=== PATIENT | female | born 1950 | race Caucasian/White ===

== ENCOUNTER 2016-08-23 09:01 | Emergency (ER) | payer OTHER ==
[~2016-08-23] VITALS: Ht 160 cm; Wt 60.0 kg
[2016-08-23 09:12] VITALS: Ht 160 cm; Wt 60.0 kg
[2016-08-23] MEDS ORDERED: ACETAMINOPHEN 325 MG TAB PO ONE (11:00)
--- NOTE | 2016-08-23 11:37 | RADRPT ---
PROCEDURE: XR Elbow. CLINICAL INDICATION: Pain TECHNIQUE: AP, lateral and oblique views of the right elbow performed. COMPARISON: None. FINDINGS: There is normal mineralization and alignment. No fracture or osseous lesion is identified. There are normal joints without evidence of arthritis or effusion. The soft tissues are unremarkable. IMPRESSION: Unremarkable examination. RPTAT: AA .Gertrude Martinez MD, Date Time Electronically viewed and signed by .Gertrude Martinez MD, MD on 08/23/2016 11:36 .Ludwig/
[2016-08-23] MEDS ORDERED: ACET325T33 PO (11:40)
--- NOTE | 2016-08-23 11:47 | ERD ---
ER Documentation Chief Complaint Date/Time DATE: 08/23/16 TIME: 11:44 Chief Complaint RIGHT ARM PAIN HPI Patient is a 65-year-old female who presents with pain at her right elbow that radiates to her right forearm that began yesterday. She denies any trauma but states the pain woke up after she slept on it. Pain is 8 out of 10 and worse with movement. She denies any numbness or tingling. She denies any chest pain or shortness of breath. She takes Tylenol at home which temporarily helps with the pain. Denies any fever, redness, or swelling ROS All systems reviewed and are negative except as per history of present illness. Medications Home Meds Active Scripts Acetaminophen* (Tylenol*) 325 Mg Tablet, 2 TAB PO Q6 Y for PAIN AND OR ELEVATED TEMP, #30 TAB Prov:JARAD RICARDO PA-C 08/23/16 Allergies Allergies: Coded Allergies: vancomycin (Unverified Allergy, Severe, TACHYCARDIA AND SWELLING, 04/14/16) hydrocodone (Verified Allergy, Intermediate, 04/14/16) NAUSEA tramadol (Verified Allergy, Intermediate, 04/14/16) NAUSEA codeine (Verified Allergy, Mild, DIAPHORESIS, 04/14/16) naproxen (Unverified Allergy, Unknown, REDNESS, DIAPHORESIS, 04/14/16) PMhx/Soc History of Surgery: No (hernia,utrine surgery) Anesthesia Reaction: No Hx 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 Disorder: No Hx Respiratory Disorders: No Hx Cardiac Disorders: No Hx Psychiatric Problems: No Hx Miscellaneous Medical Probl: No Hx Alcohol Use: No Hx Substance Use: No Hx Tobacco Use: No FmHx Family History: No diabetes Physical Exam Vitals Vital Signs Date Time Temp Pulse Resp B/P Pulse Ox O2 Delivery O2 Flow Rate FiO2 08/23/16 09:12 98.6 72 19 133/63 98 Physical Exam General: well developed, well nourished, alert, nontoxic, no distress Head: normocephalic, atraumatic Neck: Supple, nontender, no lymphadenopathy, no midline tenderness Respiratory: Clear to auscaultation bilaterally, speaks in full sentences, no use of accesory muscles or labored breathing, no rales, ronchi, or wheezing Cardiovascular: RRR, No murmurs Extremities: Right arm: Full range of motion in elbow, no bony abnormalities, sensation to light touch intact, no erythema tenderness or induration throughout right upper extremity. Able to make a fist, capillary refill less than 2 seconds, radial pulse 2+ Results 24 hrs Current Medications Medications (Trade) Dose Ordered Sig/Juana Route PRN Reason Start Time Stop Time Status Last Admin Dose Admin Acetaminophen (Tylenol Tab) 650 mg ONCE ONCE PO 08/23/16 11:00 08/23/16 11:02 DC 08/23/16 11:22 Procedures/MDM Patient presents with pain in her right upper extremity. Her examination has no concern for infectious etiology including cellulitis or deep space infection. Furthermore low suspicion for DVT. Patient's vital signs are all within normal limits that she is well-appearing in no distress. She was given Tylenol here in the emergency room and an x-ray was obtained of the elbow which was unremarkable. Patient was placed in a sling for comfort discharged with prescription for Tylenol and copy of radiology report so that she can follow up with her primary care doctor.Recommended this patient follow up with her primary care doctor within 48 hours or return to the emergency room for any worsening of symptoms. However this time I do believe there is suitable for outpatient management. I answered all their questions and they agreed with the plan and were discharged home. Departure Diagnosis: Primary Impression: Myalgia Condition: Stable Patient Instructions: Myalgias Additional Instructions: Call your primary care doctor TOMORROW for an appointment during the next 1-2 days.See the doctor sooner or return here if your condition worsens before your appointment time. JARAD RICARDO PA-C Aug 23, 2016 11:47
== END 2016-08-23 12:00 | disposition home or self-care (01) ==
LOC: FTE 09:01
DX: M79.1 Myalgia (principal)
CPT/HCPCS: 73080; Z7502; Z7610

== ENCOUNTER 2016-08-29 08:59 | Inpatient (IN) | payer OTHER ==
[2016-08-28 09:07] VITALS: BMI 18.3
[2016-08-29] VITALS (18 sets, daily range): BP systolic 100–128; BP diastolic 48–70; PULSE 56–80; RESP 17–26; Ht 160 cm; Wt 43.0 kg
[~2016-08-29] VITALS: Ht 160 cm; Wt 43.0 kg
[2016-08-29] MEDS: SOD CHLORIDE 0.9% 1,000 ML IV SCH ×2 (07:30→20:50)
[~2016-08-29 08:59] MED LIST: ACET325T33 PO; AMPICILLIN/SULB 3 GM/NS (PMX) 100 ML IVPB ONE; CEFAZOLIN 1 GM INJ ONE; GLYCOPYRROLATE 0.4 MG INJ ONE; LIDOCAINE 2% (SDV) 5 ML INJ ONE; NEOSTIGMINE 3 MG/3 ML SYRINGE ONE; PROPOFOL 200 MG INJ ONE; ROCURONIUM 50 MG INJ ONE; SUCCINYLCHOLINE CHLORIDE 100 MG/5 ML SYG IV ONE
--- NOTE | 2016-08-29 10:33 | RADRPT ---
PROCEDURE: XR Chest. CLINICAL INDICATION: Preoperative. TECHNIQUE: Single frontal view. COMPARISON: 07/11/2016. FINDINGS: The lungs are clear. The heart size is normal. There is no pleural effusion. There is no pneumothorax. IMPRESSION: 1. Normal chest radiograph. RPTAT: QQ .Logan Decker MD, MD Date Time Electronically viewed and signed by .Logan Decker MD, on 08/29/2016 10:33 .R/
[2016-08-29 10:59] LABS: BASOPHILS % 0.2 % (0.0-2.0); EOSINOPHILS # 0.1 10^3/ul (0.0-0.5); EOSINOPHILS % 1.3 % (0.0-7.0); HEMOGLOBIN 11.6 g/dl (12.0-16.0); LYMPHOCYTES # 0.9 10^3/ul (0.8-2.9); LYMPHOCYTES % 20.3 % (15.0-51.0); MEAN CORPUSCULAR HEMOGLOBIN 31.5 pg (29.0-33.0); MEAN CORPUSCULAR HGB CONC 34.1 g/dl (32.0-37.0); MEAN CORPUSCULAR VOLUME 92.4 fl (82.0-101.0); MEAN PLATELET VOLUME 6.3 fl (7.4-10.4); MONOCYTE # 0.4 10^3/ul (0.3-0.9); MONOCYTES % 8.3 % (0.0-11.0); NEUTROPHILS % 69.9 % (39.0-77.0); PLATELET COUNT 266 10^3/UL (140-440); RED BLOOD COUNT 3.68 10^6/ul (4.20-5.40); RED CELL DISTRIBUTION WIDTH 13.1 % (11.5-14.5); UNCORRECTED WBC 4.4 10^3/ul (4.8-10.8); WHITE BLOOD COUNT 4.4 10^3/ul (4.8-10.8)
[2016-08-29 11:01] LABS: INR 1.01; PROTIME 13.3 Sec (12.2-14.2)
[2016-08-29 11:02] LABS: PARTIAL THROMBOPLASTIN TIME 29.2 Sec (25.0-35.0)
[2016-08-29 11:04] LABS: CONDITION 1
[2016-08-29 11:05] LABS: POTASSIUM 4.2 mmol/L (3.5-5.1)
[2016-08-29 11:06] LABS: CALCIUM 9.7 mg/dl (8.4-10.2); CREATININE 0.56 mg/dl (0.44-1.00)
[2016-08-29] MEDS ORDERED: FENTAnyl 50 MCG/ML VIAL ONE (11:40)
[2016-08-29] MEDS ORDERED: DEXAMETHASONE 4 MG/ML 1 ML INJ ONE (12:08)
[2016-08-29] MEDS ORDERED: HYDROmorphONE (0.2 MG/ML) 10ML SYG IV PRN ×2 (13:00)
[2016-08-29] MEDS ORDERED: MEPERIDINE 25 MG INJ IV PRN (13:00)
[2016-08-29] MEDS ORDERED: DIPHENHYDRAMINE 50 MG INJ IV PRN (13:00)
[2016-08-29] MEDS ORDERED: FENTAnyl 50 MCG/ML VIAL IV PRN ×2 (13:00)
[2016-08-29] MEDS: HYDROmorphONE (0.2 MG/ML) 10ML SYG IV PRN ×3 (14:48→15:06)
--- NOTE | 2016-08-29 15:19 | OPR ---
DATE OF OPERATION: 08/29/2016 PREOPERATIVE DIAGNOSIS: Rectal cancer. POSTOPERATIVE DIAGNOSIS: Rectal cancer. OPERATION PERFORMED: Low anterior resection of rectal cancer. Rigid sigmoidoscopy. ANESTHESIA: General. ANESTHESIOLOGIST: Dr. Gomez SURGEON: Tyler Martin MD NURSES' AIDE: Osmani Ceballos MD INDICATIONS FOR PROCEDURE: The patient is a 65-year-old female who presented with rectal bleeding. Workup, including colonoscopy, revealed a large rectal cancer approximately 8 cm from the dentate l ine. The patient had previously undergone anal exam under anesthesia and was deemed not a candidate for transanal resection. She was then counseled as to need for low anterior resection. She consen eleni and was scheduled for surgery. DESCRIPTION OF PROCEDURE: The patient was brought to the operating theater and placed under general endotracheal tube anesthesia. She was then placed in the lithotomy position. The abdomen was prep ped and draped in the usual sterile fashion. A lower midline incision was made from a point approxi mately 2 cm above the umbilicus, around the umbilicus, down to the symphysis pubis. The subcutaneou s tissue was dissected with cautery down to the rectus sheath. The linea alba was incised and the a bdomen was entered without difficulty. The fascia was then opened throughout the length of the inci layla. The Bookwalter retractor was placed and excellent exposure was obtained. There were moderate adhesions of the redundant sigmoid colon into the pelvis related to a previous section that were meticulously taken down. The left white line of Toldt was then incised to facilitate mobilizat ion of the left colon. The left ureter was identified and kept out of harm's way. Dissection marisol nued down to the sacral promontory. The rectum was then mobilized by taking down the vascular stock s both medially and laterally on the rectum, primarily using the LigaSure device. Additional dissec tion took place posteriorly and anteriorly until the rectum was fully mobilized. The tumor could be easily palpated. A suitable point of transection was identified at the distal sigmoid colon. It was transected with a EMIGDIO stapler. Further mobilization of the rectum took place. The contour TA stap ler was then used to transect the rectum distally. The attending pathologist came into the room and took the specimen and that margins were grossly clear. Preparations for reanastomosis were ma de. The staple line on the sigmoid colon was transected. It was evaluated and found that it could not accommodate a #29 EEA. Therefore, a #25 EEA was placed in it, with a pursestring suture tied ar ound it. At this point Dr. Martin went down below and an anastomosis was created using the EEA devic e in the standard fashion. The pelvis was then filled with warm saline and rigid sigmoidoscopy took place. There was no evidence of leak with insufflation. The sigmoidoscope was removed. The final irrigation and inspection took place. There was no evidence of bleeding. The Bookwalter retractor was removed. Lap, sponge and instrument counts were correct. The abdomen was then closed with #1 looped PDS sutures in running fashion. The skin incision was reapproximated with skin betty. The patient tolerated the procedure well. Estimated blood loss was 200 mL. There were no complication s and the patient was transported in stable condition to the recovery room. Dictated By: TYLER HERNÁNDEZ/KT Conf#: [id number] DID#: [id number]
[2016-08-29] MEDS: D5W-0.45 NACL + KCL 20 MEQ 1,000 ML IV SCH ×2 (15:56→22:30)
[2016-08-29] MEDS ORDERED: morphine 1 MG/ML 30 ML (PCA) IV SCH (17:00)
[2016-08-29] MEDS ORDERED: NALOXONE (0.4 MG/ML) INJ IV PRN (17:00)
[2016-08-29] MEDS ORDERED: HYDROmorphONE 1 MG/ML SYG IV PRN (17:30)
[2016-08-29] MEDS: HYDROmorphONE 1 MG/ML SYG IV PRN (18:04)
--- NOTE | 2016-08-29 18:57 | HP ---
DATE OF ADMISSION: 08/29/2016 HISTORY OF PRESENT ILLNESS: The patient is a 65-year-old female well known to me from previous admi ssion. The patient has history of rectal cancer and was admitted initially back in July 2016 an d underwent excision of rectal mass. The patient was being seen by Dr. Martin as an outpatient and h as been admitted today after she underwent low anterior resection of rectal cancer. The patient did have significant postoperative pain and is being started on IV Dilaudid. The patient, according to the family, cannot tolerate morphine. The patient denies any chest pain and is breathing comfortab ly. No cough, no leg pain or leg edema. No report of any focal weakness. REVIEW OF SYSTEMS: The patient, other than postoperative pain, had a negative review of systems. PAST MEDICAL HISTORY: As stated above. PAST SURGICAL HISTORY: The patient is status post left inguinal hernia repair, status post cystecto my, status post colonoscopy done by Dr. Carlos, which was positive for rectal mass. FAMILY HISTORY: Noncontributory. SOCIAL HISTORY: The patient lives at home with the family. No smoking, no alcohol. ALLERGIES: 1. CODEINE. 2. HYDROCODONE. 3. NAPROXEN. 4. TRAMADOL. 5. VANCOMYCIN. PHYSICAL EXAMINATION: GENERAL: The patient is sleepy but easily arousable and follows simple commands. VITAL SIGNS: Temperature 97, pulse 61, respirations 19, blood pressure 108/56, O2 saturation 97% on room air. HEENT: Conjunctivae and lids are normal. Oropharynx clear. NECK: Supple. No mass, no thyromegaly. LUNGS: Clear to auscultation. CARDIOVASCULAR: S1, S2 normal. No murmur. ABDOMEN: Soft, nondistended. EXTREMITIES: No leg edema. NEUROLOGIC: The patient is lethargic but arousable, follows simple commands and moves all extremiti es. LABORATORY DATA: WBC 4.4, hemoglobin 11.6, platelet 266. Chemistries: Sodium 145, potassium 4.2, B UN 25, creatinine 0.5, glucose 68. IMPRESSION: Rectal cancer status post low anterior resection. PLAN: The patient admitted on medical floor. The patient will kept n.p.o. and will be given IV Tyl enol, IV fluid, and IV Dilaudid. The patient will have SCD for DVT prophylaxis. Further recommenda tion will depend on hospital course. Dictated By: DARREL STEIN/KT Conf#: [id number] DID#: [id number]
[2016-08-29] MEDS: ONDANSETRON 4 MG INJ IV PRN (20:05)
[2016-08-29] MEDS: ACETAMINOPHEN 1000MG/100ML IV 100 ML IVPB PRN (20:14)
[2016-08-30] VITALS: BP 104/57; PULSE 72; RESP 18
[2016-08-30] MEDS: D5W-0.45 NACL + KCL 20 MEQ 1,000 ML IV SCH ×3 (00:28→19:58)
[2016-08-30 05:32] VITALS: BP 100/54; PULSE 66; RESP 18
[2016-08-30] MEDS: ACETAMINOPHEN 1000MG/100ML IV 100 ML IVPB PRN ×2 (05:32→17:52)
[2016-08-30 07:23] VITALS: BP 106/53; RESP 18
[2016-08-30 09:53] LABS: BASOPHILS % 0.1 % (0.0-2.0); EOSINOPHILS % 0.1 % (0.0-7.0); HEMATOCRIT 26.5 % (37.0-47.0); HEMOGLOBIN 9.2 g/dl (12.0-16.0); LYMPHOCYTES # 1.5 10^3/ul (0.8-2.9); LYMPHOCYTES % 17.4 % (15.0-51.0); MEAN CORPUSCULAR HEMOGLOBIN 31.8 pg (29.0-33.0); MEAN CORPUSCULAR HGB CONC 34.8 g/dl (32.0-37.0); MEAN CORPUSCULAR VOLUME 91.3 fl (82.0-101.0); MEAN PLATELET VOLUME 6.4 fl (7.4-10.4); MONOCYTE # 1.1 10^3/ul (0.3-0.9); NEUTROPHILS % 69.4 % (39.0-77.0); PLATELET COUNT 270 10^3/UL (140-440); RED BLOOD COUNT 2.91 10^6/ul (4.20-5.40); RED CELL DISTRIBUTION WIDTH 13.4 % (11.5-14.5); UNCORRECTED WBC 8.7 10^3/ul (4.8-10.8); WHITE BLOOD COUNT 8.7 10^3/ul (4.8-10.8)
[2016-08-30 09:57] LABS: CONDITION 1
[2016-08-30 10:01] LABS: POTASSIUM 4.8 mmol/L (3.5-5.1)
[2016-08-30 10:03] LABS: CREATININE 0.58 mg/dl (0.44-1.00)
[2016-08-30 10:04] LABS: PHOSPHORUS 2.8 mg/dl (2.5-4.9)
[2016-08-30 10:05] LABS: CALCIUM 8.6 mg/dl (8.4-10.2); MAGNESIUM 1.8 mg/dl (1.7-2.5)
[2016-08-30] MEDS: HYDROmorphONE 1 MG/ML SYG IV PRN (10:31)
[2016-08-30] MEDS: ONDANSETRON 4 MG INJ IV PRN (14:22)
[2016-08-30 14:26] VITALS: BP 118/58; PULSE 65; RESP 18
--- NOTE | 2016-08-30 14:58 | PN ---
Date/Time of Note Date/Time of Note DATE: 08/30/16 TIME: 14:53 Assessment/Plan VTE Prophylaxis VTE Prophylaxis Intervention: SCD's Lines/Catheters IV Catheter Type (from Nrs): Peripheral IV Urinary Cath still in place: Yes Assessment/Plan Assessment/Plan 1.Rectal cancer 2. Rigid sigmoidoscopy. - per surgery - n.p.o. and will be given IV Tylenol, IV fluid, and IV Dilaudid 3. Low anterior resection of rectal cancer. SCD for DVT prophylaxis. Further recommendation will depend on hospital course.shar Dior Exam/Review of Systems Vital Signs Vitals Vital Signs Date Time Temp Pulse Resp B/P Pulse Ox O2 Delivery O2 Flow Rate FiO2 08/30/16 14:26 98.1 65 18 118/58 100 Nasal Cannula 2.0 Intake and Output 08/29/16 08/29/16 08/30/16 15:00 23:00 07:00 Intake Total 1400 ml 400 ml 1300 ml Output Total 310 ml 600 ml Balance 1090 ml 400 ml 700 ml Exam Constitutional: alert, well developed Psych: nl mood/affect Head: atraumatic Eyes: EOMI ENMT: nl external ears & nose Neck: non-tender Respiratory: diminished breath sounds Cardiovascular: nl pulses Gastrointestinal: non-tender, soft Musculoskeletal: nl extremities to inspection Extremities: normal pulses 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: 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, nl speech Skin: other Lymph: nontender Results Result Diagram: 08/30/1692708/30/16927 Results 24 hrs Laboratory Tests Test 08/30/16 09:28 Anion Gap 12 # Basophils # 0.0 Basophils % 0.1 Blood Morphology Comment Blood Urea Nitrogen 15 # Calcium Level 8.6 Carbon Dioxide Level 28 Chloride Level 105 Creatinine 0.58 Eosinophils # 0.0 Eosinophils % 0.1 Glucose Level 148 # Hematocrit 26.5 #L Hemoglobin 9.2 #L Lymphocytes # 1.5 Lymphocytes % 17.4 Magnesium Level 1.8 Mean Corpuscular Hemoglobin 31.8 Mean Corpuscular Hemoglobin Concent 34.8 Mean Corpuscular Volume 91.3 Mean Platelet Volume 6.4 L Monocytes # 1.1 H Monocytes % 13.0 H Neutrophils # 6.0 Neutrophils % 69.4 Nucleated Red Blood Cells # 0.0 Nucleated Red Blood Cells % 0.0 Phosphorus Level 2.8 Platelet Count 270 Potassium Level 4.8 Red Blood Count 2.91 #L Red Cell Distribution Width 13.4 Sodium Level 140 White Blood Count 8.7 # Medications Medications Current Medications Ondansetron HCl 4 mg 4 mg Q6H PRN IV NAUSEA AND/OR VOMITING Last administered on 08/30/16 14:22; Admin Dose 4 MG; Start 08/29/16 at 14:30 Potassium Chloride/Dextrose/ Sod Cl 1,000 ml @ 125 mls/hr Q8H IV Last administered on 08/30/16 10:33; Admin Dose 125 MLS/HR; Start 08/29/16 at 14:30 Acetaminophen (Ofirmev 1000mg/ 100ml Iv) 100 ml @ 400 mls/hr Q6H PRN IVPB PAIN Last administered on 08/30/16 05:32; Admin Dose 400 MLS/HR; Start at 14:30 Naloxone HCl (Narcan) 0.2 mg Q2M PRN IV DECREASED REPIRATORY RATE; Start at 17:00 Hydromorphone HCl (Dilaudid) 0.5 mg Q3H PRN IV PAIN LEVEL 1-5; Start 08/29/16 at 17:30 Hydromorphone HCl (Dilaudid) 1 mg Q3H PRN IV PAIN LEVEL 6-10 Last administered on 08/30/16 10:31; Admin Dose 1 MG; Start 08/29/16 at 17:30 MESHA VELASQUEZ Aug 30, 2016 14:58
[2016-08-30] MEDS ORDERED: PANTOPRAZOLE 40 MG INJ IV ONE (15:00)
[2016-08-30] MEDS ORDERED: FAMOTIDINE 20 MG INJ IV SCH (15:00)
[2016-08-30] MEDS: PANTOPRAZOLE 40 MG INJ IV SCH (16:07)
[2016-08-30 19:14] VITALS: BP 101/59; RESP 18
[2016-08-30 23:00] VITALS: BP 108/56; PULSE 70; RESP 18
[2016-08-31] MEDS: ACETAMINOPHEN 1000MG/100ML IV 100 ML IVPB PRN ×3 (02:42→16:07)
--- NOTE | 2016-08-31 04:58 | PN ---
DATE: 08/30/2016 SUBJECTIVE: The patient does not have any complaint. No vomiting. She has been out of bed in [facility]. OBJECTIVE: The patient is status post low anterior resection of the colon for the cancer. the astrid ent is alert and awake. VITAL SIGNS: Temperature is 98.1, heart rate 65, respiration 18, blood pressure 118/58, saturation 100% on 2 liters nasal cannula. ABDOMEN: Soft. GENITOURINARY: Khan catheter is in place. Urine output is adequate. EXTREMITIES: Sequential compression device over the legs. RESPIRATORY: The patient is using incentive spirometry. ABDOMEN: Soft. Bowel sounds are hypoactive. LABORATORY DATA: WBC is 8700, hemoglobin is 9.2, hematocrit is 26.5. Before the operation, it was 11.6 and 34. Chemistry: Potassium is 4. Otherwise, it is within normal limits. BUN is 15, creati nine 0.58. ASSESSMENT AND PLAN: Satisfactory postop day #1 for low anterior resection of cancer of colon statu s post laparotomy. PLAN: Continue current care. Dictated By: JOHN BURGOS MD PS/NTS Conf#: [id number] DID#: [id number]
[2016-08-31] MEDS: D5W-0.45 NACL + KCL 20 MEQ 1,000 ML IV SCH ×3 (05:13→20:00)
[2016-08-31 05:14] LABS: BASOPHILS % 0.3 % (0.0-2.0); EOSINOPHILS % 0.4 % (0.0-7.0); HEMATOCRIT 25.6 % (37.0-47.0); HEMOGLOBIN 8.9 g/dl (12.0-16.0); LYMPHOCYTES # 1.3 10^3/ul (0.8-2.9); LYMPHOCYTES % 17.5 % (15.0-51.0); MEAN CORPUSCULAR HEMOGLOBIN 31.9 pg (29.0-33.0); MEAN CORPUSCULAR HGB CONC 34.8 g/dl (32.0-37.0); MEAN CORPUSCULAR VOLUME 91.7 fl (82.0-101.0); MEAN PLATELET VOLUME 6.2 fl (7.4-10.4); MONOCYTE # 0.6 10^3/ul (0.3-0.9); MONOCYTES % 8.2 % (0.0-11.0); NEUTROPHIL # 5.3 10^3/ul (1.6-7.5); NEUTROPHILS % 73.6 % (39.0-77.0); PLATELET COUNT 248 10^3/UL (140-440); RED BLOOD COUNT 2.79 10^6/ul (4.20-5.40); RED CELL DISTRIBUTION WIDTH 13.9 % (11.5-14.5); UNCORRECTED WBC 7.2 10^3/ul (4.8-10.8); WHITE BLOOD COUNT 7.2 10^3/ul (4.8-10.8)
[2016-08-31] MEDS: PANTOPRAZOLE 40 MG INJ IV SCH (05:14)
[2016-08-31 05:18] LABS: POTASSIUM 4.1 mmol/L (3.5-5.1)
[2016-08-31 05:21] VITALS: BP 116/57; PULSE 72; RESP 16
[2016-08-31 05:21] LABS: CALCIUM 8.7 mg/dl (8.4-10.2); CREATININE 0.5 mg/dl (0.44-1.00)
[2016-08-31 05:50] LABS: CONDITION 1
[2016-08-31 07:29] VITALS: BP 127/65; RESP 18
[2016-08-31 10:35] LABS: POTASSIUM 3.9 mmol/L (3.5-5.1)
[2016-08-31 10:38] LABS: BASOPHILS % 0.3 % (0.0-2.0); CREATININE 0.51 mg/dl (0.44-1.00); EOSINOPHILS % 0.6 % (0.0-7.0); HEMATOCRIT 25.6 % (37.0-47.0); HEMOGLOBIN 8.8 g/dl (12.0-16.0); LYMPHOCYTES # 1.4 10^3/ul (0.8-2.9); MEAN CORPUSCULAR HEMOGLOBIN 31.6 pg (29.0-33.0); MEAN CORPUSCULAR HGB CONC 34.3 g/dl (32.0-37.0); MEAN PLATELET VOLUME 6.4 fl (7.4-10.4); MONOCYTE # 0.6 10^3/ul (0.3-0.9); MONOCYTES % 8.6 % (0.0-11.0); NEUTROPHIL # 5.2 10^3/ul (1.6-7.5); NEUTROPHILS % 71.5 % (39.0-77.0); PLATELET COUNT 243 10^3/UL (140-440); RED BLOOD COUNT 2.78 10^6/ul (4.20-5.40); RED CELL DISTRIBUTION WIDTH 13.2 % (11.5-14.5); UNCORRECTED WBC 7.3 10^3/ul (4.8-10.8); WHITE BLOOD COUNT 7.3 10^3/ul (4.8-10.8)
[2016-08-31 10:39] LABS: CALCIUM 8.6 mg/dl (8.4-10.2); MAGNESIUM 1.9 mg/dl (1.7-2.5); PHOSPHORUS 2.1 mg/dl (2.5-4.9)
[2016-08-31 10:40] LABS: CONDITION 1
--- NOTE | 2016-08-31 12:01 | PN ---
Date/Time of Note Date/Time of Note DATE: 08/31/16 TIME: 12:00 Assessment/Plan VTE Prophylaxis VTE Prophylaxis Intervention: SCD's Lines/Catheters IV Catheter Type (from Nrs): Peripheral IV Urinary Cath still in place: No Assessment/Plan Assessment/Plan 1.Rectal cancer 2. Rigid sigmoidoscopy. - per surgery - n.p.o. and will be given IV Tylenol, IV fluid, and IV Dilaudid 3. Low anterior resection of rectal cancer. SCD for DVT prophylaxis. Further recommendation will depend on hospital course.shar Dior Subjective 24 Hr Interval Summary Constitutional: improved Eyes: no complaints ENT: no complaints Respiratory: no complaints Cardiovascular: no complaints Gastrointestinal: no complaints Genitourinary: no complaints Musculoskeletal: no complaints Skin: no complaints Neurologic: no complaints Endocrine: no complaints Immunologic: no complaints Exam/Review of Systems Vital Signs Vitals Vital Signs Date Time Temp Pulse Resp B/P Pulse Ox O2 Delivery O2 Flow Rate FiO2 08/31/16 07:29 98.1 74 18 127/65 97 08/31/16 05:21 Room Air 08/30/16 14:26 2.0 Intake and Output 08/30/16 08/30/16 08/31/16 15:00 23:00 07:00 Intake Total 1600 ml 1100 ml Output Total 1900 ml 2200 ml Balance -300 ml -1100 ml Exam Constitutional: alert, well developed Psych: nl mood/affect Head: atraumatic Eyes: EOMI, PERRL, nl sclera ENMT: nl external ears & nose Respiratory: clear to auscultation Cardiovascular: nl pulses Gastrointestinal: non-tender, soft Musculoskeletal: nl extremities to inspection 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: 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, nl speech Skin: nl turgor Lymph: nontender Results Result Diagram: 08/31/16 1004 08/31/16 1004 Results 24 hrs Laboratory Tests Test 08/31/16 04:33 08/31/16 10:04 Anion Gap 10 10 Basophils # 0.0 0.0 Basophils % 0.3 0.3 Blood Morphology Comment Blood Urea Nitrogen 6 #L 5 L Calcium Level 8.7 8.6 Carbon Dioxide Level 30 31 Chloride Level 106 105 Creatinine 0.50 0.51 Eosinophils # 0.0 0.0 Eosinophils % 0.4 0.6 Glucose Level 122 133 Hematocrit 25.6 L 25.6 L Hemoglobin 8.9 L 8.8 L Lymphocytes # 1.3 1.4 Lymphocytes % 17.5 19.0 Mean Corpuscular Hemoglobin 31.9 31.6 Mean Corpuscular Hemoglobin Concent 34.8 34.3 Mean Corpuscular Volume 91.7 92.0 Mean Platelet Volume 6.2 L 6.4 L Monocytes # 0.6 0.6 Monocytes % 8.2 8.6 Neutrophils # 5.3 5.2 Neutrophils % 73.6 71.5 Nucleated Red Blood Cells # 0.0 0.0 Nucleated Red Blood Cells % 0.0 0.0 Platelet Count 248 243 Potassium Level 4.1 3.9 Red Blood Count 2.79 L 2.78 L Red Cell Distribution Width 13.9 13.2 Sodium Level 142 142 White Blood Count 7.2 7.3 Magnesium Level 1.9 Phosphorus Level 2.1 L Medications Medications Current Medications Ondansetron HCl 4 mg 4 mg Q6H PRN IV NAUSEA AND/OR VOMITING Last administered on 08/30/16 14:22; Admin Dose 4 MG; Start 08/29/16 at 14:30 Potassium Chloride/Dextrose/ Sod Cl 1,000 ml @ 125 mls/hr Q8H IV Last administered on 08/31/16 05:13; Admin Dose 125 MLS/HR; Start 08/29/16 at 14:30 Acetaminophen (Ofirmev 1000mg/ 100ml Iv) 100 ml @ 400 mls/hr Q6H PRN IVPB PAIN Last administered on 08/31/16 10:08; Admin Dose 400 MLS/HR; Start at 14:30 Naloxone HCl (Narcan) 0.2 mg Q2M PRN IV DECREASED REPIRATORY RATE; Start at 17:00 Hydromorphone HCl (Dilaudid) 0.5 mg Q3H PRN IV PAIN LEVEL 1-5; Start 08/29/16 at 17:30 Hydromorphone HCl (Dilaudid) 1 mg Q3H PRN IV PAIN LEVEL 6-10 Last administered on 08/30/16 10:31; Admin Dose 1 MG; Start 08/29/16 at 17:30 Pantoprazole (Protonix Iv) 40 mg DAILY@06 IV Last administered on 08/31/16 05: 14; Admin Dose 40 MG; Start 08/31/16 at 06:00 MESHA VELASQUEZ Aug 31, 2016 12:01
--- NOTE | 2016-08-31 14:02 | RADRPT ---
Vent Rate: 61 bpm RR Interval: 0 msec DC Interval: 174 msec QRS Duration: 86 msec QT Interval: 462 msec QTC Interval: 465 msec P-R-T Allison: 64 - 78 - 71 degrees Normal sinus rhythm Normal ECG Electronically Signed By: Lucas Ayala [id number]
--- NOTE | 2016-08-31 19:24 | PN ---
DATE: Postop day #2. SUBJECTIVE: No specific complaints. Negative bowel movement. Negative flatus. No nausea, no vomi ting. Has been out of bed, sitting in chair. OBJECTIVE VITAL SIGNS: 98.1, 74, 18, 127/65, 97% saturation at room air. WBC 7300, 71% segmented, hemoglobin is 8.8, hematocrit 25.6. Practically has been stable since oper ation. ABDOMEN: Soft. Dressing is intact. LOWER EXTREMITIES: No calf tenderness. No pitting edema. CHEST: Lungs are clear to auscultation. HEART: Regular rhythm. ASSESSMENT AND PLAN: Postop day #2 status post low anterior resection. The patient is stable. Fol ey catheter and sequential compression devices in place. When she becomes fully ambulated, we will discontinue the Khan. We will start diet when the patient starts passing gas. Dictated By: JOHN BURGOS MD PS/NTS Conf#: [id number] DID#: [id number]
[2016-08-31 19:30] VITALS: BP 122/59; RESP 18
[2016-09-01] MEDS: ACETAMINOPHEN 1000MG/100ML IV 100 ML IVPB PRN ×3 (02:51→18:20)
[2016-09-01 05:26] LABS: BASOPHILS % 0.4 % (0.0-2.0); CREATININE 0.45 mg/dl (0.44-1.00); EOSINOPHILS # 0.1 10^3/ul (0.0-0.5); EOSINOPHILS % 2.1 % (0.0-7.0); HEMATOCRIT 25.4 % (37.0-47.0); LYMPHOCYTES # 1.1 10^3/ul (0.8-2.9); LYMPHOCYTES % 17.5 % (15.0-51.0); MEAN CORPUSCULAR HEMOGLOBIN 32.2 pg (29.0-33.0); MEAN CORPUSCULAR HGB CONC 35.4 g/dl (32.0-37.0); MEAN PLATELET VOLUME 6.4 fl (7.4-10.4); MONOCYTE # 0.5 10^3/ul (0.3-0.9); MONOCYTES % 7.5 % (0.0-11.0); NEUTROPHIL # 4.6 10^3/ul (1.6-7.5); NEUTROPHILS % 72.5 % (39.0-77.0); PLATELET COUNT 256 10^3/UL (140-440); RED BLOOD COUNT 2.79 10^6/ul (4.20-5.40); RED CELL DISTRIBUTION WIDTH 13.6 % (11.5-14.5); UNCORRECTED WBC 6.4 10^3/ul (4.8-10.8); WHITE BLOOD COUNT 6.4 10^3/ul (4.8-10.8)
[2016-09-01 05:27] LABS: CALCIUM 8.9 mg/dl (8.4-10.2); PHOSPHORUS 2.6 mg/dl (2.5-4.9)
[2016-09-01] MEDS: PANTOPRAZOLE 40 MG INJ IV SCH (05:53)
[2016-09-01] MEDS: D5W-0.45 NACL + KCL 20 MEQ 1,000 ML IV SCH ×3 (05:53→20:08)
[2016-09-01 05:55] LABS: CONDITION 1
[2016-09-01 07:47] VITALS: BP 120/75; RESP 18
[2016-09-01 13:40] VITALS: BP 118/60; PULSE 68; RESP 16
--- NOTE | 2016-09-01 15:33 | PN ---
Date/Time of Note Date/Time of Note DATE: 09/01/16 TIME: 15:29 Assessment/Plan VTE Prophylaxis VTE Prophylaxis Intervention: SCD's Lines/Catheters IV C[facility] Type [facility]from [facility] Peripheral IV Urinary Cath still in place: No Assessment/Plan Chief Complaint/Hosp Course Assessment and plan Rectal cancer, status post low anterior resection. Advance diet per surgery. DC Khan catheter. Incentive spirometer every hour while patient is awake. IV fluids while patient is n.p.o. Sequential compression device for deep venous thrombosis prophylaxis. Protonix for peptic ulcer disease prophylaxis. Further recommendations based on clinical course. Plan of care discussed with Dr. Dior. Problems: Subjective 24 Hr Interval Summary Free Text/Dictation Patient is able to ambulate, pain is well controlled, bowel sounds are hypoactive, patient stated that she is hungry, negative flatus. Will DC Khan, monitor urine output. Exam/Review of Systems Vital Signs Vitals Vital Signs Date Time Temp Pulse Resp B/P Pulse Ox O2 Delivery O2 Flow Rate FiO2 09/01/16 13:40 98.0 68 16 118/60 97 Room Air 08/30/16 14:26 2.0 Intake and Output 08/31/16 08/31/16 09/01/16 15:00 23:00 07:00 Intake Total 1050 ml 100 ml 1600 ml Output Total 2140 ml Balance 1050 ml 100 ml -540 ml Exam Constitutional: alert, oriented Psych: no complaints Head: atraumatic, normocephalic Eyes: nl conjunctiva ENMT: nl external ears & nose Neck: non-tender, supple Respiratory: clear to auscultation, normal air movement Cardiovascular: nl pulses, regular rate and rhythm Gastrointestinal: other (Status post surgery), soft Musculoskeletal: nl extremities to inspection Extremities: normal pulses 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: LEARNING DEVELOPER II-XII intact Results Result Diagram: 09/01/1642409/01/16 042 Results 24 hrs Laboratory Tests Test 09/01/16 04:25 Anion Gap 11 Basophils # 0.0 Basophils % 0.4 Blood Morphology Comment Blood Urea Nitrogen 3 L Calcium Level 8.9 Carbon Dioxide Level 30 Chloride Level 106 Creatinine 0.45 Eosinophils # 0.1 Eosinophils % 2.1 Glucose Level 129 Hematocrit 25.4 L Hemoglobin 9.0 L Lymphocytes # 1.1 Lymphocytes % 17.5 Magnesium Level 2.0 Mean Corpuscular Hemoglobin 32.2 Mean Corpuscular Hemoglobin Concent 35.4 Mean Corpuscular Volume 91.0 Mean Platelet Volume 6.4 L Monocytes # 0.5 Monocytes % 7.5 Neutrophils # 4.6 Neutrophils % 72.5 Nucleated Red Blood Cells # 0.0 Nucleated Red Blood Cells % 0.0 Phosphorus Level 2.6 Platelet Count 256 Potassium Level 4.0 Red Blood Count 2.79 L Red Cell Distribution Width 13.6 Sodium Level 143 White Blood Count 6.4 Medications Medications Current Medications Ondansetron HCl 4 mg 4 mg Q6H PRN IV NAUSEA AND/OR VOMITING Last administered on 08/30/16 14:22; Admin Dose 4 MG; Start 08/29/16 at 14:30 Potassium Chloride/Dextrose/ Sod Cl 1,000 ml @ 125 mls/hr Q8H IV Last administered on 09/01/16 14:34; Admin Dose 125 MLS/HR; Start 08/29/16 at 14:30 Acetaminophen (Ofirmev 1000mg/ 100ml Iv) 100 ml @ 400 mls/hr Q6H PRN IVPB PAIN Last administered on 09/01/16 10:11; Admin Dose 400 MLS/HR; Start at 14:30 Naloxone HCl (Narcan) 0.2 mg Q2M PRN IV DECREASED REPIRATORY RATE; Start at 17:00 Hydromorphone HCl (Dilaudid) 0.5 mg Q3H PRN IV PAIN LEVEL 1-5; Start 08/29/16 at 17:30 Hydromorphone HCl (Dilaudid) 1 mg Q3H PRN IV PAIN LEVEL 6-10 Last administered on 08/30/16 10:31; Admin Dose 1 MG; Start 08/29/16 at 17:30 Pantoprazole (Protonix Iv) 40 mg DAILY@06 IV Last administered on 09/01/16 05: 53; Admin Dose 40 MG; Start 08/31/16 at 06:00 WINDY EMERY Sep 01, 2016 15:33
[2016-09-01 19:41] VITALS: BP 135/62; RESP 17
--- NOTE | 2016-09-01 21:37 | PN ---
DATE: 09/01/2016 SUBJECTIVE: Does not have any complaint. No nausea, no vomiting, no BM. Has not passed gas yet. Has been up and around a little bit. Used narcotics only once today for pain. OBJECTIVE: VITAL SIGNS: 98, 68, 16, 118/60, and 97% room air. ABDOMEN: Quite soft. LOWER EXTREMITIES: No pitting edema, no calf tenderness. LABORATORY DATA: WBC 6400, hemoglobin 9, hematocrit 25.4. BUN is 3, creatinine 0.45. ASSESSMENT: Postoperative day #3. The patient is very stable postoperatively, but fortunately has not passed any gas and no bowel movement yet. PLAN: Discontinue Khan catheter tomorrow morning. Hopefully, start her on clear liquids. Dictated By: JOHN BURGOS MD PS/NTS Conf#: [id number] DID#: [id number] CC: STAR CORTEZ MD;*EndCC*
[2016-09-02] MEDS: ACETAMINOPHEN 1000MG/100ML IV 100 ML IVPB PRN ×2 (04:39→11:49)
[2016-09-02] MEDS: PANTOPRAZOLE 40 MG INJ IV SCH (04:39)
[2016-09-02] MEDS: D5W-0.45 NACL + KCL 20 MEQ 1,000 ML IV SCH ×3 (04:40→22:07)
[2016-09-02 05:45] LABS: POTASSIUM 4.2 mmol/L (3.5-5.1)
[2016-09-02 05:47] LABS: CREATININE 0.42 mg/dl (0.44-1.00)
[2016-09-02 05:48] LABS: CALCIUM 8.8 mg/dl (8.4-10.2)
[2016-09-02 06:19] LABS: BASOPHILS % 0.5 % (0.0-2.0); EOSINOPHILS # 0.2 10^3/ul (0.0-0.5); EOSINOPHILS % 3.7 % (0.0-7.0); HEMATOCRIT 25.9 % (37.0-47.0); HEMOGLOBIN 8.9 g/dl (12.0-16.0); LYMPHOCYTES # 1.2 10^3/ul (0.8-2.9); LYMPHOCYTES % 21.8 % (15.0-51.0); MEAN CORPUSCULAR HEMOGLOBIN 32.3 pg (29.0-33.0); MEAN CORPUSCULAR HGB CONC 34.5 g/dl (32.0-37.0); MEAN CORPUSCULAR VOLUME 93.6 fl (82.0-101.0); MEAN PLATELET VOLUME 6.4 fl (7.4-10.4); MONOCYTE # 0.4 10^3/ul (0.3-0.9); MONOCYTES % 6.9 % (0.0-11.0); NEUTROPHIL # 3.7 10^3/ul (1.6-7.5); NEUTROPHILS % 67.1 % (39.0-77.0); PLATELET COUNT 276 10^3/UL (140-440); RED BLOOD COUNT 2.76 10^6/ul (4.20-5.40); RED CELL DISTRIBUTION WIDTH 13.2 % (11.5-14.5); UNCORRECTED WBC 5.5 10^3/ul (4.8-10.8); WHITE BLOOD COUNT 5.5 10^3/ul (4.8-10.8)
[2016-09-02 06:53] LABS: CONDITION 1
[2016-09-02 07:33] VITALS: BP 103/57; RESP 19
--- NOTE | 2016-09-02 17:27 | PN ---
Date/Time of Note Date/Time of Note DATE: 09/02/16 TIME: 17:26 Assessment/Plan VTE Prophylaxis VTE Prophylaxis Intervention: SCD's Lines/Catheters IV Catheter Type (from Nrs): Peripheral IV Urinary Cath still in place: Yes Reason Cath still needed: urinary retention Assessment/Plan Chief Complaint/Hosp Course Assessment and plan Rectal cancer, status post low anterior resection. Advance diet per surgery. Incentive spirometer every hour while patient is awake. IV fluids while patient is n.p.o. Sequential compression device for deep venous thrombosis prophylaxis. Protonix for peptic ulcer disease prophylaxis. Further recommendations based on clinical course. Plan of care discussed with Dr. Dior. Problems: Subjective 24 Hr Interval Summary Free Text/Dictation Patient is able to void with no problems, ambulates in the hallway, hypoactive bowel sounds, negative flatus. Exam/Review of Systems Vital Signs Vitals Vital Signs Date Time Temp Pulse Resp B/P Pulse Ox O2 Delivery O2 Flow Rate FiO2 09/02/16 07:33 97.8 78 19 103/57 97 09/01/16 13:40 Room Air 08/30/16 14:26 2.0 Intake and Output 09/01/16 09/01/16 09/02/16 15:00 23:00 07:00 Intake Total 100 ml 1300 ml 1600 ml Output Total 1800 ml 1600 ml Balance 100 ml -500 ml 0 ml Exam Constitutional: alert, oriented Psych: no complaints Head: atraumatic, normocephalic Eyes: nl conjunctiva ENMT: nl external ears & nose Neck: non-tender, supple Respiratory: clear to auscultation, normal air movement Cardiovascular: nl pulses, regular rate and rhythm Gastrointestinal: other (Status post surgery), soft Musculoskeletal: nl extremities to inspection Extremities: normal pulses 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 Results Result Diagram: 09/02/168 09/02/16427 Results 24 hrs Laboratory Tests Test 09/02/16 04:28 Anion Gap 13 Basophils # 0.0 Basophils % 0.5 Blood Morphology Comment Blood Urea Nitrogen 5 L Calcium Level 8.8 Carbon Dioxide Level 29 Chloride Level 104 Creatinine 0.42 L Eosinophils # 0.2 Eosinophils % 3.7 Glucose Level 131 Hematocrit 25.9 L Hemoglobin 8.9 L Lymphocytes # 1.2 Lymphocytes % 21.8 Mean Corpuscular Hemoglobin 32.3 Mean Corpuscular Hemoglobin Concent 34.5 Mean Corpuscular Volume 93.6 Mean Platelet Volume 6.4 L Monocytes # 0.4 Monocytes % 6.9 Neutrophils # 3.7 Neutrophils % 67.1 Nucleated Red Blood Cells # 0.0 Nucleated Red Blood Cells % 0.0 Platelet Count 276 Potassium Level 4.2 Red Blood Count 2.76 L Red Cell Distribution Width 13.2 Sodium Level 142 White Blood Count 5.5 Medications Medications Current Medications Ondansetron HCl 4 mg 4 mg Q6H PRN IV NAUSEA AND/OR VOMITING Last administered on 08/30/16 14:22; Admin Dose 4 MG; Start 08/29/16 at 14:30 Potassium Chloride/Dextrose/ Sod Cl 1,000 ml @ 125 mls/hr Q8H IV Last administered on 09/02/16 14:26; Admin Dose 125 MLS/HR; Start 08/29/16 at 14:30 Acetaminophen (Ofirmev 1000mg/ 100ml Iv) 100 ml @ 400 mls/hr Q6H PRN IVPB PAIN Last administered on 09/02/16 11:49; Admin Dose 400 MLS/HR; Start at 14:30 Naloxone HCl (Narcan) 0.2 mg Q2M PRN IV DECREASED REPIRATORY RATE; Start at 17:00 Hydromorphone HCl (Dilaudid) 0.5 mg Q3H PRN IV PAIN LEVEL 1-5; Start 08/29/16 at 17:30 Hydromorphone HCl (Dilaudid) 1 mg Q3H PRN IV PAIN LEVEL 6-10 Last administered on 08/30/16 10:31; Admin Dose 1 MG; Start 08/29/16 at 17:30 Pantoprazole (Protonix Iv) 40 mg DAILY@06 IV Last administered on 09/02/16 04: 39; Admin Dose 40 MG; Start 08/31/16 at 06:00 WINDY EMERY Sep 02, 2016 17:27
--- NOTE | 2016-09-02 18:23 | PN ---
DATE: 09/02/2016 SUBJECTIVE: No complaint. No bowel movements. No passing gas. No vomiting, no nausea. Has been walking around the floor per nurses. OBJECTIVE: VITAL SIGNS: 97.8, 78, 19, 103/57, 97% saturation. LABORATORY DATA: Today WBC 5500, hemoglobin 8.9, hematocrit 25.9. Chemistry: Potassium 4.2, BUN 5 , creatinine 0.42. ABDOMEN: Soft. Bowel sounds are hypoactive. GENITOURINARY: The Khan was removed today morning and patient has been urinating. EXTREMITIES: No calf tenderness. ASSESSMENT: Postoperative day #4. PLAN: The patient is stable. Awaiting passage of flatus or bowel movement to start patient on diet . Dictated By: JOHN BURGOS MD PS/NTS Conf#: [id number] DID#: [id number] CC: STAR CORTEZ MD;*EndCC*
[2016-09-02 20:04] VITALS: BP 121/60; RESP 16
[2016-09-03] MEDS: ACETAMINOPHEN 1000MG/100ML IV 100 ML IVPB PRN ×2 (01:52→13:43)
[2016-09-03] MEDS: PANTOPRAZOLE 40 MG INJ IV SCH (04:33)
[2016-09-03 07:51] VITALS: BP 109/64; RESP 19
[2016-09-03] MEDS: ONDANSETRON 4 MG INJ IV PRN ×2 (12:07→18:49)
[2016-09-03] MEDS: D5W-0.45 NACL + KCL 20 MEQ 1,000 ML IV SCH (12:11)
--- NOTE | 2016-09-03 13:18 | PN ---
Date/Time of Note Date/Time of Note DATE: 09/03/16 TIME: 13:17 Assessment/Plan VTE Prophylaxis VTE Prophylaxis Intervention: SCD's Lines/Catheters [facility]): Peripheral IV Urinary Cath still in place: No Assessment/Plan Chief Complaint/Hosp Course Assessment and plan Rectal cancer, status post low anterior resection. Advance diet per surgery. Incentive spirometer every hour while patient is awake. IV fluids while patient is n.p.o. Sequential compression device for deep venous thrombosis prophylaxis. Protonix for peptic ulcer disease prophylaxis. Further recommendations based on clinical course. Plan of care discussed with Dr. Dior. Problems: Subjective 24 Hr Interval Summary Free Text/Dictation Patient's complains of nausea, continues n.p.o., hypoactive bowel sounds, negative flatness. Patient able to ambulate in the hallway, voids, no fever. Exam/Review of Systems Vital Signs Vitals Vital Signs Date Time Temp Pulse Resp B/P Pulse Ox O2 Delivery O2 Flow Rate FiO2 09/03/16 07:51 97.0 81 19 109/64 98 09/01/16 13:40 Room Air 08/30/16 14:26 2.0 Intake and Output 09/02/16 09/02/16 09/03/16 15:00 23:00 07:00 Intake Total 1287.5 ml 312.5 ml 940 ml Balance 1287.5 ml 312.5 ml 940 ml Exam Constitutional: alert, oriented Psych: no complaints Head: atraumatic, normocephalic Eyes: nl conjunctiva ENMT: nl external ears & nose Neck: non-tender, supple Respiratory: clear to auscultation, normal air movement Cardiovascular: nl pulses, regular rate and rhythm Gastrointestinal: other (Status post surgery), soft Musculoskeletal: nl extremities to inspection Extremities: normal pulses 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 Results Result Diagram: 09/02/1642709/02/16427 Medications Medications Current Medications Ondansetron HCl 4 mg 4 mg Q6H PRN IV NAUSEA AND/OR VOMITING Last administered on 09/03/16 12:07; Admin Dose 4 MG; Start 08/29/16 at 14:30 Potassium Chloride/Dextrose/ Sod Cl 1,000 ml @ 70 mls/hr [id number] IV Last administered on 09/03/16 12:11; Admin Dose 70 MLS/HR; Start 08/29/16 at 14:30 Acetaminophen (Ofirmev 1000mg/ 100ml Iv) 100 ml @ 400 mls/hr Q6H PRN IVPB PAIN Last administered on 09/03/16 01:52; Admin Dose 400 MLS/HR; Start 08/29/16 at 14:30 Naloxone HCl (Narcan) 0.2 mg Q2M PRN IV DECREASED REPIRATORY RATE; Start at 17:00 Hydromorphone HCl (Dilaudid) 0.5 mg Q3H PRN IV PAIN LEVEL 1-5; Start 08/29/16 at 17:30 Hydromorphone HCl (Dilaudid) 1 mg Q3H PRN IV PAIN LEVEL 6-10 Last administered on 08/30/16 10:31; Admin Dose 1 MG; Start 08/29/16 at 17:30 Pantoprazole (Protonix Iv) 40 mg DAILY@06 IV Last administered on 09/03/16 04: 33; Admin Dose 40 MG; Start 08/31/16 at 06:00 WINDY EMERY Sep 03, 2016 13:18
--- NOTE | 2016-09-03 16:48 | PN ---
DATE: 09/02/2016 This is postoperative day #5. SUBJECTIVE: He has slight nausea, no vomiting, no BM, no flatus. Has been out of bed and walked around to some extent. She is urinating with no difficulty. Awake, alert, oriented, sitting in chair. OBJECTIVE: VITAL SIGNS: 97, 81, 19, 109/64, 98% saturation on room air. LABORATORIES: WBC 5500, hemoglobin is 8.9, hematocrit 25.9. CHEMISTRY: Potassium 4.2, BUN 5, creatinine 0.43. ABDOMEN: Soft. Bowel sounds are 2+/4. LEGS: No calf tenderness. ASSESSMENT AND PLAN: Postop day #5. 1. S/P resection of the colon cancer. 2. The patient has not moved her bowel or was not passing any gas so far; but so far is stable, so we are waiting for at least passing gas. Then, we can start patient on clear liquids and advance diet gradually. PLAN: Encourage incentive spirometry and encourage walking the floor as much as possible. Dictated By: JOHN BURGOS MD PS/KT Conf#: [id number] DID#: [id number] MTDD
[2016-09-03 19:42] VITALS: BP 131/61; RESP 20
[2016-09-03] MEDS: METOCLOPRAMIDE 10 MG INJ IV PRN (21:53)
[2016-09-03 23:46] VITALS: BP 137/67; RESP 19; RESP 73
[2016-09-04] MEDS: D5W-0.45 NACL + KCL 20 MEQ 1,000 ML IV SCH ×2 (04:11→17:41)
[2016-09-04] MEDS: PANTOPRAZOLE 40 MG INJ IV SCH (06:09)
[2016-09-04] MEDS: ACETAMINOPHEN 1000MG/100ML IV 100 ML IVPB PRN (09:01)
[2016-09-04 09:29] VITALS: BP 124/58; RESP 20
--- NOTE | 2016-09-04 11:27 | PN ---
Date/Time of Note Date/Time of Note DATE: 09/04/16 TIME: 11:25 Assessment/Plan VTE Prophylaxis VTE Prophylaxis Intervention: SCD's Lines/Catheters IV Catheter Type (from Nrs): Peripheral IV Urinary Cath still in place: No Assessment/Plan Assessment/Plan Rectal cancer, status post low anterior resection. Advance diet per surgery. Incentive spirometer every hour while patient is awake. IV fluids while patient is n.p.o. Sequential compression device for deep venous thrombosis prophylaxis. Protonix for peptic ulcer disease prophylaxis. Further recommendations based on clinical course. Plan of care discussed with Dr. Dior. Subjective 24 Hr Interval Summary Free Text/Dictation NAD, up in chair. Walking around nausea difficulty, bowel sounds hypoactive, remains nothing by mouth ice chips only, denies any complains at present. No new issues reported by staff Constitutional: improved, requiring IVF Eyes: no complaints ENT: no complaints Respiratory: no complaints Gastrointestinal: pain Genitourinary: no complaints Musculoskeletal: no complaints Skin: no complaints Neurologic: no complaints Endocrine: no complaints Lymphatic: no complaints Psychological: no complaints Immunologic: immunodeficiency Exam/Review of Systems Vital Signs Vitals Vital Signs Date Time Temp Pulse Resp B/P Pulse Ox O2 Delivery O2 Flow Rate FiO2 09/04/16 09:29 98.5 76 20 124/58 98 09/01/16 13:40 Room Air Intake and Output 09/03/16 09/03/16 09/04/16 15:00 23:00 07:00 Intake Total 100 ml 600 ml 570 ml Balance 100 ml 600 ml 570 ml Exam Constitutional: alert, oriented, well developed Psych: nl mood/affect Eyes: PERRL, nl sclera ENMT: nl external ears & nose Respiratory: clear to auscultation Cardiovascular: nl pulses Gastrointestinal: non-tender, soft Musculoskeletal: nl extremities to inspection Extremities: normal pulses 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: 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, nl speech Skin: other (Rectal cancer, status post low anterior resection. Dressing dry and intact.) Results Result Diagram: 09/02/1642709/02/16427 Medications Medications Current Medications Ondansetron HCl 4 mg 4 mg Q6H PRN IV NAUSEA AND/OR VOMITING Last administered on 09/03/16t 18:49; Admin Dose 4 MG; Start 08/29/16 at 14:30 Potassium Chloride/Dextrose/ Sod Cl 1,000 ml @ 70 mls/hr [id number] IV Last administered on 09/04/16 04:11; Admin Dose 70 MLS/HR; Start 08/29/16 at 14:30 Acetaminophen (Ofirmev 1000mg/ 100ml Iv) 100 ml @ 400 mls/hr Q6H PRN IVPB PAIN Last administered on 09/04/16 09:01; Admin Dose 400 MLS/HR; Start 08/29/16 at 14:30 Naloxone HCl (Narcan) 0.2 mg Q2M PRN IV DECREASED REPIRATORY RATE; Start at 17:00 Hydromorphone HCl (Dilaudid) 0.5 mg Q3H PRN IV PAIN LEVEL 1-5; Start 08/29/16 at 17:30 Hydromorphone HCl (Dilaudid) 1 mg Q3H PRN IV PAIN LEVEL 6-10 Last administered on 08/30/16 10:31; Admin Dose 1 MG; Start 08/29/16 at 17:30 Pantoprazole (Protonix Iv) 40 mg DAILY@06 IV Last administered on 09/04/16 06: 09; Admin Dose 40 MG; Start 08/31/16 at 06:00 Metoclopramide HCl (Reglan) 10 mg Q6H PRN IV nausea Last administered on 21:53; Admin Dose 10 MG; Start 09/03/16 at 22:00 MESHA VELASQUEZ Sep 04, 2016 11:27
[2016-09-04] MEDS: ONDANSETRON 4 MG INJ IV PRN (13:44)
--- NOTE | 2016-09-04 14:26 | PN ---
DATE: 09/04/2016 Postoperative day #6. SUBJECTIVE: Patient states that she has passed a lot of gas. No nausea, no vomiting, no fever, has been walking around. OBJECTIVE VITAL SIGNS: Stable 98.5, 76, 20, 124/68 and 98% on room air. ABDOMEN: Soft. LEGS: No calf tenderness. ASSESSMENT: Postop day #6, patient has started passing gas. PLAN: We will start patient on a clear liquid and advance to full liquid diet and will watch for 1 or 2 more days, and later on will advance to regular diet and patient probably is going to be ready to be discharged by the weekend hopefully. Dictated By: JOHN JUSTIN/KT Conf#: [id number] DID#: [id number]
[2016-09-04] MEDS: METOCLOPRAMIDE 10 MG INJ IV PRN (17:41)
[2016-09-04 21:09] VITALS: BP 102/50; RESP 20
[2016-09-05 05:10] LABS: BASOPHILS % 0.5 % (0.0-2.0); EOSINOPHILS # 0.2 10^3/ul (0.0-0.5); HEMATOCRIT 23.5 % (37.0-47.0); LYMPHOCYTES # 1.7 10^3/ul (0.8-2.9); LYMPHOCYTES % 28.1 % (15.0-51.0); MEAN CORPUSCULAR HEMOGLOBIN 31.9 pg (29.0-33.0); MEAN CORPUSCULAR VOLUME 93.8 fl (82.0-101.0); MEAN PLATELET VOLUME 5.8 fl (7.4-10.4); MONOCYTE # 0.6 10^3/ul (0.3-0.9); MONOCYTES % 10.2 % (0.0-11.0); NEUTROPHIL # 3.4 10^3/ul (1.6-7.5); NEUTROPHILS % 57.2 % (39.0-77.0); PLATELET COUNT 356 10^3/UL (140-440); RED BLOOD COUNT 2.51 10^6/ul (4.20-5.40); RED CELL DISTRIBUTION WIDTH 13.1 % (11.5-14.5)
[2016-09-05 05:15] LABS: CONDITION 1
[2016-09-05 05:31] LABS: POTASSIUM 4.5 mmol/L (3.5-5.1)
[2016-09-05 05:33] LABS: CREATININE 0.52 mg/dl (0.44-1.00)
[2016-09-05] MEDS: D5W-0.45 NACL + KCL 20 MEQ 1,000 ML IV SCH ×2 (05:34→11:39)
[2016-09-05] MEDS: PANTOPRAZOLE 40 MG INJ IV SCH (05:34)
[2016-09-05 07:00] VITALS: BP 114/58; RESP 20
--- NOTE | 2016-09-05 13:06 | PN ---
Date/Time of Note Date/Time of Note DATE: 09/05/16 TIME: 13:04 Assessment/Plan VTE Prophylaxis VTE Prophylaxis Intervention: SCD's Lines/Catheters [facility] Peripheral IV Urinary Cath still in place: No Assessment/Plan Chief Complaint/Hosp Course Assessment and plan Rectal cancer, status post low anterior resection. Advance diet per surgery. Incentive spirometer every hour while patient is awake. Patient tolerates clear liquid diet well. Stop IV fluids. Advance diet as patient tolerates. Patient's condition and plan of care discussed with Dr. Ceballos Sequential compression device for deep venous thrombosis prophylaxis. Protonix for peptic ulcer disease prophylaxis. Further recommendations based on clinical course. Plan of care discussed with Dr. Dior. Problems: Subjective 24 Hr Interval Summary Free Text/Dictation Patient tolerates clear liquid diet well, no bowel movement yet, patient denies nausea vomiting, pain is well controlled. Exam/Review of Systems Vital Signs Vitals Vital Signs Date Time Temp Pulse Resp B/P Pulse Ox O2 Delivery O2 Flow Rate FiO2 09/05/16 07:00 98.7 79 20 114/58 97 09/01/16 13:40 Room Air Intake and Output 09/04/16 09/04/16 09/05/16 15:00 23:00 07:00 Intake Total 100 ml 1750 ml 1440 ml Balance 100 ml 1750 ml 1440 ml Exam Constitutional: alert, oriented Psych: no complaints Head: atraumatic, normocephalic Eyes: nl conjunctiva ENMT: nl external ears & nose Neck: non-tender, supple Respiratory: clear to auscultation, normal air movement Cardiovascular: nl pulses, regular rate and rhythm Gastrointestinal: other (Status post surgery), soft Musculoskeletal: nl extremities to inspection Extremities: normal pulses 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 Results Result Diagram: 09/05/16 0446 09/05/16 0440 Results 24 hrs Laboratory Tests Test 09/05/16 04:40 09/05/16 04:46 Anion Gap 12 Blood Urea Nitrogen 7 Calcium Level 9.0 Carbon Dioxide Level 30 Chloride Level 104 Creatinine 0.52 Glucose Level 117 Potassium Level 4.5 Sodium Level 141 Basophils # 0.0 Basophils % 0.5 Blood Morphology Comment Eosinophils # 0.2 Eosinophils % 4.0 Hematocrit 23.5 L Hemoglobin 8.0 L Lymphocytes # 1.7 Lymphocytes % 28.1 Mean Corpuscular Hemoglobin 31.9 Mean Corpuscular Hemoglobin Concent 34.0 Mean Corpuscular Volume 93.8 Mean Platelet Volume 5.8 L Monocytes # 0.6 Monocytes % 10.2 Neutrophils # 3.4 Neutrophils % 57.2 Nucleated Red Blood Cells # 0.0 Nucleated Red Blood Cells % 0.0 Platelet Count 356 # Red Blood Count 2.51 L Red Cell Distribution Width 13.1 White Blood Count 6.0 Medications Medications Current Medications Ondansetron HCl 4 mg 4 mg Q6H PRN IV NAUSEA AND/OR VOMITING Last administered on 09/04/16 13:44; Admin Dose 4 MG; Start 08/29/16 at 14:30 Acetaminophen (Ofirmev 1000mg/ 100ml Iv) 100 ml @ 400 mls/hr Q6H PRN IVPB PAIN Last administered on 09/04/16 09:01; Admin Dose 400 MLS/HR; Start 08/29/16 at 14:30 Naloxone HCl (Narcan) 0.2 mg Q2M PRN IV DECREASED REPIRATORY RATE; Start at 17:00 Hydromorphone HCl (Dilaudid) 0.5 mg Q3H PRN IV PAIN LEVEL 1-5; Start 08/29/16 at 17:30 Hydromorphone HCl (Dilaudid) 1 mg Q3H PRN IV PAIN LEVEL 6-10 Last administered on 08/30/16 10:31; Admin Dose 1 MG; Start 08/29/16 at 17:30 Pantoprazole (Protonix Iv) 40 mg DAILY@06 IV Last administered on 09/05/16 05: 34; Admin Dose 40 MG; Start 08/31/16 at 06:00 Metoclopramide HCl (Reglan) 10 mg Q6H PRN IV nausea Last administered on 17:41; Admin Dose 10 MG; Start 09/03/16 at 22:00 WINDY EMERY Sep 05, 2016 13:06
--- NOTE | 2016-09-05 14:14 | PN ---
DATE: 09/05/2016 SUBJECTIVE: No complaints and is passing a lot of gas, no bowel movement, as tolerated full liquid diet. OBJECTIVE VITAL SIGNS: Temperature 98.7, pulse rate 79, respirations 20, blood pressure 114/58, saturating 97 % on room air. ABDOMEN: Soft. Bowel sounds present. LABORATORY DATA: WBC 6000, hemoglobin 8, hematocrit 23.5. There is no calf tenderness. ASSESSMENT: Stable postop day #7, tolerating full liquid diet. No bowel movement yet. PLAN: We will increase the diet to soft diet today. If the patient has bowel movement by tomorrow, she is going to be discharged tomorrow. Dictated By: JOHN JUSTIN/KT Conf#: [id number] DID#: [id number]
[2016-09-06] MEDS: PANTOPRAZOLE 40 MG INJ IV SCH (05:19)
[2016-09-06 05:36] LABS: BASOPHILS % 0.3 % (0.0-2.0); EOSINOPHILS % 3.9 % (0.0-7.0); HEMATOCRIT 22.6 % (37.0-47.0); HEMOGLOBIN 7.3 g/dl (12.0-16.0); LYMPHOCYTES % 25.2 % (15.0-51.0); MEAN CORPUSCULAR HEMOGLOBIN 30.7 pg (29.0-33.0); MEAN CORPUSCULAR HGB CONC 32.3 g/dl (32.0-37.0); MEAN PLATELET VOLUME 8.2 fl (7.4-10.4); MONOCYTES % 11.1 % (0.0-11.0); NEUTROPHILS % 59.2 % (39.0-77.0); PLATELET COUNT 359 10^3/UL (140-440); RED BLOOD COUNT 2.38 10^6/ul (4.20-5.40); WHITE BLOOD COUNT 5.8 10^3/ul (4.8-10.8)
[2016-09-06 05:37] LABS: EOSINOPHILS # 0.2 10^3/ul (0.0-0.5); LYMPHOCYTES # 1.5 10^3/ul (0.8-2.9); MONOCYTE # 0.7 10^3/ul (0.3-0.9); NEUTROPHIL # 3.4 10^3/ul (1.6-7.5)
[2016-09-06 05:46] LABS: POTASSIUM 3.7 mmol/L (3.5-5.1)
[2016-09-06 05:48] LABS: CREATININE 0.55 mg/dl (0.44-1.00)
[2016-09-06 05:49] LABS: CALCIUM 9.1 mg/dl (8.4-10.2)
[2016-09-06 08:25] VITALS: BP 103/56; RESP 18
--- NOTE | 2016-09-06 13:24 | PN ---
DATE: 09/06/2016 SUBJECTIVE: No complaint. No abdominal pain, has had a bowel movement, tolerating diet, has been w alking around. OBJECTIVE VITAL SIGNS: Stable as follows, 98.3, 77, 18, 103/56 and 98% saturation on room air. GENERAL: Abdomen is soft. Wound is clean. No calf tenderness. LABORATORY DATA: WBC 5800, hemoglobin is 7.3, hematocrit 22.6, which has decreased since operation about 2 numbers. Considering that we expect some oozing of blood in the area of the operation retro peritoneally, the patient needs to be started on iron tablets. ASSESSMENT: Patient is stable postop day #7. Has had bowel movements. Pathology report was noted. ABDOMEN: Soft. Wounds clean. Hemoglobin is low at 7.3. Dr. Dougherty, internal medicine is covering Dr. Dior has been called. He recommended 1 unit of bloo d transfusion. After blood transfusion, the patient is going to be discharged home today. I will g otoniel the patient ferrous sulfate 325 mg p.o., to take 1 b.i.d. FOLLOWUP: By Dr. Matrin in his office. Dictated By: JOHN BURGOS MD PS/NTS Conf#: [id number] DID#: [id number]
[2016-09-06] MEDS ORDERED: HYDR-906 PO (16:28)
--- NOTE | 2016-09-10 12:11 | DS ---
Date/Time of Note Date/Time of Note DATE: 09/10/16 TIME: 12:10 Discharge Summary Admission/Discharge Info Admit Date/Time Aug 29, 2016 at 08:59 Discharge Date/Time Sep 06, 2016 at 19:30 Final Diagnosis 1) rectal cancer Patient Condition: Fair Consults surgery Hospital Course Patient with rectal cancer, underwent anterior resection. Patient tolerated the procedure and after patient was felt to be stable per surgery, she was sent home. Assessment and plan Rectal cancer, status post low anterior resection. Advance diet per surgery. Incentive spirometer every hour while patient is awake. Patient tolerates clear liquid diet well. Stop IV fluids. Advance diet as patient tolerates. Patient's condition and plan of care discussed with Dr. Ceballos Sequential compression device for deep venous thrombosis prophylaxis. Protonix for peptic ulcer disease prophylaxis. Further recommendations based on clinical course. Plan of care discussed with Dr. Dior. Home Meds Active Scripts Acetaminophen* (Tylenol*) 325 Mg Tablet, 2 TAB PO Q6 Y for PAIN AND OR ELEVATED TEMP, #30 TAB Prov:JARAD RICARDO PA-C 08/23/16 Reported Medications Hydrocodone/Acetaminophen ([place] 5-325 Tablet) 1 Each Tablet, 1 EACH PO Q6 Y for PAIN, #30 TAB 09/06/16 PILAR FARMER Sep 10, 2016 12:11
== END 2016-09-06 19:30 | disposition home or self-care (01) | DRG 333 ==
LOC: REC 08:59 → EDSTATUS 09:30 → MS1 16:10
PROVIDERS: ADMIT Surgery Surgical Oncology; ATTEND Surgery Surgical Oncology
PROC: 0DJD8ZZ Inspection of Lower Intestinal Tract, Via Natural or Artificial Opening Endoscopic (ICD-10-PCS; 2016-08-29)
PROC: 30233N1 Transfusion of Nonautologous Red Blood Cells into Peripheral Vein, Percutaneous Approach (ICD-10-PCS; 2016-08-29)
PROC: 0DTP0ZZ Resection of Rectum, Open Approach (ICD-10-PCS; principal; 2016-08-29 11:30)
DX: C20 Malignant neoplasm of rectum (principal); R71.0 Precipitous drop in hematocrit; Z79.891 Long term (current) use of opiate analgesic; Z79.899 Other long term (current) drug therapy
CPT/HCPCS: 36430; 71010; 80048; 82962; 83735; 84100; 85025; 85610; 85730; 86850; 86900; 86901; 86920; 87086; 88307; 93005; C9113; J0131; J0295; J0330; J0690; J1100; J1170; J2405; J2710; J2765; J3010; J3480; J7030; P9016

== ENCOUNTER 2016-09-11 13:33 | Outpatient (CLI) | payer OTHER ==
[~2016-09-11] VITALS: Ht 160 cm; Wt 45.0 kg
[~2016-09-11 13:33] MED LIST changes: -AMPICILLIN/SULB 3 GM/NS (PMX) 100 ML IVPB ONE; -CEFAZOLIN 1 GM INJ ONE; -GLYCOPYRROLATE 0.4 MG INJ ONE; +HYDR-906 PO; -LIDOCAINE 2% (SDV) 5 ML INJ ONE; -NEOSTIGMINE 3 MG/3 ML SYRINGE ONE; -PROPOFOL 200 MG INJ ONE; -ROCURONIUM 50 MG INJ ONE; -SUCCINYLCHOLINE CHLORIDE 100 MG/5 ML SYG IV ONE
[2016-09-11 13:59] VITALS: BP 109/61; PULSE 78; RESP 16; Ht 160 cm; Wt 45.0 kg
--- NOTE | 2016-09-11 14:43 | PN ---
Date/Time of Note Date/Time of Note DATE: 09/11/16 TIME: 14:41 Outpatient Progress Note Chief Complaint Rectal mass//status post surgery HPI Rectal mass/patient has rectal cancer, patient was admitted to the hospital, patient had low anterior resection, no fever or chill, slight abdominal discomfort, no fever or chill, no hemoptysis, no constipation, no abdominal distention, patient has significant weight loss, still has poor appetite, Review of Systems Const: No Fever, no chills, no Wt. loss, no Fatigue, normal appetite, no diaphoresis. Eyes: No pain, no discharge, no redness, no visual change, no foreign body. ENT: No pain, no bleeding, no congestion, no sore throat, no dysphagia, no discharge or rhinitis. Lymph: No adenopathy, no tender nodes, no lymphedema. Resp: No SOB, no cough, no sputum, no wheezing, no chest pain. CV: No chest pain, no palpitaions, no PARDO, no PND, no edema. GI: Very poor appetite, mild to moderate pain, nausea with the pain medication, , no vomiting, no diarrhea, no blood, no constipation. : No frequency, no urgency, no dysuria, no hematuria, no flank pain, no discharge, no bleeding. Musc: No bone/joint pain, no back pain, no neck pain, no knee pain, no restricted ROM. Skin: No rash, no skin lesions, no erythema, no laceration, no bruising, no pruritus. Neuro: No POON, no dizziness, no syncope, no seizure, no focal-weakness. Endo: No polyuria, no polydypsia, no dry-skin, no temp-intolerance. Psych: No hallucinations, no depression, no anxiety, no suicidal ideation. Ext: No edema, no pain, no ulcer, no weakness. Physical Exam Vital Signs Date Time Temp Pulse Resp B/P Pulse Ox O2 Delivery O2 Flow Rate FiO2 09/11/16 13:59 98.8 78 16 109/61 99 Room Air General Appearance: A 65 year-old female who appears well-developed, well- nourished, in no acute distress. HEENT: Head normocephalic, atraumatic. Pupils equal, round, reactive to light and accommodate. Sclerae are no jaundice. Nasal turbinates pink without erythema or nasal discharge. Mucous membranes pink and moist without lesions. Oropharynx clear without any exudate or discharge. NECK: Supple. Trachea midline, No thyromegaly, No cervical lymphadenopathy, No mass, No carotid bruits, No JVD, Carotid pulses 2+ bilaterally. PULMONARY: Clear to auscultaion bilaterally, No retractions, Chest expansion symmetric bilaterally, no rales, no ronchi, no dulness on percussion. CARDIAC: Normal SI and S2, Regular rate and rythm, no murmur, gallop, or rub. GASTROINTESTINAL: Abdomen is soft, mild to moderate tenderness on pressure, status post surgery, surgical scar clean, no redness no bleeding or discharge,, Non Rigid, No distention, Positive bowel sounds x4 quadrants, Liver normal. SKIN: Warm, dry, no rash, no bruise, no echmosis. EXTREMITIES: Bilateral lower extremities normal, no edema, no phlabitus, pulse palpable, no contracture. MUSCULOSKELETAL: Spine Normal, Non-tender, Normal range of motion, No swelling, no deformity, no clubbing, or cyanosis, the patient has no edema to bilateral lower extremities, dorsalis pedis pulses palpable bilaterally. NEUROLOGIC: The patient is awake, alert, oriented, responding to yes/no questions appropriately, moving all extremities, cranial nerve intact, normal strenght, normal power, normal coordination, normal gait. Allergies Coded Allergies: vancomycin (Verified Allergy, Severe, TACHYCARDIA AND SWELLING, 08/29/16) hydrocodone (Verified Allergy, Intermediate, 08/29/16) NAUSEA tramadol (Verified Allergy, Intermediate, 08/29/16) NAUSEA codeine (Verified Allergy, Mild, DIAPHORESIS, 08/29/16) naproxen (Verified Allergy, Unknown, REDNESS, DIAPHORESIS, 08/29/16) PMH Rectal cancer/status post low anterior resection/status post left inguinal hernia/status post cholecystectomy/colonoscopy Social Hx No smoking or drinking, Family Hx Noncontributory Assessment/Plan Impression Rectal cancer/status post low anterior resection/status post cholecystectomy/ status post left inguinal hernia repair Plan Patient still has abdominal discomfort, patient only taking Tylenol, no constipation, Patient advise to follow with the primary care and surgeon, CBC CMP, Patient given option of different pain medication, Medications Home Meds Active Scripts Acetaminophen* (Tylenol*) 325 Mg Tablet, 2 TAB PO Q6 Y for PAIN AND OR ELEVATED TEMP, #30 TAB Prov:JARAD RICARDO PA-C 08/23/16 Reported Medications Hydrocodone/Acetaminophen ([place] 5-325 Tablet) 1 Each Tablet, 1 EACH PO Q6 Y for PAIN, #30 TAB 09/06/16 DOUGIE GARZA MD Sep 11, 2016 14:43
== END 2016-09-11 16:46 | disposition home or self-care (01) ==
LOC: DCC 13:33
PROVIDERS: ATTEND Internal Medicine
DX: C64.9 Malignant neoplasm of unspecified kidney, except renal pelvis (principal); Z98.890 Other specified postprocedural states; Z90.49 Acquired absence of other specified parts of digestive tract
CPT/HCPCS: G0463

== ENCOUNTER 2016-09-16 14:32 | Emergency (ER) | payer OTHER ==
[~2016-09-16] VITALS: Ht 152.4 cm; Wt 44.0 kg
[2016-09-16 15:26] VITALS: Ht 152.4 cm; Wt 44.0 kg
[2016-09-16] MEDS ORDERED: SODIUM CHLORIDE 0.9% 1L BAG IV* STA (20:12)
[2016-09-16] MEDS ORDERED: HYDROmorphONE 1 MG/ML SYG IV STA (20:22)
[2016-09-16] MEDS ORDERED: SOD CHLORIDE 0.9% 1,000 ML IV STA (20:22)
[2016-09-16] MEDS ORDERED: ONDANSETRON 4 MG INJ IV STA (20:22)
[2016-09-16] MEDS ORDERED: MUPIROCIN 2% 22 GM OINT TOP ONE (20:30)
[2016-09-16] MEDS ORDERED: IBUPROFEN 600 MG TAB PO ONE (20:30)
[2016-09-16] MEDS ORDERED: CEFTRIAXONE 1 GM/50 ML (PMX) 50 ML IVPB ONE (20:30)
[2016-09-16 20:44] LABS: BASOPHILS % 0.6 % (0.0-2.0); EOSINOPHILS # 0.2 10^3/ul (0.0-0.5); EOSINOPHILS % 4.1 % (0.0-7.0); HEMATOCRIT 32.3 % (37.0-47.0); HEMOGLOBIN 10.8 g/dl (12.0-16.0); LYMPHOCYTES # 1.6 10^3/ul (0.8-2.9); LYMPHOCYTES % 27.2 % (15.0-51.0); MEAN CORPUSCULAR HGB CONC 33.5 g/dl (32.0-37.0); MEAN CORPUSCULAR VOLUME 92.6 fl (82.0-101.0); MEAN PLATELET VOLUME 5.7 fl (7.4-10.4); MONOCYTE # 0.6 10^3/ul (0.3-0.9); MONOCYTES % 10.3 % (0.0-11.0); NEUTROPHIL # 3.4 10^3/ul (1.6-7.5); NEUTROPHILS % 57.8 % (39.0-77.0); PLATELET COUNT 468 10^3/UL (140-440); RED BLOOD COUNT 3.49 10^6/ul (4.20-5.40); RED CELL DISTRIBUTION WIDTH 14.7 % (11.5-14.5); UNCORRECTED WBC 5.8 10^3/ul (4.8-10.8); WHITE BLOOD COUNT 5.8 10^3/ul (4.8-10.8)
[2016-09-16 20:46] LABS: CONDITION 1; LH ANALYZER COMMENTS 1
[2016-09-16 20:53] LABS: ADD UMIC YES; URINE BILIRUBIN (Dip) NEGATIVE (NEGATIVE); URINE BLOOD (Dip) 2+ (NEGATIVE); URINE COLOR LT. YELLOW (YELLOW); URINE GLUCOSE (Dip) NEGATIVE (NEGATIVE); URINE KETONES (Dip) NEGATIVE (NEGATIVE); URINE LEUKOCYTE ESTERASE (Dip) NEGATIVE (NEGATIVE); URINE NITRITE (Dip) NEGATIVE (NEGATIVE); URINE TOTAL PROTEIN (Dip) NEGATIVE (NEGATIVE); URINE UROBILINOGEN (Dip) 0.2 E.U./dL (0.1-1.0)
[2016-09-16 20:54] LABS: INR 1.04; PROTIME 13.6 Sec (12.2-14.2); PT RATIO 1.1
[2016-09-16 20:56] LABS: ALBUMIN 3.9 g/dl (3.3-4.9)
[2016-09-16 20:57] LABS: POTASSIUM 3.9 mmol/L (3.5-5.1)
[2016-09-16 20:59] LABS: ALBUMIN/GLOBULIN RATIO 1.14; BILIRUBIN,INDIRECT 0.4 mg/dl (0-1.1); BILIRUBIN,TOTAL 0.4 mg/dl (0.2-1.3); CREATININE 0.48 mg/dl (0.44-1.00); TOTAL PROTEIN 7.3 g/dl (6.1-8.1)
[2016-09-16 21:00] LABS: CALCIUM 9.9 mg/dl (8.4-10.2)
[2016-09-16 21:05] LABS: SQUAMOUS EPITHELIAL CELL,UR FEW
[2016-09-16] MEDS ORDERED: FER325 PO (21:16)
[2016-09-16] MEDS ORDERED: DOCU-144 PO (22:08)
[2016-09-16] MEDS ORDERED: OXYC-279 PO (22:08)
--- NOTE | 2016-09-16 22:22 | ERD ---
ER Documentation Chief Complaint Date/Time DATE: 09/16/16 TIME: 22:17 Chief Complaint AP FOLLOWING SX 08/29/16, INCISION REDNESS & PAINFUL HPI This is a 65-year-old woman complaining of lower abdominal pain status post surgical resection of rectal adenocarcinoma about 2 weeks ago. She states she has been using [place] although less than prescribed because she does not like how it makes her feel and does not really control the pain. She denies dysuria , no fevers or chills, no chest pain or shortness of breath, no rectal discharge , no melena, no blood per rectum. ROS All systems reviewed and are negative except as per history of present illness. Medications Home Meds Active Scripts Oxycodone HCl/Acetaminophen (Percocet 5-325 mg Tablet) 1 Each Tablet, 1 EACH PO TID for PAIN LEVEL 6-10, #15 TAB Prov:SANDRA GOODWIN MD 09/16/16 Docusate Sodium* (Colace*) 100 Mg Capsule, 100 MG PO DAILY, #30 CAP Prov:SANDRA GOODWIN MD 09/16/16 Reported Medications Ferrous Sulfate* (Ferrous Sulfate*) 325 Mg Tabec, 325 MG PO BID, TAB 09/16/16 Hydrocodone/Acetaminophen ([place] 5-325 Tablet) 1 Each Tablet, 1 EACH PO Q6 Y for PAIN, #30 TAB 09/06/16 Discontinued Scripts Acetaminophen* (Tylenol*) 325 Mg Tablet, 2 TAB PO Q6 Y for PAIN AND OR ELEVATED TEMP, #30 TAB Prov:JARAD RICARDO PA-C 08/23/16 Allergies Allergies: Coded Allergies: vancomycin (Verified Allergy, Severe, TACHYCARDIA AND SWELLING, 09/16/16) hydrocodone (Verified Allergy, Intermediate, 09/16/16) NAUSEA tramadol (Verified Allergy, Intermediate, 09/16/16) NAUSEA codeine (Verified Allergy, Mild, DIAPHORESIS, 09/16/16) naproxen (Verified Allergy, Unknown, REDNESS, DIAPHORESIS, 08/29/16) PMhx/Soc Recent surgical resection of rectal adenocarcinoma, diabetes mellitus, anemia, hypertension Medical and Surgical Hx: pt denies Medical Hx History of Surgery: Yes (TABHSO, RECTAL BX, LEFT INGUINAL HERNIA) Anesthesia Reaction: No Hx 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 Disorder: No Hx Respiratory Disorders: No Hx Cardiac Disorders: No Hx Psychiatric Problems: No Hx Miscellaneous Medical Probl: No Hx Alcohol Use: No Hx Substance Use: No Hx Tobacco Use: No Smoking Status: Never smoker FmHx Family History: No diabetes Physical Exam Vitals Vital Signs Date Time Temp Pulse Resp B/P Pulse Ox O2 Delivery O2 Flow Rate FiO2 09/16/16 23:25 98.2 74 20 132/78 100 Room Air 09/16/16 20:30 98.2 75 20 136/85 100 Room Air 09/16/16 15:26 97.9 78 20 142/61 97 Physical Exam GENERAL: Well-developed, well-nourished, well-hydrated, in no apparent distress , looks nontoxic in appearance, afebrile HEENT: Moist mucous membranes, pink conjunctiva, no cervical spine tenderness or step-off deformities, no goiter, no jaundice or icterus, extraocular movements intact without pain. No submandibular induration, and no pharyngeal erythema NEURO: Alert and oriented 3, cranial nerves II through XII intact bilaterally, pupils equal round reactive to light, no focal deficits or facial asymmetry, sensation intact distally Strength 5/5 in upper and lower extremities bilaterally CARDIAC: Regular rate and rhythm, no murmurs rubs or gallops LUNGS: Clear bilaterally no wheezing crackles or stridor ABDOMEN: There is a well-healing surgical midline abdominal incision which appears well approximated with mild superficial skin erythema, although no skin induration noted, no wound dehiscence or purulent discharge noted. Bowel sounds are normoactive, though there is no abdominal tenderness, rigidity, or guarding SKIN: Warm and dry to touch, positive mid abdominal surgical incision with mild superficial skin erythema without induration or discharge, skin is without ulcers EXTREMITIES: No clubbing cyanosis or edema, calves are bilaterally symmetrical, no Homans sign, no popliteal cord sign. Distal pulses equal and bilateral PSYCH: Normal affect without agitation or irritability Result Diagram: 09/16/16202009/16/162020 Results 24 hrs Laboratory Tests Test 09/16/16 20:21 09/16/16 20:45 Alanine Aminotransferase (ALT/SGPT) 19IU/L Albumin 3.9g/dl Albumin/Globulin Ratio 1.14 Alkaline Phosphatase 75IU/L Anion Gap 16 Aspartate Amino Transf (AST/SGOT) 20IU/L Basophils # 0.010^3/ul Basophils % 0.6% Blood Morphology Comment Blood Urea Nitrogen 22mg/dl Calcium Level 9.9mg/dl Carbon Dioxide Level 29mmol/L Chloride Level 102mmol/L Creatinine 0.48mg/dl Direct Bilirubin 0.00mg/dl Eosinophils # 0.210^3/ul Eosinophils % 4.1% Globulin 3.40g/dl Glucose Level 104mg/dl Hematocrit 32.3% Hemoglobin 10.8g/dl INR International Normalized Ratio 1.04 Indirect Bilirubin 0.4mg/dl Lipase 420U/L Lymphocytes # 1.610^3/ul Lymphocytes % 27.2% Mean Corpuscular Hemoglobin 31.0pg Mean Corpuscular Hemoglobin Concent 33.5g/dl Mean Corpuscular Volume 92.6fl Mean Platelet Volume 5.7fl Monocytes # 0.610^3/ul Monocytes % 10.3% Neutrophils # 3.410^3/ul Neutrophils % 57.8% Nucleated Red Blood Cells # 0.010^3/ul Nucleated Red Blood Cells % 0.0/100WBC Platelet Count 49740^3/UL Potassium Level 3.9mmol/L Prothrombin Time 13.6Sec Prothrombin Time Ratio 1.1 Red Blood Count 3.4910^6/ul Red Cell Distribution Width 14.7% Sodium Level 143mmol/L Total Bilirubin 0.4mg/dl Total Protein 7.3g/dl White Blood Count 5.810^3/ul Urine Bilirubin NEGATIVE Urine Clarity CLEAR Urine Color LT. YELLOW Urine Glucose NEGATIVE% Urine Hemoglobin 2+ Urine Ketones NEGATIVE Urine Leukocyte Esterase NEGATIVE Urine Microscopic RBC 2-5/HPF Urine Microscopic WBC 0-2/HPF Urine Nitrite NEGATIVE Urine Specific [place] <=1.005 Urine Squamous Epithelial Cells FEW Urine Total Protein NEGATIVE Urine Urobilinogen 0.2 E.U./dL Urine pH 6.0 Current Medications Medications (Trade) Dose Ordered Sig/Juana Route PRN Reason Start Time Stop Time Status Last Admin Dose Admin Sodium Chloride 2000 ml 2,000 ml BOLUS OVER 2 HOURS STAT IV* 09/16/16 20:12 09/16/16 20:21 DC Ceftriaxone Sodium (Rocephin) 50 ml @ 100 mls/hr ONCE ONCE IVPB 09/16/16 20:30 09/16/16 20:30 DC Ibuprofen 600 mg 600 mg ONCE ONCE PO 09/16/16 20:30 09/16/16 20:30 DC Sodium Chloride (NS) 1,000 ml @ 1,000 mls/hr Q1H STAT IV 09/16/16 20:22 09/16/16 21:21 DC 09/16/16 20:35 Hydromorphone HCl (Dilaudid) 0.5 mg ONCE STAT IV 09/16/16 20:22 09/16/16 20:24 DC 09/16/16 20:36 Ondansetron HCl (Zofran Inj) 4 mg ONCE STAT IV 09/16/16 20:22 09/16/16 20:24 DC 09/16/16 20:36 Mupirocin (Bactroban) 1 applic ONCE ONCE TOP 09/16/16 20:30 09/16/16 20:31 DC 09/16/16 21:07 Procedures/MDM IV line was established patient was placed on diagnostic cardiac sonographer rhythm strip revealed a sinus rhythm at about 70 bpm with upright P and T waves. Patient was afebrile. I administered 1 L normal saline intravenously, hydromorphone 0.5 mg IV, and Zofran 4 mg IV with good response. Patient's pain completely resolved. I also administered mupirocin 2% antibiotic ointment over the abdominal incision. Patient was given the tube of mupirocin and instructed on how to use it 2-3 times per day for the next 2 weeks. CBC was unremarkable, electrolytes revealed dehydration, liver function tests are normal. Urine analysis was negative for infection. CT scan of the abdomen and pelvis was performed, given the patient's symptoms. Post ventral abdominal and pelvic surgery with expected postoperative infiltration changes were noted but no abnormal fluid collection or hernia was seen. Please refer to radiologist dictation for full report. Differential diagnoses considered, included but not limited to acute coronary syndrome, pulmonary embolism, aortic dissection, abdominal aortic aneurysm, sepsis, stroke, meningitis, encephalitis, pneumonia, appendicitis, cholecystitis , bowel obstruction, pyelonephritis, nephrolithiasis, cystitis, as well as metabolic, hematologic, and electrolyte abnormalities. As well as abscess, cellulitis, fractures, and dislocations. Patient feels much better at this time, and vital signs are normal, symptoms have improved. I did give strict instructions to return to the ED if symptoms continue or worsen, patient will otherwise follow-up with primary care physician. Patient understood instructions and agreed to plan. Departure Diagnosis: Primary Impression: Post-op pain Additional Impression: Dehydration Condition: Good Patient Instructions: Post Op Wound Check, Infection, Post Op Wound Check, Pain SANDRA GOODWIN MD Sep 16, 2016 22:22
--- NOTE | 2016-09-16 22:56 | RADRPT ---
PROCEDURE: CT Abdomen and Pelvis without contrast. CLINICAL INDICATION: Pain. Status post surgery for rectal carcinoma.. TECHNIQUE: CT scan of the abdomen and pelvis was performed on a multidetector slice CT scanner. N o intravenous contrast material was utilized. Sagittal and coronal reformatted images were obtained from the axial source images. Images were reviewed on a high-resolution PACS workstation. Exam CTDl vol = 7.6 mGy and DLP = 314 Gy-cm. One of the following 3 dose reduction techniques were used: Auto mated exposure control; adjustment of the mA and/or kV according to patient size; or use of iterativ e reconstruction technique. COMPARISON: None. FINDINGS: There is a midline ventral abdominal and pelvic incision scar. There is mild subcutaneous infiltrat ion or scarring along the length of the scar without a focal collection. There is a probable perium bilical suture in the subcutaneous fat. There is no hernia. Sigmoid colon and anastomotic sutures are present. There is no proximal obstruction. There is no associated free gas or abnormal fluid c ollection to suggest an anastomotic leak or rupture. There is moderate stool throughout the colon. There is scattered colonic diverticuli without focal changes to suggest acute diverticulitis. The a ppendix is not identified. The liver is overall normal in size. No intrahepatic lesions are identified. The gallbladder is no rmal in appearance. There is no definite biliary ductal dilation. Pancreas is normal in appearance. Spleen is unremarkable.. There are no adrenal masses. The aorta is normal caliber. There is 10 mm probable cyst mid pole right kidney. Kidneys are otherwise normal in appearance with out hydronephrosis, mass or calculus. Ureters are of normal caliber. Urinary bladder is unremarkab le. The bones are unremarkable. Limited evaluation lung bases . Minimal basilar atelectasis. IMPRESSION: 1. Duct post ventral abdominal and pelvic surgery with expected postoperative infiltration or scarr ing along the incision defect in the abdominal wall. No abnormal collection or hernia. 2. Sigmoid colon mass amount sutures. No evidence for anastomotic leak or associated obstruction. 3. Moderate stool throughout the colon. No definite obstruction or ileus. 4. Scattered colonic diverticuli without evidence for diverticulitis. 5.. Right renal cyst. No obstructive uropathy. RPTAT: [facility]VK .Sebastián Wiley MD, MD Date Time Electronically viewed and signed by .Sebastián Wiley MD, MD on 09/16/2016 22:56 .K/
[2016-09-16 23:25] VITALS: BP 132/78; PULSE 74; RESP 20; TEMP 98.2
== END 2016-09-16 23:31 | disposition home or self-care (01) ==
LOC: E/R 14:32
DX: R10.30 Lower abdominal pain, unspecified (principal); G89.18 Other acute postprocedural pain; E86.0 Dehydration; E11.9 Type 2 diabetes mellitus without complications; I10 Essential (primary) hypertension; Z85.048 Personal history of other malignant neoplasm of rectum, rectosigmoid junction, and anus
CPT/HCPCS: 36415; 74176; 80053; 81001; 83690; 85025; 85610; 96374; 96375; J1170; J2405; J7030; Z7502; Z7610; 81003

== ENCOUNTER 2016-09-18 18:54 | Emergency (ER) | payer OTHER ==
[~2016-09-18] VITALS: Ht 152.4 cm; Wt 45.0 kg
[~2016-09-18 18:54] MED LIST changes: -ACET325T33 PO; +DOCU-144 PO; +FER325 PO; +OXYC-279 PO
[2016-09-18 19:20] VITALS: Ht 152.4 cm; Wt 45.0 kg
[2016-09-18] MEDS ORDERED: PIPER-TAZO 3.375 GM IV (PMX) 100 ML IVPB STA (21:25)
[2016-09-18] MEDS ORDERED: IOHEXOL 300MG/ML 150 ML BTL ONE (21:33)
[2016-09-18] MEDS ORDERED: SOD CHLORIDE 0.9% 100 ML ONE (21:33)
[2016-09-18 22:14] LABS: POTASSIUM 3.7 mmol/L (3.5-5.1)
[2016-09-18 22:16] LABS: ALBUMIN/GLOBULIN RATIO 1.25; BILIRUBIN,INDIRECT 0.4 mg/dl (0-1.1); BILIRUBIN,TOTAL 0.4 mg/dl (0.2-1.3); CREATININE 0.49 mg/dl (0.44-1.00); TOTAL PROTEIN 7.2 g/dl (6.1-8.1)
[2016-09-18 22:17] LABS: BASOPHILS % 0.5 % (0.0-2.0); CALCIUM 9.7 mg/dl (8.4-10.2); EOSINOPHILS # 0.2 10^3/ul (0.0-0.5); EOSINOPHILS % 3.1 % (0.0-7.0); HEMATOCRIT 30.2 % (37.0-47.0); HEMOGLOBIN 10.2 g/dl (12.0-16.0); LYMPHOCYTES # 1.4 10^3/ul (0.8-2.9); LYMPHOCYTES % 26.5 % (15.0-51.0); MEAN CORPUSCULAR HGB CONC 33.7 g/dl (32.0-37.0); MEAN PLATELET VOLUME 6.3 fl (7.4-10.4); MONOCYTE # 0.4 10^3/ul (0.3-0.9); MONOCYTES % 8.4 % (0.0-11.0); NEUTROPHIL # 3.2 10^3/ul (1.6-7.5); NEUTROPHILS % 61.5 % (39.0-77.0); PLATELET COUNT 415 10^3/UL (140-440); RED BLOOD COUNT 3.29 10^6/ul (4.20-5.40); RED CELL DISTRIBUTION WIDTH 14.5 % (11.5-14.5); UNCORRECTED WBC 5.1 10^3/ul (4.8-10.8); WHITE BLOOD COUNT 5.1 10^3/ul (4.8-10.8)
[2016-09-18 22:31] LABS: ADD UMIC YES; URINE BILIRUBIN (Dip) NEGATIVE (NEGATIVE); URINE BLOOD (Dip) 2+ (NEGATIVE); URINE COLOR LT. YELLOW (YELLOW); URINE GLUCOSE (Dip) NEGATIVE (NEGATIVE); URINE KETONES (Dip) NEGATIVE (NEGATIVE); URINE LEUKOCYTE ESTERASE (Dip) NEGATIVE (NEGATIVE); URINE NITRITE (Dip) NEGATIVE (NEGATIVE); URINE TOTAL PROTEIN (Dip) NEGATIVE (NEGATIVE); URINE UROBILINOGEN (Dip) 0.2 E.U./dL (0.1-1.0)
--- NOTE | 2016-09-18 22:32 | RADRPT ---
PROCEDURE: CT of the abdomen and pelvis CLINICAL INDICATION: Abdominal pain TECHNIQUE: The study was performed utilizing a GE [employer] 64-slice multidetector CT scanner. Dir ect spiral axial sections were obtained through the abdomen and pelvis with intravenous contrast. Af ter administration of if cc of Omnipaque-300, postcontrast images were obtained. Coronal and sagitt al reformatted images were performed. The CTDI vol is 7.25 mGy and the DLP is 318.85 mGy-cm. The im ages were reviewed on a PACS workstation. COMPARISON: No prior studies are available for comparison. FINDINGS: CT abdomen: Mild bibasilar atelectasis versus scarring is once again seen. The remaining lung base s are clear. The heart is not enlarged. No pleural or pericardial effusion is seen. The liver is normal in size and contour. No focal liver lesions or intrahepatic biliary dilatation is seen. The gallbladder is normal. No common bile duct dilatation is seen. The spleen, pancreas, a nd adrenal glands are unremarkable in appearance. The kidneys are normal in size and contour enhance normally. No evidence of hydronephrosis or nephrolithiasis is seen. Simple small bilateral renal c ysts are seen. The stomach is unremarkable. Large bowel is stool-filled. Sigmoid diverticulosis is once again see n without evidence of diverticulitis. Anastomoses sutures are seen in the sigmoid colon once again. Increased soft tissue density in the presacral space is seen adjacent to the sigmoid colon. A sma ll collection of fluid near the anastomosis sutures are seen measuring 2.3 x 1.8 cm in size and is m ore conspicuous on the current examination. The small and remainder of the large bowel are otherwis e unremarkable in course and caliber. No inflammatory changes in the periappendiceal region is seen . No enlarged lymph nodes or fluid collections are seen. The aorta is normal in caliber. Postoperati ve changes of the anterior abdominal wall are again noted. CT pelvis: No pelvic mass, or adenopathy is seen. There is no free fluid. The urinary bladder is normal. The uterus is again noted to be absent. No osseous lesions are seen. Degenerative spondylosi s of the lumbar spine is seen. A probable hemangioma at L1 is once again seen measuring approximate 1.4 cm in size. IMPRESSION: 1. Anastomosis sutures in the sigmoid colon with increased presacral soft tissue density which may be postsurgical in nature again seen. In addition, small collection of fluid is seen at the site of the anastomosis sutures. Continue follow up until resolution is suggested. 2. Stool filled large bowel with sigmoid diverticulosis without evidence of diverticulitis again se en. 3. Postoperative changes in the anterior abdominal wall again seen. RPTAT: HPNM Physician Oliver Date Time Electronically viewed and signed by Boogie Renteria Physician on 09/18/2016 22:32 /
[2016-09-18 22:33] LABS: CONDITION 1; LH ANALYZER COMMENTS 1
[2016-09-18 23:38] LABS: SQUAMOUS EPITHELIAL CELL,UR RARE
[2016-09-18] MEDS ORDERED: CEPH-443 PO (23:43)
[2016-09-18] MEDS ORDERED: BACTDS PO (23:43)
--- NOTE | 2016-09-18 23:46 | ERD ---
ER Documentation Chief Complaint Date/Time DATE: 09/18/16 TIME: 23:43 Chief Complaint Abscess on the incision started today HPI This is a 65-year-old female who recently had a colon mass resected and is here for redness around her incision. The patient was seen here 2 days ago and had a CAT scan of the abdomen that did not show any intra-abdominal pathology or abscess. Patient states that the past 2 days there is been a gradual worsening of erythema around certain parts of her wound with some pus discharge. She has no pain or fever. No vomiting diarrhea no back pain dysuria blood in her stool either. ROS All systems reviewed and are negative except as per history of present illness. Medications Home Meds Active Scripts Sulfamethoxazole-Trimethoprim* (Bactrim* DS) 800-160 Mg Tab, 1 TAB PO BID for 10 Days, TAB Prov:TIA RHOADES DO 09/18/16 Cephalexin* (Keflex*) 500 Mg Capsule, 500 MG PO QID for 10 Days, CAP Prov:TIA RHOADES DO 09/18/16 Oxycodone HCl/Acetaminophen (Percocet 5-325 mg Tablet) 1 Each Tablet, 1 EACH PO TID for PAIN LEVEL 6-10, #15 TAB Prov:SANDRA GOODWIN MD 09/16/16 Docusate Sodium* (Colace*) 100 Mg Capsule, 100 MG PO DAILY, #30 CAP Prov:SANDRA GOODWIN MD 09/16/16 Reported Medications Ferrous Sulfate* (Ferrous Sulfate*) 325 Mg Tabec, 325 MG PO BID, TAB 09/16/16 Hydrocodone/Acetaminophen ([place] 5-325 Tablet) 1 Each Tablet, 1 EACH PO Q6 Y for PAIN, #30 TAB 09/06/16 Discontinued Scripts Acetaminophen* (Tylenol*) 325 Mg Tablet, 2 TAB PO Q6 Y for PAIN AND OR ELEVATED TEMP, #30 TAB Prov:JARAD RICARDO PA-C 08/23/16 Allergies Allergies: Coded Allergies: vancomycin (Verified Allergy, Severe, TACHYCARDIA AND SWELLING, 09/18/16) hydrocodone (Verified Allergy, Intermediate, 09/18/16) NAUSEA tramadol (Verified Allergy, Intermediate, 09/18/16) NAUSEA codeine (Verified Allergy, Mild, DIAPHORESIS, 09/18/16) naproxen (Verified Allergy, Unknown, REDNESS, DIAPHORESIS, 08/29/16) PMhx/Soc History of Surgery: Yes (abd surgery colon mass ) Anesthesia Reaction: No Hx 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 Disorder: No Hx Respiratory Disorders: No Hx Cardiac Disorders: No Hx Psychiatric Problems: No Hx Miscellaneous Medical Probl: Yes (pre-dm) Hx Alcohol Use: No Hx Substance Use: No Hx Tobacco Use: No Smoking Status: Never smoker FmHx Family History: No coronary disease Physical Exam Vitals Vital Signs Date Time Temp Pulse Resp B/P Pulse Ox O2 Delivery O2 Flow Rate FiO2 09/18/16 23:01 98.9 67 18 121/60 100 Room Air 09/18/16 19:20 99.3 84 18 121/72 99 Physical Exam Const: Well-developed, well-nourished Head: Atraumatic, normocephalic Eyes: Normal Conjunctiva, PERRLA, EOMI, normal sclera, no nystagmus ENT: Normal External Ears, Nose and Mouth, moist mucus membranes. Neck: Full range of motion. No meningismus, no lymphadenopathy. Resp: Clear to auscultation bilaterally, no wheezing, rhonchi, rales Cardio: Regular rate and rhythm, no murmurs, S1 S2 present Abd: Soft, non tender x 4, non distended. Normal bowel sounds, no guarding or rebound, no pulsitile abdominal masses or bruits Skin: No petechiae or rashes, no ecchymosis , no maculopapular rash, wound is clean dry and intact no separation/dehiscence. There is some erythema around the middle portion of the wound with a very small area of induration the size of a nickel but there is no pus discharge when pushed on. Back: No midline or flank tenderness Ext: No cyanosis, or edema, FROM x 4, normal inspection, neurovascularly intact x 4 Neur: Awake and alert, STR 5/5 x 4, sensation intact x 4, no focal findings, cerebellum intact Psych: Normal Mood and Affect Result Diagram: 09/18/16213509/18/162135 Results 24 hrs Laboratory Tests Test 09/18/16 21:36 Alanine Aminotransferase (ALT/SGPT) 19IU/L Albumin 4.0g/dl Albumin/Globulin Ratio 1.25 Alkaline Phosphatase 71IU/L Anion Gap 16 Aspartate Amino Transf (AST/SGOT) 21IU/L Basophils # 0.010^3/ul Basophils % 0.5% Blood Morphology Comment Blood Urea Nitrogen 16mg/dl Calcium Level 9.7mg/dl Carbon Dioxide Level 30mmol/L Chloride Level 102mmol/L Creatinine 0.49mg/dl Direct Bilirubin 0.00mg/dl Eosinophils # 0.210^3/ul Eosinophils % 3.1% Globulin 3.20g/dl Glucose Level 109mg/dl Hematocrit 30.2% Hemoglobin 10.2g/dl Indirect Bilirubin 0.4mg/dl Lymphocytes # 1.410^3/ul Lymphocytes % 26.5% Mean Corpuscular Hemoglobin 31.0pg Mean Corpuscular Hemoglobin Concent 33.7g/dl Mean Corpuscular Volume 92.0fl Mean Platelet Volume 6.3fl Monocytes # 0.410^3/ul Monocytes % 8.4% Neutrophils # 3.210^3/ul Neutrophils % 61.5% Nucleated Red Blood Cells # 0.010^3/ul Nucleated Red Blood Cells % 0.0/100WBC Platelet Count 04654^3/UL Potassium Level 3.7mmol/L Red Blood Count 3.2910^6/ul Red Cell Distribution Width 14.5% Sodium Level 144mmol/L Total Bilirubin 0.4mg/dl Total Protein 7.2g/dl Urine Bilirubin NEGATIVE Urine Clarity CLEAR Urine Color LT. YELLOW Urine Glucose NEGATIVE% Urine Hemoglobin 2+ Urine Ketones NEGATIVE Urine Leukocyte Esterase NEGATIVE Urine Microscopic RBC 5-10/HPF Urine Microscopic WBC NONE SEEN/HPF Urine Nitrite NEGATIVE Urine Specific [place] 1.015 Urine Squamous Epithelial Cells RARE Urine Total Protein NEGATIVE Urine Urobilinogen 0.2 E.U./dL Urine pH 6.0 White Blood Count 5.110^3/ul Current Medications Medications (Trade) Dose Ordered Sig/Ju[place] Route PRN Reason Start Time Stop Time Status Last Admin Dose Admin Piperacillin Sod/ Tazobactam Sod (Zosyn 3.375gm/ 100 ml (Pmx)) 100 ml @ 200 mls/hr ONCE STAT IVPB 09/18/16 21:25 09/18/16 21:54 DC 09/18/16 21:48 IV Flush 10 ml 10 ml STK-MED ONCE .ROUTE 09/18/16 21:33 09/18/16 21:34 DC 09/18/16 22:17 Sodium Chloride (NS) 100 ml @ ud STK-MED ONCE .ROUTE 09/18/16 21:33 09/18/16 21:34 DC 09/18/16 22:17 Iohexol (Omnipaque 300mg/ ml) 150 ml STK-MED ONCE .ROUTE 09/18/16 21:33 09/18/16 21:34 DC 09/18/16 22:17 Procedures/MDM PROCEDURE: CT of the abdomen and pelvis CLINICAL INDICATION: Abdominal pain TECHNIQUE: The study was performed utilizing a GE [employer] 64-slice multidetector CT scanner. Direct spiral axial sections were obtained through the abdomen and pelvis with intravenous contrast. After administration of if cc of Omnipaque-300, postcontrast images were obtained. Coronal and sagittal reformatted images were performed. The CTDI vol is 7.25 mGy and the DLP is 318.85 mGy-cm. The images were reviewed on a PACS workstation. COMPARISON: No prior studies are available for comparison. FINDINGS: CT abdomen: Mild bibasilar atelectasis versus scarring is once again seen. The remaining lung bases are clear. The heart is not enlarged. No pleural or pericardial effusion is seen. The liver is normal in size and contour. No focal liver lesions or intrahepatic biliary dilatation is seen. The gallbladder is normal. No common bile duct dilatation is seen. The spleen, pancreas, and adrenal glands are unremarkable in appearance. The kidneys are normal in size and contour enhance normally. No evidence of hydronephrosis or nephrolithiasis is seen. Simple small bilateral renal cysts are seen. The stomach is unremarkable. Large bowel is stool-filled. Sigmoid diverticulosis is once again seen without evidence of diverticulitis. Anastomoses sutures are seen in the sigmoid colon once again. Increased soft tissue density in the presacral space is seen adjacent to the sigmoid colon. A small collection of fluid near the anastomosis sutures are seen measuring 2.3 x 1.8 cm in size and is more conspicuous on the current examination. The small and remainder of the large bowel are otherwise unremarkable in course and caliber. No inflammatory changes in the periappendiceal region is seen. No enlarged lymph nodes or fluid collections are seen. The aorta is normal in caliber. Postoperative changes of the anterior abdominal wall are again noted. CT pelvis: No pelvic mass, or adenopathy is seen. There is no free fluid. The urinary bladder is normal. The uterus is again noted to be absent. No osseous lesions are seen. Degenerative spondylosis of the lumbar spine is seen. A probable hemangioma at L1 is once again seen measuring approximate 1.4 cm in size. IMPRESSION: 1. Anastomosis sutures in the sigmoid colon with increased presacral soft tissue density which may be postsurgical in nature again seen. In addition, small collection of fluid is seen at the site of the anastomosis sutures. Continue follow up until resolution is suggested. 2. Stool filled large bowel with sigmoid diverticulosis without evidence of diverticulitis again seen. 3. Postoperative changes in the anterior abdominal wall again seen. RPTAT: HPNM Physician Oliver Date Time Electronically viewed and signed by Boogie Renteria Physician on 09/18/2016 22 :32 / CC: TIA RHOADES DO Patient received IV antibiotics. There is no evidence of any abscess under the skin in the abdominal wall. Told the patient to apply warm compresses several times a day we will discharge home with Keflex and Bactrim. Told the patient to monitor herself if she gets any worse the next 24 hours to return for reevaluation Departure Diagnosis: Primary Impression: Cellulitis, abdominal wall Condition: Stable Patient Instructions: Cellulitis TIA RHOADES DO Sep 18, 2016 23:46
[2016-09-19 00:13] VITALS: BP 120/62; PULSE 65; RESP 18; TEMP 98.1
== END 2016-09-19 00:14 | disposition home or self-care (01) ==
LOC: FTE 18:54 → E/R 09-19 00:14
DX: L03.311 Cellulitis of abdominal wall (principal); T81.4XXA Infection following a procedure, initial encounter; Y82.8 Other medical devices associated with adverse incidents
CPT/HCPCS: 36415; 74177; 80053; 81001; 85025; 96374; J2543; Q9967; Z7502; Z7610; 81003

== ENCOUNTER 2016-09-25 11:55 | Outpatient (CLI) | payer OTHER ==
[~2016-09-25] VITALS: Ht 152.4 cm; Wt 44.5 kg
[~2016-09-25 11:55] MED LIST changes: +BACTDS PO; +CEPH-443 PO
[2016-09-25 12:02] VITALS: BP 120/58; PULSE 68; RESP 16; Ht 152.4 cm; Wt 44.5 kg
--- NOTE | 2016-09-25 12:29 | PN ---
Date/Time of Note Date/Time of Note DATE: 09/25/16 TIME: 12:19 Outpatient Progress Note Chief Complaint Rectal cancer/that is post surgery HPI Rectal cancer/patient has rectal cancer, patient had the surgery, no nausea vomiting, no fever or chill, abdominal pain, no fevers chill, appetite normal, Status post surgery/patient has a surgery recently, no fever or chill, betty out, minimal redness, patient on antibiotic, Review of Systems Const: No Fever, no chills, no Wt. loss, no Fatigue, normal appetite, no diaphoresis. Eyes: No pain, no discharge, no redness, no visual change, no foreign body. ENT: No pain, no bleeding, no congestion, no sore throat, no dysphagia, no discharge or rhinitis. Lymph: No adenopathy, no tender nodes, no lymphedema. Resp: No SOB, no cough, no sputum, no wheezing, no chest pain. CV: No chest pain, no palpitaions, no PARDO, no PND, no edema. GI: Normal appetite, minimal abdominal pain, minimal redness operative site, betty out and no flank pain, no discharge, no bleeding. Musc: No bone/joint pain, no back pain, no neck pain, no knee pain, no restricted ROM. Skin: No rash, no skin lesions, no erythema, no laceration, no bruising, no pruritus. Neuro: No POON, no dizziness, no syncope, no seizure, no focal-weakness. Endo: No polyuria, no polydypsia, no dry-skin, no temp-intolerance. Psych: No hallucinations, no depression, no anxiety, no suicidal ideation. Ext: No edema, no pain, no ulcer, no weakness. Physical Exam Vital Signs Date Time Temp Pulse Resp B/P Pulse Ox O2 Delivery O2 Flow Rate FiO2 09/25/16 12:02 97.5 68 16 120/58 99 Room Air General Appearance: A 65 year-old female] who appears well-developed, well- nourished, in no acute distress. HEENT: Head normocephalic, atraumatic. Pupils equal, round, reactive to light and accommodate. Sclerae are no jaundice. Nasal turbinates pink without erythema or nasal discharge. Mucous membranes pink and moist without lesions. Oropharynx clear without any exudate or discharge. NECK: Supple. Trachea midline, No thyromegaly, No cervical lymphadenopathy, No mass, No carotid bruits, No JVD, Carotid pulses 2+ bilaterally. PULMONARY: Clear to auscultaion bilaterally, No retractions, Chest expansion symmetric bilaterally, no rales, no ronchi, no dulness on percussion. CARDIAC: Normal SI and S2, Regular rate and rythm, no murmur, gallop, or rub. GASTROINTESTINAL: Abdomen is soft, non-tender, patient is minimal redness at OpSite, betty removed, Non Rigid, No distention, Positive bowel sounds x4 quadrants, Liver normal. SKIN: Warm, dry, no rash, no bruise, no echmosis minimal redness at OpSite, EXTREMITIES: Bilateral lower extremities normal, no edema, no phlabitus, pulse palpable, no contracture. MUSCULOSKELETAL: Spine Normal, Non-tender, Normal range of motion, No swelling, no deformity, no clubbing, or cyanosis, the patient has no edema to bilateral lower extremities, dorsalis pedis pulses palpable bilaterally. NEUROLOGIC: The patient is awake, alert, oriented, responding to yes/no questions appropriately, moving all extremities, cranial nerve intact, normal strenght, normal power, normal coordination, normal gait. Allergies Coded Allergies: vancomycin (Verified Allergy, Severe, TACHYCARDIA AND SWELLING, 09/18/16) hydrocodone (Verified Allergy, Intermediate, 09/18/16) NAUSEA tramadol (Verified Allergy, Intermediate, 09/18/16) NAUSEA codeine (Verified Allergy, Mild, DIAPHORESIS, 09/18/16) naproxen (Verified Allergy, Unknown, REDNESS, DIAPHORESIS, 08/29/16) PMH No change Social Hx No change Family Hx No change Assessment/Plan Impression Rectal cancer/status post rectal surgery Plan Patient doing very well, patient has minimal redness at OpSite, patient on Keflex and Bactrim, patient still has a few tablets left, one looks okay, Patient encouraged to follow with the primary care physician, CBC CMP noted, looks great, anemia, no abnormal liver function tests or kidney functions, no anemia, discussed with the patient, patient encouraged to follow with the present care physician and Further follow-up for oncologist, per primary physician Medications Home Meds Active Scripts Oxycodone HCl/Acetaminophen (Percocet 5-325 mg Tablet) 1 Each Tablet, 1 EACH PO TID for PAIN LEVEL 6-10, #15 TAB Prov:SANDRA GOODWIN MD 09/16/16 Docusate Sodium* (Colace*) 100 Mg Capsule, 100 MG PO DAILY, #30 CAP Prov:SANDRA GOODWIN MD 09/16/16 Reported Medications Ferrous Sulfate* (Ferrous Sulfate*) 325 Mg Tabec, 325 MG PO BID, TAB 09/16/16 Discontinued Reported Medications Hydrocodone/Acetaminophen ([place] 5-325 Tablet) 1 Each Tablet, 1 EACH PO Q6 Y for PAIN, #30 TAB 09/06/16 Discontinued Scripts Sulfamethoxazole-Trimethoprim* (Bactrim* DS) 800-160 Mg Tab, 1 TAB PO BID for 10 Days, TAB Prov:TIA RHOADES DO 09/18/16 Cephalexin* (Keflex*) 500 Mg Capsule, 500 MG PO QID for 10 Days, CAP Prov:LEANA MARIAOSRICOSTMEGANS AHarshil DO 09/18/16 DOUGIE GARZA MD Sep 25, 2016 12:29
== END 2016-09-25 16:54 | disposition home or self-care (01) ==
LOC: DCC 11:55
PROVIDERS: ATTEND Internal Medicine
DX: C20 Malignant neoplasm of rectum (principal); Z79.2 Long term (current) use of antibiotics; Z98.890 Other specified postprocedural states
CPT/HCPCS: G0463

== ENCOUNTER 2016-12-28 06:42 | Emergency (ER) | payer OTHER ==
[~2016-12-28] VITALS: Ht 154.9 cm; Wt 56.0 kg
[~2016-12-28 06:42] MED LIST changes: -BACTDS PO; -CEPH-443 PO; -HYDR-906 PO
[2016-12-28 06:44] VITALS: Ht 154.9 cm; Wt 56.0 kg
--- NOTE | 2016-12-28 07:39 | ERD ---
ER Documentation Chief Complaint Date/Time DATE: 12/28/16 TIME: 07:28 Chief Complaint pt bib self with c/o right arm pain starting last night, unk cause HPI 66-year-old female presented emergency department for right elbow pain that started 2 days ago. Patient stated that this started while he was opening the refrigerator, tripped, fell, landed on her right elbow. Denies headache, head injury, loss of consciousness, dizziness, dizziness prior to fall, blurry vision, changes in vision, photophobia, facial pain, ear pain, throat pain, difficulty swallowing, neck pain, shoulder pain, chest pain, cough , hemoptysis, abdominal pain, back pain, loss of appetite, nausea, vomiting, hematochezia, diarrhea, constipation, urinary symptoms, , the possibility of being , bladder and bowel incontinences, numbness or tingling sensation, difficulty walking, recent travel, recent exposure to illness, recent antibiotic use in the last 3 months, fever, chills. Allergy: Reviewed. PMH: Prediabetes. Family medical history: Denies. Medications: Denies taking any prescription medication. Surgery: Denies. Primary Social History: Not working at this time. Right-handed. Denies smoking, use of alcohol, use of illegal drugs. ROS All systems reviewed and are negative except as per history of present illness. Medications Home Meds Active Scripts Oxycodone HCl/Acetaminophen (Percocet 5-325 mg Tablet) 1 Each Tablet, 1 EACH PO TID for PAIN LEVEL 6-10, #15 TAB Prov:SANDRA GOODWIN MD 09/16/16 Docusate Sodium* (Colace*) 100 Mg Capsule, 100 MG PO DAILY, #30 CAP Prov:SANDRA GOODWIN MD 09/16/16 Reported Medications Ferrous Sulfate* (Ferrous Sulfate*) 325 Mg Tabec, 325 MG PO BID, TAB 09/16/16 Allergies Allergies: Coded Allergies: vancomycin (Verified Allergy, Severe, TACHYCARDIA AND SWELLING, 09/18/16) hydrocodone (Verified Allergy, Intermediate, 09/18/16) NAUSEA tramadol (Verified Allergy, Intermediate, 09/18/16) NAUSEA codeine (Verified Allergy, Mild, DIAPHORESIS, 09/18/16) naproxen (Verified Allergy, Unknown, REDNESS, DIAPHORESIS, 08/29/16) PMhx/Soc History of Surgery: Yes (abd surgery colon mass ) Anesthesia Reaction: No Hx 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 Disorder: No Hx Respiratory Disorders: No Hx Cardiac Disorders: No Hx Psychiatric Problems: No Hx Miscellaneous Medical Probl: Yes (pre-dm) Hx Alcohol Use: No Hx Substance Use: No Hx Tobacco Use: No Physical Exam Vitals Vital Signs Date Time Temp Pulse Resp B/P Pulse Ox O2 Delivery O2 Flow Rate FiO2 12/28/16 06:44 97.3 71 16 136/63 100 Physical Exam CONSTITUTIONAL: Well-appearing; well-nourished; in no apparent distress. HEAD: Normocephalic; atraumatic. EYES: Conjunctiva clear, sclera non-icteric, EOM intact. PERRL Ears: Hearing intact. EACs clear, TMs non-bulging, non-inflamed, translucent & mobile, ossicles normal appearance, No obstructions, no erythema, no discharges Nose: No obstructions. No polyps. No external lesions. Mucosa non-inflamed. No external lesions, septum and turbinates normal. No rhinorrhea. No discharges. Frontal sinus is non-tender to palpation. Maxillary sinus is non-tender to palpation. MOUTH: Moist mucous membranes, no lesion, no obstructions, no vesicles, no thrush, patent airway Throat: Uvula in midline. Right tonsil is +1 with no erythema, no exudate. Left tonsil is +1 with no erythema, no exudate. Tolerating secretions well. Good gag reflex. Patent airway. Neck: Supple, without lesions, bruits, or adenopathy. No mass. Thyroid non- enlarged and non-tender to palpation. CHEST: Symmetrical chest. Respirations even and not labored. No retractions noted. CARDIOVASCULAR: Normal S1, S2. RRR. No murmurs, gallops. RESPIRATORY: Normal chest excursion with respiration; breath sounds clear and equal bilaterally; no wheezes, rhonchi, or rales. Breathing even and unlabored. Speaking in clear, full, and complete sentences w/ ease. ABDOMEN: Normal bowel sounds normal. Soft, round, non-distended, non-guarding, no tenderness, no rebound, no organomegaly, no masses, no pulsating abdominal mass. No hernia. No peritoneal signs. : No CVA tenderness. BACK: Symmetrical shoulder. Spine is midline without deformity, tenderness. No evidence of trauma or deformity. PELVIS: Stable pelvis. No evidence of trauma or deformity. MUSCULOSKELETAL: Normal gait and station. No misalignment, asymmetry, crepitation, defects, tenderness, masses, effusions, decreased range of motion, instability, atrophy or abnormal strength or tone in the head, neck, spine, ribs , pelvis or extremities except right elbow has limited range of motion with tenderness to palpation but has no obvious deformity/swelling/discoloration. Right wrist/hand/shoulder is unremarkable. Left upper extremities unremarkable. No calf tenderness. NEUROVASCULAR: Distal pulses are present. Pedal pulse are present, equal, and normal. Capillary refills are < 2 seconds. NEUROLOGIC: Alert and oriented x4. Speaks full and clear sentences. Cranial Nerves II-XII normal. Sensation to pain, touch, and proprioception normal. Grossly unremarkable. No neurologic deficits. Romberg test is negative. PSYCHOLOGICAL: The patients mood and manner are appropriate. No hallucinations , delusions. Not SI. Not HI. Has the capacity to decide for self SKIN: Normal for age and ethnicity; warm; dry; good turgor; no apparent lesions or exudates. No rashes, hives, discoloration. Intact. Procedures/MDM Examination: Please see physical examination. Disease process, medical treatment was explained to the patient and family member. They verbalized understanding and agreed with the diagnostic tests, medical treatment, and follow-up care. Radiology: X-ray of the right elbow. Impression: No radiographic evidence of acute osseous abnormality or joint effusion. Focal soft tissue swelling dorsally over the proximal ulna and large degenerative sublime tubercle osteophyte. Treatment: Right arm sling. No neurovascular deficits prior to and after the application of arm sling. Re-evaluation: Denies headache, dizziness, blurry vision, neck pain, shoulder pain, chest pain, back pain, abdominal pain, nausea. No episode of emesis in the emergency department. There is no right upper/right lower/epigastric/left upper/left lower abdominal tenderness on light and deep palpation. No peritoneal signs. No CVA tenderness. No neurovascular deficits. Consultation: None. Differential diagnosis: Fracture versus dislocation versus contusion versus sprain Medical decision makin-year-old female presented emergency department for right elbow pain that started 2 days ago. Patient stated that this started while he was opening the refrigerator, tripped, fell, landed on her right elbow. Patient's complaint, patient history about her complaint, my physical findings, diagnostic test results, my reevaluation are consistent with my final diagnosis of right elbow pain. Medications prescribed are the following: None. Instructed on RICE. Patient and family member are made aware of the side effects and adverse reactions of the medications prescribed. Instructed on when to seek emergent and medical attention in case allergic/anaphylactic reactions or severe side effects and or adverse reactions to medications. Patient and family member verbalized understanding. Patient instructed Instructed to follow-up with his PCP in 24-48 hours. PCP to refer patient to orthopedic doctor in the next days end of weeks. Instructed to Call 911 for chest pain, shortness of breath. Advised to come back here in ED as soon as possible for severity of symptoms which includes but not limited to: any new symptoms; shortness of breath/difficulty of breathing; cardiovascular changes; severe gastrointestinal symptoms; signs and symptoms of bleeding and or infection; signs of compartment syndrome/neurovascular changes; neurological changes/deficits. Patient and family member verbalized understanding. Upon discharge, patient is alert and oriented x 4, speaks full and clear sentences, denies pain, has no neurological deficits, has no neurovascular deficits, difficulty of breathing. Breathing even and unlabored. Lung sounds are clear to auscultation. Not in distress. Appears comfortable. Ambulatory with steady gait. Appears satisfied with care provided here in ED. Departure Diagnosis: Primary Impression: Right elbow pain Additional Impression: Contusion Condition: Stable Additional Instructions: Patient instructed Instructed to follow-up with his PCP in 24-48 hours. PCP to refer patient to orthopedic doctor in the next days end of weeks. Instructed to Call 911 for chest pain, shortness of breath. Advised to come back here in ED as soon as possible for severity of symptoms which includes but not limited to: any new symptoms; shortness of breath/difficulty of breathing; cardiovascular changes; severe gastrointestinal symptoms; signs and symptoms of bleeding and or infection; signs of compartment syndrome/neurovascular changes; neurological changes/deficits. Patient and family member verbalized understanding. MICHAEL CRABTREE December 28, 2016 07:39
--- NOTE | 2016-12-28 08:19 | RADRPT ---
PROCEDURE: XR Elbow. CLINICAL INDICATION: Right elbow pain TECHNIQUE: AP, lateral and oblique views of the right elbow performed. COMPARISON: None. FINDINGS: There is soft tissue swelling dorsally over the proximal ulna. There is no acute fracture. A large sublime tubercle osteophyte is noted. There is no joint effusion. Alignment is normal. IMPRESSION: 1. No radiographic evidence of acute osseous abnormality or joint effusion. 2. Focal soft tissue swelling dorsally over the proximal ulna and large degenerative sublime tubercl e osteophyte. RPTAT: UU .Ayush Eid MD, MD Date Time Electronically viewed and signed by .Ayush Eid MD, on 12/28/2016 08:19 .Ruel/
== END 2016-12-28 09:01 | disposition home or self-care (01) ==
LOC: FTE 06:42
DX: S50.01XA Contusion of right elbow, initial encounter (principal); W01.0XXA Fall on same level from slipping, tripping and stumbling without subsequent striking against object, initial encounter; Y92.9 Unspecified place or not applicable
CPT/HCPCS: 73080; Z7502

== ENCOUNTER 2017-04-13 13:46 | Inpatient (IN) | payer MEDICARE, OTHER ==
[~2017-04-13] VITALS: Ht 160 cm; Wt 48.0 kg
[2017-04-13 04:00] VITALS: BP 119/64; RESP 17
[2017-04-13 15:38] LABS: URINE BLOOD (Dip) POC 2+ (NEGATIVE)
[2017-04-13 15:50] LABS: HEMATOCRIT 23.9 % (37.0-47.0); HEMOGLOBIN 8.3 g/dl (12.0-16.0); MEAN CORPUSCULAR HEMOGLOBIN 31.6 pg (29.0-33.0); MEAN CORPUSCULAR HGB CONC 34.7 g/dl (32.0-37.0); MEAN CORPUSCULAR VOLUME 90.9 fl (82.0-101.0); MEAN PLATELET VOLUME 8.6 fl (7.4-10.4); PLATELET COUNT 364 10^3/UL (140-415); RED BLOOD COUNT 2.63 10^6/ul (4.20-5.40); RED CELL DISTRIBUTION WIDTH 13.8 % (11.5-14.5)
--- NOTE | 2017-04-13 15:51 | RADRPT ---
PROCEDURE: XR Chest. CLINICAL INDICATION: Chest pain TECHNIQUE: Single portable view of the chest was obtained COMPARISON: 08/29/2016 FINDINGS: The heart and mediastinum are within normal limits. There are mild bibasilar atelectatic changes. The lungs are otherwise clear. There is no pleural effusion or pneumothorax. RPTAT: AA IMPRESSION: Mild linear bibasilar atelectatic changes. .Cali Rosario MD, MD Date Time Electronically viewed and signed by .Cali Rosario MD, MD on 04/13/2017 15:51 .S/
[2017-04-13 15:58] LABS: POSITIVE DIFF @See below
[2017-04-13] MEDS ORDERED: SOD CHLORIDE 0.9% IV ONE (16:00)
[2017-04-13] MEDS ORDERED: AZEL137S9 NASAL (16:08)
[2017-04-13] MEDS ORDERED: IPRA15SP NS (16:09)
[2017-04-13 16:23] LABS: ADD UMIC YES; UR ASCORBIC ACID NEGATIVE (NEGATIVE); UR BILIRUBIN (Dip) NEGATIVE (NEGATIVE); UR BLOOD (Dip) 2+ mg/dL (NEGATIVE); UR CLARITY CLEAR (CLEAR); UR COLOR YELLOW (YELLOW); UR GLUCOSE (Dip) NEGATIVE (NEGATIVE); UR KETONES (Dip) TRACE mg/dL (NEGATIVE); UR LEUKOCYTE ESTERASE (Dip) NEGATIVE Leu/ul (NEGATIVE); UR NITRITE (Dip) NEGATIVE (NEGATIVE); UR RBC 1 /HPF (0-5); UR SPECIFIC GRAVITY (Dip) 1.006 (1.003-1.030); UR TOTAL PROTEIN (Dip) NEGATIVE (NEGATIVE); UR UROBILINOGEN (Dip) NEGATIVE (NEGATIVE)
[2017-04-13 16:41] LABS: LYMPHOCYTES # 1.8 10^3/ul (0.8-2.9); MONOCYTE # 1.1 10^3/ul (0.3-0.9); MONOCYTES % (M) 7 % (0-11)
[2017-04-13 17:17] LABS: INR 2.73; PT RATIO 2.3
[2017-04-13 17:20] LABS: ALBUMIN 2.7 g/dl (3.3-4.9); ALBUMIN/GLOBULIN RATIO 0.79; BILIRUBIN,INDIRECT 0.5 mg/dl (0-1.1); BILIRUBIN,TOTAL 0.5 mg/dl (0.2-1.3); CALCIUM 8.4 mg/dl (8.4-10.2); CREATININE 0.74 mg/dl (0.44-1.00); POTASSIUM 4.2 mmol/L (3.5-5.1); TOTAL PROTEIN 6.1 g/dl (6.1-8.1)
[2017-04-13] MEDS ORDERED: PIPER-TAZO 3.375 GM IV (PMX) 100 ML IVPB ONE ×2 (17:30→20:30)
[2017-04-13] MEDS ORDERED: SOD CHLORIDE 0.9% 100 ML ONE (17:46)
[2017-04-13] MEDS ORDERED: IOHEXOL 300MG/ML 150 ML BTL ONE (17:46)
[2017-04-13 18:02] LABS: D-DIMER 5062.43 ng/ml (<460); PROTIME 29.3 Sec (12.2-14.2)
[2017-04-13 18:04] LABS: PARTIAL THROMBOPLASTIN TIME > 180.0 Sec (25.0-35.0)
--- NOTE | 2017-04-13 18:31 | RADRPT ---
PROCEDURE: CT chest, abdomen, and pelvis with contrast. CLINICAL INDICATION: Dyspnea. Chest pain. History of rectal cancer status post resection. Leukocyto sis and abdominal pain. TECHNIQUE: CT scan of the chest, abdomen, and pelvis was performed after the uneventful intravenous administration of 100 cc of Omnipaque-300. Coronal and sagittal reformatted images were obtained fr om the axial source images. Images were reviewed on a high-resolution PACS workstation. The total ex am CTDI equals 7.54 mGy and the total exam DLP equals 46.62 mGy-cm. One or more of the following dose reduction techniques were used: - Automated exposure control. - Adjustment of the mA and/or kV according to patient size. - Use of iterative reconstruction technique. COMPARISON: Chest x-ray dated 04/13/[address] of the abdomen and pelvis dated 09/18/2016. FINDINGS: Lungs, pleura, airways, and thoracic inlet: There is minor consolidation associated with cylindrica l bronchiectasis in the lingula. There is subsegmental atelectasis versus scarring in the lateral ba fco left lower lobe, right middle lobe, and right lower lobe. There is no focal consolidation, effus ion, or pneumothorax. There is a 3 mm nodule at the right lung apex and a 3 mm pleural-based nodule in the lateral basal right lower lobe. The tracheobronchial tree is patent and normal in course and caliber. Cardiovascular system, mediastinum, and chest lymphatics: The heart is normal in size without peric ardial thickening or effusion. The aorta is nonaneurysmal. There is right hilar adenopathy with a do minant node measuring 12 mm in short axis. There is no axillary or mediastinal adenopathy. Hepatobiliary system and spleen: There is a multiloculated, rim enhancing collection spanning the a nterior right and medial left hepatic lobes measuring 12.4 x 9.2 cm in axial dimension and 11.1 cm i n craniocaudal dimension, consistent with hepatic abscess. There is scattered hypo and hyperenhancem ent surrounding the abscess at the periphery of the liver, likely perfusion on nature. There is no i ntra or extrahepatic biliary ductal dilatation. The gallbladder is unremarkable. The spleen is unrem arkable. The pancreas is unremarkable. Adrenal glands and genitourinary system: The adrenal glands are unremarkable. There is an indetermi simona 1.5 cm hypodense lesion at the midportion of the right kidney, unchanged in size and appearance . There is no hydronephrosis. The urinary bladder is distended. The uterus is surgically absent. Th ere are no adnexal masses. Gastrointestinal system: There is postoperative change with a suture line in the rectosigmoid junct ion with significant decrease in size of a small collection in the presacral region, suggestive of a resolving seroma or other postoperative change. There is no abnormal soft tissue thickening within this region. There is sigmoid diverticulosis without evidence of diverticulitis. There is no bowel w all thickening or evidence of obstruction. The appendix is in the right lower quadrant and is unrema rkable. Peritoneum and abdominopelvic lymphatics: There is no free intraperitoneal air or free fluid. There is no mesenteric or retroperitoneal adenopathy. Musculoskeletal system and soft tissues: A probable hemangioma in the L1 vertebral body is unchange d in appearance. No concerning osseous lesion is identified. There is mild to moderate multilevel de generative spondylosis. There is linear infiltration of the ventral abdominal subcutaneous fat, cons istent with a prior incisional line. IMPRESSION: 1. Multiloculated, rim enhancing collection spanning the anterior right medial left hepatic lobes m easuring 12.4 x 9.2 x 11.1 cm, highly suggestive of abscess given the patient's clinical data. 2. Minor consolidation with associated cylindrical bronchiectasis in the lingula, likely the sequel a of chronic infection. 3. Nonspecific nodules in the right lung measuring up to 3 mm in diameter. Attention on follow-up i s recommended. 4. Nonspecific right hilar adenopathy. Attention on follow-up is recommended. 5. Indeterminate 1.5 cm hypodense lesion at the midportion of the right kidney, unchanged in size a nd appearance when compared the prior exam from 09/18/2016. Attention on follow-up is recommended. 6. Postoperative change at the rectosigmoid junction with resolution of a small presacral collectio n, suggestive of a resolving seroma or other postoperative collection. No findings to suggest residu al or recurrent disease at the operative site. 7. Similar appearance of a probably benign hemangioma of the L1 vertebral body. These findings discussed with Dr. Nicholas in the ED at 1816 hours on 04/13/2017. RPTAT: HLBP .Jc Del Castillo MD, MD Date Time Electronically viewed and signed by .Jc Del Castillo MD, MD on 04/13/2017 18:31 .P/
--- NOTE | 2017-04-13 18:36 | RADRPT ---
PROCEDURE: CT chest, abdomen, and pelvis with contrast. CLINICAL INDICATION: Dyspnea. Chest pain. History of rectal cancer status post resection. Leukocytos is and abdominal pain. TECHNIQUE: CT scan of the chest, abdomen, and pelvis was performed after the uneventful intravenous administration of 100 cc of Omnipaque-300. Coronal and sagittal reformatted images were obtained fro m the axial source images. Images were reviewed on a high-resolution PACS workstation. The total exa m CTDI equals 7.54 mGy and the total exam DLP equals 46.62 mGy-cm. One or more of the following dose reduction techniques were used: - Automated exposure control. - Adjustment of the mA and/or kV according to patient size. - Use of iterative reconstruction technique. COMPARISON: Chest x-ray dated 04/13/[address] of the abdomen and pelvis dated 09/18/2016. FINDINGS: Lungs, pleura, airways, and thoracic inlet: There is minor consolidation associated with cylindrical bronchiectasis in the lingula. There is subsegmental atelectasis versus scarring in the lateral bas al left lower lobe, right middle lobe, and right lower lobe. There is no focal consolidation, effusi on, or pneumothorax. There is a 3 mm nodule at the right lung apex and a 3 mm pleural-based nodule i n the lateral basal right lower lobe. The tracheobronchial tree is patent and normal in course and c aliber. Cardiovascular system, mediastinum, and chest lymphatics: The heart is normal in size without perica rdial thickening or effusion. The aorta is nonaneurysmal. There is right hilar adenopathy with a dom inant node measuring 12 mm in short axis. There is no axillary or mediastinal adenopathy. Hepatobiliary system and spleen: There is a multiloculated, rim enhancing collection spanning the an terior right and medial left hepatic lobes measuring 12.4 x 9.2 cm in axial dimension and 11.1 cm in craniocaudal dimension, consistent with hepatic abscess. There is scattered hypo and hyperenhanceme nt surrounding the abscess at the periphery of the liver, likely perfusion on nature. There is no in tra or extrahepatic biliary ductal dilatation. The gallbladder is unremarkable. The spleen is unrema rkable. The pancreas is unremarkable. Adrenal glands and genitourinary system: The adrenal glands are unremarkable. There is an indetermin ate 1.5 cm hypodense lesion at the midportion of the right kidney, unchanged in size and appearance. There is no hydronephrosis. The urinary bladder is distended. The uterus is surgically absent. Ther e are no adnexal masses. Gastrointestinal system: There is postoperative change with a suture line in the rectosigmoid juncti on with significant decrease in size of a small collection in the presacral region, suggestive of a resolving seroma or other postoperative change. There is no abnormal soft tissue thickening within t his region. There is sigmoid diverticulosis without evidence of diverticulitis. There is no bowel wa ll thickening or evidence of obstruction. The appendix is in the right lower quadrant and is unremar kable. Peritoneum and abdominopelvic lymphatics: There is no free intraperitoneal air or free fluid. There is no mesenteric or retroperitoneal adenopathy. Musculoskeletal system and soft tissues: A probable hemangioma in the L1 vertebral body is unchanged in appearance. No concerning osseous lesion is identified. There is mild to moderate multilevel deg enerative spondylosis. There is linear infiltration of the ventral abdominal subcutaneous fat, consi stent with a prior incisional line. IMPRESSION: 1. Multiloculated, rim enhancing collection spanning the anterior right medial left hepatic lobes me asuring 12.4 x 9.2 x 11.1 cm, highly suggestive of abscess given the patient's clinical data. 2. Minor consolidation with associated cylindrical bronchiectasis in the lingula, likely the sequela of chronic infection. 3. Nonspecific nodules in the right lung measuring up to 3 mm in diameter. Attention on follow-up is recommended. 4. Nonspecific right hilar adenopathy. Attention on follow-up is recommended. 5. Indeterminate 1.5 cm hypodense lesion at the midportion of the right kidney, unchanged in size an d appearance when compared the prior exam from 09/18/2016. Attention on follow-up is recommended. 6. Postoperative change at the rectosigmoid junction with resolution of a small presacral collection , suggestive of a resolving seroma or other postoperative collection. No findings to suggest residua l or recurrent disease at the operative site. 7. Similar appearance of a probably benign hemangioma of the L1 vertebral body. These findings discussed with Dr. Nicholas in the ED at 1816 hours on 04/13/2017. RPTAT: HLBP .Jc Del Castillo MD, MD Date Time Electronically viewed and signed by .Jc Del Castillo MD, MD on 04/13/2017 18:36 .P/
[2017-04-13 19:14] LABS: INR 1.45; PT RATIO 1.4
[2017-04-13 19:15] LABS: PARTIAL THROMBOPLASTIN TIME 29.3 Sec (25.0-35.0)
[2017-04-13 19:50] LABS: PROTIME 17.7 Sec (12.2-14.2)
[2017-04-13 20:19] VITALS: TEMP 98
--- NOTE | 2017-04-13 20:33 | ERA ---
ER Documentation Chief Complaint Date/Time DATE: 04/13/17 Chief Complaint CHEST PAIN X3 DAYS HPI The patient is a 66-year-old female, presenting with intermittent sternal chest pain for 3 days, associated with dyspnea and diarrhea. She denies fever, chills , neck pain, chest pain with exertion or vomiting or diaphoresis. He denied dysuria. She does not smoke nor drink Past medical history: History of rectal carcinoma, status post resection ROS All systems reviewed and are negative except as per history of present illness. Medications Home Meds Reported Medications Ipratropium [place] (Ipratropium [place]) 15 Ml Richey, 15 ML NS BID, SPRAY 04/13/17 Azelastine Hcl* (Azelastine Hcl*) 137 Mcg/0.137 Ml Richey.pump, 1 SPRAY NASAL BID , #1 EA TO EACH NOSTRIL 04/13/17 Discontinued Reported Medications Ferrous Sulfate* (Ferrous Sulfate*) 325 Mg Tabec, 325 MG PO BID, TAB 09/16/16 Discontinued Scripts Oxycodone HCl/Acetaminophen (Percocet 5-325 mg Tablet) 1 Each Tablet, 1 EACH PO TID for PAIN LEVEL 6-10, #15 TAB Prov:SANDRA GOODWIN MD 09/16/16 Docusate Sodium* (Colace*) 100 Mg Capsule, 100 MG PO DAILY, #30 CAP Prov:SANDRA GOODWIN MD 09/16/16 Allergies Allergies: Coded Allergies: vancomycin (Verified Allergy, Severe, TACHYCARDIA AND SWELLING, 04/13/17) hydrocodone (Verified Allergy, Intermediate, 04/13/17) NAUSEA tramadol (Verified Allergy, Intermediate, 04/13/17) NAUSEA codeine (Verified Allergy, Mild, DIAPHORESIS, 04/13/17) naproxen (Verified Allergy, Unknown, REDNESS, DIAPHORESIS, 04/13/17) PMhx/Soc History of Surgery: Yes (abd surgery colon mass ) Anesthesia Reaction: No Hx 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 Disorder: No Hx Respiratory Disorders: No Hx Cardiac Disorders: No Hx Psychiatric Problems: No Hx Miscellaneous Medical Probl: Yes (pre-dm) Hx Alcohol Use: No Hx Substance Use: No Hx Tobacco Use: No Smoking Status: Never smoker Physical Exam Vitals Vital Signs Date Time Temp Pulse Resp B/P Pulse Ox O2 Delivery O2 Flow Rate FiO2 04/13/17 20:19 98.0 119 20 122/99 100 Room Air 04/13/17 19:06 99 22 100/58 100 Room Air 04/13/17 15:53 97.7 78 23 89/60 100 Room Air 04/13/17 15:34 Nasal Cannula 04/13/17 14:09 96.0 82 18 86/54 97 Physical Exam Const: No acute distress. Head: Atraumatic. Eyes: Normal Conjunctiva. ENT: Normal External Ears, Nose and Mouth. Neck: Full range of motion. No meningismus. Resp: Clear to auscultation bilaterally. Cardio: Regular rate and rhythm. Abd: Soft, non distended, normal bowel sounds,Vague and diffuse abdominal discomfort, no rigidity, rebound, CVA tenderness Skin: No petechiae or rashes. Back: No midline or flank tenderness. Ext: No cyanosis, or edema. Neur: Awake and alert. No focal deficit Psych: Normal Mood and Affect. Result Diagram: 04/13/17 1530 04/13/17 1600 Results 24 hrs Laboratory Tests Test 04/13/17 15:30 04/13/17 15:40 04/13/17 15:45 04/13/17 16:00 White Blood Count 16.010^3/ul Red Blood Count 2.6310^6/ul Hemoglobin 8.3g/dl Hematocrit 23.9% Mean Corpuscular Volume 90.9fl Mean Corpuscular Hemoglobin 31.6pg Mean Corpuscular Hemoglobin Concent 34.7g/dl Red Cell Distribution Width 13.8% Platelet Count 70672^3/UL Mean Platelet Volume 8.6fl Neutrophils % % Segmented Neutrophils % (Manual) 67% Band Neutrophils % (Manual) 15% Lymphocytes % % Lymphocytes % (Manual) 11% Monocytes % % Monocytes % (Manual) 7% Eosinophils % % Basophils % % Nucleated Red Blood Cells % 0.0/100WBC Neutrophils # (Manual) 11.110^3/ul Band Neutrophils # 2.410^3/ul Absolute Lymphocytes (Manual) 1.710^3/ul Lymphocytes # 1.810^3/ul Monocytes # 1.110^3/ul Absolute Monocytes (Manual) 1.110^3/ul Eosinophils # 10^3/ul Basophils # 10^3/ul Nucleated Red Blood Cells # 10^3/ul Urine Color YELLOW Urine Clarity CLEAR Urine pH 5.0 Urine Specific [place] 1.006 Urine Ketones TRACEmg/dL Urine Nitrite NEGATIVEmg/dL Urine Bilirubin NEGATIVEmg/dL Urine Urobilinogen NEGATIVEmg/dL Urine Leukocyte Esterase NEGATIVELeu/ul Urine Microscopic RBC 1/HPF Urine Microscopic WBC 1/HPF Urine Hemoglobin 2+mg/dL Urine Glucose NEGATIVEmg/dL Urine Total Protein NEGATIVEmg/dl Troponin I < 0.012ng/ml Erythrocyte Sedimentation Rate 95mm/Hr Lactic Acid Level 1.2mmol/L Bedside Urine pH (LAB) 5.5 Bedside Urine Protein (LAB) Trace Bedside Urine Glucose (UA) Negative Bedside Urine Ketones (LAB) Trace Bedside Urine Blood 2+ Bedside Urine Nitrite (LAB) Negative Bedside Urine Leukocyte Esterase (L Negative Prothrombin Time 29.3Sec Prothrombin Time Ratio 2.3 INR International Normalized Ratio 2.73 Activated Partial Thromboplast Time > 180.0Sec D-Dimer 5062.43ng/ml D-Dimer Comment Sodium Level 129mmol/L Potassium Level 4.2mmol/L Chloride Level 99mmol/L Carbon Dioxide Level 23mmol/L Anion Gap 11 Blood Urea Nitrogen 22mg/dl Creatinine 0.74mg/dl Glucose Level 124mg/dl Calcium Level 8.4mg/dl Total Bilirubin 0.5mg/dl Direct Bilirubin 0.00mg/dl Indirect Bilirubin 0.5mg/dl Aspartate Amino Transf (AST/SGOT) 116IU/L Alanine Aminotransferase (ALT/SGPT) 91IU/L Alkaline Phosphatase 259IU/L Total Protein 6.1g/dl Albumin 2.7g/dl Globulin 3.40g/dl Albumin/Globulin Ratio 0.79 Lipase 295U/L Test 04/13/17 18:45 Prothrombin Time 17.7Sec Prothrombin Time Ratio 1.4 INR International Normalized Ratio 1.45 Activated Partial Thromboplast Time 29.3Sec Lactic Acid Level 1.4mmol/L Current Medications Medications (Trade) Dose Ordered Sig/Juana Route PRN Reason Start Time Stop Time Status Last Admin Dose Admin Sodium Chloride 1,450 ml @ 1,450 mls/hr BOLUS X1 ONCE IV 04/13/17 16:00 04/13/17 16:59 DC 04/13/17 15:57 Piperacillin Sod/ Tazobactam Sod (Zosyn 3.375gm/ 100 ml (Pmx)) 100 ml @ 200 mls/hr ONCE ONCE IVPB 04/13/17 17:30 04/13/17 17:59 DC 04/13/17 17:36 IV Flush 10 ml 10 ml STK-MED ONCE .ROUTE 04/13/17 17:46 04/13/17 17:47 DC 04/13/17 18:03 Sodium Chloride (NS) 100 ml @ ud STK-MED ONCE .ROUTE 04/13/17 17:46 04/13/17 17:47 DC 04/13/17 18:03 Iohexol 150 ml 150 ml STK-MED ONCE .ROUTE 04/13/17 17:46 04/13/17 17:47 DC 04/13/17 18:03 Piperacillin Sod/ Tazobactam Sod 100 ml @ 200 mls/hr ONCE ONCE IVPB 04/13/17 20:30 04/13/17 20:30 DC Piperacillin Sod/ Tazobactam Sod (Zosyn 3.375gm/ 100 ml (Pmx)) 100 ml @ 200 mls/hr Q8 IVPB 04/13/17 20:30 UNV Procedures/[place] [address] Radiology Main Line: [phone] DIAGNOSTIC IMAGING REPORT Patient: AYANA ORTEGA : 1950 Age: 66 Sex: F MR #: [id number] DOS: 04/13/17 1525 Ordering MD: TAMEKA JACOBSEN MD Location: E/R Room/Bed: PROCEDURE: XR Chest. CLINICAL INDICATION: Chest pain TECHNIQUE: Single portable view of the chest was obtained COMPARISON: 08/29/2016 FINDINGS: The heart and mediastinum are within normal limits. There are mild bibasilar atelectatic changes. The lungs are otherwise clear. There is no pleural effusion or pneumothorax. RPTAT: AA IMPRESSION: Mild linear bibasilar atelectatic changes. .Cali Rosario MD, Date Time Electronically viewed and signed by .Cali Rosario MD, on 04/13/2017 15: 51 .S/ CC: TAMEKA JACOBSEN MD [place] [address] Radiology Main Line: [phone] DIAGNOSTIC IMAGING REPORT Patient: AYANA ORTEGA : 1950 Age: 66 Sex: F MR #: [id number] DOS: 04/13/17 1707 Ordering MD: TAMEKA JACOBSEN MD Location: E/R Room/Bed: PROCEDURE: CT chest, abdomen, and pelvis with contrast. CLINICAL INDICATION: Dyspnea. Chest pain. History of rectal cancer status post resection. Leukocytosis and abdominal pain. TECHNIQUE: CT scan of the chest, abdomen, and pelvis was performed after the uneventful intravenous administration of 100 cc of Omnipaque-300. Coronal and sagittal reformatted images were obtained from the axial source images. Images were reviewed on a high-resolution PACS workstation. The total exam CTDI equals 7.54 mGy and the total exam DLP equals 46.62 mGy-cm. One or more of the following dose reduction techniques were used: - Automated exposure control. - Adjustment of the mA and/or kV according to patient size. - Use of iterative reconstruction technique. COMPARISON: Chest x-ray dated 04/13/[address] of the abdomen and pelvis dated 09/18/2016. FINDINGS: Lungs, pleura, airways, and thoracic inlet: There is minor consolidation associated with cylindrical bronchiectasis in the lingula. There is subsegmental atelectasis versus scarring in the lateral basal left lower lobe, right middle lobe, and right lower lobe. There is no focal consolidation, effusion, or pneumothorax. There is a 3 mm nodule at the right lung apex and a 3 mm pleural-based nodule in the lateral basal right lower lobe. The tracheobronchial tree is patent and normal in course and caliber. Cardiovascular system, mediastinum, and chest lymphatics: The heart is normal in size without pericardial thickening or effusion. The aorta is nonaneurysmal. There is right hilar adenopathy with a dominant node measuring 12 mm in short axis. There is no axillary or mediastinal adenopathy. Hepatobiliary system and spleen: There is a multiloculated, rim enhancing collection spanning the anterior right and medial left hepatic lobes measuring 12.4 x 9.2 cm in axial dimension and 11.1 cm in craniocaudal dimension, consistent with hepatic abscess. There is scattered hypo and hyperenhancement surrounding the abscess at the periphery of the liver, likely perfusion on nature. There is no intra or extrahepatic biliary ductal dilatation. The gallbladder is unremarkable. The spleen is unremarkable. The pancreas is unremarkable. Adrenal glands and genitourinary system: The adrenal glands are unremarkable. There is an indeterminate 1.5 cm hypodense lesion at the midportion of the right kidney, unchanged in size and appearance. There is no hydronephrosis. The urinary bladder is distended. The uterus is surgically absent. There are no adnexal masses. Gastrointestinal system: There is postoperative change with a suture line in the rectosigmoid junction with significant decrease in size of a small collection in the presacral region, suggestive of a resolving seroma or other postoperative change. There is no abnormal soft tissue thickening within this region. There is sigmoid diverticulosis without evidence of diverticulitis. There is no bowel wall thickening or evidence of obstruction. The appendix is in the right lower quadrant and is unremarkable. Peritoneum and abdominopelvic lymphatics: There is no free intraperitoneal air or free fluid. There is no mesenteric or retroperitoneal adenopathy. Musculoskeletal system and soft tissues: A probable hemangioma in the L1 vertebral body is unchanged in appearance. No concerning osseous lesion is identified. There is mild to moderate multilevel degenerative spondylosis. There is linear infiltration of the ventral abdominal subcutaneous fat, consistent with a prior incisional line. IMPRESSION: 1. Multiloculated, rim enhancing collection spanning the anterior right medial left hepatic lobes measuring 12.4 x 9.2 x 11.1 cm, highly suggestive of abscess given the patient's clinical data. 2. Minor consolidation with associated cylindrical bronchiectasis in the lingula , likely the sequela of chronic infection. 3. Nonspecific nodules in the right lung measuring up to 3 mm in diameter. Attention on follow-up is recommended. 4. Nonspecific right hilar adenopathy. Attention on follow-up is recommended. 5. Indeterminate 1.5 cm hypodense lesion at the midportion of the right kidney, unchanged in size and appearance when compared the prior exam from 09/18/2016. Attention on follow-up is recommended. 6. Postoperative change at the rectosigmoid junction with resolution of a small presacral collection, suggestive of a resolving seroma or other postoperative collection. No findings to suggest residual or recurrent disease at the operative site. 7. Similar appearance of a probably benign hemangioma of the L1 vertebral body. These findings discussed with Dr. Jacobsen in the ED at 1816 hours on 04/13/2017. RPTAT: HLBP .Jc Del Castillo MD, MD Date Time Electronically viewed and signed by .Jc Del Castillo MD, MD on 04/13/2017 18:36 .P/ CC: TAMEKA JACOBSEN MD [place] [address] Radiology Main Line: [phone] DIAGNOSTIC IMAGING REPORT Patient: AYANA ORTEGA : 1950 Age: 66 Sex: F MR #: [id number] DOS: 04/13/17 1707 Ordering MD: TAMEKA JACOBSEN MD Location: E/R Room/Bed: PROCEDURE: CT chest, abdomen, and pelvis with contrast. CLINICAL INDICATION: Dyspnea. Chest pain. History of rectal cancer status post resection. Leukocytosis and abdominal pain. TECHNIQUE: CT scan of the chest, abdomen, and pelvis was performed after the uneventful intravenous administration of 100 cc of Omnipaque-300. Coronal and sagittal reformatted images were obtained from the axial source images. Images were reviewed on a high-resolution PACS workstation. The total exam CTDI equals 7.54 mGy and the total exam DLP equals 46.62 mGy-cm. One or more of the following dose reduction techniques were used: - Automated exposure control. - Adjustment of the mA and/or kV according to patient size. - Use of iterative reconstruction technique. COMPARISON: Chest x-ray dated 04/13/[address] of the abdomen and pelvis dated 09/18/2016. FINDINGS: Lungs, pleura, airways, and thoracic inlet: There is minor consolidation associated with cylindrical bronchiectasis in the lingula. There is subsegmental atelectasis versus scarring in the lateral basal left lower lobe, right middle lobe, and right lower lobe. There is no focal consolidation, effusion, or pneumothorax. There is a 3 mm nodule at the right lung apex and a 3 mm pleural-based nodule in the lateral basal right lower lobe. The tracheobronchial tree is patent and normal in course and caliber. Cardiovascular system, mediastinum, and chest lymphatics: The heart is normal in size without pericardial thickening or effusion. The aorta is nonaneurysmal. There is right hilar adenopathy with a dominant node measuring 12 mm in short axis. There is no axillary or mediastinal adenopathy. Hepatobiliary system and spleen: There is a multiloculated, rim enhancing collection spanning the anterior right and medial left hepatic lobes measuring 12.4 x 9.2 cm in axial dimension and 11.1 cm in craniocaudal dimension, consistent with hepatic abscess. There is scattered hypo and hyperenhancement surrounding the abscess at the periphery of the liver, likely perfusion on nature. There is no intra or extrahepatic biliary ductal dilatation. The gallbladder is unremarkable. The spleen is unremarkable. The pancreas is unremarkable. Adrenal glands and genitourinary system: The adrenal glands are unremarkable. There is an indeterminate 1.5 cm hypodense lesion at the midportion of the right kidney, unchanged in size and appearance. There is no hydronephrosis. The urinary bladder is distended. The uterus is surgically absent. There are no adnexal masses. Gastrointestinal system: There is postoperative change with a suture line in the rectosigmoid junction with significant decrease in size of a small collection in the presacral region, suggestive of a resolving seroma or other postoperative change. There is no abnormal soft tissue thickening within this region. There is sigmoid diverticulosis without evidence of diverticulitis. There is no bowel wall thickening or evidence of obstruction. The appendix is in the right lower quadrant and is unremarkable. Peritoneum and abdominopelvic lymphatics: There is no free intraperitoneal air or free fluid. There is no mesenteric or retroperitoneal adenopathy. Musculoskeletal system and soft tissues: A probable hemangioma in the L1 vertebral body is unchanged in appearance. No concerning osseous lesion is identified. There is mild to moderate multilevel degenerative spondylosis. There is linear infiltration of the ventral abdominal subcutaneous fat, consistent with a prior incisional line. IMPRESSION: 1. Multiloculated, rim enhancing collection spanning the anterior right medial left hepatic lobes measuring 12.4 x 9.2 x 11.1 cm, highly suggestive of abscess given the patient's clinical data. 2. Minor consolidation with associated cylindrical bronchiectasis in the lingula, likely the sequela of chronic infection. 3. Nonspecific nodules in the right lung measuring up to 3 mm in diameter. Attention on follow-up is recommended. 4. Nonspecific right hilar adenopathy. Attention on follow-up is recommended. 5. Indeterminate 1.5 cm hypodense lesion at the midportion of the right kidney , unchanged in size and appearance when compared the prior exam from 2016. Attention on follow-up is recommended. 6. Postoperative change at the rectosigmoid junction with resolution of a small presacral collection, suggestive of a resolving seroma or other postoperative collection. No findings to suggest residual or recurrent disease at the operative site. 7. Similar appearance of a probably benign hemangioma of the L1 vertebral body. These findings discussed with Dr. Jacobsen in the ED at 1816 hours on 04/13/2017. RPTAT: HLBP .Jc Del Castillo MD, MD Date Time Electronically viewed and signed by .Jc Del Castillo MD, on 04/13/2017 18:31 .P/ CC: TAMEKA JACOBSEN MD EKG: Read by emergency physician Rate/Rhythm: Normal Sinus Rhythm 82 beats/min QRS, ST, T-waves: No ST elevation, no T inversion Impression: Abnormal EKG MEDICAL MAKING DECISION: The patient is a 66-year-old female, presenting with acute liver abscess, questionable pericarditis on EKG, acute coagulopathy, acute abnormal LFT. She was treated with Zosyn IV, normal saline 30 mL/kg IV with good response. The differential diagnoses considered include but are not limited to cholelithiasis, cholecystitis, cystitis, pancreatitis, hepatitis, gastritis, peptic ulcer disease, gastric ulcer, appendicitis, diverticulitis, cholangitis, choledocholithiasis, partial small bowel obstruction. Consultation: I discussed the patient with her general surgeon Dr. Martin at 6: 45 PM, who asked me to speak to his associate Dr. Ceballos whom I spoke with at 7: 10 PM; they were made aware of the lab, the treatment, the patient condition. He asked me to admit the patient under Dr. Dior, whom I spoke to her at 7 PM , he was made aware of the lab, the treatment, the present condition Critical Care: Time: 35 minutes excluding all billable procedures. Treatments/Evaluations: Close monitoring and treatment of unstable vital signs, cardiorespiratory, and neurologic status, while maintaining tight balance of fluid, respiratory, and cardiac interventions. Departure Diagnosis: Primary Impression: Liver abscess Additional Impressions: Coagulopathy Anemia Abnormal LFTs Condition: Stable Comments I discussed the findings with the patient. I discussed the patient with her physician Dr. Dior who was made aware of the lab, the treatment, the patient condition. The patient is admitted to telemetry at 7 PM TAMEKA JACOBSEN MD Apr 13, 2017 20:33
[2017-04-13 20:39] VITALS: PULSE 13; PULSE 130
[2017-04-13] MEDS ORDERED: ACETAMINOPHEN 500 MG TAB PO STA (20:54)
[2017-04-13] MEDS ORDERED: PANTOPRAZOLE 40 MG INJ IV ONE (21:00)
[2017-04-13] MEDS ORDERED: DEXTROSE 50% 50 ML SYRINGE IV PRN ×2 (21:30)
[2017-04-13] MEDS ORDERED: GLUCOSE GEL 15 GRAM TUBE BUCCAL PRN (21:30)
[2017-04-13] MEDS ORDERED: GLUCOSE GEL 15 GRAM TUBE PO PRN ×2 (21:30)
[2017-04-13] MEDS ORDERED: GLUCAGON 1 MG INJ IM PRN (21:30)
--- NOTE | 2017-04-13 21:43 | HP ---
Date/Time of Note Date/Time of Note DATE: 04/13/17 TIME: 21:05 Assessment/Plan VTE Prophylaxis VTE Prophylaxis Intervention: SCD's Lines/Catheters IV Catheter Type (from Nrsg): Saline Lock Assessment/Plan Assessment/Plan - Chest pain-none at present - admit to Tele - Cardiology consult- Dr Hendrickson notified - Sepsis - ID consult- Dr Diana notified - On Zosyn, Zyvox - Hepatic abscess-12.4 x 9.2 x 11.1 cm,per CT - GI consult- Dr English notified - Surgery consult-notified by Dr Rene - Transaminitis - NPO, IVF - per GI -Coagulopathy- Monitor labs -Anemia- monitor CBC am - Hyponatremia Na 129 - Nephro consult- Dr Ruel Espino notified - IVF- NS at 60 cc/hr - Pre DM - Glycemic control - Dietary consult - Cachexia - Dietary consult - Hx Rectal cancer status post low anterior resection. PLAN: - IVF SCD for DVT prophylaxis. Further recommendation will depend on hospital course. Dw Dr Dior HPI/ROS Admit Date/Time Admit Date/Time Hx of Present Illness The patient is a 65-year-old female well known to me from previous admission has history of rectal cancer, sp excision of rectal mass in 2016, low anterior resection of rectal cancer. The patient is admitted with c/o chest pain- none at present. The patient denies any chest pain and is breathing comfortably. No cough, no leg pain or leg edema. No report of any focal weakness. Family at bed side- all Qs ANSWERED. REVIEW OF SYSTEMS: The patient, other than postoperative pain, had a negative review of systems. ALLERGIES: 1. CODEINE. 2. HYDROCODONE. 3. NAPROXEN. 4. TRAMADOL. 5. VANCOMYCIN. ROS Constitutional: febrile Respiratory: no complaints Cardiovascular: no complaints Gastrointestinal: pain Genitourinary: no complaints Musculoskeletal: no complaints Skin: no complaints Neurologic: no complaints PMH/Family/Social Past Medical History History of Surgery: Yes (abd surgery colon mass ) Anesthesia Reaction: No Hx 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 Disorder: No Hx Respiratory Disorders: No Hx Cardiac Disorders: No Hx Psychiatric Problems: No Hx Miscellaneous Medical Probl: Yes (pre-dm) Hx Alcohol Use: No Hx Substance Use: No Hx Tobacco Use: No Smoking Status: Never smoker PAST MEDICAL HISTORY: rectal cancer PAST SURGICAL HISTORY: left inguinal hernia repair, status post cystectomy, status post colonoscopy done by Dr. Carlos, which was positive for rectal mass. FAMILY HISTORY: Noncontributory. SOCIAL HISTORY: The patient lives at home with the family. No smoking, no alcohol. Social History Alcohol Use: none Smoking Status: Never smoker Drug Use: none Exam/Review of Systems Vital Signs Vitals Vital Signs Date Time Temp Pulse Resp B/P Pulse Ox O2 Delivery O2 Flow Rate FiO2 04/13/17 20:19 98.0 119 20 122/99 100 Room Air Exam Constitutional: alert, frail, oriented Respiratory: diminished breath sounds, normal air movement Cardiovascular: nl pulses, regular rate and rhythm (ST ) Gastrointestinal: soft, tender Musculoskeletal: nl extremities to inspection 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: 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, nl speech Labs Result Diagram: 04/13/17 1530 04/13/17 1600 Medications Medications Current Medications Piperacillin Sod/ Tazobactam Sod 100 ml @ 200 mls/hr Q8 IVPB ; Start 04/13/17 at 23:30 Linezolid 300 ml @ 300 mls/hr Q12 IVPB ; Start 04/13/17 at 21:00 Sodium Chloride (NS) 1,000 ml @ 60 mls/hr [id number] IV ; Start 04/13/17 at 21:00 Pantoprazole (Protonix Iv) 40 mg ONCE ONCE IV ; Start 04/13/17 at 21:00; Stop 04/13/17 at 21:01 Pantoprazole (Protonix Iv) 40 mg 06 IV ; Start 04/14/17 at 06:00 Procedures Procedures PROCEDURE: XR Chest. CLINICAL INDICATION: Chest pain TECHNIQUE: Single portable view of the chest was obtained COMPARISON: 08/29/2016 FINDINGS: The heart and mediastinum are within normal limits. There are mild bibasilar atelectatic changes. The lungs are otherwise clear. There is no pleural effusion or pneumothorax. IMPRESSION: Mild linear bibasilar atelectatic changes. PROCEDURE: CT chest, abdomen, and pelvis with contrast. CLINICAL INDICATION: Dyspnea. Chest pain. History of rectal cancer status post resection. Leukocytosis and abdominal pain. COMPARISON: Chest x-ray dated 04/13/[address] of the abdomen and pelvis dated 09/18/2016. IMPRESSION: 1. Multiloculated, rim enhancing collection spanning the anterior right medial left hepatic lobes measuring 12.4 x 9.2 x 11.1 cm, highly suggestive of abscess given the patient's clinical data. 2. Minor consolidation with associated cylindrical bronchiectasis in the lingula , likely the sequela of chronic infection. 3. Nonspecific nodules in the right lung measuring up to 3 mm in diameter. Attention on follow-up is recommended. 4. Nonspecific right hilar adenopathy. Attention on follow-up is recommended. 5. Indeterminate 1.5 cm hypodense lesion at the midportion of the right kidney, unchanged in size and appearance when compared the prior exam from 09/18/2016. Attention on follow-up is recommended. 6. Postoperative change at the rectosigmoid junction with resolution of a small presacral collection, suggestive of a resolving seroma or other postoperative collection. No findings to suggest residual or recurrent disease at the operative site. 7. Similar appearance of a probably benign hemangioma of the L1 vertebral body. PROCEDURE: CT chest, abdomen, and pelvis with contrast. CLINICAL INDICATION: Dyspnea. Chest pain. History of rectal cancer status post resection. Leukocytosis and abdominal pain. COMPARISON: Chest x-ray dated 04/13/[address] of the abdomen and pelvis dated 09/18/2016. FINDINGS: Lungs, pleura, airways, and thoracic inlet: There is minor consolidation associated with cylindrical bronchiectasis in the lingula. There is subsegmental atelectasis versus scarring in the lateral basal left lower lobe, right middle lobe, and right lower lobe. There is no focal consolidation, effusion, or pneumothorax. There is a 3 mm nodule at the right lung apex and a 3 mm pleural-based nodule in the lateral basal right lower lobe. The tracheobronchial tree is patent and normal in course and caliber. IMPRESSION: 1. Multiloculated, rim enhancing collection spanning the anterior right medial left hepatic lobes measuring 12.4 x 9.2 x 11.1 cm, highly suggestive of abscess given the patient's clinical data. 2. Minor consolidation with associated cylindrical bronchiectasis in the lingula, likely the sequela of chronic infection. 3. Nonspecific nodules in the right lung measuring up to 3 mm in diameter. Attention on follow-up is recommended. 4. Nonspecific right hilar adenopathy. Attention on follow-up is recommended. 5. Indeterminate 1.5 cm hypodense lesion at the midportion of the right kidney , unchanged in size and appearance when compared the prior exam from 2016. Attention on follow-up is recommended. 6. Postoperative change at the rectosigmoid junction with resolution of a small presacral collection, suggestive of a resolving seroma or other postoperative collection. No findings to suggest residual or recurrent disease at the operative site. 7. Similar appearance of a probably benign hemangioma of the L1 vertebral body. MESHA VELASQUEZ Apr 13, 2017 21:23
[2017-04-13 21:52] VITALS: BP 116/63; RESP 18
[2017-04-13] MEDS ORDERED: HYDROmorphONE 1 MG/ML SYG IV PRN (22:00)
[2017-04-13] MEDS: SOD CHLORIDE 0.9% 1,000 ML IV SCH (22:24)
[2017-04-13] MEDS: ACETAMINOPHEN 650 MG SUPP PR PRN (22:31)
[2017-04-13 22:35] LABS: CHOL/HDL RATIO 5.5 RATIO; CREATINE KINASE 41 IU/L (23-200)
[2017-04-13] MEDS: LINEZOLID 600 MG/D5W (PMX) 300 ML IVPB SCH (22:45)
[2017-04-13 22:47] LABS: CK-MB 1.18 ng/ml (0.0-2.4); TROPONIN-I < 0.012 ng/ml (0.00-0.12)
[2017-04-13 22:52] VITALS: Ht 160 cm; Wt 48.0 kg
--- NOTE | 2017-04-13 23:58 | CONS ---
Date/Time of Note Date/Time of Note DATE: 04/13/17 TIME: 23:58 Assessment/Plan Assessment/Plan Additional Assessment/Plan 1. Acute hyponatremia 2/2 Hypovolemic hyponatremia 2. sepsis due to liver abscess 3. Hepatic abscess oN CT scan 4. Acute transaminitis 5. h/o Colon CA s/p previous Surgery Plan : continue current IV abx and IVF Expecting Na to improve with IVF hydration monitor electrolytes and renal function watch for metabolic acidosis since pt has been getting iV zyvox will follow up Consultation Date/Type/Reason Admit Date/Time 04/13/2017 Date of Consultation: Apr 13, 2017 Type of Consultation: NEPHROLOGY Reason for Consultation Hyponatremia Referring Provider: DARREL BURT MD Hx of Present Illness 65-year-old female well known to me from previous admission has history of rectal cancer, sp excision of rectal mass in 2016, low anterior resection of rectal cancer. The patient is admitted with c/o chest pain- none at present. The patient denies any chest pain and is breathing comfortably. No cough, no leg pain or leg edema. No report of any focal weaknes. pt is noted to have hyponatremia, and renal has been consulted for it Respiratory: no complaints Cardiovascular: no complaints Gastrointestinal: pain Genitourinary: no complaints Musculoskeletal: no complaints Skin: no complaints Neurologic: no complaints Past Medical History Medical History: other (Colon cancer) Past Surgical History Past Surgical Hx: other (s/p surgery for colon CA ) Family History Significant Family History: no pertinent family hx Social History Alcohol Use: none Smoking Status: Never smoker Drug Use: none Exam/Review of Systems Vital Signs Vitals Vital Signs Date Time Temp Pulse Resp B/P Pulse Ox O2 Delivery O2 Flow Rate FiO2 04/13/17 21:52 100.1 123 18 116/63 98 04/13/17 20:19 Room Air Exam Constitutional: alert, frail, oriented Respiratory: diminished breath sounds, normal air movement Cardiovascular: nl pulses, regular rate and rhythm (ST ) Gastrointestinal: soft, tender Musculoskeletal: nl extremities to inspection 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: 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, nl speech Results Result Diagram: 04/13/17 1530 04/13/17 1600 Results 24 hrs Laboratory Tests Test 04/13/17 15:30 04/13/17 15:40 04/13/17 15:45 04/13/17 16:00 White Blood Count 16.0 #H Red Blood Count 2.63 #L Hemoglobin 8.3 L Hematocrit 23.9 #L Mean Corpuscular Volume 90.9 Mean Corpuscular Hemoglobin 31.6 Mean Corpuscular Hemoglobin Concent 34.7 Red Cell Distribution Width 13.8 Platelet Count 364 Mean Platelet Volume 8.6 # Neutrophils % Segmented Neutrophils % (Manual) 67 Band Neutrophils % (Manual) 15 H Lymphocytes % Lymphocytes % (Manual) 11 L Monocytes % Monocytes % (Manual) 7 Eosinophils % Basophils % Nucleated Red Blood Cells % 0.0 Neutrophils # (Manual) 11.1 H Band Neutrophils # 2.4 H Absolute Lymphocytes (Manual) 1.7 Lymphocytes # 1.8 Monocytes # 1.1 H Absolute Monocytes (Manual) 1.1 H Eosinophils # Basophils # Nucleated Red Blood Cells # Urine Color YELLOW Urine Clarity CLEAR Urine pH 5.0 Urine Specific [place] 1.006 Urine Ketones TRACE A Urine Nitrite NEGATIVE Urine Bilirubin NEGATIVE Urine Urobilinogen NEGATIVE Urine Leukocyte Esterase NEGATIVE Urine Microscopic RBC 1 Urine Microscopic WBC 1 Urine Hemoglobin 2+ H Urine Glucose NEGATIVE Urine Total Protein NEGATIVE Troponin I < 0.012 Erythrocyte Sedimentation Rate 95 H Lactic Acid Level 1.2 Bedside Urine pH (LAB) 5.5 Bedside Urine Protein (LAB) Trace H Bedside Urine Glucose (UA) Negative Bedside Urine Ketones (LAB) Trace H Bedside Urine Blood 2+ H Bedside Urine Nitrite (LAB) Negative Bedside Urine Leukocyte Esterase (L Negative Prothrombin Time 29.3 #H Prothrombin Time Ratio 2.3 INR International Normalized Ratio 2.73 Activated Partial Thromboplast Time > 180.0 *H D-Dimer 5062.43 H D-Dimer Comment Sodium Level 129 L Potassium Level 4.2 Chloride Level 99 Carbon Dioxide Level 23 Anion Gap 11 Blood Urea Nitrogen 22 H Creatinine 0.74 Glucose Level 124 Calcium Level 8.4 Total Bilirubin 0.5 Direct Bilirubin 0.00 Indirect Bilirubin 0.5 Aspartate Amino Transf (AST/SGOT) 116 H Alanine Aminotransferase (ALT/SGPT) 91 H Alkaline Phosphatase 259 H Total Protein 6.1 Albumin 2.7 L Globulin 3.40 H Albumin/Globulin Ratio 0.79 Lipase 295 Test 04/13/17 18:45 04/13/17 22:02 Prothrombin Time 17.7 #H Prothrombin Time Ratio 1.4 INR International Normalized Ratio 1.45 Activated Partial Thromboplast Time 29.3 Lactic Acid Level 1.4 1.6 Creatine Kinase 41 Creatine Kinase Index 2.9 Creatinine Kinase MB (Mass) 1.18 Troponin I < 0.012 Triglycerides Level 74 Cholesterol Level 77 L LDL Cholesterol, Calculated 48 HDL Cholesterol 14 L Cholesterol/HDL Ratio 5.5 Medications Medications Current Medications Piperacillin Sod/ Tazobactam Sod 100 ml @ 200 mls/hr Q8 IVPB ; Start 04/13/17 at 23:30 Linezolid 300 ml @ 300 mls/hr Q12 IVPB Last administered on 04/13/17 22:45; Admin Dose 300 MLS/HR; Start 04/13/17 at 21:00 Sodium Chloride (NS) 1,000 ml @ 60 mls/hr [id number] IV Last administered on 04/13 22:24; Admin Dose 60 MLS/HR; Start 04/13/17 at 21:00 Pantoprazole (Protonix Iv) 40 mg 06 IV ; Start 04/14/17 at 06:00 Diagnostic Test (Pha) (Accu-Chek) 1 ea 02 XX ; Start 04/14/17 at 02:00 Insulin Aspart (Novolog Insulin Pen) NOVOLOG *MILD* ALGORI... Q4 SC ; Start 07/19 at 01:00 Miscellaneous Information 1 ea NOTE XX ; Start 04/13/17 at 21:30 Glucose (Glutose) 15 gm Q15M PRN PO DECREASED GLUCOSE; Start 04/13/17 at 21:30 Glucose (Glutose) 22.5 gm Q15M PRN PO DECREASED GLUCOSE; Start 04/13/17 at 21: 30 Dextrose (D50w Syringe) 25 ml Q15M PRN IV DECREASED GLUCOSE; Start 04/13/17 at 21:30 Dextrose (D50w Syringe) 50 ml Q15M PRN IV DECREASED GLUCOSE; Start 04/13/17 at 21:30 Glucagon (Glucagen) 1 mg Q15M PRN IM DECREASED GLUCOSE; Start 04/13/17 at 21:30 Glucose (Glutose) 15 gm Q15M PRN BUCCAL DECREASED GLUCOSE; Start 04/13/17 at 21 :30 Ondansetron HCl (Zofran Inj) 4 mg Q6 PRN IV NAUSEA AND/OR VOMITING; Start 04/13 at 21:30 Hydromorphone HCl (Dilaudid) 0.5 mg Q3 PRN IV PAIN LEVEL 7-10; Start 04/13/17 at 22:00 Acetaminophen (Tylenol Supp) 650 mg Q4H PRN [place] PAIN OR TEMP ABOVE 38C Last administered on 04/13/17t 22:31; Admin Dose 650 MG; Start 04/13/17 at 22:00 NGOC GARZA MD Apr 13, 2017 23:58
[2017-04-14] VITALS (39 sets, daily range): BP systolic 71–119; BP diastolic 39–64; PULSE 69–99; RESP 14–29
[2017-04-14] MEDS: PIPER-TAZO 3.375 GM IV (PMX) 100 ML IVPB SCH ×4 (00:03→23:19)
[2017-04-14] MEDS: INSULIN ASPART [NOVOLOG] 3 ML PEN SC SCH ×6 (00:36→22:38)
[2017-04-14] MEDS: ACCU-CHEK XX SCH (02:00)
[2017-04-14] MEDS ORDERED: PANTOPRAZOLE 40 MG INJ IV SCH (06:00)
[2017-04-14 07:41] LABS: HEMATOCRIT 22.8 % (37.0-47.0); HEMOGLOBIN 7.8 g/dl (12.0-16.0); MEAN CORPUSCULAR HEMOGLOBIN 31.7 pg (29.0-33.0); MEAN CORPUSCULAR HGB CONC 34.2 g/dl (32.0-37.0); MEAN CORPUSCULAR VOLUME 92.7 fl (82.0-101.0); MEAN PLATELET VOLUME 10.4 fl (7.4-10.4); PLATELET COUNT 256 10^3/UL (140-415); RED BLOOD COUNT 2.46 10^6/ul (4.20-5.40); RED CELL DISTRIBUTION WIDTH 14.2 % (11.5-14.5); WHITE BLOOD COUNT 16.2 10^3/ul (4.8-10.8)
[2017-04-14 07:43] LABS: POSITIVE DIFF @See below
[2017-04-14 08:03] LABS: INR 1.5; PROTIME 18.2 Sec (12.2-14.2); PT RATIO 1.4
[2017-04-14 08:04] LABS: PARTIAL THROMBOPLASTIN TIME 30.6 Sec (25.0-35.0)
[2017-04-14 08:12] LABS: CREATINE KINASE 54 IU/L (23-200)
[2017-04-14 08:22] LABS: ALBUMIN 2.1 g/dl (3.3-4.9); ALBUMIN/GLOBULIN RATIO 0.75; BILIRUBIN,INDIRECT 0.5 mg/dl (0-1.1); BILIRUBIN,TOTAL 0.5 mg/dl (0.2-1.3); CALCIUM 7.9 mg/dl (8.4-10.2); CREATININE 0.55 mg/dl (0.44-1.00); POTASSIUM 4.6 mmol/L (3.5-5.1); TOTAL PROTEIN 4.9 g/dl (6.1-8.1)
[2017-04-14 08:24] LABS: TROPONIN-I < 0.012 ng/ml (0.00-0.12)
--- NOTE | 2017-04-14 08:43 | PN ---
Date/Time of Note Date/Time of Note DATE: 04/14/17 TIME: 08:38 Assessment/Plan VTE Prophylaxis VTE Prophylaxis Intervention: SCD's Lines/Catheters IV Catheter Type (from Nrs): Saline Lock Urinary Cath still in place: No Assessment/Plan Assessment/Plan - Hypotension - NS 500CC X1 Bolus , cont to monitor - Anemia - transfuse 1 UNIT PRBC today - monitor CBC am - Chest pain-none at present - admit to Tele - Cardiology consult- Dr Hendrickson notified - Sepsis - ID consult- Dr Diana notified - On Zosyn, Zyvox - Hepatic abscess-12.4 x 9.2 x 11.1 cm,per CT - GI consult- Dr English notified - Surgery consult-notified by Dr Rene - Transaminitis - NPO, IVF - per GI -Coagulopathy- Monitor labs - Hyponatremia Na 129 - Nephro consult- Dr Ruel Espino notified - IVF- NS at 60 cc/hr - Pre DM - Glycemic control - Dietary consult - Cachexia - Dietary consult - Hx Rectal cancer status post low anterior resection. PLAN: - IVF SCD for DVT prophylaxis. Total critical care time spent- 30 mins Further recommendation will depend on hospital course. Catrachito Dior Subjective 24 Hr Interval Summary Free Text/Dictation catrachito Ayala- transferred to ICU Constitutional: requiring IVF Cardiovascular: no complaints Gastrointestinal: pain Genitourinary: no complaints Musculoskeletal: no complaints Exam/Review of Systems Vital Signs Vitals Vital Signs Date Time Temp Pulse Resp B/P Pulse Ox O2 Delivery O2 Flow Rate FiO2 04/14/17 08:24 97.9 73 18 72/39 99 04/13/17 20:19 Room Air Intake and Output 04/13/17 04/13/17 04/14/17 15:00 23:00 07:00 Intake Total 860 ml Balance 860 ml Exam Constitutional: alert Respiratory: diminished breath sounds Cardiovascular: nl pulses, regular rate and rhythm Gastrointestinal: soft, tender Musculoskeletal: nl extremities to inspection Extremities: normal pulses 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: other (follows simple commands) Results Result Diagram: 04/14/17 0645 04/14/17 0645 Results 24 hrs Laboratory Tests Test 04/13/17 15:30 04/13/17 15:40 04/13/17 15:45 04/13/17 16:00 White Blood Count 16.0 #H Red Blood Count 2.63 #L Hemoglobin 8.3 L Hematocrit 23.9 #L Mean Corpuscular Volume 90.9 Mean Corpuscular Hemoglobin 31.6 Mean Corpuscular Hemoglobin Concent 34.7 Red Cell Distribution Width 13.8 Platelet Count 364 Mean Platelet Volume 8.6 # Neutrophils % Segmented Neutrophils % (Manual) 67 Band Neutrophils % (Manual) 15 H Lymphocytes % Lymphocytes % (Manual) 11 L Monocytes % Monocytes % (Manual) 7 Eosinophils % Basophils % Nucleated Red Blood Cells % 0.0 Neutrophils # (Manual) 11.1 H Band Neutrophils # 2.4 H Absolute Lymphocytes (Manual) 1.7 Lymphocytes # 1.8 Monocytes # 1.1 H Absolute Monocytes (Manual) 1.1 H Eosinophils # Basophils # Nucleated Red Blood Cells # Urine Color YELLOW Urine Clarity CLEAR Urine pH 5.0 Urine Specific [place] 1.006 Urine Ketones TRACE A Urine Nitrite NEGATIVE Urine Bilirubin NEGATIVE Urine Urobilinogen NEGATIVE Urine Leukocyte Esterase NEGATIVE Urine Microscopic RBC 1 Urine Microscopic WBC 1 Urine Hemoglobin 2+ H Urine Glucose NEGATIVE Urine Total Protein NEGATIVE Troponin I < 0.012 Erythrocyte Sedimentation Rate 95 H Lactic Acid Level 1.2 Bedside Urine pH (LAB) 5.5 Bedside Urine Protein (LAB) Trace H Bedside Urine Glucose (UA) Negative Bedside Urine Ketones (LAB) Trace H Bedside Urine Blood 2+ H Bedside Urine Nitrite (LAB) Negative Bedside Urine Leukocyte Esterase (L Negative Prothrombin Time 29.3 #H Prothrombin Time Ratio 2.3 INR International Normalized Ratio 2.73 Activated Partial Thromboplast Time > 180.0 *H D-Dimer 5062.43 H D-Dimer Comment Sodium Level 129 L Potassium Level 4.2 Chloride Level 99 Carbon Dioxide Level 23 Anion Gap 11 Blood Urea Nitrogen 22 H Creatinine 0.74 Glucose Level 124 Calcium Level 8.4 Total Bilirubin 0.5 Direct Bilirubin 0.00 Indirect Bilirubin 0.5 Aspartate Amino Transf (AST/SGOT) 116 H Alanine Aminotransferase (ALT/SGPT) 91 H Alkaline Phosphatase 259 H Total Protein 6.1 Albumin 2.7 L Globulin 3.40 H Albumin/Globulin Ratio 0.79 Lipase 295 Test 04/13/17 18:45 04/13/17 22:02 04/14/17 00:34 04/14/17 05:23 Prothrombin Time 17.7 #H Prothrombin Time Ratio 1.4 INR International Normalized Ratio 1.45 Activated Partial Thromboplast Time 29.3 Lactic Acid Level 1.4 1.6 Creatine Kinase 41 Creatine Kinase Index 2.9 Creatinine Kinase MB (Mass) 1.18 Troponin I < 0.012 Triglycerides Level 74 Cholesterol Level 77 L LDL Cholesterol, Calculated 48 HDL Cholesterol 14 L Cholesterol/HDL Ratio 5.5 Bedside Glucose 216 104 Test 04/14/17 06:45 04/14/17 08:16 White Blood Count 16.2 H Red Blood Count 2.46 L Hemoglobin 7.8 L Hematocrit 22.8 L Mean Corpuscular Volume 92.7 Mean Corpuscular Hemoglobin 31.7 Mean Corpuscular Hemoglobin Concent 34.2 Red Cell Distribution Width 14.2 Platelet Count 256 # Mean Platelet Volume 10.4 # Neutrophils % Lymphocytes % Monocytes % Eosinophils % Basophils % Nucleated Red Blood Cells % 0.0 Neutrophils # (Manual) 14.3 H Lymphocytes # Monocytes # Eosinophils # Basophils # Nucleated Red Blood Cells # Prothrombin Time 18.2 H Prothrombin Time Ratio 1.4 INR International Normalized Ratio 1.50 Activated Partial Thromboplast Time 30.6 Sodium Level 135 Potassium Level 4.6 Chloride Level 104 Carbon Dioxide Level 24 Anion Gap 12 Blood Urea Nitrogen 14 Creatinine 0.55 Glucose Level 121 Calcium Level 7.9 L Total Bilirubin 0.5 Direct Bilirubin 0.00 Indirect Bilirubin 0.5 Aspartate Amino Transf (AST/SGOT) 98 H Alanine Aminotransferase (ALT/SGPT) 98 H Alkaline Phosphatase 216 H Creatine Kinase 54 Creatine Kinase Index 1.5 Creatinine Kinase MB (Mass) 0.80 Troponin I < 0.012 Total Protein 4.9 #L Albumin 2.1 L Globulin 2.80 Albumin/Globulin Ratio 0.75 Bedside Glucose 120 Medications Medications Current Medications Piperacillin Sod/ Tazobactam Sod 100 ml @ 200 mls/hr Q8 IVPB Last administered on 04/14/17 05:25; Admin Dose 200 MLS/HR; Start 04/13/17 at 23:30 Linezolid 300 ml @ 300 mls/hr Q12 IVPB Last administered on 04/13/17 22:45; Admin Dose 300 MLS/HR; Start 04/13/17 at 21:00 Sodium Chloride (NS) 1,000 ml @ 60 mls/hr [id number] IV Last administered on 04/13 22:24; Admin Dose 60 MLS/HR; Start 04/13/17 at 21:00 Pantoprazole (Protonix Iv) 40 mg 06 IV Last administered on 04/14/17 05:15; Admin Dose 40 MG; Start 04/14/17 at 06:00 Diagnostic Test (Pha) (Accu-Chek) 1 ea 02 XX ; Start 04/14/17 at 02:00 Insulin Aspart (Novolog Insulin Pen) NOVOLOG *MILD* ALGORI... Q4 SC Last administered on 04/14/17 00:36; Admin Dose 2 UNIT; Start 04/14/17 at 01:00 Miscellaneous Information 1 ea NOTE XX ; Start 04/13/17 at 21:30 Glucose (Glutose) 15 gm Q15M PRN PO DECREASED GLUCOSE; Start 04/13/17 at 21:30 Glucose (Glutose) 22.5 gm Q15M PRN PO DECREASED GLUCOSE; Start 04/13/17 at 21: 30 Dextrose (D50w Syringe) 25 ml Q15M PRN IV DECREASED GLUCOSE; Start 04/13/17 at 21:30 Dextrose (D50w Syringe) 50 ml Q15M PRN IV DECREASED GLUCOSE; Start 04/13/17 at 21:30 Glucagon (Glucagen) 1 mg Q15M PRN IM DECREASED GLUCOSE; Start 04/13/17 at 21:30 Glucose (Glutose) 15 gm Q15M PRN BUCCAL DECREASED GLUCOSE; Start 04/13/17 at 21 :30 Ondansetron HCl (Zofran Inj) 4 mg Q6 PRN IV NAUSEA AND/OR VOMITING; Start 04/13 at 21:30 Hydromorphone HCl (Dilaudid) 0.5 mg Q3 PRN IV PAIN LEVEL 7-10; Start 04/13/17 at 22:00 Acetaminophen 650 mg 650 mg Q4H PRN [place] PAIN OR TEMP ABOVE 38C Last administered on 04/13/17 22:31; Admin Dose 650 MG; Start 04/13/17 at 22:00 Sodium Chloride (NS) 500 ml @ 500 mls/hr Q1H ONCE IV ; Start 04/14/17 at 09:00 ; Stop 04/14/17 at 09:59; Status MESHA DUKES Apr 14, 2017 08:43
--- NOTE | 2017-04-14 08:55 | CONS ---
Date/Time of Note Date/Time of Note DATE: 04/14/17 TIME: 08:54 Assessment/Plan Assessment/Plan Chief Complaint/Hosp Course 65-year-old female well known to me from previous admission has history of rectal cancer, sp excision of rectal mass in 2016, low anterior resection of rectal cancer. The patient is admitted with c/o chest pain- none at present. The patient denies any chest pain and is breathing comfortably. No cough, no leg pain or leg edema. No report of any focal weaknes. pt is noted to have hyponatremia, and renal has been consulted for it Problems: Additional Assessment/Plan 1. Acute hyponatremia 2/2 Hypovolemic hyponatremia 2. sepsis due to liver abscess 3. Hepatic abscess oN CT scan 4. Acute transaminitis 5. h/o Colon CA s/p previous Surgery Plan : continue current IV abx and IVF, Na improving, conitnue current IVF awaiting GI evaluation monitor electrolytes and renal function watch for metabolic acidosis since pt has been getting iV zyvox will follow up Consultation Date/Type/Reason Admit Date/Time Apr 13, 2017 at 19:51 Initial Consult Date 04/13/17 Type of Consultation: NEPHROLOGY Referring Provider: DARREL BURT MD 24 HR Interval Summary Free Text/Dictation Na improving, WBC normal, afebrile, awaiting GI evaluation Exam/Review of Systems Vital Signs Vitals Vital Signs Date Time Temp Pulse Resp B/P Pulse Ox O2 Delivery O2 Flow Rate FiO2 04/14/17 08:24 97.9 73 18 72/39 99 04/13/17 20:19 Room Air Intake and Output 04/13/17 04/13/17 04/14/17 15:00 23:00 07:00 Intake Total 860 ml Balance 860 ml Exam Constitutional: alert Psych: no complaints Head: normocephalic Eyes: nl conjunctiva ENMT: nl external ears & nose Neck: non-tender, supple Respiratory: clear to auscultation, normal air movement Cardiovascular: nl pulses, regular rate and rhythm Gastrointestinal: non-tender, soft Extremities: normal pulses 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: MESH CUTTER II-XII intact, 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, nl speech, nl strength Results Result Diagram: 04/14/17 0645 04/14/17 0645 Results 24 hrs Laboratory Tests Test 04/13/17 15:30 04/13/17 15:40 04/13/17 15:45 04/13/17 16:00 White Blood Count 16.0 #H Red Blood Count 2.63 #L Hemoglobin 8.3 L Hematocrit 23.9 #L Mean Corpuscular Volume 90.9 Mean Corpuscular Hemoglobin 31.6 Mean Corpuscular Hemoglobin Concent 34.7 Red Cell Distribution Width 13.8 Platelet Count 364 Mean Platelet Volume 8.6 # Neutrophils % Segmented Neutrophils % (Manual) 67 Band Neutrophils % (Manual) 15 H Lymphocytes % Lymphocytes % (Manual) 11 L Monocytes % Monocytes % (Manual) 7 Eosinophils % Basophils % Nucleated Red Blood Cells % 0.0 Neutrophils # (Manual) 11.1 H Band Neutrophils # 2.4 H Absolute Lymphocytes (Manual) 1.7 Lymphocytes # 1.8 Monocytes # 1.1 H Absolute Monocytes (Manual) 1.1 H Eosinophils # Basophils # Nucleated Red Blood Cells # Urine Color YELLOW Urine Clarity CLEAR Urine pH 5.0 Urine Specific [place] 1.006 Urine Ketones TRACE A Urine Nitrite NEGATIVE Urine Bilirubin NEGATIVE Urine Urobilinogen NEGATIVE Urine Leukocyte Esterase NEGATIVE Urine Microscopic RBC 1 Urine Microscopic WBC 1 Urine Hemoglobin 2+ H Urine Glucose NEGATIVE Urine Total Protein NEGATIVE Troponin I < 0.012 Erythrocyte Sedimentation Rate 95 H Lactic Acid Level 1.2 Bedside Urine pH (LAB) 5.5 Bedside Urine Protein (LAB) Trace H Bedside Urine Glucose (UA) Negative Bedside Urine Ketones (LAB) Trace H Bedside Urine Blood 2+ H Bedside Urine Nitrite (LAB) Negative Bedside Urine Leukocyte Esterase (L Negative Prothrombin Time 29.3 #H Prothrombin Time Ratio 2.3 INR International Normalized Ratio 2.73 Activated Partial Thromboplast Time > 180.0 *H D-Dimer 5062.43 H D-Dimer Comment Sodium Level 129 L Potassium Level 4.2 Chloride Level 99 Carbon Dioxide Level 23 Anion Gap 11 Blood Urea Nitrogen 22 H Creatinine 0.74 Glucose Level 124 Calcium Level 8.4 Total Bilirubin 0.5 Direct Bilirubin 0.00 Indirect Bilirubin 0.5 Aspartate Amino Transf (AST/SGOT) 116 H Alanine Aminotransferase (ALT/SGPT) 91 H Alkaline Phosphatase 259 H Total Protein 6.1 Albumin 2.7 L Globulin 3.40 H Albumin/Globulin Ratio 0.79 Lipase 295 Test 04/13/17 18:45 04/13/17 22:02 04/14/17 00:34 04/14/17 05:23 Prothrombin Time 17.7 #H Prothrombin Time Ratio 1.4 INR International Normalized Ratio 1.45 Activated Partial Thromboplast Time 29.3 Lactic Acid Level 1.4 1.6 Creatine Kinase 41 Creatine Kinase Index 2.9 Creatinine Kinase MB (Mass) 1.18 Troponin I < 0.012 Triglycerides Level 74 Cholesterol Level 77 L LDL Cholesterol, Calculated 48 HDL Cholesterol 14 L Cholesterol/HDL Ratio 5.5 Bedside Glucose 216 104 Test 04/14/17 06:45 04/14/17 08:16 White Blood Count 16.2 H Red Blood Count 2.46 L Hemoglobin 7.8 L Hematocrit 22.8 L Mean Corpuscular Volume 92.7 Mean Corpuscular Hemoglobin 31.7 Mean Corpuscular Hemoglobin Concent 34.2 Red Cell Distribution Width 14.2 Platelet Count 256 # Mean Platelet Volume 10.4 # Neutrophils % Lymphocytes % Monocytes % Eosinophils % Basophils % Nucleated Red Blood Cells % 0.0 Neutrophils # (Manual) 14.3 H Lymphocytes # Monocytes # Eosinophils # Basophils # Nucleated Red Blood Cells # Prothrombin Time 18.2 H Prothrombin Time Ratio 1.4 INR International Normalized Ratio 1.50 Activated Partial Thromboplast Time 30.6 Sodium Level 135 Potassium Level 4.6 Chloride Level 104 Carbon Dioxide Level 24 Anion Gap 12 Blood Urea Nitrogen 14 Creatinine 0.55 Glucose Level 121 Calcium Level 7.9 L Total Bilirubin 0.5 Direct Bilirubin 0.00 Indirect Bilirubin 0.5 Aspartate Amino Transf (AST/SGOT) 98 H Alanine Aminotransferase (ALT/SGPT) 98 H Alkaline Phosphatase 216 H Creatine Kinase 54 Creatine Kinase Index 1.5 Creatinine Kinase MB (Mass) 0.80 Troponin I < 0.012 Total Protein 4.9 #L Albumin 2.1 L Globulin 2.80 Albumin/Globulin Ratio 0.75 Bedside Glucose 120 Medications Medications Current Medications Piperacillin Sod/ Tazobactam Sod 100 ml @ 200 mls/hr Q8 IVPB Last administered on 04/14/17 05:25; Admin Dose 200 MLS/HR; Start 04/13/17 at 23:30 Linezolid 300 ml @ 300 mls/hr Q12 IVPB Last administered on 04/13/17 22:45; Admin Dose 300 MLS/HR; Start 04/13/17 at 21:00 Sodium Chloride (NS) 1,000 ml @ 60 mls/hr [id number] IV Last administered on 04/13 22:24; Admin Dose 60 MLS/HR; Start 04/13/17 at 21:00 Pantoprazole (Protonix Iv) 40 mg 06 IV Last administered on 04/14/17 05:15; Admin Dose 40 MG; Start 04/14/17 at 06:00 Diagnostic Test (Pha) (Accu-Chek) 1 ea 02 XX ; Start 04/14/17 at 02:00 Insulin Aspart (Novolog Insulin Pen) NOVOLOG *MILD* ALGORI... Q4 SC Last administered on 04/14/17 00:36; Admin Dose 2 UNIT; Start 04/14/17 at 01:00 Miscellaneous Information 1 ea NOTE XX ; Start 04/13/17 at 21:30 Glucose (Glutose) 15 gm Q15M PRN PO DECREASED GLUCOSE; Start 04/13/17 at 21:30 Glucose (Glutose) 22.5 gm Q15M PRN PO DECREASED GLUCOSE; Start 04/13/17 at 21: 30 Dextrose (D50w Syringe) 25 ml Q15M PRN IV DECREASED GLUCOSE; Start 04/13/17 at 21:30 Dextrose (D50w Syringe) 50 ml Q15M PRN IV DECREASED GLUCOSE; Start 04/13/17 at 21:30 Glucagon (Glucagen) 1 mg Q15M PRN IM DECREASED GLUCOSE; Start 04/13/17 at 21:30 Glucose (Glutose) 15 gm Q15M PRN BUCCAL DECREASED GLUCOSE; Start 04/13/17 at 21 :30 Ondansetron HCl (Zofran Inj) 4 mg Q6 PRN IV NAUSEA AND/OR VOMITING; Start 04/13 at 21:30 Hydromorphone HCl (Dilaudid) 0.5 mg Q3 PRN IV PAIN LEVEL 7-10; Start 04/13/17 at 22:00 Acetaminophen 650 mg 650 mg Q4H PRN [place] PAIN OR TEMP ABOVE 38C Last administered on 04/13/17 22:31; Admin Dose 650 MG; Start 04/13/17 at 22:00 Sodium Chloride (NS) 500 ml @ 500 mls/hr Q1H ONCE IV Last administered on 04/14 08:42; Admin Dose 500 MLS/HR; Start 04/14/17 at 09:00; Stop 04/14/17 at 09 :59 NGOC GARZA MD Apr 14, 2017 08:55
[2017-04-14] MEDS ORDERED: SOD CHLORIDE 0.9% 500 ML IV ONE (09:00)
[2017-04-14 09:10] LABS: ANISOCYTOSIS 2+ (0-0); BURR CELLS 2+ (0-0); HYPOCHROMASIA 1+ (0-0); MONOCYTES % (M) 3 % (0-11); PLATELET ESTIMATE NORMAL; POIKILOCYTOSIS 3+ (0-0)
--- NOTE | 2017-04-14 09:22 | CONS ---
Date/Time of Note Date/Time of Note DATE: 04/14/17 TIME: 09:20 Consultation Date/Type/Reason Admit Date/Time Apr 13, 2017 at 19:51 Initial Consult Date 04/13/17 Type of Consultation: NEPHROLOGY Referring Provider: DARREL BURT MD 24 HR Interval Summary Free Text/Dictation 66 yo with colon/rectal CA - abnormal ECG with inf/high lat st-t changes and now low BP - will advise ICU transfer, blood tx, stat troponin - not a candidate for anti-coagulation ow with anemia/low BP - full note dictated # [id number] Exam/Review of Systems Vital Signs Vitals Vital Signs Date Time Temp Pulse Resp B/P Pulse Ox O2 Delivery O2 Flow Rate FiO2 04/14/17 08:54 71 04/14/17 08:24 97.9 18 72/39 99 04/13/17 20:19 Room Air Intake and Output 04/13/17 04/13/17 04/14/17 15:00 23:00 07:00 Intake Total 860 ml Balance 860 ml Results Result Diagram: 04/14/17 0645 04/14/17 0645 Results 24 hrs Laboratory Tests Test 04/13/17 15:30 04/13/17 15:40 04/13/17 15:45 04/13/17 16:00 White Blood Count 16.0 #H Red Blood Count 2.63 #L Hemoglobin 8.3 L Hematocrit 23.9 #L Mean Corpuscular Volume 90.9 Mean Corpuscular Hemoglobin 31.6 Mean Corpuscular Hemoglobin Concent 34.7 Red Cell Distribution Width 13.8 Platelet Count 364 Mean Platelet Volume 8.6 # Neutrophils % Segmented Neutrophils % (Manual) 67 Band Neutrophils % (Manual) 15 H Lymphocytes % Lymphocytes % (Manual) 11 L Monocytes % Monocytes % (Manual) 7 Eosinophils % Basophils % Nucleated Red Blood Cells % 0.0 Neutrophils # (Manual) 11.1 H Band Neutrophils # 2.4 H Absolute Lymphocytes (Manual) 1.7 Lymphocytes # 1.8 Monocytes # 1.1 H Absolute Monocytes (Manual) 1.1 H Eosinophils # Basophils # Nucleated Red Blood Cells # Urine Color YELLOW Urine Clarity CLEAR Urine pH 5.0 Urine Specific [place] 1.006 Urine Ketones TRACE A Urine Nitrite NEGATIVE Urine Bilirubin NEGATIVE Urine Urobilinogen NEGATIVE Urine Leukocyte Esterase NEGATIVE Urine Microscopic RBC 1 Urine Microscopic WBC 1 Urine Hemoglobin 2+ H Urine Glucose NEGATIVE Urine Total Protein NEGATIVE Troponin I < 0.012 Erythrocyte Sedimentation Rate 95 H Lactic Acid Level 1.2 Bedside Urine pH (LAB) 5.5 Bedside Urine Protein (LAB) Trace H Bedside Urine Glucose (UA) Negative Bedside Urine Ketones (LAB) Trace H Bedside Urine Blood 2+ H Bedside Urine Nitrite (LAB) Negative Bedside Urine Leukocyte Esterase (L Negative Prothrombin Time 29.3 #H Prothrombin Time Ratio 2.3 INR International Normalized Ratio 2.73 Activated Partial Thromboplast Time > 180.0 *H D-Dimer 5062.43 H D-Dimer Comment Sodium Level 129 L Potassium Level 4.2 Chloride Level 99 Carbon Dioxide Level 23 Anion Gap 11 Blood Urea Nitrogen 22 H Creatinine 0.74 Glucose Level 124 Calcium Level 8.4 Total Bilirubin 0.5 Direct Bilirubin 0.00 Indirect Bilirubin 0.5 Aspartate Amino Transf (AST/SGOT) 116 H Alanine Aminotransferase (ALT/SGPT) 91 H Alkaline Phosphatase 259 H Total Protein 6.1 Albumin 2.7 L Globulin 3.40 H Albumin/Globulin Ratio 0.79 Lipase 295 Test 04/13/17 18:45 04/13/17 22:02 04/14/17 00:34 04/14/17 05:23 Prothrombin Time 17.7 #H Prothrombin Time Ratio 1.4 INR International Normalized Ratio 1.45 Activated Partial Thromboplast Time 29.3 Lactic Acid Level 1.4 1.6 Creatine Kinase 41 Creatine Kinase Index 2.9 Creatinine Kinase MB (Mass) 1.18 Troponin I < 0.012 Triglycerides Level 74 Cholesterol Level 77 L LDL Cholesterol, Calculated 48 HDL Cholesterol 14 L Cholesterol/HDL Ratio 5.5 Bedside Glucose 216 104 Test 04/14/17 06:45 04/14/17 08:16 White Blood Count 16.2 H Red Blood Count 2.46 L Hemoglobin 7.8 L Hematocrit 22.8 L Mean Corpuscular Volume 92.7 Mean Corpuscular Hemoglobin 31.7 Mean Corpuscular Hemoglobin Concent 34.2 Red Cell Distribution Width 14.2 Platelet Count 256 # Mean Platelet Volume 10.4 # Neutrophils % Segmented Neutrophils % (Manual) 61 Band Neutrophils % (Manual) 32 H Lymphocytes % Lymphocytes % (Manual) 4 L Monocytes % Monocytes % (Manual) 3 Eosinophils % Basophils % Nucleated Red Blood Cells % 0.0 Neutrophils # (Manual) 10.7 H Band Neutrophils # 5.1 H Absolute Lymphocytes (Manual) 0.6 L Lymphocytes # Monocytes # Absolute Monocytes (Manual) 0.4 Eosinophils # Basophils # Nucleated Red Blood Cells # Platelet Estimate NORMAL Hypochromasia 1+ Poikilocytosis 3+ Anisocytosis 2+ Macrocytosis 2+ Prothrombin Time 18.2 H Prothrombin Time Ratio 1.4 INR International Normalized Ratio 1.50 Activated Partial Thromboplast Time 30.6 Sodium Level 135 Potassium Level 4.6 Chloride Level 104 Carbon Dioxide Level 24 Anion Gap 12 Blood Urea Nitrogen 14 Creatinine 0.55 Glucose Level 121 Calcium Level 7.9 L Total Bilirubin 0.5 Direct Bilirubin 0.00 Indirect Bilirubin 0.5 Aspartate Amino Transf (AST/SGOT) 98 H Alanine Aminotransferase (ALT/SGPT) 98 H Alkaline Phosphatase 216 H Creatine Kinase 54 Creatine Kinase Index 1.5 Creatinine Kinase MB (Mass) 0.80 Troponin I < 0.012 Total Protein 4.9 #L Albumin 2.1 L Globulin 2.80 Albumin/Globulin Ratio 0.75 Bedside Glucose 120 Medications Medications Current Medications Piperacillin Sod/ Tazobactam Sod 100 ml @ 200 mls/hr Q8 IVPB Last administered on 04/14/17 05:25; Admin Dose 200 MLS/HR; Start 04/13/17 at 23:30 Linezolid 300 ml @ 300 mls/hr Q12 IVPB Last administered on 04/13/17 22:45; Admin Dose 300 MLS/HR; Start 04/13/17 at 21:00 Sodium Chloride (NS) 1,000 ml @ 60 mls/hr [id number] IV Last administered on 04/13 22:24; Admin Dose 60 MLS/HR; Start 04/13/17 at 21:00 Pantoprazole (Protonix Iv) 40 mg 06 IV Last administered on 04/14/17 05:15; Admin Dose 40 MG; Start 04/14/17 at 06:00 Diagnostic Test (Pha) (Accu-Chek) 1 ea 02 XX ; Start 04/14/17 at 02:00 Insulin Aspart (Novolog Insulin Pen) NOVOLOG *MILD* ALGORI... Q4 SC Last administered on 04/14/17 00:36; Admin Dose 2 UNIT; Start 04/14/17 at 01:00 Miscellaneous Information 1 ea NOTE XX ; Start 04/13/17 at 21:30 Glucose (Glutose) 15 gm Q15M PRN PO DECREASED GLUCOSE; Start 04/13/17 at 21:30 Glucose (Glutose) 22.5 gm Q15M PRN PO DECREASED GLUCOSE; Start 04/13/17 at 21: 30 Dextrose (D50w Syringe) 25 ml Q15M PRN IV DECREASED GLUCOSE; Start 04/13/17 at 21:30 Dextrose (D50w Syringe) 50 ml Q15M PRN IV DECREASED GLUCOSE; Start 04/13/17 at 21:30 Glucagon (Glucagen) 1 mg Q15M PRN IM DECREASED GLUCOSE; Start 04/13/17 at 21:30 Glucose (Glutose) 15 gm Q15M PRN BUCCAL DECREASED GLUCOSE; Start 04/13/17 at 21 :30 Ondansetron HCl (Zofran Inj) 4 mg Q6 PRN IV NAUSEA AND/OR VOMITING; Start 04/13 at 21:30 Hydromorphone HCl (Dilaudid) 0.5 mg Q3 PRN IV PAIN LEVEL 7-10; Start 04/13/17 at 22:00 Acetaminophen 650 mg 650 mg Q4H PRN [place] PAIN OR TEMP ABOVE 38C Last administered on 04/13/17 22:31; Admin Dose 650 MG; Start 04/13/17 at 22:00 Sodium Chloride (NS) 500 ml @ 500 mls/hr Q1H ONCE IV Last administered on 04/14 08:42; Admin Dose 500 MLS/HR; Start 04/14/17 at 09:00; Stop 04/14/17 at 09 :59 JAIME BULLARD MD Apr 14, 2017 09:22
--- NOTE | 2017-04-14 09:56 | RADRPT ---
Echocardiogram Report Patient Name: AYANA ORTEGA Gender: Female Date: 1950 Study Date: 14-Apr-2017 Actuarial Director: Charles Oliva [facility] Location: [id number] Ref. Physician: MESHA VELASQUEZ Quality: Adequate Procedures: Transthoracic echocardiogram with complete 2D, M-Mode, and doppler examination. Indications: Chest Pain. 2D/M Mode Doppler Measurement Value Normal Ranges Measurement Value Normal Ranges LVIDd 2D 3.7 3.5 - 5.6 cm AV Peak Tanner 1.1 m/sec LVIDs 2D 2.8 2.1 - 4.1 cm AV Peak PG 5.0 mmHg FS 2D 24.6 % LVOT Peak Tanner 1.0 m/sec LVPWd 2D 1.1 0.6 - 1.1 cm LVOT Peak PG 4.0 mmHg IVSd 2D 1.1 0.6 - 1.1 cm MV A Peak Tanner 0.6 m/sec IVS/LVPW 2D 1.0 MV Decel Time 299 msec AoR Diam 2D 3.1 2.0 - 3.7 cm TR Peak Tanner 2.3 m/sec LA/Ao 2D 1 0 - 1 TR Peak PG 21.0 mmHg EDV 2D 52.3 cm3 RVSP 24.0 mmHg ESV 2D 22.4 cm3 LA Dimen 2D 2.7 2.3 - 4.0 cm Findings Left Ventricle: Normal left ventricular systolic function. Normal left ventricular cavity size. Mild concentric left ventricular hypertrophy. Ejection fraction is visually estimated at 65 %. Tissue Doppler/Mitral Doppler indices are consistent with impaired relaxation (Stage I diastolic dysfunction). Right Ventricle: Normal right ventricular size. Normal right ventricular systolic function. Left Atrium: The left atrium is normal in size. Right Atrium: The right atrium is normal in size. Mitral Valve: Mitral valve leaflets appear mildly thickened. Mild mitral annular calcification. Trace mitral regurgitation. Aortic Valve: Normal appearance of the aortic valve. No significant aortic stenosis or insufficiency. Tricuspid Valve: Normal appearance of the tricuspid valve. Estimated peak PA systolic pressure 24 mmHg. There is trace tricuspid regurgitation. Pulmonic Valve: Normal pulmonic valve appearance. Pericardium: Trivial pericardial effusion. Aorta: Normal aortic root. IVC: Normal size and normal respiratory collapse consistent with normal right atrial pressure. Conclusions 1.Normal left ventricular systolic function. Normal left ventricular cavity size. Mild concentric left ventricular hypertrophy. Ejection fraction is visually estimated at 65 %. Tissue Doppler/Mitral Doppler indices are consistent with impaired relaxation (Stage I diastolic dysfunction). 2.Mitral valve leaflets appear mildly thickened. Mild mitral annular calcification. Trace mitral regurgitation. 3.Normal appearance of the tricuspid valve. Estimated peak PA systolic pressure 24 mmHg. There is trace tricuspid regurgitation. 4.Normal appearance of the aortic valve. No significant aortic stenosis or insufficiency. Electronically Signed By: Lucas Ayala 14-Apr-2017 09:55:59 -0700 Patient Name: AYANA ORTEGA Study Date: 14-Apr-[id number]
[2017-04-14] MEDS: LINEZOLID 600 MG/D5W (PMX) 300 ML IVPB SCH ×2 (10:25→22:09)
[2017-04-14] MEDS ORDERED: PHYTONADIONE 10 MG in DEXTROSE 5% 50 ML IVPB ONE (11:30)
--- NOTE | 2017-04-14 11:31 | CONS ---
DATE OF ADMISSION: 04/13/2017 DATE OF CONSULTATION: 04/14/2017 REFERRING PHYSICIAN: Dr. Dior. REASON FOR CONSULTATION: History of hypotension, abnormal EKG. HISTORY OF PRESENT ILLNESS: The patient is here for evaluation of hypotension. She has a history of rectal cancer and possible colon cancer with anterior resection of her rectal cancer. The patient comes in with hypotension. I have been asked to see patient in consultation. I reviewed her EKG carefully. It shows a very unusual EKG pattern. The patient's EKG interpretation has diffuse ST-T wave elevations, although upon closure examination most of it appears to be in anterior leads, as well as lateral leads. This would be a pattern possibly consistent with ischemia. However, patient does not elicit any chest pain at this particular point and her first set of troponins is negative. I followed up with an echo check and the preliminary interpretation of the echo, which shows preserved ejection fraction, no precordial effusion. According to the patient is hypotensive, but not tachycardic, which she does not appear to be in tamponade. For now, we will continue to treat the patient expectantly. She is going to have serial boluses of normal saline fluid. I will recommend for patient to be transferred to intensive care unit for further monitoring because of multiple comorbidities and hypotension. SOCIAL HISTORY: Patient does not smoke, does not drink, does not use drugs. FAMILY HISTORY: Negative for sudden cardiac or premature coronary artery disease. PAST MEDICAL HISTORY: Hypertension, history of cirrhosis of unknown etiology, history of colon cancer, history of rectal cancer with prior resection, diabetes. ALLERGIES: PATIENT IS ALLERGIC TO: CODEINE. HYDROCODONE. NAPROSYN. TRAMADOL. VANCOMYCIN. REVIEW OF SYSTEMS: CONSTITUTIONAL: No fevers, no chills. Hypotension and dizziness. HEENT: . CARDIOVASCULAR: No chest pain reported. RESPIRATORY: Normal. GASTROINTESTINAL: Nausea. Evidence of bowel distension. GENITOURINARY: No dysuria, hematuria. NEUROLOGIC: No focal neurologic deficits. HEMATOLOGIC: History of anemia and significant liver abnormalities on laboratory data. PHYSICAL EXAMINATION: VITAL SIGNS: Temperature is 97.9, pulse 71, blood pressure is 72/39. GENERAL: She is a thin woman, in no acute distress. Alert and oriented x3. and dizzy. HEENT: Head is normocephalic, atraumatic. Sclerae anicteric. NECK: Supple. JVD 6-7 cm is noted. No lymphadenopathy or thyromegaly. CARDIAC: Regular. Soft diastolic murmur. . PMI is . ABDOMEN: Distended. Bowel sounds are present. There is no hepatosplenomegaly. GENITOURINARY: Intact. EXTREMITIES: Show no cyanosis, clubbing or edema. LABORATORY: PTT was 18.2, INR was 2.73 on presentation. Her white blood cells 16.2, hemoglobin is 7.8, platelets 256. Sodium 135, potassium 4.6, BUN 14, creatinine is 0.5. Her troponin is negative at 0.012. AST is 98, ALT is 98 and alk phos is 216. IMPRESSION: 1. Hypotension. The patient is hypotensive now in the setting of abnormal electrocardiogram. I will transfer the patient to intensive care unit and we will check another set of troponins in the setting of hypotension with low hemoglobin. I will recommend for patient to have a blood transfusion and we will transfuse 1 unit now. 2. Abnormal electrocardiogram. Patient has abnormal electrocardiogram showing diffuse ST-T changes with mostly in the anterior leads, as well as her lateral leads. We will check another set of troponins. Patient is not a candidate for anticoagulation at the moment because of anemia and abnormal liver function tests. She cannot tolerate any beta paul at the moment either because of the low blood pressure. 3. Colon and rectal cancer. We will defer to primary team evaluation and management. 4. Prior history of abdominal distension, gastrointestinal bleed. We will defer to primary team. I would to thank, Dr. Dior, for referring this patient for my evaluation. Dictated By: Lucas Ayala MD /rachel/talat /Document#: [id number]
--- NOTE | 2017-04-14 12:19 | CONS ---
DATE OF ADMISSION: 04/13/2017 DATE OF CONSULTATION: 04/14/2017 TYPE OF CONSULTATION: Surgical. Actually, consultation was requested originally for Dr. Martin and I am covering Dr. Martin. I see the patient for consultation. REASON FOR CONSULTATION: Evaluation of the patient for liver abscesses. HISTORY OF PRESENT ILLNESS AND CHIEF COMPLAINT: This is a 66- year-old female, who apparently presented to the emergency room last night because of aggravating and increasing fatigue, chills, fever, weakness and pain upon deep respiration in the chest area anteriorly. Actually, I got the history from patient's daughter, whom the patient is living with. She said that about as of 2 weeks ago, she felt the onset of shaking chills and gradually started to be weak and appetite was decreased and whenever she was taking deep breaths, she was feeling anterior chest pain. So, gradually she became very weak and continued to have shaking chills and sweating. So they were worried and brought her to the emergency room last night. In the emergency room, the patient was evaluated by Dr. Nicholas. Vital signs in the emergency room were as follows: Temperature 97.7, heart rate 78, respiration 23, blood pressure 89/68, saturation 100 percent on room air. Labs revealed that WBC was 16,000 with 67 percent neutrophils, 15 percent bands, hemoglobin 8.3, hematocrit 23.9. Chemistry revealed sodium was 129, BUN 22, creatinine 0.74. Bilirubin 0.5 total, AST 116 high, ALT 91 high and alkaline phosphatase 259 high, total protein 6.1, albumin 2.7 low. Chest x-ray was taken, it is reported in the computer. They obtained a CT scan of the abdomen and pelvis, which revealed the followin. Multiloculated rim-enhancing collection spanning the anterior right medial left hepatic lobe measuring 12.4 x 9.2 x 11.1 cm, highly suggestive of sepsis given the patient's clinical data. 2. Minor consolidation with associated cylindrical bronchiectasis in the lingula, likely the sequela of chronic infection. 3. Nonspecific nodules in the right lung measuring up to 3 mm in diameter. Attention on followup is recommended. 4. Nonspecific right hilar adenopathy. 5. Intermediate 1.5 cm hypodense lesion at the midportion of the right kidney unchanged in size and appearance when compared with the prior exam from 09/18/2016. Attention on followup is recommended. 6. Postoperative changes at the rectosigmoid junction. There is resolution of a small 3 sacral collection suggestive of a resolving seroma or other postoperative collection. No findings to suggest residual or recurrent disease at this operative site. Similar appearance of a probably benign hemangioma of the L1 vertebral body. So considering the above lab results and radiology with the initial impression of liver abscess, patient was admitted and started on antibiotics Zosyn and IV started. After receiving 1 L or so of normal saline. The patient's blood pressure is slightly increased, so the patient was admitted to telemetry. PAST MEDICAL HISTORY: History of probably allergy rhinitis. No history of smoking. 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 Postop, patient did tolerate well and has been followed by Dr. Martin in his office. ALLERGIES: PATIENT IS ALLERGIC TO: VANCOMYCIN. HYDROCODONE. TRAMADOL. CODEINE. NAPROXEN. PHYSICAL EXAMINATION: GENERAL APPEARANCE: Patient today was seen and examined in the ICU. The information was given by the patient and patient's daughter, whom she lives with and speaks [place]. As was mentioned, the daughter states that since 2 weeks ago patient had started not feeling good and having chest pain on deep breathing associated with chills and some fevers and decreased appetite and weakness. VITAL SIGNS: Today in the ICU, the patient's temperature is 98.9. Heart rate is 84, respiration is 18, blood pressure is 101/56, saturation 99 percent room air. HEAD AND NECK: Within normal limits. Poor dental hygiene. CHEST: Symmetrical expansion. No hemithorax. LUNGS: Clear. Possibly decreased breathing sound in the bases. ABDOMEN: Not distended. Bowel sounds present. Abdomen is soft. No guarding. No tenderness. EXTREMITIES: No pitting edema. LABORATORY: Mentioned. Chest x-ray, and the imaging system was mentioned. 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 1. Evaluation reveals leukocytosis. 2. Anemia. Actually, today this morning, the hemoglobin is 7.8, hematocrit 22.8. 3. Very large loculated what appears to be liver abscess. PLAN: The patient has been started on antibiotic, which is going to be handled by Infectious Disease accordingly. Blood cultures and other cultures have been sent through the emergency room, but no result is not available yet. The patient is going to get 2 units of FFP because the coagulation factors are not normal. The PT is 18 and INR is 1.5 cm. The patient is going to have percutaneous drainage of liver abscess, already I have talked to Dr. Decker in the radiology department. So we are going to give vitamin K and FFP and also she is going to get some blood transfusion, and antibiotics as mentioned. Conservative management for other symptoms, like decreased blood pressure, she is going to get more fluid. I will continue to follow the patient along with other colleagues. Dictated By: Osmani Ceballos MD /rachel/talat /Document#: [id number] SANJAY
[2017-04-14] MEDS: SOD CHLORIDE 0.9% 1,000 ML IV SCH (13:40)
--- NOTE | 2017-04-14 17:00 | CONS ---
Date/Time of Note Date/Time of Note DATE: 04/14/17 TIME: 16:59 Assessment/Plan Assessment/Plan Chief Complaint/Hosp Course asked to consult. full note to follow. Problems: Consultation Date/Type/Reason Admit Date/Time Apr 13, 2017 at 19:51 Initial Consult Date 04/13/17 Type of Consultation: ID Referring Provider: DARREL BURT MD Exam/Review of Systems Vital Signs Vitals Vital Signs Date Time Temp Pulse Resp B/P Pulse Ox O2 Delivery O2 Flow Rate FiO2 04/14/17 16:00 87 04/14/17 15:30 23 105/60 98 Nasal Cannula 2.0 04/14/17 12:00 97.8 Intake and Output 04/13/17 04/13/17 04/14/17 15:00 23:00 07:00 Intake Total 860 ml Balance 860 ml Results Result Diagram: 04/14/17 0645 04/14/17 0645 Results 24 hrs Laboratory Tests Test 04/13/17 18:45 04/13/17 22:02 04/14/17 00:34 04/14/17 05:23 Prothrombin Time 17.7 #H Prothrombin Time Ratio 1.4 INR International Normalized Ratio 1.45 Activated Partial Thromboplast Time 29.3 Lactic Acid Level 1.4 1.6 Creatine Kinase 41 Creatine Kinase Index 2.9 Creatinine Kinase MB (Mass) 1.18 Troponin I < 0.012 Triglycerides Level 74 Cholesterol Level 77 L LDL Cholesterol, Calculated 48 HDL Cholesterol 14 L Cholesterol/HDL Ratio 5.5 Bedside Glucose 216 104 Test 04/14/17 06:45 04/14/17 08:16 04/14/17 09:29 04/14/17 12:59 White Blood Count 16.2 H Red Blood Count 2.46 L Hemoglobin 7.8 L Hematocrit 22.8 L Mean Corpuscular Volume 92.7 Mean Corpuscular Hemoglobin 31.7 Mean Corpuscular Hemoglobin Concent 34.2 Red Cell Distribution Width 14.2 Platelet Count 256 # Mean Platelet Volume 10.4 # Neutrophils % Segmented Neutrophils % (Manual) 61 Band Neutrophils % (Manual) 32 H Lymphocytes % Lymphocytes % (Manual) 4 L Monocytes % Monocytes % (Manual) 3 Eosinophils % Basophils % Nucleated Red Blood Cells % 0.0 Neutrophils # (Manual) 10.7 H Band Neutrophils # 5.1 H Absolute Lymphocytes (Manual) 0.6 L Lymphocytes # Monocytes # Absolute Monocytes (Manual) 0.4 Eosinophils # Basophils # Nucleated Red Blood Cells # Platelet Estimate NORMAL Hypochromasia 1+ Poikilocytosis 3+ Anisocytosis 2+ Macrocytosis 2+ Prothrombin Time 18.2 H Prothrombin Time Ratio 1.4 INR International Normalized Ratio 1.50 Activated Partial Thromboplast Time 30.6 Sodium Level 135 Potassium Level 4.6 Chloride Level 104 Carbon Dioxide Level 24 Anion Gap 12 Blood Urea Nitrogen 14 Creatinine 0.55 Glucose Level 121 Calcium Level 7.9 L Total Bilirubin 0.5 Direct Bilirubin 0.00 Indirect Bilirubin 0.5 Aspartate Amino Transf (AST/SGOT) 98 H Alanine Aminotransferase (ALT/SGPT) 98 H Alkaline Phosphatase 216 H Creatine Kinase 54 Creatine Kinase Index 1.5 Creatinine Kinase MB (Mass) 0.80 Troponin I < 0.012 < 0.012 Total Protein 4.9 #L Albumin 2.1 L Globulin 2.80 Albumin/Globulin Ratio 0.75 Bedside Glucose 120 169 Test 04/14/17 14:16 04/14/17 16:00 Bedside Glucose 153 Activated Partial Thromboplast Time 29.1 Medications Medications Current Medications Piperacillin Sod/ Tazobactam Sod 100 ml @ 200 mls/hr Q8 IVPB Last administered on 04/14/17 14:21; Admin Dose 200 MLS/HR; Start 04/13/17 at 23:30 Linezolid 300 ml @ 300 mls/hr Q12 IVPB Last administered on 04/14/17 10:25; Admin Dose 300 MLS/HR; Start 04/13/17 at 21:00 Sodium Chloride (NS) 1,000 ml @ 60 mls/hr [id number] IV Last administered on 04/13 22:24; Admin Dose 60 MLS/HR; Start 04/13/17 at 21:00 Diagnostic Test (Pha) (Accu-Chek) 1 ea 02 XX ; Start 04/14/17 at 02:00 Insulin Aspart (Novolog Insulin Pen) NOVOLOG *MILD* ALGORI... Q4 SC Last administered on 04/14/17 14:19; Admin Dose 1 UNIT; Start 04/14/17 at 01:00 Miscellaneous Information 1 ea NOTE XX ; Start 04/13/17 at 21:30 Glucose (Glutose) 15 gm Q15M PRN PO DECREASED GLUCOSE; Start 04/13/17 at 21:30 Glucose (Glutose) 22.5 gm Q15M PRN PO DECREASED GLUCOSE; Start 04/13/17 at 21: 30 Dextrose (D50w Syringe) 25 ml Q15M PRN IV DECREASED GLUCOSE; Start 04/13/17 at 21:30 Dextrose (D50w Syringe) 50 ml Q15M PRN IV DECREASED GLUCOSE; Start 04/13/17 at 21:30 Glucagon (Glucagen) 1 mg Q15M PRN IM DECREASED GLUCOSE; Start 04/13/17 at 21:30 Glucose (Glutose) 15 gm Q15M PRN BUCCAL DECREASED GLUCOSE; Start 04/13/17 at 21 :30 Ondansetron HCl (Zofran Inj) 4 mg Q6 PRN IV NAUSEA AND/OR VOMITING; Start 04/13 at 21:30 Hydromorphone HCl (Dilaudid) 0.5 mg Q3 PRN IV PAIN LEVEL 7-10; Start 04/13/17 at 22:00 Acetaminophen (Tylenol Supp) 650 mg Q4H PRN [place] PAIN OR TEMP ABOVE 38C Last administered on 04/13/17t 22:31; Admin Dose 650 MG; Start 04/13/17 at 22:00 Famotidine (Pepcid Iv) 20 mg BID IV ; Start 04/15/17 at 09:00 CHIOMA ROGERS MD Apr 14, 2017 17:00
[2017-04-14 17:48] LABS: BASOPHILS % 0.3 % (0.0-2.0); HEMATOCRIT 25.8 % (37.0-47.0); LYMPHOCYTES # 0.9 10^3/ul (0.8-2.9); MEAN CORPUSCULAR HEMOGLOBIN 31.3 pg (29.0-33.0); MEAN CORPUSCULAR HGB CONC 34.9 g/dl (32.0-37.0); MEAN CORPUSCULAR VOLUME 89.6 fl (82.0-101.0); MEAN PLATELET VOLUME 8.3 fl (7.4-10.4); MONOCYTES % 6.3 % (0.0-11.0); NEUTROPHILS % 86.1 % (39.0-77.0); PLATELET COUNT 324 10^3/UL (140-415); RED BLOOD COUNT 2.88 10^6/ul (4.20-5.40); RED CELL DISTRIBUTION WIDTH 14.3 % (11.5-14.5); WHITE BLOOD COUNT 15.6 10^3/ul (4.8-10.8)
[2017-04-14 18:06] LABS: CALCIUM 8.2 mg/dl (8.4-10.2); CREATININE 0.58 mg/dl (0.44-1.00); POTASSIUM 3.5 mmol/L (3.5-5.1)
[2017-04-15] VITALS (44 sets, daily range): BP systolic 73–165; BP diastolic 33–121; PULSE 67–141; RESP 10–33
[2017-04-15] MEDS: INSULIN ASPART [NOVOLOG] 3 ML PEN SC SCH ×6 (01:00→20:55)
[2017-04-15] MEDS: ACETAMINOPHEN 650 MG SUPP PR PRN (01:39)
[2017-04-15] MEDS: ACCU-CHEK XX SCH (02:00)
[2017-04-15] MEDS: PIPER-TAZO 3.375 GM IV (PMX) 100 ML IVPB SCH ×3 (05:36→20:52)
[2017-04-15 05:53] LABS: BASOPHILS % 0.1 % (0.0-2.0); HEMATOCRIT 23.4 % (37.0-47.0); LYMPHOCYTES # 0.7 10^3/ul (0.8-2.9); LYMPHOCYTES % 4.6 % (15.0-51.0); MEAN CORPUSCULAR HEMOGLOBIN 30.7 pg (29.0-33.0); MEAN CORPUSCULAR HGB CONC 34.2 g/dl (32.0-37.0); MEAN CORPUSCULAR VOLUME 89.7 fl (82.0-101.0); MEAN PLATELET VOLUME 8.6 fl (7.4-10.4); MONOCYTE # 1.2 10^3/ul (0.3-0.9); MONOCYTES % 7.4 % (0.0-11.0); NEUTROPHILS % 86.5 % (39.0-77.0); PLATELET COUNT 287 10^3/UL (140-415); RED BLOOD COUNT 2.61 10^6/ul (4.20-5.40); RED CELL DISTRIBUTION WIDTH 14.7 % (11.5-14.5); WHITE BLOOD COUNT 15.6 10^3/ul (4.8-10.8)
[2017-04-15 05:55] LABS: POSITIVE DIFF @See below
[2017-04-15 06:30] LABS: CALCIUM 7.4 mg/dl (8.4-10.2); CREATININE 0.66 mg/dl (0.44-1.00); POTASSIUM 3.2 mmol/L (3.5-5.1)
[2017-04-15] MEDS: SOD CHLORIDE 0.9% 1,000 ML IV SCH (07:30)
[2017-04-15] MEDS ORDERED: POTASSIUM CHLORIDE (SR) 20 MEQ TAB PO STA (08:10)
[2017-04-15] MEDS ORDERED: POTASSIUM CHLORIDE 250 ML IVPB ONE ×2 (08:30→09:00)
[2017-04-15] MEDS: FAMOTIDINE 20 MG INJ IV SCH ×2 (09:02→20:51)
[2017-04-15] MEDS: LINEZOLID 600 MG/D5W (PMX) 300 ML IVPB SCH ×2 (09:02→20:52)
--- NOTE | 2017-04-15 11:24 | PN ---
Date/Time of Note Date/Time of Note DATE: 04/15/17 TIME: 11:16 Assessment/Plan VTE Prophylaxis VTE Prophylaxis Intervention: SCD's Lines/Catheters IV Catheter Type (from Nrs): Peripheral IV Urinary Cath still in place: No Subjective 24 Hr Interval Summary Free Text/Dictation DATE OF ADMISSION: 04/13/2017 DATE OF ENCOUNTER: 04/14/2017 REFERRING PHYSICIAN: Dr. Dior. REASON FOR CONSULTATION: History of hypotension, abnormal EKG. HISTORY OF PRESENT ILLNESS: The patient presented to the ER 2 days ago for evaluation of hypotension. She has a history of colon and rectal cancer s/p anterior resection. Dr Ayala reviewed her EKG which showed diffuse upsloping ST segment pattern in all leads (non ischemic pattern). The patient did not complain of pain whatsoever. She complains of pervasive weakness. All 3 sets of troponin were negative. The echocardiogram shows preserved ejection fraction and no precordial effusion. Patient was borderline hypotensive without tachycardia. There was no evidence of cardiac tamponade. She was treated with serial fluid boluses of normal saline. For precaution, she was admitted to the intensive care unit for further monitoring SOCIAL HISTORY (habits): Patient does not smoke, does not drink, does not use drugs. FAMILY HISTORY: Negative for sudden cardiac or premature coronary artery disease. PAST MEDICAL HISTORY: Hypertension, history of cirrhosis of liver, unknown etiology, history of colon cancer, history of rectal cancer with prior resection, diabetes. ALLERGIES: PATIENT IS ALLERGIC TO: CODEINE. HYDROCODONE. NAPROSYN. TRAMADOL. VANCOMYCIN. (specifics not entered) REVIEW OF SYSTEMS: CONSTITUTIONAL: WEAKNESS, FATIGUE, No fevers, no chills. Hypotension and dizziness. HEENT: no complaints. CARDIOVASCULAR: No chest pain, no shortness of breath reported. RESPIRATORY: Normal. GASTROINTESTINAL: Nausea and evidence of bowel distension. GENITOURINARY: No dysuria, hematuria. NEUROLOGIC: No focal neurologic deficits. HEMATOLOGIC: History of anemia and significant liver abnormalities by laboratory data. PHYSICAL EXAMINATION: VITAL SIGNS: Temperature is 98.7, pulse 97 BPM, regular, BP 90/60 mmHg. SaO2 sat 98% on 2 L/min. per NC. GENERAL: She is a thin woman, in no acute distress. She is alert and oriented x3. HEENT: Head is normocephalic, atraumatic. Sclerae anicteric. NECK: Supple. JVD 6-7 cm is noted. No lymphadenopathy or thyromegaly. CARDIAC: Regular. PMI is normal. Regular rate and rhythm. Soft diastolic murmur. ABDOMEN: Distended. Bowel sounds are present. There is no hepatosplenomegaly. GENITOURINARY: Intact. EXTREMITIES: Show no cyanosis, clubbing or edema. LABORATORY: PTT was 18.2, INR was 2.73 on presentation. Her white blood cells 16.2, hemoglobin is 7.8, platelets 256. Sodium 135, potassium 4.6, BUN 14, creatinine is 0.5. Her troponin is negative at 0.012. AST is 98, ALT is 98 and alk phos is 216. IMPRESSION: 1. Hypotension. The patient is hypotensive now in the setting of abnormal electrocardiogram but no myocardial ischemia. 2. Anemia. Patient was treated with ? units of PRBC blood transfusion and FSP. 3. Abnormal electrocardiogram is likely irrelevant to the patient's diagnosis , treatment and prognosis. Patient is not a candidate for anticoagulation at the moment because of anemia and abnormal liver function tests. She cannot tolerate any beta paul at the moment either because of the low blood pressure (nor does she need it). 4. Colon and rectal cancer. We will defer to primary team evaluation and management. 5. Prior history of abdominal distension, cancer and gastrointestinal bleed. We will defer to primary team. BARBARA ROMERO MD Exam/Review of Systems Vital Signs Vitals Vital Signs Date Time Temp Pulse Resp B/P Pulse Ox O2 Delivery O2 Flow Rate FiO2 04/15/17 08:00 71 04/15/17 07:00 17 86/53 98 04/15/17 06:30 98.7 Nasal Cannula 2.0 Intake and Output 04/14/17 04/14/17 04/15/17 15:00 23:00 07:00 Intake Total 690 ml 930 ml 480 ml Output Total 580 ml 650 ml 200 ml Balance 110 ml 280 ml 280 ml Results Result Diagram: 04/15/17 0504 04/15/17 0504 Results 24 hrs Laboratory Tests Test 04/14/17 12:59 04/14/17 14:16 04/14/17 16:00 04/14/17 17:00 Bedside Glucose 169 153 Activated Partial Thromboplast Time 29.1 HIV (1&2) Antibody NEGATIVE Test 04/14/17 17:40 04/14/17 17:46 04/14/17 22:31 04/15/17 01:47 White Blood Count 15.6 H Red Blood Count 2.88 L Hemoglobin 9.0 L Hematocrit 25.8 L Mean Corpuscular Volume 89.6 Mean Corpuscular Hemoglobin 31.3 Mean Corpuscular Hemoglobin Concent 34.9 Red Cell Distribution Width 14.3 Platelet Count 324 # Mean Platelet Volume 8.3 # Neutrophils % 86.1 H Lymphocytes % 6.0 L Monocytes % 6.3 Eosinophils % 0.0 Basophils % 0.3 Nucleated Red Blood Cells % 0.0 Neutrophils # (Manual) 13.4 H Lymphocytes # 0.9 Monocytes # 1.0 H Eosinophils # 0.0 Basophils # 0.0 Nucleated Red Blood Cells # 0.0 Sodium Level 134 L Potassium Level 3.5 Chloride Level 102 Carbon Dioxide Level 26 Anion Gap 10 Blood Urea Nitrogen 12 Creatinine 0.58 Glucose Level 138 Calcium Level 8.2 L Bedside Glucose 140 150 131 Test 04/15/17 05:03 04/15/17 05:04 04/15/17 05:30 04/15/17 09:41 Bedside Glucose 132 124 White Blood Count 15.6 H Red Blood Count 2.61 L Hemoglobin 8.0 L Hematocrit 23.4 L Mean Corpuscular Volume 89.7 Mean Corpuscular Hemoglobin 30.7 Mean Corpuscular Hemoglobin Concent 34.2 Red Cell Distribution Width 14.7 H Platelet Count 287 Mean Platelet Volume 8.6 Neutrophils % 86.5 H Lymphocytes % 4.6 L Monocytes % 7.4 Eosinophils % 0.0 Basophils % 0.1 Nucleated Red Blood Cells % 0.0 Neutrophils # (Manual) 13.5 H Lymphocytes # 0.7 L Monocytes # 1.2 H Eosinophils # 0.0 Basophils # 0.0 Nucleated Red Blood Cells # 0.0 Activated Partial Thromboplast Time 31.3 Sodium Level 136 Potassium Level 3.2 L Chloride Level 108 Carbon Dioxide Level 24 Anion Gap 7 L Blood Urea Nitrogen 13 Creatinine 0.66 Glucose Level 119 Calcium Level 7.4 L Lab Scanned Report BLOOD TRANSFUSION Medications Medications Current Medications Piperacillin Sod/ Tazobactam Sod 100 ml @ 200 mls/hr Q8 IVPB Last administered on 04/15/17t 05:36; Admin Dose 200 MLS/HR; Start 04/13/17 at 23:30 Linezolid 300 ml @ 300 mls/hr Q12 IVPB Last administered on 04/15/17 09:02; Admin Dose 300 MLS/HR; Start 04/13/17 at 21:00 Sodium Chloride (NS) 1,000 ml @ 60 mls/hr [id number] IV Last administered on 04/13 22:24; Admin Dose 60 MLS/HR; Start 04/13/17 at 21:00 Diagnostic Test (Pha) (Accu-Chek) 1 ea 02 XX Last administered on 04/15/17 02: 00; Admin Dose 1 EA; Start 04/14/17 at 02:00 Insulin Aspart (Novolog Insulin Pen) NOVOLOG *MILD* ALGORI... Q4 SC Last administered on 04/14/17 22:38; Admin Dose 1 UNIT; Start 04/14/17 at 01:00 Miscellaneous Information 1 ea NOTE XX ; Start 04/13/17 at 21:30 Glucose (Glutose) 15 gm Q15M PRN PO DECREASED GLUCOSE; Start 04/13/17 at 21:30 Glucose (Glutose) 22.5 gm Q15M PRN PO DECREASED GLUCOSE; Start 04/13/17 at 21: 30 Dextrose (D50w Syringe) 25 ml Q15M PRN IV DECREASED GLUCOSE; Start 04/13/17 at 21:30 Dextrose (D50w Syringe) 50 ml Q15M PRN IV DECREASED GLUCOSE; Start 04/13/17 at 21:30 Glucagon (Glucagen) 1 mg Q15M PRN IM DECREASED GLUCOSE; Start 04/13/17 at 21:30 Glucose (Glutose) 15 gm Q15M PRN BUCCAL DECREASED GLUCOSE; Start 04/13/17 at 21 :30 Ondansetron HCl (Zofran Inj) 4 mg Q6 PRN IV NAUSEA AND/OR VOMITING; Start 04/13 at 21:30 Hydromorphone HCl (Dilaudid) 0.5 mg Q3 PRN IV PAIN LEVEL 7-10; Start 04/13/17 at 22:00 Acetaminophen (Tylenol Supp) 650 mg Q4H PRN [place] PAIN OR TEMP ABOVE 38C Last administered on 04/15/17 01:39; Admin Dose 650 MG; Start 04/13/17 at 22:00 Famotidine 20 mg 20 mg BID IV Last administered on 04/15/17 09:02; Admin Dose 20 MG; Start 04/15/17 at 09:00 Potassium Chloride (KCl 40 MEQ/250 ML NS) 250 ml @ 62.5 mls/hr ONCE ONCE IVPB Last administered on 04/15/17 09:48; Admin Dose 62.5 MLS/HR; Start 04/15/17 at 08:30; Stop 04/15/17 at 12:29 BARBARA ROMERO MD Apr 15, 2017 11:24 BARBARA ROMERO MD Apr 15, 2017 11:24 BARBARA ROMERO MD Apr 15, 2017 11:24
[2017-04-15] MEDS ORDERED: FENTAnyl 50 MCG/ML VIAL ONE ×3 (12:40→14:00)
[2017-04-15] MEDS ORDERED: PROPOFOL 0 ML ONE (12:41)
[2017-04-15] MEDS ORDERED: PHENYLephrine (100 MCG/ML) 5ML SYG ONE (12:41)
[2017-04-15] MEDS ORDERED: LIDOCAINE 1% (MDV) 20 ML INJ ONE (13:02)
--- NOTE | 2017-04-15 13:51 | CONS ---
Date/Time of Note Date/Time of Note DATE: 04/15/17 TIME: 13:46 Assessment/Plan Assessment/Plan Chief Complaint/Hosp Course IMP: 1.Hypotension-borderline not requiring pressors 2.abnl ecg-with ST elevations antertior-negative trop x 3/NL EF by echo. NO CP 3.Liver abscess 4.H/O lung ca s/p resection with lung nodules by CT? 5.Lung nodules Recc: -Tele -serial ecg's -Continue abx's -F/U cx data -For abscess drain today -send additional troponin Problems: Consultation Date/Type/Reason Admit Date/Time Apr 13, 2017 at 19:51 Initial Consult Date 04/13/17 Type of Consultation: cardiology Reason for Consultation hypotension Referring Provider: DARREL BURT MD Exam/Review of Systems Vital Signs Vitals Vital Signs Date Time Temp Pulse Resp B/P Pulse Ox O2 Delivery O2 Flow Rate FiO2 04/15/17 12:00 97.8 84 19 105/63 94 Room Air 04/15/17 06:30 2.0 Intake and Output 04/14/17 04/14/17 04/15/17 15:00 23:00 07:00 Intake Total 690 ml 930 ml 480 ml Output Total 580 ml 650 ml 200 ml Balance 110 ml 280 ml 280 ml Exam Review of Systems: CONSTITUTIONAL: No fevers, chills. PULMONARY: No sob CARDIOVASCULAR: No chest pain/palpitations GASTROINTESTINAL: No nausea/vomiting. GENITOURINARY: No hematuria/dysuria. MUSCULOSKELETAL: No myagias/arthalgias. PSYCHIATRIC: The patient denies depression. NEUROLOGIC: lethargic Constitutional: alert Psych: no complaints Head: normocephalic ENMT: mucosa pink and moist Neck: supple Respiratory: diminished breath sounds (at bases/B) Cardiovascular: regular rate and rhythm Gastrointestinal: non-tender, soft Musculoskeletal: muscle tone (normal) Extremities: other (No focal deficits) 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: other (No focal deficits) Results Result Diagram: 04/15/17 0504 04/15/17 0504 Results 24 hrs Laboratory Tests Test 04/14/17 14:16 04/14/17 16:00 04/14/17 17:00 04/14/17 17:40 Bedside Glucose 153 Activated Partial Thromboplast Time 29.1 HIV (1&2) Antibody NEGATIVE White Blood Count 15.6 H Red Blood Count 2.88 L Hemoglobin 9.0 L Hematocrit 25.8 L Mean Corpuscular Volume 89.6 Mean Corpuscular Hemoglobin 31.3 Mean Corpuscular Hemoglobin Concent 34.9 Red Cell Distribution Width 14.3 Platelet Count 324 # Mean Platelet Volume 8.3 # Neutrophils % 86.1 H Lymphocytes % 6.0 L Monocytes % 6.3 Eosinophils % 0.0 Basophils % 0.3 Nucleated Red Blood Cells % 0.0 Neutrophils # (Manual) 13.4 H Lymphocytes # 0.9 Monocytes # 1.0 H Eosinophils # 0.0 Basophils # 0.0 Nucleated Red Blood Cells # 0.0 Sodium Level 134 L Potassium Level 3.5 Chloride Level 102 Carbon Dioxide Level 26 Anion Gap 10 Blood Urea Nitrogen 12 Creatinine 0.58 Glucose Level 138 Calcium Level 8.2 L Test 04/14/17 17:46 04/14/17 22:31 04/15/17 01:47 04/15/17 05:03 Bedside Glucose 140 150 131 132 Test 04/15/17 05:04 04/15/17 05:30 04/15/17 09:41 White Blood Count 15.6 H Red Blood Count 2.61 L Hemoglobin 8.0 L Hematocrit 23.4 L Mean Corpuscular Volume 89.7 Mean Corpuscular Hemoglobin 30.7 Mean Corpuscular Hemoglobin Concent 34.2 Red Cell Distribution Width 14.7 H Platelet Count 287 Mean Platelet Volume 8.6 Neutrophils % 86.5 H Lymphocytes % 4.6 L Monocytes % 7.4 Eosinophils % 0.0 Basophils % 0.1 Nucleated Red Blood Cells % 0.0 Neutrophils # (Manual) 13.5 H Lymphocytes # 0.7 L Monocytes # 1.2 H Eosinophils # 0.0 Basophils # 0.0 Nucleated Red Blood Cells # 0.0 Activated Partial Thromboplast Time 31.3 Sodium Level 136 Potassium Level 3.2 L Chloride Level 108 Carbon Dioxide Level 24 Anion Gap 7 L Blood Urea Nitrogen 13 Creatinine 0.66 Glucose Level 119 Calcium Level 7.4 L Lab Scanned Report BLOOD TRANSFUSION Bedside Glucose 124 Medications Medications Current Medications Piperacillin Sod/ Tazobactam Sod 100 ml @ 200 mls/hr Q8 IVPB Last administered on 04/15/17t 05:36; Admin Dose 200 MLS/HR; Start 04/13/17 at 23:30 Linezolid 300 ml @ 300 mls/hr Q12 IVPB Last administered on 04/15/17 09:02; Admin Dose 300 MLS/HR; Start 04/13/17 at 21:00 Sodium Chloride (NS) 1,000 ml @ 60 mls/hr [id number] IV Last administered on 04/13 22:24; Admin Dose 60 MLS/HR; Start 04/13/17 at 21:00 Diagnostic Test (Pha) (Accu-Chek) 1 ea 02 XX Last administered on 04/15/17 02: 00; Admin Dose 1 EA; Start 04/14/17 at 02:00 Insulin Aspart (Novolog Insulin Pen) NOVOLOG *MILD* ALGORI... Q4 SC Last administered on 04/14/17 22:38; Admin Dose 1 UNIT; Start 04/14/17 at 01:00 Miscellaneous Information 1 ea NOTE XX ; Start 04/13/17 at 21:30 Glucose (Glutose) 15 gm Q15M PRN PO DECREASED GLUCOSE; Start 04/13/17 at 21:30 Glucose (Glutose) 22.5 gm Q15M PRN PO DECREASED GLUCOSE; Start 04/13/17 at 21: 30 Dextrose (D50w Syringe) 25 ml Q15M PRN IV DECREASED GLUCOSE; Start 04/13/17 at 21:30 Dextrose (D50w Syringe) 50 ml Q15M PRN IV DECREASED GLUCOSE; Start 04/13/17 at 21:30 Glucagon (Glucagen) 1 mg Q15M PRN IM DECREASED GLUCOSE; Start 04/13/17 at 21:30 Glucose (Glutose) 15 gm Q15M PRN BUCCAL DECREASED GLUCOSE; Start 04/13/17 at 21 :30 Ondansetron HCl (Zofran Inj) 4 mg Q6 PRN IV NAUSEA AND/OR VOMITING; Start 04/13 at 21:30 Hydromorphone HCl (Dilaudid) 0.5 mg Q3 PRN IV PAIN LEVEL 7-10; Start 04/13/17 at 22:00 Acetaminophen (Tylenol Supp) 650 mg Q4H PRN [place] PAIN OR TEMP ABOVE 38C Last administered on 04/15/17 01:39; Admin Dose 650 MG; Start 04/13/17 at 22:00 Famotidine (Pepcid Iv) 20 mg BID IV Last administered on 04/15/17t 09:02; Admin Dose 20 MG; Start 04/15/17 at 09:00 LILIANA BARKSDALE Apr 15, 2017 13:51
--- NOTE | 2017-04-15 14:06 | RADRPT ---
PROCEDURE: CT guided liver abscess drainage. CLINICAL INDICATION: Liver abscess. TECHNIQUE: Informed consent was obtained. The procedure, risks, benefits, complications and alternatives were explained to the patient or the patient's family. Risks including bleeding and infection were explai alan. The patient or the patient's family understood and was willing to proceed. A procedural pause was performed. The patient's name, date of , and procedure to be performed were verified. One or more of the following dose reduction techniques were used: Automated exposure control, adjustmen t of the mA and/or kV according to patient size, use of iterative reconstruction technique. Using local anesthetic, sterile technique and CT guidance, a 19-gauge Yueh needle was advanced into the fluid collection in the liver. CT scan was performed confirming position. Purulent fluid was a lso aspirated confirming position. The needle from the Yueh catheter was removed, leaving the Yueh catheter in place within the fluid collection. A 0.035-inch Amplatz guidewire was advanced through the Yueh catheter into the fluid collection. The Yueh catheter was removed. The tract was dilated to 8-St Helenian. An 8.5 [place] Helenian multipurpose drainage catheter was advanced over the guidewire into the fluid collection. The guidewire was removed. Additional scanning was performed confirming position . The catheter was then sutured to the patient's skin with 2-0 silk. Approximately 412 ml of purul ent fluid was aspirated. The catheter was connected to a drainage bag. A dressing was applied. The patient tolerated procedure well. COMPARISON: None. FINDINGS: Final images demonstrate the drainage catheter in satisfactory position within the liver abscess. IMPRESSION: 1. Successful CT guided liver abscess drainage. RPTAT: QQ .Logan Decker MD, Date Time Electronically viewed and signed by .Logan Decker MD, MD on 04/15/2017 14:06 .R/
[2017-04-15] MEDS ORDERED: FENTAnyl 50 MCG/ML VIAL IV PRN ×3 (14:30)
--- NOTE | 2017-04-15 15:57 | CONS ---
Date/Time of Note Date/Time of Note DATE: 04/15/17 TIME: 15:54 Assessment/Plan Assessment/Plan Chief Complaint/Hosp Course 1. Severe Sepsis 2/2 to Liver abscess 2. Hx of rectal ca 3. multiple chronic medical problems R: cont. abx f/u cxs hiv / mrsa screen addl. testing based on results of above. Problems: Consultation Date/Type/Reason Admit Date/Time Apr 13, 2017 at 19:51 Date of Consultation: Apr 15, 2017 Hx of Present Illness Mrs. Lim is a 66 yo female with pmh of rectal ca, now admitted with fever, fatigue, malaise and ruq fluid collection. She underwent CT guided drainage. She is currently on broad spectrum abx. Cxs have been collected and are pending. patient unable to provide at this time Constitutional: requiring IVF Respiratory: no complaints Cardiovascular: no complaints Gastrointestinal: pain Genitourinary: no complaints Musculoskeletal: no complaints Skin: no complaints Neurologic: no complaints Psychological: no complaints Past Medical History Medical History: other (Colon cancer) Past Surgical History Past Surgical Hx: other (s/p surgery for colon CA ) Social History Alcohol Use: none Smoking Status: Never smoker Drug Use: none Exam/Review of Systems Vital Signs Vitals Vital Signs Date Time Temp Pulse Resp B/P Pulse Ox O2 Delivery O2 Flow Rate FiO2 04/15/17 15:00 92 21 97/58 95 Room Air 04/15/17 14:00 3.0 04/15/17 12:00 97.8 Intake and Output 04/14/17 04/14/17 04/15/17 15:00 23:00 07:00 Intake Total 690 ml 930 ml 480 ml Output Total 580 ml 650 ml 200 ml Balance 110 ml 280 ml 280 ml Exam Constitutional: alert, oriented Psych: confusion Head: atraumatic, normocephalic Eyes: EOMI, PERRL, nl conjunctiva, nl lids, nl sclera Respiratory: clear to auscultation, normal air movement Cardiovascular: nl pulses, regular rate and rhythm Gastrointestinal: nl liver, spleen, non-tender, soft Results Result Diagram: 04/15/17 0504 04/15/17 0504 Results 24 hrs Laboratory Tests Test 04/14/17 16:00 04/14/17 17:00 04/14/17 17:40 04/14/17 17:46 Activated Partial Thromboplast Time 29.1 HIV (1&2) Antibody NEGATIVE White Blood Count 15.6 H Red Blood Count 2.88 L Hemoglobin 9.0 L Hematocrit 25.8 L Mean Corpuscular Volume 89.6 Mean Corpuscular Hemoglobin 31.3 Mean Corpuscular Hemoglobin Concent 34.9 Red Cell Distribution Width 14.3 Platelet Count 324 # Mean Platelet Volume 8.3 # Neutrophils % 86.1 H Lymphocytes % 6.0 L Monocytes % 6.3 Eosinophils % 0.0 Basophils % 0.3 Nucleated Red Blood Cells % 0.0 Neutrophils # (Manual) 13.4 H Lymphocytes # 0.9 Monocytes # 1.0 H Eosinophils # 0.0 Basophils # 0.0 Nucleated Red Blood Cells # 0.0 Sodium Level 134 L Potassium Level 3.5 Chloride Level 102 Carbon Dioxide Level 26 Anion Gap 10 Blood Urea Nitrogen 12 Creatinine 0.58 Glucose Level 138 Calcium Level 8.2 L Bedside Glucose 140 Test 04/14/17 22:31 04/15/17 01:47 04/15/17 05:03 04/15/17 05:04 Bedside Glucose 150 131 132 White Blood Count 15.6 H Red Blood Count 2.61 L Hemoglobin 8.0 L Hematocrit 23.4 L Mean Corpuscular Volume 89.7 Mean Corpuscular Hemoglobin 30.7 Mean Corpuscular Hemoglobin Concent 34.2 Red Cell Distribution Width 14.7 H Platelet Count 287 Mean Platelet Volume 8.6 Neutrophils % 86.5 H Lymphocytes % 4.6 L Monocytes % 7.4 Eosinophils % 0.0 Basophils % 0.1 Nucleated Red Blood Cells % 0.0 Neutrophils # (Manual) 13.5 H Lymphocytes # 0.7 L Monocytes # 1.2 H Eosinophils # 0.0 Basophils # 0.0 Nucleated Red Blood Cells # 0.0 Activated Partial Thromboplast Time 31.3 Sodium Level 136 Potassium Level 3.2 L Chloride Level 108 Carbon Dioxide Level 24 Anion Gap 7 L Blood Urea Nitrogen 13 Creatinine 0.66 Glucose Level 119 Calcium Level 7.4 L Test 04/15/17 05:30 04/15/17 09:41 04/15/17 14:48 Lab Scanned Report BLOOD TRANSFUSION Bedside Glucose 124 122 Medications Medications Current Medications Piperacillin Sod/ Tazobactam Sod 100 ml @ 200 mls/hr Q8 IVPB Last administered on 04/15/17t 15:10; Admin Dose 200 MLS/HR; Start 04/13/17 at 23:30 Linezolid 300 ml @ 300 mls/hr Q12 IVPB Last administered on 04/15/17 09:02; Admin Dose 300 MLS/HR; Start 04/13/17 at 21:00 Sodium Chloride (NS) 1,000 ml @ 60 mls/hr [id number] IV Last administered on 04/13 22:24; Admin Dose 60 MLS/HR; Start 04/13/17 at 21:00 Diagnostic Test (Pha) (Accu-Chek) 1 ea 02 XX Last administered on 04/15/17 02: 00; Admin Dose 1 EA; Start 04/14/17 at 02:00 Insulin Aspart (Novolog Insulin Pen) NOVOLOG *MILD* ALGORI... Q4 SC Last administered on 04/14/17 22:38; Admin Dose 1 UNIT; Start 04/14/17 at 01:00 Miscellaneous Information 1 ea NOTE XX ; Start 04/13/17 at 21:30 Glucose (Glutose) 15 gm Q15M PRN PO DECREASED GLUCOSE; Start 04/13/17 at 21:30 Glucose (Glutose) 22.5 gm Q15M PRN PO DECREASED GLUCOSE; Start 04/13/17 at 21: 30 Dextrose (D50w Syringe) 25 ml Q15M PRN IV DECREASED GLUCOSE; Start 04/13/17 at 21:30 Dextrose (D50w Syringe) 50 ml Q15M PRN IV DECREASED GLUCOSE; Start 04/13/17 at 21:30 Glucagon (Glucagen) 1 mg Q15M PRN IM DECREASED GLUCOSE; Start 04/13/17 at 21:30 Glucose (Glutose) 15 gm Q15M PRN BUCCAL DECREASED GLUCOSE; Start 04/13/17 at 21 :30 Ondansetron HCl (Zofran Inj) 4 mg Q6 PRN IV NAUSEA AND/OR VOMITING; Start 04/13 at 21:30 Hydromorphone HCl (Dilaudid) 0.5 mg Q3 PRN IV PAIN LEVEL 7-10 Last administered on 04/15/17 14:57; Admin Dose 0.5 MG; Start 04/13/17 at 22:00 Acetaminophen (Tylenol Supp) 650 mg Q4H PRN [place] PAIN OR TEMP ABOVE 38C Last administered on 04/15/17 01:39; Admin Dose 650 MG; Start 04/13/17 at 22:00 Famotidine (Pepcid Iv) 20 mg BID IV Last administered on 04/15/17 09:02; Admin Dose 20 MG; Start 04/15/17 at 09:00 CHIOMA ROGERS MD Apr 15, 2017 15:57
[2017-04-15] MEDS ORDERED: GUAIFENESIN/DM 5ML CUP PO PRN (16:30)
[2017-04-15 18:32] LABS: ABNORMAL IP MESSAGE 1; HEMATOCRIT 37.3 % (37.0-47.0); HEMOGLOBIN 12.7 g/dl (12.0-16.0); MEAN CORPUSCULAR HEMOGLOBIN 30.8 pg (29.0-33.0); MEAN CORPUSCULAR VOLUME 90.3 fl (82.0-101.0); MEAN PLATELET VOLUME 9.1 fl (7.4-10.4); PLATELET COUNT 290 10^3/UL (140-415); RED BLOOD COUNT 4.13 10^6/ul (4.20-5.40); RED CELL DISTRIBUTION WIDTH 15.2 % (11.5-14.5); WHITE BLOOD COUNT 5.1 10^3/ul (4.8-10.8)
--- NOTE | 2017-04-15 18:34 | CONS ---
Date/Time of Note Date/Time of Note DATE: 04/15/17 TIME: 18:32 Assessment/Plan Assessment/Plan Chief Complaint/Hosp Course 65-year-old female well known to me from previous admission has history of rectal cancer, sp excision of rectal mass in 2016, low anterior resection of rectal cancer. The patient is admitted with c/o chest pain- none at present. The patient denies any chest pain and is breathing comfortably. No cough, no leg pain or leg edema. No report of any focal weaknes. pt is noted to have hyponatremia, and renal has been consulted for it Problems: Additional Assessment/Plan 1. Acute hyponatremia 2/2 Hypovolemic hyponatremia 2. sepsis due to liver abscess 3. Hepatic abscess oN CT scan 4. Acute transaminitis 5. h/o Colon CA s/p previous Surgery 6. Hypokalemia Plan : K replacement, continue IVF NS at 60 cc/hr monitor electrolytes and renal function watch for metabolic acidosis since pt has been getting iV zyvox will follow up Consultation Date/Type/Reason Admit Date/Time Apr 13, 2017 at 19:51 Initial Consult Date 04/13/17 Type of Consultation: NEPHROLOGY Referring Provider: DARREL BURT MD 24 HR Interval Summary Free Text/Dictation K low, no acute events Exam/Review of Systems Vital Signs Vitals Vital Signs Date Time Temp Pulse Resp B/P Pulse Ox O2 Delivery O2 Flow Rate FiO2 04/15/17 16:00 96 04/15/17 16:00 23 134/81 95 Room Air 04/15/17 14:00 3.0 04/15/17 12:00 97.8 Intake and Output 04/14/17 04/14/17 04/15/17 15:00 23:00 07:00 Intake Total 690 ml 930 ml 480 ml Output Total 580 ml 650 ml 200 ml Balance 110 ml 280 ml 280 ml Exam Constitutional: alert Psych: no complaints Head: normocephalic Eyes: nl conjunctiva ENMT: nl external ears & nose Neck: non-tender, supple Respiratory: clear to auscultation, normal air movement Cardiovascular: nl pulses, regular rate and rhythm Gastrointestinal: non-tender, soft Extremities: normal pulses 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: 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 II-XII intact, 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, nl speech, nl strength Results Result Diagram: 04/15/17 0504 04/15/17 0504 Results 24 hrs Laboratory Tests Test 04/14/17 22:31 04/15/17 01:47 04/15/17 05:03 04/15/17 05:04 Bedside Glucose 150 131 132 White Blood Count 15.6 H Red Blood Count 2.61 L Hemoglobin 8.0 L Hematocrit 23.4 L Mean Corpuscular Volume 89.7 Mean Corpuscular Hemoglobin 30.7 Mean Corpuscular Hemoglobin Concent 34.2 Red Cell Distribution Width 14.7 H Platelet Count 287 Mean Platelet Volume 8.6 Neutrophils % 86.5 H Lymphocytes % 4.6 L Monocytes % 7.4 Eosinophils % 0.0 Basophils % 0.1 Nucleated Red Blood Cells % 0.0 Neutrophils # (Manual) 13.5 H Lymphocytes # 0.7 L Monocytes # 1.2 H Eosinophils # 0.0 Basophils # 0.0 Nucleated Red Blood Cells # 0.0 Activated Partial Thromboplast Time 31.3 Sodium Level 136 Potassium Level 3.2 L Chloride Level 108 Carbon Dioxide Level 24 Anion Gap 7 L Blood Urea Nitrogen 13 Creatinine 0.66 Glucose Level 119 Calcium Level 7.4 L Test 04/15/17 05:30 04/15/17 08:08 04/15/17 09:41 04/15/17 14:48 Lab Scanned Report BLOOD TRANSFUSION HIV (1&2) Antibody NEGATIVE Bedside Glucose 124 122 Test 04/15/17 18:00 04/15/17 18:01 White Blood Count Pending Red Blood Count Pending Hemoglobin Pending Hematocrit Pending Mean Corpuscular Volume Pending Mean Corpuscular Hemoglobin Pending Mean Corpuscular Hemoglobin Concent Pending Red Cell Distribution Width Pending Platelet Count Pending Mean Platelet Volume Pending Bedside Glucose 113 Medications Medications Current Medications Piperacillin Sod/ Tazobactam Sod 100 ml @ 200 mls/hr Q8 IVPB Last administered on 04/15/17 15:10; Admin Dose 200 MLS/HR; Start 04/13/17 at 23:30 Linezolid 300 ml @ 300 mls/hr Q12 IVPB Last administered on 04/15/17 09:02; Admin Dose 300 MLS/HR; Start 04/13/17 at 21:00 Sodium Chloride (NS) 1,000 ml @ 60 mls/hr [id number] IV Last administered on 9/11 /17at 22:24; Admin Dose 60 MLS/HR; Start 04/13/17 at 21:00 Diagnostic Test (Pha) (Accu-Chek) 1 ea 02 XX Last administered on 04/15/17 02: 00; Admin Dose 1 EA; Start 04/14/17 at 02:00 Insulin Aspart (Novolog Insulin Pen) NOVOLOG *MILD* ALGORI... Q4 SC Last administered on 04/14/17 22:38; Admin Dose 1 UNIT; Start 04/14/17 at 01:00 Miscellaneous Information 1 ea NOTE XX ; Start 04/13/17 at 21:30 Glucose (Glutose) 15 gm Q15M PRN PO DECREASED GLUCOSE; Start 04/13/17 at 21:30 Glucose (Glutose) 22.5 gm Q15M PRN PO DECREASED GLUCOSE; Start 04/13/17 at 21: 30 Dextrose (D50w Syringe) 25 ml Q15M PRN IV DECREASED GLUCOSE; Start 04/13/17 at 21:30 Dextrose (D50w Syringe) 50 ml Q15M PRN IV DECREASED GLUCOSE; Start 04/13/17 at 21:30 Glucagon (Glucagen) 1 mg Q15M PRN IM DECREASED GLUCOSE; Start 04/13/17 at 21:30 Glucose (Glutose) 15 gm Q15M PRN BUCCAL DECREASED GLUCOSE; Start 04/13/17 at 21 :30 Ondansetron HCl (Zofran Inj) 4 mg Q6 PRN IV NAUSEA AND/OR VOMITING; Start 04/13 at 21:30 Hydromorphone HCl (Dilaudid) 0.5 mg Q3 PRN IV PAIN LEVEL 7-10 Last administered on 04/15/17 14:57; Admin Dose 0.5 MG; Start 04/13/17 at 22:00 Acetaminophen (Tylenol Supp) 650 mg Q4H PRN [place] PAIN OR TEMP ABOVE 38C Last administered on 04/15/17 01:39; Admin Dose 650 MG; Start 04/13/17 at 22:00 Famotidine (Pepcid Iv) 20 mg BID IV Last administered on 04/15/17 09:02; Admin Dose 20 MG; Start 04/15/17 at 09:00 Guaifenesin/ Dextromethorphan (Robitussin Dm Liquid Cup) 5 ml Q4H PRN PO COUGH ; Start 04/15/17 at 16:30 NGOC GARZA MD Apr 15, 2017 18:34
[2017-04-15 18:38] LABS: POSITIVE DIFF @See below
[2017-04-15 19:03] LABS: CREATININE 0.47 mg/dl (0.44-1.00); POTASSIUM 4.4 mmol/L (3.5-5.1)
--- NOTE | 2017-04-15 22:03 | PN ---
DATE: 04/15/2017 SUBJECTIVE DATA: She is slightly better. No specific complaint. Mild pain. Is today status post percutaneous drainage of the liver abscess, CT scan-guided, which was done a few hours ago and apparently they drained 412 cc of purulent material. OBJECTIVE DATA: GENERAL: Patient is awake, alert, oriented x3. VITAL SIGNS: Temperature 97.8, heart rate 84-82, regular, respirations 21-19, blood pressure 97/58 and also 105/63, saturation 95 percent on room air. ABDOMEN: Soft. There is a suprapubic ventral incisional hernia. The pigtail drain and the drainage bag apparatus is in place and is not leaking, is working and since coming from the radiology department, this has drained 200 cc of fluid, which is brownish liquid, turbid in appearance. Urine output is adequate. LABORATORY AND DIAGNOSTIC DATA: WBC 15,600 with 86 percent segmented, no bands today. Hemoglobin 8, hematocrit 23.4. Chemistry: BUN/creatinine normal. Sodium 136, potassium 3.2. Calcium 7.4. ASSESSMENT AND PLAN: A 66-year-old female presented with signs and symptoms of infection in the body, and they found that there was a huge liver abscess, possibly multiloculated, requested for percutaneous drainage of the liver abscess, which was done today by Dr. Decker. According to Dr. Decker's notes, 412 cc of purulent material was drained, which hopefully they have sent for culture and other tests. Patient is back in ICU, and the pigtail drain and accordion bag is functioning properly. Patient does not appear septic, except that the leukocyte count still is up at 15,000. Patient is hungry, and we are going to start patient on full liquid diet. Dictated By: Osmani Ceballos MD /rachel/skyler /Document#: [id number]
[2017-04-16] VITALS (24 sets, daily range): BP systolic 82–119; BP diastolic 47–75; PULSE 84–101; RESP 12–36
[2017-04-16] MEDS: ACCU-CHEK XX SCH (03:00)
[2017-04-16] MEDS: INSULIN ASPART [NOVOLOG] 3 ML PEN SC SCH ×2 (03:24→06:21)
[2017-04-16] MEDS: PIPER-TAZO 3.375 GM IV (PMX) 100 ML IVPB SCH ×3 (05:18→21:44)
[2017-04-16 05:21] LABS: ABNORMAL IP MESSAGE 1; BASOPHILS % 0.3 % (0.0-2.0); HEMATOCRIT 30.7 % (37.0-47.0); HEMOGLOBIN 10.2 g/dl (12.0-16.0); LYMPHOCYTES # 0.8 10^3/ul (0.8-2.9); LYMPHOCYTES % 8.4 % (15.0-51.0); MEAN CORPUSCULAR HEMOGLOBIN 29.4 pg (29.0-33.0); MEAN CORPUSCULAR HGB CONC 33.2 g/dl (32.0-37.0); MEAN CORPUSCULAR VOLUME 88.5 fl (82.0-101.0); MEAN PLATELET VOLUME 8.3 fl (7.4-10.4); MONOCYTE # 0.4 10^3/ul (0.3-0.9); MONOCYTES % 3.9 % (0.0-11.0); NEUTROPHIL # 7.7 10^3/ul (1.6-7.5); NEUTROPHILS % 86.6 % (39.0-77.0); PLATELET COUNT 223 10^3/UL (140-415); RED BLOOD COUNT 3.47 10^6/ul (4.20-5.40); RED CELL DISTRIBUTION WIDTH 14.4 % (11.5-14.5); WHITE BLOOD COUNT 8.9 10^3/ul (4.8-10.8)
[2017-04-16 05:42] LABS: POSITIVE DIFF @See below
[2017-04-16] MEDS ORDERED: INSULIN ASPART [NOVOLOG] 3 ML PEN SC SCH (07:21)
[2017-04-16] MEDS: Insulin NOVOLOG SS MILD Algorithm (SS with meals and bedtime) SC SCH ×4 (07:35→21:00)
[2017-04-16] MEDS: LINEZOLID 600 MG/D5W (PMX) 300 ML IVPB SCH ×2 (08:51→21:44)
[2017-04-16] MEDS: FAMOTIDINE 20 MG INJ IV SCH (08:51)
[2017-04-16] MEDS: SOD CHLORIDE 0.9% 1,000 ML IV SCH (08:51)
--- NOTE | 2017-04-16 11:07 | CONS ---
Date/Time of Note Date/Time of Note DATE: 04/16/17 TIME: 10:48 Assessment/Plan Assessment/Plan Chief Complaint/Hosp Course - Severe sepsis 2/2 to liver abscess - improving - Liver abscess s/p CT guided drainage 04/15/2017 - Hypotension - improved with IVF - Normocytic anemia requiring blood transfusion - Coagulopathy - improved - Transaminitis - slowly improving - Hyponatremia on admission - resolved - CoNS in urine culture with trivial pyuria, likely contaminant; pt asymptomatic - Hx of rectal CA s/p Low anterior resection 08/29/2016 Recommendations: - continue linezolid and pip/tazo (04/13/2017-); will adjust antibiotics based on wound culture results - pending: CT guided drainage C&S Management d/w patient, RN Hoda, and Dr. Diana Critical care time spent: 35 min Problems: Consultation Date/Type/Reason Admit Date/Time Apr 13, 2017 at 19:51 Initial Consult Date 04/15/17 Type of Consultation: Infectious Disease Referring Provider: DARREL BURT MD 24 HR Interval Summary Free Text/Dictation No acute events overnight, BP low at times but pt is asymptomatic and on IVF; consumed >50% of Full liquid diet per d/w nursing staff. Pt c/o severe R sided abdominal pain with movement or deep inspiration, otherwise pain is tolerable. Denies CP, SOB, n/v/d, dysuria. Exam/Review of Systems Vital Signs Vitals Vital Signs Date Time Temp Pulse Resp B/P Pulse Ox O2 Delivery O2 Flow Rate FiO2 04/16/17 08:00 84 04/16/17 06:00 24 83/50 94 04/16/17 04:00 98.4 04/15/17 20:07 Nasal Cannula 3.0 Intake and Output 04/15/17 04/15/17 04/16/17 15:00 23:00 07:00 Intake Total 725.0 ml 742.5 ml 1620 ml Output Total 590 ml 685 ml 215 ml Balance 135.0 ml 57.5 ml 1405 ml Exam Constitutional: alert, oriented, other (thin), well developed Psych: nl mood/affect Head: atraumatic, normocephalic Eyes: nl conjunctiva, nl lids ENMT: mucosa pink and moist, nl lips & teeth Neck: supple Respiratory: clear to auscultation, normal air movement Cardiovascular: nl pulses, regular rate and rhythm Gastrointestinal: bowel sounds, other (External drainage catheter connected to accordian bag with light brownish output), soft, surgical scars (low ML scar well healed), tender (mild TTP to LLQ and near R external drainage catheter inerstion site) Genitourinary - Female: other (Khan catheter present) Musculoskeletal: nl extremities to inspection Extremities: normal pulses 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: 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, nl speech ([place] speaking) Skin: nl turgor, No rash or lesions Results Result Diagram: 04/16/17 0454 04/15/17 1800 Results 24 hrs Laboratory Tests Test 04/15/17 14:48 04/15/17 18:00 04/15/17 18:01 04/15/17 20:45 Bedside Glucose 122 113 176 White Blood Count 5.1 # Red Blood Count 4.13 #L Hemoglobin 12.7 # Hematocrit 37.3 # Mean Corpuscular Volume 90.3 Mean Corpuscular Hemoglobin 30.8 Mean Corpuscular Hemoglobin Concent 34.0 Red Cell Distribution Width 15.2 H Platelet Count 290 Mean Platelet Volume 9.1 Neutrophils % Eosinophils % Nucleated Red Blood Cells % 0.0 Neutrophils # Eosinophils # Sodium Level 137 Potassium Level 4.4 Chloride Level 110 Carbon Dioxide Level 20 L Anion Gap 11 Blood Urea Nitrogen 13 Creatinine 0.47 Glucose Level 130 Calcium Level 8.0 L Test 04/16/17 03:07 04/16/17 04:54 04/16/17 05:24 04/16/17 05:25 Bedside Glucose 161 157 White Blood Count 8.9 # Red Blood Count 3.47 L Hemoglobin 10.2 L Hematocrit 30.7 L Mean Corpuscular Volume 88.5 Mean Corpuscular Hemoglobin 29.4 Mean Corpuscular Hemoglobin Concent 33.2 Red Cell Distribution Width 14.4 Platelet Count 223 # Mean Platelet Volume 8.3 Neutrophils % 86.6 H Lymphocytes % 8.4 L Monocytes % 3.9 Eosinophils % 0.0 Basophils % 0.3 Nucleated Red Blood Cells % 0.0 Neutrophils # 7.7 H Lymphocytes # 0.8 Monocytes # 0.4 Eosinophils # 0.0 Basophils # 0.0 Nucleated Red Blood Cells # 0.0 Troponin I < 0.012 Lab Scanned Report BLOOD TRANSFUSION Test 04/16/17 08:19 Bedside Glucose 116 Medications Medications Current Medications Piperacillin Sod/ Tazobactam Sod 100 ml @ 200 mls/hr Q8 IVPB Last administered on 04/16/17 05:18; Admin Dose 200 MLS/HR; Start 04/13/17 at 23:30 Linezolid 300 ml @ 300 mls/hr Q12 IVPB Last administered on 04/16/17 08:51; Admin Dose 300 MLS/HR; Start 04/13/17 at 21:00 Sodium Chloride (NS) 1,000 ml @ 60 mls/hr [id number] IV Last administered on 04/16 08:51; Admin Dose 60 MLS/HR; Start 04/13/17 at 21:00 Diagnostic Test (Pha) (Accu-Chek) 1 ea 02 XX Last administered on 04/15/17 02: 00; Admin Dose 1 EA; Start 04/14/17 at 02:00 Miscellaneous Information 1 ea NOTE XX ; Start 04/13/17 at 21:30 Glucose (Glutose) 15 gm Q15M PRN PO DECREASED GLUCOSE; Start 04/13/17 at 21:30 Glucose (Glutose) 22.5 gm Q15M PRN PO DECREASED GLUCOSE; Start 04/13/17 at 21: 30 Dextrose (D50w Syringe) 25 ml Q15M PRN IV DECREASED GLUCOSE; Start 04/13/17 at 21:30 Dextrose (D50w Syringe) 50 ml Q15M PRN IV DECREASED GLUCOSE; Start 04/13/17 at 21:30 Glucagon (Glucagen) 1 mg Q15M PRN IM DECREASED GLUCOSE; Start 04/13/17 at 21:30 Glucose (Glutose) 15 gm Q15M PRN BUCCAL DECREASED GLUCOSE; Start 04/13/17 at 21 :30 Ondansetron HCl (Zofran Inj) 4 mg Q6 PRN IV NAUSEA AND/OR VOMITING; Start 04/13 at 21:30 Hydromorphone HCl (Dilaudid) 0.5 mg Q3 PRN IV PAIN LEVEL 7-10 Last administered on 04/15/17 14:57; Admin Dose 0.5 MG; Start 04/13/17 at 22:00 Acetaminophen (Tylenol Supp) 650 mg Q4H PRN [place] PAIN OR TEMP ABOVE 38C Last administered on 04/15/17 01:39; Admin Dose 650 MG; Start 04/13/17 at 22:00 Famotidine (Pepcid Iv) 20 mg BID IV Last administered on 04/16/17 08:51; Admin Dose 20 MG; Start 04/15/17 at 09:00 Guaifenesin/ Dextromethorphan (Robitussin Dm Liquid Cup) 5 ml Q4H PRN PO COUGH ; Start 04/15/17 at 16:30 HOWARD THOMAS NP Apr 16, 2017 11:00
--- NOTE | 2017-04-16 11:13 | PN ---
Date/Time of Note Date/Time of Note DATE: 04/16/17 TIME: 11:11 Assessment/Plan Lines/Catheters IV Catheter Type (from Nrs): Saline Lock Urinary Cath still in place: No Assessment/Plan Assessment/Plan - Hepatic abscess-12.4 x 9.2 x 11.1 cm,per CT. SP drainage of Abcess- 04/14. Surgical drain noted. - GI consult- Dr English - per Surgery consult - Hypotension- improved - icu monitoring - cont to monitor - Anemia - sp 1 UNIT PRBC - monitor CBC am - Chest pain-none at present - Cardiology consult- Dr Hendrickson - Sepsis - ID consult- Dr Diana - On Zosyn, Zyvox - Hepatic abscess-12.4 x 9.2 x 11.1 cm,per CT - GI consult- Dr English notified - Surgery consult-notified by Dr Rene - Transaminitis - NPO, IVF - per GI -Coagulopathy- Monitor labs - Hyponatremia Na 129 - Nephro consult- Dr Ruel Espino notified - IVF- NS at 60 cc/hr - Pre DM - Glycemic control - Dietary consult - Cachexia - Dietary consult - Hx Rectal cancer status post low anterior resection. PLAN: - IVF SCD for DVT prophylaxis. Total critical care time spent- 30 mins Further recommendation will depend on hospital course. Dw Dr Dior Subjective 24 Hr Interval Summary Free Text/Dictation Late Entry- Constitutional: improved, requiring IVF, requiring O2 Respiratory: no complaints Gastrointestinal: pain Genitourinary: no complaints Musculoskeletal: no complaints Exam/Review of Systems Vital Signs Vitals Vital Signs Date Time Temp Pulse Resp B/P Pulse Ox O2 Delivery O2 Flow Rate FiO2 04/16/17 08:00 84 04/16/17 06:00 24 83/50 94 04/16/17 04:00 98.4 04/15/17 20:07 Nasal Cannula 3.0 Intake and Output 04/15/17 04/15/17 04/16/17 15:00 23:00 07:00 Intake Total 725.0 ml 742.5 ml 1620 ml Output Total 590 ml 685 ml 215 ml Balance 135.0 ml 57.5 ml 1405 ml Exam Constitutional: alert, oriented Respiratory: clear to auscultation, diminished breath sounds Cardiovascular: nl pulses, regular rate and rhythm Gastrointestinal: other, soft Musculoskeletal: nl extremities to inspection Extremities: normal pulses 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: 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, nl speech Results Result Diagram: 04/16/17 0454 04/15/17 1800 Results 24 hrs Laboratory Tests Test 04/15/17 14:48 04/15/17 18:00 04/15/17 18:01 04/15/17 20:45 Bedside Glucose 122 113 176 White Blood Count 5.1 # Red Blood Count 4.13 #L Hemoglobin 12.7 # Hematocrit 37.3 # Mean Corpuscular Volume 90.3 Mean Corpuscular Hemoglobin 30.8 Mean Corpuscular Hemoglobin Concent 34.0 Red Cell Distribution Width 15.2 H Platelet Count 290 Mean Platelet Volume 9.1 Neutrophils % Eosinophils % Nucleated Red Blood Cells % 0.0 Neutrophils # Eosinophils # Sodium Level 137 Potassium Level 4.4 Chloride Level 110 Carbon Dioxide Level 20 L Anion Gap 11 Blood Urea Nitrogen 13 Creatinine 0.47 Glucose Level 130 Calcium Level 8.0 L Test 04/16/17 03:07 04/16/17 04:54 04/16/17 05:24 04/16/17 05:25 Bedside Glucose 161 157 White Blood Count 8.9 # Red Blood Count 3.47 L Hemoglobin 10.2 L Hematocrit 30.7 L Mean Corpuscular Volume 88.5 Mean Corpuscular Hemoglobin 29.4 Mean Corpuscular Hemoglobin Concent 33.2 Red Cell Distribution Width 14.4 Platelet Count 223 # Mean Platelet Volume 8.3 Neutrophils % 86.6 H Lymphocytes % 8.4 L Monocytes % 3.9 Eosinophils % 0.0 Basophils % 0.3 Nucleated Red Blood Cells % 0.0 Neutrophils # 7.7 H Lymphocytes # 0.8 Monocytes # 0.4 Eosinophils # 0.0 Basophils # 0.0 Nucleated Red Blood Cells # 0.0 Troponin I < 0.012 Lab Scanned Report BLOOD TRANSFUSION Test 04/16/17 08:19 Bedside Glucose 116 Medications Medications Current Medications Piperacillin Sod/ Tazobactam Sod 100 ml @ 200 mls/hr Q8 IVPB Last administered on 04/16/17 05:18; Admin Dose 200 MLS/HR; Start 04/13/17 at 23:30 Linezolid 300 ml @ 300 mls/hr Q12 IVPB Last administered on 04/16/17 08:51; Admin Dose 300 MLS/HR; Start 04/13/17 at 21:00 Sodium Chloride (NS) 1,000 ml @ 60 mls/hr [id number] IV Last administered on 04/16 08:51; Admin Dose 60 MLS/HR; Start 04/13/17 at 21:00 Diagnostic Test (Pha) (Accu-Chek) 1 ea 02 XX Last administered on 04/15/17 02: 00; Admin Dose 1 EA; Start 04/14/17 at 02:00 Miscellaneous Information 1 ea NOTE XX ; Start 04/13/17 at 21:30 Glucose (Glutose) 15 gm Q15M PRN PO DECREASED GLUCOSE; Start 04/13/17 at 21:30 Glucose (Glutose) 22.5 gm Q15M PRN PO DECREASED GLUCOSE; Start 04/13/17 at 21: 30 Dextrose (D50w Syringe) 25 ml Q15M PRN IV DECREASED GLUCOSE; Start 04/13/17 at 21:30 Dextrose (D50w Syringe) 50 ml Q15M PRN IV DECREASED GLUCOSE; Start 04/13/17 at 21:30 Glucagon (Glucagen) 1 mg Q15M PRN IM DECREASED GLUCOSE; Start 04/13/17 at 21:30 Glucose (Glutose) 15 gm Q15M PRN BUCCAL DECREASED GLUCOSE; Start 04/13/17 at 21 :30 Ondansetron HCl (Zofran Inj) 4 mg Q6 PRN IV NAUSEA AND/OR VOMITING; Start 04/13 at 21:30 Hydromorphone HCl (Dilaudid) 0.5 mg Q3 PRN IV PAIN LEVEL 7-10 Last administered on 04/15/17 14:57; Admin Dose 0.5 MG; Start 04/13/17 at 22:00 Acetaminophen (Tylenol Supp) 650 mg Q4H PRN [place] PAIN OR TEMP ABOVE 38C Last administered on 04/15/17 01:39; Admin Dose 650 MG; Start 04/13/17 at 22:00 Famotidine (Pepcid Iv) 20 mg BID IV Last administered on 04/16/17 08:51; Admin Dose 20 MG; Start 04/15/17 at 09:00 Guaifenesin/ Dextromethorphan (Robitussin Dm Liquid Cup) 5 ml Q4H PRN PO COUGH ; Start 04/15/17 at 16:30 MESHA VELASQUEZ Apr 16, 2017 11:13
--- NOTE | 2017-04-16 11:14 | RADRPT ---
Vent Rate: 92 bpm RR Interval: 0 msec MN Interval: 164 msec QRS Duration: 82 msec QT Interval: 364 msec QTC Interval: 450 msec P-R-T Sibley: 46 - 58 - 49 degrees Normal sinus rhythm Normal ECG Electronically Signed By: Don Sharma [id number]
--- NOTE | 2017-04-16 11:15 | PN ---
Date/Time of Note Date/Time of Note DATE: 04/16/17 TIME: 11:13 Assessment/Plan Lines/Catheters IV Catheter Type (from Nrs): Saline Lock Urinary Cath still in place: No Assessment/Plan Assessment/Plan - - Hepatic abscess-12.4 x 9.2 x 11.1 cm,per CT. SP drainage of Abcess- 04/14. Surgical drain noted. - GI consult- Dr English - per Surgery consult -- Hypotension - NS 500CC X1 Bolus , cont to monitor - Anemia - sp 1 UNIT PRBC - monitor CBC am - Chest pain-none at present - admit to Tele - Cardiology consult- Dr Hendrickson notified - Sepsis - ID consult- Dr Diana notified - On Zosyn, Zyvox - Transaminitis - NPO, IVF - per GI -Coagulopathy- Monitor labs - Hyponatremia Na 129 - Nephro consult- Dr Ruel Espino notified - IVF- NS at 60 cc/hr - Pre DM - Glycemic control - Dietary consult - Cachexia - Dietary consult - Hx Rectal cancer status post low anterior resection. PLAN: - IVF SCD for DVT prophylaxis. Total critical care time spent- 30 mins Further recommendation will depend on hospital course. Catrachito Dior Subjective 24 Hr Interval Summary Constitutional: improved, requiring IVF Respiratory: cough, no complaints Gastrointestinal: pain Genitourinary: no complaints Musculoskeletal: no complaints Exam/Review of Systems Vital Signs Vitals Vital Signs Date Time Temp Pulse Resp B/P Pulse Ox O2 Delivery O2 Flow Rate FiO2 04/16/17 08:00 84 04/16/17 06:00 24 83/50 94 04/16/17 04:00 98.4 04/15/17 20:07 Nasal Cannula 3.0 Intake and Output 04/15/17 04/15/17 04/16/17 15:00 23:00 07:00 Intake Total 725.0 ml 742.5 ml 1620 ml Output Total 590 ml 685 ml 215 ml Balance 135.0 ml 57.5 ml 1405 ml Exam Constitutional: alert, oriented Respiratory: clear to auscultation, normal air movement Cardiovascular: nl pulses, regular rate and rhythm Gastrointestinal: soft Musculoskeletal: nl extremities to inspection Extremities: normal pulses 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: 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, nl speech Results Result Diagram: 04/16/17 0454 04/15/17 1800 Results 24 hrs Laboratory Tests Test 04/15/17 14:48 04/15/17 18:00 04/15/17 18:01 04/15/17 20:45 Bedside Glucose 122 113 176 White Blood Count 5.1 # Red Blood Count 4.13 #L Hemoglobin 12.7 # Hematocrit 37.3 # Mean Corpuscular Volume 90.3 Mean Corpuscular Hemoglobin 30.8 Mean Corpuscular Hemoglobin Concent 34.0 Red Cell Distribution Width 15.2 H Platelet Count 290 Mean Platelet Volume 9.1 Neutrophils % Eosinophils % Nucleated Red Blood Cells % 0.0 Neutrophils # Eosinophils # Sodium Level 137 Potassium Level 4.4 Chloride Level 110 Carbon Dioxide Level 20 L Anion Gap 11 Blood Urea Nitrogen 13 Creatinine 0.47 Glucose Level 130 Calcium Level 8.0 L Test 04/16/17 03:07 04/16/17 04:54 04/16/17 05:24 04/16/17 05:25 Bedside Glucose 161 157 White Blood Count 8.9 # Red Blood Count 3.47 L Hemoglobin 10.2 L Hematocrit 30.7 L Mean Corpuscular Volume 88.5 Mean Corpuscular Hemoglobin 29.4 Mean Corpuscular Hemoglobin Concent 33.2 Red Cell Distribution Width 14.4 Platelet Count 223 # Mean Platelet Volume 8.3 Neutrophils % 86.6 H Lymphocytes % 8.4 L Monocytes % 3.9 Eosinophils % 0.0 Basophils % 0.3 Nucleated Red Blood Cells % 0.0 Neutrophils # 7.7 H Lymphocytes # 0.8 Monocytes # 0.4 Eosinophils # 0.0 Basophils # 0.0 Nucleated Red Blood Cells # 0.0 Troponin I < 0.012 Lab Scanned Report BLOOD TRANSFUSION Test 04/16/17 08:19 Bedside Glucose 116 Medications Medications Current Medications Piperacillin Sod/ Tazobactam Sod 100 ml @ 200 mls/hr Q8 IVPB Last administered on 04/16/17 05:18; Admin Dose 200 MLS/HR; Start 04/13/17 at 23:30 Linezolid 300 ml @ 300 mls/hr Q12 IVPB Last administered on 04/16/17 08:51; Admin Dose 300 MLS/HR; Start 04/13/17 at 21:00 Sodium Chloride (NS) 1,000 ml @ 60 mls/hr [id number] IV Last administered on 04/16 08:51; Admin Dose 60 MLS/HR; Start 04/13/17 at 21:00 Diagnostic Test (Pha) (Accu-Chek) 1 ea 02 XX Last administered on 04/15/17 02: 00; Admin Dose 1 EA; Start 04/14/17 at 02:00 Miscellaneous Information 1 ea NOTE XX ; Start 04/13/17 at 21:30 Glucose (Glutose) 15 gm Q15M PRN PO DECREASED GLUCOSE; Start 04/13/17 at 21:30 Glucose (Glutose) 22.5 gm Q15M PRN PO DECREASED GLUCOSE; Start 04/13/17 at 21: 30 Dextrose (D50w Syringe) 25 ml Q15M PRN IV DECREASED GLUCOSE; Start 04/13/17 at 21:30 Dextrose (D50w Syringe) 50 ml Q15M PRN IV DECREASED GLUCOSE; Start 04/13/17 at 21:30 Glucagon (Glucagen) 1 mg Q15M PRN IM DECREASED GLUCOSE; Start 04/13/17 at 21:30 Glucose (Glutose) 15 gm Q15M PRN BUCCAL DECREASED GLUCOSE; Start 04/13/17 at 21 :30 Ondansetron HCl (Zofran Inj) 4 mg Q6 PRN IV NAUSEA AND/OR VOMITING; Start 04/13 at 21:30 Hydromorphone HCl (Dilaudid) 0.5 mg Q3 PRN IV PAIN LEVEL 7-10 Last administered on 04/15/17 14:57; Admin Dose 0.5 MG; Start 04/13/17 at 22:00 Acetaminophen (Tylenol Supp) 650 mg Q4H PRN [place] PAIN OR TEMP ABOVE 38C Last administered on 04/15/17 01:39; Admin Dose 650 MG; Start 04/13/17 at 22:00 Famotidine (Pepcid Iv) 20 mg BID IV Last administered on 04/16/17 08:51; Admin Dose 20 MG; Start 04/15/17 at 09:00 Guaifenesin/ Dextromethorphan (Robitussin Dm Liquid Cup) 5 ml Q4H PRN PO COUGH ; Start 04/15/17 at 16:30 MESHA VELASQUEZ Apr 16, 2017 11:15
--- NOTE | 2017-04-16 12:30 | PN ---
Date/Time of Note Date/Time of Note DATE: 04/16/17 TIME: 12:20 Assessment/Plan VTE Prophylaxis VTE Prophylaxis Intervention: SCD's Lines/Catheters [facility] Saline Lock Urinary Cath still in place: Yes Reason Cath still needed: other (indicate) (Monitoring urine output because of sepsis and low blood pressure.) Assessment/Plan Assessment/Plan 66 years old female admitted because of the liver abscess percutaneous drainage of liver abscess was done yesterday through the radiology department. All cultures so far is negative. Patient on IV fluid and antibiotics is fully alert awake and oriented. Continue antibiotics per recommendation of infectious disease. Awaiting the results of the blood culture and aspiration culture from the abscess cavity. Blood pressure on low side but usually below 100 but perfusion is adequate. From surgical point of view patient can be transferred out of ICU. We will follow the patient daily, will repeat the CT scan of the abdomen to evaluate if the Abscess Cavity Is Completely Empty or Not. Subjective 24 Hr Interval Summary Free Text/Dictation No new complaint. No new events overnight. She on no vomiting, no bowel movement today but passing gas. Cutaneous drainage of the liver abscess was done yesterday. Exam/Review of Systems Vital Signs Vitals Vital Signs Date Time Temp Pulse Resp B/P Pulse Ox O2 Delivery O2 Flow Rate FiO2 04/16/17 11:00 88 22 97/57 95 Nasal Cannula 4.0 04/16/17 08:00 98.0 Intake and Output 04/15/17 04/15/17 04/16/17 15:00 23:00 07:00 Intake Total 725.0 ml 742.5 ml 1620 ml Output Total 590 ml 685 ml 215 ml Balance 135.0 ml 57.5 ml 1405 ml Exam Postop day #1 percutaneous drainage of liver abscess. Vital signs stable. Temperature 98. Heart rate 88. Respiration 22. Blood pressure 97/57. Saturation 95% on 4 L of nasal cannula. wbc dropped to 8900 with 86% segmented no bands. Hemoglobin 10.2 hematocrit 30.7. Drainage from pigtail drain through the accardion bag 300 cc past 24 hours. Since 7 AM to now which is 12:00 and 5 hours is 150 cc of drainage which is light brownish in color. All cultures so far is negative. Patient on Zosyn and linezolid antibiotics Abdomen is soft. Khan catheter in place for monitoring urine output. Results Result Diagram: 04/16/17 0454 04/15/17 1800 Results 24 hrs Laboratory Tests Test 04/15/17 14:48 04/15/17 18:00 04/15/17 18:01 04/15/17 20:45 Bedside Glucose 122 113 176 White Blood Count 5.1 # Red Blood Count 4.13 #L Hemoglobin 12.7 # Hematocrit 37.3 # Mean Corpuscular Volume 90.3 Mean Corpuscular Hemoglobin 30.8 Mean Corpuscular Hemoglobin Concent 34.0 Red Cell Distribution Width 15.2 H Platelet Count 290 Mean Platelet Volume 9.1 Neutrophils % Eosinophils % Nucleated Red Blood Cells % 0.0 Neutrophils # Eosinophils # Sodium Level 137 Potassium Level 4.4 Chloride Level 110 Carbon Dioxide Level 20 L Anion Gap 11 Blood Urea Nitrogen 13 Creatinine 0.47 Glucose Level 130 Calcium Level 8.0 L Test 04/16/17 03:07 04/16/17 04:54 04/16/17 05:24 04/16/17 05:25 Bedside Glucose 161 157 White Blood Count 8.9 # Red Blood Count 3.47 L Hemoglobin 10.2 L Hematocrit 30.7 L Mean Corpuscular Volume 88.5 Mean Corpuscular Hemoglobin 29.4 Mean Corpuscular Hemoglobin Concent 33.2 Red Cell Distribution Width 14.4 Platelet Count 223 # Mean Platelet Volume 8.3 Neutrophils % 86.6 H Lymphocytes % 8.4 L Monocytes % 3.9 Eosinophils % 0.0 Basophils % 0.3 Nucleated Red Blood Cells % 0.0 Neutrophils # 7.7 H Lymphocytes # 0.8 Monocytes # 0.4 Eosinophils # 0.0 Basophils # 0.0 Nucleated Red Blood Cells # 0.0 Troponin I < 0.012 Lab Scanned Report BLOOD TRANSFUSION Test 04/16/17 08:19 04/16/17 11:52 Bedside Glucose 116 164 Medications Medications Current Medications Piperacillin Sod/ Tazobactam Sod 100 ml @ 200 mls/hr Q8 IVPB Last administered on 04/16/17 05:18; Admin Dose 200 MLS/HR; Start 04/13/17 at 23:30 Linezolid 300 ml @ 300 mls/hr Q12 IVPB Last administered on 04/16/17 08:51; Admin Dose 300 MLS/HR; Start 04/13/17 at 21:00 Sodium Chloride (NS) 1,000 ml @ 60 mls/hr [id number] IV Last administered on 04/16 08:51; Admin Dose 60 MLS/HR; Start 04/13/17 at 21:00 Diagnostic Test (Pha) (Accu-Chek) 1 ea 02 XX Last administered on 04/15/17 02: 00; Admin Dose 1 EA; Start 04/14/17 at 02:00 Miscellaneous Information 1 ea NOTE XX ; Start 04/13/17 at 21:30 Glucose (Glutose) 15 gm Q15M PRN PO DECREASED GLUCOSE; Start 04/13/17 at 21:30 Glucose (Glutose) 22.5 gm Q15M PRN PO DECREASED GLUCOSE; Start 04/13/17 at 21: 30 Dextrose (D50w Syringe) 25 ml Q15M PRN IV DECREASED GLUCOSE; Start 04/13/17 at 21:30 Dextrose (D50w Syringe) 50 ml Q15M PRN IV DECREASED GLUCOSE; Start 04/13/17 at 21:30 Glucagon (Glucagen) 1 mg Q15M PRN IM DECREASED GLUCOSE; Start 04/13/17 at 21:30 Glucose (Glutose) 15 gm Q15M PRN BUCCAL DECREASED GLUCOSE; Start 04/13/17 at 21 :30 Ondansetron HCl (Zofran Inj) 4 mg Q6 PRN IV NAUSEA AND/OR VOMITING; Start 04/13 at 21:30 Hydromorphone HCl (Dilaudid) 0.5 mg Q3 PRN IV PAIN LEVEL 7-10 Last administered on 04/15/17 14:57; Admin Dose 0.5 MG; Start 04/13/17 at 22:00 Acetaminophen (Tylenol Supp) 650 mg Q4H PRN [place] PAIN OR TEMP ABOVE 38C Last administered on 04/15/17 01:39; Admin Dose 650 MG; Start 04/13/17 at 22:00 Famotidine (Pepcid Iv) 20 mg BID IV Last administered on 04/16/17 08:51; Admin Dose 20 MG; Start 04/15/17 at 09:00 Guaifenesin/ Dextromethorphan (Robitussin Dm Liquid Cup) 5 ml Q4H PRN PO COUGH ; Start 04/15/17 at 16:30 JOHN BURGOS MD Apr 16, 2017 12:30
[2017-04-16 12:46] LABS: ALBUMIN 2.1 g/dl (3.3-4.9); ALBUMIN/GLOBULIN RATIO 0.72; BILIRUBIN,DIRECT 0.6 mg/dl (0.00-0.20); BILIRUBIN,INDIRECT 0.9 mg/dl (0-1.1); BILIRUBIN,TOTAL 1.5 mg/dl (0.2-1.3); CREATININE 0.42 mg/dl (0.44-1.00); POTASSIUM 4.1 mmol/L (3.5-5.1)
--- NOTE | 2017-04-16 16:29 | CONS ---
Date/Time of Note Date/Time of Note DATE: 04/16/17 TIME: 16:26 Assessment/Plan Assessment/Plan Chief Complaint/Hosp Course 65-year-old female well known to me from previous admission has history of rectal cancer, sp excision of rectal mass in 2016, low anterior resection of rectal cancer. The patient is admitted with c/o chest pain- none at present. The patient denies any chest pain and is breathing comfortably. No cough, no leg pain or leg edema. No report of any focal weaknes. pt is noted to have hyponatremia, and renal has been consulted for it Problems: Additional Assessment/Plan 1. Acute hyponatremia 2/2 Hypovolemic hyponatremia 2. sepsis due to liver abscess 3. Hepatic abscess oN CT scan 4. Acute transaminitis 5. h/o Colon CA s/p previous Surgery 6. Hypokalemia Plan : K replacement, D/c IV fluids, Continue IV abx zosyn and Linezolid monitor electrolytes and renal function watch for metabolic acidosis since pt has been getting iV zyvox will follow up Consultation Date/Type/Reason Admit Date/Time Apr 13, 2017 at 19:51 Initial Consult Date 04/13/17 Type of Consultation: NEPHROLOGY Referring Provider: DARREL BURT MD Exam/Review of Systems Vital Signs Vitals Vital Signs Date Time Temp Pulse Resp B/P Pulse Ox O2 Delivery O2 Flow Rate FiO2 04/16/17 15:00 94 34 101/60 92 Nasal Cannula 4.0 04/16/17 12:00 98.1 Intake and Output 04/15/17 04/15/17 04/16/17 15:00 23:00 07:00 Intake Total 725.0 ml 742.5 ml 1680 ml Output Total 590 ml 685 ml 255 ml Balance 135.0 ml 57.5 ml 1425 ml Exam Constitutional: alert Psych: no complaints Head: normocephalic Eyes: nl conjunctiva ENMT: nl external ears & nose Neck: non-tender, supple Respiratory: clear to auscultation, normal air movement Cardiovascular: nl pulses, regular rate and rhythm Gastrointestinal: non-tender, soft Extremities: normal pulses 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: PROP SAWYER II-XII intact, 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, nl speech, nl strength Results Result Diagram: 04/16/17 5274 04/16/17 1215 Results 24 hrs Laboratory Tests Test 04/15/17 18:00 04/15/17 18:01 04/15/17 20:45 04/16/17 03:07 White Blood Count 5.1 # Red Blood Count 4.13 #L Hemoglobin 12.7 # Hematocrit 37.3 # Mean Corpuscular Volume 90.3 Mean Corpuscular Hemoglobin 30.8 Mean Corpuscular Hemoglobin Concent 34.0 Red Cell Distribution Width 15.2 H Platelet Count 290 Mean Platelet Volume 9.1 Neutrophils % Eosinophils % Nucleated Red Blood Cells % 0.0 Neutrophils # Eosinophils # Sodium Level 137 Potassium Level 4.4 Chloride Level 110 Carbon Dioxide Level 20 L Anion Gap 11 Blood Urea Nitrogen 13 Creatinine 0.47 Glucose Level 130 Calcium Level 8.0 L Bedside Glucose 113 176 161 Test 04/16/17 04:54 04/16/17 05:24 04/16/17 05:25 04/16/17 08:19 White Blood Count 8.9 # Red Blood Count 3.47 L Hemoglobin 10.2 L Hematocrit 30.7 L Mean Corpuscular Volume 88.5 Mean Corpuscular Hemoglobin 29.4 Mean Corpuscular Hemoglobin Concent 33.2 Red Cell Distribution Width 14.4 Platelet Count 223 # Mean Platelet Volume 8.3 Neutrophils % 86.6 H Lymphocytes % 8.4 L Monocytes % 3.9 Eosinophils % 0.0 Basophils % 0.3 Nucleated Red Blood Cells % 0.0 Neutrophils # 7.7 H Lymphocytes # 0.8 Monocytes # 0.4 Eosinophils # 0.0 Basophils # 0.0 Nucleated Red Blood Cells # 0.0 Troponin I < 0.012 Bedside Glucose 157 116 Lab Scanned Report BLOOD TRANSFUSION Test 04/16/17 11:52 04/16/17 12:15 Bedside Glucose 164 Sodium Level 132 L Potassium Level 4.1 Chloride Level 106 Carbon Dioxide Level 22 Anion Gap 8 Blood Urea Nitrogen 12 Creatinine 0.42 L Glucose Level 168 Calcium Level 8.0 L Total Bilirubin 1.5 H Direct Bilirubin 0.60 H Indirect Bilirubin 0.9 Aspartate Amino Transf (AST/SGOT) 43 Alanine Aminotransferase (ALT/SGPT) 87 H Alkaline Phosphatase 119 Total Protein 5.0 L Albumin 2.1 L Globulin 2.90 Albumin/Globulin Ratio 0.72 Medications Medications Current Medications Piperacillin Sod/ Tazobactam Sod 100 ml @ 200 mls/hr Q8 IVPB Last administered on 04/16/17t 13:39; Admin Dose 200 MLS/HR; Start 04/13/17 at 23:30 Linezolid 300 ml @ 300 mls/hr Q12 IVPB Last administered on 04/16/17 08:51; Admin Dose 300 MLS/HR; Start 04/13/17 at 21:00 Sodium Chloride (NS) 1,000 ml @ 60 mls/hr [id number] IV Last administered on 04/16 08:51; Admin Dose 60 MLS/HR; Start 04/13/17 at 21:00 Diagnostic Test (Pha) (Accu-Chek) 1 ea 02 XX Last administered on 04/15/17 02: 00; Admin Dose 1 EA; Start 04/14/17 at 02:00 Miscellaneous Information 1 ea NOTE XX ; Start 04/13/17 at 21:30 Glucose (Glutose) 15 gm Q15M PRN PO DECREASED GLUCOSE; Start 04/13/17 at 21:30 Glucose (Glutose) 22.5 gm Q15M PRN PO DECREASED GLUCOSE; Start 04/13/17 at 21: 30 Dextrose (D50w Syringe) 25 ml Q15M PRN IV DECREASED GLUCOSE; Start 04/13/17 at 21:30 Dextrose (D50w Syringe) 50 ml Q15M PRN IV DECREASED GLUCOSE; Start 04/13/17 at 21:30 Glucagon (Glucagen) 1 mg Q15M PRN IM DECREASED GLUCOSE; Start 04/13/17 at 21:30 Glucose (Glutose) 15 gm Q15M PRN BUCCAL DECREASED GLUCOSE; Start 04/13/17 at 21 :30 Ondansetron HCl (Zofran Inj) 4 mg Q6 PRN IV NAUSEA AND/OR VOMITING; Start 04/13 at 21:30 Hydromorphone HCl (Dilaudid) 0.5 mg Q3 PRN IV PAIN LEVEL 7-10 Last administered on 04/15/17 14:57; Admin Dose 0.5 MG; Start 04/13/17 at 22:00 Acetaminophen (Tylenol Supp) 650 mg Q4H PRN [place] PAIN OR TEMP ABOVE 38C Last administered on 04/15/17 01:39; Admin Dose 650 MG; Start 04/13/17 at 22:00 Guaifenesin/ Dextromethorphan (Robitussin Dm Liquid Cup) 5 ml Q4H PRN PO COUGH ; Start 04/15/17 at 16:30 Pantoprazole (Protonix Tab) 40 mg DAILY@06 PO ; Start 04/17/17 at 06:00 NGOC GARZA MD Apr 16, 2017 16:29
--- NOTE | 2017-04-16 18:49 | CONS ---
Date/Time of Note Date/Time of Note DATE: 04/16/17 TIME: 18:46 Assessment/Plan Assessment/Plan Chief Complaint/Hosp Course IMP: 1.Hypotension-borderline not requiring pressors 2.abnl ecg-with ST elevations antertior-negative trop x 3/NL EF by echo. NO CP 3.Liver abscess s/p CT guided drainage 4.H/O lung ca s/p resection with lung nodules by CT? 5.Lung nodules Recc: -Tele -serial ecg's -Continue abx's -F/U cx data -For abscess drain today -Follow BP closely Problems: Consultation Date/Type/Reason Admit Date/Time Apr 13, 2017 at 19:51 Initial Consult Date 04/13/17 Type of Consultation: cardiology Reason for Consultation Chest pain Referring Provider: DARREL BURT MD Exam/Review of Systems Vital Signs Vitals Vital Signs Date Time Temp Pulse Resp B/P Pulse Ox O2 Delivery O2 Flow Rate FiO2 04/16/17 18:34 93 8.0 04/16/17 16:00 94 04/16/17 16:00 98.6 33 103/58 Nasal Cannula Intake and Output 04/15/17 04/15/17 04/16/17 15:00 23:00 07:00 Intake Total 725.0 ml 742.5 ml 1680 ml Output Total 590 ml 685 ml 255 ml Balance 135.0 ml 57.5 ml 1425 ml Exam Review of Systems: CONSTITUTIONAL: No fevers, chills. PULMONARY: No sob CARDIOVASCULAR: No chest pain/palpitations GASTROINTESTINAL: No nausea/vomiting. GENITOURINARY: No hematuria/dysuria. MUSCULOSKELETAL: No myagias/arthalgias. PSYCHIATRIC: The patient denies depression. NEUROLOGIC: No weakness Constitutional: alert Psych: no complaints Head: normocephalic Neck: jvd (8 cm water), supple Respiratory: diminished breath sounds (at bases/B) Cardiovascular: regular rate and rhythm Gastrointestinal: soft, surgical scars (well healed midline) Musculoskeletal: muscle tone (normal) Extremities: edema (none) 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: other (NO focal deficits) Results Result Diagram: 04/16/17 0454 04/16/17 1215 Results 24 hrs Laboratory Tests Test 04/15/17 20:45 04/16/17 03:07 04/16/17 04:54 04/16/17 05:24 Bedside Glucose 176 161 157 White Blood Count 8.9 # Red Blood Count 3.47 L Hemoglobin 10.2 L Hematocrit 30.7 L Mean Corpuscular Volume 88.5 Mean Corpuscular Hemoglobin 29.4 Mean Corpuscular Hemoglobin Concent 33.2 Red Cell Distribution Width 14.4 Platelet Count 223 # Mean Platelet Volume 8.3 Neutrophils % 86.6 H Lymphocytes % 8.4 L Monocytes % 3.9 Eosinophils % 0.0 Basophils % 0.3 Nucleated Red Blood Cells % 0.0 Neutrophils # 7.7 H Lymphocytes # 0.8 Monocytes # 0.4 Eosinophils # 0.0 Basophils # 0.0 Nucleated Red Blood Cells # 0.0 Troponin I < 0.012 Test 04/16/17 05:25 04/16/17 08:19 04/16/17 11:52 04/16/17 12:15 Lab Scanned Report BLOOD TRANSFUSION Bedside Glucose 116 164 Sodium Level 132 L Potassium Level 4.1 Chloride Level 106 Carbon Dioxide Level 22 Anion Gap 8 Blood Urea Nitrogen 12 Creatinine 0.42 L Glucose Level 168 Calcium Level 8.0 L Total Bilirubin 1.5 H Direct Bilirubin 0.60 H Indirect Bilirubin 0.9 Aspartate Amino Transf (AST/SGOT) 43 Alanine Aminotransferase (ALT/SGPT) 87 H Alkaline Phosphatase 119 Total Protein 5.0 L Albumin 2.1 L Globulin 2.90 Albumin/Globulin Ratio 0.72 Test 04/16/17 17:12 Bedside Glucose 131 Medications Medications Current Medications Piperacillin Sod/ Tazobactam Sod 100 ml @ 200 mls/hr Q8 IVPB Last administered on 04/16/17 13:39; Admin Dose 200 MLS/HR; Start 04/13/17 at 23:30 Linezolid (Zyvox 600mg/D5W (Pmx)) 300 ml @ 300 mls/hr Q12 IVPB Last administered on 04/16/17 08:51; Admin Dose 300 MLS/HR; Start 04/13/17 at 21:00 Diagnostic Test (Pha) (Accu-Chek) 1 ea 02 XX Last administered on 04/15/17 02: 00; Admin Dose 1 EA; Start 04/14/17 at 02:00 Miscellaneous Information 1 ea NOTE XX ; Start 04/13/17 at 21:30 Glucose (Glutose) 15 gm Q15M PRN PO DECREASED GLUCOSE; Start 04/13/17 at 21:30 Glucose (Glutose) 22.5 gm Q15M PRN PO DECREASED GLUCOSE; Start 04/13/17 at 21: 30 Dextrose (D50w Syringe) 25 ml Q15M PRN IV DECREASED GLUCOSE; Start 04/13/17 at 21:30 Dextrose (D50w Syringe) 50 ml Q15M PRN IV DECREASED GLUCOSE; Start 04/13/17 at 21:30 Glucagon (Glucagen) 1 mg Q15M PRN IM DECREASED GLUCOSE; Start 04/13/17 at 21:30 Glucose (Glutose) 15 gm Q15M PRN BUCCAL DECREASED GLUCOSE; Start 04/13/17 at 21 :30 Ondansetron HCl (Zofran Inj) 4 mg Q6 PRN IV NAUSEA AND/OR VOMITING; Start 04/13 at 21:30 Hydromorphone HCl (Dilaudid) 0.5 mg Q3 PRN IV PAIN LEVEL 7-10 Last administered on 04/15/17 14:57; Admin Dose 0.5 MG; Start 04/13/17 at 22:00 Acetaminophen (Tylenol Supp) 650 mg Q4H PRN MT PAIN OR TEMP ABOVE 38C Last administered on 04/15/17 01:39; Admin Dose 650 MG; Start 04/13/17 at 22:00 Guaifenesin/ Dextromethorphan (Robitussin Dm Liquid Cup) 5 ml Q4H PRN PO COUGH ; Start 04/15/17 at 16:30 Pantoprazole (Protonix Tab) 40 mg DAILY@06 PO ; Start 04/17/17 at 06:00 LILIANA BARKSDALE Apr 16, 2017 18:49
[2017-04-17] VITALS (37 sets, daily range): BP systolic 99–127; BP diastolic 57–77; PULSE 90–109; RESP 16–38
[2017-04-17] MEDS: ACCU-CHEK XX SCH ×2 (02:00→22:21)
[2017-04-17] MEDS ORDERED: morphine 2 MG INJ IV PRN (03:00)
[2017-04-17] MEDS: PIPER-TAZO 3.375 GM IV (PMX) 100 ML IVPB SCH ×3 (06:30→21:39)
[2017-04-17] MEDS: PANTOPRAZOLE (EC) 40 MG TAB PO SCH (06:30)
[2017-04-17 06:49] LABS: BASOPHILS % 0.2 % (0.0-2.0); EOSINOPHILS % 0.1 % (0.0-7.0); HEMATOCRIT 30.6 % (37.0-47.0); HEMOGLOBIN 10.7 g/dl (12.0-16.0); LYMPHOCYTES # 0.9 10^3/ul (0.8-2.9); LYMPHOCYTES % 6.1 % (15.0-51.0); MEAN CORPUSCULAR VOLUME 88.7 fl (82.0-101.0); MEAN PLATELET VOLUME 8.7 fl (7.4-10.4); MONOCYTE # 0.4 10^3/ul (0.3-0.9); NEUTROPHIL # 13.2 10^3/ul (1.6-7.5); PLATELET COUNT 162 10^3/UL (140-415); RED BLOOD COUNT 3.45 10^6/ul (4.20-5.40); RED CELL DISTRIBUTION WIDTH 14.7 % (11.5-14.5); WHITE BLOOD COUNT 14.8 10^3/ul (4.8-10.8)
[2017-04-17 06:59] LABS: POSITIVE DIFF @See below
[2017-04-17] MEDS: Insulin NOVOLOG SS MILD Algorithm (SS with meals and bedtime) SC SCH ×4 (07:05→21:00)
[2017-04-17 07:17] LABS: ALBUMIN 2.2 g/dl (3.3-4.9); ALBUMIN/GLOBULIN RATIO 0.7; BILIRUBIN,INDIRECT 0.9 mg/dl (0-1.1); BILIRUBIN,TOTAL 0.9 mg/dl (0.2-1.3); CALCIUM 8.5 mg/dl (8.4-10.2); CREATININE 0.58 mg/dl (0.44-1.00); POTASSIUM 4.4 mmol/L (3.5-5.1); TOTAL PROTEIN 5.3 g/dl (6.1-8.1)
[2017-04-17] MEDS: LINEZOLID 600 MG/D5W (PMX) 300 ML IVPB SCH ×2 (09:32→21:39)
[2017-04-17] MEDS ORDERED: MAGNESIUM HYDROXIDE 30ML CUP PO PRN (11:30)
[2017-04-17] MEDS ORDERED: MAGNESIUM HYDROXIDE 30ML CUP PO ONE (11:30)
--- NOTE | 2017-04-17 11:54 | RADRPT ---
PROCEDURE: Chest xray. CLINICAL INDICATION: Hypoxia TECHNIQUE: A portable semi-erect AP view of the chest was obtained. COMPARISON: 04/13/2017. FINDINGS: The cardiomediastinal silhouette is within normal limits. There has been interval development of rosa ateral pleural effusions and bilateral lower lung zone airspace disease, right greater than left. No pneumothorax is identified. A right upper quadrant drain is noted. IMPRESSION: Interval development of bilateral pleural effusions and bilateral lower lung zone airspace disease, right greater than left. Right upper quadrant drain. RPTAT:PP .Jennifer Renteria MD, MD Date Time Electronically viewed and signed by .Jennifer Renteria MD, MD on 04/17/2017 11:53 .K/
--- NOTE | 2017-04-17 12:51 | PN ---
DATE: 04/17/2017 SUBJECTIVE DATA: The patient is in ICU. No complaints. No nausea, no vomiting. No bowel movement. Passing gases. No fever. apparently, the patient started to desaturate, they had to give nasal cannula oxygen. Now patient is on nasal cannula oxygen 4 L/minute. OBJECTIVE: GENERAL: Alert, awake, and oriented x3. VITAL SIGNS: Temperature 98.5, heart rate ranges in the 90s, respiratory rate 24, blood pressure 104/62. Saturation 95 percent on 4 liters. LABS: WBC today has increased to 14,800, with 89 percent segmented's. Hemoglobin 10.7, hematocrit 30.6. CHEMISTRY: Sodium 131, potassium normal 4.4. BUN and creatinine normal. Liver function and liver enzymes revealed T 79 is still up a little bit. AST normal at 39, Alk phos 137. Total protein 5.3, albumin 2.2. The preliminary report and a Gram stain of the culture from the abscess cavity has grown gram-positive rods raised, gram-negative rods raised. No growth after 1 day. ASSESSMENT: Plan this is a 66-year-old female who presented to the Emergency room with history of weakness and fever and was evaluated and was found to have leukocytosis. A CT scan of the abdomen showed a lobulated large liver abscess on the 04/15/2017. Percutaneous drainage of liver abscess was performed in the Radiology Department. Apparently, this was sent for culture and others. As mentioned above, the culture so far is negative. Gram-stain has revealed scant gram-positive rods and gram-negative rods. Patient's leukocyte count dropped low yesterday but today has risen up to 14,800 with shift to the left. The patient is doing fine. The urine output is good. No bowel movement in the past 2 days, but passing gas. On regular diet. The pigtail drainage in the last 24 h of 190 mL. Today so far is about 40 mL. The color is serous, not purulent grossly, it is not brownish. PLAN: Considering that in a good percentage of the liver abscesses the origin is said to be from biliary tree, I am going to order an MRCP for this patient to evaluate the biliary tree. . Dictated By: Osmani Ceballos MD /rachel/audelia /Document#: [id number] MTDD
--- NOTE | 2017-04-17 13:10 | CONS ---
Date/Time of Note Date/Time of Note DATE: 04/17/17 TIME: 13:09 Assessment/Plan Assessment/Plan Additional Assessment/Plan 1.Hypotension-borderline not requiring pressors- BETTER BP now 2.abnl ecg-with ST elevations antertior-negative trop x 3/NL EF by echo. NO CP - con't to optimize Rx now. 3.Liver abscess s/p CT guided drainage - better overall, on therapy with anti- Bx now. 4.H/O lung ca s/p resection with lung nodules by CT - pulmonary team follows 5.Lung nodules Consultation Date/Type/Reason Admit Date/Time Apr 13, 2017 at 19:51 Initial Consult Date 04/13/17 Type of Consultation: cardiology Referring Provider: DARREL BURT MD 24 HR Interval Summary Free Text/Dictation NO acute events - Pt doing better overall - in good fluid status now. ROS: No fever, no chills, no nausea, no vomiting, no diarrhea/constipation No recent weight changes No chest pain, no PND, no orthopnea No dizziness, blurred vision No thirst, no heat or cold intolerance Exam/Review of Systems Vital Signs Vitals Vital Signs Date Time Temp Pulse Resp B/P Pulse Ox O2 Delivery O2 Flow Rate FiO2 04/17/17 10:15 92 27 96 04/17/17 10:00 104/62 04/17/17 10:00 Nasal Cannula 4.0 04/17/17 08:00 98.5 Intake and Output 04/16/17 04/16/17 04/17/17 15:00 23:00 07:00 Intake Total 1330 ml 860 ml 500 ml Output Total 255 ml 740 ml 650 ml Balance 1075 ml 120 ml -150 ml Exam General: WN/WD/NAD, AOx 3 HEENT: Unicetric/atraumatic/EOMI (follow commands) NECK: JVD elevated, no thyromegaly Lymph: no lymphadenopathy HEART: regular with no S3, II/ systolic murmur at apex LUNGS: Coarse sounds ABD: soft, NT, ND, +BS : Intact Neuro: non focal SKIN: chronic changes EXT: trace edema Results Result Diagram: 04/17/17 0525 04/17/17 0525 Results 24 hrs Laboratory Tests Test 04/16/17 17:12 04/16/17 21:15 04/17/17 05:25 04/17/17 08:07 Bedside Glucose 131 143 120 White Blood Count 14.8 #H Red Blood Count 3.45 L Hemoglobin 10.7 L Hematocrit 30.6 L Mean Corpuscular Volume 88.7 Mean Corpuscular Hemoglobin 31.0 Mean Corpuscular Hemoglobin Concent 35.0 Red Cell Distribution Width 14.7 H Platelet Count 162 # Mean Platelet Volume 8.7 Neutrophils % 89.0 H Lymphocytes % 6.1 L Monocytes % 3.0 Eosinophils % 0.1 Basophils % 0.2 Nucleated Red Blood Cells % 0.0 Neutrophils # 13.2 H Lymphocytes # 0.9 Monocytes # 0.4 Eosinophils # 0.0 Basophils # 0.0 Nucleated Red Blood Cells # 0.0 Sodium Level 131 L Potassium Level 4.4 Chloride Level 101 Carbon Dioxide Level 24 Anion Gap 10 Blood Urea Nitrogen 8 Creatinine 0.58 Glucose Level 121 # Calcium Level 8.5 Total Bilirubin 0.9 Direct Bilirubin 0.00 # Indirect Bilirubin 0.9 Aspartate Amino Transf (AST/SGOT) 39 Alanine Aminotransferase (ALT/SGPT) 79 H Alkaline Phosphatase 137 H Total Protein 5.3 L Albumin 2.2 L Globulin 3.10 Albumin/Globulin Ratio 0.70 Test 04/17/17 11:30 Bedside Glucose 168 Medications Medications Current Medications Piperacillin Sod/ Tazobactam Sod 100 ml @ 200 mls/hr Q8 IVPB Last administered on 04/17/17 06:30; Admin Dose 200 MLS/HR; Start 04/13/17 at 23:30 Linezolid (Zyvox 600mg/D5W (Pmx)) 300 ml @ 300 mls/hr Q12 IVPB Last administered on 04/17/17 09:32; Admin Dose 300 MLS/HR; Start 04/13/17 at 21:00 Diagnostic Test (Pha) (Accu-Chek) 1 ea 02 XX Last administered on 04/15/17 02: 00; Admin Dose 1 EA; Start 04/14/17 at 02:00 Miscellaneous Information 1 ea NOTE XX ; Start 04/13/17 at 21:30 Glucose (Glutose) 15 gm Q15M PRN PO DECREASED GLUCOSE; Start 04/13/17 at 21:30 Glucose (Glutose) 22.5 gm Q15M PRN PO DECREASED GLUCOSE; Start 04/13/17 at 21: 30 Dextrose (D50w Syringe) 25 ml Q15M PRN IV DECREASED GLUCOSE; Start 04/13/17 at 21:30 Dextrose (D50w Syringe) 50 ml Q15M PRN IV DECREASED GLUCOSE; Start 04/13/17 at 21:30 Glucagon (Glucagen) 1 mg Q15M PRN IM DECREASED GLUCOSE; Start 04/13/17 at 21:30 Glucose (Glutose) 15 gm Q15M PRN BUCCAL DECREASED GLUCOSE; Start 04/13/17 at 21 :30 Ondansetron HCl (Zofran Inj) 4 mg Q6 PRN IV NAUSEA AND/OR VOMITING; Start 04/13 at 21:30 Guaifenesin/ Dextromethorphan (Robitussin Dm Liquid Cup) 5 ml Q4H PRN PO COUGH ; Start 04/15/17 at 16:30 Pantoprazole (Protonix Tab) 40 mg DAILY@06 PO Last administered on 04/17/17t 06 :30; Admin Dose 40 MG; Start 04/17/17 at 06:00 Acetaminophen (Tylenol Tab) 500 mg Q6H PRN PO PAIN AND OR ELEVATED TEMP; Start 04/17/17 at 03:00 Magnesium Hydroxide (Milk Of Mag) 30 ml DAILY PRN PO CONSTIPATION; Start at 11:30 JAIME BULLARD MD Apr 17, 2017 13:10
--- NOTE | 2017-04-17 15:31 | CONS ---
Date/Time of Note Date/Time of Note DATE: 04/17/17 TIME: 15:28 Assessment/Plan Assessment/Plan Chief Complaint/Hosp Course Problems: Additional Assessment/Plan 1. Acute hyponatremia 2/2 Hypovolemic hyponatremia 2. sepsis due to liver abscess 3. Hepatic abscess oN CT scan s/p CT guided drainage on 04/15/17 4. Acute transaminitis 5. h/o Colon CA s/p previous Surgery 6. Hypokalemia Plan : K replacement, Continue IV abx zosyn and Linezolid, Na 131 today monitor electrolytes and renal function watch for metabolic acidosis since pt has been getting iV zyvox will follow up Consultation Date/Type/Reason Admit Date/Time Apr 13, 2017 at 19:51 Initial Consult Date 04/13/17 Type of Consultation: NEPHROLOGY Referring Provider: DARREL BURT MD 24 HR Interval Summary Free Text/Dictation , no acute events, Pt more stable ,IVF stopped yesterday Exam/Review of Systems Vital Signs Vitals Vital Signs Date Time Temp Pulse Resp B/P Pulse Ox O2 Delivery O2 Flow Rate FiO2 04/17/17 14:28 94 4.0 04/17/17 12:00 94 04/17/17 10:15 27 04/17/17 10:00 104/62 04/17/17 10:00 Nasal Cannula 04/17/17 08:00 98.5 Intake and Output 04/16/17 04/16/17 04/17/17 15:00 23:00 07:00 Intake Total 1330 ml 860 ml 500 ml Output Total 255 ml 740 ml 650 ml Balance 1075 ml 120 ml -150 ml Exam Constitutional: alert Respiratory: clear to auscultation, normal air movement Cardiovascular: nl pulses, regular rate and rhythm Gastrointestinal: non-tender, soft Extremities: normal pulses 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: AGER OPERATOR II-XII intact, 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, nl speech, nl strength Results Result Diagram: 04/17/17 0525 04/17/17 0525 Results 24 hrs Laboratory Tests Test 04/16/17 17:12 04/16/17 21:15 04/17/17 05:25 04/17/17 08:07 Bedside Glucose 131 143 120 White Blood Count 14.8 #H Red Blood Count 3.45 L Hemoglobin 10.7 L Hematocrit 30.6 L Mean Corpuscular Volume 88.7 Mean Corpuscular Hemoglobin 31.0 Mean Corpuscular Hemoglobin Concent 35.0 Red Cell Distribution Width 14.7 H Platelet Count 162 # Mean Platelet Volume 8.7 Neutrophils % 89.0 H Lymphocytes % 6.1 L Monocytes % 3.0 Eosinophils % 0.1 Basophils % 0.2 Nucleated Red Blood Cells % 0.0 Neutrophils # 13.2 H Lymphocytes # 0.9 Monocytes # 0.4 Eosinophils # 0.0 Basophils # 0.0 Nucleated Red Blood Cells # 0.0 Sodium Level 131 L Potassium Level 4.4 Chloride Level 101 Carbon Dioxide Level 24 Anion Gap 10 Blood Urea Nitrogen 8 Creatinine 0.58 Glucose Level 121 # Calcium Level 8.5 Total Bilirubin 0.9 Direct Bilirubin 0.00 # Indirect Bilirubin 0.9 Aspartate Amino Transf (AST/SGOT) 39 Alanine Aminotransferase (ALT/SGPT) 79 H Alkaline Phosphatase 137 H Total Protein 5.3 L Albumin 2.2 L Globulin 3.10 Albumin/Globulin Ratio 0.70 Test 04/17/17 11:30 Bedside Glucose 168 Medications Medications Current Medications Piperacillin Sod/ Tazobactam Sod 100 ml @ 200 mls/hr Q8 IVPB Last administered on 04/17/17 14:14; Admin Dose 200 MLS/HR; Start 04/13/17 at 23:30 Linezolid (Zyvox 600mg/D5W (Pmx)) 300 ml @ 300 mls/hr Q12 IVPB Last administered on 04/17/17 09:32; Admin Dose 300 MLS/HR; Start 04/13/17 at 21:00 Diagnostic Test (Pha) (Accu-Chek) 1 ea 02 XX Last administered on 04/15/17 02: 00; Admin Dose 1 EA; Start 04/14/17 at 02:00 Miscellaneous Information 1 ea NOTE XX ; Start 04/13/17 at 21:30 Glucose (Glutose) 15 gm Q15M PRN PO DECREASED GLUCOSE; Start 04/13/17 at 21:30 Glucose (Glutose) 22.5 gm Q15M PRN PO DECREASED GLUCOSE; Start 04/13/17 at 21: 30 Dextrose (D50w Syringe) 25 ml Q15M PRN IV DECREASED GLUCOSE; Start 04/13/17 at 21:30 Dextrose (D50w Syringe) 50 ml Q15M PRN IV DECREASED GLUCOSE; Start 04/13/17 at 21:30 Glucagon (Glucagen) 1 mg Q15M PRN IM DECREASED GLUCOSE; Start 04/13/17 at 21:30 Glucose (Glutose) 15 gm Q15M PRN BUCCAL DECREASED GLUCOSE; Start 04/13/17 at 21 :30 Ondansetron HCl (Zofran Inj) 4 mg Q6 PRN IV NAUSEA AND/OR VOMITING; Start 04/13 at 21:30 Guaifenesin/ Dextromethorphan (Robitussin Dm Liquid Cup) 5 ml Q4H PRN PO COUGH ; Start 04/15/17 at 16:30 Pantoprazole (Protonix Tab) 40 mg DAILY@06 PO Last administered on 04/17/17t 06 :30; Admin Dose 40 MG; Start 04/17/17 at 06:00 Acetaminophen (Tylenol Tab) 500 mg Q6H PRN PO PAIN AND OR ELEVATED TEMP; Start 04/17/17 at 03:00 Magnesium Hydroxide (Milk Of Mag) 30 ml DAILY PRN PO CONSTIPATION; Start at 11:30 NGOC GARZA MD Apr 17, 2017 15:30
--- NOTE | 2017-04-17 19:59 | PN ---
Date/Time of Note Date/Time of Note DATE: 04/17/17 TIME: 19:58 Assessment/Plan VTE Prophylaxis VTE Prophylaxis Intervention: other Lines/Catheters IV Catheter Type (from Nrs): Peripheral IV Urinary Cath still in place: Yes Reason Cath still needed: urinary retention Assessment/Plan Assessment/Plan - Hepatic abscess-12.4 x 9.2 x 11.1 cm,per CT. SP drainage of Abcess- 04/14. Surgical drain noted. - GI consult- Dr English - per Surgery consult -- Hypotension - NS 500CC X1 Bolus , cont to monitor - Anemia - sp 1 UNIT PRBC - monitor CBC am - Chest pain-none at present - admit to Tele - Cardiology consult- Dr Hendrickson notified - Sepsis - ID consult- Dr Diana notified - On Zosyn, Zyvox - Transaminitis - NPO, IVF - per GI -Coagulopathy- Monitor labs - Hyponatremia Na 129 - Nephro consult- Dr Ruel Espino notified - IVF- NS at 60 cc/hr - Pre DM - Glycemic control - Dietary consult - Cachexia - Dietary consult - Hx Rectal cancer status post low anterior resection. PLAN: - IVF SCD for DVT prophylaxis. Total critical care time spent- 30 mins Further recommendation will depend on hospital course. Catrachito Dior Subjective 24 Hr Interval Summary Constitutional: improved Cardiovascular: no complaints Gastrointestinal: pain Genitourinary: no complaints Musculoskeletal: no complaints Skin: no complaints Exam/Review of Systems Vital Signs Vitals Vital Signs Date Time Temp Pulse Resp B/P Pulse Ox O2 Delivery O2 Flow Rate FiO2 04/17/17 15:15 104 30 91 04/17/17 15:00 105/70 Nasal Cannula 4.0 04/17/17 12:15 98.4 Intake and Output 04/16/17 04/16/17 04/17/17 15:00 23:00 07:00 Intake Total 1330 ml 860 ml 500 ml Output Total 255 ml 740 ml 650 ml Balance 1075 ml 120 ml -150 ml Exam Constitutional: alert, oriented Respiratory: diminished breath sounds, normal air movement Cardiovascular: nl pulses, regular rate and rhythm Gastrointestinal: other, soft, tender Musculoskeletal: nl extremities to inspection Extremities: normal pulses 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: 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, nl speech Results Result Diagram: 04/17/17 0525 04/17/1725 Results 24 hrs Laboratory Tests Test 04/16/17 21:15 04/17/17 05:25 04/17/17 08:07 04/17/17 11:30 Bedside Glucose 143 120 168 White Blood Count 14.8 #H Red Blood Count 3.45 L Hemoglobin 10.7 L Hematocrit 30.6 L Mean Corpuscular Volume 88.7 Mean Corpuscular Hemoglobin 31.0 Mean Corpuscular Hemoglobin Concent 35.0 Red Cell Distribution Width 14.7 H Platelet Count 162 # Mean Platelet Volume 8.7 Neutrophils % 89.0 H Lymphocytes % 6.1 L Monocytes % 3.0 Eosinophils % 0.1 Basophils % 0.2 Nucleated Red Blood Cells % 0.0 Neutrophils # 13.2 H Lymphocytes # 0.9 Monocytes # 0.4 Eosinophils # 0.0 Basophils # 0.0 Nucleated Red Blood Cells # 0.0 Sodium Level 131 L Potassium Level 4.4 Chloride Level 101 Carbon Dioxide Level 24 Anion Gap 10 Blood Urea Nitrogen 8 Creatinine 0.58 Glucose Level 121 # Calcium Level 8.5 Total Bilirubin 0.9 Direct Bilirubin 0.00 # Indirect Bilirubin 0.9 Aspartate Amino Transf (AST/SGOT) 39 Alanine Aminotransferase (ALT/SGPT) 79 H Alkaline Phosphatase 137 H Total Protein 5.3 L Albumin 2.2 L Globulin 3.10 Albumin/Globulin Ratio 0.70 Test 04/17/17 17:42 Bedside Glucose 131 Medications Medications Current Medications Piperacillin Sod/ Tazobactam Sod 100 ml @ 200 mls/hr Q8 IVPB Last administered on 04/17/17 14:14; Admin Dose 200 MLS/HR; Start 04/13/17 at 23:30 Linezolid (Zyvox 600mg/D5W (Pmx)) 300 ml @ 300 mls/hr Q12 IVPB Last administered on 04/17/17 09:32; Admin Dose 300 MLS/HR; Start 04/13/17 at 21:00 Diagnostic Test (Pha) (Accu-Chek) 1 ea 02 XX Last administered on 04/15/17 02: 00; Admin Dose 1 EA; Start 04/14/17 at 02:00 Miscellaneous Information 1 ea NOTE XX ; Start 04/13/17 at 21:30 Glucose (Glutose) 15 gm Q15M PRN PO DECREASED GLUCOSE; Start 04/13/17 at 21:30 Glucose (Glutose) 22.5 gm Q15M PRN PO DECREASED GLUCOSE; Start 04/13/17 at 21: 30 Dextrose (D50w Syringe) 25 ml Q15M PRN IV DECREASED GLUCOSE; Start 04/13/17 at 21:30 Dextrose (D50w Syringe) 50 ml Q15M PRN IV DECREASED GLUCOSE; Start 04/13/17 at 21:30 Glucagon (Glucagen) 1 mg Q15M PRN IM DECREASED GLUCOSE; Start 04/13/17 at 21:30 Glucose (Glutose) 15 gm Q15M PRN BUCCAL DECREASED GLUCOSE; Start 04/13/17 at 21 :30 Ondansetron HCl (Zofran Inj) 4 mg Q6 PRN IV NAUSEA AND/OR VOMITING; Start 04/13 at 21:30 Guaifenesin/ Dextromethorphan (Robitussin Dm Liquid Cup) 5 ml Q4H PRN PO COUGH ; Start 04/15/17 at 16:30 Pantoprazole (Protonix Tab) 40 mg DAILY@06 PO Last administered on 04/17/17t 06 :30; Admin Dose 40 MG; Start 04/17/17 at 06:00 Acetaminophen (Tylenol Tab) 500 mg Q6H PRN PO PAIN AND OR ELEVATED TEMP; Start 04/17/17 at 03:00 Magnesium Hydroxide (Milk Of Mag) 30 ml DAILY PRN PO CONSTIPATION; Start at 11:30 MESHA VELASQUEZ Apr 17, 2017 19:59
--- NOTE | 2017-04-17 23:25 | RADRPT ---
PROCEDURE: MRI MRCP. CLINICAL INDICATION: Hepatic abscess. Questionable biliary abnormality. TECHNIQUE: MRCP was performed without contrast. 3-D/multiplanar reformations and coronal rotating M IP images of the biliary tree were performed by the technologist and at an independent workstation. Evaluation is partially limited due to motion artifact. COMPARISON: CT dated 04/13/[address] guided aspiration dated 04/15/2017. FINDINGS: There is no intra or extrahepatic biliary ductal dilatation or filling defect within the biliary tree. There is no pancreatic ductal dilatation or intraluminal filling defect. There is ga llbladder sludge and diffuse gallbladder wall thickening, which is nonspecific. A large, multiloculated abscess spanning the anterior and medial left hepatic lobes has decreased in size, previously measuring 12.4 x 9.2 cm and currently measuring 10.8 x 7.4 cm in axial dimension. There are new moderate right and small left effusions with associated bibasilar parenchymal disease. There is ascites within the visualized abdomen and there is anasarca. There are nonspecific distend ed small bowel loops in the left upper quadrant and left mid abdomen. IMPRESSION: 1. No biliary ductal dilatation or choledocholithiasis. 2. Gallbladder sludge with nonspecific gallbladder wall thickening. 3. Interval decrease in size of a multiloculated hepatic abscess, consistent with drainage. The gaby ge catheter is not clearly identified due to technique. 4. New moderate right and small left effusions and bibasilar parenchymal disease. 5. New ascites and anasarca. 6. Nonspecific dilated small bowel loops in the left upper quadrant and left mid abdomen. CT of the abdomen and pelvis can be performed for further evaluation as clinically warranted. RPTAT: HLBP .Jc Del Castillo MD, MD Date Time Electronically viewed and signed by .Jc Del Castillo MD, MD on 04/17/2017 23:24 .P/
[2017-04-18 02:25] VITALS: BP 105/59; RESP 18
[2017-04-18] MEDS: PANTOPRAZOLE (EC) 40 MG TAB PO SCH (05:00)
[2017-04-18] MEDS: PIPER-TAZO 3.375 GM IV (PMX) 100 ML IVPB SCH ×2 (05:00→13:32)
[2017-04-18 05:26] LABS: BASOPHILS % 0.1 % (0.0-2.0); EOSINOPHILS % 0.3 % (0.0-7.0); HEMOGLOBIN 10.3 g/dl (12.0-16.0); LYMPHOCYTES # 1.3 10^3/ul (0.8-2.9); MEAN CORPUSCULAR HEMOGLOBIN 30.9 pg (29.0-33.0); MEAN CORPUSCULAR HGB CONC 35.5 g/dl (32.0-37.0); MEAN CORPUSCULAR VOLUME 87.1 fl (82.0-101.0); MEAN PLATELET VOLUME 8.4 fl (7.4-10.4); MONOCYTE # 0.6 10^3/ul (0.3-0.9); MONOCYTES % 4.7 % (0.0-11.0); NEUTROPHIL # 9.6 10^3/ul (1.6-7.5); NEUTROPHILS % 82.6 % (39.0-77.0); PLATELET COUNT 102 10^3/UL (140-415); RED BLOOD COUNT 3.33 10^6/ul (4.20-5.40); RED CELL DISTRIBUTION WIDTH 14.2 % (11.5-14.5); WHITE BLOOD COUNT 11.6 10^3/ul (4.8-10.8)
[2017-04-18 05:33] LABS: POSITIVE DIFF @See below
[2017-04-18 06:03] LABS: CALCIUM 8.4 mg/dl (8.4-10.2); CREATININE 0.54 mg/dl (0.44-1.00); POTASSIUM 4.2 mmol/L (3.5-5.1)
[2017-04-18] MEDS: Insulin NOVOLOG SS MILD Algorithm (SS with meals and bedtime) SC SCH ×4 (07:30→20:20)
[2017-04-18 07:57] VITALS: BP 102/64; RESP 20
[2017-04-18] MEDS: LINEZOLID 600 MG/D5W (PMX) 300 ML IVPB SCH ×2 (08:20→20:20)
--- NOTE | 2017-04-18 11:03 | RADRPT ---
PROCEDURE: XR Chest. CLINICAL INDICATION: Shortness of breath TECHNIQUE: Single frontal chest x-ray. COMPARISON: 04/17/2017. FINDINGS: The cardiomediastinal silhouette is within normal limits. There are persistent snakk bilateral pleur al effusions and bilateral lower lung zone airspace disease, right greater than left. No pneumothora x is identified. A right upper quadrant drain is noted. IMPRESSION: 1. Persistent small bilateral pleural effusions and bilateral lower lung zone airspace disease, rig ht greater than left and minimally increased on the right. 2. Right upper quadrant drain. RPTAT: QQ .Nilo Palacios MD, MD Date Time Electronically viewed and signed by .Nilo Palacios MD, on 04/18/2017 11:02 .A/
--- NOTE | 2017-04-18 12:31 | CONS ---
Date/Time of Note Date/Time of Note DATE: 04/18/17 TIME: 11:53 Assessment/Plan Assessment/Plan Additional Assessment/Plan - Bilateral Pleural effusion- c/o SOB - pulmonary recommended- dw staff - Severe sepsis 2/2 to liver abscess - improving - Liver abscess s/p CT guided drainage 04/15/2017 - Hypotension - improved with IVF - Normocytic anemia requiring blood transfusion - Coagulopathy - improved - Transaminitis - slowly improving - Hyponatremia on admission - resolved - CoNS in urine culture with trivial pyuria, likely contaminant; pt asymptomatic - Hx of rectal CA s/p Low anterior resection 08/29/2016 Recommendations: - continue linezolid and pip/tazo (04/13/2017-); will adjust antibiotics based on wound culture results - pending: CT guided drainage C&S Management d/w patient, RN Isaura, and Dr. Diana Consultation Date/Type/Reason Admit Date/Time Apr 13, 2017 at 19:51 Initial Consult Date 04/15/17 Type of Consultation: INFECTIOUS DISEASE Referring Provider: DARREL BURT MD 24 HR Interval Summary Free Text/Dictation No acute events overnight, c/o shortness of breath on exertion- better now, lungs are clear to auscultate. on O2 2l VIA NC- tolerating well. BP low at times but pt is asymptomatic and on IVF; poor appetite. eating >50% of Full liquid diet per d/w nursing staff. Will ass dietary to follow. Denies CP, n/v/d , dysuria,Denies any pain at present. CXR showed Constitutional: requiring IVF, requiring O2 Exam/Review of Systems Vital Signs Vitals Vital Signs Date Time Temp Pulse Resp B/P Pulse Ox O2 Delivery O2 Flow Rate FiO2 04/18/17 08:00 Nasal Cannula 6.0 04/18/17 07:57 97.9 94 20 102/64 96 Intake and Output 04/17/17 04/17/17 04/18/17 15:00 23:00 07:00 Intake Total 540 ml 500 ml 500 ml Output Total 930 ml 720 ml 1000 ml Balance -390 ml -220 ml -500 ml Exam Constitutional: alert, frail, oriented Respiratory: diminished breath sounds Cardiovascular: nl pulses, regular rate and rhythm Gastrointestinal: other (right abdomen drain noted), soft, tender Musculoskeletal: nl extremities to inspection Extremities: normal pulses 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: 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, nl speech Results Result Diagram: 04/18/17 0420 04/18/17 0420 Results 24 hrs Laboratory Tests Test 04/17/17 17:42 04/17/17 21:38 04/18/17 04:20 04/18/17 08:17 Bedside Glucose 131 161 107 White Blood Count 11.6 #H Red Blood Count 3.33 L Hemoglobin 10.3 L Hematocrit 29.0 L Mean Corpuscular Volume 87.1 Mean Corpuscular Hemoglobin 30.9 Mean Corpuscular Hemoglobin Concent 35.5 Red Cell Distribution Width 14.2 Platelet Count 102 #L Mean Platelet Volume 8.4 Neutrophils % 82.6 H Lymphocytes % 11.0 L Monocytes % 4.7 Eosinophils % 0.3 Basophils % 0.1 Nucleated Red Blood Cells % 0.0 Neutrophils # 9.6 H Lymphocytes # 1.3 Monocytes # 0.6 Eosinophils # 0.0 Basophils # 0.0 Nucleated Red Blood Cells # 0.0 Sodium Level 131 L Potassium Level 4.2 Chloride Level 101 Carbon Dioxide Level 27 Anion Gap 7 L Blood Urea Nitrogen 7 Creatinine 0.54 Glucose Level 122 Calcium Level 8.4 Medications Medications Current Medications Piperacillin Sod/ Tazobactam Sod 100 ml @ 200 mls/hr Q8 IVPB Last administered on 04/18/17 05:00; Admin Dose 200 MLS/HR; Start 04/13/17 at 23:30 Linezolid (Zyvox 600mg/D5W (Pmx)) 300 ml @ 300 mls/hr Q12 IVPB Last administered on 04/18/17 08:20; Admin Dose 300 MLS/HR; Start 04/13/17 at 21:00 Diagnostic Test (Pha) (Accu-Chek) 1 ea 02 XX Last administered on 04/15/17 02: 00; Admin Dose 1 EA; Start 04/14/17 at 02:00 Miscellaneous Information 1 ea NOTE XX ; Start 04/13/17 at 21:30 Glucose (Glutose) 15 gm Q15M PRN PO DECREASED GLUCOSE; Start 04/13/17 at 21:30 Glucose (Glutose) 22.5 gm Q15M PRN PO DECREASED GLUCOSE; Start 04/13/17 at 21: 30 Dextrose (D50w Syringe) 25 ml Q15M PRN IV DECREASED GLUCOSE; Start 04/13/17 at 21:30 Dextrose (D50w Syringe) 50 ml Q15M PRN IV DECREASED GLUCOSE; Start 04/13/17 at 21:30 Glucagon (Glucagen) 1 mg Q15M PRN IM DECREASED GLUCOSE; Start 04/13/17 at 21:30 Glucose (Glutose) 15 gm Q15M PRN BUCCAL DECREASED GLUCOSE; Start 04/13/17 at 21 :30 Ondansetron HCl (Zofran Inj) 4 mg Q6 PRN IV NAUSEA AND/OR VOMITING; Start 04/13 at 21:30 Guaifenesin/ Dextromethorphan (Robitussin Dm Liquid Cup) 5 ml Q4H PRN PO COUGH ; Start 04/15/17 at 16:30 Pantoprazole (Protonix Tab) 40 mg DAILY@06 PO Last administered on 04/18/17t 05 :00; Admin Dose 40 MG; Start 04/17/17 at 06:00 Acetaminophen (Tylenol Tab) 500 mg Q6H PRN PO PAIN AND OR ELEVATED TEMP; Start 04/17/17 at 03:00 Magnesium Hydroxide (Milk Of Mag) 30 ml DAILY PRN PO CONSTIPATION; Start at 11:30 MESHA VELASQUEZ Apr 18, 2017 12:03
--- NOTE | 2017-04-18 13:02 | PN ---
Date/Time of Note Date/Time of Note DATE: 04/18/17 TIME: 13:02 Assessment/Plan VTE Prophylaxis VTE Prophylaxis Intervention: other Lines/Catheters IV Catheter Type (from Nrsg): Saline Lock Urinary Cath still in place: Yes Reason Cath still needed: skin wounds contaminated by urine Assessment/Plan Chief Complaint/Hosp Course - Hepatic abscess-12.4 x 9.2 x 11.1 cm,per CT. SP drainage of Abcess- 04/14. Surgical drain noted. - GI consult- Dr English - per Surgery consult -- Hypotension - NS 500CC X1 Bolus , cont to monitor - Anemia - sp 1 UNIT PRBC - monitor CBC am - Chest pain-none at present - admit to Tele - Cardiology consult- Dr Hendrickson notified - Sepsis - ID consult- Dr Diana notified - On Zosyn, Zyvox - Transaminitis - NPO, IVF - per GI -Coagulopathy- Monitor labs - Hyponatremia Na 129 - Nephro consult- Dr Ruel Espino notified - IVF- NS at 60 cc/hr - Pre DM - Glycemic control - Dietary consult - Cachexia - Dietary consult - Hx Rectal cancer status post low anterior resection. Problems: Subjective 24 Hr Interval Summary Free Text/Dictation Patient denies any pain Exam/Review of Systems Vital Signs Vitals Vital Signs Date Time Temp Pulse Resp B/P Pulse Ox O2 Delivery O2 Flow Rate FiO2 04/18/17 08:00 Nasal Cannula 6.0 04/18/17 07:57 97.9 94 20 102/64 96 Intake and Output 04/17/17 04/17/17 04/18/17 15:00 23:00 07:00 Intake Total 540 ml 500 ml 500 ml Output Total 930 ml 720 ml 1000 ml Balance -390 ml -220 ml -500 ml Exam Constitutional: well developed Head: atraumatic, normocephalic Neck: supple Respiratory: clear to auscultation Cardiovascular: regular rate and rhythm Gastrointestinal: non-tender, soft Extremities: normal pulses Results Result Diagram: 04/18/1741904/18/17 042 Results 24 hrs Laboratory Tests Test 04/17/17 17:42 04/17/17 21:38 04/18/17 04:20 04/18/17 08:17 Bedside Glucose 131 161 107 White Blood Count 11.6 #H Red Blood Count 3.33 L Hemoglobin 10.3 L Hematocrit 29.0 L Mean Corpuscular Volume 87.1 Mean Corpuscular Hemoglobin 30.9 Mean Corpuscular Hemoglobin Concent 35.5 Red Cell Distribution Width 14.2 Platelet Count 102 #L Mean Platelet Volume 8.4 Neutrophils % 82.6 H Lymphocytes % 11.0 L Monocytes % 4.7 Eosinophils % 0.3 Basophils % 0.1 Nucleated Red Blood Cells % 0.0 Neutrophils # 9.6 H Lymphocytes # 1.3 Monocytes # 0.6 Eosinophils # 0.0 Basophils # 0.0 Nucleated Red Blood Cells # 0.0 Sodium Level 131 L Potassium Level 4.2 Chloride Level 101 Carbon Dioxide Level 27 Anion Gap 7 L Blood Urea Nitrogen 7 Creatinine 0.54 Glucose Level 122 Calcium Level 8.4 Test 04/18/17 11:51 Bedside Glucose 139 Medications Medications Current Medications Piperacillin Sod/ Tazobactam Sod 100 ml @ 200 mls/hr Q8 IVPB Last administered on 04/18/17 05:00; Admin Dose 200 MLS/HR; Start 04/13/17 at 23:30 Linezolid (Zyvox 600mg/D5W (Pmx)) 300 ml @ 300 mls/hr Q12 IVPB Last administered on 04/18/17 08:20; Admin Dose 300 MLS/HR; Start 04/13/17 at 21:00 Diagnostic Test (Pha) (Accu-Chek) 1 ea 02 XX Last administered on 04/15/17 02: 00; Admin Dose 1 EA; Start 04/14/17 at 02:00 Miscellaneous Information 1 ea NOTE XX ; Start 04/13/17 at 21:30 Glucose (Glutose) 15 gm Q15M PRN PO DECREASED GLUCOSE; Start 04/13/17 at 21:30 Glucose (Glutose) 22.5 gm Q15M PRN PO DECREASED GLUCOSE; Start 04/13/17 at 21: 30 Dextrose (D50w Syringe) 25 ml Q15M PRN IV DECREASED GLUCOSE; Start 04/13/17 at 21:30 Dextrose (D50w Syringe) 50 ml Q15M PRN IV DECREASED GLUCOSE; Start 04/13/17 at 21:30 Glucagon (Glucagen) 1 mg Q15M PRN IM DECREASED GLUCOSE; Start 04/13/17 at 21:30 Glucose (Glutose) 15 gm Q15M PRN BUCCAL DECREASED GLUCOSE; Start 04/13/17 at 21 :30 Ondansetron HCl (Zofran Inj) 4 mg Q6 PRN IV NAUSEA AND/OR VOMITING; Start 04/13 at 21:30 Guaifenesin/ Dextromethorphan (Robitussin Dm Liquid Cup) 5 ml Q4H PRN PO COUGH ; Start 04/15/17 at 16:30 Pantoprazole (Protonix Tab) 40 mg DAILY@06 PO Last administered on 04/18/17t 05 :00; Admin Dose 40 MG; Start 04/17/17 at 06:00 Acetaminophen (Tylenol Tab) 500 mg Q6H PRN PO PAIN AND OR ELEVATED TEMP; Start 04/17/17 at 03:00 Magnesium Hydroxide (Milk Of Mag) 30 ml DAILY PRN PO CONSTIPATION; Start at 11:30 PILAR FARMER Apr 18, 2017 13:02
--- NOTE | 2017-04-18 13:05 | CONS ---
Date/Time of Note Date/Time of Note DATE: 04/17/17 TIME: 13:05 Assessment/Plan Assessment/Plan Chief Complaint/Hosp Course - Severe sepsis 2/2 to liver abscess - improving - Liver abscess s/p CT guided drainage 04/15/2017 - Hypotension - improved with IVF - Normocytic anemia requiring blood transfusion - Coagulopathy - improved - Transaminitis - slowly improving - Hyponatremia on admission - resolved - CoNS in urine culture with trivial pyuria, likely contaminant; pt asymptomatic - Hx of rectal CA s/p Low anterior resection 08/29/2016 Recommendations: - continue linezolid and pip/tazo (04/13/2017-); will adjust antibiotics based on wound culture results - pending: CT guided drainage C&S Problems: Consultation Date/Type/Reason Admit Date/Time Apr 13, 2017 at 19:51 Initial Consult Date 04/13/17 Type of Consultation: INFECTIOUS DISEASE Referring Provider: DARREL BURT MD Exam/Review of Systems Vital Signs Vitals Vital Signs Date Time Temp Pulse Resp B/P Pulse Ox O2 Delivery O2 Flow Rate FiO2 04/18/17 08:00 Nasal Cannula 6.0 04/18/17 07:57 97.9 94 20 102/64 96 Intake and Output 04/17/17 04/17/17 04/18/17 15:00 23:00 07:00 Intake Total 540 ml 500 ml 500 ml Output Total 930 ml 720 ml 1000 ml Balance -390 ml -220 ml -500 ml Results Result Diagram: 04/18/17 0420 04/18/17 0420 Results 24 hrs Laboratory Tests Test 04/17/17 17:42 04/17/17 21:38 04/18/17 04:20 04/18/17 08:17 Bedside Glucose 131 161 107 White Blood Count 11.6 #H Red Blood Count 3.33 L Hemoglobin 10.3 L Hematocrit 29.0 L Mean Corpuscular Volume 87.1 Mean Corpuscular Hemoglobin 30.9 Mean Corpuscular Hemoglobin Concent 35.5 Red Cell Distribution Width 14.2 Platelet Count 102 #L Mean Platelet Volume 8.4 Neutrophils % 82.6 H Lymphocytes % 11.0 L Monocytes % 4.7 Eosinophils % 0.3 Basophils % 0.1 Nucleated Red Blood Cells % 0.0 Neutrophils # 9.6 H Lymphocytes # 1.3 Monocytes # 0.6 Eosinophils # 0.0 Basophils # 0.0 Nucleated Red Blood Cells # 0.0 Sodium Level 131 L Potassium Level 4.2 Chloride Level 101 Carbon Dioxide Level 27 Anion Gap 7 L Blood Urea Nitrogen 7 Creatinine 0.54 Glucose Level 122 Calcium Level 8.4 Test 04/18/17 11:51 Bedside Glucose 139 Medications Medications Current Medications Piperacillin Sod/ Tazobactam Sod 100 ml @ 200 mls/hr Q8 IVPB Last administered on 04/18/17 05:00; Admin Dose 200 MLS/HR; Start 04/13/17 at 23:30 Linezolid (Zyvox 600mg/D5W (Pmx)) 300 ml @ 300 mls/hr Q12 IVPB Last administered on 04/18/17 08:20; Admin Dose 300 MLS/HR; Start 04/13/17 at 21:00 Diagnostic Test (Pha) (Accu-Chek) 1 ea 02 XX Last administered on 04/15/17 02: 00; Admin Dose 1 EA; Start 04/14/17 at 02:00 Miscellaneous Information 1 ea NOTE XX ; Start 04/13/17 at 21:30 Glucose (Glutose) 15 gm Q15M PRN PO DECREASED GLUCOSE; Start 04/13/17 at 21:30 Glucose (Glutose) 22.5 gm Q15M PRN PO DECREASED GLUCOSE; Start 04/13/17 at 21: 30 Dextrose (D50w Syringe) 25 ml Q15M PRN IV DECREASED GLUCOSE; Start 04/13/17 at 21:30 Dextrose (D50w Syringe) 50 ml Q15M PRN IV DECREASED GLUCOSE; Start 04/13/17 at 21:30 Glucagon (Glucagen) 1 mg Q15M PRN IM DECREASED GLUCOSE; Start 04/13/17 at 21:30 Glucose (Glutose) 15 gm Q15M PRN BUCCAL DECREASED GLUCOSE; Start 04/13/17 at 21 :30 Ondansetron HCl (Zofran Inj) 4 mg Q6 PRN IV NAUSEA AND/OR VOMITING; Start 04/13 at 21:30 Guaifenesin/ Dextromethorphan (Robitussin Dm Liquid Cup) 5 ml Q4H PRN PO COUGH ; Start 04/15/17 at 16:30 Pantoprazole (Protonix Tab) 40 mg DAILY@06 PO Last administered on 04/18/17 05 :00; Admin Dose 40 MG; Start 04/17/17 at 06:00 Acetaminophen (Tylenol Tab) 500 mg Q6H PRN PO PAIN AND OR ELEVATED TEMP; Start 04/17/17 at 03:00 Magnesium Hydroxide (Milk Of Mag) 30 ml DAILY PRN PO CONSTIPATION; Start at 11:30 CHIOMA ROGERS MD Apr 18, 2017 13:05
[2017-04-18 14:56] VITALS: BP 107/62; RESP 22
--- NOTE | 2017-04-18 15:11 | PN ---
Date/Time of Note Date/Time of Note DATE: 04/18/17 TIME: 14:58 Assessment/Plan VTE Prophylaxis VTE Prophylaxis Intervention: SCD's Lines/Catheters [facility] Saline Lock Urinary Cath still in place: No Assessment/Plan Assessment/Plan 66 years old female presented with weakness and abdominal pain and fever was found to have loculated liver abscess, percutaneous drainage of the liver abscess was performed in radiology department by Dr. Decker. Final culture grew,, gamma hemolytic Streptococcus. While in the hospital patient has developed bilateral pleural effusion more on the right side. Her total protein is 5.2 albumin 2.2., This is a new problem will be addressed by the primary care physician. We will DC the Khan catheter today. Continue antibiotic per infectious disease recommendation. Will get a CT scan of the abdomen with p.o. and IV contrast on Thursday to find out of status of the liver abscess drainage. Subjective 24 Hr Interval Summary Free Text/Dictation Complains of poor appetite. Mild pain in the left lower quadrant. States that if they make the head of the bed flat she is short of breath that she cannot breathe well, in the sitting position on the bed her breathing is okay. Has had a bowel movement today. Maximum temperature 99.1 today. Exam/Review of Systems Vital Signs Vitals Vital Signs Date Time Temp Pulse Resp B/P Pulse Ox O2 Delivery O2 Flow Rate FiO2 04/18/17 14:56 99.1 95 22 107/62 93 04/18/17 08:00 Nasal Cannula 6.0 Intake and Output 04/17/17 04/17/17 04/18/17 15:00 23:00 07:00 Intake Total 540 ml 500 ml 500 ml Output Total 930 ml 720 ml 1000 ml Balance -390 ml -220 ml -500 ml Exam Awake alert oriented 3 is not in acute distress. 81% segmented. Chest x-ray from morning shows fluid in the right pleural space and also left pleural space more on the right side. The MRCP did not show any pathology in the common bile duct or cystic duct but nonspecific thickening of the wall of the gallbladder and also some sludge in the gallbladder. Physical examination: Heart regular lungs decreased breathing sound bases. Abdomen soft mild tenderness left lower quadrant on deep pressure. Pigtail drain in the liver is draining yellowish fluid not serosanguineous, drain 190 cc past 24 hours. Results Result Diagram: 04/18/17 0420 04/18/17 0420 Results 24 hrs Laboratory Tests Test 04/17/17 17:42 04/17/17 21:38 04/18/17 04:20 04/18/17 08:17 Bedside Glucose 131 161 107 White Blood Count 11.6 #H Red Blood Count 3.33 L Hemoglobin 10.3 L Hematocrit 29.0 L Mean Corpuscular Volume 87.1 Mean Corpuscular Hemoglobin 30.9 Mean Corpuscular Hemoglobin Concent 35.5 Red Cell Distribution Width 14.2 Platelet Count 102 #L Mean Platelet Volume 8.4 Neutrophils % 82.6 H Lymphocytes % 11.0 L Monocytes % 4.7 Eosinophils % 0.3 Basophils % 0.1 Nucleated Red Blood Cells % 0.0 Neutrophils # 9.6 H Lymphocytes # 1.3 Monocytes # 0.6 Eosinophils # 0.0 Basophils # 0.0 Nucleated Red Blood Cells # 0.0 Sodium Level 131 L Potassium Level 4.2 Chloride Level 101 Carbon Dioxide Level 27 Anion Gap 7 L Blood Urea Nitrogen 7 Creatinine 0.54 Glucose Level 122 Calcium Level 8.4 Test 04/18/17 11:51 Bedside Glucose 139 Medications Medications Current Medications Piperacillin Sod/ Tazobactam Sod 100 ml @ 200 mls/hr Q8 IVPB Last administered on 04/18/17 13:32; Admin Dose 200 MLS/HR; Start 04/13/17 at 23:30 Linezolid (Zyvox 600mg/D5W (Pmx)) 300 ml @ 300 mls/hr Q12 IVPB Last administered on 04/18/17 08:20; Admin Dose 300 MLS/HR; Start 04/13/17 at 21:00 Diagnostic Test (Pha) (Accu-Chek) 1 ea 02 XX Last administered on 04/15/17 02: 00; Admin Dose 1 EA; Start 04/14/17 at 02:00 Miscellaneous Information 1 ea NOTE XX ; Start 04/13/17 at 21:30 Glucose (Glutose) 15 gm Q15M PRN PO DECREASED GLUCOSE; Start 04/13/17 at 21:30 Glucose (Glutose) 22.5 gm Q15M PRN PO DECREASED GLUCOSE; Start 04/13/17 at 21: 30 Dextrose (D50w Syringe) 25 ml Q15M PRN IV DECREASED GLUCOSE; Start 04/13/17 at 21:30 Dextrose (D50w Syringe) 50 ml Q15M PRN IV DECREASED GLUCOSE; Start 04/13/17 at 21:30 Glucagon (Glucagen) 1 mg Q15M PRN IM DECREASED GLUCOSE; Start 04/13/17 at 21:30 Glucose (Glutose) 15 gm Q15M PRN BUCCAL DECREASED GLUCOSE; Start 04/13/17 at 21 :30 Ondansetron HCl (Zofran Inj) 4 mg Q6 PRN IV NAUSEA AND/OR VOMITING; Start 04/13 at 21:30 Guaifenesin/ Dextromethorphan (Robitussin Dm Liquid Cup) 5 ml Q4H PRN PO COUGH ; Start 04/15/17 at 16:30 Pantoprazole (Protonix Tab) 40 mg DAILY@06 PO Last administered on 04/18/17t 05 :00; Admin Dose 40 MG; Start 04/17/17 at 06:00 Acetaminophen (Tylenol Tab) 500 mg Q6H PRN PO PAIN AND OR ELEVATED TEMP; Start 04/17/17 at 03:00 Magnesium Hydroxide (Milk Of Mag) 30 ml DAILY PRN PO CONSTIPATION; Start at 11:30 JOHN BURGOS MD Apr 18, 2017 15:10
--- NOTE | 2017-04-18 15:23 | CONS ---
Date/Time of Note Date/Time of Note DATE: 04/18/17 TIME: 15:22 Assessment/Plan Assessment/Plan Additional Assessment/Plan 1.Hypotension-borderline not requiring pressors- BETTER BP now - out of ICU,. BP maintained 2.abnl ecg-with ST elevations antertior-negative trop x 3/NL EF by echo. NO CP - con't to optimize Rx now. 3.Liver abscess s/p CT guided drainage - better overall, on therapy with anti- Bx now. DRAIN in place 4.H/O lung ca s/p resection with lung nodules by CT - pulmonary team follows 5.Lung nodules Consultation Date/Type/Reason Admit Date/Time Apr 13, 2017 at 19:51 Initial Consult Date 04/13/17 Type of Consultation: INFECTIOUS DISEASE Referring Provider: DARREL BURT MD 24 HR Interval Summary Free Text/Dictation NO acute events - BP stable - con't Liver Rx ROS: No fever, no chills, no nausea, no vomiting, no diarrhea/constipation No recent weight changes No chest pain, no PND, no orthopnea No dizziness, blurred vision No thirst, no heat or cold intolerance Exam/Review of Systems Vital Signs Vitals Vital Signs Date Time Temp Pulse Resp B/P Pulse Ox O2 Delivery O2 Flow Rate FiO2 04/18/17 14:56 99.1 95 22 107/62 93 04/18/17 08:00 Nasal Cannula 6.0 Intake and Output 04/17/17 04/17/17 04/18/17 15:00 23:00 07:00 Intake Total 540 ml 500 ml 500 ml Output Total 930 ml 720 ml 1000 ml Balance -390 ml -220 ml -500 ml Exam General: WN/WD/NAD, AOx 3 HEENT: Unicetric/atraumatic/EOMI (follow commands) NECK: JVD elevated, no thyromegaly Lymph: no lymphadenopathy HEART: regular with no S3, II/ systolic murmur at apex LUNGS: Coarse sounds ABD: soft, NT, ND, +BS : Intact Neuro: non focal SKIN: chronic changes EXT: trace edema Results Result Diagram: 04/18/17 0420 04/18/17 0420 Results 24 hrs Laboratory Tests Test 04/17/17 17:42 04/17/17 21:38 04/18/17 04:20 04/18/17 08:17 Bedside Glucose 131 161 107 White Blood Count 11.6 #H Red Blood Count 3.33 L Hemoglobin 10.3 L Hematocrit 29.0 L Mean Corpuscular Volume 87.1 Mean Corpuscular Hemoglobin 30.9 Mean Corpuscular Hemoglobin Concent 35.5 Red Cell Distribution Width 14.2 Platelet Count 102 #L Mean Platelet Volume 8.4 Neutrophils % 82.6 H Lymphocytes % 11.0 L Monocytes % 4.7 Eosinophils % 0.3 Basophils % 0.1 Nucleated Red Blood Cells % 0.0 Neutrophils # 9.6 H Lymphocytes # 1.3 Monocytes # 0.6 Eosinophils # 0.0 Basophils # 0.0 Nucleated Red Blood Cells # 0.0 Sodium Level 131 L Potassium Level 4.2 Chloride Level 101 Carbon Dioxide Level 27 Anion Gap 7 L Blood Urea Nitrogen 7 Creatinine 0.54 Glucose Level 122 Calcium Level 8.4 Test 04/18/17 11:51 Bedside Glucose 139 Medications Medications Current Medications Piperacillin Sod/ Tazobactam Sod 100 ml @ 200 mls/hr Q8 IVPB Last administered on 04/18/17 13:32; Admin Dose 200 MLS/HR; Start 04/13/17 at 23:30 Linezolid (Zyvox 600mg/D5W (Pmx)) 300 ml @ 300 mls/hr Q12 IVPB Last administered on 04/18/17 08:20; Admin Dose 300 MLS/HR; Start 04/13/17 at 21:00 Diagnostic Test (Pha) (Accu-Chek) 1 ea 02 XX Last administered on 04/15/17 02: 00; Admin Dose 1 EA; Start 04/14/17 at 02:00 Miscellaneous Information 1 ea NOTE XX ; Start 04/13/17 at 21:30 Glucose (Glutose) 15 gm Q15M PRN PO DECREASED GLUCOSE; Start 04/13/17 at 21:30 Glucose (Glutose) 22.5 gm Q15M PRN PO DECREASED GLUCOSE; Start 04/13/17 at 21: 30 Dextrose (D50w Syringe) 25 ml Q15M PRN IV DECREASED GLUCOSE; Start 04/13/17 at 21:30 Dextrose (D50w Syringe) 50 ml Q15M PRN IV DECREASED GLUCOSE; Start 04/13/17 at 21:30 Glucagon (Glucagen) 1 mg Q15M PRN IM DECREASED GLUCOSE; Start 04/13/17 at 21:30 Glucose (Glutose) 15 gm Q15M PRN BUCCAL DECREASED GLUCOSE; Start 04/13/17 at 21 :30 Ondansetron HCl (Zofran Inj) 4 mg Q6 PRN IV NAUSEA AND/OR VOMITING; Start 04/13 at 21:30 Guaifenesin/ Dextromethorphan (Robitussin Dm Liquid Cup) 5 ml Q4H PRN PO COUGH ; Start 04/15/17 at 16:30 Pantoprazole (Protonix Tab) 40 mg DAILY@06 PO Last administered on 04/18/17t 05 :00; Admin Dose 40 MG; Start 04/17/17 at 06:00 Acetaminophen (Tylenol Tab) 500 mg Q6H PRN PO PAIN AND OR ELEVATED TEMP; Start 04/17/17 at 03:00 Magnesium Hydroxide (Milk Of Mag) 30 ml DAILY PRN PO CONSTIPATION; Start at 11:30 JAIME BULLARD MD Apr 18, 2017 15:23
[2017-04-18] MEDS: AMPICILLIN/SULB 1.5GM/NS (PMX) 50 ML IVPB SCH ×2 (17:08→23:22)
--- NOTE | 2017-04-18 18:12 | CONS ---
Date/Time of Note Date/Time of Note DATE: 04/18/17 TIME: 18:09 Assessment/Plan Assessment/Plan Additional Assessment/Plan IMP: 1. Mild Hypoxemic Resp Insufficiency: likely due to increasing effusions due to volume/3rd spacing vs. sympathetic right effusion related to the liver abscesses RECS: 1. CT chest non contrast 2. Gentle diuresis 3. Strict I/Os'; daily weights Consultation Date/Type/Reason Admit Date/Time Apr 13, 2017 at 19:51 Type of Consultation: Pulm Hx of Present Illness 66-year-old female with a history of colon/rectal ca presenting with sepsis due to liver abscesses, whose course has been complicated by mild hypoxemic resp insufficiency with enlarging R.> L effusions. Constitutional: no complaints, requiring O2 Eyes: no complaints ENT: no complaints Respiratory: no complaints Cardiovascular: no complaints Gastrointestinal: pain Genitourinary: no complaints Musculoskeletal: no complaints Skin: no complaints Neurologic: no complaints Psychological: no complaints Past Medical History Medical History: no pertinent history, cancer, other (Colon cancer) Past Surgical History Past Surgical Hx: other (s/p surgery for colon CA ) Family History Significant Family History: no pertinent family hx Social History Alcohol Use: none Smoking Status: Never smoker Drug Use: none Exam/Review of Systems Vital Signs Vitals Vital Signs Date Time Temp Pulse Resp B/P Pulse Ox O2 Delivery O2 Flow Rate FiO2 04/18/17 14:56 99.1 95 22 107/62 93 04/18/17 08:00 Nasal Cannula 6.0 Intake and Output 04/17/17 04/17/17 04/18/17 15:00 23:00 07:00 Intake Total 540 ml 500 ml 500 ml Output Total 930 ml 720 ml 1000 ml Balance -390 ml -220 ml -500 ml Exam Constitutional: alert Psych: no complaints Eyes: EOMI, nl conjunctiva, nl sclera ENMT: mucosa pink and moist, nl external ears & nose Neck: non-tender, supple Respiratory: diminished breath sounds Cardiovascular: nl pulses, regular rate and rhythm Gastrointestinal: nl liver, spleen, soft Musculoskeletal: nl extremities to inspection, nl gait and stance Extremities: normal pulses Results Result Diagram: 04/18/170 04/18/17419 Results 24 hrs Laboratory Tests Test 04/17/17 21:38 04/18/17 04:20 04/18/17 08:17 04/18/17 11:51 Bedside Glucose 161 107 139 White Blood Count 11.6 #H Red Blood Count 3.33 L Hemoglobin 10.3 L Hematocrit 29.0 L Mean Corpuscular Volume 87.1 Mean Corpuscular Hemoglobin 30.9 Mean Corpuscular Hemoglobin Concent 35.5 Red Cell Distribution Width 14.2 Platelet Count 102 #L Mean Platelet Volume 8.4 Neutrophils % 82.6 H Lymphocytes % 11.0 L Monocytes % 4.7 Eosinophils % 0.3 Basophils % 0.1 Nucleated Red Blood Cells % 0.0 Neutrophils # 9.6 H Lymphocytes # 1.3 Monocytes # 0.6 Eosinophils # 0.0 Basophils # 0.0 Nucleated Red Blood Cells # 0.0 Sodium Level 131 L Potassium Level 4.2 Chloride Level 101 Carbon Dioxide Level 27 Anion Gap 7 L Blood Urea Nitrogen 7 Creatinine 0.54 Glucose Level 122 Calcium Level 8.4 Test 04/18/17 16:56 Bedside Glucose 116 Medications Medications Current Medications Linezolid (Zyvox 600mg/D5W (Pmx)) 300 ml @ 300 mls/hr Q12 IVPB Last administered on 04/18/17 08:20; Admin Dose 300 MLS/HR; Start 04/13/17 at 21:00 Diagnostic Test (Pha) (Accu-Chek) 1 ea 02 XX Last administered on 04/15/17 02: 00; Admin Dose 1 EA; Start 04/14/17 at 02:00 Miscellaneous Information 1 ea NOTE XX ; Start 04/13/17 at 21:30 Glucose (Glutose) 15 gm Q15M PRN PO DECREASED GLUCOSE; Start 04/13/17 at 21:30 Glucose (Glutose) 22.5 gm Q15M PRN PO DECREASED GLUCOSE; Start 04/13/17 at 21: 30 Dextrose (D50w Syringe) 25 ml Q15M PRN IV DECREASED GLUCOSE; Start 04/13/17 at 21:30 Dextrose (D50w Syringe) 50 ml Q15M PRN IV DECREASED GLUCOSE; Start 04/13/17 at 21:30 Glucagon (Glucagen) 1 mg Q15M PRN IM DECREASED GLUCOSE; Start 04/13/17 at 21:30 Glucose (Glutose) 15 gm Q15M PRN BUCCAL DECREASED GLUCOSE; Start 04/13/17 at 21 :30 Ondansetron HCl (Zofran Inj) 4 mg Q6 PRN IV NAUSEA AND/OR VOMITING; Start 04/13 at 21:30 Guaifenesin/ Dextromethorphan (Robitussin Dm Liquid Cup) 5 ml Q4H PRN PO COUGH ; Start 04/15/17 at 16:30 Pantoprazole (Protonix Tab) 40 mg DAILY@06 PO Last administered on 04/18/17 05 :00; Admin Dose 40 MG; Start 04/17/17 at 06:00 Acetaminophen (Tylenol Tab) 500 mg Q6H PRN PO PAIN AND OR ELEVATED TEMP; Start 04/17/17 at 03:00 Magnesium Hydroxide 30 ml 30 ml DAILY PRN PO CONSTIPATION; Start 04/17/17 at 11 :30 Ampicillin Sodium/ Sulbactam Sodium (Unasyn 1.5gm/NS (Pmx)) 50 ml @ 100 mls/hr Q6 IVPB Last administered on 04/18/17 17:08; Admin Dose 100 MLS/HR; Start at 18:00 LAUREN COELHO MD Apr 18, 2017 18:12
--- NOTE | 2017-04-18 18:29 | CONS ---
Date/Time of Note Date/Time of Note DATE: 04/18/17 TIME: 18:26 Assessment/Plan Assessment/Plan Chief Complaint/Hosp Course Problems: Additional Assessment/Plan 1. Acute hyponatremia 2/2 Hypovolemic hyponatremia 2. sepsis due to liver abscess 3. Hepatic abscess oN CT scan s/p CT guided drainage on 04/15/17 4. Acute transaminitis 5. h/o Colon CA s/p previous Surgery 6. Hypokalemia Plan : Wound cx grew hemolytic steptococci, Continue IV abx Unasyn and Linezolid, Na 131 today monitor electrolytes and renal function watch for metabolic acidosis since pt has been getting iV zyvox will follow up Consultation Date/Type/Reason Admit Date/Time Apr 13, 2017 at 19:51 Initial Consult Date 04/13/17 Type of Consultation: NEPHROLOGY Referring Provider: DARREL BURT MD 24 HR Interval Summary Free Text/Dictation Na 131, BP stable,a febrile Exam/Review of Systems Vital Signs Vitals Vital Signs Date Time Temp Pulse Resp B/P Pulse Ox O2 Delivery O2 Flow Rate FiO2 04/18/17 16:00 98.7 04/18/17 14:56 95 22 107/62 93 04/18/17 08:00 Nasal Cannula 6.0 Intake and Output 04/17/17 04/17/17 04/18/17 15:00 23:00 07:00 Intake Total 540 ml 500 ml 500 ml Output Total 930 ml 720 ml 1000 ml Balance -390 ml -220 ml -500 ml Exam Constitutional: alert weak, confused Respiratory: clear to auscultation, normal air movement Cardiovascular: nl pulses, regular rate and rhythm Gastrointestinal: non-tender, soft, + drain in place Extremities: normal pulses 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: 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-XII 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, 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, nl speech, nl strength Results Result Diagram: 04/18/1741904/18/17419 Results 24 hrs Laboratory Tests Test 04/17/17 21:38 04/18/17 04:20 04/18/17 08:17 04/18/17 11:51 Bedside Glucose 161 107 139 White Blood Count 11.6 #H Red Blood Count 3.33 L Hemoglobin 10.3 L Hematocrit 29.0 L Mean Corpuscular Volume 87.1 Mean Corpuscular Hemoglobin 30.9 Mean Corpuscular Hemoglobin Concent 35.5 Red Cell Distribution Width 14.2 Platelet Count 102 #L Mean Platelet Volume 8.4 Neutrophils % 82.6 H Lymphocytes % 11.0 L Monocytes % 4.7 Eosinophils % 0.3 Basophils % 0.1 Nucleated Red Blood Cells % 0.0 Neutrophils # 9.6 H Lymphocytes # 1.3 Monocytes # 0.6 Eosinophils # 0.0 Basophils # 0.0 Nucleated Red Blood Cells # 0.0 Sodium Level 131 L Potassium Level 4.2 Chloride Level 101 Carbon Dioxide Level 27 Anion Gap 7 L Blood Urea Nitrogen 7 Creatinine 0.54 Glucose Level 122 Calcium Level 8.4 Test 04/18/17 16:56 Bedside Glucose 116 Medications Medications Current Medications Linezolid (Zyvox 600mg/D5W (Pmx)) 300 ml @ 300 mls/hr Q12 IVPB Last administered on 04/18/17 08:20; Admin Dose 300 MLS/HR; Start 04/13/17 at 21:00 Diagnostic Test (Pha) (Accu-Chek) 1 ea 02 XX Last administered on 04/15/17 02: 00; Admin Dose 1 EA; Start 04/14/17 at 02:00 Miscellaneous Information 1 ea NOTE XX ; Start 04/13/17 at 21:30 Glucose (Glutose) 15 gm Q15M PRN PO DECREASED GLUCOSE; Start 04/13/17 at 21:30 Glucose (Glutose) 22.5 gm Q15M PRN PO DECREASED GLUCOSE; Start 04/13/17 at 21: 30 Dextrose (D50w Syringe) 25 ml Q15M PRN IV DECREASED GLUCOSE; Start 04/13/17 at 21:30 Dextrose (D50w Syringe) 50 ml Q15M PRN IV DECREASED GLUCOSE; Start 04/13/17 at 21:30 Glucagon (Glucagen) 1 mg Q15M PRN IM DECREASED GLUCOSE; Start 04/13/17 at 21:30 Glucose (Glutose) 15 gm Q15M PRN BUCCAL DECREASED GLUCOSE; Start 04/13/17 at 21 :30 Ondansetron HCl (Zofran Inj) 4 mg Q6 PRN IV NAUSEA AND/OR VOMITING; Start 04/13 at 21:30 Guaifenesin/ Dextromethorphan (Robitussin Dm Liquid Cup) 5 ml Q4H PRN PO COUGH ; Start 04/15/17 at 16:30 Pantoprazole (Protonix Tab) 40 mg DAILY@06 PO Last administered on 04/18/17 05 :00; Admin Dose 40 MG; Start 04/17/17 at 06:00 Acetaminophen (Tylenol Tab) 500 mg Q6H PRN PO PAIN AND OR ELEVATED TEMP; Start 04/17/17 at 03:00 Magnesium Hydroxide 30 ml 30 ml DAILY PRN PO CONSTIPATION; Start 04/17/17 at 11 :30 Ampicillin Sodium/ Sulbactam Sodium (Unasyn 1.5gm/NS (Pmx)) 50 ml @ 100 mls/hr Q6 IVPB Last administered on 04/18/17 17:08; Admin Dose 100 MLS/HR; Start at 18:00 Furosemide (Lasix) 20 mg DAILY@06 IV ; Start 04/18/17 at 18:30 NGOC GARZA MD Apr 18, 2017 18:29
[2017-04-18] MEDS: FUROSEMIDE 20 MG INJ IV SCH (18:55)
[2017-04-18 20:05] VITALS: BP 96/61; RESP 20
[2017-04-18 22:50] VITALS: BP 117/75; PULSE 90
[2017-04-18] MEDS: ACCU-CHEK XX SCH (23:21)
[2017-04-19 02:01] VITALS: BP 101/67; RESP 18
[2017-04-19] MEDS: PANTOPRAZOLE (EC) 40 MG TAB PO SCH (05:08)
[2017-04-19] MEDS: FUROSEMIDE 20 MG INJ IV SCH (05:08)
[2017-04-19] MEDS: AMPICILLIN/SULB 1.5GM/NS (PMX) 50 ML IVPB SCH ×3 (05:09→17:43)
[2017-04-19] MEDS: Insulin NOVOLOG SS MILD Algorithm (SS with meals and bedtime) SC SCH ×4 (07:30→20:25)
[2017-04-19 08:09] VITALS: BP 106/59; RESP 19
[2017-04-19] MEDS: LINEZOLID 600 MG/D5W (PMX) 300 ML IVPB SCH ×2 (09:22→20:25)
--- NOTE | 2017-04-19 10:43 | CONS ---
Date/Time of Note Date/Time of Note DATE: 04/19/17 TIME: 10:40 Assessment/Plan Assessment/Plan Additional Assessment/Plan - Bilateral Pleural effusion- c/o SOB - pulmonary recommended- dw staff - per pulmonary - Severe sepsis 2/2 to liver abscess - WBC trending down - Liver abscess s/p CT guided drainage 04/15/2017 - Hypotension - improved with IVF - Normocytic anemia requiring blood transfusion - Coagulopathy - improved - Transaminitis - slowly improving - Hyponatremia on admission - resolved - CoNS in urine culture with trivial pyuria, likely contaminant; pt asymptomatic - Hx of rectal CA s/p Low anterior resection 08/29/2016 Recommendations: - continue linezolid and pip/tazo (04/13/2017-); will adjust antibiotics based on wound culture results - pending: CT guided drainage C&S Management d/w patient, RN Isaura, and Dr. Diana Consultation Date/Type/Reason Admit Date/Time Apr 13, 2017 at 19:51 Initial Consult Date 04/15/17 Type of Consultation: NEPHROLOGY Referring Provider: DARREL BURT MD 24 HR Interval Summary Free Text/Dictation afebrile, shortness of breath on exertion- pulmonary follows, dw staff Constitutional: improved, requiring IVF, requiring O2 Exam/Review of Systems Vital Signs Vitals Vital Signs Date Time Temp Pulse Resp B/P Pulse Ox O2 Delivery O2 Flow Rate FiO2 04/19/17 08:09 97.6 87 19 106/59 96 04/19/17 04:40 5.0 04/18/17 22:30 Nasal Cannula Intake and Output 04/18/17 04/18/17 04/19/17 15:00 23:00 07:00 Intake Total 400 ml 970 ml 550 ml Output Total 1380 ml 2380 ml Balance 400 ml -410 ml -1830 ml Exam Constitutional: alert, frail, oriented Respiratory: diminished breath sounds Cardiovascular: nl pulses Gastrointestinal: soft, tender Musculoskeletal: nl extremities to inspection Extremities: normal pulses 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: 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 Results Result Diagram: 04/18/1741904/18/17419 Results 24 hrs Laboratory Tests Test 04/18/17 11:51 04/18/17 16:56 04/18/17 20:19 04/19/17 08:10 Bedside Glucose 139 116 123 119 Medications Medications Current Medications Linezolid (Zyvox 600mg/D5W (Pmx)) 300 ml @ 300 mls/hr Q12 IVPB Last administered on 04/19/17 09:22; Admin Dose 300 MLS/HR; Start 04/13/17 at 21:00 Diagnostic Test (Pha) (Accu-Chek) 1 ea 02 XX Last administered on 04/15/17 02: 00; Admin Dose 1 EA; Start 04/14/17 at 02:00 Miscellaneous Information 1 ea NOTE XX ; Start 04/13/17 at 21:30 Glucose (Glutose) 15 gm Q15M PRN PO DECREASED GLUCOSE; Start 04/13/17 at 21:30 Glucose (Glutose) 22.5 gm Q15M PRN PO DECREASED GLUCOSE; Start 04/13/17 at 21: 30 Dextrose (D50w Syringe) 25 ml Q15M PRN IV DECREASED GLUCOSE; Start 04/13/17 at 21:30 Dextrose (D50w Syringe) 50 ml Q15M PRN IV DECREASED GLUCOSE; Start 04/13/17 at 21:30 Glucagon (Glucagen) 1 mg Q15M PRN IM DECREASED GLUCOSE; Start 04/13/17 at 21:30 Glucose (Glutose) 15 gm Q15M PRN BUCCAL DECREASED GLUCOSE; Start 04/13/17 at 21 :30 Ondansetron HCl (Zofran Inj) 4 mg Q6 PRN IV NAUSEA AND/OR VOMITING; Start 04/13 at 21:30 Guaifenesin/ Dextromethorphan (Robitussin Dm Liquid Cup) 5 ml Q4H PRN PO COUGH Last administered on 04/19/17 05:09; Admin Dose 5 ML; Start 04/15/17 at 16:30 Pantoprazole (Protonix Tab) 40 mg DAILY@06 PO Last administered on 04/19/17 05 :08; Admin Dose 40 MG; Start 04/17/17 at 06:00 Acetaminophen (Tylenol Tab) 500 mg Q6H PRN PO PAIN AND OR ELEVATED TEMP; Start 04/17/17 at 03:00 Magnesium Hydroxide 30 ml 30 ml DAILY PRN PO CONSTIPATION; Start 04/17/17 at 11 :30 Ampicillin Sodium/ Sulbactam Sodium (Unasyn 1.5gm/NS (Pmx)) 50 ml @ 100 mls/hr Q6 IVPB Last administered on 04/19/17 05:09; Admin Dose 100 MLS/HR; Start at 18:00 Furosemide (Lasix) 20 mg DAILY@06 IV Last administered on 04/19/17 05:08; Admin Dose 20 MG; Start 04/18/17 at 18:30 MESHA VELASQUEZ Apr 19, 2017 10:43
--- NOTE | 2017-04-19 12:53 | CONS ---
Date/Time of Note Date/Time of Note DATE: 04/19/17 TIME: 12:51 Assessment/Plan Assessment/Plan Additional Assessment/Plan 1.Hypotension-borderline not requiring pressors- BETTER BP now - out of ICU,. BP maintained - BETTER now, con't med rx 2.abnl ecg-with ST elevations antertior-negative trop x 3/NL EF by echo. NO CP - con't to optimize Rx now. 3.Liver abscess s/p CT guided drainage - better overall, on therapy with anti- Bx now. DRAIN in place - still some discomfort noted 4.H/O lung ca s/p resection with lung nodules by CT - pulmonary team follows 5.Lung nodules - primary follows Consultation Date/Type/Reason Admit Date/Time Apr 13, 2017 at 19:51 Initial Consult Date 04/13/17 Type of Consultation: NEPHROLOGY Referring Provider: DARREL BURT MD 24 HR Interval Summary Free Text/Dictation NO acute events - pt better overall. ROS: No fever, no chills, no nausea, no vomiting, no diarrhea/constipation No recent weight changes No chest pain, no PND, no orthopnea No dizziness, blurred vision No thirst, no heat or cold intolerance Exam/Review of Systems Vital Signs Vitals Vital Signs Date Time Temp Pulse Resp B/P Pulse Ox O2 Delivery O2 Flow Rate FiO2 04/19/17 09:00 Nasal Cannula 6.0 04/19/17 08:09 97.6 87 19 106/59 96 Intake and Output 04/18/17 04/18/17 04/19/17 15:00 23:00 07:00 Intake Total 400 ml 970 ml 550 ml Output Total 1380 ml 2380 ml Balance 400 ml -410 ml -1830 ml Exam General: WN/WD/NAD, AOx 3 HEENT: Unicetric/atraumatic/EOMI (follow commands) NECK: JVD elevated, no thyromegaly Lymph: no lymphadenopathy HEART: regular with no S3, II/ systolic murmur at apex LUNGS: Coarse sounds ABD: soft, NT, ND, +BS : Intact Neuro: non focal SKIN: chronic changes EXT: trace edema Results Result Diagram: 04/18/1741904/18/17 042 Results 24 hrs Laboratory Tests Test 04/18/17 16:56 04/18/17 20:19 04/19/17 08:10 04/19/17 11:41 Bedside Glucose 116 123 119 149 Medications Medications Current Medications Linezolid (Zyvox 600mg/D5W (Pmx)) 300 ml @ 300 mls/hr Q12 IVPB Last administered on 04/19/17 09:22; Admin Dose 300 MLS/HR; Start 04/13/17 at 21:00 Diagnostic Test (Pha) (Accu-Chek) 1 ea 02 XX Last administered on 04/15/17 02: 00; Admin Dose 1 EA; Start 04/14/17 at 02:00 Miscellaneous Information 1 ea NOTE XX ; Start 04/13/17 at 21:30 Glucose (Glutose) 15 gm Q15M PRN PO DECREASED GLUCOSE; Start 04/13/17 at 21:30 Glucose (Glutose) 22.5 gm Q15M PRN PO DECREASED GLUCOSE; Start 04/13/17 at 21: 30 Dextrose (D50w Syringe) 25 ml Q15M PRN IV DECREASED GLUCOSE; Start 04/13/17 at 21:30 Dextrose (D50w Syringe) 50 ml Q15M PRN IV DECREASED GLUCOSE; Start 04/13/17 at 21:30 Glucagon (Glucagen) 1 mg Q15M PRN IM DECREASED GLUCOSE; Start 04/13/17 at 21:30 Glucose (Glutose) 15 gm Q15M PRN BUCCAL DECREASED GLUCOSE; Start 04/13/17 at 21 :30 Ondansetron HCl (Zofran Inj) 4 mg Q6 PRN IV NAUSEA AND/OR VOMITING; Start 04/13 at 21:30 Guaifenesin/ Dextromethorphan (Robitussin Dm Liquid Cup) 5 ml Q4H PRN PO COUGH Last administered on 04/19/17 05:09; Admin Dose 5 ML; Start 04/15/17 at 16:30 Pantoprazole (Protonix Tab) 40 mg DAILY@06 PO Last administered on 04/19/17 05 :08; Admin Dose 40 MG; Start 04/17/17 at 06:00 Acetaminophen (Tylenol Tab) 500 mg Q6H PRN PO PAIN AND OR ELEVATED TEMP; Start 04/17/17 at 03:00 Magnesium Hydroxide 30 ml 30 ml DAILY PRN PO CONSTIPATION; Start 04/17/17 at 11 :30 Ampicillin Sodium/ Sulbactam Sodium (Unasyn 1.5gm/NS (Pmx)) 50 ml @ 100 mls/hr Q6 IVPB Last administered on 04/19/17 11:37; Admin Dose 100 MLS/HR; Start at 18:00 Furosemide (Lasix) 20 mg DAILY@06 IV Last administered on 04/19/17 05:08; Admin Dose 20 MG; Start 04/18/17 at 18:30 JAIME BULLARD MD Apr 19, 2017 12:53
[2017-04-19] MEDS ORDERED: IOHEXOL 14.3 MG(I)/ML (ADULT) BTL PO ONE (13:00)
[2017-04-19] MEDS ORDERED: BARIUM SULF 2% 450 ML BTL (BERRY SMOOTHIE) PO ONE (13:00)
--- NOTE | 2017-04-19 13:06 | PN ---
Date/Time of Note Date/Time of Note DATE: 04/19/17 TIME: 13:06 Assessment/Plan VTE Prophylaxis VTE Prophylaxis Intervention: other Lines/Catheters IV Catheter Type (from [facility]): Sal[facility] Lock Urinary Cath still in place: No Assessment/Plan Chief Complaint/Hosp Course - Hepatic abscess-12.4 x 9.2 x 11.1 cm,per CT. SP drainage of Abcess- 04/14. Surgical drain noted. - GI consult- Dr English - per Surgery consult -- Hypotension - NS 500CC X1 Bolus , cont to monitor - Anemia - sp 1 UNIT PRBC - monitor CBC am - Chest pain-none at present - admit to Tele - Cardiology consult- Dr Hendrickson notified - Sepsis - ID consult- Dr Diana notified - On Zosyn, Zyvox - Transaminitis - NPO, IVF - per GI -Coagulopathy- Monitor labs - Hyponatremia Na 129 - Nephro consult- Dr Ruel Espino notified - IVF- NS at 60 cc/hr - Pre DM - Glycemic control - Dietary consult - Cachexia - Dietary consult - Hx Rectal cancer status post low anterior resection. Problems: Subjective 24 Hr Interval Summary Free Text/Dictation Patient has no complaints Exam/Review of Systems Vital Signs Vitals Vital Signs Date Time Temp Pulse Resp B/P Pulse Ox O2 Delivery O2 Flow Rate FiO2 04/19/17 09:00 Nasal Cannula 6.0 04/19/17 08:09 97.6 87 19 106/59 96 Intake and Output 04/18/17 04/18/17 04/19/17 15:00 23:00 07:00 Intake Total 400 ml 970 ml 550 ml Output Total 1380 ml 2380 ml Balance 400 ml -410 ml -1830 ml Exam Constitutional: well developed Head: atraumatic, normocephalic Neck: supple Respiratory: clear to auscultation Cardiovascular: regular rate and rhythm Gastrointestinal: non-tender, soft Extremities: normal pulses Results Result Diagram: 04/18/1741904/18/17419 Results 24 hrs Laboratory Tests Test 04/18/17 16:56 04/18/17 20:19 04/19/17 08:10 04/19/17 11:41 Bedside Glucose 116 123 119 149 Medications Medications Current Medications Linezolid (Zyvox 600mg/D5W (Pmx)) 300 ml @ 300 mls/hr Q12 IVPB Last administered on 04/19/17 09:22; Admin Dose 300 MLS/HR; Start 04/13/17 at 21:00 Diagnostic Test (Pha) (Accu-Chek) 1 ea 02 XX Last administered on 04/15/17 02: 00; Admin Dose 1 EA; Start 04/14/17 at 02:00 Miscellaneous Information 1 ea NOTE XX ; Start 04/13/17 at 21:30 Glucose (Glutose) 15 gm Q15M PRN PO DECREASED GLUCOSE; Start 04/13/17 at 21:30 Glucose (Glutose) 22.5 gm Q15M PRN PO DECREASED GLUCOSE; Start 04/13/17 at 21: 30 Dextrose (D50w Syringe) 25 ml Q15M PRN IV DECREASED GLUCOSE; Start 04/13/17 at 21:30 Dextrose (D50w Syringe) 50 ml Q15M PRN IV DECREASED GLUCOSE; Start 04/13/17 at 21:30 Glucagon (Glucagen) 1 mg Q15M PRN IM DECREASED GLUCOSE; Start 04/13/17 at 21:30 Glucose (Glutose) 15 gm Q15M PRN BUCCAL DECREASED GLUCOSE; Start 04/13/17 at 21 :30 Ondansetron HCl (Zofran Inj) 4 mg Q6 PRN IV NAUSEA AND/OR VOMITING; Start 04/13 at 21:30 Guaifenesin/ Dextromethorphan (Robitussin Dm Liquid Cup) 5 ml Q4H PRN PO COUGH Last administered on 04/19/17 05:09; Admin Dose 5 ML; Start 04/15/17 at 16:30 Pantoprazole (Protonix Tab) 40 mg DAILY@06 PO Last administered on 04/19/17 05 :08; Admin Dose 40 MG; Start 04/17/17 at 06:00 Acetaminophen (Tylenol Tab) 500 mg Q6H PRN PO PAIN AND OR ELEVATED TEMP; Start 04/17/17 at 03:00 Magnesium Hydroxide 30 ml 30 ml DAILY PRN PO CONSTIPATION; Start 04/17/17 at 11 :30 Ampicillin Sodium/ Sulbactam Sodium (Unasyn 1.5gm/NS (Pmx)) 50 ml @ 100 mls/hr Q6 IVPB Last administered on 04/19/17 11:37; Admin Dose 100 MLS/HR; Start at 18:00 Furosemide (Lasix) 20 mg DAILY@06 IV Last administered on 04/19/17t 05:08; Admin Dose 20 MG; Start 04/18/17 at 18:30 PILAR FARMER Apr 19, 2017 13:06
[2017-04-19 14:57] VITALS: BP 113/61; RESP 20
--- NOTE | 2017-04-19 16:17 | RADRPT ---
PROCEDURE: CT Chest without contrast. CLINICAL INDICATION: Pleural effusions and consolidation, follow-up. TECHNIQUE: Multiple contiguous helical CT images of the chest were obtained without the administra tion of intravenous contrast. Coronal and sagittal reformatted images were obtained from the source images. CTDIvol (mGy): 10.10; Total Exam DLP (mGy-cm): 346.75. One or more of the following dose reduction techniques were utilized: - Automated exposure control. - Adjustment of the mA and/or kV according to patient size. - Use of iterative reconstruction technique. COMPARISON: Chest x-ray 04/18/2017. MRI abdomen 04/17/2017. CT drainage 04/15/2017. CT abdomen/pel vis 04/13/2017. FINDINGS: Limited imaging of the lower neck demonstrates heterogeneity of the thyroid gland. The heart is not enlarged. Trace pericardial fluid is observed. There is no mediastinal, hilar or axillary lymphadenopathy. The thoracic aorta is normal in caliber. The pulmonary arteries are not enlarged. There is a large layering right pleural effusion, which has increased. A small layering left pleural effusion has also increased. Consolidation is seen within the dependent portions of the bilateral l ower lobes. Subsegmental atelectasis is seen within the lingula. The tracheobronchial tree is normal in caliber. Limited imaging of the upper abdomen demonstrates a percutaneous drainage catheter within a large ab scess within the liver. Grossly the abscess has decreased in size status post drainage. Dominant loc ules of fluid persist. Degenerative changes of the thoracic spine are present. Chest wall soft tissues are unremarkable. IMPRESSION: Large right and small left layering pleural effusions, increased. Consolidation within the dependent portions of the bilateral lower lobes which may reflect a combina tion of atelectasis and airspace disease. Subsegmental atelectasis is seen within the lingula. Large hepatic abscess with percutaneous drainage catheter in place. RPTAT: HLST .Neha Smith MD, Date Time Electronically viewed and signed by .Neha Smith MD, MD on 04/19/2017 16:17 .T/
--- NOTE | 2017-04-19 17:34 | CONS ---
Date/Time of Note Date/Time of Note DATE: 04/19/17 TIME: 17:32 Consult Date/Type/Reason Admit Date/Time Apr 13, 2017 at 19:51 Initial Consult Date 04/15/17 Type of Consultation: Pulm Ordering Provider: DARREL BURT MD Subjective Increased O2 requirement noted. CT chest reviewed Objective Vital Signs Date Time Temp Pulse Resp B/P Pulse Ox O2 Delivery O2 Flow Rate FiO2 04/19/17 14:57 98.1 92 20 113/61 98 04/19/17 09:00 Nasal Cannula 6.0 Intake and Output 04/18/17 04/18/17 04/19/17 14:59 22:59 06:59 Intake Total 400 ml 970 ml 550 ml Output Total 1380 ml 2380 ml Balance 400 ml -410 ml -1830 ml Exam HEENT: Neck supple; no JVD; no LAD CVS: RRR, S1 and S2 CHEST: Decreased BS R > L base ABD: Soft, NT, + BS EXT: No c/c/e Results/Medications Result Diagram: 04/18/17 0420 04/18/17 0420 Results 24 hrs Laboratory Tests Test 04/18/17 20:19 04/19/17 08:10 04/19/17 11:41 04/19/17 16:55 Bedside Glucose 123 119 149 131 Medications Current Medications Linezolid (Zyvox 600mg/D5W (Pmx)) 300 ml @ 300 mls/hr Q12 IVPB Last administered on 04/19/17 09:22; Admin Dose 300 MLS/HR; Start 04/13/17 at 21:00 Diagnostic Test (Pha) (Accu-Chek) 1 ea 02 XX Last administered on 04/15/17 02: 00; Admin Dose 1 EA; Start 04/14/17 at 02:00 Miscellaneous Information 1 ea NOTE XX ; Start 04/13/17 at 21:30 Glucose (Glutose) 15 gm Q15M PRN PO DECREASED GLUCOSE; Start 04/13/17 at 21:30 Glucose (Glutose) 22.5 gm Q15M PRN PO DECREASED GLUCOSE; Start 04/13/17 at 21: 30 Dextrose (D50w Syringe) 25 ml Q15M PRN IV DECREASED GLUCOSE; Start 04/13/17 at 21:30 Dextrose (D50w Syringe) 50 ml Q15M PRN IV DECREASED GLUCOSE; Start 04/13/17 at 21:30 Glucagon (Glucagen) 1 mg Q15M PRN IM DECREASED GLUCOSE; Start 04/13/17 at 21:30 Glucose (Glutose) 15 gm Q15M PRN BUCCAL DECREASED GLUCOSE; Start 04/13/17 at 21 :30 Ondansetron HCl (Zofran Inj) 4 mg Q6 PRN IV NAUSEA AND/OR VOMITING; Start 04/13 at 21:30 Guaifenesin/ Dextromethorphan (Robitussin Dm Liquid Cup) 5 ml Q4H PRN PO COUGH Last administered on 04/19/17 05:09; Admin Dose 5 ML; Start 04/15/17 at 16:30 Pantoprazole (Protonix Tab) 40 mg DAILY@06 PO Last administered on 04/19/17 05 :08; Admin Dose 40 MG; Start 04/17/17 at 06:00 Acetaminophen (Tylenol Tab) 500 mg Q6H PRN PO PAIN AND OR ELEVATED TEMP; Start 04/17/17 at 03:00 Magnesium Hydroxide 30 ml 30 ml DAILY PRN PO CONSTIPATION; Start 04/17/17 at 11 :30 Ampicillin Sodium/ Sulbactam Sodium (Unasyn 1.5gm/NS (Pmx)) 50 ml @ 100 mls/hr Q6 IVPB Last administered on 04/19/17 11:37; Admin Dose 100 MLS/HR; Start at 18:00 Furosemide (Lasix) 20 mg DAILY@06 IV Last administered on 04/19/17 05:08; Admin Dose 20 MG; Start 04/18/17 at 18:30 Assessment/Plan Chief Complaint/Hosp Course 66-year-old female with a history of colon/rectal ca presenting with sepsis due to liver abscesses, whose course has been complicated by mild hypoxemic resp insufficiency with enlarging R.> L effusions. Problems: Additional Assessment/Plan IMP: 1. Mild Hypoxemic Resp Insufficiency: likely due to increasing effusions due to volume/3rd spacing vs. sympathetic right effusion related to the liver abscesses RECS: 1. U/S guided right thoracentesis 2. Gentle diuresis 3. Strict I/Os'; daily weights LAUREN COELHO MD Apr 19, 2017 17:34
[2017-04-19 20:20] VITALS: BP 102/61; RESP 18
[2017-04-19] MEDS: ACCU-CHEK XX SCH (20:26)
[2017-04-20] MEDS: AMPICILLIN/SULB 1.5GM/NS (PMX) 50 ML IVPB SCH ×4 (00:48→17:08)
[2017-04-20 02:45] VITALS: BP 98/59; RESP 18
--- NOTE | 2017-04-20 03:41 | PN ---
DATE: 04/19/2017 SUBJECTIVE DATA: No associated complaints. States that the sedation is just slightly better. Passing gas. No bowel movement. OBJECTIVE DATA: VITAL SIGNS: Temperature 97.6. Heart rate 87 and regular. Respirations 19. Blood pressure 106/59. Saturation 96% on 5 L of nasal cannula. GENERAL: Awake, alert, oriented x3, lying down in the bed in somewhat sitting position. RESPIRATORY: Decrease breathing sounds on bases, mainly on the right side. ABDOMEN: Soft. Bowel sounds present. No tenderness. LABORATORY AND DIAGNOSTIC DATA: WBC has decreased to 11,600 with 82% segmented. Hemoglobin 10.3, hematocrit 29. Platelet count has dropped to 102. Chemistry: Blood sugar 104.9. I and O: The accordion drain through PICC line which is in the osseous cavity in the past 24 hours has drained 200 mL. Since 7 a.m. until now at 12:00, there is almost 5 mL of drainage. It appears that the drainage is serous in color. Urine output is 3700 mL and this is due to the effect of the Lasix the patient received 20 mg Lasix yesterday morning and 20 mg today. This is per recommendation of mass spectrometry specialist to get rid of the pleural effusion. ASSESSMENT AND PLAN: Pt.with large liver abscess, percutaneous drainage performed a few days ago by Dr. Decker in radiology department. It was purulent. Today The drainage was serous in color. The drainage has decreased to 200 mL in the past 24 hours until 6 a.m. today and from 6 a.m. until 12 noon is almost 5 mL. For this reason, I am going to order a CT scan of the abdomen with IV contrast to evaluate the size of the cavity and the completeness of the drainage of the abscess cavity. In the case it is loculated,then take new measures to drain the rest of the loculation. The matter of pleural effusion was discussed with PCP, Dictated By: Osmani Ceballos MD /[email or web address]/[email or web address] /Document#: [id number] SANJAY
[2017-04-20] MEDS: PANTOPRAZOLE (EC) 40 MG TAB PO SCH (05:08)
[2017-04-20] MEDS: FUROSEMIDE 20 MG INJ IV SCH (05:08)
[2017-04-20 06:02] LABS: ABNORMAL IP MESSAGE 1; HEMATOCRIT 31.6 % (37.0-47.0); HEMOGLOBIN 10.7 g/dl (12.0-16.0); MEAN CORPUSCULAR HEMOGLOBIN 30.1 pg (29.0-33.0); MEAN CORPUSCULAR HGB CONC 33.9 g/dl (32.0-37.0); MEAN CORPUSCULAR VOLUME 88.8 fl (82.0-101.0); MEAN PLATELET VOLUME 9.8 fl (7.4-10.4); PLATELET COUNT 82 10^3/UL (140-415); RED BLOOD COUNT 3.56 10^6/ul (4.20-5.40); RED CELL DISTRIBUTION WIDTH 13.8 % (11.5-14.5); WHITE BLOOD COUNT 11.5 10^3/ul (4.8-10.8)
[2017-04-20 06:11] LABS: POSITIVE DIFF @See below
[2017-04-20] MEDS: Insulin NOVOLOG SS MILD Algorithm (SS with meals and bedtime) SC SCH ×4 (07:30→21:00)
[2017-04-20 08:00] VITALS: BP 108/65; RESP 24
[2017-04-20] MEDS: LINEZOLID 600 MG/D5W (PMX) 300 ML IVPB SCH ×2 (08:07→21:41)
[2017-04-20 08:27] LABS: ANISOCYTOSIS 1+ (0-0); BASOPHILS % (M) 2 % (0-2); EOSINOPHILS % (M) 1 % (0-7); MONOCYTES % (M) 5 % (0-11); PLATELET ESTIMATE DECREASED
--- NOTE | 2017-04-20 09:11 | CONS ---
Date/Time of Note Date/Time of Note DATE: 04/20/17 TIME: 09:10 Assessment/Plan Assessment/Plan Additional Assessment/Plan 1.Hypotension-borderline not requiring pressors- BETTER BP now - out of ICU,. BP maintained - BETTER now, con't med rx - BP stable overall. 2.Abnl ecg-with ST elevations antertior-negative trop x 3/NL EF by echo. NO CP - con't to optimize Rx now. OFF TELE now. 3.Liver abscess s/p CT guided drainage - better overall, on therapy with anti- Bx now. DRAIN in place - still some discomfort noted 4.H/O lung ca s/p resection with lung nodules by CT - pulmonary team follows 5.Lung nodules - primary follows, no SOB described. Consultation Date/Type/Reason Admit Date/Time Apr 13, 2017 at 19:51 Initial Consult Date 04/13/17 Type of Consultation: Pulm Referring Provider: DARREL BURT MD 24 HR Interval Summary Free Text/Dictation NO acute events - BP in good range - no CP now. ROS: No fever, no chills, no nausea, no vomiting, no diarrhea/constipation No recent weight changes No chest pain, no PND, no orthopnea No dizziness, blurred vision No thirst, no heat or cold intolerance Exam/Review of Systems Vital Signs Vitals Vital Signs Date Time Temp Pulse Resp B/P Pulse Ox O2 Delivery O2 Flow Rate FiO2 04/20/17 02:50 6.0 04/20/17 02:45 98.4 88 18 98/59 98 04/19/17 21:00 Nasal Cannula Intake and Output 04/19/17 04/19/17 04/20/17 15:00 23:00 07:00 Intake Total 350 ml 870 ml 330 ml Output Total 1255 ml Balance 350 ml -385 ml 330 ml Exam General: WN/WD/NAD, AOx 3 HEENT: Unicetric/atraumatic/EOMI (follows commands) NECK: JVD elevated, no thyromegaly Lymph: no lymphadenopathy HEART: regular with no S3, II/ systolic murmur at apex LUNGS: Coarse sounds ABD: soft, NT, ND, +BS : Intact Neuro: non focal SKIN: chronic changes EXT: trace edema Results Result Diagram: 04/20/17 0545 04/18/17 0420 Results 24 hrs Laboratory Tests Test 04/19/17 11:41 04/19/17 16:55 04/19/17 20:23 04/20/17 05:45 Bedside Glucose 149 131 142 White Blood Count 11.5 H Red Blood Count 3.56 L Hemoglobin 10.7 L Hematocrit 31.6 L Mean Corpuscular Volume 88.8 Mean Corpuscular Hemoglobin 30.1 Mean Corpuscular Hemoglobin Concent 33.9 Red Cell Distribution Width 13.8 Platelet Count 82 L Mean Platelet Volume 9.8 Neutrophils % Segmented Neutrophils % (Manual) 82 H Lymphocytes % Lymphocytes % (Manual) 10 L Monocytes % Monocytes % (Manual) 5 Eosinophils % Eosinophils % (Manual) 1 Basophils % Basophils % (Manual) 2 Nucleated Red Blood Cells % 0.0 Neutrophils # Absolute Lymphocytes (Manual) 1.1 Lymphocytes # Monocytes # Absolute Monocytes (Manual) 0.5 Eosinophils # Basophils # Basophils # (Manual) 0.2 H Nucleated Red Blood Cells # Platelet Estimate DECREASED Anisocytosis 1+ Macrocytosis 1+ Test 04/20/17 08:07 Bedside Glucose 116 Medications Medications Current Medications Linezolid (Zyvox 600mg/D5W (Pmx)) 300 ml @ 300 mls/hr Q12 IVPB Last administered on 04/20/17 08:07; Admin Dose 300 MLS/HR; Start 04/13/17 at 21:00 Diagnostic Test (Pha) (Accu-Chek) 1 ea 02 XX Last administered on 04/15/17 02: 00; Admin Dose 1 EA; Start 04/14/17 at 02:00 Miscellaneous Information 1 ea NOTE XX ; Start 04/13/17 at 21:30 Glucose (Glutose) 15 gm Q15M PRN PO DECREASED GLUCOSE; Start 04/13/17 at 21:30 Glucose (Glutose) 22.5 gm Q15M PRN PO DECREASED GLUCOSE; Start 04/13/17 at 21: 30 Dextrose (D50w Syringe) 25 ml Q15M PRN IV DECREASED GLUCOSE; Start 04/13/17 at 21:30 Dextrose (D50w Syringe) 50 ml Q15M PRN IV DECREASED GLUCOSE; Start 04/13/17 at 21:30 Glucagon (Glucagen) 1 mg Q15M PRN IM DECREASED GLUCOSE; Start 04/13/17 at 21:30 Glucose (Glutose) 15 gm Q15M PRN BUCCAL DECREASED GLUCOSE; Start 04/13/17 at 21 :30 Ondansetron HCl (Zofran Inj) 4 mg Q6 PRN IV NAUSEA AND/OR VOMITING; Start 04/13 at 21:30 Guaifenesin/ Dextromethorphan (Robitussin Dm Liquid Cup) 5 ml Q4H PRN PO COUGH Last administered on 04/19/17 05:09; Admin Dose 5 ML; Start 04/15/17 at 16:30 Pantoprazole (Protonix Tab) 40 mg DAILY@06 PO Last administered on 04/20/17 05 :08; Admin Dose 40 MG; Start 04/17/17 at 06:00 Acetaminophen (Tylenol Tab) 500 mg Q6H PRN PO PAIN AND OR ELEVATED TEMP; Start 04/17/17 at 03:00 Magnesium Hydroxide 30 ml 30 ml DAILY PRN PO CONSTIPATION; Start 04/17/17 at 11 :30 Ampicillin Sodium/ Sulbactam Sodium (Unasyn 1.5gm/NS (Pmx)) 50 ml @ 100 mls/hr Q6 IVPB Last administered on 04/20/17 05:06; Admin Dose 100 MLS/HR; Start at 18:00 Furosemide (Lasix) 20 mg DAILY@06 IV Last administered on 04/20/17 05:08; Admin Dose 20 MG; Start 04/18/17 at 18:30 JAIME BULLARD MD Apr 20, 2017 09:11
[2017-04-20] MEDS ORDERED: LIDOCAINE 1% (MPF) 5 ML VIAL ONE (10:11)
--- NOTE | 2017-04-20 10:17 | RADRPT ---
PROCEDURE: US guided right thoracentesis. CLINICAL INDICATION: Shortness of breath. Right pleural effusion. TECHNIQUE: Prior to the procedure, informed consent was obtained. The risks, benefits, and alternatives were e xplained to the patient or the patient's family, including but not limited to bleeding, infection, p ain, visceral or vascular damage, shock, pneumothorax, chest tube placement, air embolism, and . The patient or the patient's family understood the risks and the alternatives and wished to proce ed with the study. Informed written consent was obtained. A procedural pause was performed. The patient's name, date of , and procedure to be performed were verified. Ultrasound of the right hemithorax was performed in the axial and sagittal planes. A right pleural e ffusion is noted. Utilizing ultrasound guidance, optimal location for entry to the pleural cavity wa s ascertained. The overlying skin was prepped and draped in the usual sterile fashion. Approximate ly 10 ml of 1% Xylocaine was injected locally for pain control. Using ultrasound guidance, a 5-Fren Yueh catheter was introduced into the right pleural space without difficulty. Fluid was aspirated . COMPARISON: CT scan of the chest dated 04/18/2017. FINDINGS: Initial ultrasound demonstrates fluid in the right pleural space. Approximately 0.210 liters of ser ous fluid was aspirated and sent to the laboratory. IMPRESSION: 1. Satisfactory ultrasound-guided right thoracentesis. RPTAT: QQ .Logan Decker MD, Date Time Electronically viewed and signed by .Logan Decker MD, on 04/20/2017 10:16 .R/
--- NOTE | 2017-04-20 10:32 | RADRPT ---
PROCEDURE: XR Chest. CLINICAL INDICATION: Status post thoracentesis TECHNIQUE: Single frontal view of the chest was obtained COMPARISON: 04/18/2017 FINDINGS: See impression. IMPRESSION: Interval increase in size of the bilateral pleural effusions, larger on the right and small to moder ate on the left. No definite pneumothorax status post thoracentesis. Otherwise, no convincing interv al change compared to chest radiograph from 2 days prior. RPTAT: EE Physician Tanner Date Time Electronically viewed and signed by Physician Tanner on 04/20/2017 10:31 /
[2017-04-20] MEDS ORDERED: IOHEXOL 300MG/ML 150 ML BTL ONE (10:40)
[2017-04-20] MEDS ORDERED: SOD CHLORIDE 0.9% 100 ML ONE (10:40)
--- NOTE | 2017-04-20 10:43 | CONS ---
Date/Time of Note Date/Time of Note DATE: 04/20/17 TIME: 10:42 Assessment/Plan Assessment/Plan Additional Assessment/Plan Chest x-ray was reviewed from today which is showing right lower lobe infiltrative changes. Assessment and recommendations; 1. Patient admitted with liver abscess and now developing right lower lobe pneumonia. 2. Status post right thoracentesis today. 3. Mild hypoxemia due to pneumonia. Continue current treatment. Obtain follow-up chest x-ray in 48 hours. Consultation Date/Type/Reason Admit Date/Time Apr 13, 2017 at 19:51 Initial Consult Date 04/15/17 Type of Consultation: Pulm Referring Provider: DARREL BURT MD 24 HR Interval Summary Free Text/Dictation Patient condition is stable. Remains awake alert. Complains of mild shortness of breath. General exam; elderly woman, awake and alert. Currently in no distress. Exam/Review of Systems Vital Signs Vitals Vital Signs Date Time Temp Pulse Resp B/P Pulse Ox O2 Delivery O2 Flow Rate FiO2 04/20/17 08:00 98.9 88 24 108/65 96 04/20/17 02:50 6.0 04/19/17 21:00 Nasal Cannula Intake and Output 04/19/17 04/19/17 04/20/17 15:00 23:00 07:00 Intake Total 350 ml 870 ml 330 ml Output Total 1255 ml Balance 350 ml -385 ml 330 ml Exam HEENT exam; supple neck, no JVD. No lymphadenopathy. Midline trachea. No thyromegaly. Chest exam; diminished breath sounds right lung. Left lung is clear. S1-S2 audible, no murmurs. Regular rhythm. Abdomen exam; soft, mild right upper quadrant tenderness is present. Bowel sounds audible. No organomegaly. Extremity exam; no peripheral edema. DRAPERY INSTALLER exam; no focal deficit. Results Result Diagram: 04/20/17 0545 04/18/17 0420 Results 24 hrs Laboratory Tests Test 04/19/17 11:41 04/19/17 16:55 04/19/17 20:23 04/20/17 05:45 Bedside Glucose 149 131 142 White Blood Count 11.5 H Red Blood Count 3.56 L Hemoglobin 10.7 L Hematocrit 31.6 L Mean Corpuscular Volume 88.8 Mean Corpuscular Hemoglobin 30.1 Mean Corpuscular Hemoglobin Concent 33.9 Red Cell Distribution Width 13.8 Platelet Count 82 L Mean Platelet Volume 9.8 Neutrophils % Segmented Neutrophils % (Manual) 82 H Lymphocytes % Lymphocytes % (Manual) 10 L Monocytes % Monocytes % (Manual) 5 Eosinophils % Eosinophils % (Manual) 1 Basophils % Basophils % (Manual) 2 Nucleated Red Blood Cells % 0.0 Neutrophils # Absolute Lymphocytes (Manual) 1.1 Lymphocytes # Monocytes # Absolute Monocytes (Manual) 0.5 Eosinophils # Basophils # Basophils # (Manual) 0.2 H Nucleated Red Blood Cells # Platelet Estimate DECREASED Anisocytosis 1+ Macrocytosis 1+ Test 04/20/17 08:07 Bedside Glucose 116 Medications Medications Current Medications Linezolid (Zyvox 600mg/D5W (Pmx)) 300 ml @ 300 mls/hr Q12 IVPB Last administered on 04/20/17 08:07; Admin Dose 300 MLS/HR; Start 04/13/17 at 21:00 Diagnostic Test (Pha) (Accu-Chek) 1 ea 02 XX Last administered on 04/15/17 02: 00; Admin Dose 1 EA; Start 04/14/17 at 02:00 Miscellaneous Information 1 ea NOTE XX ; Start 04/13/17 at 21:30 Glucose (Glutose) 15 gm Q15M PRN PO DECREASED GLUCOSE; Start 04/13/17 at 21:30 Glucose (Glutose) 22.5 gm Q15M PRN PO DECREASED GLUCOSE; Start 04/13/17 at 21: 30 Dextrose (D50w Syringe) 25 ml Q15M PRN IV DECREASED GLUCOSE; Start 04/13/17 at 21:30 Dextrose (D50w Syringe) 50 ml Q15M PRN IV DECREASED GLUCOSE; Start 04/13/17 at 21:30 Glucagon (Glucagen) 1 mg Q15M PRN IM DECREASED GLUCOSE; Start 04/13/17 at 21:30 Glucose (Glutose) 15 gm Q15M PRN BUCCAL DECREASED GLUCOSE; Start 04/13/17 at 21 :30 Ondansetron HCl (Zofran Inj) 4 mg Q6 PRN IV NAUSEA AND/OR VOMITING; Start 04/13 at 21:30 Guaifenesin/ Dextromethorphan (Robitussin Dm Liquid Cup) 5 ml Q4H PRN PO COUGH Last administered on 04/19/17 05:09; Admin Dose 5 ML; Start 04/15/17 at 16:30 Pantoprazole (Protonix Tab) 40 mg DAILY@06 PO Last administered on 04/20/17 05 :08; Admin Dose 40 MG; Start 04/17/17 at 06:00 Acetaminophen (Tylenol Tab) 500 mg Q6H PRN PO PAIN AND OR ELEVATED TEMP; Start 04/17/17 at 03:00 Magnesium Hydroxide 30 ml 30 ml DAILY PRN PO CONSTIPATION; Start 04/17/17 at 11 :30 Ampicillin Sodium/ Sulbactam Sodium (Unasyn 1.5gm/NS (Pmx)) 50 ml @ 100 mls/hr Q6 IVPB Last administered on 04/20/17 05:06; Admin Dose 100 MLS/HR; Start at 18:00 Furosemide (Lasix) 20 mg DAILY@06 IV Last administered on 04/20/17 05:08; Admin Dose 20 MG; Start 04/18/17 at 18:30 LINDA GARCIA Apr 20, 2017 10:43
--- NOTE | 2017-04-20 11:42 | CONS ---
Date/Time of Note Date/Time of Note DATE: 04/20/17 TIME: 11:41 Assessment/Plan Assessment/Plan Chief Complaint/Hosp Course - Severe sepsis 2/2 to liver abscess - improving - Liver abscess s/p CT guided drainage 04/15/2017 - Hypotension - improved with IVF - Normocytic anemia requiring blood transfusion - Coagulopathy - improved - Transaminitis - slowly improving - Hyponatremia on admission - resolved - CoNS in urine culture with trivial pyuria, likely contaminant; pt asymptomatic - Hx of rectal CA s/p Low anterior resection 08/29/2016 Recommendations: -Unasyn x 10 days - repeat imaging prior to abx cessation to ensure resolution - monitor output - probiotics Problems: Consultation Date/Type/Reason Admit Date/Time Apr 13, 2017 at 19:51 Initial Consult Date 04/13/17 Type of Consultation: id Referring Provider: DARREL BURT MD Exam/Review of Systems Vital Signs Vitals Vital Signs Date Time Temp Pulse Resp B/P Pulse Ox O2 Delivery O2 Flow Rate FiO2 04/20/17 09:00 Nasal Cannula 6.0 04/20/17 08:00 98.9 88 24 108/65 96 Intake and Output 04/19/17 04/19/17 04/20/17 15:00 23:00 07:00 Intake Total 350 ml 870 ml 330 ml Output Total 1255 ml Balance 350 ml -385 ml 330 ml Results Result Diagram: 04/20/17 0545 04/18/17 0420 Results 24 hrs Laboratory Tests Test 04/19/17 16:55 04/19/17 20:23 04/20/17 05:45 04/20/17 08:07 Bedside Glucose 131 142 116 White Blood Count 11.5 H Red Blood Count 3.56 L Hemoglobin 10.7 L Hematocrit 31.6 L Mean Corpuscular Volume 88.8 Mean Corpuscular Hemoglobin 30.1 Mean Corpuscular Hemoglobin Concent 33.9 Red Cell Distribution Width 13.8 Platelet Count 82 L Mean Platelet Volume 9.8 Neutrophils % Segmented Neutrophils % (Manual) 82 H Lymphocytes % Lymphocytes % (Manual) 10 L Monocytes % Monocytes % (Manual) 5 Eosinophils % Eosinophils % (Manual) 1 Basophils % Basophils % (Manual) 2 Nucleated Red Blood Cells % 0.0 Neutrophils # Absolute Lymphocytes (Manual) 1.1 Lymphocytes # Monocytes # Absolute Monocytes (Manual) 0.5 Eosinophils # Basophils # Basophils # (Manual) 0.2 H Nucleated Red Blood Cells # Platelet Estimate DECREASED Anisocytosis 1+ Macrocytosis 1+ Test 04/20/17 11:06 Bedside Glucose 112 Medications Medications Current Medications Linezolid (Zyvox 600mg/D5W (Pmx)) 300 ml @ 300 mls/hr Q12 IVPB Last administered on 04/20/17 08:07; Admin Dose 300 MLS/HR; Start 04/13/17 at 21:00 Diagnostic Test (Pha) (Accu-Chek) 1 ea 02 XX Last administered on 04/15/17 02: 00; Admin Dose 1 EA; Start 04/14/17 at 02:00 Miscellaneous Information 1 ea NOTE XX ; Start 04/13/17 at 21:30 Glucose (Glutose) 15 gm Q15M PRN PO DECREASED GLUCOSE; Start 04/13/17 at 21:30 Glucose (Glutose) 22.5 gm Q15M PRN PO DECREASED GLUCOSE; Start 04/13/17 at 21: 30 Dextrose (D50w Syringe) 25 ml Q15M PRN IV DECREASED GLUCOSE; Start 04/13/17 at 21:30 Dextrose (D50w Syringe) 50 ml Q15M PRN IV DECREASED GLUCOSE; Start 04/13/17 at 21:30 Glucagon (Glucagen) 1 mg Q15M PRN IM DECREASED GLUCOSE; Start 04/13/17 at 21:30 Glucose (Glutose) 15 gm Q15M PRN BUCCAL DECREASED GLUCOSE; Start 04/13/17 at 21 :30 Ondansetron HCl (Zofran Inj) 4 mg Q6 PRN IV NAUSEA AND/OR VOMITING; Start 04/13 at 21:30 Guaifenesin/ Dextromethorphan (Robitussin Dm Liquid Cup) 5 ml Q4H PRN PO COUGH Last administered on 04/19/17 05:09; Admin Dose 5 ML; Start 04/15/17 at 16:30 Pantoprazole (Protonix Tab) 40 mg DAILY@06 PO Last administered on 04/20/17 05 :08; Admin Dose 40 MG; Start 04/17/17 at 06:00 Acetaminophen (Tylenol Tab) 500 mg Q6H PRN PO PAIN AND OR ELEVATED TEMP; Start 04/17/17 at 03:00 Magnesium Hydroxide 30 ml 30 ml DAILY PRN PO CONSTIPATION; Start 04/17/17 at 11 :30 Ampicillin Sodium/ Sulbactam Sodium (Unasyn 1.5gm/NS (Pmx)) 50 ml @ 100 mls/hr Q6 IVPB Last administered on 04/20/17 05:06; Admin Dose 100 MLS/HR; Start at 18:00 Furosemide (Lasix) 20 mg DAILY@06 IV Last administered on 04/20/17 05:08; Admin Dose 20 MG; Start 04/18/17 at 18:30 CHIOMA ROGERS MD Apr 20, 2017 11:42
[2017-04-20 12:53] LABS: FLUID GLUCOSE 66 mg/dl; FLUID TYPE THORACENTESIS FLUID
[2017-04-20 12:54] LABS: FLUID TOTAL PROTEIN 3.2 g/dl
--- NOTE | 2017-04-20 13:46 | PN ---
Date/Time of Note Date/Time of Note DATE: 04/20/17 TIME: 13:32 Assessment/Plan VTE Prophylaxis VTE Prophylaxis Intervention: ambulation, SCD's Lines/Catheters IV [facility]ter Type (from [facility]): Saline Lock Urinary Cath still in place: No Assessment/Plan Assessment/Plan 66-year-old female presented with abdominal pain and fever and leukocytosis and pain and was found to have a liver abscess aspirated under CT guidance culture grew hemolyticus streptococcus. While in the hospital patient gradually got shortness of breath and developed some hypoxemic problem which responded to nasal oxygen cannula. Plant Protection Officer yesterday ordered thoracentesis which was done today. But only [address] scan of abdomen reveals that some of the abscess has been drained but there are many loculation left. Abdomen is soft. Dr. Clinton was informed of the condition of the patient. Subjective 24 Hr Interval Summary Free Text/Dictation States that she is feeling better and her breathing is better less shortness of breasts following the thoracentesis today morning. No fever no nausea no vomiting Exam/Review of Systems Vital Signs Vitals Vital Signs Date Time Temp Pulse Resp B/P Pulse Ox O2 Delivery O2 Flow Rate FiO2 04/20/17 09:00 Nasal Cannula 6.0 04/20/17 08:00 98.9 88 24 108/65 96 Intake and Output 04/19/17 04/19/17 04/20/17 15:00 23:00 07:00 Intake Total 350 ml 870 ml 330 ml Output Total 1255 ml Balance 350 ml -385 ml 330 ml Exam Alert awake oriented 3. States that her breathing is better following thoracentesis. Vital signs stable temperature maximum 98.9 today. wbc 11,500 with 82% segmented Thoracocentesis on the right side is done today morning ultrasound-guided 210 cc of fluid which appears serous was drained. The specimen was sent for pathology evaluation has revealed presence of protein 3.2 g/dL and sugar 66 therefore on the basis of protein this is an exudate. Chest x-ray and CT scan of the abdomen was reviewed with Dr. Decker. Still there is a lot of fluid in the right pleural space. Also the liver abscess has been drained to some extent but appears that there is many loculations. Pigtail has drained 60 cc past 24 hour status in color. I discussed the finding with Dr. Clinton and he is aware of the pathology in the liver and the right pleural space. Results Result Diagram: 04/20/17 0545 04/18/17 0420 Results 24 hrs Laboratory Tests Test 04/19/17 16:55 04/19/17 20:23 04/20/17 05:45 04/20/17 08:07 Bedside Glucose 131 142 116 White Blood Count 11.5 H Red Blood Count 3.56 L Hemoglobin 10.7 L Hematocrit 31.6 L Mean Corpuscular Volume 88.8 Mean Corpuscular Hemoglobin 30.1 Mean Corpuscular Hemoglobin Concent 33.9 Red Cell Distribution Width 13.8 Platelet Count 82 L Mean Platelet Volume 9.8 Neutrophils % Segmented Neutrophils % (Manual) 82 H Lymphocytes % Lymphocytes % (Manual) 10 L Monocytes % Monocytes % (Manual) 5 Eosinophils % Eosinophils % (Manual) 1 Basophils % Basophils % (Manual) 2 Nucleated Red Blood Cells % 0.0 Neutrophils # Absolute Lymphocytes (Manual) 1.1 Lymphocytes # Monocytes # Absolute Monocytes (Manual) 0.5 Eosinophils # Basophils # Basophils # (Manual) 0.2 H Nucleated Red Blood Cells # Platelet Estimate DECREASED Anisocytosis 1+ Macrocytosis 1+ Test 04/20/17 09:45 04/20/17 11:06 04/20/17 12:07 Body Fluid Type THORACENTESIS FLUID Body Fluid Glucose 66 Body Fluid Total Protein 3.2 Bedside Glucose 112 167 Medications Medications Current Medications Linezolid (Zyvox 600mg/D5W (Pmx)) 300 ml @ 300 mls/hr Q12 IVPB Last administered on 04/20/17 08:07; Admin Dose 300 MLS/HR; Start 04/13/17 at 21:00 Diagnostic Test (Pha) (Accu-Chek) 1 ea 02 XX Last administered on 04/15/17 02: 00; Admin Dose 1 EA; Start 04/14/17 at 02:00 Miscellaneous Information 1 ea NOTE XX ; Start 04/13/17 at 21:30 Glucose (Glutose) 15 gm Q15M PRN PO DECREASED GLUCOSE; Start 04/13/17 at 21:30 Glucose (Glutose) 22.5 gm Q15M PRN PO DECREASED GLUCOSE; Start 04/13/17 at 21: 30 Dextrose (D50w Syringe) 25 ml Q15M PRN IV DECREASED GLUCOSE; Start 04/13/17 at 21:30 Dextrose (D50w Syringe) 50 ml Q15M PRN IV DECREASED GLUCOSE; Start 04/13/17 at 21:30 Glucagon (Glucagen) 1 mg Q15M PRN IM DECREASED GLUCOSE; Start 04/13/17 at 21:30 Glucose (Glutose) 15 gm Q15M PRN BUCCAL DECREASED GLUCOSE; Start 04/13/17 at 21 :30 Ondansetron HCl (Zofran Inj) 4 mg Q6 PRN IV NAUSEA AND/OR VOMITING; Start 04/13 at 21:30 Guaifenesin/ Dextromethorphan (Robitussin Dm Liquid Cup) 5 ml Q4H PRN PO COUGH Last administered on 04/19/17 05:09; Admin Dose 5 ML; Start 04/15/17 at 16:30 Pantoprazole (Protonix Tab) 40 mg DAILY@06 PO Last administered on 04/20/17 05 :08; Admin Dose 40 MG; Start 04/17/17 at 06:00 Acetaminophen (Tylenol Tab) 500 mg Q6H PRN PO PAIN AND OR ELEVATED TEMP; Start 04/17/17 at 03:00 Magnesium Hydroxide 30 ml 30 ml DAILY PRN PO CONSTIPATION; Start 04/17/17 at 11 :30 Ampicillin Sodium/ Sulbactam Sodium (Unasyn 1.5gm/NS (Pmx)) 50 ml @ 100 mls/hr Q6 IVPB Last administered on 04/20/17 12:48; Admin Dose 100 MLS/HR; Start at 18:00 Furosemide (Lasix) 20 mg DAILY@06 IV Last administered on 04/20/17 05:08; Admin Dose 20 MG; Start 04/18/17 at 18:30 JOHN BURGOS MD Apr 20, 2017 13:45
[2017-04-20 14:15] VITALS: BP 98/57; RESP 22
--- NOTE | 2017-04-20 17:13 | RADRPT ---
PROCEDURE: CT ABDOMEN AND PELVIS WITH CONTRAST: CLINICAL INDICATION: 66-year of age, female, follow-up liver abscess. COMPARISON: CT chest April 18, 2017 and MRI abdomen April 17, [address] guided procedure April 15, [address] of April 13, 2017 TECHNIQUE: CT of the abdomen and pelvis was performed following administration of 90 mL IV Omnipaqu e-300. Oral contrast was not administered prior to the examination. Coronal and sagittal reformatted images were obtained from the axial source images. Images were revi ewed on a high-resolution PACS workstation. Dose information: Based on a 32 cm phantom, the estimated radiation dose (CTDIvol mGy for each serie s in this exam is 5.7. The estimated cumulative dose (DLP mGy-cm) is 327. One or more of the following dose reduction techniques were used: - Automated exposure control. - Adjustment of the mA and/or kV according to patient size. - Use of iterative reconstruction technique. FINDINGS: LUNG BASES: There is a moderate loculated right pleural effusion with thin enhancement of the pleura l lining that is similar size to chest CT performed April 18, 2017 but is new since April. Right pleural effusion contains bubbles of gas that are new from April 18, 2017. Small l ayering left pleural effusion is new from April 13 and unchanged from April 18 without enhan cement of the pleural lining. There is bilateral dependent lung consolidation in keeping with atelec tasis. Calcified granuloma right lower lobe. Enlarged main pulmonary artery measuring 3.2 cm is new from prior exam in keeping with pulmonary art alyson hypertension. Negative for pericardial effusion. ABDOMEN/PELVIS: Liver: There is a percutaneous pigtail catheter that has been inserted into the multiloculated rim e nhancing abscess in the superior right and left lobes of the liver. Catheter is in unchanged positio n since the CT procedure performed April 15, 2017. Multiloculated liver abscess has decreased in size. However, large abscess cavities remain. Dominant abscesses near the catheter have decreased i n size. Abscess cavity in the segment 8 is unchanged. Sample collections are as follows: Segment 8 (10/29): 3.5 x 4.2 cm (previous 3.4 x 4.2 cm) Segment 4A (): 4.3 x 5.4 cm (previous 6.4 x 8.7 cm) Segment 4 and 8 (): 5.9 x 8.8 cm (previous 7.5 x 9.9 cm) Segment 5/4B (): 1.6 x 3.5 cm (previous 3.1 x 4.4 cm) There is hypodensity in the liver surrounding the abscesses representing edema. No new hepatic colle ctions are identified. There is a 0.5 x 6.4 cm subcapsular fluid collection overlying the anterior l iver at the entry site of the catheter representing a small subcapsular abscess that is new from demetrice or exam () Right and left hepatic veins are patent. Middle hepatic vein is not well visualized due to the multi ple liver abscesses and may be occluded Gallbladder: Normal. Bile ducts: No intrahepatic or extrahepatic biliary duct dilatation. Spleen: Normal. Pancreas: Normal. Adrenal glands: Normal. Kidneys and ureters: Right greater than left bilateral renal parenchymal hypodensities are unchanged and likely represent cysts. Negative for urinary calculi or hydronephrosis. Aorta and IVC: Aorta and iliac vessels are tortuous without aneurysm. Suprarenal IVC is patent. Infr arenal IVC and iliac veins are incompletely evaluated due to the phase of contrast injection. 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 Bilateral gonadal veins are distended and occ luded with thrombus extending to the junction with the IVC and left renal vein. Lymph nodes: Calcified mesenteric lymph nodes in the right lower quadrant are likely from old healed granulomatous infection. Gastrointestinal tract: Status post distal sigmoid resection with reanastomosis. Mild sigmoid colon diverticulosis without diverticulitis. Bowel loops are decompressed. Appendix: Normal Bladder: Normal. Pelvic Organs: Not visualized. Peritoneal cavity: Trace free intraperitoneal fluid. Negative for free intraperitoneal air. Abdominal wall: There is a small left femoral hernia containing a fluid. Hernia sac measures 4 cm. T here is a abdominal wall hernia in the suprapubic midline that contains peritoneal fluid and a knuck le of small bowel that has increased in size since prior exam. Bowel within the hernia is new ( ). Defect in the fascia measures 1.9 cm. There is diffuse body wall edema. BONES: Musculoskeletal: Benign hemangioma of T12 vertebra is unchanged. Multilevel degenerative changes in spine and pelvis. No suspicious bone lesions. IMPRESSION: Status post placement of a percutaneous pigtail catheter in a multiloculated abscess in the right an d left lobes of the liver. Abscess cavities around the catheter are decreased in size. However, larg e collections remain. A 4.2 cm abscess in segment 8 is unchanged in size and is remote from the drai nage catheter. Small subcapsular abscess overlying the anterior liver at the entry site of the drainage catheter is new from prior exam. No other new collections are identified. Moderate loculated right pleural effusion with enhancement of the pleural lining and a small amount of pleural air is concerning for a right empyema. Small left pleural effusion and bilateral dependent atelectasis. Bilateral gonadal vein thrombus appears acute. Left femoral hernia containing peritoneal fluid and fat. Small abdominal wall hernia in the suprapubic midline contains small bowel and intraperitoneal flui d without evidence of obstruction or strangulation. Hernia has increased in size since prior exam. Findings were discussed with Nguyen Steele RN by Dr. Marta Duran on April 20, 2017 at 5:10 PM. She will contact the patient's provider. RPTAT: HCTS Physician Martin Date Time Electronically viewed and signed by Physician Martin on 04/20/2017 17:13 LUIS/
--- NOTE | 2017-04-20 17:24 | CONS ---
Date/Time of Note Date/Time of Note DATE: 04/20/17 TIME: 17:23 Assessment/Plan Assessment/Plan Chief Complaint/Hosp Course Problems: Additional Assessment/Plan 1. Acute hyponatremia 2/2 Hypovolemic hyponatremia 2. sepsis due to liver abscess 3. Hepatic abscess oN CT scan s/p CT guided drainage on 04/15/17 4. Acute transaminitis 5. h/o Colon CA s/p previous Surgery 6. Hypokalemia Plan : Wound cx grew hemolytic steptococci, Continue IV abx Unasyn and Linezolid, no cheimistry today to review monitor electrolytes and renal function watch for metabolic acidosis since pt has been getting iV zyvox AM labs including CBC< BMP has been ordered will follow up Consultation Date/Type/Reason Admit Date/Time Apr 13, 2017 at 19:51 Initial Consult Date 04/13/17 Type of Consultation: NEPHROLOGY Referring Provider: DARREL BURT MD 24 HR Interval Summary Free Text/Dictation no acute events, no chemistry today to review Exam/Review of Systems Vital Signs Vitals Vital Signs Date Time Temp Pulse Resp B/P Pulse Ox O2 Delivery O2 Flow Rate FiO2 04/20/17 14:15 98.1 98 22 98/57 98 04/20/17 09:00 Nasal Cannula 6.0 Intake and Output 04/19/17 04/19/17 04/20/17 15:00 23:00 07:00 Intake Total 350 ml 870 ml 330 ml Output Total 1255 ml Balance 350 ml -385 ml 330 ml Exam Constitutional: alert Psych: no complaints Head: normocephalic ENMT: nl external ears & nose Neck: non-tender, supple Respiratory: clear to auscultation, diminished breath sounds, normal air movement Cardiovascular: nl pulses, regular rate and rhythm Gastrointestinal: non-tender, soft Musculoskeletal: nl extremities to inspection 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: HEL[employer] DESK ASSOCIATE II-XII intact, 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, nl speech, nl strength Results Result Diagram: 04/20/17 0545 04/18/17 0420 Results 24 hrs Laboratory Tests Test 04/19/17 20:23 04/20/17 05:45 04/20/17 08:07 04/20/17 09:45 Bedside Glucose 142 116 White Blood Count 11.5 H Red Blood Count 3.56 L Hemoglobin 10.7 L Hematocrit 31.6 L Mean Corpuscular Volume 88.8 Mean Corpuscular Hemoglobin 30.1 Mean Corpuscular Hemoglobin Concent 33.9 Red Cell Distribution Width 13.8 Platelet Count 82 L Mean Platelet Volume 9.8 Neutrophils % Segmented Neutrophils % (Manual) 82 H Lymphocytes % Lymphocytes % (Manual) 10 L Monocytes % Monocytes % (Manual) 5 Eosinophils % Eosinophils % (Manual) 1 Basophils % Basophils % (Manual) 2 Nucleated Red Blood Cells % 0.0 Neutrophils # Absolute Lymphocytes (Manual) 1.1 Lymphocytes # Monocytes # Absolute Monocytes (Manual) 0.5 Eosinophils # Basophils # Basophils # (Manual) 0.2 H Nucleated Red Blood Cells # Platelet Estimate DECREASED Anisocytosis 1+ Macrocytosis 1+ Body Fluid Type THORACENTESIS FLUID Body Fluid Glucose 66 Body Fluid Total Protein 3.2 Test 04/20/17 11:06 04/20/17 12:07 04/20/17 17:07 Bedside Glucose 112 167 155 Medications Medications Current Medications Linezolid (Zyvox 600mg/D5W (Pmx)) 300 ml @ 300 mls/hr Q12 IVPB Last administered on 04/20/17 08:07; Admin Dose 300 MLS/HR; Start 04/13/17 at 21:00 Diagnostic Test (Pha) (Accu-Chek) 1 ea 02 XX Last administered on 04/15/17 02: 00; Admin Dose 1 EA; Start 04/14/17 at 02:00 Miscellaneous Information 1 ea NOTE XX ; Start 04/13/17 at 21:30 Glucose (Glutose) 15 gm Q15M PRN PO DECREASED GLUCOSE; Start 04/13/17 at 21:30 Glucose (Glutose) 22.5 gm Q15M PRN PO DECREASED GLUCOSE; Start 04/13/17 at 21: 30 Dextrose (D50w Syringe) 25 ml Q15M PRN IV DECREASED GLUCOSE; Start 04/13/17 at 21:30 Dextrose (D50w Syringe) 50 ml Q15M PRN IV DECREASED GLUCOSE; Start 04/13/17 at 21:30 Glucagon (Glucagen) 1 mg Q15M PRN IM DECREASED GLUCOSE; Start 04/13/17 at 21:30 Glucose (Glutose) 15 gm Q15M PRN BUCCAL DECREASED GLUCOSE; Start 04/13/17 at 21 :30 Ondansetron HCl (Zofran Inj) 4 mg Q6 PRN IV NAUSEA AND/OR VOMITING; Start 04/13 at 21:30 Guaifenesin/ Dextromethorphan (Robitussin Dm Liquid Cup) 5 ml Q4H PRN PO COUGH Last administered on 04/19/17 05:09; Admin Dose 5 ML; Start 04/15/17 at 16:30 Pantoprazole (Protonix Tab) 40 mg DAILY@06 PO Last administered on 04/20/17 05 :08; Admin Dose 40 MG; Start 04/17/17 at 06:00 Acetaminophen (Tylenol Tab) 500 mg Q6H PRN PO PAIN AND OR ELEVATED TEMP; Start 04/17/17 at 03:00 Magnesium Hydroxide 30 ml 30 ml DAILY PRN PO CONSTIPATION; Start 04/17/17 at 11 :30 Ampicillin Sodium/ Sulbactam Sodium (Unasyn 1.5gm/NS (Pmx)) 50 ml @ 100 mls/hr Q6 IVPB Last administered on 04/20/17 17:08; Admin Dose 100 MLS/HR; Start at 18:00 Furosemide (Lasix) 20 mg DAILY@06 IV Last administered on 04/20/17 05:08; Admin Dose 20 MG; Start 04/18/17 at 18:30 NGOC GARZA MD Apr 20, 2017 17:24
[2017-04-20] MEDS: MINERAL OIL 30ML CUP PO SCH ×2 (18:30→21:41)
--- NOTE | 2017-04-20 18:43 | PN ---
Date/Time of Note Date/Time of Note DATE: 04/20/17 TIME: 18:32 Assessment/Plan VTE Prophylaxis VTE Prophylaxis Intervention: SCD's Lines/Catheters IV [facility]from [facility] Saline Lock Urinary Cath still in place: No Assessment/Plan Chief Complaint/Hosp Course Patient status post thoracentesis today, occasional shortness of breath, is on 5 L oxygen via nasal cannula with humidifier. Problems: Assessment/Plan -Bilateral pleural effusions right more than left, status post right thoracentesis today. -Acute respiratory failure secondary to #1, Dr. Damico is following in pulmonology consultation continue oxygen oxygen supplementation - Severe sepsis 2/2 to liver abscess. Continue antibiotics per ID. Dr. Diana is following infection disease consultation - Liver abscess unchanged per recent CT, s/p CT guided drainage 04/15/2017 - Normocytic anemia requiring blood transfusion - Hx of rectal CA s/p Low anterior resection 08/29/2016 Further recommendations based on clinical course. Plan of care discussed with Dr. Dior Exam/Review of Systems Vital Signs Vitals Vital Signs Date Time Temp Pulse Resp B/P Pulse Ox O2 Delivery O2 Flow Rate FiO2 04/20/17 17:54 6.0 04/20/17 14:15 98.1 98 22 98/57 98 04/20/17 09:00 Nasal Cannula Intake and Output 04/19/17 04/19/17 04/20/17 14:59 22:59 06:59 Intake Total 350 ml 870 ml 330 ml Output Total 1255 ml Balance 350 ml -385 ml 330 ml Exam Constitutional: alert Neck: supple Respiratory: diminished breath sounds Cardiovascular: nl pulses Gastrointestinal: other (Hepatic drain), soft Extremities: normal pulses Results Result Diagram: 04/20/17 0545 04/18/17 0420 Results 24 hrs Laboratory Tests Test 04/19/17 20:23 04/20/17 05:45 04/20/17 08:07 04/20/17 09:45 Bedside Glucose 142 116 White Blood Count 11.5 H Red Blood Count 3.56 L Hemoglobin 10.7 L Hematocrit 31.6 L Mean Corpuscular Volume 88.8 Mean Corpuscular Hemoglobin 30.1 Mean Corpuscular Hemoglobin Concent 33.9 Red Cell Distribution Width 13.8 Platelet Count 82 L Mean Platelet Volume 9.8 Neutrophils % Segmented Neutrophils % (Manual) 82 H Lymphocytes % Lymphocytes % (Manual) 10 L Monocytes % Monocytes % (Manual) 5 Eosinophils % Eosinophils % (Manual) 1 Basophils % Basophils % (Manual) 2 Nucleated Red Blood Cells % 0.0 Neutrophils # Absolute Lymphocytes (Manual) 1.1 Lymphocytes # Monocytes # Absolute Monocytes (Manual) 0.5 Eosinophils # Basophils # Basophils # (Manual) 0.2 H Nucleated Red Blood Cells # Platelet Estimate DECREASED Anisocytosis 1+ Macrocytosis 1+ Body Fluid Type THORACENTESIS FLUID Body Fluid Glucose 66 Body Fluid Total Protein 3.2 Test 04/20/17 11:06 04/20/17 12:07 04/20/17 17:07 Bedside Glucose 112 167 155 Medications Medications Current Medications Linezolid (Zyvox 600mg/D5W (Pmx)) 300 ml @ 300 mls/hr Q12 IVPB Last administered on 04/20/17 08:07; Admin Dose 300 MLS/HR; Start 04/13/17 at 21:00 Diagnostic Test (Pha) (Accu-Chek) 1 ea 02 XX Last administered on 04/15/17 02: 00; Admin Dose 1 EA; Start 04/14/17 at 02:00 Miscellaneous Information 1 ea NOTE XX ; Start 04/13/17 at 21:30 Glucose (Glutose) 15 gm Q15M PRN PO DECREASED GLUCOSE; Start 04/13/17 at 21:30 Glucose (Glutose) 22.5 gm Q15M PRN PO DECREASED GLUCOSE; Start 04/13/17 at 21: 30 Dextrose (D50w Syringe) 25 ml Q15M PRN IV DECREASED GLUCOSE; Start 04/13/17 at 21:30 Dextrose (D50w Syringe) 50 ml Q15M PRN IV DECREASED GLUCOSE; Start 04/13/17 at 21:30 Glucagon (Glucagen) 1 mg Q15M PRN IM DECREASED GLUCOSE; Start 04/13/17 at 21:30 Glucose (Glutose) 15 gm Q15M PRN BUCCAL DECREASED GLUCOSE; Start 04/13/17 at 21 :30 Ondansetron HCl (Zofran Inj) 4 mg Q6 PRN IV NAUSEA AND/OR VOMITING; Start 04/13 at 21:30 Guaifenesin/ Dextromethorphan (Robitussin Dm Liquid Cup) 5 ml Q4H PRN PO COUGH Last administered on 04/19/17 05:09; Admin Dose 5 ML; Start 04/15/17 at 16:30 Pantoprazole (Protonix Tab) 40 mg DAILY@06 PO Last administered on 04/20/17 05 :08; Admin Dose 40 MG; Start 04/17/17 at 06:00 Acetaminophen (Tylenol Tab) 500 mg Q6H PRN PO PAIN AND OR ELEVATED TEMP; Start 04/17/17 at 03:00 Magnesium Hydroxide 30 ml 30 ml DAILY PRN PO CONSTIPATION; Start 04/17/17 at 11 :30 Ampicillin Sodium/ Sulbactam Sodium (Unasyn 1.5gm/NS (Pmx)) 50 ml @ 100 mls/hr Q6 IVPB Last administered on 04/20/17 17:08; Admin Dose 100 MLS/HR; Start at 18:00 Furosemide (Lasix) 20 mg DAILY@06 IV Last administered on 04/20/17 05:08; Admin Dose 20 MG; Start 04/18/17 at 18:30 Mineral Oil (Mineral Oil) 30 ml TID PO ; Start 04/20/17 at 18:30 WINDY EMERY Apr 20, 2017 18:43
[2017-04-20 20:46] VITALS: BP 113/60; RESP 16
[2017-04-21] MEDS: ACCU-CHEK XX SCH (00:55)
[2017-04-21] MEDS: AMPICILLIN/SULB 1.5GM/NS (PMX) 50 ML IVPB SCH ×4 (00:55→18:00)
[2017-04-21] MEDS: ACETAMINOPHEN 500 MG TAB PO PRN ×3 (01:54→21:50)
[2017-04-21] MEDS ORDERED: HYDROCODONE/APAP (5/325) TAB PO PRN (02:00)
[2017-04-21] MEDS ORDERED: morphine 2 MG INJ IV PRN (02:00)
[2017-04-21 02:47] VITALS: BP 177/65; RESP 18
[2017-04-21] MEDS: PANTOPRAZOLE (EC) 40 MG TAB PO SCH (05:23)
[2017-04-21] MEDS: FUROSEMIDE 20 MG INJ IV SCH (05:23)
[2017-04-21 05:54] LABS: ABNORMAL IP MESSAGE 1; BASOPHILS % 0.2 % (0.0-2.0); EOSINOPHILS % 0.4 % (0.0-7.0); HEMATOCRIT 28.6 % (37.0-47.0); HEMOGLOBIN 9.4 g/dl (12.0-16.0); LYMPHOCYTES # 1.1 10^3/ul (0.8-2.9); LYMPHOCYTES % 10.2 % (15.0-51.0); MEAN CORPUSCULAR HEMOGLOBIN 29.8 pg (29.0-33.0); MEAN CORPUSCULAR HGB CONC 32.9 g/dl (32.0-37.0); MEAN CORPUSCULAR VOLUME 90.8 fl (82.0-101.0); MEAN PLATELET VOLUME 9.8 fl (7.4-10.4); MONOCYTE # 0.8 10^3/ul (0.3-0.9); MONOCYTES % 7.1 % (0.0-11.0); NEUTROPHILS % 81.1 % (39.0-77.0); PLATELET COUNT 77 10^3/UL (140-415); RED BLOOD COUNT 3.15 10^6/ul (4.20-5.40); RED CELL DISTRIBUTION WIDTH 13.7 % (11.5-14.5); WHITE BLOOD COUNT 11.1 10^3/ul (4.8-10.8)
[2017-04-21 06:27] LABS: POSITIVE DIFF @See below
[2017-04-21 06:59] LABS: CALCIUM 8.2 mg/dl (8.4-10.2); CREATININE 0.45 mg/dl (0.44-1.00); POTASSIUM 3.9 mmol/L (3.5-5.1)
[2017-04-21] MEDS: Insulin NOVOLOG SS MILD Algorithm (SS with meals and bedtime) SC SCH ×4 (07:30→21:00)
[2017-04-21 08:00] VITALS: BP 93/55; RESP 21
[2017-04-21] MEDS: LINEZOLID 600 MG/D5W (PMX) 300 ML IVPB SCH (08:32)
[2017-04-21] MEDS: MINERAL OIL 30ML CUP PO SCH ×3 (08:35→21:50)
--- NOTE | 2017-04-21 09:08 | CONS ---
Date/Time of Note Date/Time of Note DATE: 04/21/17 TIME: 09:06 Assessment/Plan Assessment/Plan Additional Assessment/Plan 1.Hypotension-borderline not requiring pressors- BETTER BP now - out of ICU,. BP maintained - BETTER now, con't med rx - BP stable overall. NO new events - OFF Tele now. 2.Abnl ecg-with ST elevations antertior-negative trop x 3/NL EF by echo. NO CP - con't to optimize Rx now. OFF TELE now. 3.Liver abscess s/p CT guided drainage - better overall, on therapy with anti- Bx now. DRAIN in place - still some discomfort noted - SURGICAL TEAM FOLLOWS. 4.H/O lung ca s/p resection with lung nodules by CT - pulmonary team follows 5.Lung nodules - primary follows, no SOB described. - PULMONARY FOLLOWS. Consultation Date/Type/Reason Admit Date/Time Apr 13, 2017 at 19:51 Initial Consult Date 04/13/17 Type of Consultation: NEPHROLOGY Referring Provider: DARREL BURT MD 24 HR Interval Summary Free Text/Dictation NO acute events - con't anti-Bx. ROS: No fever, no chills, no nausea, no vomiting, no diarrhea/constipation No recent weight changes No chest pain, no PND, no orthopnea No dizziness, blurred vision No thirst, no heat or cold intolerance Exam/Review of Systems Vital Signs Vitals Vital Signs Date Time Temp Pulse Resp B/P Pulse Ox O2 Delivery O2 Flow Rate FiO2 04/21/17 08:00 98.5 87 21 93/55 96 04/21/17 06:26 6.0 04/20/17 20:00 Nasal Cannula Intake and Output 04/20/17 04/20/17 04/21/17 15:00 23:00 07:00 Intake Total 300 ml 1620 ml 540 ml Output Total 1900 ml Balance 300 ml -280 ml 540 ml Exam General: WN/WD/NAD, AOx 3 HEENT: Unicetric/atraumatic/EOMI (follows commands) NECK: JVD elevated, no thyromegaly Lymph: no lymphadenopathy HEART: regular with no S3, II/ systolic murmur at apex LUNGS: Coarse sounds ABD: soft, NT, ND, +BS : Intact Neuro: non focal SKIN: chronic changes EXT: trace edema Results Result Diagram: 04/21/17 0430 04/21/17 0440 Results 24 hrs Laboratory Tests Test 04/20/17 09:45 04/20/17 11:06 04/20/17 12:07 04/20/17 17:07 Body Fluid Type THORACENTESIS FLUID Body Fluid Glucose 66 Body Fluid Total Protein 3.2 Bedside Glucose 112 167 155 Test 04/20/17 21:43 04/21/17 04:30 04/21/17 04:40 Bedside Glucose 126 White Blood Count 11.1 H Red Blood Count 3.15 L Hemoglobin 9.4 L Hematocrit 28.6 L Mean Corpuscular Volume 90.8 Mean Corpuscular Hemoglobin 29.8 Mean Corpuscular Hemoglobin Concent 32.9 Red Cell Distribution Width 13.7 Platelet Count 77 L Mean Platelet Volume 9.8 Neutrophils % 81.1 H Lymphocytes % 10.2 L Monocytes % 7.1 Eosinophils % 0.4 Basophils % 0.2 Nucleated Red Blood Cells % 0.0 Neutrophils # 9.0 H Lymphocytes # 1.1 Monocytes # 0.8 Eosinophils # 0.0 Basophils # 0.0 Nucleated Red Blood Cells # 0.0 Sodium Level 133 L Potassium Level 3.9 Chloride Level 97 Carbon Dioxide Level 32 H Anion Gap 8 Blood Urea Nitrogen 6 L Creatinine 0.45 Glucose Level 118 Calcium Level 8.2 L Medications Medications Current Medications Linezolid (Zyvox 600mg/D5W (Pmx)) 300 ml @ 300 mls/hr Q12 IVPB Last administered on 04/21/17 08:32; Admin Dose 300 MLS/HR; Start 04/13/17 at 21:00 Diagnostic Test (Pha) (Accu-Chek) 1 ea 02 XX Last administered on 04/15/17 02: 00; Admin Dose 1 EA; Start 04/14/17 at 02:00 Miscellaneous Information 1 ea NOTE XX ; Start 04/13/17 at 21:30 Glucose (Glutose) 15 gm Q15M PRN PO DECREASED GLUCOSE; Start 04/13/17 at 21:30 Glucose (Glutose) 22.5 gm Q15M PRN PO DECREASED GLUCOSE; Start 04/13/17 at 21: 30 Dextrose (D50w Syringe) 25 ml Q15M PRN IV DECREASED GLUCOSE; Start 04/13/17 at 21:30 Dextrose (D50w Syringe) 50 ml Q15M PRN IV DECREASED GLUCOSE; Start 04/13/17 at 21:30 Glucagon (Glucagen) 1 mg Q15M PRN IM DECREASED GLUCOSE; Start 04/13/17 at 21:30 Glucose (Glutose) 15 gm Q15M PRN BUCCAL DECREASED GLUCOSE; Start 04/13/17 at 21 :30 Ondansetron HCl (Zofran Inj) 4 mg Q6 PRN IV NAUSEA AND/OR VOMITING; Start 04/13 at 21:30 Guaifenesin/ Dextromethorphan (Robitussin Dm Liquid Cup) 5 ml Q4H PRN PO COUGH Last administered on 04/19/17 05:09; Admin Dose 5 ML; Start 04/15/17 at 16:30 Pantoprazole (Protonix Tab) 40 mg DAILY@06 PO Last administered on 04/21/17 05 :23; Admin Dose 40 MG; Start 04/17/17 at 06:00 Acetaminophen (Tylenol Tab) 500 mg Q6H PRN PO PAIN AND OR ELEVATED TEMP Last administered on 04/21/17 01:54; Admin Dose 500 MG; Start 04/17/17 at 03:00 Magnesium Hydroxide 30 ml 30 ml DAILY PRN PO CONSTIPATION; Start 04/17/17 at 11 :30 Ampicillin Sodium/ Sulbactam Sodium (Unasyn 1.5gm/NS (Pmx)) 50 ml @ 100 mls/hr Q6 IVPB Last administered on 04/21/17 05:23; Admin Dose 100 MLS/HR; Start at 18:00 Furosemide (Lasix) 20 mg DAILY@06 IV Last administered on 04/21/17 05:23; Admin Dose 20 MG; Start 04/18/17 at 18:30 Mineral Oil (Mineral Oil) 30 ml TID PO Last administered on 04/21/17 08:35; Admin Dose 30 ML; Start 04/20/17 at 18:30 JAIME BULLARD MD Apr 21, 2017 09:08
[2017-04-21 09:24] VITALS: BP 107/59; PULSE 95
--- NOTE | 2017-04-21 12:02 | CONS ---
Date/Time of Note Date/Time of Note DATE: 04/21/17 TIME: 12:00 Consult Date/Type/Reason Admit Date/Time Apr 13, 2017 at 19:51 Initial Consult Date 04/15/17 Type of Consultation: Pulmonary Ordering Provider: DARREL BURT MD Subjective Patient still complaining of shortness of breath. Chest x-ray postthoracentesis shows loculated pleural effusion. Objective Vital Signs Date Time Temp Pulse Resp B/P Pulse Ox O2 Delivery O2 Flow Rate FiO2 04/21/17 09:24 95 107/59 04/21/17 08:20 Nasal Cannula 5.0 04/21/17 08:00 98.5 21 96 Intake and Output 04/20/17 04/20/17 04/21/17 15:00 23:00 07:00 Intake Total 300 ml 1620 ml 540 ml Output Total 1900 ml Balance 300 ml -280 ml 540 ml Exam GENERAL: Elderly lady comfortable at rest VITAL SIGNS: per chart NECK: Supple. No JVD or lymphadenopathy. CARDIAC EXAM: S1, S2. No added sounds or murmurs. CHEST: Diminished air entry at right lung base. ABDOMEN: Soft, nontender. No guarding or rebound. EXTREMITIES: No cyanosis, clubbing or edema. NEUROLOGIC: Generalized weakness. No focal deficits. Results/Medications Result Diagram: 04/21/17 0430 04/21/17 0440 Results 24 hrs Laboratory Tests Test 04/20/17 12:07 04/20/17 17:07 04/20/17 21:43 04/21/17 04:30 Bedside Glucose 167 155 126 White Blood Count 11.1 H Red Blood Count 3.15 L Hemoglobin 9.4 L Hematocrit 28.6 L Mean Corpuscular Volume 90.8 Mean Corpuscular Hemoglobin 29.8 Mean Corpuscular Hemoglobin Concent 32.9 Red Cell Distribution Width 13.7 Platelet Count 77 L Mean Platelet Volume 9.8 Neutrophils % 81.1 H Lymphocytes % 10.2 L Monocytes % 7.1 Eosinophils % 0.4 Basophils % 0.2 Nucleated Red Blood Cells % 0.0 Neutrophils # 9.0 H Lymphocytes # 1.1 Monocytes # 0.8 Eosinophils # 0.0 Basophils # 0.0 Nucleated Red Blood Cells # 0.0 Test 04/21/17 04:40 04/21/17 07:50 Sodium Level 133 L Potassium Level 3.9 Chloride Level 97 Carbon Dioxide Level 32 H Anion Gap 8 Blood Urea Nitrogen 6 L Creatinine 0.45 Glucose Level 118 Calcium Level 8.2 L Bedside Glucose 119 Medications Current Medications Linezolid (Zyvox 600mg/D5W (Pmx)) 300 ml @ 300 mls/hr Q12 IVPB Last administered on 04/21/17 08:32; Admin Dose 300 MLS/HR; Start 04/13/17 at 21:00 Diagnostic Test (Pha) (Accu-Chek) 1 ea 02 XX Last administered on 04/15/17 02: 00; Admin Dose 1 EA; Start 04/14/17 at 02:00 Miscellaneous Information 1 ea NOTE XX ; Start 04/13/17 at 21:30 Glucose (Glutose) 15 gm Q15M PRN PO DECREASED GLUCOSE; Start 04/13/17 at 21:30 Glucose (Glutose) 22.5 gm Q15M PRN PO DECREASED GLUCOSE; Start 04/13/17 at 21: 30 Dextrose (D50w Syringe) 25 ml Q15M PRN IV DECREASED GLUCOSE; Start 04/13/17 at 21:30 Dextrose (D50w Syringe) 50 ml Q15M PRN IV DECREASED GLUCOSE; Start 04/13/17 at 21:30 Glucagon (Glucagen) 1 mg Q15M PRN IM DECREASED GLUCOSE; Start 04/13/17 at 21:30 Glucose (Glutose) 15 gm Q15M PRN BUCCAL DECREASED GLUCOSE; Start 04/13/17 at 21 :30 Ondansetron HCl (Zofran Inj) 4 mg Q6 PRN IV NAUSEA AND/OR VOMITING; Start 04/13 at 21:30 Guaifenesin/ Dextromethorphan (Robitussin Dm Liquid Cup) 5 ml Q4H PRN PO COUGH Last administered on 04/19/17 05:09; Admin Dose 5 ML; Start 04/15/17 at 16:30 Pantoprazole (Protonix Tab) 40 mg DAILY@06 PO Last administered on 04/21/17 05 :23; Admin Dose 40 MG; Start 04/17/17 at 06:00 Acetaminophen (Tylenol Tab) 500 mg Q6H PRN PO PAIN AND OR ELEVATED TEMP Last administered on 04/21/17 01:54; Admin Dose 500 MG; Start 04/17/17 at 03:00 Magnesium Hydroxide 30 ml 30 ml DAILY PRN PO CONSTIPATION; Start 04/17/17 at 11 :30 Ampicillin Sodium/ Sulbactam Sodium (Unasyn 1.5gm/NS (Pmx)) 50 ml @ 100 mls/hr Q6 IVPB Last administered on 04/21/17 05:23; Admin Dose 100 MLS/HR; Start at 18:00 Furosemide (Lasix) 20 mg DAILY@06 IV Last administered on 04/21/17 05:23; Admin Dose 20 MG; Start 04/18/17 at 18:30 Mineral Oil (Mineral Oil) 30 ml TID PO Last administered on 04/21/17 08:35; Admin Dose 30 ML; Start 04/20/17 at 18:30 Assessment/Plan Chief Complaint/Hosp Course Assessment 1. Loculated pleural effusion likely secondary to hepatic process 2. Hepatic hydrothorax 3. Liver abscesses with gamma hemolytic strep Plan 1. Continue antibiotics per ID 2. Chest tube placement for pleural effusion 3. Encourage out of bed as tolerated discussed with patient via security chief museum. Problems: DENISE BRAVO MD, [facility] Apr 21, 2017 12:02
[2017-04-21 14:00] VITALS: BP 114/64; RESP 18
--- NOTE | 2017-04-21 14:15 | CONS ---
Date/Time of Note Date/Time of Note DATE: 04/21/17 TIME: 14:12 Assessment/Plan Assessment/Plan Chief Complaint/Hosp Course Problems: Additional Assessment/Plan 1. Acute hyponatremia 2/2 Hypovolemic hyponatremia 2. sepsis due to liver abscess 3. Hepatic abscess oN CT scan s/p CT guided drainage on 04/15/17 4. Acute transaminitis 5. h/o Colon CA s/p previous Surgery 6. Hypokalemia Plan : Wound cx grew hemolytic steptococci, Continue IV abx Unasyn and Linezolid, monitor electrolytes and renal function watch for metabolic acidosis since pt has been getting iV zyvox Cr stable, will follow up Consultation Date/Type/Reason Admit Date/Time Apr 13, 2017 at 19:51 Initial Consult Date 04/13/17 Type of Consultation: NEPHROLOGY Referring Provider: DARREL BURT MD 24 HR Interval Summary Free Text/Dictation pt stable,a febrile, BP stable WBC 11.1, Na 131 Exam/Review of Systems Vital Signs Vitals Vital Signs Date Time Temp Pulse Resp B/P Pulse Ox O2 Delivery O2 Flow Rate FiO2 04/21/17 13:28 5.0 04/21/17 09:24 95 107/59 04/21/17 08:20 Nasal Cannula 04/21/17 08:00 98.5 21 96 Intake and Output 04/20/17 04/20/17 04/21/17 15:00 23:00 07:00 Intake Total 300 ml 1620 ml 540 ml Output Total 1900 ml Balance 300 ml -280 ml 540 ml Exam Constitutional: alert Psych: no complaints Head: normocephalic ENMT: nl external ears & nose Neck: non-tender, supple Respiratory: clear to auscultation, diminished breath sounds, normal air movement Cardiovascular: nl pulses, regular rate and rhythm Gastrointestinal: non-tender, soft Musculoskeletal: nl extremities to inspection 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: PERFORMANCE ARCHITECT II-XII intact, 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, nl speech, nl strength Results Result Diagram: 04/21/17 0430 04/21/17 0440 Results 24 hrs Laboratory Tests Test 04/20/17 17:07 04/20/17 21:43 04/21/17 04:30 04/21/17 04:40 Bedside Glucose 155 126 White Blood Count 11.1 H Red Blood Count 3.15 L Hemoglobin 9.4 L Hematocrit 28.6 L Mean Corpuscular Volume 90.8 Mean Corpuscular Hemoglobin 29.8 Mean Corpuscular Hemoglobin Concent 32.9 Red Cell Distribution Width 13.7 Platelet Count 77 L Mean Platelet Volume 9.8 Neutrophils % 81.1 H Lymphocytes % 10.2 L Monocytes % 7.1 Eosinophils % 0.4 Basophils % 0.2 Nucleated Red Blood Cells % 0.0 Neutrophils # 9.0 H Lymphocytes # 1.1 Monocytes # 0.8 Eosinophils # 0.0 Basophils # 0.0 Nucleated Red Blood Cells # 0.0 Sodium Level 133 L Potassium Level 3.9 Chloride Level 97 Carbon Dioxide Level 32 H Anion Gap 8 Blood Urea Nitrogen 6 L Creatinine 0.45 Glucose Level 118 Calcium Level 8.2 L Test 04/21/17 07:50 04/21/17 12:02 Bedside Glucose 119 132 Medications Medications Current Medications Linezolid (Zyvox 600mg/D5W (Pmx)) 300 ml @ 300 mls/hr Q12 IVPB Last administered on 04/21/17 08:32; Admin Dose 300 MLS/HR; Start 04/13/17 at 21:00 Diagnostic Test (Pha) (Accu-Chek) 1 ea 02 XX Last administered on 04/15/17 02: 00; Admin Dose 1 EA; Start 04/14/17 at 02:00 Miscellaneous Information 1 ea NOTE XX ; Start 04/13/17 at 21:30 Glucose (Glutose) 15 gm Q15M PRN PO DECREASED GLUCOSE; Start 04/13/17 at 21:30 Glucose (Glutose) 22.5 gm Q15M PRN PO DECREASED GLUCOSE; Start 04/13/17 at 21: 30 Dextrose (D50w Syringe) 25 ml Q15M PRN IV DECREASED GLUCOSE; Start 04/13/17 at 21:30 Dextrose (D50w Syringe) 50 ml Q15M PRN IV DECREASED GLUCOSE; Start 04/13/17 at 21:30 Glucagon (Glucagen) 1 mg Q15M PRN IM DECREASED GLUCOSE; Start 04/13/17 at 21:30 Glucose (Glutose) 15 gm Q15M PRN BUCCAL DECREASED GLUCOSE; Start 04/13/17 at 21 :30 Ondansetron HCl (Zofran Inj) 4 mg Q6 PRN IV NAUSEA AND/OR VOMITING; Start 04/13 at 21:30 Guaifenesin/ Dextromethorphan (Robitussin Dm Liquid Cup) 5 ml Q4H PRN PO COUGH Last administered on 04/19/17 05:09; Admin Dose 5 ML; Start 04/15/17 at 16:30 Pantoprazole (Protonix Tab) 40 mg DAILY@06 PO Last administered on 04/21/17 05 :23; Admin Dose 40 MG; Start 04/17/17 at 06:00 Acetaminophen (Tylenol Tab) 500 mg Q6H PRN PO PAIN AND OR ELEVATED TEMP Last administered on 04/21/17 14:04; Admin Dose 500 MG; Start 04/17/17 at 03:00 Magnesium Hydroxide 30 ml 30 ml DAILY PRN PO CONSTIPATION; Start 04/17/17 at 11 :30 Ampicillin Sodium/ Sulbactam Sodium (Unasyn 1.5gm/NS (Pmx)) 50 ml @ 100 mls/hr Q6 IVPB Last administered on 04/21/17 12:18; Admin Dose 100 MLS/HR; Start at 18:00 Furosemide (Lasix) 20 mg DAILY@06 IV Last administered on 04/21/17 05:23; Admin Dose 20 MG; Start 04/18/17 at 18:30 Mineral Oil (Mineral Oil) 30 ml TID PO Last administered on 04/21/17 12:22; Admin Dose 30 ML; Start 04/20/17 at 18:30 NGOC GARZA MD Apr 21, 2017 14:15
--- NOTE | 2017-04-21 14:22 | PN ---
Date/Time of Note Date/Time of Note DATE: 04/21/17 TIME: 14:13 Assessment/Plan VTE Prophylaxis VTE Prophylaxis Intervention: ambulation, SCD's Lines/Catheters IV [facility] Urinary Cath still in place: No Assessment/Plan Assessment/Plan 66 years old with liver abscess loculated. Status post percutaneous drainage of part of the liver abscess. Culture grew joe hemolytic Streptococcus. Dr. dorantes, skein winding operator has requested percutaneous placement of chest tube for loculated pleural effusion on the right side. We evaluated the CT scan along with Dr. Clinton ,he is going to talk with Dr. Decker to evaluate the possibility of placement of other percutaneous drainage tubes into the liver abscesses. Subjective 24 Hr Interval Summary Free Text/Dictation Still complaining of shortness of breath. No abdominal pain. No nausea no vomiting. Yesterday had some thoracentesis on the right side in radiology 210 cc was aspirated patient states that it helped her breathing a little bit but not a lot. Exam/Review of Systems Vital Signs Vitals Vital Signs Date Time Temp Pulse Resp B/P Pulse Ox O2 Delivery O2 Flow Rate FiO2 04/21/17 13:28 5.0 04/21/17 09:24 95 107/59 04/21/17 08:20 Nasal Cannula 04/21/17 08:00 98.5 21 96 Intake and Output 04/20/17 04/20/17 04/21/17 15:00 23:00 07:00 Intake Total 300 ml 1620 ml 540 ml Output Total 1900 ml Balance 300 ml -280 ml 540 ml Exam Alert awake oriented 3. Vital signs stable. Impression 98.5. CBC 11,100 with 81% neutrophils. Lungs decreased breathing sound on the right side. Abdomen is soft no masses no tenderness. Legs no calf tenderness. Results Result Diagram: 04/21/17 0430 04/21/17 0440 Results 24 hrs Laboratory Tests Test 04/20/17 17:07 04/20/17 21:43 04/21/17 04:30 04/21/17 04:40 Bedside Glucose 155 126 White Blood Count 11.1 H Red Blood Count 3.15 L Hemoglobin 9.4 L Hematocrit 28.6 L Mean Corpuscular Volume 90.8 Mean Corpuscular Hemoglobin 29.8 Mean Corpuscular Hemoglobin Concent 32.9 Red Cell Distribution Width 13.7 Platelet Count 77 L Mean Platelet Volume 9.8 Neutrophils % 81.1 H Lymphocytes % 10.2 L Monocytes % 7.1 Eosinophils % 0.4 Basophils % 0.2 Nucleated Red Blood Cells % 0.0 Neutrophils # 9.0 H Lymphocytes # 1.1 Monocytes # 0.8 Eosinophils # 0.0 Basophils # 0.0 Nucleated Red Blood Cells # 0.0 Sodium Level 133 L Potassium Level 3.9 Chloride Level 97 Carbon Dioxide Level 32 H Anion Gap 8 Blood Urea Nitrogen 6 L Creatinine 0.45 Glucose Level 118 Calcium Level 8.2 L Test 04/21/17 07:50 04/21/17 12:02 Bedside Glucose 119 132 Medications Medications Current Medications Linezolid (Zyvox 600mg/D5W (Pmx)) 300 ml @ 300 mls/hr Q12 IVPB Last administered on 04/21/17 08:32; Admin Dose 300 MLS/HR; Start 04/13/17 at 21:00 Diagnostic Test (Pha) (Accu-Chek) 1 ea 02 XX Last administered on 04/15/17 02: 00; Admin Dose 1 EA; Start 04/14/17 at 02:00 Miscellaneous Information 1 ea NOTE XX ; Start 04/13/17 at 21:30 Glucose (Glutose) 15 gm Q15M PRN PO DECREASED GLUCOSE; Start 04/13/17 at 21:30 Glucose (Glutose) 22.5 gm Q15M PRN PO DECREASED GLUCOSE; Start 04/13/17 at 21: 30 Dextrose (D50w Syringe) 25 ml Q15M PRN IV DECREASED GLUCOSE; Start 04/13/17 at 21:30 Dextrose (D50w Syringe) 50 ml Q15M PRN IV DECREASED GLUCOSE; Start 04/13/17 at 21:30 Glucagon (Glucagen) 1 mg Q15M PRN IM DECREASED GLUCOSE; Start 04/13/17 at 21:30 Glucose (Glutose) 15 gm Q15M PRN BUCCAL DECREASED GLUCOSE; Start 04/13/17 at 21 :30 Ondansetron HCl (Zofran Inj) 4 mg Q6 PRN IV NAUSEA AND/OR VOMITING; Start 04/13 at 21:30 Guaifenesin/ Dextromethorphan (Robitussin Dm Liquid Cup) 5 ml Q4H PRN PO COUGH Last administered on 04/19/17 05:09; Admin Dose 5 ML; Start 04/15/17 at 16:30 Pantoprazole (Protonix Tab) 40 mg DAILY@06 PO Last administered on 04/21/17 05 :23; Admin Dose 40 MG; Start 04/17/17 at 06:00 Acetaminophen (Tylenol Tab) 500 mg Q6H PRN PO PAIN AND OR ELEVATED TEMP Last administered on 04/21/17 14:04; Admin Dose 500 MG; Start 04/17/17 at 03:00 Magnesium Hydroxide 30 ml 30 ml DAILY PRN PO CONSTIPATION; Start 04/17/17 at 11 :30 Ampicillin Sodium/ Sulbactam Sodium (Unasyn 1.5gm/NS (Pmx)) 50 ml @ 100 mls/hr Q6 IVPB Last administered on 04/21/17 12:18; Admin Dose 100 MLS/HR; Start at 18:00 Furosemide (Lasix) 20 mg DAILY@06 IV Last administered on 04/21/17 05:23; Admin Dose 20 MG; Start 04/18/17 at 18:30 Mineral Oil (Mineral Oil) 30 ml TID PO Last administered on 04/21/17 12:22; Admin Dose 30 ML; Start 04/20/17 at 18:30 JOHN BURGOS MD Apr 21, 2017 14:22
[2017-04-21 15:35] LABS: INR 1.1; PROTIME 14.2 Sec (12.2-14.2); PT RATIO 1.1
[2017-04-21 15:36] LABS: PARTIAL THROMBOPLASTIN TIME 29.7 Sec (25.0-35.0)
--- NOTE | 2017-04-21 16:19 | CONS ---
Date/Time of Note Date/Time of Note DATE: 04/21/17 TIME: 16:13 Assessment/Plan Assessment/Plan Chief Complaint/Hosp Course - Severe sepsis 2/2 to liver abscess - improving - Liver abscess s/p CT guided drainage catheter placement 04/15/2017; cx +gamma hemolytic strep - Bilateral pleural effusions, R>L, s/p R thoracentesis with ~ 0.21 L of serous fluid aspirated on 04/20/2017 - Hepatic hydrothorax per Pulmonary - Hypotension - resolved with IVF - Normocytic anemia requiring blood transfusion - Coagulopathy - improved - Transaminitis - slowly improving - Hyponatremia on admission - improved - CoNS in urine culture with trivial pyuria, likely contaminant; pt asymptomatic - Hx of rectal CA s/p Low anterior resection 08/29/2016 Recommendations: - Pt awaiting chest tube placement - pending: pleural fluid culture (NTD( - continue Unasyn (04/18/2017-) x 10 days; s/p linezolid and pip/tazo - repeat imaging prior to antibiotic cessation to ensure resolution - monitor output - probiotics Management d/w patient, [place], and Dr. Diana Problems: Consultation Date/Type/Reason Admit Date/Time Apr 13, 2017 at 19:51 Initial Consult Date 04/15/17 Type of Consultation: Infectious Disease Referring Provider: DARREL BURT MD 24 HR Interval Summary Free Text/Dictation S/p R thoracentesis yesterday and pt still SOB and requiring O2 at 5L via NC. Post-thoracentesis CXR shows loculated pleural effusion and plan is for chest tube placement per d/w nursing staff. SOB unchanged. Denies pain, n/v. Exam/Review of Systems Vital Signs Vitals Vital Signs Date Time Temp Pulse Resp B/P Pulse Ox O2 Delivery O2 Flow Rate FiO2 04/21/17 14:00 98.9 99 18 114/64 97 04/21/17 13:28 5.0 04/21/17 08:20 Nasal Cannula Intake and Output 04/20/17 04/20/17 04/21/17 15:00 23:00 07:00 Intake Total 300 ml 1620 ml 540 ml Output Total 1900 ml Balance 300 ml -280 ml 540 ml Exam Constitutional: alert, oriented, other (thin), well developed Psych: nl mood/affect Head: atraumatic, normocephalic Eyes: nl conjunctiva, nl lids ENMT: mucosa pink and moist, nl lips & teeth Neck: supple Respiratory: diminished breath sounds (R>L), normal air movement Cardiovascular: nl pulses, regular rate and rhythm Gastrointestinal: bowel sounds, other (External drainage catheter connected to accordian bag), soft, surgical scars (low ML scar well healed) Musculoskeletal: nl extremities to inspection Extremities: normal pulses 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: 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, nl speech (Sinhala speaking) Skin: nl turgor, No rash or lesions Results Result Diagram: 04/21/17 0430 04/21/17 0440 Results 24 hrs Laboratory Tests Test 04/20/17 17:07 04/20/17 21:43 04/21/17 04:30 04/21/17 04:40 Bedside Glucose 155 126 White Blood Count 11.1 H Red Blood Count 3.15 L Hemoglobin 9.4 L Hematocrit 28.6 L Mean Corpuscular Volume 90.8 Mean Corpuscular Hemoglobin 29.8 Mean Corpuscular Hemoglobin Concent 32.9 Red Cell Distribution Width 13.7 Platelet Count 77 L Mean Platelet Volume 9.8 Neutrophils % 81.1 H Lymphocytes % 10.2 L Monocytes % 7.1 Eosinophils % 0.4 Basophils % 0.2 Nucleated Red Blood Cells % 0.0 Neutrophils # 9.0 H Lymphocytes # 1.1 Monocytes # 0.8 Eosinophils # 0.0 Basophils # 0.0 Nucleated Red Blood Cells # 0.0 Sodium Level 133 L Potassium Level 3.9 Chloride Level 97 Carbon Dioxide Level 32 H Anion Gap 8 Blood Urea Nitrogen 6 L Creatinine 0.45 Glucose Level 118 Calcium Level 8.2 L Test 04/21/17 07:50 04/21/17 12:02 04/21/17 14:53 Bedside Glucose 119 132 Prothrombin Time 14.2 # Prothrombin Time Ratio 1.1 INR International Normalized Ratio 1.10 Activated Partial Thromboplast Time 29.7 Medications Medications Current Medications Linezolid (Zyvox 600mg/D5W (Pmx)) 300 ml @ 300 mls/hr Q12 IVPB Last administered on 04/21/17 08:32; Admin Dose 300 MLS/HR; Start 04/13/17 at 21:00 Diagnostic Test (Pha) (Accu-Chek) 1 XX Last administered on 04/15/17 02: 00; Admin Dose 1 EA; Start 04/14/17 at 02:00 Miscellaneous Information 1 ea NOTE XX ; Start 04/13/17 at 21:30 Glucose (Glutose) 15 gm Q15M PRN PO DECREASED GLUCOSE; Start 04/13/17 at 21:30 Glucose (Glutose) 22.5 gm Q15M PRN PO DECREASED GLUCOSE; Start 04/13/17 at 21: 30 Dextrose (D50w Syringe) 25 ml Q15M PRN IV DECREASED GLUCOSE; Start 04/13/17 at 21:30 Dextrose (D50w Syringe) 50 ml Q15M PRN IV DECREASED GLUCOSE; Start 04/13/17 at 21:30 Glucagon (Glucagen) 1 mg Q15M PRN IM DECREASED GLUCOSE; Start 04/13/17 at 21:30 Glucose (Glutose) 15 gm Q15M PRN BUCCAL DECREASED GLUCOSE; Start 04/13/17 at 21 :30 Ondansetron HCl (Zofran Inj) 4 mg Q6 PRN IV NAUSEA AND/OR VOMITING; Start 04/13 at 21:30 Guaifenesin/ Dextromethorphan (Robitussin Dm Liquid Cup) 5 ml Q4H PRN PO COUGH Last administered on 04/19/17 05:09; Admin Dose 5 ML; Start 04/15/17 at 16:30 Pantoprazole (Protonix Tab) 40 mg DAILY@06 PO Last administered on 04/21/17 05 :23; Admin Dose 40 MG; Start 04/17/17 at 06:00 Acetaminophen (Tylenol Tab) 500 mg Q6H PRN PO PAIN AND OR ELEVATED TEMP Last administered on 04/21/17 14:04; Admin Dose 500 MG; Start 04/17/17 at 03:00 Magnesium Hydroxide 30 ml 30 ml DAILY PRN PO CONSTIPATION; Start 04/17/17 at 11 :30 Ampicillin Sodium/ Sulbactam Sodium (Unasyn 1.5gm/NS (Pmx)) 50 ml @ 100 mls/hr Q6 IVPB Last administered on 04/21/17 12:18; Admin Dose 100 MLS/HR; Start at 18:00 Furosemide (Lasix) 20 mg DAILY@06 IV Last administered on 04/21/17 05:23; Admin Dose 20 MG; Start 04/18/17 at 18:30 Mineral Oil (Mineral Oil) 30 ml TID PO Last administered on 04/21/17t 12:22; Admin Dose 30 ML; Start 04/20/17 at 18:30 Procedures Procedures CXR 04/20/2017: Interval increase in size of the bilateral pleural effusions, larger on the right and small to moderate on the left. No definite pneumothorax status post thoracentesis. Otherwise, no convincing interval change compared to chest radiograph from 2 days prior. HOWARD THOMAS STONE CHIMNEY MASON Apr 21, 2017 16:19
--- NOTE | 2017-04-21 17:55 | CONS ---
Date/Time of Note Date/Time of Note DATE: 04/21/17 TIME: 17:53 Assessment/Plan Assessment/Plan Additional Assessment/Plan 66-year-old female with a history of colon/rectal ca presenting with sepsis due to liver abscesses, whose course has been complicated by mild hypoxemic resp insufficiency with enlarging R.> L effusions. Plan for right chest tube placement after consent is obtained Consultation Date/Type/Reason Admit Date/Time Apr 13, 2017 at 19:51 Date of Consultation: Apr 21, 2017 Reason for Consultation Bilateral pleural effusions Hx of Present Illness 66-year-old female with a history of colon/rectal ca presenting with sepsis due to liver abscesses, whose course has been complicated by mild hypoxemic resp insufficiency with enlarging R.> L effusions. Constitutional: improved, requiring IVF, requiring O2 Eyes: no complaints ENT: no complaints, No bleeding, No congestion, No discharge, No dysphagia, No other, No pain, No sore throat Respiratory: no complaints, No cough, No other, No pain, No pleuritic pain, No shortness of breath, No sputum, No wheezing Cardiovascular: no complaints, No chest pain, No edema, No lightheadedness, No orthopenea, No other, No palpitations, No paroxysmal nocturnal dyspnea Gastrointestinal: pain, No blood, No constipation, No decreased appetite, No diarrhea, No flatus, No nausea, No no complaints, No other, No passing stool, No vomiting Genitourinary: no complaints, No bleeding, No discharge, No dysuria, No flank pain, No hematuria, No other Musculoskeletal: no complaints, No back pain, No bone/joint pain, No neck pain, No other, No restricted range of motion, No swelling Skin: no complaints, No bruising, No erythema, No laceration, No other, No pruritis, No rash, No skin lesions Neurologic: no complaints Psychological: no complaints Past Medical History Medical History: no pertinent history, cancer, other (Colon cancer) Past Surgical History Past Surgical Hx: other (s/p surgery for colon CA ) Social History Alcohol Use: none Smoking Status: Never smoker Drug Use: none Exam/Review of Systems Vital Signs Vitals Vital Signs Date Time Temp Pulse Resp B/P Pulse Ox O2 Delivery O2 Flow Rate FiO2 04/21/17 14:00 98.9 99 18 114/64 97 04/21/17 13:28 5.0 04/21/17 08:20 Nasal Cannula Intake and Output 04/20/17 04/20/17 04/21/17 15:00 23:00 07:00 Intake Total 300 ml 1620 ml 540 ml Output Total 1900 ml Balance 300 ml -280 ml 540 ml Exam ENMT: nl external ears & nose, nl lips & teeth, nl nasal mucosa & septum Neck: non-tender, supple Respiratory: clear to auscultation, normal air movement Cardiovascular: nl pulses, regular rate and rhythm Results Result Diagram: 04/21/17 0430 04/21/17 0440 Results 24 hrs Laboratory Tests Test 04/20/17 21:43 04/21/17 04:30 04/21/17 04:40 04/21/17 07:50 Bedside Glucose 126 119 White Blood Count 11.1 H Red Blood Count 3.15 L Hemoglobin 9.4 L Hematocrit 28.6 L Mean Corpuscular Volume 90.8 Mean Corpuscular Hemoglobin 29.8 Mean Corpuscular Hemoglobin Concent 32.9 Red Cell Distribution Width 13.7 Platelet Count 77 L Mean Platelet Volume 9.8 Neutrophils % 81.1 H Lymphocytes % 10.2 L Monocytes % 7.1 Eosinophils % 0.4 Basophils % 0.2 Nucleated Red Blood Cells % 0.0 Neutrophils # 9.0 H Lymphocytes # 1.1 Monocytes # 0.8 Eosinophils # 0.0 Basophils # 0.0 Nucleated Red Blood Cells # 0.0 Sodium Level 133 L Potassium Level 3.9 Chloride Level 97 Carbon Dioxide Level 32 H Anion Gap 8 Blood Urea Nitrogen 6 L Creatinine 0.45 Glucose Level 118 Calcium Level 8.2 L Test 04/21/17 12:02 04/21/17 14:53 04/21/17 17:18 Bedside Glucose 132 143 Prothrombin Time 14.2 # Prothrombin Time Ratio 1.1 INR International Normalized Ratio 1.10 Activated Partial Thromboplast Time 29.7 Medications Medications Current Medications Diagnostic Test (Pha) (Accu-Chek) 1 ea XX Last administered on 04/15/17t 02: 00; Admin Dose 1 EA; Start 04/14/17 at 02:00 Miscellaneous Information 1 ea NOTE XX ; Start 04/13/17 at 21:30 Glucose (Glutose) 15 gm Q15M PRN PO DECREASED GLUCOSE; Start 04/13/17 at 21:30 Glucose (Glutose) 22.5 gm Q15M PRN PO DECREASED GLUCOSE; Start 04/13/17 at 21: 30 Dextrose (D50w Syringe) 25 ml Q15M PRN IV DECREASED GLUCOSE; Start 04/13/17 at 21:30 Dextrose (D50w Syringe) 50 ml Q15M PRN IV DECREASED GLUCOSE; Start 04/13/17 at 21:30 Glucagon (Glucagen) 1 mg Q15M PRN IM DECREASED GLUCOSE; Start 04/13/17 at 21:30 Glucose (Glutose) 15 gm Q15M PRN BUCCAL DECREASED GLUCOSE; Start 04/13/17 at 21 :30 Ondansetron HCl (Zofran Inj) 4 mg Q6 PRN IV NAUSEA AND/OR VOMITING; Start 04/13 at 21:30 Guaifenesin/ Dextromethorphan (Robitussin Dm Liquid Cup) 5 ml Q4H PRN PO COUGH Last administered on 04/19/17 05:09; Admin Dose 5 ML; Start 04/15/17 at 16:30 Pantoprazole (Protonix Tab) 40 mg DAILY@06 PO Last administered on 04/21/17 05 :23; Admin Dose 40 MG; Start 04/17/17 at 06:00 Acetaminophen (Tylenol Tab) 500 mg Q6H PRN PO PAIN AND OR ELEVATED TEMP Last administered on 04/21/17 14:04; Admin Dose 500 MG; Start 04/17/17 at 03:00 Magnesium Hydroxide 30 ml 30 ml DAILY PRN PO CONSTIPATION; Start 04/17/17 at 11 :30 Ampicillin Sodium/ Sulbactam Sodium (Unasyn 1.5gm/NS (Pmx)) 50 ml @ 100 mls/hr Q6 IVPB Last administered on 04/21/17 12:18; Admin Dose 100 MLS/HR; Start at 18:00 Furosemide (Lasix) 20 mg DAILY@06 IV Last administered on 04/21/17 05:23; Admin Dose 20 MG; Start 04/18/17 at 18:30 Mineral Oil (Mineral Oil) 30 ml TID PO Last administered on 04/21/17 12:22; Admin Dose 30 ML; Start 04/20/17 at 18:30 ADRIAN NO MD Apr 21, 2017 17:55
[2017-04-21 19:19] LABS: ABNORMAL IP MESSAGE 1; BASOPHILS % 0.2 % (0.0-2.0); EOSINOPHILS % 0.2 % (0.0-7.0); HEMATOCRIT 30.6 % (37.0-47.0); HEMOGLOBIN 10.2 g/dl (12.0-16.0); LYMPHOCYTES # 1.3 10^3/ul (0.8-2.9); LYMPHOCYTES % 9.9 % (15.0-51.0); MEAN CORPUSCULAR HEMOGLOBIN 30.9 pg (29.0-33.0); MEAN CORPUSCULAR HGB CONC 33.3 g/dl (32.0-37.0); MEAN CORPUSCULAR VOLUME 92.7 fl (82.0-101.0); MEAN PLATELET VOLUME 9.3 fl (7.4-10.4); MONOCYTE # 0.9 10^3/ul (0.3-0.9); MONOCYTES % 7.1 % (0.0-11.0); NEUTROPHIL # 10.3 10^3/ul (1.6-7.5); NEUTROPHILS % 81.6 % (39.0-77.0); PLATELET COUNT 83 10^3/UL (140-415); RED CELL DISTRIBUTION WIDTH 13.4 % (11.5-14.5); WHITE BLOOD COUNT 12.6 10^3/ul (4.8-10.8)
[2017-04-21 19:24] LABS: POSITIVE DIFF @See below
--- NOTE | 2017-04-21 19:33 | PN ---
Date/Time of Note Date/Time of Note DATE: 04/21/17 TIME: 19:30 Assessment/Plan VTE Prophylaxis VTE Prophylaxis Intervention: SCD's Lines/Catheters [facility] Urinary Cath still in place: No Assessment/Plan Chief Complaint/Hosp Course Assessment/Plan -Bilateral pleural effusions right more than left, status post right thoracentesis 04/20. Plan for right chest tube insertion by vascular surgery Dr. Jackson -Acute respiratory failure secondary to #1, Dr. Damico is following in pulmonology consultation continue oxygen oxygen supplementation - Severe sepsis 2/2 to liver abscess. Continue antibiotics per ID. Dr. Diana is following infection disease consultation - Liver abscess unchanged per recent CT, s/p CT guided drainage 04/15/2017 - Normocytic anemia requiring blood transfusion - Hx of rectal CA s/p Low anterior resection 08/29/2016 Further recommendations based on clinical course. Plan of care discussed with Dr. Dior Problems: Exam/Review of Systems Vital Signs Vitals Vital Signs Date Time Temp Pulse Resp B/P Pulse Ox O2 Delivery O2 Flow Rate FiO2 04/21/17 14:00 98.9 99 18 114/64 97 04/21/17 13:28 5.0 04/21/17 08:20 Nasal Cannula Intake and Output 04/20/17 04/20/17 04/21/17 15:00 23:00 07:00 Intake Total 300 ml 1620 ml 540 ml Output Total 1900 ml Balance 300 ml -280 ml 540 ml Exam Constitutional: alert Neck: supple Respiratory: diminished breath sounds Cardiovascular: nl pulses Gastrointestinal: other (Hepatic drain), soft Extremities: normal pulses Constitutional: alert, oriented, well developed Results Result Diagram: 04/21/17 1854 04/21/17 0440 Results 24 hrs Laboratory Tests Test 04/20/17 21:43 04/21/17 04:30 04/21/17 04:40 04/21/17 07:50 Bedside Glucose 126 119 White Blood Count 11.1 H Red Blood Count 3.15 L Hemoglobin 9.4 L Hematocrit 28.6 L Mean Corpuscular Volume 90.8 Mean Corpuscular Hemoglobin 29.8 Mean Corpuscular Hemoglobin Concent 32.9 Red Cell Distribution Width 13.7 Platelet Count 77 L Mean Platelet Volume 9.8 Neutrophils % 81.1 H Lymphocytes % 10.2 L Monocytes % 7.1 Eosinophils % 0.4 Basophils % 0.2 Nucleated Red Blood Cells % 0.0 Neutrophils # 9.0 H Lymphocytes # 1.1 Monocytes # 0.8 Eosinophils # 0.0 Basophils # 0.0 Nucleated Red Blood Cells # 0.0 Sodium Level 133 L Potassium Level 3.9 Chloride Level 97 Carbon Dioxide Level 32 H Anion Gap 8 Blood Urea Nitrogen 6 L Creatinine 0.45 Glucose Level 118 Calcium Level 8.2 L Test 04/21/17 12:02 04/21/17 14:53 04/21/17 17:18 04/21/17 18:54 Bedside Glucose 132 143 Prothrombin Time 14.2 # Prothrombin Time Ratio 1.1 INR International Normalized Ratio 1.10 Activated Partial Thromboplast Time 29.7 White Blood Count 12.6 H Red Blood Count 3.30 L Hemoglobin 10.2 L Hematocrit 30.6 L Mean Corpuscular Volume 92.7 Mean Corpuscular Hemoglobin 30.9 Mean Corpuscular Hemoglobin Concent 33.3 Red Cell Distribution Width 13.4 Platelet Count 83 L Mean Platelet Volume 9.3 Neutrophils % 81.6 H Lymphocytes % 9.9 L Monocytes % 7.1 Eosinophils % 0.2 Basophils % 0.2 Nucleated Red Blood Cells % 0.0 Neutrophils # 10.3 H Lymphocytes # 1.3 Monocytes # 0.9 Eosinophils # 0.0 Basophils # 0.0 Nucleated Red Blood Cells # 0.0 Medications Medications Current Medications Diagnostic Test (Pha) (Accu-Chek) 1 ea 02 XX Last administered on 04/15/17t 02: 00; Admin Dose 1 EA; Start 04/14/17 at 02:00 Miscellaneous Information 1 ea NOTE XX ; Start 04/13/17 at 21:30 Glucose (Glutose) 15 gm Q15M PRN PO DECREASED GLUCOSE; Start 04/13/17 at 21:30 Glucose (Glutose) 22.5 gm Q15M PRN PO DECREASED GLUCOSE; Start 04/13/17 at 21: 30 Dextrose (D50w Syringe) 25 ml Q15M PRN IV DECREASED GLUCOSE; Start 04/13/17 at 21:30 Dextrose (D50w Syringe) 50 ml Q15M PRN IV DECREASED GLUCOSE; Start 04/13/17 at 21:30 Glucagon (Glucagen) 1 mg Q15M PRN IM DECREASED GLUCOSE; Start 04/13/17 at 21:30 Glucose (Glutose) 15 gm Q15M PRN BUCCAL DECREASED GLUCOSE; Start 04/13/17 at 21 :30 Ondansetron HCl (Zofran Inj) 4 mg Q6 PRN IV NAUSEA AND/OR VOMITING; Start 04/13 at 21:30 Guaifenesin/ Dextromethorphan (Robitussin Dm Liquid Cup) 5 ml Q4H PRN PO COUGH Last administered on 04/19/17 05:09; Admin Dose 5 ML; Start 04/15/17 at 16:30 Pantoprazole (Protonix Tab) 40 mg DAILY@06 PO Last administered on 04/21/17 05 :23; Admin Dose 40 MG; Start 04/17/17 at 06:00 Acetaminophen (Tylenol Tab) 500 mg Q6H PRN PO PAIN AND OR ELEVATED TEMP Last administered on 04/21/17 14:04; Admin Dose 500 MG; Start 04/17/17 at 03:00 Magnesium Hydroxide 30 ml 30 ml DAILY PRN PO CONSTIPATION; Start 04/17/17 at 11 :30 Ampicillin Sodium/ Sulbactam Sodium (Unasyn 1.5gm/NS (Pmx)) 50 ml @ 100 mls/hr Q6 IVPB Last administered on 04/21/17 18:00; Admin Dose 100 MLS/HR; Start at 18:00 Furosemide (Lasix) 20 mg DAILY@06 IV Last administered on 04/21/17 05:23; Admin Dose 20 MG; Start 04/18/17 at 18:30 Mineral Oil (Mineral Oil) 30 ml TID PO Last administered on 04/21/17 12:22; Admin Dose 30 ML; Start 04/20/17 at 18:30 WINDY EMERY Apr 21, 2017 19:33
[2017-04-21 21:37] VITALS: BP 102/59; RESP 16
[2017-04-22] MEDS: AMPICILLIN/SULB 1.5GM/NS (PMX) 50 ML IVPB SCH ×5 (00:02→23:47)
[2017-04-22] MEDS: ACCU-CHEK XX SCH (02:00)
[2017-04-22 02:52] VITALS: BP 116/61; RESP 16
[2017-04-22] MEDS: ACETAMINOPHEN 500 MG TAB PO PRN ×2 (04:12→17:10)
[2017-04-22] MEDS ORDERED: FENTAnyl 50 MCG/ML VIAL IV PRN (05:00)
[2017-04-22 05:40] VITALS: BP 120/70; PULSE 95
[2017-04-22] MEDS: FENTAnyl PATCH 12 MCG/HR TRANSDERM SCH (05:43)
[2017-04-22] MEDS: PANTOPRAZOLE (EC) 40 MG TAB PO SCH (05:47)
[2017-04-22] MEDS: FUROSEMIDE 20 MG INJ IV SCH (05:47)
[2017-04-22 06:50] LABS: ABNORMAL IP MESSAGE 1; BASOPHILS % 0.3 % (0.0-2.0); EOSINOPHILS % 0.2 % (0.0-7.0); HEMATOCRIT 30.7 % (37.0-47.0); HEMOGLOBIN 10.5 g/dl (12.0-16.0); LYMPHOCYTES # 0.9 10^3/ul (0.8-2.9); LYMPHOCYTES % 6.7 % (15.0-51.0); MEAN CORPUSCULAR HEMOGLOBIN 31.2 pg (29.0-33.0); MEAN CORPUSCULAR HGB CONC 34.2 g/dl (32.0-37.0); MEAN CORPUSCULAR VOLUME 91.1 fl (82.0-101.0); MONOCYTE # 0.9 10^3/ul (0.3-0.9); MONOCYTES % 6.7 % (0.0-11.0); NEUTROPHIL # 11.1 10^3/ul (1.6-7.5); NEUTROPHILS % 85.2 % (39.0-77.0); RED BLOOD COUNT 3.37 10^6/ul (4.20-5.40); RED CELL DISTRIBUTION WIDTH 13.4 % (11.5-14.5)
[2017-04-22 06:58] LABS: PLATELET COUNT 92 10^3/UL (140-415); POSITIVE DIFF @See below
[2017-04-22 07:24] LABS: CALCIUM 8.6 mg/dl (8.4-10.2); CREATININE 0.38 mg/dl (0.44-1.00); PHOSPHORUS 3.7 mg/dl (2.5-4.9); POTASSIUM 3.6 mmol/L (3.5-5.1)
[2017-04-22] MEDS: Insulin NOVOLOG SS MILD Algorithm (SS with meals and bedtime) SC SCH ×4 (07:30→21:00)
[2017-04-22 08:00] VITALS: BP 95/56; RESP 22
--- NOTE | 2017-04-22 09:04 | RADRPT ---
PROCEDURE: XR Chest 1 View. CLINICAL INDICATION: Shortness of breath. TECHNIQUE: AP view of the chest was obtained. COMPARISON: DR CORTES 04/20/2017 FINDINGS: Borders are obscured by the opacities. Calcified atherosclerosis is noted in the aorta. Near comple te opacification of the right hemithorax is unchanged. Mild aeration of the right upper lobe remains . Retrocardiac opacity is stable. The osseous structures are osteopenic, but appear grossly intact. Multipurpose drain in the upper abdomen is stable. IMPRESSION: Calcified atherosclerosis in the aorta. Stable near complete opacification of the right hemithorax, likely corresponding to atelectasis/cons olidation of the right lung, combined with pleural effusion. Stable retrocardiac opacity that may reflect left lower lobe atelectasis or infiltrate combined with small pleural effusion. RPTAT: AA .Blayne Jamil MD, Date Time Electronically viewed and signed by .Blayne Jamil MD, on 04/22/2017 09:04 .P/
[2017-04-22] MEDS: MINERAL OIL 30ML CUP PO SCH ×3 (09:23→21:00)
--- NOTE | 2017-04-22 11:14 | CONS ---
Date/Time of Note Date/Time of Note DATE: 04/22/17 TIME: 11:08 Assessment/Plan Assessment/Plan Additional Assessment/Plan - Severe sepsis 2/2 to liver abscess - improving - Liver abscess s/p CT guided drainage catheter placement 04/15/2017; cx +gamma hemolytic strep - Bilateral pleural effusions, R>L, - s/p R thoracentesis with ~ 0.21 L of serous fluid aspirated on 04/20/2017 - 04/22 - Thoracentesis cancelled by dr Decker as not enough fluid , recommended chest tube placement. Scheduled today for Chest Tube placement by Dr Jackson - Hepatic hydrothorax per Pulmonary - Hypotension - resolved with IVF - Normocytic anemia requiring blood transfusion - Coagulopathy - improved - Transaminitis - slowly improving - Hyponatremia on admission - improved - CoNS in urine culture with trivial pyuria, likely contaminant; pt asymptomatic - Hx of rectal CA s/p Low anterior resection 08/29/2016 Recommendations: - Pt awaiting chest tube placement- scheduled today - 04/22/2017 - pending: pleural fluid culture (NTD) - continue Unasyn (04/18/2017-) x 10 days; s/p linezolid and pip/tazo - repeat imaging prior to antibiotic cessation to ensure resolution - monitor output- 1900ml /24 hrs - probiotics Management d/w patient, HA[place] Pena, and Dr. Diana Consultation Date/Type/Reason Admit Date/Time Apr 13, 2017 at 19:51 Initial Consult Date 04/15/17 Type of Consultation: Infectious Disease Referring Provider: DARREL BURT MD 24 HR Interval Summary Constitutional: requiring O2 Exam/Review of Systems Vital Signs Vitals Vital Signs Date Time Temp Pulse Resp B/P Pulse Ox O2 Delivery O2 Flow Rate FiO2 04/22/17 08:00 98.1 84 22 95/56 94 04/22/17 08:00 Nasal Cannula 5.0 Intake and Output 04/21/17 04/21/17 04/22/17 15:00 23:00 07:00 Intake Total 350 ml 1170 ml 580 ml Output Total 380 ml Balance 350 ml 1170 ml 200 ml Exam Constitutional: alert, frail, oriented Respiratory: diminished breath sounds Cardiovascular: nl pulses, regular rate and rhythm Gastrointestinal: other (SP Liver abcess drainage with -RUQ accordian in place. drained 15 cc), soft Musculoskeletal: nl extremities to inspection Extremities: normal pulses 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: 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, nl speech Results Result Diagram: 04/22/17 0624 04/22/17 0624 Results 24 hrs Laboratory Tests Test 04/21/17 12:02 04/21/17 14:53 04/21/17 17:18 04/21/17 18:54 Bedside Glucose 132 143 Prothrombin Time 14.2 # Prothrombin Time Ratio 1.1 INR International Normalized Ratio 1.10 Activated Partial Thromboplast Time 29.7 White Blood Count 12.6 H Red Blood Count 3.30 L Hemoglobin 10.2 L Hematocrit 30.6 L Mean Corpuscular Volume 92.7 Mean Corpuscular Hemoglobin 30.9 Mean Corpuscular Hemoglobin Concent 33.3 Red Cell Distribution Width 13.4 Platelet Count 83 L Mean Platelet Volume 9.3 Neutrophils % 81.6 H Lymphocytes % 9.9 L Monocytes % 7.1 Eosinophils % 0.2 Basophils % 0.2 Nucleated Red Blood Cells % 0.0 Neutrophils # 10.3 H Lymphocytes # 1.3 Monocytes # 0.9 Eosinophils # 0.0 Basophils # 0.0 Nucleated Red Blood Cells # 0.0 Test 04/21/17 21:49 04/22/17 06:24 04/22/17 07:51 Bedside Glucose 143 106 White Blood Count 13.0 H Red Blood Count 3.37 L Hemoglobin 10.5 L Hematocrit 30.7 L Mean Corpuscular Volume 91.1 Mean Corpuscular Hemoglobin 31.2 Mean Corpuscular Hemoglobin Concent 34.2 Red Cell Distribution Width 13.4 Platelet Count 92 L Mean Platelet Volume 9.0 Neutrophils % 85.2 H Lymphocytes % 6.7 L Monocytes % 6.7 Eosinophils % 0.2 Basophils % 0.3 Nucleated Red Blood Cells % 0.0 Neutrophils # 11.1 H Lymphocytes # 0.9 Monocytes # 0.9 Eosinophils # 0.0 Basophils # 0.0 Nucleated Red Blood Cells # 0.0 Sodium Level 132 L Potassium Level 3.6 Chloride Level 96 L Carbon Dioxide Level 31 Anion Gap 9 Blood Urea Nitrogen 9 Creatinine 0.38 L Glucose Level 124 Calcium Level 8.6 Phosphorus Level 3.7 Magnesium Level 2.0 Medications Medications Current Medications Diagnostic Test (Pha) (Accu-Chek) 1 ea 02 XX Last administered on 04/15/17t 02: 00; Admin Dose 1 EA; Start 04/14/17 at 02:00 Miscellaneous Information 1 ea NOTE XX ; Start 04/13/17 at 21:30 Glucose (Glutose) 15 gm Q15M PRN PO DECREASED GLUCOSE; Start 04/13/17 at 21:30 Glucose (Glutose) 22.5 gm Q15M PRN PO DECREASED GLUCOSE; Start 04/13/17 at 21: 30 Dextrose (D50w Syringe) 25 ml Q15M PRN IV DECREASED GLUCOSE; Start 04/13/17 at 21:30 Dextrose (D50w Syringe) 50 ml Q15M PRN IV DECREASED GLUCOSE; Start 04/13/17 at 21:30 Glucagon (Glucagen) 1 mg Q15M PRN IM DECREASED GLUCOSE; Start 04/13/17 at 21:30 Glucose (Glutose) 15 gm Q15M PRN BUCCAL DECREASED GLUCOSE; Start 04/13/17 at 21 :30 Ondansetron HCl (Zofran Inj) 4 mg Q6 PRN IV NAUSEA AND/OR VOMITING; Start 04/13 at 21:30 Guaifenesin/ Dextromethorphan (Robitussin Dm Liquid Cup) 5 ml Q4H PRN PO COUGH Last administered on 04/19/17 05:09; Admin Dose 5 ML; Start 04/15/17 at 16:30 Pantoprazole (Protonix Tab) 40 mg DAILY@06 PO Last administered on 04/21/17 05 :23; Admin Dose 40 MG; Start 04/17/17 at 06:00 Acetaminophen (Tylenol Tab) 500 mg Q6H PRN PO PAIN AND OR ELEVATED TEMP Last administered on 04/22/17 04:12; Admin Dose 500 MG; Start 04/17/17 at 03:00 Magnesium Hydroxide 30 ml 30 ml DAILY PRN PO CONSTIPATION; Start 04/17/17 at 11 :30 Ampicillin Sodium/ Sulbactam Sodium (Unasyn 1.5gm/NS (Pmx)) 50 ml @ 100 mls/hr Q6 IVPB Last administered on 04/22/17 05:42; Admin Dose 100 MLS/HR; Start at 18:00 Furosemide (Lasix) 20 mg DAILY@06 IV Last administered on 04/22/17 05:47; Admin Dose 20 MG; Start 04/18/17 at 18:30 Mineral Oil (Mineral Oil) 30 ml TID PO Last administered on 04/22/17 09:23; Admin Dose 30 ML; Start 04/20/17 at 18:30 Fentanyl (Duragesic 12 Mcg/Hr Patch) 1 patch Q72H TRANSDERM Last administered on 04/22/17 05:43; Admin Dose 1 PATCH; Start 04/22/17 at 05:30 MESHA VELASQUEZ Apr 22, 2017 11:14
--- NOTE | 2017-04-22 13:22 | PN ---
Date/Time of Note Date/Time of Note DATE: 04/22/17 TIME: 13:13 Assessment/Plan VTE Prophylaxis VTE Prophylaxis Intervention: ambulation, SCD's Lines/Catheters IV C[facility]ter Type (from [facility] Sal[facility] Urinary Cath still in place: No Assessment/Plan Assessment/Plan 66-year-old female presented to emergency room with abdominal pain fever leukocytosis CT scan revealed presence of a large liver abscess loculated. Invasive radiology placed a pigtail in the abscess cavity it drained but follow- up CT scan revealed that several loculation still is present. While in the hospital patient has developed a large right pleural effusion. Thoracentesis was not adequate to drain the whole fluid. So Dr. Jackson cardiothoracic surgeon is planning to put chest tube. Per discussion between Dr. Clinton and Dr. Decker, apparently Dr. Bro has agreed to place another percutaneous drainage for the remaining of the liver abscesses. Surgery request for drainage placement was placed as an order. Subjective 24 Hr Interval Summary Free Text/Dictation Slightly short of breath. No fever no nausea no vomiting. Dr. Delfino Vigil the cardiothoracic surgeon is planning to put the chest tube for drainage of the right pleural effusion. Exam/Review of Systems Vital Signs Vitals Vital Signs Date Time Temp Pulse Resp B/P Pulse Ox O2 Delivery O2 Flow Rate FiO2 04/22/17 08:00 98.1 84 22 95/56 94 04/22/17 08:00 Nasal Cannula 5.0 Intake and Output 04/21/17 04/21/17 04/22/17 15:00 23:00 07:00 Intake Total 350 ml 1170 ml 580 ml Output Total 380 ml Balance 350 ml 1170 ml 200 ml Exam Awake alert oriented 3. Vital sign temperature 98 and 1 heart rate 84. Respiration 22. Blood pressure 95/56. Saturation 94% with 5 L of oxygen via nasal cannula. WBC 13,000 with 85% neutrophils. Platelet 92 Decreased. Heart regular lungs decreased breathing sound on the right side. Abdomen is soft. The drainage from previously placed pigtail catheter in the liver abscesses is serous in color. Results Result Diagram: 04/22/17 0624 04/22/17 0624 Results 24 hrs Laboratory Tests Test 04/21/17 14:53 04/21/17 17:18 04/21/17 18:54 04/21/17 21:49 Prothrombin Time 14.2 # Prothrombin Time Ratio 1.1 INR International Normalized Ratio 1.10 Activated Partial Thromboplast Time 29.7 Bedside Glucose 143 143 White Blood Count 12.6 H Red Blood Count 3.30 L Hemoglobin 10.2 L Hematocrit 30.6 L Mean Corpuscular Volume 92.7 Mean Corpuscular Hemoglobin 30.9 Mean Corpuscular Hemoglobin Concent 33.3 Red Cell Distribution Width 13.4 Platelet Count 83 L Mean Platelet Volume 9.3 Neutrophils % 81.6 H Lymphocytes % 9.9 L Monocytes % 7.1 Eosinophils % 0.2 Basophils % 0.2 Nucleated Red Blood Cells % 0.0 Neutrophils # 10.3 H Lymphocytes # 1.3 Monocytes # 0.9 Eosinophils # 0.0 Basophils # 0.0 Nucleated Red Blood Cells # 0.0 Test 04/22/17 06:24 04/22/17 07:51 04/22/17 11:49 White Blood Count 13.0 H Red Blood Count 3.37 L Hemoglobin 10.5 L Hematocrit 30.7 L Mean Corpuscular Volume 91.1 Mean Corpuscular Hemoglobin 31.2 Mean Corpuscular Hemoglobin Concent 34.2 Red Cell Distribution Width 13.4 Platelet Count 92 L Mean Platelet Volume 9.0 Neutrophils % 85.2 H Lymphocytes % 6.7 L Monocytes % 6.7 Eosinophils % 0.2 Basophils % 0.3 Nucleated Red Blood Cells % 0.0 Neutrophils # 11.1 H Lymphocytes # 0.9 Monocytes # 0.9 Eosinophils # 0.0 Basophils # 0.0 Nucleated Red Blood Cells # 0.0 Sodium Level 132 L Potassium Level 3.6 Chloride Level 96 L Carbon Dioxide Level 31 Anion Gap 9 Blood Urea Nitrogen 9 Creatinine 0.38 L Glucose Level 124 Calcium Level 8.6 Phosphorus Level 3.7 Magnesium Level 2.0 Bedside Glucose 106 162 Medications Medications Current Medications Diagnostic Test (Pha) (Accu-Chek) 1 ea XX Last administered on 04/15/17t 02: 00; Admin Dose 1 EA; Start 04/14/17 at 02:00 Miscellaneous Information 1 ea NOTE XX ; Start 04/13/17 at 21:30 Glucose (Glutose) 15 gm Q15M PRN PO DECREASED GLUCOSE; Start 04/13/17 at 21:30 Glucose (Glutose) 22.5 gm Q15M PRN PO DECREASED GLUCOSE; Start 04/13/17 at 21: 30 Dextrose (D50w Syringe) 25 ml Q15M PRN IV DECREASED GLUCOSE; Start 04/13/17 at 21:30 Dextrose (D50w Syringe) 50 ml Q15M PRN IV DECREASED GLUCOSE; Start 04/13/17 at 21:30 Glucagon (Glucagen) 1 mg Q15M PRN IM DECREASED GLUCOSE; Start 04/13/17 at 21:30 Glucose (Glutose) 15 gm Q15M PRN BUCCAL DECREASED GLUCOSE; Start 04/13/17 at 21 :30 Ondansetron HCl (Zofran Inj) 4 mg Q6 PRN IV NAUSEA AND/OR VOMITING; Start 04/13 at 21:30 Guaifenesin/ Dextromethorphan (Robitussin Dm Liquid Cup) 5 ml Q4H PRN PO COUGH Last administered on 04/19/17 05:09; Admin Dose 5 ML; Start 04/15/17 at 16:30 Pantoprazole (Protonix Tab) 40 mg DAILY@06 PO Last administered on 04/21/17 05 :23; Admin Dose 40 MG; Start 04/17/17 at 06:00 Acetaminophen (Tylenol Tab) 500 mg Q6H PRN PO PAIN AND OR ELEVATED TEMP Last administered on 04/22/17 04:12; Admin Dose 500 MG; Start 04/17/17 at 03:00 Magnesium Hydroxide 30 ml 30 ml DAILY PRN PO CONSTIPATION; Start 04/17/17 at 11 :30 Ampicillin Sodium/ Sulbactam Sodium (Unasyn 1.5gm/NS (Pmx)) 50 ml @ 100 mls/hr Q6 IVPB Last administered on 04/22/17 12:48; Admin Dose 100 MLS/HR; Start at 18:00 Furosemide (Lasix) 20 mg DAILY@06 IV Last administered on 04/22/17 05:47; Admin Dose 20 MG; Start 04/18/17 at 18:30 Mineral Oil (Mineral Oil) 30 ml TID PO Last administered on 04/22/17 12:48; Admin Dose 30 ML; Start 04/20/17 at 18:30 Fentanyl (Duragesic 12 Mcg/Hr Patch) 1 patch Q72H TRANSDERM Last administered on 04/22/17 05:43; Admin Dose 1 PATCH; Start 9/20/17 at 05:30 JOHN BURGOS MD Apr 22, 2017 13:22
--- NOTE | 2017-04-22 13:43 | PN ---
Date/Time of Note Date/Time of Note DATE: 04/22/17 TIME: 13:39 Assessment/Plan VTE Prophylaxis VTE Prophylaxis Intervention: SCD's Lines/Catheters IV [facility]ter Type [facility]from [facility] [place] [employer] line still needed: Yes Urinary Cath still in place: No Assessment/Plan Chief Complaint/Hosp Course Patient continues on supplemental oxygen, remains afebrile and hemodynamically stable, tolerates diet well. Assessment/Plan -Bilateral pleural effusions right more than left, status post right thoracentesis 04/20. Plan for right chest tube insertion by vascular surgery, Dr. Jackson -Acute respiratory failure secondary to #1, Dr. Damico is following in pulmonology consultation continue oxygen oxygen supplementation - Severe sepsis 2/2 to liver abscess. Continue antibiotics per ID. Dr. Diana is following infection disease consultation - Liver abscess unchanged per recent CT, s/p CT guided drainage 04/15/2017, pending percutaneous drainage insertion for remaining of the liver abscess. - Normocytic anemia requiring blood transfusion - Hx of rectal CA s/p Low anterior resection 08/29/2016 Further recommendations based on clinical course. Plan of care discussed with Dr. Dior Problems: Exam/Review of Systems Vital Signs Vitals Vital Signs Date Time Temp Pulse Resp B/P Pulse Ox O2 Delivery O2 Flow Rate FiO2 04/22/17 08:00 98.1 84 22 95/56 94 04/22/17 08:00 Nasal Cannula 5.0 Intake and Output 04/21/17 04/21/17 04/22/17 15:00 23:00 07:00 Intake Total 350 ml 1170 ml 580 ml Output Total 380 ml Balance 350 ml 1170 ml 200 ml Exam Constitutional: alert Neck: supple Respiratory: diminished breath sounds Cardiovascular: nl pulses Gastrointestinal: other (Hepatic drain), soft Extremities: normal pulses Constitutional: alert, oriented, well developed Results Result Diagram: 04/22/17 0624 04/22/17 0624 Results 24 hrs Laboratory Tests Test 04/21/17 14:53 04/21/17 17:18 04/21/17 18:54 04/21/17 21:49 Prothrombin Time 14.2 # Prothrombin Time Ratio 1.1 INR International Normalized Ratio 1.10 Activated Partial Thromboplast Time 29.7 Bedside Glucose 143 143 White Blood Count 12.6 H Red Blood Count 3.30 L Hemoglobin 10.2 L Hematocrit 30.6 L Mean Corpuscular Volume 92.7 Mean Corpuscular Hemoglobin 30.9 Mean Corpuscular Hemoglobin Concent 33.3 Red Cell Distribution Width 13.4 Platelet Count 83 L Mean Platelet Volume 9.3 Neutrophils % 81.6 H Lymphocytes % 9.9 L Monocytes % 7.1 Eosinophils % 0.2 Basophils % 0.2 Nucleated Red Blood Cells % 0.0 Neutrophils # 10.3 H Lymphocytes # 1.3 Monocytes # 0.9 Eosinophils # 0.0 Basophils # 0.0 Nucleated Red Blood Cells # 0.0 Test 04/22/17 06:24 04/22/17 07:51 04/22/17 11:49 White Blood Count 13.0 H Red Blood Count 3.37 L Hemoglobin 10.5 L Hematocrit 30.7 L Mean Corpuscular Volume 91.1 Mean Corpuscular Hemoglobin 31.2 Mean Corpuscular Hemoglobin Concent 34.2 Red Cell Distribution Width 13.4 Platelet Count 92 L Mean Platelet Volume 9.0 Neutrophils % 85.2 H Lymphocytes % 6.7 L Monocytes % 6.7 Eosinophils % 0.2 Basophils % 0.3 Nucleated Red Blood Cells % 0.0 Neutrophils # 11.1 H Lymphocytes # 0.9 Monocytes # 0.9 Eosinophils # 0.0 Basophils # 0.0 Nucleated Red Blood Cells # 0.0 Sodium Level 132 L Potassium Level 3.6 Chloride Level 96 L Carbon Dioxide Level 31 Anion Gap 9 Blood Urea Nitrogen 9 Creatinine 0.38 L Glucose Level 124 Calcium Level 8.6 Phosphorus Level 3.7 Magnesium Level 2.0 Bedside Glucose 106 162 Medications Medications Current Medications Diagnostic Test (Pha) (Accu-Chek) 1 ea 02 XX Last administered on 04/15/17t 02: 00; Admin Dose 1 EA; Start 04/14/17 at 02:00 Miscellaneous Information 1 ea NOTE XX ; Start 04/13/17 at 21:30 Glucose (Glutose) 15 gm Q15M PRN PO DECREASED GLUCOSE; Start 04/13/17 at 21:30 Glucose (Glutose) 22.5 gm Q15M PRN PO DECREASED GLUCOSE; Start 04/13/17 at 21: 30 Dextrose (D50w Syringe) 25 ml Q15M PRN IV DECREASED GLUCOSE; Start 04/13/17 at 21:30 Dextrose (D50w Syringe) 50 ml Q15M PRN IV DECREASED GLUCOSE; Start 04/13/17 at 21:30 Glucagon (Glucagen) 1 mg Q15M PRN IM DECREASED GLUCOSE; Start 04/13/17 at 21:30 Glucose (Glutose) 15 gm Q15M PRN BUCCAL DECREASED GLUCOSE; Start 04/13/17 at 21 :30 Ondansetron HCl (Zofran Inj) 4 mg Q6 PRN IV NAUSEA AND/OR VOMITING; Start 04/13 at 21:30 Guaifenesin/ Dextromethorphan (Robitussin Dm Liquid Cup) 5 ml Q4H PRN PO COUGH Last administered on 04/19/17 05:09; Admin Dose 5 ML; Start 04/15/17 at 16:30 Pantoprazole (Protonix Tab) 40 mg DAILY@06 PO Last administered on 04/21/17 05 :23; Admin Dose 40 MG; Start 04/17/17 at 06:00 Acetaminophen (Tylenol Tab) 500 mg Q6H PRN PO PAIN AND OR ELEVATED TEMP Last administered on 04/22/17 04:12; Admin Dose 500 MG; Start 04/17/17 at 03:00 Magnesium Hydroxide 30 ml 30 ml DAILY PRN PO CONSTIPATION; Start 04/17/17 at 11 :30 Ampicillin Sodium/ Sulbactam Sodium (Unasyn 1.5gm/NS (Pmx)) 50 ml @ 100 mls/hr Q6 IVPB Last administered on 04/22/17 12:48; Admin Dose 100 MLS/HR; Start at 18:00 Furosemide (Lasix) 20 mg DAILY@06 IV Last administered on 04/22/17 05:47; Admin Dose 20 MG; Start 04/18/17 at 18:30 Mineral Oil (Mineral Oil) 30 ml TID PO Last administered on 04/22/17 12:48; Admin Dose 30 ML; Start 04/20/17 at 18:30 Fentanyl (Duragesic 12 Mcg/Hr Patch) 1 patch Q72H TRANSDERM Last administered on 04/22/17 05:43; Admin Dose 1 PATCH; Start 04/22/17 at 05:30 WINDY EMERY Apr 22, 2017 13:43
[2017-04-22 14:00] VITALS: BP 101/51; RESP 20
--- NOTE | 2017-04-22 14:42 | CONS ---
Date/Time of Note Date/Time of Note DATE: 04/22/17 TIME: 14:41 Consult Date/Type/Reason Admit Date/Time Apr 13, 2017 at 19:51 Initial Consult Date 04/15/17 Type of Consultation: Pulmonary Ordering Provider: DARREL BURT MD Subjective Patient comfortable this morning. No new events Objective Vital Signs Date Time Temp Pulse Resp B/P Pulse Ox O2 Delivery O2 Flow Rate FiO2 04/22/17 08:00 98.1 84 22 95/56 94 04/22/17 08:00 Nasal Cannula 5.0 Intake and Output 04/21/17 04/21/17 04/22/17 15:00 23:00 07:00 Intake Total 350 ml 1170 ml 580 ml Output Total 380 ml Balance 350 ml 1170 ml 200 ml Exam Exam PHYSICAL EXAMINATION GENERAL: Elderly appearing lady VITAL SIGNS: see below. HEENT: Pupils equal, round, and reactive to light. CARDIAC: S1, S2, 1/6 systolic ejection murmur CHEST: Diminished air entry bilaterally. ABDOMEN: Mildly distended. Bowel sounds present no guarding or rebound EXTREMITIES: No cyanosis, clubbing edema +1 NEUROLOGIC: Generalized weakness Results/Medications Result Diagram: 04/22/17 0624 04/22/17 0624 Results 24 hrs Laboratory Tests Test 04/21/17 14:53 04/21/17 17:18 04/21/17 18:54 04/21/17 21:49 Prothrombin Time 14.2 # Prothrombin Time Ratio 1.1 INR International Normalized Ratio 1.10 Activated Partial Thromboplast Time 29.7 Bedside Glucose 143 143 White Blood Count 12.6 H Red Blood Count 3.30 L Hemoglobin 10.2 L Hematocrit 30.6 L Mean Corpuscular Volume 92.7 Mean Corpuscular Hemoglobin 30.9 Mean Corpuscular Hemoglobin Concent 33.3 Red Cell Distribution Width 13.4 Platelet Count 83 L Mean Platelet Volume 9.3 Neutrophils % 81.6 H Lymphocytes % 9.9 L Monocytes % 7.1 Eosinophils % 0.2 Basophils % 0.2 Nucleated Red Blood Cells % 0.0 Neutrophils # 10.3 H Lymphocytes # 1.3 Monocytes # 0.9 Eosinophils # 0.0 Basophils # 0.0 Nucleated Red Blood Cells # 0.0 Test 04/22/17 06:24 04/22/17 07:51 04/22/17 11:49 White Blood Count 13.0 H Red Blood Count 3.37 L Hemoglobin 10.5 L Hematocrit 30.7 L Mean Corpuscular Volume 91.1 Mean Corpuscular Hemoglobin 31.2 Mean Corpuscular Hemoglobin Concent 34.2 Red Cell Distribution Width 13.4 Platelet Count 92 L Mean Platelet Volume 9.0 Neutrophils % 85.2 H Lymphocytes % 6.7 L Monocytes % 6.7 Eosinophils % 0.2 Basophils % 0.3 Nucleated Red Blood Cells % 0.0 Neutrophils # 11.1 H Lymphocytes # 0.9 Monocytes # 0.9 Eosinophils # 0.0 Basophils # 0.0 Nucleated Red Blood Cells # 0.0 Sodium Level 132 L Potassium Level 3.6 Chloride Level 96 L Carbon Dioxide Level 31 Anion Gap 9 Blood Urea Nitrogen 9 Creatinine 0.38 L Glucose Level 124 Calcium Level 8.6 Phosphorus Level 3.7 Magnesium Level 2.0 Bedside Glucose 106 162 Medications Current Medications Diagnostic Test (Pha) (Accu-Chek) 1 ea 02 XX Last administered on 04/15/17 02: 00; Admin Dose 1 EA; Start 04/14/17 at 02:00 Miscellaneous Information 1 ea NOTE XX ; Start 04/13/17 at 21:30 Glucose (Glutose) 15 gm Q15M PRN PO DECREASED GLUCOSE; Start 04/13/17 at 21:30 Glucose (Glutose) 22.5 gm Q15M PRN PO DECREASED GLUCOSE; Start 04/13/17 at 21: 30 Dextrose (D50w Syringe) 25 ml Q15M PRN IV DECREASED GLUCOSE; Start 04/13/17 at 21:30 Dextrose (D50w Syringe) 50 ml Q15M PRN IV DECREASED GLUCOSE; Start 04/13/17 at 21:30 Glucagon (Glucagen) 1 mg Q15M PRN IM DECREASED GLUCOSE; Start 04/13/17 at 21:30 Glucose (Glutose) 15 gm Q15M PRN BUCCAL DECREASED GLUCOSE; Start 04/13/17 at 21 :30 Ondansetron HCl (Zofran Inj) 4 mg Q6 PRN IV NAUSEA AND/OR VOMITING; Start 04/13 at 21:30 Guaifenesin/ Dextromethorphan (Robitussin Dm Liquid Cup) 5 ml Q4H PRN PO COUGH Last administered on 04/19/17 05:09; Admin Dose 5 ML; Start 04/15/17 at 16:30 Pantoprazole (Protonix Tab) 40 mg DAILY@06 PO Last administered on 04/21/17 05 :23; Admin Dose 40 MG; Start 04/17/17 at 06:00 Acetaminophen (Tylenol Tab) 500 mg Q6H PRN PO PAIN AND OR ELEVATED TEMP Last administered on 04/22/17 04:12; Admin Dose 500 MG; Start 04/17/17 at 03:00 Magnesium Hydroxide 30 ml 30 ml DAILY PRN PO CONSTIPATION; Start 04/17/17 at 11 :30 Ampicillin Sodium/ Sulbactam Sodium (Unasyn 1.5gm/NS (Pmx)) 50 ml @ 100 mls/hr Q6 IVPB Last administered on 04/22/17 12:48; Admin Dose 100 MLS/HR; Start at 18:00 Furosemide (Lasix) 20 mg DAILY@06 IV Last administered on 04/22/17 05:47; Admin Dose 20 MG; Start 04/18/17 at 18:30 Mineral Oil (Mineral Oil) 30 ml TID PO Last administered on 04/22/17 12:48; Admin Dose 30 ML; Start 04/20/17 at 18:30 Fentanyl 1 patch 1 patch Q72H TRANSDERM Last administered on 04/22/17 05:43; Admin Dose 1 PATCH; Start 04/22/17 at 05:30 Dextrose/Sodium Chloride (D5-1/2ns) 1,000 ml @ 20 mls/hr Q24H IV ; Start at 00:00 Assessment/Plan Chief Complaint/Hosp Course Assessment 1. Loculated pleural effusion likely secondary to hepatic process 2. Hepatic hydrothorax 3. Liver abscesses with gamma hemolytic strep Plan 1. Continue antibiotics per ID 2. Chest tube placement for pleural effusion 3. Encourage out of bed as tolerated Problems: DENISE BRAVO MD, [facility] Apr 22, 2017 14:42
--- NOTE | 2017-04-22 15:38 | CONS ---
Date/Time of Note Date/Time of Note DATE: 04/22/17 TIME: 15:36 Assessment/Plan Assessment/Plan Chief Complaint/Hosp Course Problems: Additional Assessment/Plan 1. Acute hyponatremia 2/2 Hypovolemic hyponatremia 2. sepsis due to liver abscess 3. Hepatic abscess oN CT scan s/p CT guided drainage on 04/15/17 4. Acute transaminitis 5. h/o Colon CA s/p previous Surgery 6. Hypokalemia Plan : Wound cx grew hemolytic steptococci, Continue IV abx Unasyn and Linezolid, monitor electrolytes and renal function - Na 132, will d/c IVF for now , continue diet, when pt will be NPO we will consider starting IVF NS Cr stable, will follow up Consultation Date/Type/Reason Admit Date/Time Apr 13, 2017 at 19:51 Initial Consult Date 04/13/17 Type of Consultation: Pulmonary Referring Provider: DARREL BURT MD Exam/Review of Systems Vital Signs Vitals Vital Signs Date Time Temp Pulse Resp B/P Pulse Ox O2 Delivery O2 Flow Rate FiO2 04/22/17 08:00 98.1 84 22 95/56 94 04/22/17 08:00 Nasal Cannula 5.0 Intake and Output 04/21/17 04/21/17 04/22/17 15:00 23:00 07:00 Intake Total 350 ml 1170 ml 580 ml Output Total 380 ml Balance 350 ml 1170 ml 200 ml Exam Constitutional: alert Respiratory: clear to auscultation, diminished breath sounds, normal air movement Cardiovascular: nl pulses, regular rate and rhythm Gastrointestinal: non-tender, soft Musculoskeletal: nl extremities to inspection 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: ELECTRICIAN RADIO II-XII intact, 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, nl speech, nl strength Results Result Diagram: 04/22/1762304/22/17 0624 Results 24 hrs Laboratory Tests Test 04/21/17 17:18 04/21/17 18:54 04/21/17 21:49 04/22/17 06:24 Bedside Glucose 143 143 White Blood Count 12.6 H 13.0 H Red Blood Count 3.30 L 3.37 L Hemoglobin 10.2 L 10.5 L Hematocrit 30.6 L 30.7 L Mean Corpuscular Volume 92.7 91.1 Mean Corpuscular Hemoglobin 30.9 31.2 Mean Corpuscular Hemoglobin Concent 33.3 34.2 Red Cell Distribution Width 13.4 13.4 Platelet Count 83 L 92 L Mean Platelet Volume 9.3 9.0 Neutrophils % 81.6 H 85.2 H Lymphocytes % 9.9 L 6.7 L Monocytes % 7.1 6.7 Eosinophils % 0.2 0.2 Basophils % 0.2 0.3 Nucleated Red Blood Cells % 0.0 0.0 Neutrophils # 10.3 H 11.1 H Lymphocytes # 1.3 0.9 Monocytes # 0.9 0.9 Eosinophils # 0.0 0.0 Basophils # 0.0 0.0 Nucleated Red Blood Cells # 0.0 0.0 Sodium Level 132 L Potassium Level 3.6 Chloride Level 96 L Carbon Dioxide Level 31 Anion Gap 9 Blood Urea Nitrogen 9 Creatinine 0.38 L Glucose Level 124 Calcium Level 8.6 Phosphorus Level 3.7 Magnesium Level 2.0 Test 04/22/17 07:51 04/22/17 11:49 Bedside Glucose 106 162 Medications Medications Current Medications Diagnostic Test (Pha) (Accu-Chek) 1 ea 02 XX Last administered on 04/15/17t 02: 00; Admin Dose 1 EA; Start 04/14/17 at 02:00 Miscellaneous Information 1 ea NOTE XX ; Start 04/13/17 at 21:30 Glucose (Glutose) 15 gm Q15M PRN PO DECREASED GLUCOSE; Start 04/13/17 at 21:30 Glucose (Glutose) 22.5 gm Q15M PRN PO DECREASED GLUCOSE; Start 04/13/17 at 21: 30 Dextrose (D50w Syringe) 25 ml Q15M PRN IV DECREASED GLUCOSE; Start 04/13/17 at 21:30 Dextrose (D50w Syringe) 50 ml Q15M PRN IV DECREASED GLUCOSE; Start 04/13/17 at 21:30 Glucagon (Glucagen) 1 mg Q15M PRN IM DECREASED GLUCOSE; Start 04/13/17 at 21:30 Glucose (Glutose) 15 gm Q15M PRN BUCCAL DECREASED GLUCOSE; Start 04/13/17 at 21 :30 Ondansetron HCl (Zofran Inj) 4 mg Q6 PRN IV NAUSEA AND/OR VOMITING; Start 04/13 at 21:30 Guaifenesin/ Dextromethorphan (Robitussin Dm Liquid Cup) 5 ml Q4H PRN PO COUGH Last administered on 04/19/17 05:09; Admin Dose 5 ML; Start 04/15/17 at 16:30 Pantoprazole (Protonix Tab) 40 mg DAILY@06 PO Last administered on 04/21/17 05 :23; Admin Dose 40 MG; Start 04/17/17 at 06:00 Acetaminophen (Tylenol Tab) 500 mg Q6H PRN PO PAIN AND OR ELEVATED TEMP Last administered on 04/22/17 04:12; Admin Dose 500 MG; Start 04/17/17 at 03:00 Magnesium Hydroxide 30 ml 30 ml DAILY PRN PO CONSTIPATION; Start 04/17/17 at 11 :30 Ampicillin Sodium/ Sulbactam Sodium (Unasyn 1.5gm/NS (Pmx)) 50 ml @ 100 mls/hr Q6 IVPB Last administered on 04/22/17 12:48; Admin Dose 100 MLS/HR; Start at 18:00 Furosemide (Lasix) 20 mg DAILY@06 IV Last administered on 04/22/17 05:47; Admin Dose 20 MG; Start 04/18/17 at 18:30 Mineral Oil (Mineral Oil) 30 ml TID PO Last administered on 04/22/17 12:48; Admin Dose 30 ML; Start 04/20/17 at 18:30 Fentanyl 1 patch 1 patch Q72H TRANSDERM Last administered on 04/22/17 05:43; Admin Dose 1 PATCH; Start 04/22/17 at 05:30 Dextrose/Sodium Chloride (D5-1/2ns) 1,000 ml @ 20 mls/hr Q24H IV ; Start at 00:00 NGOC GARZA MD Apr 22, 2017 15:38
--- NOTE | 2017-04-22 16:09 | CONS ---
Date/Time of Note Date/Time of Note DATE: 04/22/17 TIME: 16:06 Assessment/Plan Assessment/Plan Chief Complaint/Hosp Course IMP: 1.Hypotension-reamains borderline/stable 2.abnl ecg-with ST elevations anterior-negative trop x 3/NL EF by echo. NO CP 3.Liver abscess s/p CT guided drainage 4.H/O lung ca s/p resection with lung nodules by CT? 5.Lung nodules Recc: -Now on med-surg -Continue abx's -F/U cx data -Follow BP closely -pain control Problems: Consultation Date/Type/Reason Admit Date/Time Apr 13, 2017 at 19:51 Initial Consult Date 04/13/17 Type of Consultation: cardiology Reason for Consultation chest pain Referring Provider: DARREL BURT MD Exam/Review of Systems Vital Signs Vitals Vital Signs Date Time Temp Pulse Resp B/P Pulse Ox O2 Delivery O2 Flow Rate FiO2 04/22/17 08:00 98.1 84 22 95/56 94 04/22/17 08:00 Nasal Cannula 5.0 Intake and Output 04/21/17 04/21/17 04/22/17 15:00 23:00 07:00 Intake Total 350 ml 1170 ml 580 ml Output Total 380 ml Balance 350 ml 1170 ml 200 ml Exam Review of Systems: CONSTITUTIONAL: No fevers, chills. PULMONARY: No sob CARDIOVASCULAR: No chest pain/palpitations GASTROINTESTINAL: No nausea/vomiting. GENITOURINARY: No hematuria/dysuria. MUSCULOSKELETAL: No myagias/arthalgias. PSYCHIATRIC: The patient denies depression. NEUROLOGIC: somewhat lethargic Constitutional: alert Psych: no complaints ENMT: mucosa pink and moist Neck: jvd (9 cm water), supple Respiratory: diminished breath sounds (at bases/B) Cardiovascular: regular rate and rhythm Gastrointestinal: non-tender, soft Musculoskeletal: muscle weakness (mild generalized) Extremities: edema (none) Results Result Diagram: 04/22/17 0624 04/22/17 0624 Results 24 hrs Laboratory Tests Test 04/21/17 17:18 04/21/17 18:54 04/21/17 21:49 04/22/17 06:24 Bedside Glucose 143 143 White Blood Count 12.6 H 13.0 H Red Blood Count 3.30 L 3.37 L Hemoglobin 10.2 L 10.5 L Hematocrit 30.6 L 30.7 L Mean Corpuscular Volume 92.7 91.1 Mean Corpuscular Hemoglobin 30.9 31.2 Mean Corpuscular Hemoglobin Concent 33.3 34.2 Red Cell Distribution Width 13.4 13.4 Platelet Count 83 L 92 L Mean Platelet Volume 9.3 9.0 Neutrophils % 81.6 H 85.2 H Lymphocytes % 9.9 L 6.7 L Monocytes % 7.1 6.7 Eosinophils % 0.2 0.2 Basophils % 0.2 0.3 Nucleated Red Blood Cells % 0.0 0.0 Neutrophils # 10.3 H 11.1 H Lymphocytes # 1.3 0.9 Monocytes # 0.9 0.9 Eosinophils # 0.0 0.0 Basophils # 0.0 0.0 Nucleated Red Blood Cells # 0.0 0.0 Sodium Level 132 L Potassium Level 3.6 Chloride Level 96 L Carbon Dioxide Level 31 Anion Gap 9 Blood Urea Nitrogen 9 Creatinine 0.38 L Glucose Level 124 Calcium Level 8.6 Phosphorus Level 3.7 Magnesium Level 2.0 Test 04/22/17 07:51 04/22/17 11:49 Bedside Glucose 106 162 Medications Medications Current Medications Diagnostic Test (Pha) (Accu-Chek) 1 ea 02 XX Last administered on 04/15/17t 02: 00; Admin Dose 1 EA; Start 04/14/17 at 02:00 Miscellaneous Information 1 ea NOTE XX ; Start 04/13/17 at 21:30 Glucose (Glutose) 15 gm Q15M PRN PO DECREASED GLUCOSE; Start 04/13/17 at 21:30 Glucose (Glutose) 22.5 gm Q15M PRN PO DECREASED GLUCOSE; Start 04/13/17 at 21: 30 Dextrose (D50w Syringe) 25 ml Q15M PRN IV DECREASED GLUCOSE; Start 04/13/17 at 21:30 Dextrose (D50w Syringe) 50 ml Q15M PRN IV DECREASED GLUCOSE; Start 04/13/17 at 21:30 Glucagon (Glucagen) 1 mg Q15M PRN IM DECREASED GLUCOSE; Start 04/13/17 at 21:30 Glucose (Glutose) 15 gm Q15M PRN BUCCAL DECREASED GLUCOSE; Start 04/13/17 at 21 :30 Ondansetron HCl (Zofran Inj) 4 mg Q6 PRN IV NAUSEA AND/OR VOMITING; Start 04/13 at 21:30 Guaifenesin/ Dextromethorphan (Robitussin Dm Liquid Cup) 5 ml Q4H PRN PO COUGH Last administered on 04/19/17 05:09; Admin Dose 5 ML; Start 04/15/17 at 16:30 Pantoprazole (Protonix Tab) 40 mg DAILY@06 PO Last administered on 04/21/17 05 :23; Admin Dose 40 MG; Start 04/17/17 at 06:00 Acetaminophen (Tylenol Tab) 500 mg Q6H PRN PO PAIN AND OR ELEVATED TEMP Last administered on 04/22/17 04:12; Admin Dose 500 MG; Start 04/17/17 at 03:00 Magnesium Hydroxide 30 ml 30 ml DAILY PRN PO CONSTIPATION; Start 04/17/17 at 11 :30 Ampicillin Sodium/ Sulbactam Sodium (Unasyn 1.5gm/NS (Pmx)) 50 ml @ 100 mls/hr Q6 IVPB Last administered on 04/22/17 12:48; Admin Dose 100 MLS/HR; Start at 18:00 Furosemide (Lasix) 20 mg DAILY@06 IV Last administered on 04/22/17 05:47; Admin Dose 20 MG; Start 04/18/17 at 18:30 Mineral Oil (Mineral Oil) 30 ml TID PO Last administered on 04/22/17 12:48; Admin Dose 30 ML; Start 04/20/17 at 18:30 Fentanyl (Duragesic 12 Mcg/Hr Patch) 1 patch Q72H TRANSDERM Last administered on 04/22/17 05:43; Admin Dose 1 PATCH; Start 04/22/17 at 05:30 LILIANA BARKSDALE Apr 22, 2017 16:08
[2017-04-22] MEDS ORDERED: LIDOCAINE 1% (MDV) 20 ML INJ ONE (18:25)
[2017-04-22] MEDS ORDERED: LIDOCAINE 1% (MDV) 20 ML INJ SC SCH (18:30)
[2017-04-22] MEDS ORDERED: morphine 4 MG/ML VIAL IV STA (18:39)
[2017-04-22] MEDS: ONDANSETRON 4 MG INJ IV PRN (18:43)
--- NOTE | 2017-04-22 19:37 | OPR ---
DATE OF OPERATION: 04/22/2017 SURGEON: Vamshi Jackson MD PREOPERATIVE DIAGNOSIS: Right pleural effusion. POSTOPERATIVE DIAGNOSIS: Right pleural effusion. OPERATION PERFORMED: Right 32-Vietnamese chest tube placement. ANESTHESIA: Local. OPERATIVE PROCEDURE: Discussed the complications, alternatives, therapies and high risk nature of the operation was explained to the patient, and consent obtained. The patient was placed supine position, prepped and draped in usual sterile fashion. Lidocaine 1 percent was discharged during the operation for local anesthesia. A time-out was called and I started. I made a 2 cm incision right 5th intercostal space, mid axillary line. Incision was taken down to subcutaneous tissue, which was opened using Metzenbaum scissors. Access was gained into the right pleural cavity. A 32-Vietnamese chest tube was advanced to 12 cm, secured to skin using silk sutures. Appropriate dressings were applied. Patient tolerated procedure well. Will repeat chest x- to evaluate the location of the chest tube. Dictated By: Vamshi Jackson MD /rachel/audelia /Document#: [id number]
[2017-04-22 20:33] VITALS: BP 113/61; RESP 18
[2017-04-22] MEDS: METOCLOPRAMIDE 10 MG INJ IV PRN (21:09)
--- NOTE | 2017-04-22 23:45 | RADRPT ---
PROCEDURE: XR Chest. CLINICAL INDICATION: Right chest tube placement. TECHNIQUE: Single frontal view of the chest. COMPARISON: Chest dated 04/13/2017 per FINDINGS: Near-complete opacification right hemithorax with new right lung base chest tube in place. Chest tub e tip and side port project over the expected location of the right lower thorax pleural space. Atel ectasis versus airspace disease at the right lung base. No signs of pleural fluid or pneumothorax ar e seen. The osseous structures and soft tissues are unremarkable. IMPRESSION: New right chest tube in place with near complete opacification of the right lung. RPTAT: [facility] Physician Manpreet Date Time Electronically viewed and signed by Physician Manpreet on 04/22/2017 23:45 RS/
[2017-04-22] MEDS: DEXTROSE 5%-0.45% NACL 1,000 ML IV SCH (23:47)
[2017-04-23] VITALS (14 sets, daily range): BP systolic 93–128; BP diastolic 57–71; PULSE 90–96; RESP 15–26
[2017-04-23] MEDS ORDERED: DEXTROSE 5%-0.45% NACL 1,000 ML IV SCH
[2017-04-23] MEDS: ACCU-CHEK XX SCH (02:00)
[2017-04-23] MEDS: ONDANSETRON 4 MG INJ IV PRN (04:05)
[2017-04-23] MEDS: morphine 2 MG INJ IV PRN (04:06)
[2017-04-23] MEDS: FUROSEMIDE 20 MG INJ IV SCH (05:44)
[2017-04-23] MEDS: AMPICILLIN/SULB 1.5GM/NS (PMX) 50 ML IVPB SCH ×3 (05:44→18:44)
[2017-04-23] MEDS: PANTOPRAZOLE (EC) 40 MG TAB PO SCH (05:48)
[2017-04-23] MEDS ORDERED: PROPOFOL 200 MG INJ ONE (07:00)
[2017-04-23 07:14] LABS: BASOPHILS % 0.2 % (0.0-2.0); EOSINOPHILS % 0.1 % (0.0-7.0); HEMATOCRIT 29.9 % (37.0-47.0); HEMOGLOBIN 9.9 g/dl (12.0-16.0); LYMPHOCYTES # 0.9 10^3/ul (0.8-2.9); LYMPHOCYTES % 5.1 % (15.0-51.0); MEAN CORPUSCULAR HGB CONC 33.1 g/dl (32.0-37.0); MEAN CORPUSCULAR VOLUME 90.6 fl (82.0-101.0); MEAN PLATELET VOLUME 9.4 fl (7.4-10.4); MONOCYTE # 1.3 10^3/ul (0.3-0.9); MONOCYTES % 7.2 % (0.0-11.0); NEUTROPHIL # 15.2 10^3/ul (1.6-7.5); NEUTROPHILS % 86.4 % (39.0-77.0); PLATELET COUNT 126 10^3/UL (140-415); RED CELL DISTRIBUTION WIDTH 13.5 % (11.5-14.5); WHITE BLOOD COUNT 17.6 10^3/ul (4.8-10.8)
[2017-04-23] MEDS: Insulin NOVOLOG SS MILD Algorithm (SS with meals and bedtime) SC SCH ×4 (07:30→21:00)
[2017-04-23 07:33] LABS: CALCIUM 8.5 mg/dl (8.4-10.2); CREATININE 0.37 mg/dl (0.44-1.00)
[2017-04-23] MEDS: MINERAL OIL 30ML CUP PO SCH ×2 (09:00→13:00)
--- NOTE | 2017-04-23 12:36 | CONS ---
Date/Time of Note Date/Time of Note DATE: 04/23/17 TIME: 12:35 Consult Date/Type/Reason Admit Date/Time Apr 13, 2017 at 19:51 Initial Consult Date 04/15/17 Type of Consultation: Pulm Ordering Provider: DARREL BURT MD Subjective Status post chest tube placement minimal drainage. Objective Vital Signs Date Time Temp Pulse Resp B/P Pulse Ox O2 Delivery O2 Flow Rate FiO2 04/23/17 08:24 98.5 95 17 110/57 94 04/23/17 08:00 Nasal Cannula 5.0 Intake and Output 04/22/17 04/22/17 04/23/17 15:00 23:00 07:00 Intake Total 50 ml 1010 ml 350 ml Output Total 45 ml 32 ml Balance 50 ml 965 ml 318 ml Exam PHYSICAL EXAMINATION GENERAL: Elderly appearing lady VITAL SIGNS: see below. HEENT: Pupils equal, round, and reactive to light. CARDIAC: S1, S2, 1/6 systolic ejection murmur CHEST: Diminished air entry bilaterally. Chest tube in place. ABDOMEN: Mildly distended. Bowel sounds present no guarding or rebound EXTREMITIES: No cyanosis, clubbing edema +1 NEUROLOGIC: Generalized weakness Results/Medications Result Diagram: 04/23/17 0556 04/23/17 0556 Results 24 hrs Laboratory Tests Test 04/22/17 17:15 04/22/17 21:13 04/23/17 05:56 04/23/17 08:10 Bedside Glucose 128 161 135 White Blood Count 17.6 #H Red Blood Count 3.30 L Hemoglobin 9.9 L Hematocrit 29.9 L Mean Corpuscular Volume 90.6 Mean Corpuscular Hemoglobin 30.0 Mean Corpuscular Hemoglobin Concent 33.1 Red Cell Distribution Width 13.5 Platelet Count 126 #L Mean Platelet Volume 9.4 Neutrophils % 86.4 H Lymphocytes % 5.1 L Monocytes % 7.2 Eosinophils % 0.1 Basophils % 0.2 Nucleated Red Blood Cells % 0.0 Neutrophils # 15.2 H Lymphocytes # 0.9 Monocytes # 1.3 H Eosinophils # 0.0 Basophils # 0.0 Nucleated Red Blood Cells # 0.0 Sodium Level 128 L Potassium Level 4.0 Chloride Level 93 L Carbon Dioxide Level 32 H Anion Gap 7 L Blood Urea Nitrogen 9 Creatinine 0.37 L Glucose Level 139 Calcium Level 8.5 Test 04/23/17 11:45 Bedside Glucose 124 Medications Current Medications Diagnostic Test (Pha) (Accu-Chek) 1 ea 02 XX Last administered on 04/15/17 02: 00; Admin Dose 1 EA; Start 04/14/17 at 02:00 Miscellaneous Information 1 ea NOTE XX ; Start 04/13/17 at 21:30 Glucose (Glutose) 15 gm Q15M PRN PO DECREASED GLUCOSE; Start 04/13/17 at 21:30 Glucose (Glutose) 22.5 gm Q15M PRN PO DECREASED GLUCOSE; Start 04/13/17 at 21: 30 Dextrose (D50w Syringe) 25 ml Q15M PRN IV DECREASED GLUCOSE; Start 04/13/17 at 21:30 Dextrose (D50w Syringe) 50 ml Q15M PRN IV DECREASED GLUCOSE; Start 04/13/17 at 21:30 Glucagon (Glucagen) 1 mg Q15M PRN IM DECREASED GLUCOSE; Start 04/13/17 at 21:30 Glucose (Glutose) 15 gm Q15M PRN BUCCAL DECREASED GLUCOSE; Start 04/13/17 at 21 :30 Ondansetron HCl (Zofran Inj) 4 mg Q6 PRN IV NAUSEA AND/OR VOMITING Last administered on 04/23/17 04:05; Admin Dose 4 MG; Start 04/13/17 at 21:30 Guaifenesin/ Dextromethorphan (Robitussin Dm Liquid Cup) 5 ml Q4H PRN PO COUGH Last administered on 04/19/17 05:09; Admin Dose 5 ML; Start 04/15/17 at 16:30 Pantoprazole (Protonix Tab) 40 mg DAILY@06 PO Last administered on 04/21/17 05 :23; Admin Dose 40 MG; Start 04/17/17 at 06:00 Acetaminophen (Tylenol Tab) 500 mg Q6H PRN PO PAIN AND OR ELEVATED TEMP Last administered on 04/22/17 17:10; Admin Dose 500 MG; Start 04/17/17 at 03:00 Magnesium Hydroxide 30 ml 30 ml DAILY PRN PO CONSTIPATION; Start 04/17/17 at 11 :30 Ampicillin Sodium/ Sulbactam Sodium (Unasyn 1.5gm/NS (Pmx)) 50 ml @ 100 mls/hr Q6 IVPB Last administered on 04/23/17 11:47; Admin Dose 100 MLS/HR; Start at 18:00 Furosemide (Lasix) 20 mg DAILY@06 IV Last administered on 04/23/17 05:44; Admin Dose 20 MG; Start 04/18/17 at 18:30 Mineral Oil (Mineral Oil) 30 ml TID PO Last administered on 04/22/17 12:48; Admin Dose 30 ML; Start 04/20/17 at 18:30 Fentanyl (Duragesic 12 Mcg/Hr Patch) 1 patch Q72H TRANSDERM Last administered on 04/22/17 05:43; Admin Dose 1 PATCH; Start 04/22/17 at 05:30 Morphine Sulfate (morphine) 1 mg Q4H PRN IV SEVERE PAIN LEVEL 7-10 Last administered on 04/23/17 04:06; Admin Dose 1 MG; Start 04/22/17 at 17:30 Metoclopramide HCl 10 mg 10 mg Q6H PRN IV NAUSEA Last administered on 21:09; Admin Dose 10 MG; Start 04/22/17 at 21:00 Dextrose/Sodium Chloride (D5-1/2ns) 1,000 ml @ 20 mls/hr Q24H IV Last administered on 04/22/17 23:47; Admin Dose 20 MLS/HR; Start 04/23/17 at 00:00 Assessment/Plan Chief Complaint/Hosp Course Assessment 1. Loculated pleural effusion likely secondary to hepatic process 2. Hepatic hydrothorax status post chest tube however loculated pleural effusion will likely require decortication. 3. Liver abscesses with gamma hemolytic strep Plan 1. Continue antibiotics per ID 2. Thoracic surgery tentatively scheduled for next week. 3. A percutaneous drainage of abdominal abscess today. Problems: DENISE BRAVO MD, [facility] Apr 23, 2017 12:36
--- NOTE | 2017-04-23 13:39 | CONS ---
Date/Time of Note Date/Time of Note DATE: 04/23/17 TIME: 13:36 Assessment/Plan Assessment/Plan Chief Complaint/Hosp Course IMP: 1.Hypotension-now improved 2.abnl ecg-with ST elevations anterior-negative trop x 3/NL EF by echo. NO CP 3.Liver abscess s/p CT guided drainage 4.H/O lung ca s/p resection with lung nodules by CT? 5.Lung nodules 6. Hyponatremia Recc: -Now on med-surg -Continue abx's -F/U cx data -Follow BP closely -pain control -Hold lasix and follow volume status/NA closely Problems: Consultation Date/Type/Reason Admit Date/Time Apr 13, 2017 at 19:51 Initial Consult Date 04/13/17 Type of Consultation: cardiology Reason for Consultation chest pain Referring Provider: DARREL BURT MD Exam/Review of Systems Vital Signs Vitals Vital Signs Date Time Temp Pulse Resp B/P Pulse Ox O2 Delivery O2 Flow Rate FiO2 04/23/17 08:24 98.5 95 17 110/57 94 04/23/17 08:00 Nasal Cannula 5.0 Intake and Output 04/22/17 04/22/17 04/23/17 15:00 23:00 07:00 Intake Total 50 ml 1010 ml 350 ml Output Total 45 ml 32 ml Balance 50 ml 965 ml 318 ml Exam Review of Systems: CONSTITUTIONAL: No fevers, chills. PULMONARY: No sob CARDIOVASCULAR: No chest pain/palpitations GASTROINTESTINAL: No nausea/vomiting. GENITOURINARY: No hematuria/dysuria. MUSCULOSKELETAL: No myagias/arthalgias. PSYCHIATRIC: The patient denies depression. NEUROLOGIC: lethargic/generalized weakness Constitutional: other (sleeping) Psych: no complaints Head: normocephalic ENMT: mucosa pink and moist Neck: jvd (8 cm water), supple Respiratory: diminished breath sounds (at bases/B) Gastrointestinal: soft, tender (mild to palpation) Musculoskeletal: muscle weakness (generalized) Extremities: edema (none) 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: lethargic Results Result Diagram: 04/23/17 0556 04/23/17 0556 Results 24 hrs Laboratory Tests Test 04/22/17 17:15 04/22/17 21:13 04/23/17 05:56 04/23/17 08:10 Bedside Glucose 128 161 135 White Blood Count 17.6 #H Red Blood Count 3.30 L Hemoglobin 9.9 L Hematocrit 29.9 L Mean Corpuscular Volume 90.6 Mean Corpuscular Hemoglobin 30.0 Mean Corpuscular Hemoglobin Concent 33.1 Red Cell Distribution Width 13.5 Platelet Count 126 #L Mean Platelet Volume 9.4 Neutrophils % 86.4 H Lymphocytes % 5.1 L Monocytes % 7.2 Eosinophils % 0.1 Basophils % 0.2 Nucleated Red Blood Cells % 0.0 Neutrophils # 15.2 H Lymphocytes # 0.9 Monocytes # 1.3 H Eosinophils # 0.0 Basophils # 0.0 Nucleated Red Blood Cells # 0.0 Sodium Level 128 L Potassium Level 4.0 Chloride Level 93 L Carbon Dioxide Level 32 H Anion Gap 7 L Blood Urea Nitrogen 9 Creatinine 0.37 L Glucose Level 139 Calcium Level 8.5 Test 04/23/17 11:45 Bedside Glucose 124 Medications Medications Current Medications Diagnostic Test (Pha) (Accu-Chek) 1 ea 02 XX Last administered on 04/15/17 02: 00; Admin Dose 1 EA; Start 04/14/17 at 02:00 Miscellaneous Information 1 ea NOTE XX ; Start 04/13/17 at 21:30 Glucose (Glutose) 15 gm Q15M PRN PO DECREASED GLUCOSE; Start 04/13/17 at 21:30 Glucose (Glutose) 22.5 gm Q15M PRN PO DECREASED GLUCOSE; Start 04/13/17 at 21: 30 Dextrose (D50w Syringe) 25 ml Q15M PRN IV DECREASED GLUCOSE; Start 04/13/17 at 21:30 Dextrose (D50w Syringe) 50 ml Q15M PRN IV DECREASED GLUCOSE; Start 04/13/17 at 21:30 Glucagon (Glucagen) 1 mg Q15M PRN IM DECREASED GLUCOSE; Start 04/13/17 at 21:30 Glucose (Glutose) 15 gm Q15M PRN BUCCAL DECREASED GLUCOSE; Start 04/13/17 at 21 :30 Ondansetron HCl (Zofran Inj) 4 mg Q6 PRN IV NAUSEA AND/OR VOMITING Last administered on 04/23/17 04:05; Admin Dose 4 MG; Start 04/13/17 at 21:30 Guaifenesin/ Dextromethorphan (Robitussin Dm Liquid Cup) 5 ml Q4H PRN PO COUGH Last administered on 04/19/17 05:09; Admin Dose 5 ML; Start 04/15/17 at 16:30 Pantoprazole (Protonix Tab) 40 mg DAILY@06 PO Last administered on 04/21/17 05 :23; Admin Dose 40 MG; Start 04/17/17 at 06:00 Acetaminophen (Tylenol Tab) 500 mg Q6H PRN PO PAIN AND OR ELEVATED TEMP Last administered on 04/22/17 17:10; Admin Dose 500 MG; Start 04/17/17 at 03:00 Magnesium Hydroxide 30 ml 30 ml DAILY PRN PO CONSTIPATION; Start 04/17/17 at 11 :30 Ampicillin Sodium/ Sulbactam Sodium (Unasyn 1.5gm/NS (Pmx)) 50 ml @ 100 mls/hr Q6 IVPB Last administered on 04/23/17 11:47; Admin Dose 100 MLS/HR; Start at 18:00 Furosemide (Lasix) 20 mg DAILY@06 IV Last administered on 04/23/17 05:44; Admin Dose 20 MG; Start 04/18/17 at 18:30 Mineral Oil (Mineral Oil) 30 ml TID PO Last administered on 04/22/17 12:48; Admin Dose 30 ML; Start 04/20/17 at 18:30 Fentanyl (Duragesic 12 Mcg/Hr Patch) 1 patch Q72H TRANSDERM Last administered on 04/22/17 05:43; Admin Dose 1 PATCH; Start 04/22/17 at 05:30 Morphine Sulfate (morphine) 1 mg Q4H PRN IV SEVERE PAIN LEVEL 7-10 Last administered on 04/23/17 04:06; Admin Dose 1 MG; Start 04/22/17 at 17:30 Metoclopramide HCl 10 mg 10 mg Q6H PRN IV NAUSEA Last administered on 21:09; Admin Dose 10 MG; Start 04/22/17 at 21:00 Dextrose/Sodium Chloride (D5-1/2ns) 1,000 ml @ 20 mls/hr Q24H IV Last administered on 04/22/17 23:47; Admin Dose 20 MLS/HR; Start 04/23/17 at 00:00 LILIANA BARKSDALE Apr 23, 2017 13:39
[2017-04-23] MEDS ORDERED: LIDOCAINE 1% (MDV) 20 ML INJ ONE (14:33)
--- NOTE | 2017-04-23 15:47 | RADRPT ---
PROCEDURE: 1. Limited abdominal CT. 2. CT-guided drainage of liver abscess CLINICAL INDICATION: Liver abscess TECHNIQUE: Operative note: After informed written consent, the patient was placed supine on the CT scanner. Li mited CT was obtained of the upper abdomen using 5 mm axial images. The mid abdominal wall was prep ped and draped in standard sterile fashion. 1% lidocaine was used for local anesthesia. Under CT g uidance, an 18-gauge trocar needle was advanced into the collection. Through this, a 035 J-wire was advanced. Repeat limited CT was performed to confirm a positioning. Serial tract dilatation was p erformed using 7 and 9 Polish dilators. Subsequently , a 10 Polish multipurpose drain was advanced over the J-wire into the cavity. Repeat CT was performed to confirm positioning of the catheter. C atheter was secured to the skin with a 2-0 silk suture. The catheter was attached to a aspiration b ag. The patient of the procedure well. There were no complications. The calculated dose length product (DLP) = is not available mGy-cm. Exam CTDlvol = none available mGy. One or more of the following dose reduction techniques were used: Automated exposure control, adjustment of the mA and or KV according to patient size, or use of iterative reconstruction techniq ue. COMPARISON: None FINDINGS: 1. Initial limited CT demonstrates a 8 x 87 cm multilobulated abscess extending into the dome. Inci dental note is made of moderate size right pleural effusion. A right anterior chest tube is in place . 2. Successful CT guided placement of 10-Polish drainage catheter into liver abscess cavity. A tota l of 15 cc of brown pus was aspirated. 3. CT post aspiration demonstrates the drain to be well seated within the inferior portion of the a bscess cavity. IMPRESSION: Successful CT guided drainage of liver abscess as described. RPTAT: HH .Duran Dawn MD, Date Time Electronically viewed and signed by .Duran Dawn MD, MD on 04/23/2017 15:47 .W/
--- NOTE | 2017-04-23 16:27 | CONS ---
Date/Time of Note Date/Time of Note DATE: 04/23/17 TIME: 16:26 Assessment/Plan Assessment/Plan Chief Complaint/Hosp Course Problems: Additional Assessment/Plan 1. Acute hyponatremia 2/2 Hypovolemic hyponatremia 2. sepsis due to liver abscess 3. Hepatic abscess oN CT scan s/p CT guided drainage on 04/15/17 4. Acute transaminitis 5. h/o Colon CA s/p previous Surgery 6. Hypokalemia Plan : Wound cx grew hemolytic steptococci, Continue IV abx Unasyn and Linezolid, monitor electrolytes and renal function -Na dropped to 128- on D51/2NS at 20cc/ hr Cr stable, will follow up Consultation Date/Type/Reason Admit Date/Time Apr 13, 2017 at 19:51 Initial Consult Date 04/13/17 Type of Consultation: NEPHROLOGY Referring Provider: DARREL BURT MD Exam/Review of Systems Vital Signs Vitals Vital Signs Date Time Temp Pulse Resp B/P Pulse Ox O2 Delivery O2 Flow Rate FiO2 04/23/17 15:50 98.0 95 16 110/68 96 Nasal Cannula 3.0 Intake and Output 04/22/17 04/22/17 04/23/17 15:00 23:00 07:00 Intake Total 50 ml 1010 ml 350 ml Output Total 45 ml 32 ml Balance 50 ml 965 ml 318 ml Results Result Diagram: 04/23/17 0556 04/23/17 0556 Results 24 hrs Laboratory Tests Test 04/22/17 17:15 04/22/17 21:13 04/23/17 05:56 04/23/17 08:10 Bedside Glucose 128 161 135 White Blood Count 17.6 #H Red Blood Count 3.30 L Hemoglobin 9.9 L Hematocrit 29.9 L Mean Corpuscular Volume 90.6 Mean Corpuscular Hemoglobin 30.0 Mean Corpuscular Hemoglobin Concent 33.1 Red Cell Distribution Width 13.5 Platelet Count 126 #L Mean Platelet Volume 9.4 Neutrophils % 86.4 H Lymphocytes % 5.1 L Monocytes % 7.2 Eosinophils % 0.1 Basophils % 0.2 Nucleated Red Blood Cells % 0.0 Neutrophils # 15.2 H Lymphocytes # 0.9 Monocytes # 1.3 H Eosinophils # 0.0 Basophils # 0.0 Nucleated Red Blood Cells # 0.0 Sodium Level 128 L Potassium Level 4.0 Chloride Level 93 L Carbon Dioxide Level 32 H Anion Gap 7 L Blood Urea Nitrogen 9 Creatinine 0.37 L Glucose Level 139 Calcium Level 8.5 Test 04/23/17 11:45 Bedside Glucose 124 Medications Medications Current Medications Diagnostic Test (Pha) (Accu-Chek) 1 ea 02 XX Last administered on 04/15/17 02: 00; Admin Dose 1 EA; Start 04/14/17 at 02:00 Miscellaneous Information 1 ea NOTE XX ; Start 04/13/17 at 21:30 Glucose (Glutose) 15 gm Q15M PRN PO DECREASED GLUCOSE; Start 04/13/17 at 21:30 Glucose (Glutose) 22.5 gm Q15M PRN PO DECREASED GLUCOSE; Start 04/13/17 at 21: 30 Dextrose (D50w Syringe) 25 ml Q15M PRN IV DECREASED GLUCOSE; Start 04/13/17 at 21:30 Dextrose (D50w Syringe) 50 ml Q15M PRN IV DECREASED GLUCOSE; Start 04/13/17 at 21:30 Glucagon (Glucagen) 1 mg Q15M PRN IM DECREASED GLUCOSE; Start 04/13/17 at 21:30 Glucose (Glutose) 15 gm Q15M PRN BUCCAL DECREASED GLUCOSE; Start 04/13/17 at 21 :30 Ondansetron HCl (Zofran Inj) 4 mg Q6 PRN IV NAUSEA AND/OR VOMITING Last administered on 04/23/17 04:05; Admin Dose 4 MG; Start 04/13/17 at 21:30 Guaifenesin/ Dextromethorphan (Robitussin Dm Liquid Cup) 5 ml Q4H PRN PO COUGH Last administered on 04/19/17 05:09; Admin Dose 5 ML; Start 04/15/17 at 16:30 Pantoprazole (Protonix Tab) 40 mg DAILY@06 PO Last administered on 04/21/17 05 :23; Admin Dose 40 MG; Start 04/17/17 at 06:00 Acetaminophen (Tylenol Tab) 500 mg Q6H PRN PO PAIN AND OR ELEVATED TEMP Last administered on 04/22/17 17:10; Admin Dose 500 MG; Start 04/17/17 at 03:00 Magnesium Hydroxide 30 ml 30 ml DAILY PRN PO CONSTIPATION; Start 04/17/17 at 11 :30 Ampicillin Sodium/ Sulbactam Sodium (Unasyn 1.5gm/NS (Pmx)) 50 ml @ 100 mls/hr Q6 IVPB Last administered on 04/23/17 11:47; Admin Dose 100 MLS/HR; Start at 18:00 Furosemide (Lasix) 20 mg DAILY@06 IV Last administered on 04/23/17 05:44; Admin Dose 20 MG; Start 04/18/17 at 18:30; Status Future Hold Mineral Oil (Mineral Oil) 30 ml TID PO Last administered on 04/22/17 12:48; Admin Dose 30 ML; Start 04/20/17 at 18:30 Fentanyl (Duragesic 12 Mcg/Hr Patch) 1 patch Q72H TRANSDERM Last administered on 04/22/17 05:43; Admin Dose 1 PATCH; Start 04/22/17 at 05:30 Morphine Sulfate (morphine) 1 mg Q4H PRN IV SEVERE PAIN LEVEL 7-10 Last administered on 04/23/17 04:06; Admin Dose 1 MG; Start 04/22/17 at 17:30 Metoclopramide HCl 10 mg 10 mg Q6H PRN IV NAUSEA Last administered on 21:09; Admin Dose 10 MG; Start 04/22/17 at 21:00 Dextrose/Sodium Chloride (D5-1/2ns) 1,000 ml @ 20 mls/hr Q24H IV Last administered on 04/22/17 23:47; Admin Dose 20 MLS/HR; Start 04/23/17 at 00:00 NGOC GARZA MD Apr 23, 2017 16:27
--- NOTE | 2017-04-23 17:00 | PN ---
DATE: 04/23/2017 SUBJECTIVE DATA: Does not have any specific complaint. Apparently last night cardiothoracic surgeon, Dr. Jules placed a chest tube on the right side to drain the pleural effusion. Also, apparently the previous pigtail in the liver abscess cavity has been removed, but it is not clear when, what time, and who has removed that. Apparently it was not functioning anymore. OBJECTIVE DATA: I saw the patient on the floor. She was awake, alert, oriented x3. I am dictating this post insertion of new pigtail in the liver abscess by Dr. Velasco. Today vital signs, temperature 98.5, 95 heart rate, respirations 17, blood pressure 110/57, saturation 94 percent on 5 liters nasal cannula. LABORATORY AND DIAGNOSTIC DATA: WBC today has increased to 17,600 with 86 percent segmented. Hemoglobin 9.9, hematocrit 29.9. Platelet is 126. Sodium is 128 today, which is low, potassium 4, BUN 9, creatinine 0.37. The chest tube has drained since the insertion last night until now, which is around noon, about 45 mL. Appears to be serosanguineous fluid. Also, I saw the patient in the radiology department at 3:[address] Scott had inserted a pigtail tube in the remaining of the liver abscesses and he aspirated purulent material which the nurse is sending for culture and sensitivity. It was connected to a Accardion drain. The patient went to recovery room from there. ASSESSMENT: A 66-year-old patient who presented to the emergency room because of 2 weeks of weakness and occasional fever and abdominal pain, on CT scan was found to have multiloculated liver abscess. CT-guided drainage was placed by Dr. Decker on 04/17 and it drained and after a few days the drainage became serous in appearance, was not purulent anymore, but more loculation was obvious on the repeat CT scan. So he requested from radiology to kindly insert whatever is needed catheters to drain the multiloculated abscesses. Meanwhile, the patient had developed right-sided pleural effusion which was opacifying the chest almost completely. Once the radiology did aspiration and drained 210 mL on which the protein was 3.2, which by criteria is exudate. Then, Dr. Jules inserted chest tube last night which is not draining so far that much. Today, Dr. Velasco placed another pigtail in the liver abscess cavities. PLAN: Continue giving antibiotic. Observe the patient. Follow up of chest tube and pigtail drain. She may require more pigtails, even in the chest in future if the chest tube is not draining. I will follow along with other colleagues. Dictated By: Osmani Ceballos MD /rachel/lisa /Document#: [id number] MTDD
--- NOTE | 2017-04-23 18:05 | CONS ---
Date/Time of Note Date/Time of Note DATE: 04/23/17 TIME: 18:04 Assessment/Plan Assessment/Plan Chief Complaint/Hosp Course - Severe sepsis 2/2 to liver abscess - improving - Liver abscess s/p CT guided drainage catheter placement 04/15/2017; cx +gamma hemolytic strep - Bilateral pleural effusions, R>L, - s/p R thoracentesis with ~ 0.21 L of serous fluid aspirated on 04/20/2017 - 04/22 - Thoracentesis cancelled by dr Decker as not enough fluid , recommended chest tube placement. Scheduled today for Chest Tube placement by Dr Jackosn - Hepatic hydrothorax per Pulmonary - Hypotension - resolved with IVF - Normocytic anemia requiring blood transfusion - Coagulopathy - improved - Transaminitis - slowly improving - Hyponatremia on admission - improved - CoNS in urine culture with trivial pyuria, likely contaminant; pt asymptomatic - Hx of rectal CA s/p Low anterior resection 08/29/2016 Recommendations: - f/u repeat cxs - continue Unasyn (04/18/2017-) - repeat imaging prior to antibiotic cessation to ensure resolution - probiotics Problems: Consultation Date/Type/Reason Admit Date/Time Apr 13, 2017 at 19:51 Initial Consult Date 04/13/17 Type of Consultation: id Referring Provider: DARREL BURT MD Exam/Review of Systems Vital Signs Vitals Vital Signs Date Time Temp Pulse Resp B/P Pulse Ox O2 Delivery O2 Flow Rate FiO2 04/23/17 16:45 18 108/63 95 Nasal Cannula 3.0 04/23/17 16:17 92 04/23/17 15:50 98.0 Intake and Output 04/22/17 04/22/17 04/23/17 15:00 23:00 07:00 Intake Total 50 ml 1010 ml 350 ml Output Total 45 ml 32 ml Balance 50 ml 965 ml 318 ml Exam s/p CT guided aspiration Constitutional: alert, oriented, well developed Psych: nl mood/affect, no complaints Head: atraumatic, normocephalic Eyes: EOMI, PERRL, nl conjunctiva, nl lids, nl sclera Respiratory: clear to auscultation, normal air movement Cardiovascular: nl pulses, regular rate and rhythm Gastrointestinal: soft Results Result Diagram: 04/23/17 0556 04/23/17 0556 Results 24 hrs Laboratory Tests Test 04/22/17 21:13 04/23/17 05:56 04/23/17 08:10 04/23/17 11:45 Bedside Glucose 161 135 124 White Blood Count 17.6 #H Red Blood Count 3.30 L Hemoglobin 9.9 L Hematocrit 29.9 L Mean Corpuscular Volume 90.6 Mean Corpuscular Hemoglobin 30.0 Mean Corpuscular Hemoglobin Concent 33.1 Red Cell Distribution Width 13.5 Platelet Count 126 #L Mean Platelet Volume 9.4 Neutrophils % 86.4 H Lymphocytes % 5.1 L Monocytes % 7.2 Eosinophils % 0.1 Basophils % 0.2 Nucleated Red Blood Cells % 0.0 Neutrophils # 15.2 H Lymphocytes # 0.9 Monocytes # 1.3 H Eosinophils # 0.0 Basophils # 0.0 Nucleated Red Blood Cells # 0.0 Sodium Level 128 L Potassium Level 4.0 Chloride Level 93 L Carbon Dioxide Level 32 H Anion Gap 7 L Blood Urea Nitrogen 9 Creatinine 0.37 L Glucose Level 139 Calcium Level 8.5 Test 04/23/17 17:08 Bedside Glucose 114 Medications Medications Current Medications Diagnostic Test (Pha) (Accu-Chek) 1 ea 02 XX Last administered on 04/15/17 02: 00; Admin Dose 1 EA; Start 04/14/17 at 02:00 Miscellaneous Information 1 ea NOTE XX ; Start 04/13/17 at 21:30 Glucose (Glutose) 15 gm Q15M PRN PO DECREASED GLUCOSE; Start 04/13/17 at 21:30 Glucose (Glutose) 22.5 gm Q15M PRN PO DECREASED GLUCOSE; Start 04/13/17 at 21: 30 Dextrose (D50w Syringe) 25 ml Q15M PRN IV DECREASED GLUCOSE; Start 04/13/17 at 21:30 Dextrose (D50w Syringe) 50 ml Q15M PRN IV DECREASED GLUCOSE; Start 04/13/17 at 21:30 Glucagon (Glucagen) 1 mg Q15M PRN IM DECREASED GLUCOSE; Start 04/13/17 at 21:30 Glucose (Glutose) 15 gm Q15M PRN BUCCAL DECREASED GLUCOSE; Start 04/13/17 at 21 :30 Ondansetron HCl (Zofran Inj) 4 mg Q6 PRN IV NAUSEA AND/OR VOMITING Last administered on 04/23/17 04:05; Admin Dose 4 MG; Start 04/13/17 at 21:30 Guaifenesin/ Dextromethorphan (Robitussin Dm Liquid Cup) 5 ml Q4H PRN PO COUGH Last administered on 04/19/17 05:09; Admin Dose 5 ML; Start 04/15/17 at 16:30 Pantoprazole (Protonix Tab) 40 mg DAILY@06 PO Last administered on 04/21/17 05 :23; Admin Dose 40 MG; Start 04/17/17 at 06:00 Acetaminophen (Tylenol Tab) 500 mg Q6H PRN PO PAIN AND OR ELEVATED TEMP Last administered on 04/22/17 17:10; Admin Dose 500 MG; Start 04/17/17 at 03:00 Magnesium Hydroxide 30 ml 30 ml DAILY PRN PO CONSTIPATION; Start 04/17/17 at 11 :30 Ampicillin Sodium/ Sulbactam Sodium (Unasyn 1.5gm/NS (Pmx)) 50 ml @ 100 mls/hr Q6 IVPB Last administered on 04/23/17 11:47; Admin Dose 100 MLS/HR; Start at 18:00 Furosemide (Lasix) 20 mg DAILY@06 IV Last administered on 04/23/17 05:44; Admin Dose 20 MG; Start 04/18/17 at 18:30; Status Future Hold Mineral Oil (Mineral Oil) 30 ml TID PO Last administered on 04/22/17 12:48; Admin Dose 30 ML; Start 04/20/17 at 18:30 Fentanyl (Duragesic 12 Mcg/Hr Patch) 1 patch Q72H TRANSDERM Last administered on 04/22/17 05:43; Admin Dose 1 PATCH; Start 04/22/17 at 05:30 Morphine Sulfate (morphine) 1 mg Q4H PRN IV SEVERE PAIN LEVEL 7-10 Last administered on 04/23/17 04:06; Admin Dose 1 MG; Start 04/22/17 at 17:30 Metoclopramide HCl 10 mg 10 mg Q6H PRN IV NAUSEA Last administered on 21:09; Admin Dose 10 MG; Start 04/22/17 at 21:00 Dextrose/Sodium Chloride (D5-1/2ns) 1,000 ml @ 20 mls/hr Q24H IV Last administered on 04/22/17 23:47; Admin Dose 20 MLS/HR; Start 04/23/17 at 00:00 CHIOMA ROGERS MD Apr 23, 2017 18:05
--- NOTE | 2017-04-23 19:31 | PN ---
Date/Time of Note Date/Time of Note DATE: 04/23/17 TIME: 19:30 Assessment/Plan Lines/Catheters IV Catheter Type (from Nrsg): Peripheral IV Khan in Place (from Nrsg): No Assessment/Plan Chief Complaint/Hosp Course 66-year-old female with a history of colon/rectal ca presenting with sepsis due to liver abscesses, whose course has been complicated by mild hypoxemic resp insufficiency with enlarging R.> L effusions. SP CT placement will need VATS decortication if she does not respond to CT Sxn Problems: Subjective 24 Hr Interval Summary Constitutional: improved Pain Control: mild Exam/Review of Systems Vital Signs Vitals Vital Signs Date Time Temp Pulse Resp B/P Pulse Ox O2 Delivery O2 Flow Rate FiO2 04/23/17 16:45 18 108/63 95 Nasal Cannula 3.0 04/23/17 16:17 92 04/23/17 15:50 98.0 Intake and Output 04/22/17 04/22/17 04/23/17 15:00 23:00 07:00 Intake Total 50 ml 1010 ml 350 ml Output Total 45 ml 32 ml Balance 50 ml 965 ml 318 ml Exam ENMT: mucosa pink and moist, nl external ears & nose, nl lips & teeth, nl nasal mucosa & septum Neck: non-tender, supple Respiratory: clear to auscultation, normal air movement Gastrointestinal: nl liver, spleen, non-tender, soft Results Result Diagram: 04/23/17 0556 04/23/17 0556 ADRIAN NO MD Apr 23, 2017 19:31
[2017-04-23] MEDS ORDERED: ACETAMINOPHEN 650 MG SUPP PR PRN (20:30)
--- NOTE | 2017-04-23 20:42 | PN ---
Date/Time of Note Date/Time of Note DATE: 04/23/17 TIME: 20:25 Assessment/Plan VTE Prophylaxis VTE Prophylaxis Intervention: other Lines/Catheters IV Catheter Type (from Nrs): Peripheral IV Urinary Cath still in place: No Assessment/Plan Assessment/Plan - Acute respiratory distress- o2 sat 88% on 5L nc - transfer to ICU - stst ABGs on 5L - STAT Cxr - sputum c/s - Tylenol - Zofran - Tachycardia - per Dr Hendrickson - -Bilateral pleural effusions right more than left, status post right thoracentesis 04/20. - SP right chest tube insertion by vascular surgery, Dr. Jackson -Acute respiratory failure secondary to #1, Dr. Damico is following in pulmonology consultation continue oxygen oxygen supplementation - Severe sepsis / to liver abscess. Continue antibiotics per ID. Dr. Diana is following infection disease consultation - Liver abscess unchanged per recent CT, s/p CT guided drainage 04/15/2017, pending percutaneous drainage insertion for remaining of the liver abscess. - Normocytic anemia requiring blood transfusion - Hx of rectal CA s/p Low anterior resection 08/29/2016 Further recommendations based on clinical course. Plan of care discussed with Dr. Dior Subjective 24 Hr Interval Summary Free Text/Dictation Acute respiratory distress- o2 sat 88% on 5L nc- willl transfer to ICU, stat ABGs on 5L, STAT Cxr, sputum c/s, Tylenol, Zofran - dw staff Respiratory: shortness of breath Cardiovascular: no complaints Gastrointestinal: no complaints Genitourinary: no complaints Musculoskeletal: no complaints Skin: no complaints Exam/Review of Systems Vital Signs Vitals Vital Signs Date Time Temp Pulse Resp B/P Pulse Ox O2 Delivery O2 Flow Rate FiO2 04/23/17 20:14 100.9 115 20 128/71 91 04/23/17 19:41 5.0 04/23/17 16:45 Nasal Cannula Intake and Output 04/22/17 04/22/17 04/23/17 14:59 22:59 06:59 Intake Total 50 ml 1010 ml 350 ml Output Total 45 ml 32 ml Balance 50 ml 965 ml 318 ml Exam Constitutional: alert, frail, other (follows simple commands) Respiratory: diminished breath sounds, other (right chest tube noted) Cardiovascular: nl pulses Gastrointestinal: other (rt heaptic drain noted) Musculoskeletal: nl extremities to inspection Extremities: normal pulses 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: 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, nl speech Results Result Diagram: 04/23/17 0556 04/23/17 0556 Results 24 hrs Laboratory Tests Test 04/22/17 21:13 04/23/17 05:56 04/23/17 08:10 04/23/17 11:45 Bedside Glucose 161 135 124 White Blood Count 17.6 #H Red Blood Count 3.30 L Hemoglobin 9.9 L Hematocrit 29.9 L Mean Corpuscular Volume 90.6 Mean Corpuscular Hemoglobin 30.0 Mean Corpuscular Hemoglobin Concent 33.1 Red Cell Distribution Width 13.5 Platelet Count 126 #L Mean Platelet Volume 9.4 Neutrophils % 86.4 H Lymphocytes % 5.1 L Monocytes % 7.2 Eosinophils % 0.1 Basophils % 0.2 Nucleated Red Blood Cells % 0.0 Neutrophils # 15.2 H Lymphocytes # 0.9 Monocytes # 1.3 H Eosinophils # 0.0 Basophils # 0.0 Nucleated Red Blood Cells # 0.0 Sodium Level 128 L Potassium Level 4.0 Chloride Level 93 L Carbon Dioxide Level 32 H Anion Gap 7 L Blood Urea Nitrogen 9 Creatinine 0.37 L Glucose Level 139 Calcium Level 8.5 Test 04/23/17 17:08 Bedside Glucose 114 Medications Medications Current Medications Diagnostic Test (Pha) (Accu-Chek) 1 ea 02 XX Last administered on 04/15/17t 02: 00; Admin Dose 1 EA; Start 04/14/17 at 02:00 Miscellaneous Information 1 ea NOTE XX ; Start 04/13/17 at 21:30 Glucose (Glutose) 15 gm Q15M PRN PO DECREASED GLUCOSE; Start 04/13/17 at 21:30 Glucose (Glutose) 22.5 gm Q15M PRN PO DECREASED GLUCOSE; Start 04/13/17 at 21: 30 Dextrose (D50w Syringe) 25 ml Q15M PRN IV DECREASED GLUCOSE; Start 04/13/17 at 21:30 Dextrose (D50w Syringe) 50 ml Q15M PRN IV DECREASED GLUCOSE; Start 04/13/17 at 21:30 Glucagon (Glucagen) 1 mg Q15M PRN IM DECREASED GLUCOSE; Start 04/13/17 at 21:30 Glucose (Glutose) 15 gm Q15M PRN BUCCAL DECREASED GLUCOSE; Start 04/13/17 at 21 :30 Ondansetron HCl (Zofran Inj) 4 mg Q6 PRN IV NAUSEA AND/OR VOMITING Last administered on 04/23/17 04:05; Admin Dose 4 MG; Start 04/13/17 at 21:30 Guaifenesin/ Dextromethorphan (Robitussin Dm Liquid Cup) 5 ml Q4H PRN PO COUGH Last administered on 04/19/17 05:09; Admin Dose 5 ML; Start 04/15/17 at 16:30 Pantoprazole (Protonix Tab) 40 mg DAILY@06 PO Last administered on 04/21/17 05 :23; Admin Dose 40 MG; Start 04/17/17 at 06:00 Acetaminophen (Tylenol Tab) 500 mg Q6H PRN PO PAIN AND OR ELEVATED TEMP Last administered on 04/22/17 17:10; Admin Dose 500 MG; Start 04/17/17 at 03:00 Magnesium Hydroxide 30 ml 30 ml DAILY PRN PO CONSTIPATION; Start 04/17/17 at 11 :30 Ampicillin Sodium/ Sulbactam Sodium (Unasyn 1.5gm/NS (Pmx)) 50 ml @ 100 mls/hr Q6 IVPB Last administered on 04/23/17 18:44; Admin Dose 100 MLS/HR; Start at 18:00 Furosemide (Lasix) 20 mg DAILY@06 IV Last administered on 04/23/17 05:44; Admin Dose 20 MG; Start 04/18/17 at 18:30; Status Future Hold Mineral Oil (Mineral Oil) 30 ml TID PO Last administered on 04/22/17 12:48; Admin Dose 30 ML; Start 04/20/17 at 18:30 Fentanyl (Duragesic 12 Mcg/Hr Patch) 1 patch Q72H TRANSDERM Last administered on 04/22/17 05:43; Admin Dose 1 PATCH; Start 04/22/17 at 05:30 Morphine Sulfate (morphine) 1 mg Q4H PRN IV SEVERE PAIN LEVEL 7-10 Last administered on 04/23/17 04:06; Admin Dose 1 MG; Start 04/22/17 at 17:30 Metoclopramide HCl 10 mg 10 mg Q6H PRN IV NAUSEA Last administered on 21:09; Admin Dose 10 MG; Start 04/22/17 at 21:00 Dextrose/Sodium Chloride (D5-1/2ns) 1,000 ml @ 20 mls/hr Q24H IV Last administered on 04/22/17t 23:47; Admin Dose 20 MLS/HR; Start 04/23/17 at 00:00 MESHA VELASQUEZ Apr 23, 2017 20:36
[2017-04-23] MEDS: ACETAMINOPHEN 500 MG TAB PO PRN (20:59)
[2017-04-23 21:42] LABS: AADO2 Arterial 235.9 mmHg (7.0-24.0); Arterial Base Excess 5.6 mmol/L (-3.0-3); Arterial COHb 0.3 % (0.0-3.0); Arterial Fraction of Oxyhgb 93.9 % (93.0-99.0); Arterial HCO3 29.8 mmol/L (22.0-26.0); Arterial MetHb 0.4 % (0.0-1.5); Arterial Total Hemglobin 11.3 g/dl (12.0-18.0); MODE MASK - SIMPLE
--- NOTE | 2017-04-23 22:46 | RADRPT ---
PROCEDURE: XR Chest. CLINICAL INDICATION: Shortness of breath. Respiratory distress.. TECHNIQUE: Single frontal chest x-ray. COMPARISON: 04/22/2017 FINDINGS: There is redemonstrated left basilar chest tube. A right upper quadrant percutaneous abscess traced tube is now present. There is a redemonstrated large right pleural effusion with diffuse atelectasis versus infiltrates and a small amount of aerated lung at the right lung apex, not significantly dashawn nged. Heart is enlarged. There is mild left basilar atelectasis versus infiltrate, unchanged. Pulmon jean-pierre vessels are top normal in caliber. There is no pneumothorax. Bones are unchanged. There is gas eous distension of the stomach or bowel in the left upper quadrant appear. IMPRESSION: 1. No significant interval change appearance of the chest including large right pleural effusion an d diffuse atelectasis/infiltrate with minimal aerated lung at the apex. 2. Unchanged left basilar atelectasis versus infiltrate. 3. Unchanged right basilar chest tube. 4. Interval placement of a right upper quadrant percutaneous drain. 5. Gaseous distension of bowel or stomach in the left upper quadrant. RPTAT: [facility]VK .Sebastián Wiley MD, MD Date Time Electronically viewed and signed by .Sebastián Wiley MD, on 04/23/2017 22:46 .K/
[2017-04-23] MEDS: ENOXAPARIN 30 MG/0.3 ML SYG SC SCH (23:05)
[2017-04-23 23:23] LABS: CALCIUM 8.5 mg/dl (8.4-10.2); CREATININE 0.4 mg/dl (0.44-1.00); POTASSIUM 3.9 mmol/L (3.5-5.1)
[2017-04-24] VITALS (26 sets, daily range): BP systolic 95–145; BP diastolic 51–93; PULSE 70–104; RESP 11–39
[2017-04-24] MEDS: DEXTROSE 5%-0.45% NACL 1,000 ML IV SCH
[2017-04-24] MEDS: MINERAL OIL 30ML CUP PO SCH ×2 (00:29→08:26)
[2017-04-24] MEDS: AMPICILLIN/SULB 1.5GM/NS (PMX) 50 ML IVPB SCH ×4 (00:30→17:32)
[2017-04-24] MEDS: ACCU-CHEK XX SCH (02:00)
[2017-04-24] MEDS: morphine 2 MG INJ IV PRN (04:14)
[2017-04-24] MEDS: ONDANSETRON 4 MG INJ IV PRN (04:19)
[2017-04-24] MEDS: PANTOPRAZOLE (EC) 40 MG TAB PO SCH (05:42)
[2017-04-24 06:37] LABS: ABNORMAL IP MESSAGE 1; BASOPHILS % 0.2 % (0.0-2.0); EOSINOPHILS # 0.1 10^3/ul (0.0-0.5); EOSINOPHILS % 0.3 % (0.0-7.0); HEMATOCRIT 28.8 % (37.0-47.0); HEMOGLOBIN 9.3 g/dl (12.0-16.0); LYMPHOCYTES # 1.1 10^3/ul (0.8-2.9); LYMPHOCYTES % 6.2 % (15.0-51.0); MEAN CORPUSCULAR HGB CONC 32.3 g/dl (32.0-37.0); MEAN CORPUSCULAR VOLUME 92.9 fl (82.0-101.0); MEAN PLATELET VOLUME 9.3 fl (7.4-10.4); MONOCYTE # 1.5 10^3/ul (0.3-0.9); MONOCYTES % 8.7 % (0.0-11.0); NEUTROPHIL # 14.5 10^3/ul (1.6-7.5); NEUTROPHILS % 83.8 % (39.0-77.0); PLATELET COUNT 152 10^3/UL (140-415); RED CELL DISTRIBUTION WIDTH 13.6 % (11.5-14.5); WHITE BLOOD COUNT 17.3 10^3/ul (4.8-10.8)
[2017-04-24 06:43] LABS: POSITIVE DIFF @See below
[2017-04-24] MEDS: Insulin NOVOLOG SS MILD Algorithm (SS with meals and bedtime) SC SCH ×4 (07:05→20:39)
[2017-04-24 07:11] LABS: ALBUMIN 2.4 g/dl (3.3-4.9); ALBUMIN/GLOBULIN RATIO 0.75; CALCIUM 8.4 mg/dl (8.4-10.2); CREATININE 0.44 mg/dl (0.44-1.00); POTASSIUM 4.3 mmol/L (3.5-5.1); TOTAL PROTEIN 5.6 g/dl (6.1-8.1)
[2017-04-24 08:25] LABS: BILIRUBIN,INDIRECT 0.3 mg/dl (0-1.1); BILIRUBIN,TOTAL 0.3 mg/dl (0.2-1.3)
[2017-04-24] MEDS: ENOXAPARIN 30 MG/0.3 ML SYG SC SCH (08:25)
--- NOTE | 2017-04-24 11:29 | CONS ---
Date/Time of Note Date/Time of Note DATE: 04/24/17 TIME: 10:33 Assessment/Plan Assessment/Plan Chief Complaint/Hosp Course - Severe sepsis 2/2 to liver abscess - Multiloculated liver abscess s/p CT guided drainage catheter placement 2016 and s/p removal ?date; cx +gamma hemolytic strep - S/p CT guided placement of 10-Russian drainage catheter into liver abscess cavity on 04/23/2017 - Bilateral pleural effusions, R>L, s/p R thoracentesis with ~ 0.21 L of serous fluid aspirated on 04/20/2017; cx NTD - Loculated pleural effusion likely secondary to hepatic process/Hepatic hydrothorax - S/p Right 32-Russian chest tube placement on 04/22/2017 - Hypotension - resolved with IVF - Normocytic anemia requiring blood transfusion - Coagulopathy - improved - Transaminitis - slowly improving - Hyponatremia on admission - CoNS in urine culture with trivial pyuria, likely contaminant; pt asymptomatic - Hx of rectal CA s/p Low anterior resection 08/29/2016 - Severe protein calorie malnutrition Recommendations: - continue Unasyn (04/18/2017-); s/p linezolid and pip/tazo - pending: wound cx from 04/23, repeat blood and urine cx from 04/23 - repeat imaging prior to antibiotic cessation to ensure resolution - probiotics (ordered) - ordered procalcitonin (lactic acid was WNL) Management d/w patient, HAWA Romero, and Dr. Diana Critical care time spent: 60 min Problems: Consultation Date/Type/Reason Admit Date/Time Apr 13, 2017 at 19:51 Initial Consult Date 04/15/17 Type of Consultation: Infectious Disease Referring Provider: DARREL BURT MD 24 HR Interval Summary Free Text/Dictation Transferred to ICU last night due to desaturation and placed on simple face mask at 6L. Tmax 100.9 F and pancultures sent. Pt states SOB has slightly improved. C/o moderate to severe R sided chest tube site pain. No n/v/d, dysuria. Exam/Review of Systems Vital Signs Vitals Vital Signs Date Time Temp Pulse Resp B/P Pulse Ox O2 Delivery O2 Flow Rate FiO2 04/24/17 09:00 100 39 114/71 95 04/24/17 08:00 98.3 04/24/17 07:00 Mask 6.0 Intake and Output 04/23/17 04/23/17 04/24/17 14:59 22:59 06:59 Intake Total 50 ml 280 ml 340 ml Output Total 25 ml Balance 50 ml 255 ml 340 ml Exam Constitutional: alert, frail, oriented, other (Thin), well developed Head: atraumatic, normocephalic Eyes: nl sclera ENMT: other (On face mask) Neck: supple Respiratory: diminished breath sounds, other (R chest tube with leakage) Cardiovascular: nl pulses, regular rate and rhythm Gastrointestinal: bowel sounds, non-tender, other (RUQ external drainage catheter with serosangiunous output), soft Genitourinary - Female: other (Bladder flat; uses bed pain) Musculoskeletal: nl extremities to inspection Extremities: normal pulses, No edema 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: 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, nl speech Skin: nl turgor, No rash or lesions Results Result Diagram: 04/24/17 0610 04/24/17 0610 Results 24 hrs Laboratory Tests Test 04/23/17 11:45 04/23/17 17:08 04/23/17 20:22 04/23/17 21:10 Bedside Glucose 124 114 Blood Gas Specimen Source Blood arterial Arterial Blood Date Drawn 04/23/2017 9:30:25 PM Arterial Blood pH (Temp corrected) 7.471 H Arterial Blood pCO2 (Temp correct) 41.8 Arterial Blood pO2 (Temp corrected) 73.6 L Arterial Blood HCO3 29.8 H Arterial Blood Base Excess 5.6 H Arterial Blood Oxygen Saturation 94.6 L Ruben Test N/A Arterial Blood Gas Puncture Site LB Arterial Blood Carboxyhemoglobin 0.3 Arterial Blood Methemoglobin 0.4 Blood Gas A-a O2 Differential 235.9 H Oxyhemoglobin Percent 93.9 Total Hemoglobin 11.3 L Blood Gas Temperature 37.0 Blood Gas Modality MASK - SIMPLE FiO2 50.0 Blood Gas Notified Whom MA Blood Gas Notified Time 04/23/2017 9:42:38 PM Sodium Level 128 L Potassium Level 3.9 Chloride Level 94 L Carbon Dioxide Level 32 H Anion Gap 6 L Blood Urea Nitrogen 12 Creatinine 0.40 L Glucose Level 148 Lactic Acid Level 1.5 Calcium Level 8.5 Test 04/23/17 22:10 04/24/17 06:10 04/24/17 08:16 Bedside Glucose 150 104 White Blood Count 17.3 H Red Blood Count 3.10 L Hemoglobin 9.3 L Hematocrit 28.8 L Mean Corpuscular Volume 92.9 Mean Corpuscular Hemoglobin 30.0 Mean Corpuscular Hemoglobin Concent 32.3 Red Cell Distribution Width 13.6 Platelet Count 152 # Mean Platelet Volume 9.3 Neutrophils % 83.8 H Lymphocytes % 6.2 L Monocytes % 8.7 Eosinophils % 0.3 Basophils % 0.2 Nucleated Red Blood Cells % 0.0 Neutrophils # 14.5 H Lymphocytes # 1.1 Monocytes # 1.5 H Eosinophils # 0.1 Basophils # 0.0 Nucleated Red Blood Cells # 0.0 Sodium Level 131 L Potassium Level 4.3 Chloride Level 95 L Carbon Dioxide Level 35 H Anion Gap 5 L Blood Urea Nitrogen 9 Creatinine 0.44 Glucose Level 116 Calcium Level 8.4 Total Bilirubin 0.3 Direct Bilirubin 0.00 Indirect Bilirubin 0.3 Aspartate Amino Transf (AST/SGOT) 56 H Alanine Aminotransferase (ALT/SGPT) 48 Alkaline Phosphatase 184 H Total Protein 5.6 L Albumin 2.4 L Globulin 3.20 Albumin/Globulin Ratio 0.75 Medications Medications Current Medications Diagnostic Test (Pha) (Accu-Chek) 1 ea 02 XX Last administered on 04/15/17 02: 00; Admin Dose 1 EA; Start 04/14/17 at 02:00 Miscellaneous Information 1 ea NOTE XX ; Start 04/13/17 at 21:30 Glucose (Glutose) 15 gm Q15M PRN PO DECREASED GLUCOSE; Start 04/13/17 at 21:30 Glucose (Glutose) 22.5 gm Q15M PRN PO DECREASED GLUCOSE; Start 04/13/17 at 21: 30 Dextrose (D50w Syringe) 25 ml Q15M PRN IV DECREASED GLUCOSE; Start 04/13/17 at 21:30 Dextrose (D50w Syringe) 50 ml Q15M PRN IV DECREASED GLUCOSE; Start 04/13/17 at 21:30 Glucagon (Glucagen) 1 mg Q15M PRN IM DECREASED GLUCOSE; Start 04/13/17 at 21:30 Glucose (Glutose) 15 gm Q15M PRN BUCCAL DECREASED GLUCOSE; Start 04/13/17 at 21 :30 Ondansetron HCl (Zofran Inj) 4 mg Q6 PRN IV NAUSEA AND/OR VOMITING Last administered on 04/24/17 04:19; Admin Dose 4 MG; Start 04/13/17 at 21:30 Guaifenesin/ Dextromethorphan (Robitussin Dm Liquid Cup) 5 ml Q4H PRN PO COUGH Last administered on 04/19/17 05:09; Admin Dose 5 ML; Start 04/15/17 at 16:30 Pantoprazole (Protonix Tab) 40 mg DAILY@06 PO Last administered on 04/24/17 05 :42; Admin Dose 40 MG; Start 04/17/17 at 06:00 Acetaminophen (Tylenol Tab) 500 mg Q6H PRN PO PAIN AND OR ELEVATED TEMP Last administered on 04/23/17 20:59; Admin Dose 500 MG; Start 04/17/17 at 03:00 Magnesium Hydroxide 30 ml 30 ml DAILY PRN PO CONSTIPATION; Start 04/17/17 at 11 :30 Ampicillin Sodium/ Sulbactam Sodium (Unasyn 1.5gm/NS (Pmx)) 50 ml @ 100 mls/hr Q6 IVPB Last administered on 04/24/17 05:42; Admin Dose 100 MLS/HR; Start at 18:00 Furosemide (Lasix) 20 mg DAILY@06 IV Last administered on 04/23/17 05:44; Admin Dose 20 MG; Start 04/18/17 at 18:30; Status Future Hold Mineral Oil (Mineral Oil) 30 ml TID PO Last administered on 04/24/17 00:29; Admin Dose 30 ML; Start 04/20/17 at 18:30 Fentanyl (Duragesic 12 Mcg/Hr Patch) 1 patch Q72H TRANSDERM Last administered on 04/22/17 05:43; Admin Dose 1 PATCH; Start 04/22/17 at 05:30 Morphine Sulfate (morphine) 1 mg Q4H PRN IV SEVERE PAIN LEVEL 7-10 Last administered on 04/24/17 04:14; Admin Dose 1 MG; Start 04/22/17 at 17:30 Metoclopramide HCl (Reglan) 10 mg Q6H PRN IV NAUSEA Last administered on 21:09; Admin Dose 10 MG; Start 04/22/17 at 21:00 Enoxaparin Sodium (Lovenox) 30 mg DAILY SC Last administered on 04/24/17 08:25 ; Admin Dose 30 MG; Start 04/23/17 at 20:30 Acetaminophen (Tylenol Supp) 650 mg Q6H PRN AL FEVER GREATER THAN 100.6; Start 04/23/17 at 20:30 Acetaminophen (Tylenol Tab) 650 mg Q6H PRN PO PAIN AND OR ELEVATED TEMP; Start 04/23/17 at 20:30 Procedures Procedures CXR 04/23/2017: 1. No significant interval change appearance of the chest including large right pleural effusion and diffuse atelectasis/infiltrate with minimal aerated lung at the apex. 2. Unchanged left basilar atelectasis versus infiltrate. 3. Unchanged right basilar chest tube. 4. Interval placement of a right upper quadrant percutaneous drain. 5. Gaseous distension of bowel or stomach in the left upper quadrant. CT guided liver abscess drainage 04/23/2017: FINDINGS: 1. Initial limited CT demonstrates a 8 x 87 cm multilobulated abscess extending into the dome. Incidental note is made of moderate size right pleural effusion. A right anterior chest tube is in place. 2. Successful CT guided placement of 10-Russian drainage catheter into liver abscess cavity. A total of 15 cc of brown pus was aspirated. 3. CT post aspiration demonstrates the drain to be well seated within the inferior portion of the abscess cavity. IMPRESSION: Successful CT guided drainage of liver abscess as described. HOWARD THOMAS NP Apr 24, 2017 10:44
[2017-04-24] MEDS: LACTOBACILLUS RHAMNOSUS CAP PO SCH ×2 (12:22→20:38)
--- NOTE | 2017-04-24 14:00 | PN ---
Date/Time of Note Date/Time of Note DATE: 04/24/17 TIME: 13:42 Assessment/Plan VTE Prophylaxis VTE Prophylaxis Intervention: SCD's Lines/Catheters IV [facility]ter [facility]from [facility]): [facility] Urinary Cath still in place: No Assessment/Plan Chief Complaint/Hosp Course Patient patient noted to have increased in respiratory distress with oxygen desaturation yesterday transferred to intensive care unit, currently on supplemental oxygen via face mask, tachypneic. Pain is well controlled. Assessment/Plan - Bilateral pleural effusions right more than left, status post right thoracentesis 04/20. S/p right chest tube insertion on 04/[address] Jackson, vascular surgery. - Acute respiratory failure secondary to #1, Dr. Damico is following in pulmonology consultation continue oxygen oxygen supplementation - Severe sepsis / to liver abscess. Continue antibiotics per ID. Dr. Diana is following infection disease consultation - Liver abscess unchanged per recent CT, s/p CT guided drainage 04/15/2017, s/p CT guided percutaneous drainage of liver abscess 04/23. - Normocytic anemia requiring blood transfusion - Hx of rectal CA s/p Low anterior resection 08/29/2016 Further recommendations based on clinical course. Plan of care discussed with Dr. Dior Problems: Exam/Review of Systems Vital Signs Vitals Vital Signs Date Time Temp Pulse Resp B/P Pulse Ox O2 Delivery O2 Flow Rate FiO2 04/24/17 13:27 6.0 04/24/17 13:00 89 28 104/63 97 04/24/17 12:00 98.5 04/24/17 08:00 Simple Mask Intake and Output 04/23/17 04/23/17 04/24/17 15:00 23:00 07:00 Intake Total 50 ml 280 ml 340 ml Output Total 25 ml Balance 50 ml 255 ml 340 ml Exam Constitutional: alert Neck: supple Respiratory: diminished breath sounds Cardiovascular: nl pulses Gastrointestinal: other (Hepatic drain), soft Extremities: normal pulses Constitutional: alert, oriented, well developed Results Result Diagram: 04/24/17 0610 04/24/17 0610 Results 24 hrs Laboratory Tests Test 04/23/17 17:08 04/23/17 20:22 04/23/17 21:10 04/23/17 22:10 Bedside Glucose 114 150 Blood Gas Specimen Source Blood arterial Arterial Blood Date Drawn 04/23/2017 9:30:25 PM Arterial Blood pH (Temp corrected) 7.471 H Arterial Blood pCO2 (Temp correct) 41.8 Arterial Blood pO2 (Temp corrected) 73.6 L Arterial Blood HCO3 29.8 H Arterial Blood Base Excess 5.6 H Arterial Blood Oxygen Saturation 94.6 L Ruben Test N/A Arterial Blood Gas Puncture Site LB Arterial Blood Carboxyhemoglobin 0.3 Arterial Blood Methemoglobin 0.4 Blood Gas A-a O2 Differential 235.9 H Oxyhemoglobin Percent 93.9 Total Hemoglobin 11.3 L Blood Gas Temperature 37.0 Blood Gas Modality MASK - SIMPLE FiO2 50.0 Blood Gas Notified Whom MA Blood Gas Notified Time 04/23/2017 9:42:38 PM Sodium Level 128 L Potassium Level 3.9 Chloride Level 94 L Carbon Dioxide Level 32 H Anion Gap 6 L Blood Urea Nitrogen 12 Creatinine 0.40 L Glucose Level 148 Lactic Acid Level 1.5 Calcium Level 8.5 Test 04/24/17 06:10 04/24/17 08:16 04/24/17 11:12 White Blood Count 17.3 H Red Blood Count 3.10 L Hemoglobin 9.3 L Hematocrit 28.8 L Mean Corpuscular Volume 92.9 Mean Corpuscular Hemoglobin 30.0 Mean Corpuscular Hemoglobin Concent 32.3 Red Cell Distribution Width 13.6 Platelet Count 152 # Mean Platelet Volume 9.3 Neutrophils % 83.8 H Lymphocytes % 6.2 L Monocytes % 8.7 Eosinophils % 0.3 Basophils % 0.2 Nucleated Red Blood Cells % 0.0 Neutrophils # 14.5 H Lymphocytes # 1.1 Monocytes # 1.5 H Eosinophils # 0.1 Basophils # 0.0 Nucleated Red Blood Cells # 0.0 Sodium Level 131 L Potassium Level 4.3 Chloride Level 95 L Carbon Dioxide Level 35 H Anion Gap 5 L Blood Urea Nitrogen 9 Creatinine 0.44 Glucose Level 116 Calcium Level 8.4 Total Bilirubin 0.3 Direct Bilirubin 0.00 Indirect Bilirubin 0.3 Aspartate Amino Transf (AST/SGOT) 56 H Alanine Aminotransferase (ALT/SGPT) 48 Alkaline Phosphatase 184 H Total Protein 5.6 L Albumin 2.4 L Globulin 3.20 Albumin/Globulin Ratio 0.75 Bedside Glucose 104 190 Medications Medications Current Medications Diagnostic Test (Pha) (Accu-Chek) 1 ea 02 XX Last administered on 04/15/17t 02: 00; Admin Dose 1 EA; Start 04/14/17 at 02:00 Miscellaneous Information 1 ea NOTE XX ; Start 04/13/17 at 21:30 Glucose (Glutose) 15 gm Q15M PRN PO DECREASED GLUCOSE; Start 04/13/17 at 21:30 Glucose (Glutose) 22.5 gm Q15M PRN PO DECREASED GLUCOSE; Start 04/13/17 at 21: 30 Dextrose (D50w Syringe) 25 ml Q15M PRN IV DECREASED GLUCOSE; Start 04/13/17 at 21:30 Dextrose (D50w Syringe) 50 ml Q15M PRN IV DECREASED GLUCOSE; Start 04/13/17 at 21:30 Glucagon (Glucagen) 1 mg Q15M PRN IM DECREASED GLUCOSE; Start 04/13/17 at 21:30 Glucose (Glutose) 15 gm Q15M PRN BUCCAL DECREASED GLUCOSE; Start 04/13/17 at 21 :30 Ondansetron HCl (Zofran Inj) 4 mg Q6 PRN IV NAUSEA AND/OR VOMITING Last administered on 04/24/17 04:19; Admin Dose 4 MG; Start 04/13/17 at 21:30 Guaifenesin/ Dextromethorphan (Robitussin Dm Liquid Cup) 5 ml Q4H PRN PO COUGH Last administered on 04/19/17 05:09; Admin Dose 5 ML; Start 04/15/17 at 16:30 Pantoprazole (Protonix Tab) 40 mg DAILY@06 PO Last administered on 04/24/17 05 :42; Admin Dose 40 MG; Start 04/17/17 at 06:00 Acetaminophen (Tylenol Tab) 500 mg Q6H PRN PO PAIN AND OR ELEVATED TEMP Last administered on 04/23/17 20:59; Admin Dose 500 MG; Start 04/17/17 at 03:00 Magnesium Hydroxide 30 ml 30 ml DAILY PRN PO CONSTIPATION; Start 04/17/17 at 11 :30 Ampicillin Sodium/ Sulbactam Sodium (Unasyn 1.5gm/NS (Pmx)) 50 ml @ 100 mls/hr Q6 IVPB Last administered on 04/24/17 12:18; Admin Dose 100 MLS/HR; Start at 18:00 Furosemide (Lasix) 20 mg DAILY@06 IV Last administered on 04/23/17 05:44; Admin Dose 20 MG; Start 04/18/17 at 18:30; Status Future Hold Fentanyl (Duragesic 12 Mcg/Hr Patch) 1 patch Q72H TRANSDERM Last administered on 04/22/17 05:43; Admin Dose 1 PATCH; Start 04/22/17 at 05:30 Morphine Sulfate (morphine) 1 mg Q4H PRN IV SEVERE PAIN LEVEL 7-10 Last administered on 04/24/17 04:14; Admin Dose 1 MG; Start 04/22/17 at 17:30 Metoclopramide HCl (Reglan) 10 mg Q6H PRN IV NAUSEA Last administered on 21:09; Admin Dose 10 MG; Start 04/22/17 at 21:00 Enoxaparin Sodium (Lovenox) 30 mg DAILY SC Last administered on 04/24/17 08:25 ; Admin Dose 30 MG; Start 04/23/17 at 20:30 Acetaminophen (Tylenol Supp) 650 mg Q6H PRN [place] FEVER GREATER THAN 100.6; Start 04/23/17 at 20:30 Acetaminophen (Tylenol Tab) 650 mg Q6H PRN PO PAIN AND OR ELEVATED TEMP; Start 04/23/17 at 20:30 Lactobacillus Acidophilus/ Rhamnosus (Culturelle) 1 cap BID PO Last administered on 04/24/17 12:22; Admin Dose 1 CAP; Start 04/24/17 at 11:30 WINDY EMERY Apr 24, 2017 13:52
--- NOTE | 2017-04-24 14:21 | CONS ---
Date/Time of Note Date/Time of Note DATE: 04/24/17 TIME: 14:15 Assessment/Plan Assessment/Plan Chief Complaint/Hosp Course Problems: Additional Assessment/Plan 1. Acute hyponatremia 2/2 Hypovolemic hyponatremia 2. sepsis due to liver abscess 3. Hepatic abscess oN CT scan s/p CT guided drainage on 04/15/17 and 04/23/17 4. Acute transaminitis 5. h/o Colon CA s/p previous Surgery 6. Hypokalemia Plan : pt transferred to ICU, BP stable, IV abx as per iD. Cr normal, Na 131- will give NS 1 liter IV x1 then stop Cr stable, will follow up Consultation Date/Type/Reason Admit Date/Time Apr 13, 2017 at 19:51 Initial Consult Date 04/13/17 Type of Consultation: NEPHROLOGY Referring Provider: DARREL BURT MD 24 HR Interval Summary Free Text/Dictation pt underwent another CT guided drainage, Na dropped Exam/Review of Systems Vital Signs Vitals Vital Signs Date Time Temp Pulse Resp B/P Pulse Ox O2 Delivery O2 Flow Rate FiO2 04/24/17 13:27 6.0 04/24/17 13:00 89 28 104/63 97 04/24/17 12:00 98.5 04/24/17 08:00 Simple Mask Intake and Output 04/23/17 04/23/17 04/24/17 15:00 23:00 07:00 Intake Total 50 ml 280 ml 340 ml Output Total 25 ml Balance 50 ml 255 ml 340 ml Exam Constitutional: alert Psych: no complaints Head: normocephalic Neck: non-tender, supple Respiratory: clear to auscultation, normal air movement Cardiovascular: other, regular rate and rhythm Gastrointestinal: soft Musculoskeletal: nl extremities to inspection Results Result Diagram: 04/24/17 0610 04/24/17 0610 Results 24 hrs Laboratory Tests Test 04/23/17 17:08 04/23/17 20:22 04/23/17 21:10 04/23/17 22:10 Bedside Glucose 114 150 Blood Gas Specimen Source Blood arterial Arterial Blood Date Drawn 04/23/2017 9:30:25 PM Arterial Blood pH (Temp corrected) 7.471 H Arterial Blood pCO2 (Temp correct) 41.8 Arterial Blood pO2 (Temp corrected) 73.6 L Arterial Blood HCO3 29.8 H Arterial Blood Base Excess 5.6 H Arterial Blood Oxygen Saturation 94.6 L Ruben Test N/A Arterial Blood Gas Puncture Site LB Arterial Blood Carboxyhemoglobin 0.3 Arterial Blood Methemoglobin 0.4 Blood Gas A-a O2 Differential 235.9 H Oxyhemoglobin Percent 93.9 Total Hemoglobin 11.3 L Blood Gas Temperature 37.0 Blood Gas Modality MASK - SIMPLE FiO2 50.0 Blood Gas Notified Whom MA Blood Gas Notified Time 04/23/2017 9:42:38 PM Sodium Level 128 L Potassium Level 3.9 Chloride Level 94 L Carbon Dioxide Level 32 H Anion Gap 6 L Blood Urea Nitrogen 12 Creatinine 0.40 L Glucose Level 148 Lactic Acid Level 1.5 Calcium Level 8.5 Test 04/24/17 06:10 04/24/17 08:16 04/24/17 11:12 White Blood Count 17.3 H Red Blood Count 3.10 L Hemoglobin 9.3 L Hematocrit 28.8 L Mean Corpuscular Volume 92.9 Mean Corpuscular Hemoglobin 30.0 Mean Corpuscular Hemoglobin Concent 32.3 Red Cell Distribution Width 13.6 Platelet Count 152 # Mean Platelet Volume 9.3 Neutrophils % 83.8 H Lymphocytes % 6.2 L Monocytes % 8.7 Eosinophils % 0.3 Basophils % 0.2 Nucleated Red Blood Cells % 0.0 Neutrophils # 14.5 H Lymphocytes # 1.1 Monocytes # 1.5 H Eosinophils # 0.1 Basophils # 0.0 Nucleated Red Blood Cells # 0.0 Sodium Level 131 L Potassium Level 4.3 Chloride Level 95 L Carbon Dioxide Level 35 H Anion Gap 5 L Blood Urea Nitrogen 9 Creatinine 0.44 Glucose Level 116 Calcium Level 8.4 Total Bilirubin 0.3 Direct Bilirubin 0.00 Indirect Bilirubin 0.3 Aspartate Amino Transf (AST/SGOT) 56 H Alanine Aminotransferase (ALT/SGPT) 48 Alkaline Phosphatase 184 H Total Protein 5.6 L Albumin 2.4 L Globulin 3.20 Albumin/Globulin Ratio 0.75 Bedside Glucose 104 190 Medications Medications Current Medications Diagnostic Test (Pha) (Accu-Chek) 1 ea XX Last administered on 04/15/17t 02: 00; Admin Dose 1 EA; Start 04/14/17 at 02:00 Miscellaneous Information 1 ea NOTE XX ; Start 04/13/17 at 21:30 Glucose (Glutose) 15 gm Q15M PRN PO DECREASED GLUCOSE; Start 04/13/17 at 21:30 Glucose (Glutose) 22.5 gm Q15M PRN PO DECREASED GLUCOSE; Start 04/13/17 at 21: 30 Dextrose (D50w Syringe) 25 ml Q15M PRN IV DECREASED GLUCOSE; Start 04/13/17 at 21:30 Dextrose (D50w Syringe) 50 ml Q15M PRN IV DECREASED GLUCOSE; Start 04/13/17 at 21:30 Glucagon (Glucagen) 1 mg Q15M PRN IM DECREASED GLUCOSE; Start 04/13/17 at 21:30 Glucose (Glutose) 15 gm Q15M PRN BUCCAL DECREASED GLUCOSE; Start 04/13/17 at 21 :30 Ondansetron HCl (Zofran Inj) 4 mg Q6 PRN IV NAUSEA AND/OR VOMITING Last administered on 04/24/17 04:19; Admin Dose 4 MG; Start 04/13/17 at 21:30 Guaifenesin/ Dextromethorphan (Robitussin Dm Liquid Cup) 5 ml Q4H PRN PO COUGH Last administered on 04/19/17 05:09; Admin Dose 5 ML; Start 04/15/17 at 16:30 Pantoprazole (Protonix Tab) 40 mg DAILY@06 PO Last administered on 04/24/17 05 :42; Admin Dose 40 MG; Start 04/17/17 at 06:00 Acetaminophen (Tylenol Tab) 500 mg Q6H PRN PO PAIN AND OR ELEVATED TEMP Last administered on 04/23/17 20:59; Admin Dose 500 MG; Start 04/17/17 at 03:00 Magnesium Hydroxide 30 ml 30 ml DAILY PRN PO CONSTIPATION; Start 04/17/17 at 11 :30 Ampicillin Sodium/ Sulbactam Sodium (Unasyn 1.5gm/NS (Pmx)) 50 ml @ 100 mls/hr Q6 IVPB Last administered on 04/24/17 12:18; Admin Dose 100 MLS/HR; Start at 18:00 Furosemide (Lasix) 20 mg DAILY@06 IV Last administered on 04/23/17 05:44; Admin Dose 20 MG; Start 04/18/17 at 18:30; Status Future Hold Fentanyl (Duragesic 12 Mcg/Hr Patch) 1 patch Q72H TRANSDERM Last administered on 04/22/17 05:43; Admin Dose 1 PATCH; Start 04/22/17 at 05:30 Morphine Sulfate (morphine) 1 mg Q4H PRN IV SEVERE PAIN LEVEL 7-10 Last administered on 04/24/17 04:14; Admin Dose 1 MG; Start 04/22/17 at 17:30 Metoclopramide HCl (Reglan) 10 mg Q6H PRN IV NAUSEA Last administered on 21:09; Admin Dose 10 MG; Start 04/22/17 at 21:00 Enoxaparin Sodium (Lovenox) 30 mg DAILY SC Last administered on 04/24/17 08:25 ; Admin Dose 30 MG; Start 04/23/17 at 20:30 Acetaminophen (Tylenol Supp) 650 mg Q6H PRN [place] FEVER GREATER THAN 100.6; Start 04/23/17 at 20:30 Acetaminophen (Tylenol Tab) 650 mg Q6H PRN PO PAIN AND OR ELEVATED TEMP; Start 04/23/17 at 20:30 Lactobacillus Acidophilus/ Rhamnosus (Culturelle) 1 cap BID PO Last administered on 04/24/17 12:22; Admin Dose 1 CAP; Start 04/24/17 at 11:30 NGOC GARZA MD Apr 24, 2017 14:21
--- NOTE | 2017-04-24 15:25 | CONS ---
Date/Time of Note Date/Time of Note DATE: 04/24/17 TIME: 15:22 Consult Date/Type/Reason Admit Date/Time Apr 13, 2017 at 19:51 Initial Consult Date 04/15/17 Type of Consultation: Pulm Ordering Provider: DARREL BURT MD Subjective Transferred to ICU for low BP. s/p CT guided drainage of liver abscess. Still complaining of shortness of breath. Minimal drainage from chest tube. Objective Vital Signs Date Time Temp Pulse Resp B/P Pulse Ox O2 Delivery O2 Flow Rate FiO2 04/24/17 13:27 6.0 04/24/17 13:00 89 28 104/63 97 04/24/17 12:00 98.5 04/24/17 08:00 Simple Mask Intake and Output 04/23/17 04/23/17 04/24/17 15:00 23:00 07:00 Intake Total 50 ml 280 ml 340 ml Output Total 25 ml Balance 50 ml 255 ml 340 ml Exam PHYSICAL EXAMINATION GENERAL: Elderly appearing lady VITAL SIGNS: see below. HEENT: Pupils equal, round, and reactive to light. CARDIAC: S1, S2, 1/6 systolic ejection murmur CHEST: Diminished air entry bilaterally. Chest tube in place. ABDOMEN: Mildly distended. Bowel sounds present no guarding or rebound EXTREMITIES: No cyanosis, clubbing edema +1 NEUROLOGIC: Generalized weakness Results/Medications Result Diagram: 04/24/17 0610 04/24/17 0610 Results 24 hrs Laboratory Tests Test 04/23/17 17:08 04/23/17 20:22 04/23/17 21:10 04/23/17 22:10 Bedside Glucose 114 150 Blood Gas Specimen Source Blood arterial Arterial Blood Date Drawn 04/23/2017 9:30:25 PM Arterial Blood pH (Temp corrected) 7.471 H Arterial Blood pCO2 (Temp correct) 41.8 Arterial Blood pO2 (Temp corrected) 73.6 L Arterial Blood HCO3 29.8 H Arterial Blood Base Excess 5.6 H Arterial Blood Oxygen Saturation 94.6 L Ruben Test N/A Arterial Blood Gas Puncture Site LB Arterial Blood Carboxyhemoglobin 0.3 Arterial Blood Methemoglobin 0.4 Blood Gas A-a O2 Differential 235.9 H Oxyhemoglobin Percent 93.9 Total Hemoglobin 11.3 L Blood Gas Temperature 37.0 Blood Gas Modality MASK - SIMPLE FiO2 50.0 Blood Gas Notified Whom PRIYANK Blood Gas Notified Time 04/23/2017 9:42:38 PM Sodium Level 128 L Potassium Level 3.9 Chloride Level 94 L Carbon Dioxide Level 32 H Anion Gap 6 L Blood Urea Nitrogen 12 Creatinine 0.40 L Glucose Level 148 Lactic Acid Level 1.5 Calcium Level 8.5 Test 04/24/17 06:10 04/24/17 08:16 04/24/17 11:12 White Blood Count 17.3 H Red Blood Count 3.10 L Hemoglobin 9.3 L Hematocrit 28.8 L Mean Corpuscular Volume 92.9 Mean Corpuscular Hemoglobin 30.0 Mean Corpuscular Hemoglobin Concent 32.3 Red Cell Distribution Width 13.6 Platelet Count 152 # Mean Platelet Volume 9.3 Neutrophils % 83.8 H Lymphocytes % 6.2 L Monocytes % 8.7 Eosinophils % 0.3 Basophils % 0.2 Nucleated Red Blood Cells % 0.0 Neutrophils # 14.5 H Lymphocytes # 1.1 Monocytes # 1.5 H Eosinophils # 0.1 Basophils # 0.0 Nucleated Red Blood Cells # 0.0 Sodium Level 131 L Potassium Level 4.3 Chloride Level 95 L Carbon Dioxide Level 35 H Anion Gap 5 L Blood Urea Nitrogen 9 Creatinine 0.44 Glucose Level 116 Calcium Level 8.4 Total Bilirubin 0.3 Direct Bilirubin 0.00 Indirect Bilirubin 0.3 Aspartate Amino Transf (AST/SGOT) 56 H Alanine Aminotransferase (ALT/SGPT) 48 Alkaline Phosphatase 184 H Total Protein 5.6 L Albumin 2.4 L Globulin 3.20 Albumin/Globulin Ratio 0.75 Bedside Glucose 104 190 Medications Current Medications Diagnostic Test (Pha) (Accu-Chek) 1 ea 02 XX Last administered on 04/15/17t 02: 00; Admin Dose 1 EA; Start 04/14/17 at 02:00 Miscellaneous Information 1 ea NOTE XX ; Start 04/13/17 at 21:30 Glucose (Glutose) 15 gm Q15M PRN PO DECREASED GLUCOSE; Start 04/13/17 at 21:30 Glucose (Glutose) 22.5 gm Q15M PRN PO DECREASED GLUCOSE; Start 04/13/17 at 21: 30 Dextrose (D50w Syringe) 25 ml Q15M PRN IV DECREASED GLUCOSE; Start 04/13/17 at 21:30 Dextrose (D50w Syringe) 50 ml Q15M PRN IV DECREASED GLUCOSE; Start 04/13/17 at 21:30 Glucagon (Glucagen) 1 mg Q15M PRN IM DECREASED GLUCOSE; Start 04/13/17 at 21:30 Glucose (Glutose) 15 gm Q15M PRN BUCCAL DECREASED GLUCOSE; Start 04/13/17 at 21 :30 Ondansetron HCl (Zofran Inj) 4 mg Q6 PRN IV NAUSEA AND/OR VOMITING Last administered on 04/24/17 04:19; Admin Dose 4 MG; Start 04/13/17 at 21:30 Guaifenesin/ Dextromethorphan (Robitussin Dm Liquid Cup) 5 ml Q4H PRN PO COUGH Last administered on 04/19/17 05:09; Admin Dose 5 ML; Start 04/15/17 at 16:30 Pantoprazole (Protonix Tab) 40 mg DAILY@06 PO Last administered on 04/24/17 05 :42; Admin Dose 40 MG; Start 04/17/17 at 06:00 Acetaminophen (Tylenol Tab) 500 mg Q6H PRN PO PAIN AND OR ELEVATED TEMP Last administered on 04/23/17 20:59; Admin Dose 500 MG; Start 04/17/17 at 03:00 Magnesium Hydroxide 30 ml 30 ml DAILY PRN PO CONSTIPATION; Start 04/17/17 at 11 :30 Ampicillin Sodium/ Sulbactam Sodium (Unasyn 1.5gm/NS (Pmx)) 50 ml @ 100 mls/hr Q6 IVPB Last administered on 04/24/17 12:18; Admin Dose 100 MLS/HR; Start at 18:00 Furosemide (Lasix) 20 mg DAILY@06 IV Last administered on 04/23/17 05:44; Admin Dose 20 MG; Start 04/18/17 at 18:30; Status Future Hold Fentanyl (Duragesic 12 Mcg/Hr Patch) 1 patch Q72H TRANSDERM Last administered on 04/22/17 05:43; Admin Dose 1 PATCH; Start 04/22/17 at 05:30 Morphine Sulfate (morphine) 1 mg Q4H PRN IV SEVERE PAIN LEVEL 7-10 Last administered on 04/24/17 04:14; Admin Dose 1 MG; Start 04/22/17 at 17:30 Metoclopramide HCl (Reglan) 10 mg Q6H PRN IV NAUSEA Last administered on 21:09; Admin Dose 10 MG; Start 04/22/17 at 21:00 Enoxaparin Sodium (Lovenox) 30 mg DAILY SC Last administered on 04/24/17 08:25 ; Admin Dose 30 MG; Start 04/23/17 at 20:30 Acetaminophen (Tylenol Supp) 650 mg Q6H PRN [place] FEVER GREATER THAN 100.6; Start 04/23/17 at 20:30 Acetaminophen (Tylenol Tab) 650 mg Q6H PRN PO PAIN AND OR ELEVATED TEMP; Start 04/23/17 at 20:30 Lactobacillus Acidophilus/ Rhamnosus (Culturelle) 1 cap BID PO Last administered on 04/24/17 12:22; Admin Dose 1 CAP; Start 04/24/17 at 11:30 Assessment/Plan Chief Complaint/Hosp Course Assessment 1. Loculated pleural effusion likely secondary to hepatic process 2. Hepatic hydrothorax status post chest tube however loculated pleural effusion will likely require decortication. 3. Liver abscesses with gamma hemolytic strep, s/p CT guided drainage x 2 Plan 1. Continue antibiotics per ID 2. Chest tube readjustment vs VATS early next week. Discussed with Dr Martin, may need to defer thoracic surgery until liver abscess resolved. 3. Continue percutaneous drainage of abdominal abscess Continue icu care. Problems: DEN[facility] BRAVO MD, [facility] Apr 24, 2017 15:25
[2017-04-24 15:32] LABS: ABNORMAL IP MESSAGE 1; BASOPHILS % 0.2 % (0.0-2.0); EOSINOPHILS # 0.1 10^3/ul (0.0-0.5); EOSINOPHILS % 0.3 % (0.0-7.0); HEMATOCRIT 28.3 % (37.0-47.0); HEMOGLOBIN 9.5 g/dl (12.0-16.0); LYMPHOCYTES # 1.3 10^3/ul (0.8-2.9); LYMPHOCYTES % 6.6 % (15.0-51.0); MEAN CORPUSCULAR HEMOGLOBIN 31.3 pg (29.0-33.0); MEAN CORPUSCULAR HGB CONC 33.6 g/dl (32.0-37.0); MEAN CORPUSCULAR VOLUME 93.1 fl (82.0-101.0); MEAN PLATELET VOLUME 9.1 fl (7.4-10.4); MONOCYTE # 1.6 10^3/ul (0.3-0.9); MONOCYTES % 8.2 % (0.0-11.0); NEUTROPHIL # 16.6 10^3/ul (1.6-7.5); NEUTROPHILS % 83.7 % (39.0-77.0); PLATELET COUNT 176 10^3/UL (140-415); RED BLOOD COUNT 3.04 10^6/ul (4.20-5.40); RED CELL DISTRIBUTION WIDTH 13.5 % (11.5-14.5); WHITE BLOOD COUNT 19.8 10^3/ul (4.8-10.8)
[2017-04-24 15:37] LABS: POSITIVE DIFF @See below
--- NOTE | 2017-04-24 17:59 | CONS ---
Date/Time of Note Date/Time of Note DATE: 04/24/17 TIME: 17:55 Assessment/Plan Assessment/Plan Chief Complaint/Hosp Course IMP: 1.Hypotension-now improved 2.abnl ecg-with ST elevations anterior-negative trop x 3/NL EF by echo. NO CP 3.Liver abscess s/p CT guided drainage 4.H/O lung ca s/p resection with lung nodules by CT? 5.Lung nodules 6. Hyponatremia 7. s/p R sided CT Recc: -Now transferred to ICU -Continue abx's -F/U cx data -Follow BP closely -pain control -Hold lasix and follow volume status/NA closely Problems: Consultation Date/Type/Reason Admit Date/Time Apr 13, 2017 at 19:51 Initial Consult Date 04/13/17 Type of Consultation: cardiology Reason for Consultation chest pain Referring Provider: DARREL BURT MD Exam/Review of Systems Vital Signs Vitals Vital Signs Date Time Temp Pulse Resp B/P Pulse Ox O2 Delivery O2 Flow Rate FiO2 04/24/17 17:00 97 33 121/74 96 04/24/17 16:00 98.6 04/24/17 13:27 6.0 04/24/17 08:00 Simple Mask Intake and Output 04/23/17 04/23/17 04/24/17 15:00 23:00 07:00 Intake Total 50 ml 280 ml 340 ml Output Total 25 ml Balance 50 ml 255 ml 340 ml Exam Review of Systems: CONSTITUTIONAL: No fevers, chills. PULMONARY: mod sob CARDIOVASCULAR: No chest pain/palpitations GASTROINTESTINAL: abd pain GENITOURINARY: No hematuria/dysuria. MUSCULOSKELETAL: No myagias/arthalgias. PSYCHIATRIC: The patient denies depression. NEUROLOGIC: No weakness Constitutional: alert Psych: no complaints Head: normocephalic ENMT: mucosa pink and moist, other (face mask in place) Respiratory: other (upper airway rhocherous sounds) Cardiovascular: other (R sided CT), regular rate and rhythm Gastrointestinal: non-tender, soft Musculoskeletal: muscle tone (normal) Extremities: edema (none) 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: other (No focal deficits) Results Result Diagram: 04/24/17 1510 04/24/17 0610 Results 24 hrs Laboratory Tests Test 04/23/17 20:22 9/21/17 21:10 04/23/17 22:10 04/24/17 06:10 Blood Gas Specimen Source Blood arterial Arterial Blood Date Drawn 04/23/2017 9:30:25 PM Arterial Blood pH (Temp corrected) 7.471 H Arterial Blood pCO2 (Temp correct) 41.8 Arterial Blood pO2 (Temp corrected) 73.6 L Arterial Blood HCO3 29.8 H Arterial Blood Base Excess 5.6 H Arterial Blood Oxygen Saturation 94.6 L Ruben Test N/A Arterial Blood Gas Puncture Site LB Arterial Blood Carboxyhemoglobin 0.3 Arterial Blood Methemoglobin 0.4 Blood Gas A-a O2 Differential 235.9 H Oxyhemoglobin Percent 93.9 Total Hemoglobin 11.3 L Blood Gas Temperature 37.0 Blood Gas Modality MASK - SIMPLE FiO2 50.0 Blood Gas Notified Whom [place] Blood Gas Notified Time 04/23/2017 9:42:38 PM Sodium Level 128 L 131 L Potassium Level 3.9 4.3 Chloride Level 94 L 95 L Carbon Dioxide Level 32 H 35 H Anion Gap 6 L 5 L Blood Urea Nitrogen 12 9 Creatinine 0.40 L 0.44 Glucose Level 148 116 Lactic Acid Level 1.5 Calcium Level 8.5 8.4 Bedside Glucose 150 White Blood Count 17.3 H Red Blood Count 3.10 L Hemoglobin 9.3 L Hematocrit 28.8 L Mean Corpuscular Volume 92.9 Mean Corpuscular Hemoglobin 30.0 Mean Corpuscular Hemoglobin Concent 32.3 Red Cell Distribution Width 13.6 Platelet Count 152 # Mean Platelet Volume 9.3 Neutrophils % 83.8 H Lymphocytes % 6.2 L Monocytes % 8.7 Eosinophils % 0.3 Basophils % 0.2 Nucleated Red Blood Cells % 0.0 Neutrophils # 14.5 H Lymphocytes # 1.1 Monocytes # 1.5 H Eosinophils # 0.1 Basophils # 0.0 Nucleated Red Blood Cells # 0.0 Total Bilirubin 0.3 Direct Bilirubin 0.00 Indirect Bilirubin 0.3 Aspartate Amino Transf (AST/SGOT) 56 H Alanine Aminotransferase (ALT/SGPT) 48 Alkaline Phosphatase 184 H Total Protein 5.6 L Albumin 2.4 L Globulin 3.20 Albumin/Globulin Ratio 0.75 Test 04/24/17 08:16 04/24/17 11:12 04/24/17 15:10 04/24/17 16:37 Bedside Glucose 104 190 118 White Blood Count 19.8 H Red Blood Count 3.04 L Hemoglobin 9.5 L Hematocrit 28.3 L Mean Corpuscular Volume 93.1 Mean Corpuscular Hemoglobin 31.3 Mean Corpuscular Hemoglobin Concent 33.6 Red Cell Distribution Width 13.5 Platelet Count 176 Mean Platelet Volume 9.1 Neutrophils % 83.7 H Lymphocytes % 6.6 L Monocytes % 8.2 Eosinophils % 0.3 Basophils % 0.2 Nucleated Red Blood Cells % 0.0 Neutrophils # 16.6 H Lymphocytes # 1.3 Monocytes # 1.6 H Eosinophils # 0.1 Basophils # 0.0 Nucleated Red Blood Cells # 0.0 Medications Medications Current Medications Diagnostic Test (Pha) (Accu-Chek) 1 ea 02 XX Last administered on 04/15/17 02: 00; Admin Dose 1 EA; Start 04/14/17 at 02:00 Miscellaneous Information 1 ea NOTE XX ; Start 04/13/17 at 21:30 Glucose (Glutose) 15 gm Q15M PRN PO DECREASED GLUCOSE; Start 04/13/17 at 21:30 Glucose (Glutose) 22.5 gm Q15M PRN PO DECREASED GLUCOSE; Start 04/13/17 at 21: 30 Dextrose (D50w Syringe) 25 ml Q15M PRN IV DECREASED GLUCOSE; Start 04/13/17 at 21:30 Dextrose (D50w Syringe) 50 ml Q15M PRN IV DECREASED GLUCOSE; Start 04/13/17 at 21:30 Glucagon (Glucagen) 1 mg Q15M PRN IM DECREASED GLUCOSE; Start 04/13/17 at 21:30 Glucose (Glutose) 15 gm Q15M PRN BUCCAL DECREASED GLUCOSE; Start 04/13/17 at 21 :30 Ondansetron HCl (Zofran Inj) 4 mg Q6 PRN IV NAUSEA AND/OR VOMITING Last administered on 04/24/17 04:19; Admin Dose 4 MG; Start 04/13/17 at 21:30 Guaifenesin/ Dextromethorphan (Robitussin Dm Liquid Cup) 5 ml Q4H PRN PO COUGH Last administered on 04/19/17 05:09; Admin Dose 5 ML; Start 04/15/17 at 16:30 Pantoprazole (Protonix Tab) 40 mg DAILY@06 PO Last administered on 04/24/17 05 :42; Admin Dose 40 MG; Start 04/17/17 at 06:00 Acetaminophen (Tylenol Tab) 500 mg Q6H PRN PO PAIN AND OR ELEVATED TEMP Last administered on 04/23/17 20:59; Admin Dose 500 MG; Start 04/17/17 at 03:00 Magnesium Hydroxide 30 ml 30 ml DAILY PRN PO CONSTIPATION; Start 04/17/17 at 11 :30 Ampicillin Sodium/ Sulbactam Sodium (Unasyn 1.5gm/NS (Pmx)) 50 ml @ 100 mls/hr Q6 IVPB Last administered on 04/24/17 17:32; Admin Dose 100 MLS/HR; Start at 18:00 Furosemide (Lasix) 20 mg DAILY@06 IV Last administered on 04/23/17 05:44; Admin Dose 20 MG; Start 04/18/17 at 18:30; Status Future Hold Fentanyl (Duragesic 12 Mcg/Hr Patch) 1 patch Q72H TRANSDERM Last administered on 04/22/17 05:43; Admin Dose 1 PATCH; Start 04/22/17 at 05:30 Morphine Sulfate (morphine) 1 mg Q4H PRN IV SEVERE PAIN LEVEL 7-10 Last administered on 04/24/17 04:14; Admin Dose 1 MG; Start 04/22/17 at 17:30 Metoclopramide HCl (Reglan) 10 mg Q6H PRN IV NAUSEA Last administered on 21:09; Admin Dose 10 MG; Start 04/22/17 at 21:00 Enoxaparin Sodium (Lovenox) 30 mg DAILY SC Last administered on 04/24/17 08:25 ; Admin Dose 30 MG; Start 04/23/17 at 20:30 Acetaminophen (Tylenol Supp) 650 mg Q6H PRN [place] FEVER GREATER THAN 100.6; Start 04/23/17 at 20:30 Acetaminophen (Tylenol Tab) 650 mg Q6H PRN PO PAIN AND OR ELEVATED TEMP; Start 04/23/17 at 20:30 Lactobacillus Acidophilus/ Rhamnosus (Culturelle) 1 cap BID PO Last administered on 04/24/17 12:22; Admin Dose 1 CAP; Start 04/24/17 at 11:30 LILIANA BARKSDALE Apr 24, 2017 17:59
--- NOTE | 2017-04-24 19:26 | PN ---
Date/Time of Note Date/Time of Note DATE: 04/24/17 TIME: 19:24 Assessment/Plan Lines/Catheters IV Catheter Type (from Nrsg): Saline Lock Khan in Place (from Nrsg): No Assessment/Plan Chief Complaint/Hosp Course 66-year-old female with a history of colon/rectal ca presenting with sepsis due to liver abscesses, whose course has been complicated by mild hypoxemic resp insufficiency with enlarging R.> L effusions. SP CT placement will need VATS decortication if she does not respond to CT Sxn Continue antibiotics per ID VATS early next week. may need to defer thoracic surgery until liver abscess resolved. Continue percutaneous drainage of abdominal abscess Problems: Subjective 24 Hr Interval Summary Constitutional: improved Pain Control: mild Exam/Review of Systems Vital Signs Vitals Vital Signs Date Time Temp Pulse Resp B/P Pulse Ox O2 Delivery O2 Flow Rate FiO2 04/24/17 17:00 97 33 121/74 96 04/24/17 16:00 98.6 04/24/17 13:27 6.0 04/24/17 08:00 Simple Mask Intake and Output 04/23/17 04/23/17 04/24/17 15:00 23:00 07:00 Intake Total 50 ml 280 ml 340 ml Output Total 25 ml Balance 50 ml 255 ml 340 ml Exam Eyes: EOMI, nl conjunctiva, nl lids, nl sclera ENMT: mucosa pink and moist, nl external ears & nose, nl lips & teeth, nl nasal mucosa & septum Neck: non-tender, supple Respiratory: clear to auscultation, normal air movement Cardiovascular: nl pulses, regular rate and rhythm Results Result Diagram: 04/24/17 1510 04/24/17 0610 ADRIAN NO MD Apr 24, 2017 19:26
[2017-04-24] MEDS: ACETAMINOPHEN 500 MG TAB PO PRN (19:35)
[2017-04-25] VITALS (21 sets, daily range): BP systolic 94–150; BP diastolic 58–81; PULSE 89–128; RESP 9–46
[2017-04-25] MEDS: AMPICILLIN/SULB 1.5GM/NS (PMX) 50 ML IVPB SCH ×4 (00:02→17:29)
[2017-04-25] MEDS: ACCU-CHEK XX SCH (02:00)
[2017-04-25] MEDS ORDERED: ACCU-CHEK XX SCH ×2 (05:00)
[2017-04-25] MEDS: FENTAnyl PATCH 12 MCG/HR TRANSDERM SCH (05:45)
[2017-04-25] MEDS: PANTOPRAZOLE (EC) 40 MG TAB PO SCH (05:46)
[2017-04-25 06:30] LABS: CALCIUM 8.3 mg/dl (8.4-10.2); CREATININE 0.35 mg/dl (0.44-1.00); POTASSIUM 4.2 mmol/L (3.5-5.1)
--- NOTE | 2017-04-25 07:27 | RADRPT ---
PROCEDURE: XR Chest. CLINICAL INDICATION: Shortness of breath. TECHNIQUE: Single frontal view. COMPARISON: 04/24/2017. FINDINGS: The right chest tube remains in position. There is diffuse opacification of the right lung due to la rge effusion with adjacent atelectasis, unchanged. There is left basilar atelectasis and a small lef t pleural effusion. The heart size is normal. There is no pleural effusion. There is no pneumothorax. IMPRESSION: 1. No change from 04/24/2017. RPTAT: QQ .Logan Decker MD, MD Date Time Electronically viewed and signed by .Logan Decker MD, MD on 04/25/2017 07:26 .R/
[2017-04-25] MEDS: MINERAL OIL 30ML CUP PO SCH (07:53)
[2017-04-25] MEDS: Insulin NOVOLOG SS MILD Algorithm (SS with meals and bedtime) SC SCH ×4 (08:28→20:49)
[2017-04-25 08:56] LABS: AADO2 Arterial 179.6 mmHg (7.0-24.0); Allen Test ACCEPTAB; Arterial Base Excess 7.7 mmol/L (-3.0-3); Arterial COHb 0.3 % (0.0-3.0); Arterial Fraction of Oxyhgb 96.4 % (93.0-99.0); Arterial HCO3 32.3 mmol/L (22.0-26.0); Arterial MetHb 0.3 % (0.0-1.5); Arterial Total Hemglobin 8.7 g/dl (12.0-18.0); MODE MASK - SIMPLE
[2017-04-25] MEDS: LACTOBACILLUS RHAMNOSUS CAP PO SCH ×2 (08:58→22:05)
[2017-04-25] MEDS: ENOXAPARIN 30 MG/0.3 ML SYG SC SCH (09:09)
--- NOTE | 2017-04-25 09:22 | PN ---
DATE: 04/24/2017 SUBJECTIVE: Apparently the patient was transferred to ICU last night because of desaturation and also low blood pressure. Was placed on simple face mask at 6 L/minute and also temperature max at that time was 100.9. Stallings cultures have been sent. Now today, patient states that shortness of breath has slightly improved. Also complains of some pain and right-sided chest tube at the site of the placement. No nausea, no vomiting. OBJECTIVE: The patient is in ICU. VITAL SIGNS: Temperature at 8:00 a.m. 98.3, heart rate 89, respiration 19 on 6 L simple mask. Blood pressure 111/67. Saturation pulse oximetry 98 percent. LABORATORY DATA: From 6:00 a.m. today, WBC 17,300, with 83.8 percent segmented. Hemoglobin 9.3, hematocrit 28.8. Chemistry, sodium 131, which is normal. Potassium 4.3. BUN 9, creatinine 0.44. Calcium 8.4. Bilirubin 0.3. AST 56, slightly elevated. AST 48, normal. Alk phos 184. Total protein 5.6, albumin 2.4. PHYSICAL EXAMINATION: GENERAL: This patient is alert, awake, oriented x3. HEART: Regular rate, rhythm. LUNGS: Decreased breathing sound on the right side. There is a chest tube on the right side into the pleural space, it has not drained that much, maybe since yesterday in 24 hours about 10 mL has drained serosanguineous fluid. ABDOMEN: There is a pigtail drain entering the peritoneal cavity and liver abscess cavity at the level of the epigastric area and it is draining serosanguineous fluid. Apparently when we 1st put it yesterday, the aspiration was purulent, this was sent for culture and gram stain, but now it is not purulent and it appears serosanguineous in nature. This has drained 30 mL in past 24 hours. Abdomen is soft. Evidence of incisional hernia. LOWER EXTREMITY: No pitting edema. ASSESSMENT AND PLAN: This is a 66-year-old female, who presented to the emergency room with weakness and fever for 2 weeks, was found to have multiloculated liver abscess. On the 15 of April, CT-guided drainage catheter was placed and some purulent fluid was aspirated and drained and gradually changed into serous color. Apparently yesterday or the day before yesterday, this tube has been removed. Then yesterday again, CT-guided aspiration of abscess cavity was done by [facility], the 1st aspirate was purulent, but now today it is serosanguineous. The patient has bilateral pleural effusion the Right side was aspirated on 04/20/[address] Decker and 210 mL was aspiration, but completely was not drained. Later on, on the a chest tube was placed by thoracic surgeon. t. The patient is on regular diet. Last night, her blood pressure dropped and also desaturation occurred, so patient was transferred to ICU. Was on simple mask at 6 L, which is responding very well. The patient is feeling better with the IV infusion. The blood pressure has raised up, today is doing better. Also, lactic acid was in the normal range. WBC has remained high since the past 3 days, it is 17,300, with shift to the left. PLAN: The patient is getting Unasyn for the liver abscess and per Dr. Jackson, the patient needs decortication for drainage of the fluid from the right pleural space if the chest tube is not working. I reviewed all the x-rays and all the data with Dr. Martin and he he does not think that surgical open approach for drainage of the abscess is feasible , because the multiloculated Abscesses are located in central part of Liver and is very dangerous performing surgical drainage. So, we prefer that if even several aspirations is needed or several catheters are needed to be done under CT guidance. We have again discussed with Dr. Decker today. Dictated By: Osmani Ceballos MD /rachel/edd /Document#: [id number] SANJAY
[2017-04-25] MEDS: morphine 2 MG INJ IV PRN ×2 (10:19→19:38)
--- NOTE | 2017-04-25 10:33 | CONS ---
Date/Time of Note Date/Time of Note DATE: 04/25/17 TIME: 10:31 Assessment/Plan Assessment/Plan Additional Assessment/Plan Plan and recommendations; 1. Patient admitted with hepatic abscess status post drainage. 2. 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 Status post chest tube placement. However chest x-ray from today showing complete whiteout of the right lung. Continue current treatment. Will obtain another CT of the chest without contrast. Patient may need decortication. Consultation Date/Type/Reason Admit Date/Time Apr 13, 2017 at 19:51 Initial Consult Date 04/15/17 Type of Consultation: Pulmonary/critical care Referring Provider: DARREL BURT MD 24 HR Interval Summary Free Text/Dictation Patient's condition is stable. Remains awake alert. Denies any shortness of breath, chest pain, abdominal pain, nausea or vomiting. General exam; elderly woman, awake alert, currently in no distress. Exam/Review of Systems Vital Signs Vitals Vital Signs Date Time Temp Pulse Resp B/P Pulse Ox O2 Delivery O2 Flow Rate FiO2 04/25/17 10:00 97 31 99/63 97 Mask 6.0 04/25/17 08:00 98.8 Intake and Output 04/24/17 04/24/17 04/25/17 15:00 23:00 07:00 Intake Total 480 ml 440 ml 0 ml Output Total 260 ml 540 ml 500 ml Balance 220 ml -100 ml -500 ml Exam HEENT exam; supple neck, no JVD. No lymphadenopathy. Midline trachea. No thyromegaly. Patient has fair dentition. Pupils are midsize and reactive to light. Chest exam; diminished breath sounds right lung. Right side chest tube in place. Left lung is clear to auscultation. S1-S2 audible, no murmurs. Regular rhythm. Abdomen exam; soft, nontender. No organomegaly. Bowel sounds audible. Extremity exam; no peripheral edema. 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 Results Result Diagram: 04/24/17 1510 04/25/17 0520 Results 24 hrs Laboratory Tests Test 04/24/17 11:12 04/24/17 15:10 04/24/17 16:37 04/24/17 20:37 Bedside Glucose 190 118 147 White Blood Count 19.8 H Red Blood Count 3.04 L Hemoglobin 9.5 L Hematocrit 28.3 L Mean Corpuscular Volume 93.1 Mean Corpuscular Hemoglobin 31.3 Mean Corpuscular Hemoglobin Concent 33.6 Red Cell Distribution Width 13.5 Platelet Count 176 Mean Platelet Volume 9.1 Neutrophils % 83.7 H Lymphocytes % 6.6 L Monocytes % 8.2 Eosinophils % 0.3 Basophils % 0.2 Nucleated Red Blood Cells % 0.0 Neutrophils # 16.6 H Lymphocytes # 1.3 Monocytes # 1.6 H Eosinophils # 0.1 Basophils # 0.0 Nucleated Red Blood Cells # 0.0 Test 04/25/17 05:20 04/25/17 05:21 04/25/17 07:00 04/25/17 08:18 Sodium Level 132 L Potassium Level 4.2 Chloride Level 97 Carbon Dioxide Level 32 H Anion Gap 7 L Blood Urea Nitrogen 7 Creatinine 0.35 L Glucose Level 117 Calcium Level 8.3 L Bedside Glucose 109 161 Blood Gas Specimen Source Blood arterial Arterial Blood Date Drawn 04/25/2017 8:30:33 AM Arterial Blood pH (Temp corrected) 7.463 H Arterial Blood pCO2 (Temp correct) 46.1 H Arterial Blood pO2 (Temp corrected) 88.8 Arterial Blood HCO3 32.3 H Arterial Blood Base Excess 7.7 H Arterial Blood Oxygen Saturation 97.0 Ruben Test ACCEPTAB Arterial Blood Gas Puncture Site Right Radial Arterial Blood Carboxyhemoglobin 0.3 Arterial Blood Methemoglobin 0.3 Blood Gas A-a O2 Differential 179.6 H Oxyhemoglobin Percent 96.4 Total Hemoglobin 8.7 L Blood Gas Temperature 37.0 Blood Gas Modality MASK - SIMPLE FiO2 45.0 Blood Gas Notified Whom DT Blood Gas Notified Time 04/25/2017 8:55:54 AM Medications Medications Current Medications Miscellaneous Information 1 ea NOTE XX ; Start 04/13/17 at 21:30 Glucose (Glutose) 15 gm Q15M PRN PO DECREASED GLUCOSE; Start 04/13/17 at 21:30 Glucose (Glutose) 22.5 gm Q15M PRN PO DECREASED GLUCOSE; Start 04/13/17 at 21: 30 Dextrose (D50w Syringe) 25 ml Q15M PRN IV DECREASED GLUCOSE; Start 04/13/17 at 21:30 Dextrose (D50w Syringe) 50 ml Q15M PRN IV DECREASED GLUCOSE; Start 04/13/17 at 21:30 Glucagon (Glucagen) 1 mg Q15M PRN IM DECREASED GLUCOSE; Start 04/13/17 at 21:30 Glucose (Glutose) 15 gm Q15M PRN BUCCAL DECREASED GLUCOSE; Start 04/13/17 at 21 :30 Ondansetron HCl (Zofran Inj) 4 mg Q6 PRN IV NAUSEA AND/OR VOMITING Last administered on 04/24/17 04:19; Admin Dose 4 MG; Start 04/13/17 at 21:30 Guaifenesin/ Dextromethorphan (Robitussin Dm Liquid Cup) 5 ml Q4H PRN PO COUGH Last administered on 04/19/17 05:09; Admin Dose 5 ML; Start 04/15/17 at 16:30 Pantoprazole (Protonix Tab) 40 mg DAILY@06 PO Last administered on 04/25/17 05 :46; Admin Dose 40 MG; Start 04/17/17 at 06:00 Acetaminophen (Tylenol Tab) 500 mg Q6H PRN PO PAIN AND OR ELEVATED TEMP Last administered on 04/24/17 19:35; Admin Dose 500 MG; Start 04/17/17 at 03:00 Magnesium Hydroxide 30 ml 30 ml DAILY PRN PO CONSTIPATION; Start 04/17/17 at 11 :30 Ampicillin Sodium/ Sulbactam Sodium (Unasyn 1.5gm/NS (Pmx)) 50 ml @ 100 mls/hr Q6 IVPB Last administered on 04/25/17 05:46; Admin Dose 100 MLS/HR; Start at 18:00 Furosemide (Lasix) 20 mg DAILY@06 IV Last administered on 04/23/17 05:44; Admin Dose 20 MG; Start 04/18/17 at 18:30; Status Future Hold Fentanyl (Duragesic 12 Mcg/Hr Patch) 1 patch Q72H TRANSDERM Last administered on 04/25/17 05:45; Admin Dose 1 PATCH; Start 04/22/17 at 05:30 Morphine Sulfate (morphine) 1 mg Q4H PRN IV SEVERE PAIN LEVEL 7-10 Last administered on 04/25/17 10:19; Admin Dose 1 MG; Start 04/22/17 at 17:30 Metoclopramide HCl (Reglan) 10 mg Q6H PRN IV NAUSEA Last administered on 21:09; Admin Dose 10 MG; Start 04/22/17 at 21:00 Enoxaparin Sodium (Lovenox) 30 mg DAILY SC Last administered on 04/25/17 09:09 ; Admin Dose 30 MG; Start 04/23/17 at 20:30 Acetaminophen (Tylenol Supp) 650 mg Q6H PRN [place] FEVER GREATER THAN 100.6; Start 04/23/17 at 20:30 Acetaminophen (Tylenol Tab) 650 mg Q6H PRN PO PAIN AND OR ELEVATED TEMP; Start 04/23/17 at 20:30 Lactobacillus Acidophilus/ Rhamnosus (Culturelle) 1 cap BID PO Last administered on 04/25/17 08:58; Admin Dose 1 CAP; Start 04/24/17 at 11:30 Diagnostic Test (Pha) (Accu-Chek) 1 ea 02 XX ; Start 04/26/17 at 02:00 LINDA GARCIA Apr 25, 2017 10:33
[2017-04-25] MEDS: SOD CHLORIDE 0.9% 1,000 ML IV SCH (13:41)
--- NOTE | 2017-04-25 13:57 | CONS ---
Date/Time of Note Date/Time of Note DATE: 04/25/17 TIME: 13:53 Assessment/Plan Assessment/Plan Additional Assessment/Plan 1.Hypotension-now improved 2.abnl ecg-with ST elevations anterior-negative trop x 3/NL EF by echo. NO CP 3.Liver abscess s/p CT guided drainage 4.H/O lung ca s/p resection with lung nodules by CT? 5.Lung nodules Recc: OK to tele Consultation Date/Type/Reason Admit Date/Time Apr 13, 2017 at 19:51 Initial Consult Date 04/21/17 Type of Consultation: Pulmonary/critical care Referring Provider: DARREL BURT MD 24 HR Interval Summary Free Text/Dictation No complains Exam/Review of Systems Vital Signs Vitals Vital Signs Date Time Temp Pulse Resp B/P Pulse Ox O2 Delivery O2 Flow Rate FiO2 04/25/17 12:00 98.4 105 46 104/60 96 Mask 6.0 Intake and Output 04/24/17 04/24/17 04/25/17 15:00 23:00 07:00 Intake Total 480 ml 440 ml 100 ml Output Total 260 ml 540 ml 500 ml Balance 220 ml -100 ml -400 ml Exam No JVD Heart : RSR Lumgs: Clear Abd: B9 Ext: No edema Results Result Diagram: 04/24/17 1510 04/25/17 0520 Results 24 hrs Laboratory Tests Test 04/24/17 15:10 04/24/17 16:37 04/24/17 20:37 04/25/17 05:20 White Blood Count 19.8 H Red Blood Count 3.04 L Hemoglobin 9.5 L Hematocrit 28.3 L Mean Corpuscular Volume 93.1 Mean Corpuscular Hemoglobin 31.3 Mean Corpuscular Hemoglobin Concent 33.6 Red Cell Distribution Width 13.5 Platelet Count 176 Mean Platelet Volume 9.1 Neutrophils % 83.7 H Lymphocytes % 6.6 L Monocytes % 8.2 Eosinophils % 0.3 Basophils % 0.2 Nucleated Red Blood Cells % 0.0 Neutrophils # 16.6 H Lymphocytes # 1.3 Monocytes # 1.6 H Eosinophils # 0.1 Basophils # 0.0 Nucleated Red Blood Cells # 0.0 Bedside Glucose 118 147 Sodium Level 132 L Potassium Level 4.2 Chloride Level 97 Carbon Dioxide Level 32 H Anion Gap 7 L Blood Urea Nitrogen 7 Creatinine 0.35 L Glucose Level 117 Calcium Level 8.3 L Test 04/25/17 05:21 04/25/17 07:00 04/25/17 08:18 04/25/17 11:50 Bedside Glucose 109 161 152 Blood Gas Specimen Source Blood arterial Arterial Blood Date Drawn 04/25/2017 8:30:33 AM Arterial Blood pH (Temp corrected) 7.463 H Arterial Blood pCO2 (Temp correct) 46.1 H Arterial Blood pO2 (Temp corrected) 88.8 Arterial Blood HCO3 32.3 H Arterial Blood Base Excess 7.7 H Arterial Blood Oxygen Saturation 97.0 Ruben Test ACCEPTAB Arterial Blood Gas Puncture Site Right Radial Arterial Blood Carboxyhemoglobin 0.3 Arterial Blood Methemoglobin 0.3 Blood Gas A-a O2 Differential 179.6 H Oxyhemoglobin Percent 96.4 Total Hemoglobin 8.7 L Blood Gas Temperature 37.0 Blood Gas Modality MASK - SIMPLE FiO2 45.0 Blood Gas Notified Whom DT Blood Gas Notified Time 04/25/2017 8:55:54 AM Medications Medications Current Medications Miscellaneous Information 1 ea NOTE XX ; Start 04/13/17 at 21:30 Glucose (Glutose) 15 gm Q15M PRN PO DECREASED GLUCOSE; Start 04/13/17 at 21:30 Glucose (Glutose) 22.5 gm Q15M PRN PO DECREASED GLUCOSE; Start 04/13/17 at 21: 30 Dextrose (D50w Syringe) 25 ml Q15M PRN IV DECREASED GLUCOSE; Start 04/13/17 at 21:30 Dextrose (D50w Syringe) 50 ml Q15M PRN IV DECREASED GLUCOSE; Start 04/13/17 at 21:30 Glucagon (Glucagen) 1 mg Q15M PRN IM DECREASED GLUCOSE; Start 04/13/17 at 21:30 Glucose (Glutose) 15 gm Q15M PRN BUCCAL DECREASED GLUCOSE; Start 04/13/17 at 21 :30 Ondansetron HCl (Zofran Inj) 4 mg Q6 PRN IV NAUSEA AND/OR VOMITING Last administered on 04/24/17 04:19; Admin Dose 4 MG; Start 04/13/17 at 21:30 Guaifenesin/ Dextromethorphan (Robitussin Dm Liquid Cup) 5 ml Q4H PRN PO COUGH Last administered on 04/19/17 05:09; Admin Dose 5 ML; Start 04/15/17 at 16:30 Pantoprazole (Protonix Tab) 40 mg DAILY@06 PO Last administered on 04/25/17 05 :46; Admin Dose 40 MG; Start 04/17/17 at 06:00 Acetaminophen (Tylenol Tab) 500 mg Q6H PRN PO PAIN AND OR ELEVATED TEMP Last administered on 04/24/17 19:35; Admin Dose 500 MG; Start 04/17/17 at 03:00 Magnesium Hydroxide 30 ml 30 ml DAILY PRN PO CONSTIPATION; Start 04/17/17 at 11 :30 Ampicillin Sodium/ Sulbactam Sodium (Unasyn 1.5gm/NS (Pmx)) 50 ml @ 100 mls/hr Q6 IVPB Last administered on 04/25/17 13:41; Admin Dose 100 MLS/HR; Start at 18:00 Furosemide (Lasix) 20 mg DAILY@06 IV Last administered on 04/23/17 05:44; Admin Dose 20 MG; Start 04/18/17 at 18:30; Status Future Hold Fentanyl (Duragesic 12 Mcg/Hr Patch) 1 patch Q72H TRANSDERM Last administered on 04/25/17 05:45; Admin Dose 1 PATCH; Start 04/22/17 at 05:30 Morphine Sulfate (morphine) 1 mg Q4H PRN IV SEVERE PAIN LEVEL 7-10 Last administered on 04/25/17 10:19; Admin Dose 1 MG; Start 04/22/17 at 17:30 Metoclopramide HCl (Reglan) 10 mg Q6H PRN IV NAUSEA Last administered on 21:09; Admin Dose 10 MG; Start 04/22/17 at 21:00 Enoxaparin Sodium (Lovenox) 30 mg DAILY SC Last administered on 04/25/17 09:09 ; Admin Dose 30 MG; Start 04/23/17 at 20:30 Acetaminophen (Tylenol Supp) 650 mg Q6H PRN [place] FEVER GREATER THAN 100.6; Start 04/23/17 at 20:30 Acetaminophen (Tylenol Tab) 650 mg Q6H PRN PO PAIN AND OR ELEVATED TEMP; Start 04/23/17 at 20:30 Lactobacillus Acidophilus/ Rhamnosus (Culturelle) 1 cap BID PO Last administered on 9/23/17at 08:58; Admin Dose 1 CAP; Start 04/24/17 at 11:30 Diagnostic Test (Pha) 1 ea 1 ea 02 XX ; Start 04/26/17 at 02:00 Sodium Chloride (NS) 1,000 ml @ 70 mls/hr [id number] IV Last administered on 04/25t 13:41; Admin Dose 70 MLS/HR; Start 04/25/17 at 13:30; Stop 04/26/17 at 18: 04 CARMITA FUNES MD Apr 25, 2017 13:57
--- NOTE | 2017-04-25 14:05 | PN ---
Date/Time of Note Date/Time of Note DATE: 04/25/17 TIME: 14:00 Assessment/Plan VTE Prophylaxis VTE Prophylaxis Intervention: SCD's Lines/Catheters IV [facility]ter [facility] (from [facility]): Peripheral IV Urinary Cath still in place: No Assessment/Plan Assessment/Plan - Bilateral pleural effusions right more than left, status post right thoracentesis 04/20. S/p right chest tube insertion on 04/[address] Jackson, vascular surgery. - Acute respiratory failure secondary to #1, Dr. Damico is following in pulmonology consultation continue oxygen oxygen supplementation - patient feels better - Severe sepsis 2/2 to liver abscess. Continue antibiotics per ID. Dr. Diana is following infection disease consultation - Liver abscess unchanged per recent CT, s/p CT guided drainage 04/15/2017, s/p CT guided percutaneous drainage of liver abscess 04/23. - per sx - plan for pig tail place placement on Thursday per surgery - Normocytic anemia requiring blood transfusion - Hx of rectal CA s/p Low anterior resection 08/29/2016 - Mild Hyponatremia- nephrology follows Further recommendations based on clinical course. Total critical care time spent 30 mins. Plan of care discussed with Dr. Dior Subjective 24 Hr Interval Summary Free Text/Dictation remains on supplement oxygen, feels better,- plan for pig tail place placement on Thursday per surgery dw staff ENT: no complaints Respiratory: no complaints Cardiovascular: no complaints Gastrointestinal: no complaints Genitourinary: no complaints Musculoskeletal: no complaints Exam/Review of Systems Vital Signs Vitals Vital Signs Date Time Temp Pulse Resp B/P Pulse Ox O2 Delivery O2 Flow Rate FiO2 04/25/17 12:00 98.4 105 46 104/60 96 Mask 6.0 Intake and Output 04/24/17 04/24/17 04/25/17 14:59 22:59 06:59 Intake Total 480 ml 440 ml 50 ml Output Total 260 ml 540 ml 500 ml Balance 220 ml -100 ml -450 ml Exam Constitutional: alert, oriented Respiratory: diminished breath sounds Cardiovascular: nl pulses, regular rate and rhythm Gastrointestinal: other (pain -ruq, sp surgery), soft Musculoskeletal: nl extremities to inspection Extremities: normal pulses 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: 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, nl speech Results Result Diagram: 04/24/17 1510 04/25/17 0520 Results 24 hrs Laboratory Tests Test 04/24/17 15:10 9/22/17 16:37 04/24/17 20:37 04/25/17 05:20 White Blood Count 19.8 H Red Blood Count 3.04 L Hemoglobin 9.5 L Hematocrit 28.3 L Mean Corpuscular Volume 93.1 Mean Corpuscular Hemoglobin 31.3 Mean Corpuscular Hemoglobin Concent 33.6 Red Cell Distribution Width 13.5 Platelet Count 176 Mean Platelet Volume 9.1 Neutrophils % 83.7 H Lymphocytes % 6.6 L Monocytes % 8.2 Eosinophils % 0.3 Basophils % 0.2 Nucleated Red Blood Cells % 0.0 Neutrophils # 16.6 H Lymphocytes # 1.3 Monocytes # 1.6 H Eosinophils # 0.1 Basophils # 0.0 Nucleated Red Blood Cells # 0.0 Bedside Glucose 118 147 Sodium Level 132 L Potassium Level 4.2 Chloride Level 97 Carbon Dioxide Level 32 H Anion Gap 7 L Blood Urea Nitrogen 7 Creatinine 0.35 L Glucose Level 117 Calcium Level 8.3 L Test 04/25/17 05:21 04/25/17 07:00 04/25/17 08:18 04/25/17 11:50 Bedside Glucose 109 161 152 Blood Gas Specimen Source Blood arterial Arterial Blood Date Drawn 04/25/2017 8:30:33 AM Arterial Blood pH (Temp corrected) 7.463 H Arterial Blood pCO2 (Temp correct) 46.1 H Arterial Blood pO2 (Temp corrected) 88.8 Arterial Blood HCO3 32.3 H Arterial Blood Base Excess 7.7 H Arterial Blood Oxygen Saturation 97.0 Ruben Test ACCEPTAB Arterial Blood Gas Puncture Site Right Radial Arterial Blood Carboxyhemoglobin 0.3 Arterial Blood Methemoglobin 0.3 Blood Gas A-a O2 Differential 179.6 H Oxyhemoglobin Percent 96.4 Total Hemoglobin 8.7 L Blood Gas Temperature 37.0 Blood Gas Modality MASK - SIMPLE FiO2 45.0 Blood Gas Notified Whom DT Blood Gas Notified Time 04/25/2017 8:55:54 AM Medications Medications Current Medications Miscellaneous Information 1 ea NOTE XX ; Start 04/13/17 at 21:30 Glucose (Glutose) 15 gm Q15M PRN PO DECREASED GLUCOSE; Start 04/13/17 at 21:30 Glucose (Glutose) 22.5 gm Q15M PRN PO DECREASED GLUCOSE; Start 04/13/17 at 21: 30 Dextrose (D50w Syringe) 25 ml Q15M PRN IV DECREASED GLUCOSE; Start 04/13/17 at 21:30 Dextrose (D50w Syringe) 50 ml Q15M PRN IV DECREASED GLUCOSE; Start 04/13/17 at 21:30 Glucagon (Glucagen) 1 mg Q15M PRN IM DECREASED GLUCOSE; Start 04/13/17 at 21:30 Glucose (Glutose) 15 gm Q15M PRN BUCCAL DECREASED GLUCOSE; Start 04/13/17 at 21 :30 Ondansetron HCl (Zofran Inj) 4 mg Q6 PRN IV NAUSEA AND/OR VOMITING Last administered on 04/24/17 04:19; Admin Dose 4 MG; Start 04/13/17 at 21:30 Guaifenesin/ Dextromethorphan (Robitussin Dm Liquid Cup) 5 ml Q4H PRN PO COUGH Last administered on 04/19/17 05:09; Admin Dose 5 ML; Start 04/15/17 at 16:30 Pantoprazole (Protonix Tab) 40 mg DAILY@06 PO Last administered on 04/25/17 05 :46; Admin Dose 40 MG; Start 04/17/17 at 06:00 Acetaminophen (Tylenol Tab) 500 mg Q6H PRN PO PAIN AND OR ELEVATED TEMP Last administered on 04/24/17 19:35; Admin Dose 500 MG; Start 04/17/17 at 03:00 Magnesium Hydroxide 30 ml 30 ml DAILY PRN PO CONSTIPATION; Start 04/17/17 at 11 :30 Ampicillin Sodium/ Sulbactam Sodium (Unasyn 1.5gm/NS (Pmx)) 50 ml @ 100 mls/hr Q6 IVPB Last administered on 04/25/17 13:41; Admin Dose 100 MLS/HR; Start at 18:00 Furosemide (Lasix) 20 mg DAILY@06 IV Last administered on 04/23/17 05:44; Admin Dose 20 MG; Start 04/18/17 at 18:30; Status Future Hold Fentanyl (Duragesic 12 Mcg/Hr Patch) 1 patch Q72H TRANSDERM Last administered on 04/25/17 05:45; Admin Dose 1 PATCH; Start 04/22/17 at 05:30 Morphine Sulfate (morphine) 1 mg Q4H PRN IV SEVERE PAIN LEVEL 7-10 Last administered on 04/25/17 10:19; Admin Dose 1 MG; Start 04/22/17 at 17:30 Metoclopramide HCl (Reglan) 10 mg Q6H PRN IV NAUSEA Last administered on 21:09; Admin Dose 10 MG; Start 04/22/17 at 21:00 Enoxaparin Sodium (Lovenox) 30 mg DAILY SC Last administered on 04/25/17 09:09 ; Admin Dose 30 MG; Start 04/23/17 at 20:30 Acetaminophen (Tylenol Supp) 650 mg Q6H PRN [place] FEVER GREATER THAN 100.6; Start 04/23/17 at 20:30 Acetaminophen (Tylenol Tab) 650 mg Q6H PRN PO PAIN AND OR ELEVATED TEMP; Start 04/23/17 at 20:30 Lactobacillus Acidophilus/ Rhamnosus (Culturelle) 1 cap BID PO Last administered on 04/25/17 08:58; Admin Dose 1 CAP; Start 04/24/17 at 11:30 Diagnostic Test (Pha) 1 ea 1 ea 02 XX ; Start 04/26/17 at 02:00 Sodium Chloride (NS) 1,000 ml @ 70 mls/hr [id number] IV Last administered on 04/25 13:41; Admin Dose 70 MLS/HR; Start 04/25/17 at 13:30; Stop 04/26/17 at 18: 04 MESHA VELASQUEZ Apr 25, 2017 14:05
--- NOTE | 2017-04-25 18:06 | CONS ---
Date/Time of Note Date/Time of Note DATE: 04/25/17 TIME: 18:05 Assessment/Plan Assessment/Plan Chief Complaint/Hosp Course Problems: Additional Assessment/Plan 1. Acute hyponatremia 2/2 Hypovolemic hyponatremia 2. sepsis due to liver abscess 3. Hepatic abscess oN CT scan s/p CT guided drainage on 04/15/17 and 04/23/17 4. Acute transaminitis 5. h/o Colon CA s/p previous Surgery 6. Hypokalemia Plan : pt transferred to ICU, BP stable, IV abx as per iD. Cr normal, Na 132- will give NS 1 liter IV x1 then stop Cr stable, will follow up Consultation Date/Type/Reason Admit Date/Time Apr 13, 2017 at 19:51 Initial Consult Date 04/13/17 Type of Consultation: NEPHROLOGY Referring Provider: DARREL BURT MD 24 HR Interval Summary Free Text/Dictation Na impoved but still low, BP stable,afebrile Exam/Review of Systems Vital Signs Vitals Vital Signs Date Time Temp Pulse Resp B/P Pulse Ox O2 Delivery O2 Flow Rate FiO2 04/25/17 18:00 128 28 150/81 92 Mask 6.0 04/25/17 16:00 98.5 Intake and Output 04/24/17 04/24/17 04/25/17 15:00 23:00 07:00 Intake Total 480 ml 440 ml 100 ml Output Total 260 ml 540 ml 500 ml Balance 220 ml -100 ml -400 ml Results Result Diagram: 04/24/17 1510 04/25/17 0520 Results 24 hrs Laboratory Tests Test 04/24/17 20:37 04/25/17 05:20 04/25/17 05:21 04/25/17 07:00 Bedside Glucose 147 109 Sodium Level 132 L Potassium Level 4.2 Chloride Level 97 Carbon Dioxide Level 32 H Anion Gap 7 L Blood Urea Nitrogen 7 Creatinine 0.35 L Glucose Level 117 Calcium Level 8.3 L Blood Gas Specimen Source Blood arterial Arterial Blood Date Drawn 04/25/2017 8:30:33 AM Arterial Blood pH (Temp corrected) 7.463 H Arterial Blood pCO2 (Temp correct) 46.1 H Arterial Blood pO2 (Temp corrected) 88.8 Arterial Blood HCO3 32.3 H Arterial Blood Base Excess 7.7 H Arterial Blood Oxygen Saturation 97.0 Ruben Test ACCEPTAB Arterial Blood Gas Puncture Site Right Radial Arterial Blood Carboxyhemoglobin 0.3 Arterial Blood Methemoglobin 0.3 Blood Gas A-a O2 Differential 179.6 H Oxyhemoglobin Percent 96.4 Total Hemoglobin 8.7 L Blood Gas Temperature 37.0 Blood Gas Modality MASK - SIMPLE FiO2 45.0 Blood Gas Notified Whom DT Blood Gas Notified Time 04/25/2017 8:55:54 AM Test 04/25/17 08:18 04/25/17 11:50 04/25/17 17:27 Bedside Glucose 161 152 106 Medications Medications Current Medications Miscellaneous Information 1 ea NOTE XX ; Start 04/13/17 at 21:30 Glucose (Glutose) 15 gm Q15M PRN PO DECREASED GLUCOSE; Start 04/13/17 at 21:30 Glucose (Glutose) 22.5 gm Q15M PRN PO DECREASED GLUCOSE; Start 04/13/17 at 21: 30 Dextrose (D50w Syringe) 25 ml Q15M PRN IV DECREASED GLUCOSE; Start 04/13/17 at 21:30 Dextrose (D50w Syringe) 50 ml Q15M PRN IV DECREASED GLUCOSE; Start 04/13/17 at 21:30 Glucagon (Glucagen) 1 mg Q15M PRN IM DECREASED GLUCOSE; Start 04/13/17 at 21:30 Glucose (Glutose) 15 gm Q15M PRN BUCCAL DECREASED GLUCOSE; Start 04/13/17 at 21 :30 Ondansetron HCl (Zofran Inj) 4 mg Q6 PRN IV NAUSEA AND/OR VOMITING Last administered on 04/24/17 04:19; Admin Dose 4 MG; Start 04/13/17 at 21:30 Guaifenesin/ Dextromethorphan (Robitussin Dm Liquid Cup) 5 ml Q4H PRN PO COUGH Last administered on 04/19/17 05:09; Admin Dose 5 ML; Start 04/15/17 at 16:30 Pantoprazole (Protonix Tab) 40 mg DAILY@06 PO Last administered on 04/25/17 05 :46; Admin Dose 40 MG; Start 04/17/17 at 06:00 Acetaminophen (Tylenol Tab) 500 mg Q6H PRN PO PAIN AND OR ELEVATED TEMP Last administered on 04/24/17 19:35; Admin Dose 500 MG; Start 04/17/17 at 03:00 Magnesium Hydroxide 30 ml 30 ml DAILY PRN PO CONSTIPATION; Start 04/17/17 at 11 :30 Ampicillin Sodium/ Sulbactam Sodium (Unasyn 1.5gm/NS (Pmx)) 50 ml @ 100 mls/hr Q6 IVPB Last administered on 04/25/17 17:29; Admin Dose 100 MLS/HR; Start at 18:00 Furosemide (Lasix) 20 mg DAILY@06 IV Last administered on 04/23/17 05:44; Admin Dose 20 MG; Start 04/18/17 at 18:30; Status Future Hold Fentanyl (Duragesic 12 Mcg/Hr Patch) 1 patch Q72H TRANSDERM Last administered on 04/25/17 05:45; Admin Dose 1 PATCH; Start 04/22/17 at 05:30 Morphine Sulfate (morphine) 1 mg Q4H PRN IV SEVERE PAIN LEVEL 7-10 Last administered on 04/25/17 10:19; Admin Dose 1 MG; Start 04/22/17 at 17:30 Metoclopramide HCl (Reglan) 10 mg Q6H PRN IV NAUSEA Last administered on 21:09; Admin Dose 10 MG; Start 04/22/17 at 21:00 Enoxaparin Sodium (Lovenox) 30 mg DAILY SC Last administered on 04/25/17 09:09 ; Admin Dose 30 MG; Start 04/23/17 at 20:30 Acetaminophen (Tylenol Supp) 650 mg Q6H PRN [place] FEVER GREATER THAN 100.6; Start 04/23/17 at 20:30 Acetaminophen (Tylenol Tab) 650 mg Q6H PRN PO PAIN AND OR ELEVATED TEMP; Start 04/23/17 at 20:30 Lactobacillus Acidophilus/ Rhamnosus (Culturelle) 1 cap BID PO Last administered on 04/25/17 08:58; Admin Dose 1 CAP; Start 04/24/17 at 11:30 Diagnostic Test (Pha) 1 ea 1 ea 02 XX ; Start 04/26/17 at 02:00 Sodium Chloride (NS) 1,000 ml @ 70 mls/hr [id number] IV Last administered on 04/25 13:41; Admin Dose 70 MLS/HR; Start 04/25/17 at 13:30; Stop 04/26/17 at 18: 04 NGOC GARZA MD Apr 25, 2017 18:06
--- NOTE | 2017-04-25 18:19 | CONS ---
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 - S/p Right 32-[place] chest tube placement on 04/22/2017 - Hypotension - resolved with IVF - Normocytic anemia requiring blood transfusion - Coagulopathy - improved - Transaminitis - slowly improving - Hyponatremia on admission - CoNS in urine culture with trivial pyuria, likely contaminant; pt asymptomatic - Hx of rectal CA s/p Low anterior resection 08/29/2016 - Severe protein calorie malnutrition Recommendations: - lactic acid and procalcitonin now - continue Unasyn (04/18/2017-); s/p linezolid and pip/tazo - monitor closely - low threshold to broaden abx; Linezolid/caspo/micafungin - pending: wound cx from 04/23, repeat blood and urine cx from 04/23 - repeat imaging prior to antibiotic cessation to ensure resolution Problems: Consultation Date/Type/Reason Admit Date/Time Apr 13, 2017 at 19:51 Initial Consult Date 04/13/17 Type of Consultation: id Referring Provider: DARREL BURT MD Exam/Review of Systems Vital Signs Vitals Vital Signs Date Time Temp Pulse Resp B/P Pulse Ox O2 Delivery O2 Flow Rate FiO2 04/25/17 18:00 128 28 150/81 92 Mask 6.0 04/25/17 16:00 98.5 Intake and Output 04/24/17 04/24/17 04/25/17 15:00 23:00 07:00 Intake Total 480 ml 440 ml 100 ml Output Total 260 ml 540 ml 500 ml Balance 220 ml -100 ml -400 ml Results Result Diagram: 04/24/17 1510 04/25/17 0520 Results 24 hrs Laboratory Tests Test 04/24/17 20:37 04/25/17 05:20 04/25/17 05:21 04/25/17 07:00 Bedside Glucose 147 109 Sodium Level 132 L Potassium Level 4.2 Chloride Level 97 Carbon Dioxide Level 32 H Anion Gap 7 L Blood Urea Nitrogen 7 Creatinine 0.35 L Glucose Level 117 Calcium Level 8.3 L Blood Gas Specimen Source Blood arterial Arterial Blood Date Drawn 04/25/2017 8:30:33 AM Arterial Blood pH (Temp corrected) 7.463 H Arterial Blood pCO2 (Temp correct) 46.1 H Arterial Blood pO2 (Temp corrected) 88.8 Arterial Blood HCO3 32.3 H Arterial Blood Base Excess 7.7 H Arterial Blood Oxygen Saturation 97.0 Ruben Test ACCEPTAB Arterial Blood Gas Puncture Site Right Radial Arterial Blood Carboxyhemoglobin 0.3 Arterial Blood Methemoglobin 0.3 Blood Gas A-a O2 Differential 179.6 H Oxyhemoglobin Percent 96.4 Total Hemoglobin 8.7 L Blood Gas Temperature 37.0 Blood Gas Modality MASK - SIMPLE FiO2 45.0 Blood Gas Notified Whom DT Blood Gas Notified Time 04/25/2017 8:55:54 AM Test 04/25/17 08:18 04/25/17 11:50 04/25/17 17:27 Bedside Glucose 161 152 106 Medications Medications Current Medications Miscellaneous Information 1 ea NOTE XX ; Start 04/13/17 at 21:30 Glucose (Glutose) 15 gm Q15M PRN PO DECREASED GLUCOSE; Start 04/13/17 at 21:30 Glucose (Glutose) 22.5 gm Q15M PRN PO DECREASED GLUCOSE; Start 04/13/17 at 21: 30 Dextrose (D50w Syringe) 25 ml Q15M PRN IV DECREASED GLUCOSE; Start 04/13/17 at 21:30 Dextrose (D50w Syringe) 50 ml Q15M PRN IV DECREASED GLUCOSE; Start 04/13/17 at 21:30 Glucagon (Glucagen) 1 mg Q15M PRN IM DECREASED GLUCOSE; Start 04/13/17 at 21:30 Glucose (Glutose) 15 gm Q15M PRN BUCCAL DECREASED GLUCOSE; Start 04/13/17 at 21 :30 Ondansetron HCl (Zofran Inj) 4 mg Q6 PRN IV NAUSEA AND/OR VOMITING Last administered on 04/24/17t 04:19; Admin Dose 4 MG; Start 04/13/17 at 21:30 Guaifenesin/ Dextromethorphan (Robitussin Dm Liquid Cup) 5 ml Q4H PRN PO COUGH Last administered on 04/19/17 05:09; Admin Dose 5 ML; Start 04/15/17 at 16:30 Pantoprazole (Protonix Tab) 40 mg DAILY@06 PO Last administered on 04/25/17 05 :46; Admin Dose 40 MG; Start 04/17/17 at 06:00 Acetaminophen (Tylenol Tab) 500 mg Q6H PRN PO PAIN AND OR ELEVATED TEMP Last administered on 04/24/17 19:35; Admin Dose 500 MG; Start 04/17/17 at 03:00 Magnesium Hydroxide 30 ml 30 ml DAILY PRN PO CONSTIPATION; Start 04/17/17 at 11 :30 Ampicillin Sodium/ Sulbactam Sodium (Unasyn 1.5gm/NS (Pmx)) 50 ml @ 100 mls/hr Q6 IVPB Last administered on 04/25/17 17:29; Admin Dose 100 MLS/HR; Start at 18:00 Furosemide (Lasix) 20 mg DAILY@06 IV Last administered on 04/23/17 05:44; Admin Dose 20 MG; Start 04/18/17 at 18:30; Status Future Hold Fentanyl (Duragesic 12 Mcg/Hr Patch) 1 patch Q72H TRANSDERM Last administered on 04/25/17 05:45; Admin Dose 1 PATCH; Start 04/22/17 at 05:30 Morphine Sulfate (morphine) 1 mg Q4H PRN IV SEVERE PAIN LEVEL 7-10 Last administered on 04/25/17 10:19; Admin Dose 1 MG; Start 04/22/17 at 17:30 Metoclopramide HCl (Reglan) 10 mg Q6H PRN IV NAUSEA Last administered on 21:09; Admin Dose 10 MG; Start 04/22/17 at 21:00 Enoxaparin Sodium (Lovenox) 30 mg DAILY SC Last administered on 04/25/17 09:09 ; Admin Dose 30 MG; Start 04/23/17 at 20:30 Acetaminophen (Tylenol Supp) 650 mg Q6H PRN [place] FEVER GREATER THAN 100.6; Start 04/23/17 at 20:30 Acetaminophen (Tylenol Tab) 650 mg Q6H PRN PO PAIN AND OR ELEVATED TEMP; Start 04/23/17 at 20:30 Lactobacillus Acidophilus/ Rhamnosus (Culturelle) 1 cap BID PO Last administered on 04/25/17 08:58; Admin Dose 1 CAP; Start 04/24/17 at 11:30 Diagnostic Test (Pha) 1 ea 1 ea 02 XX ; Start 04/26/17 at 02:00 Sodium Chloride (NS) 1,000 ml @ 70 mls/hr [id number] IV Last administered on 04/25 13:41; Admin Dose 70 MLS/HR; Start 04/25/17 at 13:30; Stop 04/26/17 at 18: 04 CHIOMA ROGERS MD Apr 25, 2017 18:19
--- NOTE | 2017-04-25 18:33 | RADRPT ---
PROCEDURE: CT Chest without contrast. CLINICAL INDICATION: Right-sided pneumonia. Right pleural effusion. TECHNIQUE: Helical axial sections were obtained through the chest without intravenous contrast enh ancement. Coronal and sagittal reformatted images were obtained from the axial source images. Total exam DLP is 230.00 mGy-cm. CTDIvol is 6.81 mGy. One or more of the following dose reduction tech niques were used: Automated exposure control, adjustment of the mA and/or kV according to patient si ze, use of iterative reconstruction technique. COMPARISON: Chest radiograph dated earlier the same day. FINDINGS: There is a right chest tube noted with the the tip in the mid chest. A large right pleural effusion is noted posteriorly and posterior to the chest tube. There is air space disease throughout the righ t lower lobe and left lower lobe consistent with atelectasis or pneumonia with right worse than left . There is a small left pleural effusion. There is no pericardial effusion. The heart size is normal . There is no pulmonary nodule or mass lesion. There is no mediastinal or hilar lymphadenopathy or mass. There is no axillary, supraclavicular, or internal mammary lymphadenopathy. The thoracic aorta is not dilated. Images through the upper abdomen once again demonstrate the drainage catheter in the multiloculated liver abscess. There is no fracture or lytic lesion. There are mild degenerative changes of the spine. IMPRESSION: 1. Right chest tube which is not in the region of the large right pleural effusion. 2. Bilateral lower lobe atelectasis or pneumonia with right worse than left. 3. Small left pleural effusion. 4. Drainage catheter in the multiloculated liver abscess. 5. Degenerative changes of the spine. RPTAT: QQ .Logan Decker MD, MD Date Time Electronically viewed and signed by .Logan Decker MD, on 04/25/2017 18:32 .R/
[2017-04-25] MEDS: ONDANSETRON 4 MG INJ IV PRN (19:41)
[2017-04-26] VITALS (12 sets, daily range): BP systolic 100–122; BP diastolic 57–65; PULSE 95–103; RESP 15–18
[2017-04-26] MEDS: AMPICILLIN/SULB 1.5GM/NS (PMX) 50 ML IVPB SCH ×4 (00:32→17:20)
[2017-04-26] MEDS: ACCU-CHEK XX SCH (02:00)
[2017-04-26] MEDS: PANTOPRAZOLE (EC) 40 MG TAB PO SCH (05:39)
[2017-04-26] MEDS: SOD CHLORIDE 0.9% 1,000 ML IV SCH (05:39)
[2017-04-26] MEDS: Insulin NOVOLOG SS MILD Algorithm (SS with meals and bedtime) SC SCH ×4 (07:30→20:54)
[2017-04-26] MEDS: LACTOBACILLUS RHAMNOSUS CAP PO SCH (08:12)
[2017-04-26] MEDS: ENOXAPARIN 30 MG/0.3 ML SYG SC SCH (08:15)
[2017-04-26 09:57] LABS: BASOPHILS % 0.1 % (0.0-2.0); EOSINOPHILS # 0.1 10^3/ul (0.0-0.5); EOSINOPHILS % 0.3 % (0.0-7.0); HEMATOCRIT 24.6 % (37.0-47.0); HEMOGLOBIN 8.3 g/dl (12.0-16.0); LYMPHOCYTES # 1.1 10^3/ul (0.8-2.9); LYMPHOCYTES % 7.3 % (15.0-51.0); MEAN CORPUSCULAR HEMOGLOBIN 31.2 pg (29.0-33.0); MEAN CORPUSCULAR HGB CONC 33.7 g/dl (32.0-37.0); MEAN CORPUSCULAR VOLUME 92.5 fl (82.0-101.0); MEAN PLATELET VOLUME 8.9 fl (7.4-10.4); MONOCYTE # 1.2 10^3/ul (0.3-0.9); MONOCYTES % 7.6 % (0.0-11.0); NEUTROPHIL # 12.7 10^3/ul (1.6-7.5); NEUTROPHILS % 83.9 % (39.0-77.0); PLATELET COUNT 230 10^3/UL (140-415); RED BLOOD COUNT 2.66 10^6/ul (4.20-5.40); RED CELL DISTRIBUTION WIDTH 13.7 % (11.5-14.5); WHITE BLOOD COUNT 15.1 10^3/ul (4.8-10.8)
[2017-04-26 10:16] LABS: CALCIUM 8.3 mg/dl (8.4-10.2); CREATININE 0.38 mg/dl (0.44-1.00); POTASSIUM 4.1 mmol/L (3.5-5.1)
--- NOTE | 2017-04-26 12:01 | CONS ---
Date/Time of Note Date/Time of Note DATE: 04/26/17 TIME: 11:59 Assessment/Plan Assessment/Plan Additional Assessment/Plan CT chest was reviewed from yesterday which is showing large bilateral pleural effusions, more pronounced in the right lung. Chest tube is not in the appropriate position to drain right pleural effusion. Assessment and recommendations; 1. Patient admitted with liver abscess, status post drainage procedure. 2. Bilateral pleural effusions, more pronounced in right lung. Status post right-sided chest tube placement which is not appropriately placed therefore not able to drain pleural fluid. 3. 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 Obtain ultrasound-guided right thoracentesis. Consultation Date/Type/Reason Admit Date/Time Apr 13, 2017 at 19:51 Initial Consult Date 04/15/17 Type of Consultation: Pulmonary Referring Provider: DRAREL BURT MD 24 HR Interval Summary Free Text/Dictation Patient's condition stable. Remains awake and alert. Denies any shortness of breath, chest pain, nausea or vomiting. General exam; elderly woman, awake and alert. Currently in no distress. Exam/Review of Systems Vital Signs Vitals Vital Signs Date Time Temp Pulse Resp B/P Pulse Ox O2 Delivery O2 Flow Rate FiO2 04/26/17 11:38 98.2 100 16 118/60 96 04/26/17 08:00 Simple Mask 6.0 Intake and Output 04/25/17 04/25/17 04/26/17 15:00 23:00 07:00 Intake Total 597 ml 225 ml 200 ml Output Total 800 ml 300 ml 870 ml Balance -203 ml -75 ml -670 ml Exam HEENT exam; supple neck, no JVD. No lymphadenopathy. Midline trachea. No thyromegaly. Neck Chest exam; diminished breath sounds right lung. Right-sided chest tube in place. Left lung is clear to auscultation. In the upper lobes with diminished breath sounds in left lower lobe area. S1-S2 audible, no murmurs. Regular rhythm. Abdomen exam; soft, mild right upper quadrant tenderness is present. Right upper quadrant drain in place. Bowel sounds audible. Extremity exam; no edema. FA[employer] exam; no focal deficit. Results Result Diagram: 04/26/17 0940 04/26/17 0940 Results 24 hrs Laboratory Tests Test 04/25/17 17:27 04/25/17 19:55 04/25/17 20:48 04/26/17 08:11 Bedside Glucose 106 154 105 Lactic Acid Level 0.7 Test 04/26/17 09:40 White Blood Count 15.1 #H Red Blood Count 2.66 L Hemoglobin 8.3 L Hematocrit 24.6 L Mean Corpuscular Volume 92.5 Mean Corpuscular Hemoglobin 31.2 Mean Corpuscular Hemoglobin Concent 33.7 Red Cell Distribution Width 13.7 Platelet Count 230 # Mean Platelet Volume 8.9 Neutrophils % 83.9 H Lymphocytes % 7.3 L Monocytes % 7.6 Eosinophils % 0.3 Basophils % 0.1 Nucleated Red Blood Cells % 0.0 Neutrophils # 12.7 H Lymphocytes # 1.1 Monocytes # 1.2 H Eosinophils # 0.1 Basophils # 0.0 Nucleated Red Blood Cells # 0.0 Sodium Level 129 L Potassium Level 4.1 Chloride Level 96 L Carbon Dioxide Level 32 H Anion Gap 5 L Blood Urea Nitrogen 6 L Creatinine 0.38 L Glucose Level 147 Calcium Level 8.3 L Medications Medications Current Medications Miscellaneous Information 1 ea NOTE XX ; Start 04/13/17 at 21:30 Glucose (Glutose) 15 gm Q15M PRN PO DECREASED GLUCOSE; Start 04/13/17 at 21:30 Glucose (Glutose) 22.5 gm Q15M PRN PO DECREASED GLUCOSE; Start 04/13/17 at 21: 30 Dextrose (D50w Syringe) 25 ml Q15M PRN IV DECREASED GLUCOSE; Start 04/13/17 at 21:30 Dextrose (D50w Syringe) 50 ml Q15M PRN IV DECREASED GLUCOSE; Start 04/13/17 at 21:30 Glucagon (Glucagen) 1 mg Q15M PRN IM DECREASED GLUCOSE; Start 04/13/17 at 21:30 Glucose (Glutose) 15 gm Q15M PRN BUCCAL DECREASED GLUCOSE; Start 04/13/17 at 21 :30 Ondansetron HCl (Zofran Inj) 4 mg Q6 PRN IV NAUSEA AND/OR VOMITING Last administered on 04/25/17 19:41; Admin Dose 4 MG; Start 04/13/17 at 21:30 Guaifenesin/ Dextromethorphan (Robitussin Dm Liquid Cup) 5 ml Q4H PRN PO COUGH Last administered on 04/19/17 05:09; Admin Dose 5 ML; Start 04/15/17 at 16:30 Pantoprazole (Protonix Tab) 40 mg DAILY@06 PO Last administered on 04/26/17 05 :39; Admin Dose 40 MG; Start 04/17/17 at 06:00 Acetaminophen (Tylenol Tab) 500 mg Q6H PRN PO PAIN AND OR ELEVATED TEMP Last administered on 04/24/17 19:35; Admin Dose 500 MG; Start 04/17/17 at 03:00 Magnesium Hydroxide 30 ml 30 ml DAILY PRN PO CONSTIPATION; Start 04/17/17 at 11 :30 Ampicillin Sodium/ Sulbactam Sodium (Unasyn 1.5gm/NS (Pmx)) 50 ml @ 100 mls/hr Q6 IVPB Last administered on 04/26/17 05:40; Admin Dose 100 MLS/HR; Start at 18:00 Furosemide (Lasix) 20 mg DAILY@06 IV Last administered on 04/23/17 05:44; Admin Dose 20 MG; Start 04/18/17 at 18:30; Status Future Hold Fentanyl (Duragesic 12 Mcg/Hr Patch) 1 patch Q72H TRANSDERM Last administered on 04/25/17 05:45; Admin Dose 1 PATCH; Start 04/22/17 at 05:30 Morphine Sulfate (morphine) 1 mg Q4H PRN IV SEVERE PAIN LEVEL 7-10 Last administered on 04/25/17 19:38; Admin Dose 1 MG; Start 04/22/17 at 17:30 Metoclopramide HCl (Reglan) 10 mg Q6H PRN IV NAUSEA Last administered on 21:09; Admin Dose 10 MG; Start 04/22/17 at 21:00 Enoxaparin Sodium (Lovenox) 30 mg DAILY SC Last administered on 04/26/17 08:15 ; Admin Dose 30 MG; Start 04/23/17 at 20:30 Acetaminophen (Tylenol Supp) 650 mg Q6H PRN [place] FEVER GREATER THAN 100.6; Start 04/23/17 at 20:30 Acetaminophen (Tylenol Tab) 650 mg Q6H PRN PO PAIN AND OR ELEVATED TEMP; Start 04/23/17 at 20:30 Lactobacillus Acidophilus/ Rhamnosus (Culturelle) 1 cap BID PO Last administered on 04/26/17 08:12; Admin Dose 1 CAP; Start 04/24/17 at 11:30 Diagnostic Test (Pha) 1 ea 1 ea 02 XX ; Start 04/26/17 at 02:00 Sodium Chloride (NS) 1,000 ml @ 70 mls/hr [id number] IV Last administered on 04/26 05:39; Admin Dose 70 MLS/HR; Start 04/25/17 at 13:30; Stop 04/26/17 at 18: 04 LINDA GARCIA Apr 26, 2017 12:01
--- NOTE | 2017-04-26 13:47 | CONS ---
Date/Time of Note Date/Time of Note DATE: 04/26/17 TIME: 13:45 Assessment/Plan Assessment/Plan Chief Complaint/Hosp Course Problems: Additional Assessment/Plan 1. Acute hyponatremia 2/2 Hypovolemic hyponatremia 2. sepsis due to liver abscess 3. Hepatic abscess oN CT scan s/p CT guided drainage on 04/15/17 and 04/23/17 4. Acute transaminitis 5. h/o Colon CA s/p previous Surgery 6. Hypokalemia 7. Hyponatremia Plan : pt transferred to Telemetry, toleratign po diet, Na 129,s/p 1liter NS- no more iVF today, will follow up on Na level in AM labs Cr stable will follow up Consultation Date/Type/Reason Admit Date/Time Apr 13, 2017 at 19:51 Initial Consult Date 04/13/17 Type of Consultation: NEPHROLOGY Referring Provider: DARREL BURT MD 24 HR Interval Summary Free Text/Dictation Na 129, s/p 1 liter of IVF , tolerating po diet Exam/Review of Systems Vital Signs Vitals Vital Signs Date Time Temp Pulse Resp B/P Pulse Ox O2 Delivery O2 Flow Rate FiO2 04/26/17 12:00 98 04/26/17 11:38 98.2 16 118/60 96 04/26/17 08:00 Simple Mask 6.0 Intake and Output 04/25/17 04/25/17 04/26/17 15:00 23:00 07:00 Intake Total 597 ml 225 ml 200 ml Output Total 800 ml 300 ml 870 ml Balance -203 ml -75 ml -670 ml Results Result Diagram: 04/26/17 0940 04/26/17 0940 Results 24 hrs Laboratory Tests Test 04/25/17 17:27 04/25/17 19:55 04/25/17 20:48 04/26/17 08:11 Bedside Glucose 106 154 105 Lactic Acid Level 0.7 Test 04/26/17 09:40 04/26/17 12:12 White Blood Count 15.1 #H Red Blood Count 2.66 L Hemoglobin 8.3 L Hematocrit 24.6 L Mean Corpuscular Volume 92.5 Mean Corpuscular Hemoglobin 31.2 Mean Corpuscular Hemoglobin Concent 33.7 Red Cell Distribution Width 13.7 Platelet Count 230 # Mean Platelet Volume 8.9 Neutrophils % 83.9 H Lymphocytes % 7.3 L Monocytes % 7.6 Eosinophils % 0.3 Basophils % 0.1 Nucleated Red Blood Cells % 0.0 Neutrophils # 12.7 H Lymphocytes # 1.1 Monocytes # 1.2 H Eosinophils # 0.1 Basophils # 0.0 Nucleated Red Blood Cells # 0.0 Sodium Level 129 L Potassium Level 4.1 Chloride Level 96 L Carbon Dioxide Level 32 H Anion Gap 5 L Blood Urea Nitrogen 6 L Creatinine 0.38 L Glucose Level 147 Calcium Level 8.3 L Bedside Glucose 144 Medications Medications Current Medications Miscellaneous Information 1 ea NOTE XX ; Start 04/13/17 at 21:30 Glucose (Glutose) 15 gm Q15M PRN PO DECREASED GLUCOSE; Start 04/13/17 at 21:30 Glucose (Glutose) 22.5 gm Q15M PRN PO DECREASED GLUCOSE; Start 04/13/17 at 21: 30 Dextrose (D50w Syringe) 25 ml Q15M PRN IV DECREASED GLUCOSE; Start 04/13/17 at 21:30 Dextrose (D50w Syringe) 50 ml Q15M PRN IV DECREASED GLUCOSE; Start 04/13/17 at 21:30 Glucagon (Glucagen) 1 mg Q15M PRN IM DECREASED GLUCOSE; Start 04/13/17 at 21:30 Glucose (Glutose) 15 gm Q15M PRN BUCCAL DECREASED GLUCOSE; Start 04/13/17 at 21 :30 Ondansetron HCl (Zofran Inj) 4 mg Q6 PRN IV NAUSEA AND/OR VOMITING Last administered on 04/25/17 19:41; Admin Dose 4 MG; Start 04/13/17 at 21:30 Guaifenesin/ Dextromethorphan (Robitussin Dm Liquid Cup) 5 ml Q4H PRN PO COUGH Last administered on 04/19/17 05:09; Admin Dose 5 ML; Start 04/15/17 at 16:30 Pantoprazole (Protonix Tab) 40 mg DAILY@06 PO Last administered on 04/26/17 05 :39; Admin Dose 40 MG; Start 04/17/17 at 06:00 Acetaminophen (Tylenol Tab) 500 mg Q6H PRN PO PAIN AND OR ELEVATED TEMP Last administered on 04/24/17 19:35; Admin Dose 500 MG; Start 04/17/17 at 03:00 Magnesium Hydroxide 30 ml 30 ml DAILY PRN PO CONSTIPATION; Start 04/17/17 at 11 :30 Ampicillin Sodium/ Sulbactam Sodium (Unasyn 1.5gm/NS (Pmx)) 50 ml @ 100 mls/hr Q6 IVPB Last administered on 04/26/17 12:13; Admin Dose 100 MLS/HR; Start at 18:00 Furosemide (Lasix) 20 mg DAILY@06 IV Last administered on 04/23/17 05:44; Admin Dose 20 MG; Start 04/18/17 at 18:30; Status Future Hold Fentanyl (Duragesic 12 Mcg/Hr Patch) 1 patch Q72H TRANSDERM Last administered on 04/25/17 05:45; Admin Dose 1 PATCH; Start 04/22/17 at 05:30 Morphine Sulfate (morphine) 1 mg Q4H PRN IV SEVERE PAIN LEVEL 7-10 Last administered on 04/25/17 19:38; Admin Dose 1 MG; Start 04/22/17 at 17:30 Metoclopramide HCl (Reglan) 10 mg Q6H PRN IV NAUSEA Last administered on 21:09; Admin Dose 10 MG; Start 04/22/17 at 21:00 Enoxaparin Sodium (Lovenox) 30 mg DAILY SC Last administered on 04/26/17 08:15 ; Admin Dose 30 MG; Start 04/23/17 at 20:30 Acetaminophen (Tylenol Supp) 650 mg Q6H PRN [place] FEVER GREATER THAN 100.6; Start 04/23/17 at 20:30 Acetaminophen (Tylenol Tab) 650 mg Q6H PRN PO PAIN AND OR ELEVATED TEMP; Start 04/23/17 at 20:30 Lactobacillus Acidophilus/ Rhamnosus (Culturelle) 1 cap BID PO Last administered on 04/26/17 08:12; Admin Dose 1 CAP; Start 04/24/17 at 11:30 Diagnostic Test (Pha) 1 ea 1 ea 02 XX ; Start 04/26/17 at 02:00 Sodium Chloride (NS) 1,000 ml @ 70 mls/hr [id number] IV Last administered on 04/26 05:39; Admin Dose 70 MLS/HR; Start 04/25/17 at 13:30; Stop 04/26/17 at 18: 04 NGOC GARZA MD Apr 26, 2017 13:46
--- NOTE | 2017-04-26 14:00 | PN ---
DATE: 04/26/2017 SUBJECTIVE DATA: The patient was transferred from ICU to telemetry on the 5th floor last night. Now patient is in room 5559. Does not complain of any pain. States that when she is trying to talk she gets a little bit short of breath. OBJECTIVE: GENERAL: Awake, alert, oriented times 3. VITAL SIGNS: Temperature 98.2, heart rate 95, respirations 16, blood pressure 118/60, saturation 96 percent on 6 L of simple nasal mask. LABORATORY DATA: WBC slightly better 15,100 today with 83.9 percent segmented, hemoglobin 8.3, hematocrit 24.6. Chemistry, sodium 129, potassium 4.1, BUN 6, creatinine 0.38, calcium is 8.3. IMAGING: Chest CT was done last night and the report is as follows: 1. Right chest tube, which is not in the region of the large right pleural effusion. 2. Bilateral lower lobe atelectasis or pneumonia with right worse than left. 3. Small left pleural effusion. 4. Drainage catheter in the multiloculated liver abscess. Degenerative changes of the spine. DRAINS: 1. I and Os the chest tube in past 24 hours has drained 0 cc drainage. 2. The pigtail drain in the abscess cavity has drained 30 cc in past 24 hours, it is serosanguineous. IMPRESSION: 1. A 66-year-old female with multiloculated and lobulated central liver abscess. 2. Right extensive pleural effusion with chest tube in place. Apparently according to the last night the chest CT scan of the chest, the chest tube is not in the proper position at this time. The pigtail drain which was placed 2 days ago in the abscess cavity is not draining any more pus and drainage serosanguineous fluid. We have discussed with me and Dr. Martin with Dr. Decker previously appears that every few days this pigtail drain either should be manipulated and change the position of the tip in another loculation or new pigtail tube should be placed to drain the abscesses in the liver. Therefore, I am going to request so that the change of the position of the pigtail by Interventional Radiology tomorrow. 3. In the ER today pleural effusion. Apparently, the nurse practitioner, today as ordered thoracentesis via ultrasound- guided by the radiologist. Hopefully that the radiologist can drain maximum amount of pleural effusion so that the patient's shortness of the breath can get better. Meanwhile, per nurse, the thoracic surgeon, has been notified about the position of the chest tube. Dictated By: Osmani Ceballos MD /rachel/glendy /Document#: [id number]
--- NOTE | 2017-04-26 14:32 | PN ---
Date/Time of Note Date/Time of Note DATE: 04/26/17 TIME: 14:31 Assessment/Plan Lines/Catheters IV Catheter Type (from Nrs): Peripheral IV Khan in Place (from Nrs): No Assessment/Plan Chief Complaint/Hosp Course 66-year-old female with a history of colon/rectal ca presenting with sepsis due to liver abscesses, whose course has been complicated by mild hypoxemic resp insufficiency with enlarging R.> L effusions. SP CT placement still with large effusion will need VATS decortication if she does not respond to CT Sxn Continue antibiotics per ID VATS early next week. may need to defer thoracic surgery until liver abscess resolved. Continue percutaneous drainage of abdominal abscess Problems: Subjective 24 Hr Interval Summary Constitutional: improved Pain Control: mild Exam/Review of Systems Vital Signs Vitals Vital Signs Date Time Temp Pulse Resp B/P Pulse Ox O2 Delivery O2 Flow Rate FiO2 04/26/17 12:00 98 04/26/17 11:38 98.2 16 118/60 96 04/26/17 08:00 Simple Mask 6.0 Intake and Output 04/25/17 04/25/17 04/26/17 14:59 22:59 06:59 Intake Total 600 ml 272 ml 200 ml Output Total 600 ml 500 ml 870 ml Balance 0 ml -228 ml -670 ml Exam ENMT: mucosa pink and moist, nl external ears & nose, nl lips & teeth, nl nasal mucosa & septum Neck: non-tender, supple Respiratory: clear to auscultation, normal air movement Cardiovascular: nl pulses, regular rate and rhythm Gastrointestinal: nl liver, spleen, non-tender, soft Results Result Diagram: 04/26/17 0940 04/26/17 0940 ADRIAN NO MD Apr 26, 2017 14:32
--- NOTE | 2017-04-26 14:57 | RADRPT ---
PROCEDURE: US guided right thoracentesis. CLINICAL INDICATION: Shortness of breath. Right pleural effusion. TECHNIQUE: Prior to the procedure, informed consent was obtained. The risks, benefits, and alternatives were e xplained to the patient or the patient's family, including but not limited to bleeding, infection, p ain, visceral or vascular damage, shock, pneumothorax, chest tube placement, air embolism, and . The patient or the patient's family understood the risks and the alternatives and wished to proce ed with the study. Informed written consent was obtained. A procedural pause was performed. The patient's name, date of , and procedure to be performed were verified. Ultrasound of the right hemithorax was performed in the axial and sagittal planes. A right pleural e ffusion is noted. Utilizing ultrasound guidance, optimal location for entry to the pleural cavity wa s ascertained. The overlying skin was prepped and draped in the usual sterile fashion. Approximate ly 10 ml of 1% Xylocaine was injected locally for pain control. Using ultrasound guidance, a 5-Fren Yueh catheter was introduced into the right pleural space without difficulty. Fluid was aspirated . COMPARISON: CT scan of the chest dated 04/25/2017. FINDINGS: Initial ultrasound demonstrates fluid in the right pleural space. Approximately 0.250 liters of ser osanguineous fluid was aspirated and discarded. Following thoracentesis, there is still a moderate a mount of fluid in the right pleural space which appears multiloculated. IMPRESSION: 1. Multiloculated right pleural effusion which was partially drained. RPTAT: QQ .Logan Decker MD, MD Date Time Electronically viewed and signed by .Logan Decker MD, on 04/26/2017 14:57 .R/
[2017-04-26] MEDS ORDERED: LIDOCAINE 1% (MPF) 5 ML VIAL ONE (15:03)
--- NOTE | 2017-04-26 15:09 | RADRPT ---
PROCEDURE: XR Chest. CLINICAL INDICATION: Shortness of breath. Post right thoracentesis. TECHNIQUE: Single frontal view. COMPARISON: 04/25/2017. FINDINGS: There is improved aeration of the right lung and the right pleural effusion is now smaller than seen previously. A right chest tube is noted inferiorly in the right hemithorax as seen previously. Ther e is mild left basilar atelectasis, improved. A pigtail drainage catheter is present overlying the l iver. The heart size is normal. There is no left pleural effusion. There is no pneumothorax. IMPRESSION: 1. Smaller right pleural effusion. 2. Improved aeration of the right lung. 3. Improved appearance of the left lung base. 4. No other change from 04/25/2017. RPTAT: QQ .Logan Decker MD, MD Date Time Electronically viewed and signed by .Logan Decker MD, MD on 04/26/2017 15:08 .R/
--- NOTE | 2017-04-26 17:45 | CONS ---
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 - S/p Right 32-Syrian chest tube placement on 04/22/2017 - Hypotension - resolved with IVF - Normocytic anemia requiring blood transfusion - Coagulopathy - improved - Transaminitis - slowly improving - Hyponatremia on admission - CoNS in urine culture with trivial pyuria, likely contaminant; pt asymptomatic - Hx of rectal CA s/p Low anterior resection 08/29/2016 - Severe protein calorie malnutrition Recommendations: - lactic acid and procalcitonin now - continue Unasyn (04/18/2017-); s/p linezolid and pip/tazo - monitor closely - low threshold to broaden abx; Linezolid/caspo/micafungin - pending: wound cx from 04/23, repeat blood and urine cx from 04/23 - repeat imaging prior to antibiotic cessation to ensure resolution Problems: Consultation Date/Type/Reason Admit Date/Time Apr 13, 2017 at 19:51 Initial Consult Date 04/13/17 Type of Consultation: id Referring Provider: DARREL BURT MD Exam/Review of Systems Vital Signs Vitals Vital Signs Date Time Temp Pulse Resp B/P Pulse Ox O2 Delivery O2 Flow Rate FiO2 04/26/17 16:00 103 04/26/17 15:53 98.2 16 109/65 95 04/26/17 08:00 Simple Mask 6.0 Intake and Output 04/25/17 04/25/17 04/26/17 15:00 23:00 07:00 Intake Total 597 ml 225 ml 200 ml Output Total 800 ml 300 ml 870 ml Balance -203 ml -75 ml -670 ml Exam went for thoracentesis Results Result Diagram: 04/26/17 0940 04/26/17 0940 Results 24 hrs Laboratory Tests Test 04/25/17 19:55 04/25/17 20:48 04/26/17 08:11 04/26/17 09:40 Lactic Acid Level 0.7 Bedside Glucose 154 105 White Blood Count 15.1 #H Red Blood Count 2.66 L Hemoglobin 8.3 L Hematocrit 24.6 L Mean Corpuscular Volume 92.5 Mean Corpuscular Hemoglobin 31.2 Mean Corpuscular Hemoglobin Concent 33.7 Red Cell Distribution Width 13.7 Platelet Count 230 # Mean Platelet Volume 8.9 Neutrophils % 83.9 H Lymphocytes % 7.3 L Monocytes % 7.6 Eosinophils % 0.3 Basophils % 0.1 Nucleated Red Blood Cells % 0.0 Neutrophils # 12.7 H Lymphocytes # 1.1 Monocytes # 1.2 H Eosinophils # 0.1 Basophils # 0.0 Nucleated Red Blood Cells # 0.0 Sodium Level 129 L Potassium Level 4.1 Chloride Level 96 L Carbon Dioxide Level 32 H Anion Gap 5 L Blood Urea Nitrogen 6 L Creatinine 0.38 L Glucose Level 147 Calcium Level 8.3 L Test 04/26/17 12:12 04/26/17 17:10 Bedside Glucose 144 121 Medications Medications Current Medications Miscellaneous Information 1 ea NOTE XX ; Start 04/13/17 at 21:30 Glucose (Glutose) 15 gm Q15M PRN PO DECREASED GLUCOSE; Start 04/13/17 at 21:30 Glucose (Glutose) 22.5 gm Q15M PRN PO DECREASED GLUCOSE; Start 04/13/17 at 21: 30 Dextrose (D50w Syringe) 25 ml Q15M PRN IV DECREASED GLUCOSE; Start 04/13/17 at 21:30 Dextrose (D50w Syringe) 50 ml Q15M PRN IV DECREASED GLUCOSE; Start 04/13/17 at 21:30 Glucagon (Glucagen) 1 mg Q15M PRN IM DECREASED GLUCOSE; Start 04/13/17 at 21:30 Glucose (Glutose) 15 gm Q15M PRN BUCCAL DECREASED GLUCOSE; Start 04/13/17 at 21 :30 Ondansetron HCl (Zofran Inj) 4 mg Q6 PRN IV NAUSEA AND/OR VOMITING Last administered on 04/25/17t 19:41; Admin Dose 4 MG; Start 04/13/17 at 21:30 Guaifenesin/ Dextromethorphan (Robitussin Dm Liquid Cup) 5 ml Q4H PRN PO COUGH Last administered on 04/19/17 05:09; Admin Dose 5 ML; Start 04/15/17 at 16:30 Pantoprazole (Protonix Tab) 40 mg DAILY@06 PO Last administered on 04/26/17 05 :39; Admin Dose 40 MG; Start 04/17/17 at 06:00 Acetaminophen (Tylenol Tab) 500 mg Q6H PRN PO PAIN AND OR ELEVATED TEMP Last administered on 04/24/17 19:35; Admin Dose 500 MG; Start 04/17/17 at 03:00 Magnesium Hydroxide 30 ml 30 ml DAILY PRN PO CONSTIPATION; Start 04/17/17 at 11 :30 Ampicillin Sodium/ Sulbactam Sodium (Unasyn 1.5gm/NS (Pmx)) 50 ml @ 100 mls/hr Q6 IVPB Last administered on 04/26/17 17:20; Admin Dose 100 MLS/HR; Start at 18:00 Furosemide (Lasix) 20 mg DAILY@06 IV Last administered on 04/23/17 05:44; Admin Dose 20 MG; Start 04/18/17 at 18:30; Status Future Hold Fentanyl (Duragesic 12 Mcg/Hr Patch) 1 patch Q72H TRANSDERM Last administered on 04/25/17 05:45; Admin Dose 1 PATCH; Start 04/22/17 at 05:30 Morphine Sulfate (morphine) 1 mg Q4H PRN IV SEVERE PAIN LEVEL 7-10 Last administered on 04/25/17 19:38; Admin Dose 1 MG; Start 04/22/17 at 17:30 Metoclopramide HCl (Reglan) 10 mg Q6H PRN IV NAUSEA Last administered on 21:09; Admin Dose 10 MG; Start 04/22/17 at 21:00 Enoxaparin Sodium (Lovenox) 30 mg DAILY SC Last administered on 04/26/17 08:15 ; Admin Dose 30 MG; Start 04/23/17 at 20:30 Acetaminophen (Tylenol Supp) 650 mg Q6H PRN IN FEVER GREATER THAN 100.6; Start 04/23/17 at 20:30 Acetaminophen (Tylenol Tab) 650 mg Q6H PRN PO PAIN AND OR ELEVATED TEMP; Start 04/23/17 at 20:30 Lactobacillus Acidophilus/ Rhamnosus (Culturelle) 1 cap BID PO Last administered on 04/26/17 08:12; Admin Dose 1 CAP; Start 04/24/17 at 11:30 Diagnostic Test (Pha) 1 ea 1 ea 02 XX ; Start 04/26/17 at 02:00 Sodium Chloride (NS) 1,000 ml @ 70 mls/hr [id number] IV Last administered on 04/26 05:39; Admin Dose 70 MLS/HR; Start 04/25/17 at 13:30; Stop 04/26/17 at 18: 04 CHIOMA ROGERS MD Apr 26, 2017 17:45
--- NOTE | 2017-04-26 19:06 | PN ---
Date/Time of Note Date/Time of Note DATE: 04/26/17 TIME: 18:47 Assessment/Plan VTE Prophylaxis VTE Prophylaxis Intervention: LMWH (lovenox) Lines/Catheters IV Catheter Type (from Nrsg): Peripheral IV Urinary Cath still in place: No Subjective 24 Hr Interval Summary Free Text/Dictation Date/Time of Note Date/Time of Note DATE: 04/26/17 TIME: 18: Assessment/Plan Assessment/Plan Additional Assessment/Plan 1.Hypotension-now improved 2.abnl ecg-with ST elevations anterior-negative trop x 3/NL EF by echo. NO CP 3.Liver abscess s/p CT guided drainage 4.H/O lung ca s/p resection with lung nodules by CT? 5.Lung nodules Recc: OK to tele Consultation Date/Type/Reason Admit Date/Time Apr 13, 2017 at 19:51 Initial Consult Date 04/21/17 Type of Consultation: Pulmonary/critical care Referring Provider: DARREL BURT MD 24 HR Interval Summary Free Text/Dictation No complains Exam/Review of Systems Vital Signs Vitals Patient is weak; she has pain only when she is turned from side to side. Patient breathes with O2 mask; no dyspnea. Has hot flushes. Vital Signs Date Time Temp Pulse Resp B/P Pulse Ox O2 Delivery O2 Flow Rate FiO2 04/26/17 16:00 98.4 84 46 109/65 96 Mask 6.0 Intake and Output 04/24/17 04/24/17 04/25/17 15:00 23:00 07:00 Intake Total 480 ml 440 ml 100 ml Output Total 260 ml 540 ml 500 ml Balance 220 ml -100 ml -400 ml Exam No JVD Heart : RSR Lumgs: Clear Abd: B9 Ext: No edema Results Result Diagram: 04/24/17 1510 04/25/17 0520 Results 24 hrs Laboratory Tests Test 04/24/17 15:10 04/24/17 16:37 04/24/17 20:37 04/25/17 05:20 White Blood Count 19.8 H Red Blood Count 3.04 L Hemoglobin 9.5 L Hematocrit 28.3 L Mean Corpuscular Volume 93.1 Mean Corpuscular Hemoglobin 31.3 Mean Corpuscular Hemoglobin Concent 33.6 Red Cell Distribution Width 13.5 Platelet Count 176 Mean Platelet Volume 9.1 Neutrophils % 83.7 H Lymphocytes % 6.6 L Monocytes % 8.2 Eosinophils % 0.3 Basophils % 0.2 Nucleated Red Blood Cells % 0.0 Neutrophils # 16.6 H Lymphocytes # 1.3 Monocytes # 1.6 H Eosinophils # 0.1 Basophils # 0.0 Nucleated Red Blood Cells # 0.0 Bedside Glucose 118 147 Sodium Level 132 L Potassium Level 4.2 Chloride Level 97 Carbon Dioxide Level 32 H Anion Gap 7 L Blood Urea Nitrogen 7 Creatinine 0.35 L Glucose Level 117 Calcium Level 8.3 L Test 04/25/17 05:21 04/25/17 07:00 04/25/17 08:18 04/25/17 11:50 Bedside Glucose 109 161 152 Blood Gas Specimen Source Blood arterial Arterial Blood Date Drawn 04/25/2017 8:30:33 AM Arterial Blood pH (Temp corrected) 7.463 H Arterial Blood pCO2 (Temp correct) 46.1 H Arterial Blood pO2 (Temp corrected) 88.8 Arterial Blood HCO3 32.3 H Arterial Blood Base Excess 7.7 H Arterial Blood Oxygen Saturation 97.0 Ruben Test ACCEPTAB Arterial Blood Gas Puncture Site Right Radial Arterial Blood Carboxyhemoglobin 0.3 Arterial Blood Methemoglobin 0.3 Blood Gas A-a O2 Differential 179.6 H Oxyhemoglobin Percent 96.4 Total Hemoglobin 8.7 L Blood Gas Temperature 37.0 Blood Gas Modality MASK - SIMPLE FiO2 45.0 Blood Gas Notified Whom DT Blood Gas Notified Time 04/25/2017 8:55:54 AM Medications Medications Current Medications Miscellaneous Information 1 ea NOTE XX ; Start 04/13/17 at 21:30 Glucose (Glutose) 15 gm Q15M PRN PO DECREASED GLUCOSE; Start 04/13/17 at 21:30 Glucose (Glutose) 22.5 gm Q15M PRN PO DECREASED GLUCOSE; Start 04/13/17 at 21: 30 Dextrose (D50w Syringe) 25 ml Q15M PRN IV DECREASED GLUCOSE; Start 04/13/17 at 21:30 Dextrose (D50w Syringe) 50 ml Q15M PRN IV DECREASED GLUCOSE; Start 04/13/17 at 21:30 Glucagon (Glucagen) 1 mg Q15M PRN IM DECREASED GLUCOSE; Start 04/13/17 at 21:30 Glucose (Glutose) 15 gm Q15M PRN BUCCAL DECREASED GLUCOSE; Start 04/13/17 at 21 :30 Ondansetron HCl (Zofran Inj) 4 mg Q6 PRN IV NAUSEA AND/OR VOMITING Last administered on 04/24/17 04:19; Admin Dose 4 MG; Start 04/13/17 at 21:30 Guaifenesin/ Dextromethorphan (Robitussin Dm Liquid Cup) 5 ml Q4H PRN PO COUGH Last administered on 04/19/17 05:09; Admin Dose 5 ML; Start 04/15/17 at 16:30 Pantoprazole (Protonix Tab) 40 mg DAILY@06 PO Last administered on 04/25/17 05 :46; Admin Dose 40 MG; Start 04/17/17 at 06:00 Acetaminophen (Tylenol Tab) 500 mg Q6H PRN PO PAIN AND OR ELEVATED TEMP Last administered on 04/24/17 19:35; Admin Dose 500 MG; Start 04/17/17 at 03:00 Magnesium Hydroxide 30 ml 30 ml DAILY PRN PO CONSTIPATION; Start 04/17/17 at 11 :30 Ampicillin Sodium/ Sulbactam Sodium (Unasyn 1.5gm/NS (Pmx)) 50 ml @ 100 mls/hr Q6 IVPB Last administered on 04/25/17 13:41; Admin Dose 100 MLS/HR; Start at 18:00 Furosemide (Lasix) 20 mg DAILY@06 IV Last administered on 04/23/17 05:44; Admin Dose 20 MG; Start 04/18/17 at 18:30; Status Future Hold Fentanyl (Duragesic 12 Mcg/Hr Patch) 1 patch Q72H TRANSDERM Last administered on 04/25/17 05:45; Admin Dose 1 PATCH; Start 04/22/17 at 05:30 Morphine Sulfate (morphine) 1 mg Q4H PRN IV SEVERE PAIN LEVEL 7-10 Last administered on 04/25/17 10:19; Admin Dose 1 MG; Start 04/22/17 at 17:30 Metoclopramide HCl (Reglan) 10 mg Q6H PRN IV NAUSEA Last administered on 21:09; Admin Dose 10 MG; Start 04/22/17 at 21:00 Enoxaparin Sodium (Lovenox) 30 mg DAILY SC Last administered on 04/25/17 09:09 ; Admin Dose 30 MG; Start 04/23/17 at 20:30 Acetaminophen (Tylenol Supp) 650 mg Q6H PRN [place] FEVER GREATER THAN 100.6; Start 04/23/17 at 20:30 Acetaminophen (Tylenol Tab) 650 mg Q6H PRN PO PAIN AND OR ELEVATED TEMP; Start 04/23/17 at 20:30 Lactobacillus Acidophilus/ Rhamnosus (Culturelle) 1 cap BID PO Last administered on 04/25/17 08:58; Admin Dose 1 CAP; Start 04/24/17 at 11:30 Diagnostic Test (Pha) 1 ea 1 ea 02 XX ; Start 04/26/17 at 02:00 Sodium Chloride (NS) 1,000 ml @ 70 mls/hr [id number] IV Last administered on 04/25 13:41; Admin Dose 70 MLS/HR; Start 04/25/17 at 13:30; Stop 04/26/17 at 18: 04 Will follow BARBARA ROMERO MD Apr 25, 2017 13:57 04/25/17 1357 Exam/Review of Systems Vital Signs Vitals Vital Signs Date Time Temp Pulse Resp B/P Pulse Ox O2 Delivery O2 Flow Rate FiO2 04/26/17 18:13 95 6.0 04/26/17 16:00 103 04/26/17 15:53 98.2 16 109/65 04/26/17 08:00 Simple Mask Intake and Output 04/25/17 04/25/17 04/26/17 15:00 23:00 07:00 Intake Total 597 ml 225 ml 200 ml Output Total 800 ml 300 ml 870 ml Balance -203 ml -75 ml -670 ml Results Result Diagram: 04/26/17 0940 04/26/17 0940 Results 24 hrs Laboratory Tests Test 04/25/17 19:55 04/25/17 20:48 04/26/17 08:11 04/26/17 09:40 Lactic Acid Level 0.7 Bedside Glucose 154 105 White Blood Count 15.1 #H Red Blood Count 2.66 L Hemoglobin 8.3 L Hematocrit 24.6 L Mean Corpuscular Volume 92.5 Mean Corpuscular Hemoglobin 31.2 Mean Corpuscular Hemoglobin Concent 33.7 Red Cell Distribution Width 13.7 Platelet Count 230 # Mean Platelet Volume 8.9 Neutrophils % 83.9 H Lymphocytes % 7.3 L Monocytes % 7.6 Eosinophils % 0.3 Basophils % 0.1 Nucleated Red Blood Cells % 0.0 Neutrophils # 12.7 H Lymphocytes # 1.1 Monocytes # 1.2 H Eosinophils # 0.1 Basophils # 0.0 Nucleated Red Blood Cells # 0.0 Sodium Level 129 L Potassium Level 4.1 Chloride Level 96 L Carbon Dioxide Level 32 H Anion Gap 5 L Blood Urea Nitrogen 6 L Creatinine 0.38 L Glucose Level 147 Calcium Level 8.3 L Test 04/26/17 12:12 04/26/17 17:10 Bedside Glucose 144 121 Medications Medications Current Medications Miscellaneous Information 1 ea NOTE XX ; Start 04/13/17 at 21:30 Glucose (Glutose) 15 gm Q15M PRN PO DECREASED GLUCOSE; Start 04/13/17 at 21:30 Glucose (Glutose) 22.5 gm Q15M PRN PO DECREASED GLUCOSE; Start 04/13/17 at 21: 30 Dextrose (D50w Syringe) 25 ml Q15M PRN IV DECREASED GLUCOSE; Start 04/13/17 at 21:30 Dextrose (D50w Syringe) 50 ml Q15M PRN IV DECREASED GLUCOSE; Start 04/13/17 at 21:30 Glucagon (Glucagen) 1 mg Q15M PRN IM DECREASED GLUCOSE; Start 04/13/17 at 21:30 Glucose (Glutose) 15 gm Q15M PRN BUCCAL DECREASED GLUCOSE; Start 04/13/17 at 21 :30 Ondansetron HCl (Zofran Inj) 4 mg Q6 PRN IV NAUSEA AND/OR VOMITING Last administered on 04/25/17 19:41; Admin Dose 4 MG; Start 04/13/17 at 21:30 Guaifenesin/ Dextromethorphan (Robitussin Dm Liquid Cup) 5 ml Q4H PRN PO COUGH Last administered on 04/19/17 05:09; Admin Dose 5 ML; Start 04/15/17 at 16:30 Pantoprazole (Protonix Tab) 40 mg DAILY@06 PO Last administered on 04/26/17 05 :39; Admin Dose 40 MG; Start 04/17/17 at 06:00 Acetaminophen (Tylenol Tab) 500 mg Q6H PRN PO PAIN AND OR ELEVATED TEMP Last administered on 04/24/17 19:35; Admin Dose 500 MG; Start 04/17/17 at 03:00 Magnesium Hydroxide 30 ml 30 ml DAILY PRN PO CONSTIPATION; Start 04/17/17 at 11 :30 Ampicillin Sodium/ Sulbactam Sodium (Unasyn 1.5gm/NS (Pmx)) 50 ml @ 100 mls/hr Q6 IVPB Last administered on 04/26/17 17:20; Admin Dose 100 MLS/HR; Start at 18:00 Furosemide (Lasix) 20 mg DAILY@06 IV Last administered on 04/23/17 05:44; Admin Dose 20 MG; Start 04/18/17 at 18:30; Status Future Hold Fentanyl (Duragesic 12 Mcg/Hr Patch) 1 patch Q72H TRANSDERM Last administered on 04/25/17 05:45; Admin Dose 1 PATCH; Start 04/22/17 at 05:30 Morphine Sulfate (morphine) 1 mg Q4H PRN IV SEVERE PAIN LEVEL 7-10 Last administered on 04/25/17 19:38; Admin Dose 1 MG; Start 04/22/17 at 17:30 Metoclopramide HCl (Reglan) 10 mg Q6H PRN IV NAUSEA Last administered on 21:09; Admin Dose 10 MG; Start 04/22/17 at 21:00 Enoxaparin Sodium (Lovenox) 30 mg DAILY SC Last administered on 04/26/17 08:15 ; Admin Dose 30 MG; Start 04/23/17 at 20:30 Acetaminophen (Tylenol Supp) 650 mg Q6H PRN [place] FEVER GREATER THAN 100.6; Start 04/23/17 at 20:30 Acetaminophen (Tylenol Tab) 650 mg Q6H PRN PO PAIN AND OR ELEVATED TEMP; Start 04/23/17 at 20:30 Lactobacillus Acidophilus/ Rhamnosus (Culturelle) 1 cap BID PO Last administered on 04/26/17 08:12; Admin Dose 1 CAP; Start 04/24/17 at 11:30 Diagnostic Test (Pha) (Accu-Chek) 1 ea 02 XX ; Start 04/26/17 at 02:00 BARBARA ROMERO MD Apr 26, 2017 19:04
[2017-04-26] MEDS: ONDANSETRON 4 MG INJ IV PRN (20:25)
[2017-04-26] MEDS: morphine 2 MG INJ IV PRN (20:25)
[2017-04-27] VITALS (14 sets, daily range): BP systolic 104–137; BP diastolic 61–78; PULSE 74–95; RESP 16–21
[2017-04-27] MEDS: AMPICILLIN/SULB 1.5GM/NS (PMX) 50 ML IVPB SCH ×4 (00:36→17:51)
[2017-04-27] MEDS: LACTOBACILLUS RHAMNOSUS CAP PO SCH ×3 (00:36→20:39)
[2017-04-27] MEDS: ACCU-CHEK XX SCH (02:00)
[2017-04-27] MEDS: PANTOPRAZOLE (EC) 40 MG TAB PO SCH (05:31)
[2017-04-27] MEDS: ACETAMINOPHEN 325 MG TAB PO PRN ×2 (05:32→13:40)
[2017-04-27] MEDS ORDERED: PROPOFOL 200 MG INJ ONE (07:00)
--- NOTE | 2017-04-27 07:20 | PN ---
DATE: 04/25/2017 SUBJECTIVE: Does not have any constitutional complaints. Some chest pain at the site of the chest tube. No abdominal pain. No chills. No fever. Has tolerated diet. OBJECTIVE: Awake, alert, oriented x3. Vital signs: Temperature maximum 98.1, heart rate between 94-105, respirations 20, pulse oximetry 96 percent saturation with 6 liters of simple face mask oxygen. Heart is regular. Lungs: Decreased breathing sound on the right side. Abdomen: Quite soft. Bowel sounds normal. The pigtail drain has drained 30 mL in past 24 hours. The drainage color is serosanguineous. Does not look purulent. Chest tube is in place, drainage 14 mL in 24 hours. It appears serosanguineous. Lower extremity: No pitting edema. No calf tenderness. LABORATORY AND DIAGNOSTIC DATA: WBC has increased. Yesterday it was 19,800. . Hemoglobin 9.5, hematocrit 38.3. Chemistry shows sodium 132, low, potassium 4.2, BUN 7, creatinine 0.35. Calcium 8.3 Microbiology: Urine culture which was drawn yesterday so far is negative. Blood culture is negative. The culture from liver aspirate was done on 04/23/2017 so far culture is negative. Gram stain shows 4+ leukocytes, but no bacteria were seen. ASSESSMENT AND PLAN: This is a 66-year-old female, who was admitted because of two weeks of abdominal pain, nausea and chills and some fever, was found to be multiloculated liver abscess. On the 04/25/2017, percutaneous drainage was achieved and the culture grew hemolytic streptococcus, but after few days, the drainage catheter cleared to serous fluid and somehow a few days ago, the drain either fell off or was removed by some medical personnel. Again, another drain was inserted two days ago by the radiologist under direct CT guidance, and at that time, the drainage appeared to be purulent and was sent for culture. So far, cultures negative and was sent for Gram stain, and the Gram stain did not reveal any bacteria. Right now, the drainage from this pigtail also is serosanguineous. Yesterday, myself, Dr. Martin and Dr. Decker reviewed the x-rays and the decision was made that every two to three days, request Radiology under CT guidance to manipulate the pigtail tip so that from one loculation it goes to another loculation. Hopefully, they can drain all the loculations. On the other hand, the patient has developed pleural effusion, which once that was aspirated by Dr. Decker and drained 210 cc fluid. Culture was negative and appeared to be serosanguineous. Later on, cardiothoracic surgeon, placed a chest tube and this 3 drained about 70 cc, but it has slowed down. Had minimal drainage in past 24 hours, maybe 14 cc. It appears to be serosanguineous. Dr. Jackson, thoracic cardiac surgeon believes that this is loculated pleural effusion and he is planning to proceed with decortication and drainage. In conclusion, the patient is not a good case for open drainage of the liver abscess because it is located in the central part of the liver. It may be fairly better to be drained percutaneously under CT guidance, and Dr. Decker is going to help in this matter. Dictated By: Osmani Ceballos MD /rachel/kayode /Document#: [id number] [email or web address]
--- NOTE | 2017-04-27 07:50 | RADRPT ---
PROCEDURE: Chest Radiograph. CLINICAL INDICATION: Chest pain TECHNIQUE: Single frontal chest radiograph. COMPARISON: Chest radiograph 02/20/2017 FINDINGS: The cardiomediastinal silhouette is within normal limits. A right chest tube remains in place. Ther e is diffuse ground-glass opacification of the right lung likely representing large pleural effusion with adjacent atelectasis. Diffuse infiltrates could also have this appearance . There is a small l eft pleural effusion with adjacent atelectasis. A liver drainage catheter is noted. The bones are intact. IMPRESSION: 1. Stable radiographic appearance of chest compared to 04/23/2017 allowing for differences in techn ique. RPTAT: KK .Wilmer Qureshi MD, MD Date Time Electronically viewed and signed by .Wilmer Qureshi MD, on 04/24/2017 15:13 .B/
[2017-04-27 07:54] LABS: BASOPHILS % 0.4 % (0.0-2.0); EOSINOPHILS # 0.1 10^3/ul (0.0-0.5); EOSINOPHILS % 0.6 % (0.0-7.0); HEMATOCRIT 25.3 % (37.0-47.0); HEMOGLOBIN 8.1 g/dl (12.0-16.0); LYMPHOCYTES # 1.1 10^3/ul (0.8-2.9); LYMPHOCYTES % 10.4 % (15.0-51.0); MEAN CORPUSCULAR HEMOGLOBIN 29.7 pg (29.0-33.0); MEAN CORPUSCULAR VOLUME 92.7 fl (82.0-101.0); MEAN PLATELET VOLUME 8.9 fl (7.4-10.4); MONOCYTE # 1.2 10^3/ul (0.3-0.9); MONOCYTES % 11.5 % (0.0-11.0); NEUTROPHIL # 8.1 10^3/ul (1.6-7.5); NEUTROPHILS % 76.5 % (39.0-77.0); PLATELET COUNT 264 10^3/UL (140-415); RED BLOOD COUNT 2.73 10^6/ul (4.20-5.40); RED CELL DISTRIBUTION WIDTH 13.8 % (11.5-14.5); WHITE BLOOD COUNT 10.6 10^3/ul (4.8-10.8)
[2017-04-27 08:18] LABS: CALCIUM 8.7 mg/dl (8.4-10.2); CREATININE 0.37 mg/dl (0.44-1.00); POTASSIUM 4.1 mmol/L (3.5-5.1)
[2017-04-27] MEDS: ENOXAPARIN 30 MG/0.3 ML SYG SC SCH (08:37)
[2017-04-27] MEDS: Insulin NOVOLOG SS MILD Algorithm (SS with meals and bedtime) SC SCH ×4 (08:41→23:03)
--- NOTE | 2017-04-27 10:42 | CONS ---
Date/Time of Note Date/Time of Note DATE: 04/27/17 TIME: 10:39 Assessment/Plan Assessment/Plan Chief Complaint/Hosp Course - Severe sepsis due to liver abscess, loculated pleural effusion - multiloculated liver abscess s/p CT guided drainage catheter placement 2016, 04/23/2017; 04/15/2017 gamma hemolytic strep, 04/23/2017 alpha hemolytic strep - Loculated pleural effusion likely secondary to hepatic process/Hepatic hydrothorax, R>L, s/p R thoracentesis on 04/20/2017, s/p chest tube placement on 04/22/2017 - Hypotension - resolved with IVF - Normocytic anemia requiring blood transfusion - Coagulopathy - improved - Transaminitis - slowly improving - Hyponatremia on admission - CoNS in urine culture with trivial pyuria, likely contaminant; pt asymptomatic - Hx of rectal CA s/p Low anterior resection 08/29/2016 - Severe protein calorie malnutrition - allergy to vancomycin recommendations: - lactic acid and procalcitonin now - continue amp/sulbactam (04/18/2017-); s/p linezolid and pip/tazo. low threshold to broaden abx; Linezolid/caspo/micafungin - Pt requires a long-term antibiotic administration;we recommend repeat imaging prior to antibiotic cessation to ensure resolution - check weekly CBC and BMP while Pt's on long-term antibiotic management d/w Pt Problems: Consultation Date/Type/Reason Admit Date/Time Apr 13, 2017 at 19:51 Initial Consult Date 04/21/17 Type of Consultation: ID Referring Provider: DARREL BURT MD 24 HR Interval Summary Constitutional: no complaints Detailed Summary Eyes: no complaints ENT: no complaints Respiratory: pleuritic pain (R side) Cardiovascular: no complaints Gastrointestinal: pain (RUQ) Genitourinary: other (Pt did not answer) Musculoskeletal: other (Pt did not answer) Skin: No rash Exam/Review of Systems Vital Signs Vitals Vital Signs Date Time Temp Pulse Resp B/P Pulse Ox O2 Delivery O2 Flow Rate FiO2 04/27/17 08:05 Simple Mask 6.0 04/27/17 08:04 97.8 77 18 104/61 96 Intake and Output 04/26/17 04/26/17 04/27/17 15:00 23:00 07:00 Intake Total 450 ml 250 ml Output Total 140 ml 0 ml 30 ml Balance -140 ml 450 ml 220 ml Exam Constitutional: frail Psych: no complaints Head: atraumatic, normocephalic Eyes: nl conjunctiva, nl lids ENMT: nl external ears & nose, nl nasal mucosa & septum Neck: supple Respiratory: diminished breath sounds, other (R sided CT in place) Gastrointestinal: other (+drainge catheter in RUQ), soft, tender (RUQ), No distended Extremities: normal pulses 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: 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 COLORER II-XII 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, 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 Skin: nl turgor, No rash or lesions Results Result Diagram: 04/27/17 0700 04/27/17 0700 Results 24 hrs Laboratory Tests Test 04/26/17 12:12 04/26/17 17:10 04/26/17 20:50 04/27/17 07:00 Bedside Glucose 144 121 133 White Blood Count 10.6 # Red Blood Count 2.73 L Hemoglobin 8.1 L Hematocrit 25.3 L Mean Corpuscular Volume 92.7 Mean Corpuscular Hemoglobin 29.7 Mean Corpuscular Hemoglobin Concent 32.0 Red Cell Distribution Width 13.8 Platelet Count 264 Mean Platelet Volume 8.9 Neutrophils % 76.5 Lymphocytes % 10.4 L Monocytes % 11.5 H Eosinophils % 0.6 Basophils % 0.4 Nucleated Red Blood Cells % 0.0 Neutrophils # 8.1 H Lymphocytes # 1.1 Monocytes # 1.2 H Eosinophils # 0.1 Basophils # 0.0 Nucleated Red Blood Cells # 0.0 Sodium Level 132 L Potassium Level 4.1 Chloride Level 97 Carbon Dioxide Level 34 H Anion Gap 5 L Blood Urea Nitrogen 8 Creatinine 0.37 L Glucose Level 109 Calcium Level 8.7 Test 04/27/17 08:41 Bedside Glucose 106 Medications Medications Current Medications Miscellaneous Information 1 ea NOTE XX ; Start 04/13/17 at 21:30 Glucose (Glutose) 15 gm Q15M PRN PO DECREASED GLUCOSE; Start 04/13/17 at 21:30 Glucose (Glutose) 22.5 gm Q15M PRN PO DECREASED GLUCOSE; Start 04/13/17 at 21: 30 Dextrose (D50w Syringe) 25 ml Q15M PRN IV DECREASED GLUCOSE; Start 04/13/17 at 21:30 Dextrose (D50w Syringe) 50 ml Q15M PRN IV DECREASED GLUCOSE; Start 04/13/17 at 21:30 Glucagon (Glucagen) 1 mg Q15M PRN IM DECREASED GLUCOSE; Start 04/13/17 at 21:30 Glucose (Glutose) 15 gm Q15M PRN BUCCAL DECREASED GLUCOSE; Start 04/13/17 at 21 :30 Ondansetron HCl (Zofran Inj) 4 mg Q6 PRN IV NAUSEA AND/OR VOMITING Last administered on 04/26/17 20:25; Admin Dose 4 MG; Start 04/13/17 at 21:30 Guaifenesin/ Dextromethorphan (Robitussin Dm Liquid Cup) 5 ml Q4H PRN PO COUGH Last administered on 04/19/17 05:09; Admin Dose 5 ML; Start 04/15/17 at 16:30 Pantoprazole (Protonix Tab) 40 mg DAILY@06 PO Last administered on 04/27/17 05 :31; Admin Dose 40 MG; Start 04/17/17 at 06:00 Acetaminophen (Tylenol Tab) 500 mg Q6H PRN PO PAIN AND OR ELEVATED TEMP Last administered on 04/24/17 19:35; Admin Dose 500 MG; Start 04/17/17 at 03:00 Magnesium Hydroxide 30 ml 30 ml DAILY PRN PO CONSTIPATION; Start 04/17/17 at 11 :30 Ampicillin Sodium/ Sulbactam Sodium (Unasyn 1.5gm/NS (Pmx)) 50 ml @ 100 mls/hr Q6 IVPB Last administered on 04/27/17 05:32; Admin Dose 100 MLS/HR; Start at 18:00 Furosemide (Lasix) 20 mg DAILY@06 IV Last administered on 04/23/17 05:44; Admin Dose 20 MG; Start 04/18/17 at 18:30; Status Future Hold Fentanyl (Duragesic 12 Mcg/Hr Patch) 1 patch Q72H TRANSDERM Last administered on 04/25/17 05:45; Admin Dose 1 PATCH; Start 04/22/17 at 05:30 Morphine Sulfate (morphine) 1 mg Q4H PRN IV SEVERE PAIN LEVEL 7-10 Last administered on 04/26/17 20:25; Admin Dose 1 MG; Start 04/22/17 at 17:30 Metoclopramide HCl (Reglan) 10 mg Q6H PRN IV NAUSEA Last administered on 21:09; Admin Dose 10 MG; Start 04/22/17 at 21:00 Enoxaparin Sodium (Lovenox) 30 mg DAILY SC Last administered on 04/26/17 08:15 ; Admin Dose 30 MG; Start 04/23/17 at 20:30 Acetaminophen (Tylenol Supp) 650 mg Q6H PRN [place] FEVER GREATER THAN 100.6; Start 04/23/17 at 20:30 Acetaminophen (Tylenol Tab) 650 mg Q6H PRN PO PAIN AND OR ELEVATED TEMP Last administered on 04/27/17 05:32; Admin Dose 650 MG; Start 04/23/17 at 20:30 Lactobacillus Acidophilus/ Rhamnosus (Culturelle) 1 cap BID PO Last administered on 04/27/17 00:36; Admin Dose 1 CAP; Start 04/24/17 at 11:30 Diagnostic Test (Pha) (Accu-Chek) 1 ea 02 XX ; Start 04/26/17 at 02:00 AARON ANSARI M.D. Apr 27, 2017 10:42
--- NOTE | 2017-04-27 11:04 | CONS ---
Date/Time of Note Date/Time of Note DATE: 04/27/17 TIME: 11:02 Assessment/Plan Assessment/Plan Additional Assessment/Plan Recommendations; 1. Patient admitted with liver abscess status post H&H catheter placement. 2. Interval development of right-sided pneumonia with loculated right pleural effusion status post chest tube placement without any drainage with significant residual pleural effusion due to multiple loculations. Status post right thoracentesis again yesterday however only 200 mL of fluid could be obtained. Next Continue current treatment. Patient will need to have a VATS procedure performed. I am going to have the cardiothoracic surgeon evaluate the patient. Continue current antibiotics and other supportive measures. Consultation Date/Type/Reason Admit Date/Time Apr 13, 2017 at 19:51 Initial Consult Date 04/15/17 Type of Consultation: Pulmonary Referring Provider: DARREL BURT MD 24 HR Interval Summary Free Text/Dictation Patient's condition stable. Denies any shortness of breath or chest pain. Denies any abdominal pain nausea vomiting. General exam; elderly woman, awake and alert currently in no distress. Exam/Review of Systems Vital Signs Vitals Vital Signs Date Time Temp Pulse Resp B/P Pulse Ox O2 Delivery O2 Flow Rate FiO2 04/27/17 08:05 Simple Mask 6.0 04/27/17 08:04 97.8 77 18 104/61 96 Intake and Output 04/26/17 04/26/17 04/27/17 15:00 23:00 07:00 Intake Total 450 ml 250 ml Output Total 140 ml 0 ml 30 ml Balance -140 ml 450 ml 220 ml Exam HEENT exam; supple neck, no JVD. No lymphadenopathy. Midline trachea. No thyromegaly. Pharynx is clear. Patient does have multiple carious teeth. Chest exam; diminished breath sounds in lower lobes bilaterally. Right-sided chest tube in place. S1-S2 audible, no murmurs. Regular rhythm. Abdomen exam; soft, right upper quadrant drain in place. Nontender. Bowel sounds audible. Extremity exam; no edema. 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 Results Result Diagram: 04/27/17 0700 04/27/17 0700 Results 24 hrs Laboratory Tests Test 04/26/17 12:12 04/26/17 17:10 04/26/17 20:50 04/27/17 07:00 Bedside Glucose 144 121 133 White Blood Count 10.6 # Red Blood Count 2.73 L Hemoglobin 8.1 L Hematocrit 25.3 L Mean Corpuscular Volume 92.7 Mean Corpuscular Hemoglobin 29.7 Mean Corpuscular Hemoglobin Concent 32.0 Red Cell Distribution Width 13.8 Platelet Count 264 Mean Platelet Volume 8.9 Neutrophils % 76.5 Lymphocytes % 10.4 L Monocytes % 11.5 H Eosinophils % 0.6 Basophils % 0.4 Nucleated Red Blood Cells % 0.0 Neutrophils # 8.1 H Lymphocytes # 1.1 Monocytes # 1.2 H Eosinophils # 0.1 Basophils # 0.0 Nucleated Red Blood Cells # 0.0 Sodium Level 132 L Potassium Level 4.1 Chloride Level 97 Carbon Dioxide Level 34 H Anion Gap 5 L Blood Urea Nitrogen 8 Creatinine 0.37 L Glucose Level 109 Calcium Level 8.7 Test 04/27/17 08:41 Bedside Glucose 106 Medications Medications Current Medications Miscellaneous Information 1 ea NOTE XX ; Start 04/13/17 at 21:30 Glucose (Glutose) 15 gm Q15M PRN PO DECREASED GLUCOSE; Start 04/13/17 at 21:30 Glucose (Glutose) 22.5 gm Q15M PRN PO DECREASED GLUCOSE; Start 04/13/17 at 21: 30 Dextrose (D50w Syringe) 25 ml Q15M PRN IV DECREASED GLUCOSE; Start 04/13/17 at 21:30 Dextrose (D50w Syringe) 50 ml Q15M PRN IV DECREASED GLUCOSE; Start 04/13/17 at 21:30 Glucagon (Glucagen) 1 mg Q15M PRN IM DECREASED GLUCOSE; Start 04/13/17 at 21:30 Glucose (Glutose) 15 gm Q15M PRN BUCCAL DECREASED GLUCOSE; Start 04/13/17 at 21 :30 Ondansetron HCl (Zofran Inj) 4 mg Q6 PRN IV NAUSEA AND/OR VOMITING Last administered on 04/26/17 20:25; Admin Dose 4 MG; Start 04/13/17 at 21:30 Guaifenesin/ Dextromethorphan (Robitussin Dm Liquid Cup) 5 ml Q4H PRN PO COUGH Last administered on 04/19/17 05:09; Admin Dose 5 ML; Start 04/15/17 at 16:30 Pantoprazole (Protonix Tab) 40 mg DAILY@06 PO Last administered on 04/27/17 05 :31; Admin Dose 40 MG; Start 04/17/17 at 06:00 Acetaminophen (Tylenol Tab) 500 mg Q6H PRN PO PAIN AND OR ELEVATED TEMP Last administered on 04/24/17 19:35; Admin Dose 500 MG; Start 04/17/17 at 03:00 Magnesium Hydroxide 30 ml 30 ml DAILY PRN PO CONSTIPATION; Start 04/17/17 at 11 :30 Ampicillin Sodium/ Sulbactam Sodium (Unasyn 1.5gm/NS (Pmx)) 50 ml @ 100 mls/hr Q6 IVPB Last administered on 04/27/17 05:32; Admin Dose 100 MLS/HR; Start at 18:00 Furosemide (Lasix) 20 mg DAILY@06 IV Last administered on 04/23/17 05:44; Admin Dose 20 MG; Start 04/18/17 at 18:30; Status Future Hold Fentanyl (Duragesic 12 Mcg/Hr Patch) 1 patch Q72H TRANSDERM Last administered on 04/25/17 05:45; Admin Dose 1 PATCH; Start 04/22/17 at 05:30 Morphine Sulfate (morphine) 1 mg Q4H PRN IV SEVERE PAIN LEVEL 7-10 Last administered on 04/26/17 20:25; Admin Dose 1 MG; Start 04/22/17 at 17:30 Metoclopramide HCl (Reglan) 10 mg Q6H PRN IV NAUSEA Last administered on 21:09; Admin Dose 10 MG; Start 04/22/17 at 21:00 Enoxaparin Sodium (Lovenox) 30 mg DAILY SC Last administered on 04/26/17 08:15 ; Admin Dose 30 MG; Start 04/23/17 at 20:30 Acetaminophen (Tylenol Supp) [address] FEVER GREATER THAN 100.6; Start 04/23/17 at 20:30 Acetaminophen (Tylenol Tab) 650 mg Q6H PRN PO PAIN AND OR ELEVATED TEMP Last administered on 04/27/17 05:32; Admin Dose 650 MG; Start 04/23/17 at 20:30 Lactobacillus Acidophilus/ Rhamnosus (Culturelle) 1 cap BID PO Last administered on 04/27/17 00:36; Admin Dose 1 CAP; Start 04/24/17 at 11:30 Diagnostic Test (Pha) (Accu-Chek) 1 ea 02 XX ; Start 04/26/17 at 02:00 LINDA GARCIA Apr 27, 2017 11:04
[2017-04-27] MEDS ORDERED: LIDOCAINE 1% (MDV) 20 ML INJ ONE (15:15)
[2017-04-27] MEDS ORDERED: EPHEDrine SULFATE 50 MG/5 ML SYG IV PRN (16:00)
[2017-04-27] MEDS ORDERED: hydrALAzine 20 MG INJ IV PRN (16:00)
[2017-04-27] MEDS ORDERED: ONDANSETRON 4 MG INJ IV PRN (16:00)
[2017-04-27] MEDS ORDERED: INSULIN ASPART [NOVOLOG] 3 ML PEN SC ONE (16:00)
[2017-04-27] MEDS ORDERED: FENTAnyl 50 MCG/ML VIAL IV PRN ×3 (16:00)
--- NOTE | 2017-04-27 16:24 | PN ---
Date/Time of Note Date/Time of Note DATE: 04/27/17 TIME: 16:23 Assessment/Plan Lines/Catheters IV Catheter Type (from Nrsg): Saline Lock Khan in Place (from Nrsg): No Assessment/Plan Chief Complaint/Hosp Course 66-year-old female with a history of colon/rectal ca presenting with sepsis due to liver abscesses, whose course has been complicated by mild hypoxemic resp insufficiency with enlarging R.> L effusions. SP CT placement still with large effusion will need VATS decortication if she does not respond to CT Sxn Continue antibiotics per ID may need to defer thoracic surgery until liver abscess resolved. Continue percutaneous drainage of abdominal abscess Problems: Subjective 24 Hr Interval Summary Constitutional: improved Pain Control: mild Exam/Review of Systems Vital Signs Vitals Vital Signs Date Time Temp Pulse Resp B/P Pulse Ox O2 Delivery O2 Flow Rate FiO2 04/27/17 15:54 6.0 04/27/17 12:00 74 04/27/17 11:50 98.0 19 114/64 97 04/27/17 08:05 Simple Mask Intake and Output 04/26/17 04/26/17 04/27/17 15:00 23:00 07:00 Intake Total 450 ml 250 ml Output Total 140 ml 0 ml 30 ml Balance -140 ml 450 ml 220 ml Exam ENMT: mucosa pink and moist, nl external ears & nose, nl lips & teeth, nl nasal mucosa & septum Neck: non-tender, supple Respiratory: clear to auscultation, normal air movement Cardiovascular: nl pulses, regular rate and rhythm Gastrointestinal: nl liver, spleen, non-tender, soft Results Result Diagram: 04/27/17 0700 04/27/17 0700 MALEADRIAN KEN MD Apr 27, 2017 16:24
--- NOTE | 2017-04-27 16:36 | RADRPT ---
PROCEDURE: CT guided liver abscess drainage. CLINICAL INDICATION: Multiloculated liver abscess. TECHNIQUE: Informed consent was obtained. The procedure, risks, benefits, complications and alternatives were explained to the patient or the patient's family. Risks including bleeding and infection were explai alan. The patient or the patient's family understood and was willing to proceed. A procedural pause was performed. The patient's name, date of , and procedure to be performed were verified. One or more of the following dose reduction techniques were used: Automated exposure control, adjustmen t of the mA and/or kV according to patient size, use of iterative reconstruction technique. Using local anesthetic, sterile technique and CT guidance, a 19-gauge Yueh needle was advanced into the fluid collection in the left hepatic lobe superiorly. CT scan was performed confirming position . Purulent fluid was also aspirated confirming position. The needle from the Yueh catheter was rem randy, leaving the Yueh catheter in place within the fluid collection. A 0.035-inch Amplatz guidewir e was advanced through the Yueh catheter into the fluid collection. The Yueh catheter was removed. The tract was dilated to 8-Gambian. An 8.5 Gambian multipurpose drainage catheter was advanced over the guidewire into the fluid collection. The guidewire was removed. Additional scanning was perfor med confirming position. The catheter was then sutured to the patient's skin with 2-0 silk. Approx imately 40 ml of purulent fluid was aspirated. The catheter was connected to a drainage bag. A cortney ssing was applied. The patient tolerated procedure well. COMPARISON: None. FINDINGS: Final images demonstrate the drainage catheter in satisfactory position within the liver abscess. IMPRESSION: 1. Successful CT guided abdominal fluid collection drainage. RPTAT: QQ .Logan Decker MD, MD Date Time Electronically viewed and signed by .Logan Decker MD, MD on 04/27/2017 16:36 .R/
--- NOTE | 2017-04-27 18:35 | CONS ---
Date/Time of Note Date/Time of Note DATE: 04/27/17 TIME: 18:35 Assessment/Plan Assessment/Plan Chief Complaint/Hosp Course Problems: Additional Assessment/Plan 1. Acute hyponatremia 2/2 Hypovolemic hyponatremia 2. sepsis due to liver abscess 3. Hepatic abscess oN CT scan s/p CT guided drainage on 04/15/17 and 04/23/17 4. Acute transaminitis 5. h/o Colon CA s/p previous Surgery 6. Hypokalemia 7. Hyponatremia Plan : toleratign po diet, Na 132 Cr normal, good adequate urine output Cr stable will follow up Consultation Date/Type/Reason Admit Date/Time Apr 13, 2017 at 19:51 Initial Consult Date 04/13/17 Type of Consultation: NEPHROLOGY Referring Provider: DARREL BURT MD Exam/Review of Systems Vital Signs Vitals Vital Signs Date Time Temp Pulse Resp B/P Pulse Ox O2 Delivery O2 Flow Rate FiO2 04/27/17 17:44 93 04/27/17 16:46 21 104/66 96 Nasal Cannula 2.0 04/27/17 16:36 97.7 Intake and Output 04/26/17 04/26/17 04/27/17 15:00 23:00 07:00 Intake Total 450 ml 250 ml Output Total 140 ml 0 ml 30 ml Balance -140 ml 450 ml 220 ml Results Result Diagram: 04/27/17 0700 04/27/17 0700 Results 24 hrs Laboratory Tests Test 04/26/17 20:50 04/27/17 07:00 04/27/17 08:41 04/27/17 11:57 Bedside Glucose 133 106 83 White Blood Count 10.6 # Red Blood Count 2.73 L Hemoglobin 8.1 L Hematocrit 25.3 L Mean Corpuscular Volume 92.7 Mean Corpuscular Hemoglobin 29.7 Mean Corpuscular Hemoglobin Concent 32.0 Red Cell Distribution Width 13.8 Platelet Count 264 Mean Platelet Volume 8.9 Neutrophils % 76.5 Lymphocytes % 10.4 L Monocytes % 11.5 H Eosinophils % 0.6 Basophils % 0.4 Nucleated Red Blood Cells % 0.0 Neutrophils # 8.1 H Lymphocytes # 1.1 Monocytes # 1.2 H Eosinophils # 0.1 Basophils # 0.0 Nucleated Red Blood Cells # 0.0 Sodium Level 132 L Potassium Level 4.1 Chloride Level 97 Carbon Dioxide Level 34 H Anion Gap 5 L Blood Urea Nitrogen 8 Creatinine 0.37 L Glucose Level 109 Calcium Level 8.7 Test 04/27/17 14:18 04/27/17 17:08 Bedside Glucose 87 80 Medications Medications Current Medications Miscellaneous Information 1 ea NOTE XX ; Start 04/13/17 at 21:30 Glucose (Glutose) 15 gm Q15M PRN PO DECREASED GLUCOSE; Start 04/13/17 at 21:30 Glucose (Glutose) 22.5 gm Q15M PRN PO DECREASED GLUCOSE; Start 04/13/17 at 21: 30 Dextrose (D50w Syringe) 25 ml Q15M PRN IV DECREASED GLUCOSE; Start 04/13/17 at 21:30 Dextrose (D50w Syringe) 50 ml Q15M PRN IV DECREASED GLUCOSE; Start 04/13/17 at 21:30 Glucagon (Glucagen) 1 mg Q15M PRN IM DECREASED GLUCOSE; Start 04/13/17 at 21:30 Glucose (Glutose) 15 gm Q15M PRN BUCCAL DECREASED GLUCOSE; Start 04/13/17 at 21 :30 Ondansetron HCl (Zofran Inj) 4 mg Q6 PRN IV NAUSEA AND/OR VOMITING Last administered on 04/26/17 20:25; Admin Dose 4 MG; Start 04/13/17 at 21:30 Guaifenesin/ Dextromethorphan (Robitussin Dm Liquid Cup) 5 ml Q4H PRN PO COUGH Last administered on 04/19/17 05:09; Admin Dose 5 ML; Start 04/15/17 at 16:30 Pantoprazole (Protonix Tab) 40 mg DAILY@06 PO Last administered on 04/27/17 05 :31; Admin Dose 40 MG; Start 04/17/17 at 06:00 Acetaminophen (Tylenol Tab) 500 mg Q6H PRN PO PAIN AND OR ELEVATED TEMP Last administered on 04/24/17 19:35; Admin Dose 500 MG; Start 04/17/17 at 03:00 Magnesium Hydroxide 30 ml 30 ml DAILY PRN PO CONSTIPATION; Start 04/17/17 at 11 :30 Ampicillin Sodium/ Sulbactam Sodium (Unasyn 1.5gm/NS (Pmx)) 50 ml @ 100 mls/hr Q6 IVPB Last administered on 04/27/17 17:51; Admin Dose 100 MLS/HR; Start at 18:00 Furosemide (Lasix) 20 mg DAILY@06 IV Last administered on 04/23/17 05:44; Admin Dose 20 MG; Start 04/18/17 at 18:30; Status Future Hold Fentanyl (Duragesic 12 Mcg/Hr Patch) 1 patch Q72H TRANSDERM Last administered on 04/25/17 05:45; Admin Dose 1 PATCH; Start 04/22/17 at 05:30 Morphine Sulfate (morphine) 1 mg Q4H PRN IV SEVERE PAIN LEVEL 7-10 Last administered on 04/26/17 20:25; Admin Dose 1 MG; Start 04/22/17 at 17:30 Metoclopramide HCl (Reglan) 10 mg Q6H PRN IV NAUSEA Last administered on 21:09; Admin Dose 10 MG; Start 04/22/17 at 21:00 Enoxaparin Sodium (Lovenox) 30 mg DAILY SC Last administered on 04/26/17 08:15 ; Admin Dose 30 MG; Start 04/23/17 at 20:30 Acetaminophen (Tylenol Supp) 650 mg Q6H PRN [place] FEVER GREATER THAN 100.6; Start 04/23/17 at 20:30 Acetaminophen (Tylenol Tab) 650 mg Q6H PRN PO PAIN AND OR ELEVATED TEMP Last administered on 04/27/17 13:40; Admin Dose 650 MG; Start 04/23/17 at 20:30 Lactobacillus Acidophilus/ Rhamnosus (Culturelle) 1 cap BID PO Last administered on 04/27/17 00:36; Admin Dose 1 CAP; Start 04/24/17 at 11:30 Diagnostic Test (Pha) (Accu-Chek) 1 ea 02 XX ; Start 04/26/17 at 02:00 NGOC GARZA MD Apr 27, 2017 18:35
--- NOTE | 2017-04-27 18:50 | PN ---
Date/Time of Note Date/Time of Note DATE: 04/27/17 TIME: 18:44 Assessment/Plan VTE Prophylaxis VTE Prophylaxis Intervention: SCD's Lines/Catheters [facility] Urinary Cath still in place: No Assessment/Plan Chief Complaint/Hosp Course Patient status status post CT-guided liver abscess drainage today, patient is comfortable on supplemental oxygen via nasal cannula, tolerates diet well without nausea. Assessment/Plan - Bilateral pleural effusions right more than left, status post right thoracentesis 04/20. S/p right chest tube insertion on 04/[address] Jackson, vascular surgery. S/p right thoracentesis 04/26. - Acute respiratory failure secondary to #1, Dr. Damico is following in pulmonology consultation continue oxygen oxygen supplementation - Severe sepsis 2/2 to liver abscess. Continue antibiotics per ID. Dr. Diana is following infection disease consultation - Liver abscess unchanged per recent CT, s/p CT guided drainage 04/15/2017, s/p CT guided percutaneous drainage of liver abscess 04/23, status post CT-guided liver abscess drainage 04/27 - Normocytic anemia requiring blood transfusion - Hx of rectal CA s/p Low anterior resection 08/29/2016 Further recommendations based on clinical course. Plan of care discussed with Dr. Dior Problems: Exam/Review of Systems Vital Signs Vitals Vital Signs Date Time Temp Pulse Resp B/P Pulse Ox O2 Delivery O2 Flow Rate FiO2 04/27/17 17:44 93 04/27/17 16:46 21 104/66 96 Nasal Cannula 2.0 04/27/17 16:36 97.7 Intake and Output 04/26/17 04/26/17 04/27/17 15:00 23:00 07:00 Intake Total 450 ml 250 ml Output Total 140 ml 0 ml 30 ml Balance -140 ml 450 ml 220 ml Exam Constitutional: alert Neck: supple Respiratory: diminished breath sounds Cardiovascular: nl pulses Gastrointestinal: other (Hepatic drain), soft Extremities: normal pulses Constitutional: alert, oriented, well developed Results Result Diagram: 04/27/17 0700 04/27/17 0700 Results 24 hrs Laboratory Tests Test 04/26/17 20:50 04/27/17 07:00 04/27/17 08:41 04/27/17 11:57 Bedside Glucose 133 106 83 White Blood Count 10.6 # Red Blood Count 2.73 L Hemoglobin 8.1 L Hematocrit 25.3 L Mean Corpuscular Volume 92.7 Mean Corpuscular Hemoglobin 29.7 Mean Corpuscular Hemoglobin Concent 32.0 Red Cell Distribution Width 13.8 Platelet Count 264 Mean Platelet Volume 8.9 Neutrophils % 76.5 Lymphocytes % 10.4 L Monocytes % 11.5 H Eosinophils % 0.6 Basophils % 0.4 Nucleated Red Blood Cells % 0.0 Neutrophils # 8.1 H Lymphocytes # 1.1 Monocytes # 1.2 H Eosinophils # 0.1 Basophils # 0.0 Nucleated Red Blood Cells # 0.0 Sodium Level 132 L Potassium Level 4.1 Chloride Level 97 Carbon Dioxide Level 34 H Anion Gap 5 L Blood Urea Nitrogen 8 Creatinine 0.37 L Glucose Level 109 Calcium Level 8.7 Test 04/27/17 14:18 04/27/17 17:08 Bedside Glucose 87 80 Medications Medications Current Medications Miscellaneous Information 1 ea NOTE XX ; Start 04/13/17 at 21:30 Glucose (Glutose) 15 gm Q15M PRN PO DECREASED GLUCOSE; Start 04/13/17 at 21:30 Glucose (Glutose) 22.5 gm Q15M PRN PO DECREASED GLUCOSE; Start 04/13/17 at 21: 30 Dextrose (D50w Syringe) 25 ml Q15M PRN IV DECREASED GLUCOSE; Start 04/13/17 at 21:30 Dextrose (D50w Syringe) 50 ml Q15M PRN IV DECREASED GLUCOSE; Start 04/13/17 at 21:30 Glucagon (Glucagen) 1 mg Q15M PRN IM DECREASED GLUCOSE; Start 04/13/17 at 21:30 Glucose (Glutose) 15 gm Q15M PRN BUCCAL DECREASED GLUCOSE; Start 04/13/17 at 21 :30 Ondansetron HCl (Zofran Inj) 4 mg Q6 PRN IV NAUSEA AND/OR VOMITING Last administered on 04/26/17 20:25; Admin Dose 4 MG; Start 04/13/17 at 21:30 Guaifenesin/ Dextromethorphan (Robitussin Dm Liquid Cup) 5 ml Q4H PRN PO COUGH Last administered on 04/19/17 05:09; Admin Dose 5 ML; Start 04/15/17 at 16:30 Pantoprazole (Protonix Tab) 40 mg DAILY@06 PO Last administered on 04/27/17 05 :31; Admin Dose 40 MG; Start 04/17/17 at 06:00 Acetaminophen (Tylenol Tab) 500 mg Q6H PRN PO PAIN AND OR ELEVATED TEMP Last administered on 04/24/17 19:35; Admin Dose 500 MG; Start 04/17/17 at 03:00 Magnesium Hydroxide 30 ml 30 ml DAILY PRN PO CONSTIPATION; Start 04/17/17 at 11 :30 Ampicillin Sodium/ Sulbactam Sodium (Unasyn 1.5gm/NS (Pmx)) 50 ml @ 100 mls/hr Q6 IVPB Last administered on 04/27/17 17:51; Admin Dose 100 MLS/HR; Start at 18:00 Furosemide (Lasix) 20 mg DAILY@06 IV Last administered on 04/23/17 05:44; Admin Dose 20 MG; Start 04/18/17 at 18:30; Status Future Hold Fentanyl (Duragesic 12 Mcg/Hr Patch) 1 patch Q72H TRANSDERM Last administered on 04/25/17 05:45; Admin Dose 1 PATCH; Start 04/22/17 at 05:30 Morphine Sulfate (morphine) 1 mg Q4H PRN IV SEVERE PAIN LEVEL 7-10 Last administered on 04/26/17 20:25; Admin Dose 1 MG; Start 04/22/17 at 17:30 Metoclopramide HCl (Reglan) 10 mg Q6H PRN IV NAUSEA Last administered on 21:09; Admin Dose 10 MG; Start 04/22/17 at 21:00 Enoxaparin Sodium (Lovenox) 30 mg DAILY SC Last administered on 04/26/17 08:15 ; Admin Dose 30 MG; Start 04/23/17 at 20:30 Acetaminophen (Tylenol Supp) 650 mg Q6H PRN [place] FEVER GREATER THAN 100.6; Start 04/23/17 at 20:30 Acetaminophen (Tylenol Tab) 650 mg Q6H PRN PO PAIN AND OR ELEVATED TEMP Last administered on 04/27/17 13:40; Admin Dose 650 MG; Start 04/23/17 at 20:30 Lactobacillus Acidophilus/ Rhamnosus (Culturelle) 1 cap BID PO Last administered on 04/27/17 00:36; Admin Dose 1 CAP; Start 04/24/17 at 11:30 Diagnostic Test (Pha) (Accu-Chek) 1 XX ; Start 04/26/17 at 02:00 WINDY EMERY Apr 27, 2017 18:50
--- NOTE | 2017-04-27 19:46 | CONS ---
Date/Time of Note Date/Time of Note DATE: 04/27/17 TIME: 19:44 Assessment/Plan Assessment/Plan Chief Complaint/Hosp Course IMP: 1.Hypotension-now improved/stable 2.abnl ecg-with ST elevations anterior-negative trop x 3/NL EF by echo. NO CP 3.Liver abscess s/p CT guided drainage 4.H/O lung ca s/p resection with lung nodules by CT? 5.Lung nodules 6. Hyponatremia 7. Effusion s/p CT with ongoing effusion Recc: -Now back ontele -Continue abx's -F/U cx data -Follow BP closely -pain control -Hold lasix and follow volume status/NA closely -Follow CT output with possible need for vats/decortication Problems: Consultation Date/Type/Reason Admit Date/Time Apr 13, 2017 at 19:51 Initial Consult Date 04/13/17 Type of Consultation: cardiology Reason for Consultation chest pain Referring Provider: DARREL BURT MD Exam/Review of Systems Vital Signs Vitals Vital Signs Date Time Temp Pulse Resp B/P Pulse Ox O2 Delivery O2 Flow Rate FiO2 04/27/17 19:42 98.8 95 18 128/68 96 04/27/17 16:46 Nasal Cannula 2.0 Intake and Output 04/26/17 04/26/17 04/27/17 15:00 23:00 07:00 Intake Total 450 ml 250 ml Output Total 140 ml 0 ml 30 ml Balance -140 ml 450 ml 220 ml Exam Review of Systems: CONSTITUTIONAL: No fevers, chills. PULMONARY: No sob CARDIOVASCULAR: No chest pain/palpitations GASTROINTESTINAL: No nausea/vomiting. GENITOURINARY: No hematuria/dysuria. MUSCULOSKELETAL: No myagias/arthalgias. PSYCHIATRIC: The patient denies depression. NEUROLOGIC: No weakness Constitutional: alert Psych: no complaints Head: normocephalic ENMT: mucosa pink and moist Neck: supple Respiratory: other (CT in place) Cardiovascular: regular rate and rhythm Gastrointestinal: non-tender, soft Musculoskeletal: muscle weakness (generalized) Extremities: edema (nonr) 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: lethargic Results Result Diagram: 04/27/17 0700 04/27/17 0700 Results 24 hrs Laboratory Tests Test 04/26/17 20:50 04/27/17 07:00 04/27/17 08:41 04/27/17 11:57 Bedside Glucose 133 106 83 White Blood Count 10.6 # Red Blood Count 2.73 L Hemoglobin 8.1 L Hematocrit 25.3 L Mean Corpuscular Volume 92.7 Mean Corpuscular Hemoglobin 29.7 Mean Corpuscular Hemoglobin Concent 32.0 Red Cell Distribution Width 13.8 Platelet Count 264 Mean Platelet Volume 8.9 Neutrophils % 76.5 Lymphocytes % 10.4 L Monocytes % 11.5 H Eosinophils % 0.6 Basophils % 0.4 Nucleated Red Blood Cells % 0.0 Neutrophils # 8.1 H Lymphocytes # 1.1 Monocytes # 1.2 H Eosinophils # 0.1 Basophils # 0.0 Nucleated Red Blood Cells # 0.0 Sodium Level 132 L Potassium Level 4.1 Chloride Level 97 Carbon Dioxide Level 34 H Anion Gap 5 L Blood Urea Nitrogen 8 Creatinine 0.37 L Glucose Level 109 Calcium Level 8.7 Test 04/27/17 14:18 04/27/17 17:08 Bedside Glucose 87 80 Medications Medications Current Medications Miscellaneous Information 1 ea NOTE XX ; Start 04/13/17 at 21:30 Glucose (Glutose) 15 gm Q15M PRN PO DECREASED GLUCOSE; Start 04/13/17 at 21:30 Glucose (Glutose) 22.5 gm Q15M PRN PO DECREASED GLUCOSE; Start 04/13/17 at 21: 30 Dextrose (D50w Syringe) 25 ml Q15M PRN IV DECREASED GLUCOSE; Start 04/13/17 at 21:30 Dextrose (D50w Syringe) 50 ml Q15M PRN IV DECREASED GLUCOSE; Start 04/13/17 at 21:30 Glucagon (Glucagen) 1 mg Q15M PRN IM DECREASED GLUCOSE; Start 04/13/17 at 21:30 Glucose (Glutose) 15 gm Q15M PRN BUCCAL DECREASED GLUCOSE; Start 04/13/17 at 21 :30 Ondansetron HCl (Zofran Inj) 4 mg Q6 PRN IV NAUSEA AND/OR VOMITING Last administered on 04/26/17 20:25; Admin Dose 4 MG; Start 04/13/17 at 21:30 Guaifenesin/ Dextromethorphan (Robitussin Dm Liquid Cup) 5 ml Q4H PRN PO COUGH Last administered on 04/19/17 05:09; Admin Dose 5 ML; Start 04/15/17 at 16:30 Pantoprazole (Protonix Tab) 40 mg DAILY@06 PO Last administered on 04/27/17 05 :31; Admin Dose 40 MG; Start 04/17/17 at 06:00 Acetaminophen (Tylenol Tab) 500 mg Q6H PRN PO PAIN AND OR ELEVATED TEMP Last administered on 04/24/17 19:35; Admin Dose 500 MG; Start 04/17/17 at 03:00 Magnesium Hydroxide 30 ml 30 ml DAILY PRN PO CONSTIPATION; Start 04/17/17 at 11 :30 Ampicillin Sodium/ Sulbactam Sodium (Unasyn 1.5gm/NS (Pmx)) 50 ml @ 100 mls/hr Q6 IVPB Last administered on 04/27/17 17:51; Admin Dose 100 MLS/HR; Start at 18:00 Furosemide (Lasix) 20 mg DAILY@06 IV Last administered on 04/23/17 05:44; Admin Dose 20 MG; Start 04/18/17 at 18:30; Status Future Hold Fentanyl (Duragesic 12 Mcg/Hr Patch) 1 patch Q72H TRANSDERM Last administered on 04/25/17 05:45; Admin Dose 1 PATCH; Start 04/22/17 at 05:30 Morphine Sulfate (morphine) 1 mg Q4H PRN IV SEVERE PAIN LEVEL 7-10 Last administered on 04/26/17 20:25; Admin Dose 1 MG; Start 04/22/17 at 17:30 Metoclopramide HCl (Reglan) 10 mg Q6H PRN IV NAUSEA Last administered on 21:09; Admin Dose 10 MG; Start 04/22/17 at 21:00 Enoxaparin Sodium (Lovenox) 30 mg DAILY SC Last administered on 04/26/17 08:15 ; Admin Dose 30 MG; Start 04/23/17 at 20:30 Acetaminophen (Tylenol Supp) 650 mg Q6H PRN [place] FEVER GREATER THAN 100.6; Start 04/23/17 at 20:30 Acetaminophen (Tylenol Tab) 650 mg Q6H PRN PO PAIN AND OR ELEVATED TEMP Last administered on 04/27/17 13:40; Admin Dose 650 MG; Start 04/23/17 at 20:30 Lactobacillus Acidophilus/ Rhamnosus (Culturelle) 1 cap BID PO Last administered on 04/27/17 00:36; Admin Dose 1 CAP; Start 04/24/17 at 11:30 Diagnostic Test (Pha) (Accu-Chek) 1 ea 02 XX ; Start 04/26/17 at 02:00 LILIANA BARKSDALE Apr 27, 2017 19:46
[2017-04-28] VITALS (11 sets, daily range): BP systolic 105–130; BP diastolic 58–79; PULSE 89–99; RESP 17–18
[2017-04-28] MEDS: AMPICILLIN/SULB 1.5GM/NS (PMX) 50 ML IVPB SCH ×4 (00:07→17:29)
--- NOTE | 2017-04-28 01:06 | PN ---
DATE: 04/27/2017 SUBJECTIVE: She feels better. She states that her respiration is much better after yesterday removing some fluid from her lungs. No nausea. No vomiting. She has tolerated diet. She has had bowel movements. Minimal abdominal pain. OBJECTIVE: GENERAL: Alert, awake, and oriented x3. VITAL SIGNS: Temperature 98.8, heart rate 95, respiration 18, blood pressure 128/68, saturation 96 percent room air. LABS: Today WBC dropped to 10,600. Neutrophils 76 percent, which is normal range, hemoglobin 8.9, hematocrit 25.3. Chemistry; sodium, potassium, BUN, and creatinine are within normal limits. There are 2 pigtail drains going through the anterior abdominal wall into the liver abscess cavities, but they are not draining that much. The drainage is serosanguineous at this time. There is a chest tube also on the right side of the pleural space, is not draining that much. ASSESSMENT AND PLAN: This is a 66-year-old female, who is admitted with liver abscess, which was loculated multiloculated and lobulated and after a few days, she also developed a right pleural effusion, so much that it does cause some respiratory hypoxemia for the patient. Twice it has been aspirated around 210 mL, and a second time, which was last Thursday, which was 2 days ago, yesterday 250 mL was aspirated, and the patient feels much better after that. There was a lot of fluid in the right pleural space. The liver abscesses 3 times have been drained with a pigtail, and it appears that every time they have to proceed with draining [address] Martin has ruled out the possibility of open drainage of the liver abscess in this patient. Therefore, we are trying to achieve complete drainage with multiple aspiration by IR every few days. Dictated By: Osmani Ceballos MD /rachel/jarek /Document#: [id number]
[2017-04-28] MEDS: ACCU-CHEK XX SCH (02:00)
[2017-04-28] MEDS: ACETAMINOPHEN 325 MG TAB PO PRN (02:36)
[2017-04-28] MEDS: PANTOPRAZOLE (EC) 40 MG TAB PO SCH (05:12)
[2017-04-28] MEDS: FENTAnyl PATCH 12 MCG/HR TRANSDERM SCH (07:12)
[2017-04-28] MEDS: Insulin NOVOLOG SS MILD Algorithm (SS with meals and bedtime) SC SCH ×4 (07:30→20:32)
[2017-04-28] MEDS: LACTOBACILLUS RHAMNOSUS CAP PO SCH ×2 (08:24→20:33)
[2017-04-28] MEDS: ENOXAPARIN 30 MG/0.3 ML SYG SC SCH (08:31)
[2017-04-28 08:39] LABS: BASOPHILS % 0.4 % (0.0-2.0); EOSINOPHILS # 0.1 10^3/ul (0.0-0.5); EOSINOPHILS % 0.5 % (0.0-7.0); HEMOGLOBIN 8.8 g/dl (12.0-16.0); LYMPHOCYTES # 1.4 10^3/ul (0.8-2.9); LYMPHOCYTES % 13.3 % (15.0-51.0); MEAN CORPUSCULAR HEMOGLOBIN 30.7 pg (29.0-33.0); MEAN CORPUSCULAR HGB CONC 32.6 g/dl (32.0-37.0); MEAN CORPUSCULAR VOLUME 94.1 fl (82.0-101.0); MEAN PLATELET VOLUME 8.7 fl (7.4-10.4); MONOCYTE # 1.5 10^3/ul (0.3-0.9); MONOCYTES % 13.6 % (0.0-11.0); NEUTROPHIL # 7.6 10^3/ul (1.6-7.5); NEUTROPHILS % 71.5 % (39.0-77.0); PLATELET COUNT 359 10^3/UL (140-415); RED BLOOD COUNT 2.87 10^6/ul (4.20-5.40); RED CELL DISTRIBUTION WIDTH 13.7 % (11.5-14.5); WHITE BLOOD COUNT 10.7 10^3/ul (4.8-10.8)
[2017-04-28 09:13] LABS: ALBUMIN 2.5 g/dl (3.3-4.9); ALBUMIN/GLOBULIN RATIO 0.64; BILIRUBIN,INDIRECT 0.3 mg/dl (0-1.1); BILIRUBIN,TOTAL 0.3 mg/dl (0.2-1.3); CREATININE 0.49 mg/dl (0.44-1.00); POTASSIUM 4.4 mmol/L (3.5-5.1); TOTAL PROTEIN 6.4 g/dl (6.1-8.1)
--- NOTE | 2017-04-28 10:08 | CONS ---
Date/Time of Note Date/Time of Note DATE: 04/28/17 TIME: 10:07 Assessment/Plan Assessment/Plan Chief Complaint/Hosp Course - Severe sepsis due to liver abscess, loculated pleural effusion - multiloculated liver abscess s/p CT guided drainage catheter placement 2016, 04/23/2017; 04/15/2017 gamma hemolytic strep, 04/23/2017 alpha hemolytic strep - Loculated pleural effusion likely secondary to hepatic process/Hepatic hydrothorax, R>L, s/p R thoracentesis on 04/20/2017, s/p chest tube placement on 04/22/2017 - Hypotension - resolved with IVF - Normocytic anemia requiring blood transfusion - Coagulopathy - improved - Transaminitis - slowly improving - Hyponatremia on admission - CoNS in urine culture with trivial pyuria, likely contaminant; pt asymptomatic - Hx of rectal CA s/p Low anterior resection 08/29/2016 - Severe protein calorie malnutrition - allergy to vancomycin recommendations: - lactic acid and procalcitonin now - continue amp/sulbactam (04/18/2017-); s/p linezolid and pip/tazo (04/13-2016). low threshold to broaden abx; Linezolid/caspo/micafungin - Pt requires a long-term antibiotic administration;we recommend repeat imaging prior to antibiotic cessation to ensure resolution - check weekly CBC and BMP while Pt's on long-term antibiotic management d/w Pt Problems: Consultation Date/Type/Reason Admit Date/Time Apr 13, 2017 at 19:51 Initial Consult Date 04/21/17 Type of Consultation: ID Referring Provider: DARREL BURT MD 24 HR Interval Summary Constitutional: no complaints, other (lethargic and limited) Detailed Summary Respiratory: no complaints, No cough, No pain Cardiovascular: no complaints Gastrointestinal: no complaints Genitourinary: no complaints Musculoskeletal: no complaints Skin: no complaints Exam/Review of Systems Vital Signs Vitals Vital Signs Date Time Temp Pulse Resp B/P Pulse Ox O2 Delivery O2 Flow Rate FiO2 04/28/17 08:35 93 04/28/17 08:06 98.3 17 105/58 97 04/27/17 20:35 2.0 04/27/17 16:46 Nasal Cannula Intake and Output 04/27/17 04/27/17 04/28/17 15:00 23:00 07:00 Intake Total 50 ml 220 ml 350 ml Output Total 5 ml 10 ml 0 ml Balance 45 ml 210 ml 350 ml Exam Constitutional: frail, other (lethargic) Psych: other (flat affect) Head: atraumatic, normocephalic Eyes: nl conjunctiva, nl lids ENMT: nl external ears & nose, nl nasal mucosa & septum Neck: supple Respiratory: diminished breath sounds, other (chest tube) Cardiovascular: nl pulses, regular rate and rhythm Gastrointestinal: non-tender, other (two external drainage catheters-bag in place), soft Musculoskeletal: nl extremities to inspection Extremities: No edema 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: lethargic Skin: nl turgor Results Result Diagram: 04/28/1771804/28/17718 Results 24 hrs Laboratory Tests Test 04/27/17 11:57 04/27/17 14:18 04/27/17 17:08 04/27/17 20:29 Bedside Glucose 83 87 80 117 Test 04/28/17 07:19 04/28/17 08:19 White Blood Count 10.7 Red Blood Count 2.87 L Hemoglobin 8.8 L Hematocrit 27.0 L Mean Corpuscular Volume 94.1 Mean Corpuscular Hemoglobin 30.7 Mean Corpuscular Hemoglobin Concent 32.6 Red Cell Distribution Width 13.7 Platelet Count 359 # Mean Platelet Volume 8.7 Neutrophils % 71.5 Lymphocytes % 13.3 L Monocytes % 13.6 H Eosinophils % 0.5 Basophils % 0.4 Nucleated Red Blood Cells % 0.0 Neutrophils # 7.6 H Lymphocytes # 1.4 Monocytes # 1.5 H Eosinophils # 0.1 Basophils # 0.0 Nucleated Red Blood Cells # 0.0 Sodium Level 133 L Potassium Level 4.4 Chloride Level 95 L Carbon Dioxide Level 31 Anion Gap 11 Blood Urea Nitrogen 11 Creatinine 0.49 Glucose Level 85 Calcium Level 9.0 Total Bilirubin 0.3 Direct Bilirubin 0.00 Indirect Bilirubin 0.3 Aspartate Amino Transf (AST/SGOT) 31 Alanine Aminotransferase (ALT/SGPT) 43 Alkaline Phosphatase 193 H Total Protein 6.4 Albumin 2.5 L Globulin 3.90 H Albumin/Globulin Ratio 0.64 Bedside Glucose 86 Medications Medications Current Medications Miscellaneous Information 1 ea NOTE XX ; Start 04/13/17 at 21:30 Glucose (Glutose) 15 gm Q15M PRN PO DECREASED GLUCOSE; Start 04/13/17 at 21:30 Glucose (Glutose) 22.5 gm Q15M PRN PO DECREASED GLUCOSE; Start 04/13/17 at 21: 30 Dextrose (D50w Syringe) 25 ml Q15M PRN IV DECREASED GLUCOSE; Start 04/13/17 at 21:30 Dextrose (D50w Syringe) 50 ml Q15M PRN IV DECREASED GLUCOSE; Start 04/13/17 at 21:30 Glucagon (Glucagen) 1 mg Q15M PRN IM DECREASED GLUCOSE; Start 04/13/17 at 21:30 Glucose (Glutose) 15 gm Q15M PRN BUCCAL DECREASED GLUCOSE; Start 04/13/17 at 21 :30 Ondansetron HCl (Zofran Inj) 4 mg Q6 PRN IV NAUSEA AND/OR VOMITING Last administered on 04/26/17 20:25; Admin Dose 4 MG; Start 04/13/17 at 21:30 Guaifenesin/ Dextromethorphan (Robitussin Dm Liquid Cup) 5 ml Q4H PRN PO COUGH Last administered on 04/19/17 05:09; Admin Dose 5 ML; Start 04/15/17 at 16:30 Pantoprazole (Protonix Tab) 40 mg DAILY@06 PO Last administered on 04/28/17 05 :12; Admin Dose 40 MG; Start 04/17/17 at 06:00 Acetaminophen (Tylenol Tab) 500 mg Q6H PRN PO PAIN AND OR ELEVATED TEMP Last administered on 04/24/17 19:35; Admin Dose 500 MG; Start 04/17/17 at 03:00 Magnesium Hydroxide 30 ml 30 ml DAILY PRN PO CONSTIPATION; Start 04/17/17 at 11 :30 Ampicillin Sodium/ Sulbactam Sodium (Unasyn 1.5gm/NS (Pmx)) 50 ml @ 100 mls/hr Q6 IVPB Last administered on 04/28/17 05:10; Admin Dose 100 MLS/HR; Start at 18:00 Furosemide (Lasix) 20 mg DAILY@06 IV Last administered on 04/23/17 05:44; Admin Dose 20 MG; Start 04/18/17 at 18:30; Status Future Hold Fentanyl (Duragesic 12 Mcg/Hr Patch) 1 patch Q72H TRANSDERM Last administered on 04/28/17 07:12; Admin Dose 1 PATCH; Start 04/22/17 at 05:30 Morphine Sulfate (morphine) 1 mg Q4H PRN IV SEVERE PAIN LEVEL 7-10 Last administered on 04/26/17 20:25; Admin Dose 1 MG; Start 04/22/17 at 17:30 Metoclopramide HCl (Reglan) 10 mg Q6H PRN IV NAUSEA Last administered on 21:09; Admin Dose 10 MG; Start 04/22/17 at 21:00 Enoxaparin Sodium (Lovenox) 30 mg DAILY SC Last administered on 04/28/17 08:31 ; Admin Dose 30 MG; Start 04/23/17 at 20:30 Acetaminophen (Tylenol Supp) 650 mg Q6H PRN [place] FEVER GREATER THAN 100.6; Start 04/23/17 at 20:30 Acetaminophen (Tylenol Tab) 650 mg Q6H PRN PO PAIN AND OR ELEVATED TEMP Last administered on 04/28/17 02:36; Admin Dose 650 MG; Start 04/23/17 at 20:30 Lactobacillus Acidophilus/ Rhamnosus (Culturelle) 1 cap BID PO Last administered on 04/28/17 08:24; Admin Dose 1 CAP; Start 04/24/17 at 11:30 Diagnostic Test (Pha) (Accu-Chek) 1 ea 02 XX ; Start 04/26/17 at 02:00 AARON ANSARI M.D. Apr 28, 2017 10:08
--- NOTE | 2017-04-28 10:09 | CONS ---
Date/Time of Note Date/Time of Note DATE: 04/28/17 TIME: 10:08 Assessment/Plan Assessment/Plan Additional Assessment/Plan 1.Hypotension-now improved/stable - better overall 2.abnl ecg-with ST elevations anterior-negative trop x 3/NL EF by echo. NO CP - NO CP now, no intervention planned 3.Liver abscess s/p CT guided drainage - con't to improve gradually 4.H/O lung ca s/p resection with lung nodules by CT? 5.Lung nodules - pulmonary follows 6. Hyponatremia 7. Effusion s/p CT with ongoing effusion Consultation Date/Type/Reason Admit Date/Time Apr 13, 2017 at 19:51 Initial Consult Date 04/13/17 Type of Consultation: cardiology Referring Provider: DARREL BURT MD 24 HR Interval Summary Free Text/Dictation NO acute events - malaise - no significant ectopy on tele now ROS: No fever, no chills, no nausea, no vomiting, no diarrhea/constipation No recent weight changes No chest pain, no PND, no orthopnea No dizziness, blurred vision No thirst, no heat or cold intolerance Exam/Review of Systems Vital Signs Vitals Vital Signs Date Time Temp Pulse Resp B/P Pulse Ox O2 Delivery O2 Flow Rate FiO2 04/28/17 08:35 93 04/28/17 08:06 98.3 17 105/58 97 04/27/17 20:35 2.0 04/27/17 16:46 Nasal Cannula Intake and Output 04/27/17 04/27/17 04/28/17 15:00 23:00 07:00 Intake Total 50 ml 220 ml 350 ml Output Total 5 ml 10 ml 0 ml Balance 45 ml 210 ml 350 ml Exam General: WN/WD/NAD, AOx 2-3 - depressed HEENT: Unicetric/atraumatic/EOMI ( follows commands) NECK: JVD elevated, no thyromegaly Lymph: no lymphadenopathy HEART: regular with no S3, II/ systolic murmur at apex LUNGS: Coarse sounds ABD: soft, NT, ND, +BS : Intact Neuro: non focal SKIN: chronic changes EXT: trace edema Results Result Diagram: 04/28/17 0719 04/28/17 0719 Results 24 hrs Laboratory Tests Test 04/27/17 11:57 04/27/17 14:18 04/27/17 17:08 04/27/17 20:29 Bedside Glucose 83 87 80 117 Test 04/28/17 07:19 04/28/17 08:19 White Blood Count 10.7 Red Blood Count 2.87 L Hemoglobin 8.8 L Hematocrit 27.0 L Mean Corpuscular Volume 94.1 Mean Corpuscular Hemoglobin 30.7 Mean Corpuscular Hemoglobin Concent 32.6 Red Cell Distribution Width 13.7 Platelet Count 359 # Mean Platelet Volume 8.7 Neutrophils % 71.5 Lymphocytes % 13.3 L Monocytes % 13.6 H Eosinophils % 0.5 Basophils % 0.4 Nucleated Red Blood Cells % 0.0 Neutrophils # 7.6 H Lymphocytes # 1.4 Monocytes # 1.5 H Eosinophils # 0.1 Basophils # 0.0 Nucleated Red Blood Cells # 0.0 Sodium Level 133 L Potassium Level 4.4 Chloride Level 95 L Carbon Dioxide Level 31 Anion Gap 11 Blood Urea Nitrogen 11 Creatinine 0.49 Glucose Level 85 Calcium Level 9.0 Total Bilirubin 0.3 Direct Bilirubin 0.00 Indirect Bilirubin 0.3 Aspartate Amino Transf (AST/SGOT) 31 Alanine Aminotransferase (ALT/SGPT) 43 Alkaline Phosphatase 193 H Total Protein 6.4 Albumin 2.5 L Globulin 3.90 H Albumin/Globulin Ratio 0.64 Bedside Glucose 86 Medications Medications Current Medications Miscellaneous Information 1 ea NOTE XX ; Start 04/13/17 at 21:30 Glucose (Glutose) 15 gm Q15M PRN PO DECREASED GLUCOSE; Start 04/13/17 at 21:30 Glucose (Glutose) 22.5 gm Q15M PRN PO DECREASED GLUCOSE; Start 04/13/17 at 21: 30 Dextrose (D50w Syringe) 25 ml Q15M PRN IV DECREASED GLUCOSE; Start 04/13/17 at 21:30 Dextrose (D50w Syringe) 50 ml Q15M PRN IV DECREASED GLUCOSE; Start 04/13/17 at 21:30 Glucagon (Glucagen) 1 mg Q15M PRN IM DECREASED GLUCOSE; Start 04/13/17 at 21:30 Glucose (Glutose) 15 gm Q15M PRN BUCCAL DECREASED GLUCOSE; Start 04/13/17 at 21 :30 Ondansetron HCl (Zofran Inj) 4 mg Q6 PRN IV NAUSEA AND/OR VOMITING Last administered on 04/26/17t 20:25; Admin Dose 4 MG; Start 04/13/17 at 21:30 Guaifenesin/ Dextromethorphan (Robitussin Dm Liquid Cup) 5 ml Q4H PRN PO COUGH Last administered on 04/19/17 05:09; Admin Dose 5 ML; Start 04/15/17 at 16:30 Pantoprazole (Protonix Tab) 40 mg DAILY@06 PO Last administered on 04/28/17 05 :12; Admin Dose 40 MG; Start 04/17/17 at 06:00 Acetaminophen (Tylenol Tab) 500 mg Q6H PRN PO PAIN AND OR ELEVATED TEMP Last administered on 04/24/17 19:35; Admin Dose 500 MG; Start 04/17/17 at 03:00 Magnesium Hydroxide 30 ml 30 ml DAILY PRN PO CONSTIPATION; Start 04/17/17 at 11 :30 Ampicillin Sodium/ Sulbactam Sodium (Unasyn 1.5gm/NS (Pmx)) 50 ml @ 100 mls/hr Q6 IVPB Last administered on 04/28/17 05:10; Admin Dose 100 MLS/HR; Start at 18:00 Furosemide (Lasix) 20 mg DAILY@06 IV Last administered on 04/23/17 05:44; Admin Dose 20 MG; Start 04/18/17 at 18:30; Status Future Hold Fentanyl (Duragesic 12 Mcg/Hr Patch) 1 patch Q72H TRANSDERM Last administered on 04/28/17 07:12; Admin Dose 1 PATCH; Start 04/22/17 at 05:30 Morphine Sulfate (morphine) 1 mg Q4H PRN IV SEVERE PAIN LEVEL 7-10 Last administered on 04/26/17 20:25; Admin Dose 1 MG; Start 04/22/17 at 17:30 Metoclopramide HCl (Reglan) 10 mg Q6H PRN IV NAUSEA Last administered on 21:09; Admin Dose 10 MG; Start 04/22/17 at 21:00 Enoxaparin Sodium (Lovenox) 30 mg DAILY SC Last administered on 04/28/17 08:31 ; Admin Dose 30 MG; Start 04/23/17 at 20:30 Acetaminophen (Tylenol Supp) 650 mg Q6H PRN SC FEVER GREATER THAN 100.6; Start 04/23/17 at 20:30 Acetaminophen (Tylenol Tab) 650 mg Q6H PRN PO PAIN AND OR ELEVATED TEMP Last administered on 04/28/17 02:36; Admin Dose 650 MG; Start 04/23/17 at 20:30 Lactobacillus Acidophilus/ Rhamnosus (Culturelle) 1 cap BID PO Last administered on 04/28/17 08:24; Admin Dose 1 CAP; Start 04/24/17 at 11:30 Diagnostic Test (Pha) (Accu-Chek) 1 ea 02 XX ; Start 04/26/17 at 02:00 JAIME BULLARD MD Apr 28, 2017 10:09
--- NOTE | 2017-04-28 10:39 | CONS ---
Date/Time of Note Date/Time of Note DATE: 04/28/17 TIME: 10:36 Assessment/Plan Assessment/Plan Additional Assessment/Plan Assessment recommendations; 1. Patient admitted with hepatic abscess then developed significant bilateral pleural effusions with multiple loculations involving the right lung, status post chest tube placement without any further drainage due to multiple loculations. There is post 2 thoracentesis. Continue current treatment. Patient scheduled for VATS procedure. Consultation Date/Type/Reason Admit Date/Time Apr 13, 2017 at 19:51 Initial Consult Date 04/15/17 Type of Consultation: Pulmonary Referring Provider: DARREL BURT MD 24 HR Interval Summary Free Text/Dictation Patient's condition remains stable. Remains awake and alert. Denies any chest pain, shortness of breath, abdominal pain, nausea or vomiting. General exam; elderly woman, awake and alert. Currently in no distress. Exam/Review of Systems Vital Signs Vitals Vital Signs Date Time Temp Pulse Resp B/P Pulse Ox O2 Delivery O2 Flow Rate FiO2 04/28/17 08:35 93 04/28/17 08:06 98.3 17 105/58 97 04/27/17 20:35 2.0 04/27/17 16:46 Nasal Cannula Intake and Output 04/27/17 04/27/17 04/28/17 15:00 23:00 07:00 Intake Total 50 ml 220 ml 350 ml Output Total 5 ml 10 ml 0 ml Balance 45 ml 210 ml 350 ml Exam HEENT exam; supple neck, no JVD. No lymphadenopathy. Midline trachea. No thyromegaly. Pharynx is clear. Pupils are small bilaterally. Patient has a multiple carious teeth. Chest exam; diminished breath sounds right lung. Right-sided chest tube in place. Left lung is clear to auscultation. S1-S2 audible, no murmurs. Regular rhythm. Abdomen exam; soft, nondistended. No organomegaly. Right upper quadrant drain in place. Bowel sounds audible. Extremity exam; no peripheral edema. [employer] exam; no focal deficit. Results Result Diagram: 04/28/17 0719 04/28/17 07 Results 24 hrs Laboratory Tests Test 04/27/17 11:57 04/27/17 14:18 04/27/17 17:08 04/27/17 20:29 Bedside Glucose 83 87 80 117 Test 04/28/17 07:19 04/28/17 08:19 White Blood Count 10.7 Red Blood Count 2.87 L Hemoglobin 8.8 L Hematocrit 27.0 L Mean Corpuscular Volume 94.1 Mean Corpuscular Hemoglobin 30.7 Mean Corpuscular Hemoglobin Concent 32.6 Red Cell Distribution Width 13.7 Platelet Count 359 # Mean Platelet Volume 8.7 Neutrophils % 71.5 Lymphocytes % 13.3 L Monocytes % 13.6 H Eosinophils % 0.5 Basophils % 0.4 Nucleated Red Blood Cells % 0.0 Neutrophils # 7.6 H Lymphocytes # 1.4 Monocytes # 1.5 H Eosinophils # 0.1 Basophils # 0.0 Nucleated Red Blood Cells # 0.0 Sodium Level 133 L Potassium Level 4.4 Chloride Level 95 L Carbon Dioxide Level 31 Anion Gap 11 Blood Urea Nitrogen 11 Creatinine 0.49 Glucose Level 85 Calcium Level 9.0 Total Bilirubin 0.3 Direct Bilirubin 0.00 Indirect Bilirubin 0.3 Aspartate Amino Transf (AST/SGOT) 31 Alanine Aminotransferase (ALT/SGPT) 43 Alkaline Phosphatase 193 H Total Protein 6.4 Albumin 2.5 L Globulin 3.90 H Albumin/Globulin Ratio 0.64 Bedside Glucose 86 Medications Medications Current Medications Miscellaneous Information 1 ea NOTE XX ; Start 04/13/17 at 21:30 Glucose (Glutose) 15 gm Q15M PRN PO DECREASED GLUCOSE; Start 04/13/17 at 21:30 Glucose (Glutose) 22.5 gm Q15M PRN PO DECREASED GLUCOSE; Start 04/13/17 at 21: 30 Dextrose (D50w Syringe) 25 ml Q15M PRN IV DECREASED GLUCOSE; Start 04/13/17 at 21:30 Dextrose (D50w Syringe) 50 ml Q15M PRN IV DECREASED GLUCOSE; Start 04/13/17 at 21:30 Glucagon (Glucagen) 1 mg Q15M PRN IM DECREASED GLUCOSE; Start 04/13/17 at 21:30 Glucose (Glutose) 15 gm Q15M PRN BUCCAL DECREASED GLUCOSE; Start 04/13/17 at 21 :30 Ondansetron HCl (Zofran Inj) 4 mg Q6 PRN IV NAUSEA AND/OR VOMITING Last administered on 04/26/17t 20:25; Admin Dose 4 MG; Start 04/13/17 at 21:30 Guaifenesin/ Dextromethorphan (Robitussin Dm Liquid Cup) 5 ml Q4H PRN PO COUGH Last administered on 04/19/17 05:09; Admin Dose 5 ML; Start 04/15/17 at 16:30 Pantoprazole (Protonix Tab) 40 mg DAILY@06 PO Last administered on 04/28/17 05 :12; Admin Dose 40 MG; Start 04/17/17 at 06:00 Acetaminophen (Tylenol Tab) 500 mg Q6H PRN PO PAIN AND OR ELEVATED TEMP Last administered on 04/24/17 19:35; Admin Dose 500 MG; Start 04/17/17 at 03:00 Magnesium Hydroxide 30 ml 30 ml DAILY PRN PO CONSTIPATION; Start 04/17/17 at 11 :30 Ampicillin Sodium/ Sulbactam Sodium (Unasyn 1.5gm/NS (Pmx)) 50 ml @ 100 mls/hr Q6 IVPB Last administered on 04/28/17 05:10; Admin Dose 100 MLS/HR; Start at 18:00 Furosemide (Lasix) 20 mg DAILY@06 IV Last administered on 04/23/17 05:44; Admin Dose 20 MG; Start 04/18/17 at 18:30; Status Future Hold Fentanyl (Duragesic 12 Mcg/Hr Patch) 1 patch Q72H TRANSDERM Last administered on 04/28/17 07:12; Admin Dose 1 PATCH; Start 04/22/17 at 05:30 Morphine Sulfate (morphine) 1 mg Q4H PRN IV SEVERE PAIN LEVEL 7-10 Last administered on 04/26/17 20:25; Admin Dose 1 MG; Start 04/22/17 at 17:30 Metoclopramide HCl (Reglan) 10 mg Q6H PRN IV NAUSEA Last administered on 21:09; Admin Dose 10 MG; Start 04/22/17 at 21:00 Enoxaparin Sodium (Lovenox) 30 mg DAILY SC Last administered on 04/28/17 08:31 ; Admin Dose 30 MG; Start 04/23/17 at 20:30 Acetaminophen (Tylenol Supp) 650 mg Q6H PRN ID FEVER GREATER THAN 100.6; Start 04/23/17 at 20:30 Acetaminophen (Tylenol Tab) 650 mg Q6H PRN PO PAIN AND OR ELEVATED TEMP Last administered on 04/28/17 02:36; Admin Dose 650 MG; Start 04/23/17 at 20:30 Lactobacillus Acidophilus/ Rhamnosus (Culturelle) 1 cap BID PO Last administered on 04/28/17 08:24; Admin Dose 1 CAP; Start 04/24/17 at 11:30 Diagnostic Test (Pha) (Accu-Chek) 1 ea 02 XX ; Start 04/26/17 at 02:00 LINDA GARCIA Apr 28, 2017 10:39
[2017-04-28] MEDS: ACETAMINOPHEN 500 MG TAB PO PRN ×2 (12:29→18:33)
--- NOTE | 2017-04-28 17:02 | PN ---
Date/Time of Note Date/Time of Note DATE: 04/28/17 TIME: 17:00 Assessment/Plan VTE Prophylaxis VTE Prophylaxis Intervention: SCD's Lines/Catheters IV [facility]ter Type (from [email or web address] Saline Lock Urinary Cath still in place: No Assessment/Plan Chief Complaint/Hosp Course Patient continues on supplemental oxygen, comfortable at rest, complains of shortness of breath when talking or eating, denies abdominal pain, tolerates diet well. Assessment/Plan - Bilateral pleural effusions right more than left, status post right thoracentesis 04/20. S/p right chest tube insertion on 04/[address] Jackson, vascular surgery. S/p right thoracentesis 04/26. - Acute respiratory failure secondary to #1, Dr. Damico is following in pulmonology consultation continue oxygen oxygen supplementation - Severe sepsis 09/04 to liver abscess, resolving. Continue antibiotics per ID. Dr. Diana is following infection disease consultation - Liver abscess unchanged per recent CT, s/p CT guided drainage 04/15/2017, s/p CT guided percutaneous drainage of liver abscess 04/23, status post CT-guided liver abscess drainage 04/27 - Normocytic anemia requiring blood transfusion - Hx of rectal CA s/p Low anterior resection 08/29/2016 Further recommendations based on clinical course. Plan of care discussed with Dr. Dior Problems: Exam/Review of Systems Vital Signs Vitals Vital Signs Date Time Temp Pulse Resp B/P Pulse Ox O2 Delivery O2 Flow Rate FiO2 04/28/17 16:29 95 04/28/17 16:16 97.5 18 130/79 96 04/28/17 08:15 Simple Mask 6.0 Intake and Output 04/27/17 04/27/17 04/28/17 15:00 23:00 07:00 Intake Total 50 ml 220 ml 350 ml Output Total 5 ml 10 ml 0 ml Balance 45 ml 210 ml 350 ml Exam Constitutional: alert Neck: supple Respiratory: diminished breath sounds Cardiovascular: nl pulses Gastrointestinal: other (Hepatic drain), soft Extremities: normal pulses Constitutional: alert, oriented, well developed Results Result Diagram: 04/28/17 0719 04/28/17 0719 Results 24 hrs Laboratory Tests Test 04/27/17 17:08 04/27/17 20:29 04/28/17 07:19 04/28/17 08:19 Bedside Glucose 80 117 86 White Blood Count 10.7 Red Blood Count 2.87 L Hemoglobin 8.8 L Hematocrit 27.0 L Mean Corpuscular Volume 94.1 Mean Corpuscular Hemoglobin 30.7 Mean Corpuscular Hemoglobin Concent 32.6 Red Cell Distribution Width 13.7 Platelet Count 359 # Mean Platelet Volume 8.7 Neutrophils % 71.5 Lymphocytes % 13.3 L Monocytes % 13.6 H Eosinophils % 0.5 Basophils % 0.4 Nucleated Red Blood Cells % 0.0 Neutrophils # 7.6 H Lymphocytes # 1.4 Monocytes # 1.5 H Eosinophils # 0.1 Basophils # 0.0 Nucleated Red Blood Cells # 0.0 Sodium Level 133 L Potassium Level 4.4 Chloride Level 95 L Carbon Dioxide Level 31 Anion Gap 11 Blood Urea Nitrogen 11 Creatinine 0.49 Glucose Level 85 Calcium Level 9.0 Total Bilirubin 0.3 Direct Bilirubin 0.00 Indirect Bilirubin 0.3 Aspartate Amino Transf (AST/SGOT) 31 Alanine Aminotransferase (ALT/SGPT) 43 Alkaline Phosphatase 193 H Total Protein 6.4 Albumin 2.5 L Globulin 3.90 H Albumin/Globulin Ratio 0.64 Test 04/28/17 12:27 Bedside Glucose 129 Medications Medications Current Medications Miscellaneous Information 1 ea NOTE XX ; Start 04/13/17 at 21:30 Glucose (Glutose) 15 gm Q15M PRN PO DECREASED GLUCOSE; Start 04/13/17 at 21:30 Glucose (Glutose) 22.5 gm Q15M PRN PO DECREASED GLUCOSE; Start 04/13/17 at 21: 30 Dextrose (D50w Syringe) 25 ml Q15M PRN IV DECREASED GLUCOSE; Start 04/13/17 at 21:30 Dextrose (D50w Syringe) 50 ml Q15M PRN IV DECREASED GLUCOSE; Start 04/13/17 at 21:30 Glucagon (Glucagen) 1 mg Q15M PRN IM DECREASED GLUCOSE; Start 04/13/17 at 21:30 Glucose (Glutose) 15 gm Q15M PRN BUCCAL DECREASED GLUCOSE; Start 04/13/17 at 21 :30 Ondansetron HCl (Zofran Inj) 4 mg Q6 PRN IV NAUSEA AND/OR VOMITING Last administered on 04/26/17t 20:25; Admin Dose 4 MG; Start 04/13/17 at 21:30 Guaifenesin/ Dextromethorphan (Robitussin Dm Liquid Cup) 5 ml Q4H PRN PO COUGH Last administered on 04/19/17 05:09; Admin Dose 5 ML; Start 04/15/17 at 16:30 Pantoprazole (Protonix Tab) 40 mg DAILY@06 PO Last administered on 04/28/17 05 :12; Admin Dose 40 MG; Start 04/17/17 at 06:00 Acetaminophen (Tylenol Tab) 500 mg Q6H PRN PO PAIN AND OR ELEVATED TEMP Last administered on 04/28/17 12:29; Admin Dose 500 MG; Start 04/17/17 at 03:00 Magnesium Hydroxide 30 ml 30 ml DAILY PRN PO CONSTIPATION; Start 04/17/17 at 11 :30 Ampicillin Sodium/ Sulbactam Sodium (Unasyn 1.5gm/NS (Pmx)) 50 ml @ 100 mls/hr Q6 IVPB Last administered on 04/28/17 05:10; Admin Dose 100 MLS/HR; Start at 18:00 Furosemide (Lasix) 20 mg DAILY@06 IV Last administered on 04/23/17 05:44; Admin Dose 20 MG; Start 04/18/17 at 18:30; Status Future Hold Fentanyl (Duragesic 12 Mcg/Hr Patch) 1 patch Q72H TRANSDERM Last administered on 04/28/17 07:12; Admin Dose 1 PATCH; Start 04/22/17 at 05:30 Morphine Sulfate (morphine) 1 mg Q4H PRN IV SEVERE PAIN LEVEL 7-10 Last administered on 04/26/17 20:25; Admin Dose 1 MG; Start 04/22/17 at 17:30 Metoclopramide HCl (Reglan) 10 mg Q6H PRN IV NAUSEA Last administered on 21:09; Admin Dose 10 MG; Start 04/22/17 at 21:00 Enoxaparin Sodium (Lovenox) 30 mg DAILY SC Last administered on 04/28/17 08:31 ; Admin Dose 30 MG; Start 04/23/17 at 20:30 Acetaminophen (Tylenol Supp) 650 mg Q6H PRN OR FEVER GREATER THAN 100.6; Start 04/23/17 at 20:30 Acetaminophen (Tylenol Tab) 650 mg Q6H PRN PO PAIN AND OR ELEVATED TEMP Last administered on 04/28/17 02:36; Admin Dose 650 MG; Start 04/23/17 at 20:30 Lactobacillus Acidophilus/ Rhamnosus (Culturelle) 1 cap BID PO Last administered on 04/28/17 08:24; Admin Dose 1 CAP; Start 04/24/17 at 11:30 Diagnostic Test (Pha) (Accu-Chek) 1 ea 02 XX ; Start 04/26/17 at 02:00 WINDY EMERY Apr 28, 2017 17:02
--- NOTE | 2017-04-28 17:23 | CONS ---
Date/Time of Note Date/Time of Note DATE: 04/28/17 TIME: 17:22 Assessment/Plan Assessment/Plan Chief Complaint/Hosp Course Problems: Additional Assessment/Plan 1. Acute hyponatremia 2/2 Hypovolemic hyponatremia 2. sepsis due to liver abscess 3. Hepatic abscess oN CT scan s/p CT guided drainage on 04/15/17 and 04/23/17 4. Acute transaminitis 5. h/o Colon CA s/p previous Surgery 6. Hypokalemia 7. Hyponatremia Plan : toleratign po diet, Na 133 Cr normal, good adequate urine output Cr stable will follow up Consultation Date/Type/Reason Admit Date/Time Apr 13, 2017 at 19:51 Initial Consult Date 04/13/17 Type of Consultation: Nephrology Referring Provider: DARREL BURT MD 24 HR Interval Summary Free Text/Dictation Na 133, Cr stable, no complaints Exam/Review of Systems Vital Signs Vitals Vital Signs Date Time Temp Pulse Resp B/P Pulse Ox O2 Delivery O2 Flow Rate FiO2 04/28/17 16:29 95 04/28/17 16:16 97.5 18 130/79 96 04/28/17 16:00 Simple Mask 6.0 Intake and Output 04/27/17 04/27/17 04/28/17 15:00 23:00 07:00 Intake Total 50 ml 220 ml 350 ml Output Total 5 ml 10 ml 0 ml Balance 45 ml 210 ml 350 ml Exam Constitutional: alert Psych: no complaints Head: normocephalic Neck: non-tender, supple Respiratory: clear to auscultation, normal air movement Cardiovascular: other, regular rate and rhythm Gastrointestinal: soft Musculoskeletal: nl extremities to inspection Results Result Diagram: 04/28/17 0719 04/28/17 0719 Results 24 hrs Laboratory Tests Test 04/27/17 20:29 04/28/17 07:19 04/28/17 08:19 04/28/17 12:27 Bedside Glucose 117 86 129 White Blood Count 10.7 Red Blood Count 2.87 L Hemoglobin 8.8 L Hematocrit 27.0 L Mean Corpuscular Volume 94.1 Mean Corpuscular Hemoglobin 30.7 Mean Corpuscular Hemoglobin Concent 32.6 Red Cell Distribution Width 13.7 Platelet Count 359 # Mean Platelet Volume 8.7 Neutrophils % 71.5 Lymphocytes % 13.3 L Monocytes % 13.6 H Eosinophils % 0.5 Basophils % 0.4 Nucleated Red Blood Cells % 0.0 Neutrophils # 7.6 H Lymphocytes # 1.4 Monocytes # 1.5 H Eosinophils # 0.1 Basophils # 0.0 Nucleated Red Blood Cells # 0.0 Sodium Level 133 L Potassium Level 4.4 Chloride Level 95 L Carbon Dioxide Level 31 Anion Gap 11 Blood Urea Nitrogen 11 Creatinine 0.49 Glucose Level 85 Calcium Level 9.0 Total Bilirubin 0.3 Direct Bilirubin 0.00 Indirect Bilirubin 0.3 Aspartate Amino Transf (AST/SGOT) 31 Alanine Aminotransferase (ALT/SGPT) 43 Alkaline Phosphatase 193 H Total Protein 6.4 Albumin 2.5 L Globulin 3.90 H Albumin/Globulin Ratio 0.64 Medications Medications Current Medications Miscellaneous Information 1 ea NOTE XX ; Start 04/13/17 at 21:30 Glucose (Glutose) 15 gm Q15M PRN PO DECREASED GLUCOSE; Start 04/13/17 at 21:30 Glucose (Glutose) 22.5 gm Q15M PRN PO DECREASED GLUCOSE; Start 04/13/17 at 21: 30 Dextrose (D50w Syringe) 25 ml Q15M PRN IV DECREASED GLUCOSE; Start 04/13/17 at 21:30 Dextrose (D50w Syringe) 50 ml Q15M PRN IV DECREASED GLUCOSE; Start 04/13/17 at 21:30 Glucagon (Glucagen) 1 mg Q15M PRN IM DECREASED GLUCOSE; Start 04/13/17 at 21:30 Glucose (Glutose) 15 gm Q15M PRN BUCCAL DECREASED GLUCOSE; Start 04/13/17 at 21 :30 Ondansetron HCl (Zofran Inj) 4 mg Q6 PRN IV NAUSEA AND/OR VOMITING Last administered on 04/26/17 20:25; Admin Dose 4 MG; Start 04/13/17 at 21:30 Guaifenesin/ Dextromethorphan (Robitussin Dm Liquid Cup) 5 ml Q4H PRN PO COUGH Last administered on 04/19/17 05:09; Admin Dose 5 ML; Start 04/15/17 at 16:30 Pantoprazole (Protonix Tab) 40 mg DAILY@06 PO Last administered on 04/28/17 05 :12; Admin Dose 40 MG; Start 04/17/17 at 06:00 Acetaminophen (Tylenol Tab) 500 mg Q6H PRN PO PAIN AND OR ELEVATED TEMP Last administered on 04/28/17 12:29; Admin Dose 500 MG; Start 04/17/17 at 03:00 Magnesium Hydroxide 30 ml 30 ml DAILY PRN PO CONSTIPATION; Start 04/17/17 at 11 :30 Ampicillin Sodium/ Sulbactam Sodium (Unasyn 1.5gm/NS (Pmx)) 50 ml @ 100 mls/hr Q6 IVPB Last administered on 04/28/17 05:10; Admin Dose 100 MLS/HR; Start at 18:00 Furosemide (Lasix) 20 mg DAILY@06 IV Last administered on 04/23/17 05:44; Admin Dose 20 MG; Start 04/18/17 at 18:30; Status Future Hold Fentanyl (Duragesic 12 Mcg/Hr Patch) 1 patch Q72H TRANSDERM Last administered on 04/28/17 07:12; Admin Dose 1 PATCH; Start 04/22/17 at 05:30 Morphine Sulfate (morphine) 1 mg Q4H PRN IV SEVERE PAIN LEVEL 7-10 Last administered on 04/26/17 20:25; Admin Dose 1 MG; Start 04/22/17 at 17:30 Metoclopramide HCl (Reglan) 10 mg Q6H PRN IV NAUSEA Last administered on 21:09; Admin Dose 10 MG; Start 04/22/17 at 21:00 Enoxaparin Sodium (Lovenox) 30 mg DAILY SC Last administered on 04/28/17 08:31 ; Admin Dose 30 MG; Start 04/23/17 at 20:30 Acetaminophen (Tylenol Supp) 650 mg Q6H PRN CO FEVER GREATER THAN 100.6; Start 04/23/17 at 20:30 Acetaminophen (Tylenol Tab) 650 mg Q6H PRN PO PAIN AND OR ELEVATED TEMP Last administered on 04/28/17 02:36; Admin Dose 650 MG; Start 04/23/17 at 20:30 Lactobacillus Acidophilus/ Rhamnosus (Culturelle) 1 cap BID PO Last administered on 04/28/17 08:24; Admin Dose 1 CAP; Start 04/24/17 at 11:30 Diagnostic Test (Pha) (Accu-Chek) 1 ea 02 XX ; Start 04/26/17 at 02:00 NGOC GARZA MD Apr 28, 2017 17:23
[2017-04-28] MEDS: METOCLOPRAMIDE 10 MG INJ IV PRN (20:51)
--- NOTE | 2017-04-28 22:28 | PN ---
Date/Time of Note Date/Time of Note DATE: 04/28/17 TIME: 22:28 Assessment/Plan Lines/Catheters IV Catheter Type (from Nrsg): Saline Lock Khan in Place (from Nrsg): No Assessment/Plan Chief Complaint/Hosp Course 66-year-old female with a history of colon/rectal ca presenting with sepsis due to liver abscesses, whose course has been complicated by mild hypoxemic resp insufficiency with enlarging R.> L effusions. SP CT placement still with large effusion will need VATS decortication if she does not respond to CT Sxn Continue antibiotics per ID may need to defer thoracic surgery until liver abscess resolved. Continue percutaneous drainage of abdominal abscess Problems: Subjective 24 Hr Interval Summary Constitutional: improved Pain Control: mild Exam/Review of Systems Vital Signs Vitals Vital Signs Date Time Temp Pulse Resp B/P Pulse Ox O2 Delivery O2 Flow Rate FiO2 04/28/17 20:02 98.2 98 18 125/72 98 04/28/17 18:21 2.0 04/28/17 16:00 Simple Mask Intake and Output 04/27/17 04/27/17 04/28/17 15:00 23:00 07:00 Intake Total 50 ml 220 ml 350 ml Output Total 5 ml 10 ml 0 ml Balance 45 ml 210 ml 350 ml Exam Neck: non-tender, supple Respiratory: clear to auscultation, normal air movement Cardiovascular: nl pulses, regular rate and rhythm Gastrointestinal: nl liver, spleen, non-tender, soft Results Result Diagram: 04/28/17 0719 04/28/17 0719 ADRIAN NO MD Apr 28, 2017 22:28
[2017-04-29] VITALS (11 sets, daily range): BP systolic 124–140; BP diastolic 66–84; PULSE 76–97; RESP 18–20
[2017-04-29] MEDS: AMPICILLIN/SULB 1.5GM/NS (PMX) 50 ML IVPB SCH ×5 (00:26→23:38)
[2017-04-29] MEDS: ACCU-CHEK XX SCH ×2 (00:29→23:38)
[2017-04-29] MEDS: PANTOPRAZOLE (EC) 40 MG TAB PO SCH (05:05)
[2017-04-29] MEDS: ACETAMINOPHEN 325 MG TAB PO PRN ×4 (05:25→23:38)
[2017-04-29] MEDS: Insulin NOVOLOG SS MILD Algorithm (SS with meals and bedtime) SC SCH ×4 (07:30→20:18)
[2017-04-29 08:16] LABS: BASOPHILS % 0.4 % (0.0-2.0); EOSINOPHILS % 0.3 % (0.0-7.0); HEMATOCRIT 27.4 % (37.0-47.0); HEMOGLOBIN 8.9 g/dl (12.0-16.0); LYMPHOCYTES # 1.4 10^3/ul (0.8-2.9); LYMPHOCYTES % 13.6 % (15.0-51.0); MEAN CORPUSCULAR HEMOGLOBIN 29.8 pg (29.0-33.0); MEAN CORPUSCULAR HGB CONC 32.5 g/dl (32.0-37.0); MEAN CORPUSCULAR VOLUME 91.6 fl (82.0-101.0); MEAN PLATELET VOLUME 8.6 fl (7.4-10.4); MONOCYTE # 1.3 10^3/ul (0.3-0.9); MONOCYTES % 12.2 % (0.0-11.0); NEUTROPHIL # 7.6 10^3/ul (1.6-7.5); NEUTROPHILS % 72.9 % (39.0-77.0); PLATELET COUNT 395 10^3/UL (140-415); RED BLOOD COUNT 2.99 10^6/ul (4.20-5.40); RED CELL DISTRIBUTION WIDTH 13.7 % (11.5-14.5); WHITE BLOOD COUNT 10.4 10^3/ul (4.8-10.8)
[2017-04-29 08:53] LABS: CALCIUM 8.8 mg/dl (8.4-10.2); CREATININE 0.41 mg/dl (0.44-1.00)
[2017-04-29] MEDS: LACTOBACILLUS RHAMNOSUS CAP PO SCH ×2 (09:16→20:18)
[2017-04-29] MEDS: ENOXAPARIN 30 MG/0.3 ML SYG SC SCH (09:17)
--- NOTE | 2017-04-29 09:55 | CONS ---
Date/Time of Note Date/Time of Note DATE: 04/29/17 TIME: 09:54 Assessment/Plan Assessment/Plan Additional Assessment/Plan Assessment and recommendations; 1. Patient admitted with hepatic abscess status post percutaneous drain placement. 2. Interval development of significant bilateral loculated pleural effusions more pronounced in right lung. Status post thoracentesis as well as chest tube placement without any interval improvement. Continue current treatment. Patient is scheduled for a VATS procedure. Consultation Date/Type/Reason Admit Date/Time Apr 13, 2017 at 19:51 Initial Consult Date 04/15/17 Type of Consultation: Pulmonary Referring Provider: DARREL BURT MD 24 HR Interval Summary Free Text/Dictation Patient's condition is stable. Remains awake alert. Denies any shortness of breath. Chest pain. General exam; elderly woman, awake and alert. Currently in no distress. Exam/Review of Systems Vital Signs Vitals Vital Signs Date Time Temp Pulse Resp B/P Pulse Ox O2 Delivery O2 Flow Rate FiO2 04/29/17 08:08 97 04/29/17 08:05 98.3 18 132/84 98 04/29/17 07:17 2.0 04/28/17 20:00 Nasal Cannula Intake and Output 04/28/17 04/28/17 04/29/17 15:00 23:00 07:00 Intake Total 750 ml 300 ml Output Total 5 ml Balance 750 ml 295 ml Exam HEENT exam; supple neck, no JVD. No lymphadenopathy. Midline trachea. No thyromegaly. Patient has a multiple carious teeth. Chest exam; diminished breath sounds right lung. Left lung is clear to auscultation. S1-S2 audible, no murmurs. Regular rhythm. Abdomen exam; soft, no organomegaly. Bowel sounds audible. Right upper quadrant drain in place. Extremity exam; no peripheral edema. THERAPIST PHYS exam; no focal deficit. Results Result Diagram: 04/29/17 0702 04/29/17 0702 Results 24 hrs Laboratory Tests Test 04/28/17 12:27 04/28/17 17:26 04/28/17 20:14 04/29/17 07:02 Bedside Glucose 129 134 124 White Blood Count 10.4 Red Blood Count 2.99 L Hemoglobin 8.9 L Hematocrit 27.4 L Mean Corpuscular Volume 91.6 Mean Corpuscular Hemoglobin 29.8 Mean Corpuscular Hemoglobin Concent 32.5 Red Cell Distribution Width 13.7 Platelet Count 395 Mean Platelet Volume 8.6 Neutrophils % 72.9 Lymphocytes % 13.6 L Monocytes % 12.2 H Eosinophils % 0.3 Basophils % 0.4 Nucleated Red Blood Cells % 0.0 Neutrophils # 7.6 H Lymphocytes # 1.4 Monocytes # 1.3 H Eosinophils # 0.0 Basophils # 0.0 Nucleated Red Blood Cells # 0.0 Sodium Level 133 L Potassium Level 4.0 Chloride Level 96 L Carbon Dioxide Level 33 H Anion Gap 8 Blood Urea Nitrogen 11 Creatinine 0.41 L Glucose Level 124 Calcium Level 8.8 Test 04/29/17 08:14 Bedside Glucose 120 Medications Medications Current Medications Miscellaneous Information 1 ea NOTE XX ; Start 04/13/17 at 21:30 Glucose (Glutose) 15 gm Q15M PRN PO DECREASED GLUCOSE; Start 04/13/17 at 21:30 Glucose (Glutose) 22.5 gm Q15M PRN PO DECREASED GLUCOSE; Start 04/13/17 at 21: 30 Dextrose (D50w Syringe) 25 ml Q15M PRN IV DECREASED GLUCOSE; Start 04/13/17 at 21:30 Dextrose (D50w Syringe) 50 ml Q15M PRN IV DECREASED GLUCOSE; Start 04/13/17 at 21:30 Glucagon (Glucagen) 1 mg Q15M PRN IM DECREASED GLUCOSE; Start 04/13/17 at 21:30 Glucose (Glutose) 15 gm Q15M PRN BUCCAL DECREASED GLUCOSE; Start 04/13/17 at 21 :30 Ondansetron HCl (Zofran Inj) 4 mg Q6 PRN IV NAUSEA AND/OR VOMITING Last administered on 04/26/17 20:25; Admin Dose 4 MG; Start 04/13/17 at 21:30 Guaifenesin/ Dextromethorphan (Robitussin Dm Liquid Cup) 5 ml Q4H PRN PO COUGH Last administered on 04/19/17 05:09; Admin Dose 5 ML; Start 04/15/17 at 16:30 Pantoprazole (Protonix Tab) 40 mg DAILY@06 PO Last administered on 04/29/17 05 :05; Admin Dose 40 MG; Start 04/17/17 at 06:00 Acetaminophen (Tylenol Tab) 500 mg Q6H PRN PO PAIN AND OR ELEVATED TEMP Last administered on 04/28/17 18:33; Admin Dose 500 MG; Start 04/17/17 at 03:00 Magnesium Hydroxide 30 ml 30 ml DAILY PRN PO CONSTIPATION Last administered on 04/28/17 18:33; Admin Dose 30 ML; Start 04/17/17 at 11:30 Ampicillin Sodium/ Sulbactam Sodium (Unasyn 1.5gm/NS (Pmx)) 50 ml @ 100 mls/hr Q6 IVPB Last administered on 04/29/17 05:05; Admin Dose 100 MLS/HR; Start at 18:00 Furosemide (Lasix) 20 mg DAILY@06 IV Last administered on 04/23/17 05:44; Admin Dose 20 MG; Start 04/18/17 at 18:30; Status Future Hold Fentanyl (Duragesic 12 Mcg/Hr Patch) 1 patch Q72H TRANSDERM Last administered on 04/28/17 07:12; Admin Dose 1 PATCH; Start 04/22/17 at 05:30 Morphine Sulfate (morphine) 1 mg Q4H PRN IV SEVERE PAIN LEVEL 7-10 Last administered on 04/26/17 20:25; Admin Dose 1 MG; Start 04/22/17 at 17:30 Metoclopramide HCl (Reglan) 10 mg Q6H PRN IV NAUSEA Last administered on 20:51; Admin Dose 10 MG; Start 04/22/17 at 21:00 Enoxaparin Sodium (Lovenox) 30 mg DAILY SC Last administered on 04/29/17 09:17 ; Admin Dose 30 MG; Start 04/23/17 at 20:30 Acetaminophen (Tylenol Supp) 650 mg Q6H PRN [place] FEVER GREATER THAN 100.6; Start 04/23/17 at 20:30 Acetaminophen (Tylenol Tab) 650 mg Q6H PRN PO PAIN AND OR ELEVATED TEMP Last administered on 04/29/17 05:25; Admin Dose 650 MG; Start 04/23/17 at 20:30 Lactobacillus Acidophilus/ Rhamnosus (Culturelle) 1 cap BID PO Last administered on 04/29/17 09:16; Admin Dose 1 CAP; Start 04/24/17 at 11:30 Diagnostic Test (Pha) (Accu-Chek) 1 ea 02 XX ; Start 04/26/17 at 02:00 LINDA GARCIA Apr 29, 2017 09:55
--- NOTE | 2017-04-29 09:59 | CONS ---
Date/Time of Note Date/Time of Note DATE: 04/29/17 TIME: 09:58 Assessment/Plan Assessment/Plan Additional Assessment/Plan 1.Hypotension-now improved/stable - better overall - stable now 2.abnl ecg-with ST elevations anterior-negative trop x 3/NL EF by echo. NO CP - NO CP now, no intervention planned 3.Liver abscess s/p CT guided drainage - con't to improve gradually 4.H/O lung ca s/p resection with lung nodules by CT? 5.Lung nodules - pulmonary follows 6. Hyponatremia 7. Effusion s/p CT with ongoing effusion - seen CT surgery not - VATS likely, OK to proceed from cardiac standpoint Consultation Date/Type/Reason Admit Date/Time Apr 13, 2017 at 19:51 Initial Consult Date 04/13/17 Type of Consultation: Pulmonary Referring Provider: DARREL BURT MD 24 HR Interval Summary Free Text/Dictation NO acute events - awaiting VATS ROS: No fever, no chills, no nausea, no vomiting, no diarrhea/constipation No recent weight changes No chest pain, no PND, no orthopnea + SOB No dizziness, blurred vision No thirst, no heat or cold intolerance + fatigue Exam/Review of Systems Vital Signs Vitals Vital Signs Date Time Temp Pulse Resp B/P Pulse Ox O2 Delivery O2 Flow Rate FiO2 04/29/17 08:08 97 04/29/17 08:05 98.3 18 132/84 98 04/29/17 07:17 2.0 04/28/17 20:00 Nasal Cannula Intake and Output 04/28/17 04/28/17 04/29/17 15:00 23:00 07:00 Intake Total 750 ml 300 ml Output Total 5 ml Balance 750 ml 295 ml Exam General: WN/WD/NAD, AOx 2-3 HEENT: Unicetric/atraumatic/EOMI (follow commands) NECK: JVD elevated, no thyromegaly Lymph: no lymphadenopathy HEART: regular with no S3, II/ systolic murmur at apex LUNGS: Coarse sounds, drains ABD: soft, NT, ND, +BS : Intact Neuro: non focal SKIN: chronic changes EXT: trace edema Results Result Diagram: 04/29/17 0702 04/29/17 0702 Results 24 hrs Laboratory Tests Test 04/28/17 12:27 04/28/17 17:26 04/28/17 20:14 04/29/17 07:02 Bedside Glucose 129 134 124 White Blood Count 10.4 Red Blood Count 2.99 L Hemoglobin 8.9 L Hematocrit 27.4 L Mean Corpuscular Volume 91.6 Mean Corpuscular Hemoglobin 29.8 Mean Corpuscular Hemoglobin Concent 32.5 Red Cell Distribution Width 13.7 Platelet Count 395 Mean Platelet Volume 8.6 Neutrophils % 72.9 Lymphocytes % 13.6 L Monocytes % 12.2 H Eosinophils % 0.3 Basophils % 0.4 Nucleated Red Blood Cells % 0.0 Neutrophils # 7.6 H Lymphocytes # 1.4 Monocytes # 1.3 H Eosinophils # 0.0 Basophils # 0.0 Nucleated Red Blood Cells # 0.0 Sodium Level 133 L Potassium Level 4.0 Chloride Level 96 L Carbon Dioxide Level 33 H Anion Gap 8 Blood Urea Nitrogen 11 Creatinine 0.41 L Glucose Level 124 Calcium Level 8.8 Test 04/29/17 08:14 Bedside Glucose 120 Medications Medications Current Medications Miscellaneous Information 1 ea NOTE XX ; Start 04/13/17 at 21:30 Glucose (Glutose) 15 gm Q15M PRN PO DECREASED GLUCOSE; Start 04/13/17 at 21:30 Glucose (Glutose) 22.5 gm Q15M PRN PO DECREASED GLUCOSE; Start 04/13/17 at 21: 30 Dextrose (D50w Syringe) 25 ml Q15M PRN IV DECREASED GLUCOSE; Start 04/13/17 at 21:30 Dextrose (D50w Syringe) 50 ml Q15M PRN IV DECREASED GLUCOSE; Start 04/13/17 at 21:30 Glucagon (Glucagen) 1 mg Q15M PRN IM DECREASED GLUCOSE; Start 04/13/17 at 21:30 Glucose (Glutose) 15 gm Q15M PRN BUCCAL DECREASED GLUCOSE; Start 04/13/17 at 21 :30 Ondansetron HCl (Zofran Inj) 4 mg Q6 PRN IV NAUSEA AND/OR VOMITING Last administered on 04/26/17 20:25; Admin Dose 4 MG; Start 04/13/17 at 21:30 Guaifenesin/ Dextromethorphan (Robitussin Dm Liquid Cup) 5 ml Q4H PRN PO COUGH Last administered on 04/19/17 05:09; Admin Dose 5 ML; Start 04/15/17 at 16:30 Pantoprazole (Protonix Tab) 40 mg DAILY@06 PO Last administered on 04/29/17 05 :05; Admin Dose 40 MG; Start 04/17/17 at 06:00 Acetaminophen (Tylenol Tab) 500 mg Q6H PRN PO PAIN AND OR ELEVATED TEMP Last administered on 04/28/17 18:33; Admin Dose 500 MG; Start 04/17/17 at 03:00 Magnesium Hydroxide 30 ml 30 ml DAILY PRN PO CONSTIPATION Last administered on 04/28/17 18:33; Admin Dose 30 ML; Start 04/17/17 at 11:30 Ampicillin Sodium/ Sulbactam Sodium (Unasyn 1.5gm/NS (Pmx)) 50 ml @ 100 mls/hr Q6 IVPB Last administered on 04/29/17 05:05; Admin Dose 100 MLS/HR; Start at 18:00 Furosemide (Lasix) 20 mg DAILY@06 IV Last administered on 04/23/17 05:44; Admin Dose 20 MG; Start 04/18/17 at 18:30; Status Future Hold Fentanyl (Duragesic 12 Mcg/Hr Patch) 1 patch Q72H TRANSDERM Last administered on 04/28/17 07:12; Admin Dose 1 PATCH; Start 04/22/17 at 05:30 Morphine Sulfate (morphine) 1 mg Q4H PRN IV SEVERE PAIN LEVEL 7-10 Last administered on 04/26/17 20:25; Admin Dose 1 MG; Start 04/22/17 at 17:30 Metoclopramide HCl (Reglan) 10 mg Q6H PRN IV NAUSEA Last administered on 20:51; Admin Dose 10 MG; Start 04/22/17 at 21:00 Enoxaparin Sodium (Lovenox) 30 mg DAILY SC Last administered on 04/29/17 09:17 ; Admin Dose 30 MG; Start 04/23/17 at 20:30 Acetaminophen (Tylenol Supp) 650 mg Q6H PRN [place] FEVER GREATER THAN 100.6; Start 04/23/17 at 20:30 Acetaminophen (Tylenol Tab) 650 mg Q6H PRN PO PAIN AND OR ELEVATED TEMP Last administered on 04/29/17 05:25; Admin Dose 650 MG; Start 04/23/17 at 20:30 Lactobacillus Acidophilus/ Rhamnosus (Culturelle) 1 cap BID PO Last administered on 04/29/17t 09:16; Admin Dose 1 CAP; Start 04/24/17 at 11:30 Diagnostic Test (Pha) (Accu-Chek) 1 ea 02 XX ; Start 04/26/17 at 02:00 JAIME BULLARD MD Apr 29, 2017 09:59
--- NOTE | 2017-04-29 10:25 | CONS ---
Date/Time of Note Date/Time of Note DATE: 04/29/17 TIME: 10:22 Assessment/Plan Assessment/Plan Chief Complaint/Hosp Course - Severe sepsis due to pyogenic liver abscess, loculated pleural effusion - multiloculated pyogenic liver abscess s/p CT guided drainage catheter placement 04/15/2017, 04/23/2017, s/p repeat drainage 04/27/2017; cultures from gamma hemolytic strep, cultures from 04/23/2017 alpha hemolytic strep - Loculated pleural effusion likely secondary to hepatic process/Hepatic hydrothorax, R>L, s/p R thoracentesis on 04/20/2017, s/p chest tube placement on 04/22/2017 - nausea - Normocytic anemia requiring blood transfusion - Coagulopathy - improved - Transaminitis - slowly improving - Hyponatremia on admission - CoNS in urine culture with trivial pyuria, likely contaminant; pt asymptomatic - Hx of rectal CA s/p Low anterior resection 08/29/2016 - Severe protein calorie malnutrition - allergy to vancomycin recommendations: - ordered: abdominal XR to r/o SBO - will review the result of cultures from CT guided drainage of abdominal fluid from 04/27/2017 - continue amp/sulbactam (04/18/2017-); s/p linezolid and pip/tazo (04/13-2016). we recommend total 6 weeks - Pt requires a long-term antibiotic administration;we recommend repeat imaging prior to antibiotic cessation to ensure resolution - check weekly CBC and BMP while Pt's on long-term antibiotic management d/w Pt Problems: Consultation Date/Type/Reason Admit Date/Time Apr 13, 2017 at 19:51 Initial Consult Date 04/21/17 Type of Consultation: ID Referring Provider: DARREL BURT MD 24 HR Interval Summary Constitutional: no complaints Detailed Summary Eyes: no complaints ENT: no complaints Respiratory: pain (R sided), pleuritic pain, No cough, No shortness of breath, No sputum Cardiovascular: no complaints Gastrointestinal: nausea, pain (at external drainage catheter site), vomiting, No diarrhea Genitourinary: no complaints Musculoskeletal: no complaints Skin: no complaints Neurologic: no complaints Exam/Review of Systems Vital Signs Vitals Vital Signs Date Time Temp Pulse Resp B/P Pulse Ox O2 Delivery O2 Flow Rate FiO2 9/27/17 08:08 97 04/29/17 08:05 98.3 18 132/84 98 04/29/17 07:17 2.0 04/28/17 20:00 Nasal Cannula Intake and Output 04/28/17 04/28/17 04/29/17 15:00 23:00 07:00 Intake Total 750 ml 300 ml Output Total 5 ml Balance 750 ml 295 ml Exam Constitutional: frail Psych: nl mood/affect, no complaints Head: atraumatic, normocephalic Eyes: nl conjunctiva ENMT: nl external ears & nose, nl nasal mucosa & septum Respiratory: diminished breath sounds, other (chest tube on R side) Cardiovascular: nl pulses, regular rate and rhythm Gastrointestinal: non-tender, other (two external dainage catheter), soft, No distended Musculoskeletal: nl extremities to inspection Extremities: No edema 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: FOOD MANAGEMENT AIDE II-XII intact, 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, nl speech Skin: nl turgor Results Result Diagram: 04/29/17 0702 04/29/17 0702 Results 24 hrs Laboratory Tests Test 04/28/17 12:27 04/28/17 17:26 04/28/17 20:14 04/29/17 07:02 Bedside Glucose 129 134 124 White Blood Count 10.4 Red Blood Count 2.99 L Hemoglobin 8.9 L Hematocrit 27.4 L Mean Corpuscular Volume 91.6 Mean Corpuscular Hemoglobin 29.8 Mean Corpuscular Hemoglobin Concent 32.5 Red Cell Distribution Width 13.7 Platelet Count 395 Mean Platelet Volume 8.6 Neutrophils % 72.9 Lymphocytes % 13.6 L Monocytes % 12.2 H Eosinophils % 0.3 Basophils % 0.4 Nucleated Red Blood Cells % 0.0 Neutrophils # 7.6 H Lymphocytes # 1.4 Monocytes # 1.3 H Eosinophils # 0.0 Basophils # 0.0 Nucleated Red Blood Cells # 0.0 Sodium Level 133 L Potassium Level 4.0 Chloride Level 96 L Carbon Dioxide Level 33 H Anion Gap 8 Blood Urea Nitrogen 11 Creatinine 0.41 L Glucose Level 124 Calcium Level 8.8 Test 04/29/17 08:14 Bedside Glucose 120 Medications Medications Current Medications Miscellaneous Information 1 ea NOTE XX ; Start 04/13/17 at 21:30 Glucose (Glutose) 15 gm Q15M PRN PO DECREASED GLUCOSE; Start 04/13/17 at 21:30 Glucose (Glutose) 22.5 gm Q15M PRN PO DECREASED GLUCOSE; Start 04/13/17 at 21: 30 Dextrose (D50w Syringe) 25 ml Q15M PRN IV DECREASED GLUCOSE; Start 04/13/17 at 21:30 Dextrose (D50w Syringe) 50 ml Q15M PRN IV DECREASED GLUCOSE; Start 04/13/17 at 21:30 Glucagon (Glucagen) 1 mg Q15M PRN IM DECREASED GLUCOSE; Start 04/13/17 at 21:30 Glucose (Glutose) 15 gm Q15M PRN BUCCAL DECREASED GLUCOSE; Start 04/13/17 at 21 :30 Ondansetron HCl (Zofran Inj) 4 mg Q6 PRN IV NAUSEA AND/OR VOMITING Last administered on 04/26/17 20:25; Admin Dose 4 MG; Start 04/13/17 at 21:30 Guaifenesin/ Dextromethorphan (Robitussin Dm Liquid Cup) 5 ml Q4H PRN PO COUGH Last administered on 04/19/17 05:09; Admin Dose 5 ML; Start 04/15/17 at 16:30 Pantoprazole (Protonix Tab) 40 mg DAILY@06 PO Last administered on 04/29/17 05 :05; Admin Dose 40 MG; Start 04/17/17 at 06:00 Acetaminophen (Tylenol Tab) 500 mg Q6H PRN PO PAIN AND OR ELEVATED TEMP Last administered on 04/28/17 18:33; Admin Dose 500 MG; Start 04/17/17 at 03:00 Magnesium Hydroxide 30 ml 30 ml DAILY PRN PO CONSTIPATION Last administered on 04/28/17 18:33; Admin Dose 30 ML; Start 04/17/17 at 11:30 Ampicillin Sodium/ Sulbactam Sodium (Unasyn 1.5gm/NS (Pmx)) 50 ml @ 100 mls/hr Q6 IVPB Last administered on 04/29/17 05:05; Admin Dose 100 MLS/HR; Start at 18:00 Furosemide (Lasix) 20 mg DAILY@06 IV Last administered on 04/23/17 05:44; Admin Dose 20 MG; Start 04/18/17 at 18:30; Status Future Hold Fentanyl (Duragesic 12 Mcg/Hr Patch) 1 patch Q72H TRANSDERM Last administered on 04/28/17 07:12; Admin Dose 1 PATCH; Start 04/22/17 at 05:30 Morphine Sulfate (morphine) 1 mg Q4H PRN IV SEVERE PAIN LEVEL 7-10 Last administered on 04/26/17 20:25; Admin Dose 1 MG; Start 04/22/17 at 17:30 Metoclopramide HCl (Reglan) 10 mg Q6H PRN IV NAUSEA Last administered on 20:51; Admin Dose 10 MG; Start 04/22/17 at 21:00 Enoxaparin Sodium (Lovenox) 30 mg DAILY SC Last administered on 04/29/17 09:17 ; Admin Dose 30 MG; Start 04/23/17 at 20:30 Acetaminophen (Tylenol Supp) 650 mg Q6H PRN [place] FEVER GREATER THAN 100.6; Start 04/23/17 at 20:30 Acetaminophen (Tylenol Tab) 650 mg Q6H PRN PO PAIN AND OR ELEVATED TEMP Last administered on 04/29/17 05:25; Admin Dose 650 MG; Start 04/23/17 at 20:30 Lactobacillus Acidophilus/ Rhamnosus (Culturelle) 1 cap BID PO Last administered on 04/29/17 09:16; Admin Dose 1 CAP; Start 04/24/17 at 11:30 Diagnostic Test (Pha) (Accu-Chek) 1 ea 02 XX ; Start 04/26/17 at 02:00 AARON ANSARI M.D. Apr 29, 2017 10:25
--- NOTE | 2017-04-29 11:36 | RADRPT ---
PROCEDURE: XR Abdomen. CLINICAL INDICATION: Abdomen pain. TECHNIQUE: AP supine abdomen x-ray. COMPARISON: Images from CT guided liver abscess drainage catheter placement on 04/27/2017. FINDINGS: There are 2 drainage catheter is in the liver as seen on the prior studies. The stomach is mildly di stended. There is a single dilated loop of small bowel in the lower abdomen/pelvis measuring 4.3 cm. Gas is present in the small bowel and colon. There is no evidence of obstruction. There are no abnormal calcifications overlying the urinary tracts. There are degenerative changes of the spine. IMPRESSION: 1. Drainage catheters seen in the liver as seen on prior studies. 2. Mildly distended stomach. 3. Possible ileus with single dilated loop of small bowel in the lower abdomen/pelvis. 4. No evidence of obstruction. 5. Degenerative changes of the spine. RPTAT: QQ .Logan Decker MD, Date Time Electronically viewed and signed by .Logan Decker MD, on 04/29/2017 11:35 .R/
--- NOTE | 2017-04-29 17:17 | PN ---
Date/Time of Note Date/Time of Note DATE: 04/29/17 TIME: 17:17 Assessment/Plan Lines/Catheters IV Catheter Type (from Nrsg): Saline Lock Khan in Place (from Nrsg): No Assessment/Plan Chief Complaint/Hosp Course 66-year-old female with a history of colon/rectal ca presenting with sepsis due to liver abscesses, whose course has been complicated by mild hypoxemic resp insufficiency with enlarging R.> L effusions. SP CT placement still with large effusion will need VATS decortication if she does not respond to CT Sxn Continue antibiotics per ID may need to defer thoracic surgery until liver abscess resolved. Continue percutaneous drainage of abdominal abscess Problems: Subjective 24 Hr Interval Summary Constitutional: improved Pain Control: mild Exam/Review of Systems Vital Signs Vitals Vital Signs Date Time Temp Pulse Resp B/P Pulse Ox O2 Delivery O2 Flow Rate FiO2 04/29/17 16:24 82 04/29/17 15:45 98.1 18 140/80 97 04/29/17 08:15 Nasal Cannula 2.0 Intake and Output 04/28/17 04/28/17 04/29/17 15:00 23:00 07:00 Intake Total 750 ml 300 ml Output Total 5 ml Balance 750 ml 295 ml Exam Eyes: EOMI, nl conjunctiva, nl lids, nl sclera ENMT: mucosa pink and moist, nl external ears & nose, nl lips & teeth, nl nasal mucosa & septum Neck: non-tender, supple Respiratory: clear to auscultation, normal air movement Cardiovascular: nl pulses, regular rate and rhythm Results Result Diagram: 04/29/17 0702 04/29/17 0702 ADRIAN NO MD Apr 29, 2017 17:17
--- NOTE | 2017-04-29 18:16 | PN ---
Date/Time of Note Date/Time of Note DATE: 04/29/17 TIME: 18:14 Assessment/Plan VTE Prophylaxis VTE Prophylaxis Intervention: SCD's Lines/Catheters IV C[facility]ter Type (from [facility]): Saline Lock Urinary Cath still in place: No Assessment/Plan Chief Complaint/Hosp Course Patient complains of abdominal tenderness however able to tolerate diet well, denies any nausea vomiting, BM today. Assessment/Plan - Bilateral pleural effusions right more than left, status post right thoracentesis 04/20. S/p right chest tube insertion on 04/[address] Jackson, vascular surgery. S/p right thoracentesis 04/26. - Acute respiratory failure secondary to #1, Dr. Damico is following in pulmonology consultation continue oxygen oxygen supplementation - Severe sepsis 2/2 to liver abscess, resolving. Continue antibiotics per ID. Dr. Diana is following infection disease consultation - Liver abscess unchanged per recent CT, s/p CT guided drainage 04/15/2017, s/p CT guided percutaneous drainage of liver abscess 04/23, status post CT-guided liver abscess drainage 04/27 - Normocytic anemia requiring blood transfusion - Hx of rectal CA s/p Low anterior resection 08/29/2016 Further recommendations based on clinical course. Plan of care discussed with Dr. Dior Problems: Exam/Review of Systems Vital Signs Vitals Vital Signs Date Time Temp Pulse Resp B/P Pulse Ox O2 Delivery O2 Flow Rate FiO2 04/29/17 16:24 82 04/29/17 15:45 98.1 18 140/80 97 04/29/17 08:15 Nasal Cannula 2.0 Intake and Output 04/28/17 04/28/17 04/29/17 15:00 23:00 07:00 Intake Total 750 ml 300 ml Output Total 5 ml Balance 750 ml 295 ml Exam Constitutional: alert Neck: supple Respiratory: diminished breath sounds Cardiovascular: nl pulses Gastrointestinal: other (Hepatic drain), soft Extremities: normal pulses Constitutional: alert, oriented, well developed Results Result Diagram: 04/29/17 0702 04/29/17 0702 Results 24 hrs Laboratory Tests Test 04/28/17 20:14 04/29/17 07:02 04/29/17 08:14 04/29/17 11:59 Bedside Glucose 124 120 111 White Blood Count 10.4 Red Blood Count 2.99 L Hemoglobin 8.9 L Hematocrit 27.4 L Mean Corpuscular Volume 91.6 Mean Corpuscular Hemoglobin 29.8 Mean Corpuscular Hemoglobin Concent 32.5 Red Cell Distribution Width 13.7 Platelet Count 395 Mean Platelet Volume 8.6 Neutrophils % 72.9 Lymphocytes % 13.6 L Monocytes % 12.2 H Eosinophils % 0.3 Basophils % 0.4 Nucleated Red Blood Cells % 0.0 Neutrophils # 7.6 H Lymphocytes # 1.4 Monocytes # 1.3 H Eosinophils # 0.0 Basophils # 0.0 Nucleated Red Blood Cells # 0.0 Sodium Level 133 L Potassium Level 4.0 Chloride Level 96 L Carbon Dioxide Level 33 H Anion Gap 8 Blood Urea Nitrogen 11 Creatinine 0.41 L Glucose Level 124 Calcium Level 8.8 Test 04/29/17 17:16 Bedside Glucose 105 Medications Medications Current Medications Miscellaneous Information 1 ea NOTE XX ; Start 04/13/17 at 21:30 Glucose (Glutose) 15 gm Q15M PRN PO DECREASED GLUCOSE; Start 04/13/17 at 21:30 Glucose (Glutose) 22.5 gm Q15M PRN PO DECREASED GLUCOSE; Start 04/13/17 at 21: 30 Dextrose (D50w Syringe) 25 ml Q15M PRN IV DECREASED GLUCOSE; Start 04/13/17 at 21:30 Dextrose (D50w Syringe) 50 ml Q15M PRN IV DECREASED GLUCOSE; Start 04/13/17 at 21:30 Glucagon (Glucagen) 1 mg Q15M PRN IM DECREASED GLUCOSE; Start 04/13/17 at 21:30 Glucose (Glutose) 15 gm Q15M PRN BUCCAL DECREASED GLUCOSE; Start 04/13/17 at 21 :30 Ondansetron HCl (Zofran Inj) 4 mg Q6 PRN IV NAUSEA AND/OR VOMITING Last administered on 04/26/17 20:25; Admin Dose 4 MG; Start 04/13/17 at 21:30 Guaifenesin/ Dextromethorphan (Robitussin Dm Liquid Cup) 5 ml Q4H PRN PO COUGH Last administered on 04/19/17 05:09; Admin Dose 5 ML; Start 04/15/17 at 16:30 Pantoprazole (Protonix Tab) 40 mg DAILY@06 PO Last administered on 04/29/17 05 :05; Admin Dose 40 MG; Start 04/17/17 at 06:00 Acetaminophen (Tylenol Tab) 500 mg Q6H PRN PO PAIN AND OR ELEVATED TEMP Last administered on 04/28/17 18:33; Admin Dose 500 MG; Start 04/17/17 at 03:00 Magnesium Hydroxide 30 ml 30 ml DAILY PRN PO CONSTIPATION Last administered on 04/28/17 18:33; Admin Dose 30 ML; Start 04/17/17 at 11:30 Ampicillin Sodium/ Sulbactam Sodium (Unasyn 1.5gm/NS (Pmx)) 50 ml @ 100 mls/hr Q6 IVPB Last administered on 04/29/17 17:21; Admin Dose 100 MLS/HR; Start at 18:00 Furosemide (Lasix) 20 mg DAILY@06 IV Last administered on 04/23/17 05:44; Admin Dose 20 MG; Start 04/18/17 at 18:30; Status Future Hold Fentanyl (Duragesic 12 Mcg/Hr Patch) 1 patch Q72H TRANSDERM Last administered on 04/28/17 07:12; Admin Dose 1 PATCH; Start 04/22/17 at 05:30 Morphine Sulfate (morphine) 1 mg Q4H PRN IV SEVERE PAIN LEVEL 7-10 Last administered on 04/26/17 20:25; Admin Dose 1 MG; Start 04/22/17 at 17:30 Metoclopramide HCl (Reglan) 10 mg Q6H PRN IV NAUSEA Last administered on 20:51; Admin Dose 10 MG; Start 04/22/17 at 21:00 Enoxaparin Sodium (Lovenox) 30 mg DAILY SC Last administered on 04/29/17 09:17 ; Admin Dose 30 MG; Start 04/23/17 at 20:30 Acetaminophen (Tylenol Supp) 650 mg Q6H PRN [place] FEVER GREATER THAN 100.6; Start 04/23/17 at 20:30 Acetaminophen (Tylenol Tab) 650 mg Q6H PRN PO PAIN AND OR ELEVATED TEMP Last administered on 04/29/17 17:21; Admin Dose 650 MG; Start 04/23/17 at 20:30 Lactobacillus Acidophilus/ Rhamnosus (Culturelle) 1 cap BID PO Last administered on 04/29/17 09:16; Admin Dose 1 CAP; Start 04/24/17 at 11:30 Diagnostic Test (Pha) (Accu-Chek) 1 ea 02 XX ; Start 04/26/17 at 02:00 WINDY EMERY Apr 29, 2017 18:16
--- NOTE | 2017-04-29 19:26 | CONS ---
Date/Time of Note Date/Time of Note DATE: 04/29/17 TIME: 19:24 Assessment/Plan Assessment/Plan Chief Complaint/Hosp Course Problems: Additional Assessment/Plan 1. Acute hyponatremia 2/2 Hypovolemic hyponatremia 2. sepsis due to liver abscess 3. Hepatic abscess oN CT scan s/p CT guided drainage on 04/15/17 and 04/23/17 4. Acute transaminitis 5. h/o Colon CA s/p previous Surgery 6. Hypokalemia 7. Hyponatremia Plan : pt went into ileus, stomach distended on KUB Na 133 Cr normal, will continue lasix 20mg IV daily since she can not take PO lasix Monitor electroltytes and replace as needed. Cr stable will follow up Consultation Date/Type/Reason Admit Date/Time Apr 13, 2017 at 19:51 Initial Consult Date 04/13/17 Type of Consultation: NEPHROLOGY Referring Provider: DARREL BURT MD Exam/Review of Systems Vital Signs Vitals Vital Signs Date Time Temp Pulse Resp B/P Pulse Ox O2 Delivery O2 Flow Rate FiO2 04/29/17 16:24 82 04/29/17 15:45 98.1 18 140/80 97 04/29/17 08:15 Nasal Cannula 2.0 Intake and Output 04/28/17 04/28/17 04/29/17 15:00 23:00 07:00 Intake Total 750 ml 300 ml Output Total 5 ml Balance 750 ml 295 ml Exam Constitutional: frail, other (lethargic) Respiratory: diminished breath sounds, other (chest tube) Cardiovascular: nl pulses, regular rate and rhythm Gastrointestinal: non-tender, other (two external drainage catheters-bag in place), soft Musculoskeletal: nl extremities to inspection Extremities: No edema 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: lethargic Results Result Diagram: 04/29/17 0702 04/29/17 0702 Results 24 hrs Laboratory Tests Test 04/28/17 20:14 04/29/17 07:02 04/29/17 08:14 04/29/17 11:59 Bedside Glucose 124 120 111 White Blood Count 10.4 Red Blood Count 2.99 L Hemoglobin 8.9 L Hematocrit 27.4 L Mean Corpuscular Volume 91.6 Mean Corpuscular Hemoglobin 29.8 Mean Corpuscular Hemoglobin Concent 32.5 Red Cell Distribution Width 13.7 Platelet Count 395 Mean Platelet Volume 8.6 Neutrophils % 72.9 Lymphocytes % 13.6 L Monocytes % 12.2 H Eosinophils % 0.3 Basophils % 0.4 Nucleated Red Blood Cells % 0.0 Neutrophils # 7.6 H Lymphocytes # 1.4 Monocytes # 1.3 H Eosinophils # 0.0 Basophils # 0.0 Nucleated Red Blood Cells # 0.0 Sodium Level 133 L Potassium Level 4.0 Chloride Level 96 L Carbon Dioxide Level 33 H Anion Gap 8 Blood Urea Nitrogen 11 Creatinine 0.41 L Glucose Level 124 Calcium Level 8.8 Test 04/29/17 17:16 Bedside Glucose 105 Medications Medications Current Medications Miscellaneous Information 1 ea NOTE XX ; Start 04/13/17 at 21:30 Glucose (Glutose) 15 gm Q15M PRN PO DECREASED GLUCOSE; Start 04/13/17 at 21:30 Glucose (Glutose) 22.5 gm Q15M PRN PO DECREASED GLUCOSE; Start 04/13/17 at 21: 30 Dextrose (D50w Syringe) 25 ml Q15M PRN IV DECREASED GLUCOSE; Start 04/13/17 at 21:30 Dextrose (D50w Syringe) 50 ml Q15M PRN IV DECREASED GLUCOSE; Start 04/13/17 at 21:30 Glucagon (Glucagen) 1 mg Q15M PRN IM DECREASED GLUCOSE; Start 04/13/17 at 21:30 Glucose (Glutose) 15 gm Q15M PRN BUCCAL DECREASED GLUCOSE; Start 04/13/17 at 21 :30 Ondansetron HCl (Zofran Inj) 4 mg Q6 PRN IV NAUSEA AND/OR VOMITING Last administered on 04/26/17 20:25; Admin Dose 4 MG; Start 04/13/17 at 21:30 Guaifenesin/ Dextromethorphan (Robitussin Dm Liquid Cup) 5 ml Q4H PRN PO COUGH Last administered on 04/19/17 05:09; Admin Dose 5 ML; Start 04/15/17 at 16:30 Pantoprazole (Protonix Tab) 40 mg DAILY@06 PO Last administered on 04/29/17 05 :05; Admin Dose 40 MG; Start 04/17/17 at 06:00 Acetaminophen (Tylenol Tab) 500 mg Q6H PRN PO PAIN AND OR ELEVATED TEMP Last administered on 04/28/17 18:33; Admin Dose 500 MG; Start 04/17/17 at 03:00 Magnesium Hydroxide 30 ml 30 ml DAILY PRN PO CONSTIPATION Last administered on 04/28/17 18:33; Admin Dose 30 ML; Start 04/17/17 at 11:30 Ampicillin Sodium/ Sulbactam Sodium (Unasyn 1.5gm/NS (Pmx)) 50 ml @ 100 mls/hr Q6 IVPB Last administered on 04/29/17 17:21; Admin Dose 100 MLS/HR; Start at 18:00 Furosemide (Lasix) 20 mg DAILY@06 IV Last administered on 04/23/17 05:44; Admin Dose 20 MG; Start 04/18/17 at 18:30; Status Future Hold Fentanyl (Duragesic 12 Mcg/Hr Patch) 1 patch Q72H TRANSDERM Last administered on 04/28/17 07:12; Admin Dose 1 PATCH; Start 04/22/17 at 05:30 Morphine Sulfate (morphine) 1 mg Q4H PRN IV SEVERE PAIN LEVEL 7-10 Last administered on 04/26/17 20:25; Admin Dose 1 MG; Start 04/22/17 at 17:30 Metoclopramide HCl (Reglan) 10 mg Q6H PRN IV NAUSEA Last administered on 20:51; Admin Dose 10 MG; Start 04/22/17 at 21:00 Enoxaparin Sodium (Lovenox) 30 mg DAILY SC Last administered on 04/29/17 09:17 ; Admin Dose 30 MG; Start 04/23/17 at 20:30 Acetaminophen (Tylenol Supp) 650 mg Q6H PRN [place] FEVER GREATER THAN 100.6; Start 04/23/17 at 20:30 Acetaminophen (Tylenol Tab) 650 mg Q6H PRN PO PAIN AND OR ELEVATED TEMP Last administered on 04/29/17 17:21; Admin Dose 650 MG; Start 04/23/17 at 20:30 Lactobacillus Acidophilus/ Rhamnosus (Culturelle) 1 cap BID PO Last administered on 04/29/17 09:16; Admin Dose 1 CAP; Start 04/24/17 at 11:30 Diagnostic Test (Pha) (Accu-Chek) 1 ea 02 XX ; Start 04/26/17 at 02:00 NGOC GARZA MD Apr 29, 2017 19:26
[2017-04-29] MEDS: METOCLOPRAMIDE 10 MG INJ IV PRN (20:18)
[2017-04-30] VITALS (12 sets, daily range): BP systolic 107–139; BP diastolic 57–78; PULSE 69–92; RESP 18–20
[2017-04-30] MEDS: PANTOPRAZOLE (EC) 40 MG TAB PO SCH (05:17)
[2017-04-30] MEDS: AMPICILLIN/SULB 1.5GM/NS (PMX) 50 ML IVPB SCH ×4 (05:18→23:48)
[2017-04-30 07:20] LABS: BASOPHILS % 0.4 % (0.0-2.0); EOSINOPHILS # 0.1 10^3/ul (0.0-0.5); EOSINOPHILS % 0.7 % (0.0-7.0); HEMATOCRIT 27.4 % (37.0-47.0); HEMOGLOBIN 9.1 g/dl (12.0-16.0); LYMPHOCYTES # 1.5 10^3/ul (0.8-2.9); LYMPHOCYTES % 14.1 % (15.0-51.0); MEAN CORPUSCULAR HEMOGLOBIN 30.4 pg (29.0-33.0); MEAN CORPUSCULAR HGB CONC 33.2 g/dl (32.0-37.0); MEAN CORPUSCULAR VOLUME 91.6 fl (82.0-101.0); MEAN PLATELET VOLUME 8.5 fl (7.4-10.4); MONOCYTE # 1.2 10^3/ul (0.3-0.9); MONOCYTES % 11.4 % (0.0-11.0); NEUTROPHIL # 7.6 10^3/ul (1.6-7.5); NEUTROPHILS % 72.9 % (39.0-77.0); PLATELET COUNT 471 10^3/UL (140-415); RED BLOOD COUNT 2.99 10^6/ul (4.20-5.40); RED CELL DISTRIBUTION WIDTH 13.6 % (11.5-14.5); WHITE BLOOD COUNT 10.4 10^3/ul (4.8-10.8)
[2017-04-30 07:43] LABS: CALCIUM 8.6 mg/dl (8.4-10.2); CREATININE 0.37 mg/dl (0.44-1.00); POTASSIUM 4.1 mmol/L (3.5-5.1)
[2017-04-30] MEDS: Insulin NOVOLOG SS MILD Algorithm (SS with meals and bedtime) SC SCH ×4 (08:41→20:43)
[2017-04-30] MEDS: FUROSEMIDE 20 MG INJ IV SCH (09:46)
[2017-04-30] MEDS: LACTOBACILLUS RHAMNOSUS CAP PO SCH ×2 (09:46→20:39)
[2017-04-30] MEDS: ENOXAPARIN 30 MG/0.3 ML SYG SC SCH (09:47)
[2017-04-30] MEDS: ACETAMINOPHEN 325 MG TAB PO PRN ×2 (09:48→23:49)
--- NOTE | 2017-04-30 10:34 | CONS ---
Date/Time of Note Date/Time of Note DATE: 04/30/17 TIME: 10:32 Assessment/Plan Assessment/Plan Additional Assessment/Plan Recommendations; 1. Patient admitted with hepatic abscess status post percutaneous drain placement. 2. Development of bilateral loculated pleural effusion more pronounced in the right lung with pneumonia. Continue current treatment. Patient being followed by a thoracic surgery and a VATS procedure is planned once patient's hepatic abscess improves. Consultation Date/Type/Reason Admit Date/Time Apr 13, 2017 at 19:51 Initial Consult Date 04/15/17 Type of Consultation: Pulmonary Referring Provider: DARREL BURT MD 24 HR Interval Summary Free Text/Dictation Patient condition stable. Complains of very minimal shortness of breath. Denies any fever or chills. Denies any nausea vomiting. General exam; elderly woman, awake alert, currently in no distress. Exam/Review of Systems Vital Signs Vitals Vital Signs Date Time Temp Pulse Resp B/P Pulse Ox O2 Delivery O2 Flow Rate FiO2 04/30/17 08:10 80 04/30/17 08:00 Nasal Cannula 2.0 04/30/17 07:49 98.2 20 137/70 98 Intake and Output 04/29/17 04/29/17 04/30/17 15:00 23:00 07:00 Intake Total 50 ml 600 ml 290 ml Balance 50 ml 600 ml 290 ml Exam HEENT exam; supple neck, no JVD. No lymphadenopathy. Midline trachea. No thyromegaly. Pharynx is clear. Patient has few remaining teeth. Chest exam; right-sided chest tube in place. Decreased breath sounds right lung. Left lung is clear to auscultation. S1-S2 audible, no murmurs. Regular rhythm. Abdomen exam; soft, nontender. No organomegaly. Right upper quadrant drain in place. Next Extremity exam; no peripheral edema. [employer] exam; no focal motor deficit. Results Result Diagram: 04/30/17 0646 04/30/17 0646 Results 24 hrs Laboratory Tests Test 04/29/17 11:59 04/29/17 17:16 04/29/17 20:07 04/30/17 06:46 Bedside Glucose 111 105 118 White Blood Count 10.4 Red Blood Count 2.99 L Hemoglobin 9.1 L Hematocrit 27.4 L Mean Corpuscular Volume 91.6 Mean Corpuscular Hemoglobin 30.4 Mean Corpuscular Hemoglobin Concent 33.2 Red Cell Distribution Width 13.6 Platelet Count 471 H Mean Platelet Volume 8.5 Neutrophils % 72.9 Lymphocytes % 14.1 L Monocytes % 11.4 H Eosinophils % 0.7 Basophils % 0.4 Nucleated Red Blood Cells % 0.0 Neutrophils # 7.6 H Lymphocytes # 1.5 Monocytes # 1.2 H Eosinophils # 0.1 Basophils # 0.0 Nucleated Red Blood Cells # 0.0 Sodium Level 133 L Potassium Level 4.1 Chloride Level 96 L Carbon Dioxide Level 28 Anion Gap 13 Blood Urea Nitrogen 10 Creatinine 0.37 L Glucose Level 96 Calcium Level 8.6 Test 04/30/17 08:41 Bedside Glucose 116 Medications Medications Current Medications Miscellaneous Information 1 ea NOTE XX ; Start 04/13/17 at 21:30 Glucose (Glutose) 15 gm Q15M PRN PO DECREASED GLUCOSE; Start 04/13/17 at 21:30 Glucose (Glutose) 22.5 gm Q15M PRN PO DECREASED GLUCOSE; Start 04/13/17 at 21: 30 Dextrose (D50w Syringe) 25 ml Q15M PRN IV DECREASED GLUCOSE; Start 04/13/17 at 21:30 Dextrose (D50w Syringe) 50 ml Q15M PRN IV DECREASED GLUCOSE; Start 04/13/17 at 21:30 Glucagon (Glucagen) 1 mg Q15M PRN IM DECREASED GLUCOSE; Start 04/13/17 at 21:30 Glucose (Glutose) 15 gm Q15M PRN BUCCAL DECREASED GLUCOSE; Start 04/13/17 at 21 :30 Ondansetron HCl (Zofran Inj) 4 mg Q6 PRN IV NAUSEA AND/OR VOMITING Last administered on 04/26/17 20:25; Admin Dose 4 MG; Start 04/13/17 at 21:30 Guaifenesin/ Dextromethorphan (Robitussin Dm Liquid Cup) 5 ml Q4H PRN PO COUGH Last administered on 04/19/17 05:09; Admin Dose 5 ML; Start 04/15/17 at 16:30 Pantoprazole (Protonix Tab) 40 mg DAILY@06 PO Last administered on 04/30/17 05 :17; Admin Dose 40 MG; Start 04/17/17 at 06:00 Acetaminophen (Tylenol Tab) 500 mg Q6H PRN PO PAIN AND OR ELEVATED TEMP Last administered on 04/28/17 18:33; Admin Dose 500 MG; Start 04/17/17 at 03:00 Magnesium Hydroxide 30 ml 30 ml DAILY PRN PO CONSTIPATION Last administered on 04/28/17 18:33; Admin Dose 30 ML; Start 04/17/17 at 11:30 Ampicillin Sodium/ Sulbactam Sodium (Unasyn 1.5gm/NS (Pmx)) 50 ml @ 100 mls/hr Q6 IVPB Last administered on 04/30/17 05:18; Admin Dose 100 MLS/HR; Start at 18:00 Fentanyl (Duragesic 12 Mcg/Hr Patch) 1 patch Q72H TRANSDERM Last administered on 04/28/17 07:12; Admin Dose 1 PATCH; Start 04/22/17 at 05:30 Morphine Sulfate (morphine) 1 mg Q4H PRN IV SEVERE PAIN LEVEL 7-10 Last administered on 04/26/17 20:25; Admin Dose 1 MG; Start 04/22/17 at 17:30 Metoclopramide HCl (Reglan) 10 mg Q6H PRN IV NAUSEA Last administered on 20:18; Admin Dose 10 MG; Start 04/22/17 at 21:00 Enoxaparin Sodium (Lovenox) 30 mg DAILY SC Last administered on 04/30/17 09:47 ; Admin Dose 30 MG; Start 04/23/17 at 20:30 Acetaminophen (Tylenol Supp) 650 mg Q6H PRN [place] FEVER GREATER THAN 100.6; Start 04/23/17 at 20:30 Acetaminophen (Tylenol Tab) 650 mg Q6H PRN PO PAIN AND OR ELEVATED TEMP Last administered on 04/30/17 09:48; Admin Dose 650 MG; Start 04/23/17 at 20:30 Lactobacillus Acidophilus/ Rhamnosus (Culturelle) 1 cap BID PO Last administered on 04/30/17 09:46; Admin Dose 1 CAP; Start 04/24/17 at 11:30 Diagnostic Test (Pha) (Accu-Chek) 1 ea 02 XX ; Start 04/26/17 at 02:00 Furosemide (Lasix) 20 mg DAILY IV Last administered on 04/30/17 09:46; Admin Dose 20 MG; Start 04/30/17 at 09:00 LINDA GARCIA Apr 30, 2017 10:34
--- NOTE | 2017-04-30 12:29 | CONS ---
Date/Time of Note Date/Time of Note DATE: 04/30/17 TIME: 12:26 Assessment/Plan Assessment/Plan Additional Assessment/Plan 1.Hypotension-now improved/stable - better overall, will monitor closely 2.Abnl ecg-with ST elevations anterior-negative trop x 3/NL EF by echo. NO CP - NO CP now, no intervention planned 3.Liver abscess s/p CT guided drainage - con't to improve gradually - surgical treatment plan in place 4.H/O lung ca s/p resection with lung nodules by CT? 5.Lung nodules - pulmonary follows 6. Hyponatremia 7. Effusion s/p CT with ongoing effusion - seen CT surgery not - VATS likely, OK to proceed from cardiac standpoint - will follow now Consultation Date/Type/Reason Admit Date/Time Apr 13, 2017 at 19:51 Initial Consult Date 04/13/17 Type of Consultation: Pulmonary Referring Provider: DARREL BURT MD 24 HR Interval Summary Free Text/Dictation NO acute events - VATS and chest tube Rx per CT team ROS: No fever, no chills, no nausea, no vomiting, no diarrhea/constipation No recent weight changes No chest pain, no PND, no orthopnea -+ SOB No dizziness, blurred vision No thirst, no heat or cold intolerance Exam/Review of Systems Vital Signs Vitals Vital Signs Date Time Temp Pulse Resp B/P Pulse Ox O2 Delivery O2 Flow Rate FiO2 04/30/17 11:35 99.1 90 20 124/78 98 04/30/17 08:00 Nasal Cannula 2.0 Intake and Output 04/29/17 04/29/17 04/30/17 15:00 23:00 07:00 Intake Total 50 ml 600 ml 290 ml Balance 50 ml 600 ml 290 ml Exam General: WN/WD/NAD, AOx 3 HEENT: Unicetric/atraumatic/EOMI (follows commands) NECK: JVD elevated, no thyromegaly Lymph: no lymphadenopathy HEART: regular with no S3, II/ systolic murmur at apex LUNGS: Coarse sounds ABD: soft, NT, ND, +BS : Intact Neuro: non focal SKIN: chronic changes EXT: trace edema Results Result Diagram: 04/30/17 0646 04/30/17 0646 Results 24 hrs Laboratory Tests Test 04/29/17 17:16 04/29/17 20:07 04/30/17 06:46 04/30/17 08:41 Bedside Glucose 105 118 116 White Blood Count 10.4 Red Blood Count 2.99 L Hemoglobin 9.1 L Hematocrit 27.4 L Mean Corpuscular Volume 91.6 Mean Corpuscular Hemoglobin 30.4 Mean Corpuscular Hemoglobin Concent 33.2 Red Cell Distribution Width 13.6 Platelet Count 471 H Mean Platelet Volume 8.5 Neutrophils % 72.9 Lymphocytes % 14.1 L Monocytes % 11.4 H Eosinophils % 0.7 Basophils % 0.4 Nucleated Red Blood Cells % 0.0 Neutrophils # 7.6 H Lymphocytes # 1.5 Monocytes # 1.2 H Eosinophils # 0.1 Basophils # 0.0 Nucleated Red Blood Cells # 0.0 Sodium Level 133 L Potassium Level 4.1 Chloride Level 96 L Carbon Dioxide Level 28 Anion Gap 13 Blood Urea Nitrogen 10 Creatinine 0.37 L Glucose Level 96 Calcium Level 8.6 Medications Medications Current Medications Miscellaneous Information 1 ea NOTE XX ; Start 04/13/17 at 21:30 Glucose (Glutose) 15 gm Q15M PRN PO DECREASED GLUCOSE; Start 04/13/17 at 21:30 Glucose (Glutose) 22.5 gm Q15M PRN PO DECREASED GLUCOSE; Start 04/13/17 at 21: 30 Dextrose (D50w Syringe) 25 ml Q15M PRN IV DECREASED GLUCOSE; Start 04/13/17 at 21:30 Dextrose (D50w Syringe) 50 ml Q15M PRN IV DECREASED GLUCOSE; Start 04/13/17 at 21:30 Glucagon (Glucagen) 1 mg Q15M PRN IM DECREASED GLUCOSE; Start 04/13/17 at 21:30 Glucose (Glutose) 15 gm Q15M PRN BUCCAL DECREASED GLUCOSE; Start 04/13/17 at 21 :30 Ondansetron HCl (Zofran Inj) 4 mg Q6 PRN IV NAUSEA AND/OR VOMITING Last administered on 04/26/17 20:25; Admin Dose 4 MG; Start 04/13/17 at 21:30 Guaifenesin/ Dextromethorphan (Robitussin Dm Liquid Cup) 5 ml Q4H PRN PO COUGH Last administered on 04/19/17 05:09; Admin Dose 5 ML; Start 04/15/17 at 16:30 Pantoprazole (Protonix Tab) 40 mg DAILY@06 PO Last administered on 04/30/17 05 :17; Admin Dose 40 MG; Start 04/17/17 at 06:00 Acetaminophen (Tylenol Tab) 500 mg Q6H PRN PO PAIN AND OR ELEVATED TEMP Last administered on 04/28/17 18:33; Admin Dose 500 MG; Start 04/17/17 at 03:00 Magnesium Hydroxide 30 ml 30 ml DAILY PRN PO CONSTIPATION Last administered on 04/28/17 18:33; Admin Dose 30 ML; Start 04/17/17 at 11:30 Ampicillin Sodium/ Sulbactam Sodium (Unasyn 1.5gm/NS (Pmx)) 50 ml @ 100 mls/hr Q6 IVPB Last administered on 04/30/17 05:18; Admin Dose 100 MLS/HR; Start at 18:00 Fentanyl (Duragesic 12 Mcg/Hr Patch) 1 patch Q72H TRANSDERM Last administered on 04/28/17 07:12; Admin Dose 1 PATCH; Start 04/22/17 at 05:30 Morphine Sulfate (morphine) 1 mg Q4H PRN IV SEVERE PAIN LEVEL 7-10 Last administered on 04/26/17 20:25; Admin Dose 1 MG; Start 04/22/17 at 17:30 Metoclopramide HCl (Reglan) 10 mg Q6H PRN IV NAUSEA Last administered on 20:18; Admin Dose 10 MG; Start 04/22/17 at 21:00 Enoxaparin Sodium (Lovenox) 30 mg DAILY SC Last administered on 04/30/17 09:47 ; Admin Dose 30 MG; Start 04/23/17 at 20:30 Acetaminophen (Tylenol Supp) 650 mg Q6H PRN [place] FEVER GREATER THAN 100.6; Start 04/23/17 at 20:30 Acetaminophen (Tylenol Tab) 650 mg Q6H PRN PO PAIN AND OR ELEVATED TEMP Last administered on 04/30/17 09:48; Admin Dose 650 MG; Start 04/23/17 at 20:30 Lactobacillus Acidophilus/ Rhamnosus (Culturelle) 1 cap BID PO Last administered on 04/30/17 09:46; Admin Dose 1 CAP; Start 04/24/17 at 11:30 Diagnostic Test (Pha) (Accu-Chek) 1 ea 02 XX ; Start 04/26/17 at 02:00 Furosemide (Lasix) 20 mg DAILY IV Last administered on 04/30/17t 09:46; Admin Dose 20 MG; Start 04/30/17 at 09:00 JAIME BULLARD MD Apr 30, 2017 12:29
--- NOTE | 2017-04-30 15:00 | RADRPT ---
PROCEDURE: XR Abdomen CLINICAL INDICATION: Abdominal pain, constipation TECHNIQUE: An AP supine radiograph of the abdomen was submitted. COMPARISON: 04/29/2017 FINDINGS: To pigtail drainage catheters again project through the right upper quadrant of the abdomen. There is decrease stool within the colon and the bowel gas pattern is nonspecific without evidence o f bowel obstruction. The liver appears enlarged. No discrete mass is evident. Phleboliths are seen in the pelvis. The osseous elements appear unremarkable. IMPRESSION: 1. To pigtail drainage catheters again project in the right upper quadrant of the abdomen. 2. Nonspecific bowel gas pattern with less stool seen to the colon. 3. Hepatomegaly, unchanged. Physician Theresa Date Time Electronically viewed and signed by Physician Theresa on 04/30/2017 15:00 /
--- NOTE | 2017-04-30 18:35 | PN ---
DATE: 04/30/2017 SUBJECTIVE DATA: States that she feels better. States that she had several bowel movements today. Abdominal pain is much better. No vomiting. Minimal nausea. OBJECTIVE DATA: EXTREMITIES: Awake, alert, oriented. VITAL SIGNS: Temperature today 99.1, heart rate 88, respirations 20, blood pressure 124/78, saturation 98 percent, room air. LABORATORY AND DIAGNOSTIC DATA: WBC 10,400, with 72 percent neutrophils; this is normal. Hemoglobin 9.1, hematocrit 27.4. Chemistry: Sodium 133, a little bit low. Potassium normal. BUN/creatinine normal. Imaging: A KUB was done today, which was read as follows: 1. The pigtail drainage catheter is again projecting in the right upper quadrant of the abdomen. 2. Nonspecific bowel gas pattern, with less stool seen through the colon. 3. Hepatomegaly, unchanged. On the bedside, HEART: Regular. LUNGS: Left side is clear. Right side decreased breathing sound. ABDOMEN: Soft. The pigtail drains: One of them is draining serous fluid. The other one is serosanguineous. They do not look purulent, neither of them. ASSESSMENT AND PLAN: A 66-year-old female with multiloculated, multilobulated central liver abscess and later on, possible sympathetic right pleural effusion, which has had 2 times thoracenteses but still has effusion, and also several time through the abdominal approach, the liver abscess has been drained and probably still has more loculation that should be drained. We will request Radiology to evaluate, and if needed, put more pigtail drains. Dictated By: Osmani Ceballos MD /rachel/skyler /Document#: [id number]
--- NOTE | 2017-04-30 18:40 | CONS ---
Date/Time of Note Date/Time of Note DATE: 04/30/17 TIME: 18:39 Assessment/Plan Assessment/Plan Chief Complaint/Hosp Course - Severe sepsis due to pyogenic liver abscess, loculated pleural effusion - multiloculated pyogenic liver abscess s/p CT guided drainage catheter placement 04/15/2017, 04/23/2017, s/p repeat drainage 04/27/2017; cultures from gamma hemolytic strep, cultures from 04/23/2017 alpha hemolytic strep - Loculated pleural effusion likely secondary to hepatic process/Hepatic hydrothorax, R>L, s/p R thoracentesis on 04/20/2017, s/p chest tube placement on 04/22/2017 - diarrhea - Normocytic anemia requiring blood transfusion - Coagulopathy - improved - Transaminitis - slowly improving - Hyponatremia on admission - CoNS in urine culture with trivial pyuria, likely contaminant; pt asymptomatic - Hx of rectal CA s/p Low anterior resection 08/29/2016 - Severe protein calorie malnutrition - allergy to vancomycin recommendations: - ordered: C diff test - continue amp/sulbactam (04/18/2017-); s/p linezolid and pip/tazo (04/13-2016). we recommend total 6 weeks - Pt requires a long-term antibiotic administration;we recommend repeat imaging prior to antibiotic cessation to ensure resolution - check weekly CBC and BMP while Pt's on long-term antibiotic management d/w Pt, her family member and RN Problems: Consultation Date/Type/Reason Admit Date/Time Apr 13, 2017 at 19:51 Initial Consult Date 04/21/17 Type of Consultation: ID Referring Provider: DARREL BURT MD 24 HR Interval Summary Constitutional: improved Detailed Summary Eyes: no complaints ENT: no complaints Respiratory: pain (R chest), No cough, No shortness of breath Cardiovascular: no complaints Gastrointestinal: diarrhea, No pain Musculoskeletal: no complaints Skin: no complaints Exam/Review of Systems Vital Signs Vitals Vital Signs Date Time Temp Pulse Resp B/P Pulse Ox O2 Delivery O2 Flow Rate FiO2 04/30/17 16:12 86 04/30/17 15:40 99.2 20 112/63 99 04/30/17 08:00 Nasal Cannula 2.0 Intake and Output 04/29/17 04/29/17 04/30/17 14:59 22:59 06:59 Intake Total 50 ml 600 ml 290 ml Balance 50 ml 600 ml 290 ml Exam Constitutional: frail Psych: no complaints Head: atraumatic, normocephalic Eyes: nl conjunctiva, nl lids ENMT: nl external ears & nose, nl nasal mucosa & septum Neck: supple Respiratory: diminished breath sounds, other (Chest tube+) Cardiovascular: nl pulses, regular rate and rhythm Gastrointestinal: non-tender, other (external drainage catheter), soft Musculoskeletal: nl extremities to inspection Extremities: No edema Results Result Diagram: 04/30/17 0646 04/30/17 0646 Results 24 hrs Laboratory Tests Test 04/29/17 20:07 04/30/17 06:46 04/30/17 08:41 04/30/17 12:32 Bedside Glucose 118 116 114 White Blood Count 10.4 Red Blood Count 2.99 L Hemoglobin 9.1 L Hematocrit 27.4 L Mean Corpuscular Volume 91.6 Mean Corpuscular Hemoglobin 30.4 Mean Corpuscular Hemoglobin Concent 33.2 Red Cell Distribution Width 13.6 Platelet Count 471 H Mean Platelet Volume 8.5 Neutrophils % 72.9 Lymphocytes % 14.1 L Monocytes % 11.4 H Eosinophils % 0.7 Basophils % 0.4 Nucleated Red Blood Cells % 0.0 Neutrophils # 7.6 H Lymphocytes # 1.5 Monocytes # 1.2 H Eosinophils # 0.1 Basophils # 0.0 Nucleated Red Blood Cells # 0.0 Sodium Level 133 L Potassium Level 4.1 Chloride Level 96 L Carbon Dioxide Level 28 Anion Gap 13 Blood Urea Nitrogen 10 Creatinine 0.37 L Glucose Level 96 Calcium Level 8.6 Test 04/30/17 17:33 Bedside Glucose 108 Medications Medications Current Medications Miscellaneous Information 1 ea NOTE XX ; Start 04/13/17 at 21:30 Glucose (Glutose) 15 gm Q15M PRN PO DECREASED GLUCOSE; Start 04/13/17 at 21:30 Glucose (Glutose) 22.5 gm Q15M PRN PO DECREASED GLUCOSE; Start 04/13/17 at 21: 30 Dextrose (D50w Syringe) 25 ml Q15M PRN IV DECREASED GLUCOSE; Start 04/13/17 at 21:30 Dextrose (D50w Syringe) 50 ml Q15M PRN IV DECREASED GLUCOSE; Start 04/13/17 at 21:30 Glucagon (Glucagen) 1 mg Q15M PRN IM DECREASED GLUCOSE; Start 04/13/17 at 21:30 Glucose (Glutose) 15 gm Q15M PRN BUCCAL DECREASED GLUCOSE; Start 04/13/17 at 21 :30 Ondansetron HCl (Zofran Inj) 4 mg Q6 PRN IV NAUSEA AND/OR VOMITING Last administered on 04/26/17 20:25; Admin Dose 4 MG; Start 04/13/17 at 21:30 Guaifenesin/ Dextromethorphan (Robitussin Dm Liquid Cup) 5 ml Q4H PRN PO COUGH Last administered on 04/19/17 05:09; Admin Dose 5 ML; Start 04/15/17 at 16:30 Pantoprazole (Protonix Tab) 40 mg DAILY@06 PO Last administered on 04/30/17 05 :17; Admin Dose 40 MG; Start 04/17/17 at 06:00 Acetaminophen (Tylenol Tab) 500 mg Q6H PRN PO PAIN AND OR ELEVATED TEMP Last administered on 04/28/17 18:33; Admin Dose 500 MG; Start 04/17/17 at 03:00 Magnesium Hydroxide 30 ml 30 ml DAILY PRN PO CONSTIPATION Last administered on 04/28/17 18:33; Admin Dose 30 ML; Start 04/17/17 at 11:30 Ampicillin Sodium/ Sulbactam Sodium (Unasyn 1.5gm/NS (Pmx)) 50 ml @ 100 mls/hr Q6 IVPB Last administered on 04/30/17 17:31; Admin Dose 100 MLS/HR; Start at 18:00 Fentanyl (Duragesic 12 Mcg/Hr Patch) 1 patch Q72H TRANSDERM Last administered on 04/28/17 07:12; Admin Dose 1 PATCH; Start 04/22/17 at 05:30 Morphine Sulfate (morphine) 1 mg Q4H PRN IV SEVERE PAIN LEVEL 7-10 Last administered on 04/26/17 20:25; Admin Dose 1 MG; Start 04/22/17 at 17:30 Metoclopramide HCl (Reglan) 10 mg Q6H PRN IV NAUSEA Last administered on 20:18; Admin Dose 10 MG; Start 04/22/17 at 21:00 Enoxaparin Sodium (Lovenox) 30 mg DAILY SC Last administered on 04/30/17 09:47 ; Admin Dose 30 MG; Start 04/23/17 at 20:30 Acetaminophen (Tylenol Supp) 650 mg Q6H PRN [place] FEVER GREATER THAN 100.6; Start 04/23/17 at 20:30 Acetaminophen (Tylenol Tab) 650 mg Q6H PRN PO PAIN AND OR ELEVATED TEMP Last administered on 04/30/17 09:48; Admin Dose 650 MG; Start 04/23/17 at 20:30 Lactobacillus Acidophilus/ Rhamnosus (Culturelle) 1 cap BID PO Last administered on 04/30/17 09:46; Admin Dose 1 CAP; Start 04/24/17 at 11:30 Diagnostic Test (Pha) (Accu-Chek) 1 ea 02 XX ; Start 04/26/17 at 02:00 Furosemide (Lasix) 20 mg DAILY IV Last administered on 04/30/17 09:46; Admin Dose 20 MG; Start 04/30/17 at 09:00 Docusate Sodium (Colace) 100 mg BID PO ; Start 04/30/17 at 21:00 AARON ANSARI M.D. Apr 30, 2017 18:40
[2017-04-30 18:41] LABS: INR 1.08; PT RATIO 1.1
[2017-04-30 18:42] LABS: PARTIAL THROMBOPLASTIN TIME 34.9 Sec (25.0-35.0)
[2017-04-30] MEDS: DOCUSATE SODIUM 100 MG CAP PO SCH (20:39)
--- NOTE | 2017-04-30 21:13 | CONS ---
Date/Time of Note Date/Time of Note DATE: 04/30/17 TIME: 21:10 Assessment/Plan Assessment/Plan Chief Complaint/Hosp Course Problems: Additional Assessment/Plan 1. Acute hyponatremia 2/2 Hypovolemic hyponatremia 2. sepsis due to liver abscess 3. Hepatic abscess oN CT scan s/p CT guided drainage on 04/15/17 and 04/23/17 4. Acute transaminitis 5. h/o Colon CA s/p previous Surgery 6. Hypokalemia 7. Hyponatremia 8. Multiloculated right pleural effusion s/p Thoracentesis x 2, on IV lasix Plan : pt went into ileus, stomach distended on KUB Na 133 Cr normal, Continue lasix 20mg IV daily Monitor electroltytes and replace as needed. will talk pulmonary to see if pt needs pigtail catheter for right pleural effusion BP stable will follow up Consultation Date/Type/Reason Admit Date/Time Apr 13, 2017 at 19:51 Initial Consult Date 04/13/17 Type of Consultation: NEPHROLOGY Referring Provider: DARREL BURT MD Exam/Review of Systems Vital Signs Vitals Vital Signs Date Time Temp Pulse Resp B/P Pulse Ox O2 Delivery O2 Flow Rate FiO2 04/30/17 20:29 82 04/30/17 20:15 98.3 18 107/57 99 04/30/17 08:00 Nasal Cannula 2.0 Intake and Output 04/29/17 04/29/17 04/30/17 15:00 23:00 07:00 Intake Total 50 ml 600 ml 290 ml Balance 50 ml 600 ml 290 ml Results Result Diagram: 04/30/17 0646 04/30/17 0646 Results 24 hrs Laboratory Tests Test 04/30/17 06:46 04/30/17 08:41 04/30/17 12:32 04/30/17 17:33 White Blood Count 10.4 Red Blood Count 2.99 L Hemoglobin 9.1 L Hematocrit 27.4 L Mean Corpuscular Volume 91.6 Mean Corpuscular Hemoglobin 30.4 Mean Corpuscular Hemoglobin Concent 33.2 Red Cell Distribution Width 13.6 Platelet Count 471 H Mean Platelet Volume 8.5 Neutrophils % 72.9 Lymphocytes % 14.1 L Monocytes % 11.4 H Eosinophils % 0.7 Basophils % 0.4 Nucleated Red Blood Cells % 0.0 Neutrophils # 7.6 H Lymphocytes # 1.5 Monocytes # 1.2 H Eosinophils # 0.1 Basophils # 0.0 Nucleated Red Blood Cells # 0.0 Sodium Level 133 L Potassium Level 4.1 Chloride Level 96 L Carbon Dioxide Level 28 Anion Gap 13 Blood Urea Nitrogen 10 Creatinine 0.37 L Glucose Level 96 Calcium Level 8.6 Bedside Glucose 116 114 108 Test 04/30/17 17:56 04/30/17 20:10 Prothrombin Time 14.0 Prothrombin Time Ratio 1.1 INR International Normalized Ratio 1.08 Activated Partial Thromboplast Time 34.9 Bedside Glucose 210 Medications Medications Current Medications Miscellaneous Information 1 ea NOTE XX ; Start 04/13/17 at 21:30 Glucose (Glutose) 15 gm Q15M PRN PO DECREASED GLUCOSE; Start 04/13/17 at 21:30 Glucose (Glutose) 22.5 gm Q15M PRN PO DECREASED GLUCOSE; Start 04/13/17 at 21: 30 Dextrose (D50w Syringe) 25 ml Q15M PRN IV DECREASED GLUCOSE; Start 04/13/17 at 21:30 Dextrose (D50w Syringe) 50 ml Q15M PRN IV DECREASED GLUCOSE; Start 04/13/17 at 21:30 Glucagon (Glucagen) 1 mg Q15M PRN IM DECREASED GLUCOSE; Start 04/13/17 at 21:30 Glucose (Glutose) 15 gm Q15M PRN BUCCAL DECREASED GLUCOSE; Start 04/13/17 at 21 :30 Ondansetron HCl (Zofran Inj) 4 mg Q6 PRN IV NAUSEA AND/OR VOMITING Last administered on 04/26/17 20:25; Admin Dose 4 MG; Start 04/13/17 at 21:30 Guaifenesin/ Dextromethorphan (Robitussin Dm Liquid Cup) 5 ml Q4H PRN PO COUGH Last administered on 04/19/17 05:09; Admin Dose 5 ML; Start 04/15/17 at 16:30 Pantoprazole (Protonix Tab) 40 mg DAILY@06 PO Last administered on 04/30/17 05 :17; Admin Dose 40 MG; Start 04/17/17 at 06:00 Acetaminophen (Tylenol Tab) 500 mg Q6H PRN PO PAIN AND OR ELEVATED TEMP Last administered on 04/28/17 18:33; Admin Dose 500 MG; Start 04/17/17 at 03:00 Magnesium Hydroxide 30 ml 30 ml DAILY PRN PO CONSTIPATION Last administered on 04/28/17 18:33; Admin Dose 30 ML; Start 04/17/17 at 11:30 Ampicillin Sodium/ Sulbactam Sodium (Unasyn 1.5gm/NS (Pmx)) 50 ml @ 100 mls/hr Q6 IVPB Last administered on 04/30/17 17:31; Admin Dose 100 MLS/HR; Start at 18:00 Fentanyl (Duragesic 12 Mcg/Hr Patch) 1 patch Q72H TRANSDERM Last administered on 04/28/17 07:12; Admin Dose 1 PATCH; Start 04/22/17 at 05:30 Morphine Sulfate (morphine) 1 mg Q4H PRN IV SEVERE PAIN LEVEL 7-10 Last administered on 04/26/17 20:25; Admin Dose 1 MG; Start 04/22/17 at 17:30 Metoclopramide HCl (Reglan) 10 mg Q6H PRN IV NAUSEA Last administered on 20:18; Admin Dose 10 MG; Start 04/22/17 at 21:00 Enoxaparin Sodium (Lovenox) 30 mg DAILY SC Last administered on 04/30/17 09:47 ; Admin Dose 30 MG; Start 04/23/17 at 20:30 Acetaminophen (Tylenol Supp) 650 mg Q6H PRN [place] FEVER GREATER THAN 100.6; Start 04/23/17 at 20:30 Acetaminophen (Tylenol Tab) 650 mg Q6H PRN PO PAIN AND OR ELEVATED TEMP Last administered on 04/30/17 09:48; Admin Dose 650 MG; Start 04/23/17 at 20:30 Lactobacillus Acidophilus/ Rhamnosus (Culturelle) 1 cap BID PO Last administered on 04/30/17 20:39; Admin Dose 1 CAP; Start 04/24/17 at 11:30 Diagnostic Test (Pha) (Accu-Chek) 1 ea 02 XX ; Start 04/26/17 at 02:00 Furosemide (Lasix) 20 mg DAILY IV Last administered on 04/30/17 09:46; Admin Dose 20 MG; Start 04/30/17 at 09:00 Docusate Sodium (Colace) 100 mg BID PO Last administered on 04/30/17 20:39; Admin Dose 100 MG; Start 04/30/17 at 21:00 NGOC GARZA MD Apr 30, 2017 21:13
--- NOTE | 2017-04-30 21:49 | PN ---
Date/Time of Note Date/Time of Note DATE: 04/30/17 TIME: 21:48 Assessment/Plan Lines/Catheters IV C[facility]ter Type ([facility] Saline Lock Urinary Cath still in place: No Assessment/Plan Assessment/Plan - Bilateral pleural effusions right more than left, status post right thoracentesis 04/20. S/p right chest tube insertion on 04/[address] Jackson, vascular surgery. S/p right thoracentesis 04/26. - Acute respiratory failure secondary to #1, Dr. Damico is following in pulmonology consultation continue oxygen oxygen supplementation - Severe sepsis 2/2 to liver abscess, resolving. Continue antibiotics per ID. Dr. Diana is following infection disease consultation - Liver abscess unchanged per recent CT, s/p CT guided drainage 04/15/2017, s/p CT guided percutaneous drainage of liver abscess 04/23, status post CT-guided liver abscess drainage 04/27 - Normocytic anemia requiring blood transfusion - Hx of rectal CA s/p Low anterior resection 08/29/2016 Further recommendations based on clinical course. Plan of care discussed with Dr. Dior Subjective 24 Hr Interval Summary Free Text/Dictation [place] seen [id number] Exam/Review of Systems Vital Signs Vitals Vital Signs Date Time Temp Pulse Resp B/P Pulse Ox O2 Delivery O2 Flow Rate FiO2 04/30/17 20:29 82 04/30/17 20:15 98.3 18 107/57 99 04/30/17 08:00 Nasal Cannula 2.0 Intake and Output 04/29/17 04/29/17 04/30/17 15:00 23:00 07:00 Intake Total 50 ml 600 ml 290 ml Balance 50 ml 600 ml 290 ml Results Result Diagram: 04/30/17 0646 04/30/17 0646 Results 24 hrs Laboratory Tests Test 04/30/17 06:46 04/30/17 08:41 04/30/17 12:32 04/30/17 17:33 White Blood Count 10.4 Red Blood Count 2.99 L Hemoglobin 9.1 L Hematocrit 27.4 L Mean Corpuscular Volume 91.6 Mean Corpuscular Hemoglobin 30.4 Mean Corpuscular Hemoglobin Concent 33.2 Red Cell Distribution Width 13.6 Platelet Count 471 H Mean Platelet Volume 8.5 Neutrophils % 72.9 Lymphocytes % 14.1 L Monocytes % 11.4 H Eosinophils % 0.7 Basophils % 0.4 Nucleated Red Blood Cells % 0.0 Neutrophils # 7.6 H Lymphocytes # 1.5 Monocytes # 1.2 H Eosinophils # 0.1 Basophils # 0.0 Nucleated Red Blood Cells # 0.0 Sodium Level 133 L Potassium Level 4.1 Chloride Level 96 L Carbon Dioxide Level 28 Anion Gap 13 Blood Urea Nitrogen 10 Creatinine 0.37 L Glucose Level 96 Calcium Level 8.6 Bedside Glucose 116 114 108 Test 04/30/17 17:56 04/30/17 20:10 Prothrombin Time 14.0 Prothrombin Time Ratio 1.1 INR International Normalized Ratio 1.08 Activated Partial Thromboplast Time 34.9 Bedside Glucose 210 Medications Medications Current Medications Miscellaneous Information 1 ea NOTE XX ; Start 04/13/17 at 21:30 Glucose (Glutose) 15 gm Q15M PRN PO DECREASED GLUCOSE; Start 04/13/17 at 21:30 Glucose (Glutose) 22.5 gm Q15M PRN PO DECREASED GLUCOSE; Start 04/13/17 at 21: 30 Dextrose (D50w Syringe) 25 ml Q15M PRN IV DECREASED GLUCOSE; Start 04/13/17 at 21:30 Dextrose (D50w Syringe) 50 ml Q15M PRN IV DECREASED GLUCOSE; Start 04/13/17 at 21:30 Glucagon (Glucagen) 1 mg Q15M PRN IM DECREASED GLUCOSE; Start 04/13/17 at 21:30 Glucose (Glutose) 15 gm Q15M PRN BUCCAL DECREASED GLUCOSE; Start 04/13/17 at 21 :30 Ondansetron HCl (Zofran Inj) 4 mg Q6 PRN IV NAUSEA AND/OR VOMITING Last administered on 04/26/17 20:25; Admin Dose 4 MG; Start 04/13/17 at 21:30 Guaifenesin/ Dextromethorphan (Robitussin Dm Liquid Cup) 5 ml Q4H PRN PO COUGH Last administered on 04/19/17 05:09; Admin Dose 5 ML; Start 04/15/17 at 16:30 Pantoprazole (Protonix Tab) 40 mg DAILY@06 PO Last administered on 04/30/17 05 :17; Admin Dose 40 MG; Start 04/17/17 at 06:00 Acetaminophen (Tylenol Tab) 500 mg Q6H PRN PO PAIN AND OR ELEVATED TEMP Last administered on 04/28/17 18:33; Admin Dose 500 MG; Start 04/17/17 at 03:00 Magnesium Hydroxide 30 ml 30 ml DAILY PRN PO CONSTIPATION Last administered on 04/28/17 18:33; Admin Dose 30 ML; Start 04/17/17 at 11:30 Ampicillin Sodium/ Sulbactam Sodium (Unasyn 1.5gm/NS (Pmx)) 50 ml @ 100 mls/hr Q6 IVPB Last administered on 04/30/17 17:31; Admin Dose 100 MLS/HR; Start at 18:00 Fentanyl (Duragesic 12 Mcg/Hr Patch) 1 patch Q72H TRANSDERM Last administered on 04/28/17 07:12; Admin Dose 1 PATCH; Start 04/22/17 at 05:30 Morphine Sulfate (morphine) 1 mg Q4H PRN IV SEVERE PAIN LEVEL 7-10 Last administered on 04/26/17 20:25; Admin Dose 1 MG; Start 04/22/17 at 17:30 Metoclopramide HCl (Reglan) 10 mg Q6H PRN IV NAUSEA Last administered on 20:18; Admin Dose 10 MG; Start 04/22/17 at 21:00 Enoxaparin Sodium (Lovenox) 30 mg DAILY SC Last administered on 04/30/17 09:47 ; Admin Dose 30 MG; Start 04/23/17 at 20:30 Acetaminophen (Tylenol Supp) 650 mg Q6H PRN [place] FEVER GREATER THAN 100.6; Start 04/23/17 at 20:30 Acetaminophen (Tylenol Tab) 650 mg Q6H PRN PO PAIN AND OR ELEVATED TEMP Last administered on 04/30/17 09:48; Admin Dose 650 MG; Start 04/23/17 at 20:30 Lactobacillus Acidophilus/ Rhamnosus (Culturelle) 1 cap BID PO Last administered on 04/30/17 20:39; Admin Dose 1 CAP; Start 04/24/17 at 11:30 Diagnostic Test (Pha) (Accu-Chek) 1 ea 02 XX ; Start 04/26/17 at 02:00 Furosemide (Lasix) 20 mg DAILY IV Last administered on 04/30/17 09:46; Admin Dose 20 MG; Start 04/30/17 at 09:00 Docusate Sodium (Colace) 100 mg BID PO Last administered on 04/30/17t 20:39; Admin Dose 100 MG; Start 04/30/17 at 21:00 MESHA VELASQUEZ Apr 30, 2017 21:49
[2017-05-01] VITALS (12 sets, daily range): BP systolic 112–124; BP diastolic 63–74; PULSE 76–95; RESP 16–20
[2017-05-01] MEDS: ACCU-CHEK XX SCH (02:00)
[2017-05-01] MEDS: AMPICILLIN/SULB 1.5GM/NS (PMX) 50 ML IVPB SCH ×3 (06:06→17:26)
[2017-05-01] MEDS: PANTOPRAZOLE (EC) 40 MG TAB PO SCH (06:07)
[2017-05-01] MEDS: ACETAMINOPHEN 325 MG TAB PO PRN (06:44)
[2017-05-01] MEDS: Insulin NOVOLOG SS MILD Algorithm (SS with meals and bedtime) SC SCH ×4 (07:30→20:26)
[2017-05-01] MEDS: ENOXAPARIN 30 MG/0.3 ML SYG SC SCH (08:29)
[2017-05-01] MEDS: LACTOBACILLUS RHAMNOSUS CAP PO SCH ×2 (08:29→20:26)
[2017-05-01] MEDS: DOCUSATE SODIUM 100 MG CAP PO SCH ×2 (08:29→20:26)
[2017-05-01] MEDS: FUROSEMIDE 20 MG INJ IV SCH (08:57)
[2017-05-01] MEDS: FENTAnyl PATCH 12 MCG/HR TRANSDERM SCH (09:16)
--- NOTE | 2017-05-01 09:17 | CONS ---
Date/Time of Note Date/Time of Note DATE: 05/01/17 TIME: 09:15 Assessment/Plan Assessment/Plan Additional Assessment/Plan Assessment and recommendations; 1. Patient admitted with hepatic abscess currently on appropriate antibiotic regimen. Next 2. Interval development of bilateral lower lobe pneumonia with significant loculations on the right side, status post chest tube placement without any improvement. Continue current treatment. Patient awaiting VATS procedure once hepatic abscess improves. Consultation Date/Type/Reason Admit Date/Time Apr 13, 2017 at 19:51 Initial Consult Date 04/15/17 Type of Consultation: Pulmonary Referring Provider: DARREL BURT MD 24 HR Interval Summary Free Text/Dictation Patient's condition is stable. Denies any chest pain, abdominal pain, nausea vomiting. Any fever or chills. Any cough or sputum production. General exam; elderly woman, awake alert currently in no distress. Exam/Review of Systems Vital Signs Vitals Vital Signs Date Time Temp Pulse Resp B/P Pulse Ox O2 Delivery O2 Flow Rate FiO2 05/01/17 08:55 Nasal Cannula 2.0 05/01/17 08:15 76 05/01/17 07:47 98.1 17 112/63 100 Intake and Output 04/30/17 04/30/17 05/01/17 15:00 23:00 07:00 Intake Total 50 ml 1060 ml 450 ml Balance 50 ml 1060 ml 450 ml Exam HEENT exam; supple neck, no JVD. No lymphadenopathy. Midline trachea. No thyromegaly. Patient does have carious teeth. Pupils are midsize and reactive to light. Chest exam; diminished breath sounds lower lobes bilaterally. Upper lobes are clear to auscultation. S1-S2 audible, no murmurs. Regular rhythm. Right- sided chest tube in place. Abdomen exam; soft, nontender. No organomegaly. Bowel sounds audible. Right upper quadrant drain in place. Extremity exam; no edema. 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 Results Result Diagram: 04/30/17 0646 04/30/17 0646 Results 24 hrs Laboratory Tests Test 04/30/17 12:32 04/30/17 17:33 04/30/17 17:56 04/30/17 20:10 Bedside Glucose 114 108 210 Prothrombin Time 14.0 Prothrombin Time Ratio 1.1 INR International Normalized Ratio 1.08 Activated Partial Thromboplast Time 34.9 Medications Medications Current Medications Miscellaneous Information 1 ea NOTE XX ; Start 04/13/17 at 21:30 Glucose (Glutose) 15 gm Q15M PRN PO DECREASED GLUCOSE; Start 04/13/17 at 21:30 Glucose (Glutose) 22.5 gm Q15M PRN PO DECREASED GLUCOSE; Start 04/13/17 at 21: 30 Dextrose (D50w Syringe) 25 ml Q15M PRN IV DECREASED GLUCOSE; Start 04/13/17 at 21:30 Dextrose (D50w Syringe) 50 ml Q15M PRN IV DECREASED GLUCOSE; Start 04/13/17 at 21:30 Glucagon (Glucagen) 1 mg Q15M PRN IM DECREASED GLUCOSE; Start 04/13/17 at 21:30 Glucose (Glutose) 15 gm Q15M PRN BUCCAL DECREASED GLUCOSE; Start 04/13/17 at 21 :30 Ondansetron HCl (Zofran Inj) 4 mg Q6 PRN IV NAUSEA AND/OR VOMITING Last administered on 04/26/17 20:25; Admin Dose 4 MG; Start 04/13/17 at 21:30 Guaifenesin/ Dextromethorphan (Robitussin Dm Liquid Cup) 5 ml Q4H PRN PO COUGH Last administered on 04/19/17 05:09; Admin Dose 5 ML; Start 04/15/17 at 16:30 Pantoprazole (Protonix Tab) 40 mg DAILY@06 PO Last administered on 05/01/17 06 :07; Admin Dose 40 MG; Start 04/17/17 at 06:00 Acetaminophen (Tylenol Tab) 500 mg Q6H PRN PO PAIN AND OR ELEVATED TEMP Last administered on 04/28/17 18:33; Admin Dose 500 MG; Start 04/17/17 at 03:00 Magnesium Hydroxide 30 ml 30 ml DAILY PRN PO CONSTIPATION Last administered on 04/28/17 18:33; Admin Dose 30 ML; Start 04/17/17 at 11:30 Ampicillin Sodium/ Sulbactam Sodium (Unasyn 1.5gm/NS (Pmx)) 50 ml @ 100 mls/hr Q6 IVPB Last administered on 05/01/17 06:06; Admin Dose 100 MLS/HR; Start at 18:00 Fentanyl (Duragesic 12 Mcg/Hr Patch) 1 patch Q72H TRANSDERM Last administered on 04/28/17 07:12; Admin Dose 1 PATCH; Start 04/22/17 at 05:30 Morphine Sulfate (morphine) 1 mg Q4H PRN IV SEVERE PAIN LEVEL 7-10 Last administered on 04/26/17 20:25; Admin Dose 1 MG; Start 04/22/17 at 17:30 Metoclopramide HCl (Reglan) 10 mg Q6H PRN IV NAUSEA Last administered on 20:18; Admin Dose 10 MG; Start 04/22/17 at 21:00 Enoxaparin Sodium (Lovenox) 30 mg DAILY SC Last administered on 04/30/17 09:47 ; Admin Dose 30 MG; Start 04/23/17 at 20:30 Acetaminophen (Tylenol Supp) 650 mg Q6H PRN [place] FEVER GREATER THAN 100.6; Start 04/23/17 at 20:30 Acetaminophen (Tylenol Tab) 650 mg Q6H PRN PO PAIN AND OR ELEVATED TEMP Last administered on 05/01/17 06:44; Admin Dose 650 MG; Start 04/23/17 at 20:30 Lactobacillus Acidophilus/ Rhamnosus (Culturelle) 1 cap BID PO Last administered on 04/30/17 20:39; Admin Dose 1 CAP; Start 04/24/17 at 11:30 Diagnostic Test (Pha) (Accu-Chek) 1 ea 02 XX ; Start 04/26/17 at 02:00 Furosemide (Lasix) 20 mg DAILY IV Last administered on 05/01/17 08:57; Admin Dose 20 MG; Start 04/30/17 at 09:00 Docusate Sodium (Colace) 100 mg BID PO Last administered on 04/30/17 20:39; Admin Dose 100 MG; Start 04/30/17 at 21:00 LINDA GARCIA May 01, 2017 09:17
--- NOTE | 2017-05-01 10:40 | CONS ---
Date/Time of Note Date/Time of Note DATE: 05/01/17 TIME: 10:39 Assessment/Plan Assessment/Plan Chief Complaint/Hosp Course - severe sepsis due to pyogenic liver abscess, loculated pleural effusion - multiloculated pyogenic liver abscess s/p CT guided drainage catheter placement 04/15/2017, 04/23/2017, s/p repeat drainage 04/27/2017; cultures from gamma hemolytic strep, cultures from 04/23/2017 alpha hemolytic strep - Loculated pleural effusion likely secondary to hepatic process/Hepatic hydrothorax, R>L, s/p R thoracentesis on 04/20/2017, s/p chest tube placement on 04/22/2017 - diarrhea - Normocytic anemia requiring blood transfusion - Coagulopathy - improved - Transaminitis - slowly improving - Hyponatremia on admission - CoNS in urine culture with trivial pyuria, likely contaminant; pt asymptomatic - Hx of rectal CA s/p Low anterior resection 08/29/2016 - Severe protein calorie malnutrition - allergy to vancomycin recommendations: - Note: I ordered C diff test on 04/30/2017, Pt had BM but no specimen was collected. I re-ordered C diff test for today and confirmed with Pt's RN to collect the specimen - continue amp/sulbactam (04/18/2017-); s/p linezolid and pip/tazo (04/13-2016). we recommend long-term (6 weeks at least) antibiotic administration; we recommend repeat imaging prior to antibiotic cessation to ensure resolution - check weekly CBC and BMP while Pt's on long-term antibiotic management d/w Pt and her RN Problems: Consultation Date/Type/Reason Admit Date/Time Apr 13, 2017 at 19:51 Initial Consult Date 04/21/17 Type of Consultation: ID Referring Provider: DARREL BURT MD 24 HR Interval Summary Constitutional: no complaints Detailed Summary Eyes: no complaints ENT: no complaints Respiratory: no complaints Cardiovascular: no complaints Gastrointestinal: passing stool (loose once) Musculoskeletal: no complaints Skin: no complaints Exam/Review of Systems Vital Signs Vitals Vital Signs Date Time Temp Pulse Resp B/P Pulse Ox O2 Delivery O2 Flow Rate FiO2 05/01/17 08:55 Nasal Cannula 2.0 05/01/17 08:15 76 05/01/17 07:47 98.1 17 112/63 100 Intake and Output 04/30/17 04/30/17 05/01/17 14:59 22:59 06:59 Intake Total 50 ml 1060 ml 450 ml Balance 50 ml 1060 ml 450 ml Exam Constitutional: alert, frail Psych: no complaints Head: normocephalic Eyes: nl conjunctiva, nl sclera ENMT: nl external ears & nose Neck: supple Respiratory: diminished breath sounds, other (chest tube in place) Cardiovascular: nl pulses, regular rate and rhythm Gastrointestinal: non-tender, other (external drainage catheters), soft Musculoskeletal: nl extremities to inspection Extremities: edema 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: 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 Skin: nl turgor Results Result Diagram: 04/30/17 0646 04/30/17 0646 Results 24 hrs Laboratory Tests Test 04/30/17 12:32 04/30/17 17:33 04/30/17 17:56 04/30/17 20:10 Bedside Glucose 114 108 210 Prothrombin Time 14.0 Prothrombin Time Ratio 1.1 INR International Normalized Ratio 1.08 Activated Partial Thromboplast Time 34.9 Test 05/01/17 08:58 Bedside Glucose 97 Medications Medications Current Medications Miscellaneous Information 1 ea NOTE XX ; Start 04/13/17 at 21:30 Glucose (Glutose) 15 gm Q15M PRN PO DECREASED GLUCOSE; Start 04/13/17 at 21:30 Glucose (Glutose) 22.5 gm Q15M PRN PO DECREASED GLUCOSE; Start 04/13/17 at 21: 30 Dextrose (D50w Syringe) 25 ml Q15M PRN IV DECREASED GLUCOSE; Start 04/13/17 at 21:30 Dextrose (D50w Syringe) 50 ml Q15M PRN IV DECREASED GLUCOSE; Start 04/13/17 at 21:30 Glucagon (Glucagen) 1 mg Q15M PRN IM DECREASED GLUCOSE; Start 04/13/17 at 21:30 Glucose (Glutose) 15 gm Q15M PRN BUCCAL DECREASED GLUCOSE; Start 04/13/17 at 21 :30 Ondansetron HCl (Zofran Inj) 4 mg Q6 PRN IV NAUSEA AND/OR VOMITING Last administered on 04/26/17t 20:25; Admin Dose 4 MG; Start 04/13/17 at 21:30 Guaifenesin/ Dextromethorphan (Robitussin Dm Liquid Cup) 5 ml Q4H PRN PO COUGH Last administered on 04/19/17 05:09; Admin Dose 5 ML; Start 04/15/17 at 16:30 Pantoprazole (Protonix Tab) 40 mg DAILY@06 PO Last administered on 05/01/17 06 :07; Admin Dose 40 MG; Start 04/17/17 at 06:00 Acetaminophen (Tylenol Tab) 500 mg Q6H PRN PO PAIN AND OR ELEVATED TEMP Last administered on 04/28/17 18:33; Admin Dose 500 MG; Start 04/17/17 at 03:00 Magnesium Hydroxide 30 ml 30 ml DAILY PRN PO CONSTIPATION Last administered on 04/28/17 18:33; Admin Dose 30 ML; Start 04/17/17 at 11:30 Ampicillin Sodium/ Sulbactam Sodium (Unasyn 1.5gm/NS (Pmx)) 50 ml @ 100 mls/hr Q6 IVPB Last administered on 05/01/17 06:06; Admin Dose 100 MLS/HR; Start at 18:00 Fentanyl (Duragesic 12 Mcg/Hr Patch) 1 patch Q72H TRANSDERM Last administered on 05/01/17 09:16; Admin Dose 1 PATCH; Start 04/22/17 at 05:30 Morphine Sulfate (morphine) 1 mg Q4H PRN IV SEVERE PAIN LEVEL 7-10 Last administered on 04/26/17 20:25; Admin Dose 1 MG; Start 04/22/17 at 17:30 Metoclopramide HCl (Reglan) 10 mg Q6H PRN IV NAUSEA Last administered on 20:18; Admin Dose 10 MG; Start 04/22/17 at 21:00 Enoxaparin Sodium (Lovenox) 30 mg DAILY SC Last administered on 04/30/17 09:47 ; Admin Dose 30 MG; Start 04/23/17 at 20:30 Acetaminophen (Tylenol Supp) 650 mg Q6H PRN [place] FEVER GREATER THAN 100.6; Start 04/23/17 at 20:30 Acetaminophen (Tylenol Tab) 650 mg Q6H PRN PO PAIN AND OR ELEVATED TEMP Last administered on 05/01/17 06:44; Admin Dose 650 MG; Start 04/23/17 at 20:30 Lactobacillus Acidophilus/ Rhamnosus (Culturelle) 1 cap BID PO Last administered on 04/30/17 20:39; Admin Dose 1 CAP; Start 04/24/17 at 11:30 Diagnostic Test (Pha) (Accu-Chek) 1 ea 02 XX ; Start 04/26/17 at 02:00 Furosemide (Lasix) 20 mg DAILY IV Last administered on 05/01/17 08:57; Admin Dose 20 MG; Start 04/30/17 at 09:00 Docusate Sodium (Colace) 100 mg BID PO Last administered on 04/30/17 20:39; Admin Dose 100 MG; Start 04/30/17 at 21:00 AARON ANSARI M.D. May 01, 2017 10:40
--- NOTE | 2017-05-01 10:59 | CONS ---
Date/Time of Note Date/Time of Note DATE: 05/01/17 TIME: 10:56 Assessment/Plan Assessment/Plan Chief Complaint/Hosp Course - severe sepsis due to pyogenic liver abscess, loculated pleural effusion - multiloculated pyogenic liver abscess s/p CT guided drainage catheter placement 04/15/2017, 04/23/2017, s/p repeat drainage 04/27/2017; cultures from gamma hemolytic strep, cultures from 04/23/2017 alpha hemolytic strep - Loculated pleural effusion likely secondary to hepatic process/Hepatic hydrothorax, R>L, s/p R thoracentesis on 04/20/2017, s/p chest tube placement on 04/22/2017 - diarrhea - Normocytic anemia requiring blood transfusion - Coagulopathy - improved - Transaminitis - slowly improving - Hyponatremia on admission - CoNS in urine culture with trivial pyuria, likely contaminant; pt asymptomatic - Hx of rectal CA s/p Low anterior resection 08/29/2016 - Severe protein calorie malnutrition - allergy to vancomycin recommendations: - Note: I ordered C diff test on 04/30/2017, Pt had BM but no specimen was collected. I re-ordered C diff test for today and confirmed with Pt's RN to collect the specimen - continue amp/sulbactam (04/18/2017-); s/p linezolid and pip/tazo (04/13-2016). we recommend long-term (6 weeks at least) antibiotic administration; we recommend repeat imaging prior to antibiotic cessation to ensure resolution - check weekly CBC and BMP while Pt's on long-term antibiotic management d/w Pt and her RN Problems: Consultation Date/Type/Reason Admit Date/Time Apr 13, 2017 at 19:51 Initial Consult Date 04/21/17 Type of Consultation: ID Referring Provider: DARREL BURT MD 24 HR Interval Summary Constitutional: no complaints Detailed Summary Eyes: no complaints ENT: no complaints Respiratory: no complaints Cardiovascular: no complaints Gastrointestinal: diarrhea, passing stool, No nausea, No pain Musculoskeletal: no complaints Skin: no complaints Exam/Review of Systems Vital Signs Vitals Vital Signs Date Time Temp Pulse Resp B/P Pulse Ox O2 Delivery O2 Flow Rate FiO2 05/01/17 08:55 Nasal Cannula 2.0 05/01/17 08:15 76 05/01/17 07:47 98.1 17 112/63 100 Intake and Output 04/30/17 04/30/17 05/01/17 15:00 23:00 07:00 Intake Total 50 ml 1060 ml 450 ml Balance 50 ml 1060 ml 450 ml Exam Constitutional: alert, frail Psych: no complaints Head: atraumatic, normocephalic Eyes: nl conjunctiva, nl lids, nl sclera ENMT: nl external ears & nose Respiratory: diminished breath sounds, other (chest tube) Cardiovascular: nl pulses, regular rate and rhythm Gastrointestinal: non-tender, other (drainage catheters), soft Musculoskeletal: nl extremities to inspection Extremities: edema 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: CERTIFIED NURSING ATTENDANT II-XII intact Results Result Diagram: 04/30/17 0646 04/30/17 0646 Results 24 hrs Laboratory Tests Test 04/30/17 12:32 04/30/17 17:33 04/30/17 17:56 04/30/17 20:10 Bedside Glucose 114 108 210 Prothrombin Time 14.0 Prothrombin Time Ratio 1.1 INR International Normalized Ratio 1.08 Activated Partial Thromboplast Time 34.9 Test 05/01/17 08:58 Bedside Glucose 97 Medications Medications Current Medications Miscellaneous Information 1 ea NOTE XX ; Start 04/13/17 at 21:30 Glucose (Glutose) 15 gm Q15M PRN PO DECREASED GLUCOSE; Start 04/13/17 at 21:30 Glucose (Glutose) 22.5 gm Q15M PRN PO DECREASED GLUCOSE; Start 04/13/17 at 21: 30 Dextrose (D50w Syringe) 25 ml Q15M PRN IV DECREASED GLUCOSE; Start 04/13/17 at 21:30 Dextrose (D50w Syringe) 50 ml Q15M PRN IV DECREASED GLUCOSE; Start 04/13/17 at 21:30 Glucagon (Glucagen) 1 mg Q15M PRN IM DECREASED GLUCOSE; Start 04/13/17 at 21:30 Glucose (Glutose) 15 gm Q15M PRN BUCCAL DECREASED GLUCOSE; Start 04/13/17 at 21 :30 Ondansetron HCl (Zofran Inj) 4 mg Q6 PRN IV NAUSEA AND/OR VOMITING Last administered on 04/26/17t 20:25; Admin Dose 4 MG; Start 04/13/17 at 21:30 Guaifenesin/ Dextromethorphan (Robitussin Dm Liquid Cup) 5 ml Q4H PRN PO COUGH Last administered on 04/19/17 05:09; Admin Dose 5 ML; Start 04/15/17 at 16:30 Pantoprazole (Protonix Tab) 40 mg DAILY@06 PO Last administered on 05/01/17 06 :07; Admin Dose 40 MG; Start 04/17/17 at 06:00 Acetaminophen (Tylenol Tab) 500 mg Q6H PRN PO PAIN AND OR ELEVATED TEMP Last administered on 04/28/17 18:33; Admin Dose 500 MG; Start 04/17/17 at 03:00 Magnesium Hydroxide 30 ml 30 ml DAILY PRN PO CONSTIPATION Last administered on 04/28/17 18:33; Admin Dose 30 ML; Start 04/17/17 at 11:30 Ampicillin Sodium/ Sulbactam Sodium (Unasyn 1.5gm/NS (Pmx)) 50 ml @ 100 mls/hr Q6 IVPB Last administered on 05/01/17 06:06; Admin Dose 100 MLS/HR; Start at 18:00 Fentanyl (Duragesic 12 Mcg/Hr Patch) 1 patch Q72H TRANSDERM Last administered on 05/01/17 09:16; Admin Dose 1 PATCH; Start 04/22/17 at 05:30 Morphine Sulfate (morphine) 1 mg Q4H PRN IV SEVERE PAIN LEVEL 7-10 Last administered on 04/26/17 20:25; Admin Dose 1 MG; Start 04/22/17 at 17:30 Metoclopramide HCl (Reglan) 10 mg Q6H PRN IV NAUSEA Last administered on 20:18; Admin Dose 10 MG; Start 04/22/17 at 21:00 Enoxaparin Sodium (Lovenox) 30 mg DAILY SC Last administered on 04/30/17 09:47 ; Admin Dose 30 MG; Start 04/23/17 at 20:30 Acetaminophen (Tylenol Supp) 650 mg Q6H PRN [place] FEVER GREATER THAN 100.6; Start 04/23/17 at 20:30 Acetaminophen (Tylenol Tab) 650 mg Q6H PRN PO PAIN AND OR ELEVATED TEMP Last administered on 05/01/17 06:44; Admin Dose 650 MG; Start 04/23/17 at 20:30 Lactobacillus Acidophilus/ Rhamnosus (Culturelle) 1 cap BID PO Last administered on 04/30/17 20:39; Admin Dose 1 CAP; Start 04/24/17 at 11:30 Diagnostic Test (Pha) (Accu-Chek) 1 ea 02 XX ; Start 04/26/17 at 02:00 Furosemide (Lasix) 20 mg DAILY IV Last administered on 05/01/17 08:57; Admin Dose 20 MG; Start 04/30/17 at 09:00 Docusate Sodium (Colace) 100 mg BID PO Last administered on 04/30/17 20:39; Admin Dose 100 MG; Start 04/30/17 at 21:00 AARON ANSARI M.D. May 01, 2017 10:59
--- NOTE | 2017-05-01 12:29 | RADRPT ---
PROCEDURE: Chest radiograph CLINICAL INDICATION: Pneumonia. COMPARISON: Radiograph 04/13/2017. TECHNIQUE: Single frontal chest radiograph. FINDINGS: Right mid and lower lung opacity which may represent effusion, atelectasis, and/or pneumonia. Right chest tube terminates in the medial lung base. Linear opacity at the left lung base, indicating atelectasis. The cardiomediastinal silhouette is normal. No suspicious bone lesion. There are 2 drains in the right upper quadrant. IMPRESSION: 1. Right basilar opacity which may represent a combination of effusion, atelectasis, or pneumonia. 2. Interval placement of a chest tube at the right lung base as well as two right upper quadrant dr garrett. RPTAT: [facility] Physician Jennifer Date Time Electronically viewed and signed by Physician Jennifer on 05/01/2017 12:29 LG/
--- NOTE | 2017-05-01 17:52 | CONS ---
Date/Time of Note Date/Time of Note DATE: 05/01/17 TIME: 17:48 Assessment/Plan Assessment/Plan Chief Complaint/Hosp Course Problems: Additional Assessment/Plan 1. Acute hyponatremia 2/2 Hypovolemic hyponatremia 2. sepsis due to liver abscess 3. Hepatic abscess oN CT scan s/p CT guided drainage on 04/15/17 and 04/23/17 4. Acute transaminitis 5. h/o Colon CA s/p previous Surgery 6. Hypokalemia 7. Hyponatremia 8. Multiloculated right pleural effusion s/p Thoracentesis x 2, on IV lasix Plan : Na 133 Cr normal, Continue lasix 20mg IV daily Cl. difficle ID recommended 6 weeks of Abx Monitor electroltytes and replace as needed. Chest tube in place in RLL - will talk pulmonary to see if pt needs pigtail catheter for right pleural effusion BP stable will follow up Consultation Date/Type/Reason Admit Date/Time Apr 13, 2017 at 19:51 Initial Consult Date 04/13/17 Type of Consultation: NEPHROLOGY Referring Provider: DARREL BURT MD 24 HR Interval Summary Free Text/Dictation no acute events, Na 133, Cr stable, ID recommended 6 weeks of IV abx Exam/Review of Systems Vital Signs Vitals Vital Signs Date Time Temp Pulse Resp B/P Pulse Ox O2 Delivery O2 Flow Rate FiO2 05/01/17 16:12 95 05/01/17 15:27 98.1 18 124/68 96 05/01/17 08:55 Nasal Cannula 2.0 Intake and Output 04/30/17 04/30/17 05/01/17 15:00 23:00 07:00 Intake Total 50 ml 1060 ml 450 ml Balance 50 ml 1060 ml 450 ml Exam Constitutional: frail, other (lethargic) Respiratory: diminished breath sounds, other (chest tube) Cardiovascular: nl pulses, regular rate and rhythm Gastrointestinal: non-tender, other (two external drainage catheters-bag in place), soft Musculoskeletal: nl extremities to inspection Extremities: No edema 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: lethargic Results Result Diagram: 04/30/17 0646 04/30/17 0646 Results 24 hrs Laboratory Tests Test 04/30/17 17:56 04/30/17 20:10 05/01/17 08:58 05/01/17 13:04 Prothrombin Time 14.0 Prothrombin Time Ratio 1.1 INR International Normalized Ratio 1.08 Activated Partial Thromboplast Time 34.9 Bedside Glucose 210 97 86 Medications Medications Current Medications Miscellaneous Information 1 ea NOTE XX ; Start 04/13/17 at 21:30 Glucose (Glutose) 15 gm Q15M PRN PO DECREASED GLUCOSE; Start 04/13/17 at 21:30 Glucose (Glutose) 22.5 gm Q15M PRN PO DECREASED GLUCOSE; Start 04/13/17 at 21: 30 Dextrose (D50w Syringe) 25 ml Q15M PRN IV DECREASED GLUCOSE; Start 04/13/17 at 21:30 Dextrose (D50w Syringe) 50 ml Q15M PRN IV DECREASED GLUCOSE; Start 04/13/17 at 21:30 Glucagon (Glucagen) 1 mg Q15M PRN IM DECREASED GLUCOSE; Start 04/13/17 at 21:30 Glucose (Glutose) 15 gm Q15M PRN BUCCAL DECREASED GLUCOSE; Start 04/13/17 at 21 :30 Ondansetron HCl (Zofran Inj) 4 mg Q6 PRN IV NAUSEA AND/OR VOMITING Last administered on 04/26/17 20:25; Admin Dose 4 MG; Start 04/13/17 at 21:30 Guaifenesin/ Dextromethorphan (Robitussin Dm Liquid Cup) 5 ml Q4H PRN PO COUGH Last administered on 04/19/17 05:09; Admin Dose 5 ML; Start 04/15/17 at 16:30 Pantoprazole (Protonix Tab) 40 mg DAILY@06 PO Last administered on 05/01/17 06 :07; Admin Dose 40 MG; Start 04/17/17 at 06:00 Acetaminophen (Tylenol Tab) 500 mg Q6H PRN PO PAIN AND OR ELEVATED TEMP Last administered on 04/28/17 18:33; Admin Dose 500 MG; Start 04/17/17 at 03:00 Magnesium Hydroxide 30 ml 30 ml DAILY PRN PO CONSTIPATION Last administered on 04/28/17 18:33; Admin Dose 30 ML; Start 04/17/17 at 11:30 Ampicillin Sodium/ Sulbactam Sodium (Unasyn 1.5gm/NS (Pmx)) 50 ml @ 100 mls/hr Q6 IVPB Last administered on 05/01/17 17:26; Admin Dose 100 MLS/HR; Start at 18:00 Fentanyl (Duragesic 12 Mcg/Hr Patch) 1 patch Q72H TRANSDERM Last administered on 05/01/17 09:16; Admin Dose 1 PATCH; Start 04/22/17 at 05:30 Morphine Sulfate (morphine) 1 mg Q4H PRN IV SEVERE PAIN LEVEL 7-10 Last administered on 04/26/17 20:25; Admin Dose 1 MG; Start 04/22/17 at 17:30 Metoclopramide HCl (Reglan) 10 mg Q6H PRN IV NAUSEA Last administered on 20:18; Admin Dose 10 MG; Start 04/22/17 at 21:00 Enoxaparin Sodium (Lovenox) 30 mg DAILY SC Last administered on 04/30/17 09:47 ; Admin Dose 30 MG; Start 04/23/17 at 20:30 Acetaminophen (Tylenol Supp) 650 mg Q6H PRN [place] FEVER GREATER THAN 100.6; Start 04/23/17 at 20:30 Acetaminophen (Tylenol Tab) 650 mg Q6H PRN PO PAIN AND OR ELEVATED TEMP Last administered on 05/01/17 06:44; Admin Dose 650 MG; Start 04/23/17 at 20:30 Lactobacillus Acidophilus/ Rhamnosus (Culturelle) 1 cap BID PO Last administered on 04/30/17 20:39; Admin Dose 1 CAP; Start 04/24/17 at 11:30 Diagnostic Test (Pha) (Accu-Chek) 1 ea 02 XX ; Start 04/26/17 at 02:00 Furosemide (Lasix) 20 mg DAILY IV Last administered on 05/01/17 08:57; Admin Dose 20 MG; Start 04/30/17 at 09:00 Docusate Sodium (Colace) 100 mg BID PO Last administered on 04/30/17 20:39; Admin Dose 100 MG; Start 04/30/17 at 21:00 NGOC GARZA MD May 01, 2017 17:52
--- NOTE | 2017-05-01 18:49 | CONS ---
Date/Time of Note Date/Time of Note DATE: 05/01/17 TIME: 18:46 Assessment/Plan Assessment/Plan Chief Complaint/Hosp Course IMP: 1.Hypotension-now improved/stable 2.abnl ecg-negative trop x 3/NL EF by echo. NO CP 3.Liver abscess s/p CT guided drainage 4.H/O lung ca s/p resection with lung nodules by CT? 5.Lung nodules 6. Hyponatremia 7. Effusion s/p CT with ongoing effusion Recc: -Tele -Continue abx's -F/U cx data -Follow BP closely -pain control -Now resumed on lasix daily, follow volume status/NA closely -Follow CT output with possible need for vats/decortication Problems: Consultation Date/Type/Reason Admit Date/Time Apr 13, 2017 at 19:51 Initial Consult Date 04/13/17 Type of Consultation: cardiology Reason for Consultation chest pain Referring Provider: DARREL BURT MD Exam/Review of Systems Vital Signs Vitals Vital Signs Date Time Temp Pulse Resp B/P Pulse Ox O2 Delivery O2 Flow Rate FiO2 05/01/17 16:12 95 05/01/17 15:27 98.1 18 124/68 96 05/01/17 08:55 Nasal Cannula 2.0 Intake and Output 04/30/17 04/30/17 05/01/17 15:00 23:00 07:00 Intake Total 50 ml 1060 ml 450 ml Balance 50 ml 1060 ml 450 ml Exam Review of Systems: CONSTITUTIONAL: No fevers, chills. PULMONARY: No sob CARDIOVASCULAR: No chest pain/palpitations GASTROINTESTINAL: No nausea/vomiting. GENITOURINARY: No hematuria/dysuria. MUSCULOSKELETAL: No myagias/arthalgias. PSYCHIATRIC: The patient denies depression. NEUROLOGIC: No weakness Constitutional: alert Psych: no complaints Head: normocephalic ENMT: mucosa pink and moist Neck: jvd (9 cm water), supple Respiratory: diminished breath sounds (at bases/B), other (R sided chest tube) Cardiovascular: regular rate and rhythm Gastrointestinal: non-tender, soft Musculoskeletal: muscle weakness (mild generalized) Extremities: edema (none) 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: other (No focal deficits) Results Result Diagram: 04/30/17 0646 04/30/17 0646 Results 24 hrs Laboratory Tests Test 04/30/17 20:10 05/01/17 08:58 05/01/17 13:04 05/01/17 17:26 Bedside Glucose 210 97 86 96 Medications Medications Current Medications Miscellaneous Information 1 ea NOTE XX ; Start 04/13/17 at 21:30 Glucose (Glutose) 15 gm Q15M PRN PO DECREASED GLUCOSE; Start 04/13/17 at 21:30 Glucose (Glutose) 22.5 gm Q15M PRN PO DECREASED GLUCOSE; Start 04/13/17 at 21: 30 Dextrose (D50w Syringe) 25 ml Q15M PRN IV DECREASED GLUCOSE; Start 04/13/17 at 21:30 Dextrose (D50w Syringe) 50 ml Q15M PRN IV DECREASED GLUCOSE; Start 04/13/17 at 21:30 Glucagon (Glucagen) 1 mg Q15M PRN IM DECREASED GLUCOSE; Start 04/13/17 at 21:30 Glucose (Glutose) 15 gm Q15M PRN BUCCAL DECREASED GLUCOSE; Start 04/13/17 at 21 :30 Ondansetron HCl (Zofran Inj) 4 mg Q6 PRN IV NAUSEA AND/OR VOMITING Last administered on 04/26/17 20:25; Admin Dose 4 MG; Start 04/13/17 at 21:30 Guaifenesin/ Dextromethorphan (Robitussin Dm Liquid Cup) 5 ml Q4H PRN PO COUGH Last administered on 04/19/17 05:09; Admin Dose 5 ML; Start 04/15/17 at 16:30 Pantoprazole (Protonix Tab) 40 mg DAILY@06 PO Last administered on 05/01/17 06 :07; Admin Dose 40 MG; Start 04/17/17 at 06:00 Acetaminophen (Tylenol Tab) 500 mg Q6H PRN PO PAIN AND OR ELEVATED TEMP Last administered on 04/28/17 18:33; Admin Dose 500 MG; Start 04/17/17 at 03:00 Magnesium Hydroxide 30 ml 30 ml DAILY PRN PO CONSTIPATION Last administered on 04/28/17 18:33; Admin Dose 30 ML; Start 04/17/17 at 11:30 Ampicillin Sodium/ Sulbactam Sodium (Unasyn 1.5gm/NS (Pmx)) 50 ml @ 100 mls/hr Q6 IVPB Last administered on 05/01/17 17:26; Admin Dose 100 MLS/HR; Start at 18:00 Fentanyl (Duragesic 12 Mcg/Hr Patch) 1 patch Q72H TRANSDERM Last administered on 05/01/17 09:16; Admin Dose 1 PATCH; Start 04/22/17 at 05:30 Morphine Sulfate (morphine) 1 mg Q4H PRN IV SEVERE PAIN LEVEL 7-10 Last administered on 04/26/17 20:25; Admin Dose 1 MG; Start 04/22/17 at 17:30 Metoclopramide HCl (Reglan) 10 mg Q6H PRN IV NAUSEA Last administered on 20:18; Admin Dose 10 MG; Start 04/22/17 at 21:00 Enoxaparin Sodium (Lovenox) 30 mg DAILY SC Last administered on 04/30/17 09:47 ; Admin Dose 30 MG; Start 04/23/17 at 20:30 Acetaminophen (Tylenol Supp) 650 mg Q6H PRN [place] FEVER GREATER THAN 100.6; Start 04/23/17 at 20:30 Acetaminophen (Tylenol Tab) 650 mg Q6H PRN PO PAIN AND OR ELEVATED TEMP Last administered on 05/01/17 06:44; Admin Dose 650 MG; Start 04/23/17 at 20:30 Lactobacillus Acidophilus/ Rhamnosus (Culturelle) 1 cap BID PO Last administered on 04/30/17 20:39; Admin Dose 1 CAP; Start 04/24/17 at 11:30 Diagnostic Test (Pha) (Accu-Chek) 1 ea 02 XX ; Start 04/26/17 at 02:00 Furosemide (Lasix) 20 mg DAILY IV Last administered on 05/01/17 08:57; Admin Dose 20 MG; Start 04/30/17 at 09:00 Docusate Sodium (Colace) 100 mg BID PO Last administered on 04/30/17 20:39; Admin Dose 100 MG; Start 04/30/17 at 21:00 LILIANA BARKSDALE May 01, 2017 18:49
--- NOTE | 2017-05-01 19:46 | PN ---
Date/Time of Note Date/Time of Note DATE: 05/01/17 TIME: 19:44 Assessment/Plan VTE Prophylaxis VTE Prophylaxis Intervention: SCD's Lines/Catheters IV [facility] Saline Lock Urinary Cath still in place: No Assessment/Plan Chief Complaint/Hosp Course Patient remains hemodynamically stable, tolerating diet well, denies abdominal pain. Assessment/Plan - Bilateral pleural effusions right more than left, status post right thoracentesis 04/20. S/p right chest tube insertion on 04/[address] Jackson, vascular surgery. S/p right thoracentesis 04/26. - Acute respiratory failure secondary to #1, Dr. Damico is following in pulmonology consultation continue oxygen oxygen supplementation - Severe sepsis 2/2 to liver abscess, resolving. Continue antibiotics per ID. is following infection disease consultation - Liver abscess unchanged per recent CT, s/p CT guided drainage 04/15/2017, s/p CT guided percutaneous drainage of liver abscess 04/23, status post CT-guided liver abscess drainage 04/27 - Normocytic anemia requiring blood transfusion - Hx of rectal CA s/p Low anterior resection 08/29/2016 Further recommendations based on clinical course. Plan of care discussed with Dr. Dior Problems: Exam/Review of Systems Vital Signs Vitals Vital Signs Date Time Temp Pulse Resp B/P Pulse Ox O2 Delivery O2 Flow Rate FiO2 05/01/17 16:12 95 05/01/17 15:27 98.1 18 124/68 96 05/01/17 08:55 Nasal Cannula 2.0 Intake and Output 04/30/17 04/30/17 05/01/17 15:00 23:00 07:00 Intake Total 50 ml 1060 ml 450 ml Balance 50 ml 1060 ml 450 ml Exam Constitutional: alert Neck: supple Respiratory: diminished breath sounds, CT Cardiovascular: nl pulses Gastrointestinal: other (Hepatic drains *2), soft Extremities: normal pulses Constitutional: alert, oriented, well developed Results Result Diagram: 04/30/17 0646 04/30/17 0646 Results 24 hrs Laboratory Tests Test 04/30/17 20:10 05/01/17 08:58 05/01/17 13:04 05/01/17 17:26 Bedside Glucose 210 97 86 96 Medications Medications Current Medications Miscellaneous Information 1 ea NOTE XX ; Start 04/13/17 at 21:30 Glucose (Glutose) 15 gm Q15M PRN PO DECREASED GLUCOSE; Start 04/13/17 at 21:30 Glucose (Glutose) 22.5 gm Q15M PRN PO DECREASED GLUCOSE; Start 04/13/17 at 21: 30 Dextrose (D50w Syringe) 25 ml Q15M PRN IV DECREASED GLUCOSE; Start 04/13/17 at 21:30 Dextrose (D50w Syringe) 50 ml Q15M PRN IV DECREASED GLUCOSE; Start 04/13/17 at 21:30 Glucagon (Glucagen) 1 mg Q15M PRN IM DECREASED GLUCOSE; Start 04/13/17 at 21:30 Glucose (Glutose) 15 gm Q15M PRN BUCCAL DECREASED GLUCOSE; Start 04/13/17 at 21 :30 Ondansetron HCl (Zofran Inj) 4 mg Q6 PRN IV NAUSEA AND/OR VOMITING Last administered on 04/26/17 20:25; Admin Dose 4 MG; Start 04/13/17 at 21:30 Guaifenesin/ Dextromethorphan (Robitussin Dm Liquid Cup) 5 ml Q4H PRN PO COUGH Last administered on 04/19/17 05:09; Admin Dose 5 ML; Start 04/15/17 at 16:30 Pantoprazole (Protonix Tab) 40 mg DAILY@06 PO Last administered on 05/01/17 06 :07; Admin Dose 40 MG; Start 04/17/17 at 06:00 Acetaminophen (Tylenol Tab) 500 mg Q6H PRN PO PAIN AND OR ELEVATED TEMP Last administered on 04/28/17 18:33; Admin Dose 500 MG; Start 04/17/17 at 03:00 Magnesium Hydroxide 30 ml 30 ml DAILY PRN PO CONSTIPATION Last administered on 04/28/17 18:33; Admin Dose 30 ML; Start 04/17/17 at 11:30 Ampicillin Sodium/ Sulbactam Sodium (Unasyn 1.5gm/NS (Pmx)) 50 ml @ 100 mls/hr Q6 IVPB Last administered on 05/01/17 17:26; Admin Dose 100 MLS/HR; Start at 18:00 Fentanyl (Duragesic 12 Mcg/Hr Patch) 1 patch Q72H TRANSDERM Last administered on 05/01/17 09:16; Admin Dose 1 PATCH; Start 04/22/17 at 05:30 Morphine Sulfate (morphine) 1 mg Q4H PRN IV SEVERE PAIN LEVEL 7-10 Last administered on 04/26/17 20:25; Admin Dose 1 MG; Start 04/22/17 at 17:30 Metoclopramide HCl (Reglan) 10 mg Q6H PRN IV NAUSEA Last administered on 20:18; Admin Dose 10 MG; Start 04/22/17 at 21:00 Enoxaparin Sodium (Lovenox) 30 mg DAILY SC Last administered on 04/30/17 09:47 ; Admin Dose 30 MG; Start 04/23/17 at 20:30 Acetaminophen (Tylenol Supp) 650 mg Q6H PRN [place] FEVER GREATER THAN 100.6; Start 04/23/17 at 20:30 Acetaminophen (Tylenol Tab) 650 mg Q6H PRN PO PAIN AND OR ELEVATED TEMP Last administered on 05/01/17 06:44; Admin Dose 650 MG; Start 04/23/17 at 20:30 Lactobacillus Acidophilus/ Rhamnosus (Culturelle) 1 cap BID PO Last administered on 04/30/17 20:39; Admin Dose 1 CAP; Start 04/24/17 at 11:30 Diagnostic Test (Pha) (Accu-Chek) 1 ea 02 XX ; Start 04/26/17 at 02:00 Furosemide (Lasix) 20 mg DAILY IV Last administered on 05/01/17 08:57; Admin Dose 20 MG; Start 04/30/17 at 09:00 Docusate Sodium (Colace) 100 mg BID PO Last administered on 04/30/17 20:39; Admin Dose 100 MG; Start 04/30/17 at 21:00 WINDY EMERY May 01, 2017 19:46
[2017-05-02] VITALS (12 sets, daily range): BP systolic 110–118; BP diastolic 59–71; PULSE 82–100; RESP 16–18
[2017-05-02] MEDS: ACCU-CHEK XX SCH (02:00)
[2017-05-02] MEDS: PANTOPRAZOLE (EC) 40 MG TAB PO SCH (05:57)
[2017-05-02] MEDS: AMPICILLIN/SULB 1.5GM/NS (PMX) 50 ML IVPB SCH ×4 (05:57→17:26)
[2017-05-02] MEDS: ENOXAPARIN 30 MG/0.3 ML SYG SC SCH (08:30)
[2017-05-02] MEDS: LACTOBACILLUS RHAMNOSUS CAP PO SCH ×2 (08:30→20:24)
[2017-05-02] MEDS: DOCUSATE SODIUM 100 MG CAP PO SCH ×2 (08:30→20:24)
[2017-05-02] MEDS: FUROSEMIDE 20 MG INJ IV SCH (08:32)
[2017-05-02] MEDS: Insulin NOVOLOG SS MILD Algorithm (SS with meals and bedtime) SC SCH ×4 (08:40→20:23)
[2017-05-02 09:01] LABS: BASOPHILS % 0.3 % (0.0-2.0); EOSINOPHILS # 0.1 10^3/ul (0.0-0.5); EOSINOPHILS % 1.4 % (0.0-7.0); HEMATOCRIT 27.1 % (37.0-47.0); HEMOGLOBIN 8.8 g/dl (12.0-16.0); LYMPHOCYTES # 1.9 10^3/ul (0.8-2.9); LYMPHOCYTES % 21.2 % (15.0-51.0); MEAN CORPUSCULAR HEMOGLOBIN 30.4 pg (29.0-33.0); MEAN CORPUSCULAR HGB CONC 32.5 g/dl (32.0-37.0); MEAN CORPUSCULAR VOLUME 93.8 fl (82.0-101.0); MEAN PLATELET VOLUME 8.2 fl (7.4-10.4); MONOCYTE # 1.1 10^3/ul (0.3-0.9); NEUTROPHIL # 5.6 10^3/ul (1.6-7.5); NEUTROPHILS % 63.9 % (39.0-77.0); PLATELET COUNT 535 10^3/UL (140-415); RED BLOOD COUNT 2.89 10^6/ul (4.20-5.40); RED CELL DISTRIBUTION WIDTH 13.8 % (11.5-14.5); WHITE BLOOD COUNT 8.8 10^3/ul (4.8-10.8)
[2017-05-02 09:36] LABS: ALBUMIN 2.6 g/dl (3.3-4.9); ALBUMIN/GLOBULIN RATIO 0.65; BILIRUBIN,INDIRECT 0.1 mg/dl (0-1.1); BILIRUBIN,TOTAL 0.1 mg/dl (0.2-1.3); CALCIUM 8.8 mg/dl (8.4-10.2); CREATININE 0.39 mg/dl (0.44-1.00); POTASSIUM 3.5 mmol/L (3.5-5.1); TOTAL PROTEIN 6.6 g/dl (6.1-8.1)
--- NOTE | 2017-05-02 10:18 | CONS ---
Date/Time of Note Date/Time of Note DATE: 05/02/17 TIME: 10:17 Assessment/Plan Assessment/Plan Chief Complaint/Hosp Course - severe sepsis due to pyogenic liver abscess, loculated pleural effusion - multiloculated pyogenic liver abscess s/p CT guided drainage catheter placement 04/15/2017, 04/23/2017, s/p repeat drainage 04/27/2017; cultures from gamma hemolytic strep, cultures from 04/23/2017 alpha hemolytic strep - Loculated pleural effusion likely secondary to hepatic process/Hepatic hydrothorax, R>L, s/p R thoracentesis on 04/20/2017, s/p chest tube placement on 04/22/2017 - intermittent diarrhea - normocytic anemia requiring blood transfusion - coagulopathy, improved - Transaminitis, improved - Hyponatremia - CoNS in urine culture with trivial pyuria, likely contaminant - Hx of rectal CA s/p Low anterior resection 08/29/2016 - Severe protein calorie malnutrition - allergy to vancomycin recommendations: - will send C diff if diarrhea recurs - check weekly CBC and BMP while Pt's on long-term antibiotic - continue amp/sulbactam (04/18/2017-); s/p linezolid and pip/tazo (04/13-2016). we recommend long-term (6 weeks at least) antibiotic administration; we recommend repeat imaging prior to antibiotic cessation to ensure resolution management d/w Pt Problems: Consultation Date/Type/Reason Admit Date/Time Apr 13, 2017 at 19:51 Initial Consult Date 04/21/17 Type of Consultation: ID Referring Provider: DARREL BURT MD 24 HR Interval Summary Constitutional: no complaints Detailed Summary Eyes: no complaints ENT: no complaints Respiratory: no complaints Cardiovascular: no complaints Gastrointestinal: no complaints, passing stool (one BM, formed) Genitourinary: no complaints Musculoskeletal: no complaints Skin: no complaints Exam/Review of Systems Vital Signs Vitals Vital Signs Date Time Temp Pulse Resp B/P Pulse Ox O2 Delivery O2 Flow Rate FiO2 05/02/17 08:23 Nasal Cannula 2.0 05/02/17 08:21 84 05/02/17 07:44 98.1 18 116/60 100 Intake and Output 05/01/17 05/01/17 05/02/17 15:00 23:00 07:00 Intake Total 50 ml 600 ml 500 ml Output Total 0 ml 0 ml Balance 50 ml 600 ml 500 ml Exam Constitutional: alert, frail, oriented Psych: nl mood/affect, no complaints Head: atraumatic, normocephalic Eyes: nl conjunctiva, nl lids, nl sclera ENMT: nl external ears & nose, nl nasal mucosa & septum Neck: supple Respiratory: diminished breath sounds, other (chest tube) Cardiovascular: nl pulses, regular rate and rhythm Gastrointestinal: other (external draiange catheters) Musculoskeletal: nl extremities to inspection Extremities: No edema 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: BICYCLE FITTER II-XII intact, 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 Results Result Diagram: 05/02/17 0801 05/02/17 0801 Results 24 hrs Laboratory Tests Test 05/01/17 13:04 05/01/17 17:26 05/01/17 20:12 05/02/17 02:22 Bedside Glucose 86 96 144 91 Test 05/02/17 08:01 05/02/17 08:36 White Blood Count 8.8 Red Blood Count 2.89 L Hemoglobin 8.8 L Hematocrit 27.1 L Mean Corpuscular Volume 93.8 Mean Corpuscular Hemoglobin 30.4 Mean Corpuscular Hemoglobin Concent 32.5 Red Cell Distribution Width 13.8 Platelet Count 535 H Mean Platelet Volume 8.2 Neutrophils % 63.9 Lymphocytes % 21.2 Monocytes % 12.0 H Eosinophils % 1.4 Basophils % 0.3 Nucleated Red Blood Cells % 0.0 Neutrophils # 5.6 Lymphocytes # 1.9 Monocytes # 1.1 H Eosinophils # 0.1 Basophils # 0.0 Nucleated Red Blood Cells # 0.0 Sodium Level 133 L Potassium Level 3.5 Chloride Level 97 Carbon Dioxide Level 33 H Anion Gap 7 L Blood Urea Nitrogen 10 Creatinine 0.39 L Glucose Level 109 Calcium Level 8.8 Total Bilirubin 0.1 L Direct Bilirubin 0.00 Indirect Bilirubin 0.1 Aspartate Amino Transf (AST/SGOT) 31 Alanine Aminotransferase (ALT/SGPT) 32 Alkaline Phosphatase 149 H Total Protein 6.6 Albumin 2.6 L Globulin 4.00 H Albumin/Globulin Ratio 0.65 Bedside Glucose 104 Medications Medications Current Medications Miscellaneous Information 1 ea NOTE XX ; Start 04/13/17 at 21:30 Glucose (Glutose) 15 gm Q15M PRN PO DECREASED GLUCOSE; Start 04/13/17 at 21:30 Glucose (Glutose) 22.5 gm Q15M PRN PO DECREASED GLUCOSE; Start 04/13/17 at 21: 30 Dextrose (D50w Syringe) 25 ml Q15M PRN IV DECREASED GLUCOSE; Start 04/13/17 at 21:30 Dextrose (D50w Syringe) 50 ml Q15M PRN IV DECREASED GLUCOSE; Start 04/13/17 at 21:30 Glucagon (Glucagen) 1 mg Q15M PRN IM DECREASED GLUCOSE; Start 04/13/17 at 21:30 Glucose (Glutose) 15 gm Q15M PRN BUCCAL DECREASED GLUCOSE; Start 04/13/17 at 21 :30 Ondansetron HCl (Zofran Inj) 4 mg Q6 PRN IV NAUSEA AND/OR VOMITING Last administered on 04/26/17 20:25; Admin Dose 4 MG; Start 04/13/17 at 21:30 Guaifenesin/ Dextromethorphan (Robitussin Dm Liquid Cup) 5 ml Q4H PRN PO COUGH Last administered on 04/19/17 05:09; Admin Dose 5 ML; Start 04/15/17 at 16:30 Pantoprazole (Protonix Tab) 40 mg DAILY@06 PO Last administered on 05/02/17 05 :57; Admin Dose 40 MG; Start 04/17/17 at 06:00 Acetaminophen (Tylenol Tab) 500 mg Q6H PRN PO PAIN AND OR ELEVATED TEMP Last administered on 04/28/17 18:33; Admin Dose 500 MG; Start 04/17/17 at 03:00 Magnesium Hydroxide 30 ml 30 ml DAILY PRN PO CONSTIPATION Last administered on 04/28/17 18:33; Admin Dose 30 ML; Start 04/17/17 at 11:30 Ampicillin Sodium/ Sulbactam Sodium (Unasyn 1.5gm/NS (Pmx)) 50 ml @ 100 mls/hr Q6 IVPB Last administered on 05/02/17 05:57; Admin Dose 100 MLS/HR; Start at 18:00 Fentanyl (Duragesic 12 Mcg/Hr Patch) 1 patch Q72H TRANSDERM Last administered on 05/01/17 09:16; Admin Dose 1 PATCH; Start 04/22/17 at 05:30 Morphine Sulfate (morphine) 1 mg Q4H PRN IV SEVERE PAIN LEVEL 7-10 Last administered on 04/26/17 20:25; Admin Dose 1 MG; Start 04/22/17 at 17:30 Metoclopramide HCl (Reglan) 10 mg Q6H PRN IV NAUSEA Last administered on 20:18; Admin Dose 10 MG; Start 04/22/17 at 21:00 Enoxaparin Sodium (Lovenox) 30 mg DAILY SC Last administered on 05/02/17 08:30 ; Admin Dose 30 MG; Start 04/23/17 at 20:30 Acetaminophen (Tylenol Supp) 650 mg Q6H PRN [place] FEVER GREATER THAN 100.6; Start 04/23/17 at 20:30 Acetaminophen (Tylenol Tab) 650 mg Q6H PRN PO PAIN AND OR ELEVATED TEMP Last administered on 05/01/17 06:44; Admin Dose 650 MG; Start 04/23/17 at 20:30 Lactobacillus Acidophilus/ Rhamnosus (Culturelle) 1 cap BID PO Last administered on 05/02/17 08:30; Admin Dose 1 CAP; Start 04/24/17 at 11:30 Diagnostic Test (Pha) (Accu-Chek) 1 ea 02 XX ; Start 04/26/17 at 02:00 Furosemide (Lasix) 20 mg DAILY IV Last administered on 05/02/17 08:32; Admin Dose 20 MG; Start 04/30/17 at 09:00 Docusate Sodium (Colace) 100 mg BID PO Last administered on 05/02/17 08:30; Admin Dose 100 MG; Start 04/30/17 at 21:00 AARON ANSARI M.D. May 02, 2017 10:17
[2017-05-02] MEDS ORDERED: SOD CHLORIDE 0.9% 100 ML ONE (11:11)
[2017-05-02] MEDS ORDERED: IOHEXOL 300MG/ML 150 ML BTL ONE (11:11)
--- NOTE | 2017-05-02 12:42 | PN ---
Date/Time of Note Date/Time of Note DATE: 05/02/17 TIME: 12:41 Assessment/Plan VTE Prophylaxis VTE Prophylaxis Intervention: other Lines/Catheters IV [facility] Type (from [facility] Saline Lock Urinary Cath still in place: No Assessment/Plan Chief Complaint/Hosp Course - Bilateral pleural effusions right more than left, status post right thoracentesis 04/20. S/p right chest tube insertion on 04/[address] Jackson, vascular surgery. S/p right thoracentesis 04/26. - Acute respiratory failure secondary to #1, Dr. Damico is following in pulmonology consultation continue oxygen oxygen supplementation - Severe sepsis 2/2 to liver abscess, resolving. Continue antibiotics per ID. is following infection disease consultation - Liver abscess unchanged per recent CT, s/p CT guided drainage 04/15/2017, s/p CT guided percutaneous drainage of liver abscess 04/23, status post CT-guided liver abscess drainage 04/27 - Normocytic anemia requiring blood transfusion - Hx of rectal CA s/p Low anterior resection 08/29/2016 Problems: Subjective 24 Hr Interval Summary Free Text/Dictation Patient denies any complaints Exam/Review of Systems Vital Signs Vitals Vital Signs Date Time Temp Pulse Resp B/P Pulse Ox O2 Delivery O2 Flow Rate FiO2 05/02/17 11:51 98.1 89 18 111/59 98 05/02/17 08:23 Nasal Cannula 2.0 Intake and Output 05/01/17 05/01/17 05/02/17 15:00 23:00 07:00 Intake Total 50 ml 600 ml 500 ml Output Total 0 ml 0 ml Balance 50 ml 600 ml 500 ml Exam Constitutional: well developed Head: atraumatic, normocephalic Neck: supple Respiratory: diminished breath sounds Cardiovascular: regular rate and rhythm Gastrointestinal: non-tender, soft Extremities: normal pulses Results Result Diagram: 05/02/17 0801 05/02/17 0801 Results 24 hrs Laboratory Tests Test 05/01/17 13:04 05/01/17 17:26 05/01/17 20:12 05/02/17 02:22 Bedside Glucose 86 96 144 91 Test 05/02/17 08:01 05/02/17 08:36 White Blood Count 8.8 Red Blood Count 2.89 L Hemoglobin 8.8 L Hematocrit 27.1 L Mean Corpuscular Volume 93.8 Mean Corpuscular Hemoglobin 30.4 Mean Corpuscular Hemoglobin Concent 32.5 Red Cell Distribution Width 13.8 Platelet Count 535 H Mean Platelet Volume 8.2 Neutrophils % 63.9 Lymphocytes % 21.2 Monocytes % 12.0 H Eosinophils % 1.4 Basophils % 0.3 Nucleated Red Blood Cells % 0.0 Neutrophils # 5.6 Lymphocytes # 1.9 Monocytes # 1.1 H Eosinophils # 0.1 Basophils # 0.0 Nucleated Red Blood Cells # 0.0 Sodium Level 133 L Potassium Level 3.5 Chloride Level 97 Carbon Dioxide Level 33 H Anion Gap 7 L Blood Urea Nitrogen 10 Creatinine 0.39 L Glucose Level 109 Calcium Level 8.8 Total Bilirubin 0.1 L Direct Bilirubin 0.00 Indirect Bilirubin 0.1 Aspartate Amino Transf (AST/SGOT) 31 Alanine Aminotransferase (ALT/SGPT) 32 Alkaline Phosphatase 149 H Total Protein 6.6 Albumin 2.6 L Globulin 4.00 H Albumin/Globulin Ratio 0.65 Bedside Glucose 104 Medications Medications Current Medications Miscellaneous Information 1 ea NOTE XX ; Start 04/13/17 at 21:30 Glucose (Glutose) 15 gm Q15M PRN PO DECREASED GLUCOSE; Start 04/13/17 at 21:30 Glucose (Glutose) 22.5 gm Q15M PRN PO DECREASED GLUCOSE; Start 04/13/17 at 21: 30 Dextrose (D50w Syringe) 25 ml Q15M PRN IV DECREASED GLUCOSE; Start 04/13/17 at 21:30 Dextrose (D50w Syringe) 50 ml Q15M PRN IV DECREASED GLUCOSE; Start 04/13/17 at 21:30 Glucagon (Glucagen) 1 mg Q15M PRN IM DECREASED GLUCOSE; Start 04/13/17 at 21:30 Glucose (Glutose) 15 gm Q15M PRN BUCCAL DECREASED GLUCOSE; Start 04/13/17 at 21 :30 Ondansetron HCl (Zofran Inj) 4 mg Q6 PRN IV NAUSEA AND/OR VOMITING Last administered on 04/26/17 20:25; Admin Dose 4 MG; Start 04/13/17 at 21:30 Guaifenesin/ Dextromethorphan (Robitussin Dm Liquid Cup) 5 ml Q4H PRN PO COUGH Last administered on 04/19/17 05:09; Admin Dose 5 ML; Start 04/15/17 at 16:30 Pantoprazole (Protonix Tab) 40 mg DAILY@06 PO Last administered on 05/02/17 05 :57; Admin Dose 40 MG; Start 04/17/17 at 06:00 Acetaminophen (Tylenol Tab) 500 mg Q6H PRN PO PAIN AND OR ELEVATED TEMP Last administered on 04/28/17 18:33; Admin Dose 500 MG; Start 04/17/17 at 03:00 Magnesium Hydroxide 30 ml 30 ml DAILY PRN PO CONSTIPATION Last administered on 04/28/17 18:33; Admin Dose 30 ML; Start 04/17/17 at 11:30 Ampicillin Sodium/ Sulbactam Sodium (Unasyn 1.5gm/NS (Pmx)) 50 ml @ 100 mls/hr Q6 IVPB Last administered on 05/02/17 12:31; Admin Dose 100 MLS/HR; Start at 18:00 Fentanyl (Duragesic 12 Mcg/Hr Patch) 1 patch Q72H TRANSDERM Last administered on 05/01/17 09:16; Admin Dose 1 PATCH; Start 04/22/17 at 05:30 Morphine Sulfate (morphine) 1 mg Q4H PRN IV SEVERE PAIN LEVEL 7-10 Last administered on 04/26/17 20:25; Admin Dose 1 MG; Start 04/22/17 at 17:30 Metoclopramide HCl (Reglan) 10 mg Q6H PRN IV NAUSEA Last administered on 20:18; Admin Dose 10 MG; Start 04/22/17 at 21:00 Enoxaparin Sodium (Lovenox) 30 mg DAILY SC Last administered on 05/02/17 08:30 ; Admin Dose 30 MG; Start 04/23/17 at 20:30 Acetaminophen (Tylenol Supp) 650 mg Q6H PRN [place] FEVER GREATER THAN 100.6; Start 04/23/17 at 20:30 Acetaminophen (Tylenol Tab) 650 mg Q6H PRN PO PAIN AND OR ELEVATED TEMP Last administered on 05/01/17 06:44; Admin Dose 650 MG; Start 04/23/17 at 20:30 Lactobacillus Acidophilus/ Rhamnosus (Culturelle) 1 cap BID PO Last administered on 05/02/17 08:30; Admin Dose 1 CAP; Start 04/24/17 at 11:30 Diagnostic Test (Pha) (Accu-Chek) 1 ea 02 XX ; Start 04/26/17 at 02:00 Furosemide (Lasix) 20 mg DAILY IV Last administered on 05/02/17 08:32; Admin Dose 20 MG; Start 04/30/17 at 09:00 Docusate Sodium (Colace) 100 mg BID PO Last administered on 05/02/17 08:30; Admin Dose 100 MG; Start 04/30/17 at 21:00 [employer] May 02, 2017 12:42
--- NOTE | 2017-05-02 13:01 | PN ---
DATE: 05/01/2017 SUBJECTIVE: Patient feels good. No shortness of breath. No abdominal pain. Positive passing gas today, but no bowel movement today. Tolerating diet. OBJECTIVE: GENERAL: Awake, alert, oriented x3. Two pigtail drains coming out through the abdominal wall anteriorly and going to the liver abscess cavity. 1 chest tube is in the right side of the chest pleural space. VITAL SIGNS: Stable. Temperature 98.1, heart rate 87, respirations 18, blood pressure 124/68, saturation 96 percent room air. ABDOMEN: Soft. Still has drains 5 mL and 12 mL, respectively. CHEST: Chest tube drainage minimal. The patient is alert, awake, oriented x3, in no acute distress. HEART: Regular. LUNGS: Left clear. Right decreased breathing sound in the right base. Right chest tube in place. LABORATORY DATA: No BMP or CMP today. No hematology lab today. ASSESSMENT AND PLAN: I ordered repositioning of the pigtail drain in Radiology under CT guidance, and placement of a new one in the abscess cavity. If there is any more abscess or loculation left, Dr. Decker apparently has said that he wants to order a CT scan of the abdomen first to make sure that there is any more abscess left and then if there is any more pocket is going to do that. Therefore, we are waiting for the plan and decision which was made by Dr. Decker in Radiology Department. Dictated By: Osmani Ceballos MD /rachel/audelia /Document#: [id number]
--- NOTE | 2017-05-02 14:33 | CONS ---
Date/Time of Note Date/Time of Note DATE: 05/02/17 TIME: 14:28 Assessment/Plan Assessment/Plan Chief Complaint/Hosp Course IMP: 1.Hypotension-now improved/stable 2.abnl ecg-negative trop x 3/NL EF by echo. NO CP 3.Liver abscess s/p CT guided drainage 4.H/O lung ca s/p resection with lung nodules by CT? 5.Lung nodules 6. Hyponatremia 7. Effusion s/p CT with ongoing effusion Recc: -Tele -Continue abx's -F/U cx data -Follow BP closely -pain control -Continue lasix daily but will likely change to PO tomorrow, follow volume status/NA closely -Follow CT output with possible need for vats/decortication Problems: Consultation Date/Type/Reason Admit Date/Time Apr 13, 2017 at 19:51 Initial Consult Date 04/13/17 Type of Consultation: cardiology Reason for Consultation chest pain Referring Provider: DARREL BURT MD Exam/Review of Systems Vital Signs Vitals Vital Signs Date Time Temp Pulse Resp B/P Pulse Ox O2 Delivery O2 Flow Rate FiO2 05/02/17 13:13 85 05/02/17 11:51 98.1 18 111/59 98 05/02/17 08:23 Nasal Cannula 2.0 Intake and Output 05/01/17 05/01/17 05/02/17 15:00 23:00 07:00 Intake Total 50 ml 600 ml 500 ml Output Total 0 ml 0 ml Balance 50 ml 600 ml 500 ml Exam Review of Systems: CONSTITUTIONAL: No fevers, chills. PULMONARY: No sob CARDIOVASCULAR: No chest pain/palpitations GASTROINTESTINAL: mil abd discomfort GENITOURINARY: No hematuria/dysuria. MUSCULOSKELETAL: No myagias/arthalgias. PSYCHIATRIC: The patient denies depression. NEUROLOGIC: No weakness Constitutional: other (sleeping, easily arousable) Psych: no complaints Head: normocephalic ENMT: mucosa pink and moist Respiratory: diminished breath sounds Cardiovascular: regular rate and rhythm Gastrointestinal: non-tender, soft Musculoskeletal: muscle tone (normal) Extremities: edema (trace/B) 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: other (No focal deficits) Results Result Diagram: 05/02/17 0801 05/02/17 0801 Results 24 hrs Laboratory Tests Test 05/01/17 17:26 05/01/17 20:12 05/02/17 02:22 05/02/17 08:01 Bedside Glucose 96 144 91 White Blood Count 8.8 Red Blood Count 2.89 L Hemoglobin 8.8 L Hematocrit 27.1 L Mean Corpuscular Volume 93.8 Mean Corpuscular Hemoglobin 30.4 Mean Corpuscular Hemoglobin Concent 32.5 Red Cell Distribution Width 13.8 Platelet Count 535 H Mean Platelet Volume 8.2 Neutrophils % 63.9 Lymphocytes % 21.2 Monocytes % 12.0 H Eosinophils % 1.4 Basophils % 0.3 Nucleated Red Blood Cells % 0.0 Neutrophils # 5.6 Lymphocytes # 1.9 Monocytes # 1.1 H Eosinophils # 0.1 Basophils # 0.0 Nucleated Red Blood Cells # 0.0 Sodium Level 133 L Potassium Level 3.5 Chloride Level 97 Carbon Dioxide Level 33 H Anion Gap 7 L Blood Urea Nitrogen 10 Creatinine 0.39 L Glucose Level 109 Calcium Level 8.8 Total Bilirubin 0.1 L Direct Bilirubin 0.00 Indirect Bilirubin 0.1 Aspartate Amino Transf (AST/SGOT) 31 Alanine Aminotransferase (ALT/SGPT) 32 Alkaline Phosphatase 149 H Total Protein 6.6 Albumin 2.6 L Globulin 4.00 H Albumin/Globulin Ratio 0.65 Test 05/02/17 08:36 05/02/17 12:30 Bedside Glucose 104 109 Medications Medications Current Medications Miscellaneous Information 1 ea NOTE XX ; Start 04/13/17 at 21:30 Glucose (Glutose) 15 gm Q15M PRN PO DECREASED GLUCOSE; Start 04/13/17 at 21:30 Glucose (Glutose) 22.5 gm Q15M PRN PO DECREASED GLUCOSE; Start 04/13/17 at 21: 30 Dextrose (D50w Syringe) 25 ml Q15M PRN IV DECREASED GLUCOSE; Start 04/13/17 at 21:30 Dextrose (D50w Syringe) 50 ml Q15M PRN IV DECREASED GLUCOSE; Start 04/13/17 at 21:30 Glucagon (Glucagen) 1 mg Q15M PRN IM DECREASED GLUCOSE; Start 04/13/17 at 21:30 Glucose (Glutose) 15 gm Q15M PRN BUCCAL DECREASED GLUCOSE; Start 04/13/17 at 21 :30 Ondansetron HCl (Zofran Inj) 4 mg Q6 PRN IV NAUSEA AND/OR VOMITING Last administered on 04/26/17t 20:25; Admin Dose 4 MG; Start 04/13/17 at 21:30 Guaifenesin/ Dextromethorphan (Robitussin Dm Liquid Cup) 5 ml Q4H PRN PO COUGH Last administered on 04/19/17 05:09; Admin Dose 5 ML; Start 04/15/17 at 16:30 Pantoprazole (Protonix Tab) 40 mg DAILY@06 PO Last administered on 05/02/17 05 :57; Admin Dose 40 MG; Start 04/17/17 at 06:00 Acetaminophen (Tylenol Tab) 500 mg Q6H PRN PO PAIN AND OR ELEVATED TEMP Last administered on 04/28/17 18:33; Admin Dose 500 MG; Start 04/17/17 at 03:00 Magnesium Hydroxide 30 ml 30 ml DAILY PRN PO CONSTIPATION Last administered on 04/28/17 18:33; Admin Dose 30 ML; Start 04/17/17 at 11:30 Ampicillin Sodium/ Sulbactam Sodium (Unasyn 1.5gm/NS (Pmx)) 50 ml @ 100 mls/hr Q6 IVPB Last administered on 05/02/17 12:31; Admin Dose 100 MLS/HR; Start at 18:00 Fentanyl (Duragesic 12 Mcg/Hr Patch) 1 patch Q72H TRANSDERM Last administered on 05/01/17 09:16; Admin Dose 1 PATCH; Start 04/22/17 at 05:30 Morphine Sulfate (morphine) 1 mg Q4H PRN IV SEVERE PAIN LEVEL 7-10 Last administered on 04/26/17 20:25; Admin Dose 1 MG; Start 04/22/17 at 17:30 Metoclopramide HCl (Reglan) 10 mg Q6H PRN IV NAUSEA Last administered on 20:18; Admin Dose 10 MG; Start 04/22/17 at 21:00 Enoxaparin Sodium (Lovenox) 30 mg DAILY SC Last administered on 05/02/17 08:30 ; Admin Dose 30 MG; Start 04/23/17 at 20:30 Acetaminophen (Tylenol Supp) 650 mg Q6H PRN [place] FEVER GREATER THAN 100.6; Start 04/23/17 at 20:30 Acetaminophen (Tylenol Tab) 650 mg Q6H PRN PO PAIN AND OR ELEVATED TEMP Last administered on 05/01/17 06:44; Admin Dose 650 MG; Start 04/23/17 at 20:30 Lactobacillus Acidophilus/ Rhamnosus (Culturelle) 1 cap BID PO Last administered on 05/02/17 08:30; Admin Dose 1 CAP; Start 04/24/17 at 11:30 Diagnostic Test (Pha) (Accu-Chek) 1 ea 02 XX ; Start 04/26/17 at 02:00 Furosemide (Lasix) 20 mg DAILY IV Last administered on 05/02/17 08:32; Admin Dose 20 MG; Start 04/30/17 at 09:00 Docusate Sodium (Colace) 100 mg BID PO Last administered on 05/02/17 08:30; Admin Dose 100 MG; Start 04/30/17 at 21:00 LILIANA BARKSDALE May 02, 2017 14:33
--- NOTE | 2017-05-02 15:03 | CONS ---
Date/Time of Note Date/Time of Note DATE: 05/02/17 TIME: 14:59 Assessment/Plan Assessment/Plan Additional Assessment/Plan 1. Acute hyponatremia 2/2 Hypovolemic hyponatremia 2. sepsis due to liver abscess 3. Hepatic abscess on CT scan s/p CT guided drainage on 04/15/17 and 04/23/17. -Repeat CT abdomen - Interval development multiloculated abscess superior aspect of the anterior segment right lobe of liver. - Persistent bilateral pleural effusions 4. Acute transaminitis 5. h/o Colon CA s/p previous Surgery 6. Hypokalemia - resolved 7. Hyponatremia - 133 8. Multiloculated right pleural effusion s/p Thoracentesis x 2, on IV lasix . VATS pending Plan : Na 133 Cr normal, Continue lasix 20mg IV daily Cl. difficle ID recommended 6 weeks of Abx Monitor electroltytes and replace as needed. Chest tube in place in RLL - will talk pulmonary to see if pt needs pigtail catheter for right pleural effusion BP stable will follow up Plan of care shar Barroso 24 HR Interval Summary Free Text/Dictation no acute events, Na 133, Cr stable, ID recommended 6 weeks of IV abx Consultation Date/Type/Reason Admit Date/Time Apr 13, 2017 at 19:51 Initial Consult Date 04/15/17 Type of Consultation: cardiology Referring Provider: DARREL BURT MD 24 HR Interval Summary Free Text/Dictation Bck from CT abdomen, awaiting VATS, possible abscess drainage. dw staff Detailed Summary Respiratory: no complaints Cardiovascular: no complaints Gastrointestinal: pain Genitourinary: no complaints Musculoskeletal: no complaints Exam/Review of Systems Vital Signs Vitals Vital Signs Date Time Temp Pulse Resp B/P Pulse Ox O2 Delivery O2 Flow Rate FiO2 05/02/17 13:13 85 05/02/17 11:51 98.1 18 111/59 98 05/02/17 08:23 Nasal Cannula 2.0 Intake and Output 05/01/17 05/01/17 05/02/17 15:00 23:00 07:00 Intake Total 50 ml 600 ml 500 ml Output Total 0 ml 0 ml Balance 50 ml 600 ml 500 ml Exam Constitutional: alert Respiratory: diminished breath sounds Gastrointestinal: other, soft Musculoskeletal: nl extremities to inspection Extremities: normal pulses 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: 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, nl speech Results Result Diagram: 05/02/17 0801 05/02/17 0801 Results 24 hrs Laboratory Tests Test 05/01/17 17:26 05/01/17 20:12 05/02/17 02:22 05/02/17 08:01 Bedside Glucose 96 144 91 White Blood Count 8.8 Red Blood Count 2.89 L Hemoglobin 8.8 L Hematocrit 27.1 L Mean Corpuscular Volume 93.8 Mean Corpuscular Hemoglobin 30.4 Mean Corpuscular Hemoglobin Concent 32.5 Red Cell Distribution Width 13.8 Platelet Count 535 H Mean Platelet Volume 8.2 Neutrophils % 63.9 Lymphocytes % 21.2 Monocytes % 12.0 H Eosinophils % 1.4 Basophils % 0.3 Nucleated Red Blood Cells % 0.0 Neutrophils # 5.6 Lymphocytes # 1.9 Monocytes # 1.1 H Eosinophils # 0.1 Basophils # 0.0 Nucleated Red Blood Cells # 0.0 Sodium Level 133 L Potassium Level 3.5 Chloride Level 97 Carbon Dioxide Level 33 H Anion Gap 7 L Blood Urea Nitrogen 10 Creatinine 0.39 L Glucose Level 109 Calcium Level 8.8 Total Bilirubin 0.1 L Direct Bilirubin 0.00 Indirect Bilirubin 0.1 Aspartate Amino Transf (AST/SGOT) 31 Alanine Aminotransferase (ALT/SGPT) 32 Alkaline Phosphatase 149 H Total Protein 6.6 Albumin 2.6 L Globulin 4.00 H Albumin/Globulin Ratio 0.65 Test 05/02/17 08:36 05/02/17 12:30 Bedside Glucose 104 109 Medications Medications Current Medications Miscellaneous Information 1 ea NOTE XX ; Start 04/13/17 at 21:30 Glucose (Glutose) 15 gm Q15M PRN PO DECREASED GLUCOSE; Start 04/13/17 at 21:30 Glucose (Glutose) 22.5 gm Q15M PRN PO DECREASED GLUCOSE; Start 04/13/17 at 21: 30 Dextrose (D50w Syringe) 25 ml Q15M PRN IV DECREASED GLUCOSE; Start 04/13/17 at 21:30 Dextrose (D50w Syringe) 50 ml Q15M PRN IV DECREASED GLUCOSE; Start 04/13/17 at 21:30 Glucagon (Glucagen) 1 mg Q15M PRN IM DECREASED GLUCOSE; Start 04/13/17 at 21:30 Glucose (Glutose) 15 gm Q15M PRN BUCCAL DECREASED GLUCOSE; Start 04/13/17 at 21 :30 Ondansetron HCl (Zofran Inj) 4 mg Q6 PRN IV NAUSEA AND/OR VOMITING Last administered on 04/26/17 20:25; Admin Dose 4 MG; Start 04/13/17 at 21:30 Guaifenesin/ Dextromethorphan (Robitussin Dm Liquid Cup) 5 ml Q4H PRN PO COUGH Last administered on 04/19/17 05:09; Admin Dose 5 ML; Start 04/15/17 at 16:30 Pantoprazole (Protonix Tab) 40 mg DAILY@06 PO Last administered on 05/02/17 05 :57; Admin Dose 40 MG; Start 04/17/17 at 06:00 Acetaminophen (Tylenol Tab) 500 mg Q6H PRN PO PAIN AND OR ELEVATED TEMP Last administered on 04/28/17 18:33; Admin Dose 500 MG; Start 04/17/17 at 03:00 Magnesium Hydroxide 30 ml 30 ml DAILY PRN PO CONSTIPATION Last administered on 04/28/17 18:33; Admin Dose 30 ML; Start 04/17/17 at 11:30 Ampicillin Sodium/ Sulbactam Sodium (Unasyn 1.5gm/NS (Pmx)) 50 ml @ 100 mls/hr Q6 IVPB Last administered on 05/02/17 12:31; Admin Dose 100 MLS/HR; Start at 18:00 Fentanyl (Duragesic 12 Mcg/Hr Patch) 1 patch Q72H TRANSDERM Last administered on 05/01/17 09:16; Admin Dose 1 PATCH; Start 04/22/17 at 05:30 Morphine Sulfate (morphine) 1 mg Q4H PRN IV SEVERE PAIN LEVEL 7-10 Last administered on 04/26/17 20:25; Admin Dose 1 MG; Start 04/22/17 at 17:30 Metoclopramide HCl (Reglan) 10 mg Q6H PRN IV NAUSEA Last administered on 20:18; Admin Dose 10 MG; Start 04/22/17 at 21:00 Enoxaparin Sodium (Lovenox) 30 mg DAILY SC Last administered on 05/02/17 08:30 ; Admin Dose 30 MG; Start 04/23/17 at 20:30 Acetaminophen (Tylenol Supp) 650 mg Q6H PRN [place] FEVER GREATER THAN 100.6; Start 04/23/17 at 20:30 Acetaminophen (Tylenol Tab) 650 mg Q6H PRN PO PAIN AND OR ELEVATED TEMP Last administered on 05/01/17 06:44; Admin Dose 650 MG; Start 04/23/17 at 20:30 Lactobacillus Acidophilus/ Rhamnosus (Culturelle) 1 cap BID PO Last administered on 05/02/17 08:30; Admin Dose 1 CAP; Start 04/24/17 at 11:30 Diagnostic Test (Pha) (Accu-Chek) 1 ea 02 XX ; Start 04/26/17 at 02:00 Furosemide (Lasix) 20 mg DAILY IV Last administered on 05/02/17 08:32; Admin Dose 20 MG; Start 04/30/17 at 09:00 Docusate Sodium (Colace) 100 mg BID PO Last administered on 05/02/17 08:30; Admin Dose 100 MG; Start 04/30/17 at 21:00 MESHA VELASQUEZ May 02, 2017 15:03 MESHA VELASQUEZ May 02, 2017 15:03
--- NOTE | 2017-05-02 16:25 | RADRPT ---
PROCEDURE: CT abdomen with intravenous contrast. CLINICAL INDICATION: Liver abscess TECHNIQUE: Following intravenous injection with 100 cc of Omnipaque-300, spiral CT of the abdomen was performed and is reconstructed at 2.5 mm contiguous axial intervals from the dome of the diaphra gm to the iliac crest. Computer reformatted coronal and sagittal images are included. CT D I 5 millicurie Dose 187 millicurie per centimeter Individualized dose optimization technique was used for the performance of this exam. This included 1. Automated exposure control. 2. Adjustment of the mA and / or kV according to the patient's size. 3. Views of the iterative reconstruction technique. COMPARISON: CT images of the abdomen April 27 FINDINGS: Again noted are bilateral pleural effusions, right greater than left. There is right lower lobe maximino apse with atelectasis in the dependent portion of the left lower lobe. There is a right-sided surgic al chest tube with the tip in the fissure. The liver is of normal size and contour. Noted is a percutaneous drain coiled in the a slit-like col lection within the medial segment of the left lobe of the liver. This has diminished significantly i n volume when compared with the prior study. There is a second drain seen within a partially evacuat ed collection on the medial aspect of the right lobe of the liver measuring approximately 3 cm in ma ximum transverse diameter. There is a multiloculated abscess present extending from the diaphragmati c aspect of the anterior segment of the right lobe of the liver into the central portion of this lob e. These loculated collections do not seem to communicate with the other collections. No ductal dila tation is present. No gallstones are visualized. No splenic, adrenal or pancreatic abnormalities present. Kidneys enhance symmetrically. No hydronephrosis, calculus or solid mass is present. There is a 1 cm cortical cyst in the upper pole of the right kidney and a 1 cm parenchymal cyst in the mid to low er pole of the right kidney. Ureters are of normal course and caliber with no stone. No bowel mass or obstruction is seen. There is no phlegmon, ascites or pneumoperitoneum. No aneurysm is detected. There is no adenopathy. The osseous structures are intact. IMPRESSION: Near complete evacuation of previously noted abscess medial segment left lobe of the liver. Partially evacuated abscess anterior segment right lobe of the liver. Interval development multiloculated abscess superior aspect of the anterior segment right lobe of li miguel. Persistent bilateral pleural effusions, right greater than left with right lower lobe collapse and b ibasilar atelectasis. Right chest tube within the minor fissure. Multiple right renal cysts. .Roque Ballesteros MD, MD Date Time Electronically viewed and signed by .Roque Ballesteros MD, MD on 05/02/2017 16:25 .A/
[2017-05-03] VITALS (9 sets, daily range): BP systolic 107–131; BP diastolic 56–71; PULSE 85–99; RESP 18–20
[2017-05-03] MEDS: AMPICILLIN/SULB 1.5GM/NS (PMX) 50 ML IVPB SCH ×4 (00:39→17:51)
[2017-05-03] MEDS: ACCU-CHEK XX SCH (02:00)
[2017-05-03] MEDS: PANTOPRAZOLE (EC) 40 MG TAB PO SCH (05:57)
[2017-05-03] MEDS: Insulin NOVOLOG SS MILD Algorithm (SS with meals and bedtime) SC SCH ×4 (07:30→20:26)
[2017-05-03] MEDS: FUROSEMIDE 20 MG INJ IV SCH ×2 (08:26→20:27)
[2017-05-03] MEDS: DOCUSATE SODIUM 100 MG CAP PO SCH ×2 (08:28→20:26)
[2017-05-03] MEDS: ENOXAPARIN 30 MG/0.3 ML SYG SC SCH (08:28)
[2017-05-03] MEDS: LACTOBACILLUS RHAMNOSUS CAP PO SCH ×2 (08:28→20:26)
--- NOTE | 2017-05-03 11:18 | PN ---
Date/Time of Note Date/Time of Note DATE: 05/03/17 TIME: 11:18 Assessment/Plan VTE Prophylaxis VTE Prophylaxis Intervention: other Lines/Catheters IV [facility] Urinary Cath still in place: No Assessment/Plan Chief Complaint/Hosp Course - Bilateral pleural effusions right more than left, status post right thoracentesis 04/20. S/p right chest tube insertion on 04/[address] Jackson, vascular surgery. S/p right thoracentesis 04/26. - Acute respiratory failure secondary to #1, Dr. Damico is following in pulmonology consultation continue oxygen oxygen supplementation - Severe sepsis 2/2 to liver abscess, resolving. Continue antibiotics per ID. is following infection disease consultation - Liver abscess unchanged per recent CT, s/p CT guided drainage 04/15/2017, s/p CT guided percutaneous drainage of liver abscess 04/23, status post CT-guided liver abscess drainage 04/27 - Normocytic anemia requiring blood transfusion - Hx of rectal CA s/p Low anterior resection 08/29/2016 Problems: Subjective 24 Hr Interval Summary Free Text/Dictation Patient has no complaints Exam/Review of Systems Vital Signs Vitals Vital Signs Date Time Temp Pulse Resp B/P Pulse Ox O2 Delivery O2 Flow Rate FiO2 05/03/17 07:41 98.4 92 20 125/71 96 05/02/17 20:00 Nasal Cannula 2.0 Intake and Output 05/02/17 05/02/17 05/03/17 15:00 23:00 07:00 Intake Total 50 ml 800 ml 410 ml Output Total 30 ml 30 ml Balance 20 ml 770 ml 410 ml Exam Constitutional: well developed Head: atraumatic, normocephalic Neck: supple Respiratory: diminished breath sounds Cardiovascular: regular rate and rhythm Gastrointestinal: non-tender, soft Extremities: normal pulses Results Result Diagram: 05/02/17 0801 05/02/17 0801 Results 24 hrs Laboratory Tests Test 05/02/17 12:30 05/02/17 17:26 05/02/17 20:21 05/03/17 08:07 Bedside Glucose 109 97 100 112 Medications Medications Current Medications Miscellaneous Information 1 ea NOTE XX ; Start 04/13/17 at 21:30 Glucose (Glutose) 15 gm Q15M PRN PO DECREASED GLUCOSE; Start 04/13/17 at 21:30 Glucose (Glutose) 22.5 gm Q15M PRN PO DECREASED GLUCOSE; Start 04/13/17 at 21: 30 Dextrose (D50w Syringe) 25 ml Q15M PRN IV DECREASED GLUCOSE; Start 04/13/17 at 21:30 Dextrose (D50w Syringe) 50 ml Q15M PRN IV DECREASED GLUCOSE; Start 04/13/17 at 21:30 Glucagon (Glucagen) 1 mg Q15M PRN IM DECREASED GLUCOSE; Start 04/13/17 at 21:30 Glucose (Glutose) 15 gm Q15M PRN BUCCAL DECREASED GLUCOSE; Start 04/13/17 at 21 :30 Ondansetron HCl (Zofran Inj) 4 mg Q6 PRN IV NAUSEA AND/OR VOMITING Last administered on 04/26/17 20:25; Admin Dose 4 MG; Start 04/13/17 at 21:30 Guaifenesin/ Dextromethorphan (Robitussin Dm Liquid Cup) 5 ml Q4H PRN PO COUGH Last administered on 04/19/17 05:09; Admin Dose 5 ML; Start 04/15/17 at 16:30 Pantoprazole (Protonix Tab) 40 mg DAILY@06 PO Last administered on 05/03/17 05 :57; Admin Dose 40 MG; Start 04/17/17 at 06:00 Acetaminophen (Tylenol Tab) 500 mg Q6H PRN PO PAIN AND OR ELEVATED TEMP Last administered on 04/28/17 18:33; Admin Dose 500 MG; Start 04/17/17 at 03:00 Magnesium Hydroxide 30 ml 30 ml DAILY PRN PO CONSTIPATION Last administered on 04/28/17 18:33; Admin Dose 30 ML; Start 04/17/17 at 11:30 Ampicillin Sodium/ Sulbactam Sodium (Unasyn 1.5gm/NS (Pmx)) 50 ml @ 100 mls/hr Q6 IVPB Last administered on 05/03/17 05:57; Admin Dose 100 MLS/HR; Start at 18:00 Fentanyl (Duragesic 12 Mcg/Hr Patch) 1 patch Q72H TRANSDERM Last administered on 05/01/17 09:16; Admin Dose 1 PATCH; Start 04/22/17 at 05:30 Morphine Sulfate (morphine) 1 mg Q4H PRN IV SEVERE PAIN LEVEL 7-10 Last administered on 04/26/17 20:25; Admin Dose 1 MG; Start 04/22/17 at 17:30 Metoclopramide HCl (Reglan) 10 mg Q6H PRN IV NAUSEA Last administered on 20:18; Admin Dose 10 MG; Start 04/22/17 at 21:00 Enoxaparin Sodium (Lovenox) 30 mg DAILY SC Last administered on 05/03/17 08:28 ; Admin Dose 30 MG; Start 04/23/17 at 20:30 Acetaminophen (Tylenol Supp) 650 mg Q6H PRN [place] FEVER GREATER THAN 100.6; Start 04/23/17 at 20:30 Acetaminophen (Tylenol Tab) 650 mg Q6H PRN PO PAIN AND OR ELEVATED TEMP Last administered on 05/01/17 06:44; Admin Dose 650 MG; Start 04/23/17 at 20:30 Lactobacillus Acidophilus/ Rhamnosus (Culturelle) 1 cap BID PO Last administered on 05/03/17 08:28; Admin Dose 1 CAP; Start 04/24/17 at 11:30 Diagnostic Test (Pha) (Accu-Chek) 1 ea 02 XX ; Start 04/26/17 at 02:00 Furosemide (Lasix) 20 mg DAILY IV Last administered on 05/03/17 08:26; Admin Dose 20 MG; Start 04/30/17 at 09:00 Docusate Sodium (Colace) 100 mg BID PO Last administered on 05/03/17 08:28; Admin Dose 100 MG; Start 04/30/17 at 21:00 P[employer]AR F[employer]ER May 03, 2017 11:18
--- NOTE | 2017-05-03 11:55 | CONS ---
Date/Time of Note Date/Time of Note DATE: 05/03/17 TIME: 11:53 Assessment/Plan Assessment/Plan Chief Complaint/Hosp Course - severe sepsis due to pyogenic liver abscess, loculated pleural effusion - multiloculated pyogenic liver abscess s/p CT guided drainage catheter placement 04/15/2017, 04/23/2017, s/p repeat drainage 04/27/2017; cultures from gamma hemolytic strep, cultures from 04/23/2017 alpha hemolytic strep - Loculated pleural effusion likely secondary to hepatic process/Hepatic hydrothorax, R>L, s/p R thoracentesis on 04/20/2017, s/p chest tube placement on 04/22/2017 - intermittent diarrhea - normocytic anemia requiring blood transfusion - coagulopathy, improved - Transaminitis, improved - Hyponatremia - CoNS in urine culture with trivial pyuria, likely contaminant - Hx of rectal CA s/p Low anterior resection 08/29/2016 - Severe protein calorie malnutrition - allergy to vancomycin recommendations: - I recommend at least weekly CBC and BMP while Pt's on long-term antibiotic - continue amp/sulbactam (04/18/2017-); s/p linezolid and pip/tazo (04/13-2016). we recommend long-term (6 weeks at least) antibiotic administration; we recommend repeat imaging prior to antibiotic cessation to ensure resolution management d/w Pt Problems: Consultation Date/Type/Reason Admit Date/Time Apr 13, 2017 at 19:51 Initial Consult Date 04/21/17 Type of Consultation: ID Referring Provider: DARREL BURT MD 24 HR Interval Summary Constitutional: improved, no complaints Detailed Summary Eyes: no complaints ENT: no complaints Respiratory: pleuritic pain (only a tiny amount), No cough, No shortness of breath, No sputum Cardiovascular: no complaints Gastrointestinal: no complaints Genitourinary: no complaints Musculoskeletal: no complaints Skin: no complaints Neurologic: no complaints Exam/Review of Systems Vital Signs Vitals Vital Signs Date Time Temp Pulse Resp B/P Pulse Ox O2 Delivery O2 Flow Rate FiO2 05/03/17 07:41 98.4 92 20 125/71 96 05/02/17 20:00 Nasal Cannula 2.0 Intake and Output 05/02/17 05/02/17 05/03/17 15:00 23:00 07:00 Intake Total 50 ml 800 ml 410 ml Output Total 30 ml 30 ml Balance 20 ml 770 ml 410 ml Exam Constitutional: frail Psych: nl mood/affect, no complaints Head: atraumatic, normocephalic Eyes: nl conjunctiva, nl lids, nl sclera ENMT: nl external ears & nose Respiratory: diminished breath sounds, other (chest tube) Cardiovascular: nl pulses, regular rate and rhythm Gastrointestinal: non-tender, other (+external drainage catheters x2), soft Musculoskeletal: nl extremities to inspection Extremities: No edema 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: ORDNANCE KEEPER II-XII intact Skin: nl turgor Results Result Diagram: 05/02/17 0801 05/02/17 0801 Results 24 hrs Laboratory Tests Test 05/02/17 12:30 05/02/17 17:26 05/02/17 20:21 05/03/17 08:07 Bedside Glucose 109 97 100 112 Medications Medications Current Medications Miscellaneous Information 1 ea NOTE XX ; Start 04/13/17 at 21:30 Glucose (Glutose) 15 gm Q15M PRN PO DECREASED GLUCOSE; Start 04/13/17 at 21:30 Glucose (Glutose) 22.5 gm Q15M PRN PO DECREASED GLUCOSE; Start 04/13/17 at 21: 30 Dextrose (D50w Syringe) 25 ml Q15M PRN IV DECREASED GLUCOSE; Start 04/13/17 at 21:30 Dextrose (D50w Syringe) 50 ml Q15M PRN IV DECREASED GLUCOSE; Start 04/13/17 at 21:30 Glucagon (Glucagen) 1 mg Q15M PRN IM DECREASED GLUCOSE; Start 04/13/17 at 21:30 Glucose (Glutose) 15 gm Q15M PRN BUCCAL DECREASED GLUCOSE; Start 04/13/17 at 21 :30 Ondansetron HCl (Zofran Inj) 4 mg Q6 PRN IV NAUSEA AND/OR VOMITING Last administered on 04/26/17 20:25; Admin Dose 4 MG; Start 04/13/17 at 21:30 Guaifenesin/ Dextromethorphan (Robitussin Dm Liquid Cup) 5 ml Q4H PRN PO COUGH Last administered on 04/19/17 05:09; Admin Dose 5 ML; Start 04/15/17 at 16:30 Pantoprazole (Protonix Tab) 40 mg DAILY@06 PO Last administered on 05/03/17 05 :57; Admin Dose 40 MG; Start 04/17/17 at 06:00 Acetaminophen (Tylenol Tab) 500 mg Q6H PRN PO PAIN AND OR ELEVATED TEMP Last administered on 04/28/17 18:33; Admin Dose 500 MG; Start 04/17/17 at 03:00 Magnesium Hydroxide 30 ml 30 ml DAILY PRN PO CONSTIPATION Last administered on 04/28/17 18:33; Admin Dose 30 ML; Start 04/17/17 at 11:30 Ampicillin Sodium/ Sulbactam Sodium (Unasyn 1.5gm/NS (Pmx)) 50 ml @ 100 mls/hr Q6 IVPB Last administered on 05/03/17 05:57; Admin Dose 100 MLS/HR; Start at 18:00 Fentanyl (Duragesic 12 Mcg/Hr Patch) 1 patch Q72H TRANSDERM Last administered on 05/01/17 09:16; Admin Dose 1 PATCH; Start 04/22/17 at 05:30 Morphine Sulfate (morphine) 1 mg Q4H PRN IV SEVERE PAIN LEVEL 7-10 Last administered on 04/26/17 20:25; Admin Dose 1 MG; Start 04/22/17 at 17:30 Metoclopramide HCl (Reglan) 10 mg Q6H PRN IV NAUSEA Last administered on 20:18; Admin Dose 10 MG; Start 04/22/17 at 21:00 Enoxaparin Sodium (Lovenox) 30 mg DAILY SC Last administered on 05/03/17 08:28 ; Admin Dose 30 MG; Start 04/23/17 at 20:30 Acetaminophen (Tylenol Supp) 650 mg Q6H PRN [place] FEVER GREATER THAN 100.6; Start 04/23/17 at 20:30 Acetaminophen (Tylenol Tab) 650 mg Q6H PRN PO PAIN AND OR ELEVATED TEMP Last administered on 05/01/17 06:44; Admin Dose 650 MG; Start 04/23/17 at 20:30 Lactobacillus Acidophilus/ Rhamnosus (Culturelle) 1 cap BID PO Last administered on 05/03/17 08:28; Admin Dose 1 CAP; Start 04/24/17 at 11:30 Diagnostic Test (Pha) (Accu-Chek) 1 ea 02 XX ; Start 04/26/17 at 02:00 Furosemide (Lasix) 20 mg DAILY IV Last administered on 05/03/17 08:26; Admin Dose 20 MG; Start 04/30/17 at 09:00 Docusate Sodium (Colace) 100 mg BID PO Last administered on 05/03/17 08:28; Admin Dose 100 MG; Start 04/30/17 at 21:00 AARON ANSARI M.D. May 03, 2017 11:55
--- NOTE | 2017-05-03 13:09 | CONS ---
Date/Time of Note Date/Time of Note DATE: 05/03/17 TIME: 13:07 Assessment/Plan Assessment/Plan Additional Assessment/Plan 1. Acute hyponatremia 2/2 Hypovolemic hyponatremia 2. sepsis due to liver abscess 3. Hepatic abscess on CT scan s/p CT guided drainage on 04/15/17 and 04/23/17. -Repeat CT abdomen - Interval development multiloculated abscess superior aspect of the anterior segment right lobe of liver. - Persistent bilateral pleural effusions 4. Acute transaminitis 5. h/o Colon CA s/p previous Surgery 6. Hypokalemia - resolved 7. Hyponatremia - 133 8. Multiloculated right pleural effusion s/p Thoracentesis x 2, on IV lasix . VATS pending Plan : Na 133 Cr normal, Continue lasix 20mg IV daily Cl. difficle ID recommended 6 weeks of Abx Monitor electroltytes and replace as needed. Chest tube in place in RLL - will talk pulmonary to see if pt needs pigtail catheter for right pleural effusion BP stable will follow up Plan of care shar Barroso Consultation Date/Type/Reason Admit Date/Time Apr 13, 2017 at 19:51 Initial Consult Date 04/15/17 Type of Consultation: ID Referring Provider: DARREL BURT MD 24 HR Interval Summary Free Text/Dictation resting, feels little better today, voids ok, dw staff Constitutional: requiring IVF Detailed Summary Respiratory: shortness of breath Cardiovascular: no complaints Gastrointestinal: pain (pain at drain sites-) Genitourinary: no complaints Musculoskeletal: no complaints Exam/Review of Systems Vital Signs Vitals Vital Signs Date Time Temp Pulse Resp B/P Pulse Ox O2 Delivery O2 Flow Rate FiO2 05/03/17 12:02 98.3 90 20 121/69 98 05/02/17 20:00 Nasal Cannula 2.0 Intake and Output 05/02/17 05/02/17 05/03/17 15:00 23:00 07:00 Intake Total 50 ml 800 ml 410 ml Output Total 30 ml 30 ml Balance 20 ml 770 ml 410 ml Exam Constitutional: alert, frail, oriented Cardiovascular: nl pulses, regular rate and rhythm Gastrointestinal: other, soft Musculoskeletal: nl extremities to inspection Extremities: normal pulses 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: 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, nl speech Results Result Diagram: 05/02/17 0805/02/17 0801 Results 24 hrs Laboratory Tests Test 05/02/17 17:26 05/02/17 20:21 05/03/17 08:07 05/03/17 12:09 Bedside Glucose 97 100 112 103 Medications Medications Current Medications Miscellaneous Information 1 ea NOTE XX ; Start 04/13/17 at 21:30 Glucose (Glutose) 15 gm Q15M PRN PO DECREASED GLUCOSE; Start 04/13/17 at 21:30 Glucose (Glutose) 22.5 gm Q15M PRN PO DECREASED GLUCOSE; Start 04/13/17 at 21: 30 Dextrose (D50w Syringe) 25 ml Q15M PRN IV DECREASED GLUCOSE; Start 04/13/17 at 21:30 Dextrose (D50w Syringe) 50 ml Q15M PRN IV DECREASED GLUCOSE; Start 04/13/17 at 21:30 Glucagon (Glucagen) 1 mg Q15M PRN IM DECREASED GLUCOSE; Start 04/13/17 at 21:30 Glucose (Glutose) 15 gm Q15M PRN BUCCAL DECREASED GLUCOSE; Start 04/13/17 at 21 :30 Ondansetron HCl (Zofran Inj) 4 mg Q6 PRN IV NAUSEA AND/OR VOMITING Last administered on 04/26/17 20:25; Admin Dose 4 MG; Start 04/13/17 at 21:30 Guaifenesin/ Dextromethorphan (Robitussin Dm Liquid Cup) 5 ml Q4H PRN PO COUGH Last administered on 04/19/17 05:09; Admin Dose 5 ML; Start 04/15/17 at 16:30 Pantoprazole (Protonix Tab) 40 mg DAILY@06 PO Last administered on 05/03/17 05 :57; Admin Dose 40 MG; Start 04/17/17 at 06:00 Acetaminophen (Tylenol Tab) 500 mg Q6H PRN PO PAIN AND OR ELEVATED TEMP Last administered on 04/28/17 18:33; Admin Dose 500 MG; Start 04/17/17 at 03:00 Magnesium Hydroxide 30 ml 30 ml DAILY PRN PO CONSTIPATION Last administered on 04/28/17 18:33; Admin Dose 30 ML; Start 04/17/17 at 11:30 Ampicillin Sodium/ Sulbactam Sodium (Unasyn 1.5gm/NS (Pmx)) 50 ml @ 100 mls/hr Q6 IVPB Last administered on 05/03/17 05:57; Admin Dose 100 MLS/HR; Start at 18:00 Fentanyl (Duragesic 12 Mcg/Hr Patch) 1 patch Q72H TRANSDERM Last administered on 05/01/17 09:16; Admin Dose 1 PATCH; Start 04/22/17 at 05:30 Morphine Sulfate (morphine) 1 mg Q4H PRN IV SEVERE PAIN LEVEL 7-10 Last administered on 04/26/17 20:25; Admin Dose 1 MG; Start 04/22/17 at 17:30 Metoclopramide HCl (Reglan) 10 mg Q6H PRN IV NAUSEA Last administered on 20:18; Admin Dose 10 MG; Start 04/22/17 at 21:00 Enoxaparin Sodium (Lovenox) 30 mg DAILY SC Last administered on 05/03/17 08:28 ; Admin Dose 30 MG; Start 04/23/17 at 20:30 Acetaminophen (Tylenol Supp) 650 mg Q6H PRN [place] FEVER GREATER THAN 100.6; Start 04/23/17 at 20:30 Acetaminophen (Tylenol Tab) 650 mg Q6H PRN PO PAIN AND OR ELEVATED TEMP Last administered on 05/01/17 06:44; Admin Dose 650 MG; Start 04/23/17 at 20:30 Lactobacillus Acidophilus/ Rhamnosus (Culturelle) 1 cap BID PO Last administered on 05/03/17 08:28; Admin Dose 1 CAP; Start 04/24/17 at 11:30 Diagnostic Test (Pha) (Accu-Chek) 1 ea 02 XX ; Start 04/26/17 at 02:00 Furosemide (Lasix) 20 mg DAILY IV Last administered on 05/03/17 08:26; Admin Dose 20 MG; Start 04/30/17 at 09:00 Docusate Sodium (Colace) 100 mg BID PO Last administered on 05/03/17 08:28; Admin Dose 100 MG; Start 04/30/17 at 21:00 MESHA VELASQUEZ May 03, 2017 13:09
--- NOTE | 2017-05-03 14:02 | PN ---
DATE: 05/03/2017 SUBJECTIVE DATA: No complaint. Minimal shortness of breath. No abdominal pain. Is tolerating a regular diet. Has had a bowel movement yesterday. OBJECTIVE: GENERAL: Awake, alert, and oriented x3. VITAL SIGNS: Temperature 98.4, heart rate 92, respirations 20, blood pressure 125/71, saturation 96 percent room air. HEART: Regular. LUNGS: Decreased breathing sound on the right side and slightly on the left side. ABDOMEN: Soft, not distended. Bowel sounds normal. The pigtail drains are draining serosanguineous fluid. The chest tube is not draining anything. LABORATORY AND DIAGNOSTIC DATA: No labs done today. Yesterday, sodium, potassium, BUN, creatinine normal. Alk phos 149, slightly elevated. Albumin 2.6. Yesterday, CT scan of the abdomen with IV contrast was performed per_ radiologist to evaluate effectiveness of the pigtail device, report is as follows, impression: 1. Nearly complete evacuation of previously noted abscess in the medial segment of left lobe of the liver. 2. Partially evacuated abscess anterior segment right lower lobe of the liver. 3. Interval development of multiloculated abscess superior aspect of the anterior segment right lobe of the liver. 4. Persistent bilateral pleural effusions, right greater than left, with right lower lobe collapse and bibasilar atelectasis. Right chest tube within the minor fissure. 5. Multiple right renal cysts. ASSESSMENT AND PLAN: Patient with multiloculated liver abscesses presented with sepsis, percutaneous drainage of liver abscess was performed 3 times by placement of individual pigtail drains, the first one worked for 7-8 days, then was pulled out. The second one was placed about 2 weeks ago and has drained the abscess and has caused almost complete evacuation. The third one was placed 6 days ago, but no pus is draining through the tubes. By very recent chest CT scan which was done yesterday, appears that there is at least one multiloculated abscess superior aspect of the anterior segment of the right lobe of the liver and this one should be attempted to be drained percutaneously by pigtail drain so I am going to request it. Hopefully, Dr. Decker or anybody in radiology reviewing the procedure will do it on Thursday. Dictated By: Osmani Ceballos MD /rachel/lisa /Document#: [id number] MTDD
--- NOTE | 2017-05-03 14:35 | CONS ---
Date/Time of Note Date/Time of Note DATE: 05/03/17 TIME: 14:32 Assessment/Plan Assessment/Plan Chief Complaint/Hosp Course IMP: 1.Hypotension-now improved/stable 2.abnl ecg-negative trop x 3/NL EF by echo. NO CP 3.Liver abscess s/p CT guided drainage 4.H/O lung ca s/p resection with lung nodules by CT? 5.Lung nodules 6. Hyponatremia 7. Effusion s/p CT with ongoing effusion Recc: -Tele -Continue abx's -F/U cx data -Follow BP closely -pain control -Continue lasix daily but will likely change to PO tomorrow, follow volume status/NA closely -Follow CT output with possible need for vats/decortication Problems: Consultation Date/Type/Reason Admit Date/Time Apr 13, 2017 at 19:51 Initial Consult Date 04/13/17 Type of Consultation: cardiology Reason for Consultation CHF Referring Provider: DARREL BURT MD Exam/Review of Systems Vital Signs Vitals Vital Signs Date Time Temp Pulse Resp B/P Pulse Ox O2 Delivery O2 Flow Rate FiO2 05/03/17 12:02 98.3 90 20 121/69 98 05/02/17 20:00 Nasal Cannula 2.0 Intake and Output 05/02/17 05/02/17 05/03/17 15:00 23:00 07:00 Intake Total 50 ml 800 ml 410 ml Output Total 30 ml 30 ml Balance 20 ml 770 ml 410 ml Exam Review of Systems: CONSTITUTIONAL: No fevers, chills. PULMONARY: No sob CARDIOVASCULAR: No chest pain/palpitations GASTROINTESTINAL: No nausea/vomiting. GENITOURINARY: No hematuria/dysuria. MUSCULOSKELETAL: No myagias/arthalgias. PSYCHIATRIC: The patient denies depression. NEUROLOGIC: No weakness Constitutional: other (sleeping) Psych: no complaints Head: normocephalic ENMT: mucosa pink and moist Neck: jvd, supple Respiratory: diminished breath sounds Cardiovascular: other (R sided CT), regular rate and rhythm Gastrointestinal: non-tender, soft Musculoskeletal: muscle tone Extremities: edema (none) 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: other Results Result Diagram: 05/02/17 0801 05/02/17 0801 Results 24 hrs Laboratory Tests Test 05/02/17 17:26 05/02/17 20:21 05/03/17 08:07 05/03/17 12:09 Bedside Glucose 97 100 112 103 Medications Medications Current Medications Miscellaneous Information 1 ea NOTE XX ; Start 04/13/17 at 21:30 Glucose (Glutose) 15 gm Q15M PRN PO DECREASED GLUCOSE; Start 04/13/17 at 21:30 Glucose (Glutose) 22.5 gm Q15M PRN PO DECREASED GLUCOSE; Start 04/13/17 at 21: 30 Dextrose (D50w Syringe) 25 ml Q15M PRN IV DECREASED GLUCOSE; Start 04/13/17 at 21:30 Dextrose (D50w Syringe) 50 ml Q15M PRN IV DECREASED GLUCOSE; Start 04/13/17 at 21:30 Glucagon (Glucagen) 1 mg Q15M PRN IM DECREASED GLUCOSE; Start 04/13/17 at 21:30 Glucose (Glutose) 15 gm Q15M PRN BUCCAL DECREASED GLUCOSE; Start 04/13/17 at 21 :30 Ondansetron HCl (Zofran Inj) 4 mg Q6 PRN IV NAUSEA AND/OR VOMITING Last administered on 04/26/17 20:25; Admin Dose 4 MG; Start 04/13/17 at 21:30 Guaifenesin/ Dextromethorphan (Robitussin Dm Liquid Cup) 5 ml Q4H PRN PO COUGH Last administered on 04/19/17 05:09; Admin Dose 5 ML; Start 04/15/17 at 16:30 Pantoprazole (Protonix Tab) 40 mg DAILY@06 PO Last administered on 05/03/17 05 :57; Admin Dose 40 MG; Start 04/17/17 at 06:00 Acetaminophen (Tylenol Tab) 500 mg Q6H PRN PO PAIN AND OR ELEVATED TEMP Last administered on 04/28/17 18:33; Admin Dose 500 MG; Start 04/17/17 at 03:00 Magnesium Hydroxide 30 ml 30 ml DAILY PRN PO CONSTIPATION Last administered on 04/28/17 18:33; Admin Dose 30 ML; Start 04/17/17 at 11:30 Ampicillin Sodium/ Sulbactam Sodium (Unasyn 1.5gm/NS (Pmx)) 50 ml @ 100 mls/hr Q6 IVPB Last administered on 05/03/17 13:30; Admin Dose 100 MLS/HR; Start at 18:00 Fentanyl (Duragesic 12 Mcg/Hr Patch) 1 patch Q72H TRANSDERM Last administered on 05/01/17 09:16; Admin Dose 1 PATCH; Start 04/22/17 at 05:30 Morphine Sulfate (morphine) 1 mg Q4H PRN IV SEVERE PAIN LEVEL 7-10 Last administered on 04/26/17 20:25; Admin Dose 1 MG; Start 04/22/17 at 17:30 Metoclopramide HCl (Reglan) 10 mg Q6H PRN IV NAUSEA Last administered on 20:18; Admin Dose 10 MG; Start 04/22/17 at 21:00 Enoxaparin Sodium (Lovenox) 30 mg DAILY SC Last administered on 05/03/17 08:28 ; Admin Dose 30 MG; Start 04/23/17 at 20:30 Acetaminophen (Tylenol Supp) 650 mg Q6H PRN [place] FEVER GREATER THAN 100.6; Start 04/23/17 at 20:30 Acetaminophen (Tylenol Tab) 650 mg Q6H PRN PO PAIN AND OR ELEVATED TEMP Last administered on 05/01/17 06:44; Admin Dose 650 MG; Start 04/23/17 at 20:30 Lactobacillus Acidophilus/ Rhamnosus (Culturelle) 1 cap BID PO Last administered on 05/03/17 08:28; Admin Dose 1 CAP; Start 04/24/17 at 11:30 Diagnostic Test (Pha) (Accu-Chek) 1 ea 02 XX ; Start 04/26/17 at 02:00 Furosemide (Lasix) 20 mg DAILY IV Last administered on 05/03/17 08:26; Admin Dose 20 MG; Start 04/30/17 at 09:00 Docusate Sodium (Colace) 100 mg BID PO Last administered on 05/03/17 08:28; Admin Dose 100 MG; Start 04/30/17 at 21:00 LILIANA BARKSDALE May 03, 2017 14:35
[2017-05-04] VITALS (12 sets, daily range): BP systolic 104–120; BP diastolic 60–72; PULSE 79–100; RESP 18–20
[2017-05-04] MEDS: AMPICILLIN/SULB 1.5GM/NS (PMX) 50 ML IVPB SCH ×4 (00:21→17:38)
[2017-05-04] MEDS: ACCU-CHEK XX SCH (02:00)
[2017-05-04] MEDS: ACETAMINOPHEN 325 MG TAB PO PRN (03:22)
[2017-05-04] MEDS: PANTOPRAZOLE (EC) 40 MG TAB PO SCH (05:41)
[2017-05-04] MEDS: Insulin NOVOLOG SS MILD Algorithm (SS with meals and bedtime) SC SCH ×4 (07:30→20:26)
[2017-05-04 07:53] LABS: BASOPHILS % 0.5 % (0.0-2.0); EOSINOPHILS # 0.2 10^3/ul (0.0-0.5); EOSINOPHILS % 2.1 % (0.0-7.0); HEMATOCRIT 26.8 % (37.0-47.0); HEMOGLOBIN 8.7 g/dl (12.0-16.0); LYMPHOCYTES % 23.9 % (15.0-51.0); MEAN CORPUSCULAR HEMOGLOBIN 29.9 pg (29.0-33.0); MEAN CORPUSCULAR HGB CONC 32.5 g/dl (32.0-37.0); MEAN CORPUSCULAR VOLUME 92.1 fl (82.0-101.0); MEAN PLATELET VOLUME 8.2 fl (7.4-10.4); MONOCYTE # 1.1 10^3/ul (0.3-0.9); MONOCYTES % 13.4 % (0.0-11.0); PLATELET COUNT 542 10^3/UL (140-415); RED BLOOD COUNT 2.91 10^6/ul (4.20-5.40); RED CELL DISTRIBUTION WIDTH 13.9 % (11.5-14.5); WHITE BLOOD COUNT 8.5 10^3/ul (4.8-10.8)
[2017-05-04] MEDS: ENOXAPARIN 30 MG/0.3 ML SYG SC SCH (08:14)
[2017-05-04] MEDS: FENTAnyl PATCH 12 MCG/HR TRANSDERM SCH (08:14)
[2017-05-04] MEDS: DOCUSATE SODIUM 100 MG CAP PO SCH ×2 (08:15→20:16)
[2017-05-04] MEDS: LACTOBACILLUS RHAMNOSUS CAP PO SCH ×2 (08:15→20:16)
[2017-05-04 08:19] LABS: CREATININE 0.38 mg/dl (0.44-1.00)
[2017-05-04] MEDS: FUROSEMIDE 20 MG INJ IV SCH ×3 (08:25→20:17)
--- NOTE | 2017-05-04 10:00 | CONS ---
Date/Time of Note Date/Time of Note DATE: 05/04/17 TIME: 09:57 Assessment/Plan Assessment/Plan Chief Complaint/Hosp Course Problems: Additional Assessment/Plan 1. Acute hyponatremia 2/2 Hypovolemic hyponatremia 2. sepsis due to liver abscess 3. Hepatic abscess oN CT scan s/p CT guided drainage on 04/15/17 and 04/23/17 4. Acute transaminitis 5. h/o Colon CA s/p previous Surgery 6. Hypokalemia 7. Multiloculated right pleural effusion s/p Thoracentesis x 2, on IV lasix Plan : drainage outptut 60cc KCL 40mEQ IV x1 now then continue KCl 20mEQ PO BID, pt is on clear liquid diet tolerating so far pulmonary and G surgery has been following on patient. will follow up Consultation Date/Type/Reason Admit Date/Time Apr 13, 2017 at 19:51 Initial Consult Date 04/13/17 Type of Consultation: NEPHROLOGY Referring Provider: DARREL BURT MD 24 HR Interval Summary Free Text/Dictation K low, Cr normal, good urine output, pt alert, awake Exam/Review of Systems Vital Signs Vitals Vital Signs Date Time Temp Pulse Resp B/P Pulse Ox O2 Delivery O2 Flow Rate FiO2 05/04/17 08:30 79 05/04/17 07:52 98.2 20 104/60 95 05/04/17 07:39 2.0 05/03/17 20:30 Nasal Cannula Intake and Output 05/03/17 05/03/17 05/04/17 15:00 23:00 07:00 Intake Total 500 ml Balance 500 ml Exam Constitutional: alert, frail, oriented Respiratory: diminished breath sounds, other (chest tube) Cardiovascular: nl pulses, regular rate and rhythm Gastrointestinal: other (external draiange catheters) Musculoskeletal: nl extremities to inspection Extremities: No edema 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: PRIVACY SPECIALIST II-XII intact, 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 Results Result Diagram: 05/04/1771605/04/17716 Results 24 hrs Laboratory Tests Test 05/03/17 12:09 05/03/17 17:42 05/03/17 20:20 05/04/17 07:17 Bedside Glucose 103 144 98 White Blood Count 8.5 Red Blood Count 2.91 L Hemoglobin 8.7 L Hematocrit 26.8 L Mean Corpuscular Volume 92.1 Mean Corpuscular Hemoglobin 29.9 Mean Corpuscular Hemoglobin Concent 32.5 Red Cell Distribution Width 13.9 Platelet Count 542 H Mean Platelet Volume 8.2 Neutrophils % 59.0 Lymphocytes % 23.9 Monocytes % 13.4 H Eosinophils % 2.1 Basophils % 0.5 Nucleated Red Blood Cells % 0.0 Neutrophils # 5.0 Lymphocytes # 2.0 Monocytes # 1.1 H Eosinophils # 0.2 Basophils # 0.0 Nucleated Red Blood Cells # 0.0 Sodium Level 134 L Potassium Level 3.0 L Chloride Level 95 L Carbon Dioxide Level 34 H Anion Gap 8 Blood Urea Nitrogen 7 Creatinine 0.38 L Glucose Level 89 Calcium Level 9.0 Test 05/04/17 08:10 Bedside Glucose 80 Medications Medications Current Medications Miscellaneous Information 1 ea NOTE XX ; Start 04/13/17 at 21:30 Glucose (Glutose) 15 gm Q15M PRN PO DECREASED GLUCOSE; Start 04/13/17 at 21:30 Glucose (Glutose) 22.5 gm Q15M PRN PO DECREASED GLUCOSE; Start 04/13/17 at 21: 30 Dextrose (D50w Syringe) 25 ml Q15M PRN IV DECREASED GLUCOSE; Start 04/13/17 at 21:30 Dextrose (D50w Syringe) 50 ml Q15M PRN IV DECREASED GLUCOSE; Start 04/13/17 at 21:30 Glucagon (Glucagen) 1 mg Q15M PRN IM DECREASED GLUCOSE; Start 04/13/17 at 21:30 Glucose (Glutose) 15 gm Q15M PRN BUCCAL DECREASED GLUCOSE; Start 04/13/17 at 21 :30 Ondansetron HCl (Zofran Inj) 4 mg Q6 PRN IV NAUSEA AND/OR VOMITING Last administered on 04/26/17 20:25; Admin Dose 4 MG; Start 04/13/17 at 21:30 Guaifenesin/ Dextromethorphan (Robitussin Dm Liquid Cup) 5 ml Q4H PRN PO COUGH Last administered on 04/19/17 05:09; Admin Dose 5 ML; Start 04/15/17 at 16:30 Pantoprazole (Protonix Tab) 40 mg DAILY@06 PO Last administered on 05/04/17 05 :41; Admin Dose 40 MG; Start 04/17/17 at 06:00 Acetaminophen (Tylenol Tab) 500 mg Q6H PRN PO PAIN AND OR ELEVATED TEMP Last administered on 04/28/17 18:33; Admin Dose 500 MG; Start 04/17/17 at 03:00 Magnesium Hydroxide 30 ml 30 ml DAILY PRN PO CONSTIPATION Last administered on 04/28/17 18:33; Admin Dose 30 ML; Start 04/17/17 at 11:30 Ampicillin Sodium/ Sulbactam Sodium (Unasyn 1.5gm/NS (Pmx)) 50 ml @ 100 mls/hr Q6 IVPB Last administered on 05/04/17 05:41; Admin Dose 100 MLS/HR; Start at 18:00 Fentanyl (Duragesic 12 Mcg/Hr Patch) 1 patch Q72H TRANSDERM Last administered on 05/04/17 08:14; Admin Dose 1 PATCH; Start 04/22/17 at 05:30 Morphine Sulfate (morphine) 1 mg Q4H PRN IV SEVERE PAIN LEVEL 7-10 Last administered on 04/26/17 20:25; Admin Dose 1 MG; Start 04/22/17 at 17:30 Metoclopramide HCl (Reglan) 10 mg Q6H PRN IV NAUSEA Last administered on 20:18; Admin Dose 10 MG; Start 04/22/17 at 21:00 Enoxaparin Sodium (Lovenox) 30 mg DAILY SC Last administered on 05/04/17 08:14 ; Admin Dose 30 MG; Start 04/23/17 at 20:30 Acetaminophen (Tylenol Supp) 650 mg Q6H PRN [place] FEVER GREATER THAN 100.6; Start 04/23/17 at 20:30 Acetaminophen (Tylenol Tab) 650 mg Q6H PRN PO PAIN AND OR ELEVATED TEMP Last administered on 05/04/17 03:22; Admin Dose 650 MG; Start 04/23/17 at 20:30 Lactobacillus Acidophilus/ Rhamnosus (Culturelle) 1 cap BID PO Last administered on 05/04/17 08:15; Admin Dose 1 CAP; Start 04/24/17 at 11:30 Diagnostic Test (Pha) (Accu-Chek) 1 ea 02 XX ; Start 04/26/17 at 02:00 Docusate Sodium (Colace) 100 mg BID PO Last administered on 05/04/17 08:15; Admin Dose 100 MG; Start 04/30/17 at 21:00 Furosemide (Lasix) 20 mg BID IV Last administered on 05/04/17 08:42; Admin Dose 20 MG; Start 05/03/17 at 21:00 NGOC GARZA MD May 04, 2017 10:00
--- NOTE | 2017-05-04 11:24 | CONS ---
Date/Time of Note Date/Time of Note DATE: 05/04/17 TIME: 10:38 Assessment/Plan Assessment/Plan Chief Complaint/Hosp Course - severe sepsis due to pyogenic liver abscess, loculated pleural effusion - multiloculated pyogenic liver abscess s/p CT guided drainage catheter placement 04/15/2017, 04/23/2017, s/p repeat drainage 04/27/2017; cultures from gamma hemolytic strep, cultures from 04/23/2017 alpha hemolytic strep - loculated pleural effusion likely secondary to hepatic process/Hepatic hydrothorax, R>L, s/p R thoracentesis on 04/20/2017, s/p chest tube placement on 04/22/2017 - intermittent diarrhea - normocytic anemia requiring blood transfusion - coagulopathy, improved - Transaminitis, improved - Hyponatremia - CoNS in urine culture with trivial pyuria, likely contaminant - Hx of rectal CA s/p Low anterior resection 08/29/2016 - Severe protein calorie malnutrition - allergy to vancomycin recommendations: - I recommend at least weekly CBC and BMP while Pt's on long-term antibiotic - continue amp/sulbactam (04/18/2017-); s/p linezolid and pip/tazo (04/13-2016). we recommend long-term (6 weeks at least) antibiotic administration; we recommend repeat imaging prior to antibiotic cessation to ensure resolution management d/w Pt Problems: Consultation Date/Type/Reason Admit Date/Time Apr 13, 2017 at 19:51 Initial Consult Date 04/21/17 Type of Consultation: ID Referring Provider: DARREL BURT MD 24 HR Interval Summary Constitutional: no complaints Detailed Summary Eyes: no complaints ENT: no complaints Respiratory: no complaints, No pleuritic pain, No shortness of breath Cardiovascular: no complaints Gastrointestinal: no complaints Genitourinary: no complaints Musculoskeletal: no complaints Skin: no complaints Exam/Review of Systems Vital Signs Vitals Vital Signs Date Time Temp Pulse Resp B/P Pulse Ox O2 Delivery O2 Flow Rate FiO2 05/04/17 08:30 79 05/04/17 08:00 Nasal Cannula 05/04/17 07:52 98.2 20 104/60 95 05/04/17 07:39 2.0 Intake and Output 05/03/17 05/03/17 05/04/17 15:00 23:00 07:00 Intake Total 500 ml Balance 500 ml Exam Constitutional: frail Psych: nl mood/affect, no complaints Head: atraumatic, normocephalic Eyes: nl conjunctiva, nl lids ENMT: nl external ears & nose, nl nasal mucosa & septum Respiratory: diminished breath sounds, other (chest tube) Cardiovascular: nl pulses, regular rate and rhythm Gastrointestinal: non-tender, soft Musculoskeletal: nl extremities to inspection Extremities: No edema 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: [employer] HELPER II-XII intact, 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, nl speech Results Result Diagram: 05/04/1771605/04/17716 Results 24 hrs Laboratory Tests Test 05/03/17 12:09 05/03/17 17:42 05/03/17 20:20 05/04/17 07:17 Bedside Glucose 103 144 98 White Blood Count 8.5 Red Blood Count 2.91 L Hemoglobin 8.7 L Hematocrit 26.8 L Mean Corpuscular Volume 92.1 Mean Corpuscular Hemoglobin 29.9 Mean Corpuscular Hemoglobin Concent 32.5 Red Cell Distribution Width 13.9 Platelet Count 542 H Mean Platelet Volume 8.2 Neutrophils % 59.0 Lymphocytes % 23.9 Monocytes % 13.4 H Eosinophils % 2.1 Basophils % 0.5 Nucleated Red Blood Cells % 0.0 Neutrophils # 5.0 Lymphocytes # 2.0 Monocytes # 1.1 H Eosinophils # 0.2 Basophils # 0.0 Nucleated Red Blood Cells # 0.0 Sodium Level 134 L Potassium Level 3.0 L Chloride Level 95 L Carbon Dioxide Level 34 H Anion Gap 8 Blood Urea Nitrogen 7 Creatinine 0.38 L Glucose Level 89 Calcium Level 9.0 Test 05/04/17 08:10 Bedside Glucose 80 Medications Medications Current Medications Miscellaneous Information 1 ea NOTE XX ; Start 04/13/17 at 21:30 Glucose (Glutose) 15 gm Q15M PRN PO DECREASED GLUCOSE; Start 04/13/17 at 21:30 Glucose (Glutose) 22.5 gm Q15M PRN PO DECREASED GLUCOSE; Start 04/13/17 at 21: 30 Dextrose (D50w Syringe) 25 ml Q15M PRN IV DECREASED GLUCOSE; Start 04/13/17 at 21:30 Dextrose (D50w Syringe) 50 ml Q15M PRN IV DECREASED GLUCOSE; Start 04/13/17 at 21:30 Glucagon (Glucagen) 1 mg Q15M PRN IM DECREASED GLUCOSE; Start 04/13/17 at 21:30 Glucose (Glutose) 15 gm Q15M PRN BUCCAL DECREASED GLUCOSE; Start 04/13/17 at 21 :30 Ondansetron HCl (Zofran Inj) 4 mg Q6 PRN IV NAUSEA AND/OR VOMITING Last administered on 04/26/17 20:25; Admin Dose 4 MG; Start 04/13/17 at 21:30 Guaifenesin/ Dextromethorphan (Robitussin Dm Liquid Cup) 5 ml Q4H PRN PO COUGH Last administered on 04/19/17 05:09; Admin Dose 5 ML; Start 04/15/17 at 16:30 Pantoprazole (Protonix Tab) 40 mg DAILY@06 PO Last administered on 05/04/17 05 :41; Admin Dose 40 MG; Start 04/17/17 at 06:00 Acetaminophen (Tylenol Tab) 500 mg Q6H PRN PO PAIN AND OR ELEVATED TEMP Last administered on 04/28/17 18:33; Admin Dose 500 MG; Start 04/17/17 at 03:00 Magnesium Hydroxide 30 ml 30 ml DAILY PRN PO CONSTIPATION Last administered on 04/28/17 18:33; Admin Dose 30 ML; Start 04/17/17 at 11:30 Ampicillin Sodium/ Sulbactam Sodium (Unasyn 1.5gm/NS (Pmx)) 50 ml @ 100 mls/hr Q6 IVPB Last administered on 05/04/17 05:41; Admin Dose 100 MLS/HR; Start at 18:00 Fentanyl (Duragesic 12 Mcg/Hr Patch) 1 patch Q72H TRANSDERM Last administered on 05/04/17 08:14; Admin Dose 1 PATCH; Start 04/22/17 at 05:30 Morphine Sulfate (morphine) 1 mg Q4H PRN IV SEVERE PAIN LEVEL 7-10 Last administered on 04/26/17 20:25; Admin Dose 1 MG; Start 04/22/17 at 17:30 Metoclopramide HCl (Reglan) 10 mg Q6H PRN IV NAUSEA Last administered on 20:18; Admin Dose 10 MG; Start 04/22/17 at 21:00 Enoxaparin Sodium (Lovenox) 30 mg DAILY SC Last administered on 05/04/17 08:14 ; Admin Dose 30 MG; Start 04/23/17 at 20:30 Acetaminophen (Tylenol Supp) 650 mg Q6H PRN [place] FEVER GREATER THAN 100.6; Start 04/23/17 at 20:30 Acetaminophen (Tylenol Tab) 650 mg Q6H PRN PO PAIN AND OR ELEVATED TEMP Last administered on 05/04/17 03:22; Admin Dose 650 MG; Start 04/23/17 at 20:30 Lactobacillus Acidophilus/ Rhamnosus (Culturelle) 1 cap BID PO Last administered on 05/04/17 08:15; Admin Dose 1 CAP; Start 04/24/17 at 11:30 Diagnostic Test (Pha) (Accu-Chek) 1 ea 02 XX ; Start 04/26/17 at 02:00 Docusate Sodium (Colace) 100 mg BID PO Last administered on 05/04/17 08:15; Admin Dose 100 MG; Start 04/30/17 at 21:00 Furosemide 20 mg 20 mg BID IV Last administered on 05/04/17 08:42; Admin Dose 20 MG; Start 05/03/17 at 21:00 Potassium Chloride (KCl 40 MEQ/250 ML NS) 250 ml @ 62.5 mls/hr ONCE IVPB ; Start 05/04/17 at 11:30; Stop 05/04/17 at 15:29 Potassium Chloride (Klor-Con 20) 20 meq BID PO ; Start 05/04/17 at 21:00 AAORN ANSARI M.D. May 04, 2017 10:39
[2017-05-04] MEDS ORDERED: POTASSIUM CHLORIDE 250 ML IVPB SCH (11:30)
--- NOTE | 2017-05-04 11:41 | CONS ---
Date/Time of Note Date/Time of Note DATE: 05/04/17 TIME: 11:38 Assessment/Plan Assessment/Plan Additional Assessment/Plan Chest x-ray was reviewed from of last month which is showing marked improvement in right sided infiltrative changes. Assessment and recommendations; 1. Patient admitted with hepatic abscess then developed bilateral pneumonia with bilateral pleural effusions. However there has been significant radiological improvement now. 2. Status post right sided chest tube placement. Continue current treatment. Consider removing chest tube. Patient likely will not need to have a VATS procedure performed any longer. Consultation Date/Type/Reason Admit Date/Time Apr 13, 2017 at 19:51 Initial Consult Date 04/15/17 Type of Consultation: Pulmonary Referring Provider: DARREL BURT MD 24 HR Interval Summary Free Text/Dictation Patient condition is stable. Remains awake and alert. Denies any shortness of breath. Chest pain. Abdominal pain. Nausea or vomiting. General exam; elderly woman, awake and alert. Currently in no distress. Exam/Review of Systems Vital Signs Vitals Vital Signs Date Time Temp Pulse Resp B/P Pulse Ox O2 Delivery O2 Flow Rate FiO2 05/04/17 08:30 79 05/04/17 08:00 Nasal Cannula 05/04/17 07:52 98.2 20 104/60 95 05/04/17 07:39 2.0 Intake and Output 05/03/17 05/03/17 05/04/17 15:00 23:00 07:00 Intake Total 500 ml Balance 500 ml Exam HEENT exam; supple neck, no JVD. No lymphadenopathy. Midline trachea. No thyromegaly. Patient does have carious teeth. Chest exam; diminished but clear breath sounds. Right side chest tube in place. S1-S2 audible, no murmurs. Regular rhythm. Abdomen exam; soft, nontender. No organomegaly. Bowel sounds audible. Right upper quadrant drain in place. Extremity exam; no edema. [employer] CLERK exam; no focal deficit. Results Result Diagram: 05/04/1771605/04/17716 Results 24 hrs Laboratory Tests Test 05/03/17 12:09 05/03/17 17:42 05/03/17 20:20 05/04/17 07:17 Bedside Glucose 103 144 98 White Blood Count 8.5 Red Blood Count 2.91 L Hemoglobin 8.7 L Hematocrit 26.8 L Mean Corpuscular Volume 92.1 Mean Corpuscular Hemoglobin 29.9 Mean Corpuscular Hemoglobin Concent 32.5 Red Cell Distribution Width 13.9 Platelet Count 542 H Mean Platelet Volume 8.2 Neutrophils % 59.0 Lymphocytes % 23.9 Monocytes % 13.4 H Eosinophils % 2.1 Basophils % 0.5 Nucleated Red Blood Cells % 0.0 Neutrophils # 5.0 Lymphocytes # 2.0 Monocytes # 1.1 H Eosinophils # 0.2 Basophils # 0.0 Nucleated Red Blood Cells # 0.0 Sodium Level 134 L Potassium Level 3.0 L Chloride Level 95 L Carbon Dioxide Level 34 H Anion Gap 8 Blood Urea Nitrogen 7 Creatinine 0.38 L Glucose Level 89 Calcium Level 9.0 Test 05/04/17 08:10 Bedside Glucose 80 Medications Medications Current Medications Miscellaneous Information 1 ea NOTE XX ; Start 04/13/17 at 21:30 Glucose (Glutose) 15 gm Q15M PRN PO DECREASED GLUCOSE; Start 04/13/17 at 21:30 Glucose (Glutose) 22.5 gm Q15M PRN PO DECREASED GLUCOSE; Start 04/13/17 at 21: 30 Dextrose (D50w Syringe) 25 ml Q15M PRN IV DECREASED GLUCOSE; Start 04/13/17 at 21:30 Dextrose (D50w Syringe) 50 ml Q15M PRN IV DECREASED GLUCOSE; Start 04/13/17 at 21:30 Glucagon (Glucagen) 1 mg Q15M PRN IM DECREASED GLUCOSE; Start 04/13/17 at 21:30 Glucose (Glutose) 15 gm Q15M PRN BUCCAL DECREASED GLUCOSE; Start 04/13/17 at 21 :30 Ondansetron HCl (Zofran Inj) 4 mg Q6 PRN IV NAUSEA AND/OR VOMITING Last administered on 04/26/17 20:25; Admin Dose 4 MG; Start 04/13/17 at 21:30 Guaifenesin/ Dextromethorphan (Robitussin Dm Liquid Cup) 5 ml Q4H PRN PO COUGH Last administered on 04/19/17 05:09; Admin Dose 5 ML; Start 04/15/17 at 16:30 Pantoprazole (Protonix Tab) 40 mg DAILY@06 PO Last administered on 05/04/17 05 :41; Admin Dose 40 MG; Start 04/17/17 at 06:00 Acetaminophen (Tylenol Tab) 500 mg Q6H PRN PO PAIN AND OR ELEVATED TEMP Last administered on 04/28/17 18:33; Admin Dose 500 MG; Start 04/17/17 at 03:00 Magnesium Hydroxide 30 ml 30 ml DAILY PRN PO CONSTIPATION Last administered on 04/28/17 18:33; Admin Dose 30 ML; Start 04/17/17 at 11:30 Ampicillin Sodium/ Sulbactam Sodium (Unasyn 1.5gm/NS (Pmx)) 50 ml @ 100 mls/hr Q6 IVPB Last administered on 05/04/17 11:32; Admin Dose 100 MLS/HR; Start at 18:00 Fentanyl (Duragesic 12 Mcg/Hr Patch) 1 patch Q72H TRANSDERM Last administered on 05/04/17 08:14; Admin Dose 1 PATCH; Start 04/22/17 at 05:30 Morphine Sulfate (morphine) 1 mg Q4H PRN IV SEVERE PAIN LEVEL 7-10 Last administered on 04/26/17 20:25; Admin Dose 1 MG; Start 04/22/17 at 17:30 Metoclopramide HCl (Reglan) 10 mg Q6H PRN IV NAUSEA Last administered on 20:18; Admin Dose 10 MG; Start 04/22/17 at 21:00 Enoxaparin Sodium (Lovenox) 30 mg DAILY SC Last administered on 05/04/17 08:14 ; Admin Dose 30 MG; Start 04/23/17 at 20:30 Acetaminophen (Tylenol Supp) 650 mg Q6H PRN [place] FEVER GREATER THAN 100.6; Start 04/23/17 at 20:30 Acetaminophen (Tylenol Tab) 650 mg Q6H PRN PO PAIN AND OR ELEVATED TEMP Last administered on 05/04/17 03:22; Admin Dose 650 MG; Start 04/23/17 at 20:30 Lactobacillus Acidophilus/ Rhamnosus (Culturelle) 1 cap BID PO Last administered on 05/04/17 08:15; Admin Dose 1 CAP; Start 04/24/17 at 11:30 Diagnostic Test (Pha) (Accu-Chek) 1 ea 02 XX ; Start 04/26/17 at 02:00 Docusate Sodium (Colace) 100 mg BID PO Last administered on 05/04/17 08:15; Admin Dose 100 MG; Start 04/30/17 at 21:00 Furosemide 20 mg 20 mg BID IV Last administered on 05/04/17 08:42; Admin Dose 20 MG; Start 05/03/17 at 21:00 Potassium Chloride (KCl 40 MEQ/250 ML NS) 250 ml @ 62.5 mls/hr ONCE IVPB ; Start 05/04/17 at 11:30; Stop 05/04/17 at 15:29 Potassium Chloride (Klor-Con 20) 20 meq BID PO ; Start 05/04/17 at 21:00 LINDA GARCIA May 04, 2017 11:41
--- NOTE | 2017-05-04 12:31 | CONS ---
Date/Time of Note Date/Time of Note DATE: 05/04/17 TIME: 12:29 Assessment/Plan Assessment/Plan Chief Complaint/Hosp Course IMP: 1.Hypotension-now improved/stable 2.abnl ecg-negative trop x 3/NL EF by echo. NO CP 3.Liver abscess s/p CT guided drainage 4.H/O lung ca s/p resection with lung nodules by CT? 5.Lung nodules 6. Hyponatremia 7. Effusion s/p CT with ongoing effusion 8. HYpokalemia Recc: -Tele -Continue abx's -F/U cx data -Follow BP closely -pain control -Continue lasix daily IV and follow volume status/NA closely -Rplete KCL as you are doing -Follow CT output with possible need for vats/decortication Problems: Consultation Date/Type/Reason Admit Date/Time Apr 13, 2017 at 19:51 Initial Consult Date 04/13/17 Type of Consultation: cardiology Reason for Consultation Chest pain Referring Provider: DARREL BURT MD Exam/Review of Systems Vital Signs Vitals Vital Signs Date Time Temp Pulse Resp B/P Pulse Ox O2 Delivery O2 Flow Rate FiO2 05/04/17 12:10 80 05/04/17 11:55 98.3 19 111/65 100 05/04/17 08:00 Nasal Cannula 05/04/17 07:39 2.0 Intake and Output 05/03/17 05/03/17 05/04/17 15:00 23:00 07:00 Intake Total 500 ml Balance 500 ml Exam Review of Systems: CONSTITUTIONAL: No fevers, chills. PULMONARY: No sob CARDIOVASCULAR: No chest pain/palpitations GASTROINTESTINAL: No nausea/vomiting. GENITOURINARY: No hematuria/dysuria. MUSCULOSKELETAL: No myagias/arthalgias. PSYCHIATRIC: The patient denies depression. NEUROLOGIC: No weakness Constitutional: alert Psych: no complaints Head: normocephalic ENMT: mucosa pink and moist Neck: jvd (8 cm water), supple Respiratory: diminished breath sounds (at bases/B), other (R sidede CT) Cardiovascular: regular rate and rhythm Gastrointestinal: non-tender Musculoskeletal: muscle tone (normal) Extremities: edema (none) 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: other (No focal deficits) Results Result Diagram: 10/2/17 0717 10/2/17 0717 Results 24 hrs Laboratory Tests Test 05/03/17 17:42 05/03/17 20:20 05/04/17 07:17 05/04/17 08:10 Bedside Glucose 144 98 80 White Blood Count 8.5 Red Blood Count 2.91 L Hemoglobin 8.7 L Hematocrit 26.8 L Mean Corpuscular Volume 92.1 Mean Corpuscular Hemoglobin 29.9 Mean Corpuscular Hemoglobin Concent 32.5 Red Cell Distribution Width 13.9 Platelet Count 542 H Mean Platelet Volume 8.2 Neutrophils % 59.0 Lymphocytes % 23.9 Monocytes % 13.4 H Eosinophils % 2.1 Basophils % 0.5 Nucleated Red Blood Cells % 0.0 Neutrophils # 5.0 Lymphocytes # 2.0 Monocytes # 1.1 H Eosinophils # 0.2 Basophils # 0.0 Nucleated Red Blood Cells # 0.0 Sodium Level 134 L Potassium Level 3.0 L Chloride Level 95 L Carbon Dioxide Level 34 H Anion Gap 8 Blood Urea Nitrogen 7 Creatinine 0.38 L Glucose Level 89 Calcium Level 9.0 Test 05/04/17 12:24 Bedside Glucose 86 Medications Medications Current Medications Miscellaneous Information 1 ea NOTE XX ; Start 04/13/17 at 21:30 Glucose (Glutose) 15 gm Q15M PRN PO DECREASED GLUCOSE; Start 04/13/17 at 21:30 Glucose (Glutose) 22.5 gm Q15M PRN PO DECREASED GLUCOSE; Start 04/13/17 at 21: 30 Dextrose (D50w Syringe) 25 ml Q15M PRN IV DECREASED GLUCOSE; Start 04/13/17 at 21:30 Dextrose (D50w Syringe) 50 ml Q15M PRN IV DECREASED GLUCOSE; Start 04/13/17 at 21:30 Glucagon (Glucagen) 1 mg Q15M PRN IM DECREASED GLUCOSE; Start 04/13/17 at 21:30 Glucose (Glutose) 15 gm Q15M PRN BUCCAL DECREASED GLUCOSE; Start 04/13/17 at 21 :30 Ondansetron HCl (Zofran Inj) 4 mg Q6 PRN IV NAUSEA AND/OR VOMITING Last administered on 04/26/17 20:25; Admin Dose 4 MG; Start 04/13/17 at 21:30 Guaifenesin/ Dextromethorphan (Robitussin Dm Liquid Cup) 5 ml Q4H PRN PO COUGH Last administered on 04/19/17 05:09; Admin Dose 5 ML; Start 04/15/17 at 16:30 Pantoprazole (Protonix Tab) 40 mg DAILY@06 PO Last administered on 05/04/17 05 :41; Admin Dose 40 MG; Start 04/17/17 at 06:00 Acetaminophen (Tylenol Tab) 500 mg Q6H PRN PO PAIN AND OR ELEVATED TEMP Last administered on 04/28/17 18:33; Admin Dose 500 MG; Start 04/17/17 at 03:00 Magnesium Hydroxide 30 ml 30 ml DAILY PRN PO CONSTIPATION Last administered on 04/28/17 18:33; Admin Dose 30 ML; Start 04/17/17 at 11:30 Ampicillin Sodium/ Sulbactam Sodium (Unasyn 1.5gm/NS (Pmx)) 50 ml @ 100 mls/hr Q6 IVPB Last administered on 05/04/17 11:32; Admin Dose 100 MLS/HR; Start at 18:00 Fentanyl (Duragesic 12 Mcg/Hr Patch) 1 patch Q72H TRANSDERM Last administered on 05/04/17 08:14; Admin Dose 1 PATCH; Start 04/22/17 at 05:30 Morphine Sulfate (morphine) 1 mg Q4H PRN IV SEVERE PAIN LEVEL 7-10 Last administered on 04/26/17 20:25; Admin Dose 1 MG; Start 04/22/17 at 17:30 Metoclopramide HCl (Reglan) 10 mg Q6H PRN IV NAUSEA Last administered on 20:18; Admin Dose 10 MG; Start 04/22/17 at 21:00 Enoxaparin Sodium (Lovenox) 30 mg DAILY SC Last administered on 05/04/17 08:14 ; Admin Dose 30 MG; Start 04/23/17 at 20:30 Acetaminophen (Tylenol Supp) 650 mg Q6H PRN [place] FEVER GREATER THAN 100.6; Start 04/23/17 at 20:30 Acetaminophen (Tylenol Tab) 650 mg Q6H PRN PO PAIN AND OR ELEVATED TEMP Last administered on 05/04/17 03:22; Admin Dose 650 MG; Start 04/23/17 at 20:30 Lactobacillus Acidophilus/ Rhamnosus (Culturelle) 1 cap BID PO Last administered on 05/04/17 08:15; Admin Dose 1 CAP; Start 04/24/17 at 11:30 Diagnostic Test (Pha) (Accu-Chek) 1 ea 02 XX ; Start 04/26/17 at 02:00 Docusate Sodium (Colace) 100 mg BID PO Last administered on 05/04/17 08:15; Admin Dose 100 MG; Start 04/30/17 at 21:00 Furosemide 20 mg 20 mg BID IV Last administered on 05/04/17 08:42; Admin Dose 20 MG; Start 05/03/17 at 21:00 Potassium Chloride (KCl 40 MEQ/250 ML NS) 250 ml @ 62.5 mls/hr ONCE IVPB Last administered on 05/04/17 12:23; Admin Dose 62.5 MLS/HR; Start 05/04/17 at 11:30 ; Stop 05/04/17 at 15:29 Potassium Chloride (Klor-Con 20) 20 meq BID PO ; Start 05/04/17 at 21:00 LILIANA BARKSDALE May 04, 2017 12:31
--- NOTE | 2017-05-04 19:13 | PN ---
Date/Time of Note Date/Time of Note DATE: 05/04/17 TIME: 19:09 Assessment/Plan VTE Prophylaxis VTE Prophylaxis Intervention: SCD's Lines/Catheters IV [facility] [place] [facility] Urinary Cath still in place: No Assessment/Plan Chief Complaint/Hosp Course Patient remains hemodynamically stable, no acute events overnight, hypokalemia, status post replacement. Assessment/Plan - Bilateral pleural effusions right more than left, status post right thoracentesis 04/20. S/p right chest tube insertion on 04/[address] Jackson, vascular surgery. S/p right thoracentesis 04/26. - Acute respiratory failure secondary to #1, Dr. Damico is following in pulmonology consultation continue oxygen oxygen supplementation - Severe sepsis 09/04 to liver abscess, resolving. Continue antibiotics per ID. is following in infection disease consultation - Liver abscess unchanged per recent CT, s/p CT guided drainage 04/15/2017, s/p CT guided percutaneous drainage of liver abscess 04/23, status post CT-guided liver abscess drainage 04/27 - Normocytic anemia requiring blood transfusion - Hx of rectal CA s/p Low anterior resection 08/29/2016 Further recommendations based on clinical course. Plan of care discussed with Dr. Dior Problems: Exam/Review of Systems Vital Signs Vitals Vital Signs Date Time Temp Pulse Resp B/P Pulse Ox O2 Delivery O2 Flow Rate FiO2 05/04/17 16:24 95 05/04/17 15:51 98.5 20 110/72 99 05/04/17 08:00 Nasal Cannula 05/04/17 07:39 2.0 Intake and Output 05/03/17 05/03/17 05/04/17 15:00 23:00 07:00 Intake Total 500 ml Balance 500 ml Exam Constitutional: alert Neck: supple Respiratory: diminished breath sounds, CT Cardiovascular: nl pulses Gastrointestinal: other (Hepatic drains *2), soft Extremities: normal pulses Results Result Diagram: 05/04/1771605/04/17716 Results 24 hrs Laboratory Tests Test 05/03/17 20:20 05/04/17 07:17 05/04/17 08:10 05/04/17 12:24 Bedside Glucose 98 80 86 White Blood Count 8.5 Red Blood Count 2.91 L Hemoglobin 8.7 L Hematocrit 26.8 L Mean Corpuscular Volume 92.1 Mean Corpuscular Hemoglobin 29.9 Mean Corpuscular Hemoglobin Concent 32.5 Red Cell Distribution Width 13.9 Platelet Count 542 H Mean Platelet Volume 8.2 Neutrophils % 59.0 Lymphocytes % 23.9 Monocytes % 13.4 H Eosinophils % 2.1 Basophils % 0.5 Nucleated Red Blood Cells % 0.0 Neutrophils # 5.0 Lymphocytes # 2.0 Monocytes # 1.1 H Eosinophils # 0.2 Basophils # 0.0 Nucleated Red Blood Cells # 0.0 Sodium Level 134 L Potassium Level 3.0 L Chloride Level 95 L Carbon Dioxide Level 34 H Anion Gap 8 Blood Urea Nitrogen 7 Creatinine 0.38 L Glucose Level 89 Calcium Level 9.0 Test 05/04/17 17:36 Bedside Glucose 91 Medications Medications Current Medications Miscellaneous Information 1 ea NOTE XX ; Start 04/13/17 at 21:30 Glucose (Glutose) 15 gm Q15M PRN PO DECREASED GLUCOSE; Start 04/13/17 at 21:30 Glucose (Glutose) 22.5 gm Q15M PRN PO DECREASED GLUCOSE; Start 04/13/17 at 21: 30 Dextrose (D50w Syringe) 25 ml Q15M PRN IV DECREASED GLUCOSE; Start 04/13/17 at 21:30 Dextrose (D50w Syringe) 50 ml Q15M PRN IV DECREASED GLUCOSE; Start 04/13/17 at 21:30 Glucagon (Glucagen) 1 mg Q15M PRN IM DECREASED GLUCOSE; Start 04/13/17 at 21:30 Glucose (Glutose) 15 gm Q15M PRN BUCCAL DECREASED GLUCOSE; Start 04/13/17 at 21 :30 Ondansetron HCl (Zofran Inj) 4 mg Q6 PRN IV NAUSEA AND/OR VOMITING Last administered on 04/26/17 20:25; Admin Dose 4 MG; Start 04/13/17 at 21:30 Guaifenesin/ Dextromethorphan (Robitussin Dm Liquid Cup) 5 ml Q4H PRN PO COUGH Last administered on 04/19/17 05:09; Admin Dose 5 ML; Start 04/15/17 at 16:30 Pantoprazole (Protonix Tab) 40 mg DAILY@06 PO Last administered on 05/04/17 05 :41; Admin Dose 40 MG; Start 04/17/17 at 06:00 Acetaminophen (Tylenol Tab) 500 mg Q6H PRN PO PAIN AND OR ELEVATED TEMP Last administered on 04/28/17 18:33; Admin Dose 500 MG; Start 04/17/17 at 03:00 Magnesium Hydroxide 30 ml 30 ml DAILY PRN PO CONSTIPATION Last administered on 04/28/17 18:33; Admin Dose 30 ML; Start 04/17/17 at 11:30 Ampicillin Sodium/ Sulbactam Sodium (Unasyn 1.5gm/NS (Pmx)) 50 ml @ 100 mls/hr Q6 IVPB Last administered on 05/04/17 17:38; Admin Dose 100 MLS/HR; Start at 18:00 Fentanyl (Duragesic 12 Mcg/Hr Patch) 1 patch Q72H TRANSDERM Last administered on 05/04/17 08:14; Admin Dose 1 PATCH; Start 04/22/17 at 05:30 Morphine Sulfate (morphine) 1 mg Q4H PRN IV SEVERE PAIN LEVEL 7-10 Last administered on 04/26/17 20:25; Admin Dose 1 MG; Start 04/22/17 at 17:30 Metoclopramide HCl (Reglan) 10 mg Q6H PRN IV NAUSEA Last administered on 20:18; Admin Dose 10 MG; Start 04/22/17 at 21:00 Enoxaparin Sodium (Lovenox) 30 mg DAILY SC Last administered on 05/04/17 08:14 ; Admin Dose 30 MG; Start 04/23/17 at 20:30 Acetaminophen (Tylenol Supp) 650 mg Q6H PRN [place] FEVER GREATER THAN 100.6; Start 04/23/17 at 20:30 Acetaminophen (Tylenol Tab) 650 mg Q6H PRN PO PAIN AND OR ELEVATED TEMP Last administered on 05/04/17 03:22; Admin Dose 650 MG; Start 04/23/17 at 20:30 Lactobacillus Acidophilus/ Rhamnosus (Culturelle) 1 cap BID PO Last administered on 05/04/17 08:15; Admin Dose 1 CAP; Start 04/24/17 at 11:30 Diagnostic Test (Pha) (Accu-Chek) 1 ea 02 XX ; Start 04/26/17 at 02:00 Docusate Sodium (Colace) 100 mg BID PO Last administered on 05/04/17 08:15; Admin Dose 100 MG; Start 04/30/17 at 21:00 Furosemide (Lasix) 20 mg BID IV Last administered on 05/04/17 08:42; Admin Dose 20 MG; Start 05/03/17 at 21:00 Potassium Chloride (Klor-Con 20) 20 meq BID PO ; Start 05/04/17 at 21:00 WINDY EMERY May 04, 2017 19:13
[2017-05-04] MEDS: POTASSIUM CHLORIDE (SR) 20 MEQ TAB PO SCH (20:16)
[2017-05-04] MEDS: ACETAMINOPHEN 500 MG TAB PO PRN (20:21)
[2017-05-05] VITALS (14 sets, daily range): BP systolic 102–131; BP diastolic 59–76; PULSE 81–96; RESP 16–20
[2017-05-05] MEDS: AMPICILLIN/SULB 1.5GM/NS (PMX) 50 ML IVPB SCH ×4 (00:15→17:47)
[2017-05-05] MEDS: ACCU-CHEK XX SCH (02:00)
[2017-05-05] MEDS: PANTOPRAZOLE (EC) 40 MG TAB PO SCH (05:26)
--- NOTE | 2017-05-05 07:05 | PN ---
DATE: 05/04/2017 SUBJECTIVE DATA: No complaints. No nausea, no vomiting. Passing gas. No abdominal pain. OBJECTIVE DATA: GENERAL: Awake, alert, oriented. VITAL SIGNS: Temperature 98.3, heart rate 80, respiration 19, blood pressure 111/65. Saturation 100 percent room air. LABORATORY AND DIAGNOSTIC DATA: Today, WBC 8500, with 59 percent segmented, hemoglobin 8.7, hematocrit 26.8. BUN and creatinine, sodium, potassium normal. The pigtail drain has drained 30 mL each respectively serosanguineous. Chest tube drainage zero. ASSESSMENT AND PLAN: A 66-year-old female, who was admitted with liver abscesses, multilobulated and loculated abscess. The patient started on antibiotics and so far 3 times the liver abscess has been drained by different pigtails drainage and at this time there are 2 more left in the liver abscess area. The last CT scan revealed presence of 1 moves loculation and we tried to have the radiologist drain this one also percutaneously but Dr. Decker stated that this is too far too posterior and it is almost close to the diapheragm and it is very difficult to do that and it probably is not possible. But comparing yesterday's CT scan with admission CT scan reveals that the liver abscess has shrunken a lot and most of the loculation has been drained and even this loculation has shrunken to at least half its size of the admitting time. Therefore it appears that probably it is possible to take care of the abscess with antibiotic alone but it is going to take a long time. I discussed with Dr. Martin also the matter and see what his opinion on the infectious disease. Meanwhile, continue antibiotic care. Continue current care. Dictated By: Osmani Ceballos MD /rachel/haroon /Document#: [id number] SANJAY
[2017-05-05] MEDS: Insulin NOVOLOG SS MILD Algorithm (SS with meals and bedtime) SC SCH ×4 (07:30→20:33)
[2017-05-05 09:24] LABS: BASOPHILS % 0.4 % (0.0-2.0); EOSINOPHILS # 0.2 10^3/ul (0.0-0.5); EOSINOPHILS % 1.5 % (0.0-7.0); LYMPHOCYTES # 2.2 10^3/ul (0.8-2.9); LYMPHOCYTES % 21.4 % (15.0-51.0); MEAN CORPUSCULAR HEMOGLOBIN 28.9 pg (29.0-33.0); MEAN CORPUSCULAR VOLUME 93.2 fl (82.0-101.0); MEAN PLATELET VOLUME 8.3 fl (7.4-10.4); MONOCYTES % 9.2 % (0.0-11.0); NEUTROPHIL # 6.9 10^3/ul (1.6-7.5); NEUTROPHILS % 66.4 % (39.0-77.0); PLATELET COUNT 575 10^3/UL (140-415); RED BLOOD COUNT 3.11 10^6/ul (4.20-5.40); RED CELL DISTRIBUTION WIDTH 14.1 % (11.5-14.5); WHITE BLOOD COUNT 10.3 10^3/ul (4.8-10.8)
[2017-05-05 09:46] LABS: CALCIUM 9.1 mg/dl (8.4-10.2); CREATININE 0.37 mg/dl (0.44-1.00); POTASSIUM 4.2 mmol/L (3.5-5.1)
[2017-05-05] MEDS: LACTOBACILLUS RHAMNOSUS CAP PO SCH ×2 (10:16→20:29)
[2017-05-05] MEDS: FUROSEMIDE 20 MG INJ IV SCH ×2 (10:16→20:29)
[2017-05-05] MEDS: POTASSIUM CHLORIDE (SR) 20 MEQ TAB PO SCH ×2 (10:16→20:29)
[2017-05-05] MEDS: DOCUSATE SODIUM 100 MG CAP PO SCH ×2 (10:16→20:29)
--- NOTE | 2017-05-05 10:19 | CONS ---
Date/Time of Note Date/Time of Note DATE: 05/05/17 TIME: 10:18 Assessment/Plan Assessment/Plan Chief Complaint/Hosp Course - severe sepsis due to pyogenic liver abscess, loculated pleural effusion - multiloculated pyogenic liver abscess s/p CT guided drainage catheter placement 04/15/2017, 04/23/2017, s/p repeat drainage 04/27/2017; cultures from gamma hemolytic strep, cultures from 04/23/2017 alpha hemolytic strep - loculated pleural effusion likely secondary to hepatic process/Hepatic hydrothorax, R>L, s/p R thoracentesis on 04/20/2017, s/p chest tube placement on 04/22/2017 - intermittent diarrhea - normocytic anemia requiring blood transfusion - coagulopathy, improved - Transaminitis, improved - Hyponatremia - CoNS in urine culture with trivial pyuria, likely contaminant - Hx of rectal CA s/p Low anterior resection 08/29/2016 - Severe protein calorie malnutrition - allergy to vancomycin recommendations: - ordered CXR in light of worsening pleuritic chest pain - I recommend at least weekly CBC and BMP while Pt's on long-term antibiotic - continue amp/sulbactam (04/18/2017-); s/p linezolid and pip/tazo (04/13-2016). we recommend long-term (6 weeks at least) antibiotic administration; we recommend repeat imaging prior to antibiotic cessation to ensure resolution management d/w Pt Problems: Consultation Date/Type/Reason Admit Date/Time Apr 13, 2017 at 19:51 Initial Consult Date 04/21/17 Type of Consultation: ID Referring Provider: DARREL BURT MD 24 HR Interval Summary Constitutional: no complaints Detailed Summary Eyes: no complaints ENT: no complaints Respiratory: pleuritic pain, No cough, No shortness of breath, No sputum Cardiovascular: no complaints Gastrointestinal: no complaints Genitourinary: no complaints Musculoskeletal: no complaints Skin: no complaints Neurologic: no complaints Exam/Review of Systems Vital Signs Vitals Vital Signs Date Time Temp Pulse Resp B/P Pulse Ox O2 Delivery O2 Flow Rate FiO2 05/05/17 08:00 89 05/05/17 07:40 98.0 20 123/76 98 05/05/17 02:08 2.0 05/04/17 20:27 Nasal Cannula Intake and Output 05/04/17 05/04/17 05/05/17 15:00 23:00 07:00 Intake Total 550 ml 1050 ml 600 ml Balance 550 ml 1050 ml 600 ml Exam Constitutional: alert, frail, oriented Head: atraumatic, normocephalic Eyes: nl conjunctiva, nl lids, nl sclera ENMT: nl external ears & nose, nl nasal mucosa & septum Neck: supple Respiratory: diminished breath sounds, other (R CT) Cardiovascular: nl pulses, regular rate and rhythm Gastrointestinal: non-tender, other (drainage catheters x2), soft Musculoskeletal: nl extremities to inspection Extremities: No edema 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: MILK OF LIME SLAKER II-XII intact, 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, nl speech Skin: nl turgor Results Result Diagram: 05/05/17 0845 05/05/17 0845 Results 24 hrs Laboratory Tests Test 05/04/17 12:24 05/04/17 17:36 05/04/17 20:26 05/05/17 08:43 Bedside Glucose 86 91 103 84 Test 05/05/17 08:45 White Blood Count 10.3 # Red Blood Count 3.11 L Hemoglobin 9.0 L Hematocrit 29.0 L Mean Corpuscular Volume 93.2 Mean Corpuscular Hemoglobin 28.9 L Mean Corpuscular Hemoglobin Concent 31.0 L Red Cell Distribution Width 14.1 Platelet Count 575 H Mean Platelet Volume 8.3 Neutrophils % 66.4 Lymphocytes % 21.4 Monocytes % 9.2 Eosinophils % 1.5 Basophils % 0.4 Nucleated Red Blood Cells % 0.0 Neutrophils # 6.9 Lymphocytes # 2.2 Monocytes # 1.0 H Eosinophils # 0.2 Basophils # 0.0 Nucleated Red Blood Cells # 0.0 Sodium Level 133 L Potassium Level 4.2 Chloride Level 97 Carbon Dioxide Level 31 Anion Gap 9 Blood Urea Nitrogen 12 Creatinine 0.37 L Glucose Level 87 Calcium Level 9.1 Medications Medications Current Medications Miscellaneous Information 1 ea NOTE XX ; Start 04/13/17 at 21:30 Glucose (Glutose) 15 gm Q15M PRN PO DECREASED GLUCOSE; Start 04/13/17 at 21:30 Glucose (Glutose) 22.5 gm Q15M PRN PO DECREASED GLUCOSE; Start 04/13/17 at 21: 30 Dextrose (D50w Syringe) 25 ml Q15M PRN IV DECREASED GLUCOSE; Start 04/13/17 at 21:30 Dextrose (D50w Syringe) 50 ml Q15M PRN IV DECREASED GLUCOSE; Start 04/13/17 at 21:30 Glucagon (Glucagen) 1 mg Q15M PRN IM DECREASED GLUCOSE; Start 04/13/17 at 21:30 Glucose (Glutose) 15 gm Q15M PRN BUCCAL DECREASED GLUCOSE; Start 04/13/17 at 21 :30 Ondansetron HCl (Zofran Inj) 4 mg Q6 PRN IV NAUSEA AND/OR VOMITING Last administered on 04/26/17 20:25; Admin Dose 4 MG; Start 04/13/17 at 21:30 Guaifenesin/ Dextromethorphan (Robitussin Dm Liquid Cup) 5 ml Q4H PRN PO COUGH Last administered on 04/19/17 05:09; Admin Dose 5 ML; Start 04/15/17 at 16:30 Pantoprazole (Protonix Tab) 40 mg DAILY@06 PO Last administered on 05/05/17 05 :26; Admin Dose 40 MG; Start 04/17/17 at 06:00 Acetaminophen (Tylenol Tab) 500 mg Q6H PRN PO PAIN AND OR ELEVATED TEMP Last administered on 05/04/17 20:21; Admin Dose 500 MG; Start 04/17/17 at 03:00 Magnesium Hydroxide 30 ml 30 ml DAILY PRN PO CONSTIPATION Last administered on 04/28/17 18:33; Admin Dose 30 ML; Start 04/17/17 at 11:30 Ampicillin Sodium/ Sulbactam Sodium (Unasyn 1.5gm/NS (Pmx)) 50 ml @ 100 mls/hr Q6 IVPB Last administered on 05/05/17 05:27; Admin Dose 100 MLS/HR; Start at 18:00 Fentanyl (Duragesic 12 Mcg/Hr Patch) 1 patch Q72H TRANSDERM Last administered on 05/04/17 08:14; Admin Dose 1 PATCH; Start 04/22/17 at 05:30 Morphine Sulfate (morphine) 1 mg Q4H PRN IV SEVERE PAIN LEVEL 7-10 Last administered on 04/26/17 20:25; Admin Dose 1 MG; Start 04/22/17 at 17:30 Metoclopramide HCl (Reglan) 10 mg Q6H PRN IV NAUSEA Last administered on 20:18; Admin Dose 10 MG; Start 04/22/17 at 21:00 Enoxaparin Sodium (Lovenox) 30 mg DAILY SC Last administered on 05/04/17 08:14 ; Admin Dose 30 MG; Start 04/23/17 at 20:30 Acetaminophen (Tylenol Supp) 650 mg Q6H PRN [place] FEVER GREATER THAN 100.6; Start 04/23/17 at 20:30 Acetaminophen (Tylenol Tab) 650 mg Q6H PRN PO PAIN AND OR ELEVATED TEMP Last administered on 05/04/17 03:22; Admin Dose 650 MG; Start 04/23/17 at 20:30 Lactobacillus Acidophilus/ Rhamnosus (Culturelle) 1 cap BID PO Last administered on 05/05/17 10:16; Admin Dose 1 CAP; Start 04/24/17 at 11:30 Diagnostic Test (Pha) (Accu-Chek) 1 ea 02 XX ; Start 04/26/17 at 02:00 Docusate Sodium (Colace) 100 mg BID PO Last administered on 05/05/17 10:16; Admin Dose 100 MG; Start 04/30/17 at 21:00 Furosemide (Lasix) 20 mg BID IV Last administered on 05/05/17 10:16; Admin Dose 20 MG; Start 05/03/17 at 21:00 Potassium Chloride (Klor-Con 20) 20 meq BID PO Last administered on 05/05/17 10:16; Admin Dose 20 MEQ; Start 05/04/17 at 21:00 AARON ANSARI M.D. May 05, 2017 10:19
[2017-05-05] MEDS: ENOXAPARIN 30 MG/0.3 ML SYG SC SCH (10:24)
--- NOTE | 2017-05-05 12:05 | RADRPT ---
PROCEDURE: XR Chest. CLINICAL INDICATION: Shortness of breath. TECHNIQUE: Single frontal view. COMPARISON: 05/01/2017. FINDINGS: There is a right pleural effusion, larger than seen previously. The right chest tube is in position. There is hazy opacification of the right hemithorax consistent with pleural effusion. The left lung is clear and there is a small left pleural effusion. The heart size is normal. There is calcification in the aorta consistent with atherosclerosis. There is no pneumothorax. Drainage catheters are present in the liver. IMPRESSION: 1. Larger right pleural effusion and worse appearance of the right lung. 2. No other change from 05/01/2017. RPTAT: QQ .Logan Decker MD, MD Date Time Electronically viewed and signed by .Logan Decker MD, on 05/05/2017 12:04 .R/
--- NOTE | 2017-05-05 12:33 | CONS ---
Date/Time of Note Date/Time of Note DATE: 05/05/17 TIME: 12:31 Assessment/Plan Assessment/Plan Additional Assessment/Plan Chest x-ray was reviewed from today which is now showing significant right pleural effusion. Assessment and recommendations; 1. Patient admitted with hepatic abscess status post percutaneous drain placement. Lateral pneumonia with significant loculated right pleural effusion status post chest tube placement without any further drainage or radiological improvement. Continue current treatment. Patient will need to have a VATS procedure performed on the right side. Consultation Date/Type/Reason Admit Date/Time Apr 13, 2017 at 19:51 Initial Consult Date 04/15/17 Type of Consultation: Pulmonary Referring Provider: DARREL BURT MD 24 HR Interval Summary Free Text/Dictation Patient's condition remains stable. Denies any shortness of breath, fever, chest pain or abdominal pain. General exam; elderly woman, awake alert. Currently in no distress. Exam/Review of Systems Vital Signs Vitals Vital Signs Date Time Temp Pulse Resp B/P Pulse Ox O2 Delivery O2 Flow Rate FiO2 05/05/17 12:04 98.4 91 20 103/59 99 05/05/17 08:40 Nasal Cannula 2.0 Intake and Output 05/04/17 05/04/17 05/05/17 15:00 23:00 07:00 Intake Total 550 ml 1050 ml 600 ml Balance 550 ml 1050 ml 600 ml Exam HEENT exam; supple neck, no JVD. No lymphadenopathy. Midline trachea. No thyromegaly. Patient has a multiple carious teeth. Pupils are small bilaterally. Chest exam; diminished breath sounds right lung. Right-sided chest tube in place. Left lung is clear to auscultation. S1-S2 audible, no murmurs. Regular rhythm. Abdomen exam; soft, no organomegaly. Nontender. Bowel sounds audible. Right upper quadrant drain in place. Extremity exam; no peripheral edema. No clubbing. HOSPICE MUSIC THERAPIST exam; no focal deficit. Results Result Diagram: 05/05/1745 05/05/1745 Results 24 hrs Laboratory Tests Test 05/04/17 17:36 05/04/17 20:26 05/05/17 08:43 05/05/17 08:45 Bedside Glucose 91 103 84 White Blood Count 10.3 # Red Blood Count 3.11 L Hemoglobin 9.0 L Hematocrit 29.0 L Mean Corpuscular Volume 93.2 Mean Corpuscular Hemoglobin 28.9 L Mean Corpuscular Hemoglobin Concent 31.0 L Red Cell Distribution Width 14.1 Platelet Count 575 H Mean Platelet Volume 8.3 Neutrophils % 66.4 Lymphocytes % 21.4 Monocytes % 9.2 Eosinophils % 1.5 Basophils % 0.4 Nucleated Red Blood Cells % 0.0 Neutrophils # 6.9 Lymphocytes # 2.2 Monocytes # 1.0 H Eosinophils # 0.2 Basophils # 0.0 Nucleated Red Blood Cells # 0.0 Sodium Level 133 L Potassium Level 4.2 Chloride Level 97 Carbon Dioxide Level 31 Anion Gap 9 Blood Urea Nitrogen 12 Creatinine 0.37 L Glucose Level 87 Calcium Level 9.1 Test 05/05/17 12:22 Bedside Glucose 99 Medications Medications Current Medications Miscellaneous Information 1 ea NOTE XX ; Start 04/13/17 at 21:30 Glucose (Glutose) 15 gm Q15M PRN PO DECREASED GLUCOSE; Start 04/13/17 at 21:30 Glucose (Glutose) 22.5 gm Q15M PRN PO DECREASED GLUCOSE; Start 04/13/17 at 21: 30 Dextrose (D50w Syringe) 25 ml Q15M PRN IV DECREASED GLUCOSE; Start 04/13/17 at 21:30 Dextrose (D50w Syringe) 50 ml Q15M PRN IV DECREASED GLUCOSE; Start 04/13/17 at 21:30 Glucagon (Glucagen) 1 mg Q15M PRN IM DECREASED GLUCOSE; Start 04/13/17 at 21:30 Glucose (Glutose) 15 gm Q15M PRN BUCCAL DECREASED GLUCOSE; Start 04/13/17 at 21 :30 Ondansetron HCl (Zofran Inj) 4 mg Q6 PRN IV NAUSEA AND/OR VOMITING Last administered on 04/26/17 20:25; Admin Dose 4 MG; Start 04/13/17 at 21:30 Guaifenesin/ Dextromethorphan (Robitussin Dm Liquid Cup) 5 ml Q4H PRN PO COUGH Last administered on 04/19/17 05:09; Admin Dose 5 ML; Start 04/15/17 at 16:30 Pantoprazole (Protonix Tab) 40 mg DAILY@06 PO Last administered on 05/05/17 05 :26; Admin Dose 40 MG; Start 04/17/17 at 06:00 Acetaminophen (Tylenol Tab) 500 mg Q6H PRN PO PAIN AND OR ELEVATED TEMP Last administered on 05/04/17 20:21; Admin Dose 500 MG; Start 04/17/17 at 03:00 Magnesium Hydroxide 30 ml 30 ml DAILY PRN PO CONSTIPATION Last administered on 04/28/17 18:33; Admin Dose 30 ML; Start 04/17/17 at 11:30 Ampicillin Sodium/ Sulbactam Sodium (Unasyn 1.5gm/NS (Pmx)) 50 ml @ 100 mls/hr Q6 IVPB Last administered on 05/05/17 12:29; Admin Dose 100 MLS/HR; Start at 18:00 Fentanyl (Duragesic 12 Mcg/Hr Patch) 1 patch Q72H TRANSDERM Last administered on 05/04/17 08:14; Admin Dose 1 PATCH; Start 04/22/17 at 05:30 Morphine Sulfate (morphine) 1 mg Q4H PRN IV SEVERE PAIN LEVEL 7-10 Last administered on 04/26/17 20:25; Admin Dose 1 MG; Start 04/22/17 at 17:30 Metoclopramide HCl (Reglan) 10 mg Q6H PRN IV NAUSEA Last administered on 20:18; Admin Dose 10 MG; Start 04/22/17 at 21:00 Enoxaparin Sodium (Lovenox) 30 mg DAILY SC Last administered on 05/05/17 10:24 ; Admin Dose 30 MG; Start 04/23/17 at 20:30 Acetaminophen (Tylenol Supp) 650 mg Q6H PRN [place] FEVER GREATER THAN 100.6; Start 04/23/17 at 20:30 Acetaminophen (Tylenol Tab) 650 mg Q6H PRN PO PAIN AND OR ELEVATED TEMP Last administered on 05/04/17 03:22; Admin Dose 650 MG; Start 04/23/17 at 20:30 Lactobacillus Acidophilus/ Rhamnosus (Culturelle) 1 cap BID PO Last administered on 05/05/17 10:16; Admin Dose 1 CAP; Start 04/24/17 at 11:30 Diagnostic Test (Pha) (Accu-Chek) 1 ea 02 XX ; Start 04/26/17 at 02:00 Docusate Sodium (Colace) 100 mg BID PO Last administered on 05/05/17 10:16; Admin Dose 100 MG; Start 04/30/17 at 21:00 Furosemide (Lasix) 20 mg BID IV Last administered on 05/05/17 10:16; Admin Dose 20 MG; Start 05/03/17 at 21:00 Potassium Chloride (Klor-Con 20) 20 meq BID PO Last administered on 05/05/17 10:16; Admin Dose 20 MEQ; Start 05/04/17 at 21:00 LINDA GARCIA May 05, 2017 12:33
--- NOTE | 2017-05-05 15:10 | CONS ---
Date/Time of Note Date/Time of Note DATE: 05/05/17 TIME: 15:07 Assessment/Plan Assessment/Plan Additional Assessment/Plan 1. Hypotension-now improved/stable - BP much better now, infection improved 2. Abnl ecg-negative trop x 3/NL EF by echo. NO CP - no intervention planned. 3.Liver abscess s/p CT guided drainage - much better overall. 4.H/O lung ca s/p resection with lung nodules by CT- pulnary team follows 5.Lung nodules 6. Hyponatremia 7. Effusion s/p CT with ongoing effusion 8. HYpokalemia Consultation Date/Type/Reason Admit Date/Time Apr 13, 2017 at 19:51 Initial Consult Date 04/13/17 Type of Consultation: Pulmonary Referring Provider: DARREL BURT MD 24 HR Interval Summary Free Text/Dictation NO acute events - BP in good range - pt much better overall ROS: No fever, no chills, no nausea, no vomiting, no diarrhea/constipation No recent weight changes No chest pain, no PND, no orthopnea No dizziness, blurred vision No thirst, no heat or cold intolerance Exam/Review of Systems Vital Signs Vitals Vital Signs Date Time Temp Pulse Resp B/P Pulse Ox O2 Delivery O2 Flow Rate FiO2 05/05/17 12:04 98.4 91 20 103/59 99 05/05/17 08:40 Nasal Cannula 2.0 Intake and Output 05/04/17 05/04/17 05/05/17 15:00 23:00 07:00 Intake Total 550 ml 1050 ml 600 ml Balance 550 ml 1050 ml 600 ml Exam General: WN/WD/NAD, AOx 3 HEENT: Unicetric/atraumatic/EOMI (follow commands) NECK: JVD elevated, no thyromegaly Lymph: no lymphadenopathy HEART: regular with no S3, II/ systolic murmur at apex LUNGS: Coarse sounds ABD: soft, NT, ND, +BS : Intact Neuro: non focal SKIN: chronic changes EXT: trace edema Results Result Diagram: 05/05/1745 05/05/1745 Results 24 hrs Laboratory Tests Test 05/04/17 17:36 05/04/17 20:26 05/05/17 08:43 05/05/17 08:45 Bedside Glucose 91 103 84 White Blood Count 10.3 # Red Blood Count 3.11 L Hemoglobin 9.0 L Hematocrit 29.0 L Mean Corpuscular Volume 93.2 Mean Corpuscular Hemoglobin 28.9 L Mean Corpuscular Hemoglobin Concent 31.0 L Red Cell Distribution Width 14.1 Platelet Count 575 H Mean Platelet Volume 8.3 Neutrophils % 66.4 Lymphocytes % 21.4 Monocytes % 9.2 Eosinophils % 1.5 Basophils % 0.4 Nucleated Red Blood Cells % 0.0 Neutrophils # 6.9 Lymphocytes # 2.2 Monocytes # 1.0 H Eosinophils # 0.2 Basophils # 0.0 Nucleated Red Blood Cells # 0.0 Sodium Level 133 L Potassium Level 4.2 Chloride Level 97 Carbon Dioxide Level 31 Anion Gap 9 Blood Urea Nitrogen 12 Creatinine 0.37 L Glucose Level 87 Calcium Level 9.1 Test 05/05/17 12:22 Bedside Glucose 99 Medications Medications Current Medications Miscellaneous Information 1 ea NOTE XX ; Start 04/13/17 at 21:30 Glucose (Glutose) 15 gm Q15M PRN PO DECREASED GLUCOSE; Start 04/13/17 at 21:30 Glucose (Glutose) 22.5 gm Q15M PRN PO DECREASED GLUCOSE; Start 04/13/17 at 21: 30 Dextrose (D50w Syringe) 25 ml Q15M PRN IV DECREASED GLUCOSE; Start 04/13/17 at 21:30 Dextrose (D50w Syringe) 50 ml Q15M PRN IV DECREASED GLUCOSE; Start 04/13/17 at 21:30 Glucagon (Glucagen) 1 mg Q15M PRN IM DECREASED GLUCOSE; Start 04/13/17 at 21:30 Glucose (Glutose) 15 gm Q15M PRN BUCCAL DECREASED GLUCOSE; Start 04/13/17 at 21 :30 Ondansetron HCl (Zofran Inj) 4 mg Q6 PRN IV NAUSEA AND/OR VOMITING Last administered on 04/26/17 20:25; Admin Dose 4 MG; Start 04/13/17 at 21:30 Guaifenesin/ Dextromethorphan (Robitussin Dm Liquid Cup) 5 ml Q4H PRN PO COUGH Last administered on 04/19/17 05:09; Admin Dose 5 ML; Start 04/15/17 at 16:30 Pantoprazole (Protonix Tab) 40 mg DAILY@06 PO Last administered on 05/05/17 05 :26; Admin Dose 40 MG; Start 04/17/17 at 06:00 Acetaminophen (Tylenol Tab) 500 mg Q6H PRN PO PAIN AND OR ELEVATED TEMP Last administered on 05/04/17 20:21; Admin Dose 500 MG; Start 04/17/17 at 03:00 Magnesium Hydroxide 30 ml 30 ml DAILY PRN PO CONSTIPATION Last administered on 04/28/17 18:33; Admin Dose 30 ML; Start 04/17/17 at 11:30 Ampicillin Sodium/ Sulbactam Sodium (Unasyn 1.5gm/NS (Pmx)) 50 ml @ 100 mls/hr Q6 IVPB Last administered on 05/05/17 12:29; Admin Dose 100 MLS/HR; Start at 18:00 Fentanyl (Duragesic 12 Mcg/Hr Patch) 1 patch Q72H TRANSDERM Last administered on 05/04/17 08:14; Admin Dose 1 PATCH; Start 04/22/17 at 05:30 Morphine Sulfate (morphine) 1 mg Q4H PRN IV SEVERE PAIN LEVEL 7-10 Last administered on 04/26/17 20:25; Admin Dose 1 MG; Start 04/22/17 at 17:30 Metoclopramide HCl (Reglan) 10 mg Q6H PRN IV NAUSEA Last administered on 20:18; Admin Dose 10 MG; Start 04/22/17 at 21:00 Enoxaparin Sodium (Lovenox) 30 mg DAILY SC Last administered on 05/05/17 10:24 ; Admin Dose 30 MG; Start 04/23/17 at 20:30 Acetaminophen (Tylenol Supp) 650 mg Q6H PRN [place] FEVER GREATER THAN 100.6; Start 04/23/17 at 20:30 Acetaminophen (Tylenol Tab) 650 mg Q6H PRN PO PAIN AND OR ELEVATED TEMP Last administered on 05/04/17 03:22; Admin Dose 650 MG; Start 04/23/17 at 20:30 Lactobacillus Acidophilus/ Rhamnosus (Culturelle) 1 cap BID PO Last administered on 05/05/17 10:16; Admin Dose 1 CAP; Start 04/24/17 at 11:30 Diagnostic Test (Pha) (Accu-Chek) 1 ea 02 XX ; Start 04/26/17 at 02:00 Docusate Sodium (Colace) 100 mg BID PO Last administered on 05/05/17 10:16; Admin Dose 100 MG; Start 04/30/17 at 21:00 Furosemide (Lasix) 20 mg BID IV Last administered on 05/05/17 10:16; Admin Dose 20 MG; Start 05/03/17 at 21:00 Potassium Chloride (Klor-Con 20) 20 meq BID PO Last administered on 05/05/17 10:16; Admin Dose 20 MEQ; Start 05/04/17 at 21:00 JAIME BULLARD MD May 05, 2017 15:10
--- NOTE | 2017-05-05 15:19 | CONS ---
Date/Time of Note Date/Time of Note DATE: 05/05/17 TIME: 15:17 Assessment/Plan Assessment/Plan Chief Complaint/Hosp Course Problems: Additional Assessment/Plan 1. Acute hyponatremia 2/2 Hypovolemic hyponatremia 2. sepsis due to liver abscess 3. Hepatic abscess oN CT scan s/p CT guided drainage on 04/15/17 and 04/23/17 4. Acute transaminitis 5. h/o Colon CA s/p previous Surgery 6. Hypokalemia 7. Multiloculated right pleural effusion s/p Thoracentesis x 2, on IV lasix Plan : drainage outptut stable,Na 133, cr normal continue KCl 20mEQ PO BID, pt is on lasix 20mg IV BID, IV abx as per ID, will make sure it is renally dosed pulmonary ID and G surgery has been following on patient. will follow up Consultation Date/Type/Reason Admit Date/Time Apr 13, 2017 at 19:51 Initial Consult Date 04/13/17 Type of Consultation: NEPHROLOGY Referring Provider: DARREL BURT MD 24 HR Interval Summary Free Text/Dictation Na 133, Cr 0.37, afebrile, no acute events Exam/Review of Systems Vital Signs Vitals Vital Signs Date Time Temp Pulse Resp B/P Pulse Ox O2 Delivery O2 Flow Rate FiO2 05/05/17 12:04 98.4 91 20 103/59 99 05/05/17 08:40 Nasal Cannula 2.0 Intake and Output 05/04/17 05/04/17 05/05/17 15:00 23:00 07:00 Intake Total 550 ml 1050 ml 600 ml Balance 550 ml 1050 ml 600 ml Exam Constitutional: alert, frail, oriented Respiratory: diminished breath sounds, other (chest tube) Cardiovascular: nl pulses, regular rate and rhythm Gastrointestinal: other (external draiange catheters) Musculoskeletal: nl extremities to inspection Extremities: No edema 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: JACK OF ALL [employer]ADES II-XII intact, 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 Results Result Diagram: 05/05/17 0845 05/05/17 0845 Results 24 hrs Laboratory Tests Test 05/04/17 17:36 05/04/17 20:26 05/05/17 08:43 05/05/17 08:45 Bedside Glucose 91 103 84 White Blood Count 10.3 # Red Blood Count 3.11 L Hemoglobin 9.0 L Hematocrit 29.0 L Mean Corpuscular Volume 93.2 Mean Corpuscular Hemoglobin 28.9 L Mean Corpuscular Hemoglobin Concent 31.0 L Red Cell Distribution Width 14.1 Platelet Count 575 H Mean Platelet Volume 8.3 Neutrophils % 66.4 Lymphocytes % 21.4 Monocytes % 9.2 Eosinophils % 1.5 Basophils % 0.4 Nucleated Red Blood Cells % 0.0 Neutrophils # 6.9 Lymphocytes # 2.2 Monocytes # 1.0 H Eosinophils # 0.2 Basophils # 0.0 Nucleated Red Blood Cells # 0.0 Sodium Level 133 L Potassium Level 4.2 Chloride Level 97 Carbon Dioxide Level 31 Anion Gap 9 Blood Urea Nitrogen 12 Creatinine 0.37 L Glucose Level 87 Calcium Level 9.1 Test 05/05/17 12:22 Bedside Glucose 99 Medications Medications Current Medications Miscellaneous Information 1 ea NOTE XX ; Start 04/13/17 at 21:30 Glucose (Glutose) 15 gm Q15M PRN PO DECREASED GLUCOSE; Start 04/13/17 at 21:30 Glucose (Glutose) 22.5 gm Q15M PRN PO DECREASED GLUCOSE; Start 04/13/17 at 21: 30 Dextrose (D50w Syringe) 25 ml Q15M PRN IV DECREASED GLUCOSE; Start 04/13/17 at 21:30 Dextrose (D50w Syringe) 50 ml Q15M PRN IV DECREASED GLUCOSE; Start 04/13/17 at 21:30 Glucagon (Glucagen) 1 mg Q15M PRN IM DECREASED GLUCOSE; Start 04/13/17 at 21:30 Glucose (Glutose) 15 gm Q15M PRN BUCCAL DECREASED GLUCOSE; Start 04/13/17 at 21 :30 Ondansetron HCl (Zofran Inj) 4 mg Q6 PRN IV NAUSEA AND/OR VOMITING Last administered on 04/26/17 20:25; Admin Dose 4 MG; Start 04/13/17 at 21:30 Guaifenesin/ Dextromethorphan (Robitussin Dm Liquid Cup) 5 ml Q4H PRN PO COUGH Last administered on 04/19/17 05:09; Admin Dose 5 ML; Start 04/15/17 at 16:30 Pantoprazole (Protonix Tab) 40 mg DAILY@06 PO Last administered on 05/05/17 05 :26; Admin Dose 40 MG; Start 04/17/17 at 06:00 Acetaminophen (Tylenol Tab) 500 mg Q6H PRN PO PAIN AND OR ELEVATED TEMP Last administered on 05/04/17 20:21; Admin Dose 500 MG; Start 04/17/17 at 03:00 Magnesium Hydroxide 30 ml 30 ml DAILY PRN PO CONSTIPATION Last administered on 04/28/17 18:33; Admin Dose 30 ML; Start 04/17/17 at 11:30 Ampicillin Sodium/ Sulbactam Sodium (Unasyn 1.5gm/NS (Pmx)) 50 ml @ 100 mls/hr Q6 IVPB Last administered on 05/05/17 12:29; Admin Dose 100 MLS/HR; Start at 18:00 Fentanyl (Duragesic 12 Mcg/Hr Patch) 1 patch Q72H TRANSDERM Last administered on 05/04/17 08:14; Admin Dose 1 PATCH; Start 04/22/17 at 05:30 Morphine Sulfate (morphine) 1 mg Q4H PRN IV SEVERE PAIN LEVEL 7-10 Last administered on 04/26/17 20:25; Admin Dose 1 MG; Start 04/22/17 at 17:30 Metoclopramide HCl (Reglan) 10 mg Q6H PRN IV NAUSEA Last administered on 20:18; Admin Dose 10 MG; Start 04/22/17 at 21:00 Enoxaparin Sodium (Lovenox) 30 mg DAILY SC Last administered on 05/05/17 10:24 ; Admin Dose 30 MG; Start 04/23/17 at 20:30 Acetaminophen (Tylenol Supp) 650 mg Q6H PRN [place] FEVER GREATER THAN 100.6; Start 04/23/17 at 20:30 Acetaminophen (Tylenol Tab) 650 mg Q6H PRN PO PAIN AND OR ELEVATED TEMP Last administered on 05/04/17 03:22; Admin Dose 650 MG; Start 04/23/17 at 20:30 Lactobacillus Acidophilus/ Rhamnosus (Culturelle) 1 cap BID PO Last administered on 05/05/17 10:16; Admin Dose 1 CAP; Start 04/24/17 at 11:30 Diagnostic Test (Pha) (Accu-Chek) 1 ea 02 XX ; Start 04/26/17 at 02:00 Docusate Sodium (Colace) 100 mg BID PO Last administered on 05/05/17 10:16; Admin Dose 100 MG; Start 04/30/17 at 21:00 Furosemide (Lasix) 20 mg BID IV Last administered on 05/05/17 10:16; Admin Dose 20 MG; Start 05/03/17 at 21:00 Potassium Chloride (Klor-Con 20) 20 meq BID PO Last administered on 05/05/17 10:16; Admin Dose 20 MEQ; Start 05/04/17 at 21:00 NGOC GARZA MD May 05, 2017 15:19
--- NOTE | 2017-05-05 17:45 | PN ---
Date/Time of Note Date/Time of Note DATE: 05/05/17 TIME: 17:44 Assessment/Plan VTE Prophylaxis VTE Prophylaxis Intervention: SCD's Lines/Catheters IV Catheter Type (from [facility]): [place] [facility] Urinary Cath still in place: No Assessment/Plan Chief Complaint/Hosp Course Patient remains hemodynamically stable, afebrile, PT evaluation and treatment Assessment/Plan - Bilateral pleural effusions right more than left, status post right thoracentesis 04/20. S/p right chest tube insertion on 04/[address] Jackson, vascular surgery. S/p right thoracentesis 04/26. - Acute respiratory failure secondary to #1, Dr. Damico is following in pulmonology consultation continue oxygen oxygen supplementation - Severe sepsis 2/2 to liver abscess, resolving. Continue antibiotics per ID. is following in infection disease consultation - Liver abscess unchanged per recent CT, s/p CT guided drainage 04/15/2017, s/p CT guided percutaneous drainage of liver abscess 04/23, status post CT-guided liver abscess drainage 04/27 - Normocytic anemia requiring blood transfusion - Hx of rectal CA s/p Low anterior resection 08/29/2016 Further recommendations based on clinical course. Plan of care discussed with Dr. Dior Problems: Exam/Review of Systems Vital Signs Vitals Vital Signs Date Time Temp Pulse Resp B/P Pulse Ox O2 Delivery O2 Flow Rate FiO2 05/05/17 16:54 2.0 05/05/17 16:00 87 05/05/17 15:55 98.7 20 131/76 90 05/05/17 08:40 Nasal Cannula Intake and Output 05/04/17 05/04/17 05/05/17 15:00 23:00 07:00 Intake Total 550 ml 1050 ml 600 ml Balance 550 ml 1050 ml 600 ml Exam Constitutional: alert Neck: supple Respiratory: diminished breath sounds, CT Cardiovascular: nl pulses Gastrointestinal: other (Hepatic drains *2), soft Extremities: normal pulses Results Result Diagram: 05/05/17 0845 05/05/17 0845 Results 24 hrs Laboratory Tests Test 05/04/17 20:26 05/05/17 08:43 05/05/17 08:45 05/05/17 12:22 Bedside Glucose 103 84 99 White Blood Count 10.3 # Red Blood Count 3.11 L Hemoglobin 9.0 L Hematocrit 29.0 L Mean Corpuscular Volume 93.2 Mean Corpuscular Hemoglobin 28.9 L Mean Corpuscular Hemoglobin Concent 31.0 L Red Cell Distribution Width 14.1 Platelet Count 575 H Mean Platelet Volume 8.3 Neutrophils % 66.4 Lymphocytes % 21.4 Monocytes % 9.2 Eosinophils % 1.5 Basophils % 0.4 Nucleated Red Blood Cells % 0.0 Neutrophils # 6.9 Lymphocytes # 2.2 Monocytes # 1.0 H Eosinophils # 0.2 Basophils # 0.0 Nucleated Red Blood Cells # 0.0 Sodium Level 133 L Potassium Level 4.2 Chloride Level 97 Carbon Dioxide Level 31 Anion Gap 9 Blood Urea Nitrogen 12 Creatinine 0.37 L Glucose Level 87 Calcium Level 9.1 Test 05/05/17 17:16 Bedside Glucose 83 Medications Medications Current Medications Miscellaneous Information 1 ea NOTE XX ; Start 04/13/17 at 21:30 Glucose (Glutose) 15 gm Q15M PRN PO DECREASED GLUCOSE; Start 04/13/17 at 21:30 Glucose (Glutose) 22.5 gm Q15M PRN PO DECREASED GLUCOSE; Start 04/13/17 at 21: 30 Dextrose (D50w Syringe) 25 ml Q15M PRN IV DECREASED GLUCOSE; Start 04/13/17 at 21:30 Dextrose (D50w Syringe) 50 ml Q15M PRN IV DECREASED GLUCOSE; Start 04/13/17 at 21:30 Glucagon (Glucagen) 1 mg Q15M PRN IM DECREASED GLUCOSE; Start 04/13/17 at 21:30 Glucose (Glutose) 15 gm Q15M PRN BUCCAL DECREASED GLUCOSE; Start 04/13/17 at 21 :30 Ondansetron HCl (Zofran Inj) 4 mg Q6 PRN IV NAUSEA AND/OR VOMITING Last administered on 04/26/17 20:25; Admin Dose 4 MG; Start 04/13/17 at 21:30 Guaifenesin/ Dextromethorphan (Robitussin Dm Liquid Cup) 5 ml Q4H PRN PO COUGH Last administered on 04/19/17 05:09; Admin Dose 5 ML; Start 04/15/17 at 16:30 Pantoprazole (Protonix Tab) 40 mg DAILY@06 PO Last administered on 05/05/17 05 :26; Admin Dose 40 MG; Start 04/17/17 at 06:00 Acetaminophen (Tylenol Tab) 500 mg Q6H PRN PO PAIN AND OR ELEVATED TEMP Last administered on 05/04/17 20:21; Admin Dose 500 MG; Start 04/17/17 at 03:00 Magnesium Hydroxide 30 ml 30 ml DAILY PRN PO CONSTIPATION Last administered on 04/28/17 18:33; Admin Dose 30 ML; Start 04/17/17 at 11:30 Ampicillin Sodium/ Sulbactam Sodium (Unasyn 1.5gm/NS (Pmx)) 50 ml @ 100 mls/hr Q6 IVPB Last administered on 05/05/17 12:29; Admin Dose 100 MLS/HR; Start at 18:00 Fentanyl (Duragesic 12 Mcg/Hr Patch) 1 patch Q72H TRANSDERM Last administered on 05/04/17 08:14; Admin Dose 1 PATCH; Start 04/22/17 at 05:30 Morphine Sulfate (morphine) 1 mg Q4H PRN IV SEVERE PAIN LEVEL 7-10 Last administered on 04/26/17 20:25; Admin Dose 1 MG; Start 04/22/17 at 17:30 Metoclopramide HCl (Reglan) 10 mg Q6H PRN IV NAUSEA Last administered on 20:18; Admin Dose 10 MG; Start 04/22/17 at 21:00 Enoxaparin Sodium (Lovenox) 30 mg DAILY SC Last administered on 05/05/17 10:24 ; Admin Dose 30 MG; Start 04/23/17 at 20:30 Acetaminophen (Tylenol Supp) 650 mg Q6H PRN [place] FEVER GREATER THAN 100.6; Start 04/23/17 at 20:30 Acetaminophen (Tylenol Tab) 650 mg Q6H PRN PO PAIN AND OR ELEVATED TEMP Last administered on 05/04/17 03:22; Admin Dose 650 MG; Start 04/23/17 at 20:30 Lactobacillus Acidophilus/ Rhamnosus (Culturelle) 1 cap BID PO Last administered on 05/05/17 10:16; Admin Dose 1 CAP; Start 04/24/17 at 11:30 Diagnostic Test (Pha) (Accu-Chek) 1 ea 02 XX ; Start 04/26/17 at 02:00 Docusate Sodium (Colace) 100 mg BID PO Last administered on 05/05/17 10:16; Admin Dose 100 MG; Start 04/30/17 at 21:00 Furosemide (Lasix) 20 mg BID IV Last administered on 05/05/17 10:16; Admin Dose 20 MG; Start 05/03/17 at 21:00 Potassium Chloride (Klor-Con 20) 20 meq BID PO Last administered on 05/05/17 10:16; Admin Dose 20 MEQ; Start 05/04/17 at 21:00 WINDY EMERY May 05, 2017 17:45
--- NOTE | 2017-05-05 17:48 | PN ---
DATE: 05/05/2017 SUBJECTIVE DATA: No complaints. Has had a bowel movement. No nausea, no vomiting. No abdominal pain. No shortness of breath. OBJECTIVE: GENERAL: Awake, alert, and oriented. VITAL SIGNS: Temperature 99, heart rate 88, respiration 20, blood pressure 102/61. Saturation 98 percent room air. LABORATORY DATA: WBC slightly increased to 10,300. Neutrophils 66 percent, hemoglobin 9, hematocrit 29, and platelet has increased gradually to 575,000. Chemistry: Sodium 133, potassium 4.2, BUN, creatinine normal. Calcium 9.1. IMAGING: No new x-ray no new procedures. Pigtail drains have drained 30 mL serosanguineous fluid. Chest tube has had no drainage. ASSESSMENT AND PLAN: The patient is a 66-year-old female, who was admitted with liver abscess and sepsis, and has had drainage of the liver abscess which was multi-loculated with multiple pigtail drains. The last CT scan which was done on 05/02/2017 years showed much improvement the pictures and shrinkage of the abscess cavities. There is one anterior segment of the right lobe which persists when seen, according to the radiologist, the size is increased to about 50 percent. We requested percutaneous drainage of this one but the radiologist stated that it is not possible technically to do that because of the location of that, so hopefully by continuation of antibiotic IV this abscess will disappear. Therefore the plan is to continue antibiotic as per recommendation of Infectious Disease, maybe for 6 weeks. We will repeat CT scan in about a week to see the extent of shrinkage of the abscess cavities. Meanwhile, the pleural effusion is being managed by the cardiothoracic surgeon and possibly he is going to do labs on this patient. Dictated By: Osmani Ceballos MD /rachel/audelia /Document#: [id number] SANJAY
--- NOTE | 2017-05-05 20:20 | EN ---
Date/Time of Note Date/Time of Note DATE: 05/05/17 TIME: 20:20 Event Note Surgery Surgery Event Note Plan for VATS or Thursday ADRIAN NO MD May 05, 2017 20:20
[2017-05-05] MEDS: ACETAMINOPHEN 500 MG TAB PO PRN (20:29)
[2017-05-06] VITALS (12 sets, daily range): BP systolic 103–136; BP diastolic 60–68; PULSE 79–103; RESP 16–20
[2017-05-06] MEDS: AMPICILLIN/SULB 1.5GM/NS (PMX) 50 ML IVPB SCH ×5 (00:25→23:59)
[2017-05-06] MEDS: ACCU-CHEK XX SCH (02:00)
[2017-05-06] MEDS: ACETAMINOPHEN 500 MG TAB PO PRN (03:25)
[2017-05-06] MEDS: PANTOPRAZOLE (EC) 40 MG TAB PO SCH (05:50)
[2017-05-06] MEDS: Insulin NOVOLOG SS MILD Algorithm (SS with meals and bedtime) SC SCH ×4 (07:30→21:00)
[2017-05-06 08:25] LABS: CALCIUM 9.1 mg/dl (8.4-10.2); CREATININE 0.43 mg/dl (0.44-1.00); POTASSIUM 4.3 mmol/L (3.5-5.1)
[2017-05-06] MEDS: POTASSIUM CHLORIDE (SR) 20 MEQ TAB PO SCH ×2 (09:11→21:30)
[2017-05-06] MEDS: ACETAMINOPHEN 325 MG TAB PO PRN (09:12)
[2017-05-06] MEDS: FUROSEMIDE 20 MG INJ IV SCH ×2 (09:12→21:32)
[2017-05-06] MEDS: DOCUSATE SODIUM 100 MG CAP PO SCH ×2 (09:12→21:30)
[2017-05-06] MEDS: LACTOBACILLUS RHAMNOSUS CAP PO SCH ×2 (09:12→21:30)
[2017-05-06] MEDS: ENOXAPARIN 30 MG/0.3 ML SYG SC SCH (09:18)
--- NOTE | 2017-05-06 09:24 | CONS ---
Date/Time of Note Date/Time of Note DATE: 05/06/17 TIME: 09:15 Assessment/Plan Assessment/Plan Chief Complaint/Hosp Course Problems: Additional Assessment/Plan 1. Acute hyponatremia 2/2 Hypovolemic hyponatremia - Resolved 2. sepsis due to liver abscess 3. Hepatic abscess oN CT scan s/p CT guided drainage on 04/15/17 and 04/23/17 4. Acute transaminitis 5. h/o Colon CA s/p previous Surgery 6. Hypokalemia 7. Multiloculated right pleural effusion s/p Thoracentesis x 2, on IV lasix Plan : drainage outptut stable,Na 137, cr normal continue KCl 20mEQ PO BID, pt is on lasix 20mg IV BID, - very limited ability to diurese pt for her right pleural effusion -previously she had a bumped Cr with IV lasix agressive diuresis with Lasix- we will discuss with Pulmoary to see if we can do something else for right pleural effusion.- pt will need some other sugical/pulmonary intervention. IV abx as per ID, will make sure it is renally dosed pulmonary ID and G surgery has been following on patient. will follow up Consultation Date/Type/Reason Admit Date/Time Apr 13, 2017 at 19:51 Initial Consult Date 04/13/17 Type of Consultation: NEPHROLOGY Referring Provider: DARREL BURT MD 24 HR Interval Summary Free Text/Dictation pt has right chest tube in place, CXR showed worsening Right pleural effusion Exam/Review of Systems Vital Signs Vitals Vital Signs Date Time Temp Pulse Resp B/P Pulse Ox O2 Delivery O2 Flow Rate FiO2 05/06/17 07:54 98.0 82 18 119/68 100 05/06/17 07:49 2.0 05/05/17 20:29 Nasal Cannula Intake and Output 05/05/17 05/05/17 05/06/17 15:00 23:00 07:00 Intake Total 50 ml 850 ml 500 ml Balance 50 ml 850 ml 500 ml Exam Constitutional: alert, frail, oriented Respiratory: diminished breath sounds, other (chest tube) Cardiovascular: nl pulses, regular rate and rhythm Gastrointestinal: other (external draiange catheters) Musculoskeletal: nl extremities to inspection Extremities: No edema 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: [employer] CONSULTANT II-XII intact, 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 Results Result Diagram: 05/05/17 0845 05/06/17 0723 Results 24 hrs Laboratory Tests Test 05/05/17 12:22 05/05/17 17:16 05/05/17 20:33 05/06/17 07:23 Bedside Glucose 99 83 126 Sodium Level 137 Potassium Level 4.3 Chloride Level 100 Carbon Dioxide Level 31 Anion Gap 10 Blood Urea Nitrogen 7 Creatinine 0.43 L Glucose Level 101 Calcium Level 9.1 Test 05/06/17 07:55 Bedside Glucose 94 Medications Medications Current Medications Miscellaneous Information 1 ea NOTE XX ; Start 04/13/17 at 21:30 Glucose (Glutose) 15 gm Q15M PRN PO DECREASED GLUCOSE; Start 04/13/17 at 21:30 Glucose (Glutose) 22.5 gm Q15M PRN PO DECREASED GLUCOSE; Start 04/13/17 at 21: 30 Dextrose (D50w Syringe) 25 ml Q15M PRN IV DECREASED GLUCOSE; Start 04/13/17 at 21:30 Dextrose (D50w Syringe) 50 ml Q15M PRN IV DECREASED GLUCOSE; Start 04/13/17 at 21:30 Glucagon (Glucagen) 1 mg Q15M PRN IM DECREASED GLUCOSE; Start 04/13/17 at 21:30 Glucose (Glutose) 15 gm Q15M PRN BUCCAL DECREASED GLUCOSE; Start 04/13/17 at 21 :30 Ondansetron HCl (Zofran Inj) 4 mg Q6 PRN IV NAUSEA AND/OR VOMITING Last administered on 04/26/17 20:25; Admin Dose 4 MG; Start 04/13/17 at 21:30 Guaifenesin/ Dextromethorphan (Robitussin Dm Liquid Cup) 5 ml Q4H PRN PO COUGH Last administered on 04/19/17 05:09; Admin Dose 5 ML; Start 04/15/17 at 16:30 Pantoprazole (Protonix Tab) 40 mg DAILY@06 PO Last administered on 05/06/17 05 :50; Admin Dose 40 MG; Start 04/17/17 at 06:00 Acetaminophen (Tylenol Tab) 500 mg Q6H PRN PO PAIN AND OR ELEVATED TEMP Last administered on 05/06/17 03:25; Admin Dose 500 MG; Start 04/17/17 at 03:00 Magnesium Hydroxide 30 ml 30 ml DAILY PRN PO CONSTIPATION Last administered on 04/28/17 18:33; Admin Dose 30 ML; Start 04/17/17 at 11:30 Ampicillin Sodium/ Sulbactam Sodium (Unasyn 1.5gm/NS (Pmx)) 50 ml @ 100 mls/hr Q6 IVPB Last administered on 05/06/17 05:50; Admin Dose 100 MLS/HR; Start at 18:00 Fentanyl (Duragesic 12 Mcg/Hr Patch) 1 patch Q72H TRANSDERM Last administered on 05/04/17 08:14; Admin Dose 1 PATCH; Start 04/22/17 at 05:30 Morphine Sulfate (morphine) 1 mg Q4H PRN IV SEVERE PAIN LEVEL 7-10 Last administered on 04/26/17 20:25; Admin Dose 1 MG; Start 04/22/17 at 17:30 Metoclopramide HCl (Reglan) 10 mg Q6H PRN IV NAUSEA Last administered on 20:18; Admin Dose 10 MG; Start 04/22/17 at 21:00 Enoxaparin Sodium (Lovenox) 30 mg DAILY SC Last administered on 05/05/17 10:24 ; Admin Dose 30 MG; Start 04/23/17 at 20:30 Acetaminophen (Tylenol Supp) 650 mg Q6H PRN [place] FEVER GREATER THAN 100.6; Start 04/23/17 at 20:30 Acetaminophen (Tylenol Tab) 650 mg Q6H PRN PO PAIN AND OR ELEVATED TEMP Last administered on 05/04/17 03:22; Admin Dose 650 MG; Start 04/23/17 at 20:30 Lactobacillus Acidophilus/ Rhamnosus (Culturelle) 1 cap BID PO Last administered on 05/05/17 20:29; Admin Dose 1 CAP; Start 04/24/17 at 11:30 Diagnostic Test (Pha) (Accu-Chek) 1 ea 02 XX ; Start 04/26/17 at 02:00 Docusate Sodium (Colace) 100 mg BID PO Last administered on 05/05/17 20:29; Admin Dose 100 MG; Start 04/30/17 at 21:00 Furosemide (Lasix) 20 mg BID IV Last administered on 05/05/17 20:29; Admin Dose 20 MG; Start 05/03/17 at 21:00 Potassium Chloride (Klor-Con 20) 20 meq BID PO Last administered on 05/05/17t 20:29; Admin Dose 20 MEQ; Start 05/04/17 at 21:00 NGOC GARZA MD May 06, 2017 09:24
--- NOTE | 2017-05-06 11:03 | CONS ---
Date/Time of Note Date/Time of Note DATE: 05/06/17 TIME: 10:58 Assessment/Plan Assessment/Plan Chief Complaint/Hosp Course - severe sepsis due to pyogenic liver abscess, loculated pleural effusion--> CXR on 05/05/2017 showed re-cumulation of the fluid - multiloculated pyogenic liver abscess s/p CT guided drainage catheter placement 04/15/2017, 04/23/2017, s/p repeat drainage 04/27/2017; cultures from gamma hemolytic strep, cultures from 04/23/2017 alpha hemolytic strep - loculated pleural effusion likely secondary to hepatic process/Hepatic hydrothorax, R>L, s/p R thoracentesis on 04/20/2017, s/p chest tube placement on 04/22/2017 - intermittent diarrhea - normocytic anemia requiring blood transfusion - coagulopathy, improved - Transaminitis, improved - Hyponatremia - CoNS in urine culture with trivial pyuria, likely contaminant - Hx of rectal CA s/p Low anterior resection 08/29/2016 - Severe protein calorie malnutrition - allergy to vancomycin recommendations: - when Pt undergoes VATS on 05/07 or 05/08, will request fluid and cytology. I asked Pt's RN to keep endorsing the next shift until the procedure is held - I recommend at least weekly CBC and BMP while Pt's on long-term antibiotic - continue amp/sulbactam (04/18/2017-); s/p linezolid and pip/tazo (04/13-2016). we recommend long-term (6 weeks at least) antibiotic administration; we recommend repeat imaging prior to antibiotic cessation to ensure resolution management d/w Pt and her RN Problems: Consultation Date/Type/Reason Admit Date/Time Apr 13, 2017 at 19:51 Initial Consult Date 04/21/17 Type of Consultation: ID Referring Provider: DARREL BURT MD 24 HR Interval Summary Constitutional: no complaints Detailed Summary Eyes: no complaints ENT: no complaints Respiratory: pleuritic pain (less pain of the chest), No cough, No shortness of breath Cardiovascular: no complaints Gastrointestinal: no complaints, No diarrhea Musculoskeletal: no complaints Skin: no complaints Neurologic: no complaints, other (abulted today) Exam/Review of Systems Vital Signs Vitals Vital Signs Date Time Temp Pulse Resp B/P Pulse Ox O2 Delivery O2 Flow Rate FiO2 05/06/17 08:30 79 05/06/17 07:54 98.0 18 119/68 100 05/06/17 07:49 2.0 05/05/17 20:29 Nasal Cannula Intake and Output 05/05/17 05/05/17 05/06/17 15:00 23:00 07:00 Intake Total 50 ml 850 ml 500 ml Balance 50 ml 850 ml 500 ml Exam Constitutional: alert, frail, oriented Psych: nl mood/affect, no complaints Head: atraumatic, normocephalic Eyes: nl conjunctiva, nl lids ENMT: mucosa pink and moist, nl external ears & nose, nl nasal mucosa & septum Neck: supple Respiratory: diminished breath sounds, other (R chest tube) Cardiovascular: nl pulses, regular rate and rhythm Gastrointestinal: non-tender, other (external drainage cath x2), soft Musculoskeletal: nl extremities to inspection Extremities: No edema 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: 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 WINDING 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 II-XII 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, 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, nl speech Skin: nl turgor Results Result Diagram: 05/05/17 0845 05/06/17 0723 Results 24 hrs Laboratory Tests Test 05/05/17 12:22 05/05/17 17:16 05/05/17 20:33 05/06/17 07:23 Bedside Glucose 99 83 126 Sodium Level 137 Potassium Level 4.3 Chloride Level 100 Carbon Dioxide Level 31 Anion Gap 10 Blood Urea Nitrogen 7 Creatinine 0.43 L Glucose Level 101 Calcium Level 9.1 Test 05/06/17 07:55 Bedside Glucose 94 Medications Medications Current Medications Miscellaneous Information 1 ea NOTE XX ; Start 04/13/17 at 21:30 Glucose (Glutose) 15 gm Q15M PRN PO DECREASED GLUCOSE; Start 04/13/17 at 21:30 Glucose (Glutose) 22.5 gm Q15M PRN PO DECREASED GLUCOSE; Start 04/13/17 at 21: 30 Dextrose (D50w Syringe) 25 ml Q15M PRN IV DECREASED GLUCOSE; Start 04/13/17 at 21:30 Dextrose (D50w Syringe) 50 ml Q15M PRN IV DECREASED GLUCOSE; Start 04/13/17 at 21:30 Glucagon (Glucagen) 1 mg Q15M PRN IM DECREASED GLUCOSE; Start 04/13/17 at 21:30 Glucose (Glutose) 15 gm Q15M PRN BUCCAL DECREASED GLUCOSE; Start 04/13/17 at 21 :30 Ondansetron HCl (Zofran Inj) 4 mg Q6 PRN IV NAUSEA AND/OR VOMITING Last administered on 04/26/17 20:25; Admin Dose 4 MG; Start 04/13/17 at 21:30 Guaifenesin/ Dextromethorphan (Robitussin Dm Liquid Cup) 5 ml Q4H PRN PO COUGH Last administered on 04/19/17 05:09; Admin Dose 5 ML; Start 04/15/17 at 16:30 Pantoprazole (Protonix Tab) 40 mg DAILY@06 PO Last administered on 05/06/17 05 :50; Admin Dose 40 MG; Start 04/17/17 at 06:00 Acetaminophen (Tylenol Tab) 500 mg Q6H PRN PO PAIN AND OR ELEVATED TEMP Last administered on 05/06/17 03:25; Admin Dose 500 MG; Start 04/17/17 at 03:00 Magnesium Hydroxide 30 ml 30 ml DAILY PRN PO CONSTIPATION Last administered on 04/28/17 18:33; Admin Dose 30 ML; Start 04/17/17 at 11:30 Ampicillin Sodium/ Sulbactam Sodium (Unasyn 1.5gm/NS (Pmx)) 50 ml @ 100 mls/hr Q6 IVPB Last administered on 05/06/17 05:50; Admin Dose 100 MLS/HR; Start at 18:00 Fentanyl (Duragesic 12 Mcg/Hr Patch) 1 patch Q72H TRANSDERM Last administered on 05/04/17 08:14; Admin Dose 1 PATCH; Start 04/22/17 at 05:30 Morphine Sulfate (morphine) 1 mg Q4H PRN IV SEVERE PAIN LEVEL 7-10 Last administered on 04/26/17 20:25; Admin Dose 1 MG; Start 04/22/17 at 17:30 Metoclopramide HCl (Reglan) 10 mg Q6H PRN IV NAUSEA Last administered on 20:18; Admin Dose 10 MG; Start 04/22/17 at 21:00 Enoxaparin Sodium (Lovenox) 30 mg DAILY SC Last administered on 05/06/17 09:18 ; Admin Dose 30 MG; Start 04/23/17 at 20:30 Acetaminophen (Tylenol Supp) 650 mg Q6H PRN [place] FEVER GREATER THAN 100.6; Start 04/23/17 at 20:30 Acetaminophen (Tylenol Tab) 650 mg Q6H PRN PO PAIN AND OR ELEVATED TEMP Last administered on 05/06/17 09:12; Admin Dose 650 MG; Start 04/23/17 at 20:30 Lactobacillus Acidophilus/ Rhamnosus (Culturelle) 1 cap BID PO Last administered on 05/06/17 09:12; Admin Dose 1 CAP; Start 04/24/17 at 11:30 Diagnostic Test (Pha) (Accu-Chek) 1 ea 02 XX ; Start 04/26/17 at 02:00 Docusate Sodium (Colace) 100 mg BID PO Last administered on 05/06/17 09:12; Admin Dose 100 MG; Start 04/30/17 at 21:00 Furosemide (Lasix) 20 mg BID IV Last administered on 05/06/17 09:12; Admin Dose 20 MG; Start 05/03/17 at 21:00 Potassium Chloride (Klor-Con 20) 20 meq BID PO Last administered on 05/06/17 09:11; Admin Dose 20 MEQ; Start 05/04/17 at 21:00 AARON ANSARI M.D. May 06, 2017 11:03
--- NOTE | 2017-05-06 11:05 | CONS ---
Date/Time of Note Date/Time of Note DATE: 05/06/17 TIME: 11:03 Assessment/Plan Assessment/Plan Additional Assessment/Plan Assessment and recommendations; 1. Patient admitted with hepatic abscess status post percutaneous drain placement. Currently on appropriate antibiotic regimen. 2. Bilateral lower lobe pneumonia with what appears to be a loculated right pleural effusion which has been refractory to ultrasound-guided thoracentesis as well as placement of chest tube. However her clinical examination is significantly improved. Obtain repeat CT chest without contrast. Once a CT imaging is done I will review it and make further recommendations. If the findings are not changed from prior examination then patient will need to have a VATS procedure performed. Consultation Date/Type/Reason Admit Date/Time Apr 13, 2017 at 19:51 Initial Consult Date 04/15/17 Type of Consultation: Pulmonary Referring Provider: DARREL BURT MD 24 HR Interval Summary Free Text/Dictation Patient condition is stable. Currently sitting on the edge of the bed. Getting physical therapy. Denies any shortness of breath, cough, wheezing or sputum production. Also denies any abdominal pain. General exam; elderly woman, awake and alert. Currently in no distress. Exam/Review of Systems Vital Signs Vitals Vital Signs Date Time Temp Pulse Resp B/P Pulse Ox O2 Delivery O2 Flow Rate FiO2 05/06/17 08:30 79 05/06/17 07:54 98.0 18 119/68 100 05/06/17 07:49 2.0 05/05/17 20:29 Nasal Cannula Intake and Output 05/05/17 05/05/17 05/06/17 15:00 23:00 07:00 Intake Total 50 ml 850 ml 500 ml Balance 50 ml 850 ml 500 ml Exam HEENT exam; supple neck, no JVD. No lymphadenopathy. Midline trachea. No thyromegaly. Patient does have multiple carious teeth. Pupils are midsize and reactive to light. Chest exam; improved breath sounds in lung bases bilaterally. Upper lobes are clear to auscultation. S1-S2 audible, no murmurs. Regular rhythm. Right- sided chest tube in place. Abdomen exam; soft, nontender. No organomegaly. Bowel sounds audible. Right upper quadrant drain in place. Extremity exam; no edema. SKATE SHOP ATTENDANT exam; no focal deficit. Results Result Diagram: 05/05/17 0845 05/06/17 0723 Results 24 hrs Laboratory Tests Test 05/05/17 12:22 05/05/17 17:16 05/05/17 20:33 05/06/17 07:23 Bedside Glucose 99 83 126 Sodium Level 137 Potassium Level 4.3 Chloride Level 100 Carbon Dioxide Level 31 Anion Gap 10 Blood Urea Nitrogen 7 Creatinine 0.43 L Glucose Level 101 Calcium Level 9.1 Test 05/06/17 07:55 Bedside Glucose 94 Medications Medications Current Medications Miscellaneous Information 1 ea NOTE XX ; Start 04/13/17 at 21:30 Glucose (Glutose) 15 gm Q15M PRN PO DECREASED GLUCOSE; Start 04/13/17 at 21:30 Glucose (Glutose) 22.5 gm Q15M PRN PO DECREASED GLUCOSE; Start 04/13/17 at 21: 30 Dextrose (D50w Syringe) 25 ml Q15M PRN IV DECREASED GLUCOSE; Start 04/13/17 at 21:30 Dextrose (D50w Syringe) 50 ml Q15M PRN IV DECREASED GLUCOSE; Start 04/13/17 at 21:30 Glucagon (Glucagen) 1 mg Q15M PRN IM DECREASED GLUCOSE; Start 04/13/17 at 21:30 Glucose (Glutose) 15 gm Q15M PRN BUCCAL DECREASED GLUCOSE; Start 04/13/17 at 21 :30 Ondansetron HCl (Zofran Inj) 4 mg Q6 PRN IV NAUSEA AND/OR VOMITING Last administered on 04/26/17 20:25; Admin Dose 4 MG; Start 04/13/17 at 21:30 Guaifenesin/ Dextromethorphan (Robitussin Dm Liquid Cup) 5 ml Q4H PRN PO COUGH Last administered on 04/19/17 05:09; Admin Dose 5 ML; Start 04/15/17 at 16:30 Pantoprazole (Protonix Tab) 40 mg DAILY@06 PO Last administered on 05/06/17 05 :50; Admin Dose 40 MG; Start 04/17/17 at 06:00 Acetaminophen (Tylenol Tab) 500 mg Q6H PRN PO PAIN AND OR ELEVATED TEMP Last administered on 05/06/17 03:25; Admin Dose 500 MG; Start 04/17/17 at 03:00 Magnesium Hydroxide 30 ml 30 ml DAILY PRN PO CONSTIPATION Last administered on 04/28/17 18:33; Admin Dose 30 ML; Start 04/17/17 at 11:30 Ampicillin Sodium/ Sulbactam Sodium (Unasyn 1.5gm/NS (Pmx)) 50 ml @ 100 mls/hr Q6 IVPB Last administered on 05/06/17 05:50; Admin Dose 100 MLS/HR; Start at 18:00 Fentanyl (Duragesic 12 Mcg/Hr Patch) 1 patch Q72H TRANSDERM Last administered on 05/04/17 08:14; Admin Dose 1 PATCH; Start 04/22/17 at 05:30 Morphine Sulfate (morphine) 1 mg Q4H PRN IV SEVERE PAIN LEVEL 7-10 Last administered on 04/26/17 20:25; Admin Dose 1 MG; Start 04/22/17 at 17:30 Metoclopramide HCl (Reglan) 10 mg Q6H PRN IV NAUSEA Last administered on 20:18; Admin Dose 10 MG; Start 04/22/17 at 21:00 Enoxaparin Sodium (Lovenox) 30 mg DAILY SC Last administered on 05/06/17 09:18 ; Admin Dose 30 MG; Start 04/23/17 at 20:30 Acetaminophen (Tylenol Supp) 650 mg Q6H PRN [place] FEVER GREATER THAN 100.6; Start 04/23/17 at 20:30 Acetaminophen (Tylenol Tab) 650 mg Q6H PRN PO PAIN AND OR ELEVATED TEMP Last administered on 05/06/17 09:12; Admin Dose 650 MG; Start 04/23/17 at 20:30 Lactobacillus Acidophilus/ Rhamnosus (Culturelle) 1 cap BID PO Last administered on 05/06/17 09:12; Admin Dose 1 CAP; Start 04/24/17 at 11:30 Diagnostic Test (Pha) (Accu-Chek) 1 ea 02 XX ; Start 04/26/17 at 02:00 Docusate Sodium (Colace) 100 mg BID PO Last administered on 05/06/17 09:12; Admin Dose 100 MG; Start 04/30/17 at 21:00 Furosemide (Lasix) 20 mg BID IV Last administered on 05/06/17 09:12; Admin Dose 20 MG; Start 05/03/17 at 21:00 Potassium Chloride (Klor-Con 20) 20 meq BID PO Last administered on 05/06/17 09:11; Admin Dose 20 MEQ; Start 05/04/17 at 21:00 LINDA GARCIA May 06, 2017 11:05
--- NOTE | 2017-05-06 15:07 | CONS ---
Date/Time of Note Date/Time of Note DATE: 05/06/17 TIME: 15:04 Assessment/Plan Assessment/Plan Chief Complaint/Hosp Course IMP: 1.Hypotension-now improved/stable 2.abnl ecg-negative trop x 3/NL EF by echo. NO CP 3.Liver abscess s/p CT guided drainage 4.H/O lung ca s/p resection with lung nodules by CT? 5.Lung nodules 6. Hyponatremia 7. Effusion s/p CT with ongoing effusion 8. HYpokalemia Recc: -Tele -Continue abx's -F/U cx data -Follow BP closely -pain control -Continue lasix now BID and follow volume status/NA closely -Follow CT output with possible need for vats/decortication Problems: Consultation Date/Type/Reason Admit Date/Time Apr 13, 2017 at 19:51 Initial Consult Date 04/13/17 Type of Consultation: cardiology Reason for Consultation Chest pain Referring Provider: DARREL BURT MD Exam/Review of Systems Vital Signs Vitals Vital Signs Date Time Temp Pulse Resp B/P Pulse Ox O2 Delivery O2 Flow Rate FiO2 05/06/17 14:01 91 05/06/17 11:46 98.2 18 104/63 97 05/06/17 07:49 2.0 05/05/17 20:29 Nasal Cannula Intake and Output 05/05/17 05/05/17 05/06/17 15:00 23:00 07:00 Intake Total 50 ml 850 ml 500 ml Balance 50 ml 850 ml 500 ml Exam Review of Systems: CONSTITUTIONAL: No fevers, chills. PULMONARY: No sob CARDIOVASCULAR: No chest pain/palpitations GASTROINTESTINAL: mild abd pain GENITOURINARY: No hematuria/dysuria. MUSCULOSKELETAL: No myagias/arthalgias. PSYCHIATRIC: The patient denies depression. NEUROLOGIC: No weakness Constitutional: alert, oriented Psych: no complaints Head: normocephalic ENMT: mucosa pink and moist Neck: jvd (9 cm water), supple Respiratory: diminished breath sounds (at baes/B), other (CT r sided) Cardiovascular: regular rate and rhythm Gastrointestinal: non-tender, soft Musculoskeletal: muscle weakness (weakness) Extremities: other (No focal deficits) Results Result Diagram: 05/05/17 0845 05/06/17 0723 Results 24 hrs Laboratory Tests Test 05/05/17 17:16 05/05/17 20:33 05/06/17 07:23 05/06/17 07:55 Bedside Glucose 83 126 94 Sodium Level 137 Potassium Level 4.3 Chloride Level 100 Carbon Dioxide Level 31 Anion Gap 10 Blood Urea Nitrogen 7 Creatinine 0.43 L Glucose Level 101 Calcium Level 9.1 Test 05/06/17 12:01 Bedside Glucose 126 Medications Medications Current Medications Miscellaneous Information 1 ea NOTE XX ; Start 04/13/17 at 21:30 Glucose (Glutose) 15 gm Q15M PRN PO DECREASED GLUCOSE; Start 04/13/17 at 21:30 Glucose (Glutose) 22.5 gm Q15M PRN PO DECREASED GLUCOSE; Start 04/13/17 at 21: 30 Dextrose (D50w Syringe) 25 ml Q15M PRN IV DECREASED GLUCOSE; Start 04/13/17 at 21:30 Dextrose (D50w Syringe) 50 ml Q15M PRN IV DECREASED GLUCOSE; Start 04/13/17 at 21:30 Glucagon (Glucagen) 1 mg Q15M PRN IM DECREASED GLUCOSE; Start 04/13/17 at 21:30 Glucose (Glutose) 15 gm Q15M PRN BUCCAL DECREASED GLUCOSE; Start 04/13/17 at 21 :30 Ondansetron HCl (Zofran Inj) 4 mg Q6 PRN IV NAUSEA AND/OR VOMITING Last administered on 04/26/17 20:25; Admin Dose 4 MG; Start 04/13/17 at 21:30 Guaifenesin/ Dextromethorphan (Robitussin Dm Liquid Cup) 5 ml Q4H PRN PO COUGH Last administered on 04/19/17 05:09; Admin Dose 5 ML; Start 04/15/17 at 16:30 Pantoprazole (Protonix Tab) 40 mg DAILY@06 PO Last administered on 05/06/17 05 :50; Admin Dose 40 MG; Start 04/17/17 at 06:00 Acetaminophen (Tylenol Tab) 500 mg Q6H PRN PO PAIN AND OR ELEVATED TEMP Last administered on 05/06/17 03:25; Admin Dose 500 MG; Start 04/17/17 at 03:00 Magnesium Hydroxide 30 ml 30 ml DAILY PRN PO CONSTIPATION Last administered on 04/28/17 18:33; Admin Dose 30 ML; Start 04/17/17 at 11:30 Ampicillin Sodium/ Sulbactam Sodium (Unasyn 1.5gm/NS (Pmx)) 50 ml @ 100 mls/hr Q6 IVPB Last administered on 05/06/17 12:43; Admin Dose 100 MLS/HR; Start at 18:00 Fentanyl (Duragesic 12 Mcg/Hr Patch) 1 patch Q72H TRANSDERM Last administered on 05/04/17 08:14; Admin Dose 1 PATCH; Start 04/22/17 at 05:30 Morphine Sulfate (morphine) 1 mg Q4H PRN IV SEVERE PAIN LEVEL 7-10 Last administered on 04/26/17 20:25; Admin Dose 1 MG; Start 04/22/17 at 17:30 Metoclopramide HCl (Reglan) 10 mg Q6H PRN IV NAUSEA Last administered on 20:18; Admin Dose 10 MG; Start 04/22/17 at 21:00 Enoxaparin Sodium (Lovenox) 30 mg DAILY SC Last administered on 05/06/17 09:18 ; Admin Dose 30 MG; Start 04/23/17 at 20:30 Acetaminophen (Tylenol Supp) 650 mg Q6H PRN [place] FEVER GREATER THAN 100.6; Start 04/23/17 at 20:30 Acetaminophen (Tylenol Tab) 650 mg Q6H PRN PO PAIN AND OR ELEVATED TEMP Last administered on 05/06/17 09:12; Admin Dose 650 MG; Start 04/23/17 at 20:30 Lactobacillus Acidophilus/ Rhamnosus (Culturelle) 1 cap BID PO Last administered on 05/06/17 09:12; Admin Dose 1 CAP; Start 04/24/17 at 11:30 Diagnostic Test (Pha) (Accu-Chek) 1 ea 02 XX ; Start 04/26/17 at 02:00 Docusate Sodium (Colace) 100 mg BID PO Last administered on 05/06/17 09:12; Admin Dose 100 MG; Start 04/30/17 at 21:00 Furosemide (Lasix) 20 mg BID IV Last administered on 05/06/17 09:12; Admin Dose 20 MG; Start 05/03/17 at 21:00 Potassium Chloride (Klor-Con 20) 20 meq BID PO Last administered on 05/06/17 09:11; Admin Dose 20 MEQ; Start 05/04/17 at 21:00 LILIANA BARKSDALE May 06, 2017 15:07
--- NOTE | 2017-05-06 15:48 | PN ---
Date/Time of Note Date/Time of Note DATE: 05/06/17 TIME: 15:47 Assessment/Plan VTE Prophylaxis VTE Prophylaxis Intervention: SCD's Lines/Catheters IV [facility]from [facility] Saline Lock Urinary Cath still in place: No Assessment/Plan Chief Complaint/Hosp Course Patient was able to ambulate with physical therapy, pending CT of the abdomen, remains hemodynamically stable. Assessment/Plan - Bilateral pleural effusions right more than left, status post right thoracentesis 04/20. S/p right chest tube insertion on 04/[address] Jackson, vascular surgery. S/p right thoracentesis 04/26. - Acute respiratory failure secondary to #1, Dr. Damico is following in pulmonology consultation continue oxygen oxygen supplementation - Severe sepsis 2/2 to liver abscess, resolving. Continue antibiotics per ID. is following in infection disease consultation - Liver abscess unchanged per recent CT, s/p CT guided drainage 04/15/2017, s/p CT guided percutaneous drainage of liver abscess 04/23, status post CT-guided liver abscess drainage 04/27 - Normocytic anemia requiring blood transfusion - Hx of rectal CA s/p Low anterior resection 08/29/2016 Further recommendations based on clinical course. Plan of care discussed with Dr. Dior Problems: Exam/Review of Systems Vital Signs Vitals Vital Signs Date Time Temp Pulse Resp B/P Pulse Ox O2 Delivery O2 Flow Rate FiO2 05/06/17 15:39 98.9 87 16 103/60 94 05/06/17 07:49 2.0 05/05/17 20:29 Nasal Cannula Intake and Output 05/05/17 05/05/17 05/06/17 15:00 23:00 07:00 Intake Total 50 ml 850 ml 500 ml Balance 50 ml 850 ml 500 ml Exam Constitutional: alert Neck: supple Respiratory: diminished breath sounds, CT Cardiovascular: nl pulses Gastrointestinal: other (Hepatic drains *2), soft Extremities: normal pulses Results Result Diagram: 05/05/17 0845 05/06/17 0723 Results 24 hrs Laboratory Tests Test 05/05/17 17:16 05/05/17 20:33 05/06/17 07:23 05/06/17 07:55 Bedside Glucose 83 126 94 Sodium Level 137 Potassium Level 4.3 Chloride Level 100 Carbon Dioxide Level 31 Anion Gap 10 Blood Urea Nitrogen 7 Creatinine 0.43 L Glucose Level 101 Calcium Level 9.1 Test 05/06/17 12:01 Bedside Glucose 126 Medications Medications Current Medications Miscellaneous Information 1 ea NOTE XX ; Start 04/13/17 at 21:30 Glucose (Glutose) 15 gm Q15M PRN PO DECREASED GLUCOSE; Start 04/13/17 at 21:30 Glucose (Glutose) 22.5 gm Q15M PRN PO DECREASED GLUCOSE; Start 04/13/17 at 21: 30 Dextrose (D50w Syringe) 25 ml Q15M PRN IV DECREASED GLUCOSE; Start 04/13/17 at 21:30 Dextrose (D50w Syringe) 50 ml Q15M PRN IV DECREASED GLUCOSE; Start 04/13/17 at 21:30 Glucagon (Glucagen) 1 mg Q15M PRN IM DECREASED GLUCOSE; Start 04/13/17 at 21:30 Glucose (Glutose) 15 gm Q15M PRN BUCCAL DECREASED GLUCOSE; Start 04/13/17 at 21 :30 Ondansetron HCl (Zofran Inj) 4 mg Q6 PRN IV NAUSEA AND/OR VOMITING Last administered on 04/26/17 20:25; Admin Dose 4 MG; Start 04/13/17 at 21:30 Guaifenesin/ Dextromethorphan (Robitussin Dm Liquid Cup) 5 ml Q4H PRN PO COUGH Last administered on 04/19/17 05:09; Admin Dose 5 ML; Start 04/15/17 at 16:30 Pantoprazole (Protonix Tab) 40 mg DAILY@06 PO Last administered on 05/06/17 05 :50; Admin Dose 40 MG; Start 04/17/17 at 06:00 Acetaminophen (Tylenol Tab) 500 mg Q6H PRN PO PAIN AND OR ELEVATED TEMP Last administered on 05/06/17 03:25; Admin Dose 500 MG; Start 04/17/17 at 03:00 Magnesium Hydroxide 30 ml 30 ml DAILY PRN PO CONSTIPATION Last administered on 04/28/17 18:33; Admin Dose 30 ML; Start 04/17/17 at 11:30 Ampicillin Sodium/ Sulbactam Sodium (Unasyn 1.5gm/NS (Pmx)) 50 ml @ 100 mls/hr Q6 IVPB Last administered on 05/06/17 12:43; Admin Dose 100 MLS/HR; Start at 18:00 Fentanyl (Duragesic 12 Mcg/Hr Patch) 1 patch Q72H TRANSDERM Last administered on 05/04/17 08:14; Admin Dose 1 PATCH; Start 04/22/17 at 05:30 Morphine Sulfate (morphine) 1 mg Q4H PRN IV SEVERE PAIN LEVEL 7-10 Last administered on 04/26/17 20:25; Admin Dose 1 MG; Start 04/22/17 at 17:30 Metoclopramide HCl (Reglan) 10 mg Q6H PRN IV NAUSEA Last administered on 20:18; Admin Dose 10 MG; Start 04/22/17 at 21:00 Enoxaparin Sodium (Lovenox) 30 mg DAILY SC Last administered on 05/06/17 09:18 ; Admin Dose 30 MG; Start 04/23/17 at 20:30 Acetaminophen (Tylenol Supp) 650 mg Q6H PRN [place] FEVER GREATER THAN 100.6; Start 04/23/17 at 20:30 Acetaminophen (Tylenol Tab) 650 mg Q6H PRN PO PAIN AND OR ELEVATED TEMP Last administered on 05/06/17 09:12; Admin Dose 650 MG; Start 04/23/17 at 20:30 Lactobacillus Acidophilus/ Rhamnosus (Culturelle) 1 cap BID PO Last administered on 05/06/17 09:12; Admin Dose 1 CAP; Start 04/24/17 at 11:30 Diagnostic Test (Pha) (Accu-Chek) 1 ea 02 XX ; Start 04/26/17 at 02:00 Docusate Sodium (Colace) 100 mg BID PO Last administered on 05/06/17 09:12; Admin Dose 100 MG; Start 04/30/17 at 21:00 Furosemide (Lasix) 20 mg BID IV Last administered on 05/06/17 09:12; Admin Dose 20 MG; Start 05/03/17 at 21:00 Potassium Chloride (Klor-Con 20) 20 meq BID PO Last administered on 05/06/17 09:11; Admin Dose 20 MEQ; Start 05/04/17 at 21:00 WINDY EMERY May 06, 2017 15:48
--- NOTE | 2017-05-06 18:15 | PN ---
Date/Time of Note Date/Time of Note DATE: 05/06/17 TIME: 18:14 Assessment/Plan Lines/Catheters IV Catheter Type (from Nrsg): Saline Lock Khan in Place (from Nrsg): No Assessment/Plan Chief Complaint/Hosp Course 66-year-old female with a history of colon/rectal ca presenting with sepsis due to liver abscesses, whose course has been complicated by mild hypoxemic resp insufficiency with enlarging R.> L effusions. SP CT placement still with large effusion Plan for VATS decortication Continue antibiotics per ID Problems: Subjective 24 Hr Interval Summary Constitutional: improved Pain Control: mild Exam/Review of Systems Vital Signs Vitals Vital Signs Date Time Temp Pulse Resp B/P Pulse Ox O2 Delivery O2 Flow Rate FiO2 05/06/17 16:56 91 05/06/17 15:39 98.9 16 103/60 94 05/06/17 07:49 2.0 05/06/17 07:45 Nasal Cannula Intake and Output 05/05/17 05/05/17 05/06/17 15:00 23:00 07:00 Intake Total 50 ml 850 ml 500 ml Balance 50 ml 850 ml 500 ml Exam Neck: non-tender, supple Respiratory: clear to auscultation, normal air movement Cardiovascular: nl pulses, regular rate and rhythm Gastrointestinal: nl liver, spleen, non-tender, soft Results Result Diagram: 05/05/17 0845 05/06/17 0723 ADRIAN NO MD May 06, 2017 18:15
--- NOTE | 2017-05-06 20:50 | RADRPT ---
PROCEDURE: CT Chest without contrast. CLINICAL INDICATION: Loculated pleural effusions. TECHNIQUE: Multiple contiguous helical CT images of the chest were obtained without the administra tion of intravenous contrast. Coronal and sagittal reformatted images were obtained from the source images. CTDIvol (mGy): 3.70; Total Exam DLP (mGy-cm): 115.63. One or more of the following dose reduction techniques were utilized: - Automated exposure control. - Adjustment of the mA and/or kV according to patient size. - Use of iterative reconstruction technique. COMPARISON: Chest x-ray 05/05/2017. FINDINGS: Limited imaging of the lower neck demonstrates heterogeneity of the thyroid gland. The heart is not enlarged. There is no pericardial effusion. There is no mediastinal, hilar or axi llary lymphadenopathy. The thoracic aorta is normal in caliber. The pulmonary arteries are not enl arged. There is a moderate right pleural effusion with mild concentric pleural thickening, which is grossly unchanged from 05/02/2017. A right chest tube is in place and terminates within the lower aspect of the right major fissure. A trace left pleural effusion is present. Scattered subsegmental atelectas is is seen throughout the lung bases. The tracheobronchial tree is normal in caliber. There is no pn eumothorax. Limited imaging of the upper abdomen demonstrates 2 percutaneous drainage catheters within the liver . Mild heterogeneity of the immediate surrounding hepatic parenchyma is observed. Degenerative changes of the thoracic spine are present. Chest wall soft tissues are unremarkable. IMPRESSION: Moderate right pleural effusion with concentric pleural thickening, grossly unchanged from 7. A right chest tube is in placed and terminates within the inferior aspect of the right major fiss ure, not centered within the pleural effusion. There is no pneumothorax. Bibasilar subsegmental atelectasis. RPTAT: HLST .Neha Smith MD, MD Date Time Electronically viewed and signed by .Neha Smith MD, on 05/06/2017 20:50 .T/
[2017-05-06 22:08] LABS: BASOPHILS % 0.4 % (0.0-2.0); EOSINOPHILS # 0.2 10^3/ul (0.0-0.5); EOSINOPHILS % 1.9 % (0.0-7.0); HEMATOCRIT 28.4 % (37.0-47.0); HEMOGLOBIN 9.1 g/dl (12.0-16.0); LYMPHOCYTES # 2.6 10^3/ul (0.8-2.9); LYMPHOCYTES % 22.8 % (15.0-51.0); MEAN CORPUSCULAR HEMOGLOBIN 29.3 pg (29.0-33.0); MEAN CORPUSCULAR VOLUME 91.3 fl (82.0-101.0); MEAN PLATELET VOLUME 7.9 fl (7.4-10.4); MONOCYTE # 1.2 10^3/ul (0.3-0.9); MONOCYTES % 10.7 % (0.0-11.0); NEUTROPHIL # 7.2 10^3/ul (1.6-7.5); NEUTROPHILS % 63.4 % (39.0-77.0); PLATELET COUNT 538 10^3/UL (140-415); RED BLOOD COUNT 3.11 10^6/ul (4.20-5.40); RED CELL DISTRIBUTION WIDTH 14.1 % (11.5-14.5); WHITE BLOOD COUNT 11.3 10^3/ul (4.8-10.8)
[2017-05-06 22:19] LABS: INR 1.13; PARTIAL THROMBOPLASTIN TIME 35.2 Sec (25.0-35.0); PROTIME 14.5 Sec (12.2-14.2); PT RATIO 1.1
[2017-05-07] VITALS (39 sets, daily range): BP systolic 70–130; BP diastolic 43–90; PULSE 86–110; RESP 11–36
[2017-05-07] MEDS: ACCU-CHEK XX SCH (02:00)
[2017-05-07] MEDS: PANTOPRAZOLE (EC) 40 MG TAB PO SCH (06:00)
[2017-05-07] MEDS: AMPICILLIN/SULB 1.5GM/NS (PMX) 50 ML IVPB SCH ×4 (06:13→23:51)
[2017-05-07] MEDS: FENTAnyl PATCH 12 MCG/HR TRANSDERM SCH (06:13)
[2017-05-07] MEDS: Insulin NOVOLOG SS MILD Algorithm (SS with meals and bedtime) SC SCH ×4 (07:30→17:37)
[2017-05-07] MEDS: FUROSEMIDE 20 MG INJ IV SCH (08:14)
[2017-05-07] MEDS: POTASSIUM CHLORIDE (SR) 20 MEQ TAB PO SCH ×2 (08:14→21:47)
[2017-05-07 08:45] LABS: BASOPHILS % 0.4 % (0.0-2.0); EOSINOPHILS # 0.2 10^3/ul (0.0-0.5); EOSINOPHILS % 1.5 % (0.0-7.0); HEMATOCRIT 27.9 % (37.0-47.0); LYMPHOCYTES # 2.7 10^3/ul (0.8-2.9); LYMPHOCYTES % 26.3 % (15.0-51.0); MEAN CORPUSCULAR HEMOGLOBIN 29.8 pg (29.0-33.0); MEAN CORPUSCULAR HGB CONC 32.3 g/dl (32.0-37.0); MEAN CORPUSCULAR VOLUME 92.4 fl (82.0-101.0); MONOCYTE # 1.3 10^3/ul (0.3-0.9); MONOCYTES % 12.1 % (0.0-11.0); NEUTROPHIL # 6.1 10^3/ul (1.6-7.5); NEUTROPHILS % 58.7 % (39.0-77.0); PLATELET COUNT 578 10^3/UL (140-415); RED BLOOD COUNT 3.02 10^6/ul (4.20-5.40); WHITE BLOOD COUNT 10.4 10^3/ul (4.8-10.8)
[2017-05-07] MEDS: LACTOBACILLUS RHAMNOSUS CAP PO SCH ×2 (09:00→21:46)
[2017-05-07] MEDS: DOCUSATE SODIUM 100 MG CAP PO SCH ×2 (09:00→21:47)
[2017-05-07 09:08] LABS: CALCIUM 9.8 mg/dl (8.4-10.2); CREATININE 0.45 mg/dl (0.44-1.00); POTASSIUM 4.4 mmol/L (3.5-5.1)
--- NOTE | 2017-05-07 10:19 | PN ---
Date/Time of Note Date/Time of Note DATE: 05/07/17 TIME: 10:13 Assessment/Plan VTE Prophylaxis VTE Prophylaxis Intervention: other Lines/Catheters IV Catheter Type (from [facility]): Saline Lock Urinary Cath still in place: No Assessment/Plan Assessment/Plan - Bilateral pleural effusions right more than left, status post right thoracentesis 04/20. S/p right chest tube insertion on 04/[address] Jackson, vascular surgery. S/p right thoracentesis 04/26. - going for VATS today - Acute respiratory failure secondary to #1, Dr. Damico is following in pulmonology consultation continue oxygen oxygen supplementation - Severe sepsis 2/2 to liver abscess, resolving. Continue antibiotics per ID. is following in infection disease consultation - Liver abscess unchanged per recent CT, s/p CT guided drainage 04/15/2017, s/p CT guided percutaneous drainage of liver abscess 04/23, status post CT-guided liver abscess drainage 04/27 - Normocytic anemia requiring blood transfusion - Hx of rectal CA s/p Low anterior resection 08/29/2016 Further recommendations based on clinical course. Plan of care discussed with Dr. Dior Subjective 24 Hr Interval Summary Free Text/Dictation alert, awake, VSS, going for VATS today, c/o shortness of breath , dw staff Constitutional: requiring O2 Respiratory: shortness of breath Cardiovascular: no complaints Gastrointestinal: pain (at drain site ) Musculoskeletal: no complaints Neurologic: no complaints Exam/Review of Systems Vital Signs Vitals Vital Signs Date Time Temp Pulse Resp B/P Pulse Ox O2 Delivery O2 Flow Rate FiO2 05/07/17 08:00 91 05/07/17 08:00 Nasal Cannula 2.0 05/07/17 07:32 97.7 18 110/66 94 Intake and Output 05/06/17 05/06/17 05/07/17 15:00 23:00 07:00 Intake Total 50 ml 850 ml 340 ml Balance 50 ml 850 ml 340 ml Exam Constitutional: alert, oriented Psych: nl mood/affect Respiratory: diminished breath sounds Cardiovascular: nl pulses, other (SR HR 97) Musculoskeletal: nl extremities to inspection Results Result Diagram: 05/07/17 0801 05/07/17 0801 Results 24 hrs Laboratory Tests Test 05/06/17 12:01 05/06/17 17:18 05/06/17 21:29 05/06/17 21:48 Bedside Glucose 126 112 117 White Blood Count 11.3 H Red Blood Count 3.11 L Hemoglobin 9.1 L Hematocrit 28.4 L Mean Corpuscular Volume 91.3 Mean Corpuscular Hemoglobin 29.3 Mean Corpuscular Hemoglobin Concent 32.0 Red Cell Distribution Width 14.1 Platelet Count 538 H Mean Platelet Volume 7.9 Neutrophils % 63.4 Lymphocytes % 22.8 Monocytes % 10.7 Eosinophils % 1.9 Basophils % 0.4 Nucleated Red Blood Cells % 0.0 Neutrophils # 7.2 Lymphocytes # 2.6 Monocytes # 1.2 H Eosinophils # 0.2 Basophils # 0.0 Nucleated Red Blood Cells # 0.0 Prothrombin Time 14.5 H Prothrombin Time Ratio 1.1 INR International Normalized Ratio 1.13 Activated Partial Thromboplast Time 35.2 H Test 05/07/17 08:01 05/07/17 08:08 White Blood Count 10.4 Red Blood Count 3.02 L Hemoglobin 9.0 L Hematocrit 27.9 L Mean Corpuscular Volume 92.4 Mean Corpuscular Hemoglobin 29.8 Mean Corpuscular Hemoglobin Concent 32.3 Red Cell Distribution Width 14.0 Platelet Count 578 H Mean Platelet Volume 8.0 Neutrophils % 58.7 Lymphocytes % 26.3 Monocytes % 12.1 H Eosinophils % 1.5 Basophils % 0.4 Nucleated Red Blood Cells % 0.0 Neutrophils # 6.1 Lymphocytes # 2.7 Monocytes # 1.3 H Eosinophils # 0.2 Basophils # 0.0 Nucleated Red Blood Cells # 0.0 Sodium Level 133 L Potassium Level 4.4 Chloride Level 96 L Carbon Dioxide Level 33 H Anion Gap 8 Blood Urea Nitrogen 13 Creatinine 0.45 Glucose Level 104 Calcium Level 9.8 Bedside Glucose 102 Medications Medications Current Medications Miscellaneous Information 1 ea NOTE XX ; Start 04/13/17 at 21:30 Glucose (Glutose) 15 gm Q15M PRN PO DECREASED GLUCOSE; Start 04/13/17 at 21:30 Glucose (Glutose) 22.5 gm Q15M PRN PO DECREASED GLUCOSE; Start 04/13/17 at 21: 30 Dextrose (D50w Syringe) 25 ml Q15M PRN IV DECREASED GLUCOSE; Start 04/13/17 at 21:30 Dextrose (D50w Syringe) 50 ml Q15M PRN IV DECREASED GLUCOSE; Start 04/13/17 at 21:30 Glucagon (Glucagen) 1 mg Q15M PRN IM DECREASED GLUCOSE; Start 04/13/17 at 21:30 Glucose (Glutose) 15 gm Q15M PRN BUCCAL DECREASED GLUCOSE; Start 04/13/17 at 21 :30 Ondansetron HCl (Zofran Inj) 4 mg Q6 PRN IV NAUSEA AND/OR VOMITING Last administered on 04/26/17 20:25; Admin Dose 4 MG; Start 04/13/17 at 21:30 Guaifenesin/ Dextromethorphan (Robitussin Dm Liquid Cup) 5 ml Q4H PRN PO COUGH Last administered on 04/19/17 05:09; Admin Dose 5 ML; Start 04/15/17 at 16:30 Pantoprazole (Protonix Tab) 40 mg DAILY@06 PO Last administered on 05/06/17 05 :50; Admin Dose 40 MG; Start 04/17/17 at 06:00 Acetaminophen (Tylenol Tab) 500 mg Q6H PRN PO PAIN AND OR ELEVATED TEMP Last administered on 05/06/17 03:25; Admin Dose 500 MG; Start 04/17/17 at 03:00 Magnesium Hydroxide 30 ml 30 ml DAILY PRN PO CONSTIPATION Last administered on 04/28/17 18:33; Admin Dose 30 ML; Start 04/17/17 at 11:30 Ampicillin Sodium/ Sulbactam Sodium (Unasyn 1.5gm/NS (Pmx)) 50 ml @ 100 mls/hr Q6 IVPB Last administered on 05/07/17 06:13; Admin Dose 100 MLS/HR; Start at 18:00 Fentanyl (Duragesic 12 Mcg/Hr Patch) 1 patch Q72H TRANSDERM Last administered on 05/07/17 06:13; Admin Dose 1 PATCH; Start 04/22/17 at 05:30 Morphine Sulfate (morphine) 1 mg Q4H PRN IV SEVERE PAIN LEVEL 7-10 Last administered on 04/26/17 20:25; Admin Dose 1 MG; Start 04/22/17 at 17:30 Metoclopramide HCl (Reglan) 10 mg Q6H PRN IV NAUSEA Last administered on 20:18; Admin Dose 10 MG; Start 04/22/17 at 21:00 Enoxaparin Sodium (Lovenox) 30 mg DAILY SC Last administered on 05/06/17 09:18 ; Admin Dose 30 MG; Start 04/23/17 at 20:30 Acetaminophen (Tylenol Supp) 650 mg Q6H PRN [place] FEVER GREATER THAN 100.6; Start 04/23/17 at 20:30 Acetaminophen (Tylenol Tab) 650 mg Q6H PRN PO PAIN AND OR ELEVATED TEMP Last administered on 05/06/17 09:12; Admin Dose 650 MG; Start 04/23/17 at 20:30 Lactobacillus Acidophilus/ Rhamnosus (Culturelle) 1 cap BID PO Last administered on 05/06/17 21:30; Admin Dose 1 CAP; Start 04/24/17 at 11:30 Diagnostic Test (Pha) (Accu-Chek) 1 ea 02 XX ; Start 04/26/17 at 02:00 Docusate Sodium (Colace) 100 mg BID PO Last administered on 05/06/17 21:30; Admin Dose 100 MG; Start 04/30/17 at 21:00 Furosemide (Lasix) 20 mg BID IV Last administered on 05/07/17 08:14; Admin Dose 20 MG; Start 05/03/17 at 21:00 Potassium Chloride (Klor-Con 20) 20 meq BID PO Last administered on 05/07/17 08:14; Admin Dose 20 MEQ; Start 05/04/17 at 21:00 MESHA VELASQUEZ May 07, 2017 10:19
[2017-05-07] MEDS ORDERED: BUPIVACAINE 0.5%/EPI (SDV) 30 ML INJ ONE (10:43)
[2017-05-07] MEDS ORDERED: BUPIVACAINE 0.5% (SDV) 30 ML INJ ONE (10:43)
[2017-05-07] MEDS ORDERED: MINERAL OIL LIGHT 10 ML VIAL ONE (10:52)
[2017-05-07] MEDS ORDERED: GLYCOPYRROLATE 0.4 MG INJ ONE (10:56)
[2017-05-07] MEDS ORDERED: CEFAZOLIN 1 GM INJ ONE (10:56)
[2017-05-07] MEDS ORDERED: PROPOFOL 20 ML ONE (10:56)
[2017-05-07] MEDS ORDERED: NEOSTIGMINE 3 MG/3 ML SYRINGE ONE (10:56)
[2017-05-07] MEDS ORDERED: ROCURONIUM 50 MG INJ ONE (10:56)
[2017-05-07] MEDS ORDERED: MIDAZOLAM 1 MG/ML 2 ML INJ ONE (10:57)
[2017-05-07] MEDS ORDERED: ONDANSETRON 4 MG INJ ONE (10:57)
[2017-05-07] MEDS ORDERED: DEXAMETHASONE 4 MG/ML 1 ML INJ ONE (10:57)
[2017-05-07] MEDS ORDERED: FENTAnyl 50 MCG/ML VIAL ONE (10:57)
--- NOTE | 2017-05-07 11:04 | CONS ---
Date/Time of Note Date/Time of Note DATE: 05/07/17 TIME: 11:02 Assessment/Plan Assessment/Plan Additional Assessment/Plan CT chest was reviewed from yesterday which is showing bilateral pleural effusions more pronounced in the right lung with partial loculation. Assessment and recommendations; 1. Patient with a history of colon cancer admitted for hepatic abscess status post percutaneous drain placement. 2. Development of bilateral loculated pleural effusions more pronounced on the right lung. Status post chest tube placement without any further drainage through the chest tube with CT imaging of the chest from yesterday showing significant residual pleural effusion which is partly loculated. Continue current treatment. Patient scheduled for VATS procedure on the right side. Consultation Date/Type/Reason Admit Date/Time Apr 13, 2017 at 19:51 Initial Consult Date 04/15/17 Type of Consultation: Pulmonary Referring Provider: DARREL BURT MD 24 HR Interval Summary Free Text/Dictation Patient's condition is stable. Denies any fever, chest pain, shortness of breath or abdominal pain. General exam; elderly woman, awake and alert. Currently in no distress. Exam/Review of Systems Vital Signs Vitals Vital Signs Date Time Temp Pulse Resp B/P Pulse Ox O2 Delivery O2 Flow Rate FiO2 05/07/17 08:00 91 05/07/17 08:00 Nasal Cannula 2.0 05/07/17 07:32 97.7 18 110/66 94 Intake and Output 05/06/17 05/06/17 05/07/17 15:00 23:00 07:00 Intake Total 50 ml 850 ml 340 ml Balance 50 ml 850 ml 340 ml Exam HEENT exam; supple neck, no JVD. No lymphadenopathy. Midline trachea. No thyromegaly. Patient has a multiple carious teeth. Pupils are small bilaterally. Chest exam; diminished breath sounds right lower lobe. Right-sided chest tube in place. Left lung is clear to auscultation. S1-S2 audible, no murmurs. Regular rhythm. Abdomen exam; soft, right upper quadrant drain in place. Bowel sounds audible. Abdomen is nontender. No organomegaly. Extremity exam; no peripheral edema. 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 Results Result Diagram: 05/07/17 0801 05/07/17 0801 Results 24 hrs Laboratory Tests Test 05/06/17 12:01 05/06/17 17:18 05/06/17 21:29 05/06/17 21:48 Bedside Glucose 126 112 117 White Blood Count 11.3 H Red Blood Count 3.11 L Hemoglobin 9.1 L Hematocrit 28.4 L Mean Corpuscular Volume 91.3 Mean Corpuscular Hemoglobin 29.3 Mean Corpuscular Hemoglobin Concent 32.0 Red Cell Distribution Width 14.1 Platelet Count 538 H Mean Platelet Volume 7.9 Neutrophils % 63.4 Lymphocytes % 22.8 Monocytes % 10.7 Eosinophils % 1.9 Basophils % 0.4 Nucleated Red Blood Cells % 0.0 Neutrophils # 7.2 Lymphocytes # 2.6 Monocytes # 1.2 H Eosinophils # 0.2 Basophils # 0.0 Nucleated Red Blood Cells # 0.0 Prothrombin Time 14.5 H Prothrombin Time Ratio 1.1 INR International Normalized Ratio 1.13 Activated Partial Thromboplast Time 35.2 H Test 05/07/17 08:01 05/07/17 08:08 White Blood Count 10.4 Red Blood Count 3.02 L Hemoglobin 9.0 L Hematocrit 27.9 L Mean Corpuscular Volume 92.4 Mean Corpuscular Hemoglobin 29.8 Mean Corpuscular Hemoglobin Concent 32.3 Red Cell Distribution Width 14.0 Platelet Count 578 H Mean Platelet Volume 8.0 Neutrophils % 58.7 Lymphocytes % 26.3 Monocytes % 12.1 H Eosinophils % 1.5 Basophils % 0.4 Nucleated Red Blood Cells % 0.0 Neutrophils # 6.1 Lymphocytes # 2.7 Monocytes # 1.3 H Eosinophils # 0.2 Basophils # 0.0 Nucleated Red Blood Cells # 0.0 Sodium Level 133 L Potassium Level 4.4 Chloride Level 96 L Carbon Dioxide Level 33 H Anion Gap 8 Blood Urea Nitrogen 13 Creatinine 0.45 Glucose Level 104 Calcium Level 9.8 Bedside Glucose 102 Medications Medications Current Medications Miscellaneous Information 1 ea NOTE XX ; Start 04/13/17 at 21:30 Glucose (Glutose) 15 gm Q15M PRN PO DECREASED GLUCOSE; Start 04/13/17 at 21:30 Glucose (Glutose) 22.5 gm Q15M PRN PO DECREASED GLUCOSE; Start 04/13/17 at 21: 30 Dextrose (D50w Syringe) 25 ml Q15M PRN IV DECREASED GLUCOSE; Start 04/13/17 at 21:30 Dextrose (D50w Syringe) 50 ml Q15M PRN IV DECREASED GLUCOSE; Start 04/13/17 at 21:30 Glucagon (Glucagen) 1 mg Q15M PRN IM DECREASED GLUCOSE; Start 04/13/17 at 21:30 Glucose (Glutose) 15 gm Q15M PRN BUCCAL DECREASED GLUCOSE; Start 04/13/17 at 21 :30 Ondansetron HCl (Zofran Inj) 4 mg Q6 PRN IV NAUSEA AND/OR VOMITING Last administered on 04/26/17 20:25; Admin Dose 4 MG; Start 04/13/17 at 21:30 Guaifenesin/ Dextromethorphan (Robitussin Dm Liquid Cup) 5 ml Q4H PRN PO COUGH Last administered on 04/19/17 05:09; Admin Dose 5 ML; Start 04/15/17 at 16:30 Pantoprazole (Protonix Tab) 40 mg DAILY@06 PO Last administered on 05/06/17 05 :50; Admin Dose 40 MG; Start 04/17/17 at 06:00 Acetaminophen (Tylenol Tab) 500 mg Q6H PRN PO PAIN AND OR ELEVATED TEMP Last administered on 05/06/17 03:25; Admin Dose 500 MG; Start 04/17/17 at 03:00 Magnesium Hydroxide 30 ml 30 ml DAILY PRN PO CONSTIPATION Last administered on 04/28/17 18:33; Admin Dose 30 ML; Start 04/17/17 at 11:30 Ampicillin Sodium/ Sulbactam Sodium (Unasyn 1.5gm/NS (Pmx)) 50 ml @ 100 mls/hr Q6 IVPB Last administered on 05/07/17 06:13; Admin Dose 100 MLS/HR; Start at 18:00 Fentanyl (Duragesic 12 Mcg/Hr Patch) 1 patch Q72H TRANSDERM Last administered on 05/07/17 06:13; Admin Dose 1 PATCH; Start 04/22/17 at 05:30 Morphine Sulfate (morphine) 1 mg Q4H PRN IV SEVERE PAIN LEVEL 7-10 Last administered on 04/26/17 20:25; Admin Dose 1 MG; Start 04/22/17 at 17:30 Metoclopramide HCl (Reglan) 10 mg Q6H PRN IV NAUSEA Last administered on 20:18; Admin Dose 10 MG; Start 04/22/17 at 21:00 Enoxaparin Sodium (Lovenox) 30 mg DAILY SC Last administered on 05/06/17 09:18 ; Admin Dose 30 MG; Start 04/23/17 at 20:30 Acetaminophen (Tylenol Supp) 650 mg Q6H PRN [place] FEVER GREATER THAN 100.6; Start 04/23/17 at 20:30 Acetaminophen (Tylenol Tab) 650 mg Q6H PRN PO PAIN AND OR ELEVATED TEMP Last administered on 05/06/17 09:12; Admin Dose 650 MG; Start 04/23/17 at 20:30 Lactobacillus Acidophilus/ Rhamnosus (Culturelle) 1 cap BID PO Last administered on 05/06/17 21:30; Admin Dose 1 CAP; Start 04/24/17 at 11:30 Diagnostic Test (Pha) (Accu-Chek) 1 ea 02 XX ; Start 04/26/17 at 02:00 Docusate Sodium (Colace) 100 mg BID PO Last administered on 05/06/17 21:30; Admin Dose 100 MG; Start 04/30/17 at 21:00 Furosemide (Lasix) 20 mg BID IV Last administered on 05/07/17 08:14; Admin Dose 20 MG; Start 05/03/17 at 21:00 Potassium Chloride (Klor-Con 20) 20 meq BID PO Last administered on 05/07/17 08:14; Admin Dose 20 MEQ; Start 05/04/17 at 21:00 LINDA GARCIA May 07, 2017 11:04
--- NOTE | 2017-05-07 11:21 | CONS ---
Date/Time of Note Date/Time of Note DATE: 05/07/17 TIME: 11:21 Assessment/Plan Assessment/Plan Chief Complaint/Hosp Course Problems: Additional Assessment/Plan 1. Bilateral pleural effusions right more than left, status post right thoracentesis 04/20. S/p right chest tube insertion on 04/[address] Jackson, vascular surgery. S/p right thoracentesis 04/26. - going for VATS today 2. Acute hyponatremia 2/2 Hypovolemic hyponatremia - Resolved 2. sepsis due to liver abscess 3. Hepatic abscess oN CT scan s/p CT guided drainage on 04/15/17 and 04/23/17 4. Acute transaminitis 5. h/o Colon CA s/p previous Surgery 6. Hypokalemia 7. acute resp failiue due to # 1 Plan : Na 133, cr normal, pt is on IV lasix for CHF and pulmonary congestion. IV abx as per ID, will make sure it is renally dosed plna for VATS Decortication today pulmonary ID and G surgery has been following on patient. will follow up Consultation Date/Type/Reason Admit Date/Time Apr 13, 2017 at 19:51 Initial Consult Date 04/13/17 Type of Consultation: NEPHROLOGY Referring Provider: DARREL BURT MD 24 HR Interval Summary Free Text/Dictation plan for VATS Decortication , admitted to ICU Exam/Review of Systems Vital Signs Vitals Vital Signs Date Time Temp Pulse Resp B/P Pulse Ox O2 Delivery O2 Flow Rate FiO2 05/07/17 08:00 91 05/07/17 08:00 Nasal Cannula 2.0 05/07/17 07:32 97.7 18 110/66 94 Intake and Output 05/06/17 05/06/17 05/07/17 15:00 23:00 07:00 Intake Total 50 ml 850 ml 340 ml Balance 50 ml 850 ml 340 ml Exam Constitutional: alert, frail, oriented Respiratory: diminished breath sounds, other (chest tube) Cardiovascular: nl pulses, regular rate and rhythm Gastrointestinal: other (external draiange catheters) Musculoskeletal: nl extremities to inspection Extremities: No edema 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, 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 Results Result Diagram: 05/07/17 0801 05/07/17 0801 Results 24 hrs Laboratory Tests Test 05/06/17 12:01 05/06/17 17:18 05/06/17 21:29 05/06/17 21:48 Bedside Glucose 126 112 117 White Blood Count 11.3 H Red Blood Count 3.11 L Hemoglobin 9.1 L Hematocrit 28.4 L Mean Corpuscular Volume 91.3 Mean Corpuscular Hemoglobin 29.3 Mean Corpuscular Hemoglobin Concent 32.0 Red Cell Distribution Width 14.1 Platelet Count 538 H Mean Platelet Volume 7.9 Neutrophils % 63.4 Lymphocytes % 22.8 Monocytes % 10.7 Eosinophils % 1.9 Basophils % 0.4 Nucleated Red Blood Cells % 0.0 Neutrophils # 7.2 Lymphocytes # 2.6 Monocytes # 1.2 H Eosinophils # 0.2 Basophils # 0.0 Nucleated Red Blood Cells # 0.0 Prothrombin Time 14.5 H Prothrombin Time Ratio 1.1 INR International Normalized Ratio 1.13 Activated Partial Thromboplast Time 35.2 H Test 05/07/17 08:01 05/07/17 08:08 White Blood Count 10.4 Red Blood Count 3.02 L Hemoglobin 9.0 L Hematocrit 27.9 L Mean Corpuscular Volume 92.4 Mean Corpuscular Hemoglobin 29.8 Mean Corpuscular Hemoglobin Concent 32.3 Red Cell Distribution Width 14.0 Platelet Count 578 H Mean Platelet Volume 8.0 Neutrophils % 58.7 Lymphocytes % 26.3 Monocytes % 12.1 H Eosinophils % 1.5 Basophils % 0.4 Nucleated Red Blood Cells % 0.0 Neutrophils # 6.1 Lymphocytes # 2.7 Monocytes # 1.3 H Eosinophils # 0.2 Basophils # 0.0 Nucleated Red Blood Cells # 0.0 Sodium Level 133 L Potassium Level 4.4 Chloride Level 96 L Carbon Dioxide Level 33 H Anion Gap 8 Blood Urea Nitrogen 13 Creatinine 0.45 Glucose Level 104 Calcium Level 9.8 Bedside Glucose 102 Medications Medications Current Medications Miscellaneous Information 1 ea NOTE XX ; Start 04/13/17 at 21:30 Glucose (Glutose) 15 gm Q15M PRN PO DECREASED GLUCOSE; Start 04/13/17 at 21:30 Glucose (Glutose) 22.5 gm Q15M PRN PO DECREASED GLUCOSE; Start 04/13/17 at 21: 30 Dextrose (D50w Syringe) 25 ml Q15M PRN IV DECREASED GLUCOSE; Start 04/13/17 at 21:30 Dextrose (D50w Syringe) 50 ml Q15M PRN IV DECREASED GLUCOSE; Start 04/13/17 at 21:30 Glucagon (Glucagen) 1 mg Q15M PRN IM DECREASED GLUCOSE; Start 04/13/17 at 21:30 Glucose (Glutose) 15 gm Q15M PRN BUCCAL DECREASED GLUCOSE; Start 04/13/17 at 21 :30 Ondansetron HCl (Zofran Inj) 4 mg Q6 PRN IV NAUSEA AND/OR VOMITING Last administered on 04/26/17 20:25; Admin Dose 4 MG; Start 04/13/17 at 21:30 Guaifenesin/ Dextromethorphan (Robitussin Dm Liquid Cup) 5 ml Q4H PRN PO COUGH Last administered on 04/19/17 05:09; Admin Dose 5 ML; Start 04/15/17 at 16:30 Pantoprazole (Protonix Tab) 40 mg DAILY@06 PO Last administered on 05/06/17 05 :50; Admin Dose 40 MG; Start 04/17/17 at 06:00 Acetaminophen (Tylenol Tab) 500 mg Q6H PRN PO PAIN AND OR ELEVATED TEMP Last administered on 05/06/17 03:25; Admin Dose 500 MG; Start 04/17/17 at 03:00 Magnesium Hydroxide 30 ml 30 ml DAILY PRN PO CONSTIPATION Last administered on 04/28/17 18:33; Admin Dose 30 ML; Start 04/17/17 at 11:30 Ampicillin Sodium/ Sulbactam Sodium (Unasyn 1.5gm/NS (Pmx)) 50 ml @ 100 mls/hr Q6 IVPB Last administered on 05/07/17 06:13; Admin Dose 100 MLS/HR; Start at 18:00 Fentanyl (Duragesic 12 Mcg/Hr Patch) 1 patch Q72H TRANSDERM Last administered on 05/07/17 06:13; Admin Dose 1 PATCH; Start 04/22/17 at 05:30 Morphine Sulfate (morphine) 1 mg Q4H PRN IV SEVERE PAIN LEVEL 7-10 Last administered on 04/26/17 20:25; Admin Dose 1 MG; Start 04/22/17 at 17:30 Metoclopramide HCl (Reglan) 10 mg Q6H PRN IV NAUSEA Last administered on 20:18; Admin Dose 10 MG; Start 04/22/17 at 21:00 Enoxaparin Sodium (Lovenox) 30 mg DAILY SC Last administered on 05/06/17 09:18 ; Admin Dose 30 MG; Start 04/23/17 at 20:30 Acetaminophen (Tylenol Supp) 650 mg Q6H PRN [place] FEVER GREATER THAN 100.6; Start 04/23/17 at 20:30 Acetaminophen (Tylenol Tab) 650 mg Q6H PRN PO PAIN AND OR ELEVATED TEMP Last administered on 05/06/17 09:12; Admin Dose 650 MG; Start 04/23/17 at 20:30 Lactobacillus Acidophilus/ Rhamnosus (Culturelle) 1 cap BID PO Last administered on 05/06/17 21:30; Admin Dose 1 CAP; Start 04/24/17 at 11:30 Diagnostic Test (Pha) (Accu-Chek) 1 ea 02 XX ; Start 04/26/17 at 02:00 Docusate Sodium (Colace) 100 mg BID PO Last administered on 05/06/17 21:30; Admin Dose 100 MG; Start 04/30/17 at 21:00 Furosemide (Lasix) 20 mg BID IV Last administered on 05/07/17 08:14; Admin Dose 20 MG; Start 05/03/17 at 21:00 Potassium Chloride (Klor-Con 20) 20 meq BID PO Last administered on 05/07/17 08:14; Admin Dose 20 MEQ; Start 05/04/17 at 21:00 NGOC GARZA MD May 07, 2017 11:21
--- NOTE | 2017-05-07 11:29 | CONS ---
Date/Time of Note Date/Time of Note DATE: 05/07/17 TIME: : Assessment/Plan Assessment/Plan Chief Complaint/Hosp Course - severe sepsis due to pyogenic liver abscess, loculated pleural effusion--> CXR on 05/05/2017 showed re-cumulation of the fluid - multiloculated pyogenic liver abscess s/p CT guided drainage catheter placement 04/15/2017, 04/23/2017, s/p repeat drainage 04/27/2017; cultures from gamma hemolytic strep, cultures from 04/23/2017 alpha hemolytic strep - loculated pleural effusion likely secondary to hepatic process/Hepatic hydrothorax, R>L, s/p R thoracentesis on 04/20/2017, s/p chest tube placement on 04/22/2017 - intermittent diarrhea - normocytic anemia requiring blood transfusion - coagulopathy, improved - Transaminitis, improved - Hyponatremia - CoNS in urine culture with trivial pyuria, likely contaminant - Hx of rectal CA s/p Low anterior resection 08/29/2016 - Severe protein calorie malnutrition - allergy to vancomycin recommendations: - I called OR charge nurses personally and requested that my orders of cultures and cytology be sent from VATS today - continue amp/sulbactam (04/18/2017-); s/p linezolid and pip/tazo (04/13-2016). - I will adjust her antibiotic if needed based on the new cultures from VATS today - we recommend long-term (6 weeks at least) antibiotic administration; we recommend repeat imaging prior to antibiotic cessation to ensure resolution management d/w OR nurses Problems: Consultation Date/Type/Reason Admit Date/Time Apr 13, 2017 at 19:51 Initial Consult Date 04/21/17 Type of Consultation: ID Referring Provider: DARREL BURT MD 24 HR Interval Summary Free Text/Dictation Pt was taken to OR for VATS Exam/Review of Systems Vital Signs Vitals Vital Signs Date Time Temp Pulse Resp B/P Pulse Ox O2 Delivery O2 Flow Rate FiO2 05/07/17 08:00 91 05/07/17 08:00 Nasal Cannula 2.0 05/07/17 07:32 97.7 18 110/66 94 Intake and Output 05/06/17 05/06/17 05/07/17 15:00 23:00 07:00 Intake Total 50 ml 850 ml 340 ml Balance 50 ml 850 ml 340 ml Exam Pt was taken to OR for VATS Results Result Diagram: 05/07/17 0801 05/07/17 0801 Results 24 hrs Laboratory Tests Test 05/06/17 12:01 05/06/17 17:18 05/06/17 21:29 05/06/17 21:48 Bedside Glucose 126 112 117 White Blood Count 11.3 H Red Blood Count 3.11 L Hemoglobin 9.1 L Hematocrit 28.4 L Mean Corpuscular Volume 91.3 Mean Corpuscular Hemoglobin 29.3 Mean Corpuscular Hemoglobin Concent 32.0 Red Cell Distribution Width 14.1 Platelet Count 538 H Mean Platelet Volume 7.9 Neutrophils % 63.4 Lymphocytes % 22.8 Monocytes % 10.7 Eosinophils % 1.9 Basophils % 0.4 Nucleated Red Blood Cells % 0.0 Neutrophils # 7.2 Lymphocytes # 2.6 Monocytes # 1.2 H Eosinophils # 0.2 Basophils # 0.0 Nucleated Red Blood Cells # 0.0 Prothrombin Time 14.5 H Prothrombin Time Ratio 1.1 INR International Normalized Ratio 1.13 Activated Partial Thromboplast Time 35.2 H Test 05/07/17 08:01 05/07/17 08:08 White Blood Count 10.4 Red Blood Count 3.02 L Hemoglobin 9.0 L Hematocrit 27.9 L Mean Corpuscular Volume 92.4 Mean Corpuscular Hemoglobin 29.8 Mean Corpuscular Hemoglobin Concent 32.3 Red Cell Distribution Width 14.0 Platelet Count 578 H Mean Platelet Volume 8.0 Neutrophils % 58.7 Lymphocytes % 26.3 Monocytes % 12.1 H Eosinophils % 1.5 Basophils % 0.4 Nucleated Red Blood Cells % 0.0 Neutrophils # 6.1 Lymphocytes # 2.7 Monocytes # 1.3 H Eosinophils # 0.2 Basophils # 0.0 Nucleated Red Blood Cells # 0.0 Sodium Level 133 L Potassium Level 4.4 Chloride Level 96 L Carbon Dioxide Level 33 H Anion Gap 8 Blood Urea Nitrogen 13 Creatinine 0.45 Glucose Level 104 Calcium Level 9.8 Bedside Glucose 102 Medications Medications Current Medications Miscellaneous Information 1 ea NOTE XX ; Start 04/13/17 at 21:30 Glucose (Glutose) 15 gm Q15M PRN PO DECREASED GLUCOSE; Start 04/13/17 at 21:30 Glucose (Glutose) 22.5 gm Q15M PRN PO DECREASED GLUCOSE; Start 04/13/17 at 21: 30 Dextrose (D50w Syringe) 25 ml Q15M PRN IV DECREASED GLUCOSE; Start 04/13/17 at 21:30 Dextrose (D50w Syringe) 50 ml Q15M PRN IV DECREASED GLUCOSE; Start 04/13/17 at 21:30 Glucagon (Glucagen) 1 mg Q15M PRN IM DECREASED GLUCOSE; Start 04/13/17 at 21:30 Glucose (Glutose) 15 gm Q15M PRN BUCCAL DECREASED GLUCOSE; Start 04/13/17 at 21 :30 Ondansetron HCl (Zofran Inj) 4 mg Q6 PRN IV NAUSEA AND/OR VOMITING Last administered on 04/26/17 20:25; Admin Dose 4 MG; Start 04/13/17 at 21:30 Guaifenesin/ Dextromethorphan (Robitussin Dm Liquid Cup) 5 ml Q4H PRN PO COUGH Last administered on 04/19/17 05:09; Admin Dose 5 ML; Start 04/15/17 at 16:30 Pantoprazole (Protonix Tab) 40 mg DAILY@06 PO Last administered on 05/06/17 05 :50; Admin Dose 40 MG; Start 04/17/17 at 06:00 Acetaminophen (Tylenol Tab) 500 mg Q6H PRN PO PAIN AND OR ELEVATED TEMP Last administered on 05/06/17 03:25; Admin Dose 500 MG; Start 04/17/17 at 03:00 Magnesium Hydroxide 30 ml 30 ml DAILY PRN PO CONSTIPATION Last administered on 04/28/17 18:33; Admin Dose 30 ML; Start 04/17/17 at 11:30 Ampicillin Sodium/ Sulbactam Sodium (Unasyn 1.5gm/NS (Pmx)) 50 ml @ 100 mls/hr Q6 IVPB Last administered on 05/07/17 06:13; Admin Dose 100 MLS/HR; Start at 18:00 Fentanyl (Duragesic 12 Mcg/Hr Patch) 1 patch Q72H TRANSDERM Last administered on 05/07/17 06:13; Admin Dose 1 PATCH; Start 04/22/17 at 05:30 Morphine Sulfate (morphine) 1 mg Q4H PRN IV SEVERE PAIN LEVEL 7-10 Last administered on 04/26/17 20:25; Admin Dose 1 MG; Start 04/22/17 at 17:30 Metoclopramide HCl (Reglan) 10 mg Q6H PRN IV NAUSEA Last administered on 20:18; Admin Dose 10 MG; Start 04/22/17 at 21:00 Enoxaparin Sodium (Lovenox) 30 mg DAILY SC Last administered on 05/06/17 09:18 ; Admin Dose 30 MG; Start 04/23/17 at 20:30 Acetaminophen (Tylenol Supp) 650 mg Q6H PRN [place] FEVER GREATER THAN 100.6; Start 04/23/17 at 20:30 Acetaminophen (Tylenol Tab) 650 mg Q6H PRN PO PAIN AND OR ELEVATED TEMP Last administered on 05/06/17 09:12; Admin Dose 650 MG; Start 04/23/17 at 20:30 Lactobacillus Acidophilus/ Rhamnosus (Culturelle) 1 cap BID PO Last administered on 05/06/17 21:30; Admin Dose 1 CAP; Start 04/24/17 at 11:30 Diagnostic Test (Pha) (Accu-Chek) 1 ea 02 XX ; Start 04/26/17 at 02:00 Docusate Sodium (Colace) 100 mg BID PO Last administered on 05/06/17 21:30; Admin Dose 100 MG; Start 04/30/17 at 21:00 Furosemide (Lasix) 20 mg BID IV Last administered on 05/07/17 08:14; Admin Dose 20 MG; Start 05/03/17 at 21:00 Potassium Chloride (Klor-Con 20) 20 meq BID PO Last administered on 05/07/17 08:14; Admin Dose 20 MEQ; Start 05/04/17 at 21:00 AARON ANSARI M.D. May 07, 2017 11:29
[2017-05-07] MEDS ORDERED: ROPIVACAINE 0.2% 20 ML VIAL ONE (12:01)
[2017-05-07] MEDS ORDERED: PHENYLephrine (100 MCG/ML) 5ML SYG ONE (12:55)
[2017-05-07] MEDS ORDERED: DIPHENHYDRAMINE 50 MG INJ IV PRN ×2 (13:30)
[2017-05-07] MEDS ORDERED: LABETALOL HCL 20MG INJ IV PRN (13:30)
[2017-05-07] MEDS ORDERED: ALBUTEROL 0.083% (NEB) 2.5 MG/3 ML AMP HHN PRN (13:30)
[2017-05-07] MEDS ORDERED: NALOXONE (0.4 MG/ML) INJ IV PRN (13:30)
[2017-05-07] MEDS ORDERED: NALBUPHINE HCL (10 MG/1 ML) INJ IV PRN (13:30)
[2017-05-07] MEDS ORDERED: MEPERIDINE 25 MG INJ IV PRN (13:30)
[2017-05-07] MEDS ORDERED: ONDANSETRON 4 MG INJ IV PRN ×2 (13:30)
[2017-05-07] MEDS ORDERED: FENTAnyl 50 MCG/ML VIAL IV PRN ×3 (13:30)
[2017-05-07] MEDS ORDERED: HYDROmorphONE (0.2 MG/ML) 10ML SYG IV PRN ×3 (13:30)
[2017-05-07] MEDS ORDERED: EPHEDrine SULFATE 50 MG/5 ML SYG IV PRN (13:30)
[2017-05-07] MEDS ORDERED: HYDROmorphONE 1 MG/ML SYG IV PRN (13:30)
[2017-05-07] MEDS ORDERED: hydrALAzine 20 MG INJ IV PRN (13:30)
[2017-05-07] MEDS ORDERED: SUGAMMADEX SODIUM 200 MG/2 ML VIAL IV ONE (13:30)
[2017-05-07] MEDS ORDERED: IPRATROPIUM (NEB) 0.5 MG/2.5 ML AMP HHN PRN (13:30)
[2017-05-07] MEDS ORDERED: MIDAZOLAM 1 MG/ML 2 ML INJ IV PRN (13:30)
[2017-05-07] MEDS ORDERED: TRIMETHOBENZAMIDE 100 MG/ML VIAL IM PRN ×2 (13:30)
[2017-05-07] MEDS ORDERED: FENTAnyl 2MCG/ML-ROPIV 0.2% 100 ML ONE (13:32)
--- NOTE | 2017-05-07 13:40 | OPR ---
Date/Time of Note Date/Time of Note DATE: 05/07/17 TIME: 13:35 Operative Report Procedure Date: May 07, 2017 Preoperative Diagnosis Right pleural effusion Postoperative Diagnosis same Operation/Procedure Performed R VATS Decortication Surgeon see signature line [employer] Manager none Anesthesia Type: general Estimated Blood Loss: 100 - 150 ml's Transfusion none Specimen Peel Grafts/Implants none Tubes/Drains CT Complications none Pt Condition Post Procedure: critical Indications Right pleural effusion Procedure Description Dictated ADRIAN NO MD May 07, 2017 13:40
--- NOTE | 2017-05-07 14:21 | CONS ---
Date/Time of Note Date/Time of Note DATE: 05/07/17 TIME: 14:19 Assessment/Plan Assessment/Plan Chief Complaint/Hosp Course IMP: 1.Hypotension-borderline/stable 2.abnl ecg-negative trop x 3/NL EF by echo. NO CP 3.Liver abscess s/p CT guided drainage 4.H/O lung ca s/p resection with lung nodules by CT? 5.Lung nodules 6. Hyponatremia 7. Effusion s/p VATS/decortication 8. HYpokalemia Recc: -Now trasnferred to ICU s/p VATS/decortication -Continue abx's -F/U cx data -Follow BP closely -pain control -Continue lasix which I will decrease to daily and follow volume status/NA closely Problems: Consultation Date/Type/Reason Admit Date/Time Apr 13, 2017 at 19:51 Initial Consult Date 04/13/17 Type of Consultation: cardiology Reason for Consultation hypotension Referring Provider: DARREL BURT MD Exam/Review of Systems Vital Signs Vitals Vital Signs Date Time Temp Pulse Resp B/P Pulse Ox O2 Delivery O2 Flow Rate FiO2 05/07/17 08:00 91 05/07/17 08:00 Nasal Cannula 2.0 05/07/17 07:32 97.7 18 110/66 94 Intake and Output 05/06/17 05/06/17 05/07/17 15:00 23:00 07:00 Intake Total 50 ml 850 ml 340 ml Balance 50 ml 850 ml 340 ml Exam Review of Systems: CONSTITUTIONAL: No fevers, chills. PULMONARY: s/p decortication/VATS CARDIOVASCULAR: No chest pain/palpitations GASTROINTESTINAL: No nausea/vomiting. GENITOURINARY: No hematuria/dysuria. MUSCULOSKELETAL: No myagias/arthalgias. PSYCHIATRIC: The patient denies depression. NEUROLOGIC: No weakness Constitutional: alert Psych: no complaints Head: normocephalic ENMT: mucosa pink and moist Neck: jvd (9 cm water), supple Respiratory: diminished breath sounds (at bases/B) Cardiovascular: regular rate and rhythm Gastrointestinal: non-tender, soft Musculoskeletal: muscle weakness (mild generalized) Extremities: edema (none) Results Result Diagram: 05/07/17 0801 05/07/17 0801 Results 24 hrs Laboratory Tests Test 05/06/17 17:18 05/06/17 21:29 05/06/17 21:48 05/07/17 08:01 Bedside Glucose 112 117 White Blood Count 11.3 H 10.4 Red Blood Count 3.11 L 3.02 L Hemoglobin 9.1 L 9.0 L Hematocrit 28.4 L 27.9 L Mean Corpuscular Volume 91.3 92.4 Mean Corpuscular Hemoglobin 29.3 29.8 Mean Corpuscular Hemoglobin Concent 32.0 32.3 Red Cell Distribution Width 14.1 14.0 Platelet Count 538 H 578 H Mean Platelet Volume 7.9 8.0 Neutrophils % 63.4 58.7 Lymphocytes % 22.8 26.3 Monocytes % 10.7 12.1 H Eosinophils % 1.9 1.5 Basophils % 0.4 0.4 Nucleated Red Blood Cells % 0.0 0.0 Neutrophils # 7.2 6.1 Lymphocytes # 2.6 2.7 Monocytes # 1.2 H 1.3 H Eosinophils # 0.2 0.2 Basophils # 0.0 0.0 Nucleated Red Blood Cells # 0.0 0.0 Prothrombin Time 14.5 H Prothrombin Time Ratio 1.1 INR International Normalized Ratio 1.13 Activated Partial Thromboplast Time 35.2 H Sodium Level 133 L Potassium Level 4.4 Chloride Level 96 L Carbon Dioxide Level 33 H Anion Gap 8 Blood Urea Nitrogen 13 Creatinine 0.45 Glucose Level 104 Calcium Level 9.8 Test 05/07/17 08:08 Bedside Glucose 102 Medications Medications Current Medications Miscellaneous Information 1 ea NOTE XX ; Start 04/13/17 at 21:30 Glucose (Glutose) 15 gm Q15M PRN PO DECREASED GLUCOSE; Start 04/13/17 at 21:30 Glucose (Glutose) 22.5 gm Q15M PRN PO DECREASED GLUCOSE; Start 04/13/17 at 21: 30 Dextrose (D50w Syringe) 25 ml Q15M PRN IV DECREASED GLUCOSE; Start 04/13/17 at 21:30 Dextrose (D50w Syringe) 50 ml Q15M PRN IV DECREASED GLUCOSE; Start 04/13/17 at 21:30 Glucagon (Glucagen) 1 mg Q15M PRN IM DECREASED GLUCOSE; Start 04/13/17 at 21:30 Glucose (Glutose) 15 gm Q15M PRN BUCCAL DECREASED GLUCOSE; Start 04/13/17 at 21 :30 Ondansetron HCl (Zofran Inj) 4 mg Q6 PRN IV NAUSEA AND/OR VOMITING Last administered on 04/26/17 20:25; Admin Dose 4 MG; Start 04/13/17 at 21:30 Guaifenesin/ Dextromethorphan (Robitussin Dm Liquid Cup) 5 ml Q4H PRN PO COUGH Last administered on 04/19/17 05:09; Admin Dose 5 ML; Start 04/15/17 at 16:30 Pantoprazole (Protonix Tab) 40 mg DAILY@06 PO Last administered on 05/06/17 05 :50; Admin Dose 40 MG; Start 04/17/17 at 06:00 Acetaminophen (Tylenol Tab) 500 mg Q6H PRN PO PAIN AND OR ELEVATED TEMP Last administered on 05/06/17 03:25; Admin Dose 500 MG; Start 04/17/17 at 03:00 Magnesium Hydroxide 30 ml 30 ml DAILY PRN PO CONSTIPATION Last administered on 04/28/17 18:33; Admin Dose 30 ML; Start 04/17/17 at 11:30 Ampicillin Sodium/ Sulbactam Sodium (Unasyn 1.5gm/NS (Pmx)) 50 ml @ 100 mls/hr Q6 IVPB Last administered on 05/07/17 06:13; Admin Dose 100 MLS/HR; Start at 18:00 Fentanyl (Duragesic 12 Mcg/Hr Patch) 1 patch Q72H TRANSDERM Last administered on 05/07/17 06:13; Admin Dose 1 PATCH; Start 04/22/17 at 05:30 Morphine Sulfate (morphine) 1 mg Q4H PRN IV SEVERE PAIN LEVEL 7-10 Last administered on 04/26/17 20:25; Admin Dose 1 MG; Start 04/22/17 at 17:30 Metoclopramide HCl (Reglan) 10 mg Q6H PRN IV NAUSEA Last administered on 20:18; Admin Dose 10 MG; Start 04/22/17 at 21:00 Enoxaparin Sodium (Lovenox) 30 mg DAILY SC Last administered on 05/06/17 09:18 ; Admin Dose 30 MG; Start 04/23/17 at 20:30 Acetaminophen (Tylenol Supp) 650 mg Q6H PRN [place] FEVER GREATER THAN 100.6; Start 04/23/17 at 20:30 Acetaminophen (Tylenol Tab) 650 mg Q6H PRN PO PAIN AND OR ELEVATED TEMP Last administered on 05/06/17 09:12; Admin Dose 650 MG; Start 04/23/17 at 20:30 Lactobacillus Acidophilus/ Rhamnosus (Culturelle) 1 cap BID PO Last administered on 05/06/17 21:30; Admin Dose 1 CAP; Start 04/24/17 at 11:30 Diagnostic Test (Pha) (Accu-Chek) 1 ea 02 XX ; Start 04/26/17 at 02:00 Docusate Sodium (Colace) 100 mg BID PO Last administered on 05/06/17 21:30; Admin Dose 100 MG; Start 04/30/17 at 21:00 Furosemide (Lasix) 20 mg BID IV Last administered on 05/07/17 08:14; Admin Dose 20 MG; Start 05/03/17 at 21:00 Potassium Chloride (Klor-Con 20) 20 meq BID PO Last administered on 05/07/17 08:14; Admin Dose 20 MEQ; Start 05/04/17 at 21:00 Hydromorphone HCl (Dilaudid) 0.2 mg Q2H PRN IV PAIN LEVEL 1-5; Start 05/07/17 at 13:30; Status UNV Hydromorphone HCl (Dilaudid) 0.4 mg Q2H PRN IV PAIN LEVEL 6-10; Start 05/07/17 at 13:30; Stop 05/07/17 at 18:00 Diphenhydramine HCl (Benadryl) 25 mg Q4H PRN IV PRURITUS; Start 05/07/17 at 13: 30; Stop 05/07/17 at 18:00 Nalbuphine HCl (Nubain) 10 mg Q4H PRN IV PRURITUS; Start 05/07/17 at 13:30 Ondansetron HCl (Zofran Inj) 4 mg Q6H PRN IV NAUSEA AND/OR VOMITING; Start 05/07/17 at 13:30 Trimethobenzamide HCl (Tigan) 200 mg Q6H PRN IM NAUSEA AND/OR VOMITING; Start 05/07/17 at 13:30; Status UNV Naloxone HCl (Narcan) 0.2 mg Q2M PRN IV FOR RESP RATE 8 OR LESS; Start at 13:30; Status UNV LILIANA BARKSDAEL May 07, 2017 14:21
[2017-05-07] MEDS ORDERED: SOD CHLORIDE 0.9% 1,000 ML IV ONE (15:00)
[2017-05-07] MEDS ORDERED: PHENYLephrine 20MG IN 250 ML 250 ML ONE (15:05)
[2017-05-07 15:16] LABS: HEMATOCRIT 27.9 % (37.0-47.0); HEMOGLOBIN 9.5 g/dl (12.0-16.0)
[2017-05-07] MEDS ORDERED: PHENYLephrine 40 MG in DEXTROSE 5% 496 ML IV SCH (15:30)
[2017-05-07] MEDS: ENOXAPARIN 30 MG/0.3 ML SYG SC SCH (15:45)
--- NOTE | 2017-05-07 18:14 | OPR ---
DATE OF OPERATION: 05/07/2017 PREOPERATIVE DIAGNOSIS: Right pleural effusion. POSTOPERATIVE DIAGNOSIS: Right pleural effusion. OPERATION PERFORMED: 1. Right thoracotomy, total pulmonary decortication. 2. Right diagnostic thoracoscopy. 3. Bronchoscopy. SURGEON: Adrian Jackson MD ANESTHESIA: General. CONSENT: Risks, benefits, complications, alternative therapies explained to the patient and the [facility] consent obtained. OPERATIVE TECHNIQUE: The patient was placed in supine position, prepped and draped in usual sterile fashion, 1% lidocaine was used throughout the operation for local anesthesia, bronchoscopy was done . No evidence of any endobronchial lesions was noted. Patient was placed in left lateral decubitus position. All pressure points were padded. Axillary roll was placed, prepped and draped in usual sterile fashion. Thoracoscopy was done using a 12 mm trocar into the right pleural cavity, which re vealed large amounts of very dense adhesions which were very tight and I decided to proceed with tho racotomy. A standard thoracotomy incision was made at the 8th intercostal space anterolateral. Inc ision was taken down to the subcutaneous tissue which was then opened using electrocautery. The reena st was entered. Large amounts of adhesions were noted. The lung appeared to be completely trapped with the posterolateral loculated cavity, which was then decorticated completely. No evidence of an y major bleeding was noted. After adequate decortication was completed, 2 chest tubes were placed, 32 straight, 36 right angle and brought out through a lower stab wound, secured to skin using silk s utures. They were reapproximated using a #2 Vicryl suture in a [id number] fashion. The serrat us anterior muscle was reapproximated using a #1 Vicryl suture in running fashion. Subcutaneous tis sues were irrigated again and closed in 2 layers of 2-0 Vicryl suture for subcutaneous and Steri-Str ips for the skin. Patient tolerated procedure well. Dictated By: ADRIAN JOSEPH/KT Conf#: [id number] DID#: [id number]
[2017-05-07] MEDS: FENTAnyl 2MCG/ML-ROPIV 0.2% 100 ML BAG EPI SCH (22:14)
[2017-05-08] VITALS (71 sets, daily range): BP systolic 83–163; BP diastolic 45–85; PULSE 79–113; RESP 9–48
[2017-05-08] MEDS: ACCU-CHEK XX SCH (02:00)
[2017-05-08] MEDS: ACETAMINOPHEN 325 MG TAB PO PRN ×3 (02:14→23:41)
[2017-05-08] MEDS: morphine 2 MG INJ IV PRN (02:30)
[2017-05-08] MEDS: HYDROmorphONE 1 MG/ML SYG IV PRN ×2 (02:50→13:29)
[2017-05-08 05:15] LABS: ABNORMAL IP MESSAGE 1; BASOPHILS % 0.2 % (0.0-2.0); EOSINOPHILS % 0.1 % (0.0-7.0); HEMATOCRIT 29.9 % (37.0-47.0); HEMOGLOBIN 10.4 g/dl (12.0-16.0); LYMPHOCYTES # 1.7 10^3/ul (0.8-2.9); LYMPHOCYTES % 10.1 % (15.0-51.0); MEAN CORPUSCULAR HEMOGLOBIN 31.4 pg (29.0-33.0); MEAN CORPUSCULAR HGB CONC 34.8 g/dl (32.0-37.0); MEAN CORPUSCULAR VOLUME 90.3 fl (82.0-101.0); MEAN PLATELET VOLUME 8.2 fl (7.4-10.4); MONOCYTE # 1.6 10^3/ul (0.3-0.9); MONOCYTES % 9.4 % (0.0-11.0); NEUTROPHIL # 13.3 10^3/ul (1.6-7.5); NEUTROPHILS % 79.5 % (39.0-77.0); PLATELET COUNT 454 10^3/UL (140-415); RED BLOOD COUNT 3.31 10^6/ul (4.20-5.40); RED CELL DISTRIBUTION WIDTH 14.5 % (11.5-14.5); WHITE BLOOD COUNT 16.7 10^3/ul (4.8-10.8)
[2017-05-08 05:17] LABS: POSITIVE DIFF @See below
[2017-05-08] MEDS: AMPICILLIN/SULB 1.5GM/NS (PMX) 50 ML IVPB SCH ×3 (05:41→17:58)
[2017-05-08] MEDS: PANTOPRAZOLE (EC) 40 MG TAB PO SCH (05:41)
[2017-05-08 05:44] LABS: CALCIUM 8.7 mg/dl (8.4-10.2); CREATININE 0.37 mg/dl (0.44-1.00); POTASSIUM 4.4 mmol/L (3.5-5.1)
--- NOTE | 2017-05-08 06:48 | PN ---
DATE: 05/07/2017 SUBJECTIVE: The patient is in ICU post VATS. She is alert, awake, oriented, does not have any specific complaint. OBJECTIVE: VITAL SIGNS: Temperature 97.3, heart rate 86 regular, respirations 21, blood pressure 129/75, saturation 100% on 15 liters nonrebreather mask. LABORATORY DATA: Sodium, potassium normal, BUN and creatinine normal. Hematology today at 8:00 a.m. WBC 10,400 with 58% segments which is normal. Platelet count has increased to over 500 Hemoglobin and hematocrit stable As was mentioned, patient is in ICU status post VATS on the right side. Chest tube is connected to the under water seal. The patient is alert and awake, does not have any specific complaints. I also saw the patient in the morning before operation. She did not have any complaints of abdominal pain. She had a bowel movement last night. Abdomen soft. Two pigtail drains which is going into the abscess cavity in the liver, they are place draining minimal amount of serosanguineous fluid. ASSESSMENT: This is a 66-year-old female who presented with sepsis and was found to have multiloculated lobulated liver abscess. The liver abscess was taken care of by 3 time placement of the pigtail drains in different loculations and last CT scan which was done on 05/02 revealed that the _the abscess cavity has shrunken to large extent. There were 1 or 2 more pockets left that the radiologist could not proceed with placement of the pigtail drains anymore and decision was made by Dr. Martin and surgeons and other to continue antibiotics, hoping that this small loculation will eventually disappear. Meanwhile, the patient had developed a right pleural effusion and twice aspiration thoracentesis under ultrasound guidance was performed, but it could not drain it completely. The thoracic surgeons believe it was loculated and that needed to be done under the surgical approach so today VATS was performed and apparently successful drainage has been done. PLAN: Continue recommendation of the thoracic surgeon for the chest tube and post VATS and then the patient transferred to the floor. I will continue following the patient and will follow the liver abscess by taking another CT scan maybe a week from now to see the ultimate result of the drainage of the liver abscess and mass effect of antibiotics as per recommendation of Infectious disease. The patient should get at least 6 weeks of antibiotics for liver abscess. Dictated By: JOHN BURGOS MD PS/KT Conf#: [id number] DID#: [id number] SANJAY
[2017-05-08] MEDS: Insulin NOVOLOG SS MILD Algorithm (SS with meals and bedtime) SC SCH ×4 (07:05→21:00)
[2017-05-08] MEDS: FENTAnyl 2MCG/ML-ROPIV 0.2% 100 ML BAG EPI SCH (08:07)
--- NOTE | 2017-05-08 08:15 | CONS ---
Date/Time of Note Date/Time of Note DATE: 05/08/17 TIME: 08:12 Assessment/Plan Assessment/Plan Chief Complaint/Hosp Course - severe sepsis due to pyogenic liver abscess, loculated pleural effusion s/p R thoracotomy, thoracoscopy, total pulmonary decortication on 05/07/2017 - multiloculated pyogenic liver abscess s/p CT guided drainage catheter placement 04/15/2017, 04/23/2017, s/p repeat drainage 04/27/2017; cultures from gamma hemolytic strep, cultures from 04/23/2017 alpha hemolytic strep - loculated pleural effusion likely secondary to hepatic process/Hepatic hydrothorax, R>L, s/p R thoracentesis on 04/20/2017, s/p chest tube placement on 04/22/2017 - intermittent diarrhea - normocytic anemia requiring blood transfusion - coagulopathy, improved - Transaminitis, improved - Hyponatremia - CoNS in urine culture with trivial pyuria, likely contaminant - Hx of rectal CA s/p Low anterior resection 08/29/2016 - Severe protein calorie malnutrition - allergy to vancomycin recommendations: - pending results: bacterial, fungal and AFB cultures from VATS. I ordered cytology for VATS but no specimen has been collected. I asked Pt's RN to follow up on this - continue amp/sulbactam (04/18/2017-); s/p linezolid and pip/tazo (04/13-2016). - I will adjust her antibiotic if needed based on the new cultures from VATS - we recommend long-term (6 weeks at least) antibiotic administration; we recommend repeat imaging prior to antibiotic cessation to ensure resolution management d/w Pt and her RN the critical care time that I took to care for this Pt today was from 0810 to 0840 Problems: Consultation Date/Type/Reason Admit Date/Time Apr 13, 2017 at 19:51 Initial Consult Date 04/21/17 Type of Consultation: ID Referring Provider: DARREL BURT MD 24 HR Interval Summary Free Text/Dictation s/p VATS Constitutional: improved Detailed Summary Eyes: no complaints ENT: no complaints Respiratory: other (post-op pain), pleuritic pain Cardiovascular: no complaints Gastrointestinal: no complaints Genitourinary: other (FC) Musculoskeletal: no complaints Skin: no complaints Exam/Review of Systems Vital Signs Vitals Vital Signs Date Time Temp Pulse Resp B/P Pulse Ox O2 Delivery O2 Flow Rate FiO2 05/08/17 07:00 94 11 87/47 99 Nasal Cannula 3.0 05/08/17 04:21 27 05/08/17 04:00 98.4 Intake and Output 05/07/17 05/07/17 05/08/17 15:00 23:00 07:00 Intake Total 3275 ml 1451.0 ml 637 ml Output Total 1670 ml 505 ml 700 ml Balance 1605 ml 946.0 ml -63 ml Exam Constitutional: alert, frail Psych: nl mood/affect, no complaints Head: atraumatic, normocephalic Eyes: nl conjunctiva, nl lids, nl sclera ENMT: nl external ears & nose Neck: other (deferred) Respiratory: diminished breath sounds, other (chest tube) Cardiovascular: nl pulses, regular rate and rhythm Gastrointestinal: non-tender, other (external drainage catheter), soft Genitourinary - Female: other (FC) Musculoskeletal: nl extremities to inspection Extremities: No edema Results Result Diagram: 05/08/17 0435 05/08/17 0435 Results 24 hrs Laboratory Tests Test 05/07/17 15:10 05/07/17 16:52 05/07/17 21:45 05/08/17 04:35 Hemoglobin 9.5 L 10.4 L Hematocrit 27.9 L 29.9 L Bedside Glucose 163 135 White Blood Count 16.7 #H Red Blood Count 3.31 L Mean Corpuscular Volume 90.3 Mean Corpuscular Hemoglobin 31.4 Mean Corpuscular Hemoglobin Concent 34.8 Red Cell Distribution Width 14.5 Platelet Count 454 #H Mean Platelet Volume 8.2 Neutrophils % 79.5 H Lymphocytes % 10.1 L Monocytes % 9.4 Eosinophils % 0.1 Basophils % 0.2 Nucleated Red Blood Cells % 0.0 Neutrophils # 13.3 H Lymphocytes # 1.7 Monocytes # 1.6 H Eosinophils # 0.0 Basophils # 0.0 Nucleated Red Blood Cells # 0.0 Sodium Level 137 Potassium Level 4.4 Chloride Level 104 Carbon Dioxide Level 28 Anion Gap 9 Blood Urea Nitrogen 13 Creatinine 0.37 L Glucose Level 127 Calcium Level 8.7 Test 05/08/17 05:25 05/08/17 07:14 Lab Scanned Report BLOOD TRANSFUSION Bedside Glucose 111 Medications Medications Current Medications Miscellaneous Information 1 ea NOTE XX ; Start 04/13/17 at 21:30 Glucose (Glutose) 15 gm Q15M PRN PO DECREASED GLUCOSE; Start 04/13/17 at 21:30 Glucose (Glutose) 22.5 gm Q15M PRN PO DECREASED GLUCOSE; Start 04/13/17 at 21: 30 Dextrose (D50w Syringe) 25 ml Q15M PRN IV DECREASED GLUCOSE; Start 04/13/17 at 21:30 Dextrose (D50w Syringe) 50 ml Q15M PRN IV DECREASED GLUCOSE; Start 04/13/17 at 21:30 Glucagon (Glucagen) 1 mg Q15M PRN IM DECREASED GLUCOSE; Start 04/13/17 at 21:30 Glucose (Glutose) 15 gm Q15M PRN BUCCAL DECREASED GLUCOSE; Start 04/13/17 at 21 :30 Ondansetron HCl (Zofran Inj) 4 mg Q6 PRN IV NAUSEA AND/OR VOMITING Last administered on 04/26/17 20:25; Admin Dose 4 MG; Start 04/13/17 at 21:30 Guaifenesin/ Dextromethorphan (Robitussin Dm Liquid Cup) 5 ml Q4H PRN PO COUGH Last administered on 04/19/17 05:09; Admin Dose 5 ML; Start 04/15/17 at 16:30 Pantoprazole (Protonix Tab) 40 mg DAILY@06 PO Last administered on 05/08/17 05 :41; Admin Dose 40 MG; Start 04/17/17 at 06:00 Acetaminophen (Tylenol Tab) 500 mg Q6H PRN PO PAIN AND OR ELEVATED TEMP Last administered on 05/06/17 03:25; Admin Dose 500 MG; Start 04/17/17 at 03:00 Magnesium Hydroxide 30 ml 30 ml DAILY PRN PO CONSTIPATION Last administered on 04/28/17 18:33; Admin Dose 30 ML; Start 04/17/17 at 11:30 Ampicillin Sodium/ Sulbactam Sodium (Unasyn 1.5gm/NS (Pmx)) 50 ml @ 100 mls/hr Q6 IVPB Last administered on 05/08/17 05:41; Admin Dose 100 MLS/HR; Start at 18:00 Fentanyl (Duragesic 12 Mcg/Hr Patch) 1 patch Q72H TRANSDERM Last administered on 05/07/17 06:13; Admin Dose 1 PATCH; Start 04/22/17 at 05:30 Morphine Sulfate (morphine) 1 mg Q4H PRN IV SEVERE PAIN LEVEL 7-10 Last administered on 05/08/17 02:30; Admin Dose 1 MG; Start 04/22/17 at 17:30 Metoclopramide HCl (Reglan) 10 mg Q6H PRN IV NAUSEA Last administered on 20:18; Admin Dose 10 MG; Start 04/22/17 at 21:00 Enoxaparin Sodium (Lovenox) 30 mg DAILY SC Last administered on 05/06/17 09:18 ; Admin Dose 30 MG; Start 04/23/17 at 20:30 Acetaminophen (Tylenol Supp) 650 mg Q6H PRN [place] FEVER GREATER THAN 100.6; Start 04/23/17 at 20:30 Acetaminophen (Tylenol Tab) 650 mg Q6H PRN PO PAIN AND OR ELEVATED TEMP Last administered on 05/08/17 02:14; Admin Dose 650 MG; Start 04/23/17 at 20:30 Lactobacillus Acidophilus/ Rhamnosus (Culturelle) 1 cap BID PO Last administered on 05/07/17 21:46; Admin Dose 1 CAP; Start 04/24/17 at 11:30 Diagnostic Test (Pha) (Accu-Chek) 1 ea 02 XX ; Start 04/26/17 at 02:00 Docusate Sodium (Colace) 100 mg BID PO Last administered on 05/07/17 21:47; Admin Dose 100 MG; Start 04/30/17 at 21:00 Potassium Chloride (Klor-Con 20) 20 meq BID PO Last administered on 05/07/17 21:47; Admin Dose 20 MEQ; Start 05/04/17 at 21:00 Hydromorphone HCl (Dilaudid) 0.2 mg Q2H PRN IV PAIN LEVEL 1-5 Last administered on 05/08/17 02:50; Admin Dose 0.2 MG; Start 05/07/17 at 13:30; Stop 05/08/17 at 13:29 Nalbuphine HCl (Nubain) 10 mg Q4H PRN IV PRURITUS; Start 05/07/17 at 13:30 Ondansetron HCl (Zofran Inj) 4 mg Q6H PRN IV NAUSEA AND/OR VOMITING; Start 05/07/17 at 13:30 Trimethobenzamide HCl (Tigan) 200 mg Q6H PRN IM NAUSEA AND/OR VOMITING; Start 05/07/17 at 13:30; Stop 05/08/17 at 13:29 Naloxone HCl (Narcan) 0.2 mg Q2M PRN IV FOR RESP RATE 8 OR LESS; Start at 13:30; Stop 05/08/17 at 13:29 Furosemide 20 mg 20 mg DAILY IV ; Start 05/08/17 at 09:00 Phenylephrine HCl/ Dextrose (Ruben-Syneph/D5W) 500 ml @ 75 mls/hr TITRATE IV Last administered on 05/07/17t 17:16; Admin Dose 7.5 MLS/HR; Start 05/07/17 at 15:30 AARON ANSARI M.D. May 08, 2017 08:14
[2017-05-08] MEDS: ENOXAPARIN 30 MG/0.3 ML SYG SC SCH (09:00)
[2017-05-08] MEDS: POTASSIUM CHLORIDE (SR) 20 MEQ TAB PO SCH ×2 (09:50→21:52)
[2017-05-08] MEDS: LACTOBACILLUS RHAMNOSUS CAP PO SCH ×2 (09:50→21:52)
[2017-05-08] MEDS: DOCUSATE SODIUM 100 MG CAP PO SCH ×2 (09:51→21:52)
[2017-05-08] MEDS: FUROSEMIDE 20 MG INJ IV SCH (09:52)
--- NOTE | 2017-05-08 10:31 | CONS ---
Date/Time of Note Date/Time of Note DATE: 05/08/17 TIME: 10:28 Consult Date/Type/Reason Admit Date/Time Apr 13, 2017 at 19:51 Initial Consult Date 04/15/17 Type of Consultation: Pulmonary Ordering Provider: DARREL BURT MD Subjective Patient awake alert this morning comfortable at rest. Denies any respiratory distress. Continues Levophed. Continues epidural. She is status post right decortication. Objective Vital Signs Date Time Temp Pulse Resp B/P Pulse Ox O2 Delivery O2 Flow Rate FiO2 05/08/17 08:00 92 05/08/17 07:00 11 87/47 99 Nasal Cannula 3.0 05/08/17 04:21 27 05/08/17 04:00 98.4 Intake and Output 05/07/17 05/07/17 05/08/17 15:00 23:00 07:00 Intake Total 3275 ml 1451.0 ml 637 ml Output Total 1670 ml 505 ml 700 ml Balance 1605 ml 946.0 ml -63 ml Exam GENERAL: Well-nourished well-developed lady comfortable at rest no acute distress VITAL SIGNS: per chart NECK: Supple. No JVD or lymphadenopathy. CARDIAC EXAM: S1, S2. No added sounds or murmurs. CHEST: Diminished air entry bilaterally ABDOMEN: Soft, nontender. No guarding or rebound. EXTREMITIES: No cyanosis, clubbing or edema. NEUROLOGIC: Generalized weakness. No focal deficits. Results/Medications Result Diagram: 05/08/17 0435 05/08/17 0435 Results 24 hrs Laboratory Tests Test 05/07/17 15:10 05/07/17 16:52 05/07/17 21:45 05/08/17 04:35 Hemoglobin 9.5 L 10.4 L Hematocrit 27.9 L 29.9 L Bedside Glucose 163 135 White Blood Count 16.7 #H Red Blood Count 3.31 L Mean Corpuscular Volume 90.3 Mean Corpuscular Hemoglobin 31.4 Mean Corpuscular Hemoglobin Concent 34.8 Red Cell Distribution Width 14.5 Platelet Count 454 #H Mean Platelet Volume 8.2 Neutrophils % 79.5 H Lymphocytes % 10.1 L Monocytes % 9.4 Eosinophils % 0.1 Basophils % 0.2 Nucleated Red Blood Cells % 0.0 Neutrophils # 13.3 H Lymphocytes # 1.7 Monocytes # 1.6 H Eosinophils # 0.0 Basophils # 0.0 Nucleated Red Blood Cells # 0.0 Sodium Level 137 Potassium Level 4.4 Chloride Level 104 Carbon Dioxide Level 28 Anion Gap 9 Blood Urea Nitrogen 13 Creatinine 0.37 L Glucose Level 127 Calcium Level 8.7 Test 05/08/17 05:25 05/08/17 07:14 Lab Scanned Report BLOOD TRANSFUSION Bedside Glucose 111 Medications Current Medications Miscellaneous Information 1 ea NOTE XX ; Start 04/13/17 at 21:30 Glucose (Glutose) 15 gm Q15M PRN PO DECREASED GLUCOSE; Start 04/13/17 at 21:30 Glucose (Glutose) 22.5 gm Q15M PRN PO DECREASED GLUCOSE; Start 04/13/17 at 21: 30 Dextrose (D50w Syringe) 25 ml Q15M PRN IV DECREASED GLUCOSE; Start 04/13/17 at 21:30 Dextrose (D50w Syringe) 50 ml Q15M PRN IV DECREASED GLUCOSE; Start 04/13/17 at 21:30 Glucagon (Glucagen) 1 mg Q15M PRN IM DECREASED GLUCOSE; Start 04/13/17 at 21:30 Glucose (Glutose) 15 gm Q15M PRN BUCCAL DECREASED GLUCOSE; Start 04/13/17 at 21 :30 Ondansetron HCl (Zofran Inj) 4 mg Q6 PRN IV NAUSEA AND/OR VOMITING Last administered on 04/26/17 20:25; Admin Dose 4 MG; Start 04/13/17 at 21:30 Guaifenesin/ Dextromethorphan (Robitussin Dm Liquid Cup) 5 ml Q4H PRN PO COUGH Last administered on 04/19/17 05:09; Admin Dose 5 ML; Start 04/15/17 at 16:30 Pantoprazole (Protonix Tab) 40 mg DAILY@06 PO Last administered on 05/08/17 05 :41; Admin Dose 40 MG; Start 04/17/17 at 06:00 Acetaminophen (Tylenol Tab) 500 mg Q6H PRN PO PAIN AND OR ELEVATED TEMP Last administered on 05/06/17 03:25; Admin Dose 500 MG; Start 04/17/17 at 03:00 Magnesium Hydroxide 30 ml 30 ml DAILY PRN PO CONSTIPATION Last administered on 04/28/17 18:33; Admin Dose 30 ML; Start 04/17/17 at 11:30 Ampicillin Sodium/ Sulbactam Sodium (Unasyn 1.5gm/NS (Pmx)) 50 ml @ 100 mls/hr Q6 IVPB Last administered on 05/08/17 05:41; Admin Dose 100 MLS/HR; Start at 18:00 Fentanyl (Duragesic 12 Mcg/Hr Patch) 1 patch Q72H TRANSDERM Last administered on 05/07/17 06:13; Admin Dose 1 PATCH; Start 04/22/17 at 05:30 Morphine Sulfate (morphine) 1 mg Q4H PRN IV SEVERE PAIN LEVEL 7-10 Last administered on 05/08/17 02:30; Admin Dose 1 MG; Start 04/22/17 at 17:30 Metoclopramide HCl (Reglan) 10 mg Q6H PRN IV NAUSEA Last administered on 20:18; Admin Dose 10 MG; Start 04/22/17 at 21:00 Enoxaparin Sodium (Lovenox) 30 mg DAILY SC Last administered on 05/06/17 09:18 ; Admin Dose 30 MG; Start 04/23/17 at 20:30 Acetaminophen (Tylenol Supp) 650 mg Q6H PRN [place] FEVER GREATER THAN 100.6; Start 04/23/17 at 20:30 Acetaminophen (Tylenol Tab) 650 mg Q6H PRN PO PAIN AND OR ELEVATED TEMP Last administered on 05/08/17 10:10; Admin Dose 650 MG; Start 04/23/17 at 20:30 Lactobacillus Acidophilus/ Rhamnosus (Culturelle) 1 cap BID PO Last administered on 05/08/17 09:50; Admin Dose 1 CAP; Start 04/24/17 at 11:30 Diagnostic Test (Pha) (Accu-Chek) 1 ea 02 XX ; Start 04/26/17 at 02:00 Docusate Sodium (Colace) 100 mg BID PO Last administered on 05/08/17 09:51; Admin Dose 100 MG; Start 04/30/17 at 21:00 Potassium Chloride (Klor-Con 20) 20 meq BID PO Last administered on 05/08/17 09:50; Admin Dose 20 MEQ; Start 05/04/17 at 21:00 Hydromorphone HCl (Dilaudid) 0.2 mg Q2H PRN IV PAIN LEVEL 1-5 Last administered on 05/08/17 02:50; Admin Dose 0.2 MG; Start 05/07/17 at 13:30; Stop 05/08/17 at 13:29 Nalbuphine HCl (Nubain) 10 mg Q4H PRN IV PRURITUS; Start 05/07/17 at 13:30 Ondansetron HCl (Zofran Inj) 4 mg Q6H PRN IV NAUSEA AND/OR VOMITING; Start 05/07/17 at 13:30 Trimethobenzamide HCl (Tigan) 200 mg Q6H PRN IM NAUSEA AND/OR VOMITING; Start 05/07/17 at 13:30; Stop 05/08/17 at 13:29 Naloxone HCl (Narcan) 0.2 mg Q2M PRN IV FOR RESP RATE 8 OR LESS; Start at 13:30; Stop 05/08/17 at 13:29 Furosemide 20 mg 20 mg DAILY IV Last administered on 05/08/17 09:52; Admin Dose 20 MG; Start 05/08/17 at 09:00 Phenylephrine HCl/ Dextrose (Ruben-Syneph/D5W) 500 ml @ 75 mls/hr TITRATE IV Last administered on 05/07/17 17:16; Admin Dose 7.5 MLS/HR; Start 05/07/17 at 15:30 Assessment/Plan Chief Complaint/Hosp Course Assessment 1. Loculated pleural effusion likely secondary to hepatic abscesses. History of colon CA 2. Hepatic hydrothorax status post chest tube however loculated pleural effusion status post decortication postop day 1 3. Shock likely secondary in origin. Continues vasopressors Plan 1. Continue antibiotics per ID 2. Chest tube management per thoracic surgery 3. Continue percutaneous drainage of abdominal abscess 4. Continue vasopressors. If remains vasopressor dependent will check cortisol level for relative adrenal insufficiency. Continue icu care. Problems: DEN[facility] BRAVO MD, [facility] May 08, 2017 10:31
--- NOTE | 2017-05-08 11:27 | PN ---
Date/Time of Note Date/Time of Note DATE: 05/08/17 TIME: 11:26 Assessment/Plan Lines/Catheters IV Catheter Type (from Nrs): Saline Lock Khan in Place (from Nrs): Yes Assessment/Plan Chief Complaint/Hosp Course P Right VATS decortication Continue CT SXN Continue antibiotics per ID Problems: Subjective 24 Hr Interval Summary Constitutional: improved Pain Control: mild Exam/Review of Systems Vital Signs Vitals Vital Signs Date Time Temp Pulse Resp B/P Pulse Ox O2 Delivery O2 Flow Rate FiO2 05/08/17 10:15 91 28 162/82 97 Nasal Cannula 05/08/17 07:45 98.0 05/08/17 07:00 3.0 05/08/17 04:21 27 Intake and Output 05/07/17 05/07/17 05/08/17 15:00 23:00 07:00 Intake Total 3275 ml 1451.0 ml 637 ml Output Total 1670 ml 505 ml 700 ml Balance 1605 ml 946.0 ml -63 ml Exam Neck: non-tender, supple Respiratory: clear to auscultation, normal air movement Cardiovascular: nl pulses, regular rate and rhythm Gastrointestinal: nl liver, spleen, non-tender, soft Results Result Diagram: 05/08/17 0435 05/08/17 0435 ADRIAN NO MD May 08, 2017 11:27
--- NOTE | 2017-05-08 13:59 | CONS ---
Date/Time of Note Date/Time of Note DATE: 05/08/17 TIME: 13:50 Assessment/Plan Assessment/Plan Chief Complaint/Hosp Course IMP: 1.Hypotension-Now hypertensive 2.abnl ecg-negative trop x 3/NL EF by echo. NO CP 3.Liver abscess s/p CT guided drainage 4.H/O lung ca s/p resection with lung nodules by CT? 5.Lung nodules 6. Hyponatremia 7. Effusion s/p VATS/decortication Recc: -Now in ICU s/p VATS/decortication -Continue abx's -F/U cx data -Follow BP closely and will start low dose BB to improve HR control -pain control -Continue lasix which I will decrease to daily and follow volume status/NA closely Problems: Consultation Date/Type/Reason Admit Date/Time Apr 13, 2017 at 19:51 Initial Consult Date 04/13/17 Type of Consultation: CARDIOLOGY Reason for Consultation CHEST PAIN Referring Provider: DARREL BURT MD Exam/Review of Systems Vital Signs Vitals Vital Signs Date Time Temp Pulse Resp B/P Pulse Ox O2 Delivery O2 Flow Rate FiO2 05/08/17 12:00 83 05/08/17 11:45 98.0 24 154/76 96 Nasal Cannula 05/08/17 08:00 3.0 05/08/17 04:21 27 Intake and Output 05/07/17 05/07/17 05/08/17 15:00 23:00 07:00 Intake Total 3275 ml 1451.0 ml 637 ml Output Total 1670 ml 505 ml 700 ml Balance 1605 ml 946.0 ml -63 ml Exam Review of Systems: CONSTITUTIONAL: No fevers, chills. PULMONARY: No sob CARDIOVASCULAR: No chest pain/palpitations GASTROINTESTINAL: No nausea/vomiting. GENITOURINARY: No hematuria/dysuria. MUSCULOSKELETAL: No myagias/arthalgias. PSYCHIATRIC: The patient denies depression. NEUROLOGIC: No weakness Constitutional: alert Psych: no complaints Head: normocephalic ENMT: mucosa pink and moist Neck: jvd (9 cm water), supple Respiratory: diminished breath sounds (at bases/B) Gastrointestinal: non-tender, soft Musculoskeletal: muscle tone Extremities: edema (none) 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: other (No focal deficits) Results Result Diagram: 05/08/17 0435 05/08/17 0435 Results 24 hrs Laboratory Tests Test 05/07/17 15:10 05/07/17 16:52 05/07/17 21:45 05/08/17 04:35 Hemoglobin 9.5 L 10.4 L Hematocrit 27.9 L 29.9 L Bedside Glucose 163 135 White Blood Count 16.7 #H Red Blood Count 3.31 L Mean Corpuscular Volume 90.3 Mean Corpuscular Hemoglobin 31.4 Mean Corpuscular Hemoglobin Concent 34.8 Red Cell Distribution Width 14.5 Platelet Count 454 #H Mean Platelet Volume 8.2 Neutrophils % 79.5 H Lymphocytes % 10.1 L Monocytes % 9.4 Eosinophils % 0.1 Basophils % 0.2 Nucleated Red Blood Cells % 0.0 Neutrophils # 13.3 H Lymphocytes # 1.7 Monocytes # 1.6 H Eosinophils # 0.0 Basophils # 0.0 Nucleated Red Blood Cells # 0.0 Sodium Level 137 Potassium Level 4.4 Chloride Level 104 Carbon Dioxide Level 28 Anion Gap 9 Blood Urea Nitrogen 13 Creatinine 0.37 L Glucose Level 127 Calcium Level 8.7 Test 05/08/17 05:25 05/08/17 07:14 05/08/17 10:37 Lab Scanned Report BLOOD TRANSFUSION Bedside Glucose 111 98 Medications Medications Current Medications Miscellaneous Information 1 ea NOTE XX ; Start 04/13/17 at 21:30 Glucose (Glutose) 15 gm Q15M PRN PO DECREASED GLUCOSE; Start 04/13/17 at 21:30 Glucose (Glutose) 22.5 gm Q15M PRN PO DECREASED GLUCOSE; Start 04/13/17 at 21: 30 Dextrose (D50w Syringe) 25 ml Q15M PRN IV DECREASED GLUCOSE; Start 04/13/17 at 21:30 Dextrose (D50w Syringe) 50 ml Q15M PRN IV DECREASED GLUCOSE; Start 04/13/17 at 21:30 Glucagon (Glucagen) 1 mg Q15M PRN IM DECREASED GLUCOSE; Start 04/13/17 at 21:30 Glucose (Glutose) 15 gm Q15M PRN BUCCAL DECREASED GLUCOSE; Start 04/13/17 at 21 :30 Ondansetron HCl (Zofran Inj) 4 mg Q6 PRN IV NAUSEA AND/OR VOMITING Last administered on 04/26/17t 20:25; Admin Dose 4 MG; Start 04/13/17 at 21:30 Guaifenesin/ Dextromethorphan (Robitussin Dm Liquid Cup) 5 ml Q4H PRN PO COUGH Last administered on 04/19/17 05:09; Admin Dose 5 ML; Start 04/15/17 at 16:30 Pantoprazole (Protonix Tab) 40 mg DAILY@06 PO Last administered on 05/08/17 05 :41; Admin Dose 40 MG; Start 04/17/17 at 06:00 Acetaminophen (Tylenol Tab) 500 mg Q6H PRN PO PAIN AND OR ELEVATED TEMP Last administered on 05/06/17 03:25; Admin Dose 500 MG; Start 04/17/17 at 03:00 Magnesium Hydroxide 30 ml 30 ml DAILY PRN PO CONSTIPATION Last administered on 04/28/17 18:33; Admin Dose 30 ML; Start 04/17/17 at 11:30 Ampicillin Sodium/ Sulbactam Sodium (Unasyn 1.5gm/NS (Pmx)) 50 ml @ 100 mls/hr Q6 IVPB Last administered on 05/08/17 13:32; Admin Dose 100 MLS/HR; Start at 18:00 Fentanyl (Duragesic 12 Mcg/Hr Patch) 1 patch Q72H TRANSDERM Last administered on 05/07/17 06:13; Admin Dose 1 PATCH; Start 04/22/17 at 05:30 Morphine Sulfate (morphine) 1 mg Q4H PRN IV SEVERE PAIN LEVEL 7-10 Last administered on 05/08/17 02:30; Admin Dose 1 MG; Start 04/22/17 at 17:30 Metoclopramide HCl (Reglan) 10 mg Q6H PRN IV NAUSEA Last administered on 20:18; Admin Dose 10 MG; Start 04/22/17 at 21:00 Enoxaparin Sodium (Lovenox) 30 mg DAILY SC Last administered on 05/06/17 09:18 ; Admin Dose 30 MG; Start 04/23/17 at 20:30 Acetaminophen (Tylenol Supp) 650 mg Q6H PRN [place] FEVER GREATER THAN 100.6; Start 04/23/17 at 20:30 Acetaminophen (Tylenol Tab) 650 mg Q6H PRN PO PAIN AND OR ELEVATED TEMP Last administered on 05/08/17 10:10; Admin Dose 650 MG; Start 04/23/17 at 20:30 Lactobacillus Acidophilus/ Rhamnosus (Culturelle) 1 cap BID PO Last administered on 05/08/17 09:50; Admin Dose 1 CAP; Start 04/24/17 at 11:30 Diagnostic Test (Pha) (Accu-Chek) 1 ea 02 XX ; Start 04/26/17 at 02:00 Docusate Sodium (Colace) 100 mg BID PO Last administered on 05/08/17 09:51; Admin Dose 100 MG; Start 04/30/17 at 21:00 Potassium Chloride (Klor-Con 20) 20 meq BID PO Last administered on 05/08/17 09:50; Admin Dose 20 MEQ; Start 05/04/17 at 21:00 Nalbuphine HCl (Nubain) 10 mg Q4H PRN IV PRURITUS; Start 05/07/17 at 13:30 Ondansetron HCl (Zofran Inj) 4 mg Q6H PRN IV NAUSEA AND/OR VOMITING; Start 05/07/17 at 13:30 Furosemide 20 mg 20 mg DAILY IV Last administered on 05/08/17 09:52; Admin Dose 20 MG; Start 05/08/17 at 09:00 Phenylephrine HCl/ Dextrose (Ruben-Syneph/D5W) 500 ml @ 75 mls/hr TITRATE IV Last administered on 05/07/17 17:16; Admin Dose 7.5 MLS/HR; Start 05/07/17 at 15:30 LILIANA BARKSDALE May 08, 2017 13:59
[2017-05-08] MEDS: FENTAnyl PATCH 12 MCG/HR TRANSDERM SCH (14:36)
--- NOTE | 2017-05-08 15:17 | CONS ---
Date/Time of Note Date/Time of Note DATE: 05/08/17 TIME: 15:14 Assessment/Plan Assessment/Plan Chief Complaint/Hosp Course Problems: Additional Assessment/Plan 1. Bilateral pleural effusions right more than left, status post right thoracentesis 04/20. S/p right chest tube insertion on 04/[address] Jackson, vascular surgery. S/p right thoracentesis 04/26. - s/p Right VATS decortication 05/07/2017 2. Acute hyponatremia 2/2 Hypovolemic hyponatremia - Resolved 2. sepsis due to liver abscess 3. Hepatic abscess oN CT scan s/p CT guided drainage on 04/15/17 and 04/23/17 4. Acute transaminitis 5. h/o Colon CA s/p previous Surgery 6. Hypokalemia 7. acute resp failiue due to # 1 Plan : S/p Right VATS decortication, Stable, Cr and Electrolytes stable today, on IV lasix for CHF and pleural effusion IV abx as per ID, renally dose all abx pulmonary ID and G surgery has been following on patient. will follow up Consultation Date/Type/Reason Admit Date/Time Apr 13, 2017 at 19:51 Initial Consult Date 04/13/17 Type of Consultation: NEPHROLOGY Referring Provider: DARREL BURT MD 24 HR Interval Summary Free Text/Dictation s/p Right VATS decortication, BP stable, cr and electrolytes stable Exam/Review of Systems Vital Signs Vitals Vital Signs Date Time Temp Pulse Resp B/P Pulse Ox O2 Delivery O2 Flow Rate FiO2 05/08/17 12:00 83 05/08/17 11:45 98.0 24 154/76 96 Nasal Cannula 05/08/17 08:00 3.0 05/08/17 04:21 27 Intake and Output 05/07/17 05/07/17 05/08/17 15:00 23:00 07:00 Intake Total 3275 ml 1451.0 ml 637 ml Output Total 1670 ml 505 ml 700 ml Balance 1605 ml 946.0 ml -63 ml Exam Constitutional: alert, frail, oriented Respiratory: diminished breath sounds, other (right chest tube) Cardiovascular: nl pulses, regular rate and rhythm Gastrointestinal: other (external draiange catheters) Musculoskeletal: nl extremities to inspection Extremities: No edema 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: DIESEL ENGINE FITTER II-XII intact, 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 Results Result Diagram: 05/08/17 0435 05/08/17 0435 Results 24 hrs Laboratory Tests Test 05/07/17 16:52 05/07/17 21:45 05/08/17 04:35 05/08/17 05:25 Bedside Glucose 163 135 White Blood Count 16.7 #H Red Blood Count 3.31 L Hemoglobin 10.4 L Hematocrit 29.9 L Mean Corpuscular Volume 90.3 Mean Corpuscular Hemoglobin 31.4 Mean Corpuscular Hemoglobin Concent 34.8 Red Cell Distribution Width 14.5 Platelet Count 454 #H Mean Platelet Volume 8.2 Neutrophils % 79.5 H Lymphocytes % 10.1 L Monocytes % 9.4 Eosinophils % 0.1 Basophils % 0.2 Nucleated Red Blood Cells % 0.0 Neutrophils # 13.3 H Lymphocytes # 1.7 Monocytes # 1.6 H Eosinophils # 0.0 Basophils # 0.0 Nucleated Red Blood Cells # 0.0 Sodium Level 137 Potassium Level 4.4 Chloride Level 104 Carbon Dioxide Level 28 Anion Gap 9 Blood Urea Nitrogen 13 Creatinine 0.37 L Glucose Level 127 Calcium Level 8.7 Lab Scanned Report BLOOD TRANSFUSION Test 05/08/17 07:14 05/08/17 10:37 Bedside Glucose 111 98 Medications Medications Current Medications Miscellaneous Information 1 ea NOTE XX ; Start 04/13/17 at 21:30 Glucose (Glutose) 15 gm Q15M PRN PO DECREASED GLUCOSE; Start 04/13/17 at 21:30 Glucose (Glutose) 22.5 gm Q15M PRN PO DECREASED GLUCOSE; Start 04/13/17 at 21: 30 Dextrose (D50w Syringe) 25 ml Q15M PRN IV DECREASED GLUCOSE; Start 04/13/17 at 21:30 Dextrose (D50w Syringe) 50 ml Q15M PRN IV DECREASED GLUCOSE; Start 04/13/17 at 21:30 Glucagon (Glucagen) 1 mg Q15M PRN IM DECREASED GLUCOSE; Start 04/13/17 at 21:30 Glucose (Glutose) 15 gm Q15M PRN BUCCAL DECREASED GLUCOSE; Start 04/13/17 at 21 :30 Ondansetron HCl (Zofran Inj) 4 mg Q6 PRN IV NAUSEA AND/OR VOMITING Last administered on 04/26/17t 20:25; Admin Dose 4 MG; Start 04/13/17 at 21:30 Guaifenesin/ Dextromethorphan (Robitussin Dm Liquid Cup) 5 ml Q4H PRN PO COUGH Last administered on 04/19/17 05:09; Admin Dose 5 ML; Start 04/15/17 at 16:30 Pantoprazole (Protonix Tab) 40 mg DAILY@06 PO Last administered on 05/08/17 05 :41; Admin Dose 40 MG; Start 04/17/17 at 06:00 Acetaminophen (Tylenol Tab) 500 mg Q6H PRN PO PAIN AND OR ELEVATED TEMP Last administered on 05/06/17 03:25; Admin Dose 500 MG; Start 04/17/17 at 03:00 Magnesium Hydroxide 30 ml 30 ml DAILY PRN PO CONSTIPATION Last administered on 04/28/17 18:33; Admin Dose 30 ML; Start 04/17/17 at 11:30 Ampicillin Sodium/ Sulbactam Sodium (Unasyn 1.5gm/NS (Pmx)) 50 ml @ 100 mls/hr Q6 IVPB Last administered on 05/08/17 13:32; Admin Dose 100 MLS/HR; Start at 18:00 Fentanyl (Duragesic 12 Mcg/Hr Patch) 1 patch Q72H TRANSDERM Last administered on 05/08/17 14:36; Admin Dose 1 PATCH; Start 04/22/17 at 05:30 Morphine Sulfate (morphine) 1 mg Q4H PRN IV SEVERE PAIN LEVEL 7-10 Last administered on 05/08/17 02:30; Admin Dose 1 MG; Start 04/22/17 at 17:30 Metoclopramide HCl (Reglan) 10 mg Q6H PRN IV NAUSEA Last administered on 20:18; Admin Dose 10 MG; Start 04/22/17 at 21:00 Enoxaparin Sodium (Lovenox) 30 mg DAILY SC Last administered on 05/06/17 09:18 ; Admin Dose 30 MG; Start 04/23/17 at 20:30 Acetaminophen (Tylenol Supp) 650 mg Q6H PRN IN FEVER GREATER THAN 100.6; Start 04/23/17 at 20:30 Acetaminophen (Tylenol Tab) 650 mg Q6H PRN PO PAIN AND OR ELEVATED TEMP Last administered on 05/08/17 10:10; Admin Dose 650 MG; Start 04/23/17 at 20:30 Lactobacillus Acidophilus/ Rhamnosus (Culturelle) 1 cap BID PO Last administered on 05/08/17 09:50; Admin Dose 1 CAP; Start 04/24/17 at 11:30 Diagnostic Test (Pha) (Accu-Chek) 1 ea 02 XX ; Start 04/26/17 at 02:00 Docusate Sodium (Colace) 100 mg BID PO Last administered on 05/08/17 09:51; Admin Dose 100 MG; Start 04/30/17 at 21:00 Potassium Chloride (Klor-Con 20) 20 meq BID PO Last administered on 05/08/17 09:50; Admin Dose 20 MEQ; Start 05/04/17 at 21:00 Nalbuphine HCl (Nubain) 10 mg Q4H PRN IV PRURITUS; Start 05/07/17 at 13:30 Ondansetron HCl (Zofran Inj) 4 mg Q6H PRN IV NAUSEA AND/OR VOMITING; Start 05/07/17 at 13:30 Furosemide 20 mg 20 mg DAILY IV Last administered on 05/08/17 09:52; Admin Dose 20 MG; Start 05/08/17 at 09:00 Phenylephrine HCl/ Dextrose (Ruben-Syneph/D5W) 500 ml @ 75 mls/hr TITRATE IV Last administered on 05/07/17 17:16; Admin Dose 7.5 MLS/HR; Start 05/07/17 at 15:30 Metoprolol Tartrate (Lopressor) 25 mg BID PO ; Start 05/08/17 at 14:00 NGOC GARZA MD May 08, 2017 15:17
[2017-05-08] MEDS: METOPROLOL 25 MG TAB PO SCH ×2 (17:59→23:46)
--- NOTE | 2017-05-08 18:59 | PN ---
Date/Time of Note Date/Time of Note DATE: 05/08/17 TIME: 18:55 Assessment/Plan VTE Prophylaxis VTE Prophylaxis Intervention: SCD's Lines/Catheters IV [facility] Type [facility] Peripheral IV Central line still needed: Yes Urinary Cath still in place: Yes Reason Cath still needed: urinary retention Assessment/Plan Chief Complaint/Hosp Course Patient is s/p right VATS decortication yesterday, awake alert, pain is well controlled, continue monitor chest tube drainage,ICU Care Assessment/Plan - Bilateral pleural effusions right more than left, status post right thoracentesis 04/20. S/p right chest tube insertion on 04/[address] Jackson, vascular surgery. S/p right thoracentesis 04/26. S/P Right VATS decortication on 05/07. - Acute respiratory failure secondary to #1, Dr. Damico is following in pulmonology consultation continue oxygen oxygen supplementation - Severe sepsis 2/2 to liver abscess, resolving. Continue antibiotics per ID. is following in infection disease consultation - Liver abscess unchanged per recent CT, s/p CT guided drainage 04/15/2017, s/p CT guided percutaneous drainage of liver abscess 04/23, status post CT-guided liver abscess drainage 04/27 - Normocytic anemia requiring blood transfusion - Hx of rectal CA s/p Low anterior resection 08/29/2016 Further recommendations based on clinical course. Plan of care discussed with Dr. Dior Problems: Exam/Review of Systems Vital Signs Vitals Vital Signs Date Time Temp Pulse Resp B/P Pulse Ox O2 Delivery O2 Flow Rate FiO2 05/08/17 16:30 85 11 159/77 98 05/08/17 16:00 Nasal Cannula 2.0 05/08/17 16:00 98.1 05/08/17 04:21 27 Intake and Output 05/07/17 05/07/17 05/08/17 15:00 23:00 07:00 Intake Total 3275 ml 1451.0 ml 637 ml Output Total 1670 ml 505 ml 700 ml Balance 1605 ml 946.0 ml -63 ml Exam Constitutional: alert Neck: supple Respiratory: diminished breath sounds, R CT*2 Cardiovascular: nl pulses Gastrointestinal: other (Hepatic drain), soft Extremities: normal pulses Results Result Diagram: 05/08/1743405/08/17434 Results 24 hrs Laboratory Tests Test 05/07/17 21:45 05/08/17 04:35 05/08/17 05:25 05/08/17 07:14 Bedside Glucose 135 111 White Blood Count 16.7 #H Red Blood Count 3.31 L Hemoglobin 10.4 L Hematocrit 29.9 L Mean Corpuscular Volume 90.3 Mean Corpuscular Hemoglobin 31.4 Mean Corpuscular Hemoglobin Concent 34.8 Red Cell Distribution Width 14.5 Platelet Count 454 #H Mean Platelet Volume 8.2 Neutrophils % 79.5 H Lymphocytes % 10.1 L Monocytes % 9.4 Eosinophils % 0.1 Basophils % 0.2 Nucleated Red Blood Cells % 0.0 Neutrophils # 13.3 H Lymphocytes # 1.7 Monocytes # 1.6 H Eosinophils # 0.0 Basophils # 0.0 Nucleated Red Blood Cells # 0.0 Sodium Level 137 Potassium Level 4.4 Chloride Level 104 Carbon Dioxide Level 28 Anion Gap 9 Blood Urea Nitrogen 13 Creatinine 0.37 L Glucose Level 127 Calcium Level 8.7 Lab Scanned Report BLOOD TRANSFUSION Test 05/08/17 10:37 05/08/17 16:32 Bedside Glucose 98 112 Medications Medications Current Medications Miscellaneous Information 1 ea NOTE XX ; Start 04/13/17 at 21:30 Glucose (Glutose) 15 gm Q15M PRN PO DECREASED GLUCOSE; Start 04/13/17 at 21:30 Glucose (Glutose) 22.5 gm Q15M PRN PO DECREASED GLUCOSE; Start 04/13/17 at 21: 30 Dextrose (D50w Syringe) 25 ml Q15M PRN IV DECREASED GLUCOSE; Start 04/13/17 at 21:30 Dextrose (D50w Syringe) 50 ml Q15M PRN IV DECREASED GLUCOSE; Start 04/13/17 at 21:30 Glucagon (Glucagen) 1 mg Q15M PRN IM DECREASED GLUCOSE; Start 04/13/17 at 21:30 Glucose (Glutose) 15 gm Q15M PRN BUCCAL DECREASED GLUCOSE; Start 04/13/17 at 21 :30 Ondansetron HCl (Zofran Inj) 4 mg Q6 PRN IV NAUSEA AND/OR VOMITING Last administered on 04/26/17t 20:25; Admin Dose 4 MG; Start 04/13/17 at 21:30 Guaifenesin/ Dextromethorphan (Robitussin Dm Liquid Cup) 5 ml Q4H PRN PO COUGH Last administered on 04/19/17 05:09; Admin Dose 5 ML; Start 04/15/17 at 16:30 Pantoprazole (Protonix Tab) 40 mg DAILY@06 PO Last administered on 05/08/17 05 :41; Admin Dose 40 MG; Start 04/17/17 at 06:00 Acetaminophen (Tylenol Tab) 500 mg Q6H PRN PO PAIN AND OR ELEVATED TEMP Last administered on 05/06/17 03:25; Admin Dose 500 MG; Start 04/17/17 at 03:00 Magnesium Hydroxide 30 ml 30 ml DAILY PRN PO CONSTIPATION Last administered on 04/28/17 18:33; Admin Dose 30 ML; Start 04/17/17 at 11:30 Ampicillin Sodium/ Sulbactam Sodium (Unasyn 1.5gm/NS (Pmx)) 50 ml @ 100 mls/hr Q6 IVPB Last administered on 05/08/17 17:58; Admin Dose 100 MLS/HR; Start at 18:00 Fentanyl (Duragesic 12 Mcg/Hr Patch) 1 patch Q72H TRANSDERM Last administered on 05/08/17 14:36; Admin Dose 1 PATCH; Start 04/22/17 at 05:30 Morphine Sulfate (morphine) 1 mg Q4H PRN IV SEVERE PAIN LEVEL 7-10 Last administered on 05/08/17 02:30; Admin Dose 1 MG; Start 04/22/17 at 17:30 Metoclopramide HCl (Reglan) 10 mg Q6H PRN IV NAUSEA Last administered on 20:18; Admin Dose 10 MG; Start 04/22/17 at 21:00 Enoxaparin Sodium (Lovenox) 30 mg DAILY SC Last administered on 05/06/17 09:18 ; Admin Dose 30 MG; Start 04/23/17 at 20:30 Acetaminophen (Tylenol Supp) 650 mg Q6H PRN [place] FEVER GREATER THAN 100.6; Start 04/23/17 at 20:30 Acetaminophen (Tylenol Tab) 650 mg Q6H PRN PO PAIN AND OR ELEVATED TEMP Last administered on 05/08/17 10:10; Admin Dose 650 MG; Start 04/23/17 at 20:30 Lactobacillus Acidophilus/ Rhamnosus (Culturelle) 1 cap BID PO Last administered on 05/08/17 09:50; Admin Dose 1 CAP; Start 04/24/17 at 11:30 Diagnostic Test (Pha) (Accu-Chek) 1 ea 02 XX ; Start 04/26/17 at 02:00 Docusate Sodium (Colace) 100 mg BID PO Last administered on 05/08/17 09:51; Admin Dose 100 MG; Start 04/30/17 at 21:00 Potassium Chloride (Klor-Con 20) 20 meq BID PO Last administered on 05/08/17 09:50; Admin Dose 20 MEQ; Start 05/04/17 at 21:00 Nalbuphine HCl (Nubain) 10 mg Q4H PRN IV PRURITUS; Start 05/07/17 at 13:30 Ondansetron HCl (Zofran Inj) 4 mg Q6H PRN IV NAUSEA AND/OR VOMITING; Start 05/07/17 at 13:30 Furosemide 20 mg 20 mg DAILY IV Last administered on 05/08/17 09:52; Admin Dose 20 MG; Start 05/08/17 at 09:00 Phenylephrine HCl/ Dextrose (Ruben-Syneph/D5W) 500 ml @ 75 mls/hr TITRATE IV Last administered on 05/07/17 17:16; Admin Dose 7.5 MLS/HR; Start 05/07/17 at 15:30 Metoprolol Tartrate (Lopressor) 25 mg BID PO Last administered on 05/08/17 17: 59; Admin Dose 25 MG; Start 05/08/17 at 14:00 WINDY EMERY May 08, 2017 18:59
[2017-05-09] VITALS (12 sets, daily range): BP systolic 121–146; BP diastolic 63–83; PULSE 77–91; RESP 18–19
[2017-05-09] MEDS: AMPICILLIN/SULB 1.5GM/NS (PMX) 50 ML IVPB SCH ×4 (00:04→18:09)
[2017-05-09] MEDS: ACCU-CHEK XX SCH (02:00)
[2017-05-09] MEDS: PANTOPRAZOLE (EC) 40 MG TAB PO SCH (05:46)
[2017-05-09 06:12] LABS: BASOPHILS % 0.3 % (0.0-2.0); EOSINOPHILS # 0.1 10^3/ul (0.0-0.5); EOSINOPHILS % 1.1 % (0.0-7.0); HEMATOCRIT 30.9 % (37.0-47.0); HEMOGLOBIN 10.2 g/dl (12.0-16.0); LYMPHOCYTES # 2.3 10^3/ul (0.8-2.9); LYMPHOCYTES % 17.9 % (15.0-51.0); MEAN CORPUSCULAR HEMOGLOBIN 30.1 pg (29.0-33.0); MEAN CORPUSCULAR VOLUME 91.2 fl (82.0-101.0); MEAN PLATELET VOLUME 8.3 fl (7.4-10.4); MONOCYTE # 1.4 10^3/ul (0.3-0.9); MONOCYTES % 10.8 % (0.0-11.0); NEUTROPHIL # 8.9 10^3/ul (1.6-7.5); NEUTROPHILS % 69.2 % (39.0-77.0); PLATELET COUNT 432 10^3/UL (140-415); RED BLOOD COUNT 3.39 10^6/ul (4.20-5.40); RED CELL DISTRIBUTION WIDTH 14.2 % (11.5-14.5); WHITE BLOOD COUNT 12.9 10^3/ul (4.8-10.8)
[2017-05-09 06:40] LABS: CALCIUM 9.1 mg/dl (8.4-10.2); CREATININE 0.41 mg/dl (0.44-1.00); MAGNESIUM 1.6 mg/dl (1.7-2.5); POTASSIUM 4.2 mmol/L (3.5-5.1)
[2017-05-09] MEDS: POTASSIUM CHLORIDE (SR) 20 MEQ TAB PO SCH ×2 (08:37→20:53)
[2017-05-09] MEDS: LACTOBACILLUS RHAMNOSUS CAP PO SCH ×2 (08:37→20:47)
[2017-05-09] MEDS: ACETAMINOPHEN 325 MG TAB PO PRN ×3 (08:37→22:16)
[2017-05-09] MEDS: ENOXAPARIN 30 MG/0.3 ML SYG SC SCH (08:38)
[2017-05-09] MEDS: DOCUSATE SODIUM 100 MG CAP PO SCH ×2 (08:38→20:47)
[2017-05-09] MEDS: METOPROLOL 25 MG TAB PO SCH ×2 (08:39→20:47)
[2017-05-09] MEDS: FUROSEMIDE 20 MG INJ IV SCH (08:39)
[2017-05-09] MEDS: Insulin NOVOLOG SS MILD Algorithm (SS with meals and bedtime) SC SCH ×4 (08:54→20:48)
--- NOTE | 2017-05-09 12:17 | RADRPT ---
PROCEDURE: XR Chest. CLINICAL INDICATION: Shortness of breath. TECHNIQUE: Single frontal view. COMPARISON: 05/05/2017. FINDINGS: There is a new right chest tube in satisfactory position. A moderate right pleural effusion is small er than seen previously. There is improved aeration of the right lung. The left lung is clear and th ere is no left pleural effusion. The heart size is normal. There is no pneumothorax. IMPRESSION: 1. New right chest tube with improved aeration of the right lung and smaller right pleural effusion . RPTAT: QQ .Logan Decker MD, MD Date Time Electronically viewed and signed by .Logan Decker MD, on 05/09/2017 12:17 .R/
--- NOTE | 2017-05-09 13:04 | PN ---
Date/Time of Note Date/Time of Note DATE: 05/09/17 TIME: 13:03 Assessment/Plan Lines/Catheters IV Catheter Type (from Nrsg): Saline Lock Khan in Place (from Nrsg): Yes Assessment/Plan Chief Complaint/Hosp Course P Right VATS decortication CXR Much improved Continue CT SXN Continue antibiotics per ID Problems: Subjective 24 Hr Interval Summary Constitutional: improved Pain Control: mild Exam/Review of Systems Vital Signs Vitals Vital Signs Date Time Temp Pulse Resp B/P Pulse Ox O2 Delivery O2 Flow Rate FiO2 05/09/17 12:00 80 05/09/17 11:20 98.3 18 123/70 99 05/09/17 07:20 Nasal Cannula 3.0 05/08/17 04:21 27 Intake and Output 05/08/17 05/08/17 05/09/17 15:00 23:00 07:00 Intake Total 50 ml 450 ml 600 ml Output Total 1880 ml 750 ml Balance 50 ml -1430 ml -150 ml Exam ENMT: mucosa pink and moist, nl external ears & nose, nl lips & teeth, nl nasal mucosa & septum Neck: non-tender, supple Respiratory: clear to auscultation, normal air movement Results Result Diagram: 05/09/17 0517 05/09/17 0517 ADRIAN NO MD May 09, 2017 13:04
--- NOTE | 2017-05-09 14:21 | CONS ---
Date/Time of Note Date/Time of Note DATE: 05/09/17 TIME: 14:18 Assessment/Plan Assessment/Plan Chief Complaint/Hosp Course - severe sepsis due to pyogenic liver abscess, loculated pleural effusion s/p R thoracotomy, thoracoscopy, total pulmonary decortication on 05/07/2017. Path showed fibrin, necrotic tissue and abscess, no evidence of malignancy. - multiloculated pyogenic liver abscess s/p CT guided drainage catheter placement 04/15/2017, 04/23/2017, s/p repeat drainage 04/27/2017; cultures from gamma hemolytic strep, cultures from 04/23/2017 alpha hemolytic strep - loculated pleural effusion likely secondary to hepatic process/Hepatic hydrothorax, R>L, s/p R thoracentesis on 04/20/2017, s/p chest tube placement on 04/22/2017 - intermittent diarrhea - normocytic anemia requiring blood transfusion - coagulopathy, improved - Transaminitis, improved - Hyponatremia - CoNS in urine culture with trivial pyuria, likely contaminant - Hx of rectal CA s/p Low anterior resection 08/29/2016 - Severe protein calorie malnutrition - allergy to vancomycin recommendations: - pending results: bacterial, fungal and AFB cultures from VATS. - continue amp/sulbactam (04/18/2017-); s/p linezolid and pip/tazo (04/13-2016). - I will adjust her antibiotic if needed based on the new cultures from VATS - we recommend long-term (6 weeks at least) antibiotic administration; we recommend repeat imaging prior to antibiotic cessation to ensure resolution management d/w Pt. Discussed with Dr. Jackson yesterday Problems: Consultation Date/Type/Reason Admit Date/Time Apr 13, 2017 at 19:51 Initial Consult Date 04/21/17 Type of Consultation: ID Referring Provider: DARREL BURT MD 24 HR Interval Summary Constitutional: other ("pain") Detailed Summary Eyes: no complaints ENT: no complaints Respiratory: pleuritic pain (from VATS) Cardiovascular: no complaints Gastrointestinal: no complaints Genitourinary: other (FC) Musculoskeletal: no complaints Skin: no complaints Neurologic: no complaints Exam/Review of Systems Vital Signs Vitals Vital Signs Date Time Temp Pulse Resp B/P Pulse Ox O2 Delivery O2 Flow Rate FiO2 05/09/17 12:00 80 05/09/17 11:20 98.3 18 123/70 99 05/09/17 07:20 Nasal Cannula 3.0 05/08/17 04:21 27 Intake and Output 05/08/17 05/08/17 05/09/17 15:00 23:00 07:00 Intake Total 50 ml 450 ml 600 ml Output Total 1880 ml 750 ml Balance 50 ml -1430 ml -150 ml Exam Constitutional: frail Psych: nl mood/affect, no complaints Head: atraumatic, normocephalic Eyes: nl conjunctiva, nl lids, nl sclera ENMT: mucosa pink and moist, nl external ears & nose, nl nasal mucosa & septum Neck: supple Respiratory: diminished breath sounds, other (Y chest tube in R chest) Cardiovascular: nl pulses, regular rate and rhythm Gastrointestinal: non-tender, other (external drainage catheter with a bag), soft Extremities: No edema 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: 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 OPERATOR II-XII 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, 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, nl speech Results Result Diagram: 05/09/1751605/09/17516 Results 24 hrs Laboratory Tests Test 05/08/17 16:32 05/08/17 21:46 05/09/17 05:17 05/09/17 08:53 Bedside Glucose 112 92 79 White Blood Count 12.9 #H Red Blood Count 3.39 L Hemoglobin 10.2 L Hematocrit 30.9 L Mean Corpuscular Volume 91.2 Mean Corpuscular Hemoglobin 30.1 Mean Corpuscular Hemoglobin Concent 33.0 Red Cell Distribution Width 14.2 Platelet Count 432 H Mean Platelet Volume 8.3 Neutrophils % 69.2 Lymphocytes % 17.9 Monocytes % 10.8 Eosinophils % 1.1 Basophils % 0.3 Nucleated Red Blood Cells % 0.0 Neutrophils # 8.9 H Lymphocytes # 2.3 Monocytes # 1.4 H Eosinophils # 0.1 Basophils # 0.0 Nucleated Red Blood Cells # 0.0 Sodium Level 134 L Potassium Level 4.2 Chloride Level 96 L Carbon Dioxide Level 30 Anion Gap 12 Blood Urea Nitrogen 7 Creatinine 0.41 L Glucose Level 84 # Calcium Level 9.1 Phosphorus Level 3.0 Magnesium Level 1.6 L Random Cortisol 25.6 Test 05/09/17 12:49 Bedside Glucose 94 Medications Medications Current Medications Miscellaneous Information 1 ea NOTE XX ; Start 04/13/17 at 21:30 Glucose (Glutose) 15 gm Q15M PRN PO DECREASED GLUCOSE; Start 04/13/17 at 21:30 Glucose (Glutose) 22.5 gm Q15M PRN PO DECREASED GLUCOSE; Start 04/13/17 at 21: 30 Dextrose (D50w Syringe) 25 ml Q15M PRN IV DECREASED GLUCOSE; Start 04/13/17 at 21:30 Dextrose (D50w Syringe) 50 ml Q15M PRN IV DECREASED GLUCOSE; Start 04/13/17 at 21:30 Glucagon (Glucagen) 1 mg Q15M PRN IM DECREASED GLUCOSE; Start 04/13/17 at 21:30 Glucose (Glutose) 15 gm Q15M PRN BUCCAL DECREASED GLUCOSE; Start 04/13/17 at 21 :30 Ondansetron HCl (Zofran Inj) 4 mg Q6 PRN IV NAUSEA AND/OR VOMITING Last administered on 04/26/17 20:25; Admin Dose 4 MG; Start 04/13/17 at 21:30 Guaifenesin/ Dextromethorphan (Robitussin Dm Liquid Cup) 5 ml Q4H PRN PO COUGH Last administered on 04/19/17 05:09; Admin Dose 5 ML; Start 04/15/17 at 16:30 Pantoprazole (Protonix Tab) 40 mg DAILY@06 PO Last administered on 05/09/17 05 :46; Admin Dose 40 MG; Start 04/17/17 at 06:00 Acetaminophen (Tylenol Tab) 500 mg Q6H PRN PO PAIN AND OR ELEVATED TEMP Last administered on 05/06/17 03:25; Admin Dose 500 MG; Start 04/17/17 at 03:00 Magnesium Hydroxide 30 ml 30 ml DAILY PRN PO CONSTIPATION Last administered on 04/28/17 18:33; Admin Dose 30 ML; Start 04/17/17 at 11:30 Ampicillin Sodium/ Sulbactam Sodium (Unasyn 1.5gm/NS (Pmx)) 50 ml @ 100 mls/hr Q6 IVPB Last administered on 05/09/17 12:48; Admin Dose 100 MLS/HR; Start at 18:00 Fentanyl (Duragesic 12 Mcg/Hr Patch) 1 patch Q72H TRANSDERM Last administered on 05/08/17 14:36; Admin Dose 1 PATCH; Start 04/22/17 at 05:30 Morphine Sulfate (morphine) 1 mg Q4H PRN IV SEVERE PAIN LEVEL 7-10 Last administered on 05/08/17 02:30; Admin Dose 1 MG; Start 04/22/17 at 17:30 Metoclopramide HCl (Reglan) 10 mg Q6H PRN IV NAUSEA Last administered on 20:18; Admin Dose 10 MG; Start 04/22/17 at 21:00 Enoxaparin Sodium (Lovenox) 30 mg DAILY SC Last administered on 05/09/17 08:38 ; Admin Dose 30 MG; Start 04/23/17 at 20:30 Acetaminophen (Tylenol Supp) 650 mg Q6H PRN [place] FEVER GREATER THAN 100.6; Start 04/23/17 at 20:30 Acetaminophen (Tylenol Tab) 650 mg Q6H PRN PO PAIN AND OR ELEVATED TEMP Last administered on 05/09/17 08:37; Admin Dose 650 MG; Start 04/23/17 at 20:30 Lactobacillus Acidophilus/ Rhamnosus (Culturelle) 1 cap BID PO Last administered on 05/09/17 08:37; Admin Dose 1 CAP; Start 04/24/17 at 11:30 Diagnostic Test (Pha) (Accu-Chek) 1 ea 02 XX ; Start 04/26/17 at 02:00 Docusate Sodium (Colace) 100 mg BID PO Last administered on 05/09/17 08:38; Admin Dose 100 MG; Start 04/30/17 at 21:00 Potassium Chloride (Klor-Con 20) 20 meq BID PO Last administered on 05/09/17 08:37; Admin Dose 20 MEQ; Start 05/04/17 at 21:00 Nalbuphine HCl (Nubain) 10 mg Q4H PRN IV PRURITUS; Start 05/07/17 at 13:30 Ondansetron HCl (Zofran Inj) 4 mg Q6H PRN IV NAUSEA AND/OR VOMITING; Start 05/07/17 at 13:30 Furosemide (Lasix) 20 mg DAILY IV Last administered on 05/09/17 08:39; Admin Dose 20 MG; Start 05/08/17 at 09:00 Metoprolol Tartrate (Lopressor) 25 mg BID PO Last administered on 10/7/17at 08: 39; Admin Dose 25 MG; Start 05/08/17 at 14:00 AARON ANSARI M.D. May 09, 2017 14:21
--- NOTE | 2017-05-09 14:56 | CONS ---
Date/Time of Note Date/Time of Note DATE: 05/09/17 TIME: 14:53 Assessment/Plan Assessment/Plan Chief Complaint/Hosp Course Problems: Additional Assessment/Plan 1. Bilateral pleural effusions right more than left, status post right thoracentesis 04/20. S/p right chest tube insertion on 04/[address] Jackson, vascular surgery. S/p right thoracentesis 04/26. - s/p Right VATS decortication 05/07/2017 2. Acute hyponatremia 2/2 Hypovolemic hyponatremia - Resolved 2. sepsis due to liver abscess 3. Hepatic abscess oN CT scan s/p CT guided drainage on 04/15/17 and 04/23/17 4. Acute transaminitis 5. h/o Colon CA s/p previous Surgery 6. Hypokalemia 7. acute resp failiue due to # 1 8. hypomagnesemia Plan : S/p Right VATS decortication, Stable, Cr and Electrolytes stable today, on IV lasix for CHF and pleural effusion - transferred to telemetry floor CXR much improved after surgery, small pleural effusion , will consider changing her lasix to PO tomorrow magnesium sulfate 2 gram IV x 1 dose now IV abx as per ID, renally dose all abx pulmonary ID and G surgery has been following on patient. will follow up Consultation Date/Type/Reason Admit Date/Time Apr 13, 2017 at 19:51 Initial Consult Date 04/13/17 Type of Consultation: NEHPROLOGY Referring Provider: DARREL BURT MD 24 HR Interval Summary Free Text/Dictation pt transferred to telemetry ,right chest tube, mag low, Cr and K normal, good urine output Exam/Review of Systems Vital Signs Vitals Vital Signs Date Time Temp Pulse Resp B/P Pulse Ox O2 Delivery O2 Flow Rate FiO2 05/09/17 14:51 98.2 86 18 131/78 99 05/09/17 07:20 Nasal Cannula 3.0 05/08/17 04:21 27 Intake and Output 05/08/17 05/08/17 05/09/17 15:00 23:00 07:00 Intake Total 50 ml 450 ml 600 ml Output Total 1880 ml 750 ml Balance 50 ml -1430 ml -150 ml Exam Constitutional: alert, frail, oriented Respiratory: diminished breath sounds, other (right chest tube) Cardiovascular: nl pulses, regular rate and rhythm Gastrointestinal: other (external draiange catheters) Musculoskeletal: nl extremities to inspection Extremities: No edema 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: [employer] II-XII intact, 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 Results Result Diagram: 05/09/1751605/09/17516 Results 24 hrs Laboratory Tests Test 05/08/17 16:32 05/08/17 21:46 05/09/17 05:17 05/09/17 08:53 Bedside Glucose 112 92 79 White Blood Count 12.9 #H Red Blood Count 3.39 L Hemoglobin 10.2 L Hematocrit 30.9 L Mean Corpuscular Volume 91.2 Mean Corpuscular Hemoglobin 30.1 Mean Corpuscular Hemoglobin Concent 33.0 Red Cell Distribution Width 14.2 Platelet Count 432 H Mean Platelet Volume 8.3 Neutrophils % 69.2 Lymphocytes % 17.9 Monocytes % 10.8 Eosinophils % 1.1 Basophils % 0.3 Nucleated Red Blood Cells % 0.0 Neutrophils # 8.9 H Lymphocytes # 2.3 Monocytes # 1.4 H Eosinophils # 0.1 Basophils # 0.0 Nucleated Red Blood Cells # 0.0 Sodium Level 134 L Potassium Level 4.2 Chloride Level 96 L Carbon Dioxide Level 30 Anion Gap 12 Blood Urea Nitrogen 7 Creatinine 0.41 L Glucose Level 84 # Calcium Level 9.1 Phosphorus Level 3.0 Magnesium Level 1.6 L Random Cortisol 25.6 Test 05/09/17 12:49 Bedside Glucose 94 Medications Medications Current Medications Miscellaneous Information 1 ea NOTE XX ; Start 04/13/17 at 21:30 Glucose (Glutose) 15 gm Q15M PRN PO DECREASED GLUCOSE; Start 04/13/17 at 21:30 Glucose (Glutose) 22.5 gm Q15M PRN PO DECREASED GLUCOSE; Start 04/13/17 at 21: 30 Dextrose (D50w Syringe) 25 ml Q15M PRN IV DECREASED GLUCOSE; Start 04/13/17 at 21:30 Dextrose (D50w Syringe) 50 ml Q15M PRN IV DECREASED GLUCOSE; Start 04/13/17 at 21:30 Glucagon (Glucagen) 1 mg Q15M PRN IM DECREASED GLUCOSE; Start 04/13/17 at 21:30 Glucose (Glutose) 15 gm Q15M PRN BUCCAL DECREASED GLUCOSE; Start 04/13/17 at 21 :30 Ondansetron HCl (Zofran Inj) 4 mg Q6 PRN IV NAUSEA AND/OR VOMITING Last administered on 04/26/17 20:25; Admin Dose 4 MG; Start 04/13/17 at 21:30 Guaifenesin/ Dextromethorphan (Robitussin Dm Liquid Cup) 5 ml Q4H PRN PO COUGH Last administered on 04/19/17 05:09; Admin Dose 5 ML; Start 04/15/17 at 16:30 Pantoprazole (Protonix Tab) 40 mg DAILY@06 PO Last administered on 05/09/17 05 :46; Admin Dose 40 MG; Start 04/17/17 at 06:00 Acetaminophen (Tylenol Tab) 500 mg Q6H PRN PO PAIN AND OR ELEVATED TEMP Last administered on 05/06/17 03:25; Admin Dose 500 MG; Start 04/17/17 at 03:00 Magnesium Hydroxide 30 ml 30 ml DAILY PRN PO CONSTIPATION Last administered on 04/28/17 18:33; Admin Dose 30 ML; Start 04/17/17 at 11:30 Ampicillin Sodium/ Sulbactam Sodium (Unasyn 1.5gm/NS (Pmx)) 50 ml @ 100 mls/hr Q6 IVPB Last administered on 05/09/17 12:48; Admin Dose 100 MLS/HR; Start at 18:00 Fentanyl (Duragesic 12 Mcg/Hr Patch) 1 patch Q72H TRANSDERM Last administered on 05/08/17 14:36; Admin Dose 1 PATCH; Start 04/22/17 at 05:30 Morphine Sulfate (morphine) 1 mg Q4H PRN IV SEVERE PAIN LEVEL 7-10 Last administered on 05/08/17 02:30; Admin Dose 1 MG; Start 04/22/17 at 17:30 Metoclopramide HCl (Reglan) 10 mg Q6H PRN IV NAUSEA Last administered on 20:18; Admin Dose 10 MG; Start 04/22/17 at 21:00 Enoxaparin Sodium (Lovenox) 30 mg DAILY SC Last administered on 05/09/17 08:38 ; Admin Dose 30 MG; Start 04/23/17 at 20:30 Acetaminophen (Tylenol Supp) 650 mg Q6H PRN [place] FEVER GREATER THAN 100.6; Start 04/23/17 at 20:30 Acetaminophen (Tylenol Tab) 650 mg Q6H PRN PO PAIN AND OR ELEVATED TEMP Last administered on 05/09/17 08:37; Admin Dose 650 MG; Start 04/23/17 at 20:30 Lactobacillus Acidophilus/ Rhamnosus (Culturelle) 1 cap BID PO Last administered on 05/09/17 08:37; Admin Dose 1 CAP; Start 04/24/17 at 11:30 Diagnostic Test (Pha) (Accu-Chek) 1 ea 02 XX ; Start 04/26/17 at 02:00 Docusate Sodium (Colace) 100 mg BID PO Last administered on 05/09/17 08:38; Admin Dose 100 MG; Start 04/30/17 at 21:00 Potassium Chloride (Klor-Con 20) 20 meq BID PO Last administered on 05/09/17 08:37; Admin Dose 20 MEQ; Start 05/04/17 at 21:00 Nalbuphine HCl (Nubain) 10 mg Q4H PRN IV PRURITUS; Start 05/07/17 at 13:30 Ondansetron HCl (Zofran Inj) 4 mg Q6H PRN IV NAUSEA AND/OR VOMITING; Start 05/07/17 at 13:30 Furosemide (Lasix) 20 mg DAILY IV Last administered on 05/09/17 08:39; Admin Dose 20 MG; Start 05/08/17 at 09:00 Metoprolol Tartrate (Lopressor) 25 mg BID PO Last administered on 05/09/17 08: 39; Admin Dose 25 MG; Start 05/08/17 at 14:00 NGOC GARZA MD May 09, 2017 14:56
[2017-05-09] MEDS ORDERED: MAGNESIUM SULFATE 2 GM/50 ML 50 ML IVPB ONE (15:00)
--- NOTE | 2017-05-09 16:14 | PN ---
Date/Time of Note Date/Time of Note DATE: 05/09/17 TIME: 16:03 Assessment/Plan VTE Prophylaxis VTE Prophylaxis Intervention: SCD's Lines/Catheters IV [facility] Sal[facility] Lock Urinary Cath still in place: Yes Assessment/Plan Assessment/Plan -Hypomagnesium- replace, am Mag level - Bilateral pleural effusions right more than left, status post right thoracentesis 04/20. - S/p right chest tube insertion on 04/[address] Jackson, vascular surgery. - S/p right thoracentesis 04/26. - S/P Right VATS decortication on 05/07. - Acute respiratory failure secondary to #1, Dr. Damico is following in pulmonology consultation continue oxygen oxygen supplementation - Severe sepsis 2/2 to liver abscess, resolving. Continue antibiotics per ID. is following in infection disease consultation - Liver abscess unchanged per recent CT, s/p CT guided drainage 04/15/2017, s/p CT guided percutaneous drainage of liver abscess 04/23 - status post CT-guided liver abscess drainage 04/27 - Normocytic anemia requiring blood transfusion - Hx of rectal CA s/p Low anterior resection 08/29/2016 Further recommendations based on clinical course. Plan of care discussed with Dr. Dior Subjective 24 Hr Interval Summary Free Text/Dictation remains on supplement oxygen by [place]- c/o right chest tube insertion site pain, afebrile, DW STAFF Constitutional: requiring O2 Respiratory: shortness of breath Cardiovascular: no complaints Gastrointestinal: no complaints Genitourinary: no complaints Musculoskeletal: no complaints Exam/Review of Systems Vital Signs Vitals Vital Signs Date Time Temp Pulse Resp B/P Pulse Ox O2 Delivery O2 Flow Rate FiO2 05/09/17 14:51 98.2 86 18 131/78 99 05/09/17 07:20 Nasal Cannula 3.0 05/08/17 04:21 27 Intake and Output 05/08/17 05/08/17 05/09/17 15:00 23:00 07:00 Intake Total 50 ml 450 ml 600 ml Output Total 1880 ml 750 ml Balance 50 ml -1430 ml -150 ml Exam Constitutional: alert, oriented Psych: nl mood/affect Respiratory: diminished breath sounds Cardiovascular: nl pulses Musculoskeletal: nl extremities to inspection Extremities: normal pulses 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: 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, nl speech Results Result Diagram: 05/09/1751605/09/17516 Results 24 hrs Laboratory Tests Test 05/08/17 16:32 05/08/17 21:46 05/09/17 05:17 05/09/17 08:53 Bedside Glucose 112 92 79 White Blood Count 12.9 #H Red Blood Count 3.39 L Hemoglobin 10.2 L Hematocrit 30.9 L Mean Corpuscular Volume 91.2 Mean Corpuscular Hemoglobin 30.1 Mean Corpuscular Hemoglobin Concent 33.0 Red Cell Distribution Width 14.2 Platelet Count 432 H Mean Platelet Volume 8.3 Neutrophils % 69.2 Lymphocytes % 17.9 Monocytes % 10.8 Eosinophils % 1.1 Basophils % 0.3 Nucleated Red Blood Cells % 0.0 Neutrophils # 8.9 H Lymphocytes # 2.3 Monocytes # 1.4 H Eosinophils # 0.1 Basophils # 0.0 Nucleated Red Blood Cells # 0.0 Sodium Level 134 L Potassium Level 4.2 Chloride Level 96 L Carbon Dioxide Level 30 Anion Gap 12 Blood Urea Nitrogen 7 Creatinine 0.41 L Glucose Level 84 # Calcium Level 9.1 Phosphorus Level 3.0 Magnesium Level 1.6 L Random Cortisol 25.6 Test 05/09/17 12:49 Bedside Glucose 94 Medications Medications Current Medications Miscellaneous Information 1 ea NOTE XX ; Start 04/13/17 at 21:30 Glucose (Glutose) 15 gm Q15M PRN PO DECREASED GLUCOSE; Start 04/13/17 at 21:30 Glucose (Glutose) 22.5 gm Q15M PRN PO DECREASED GLUCOSE; Start 04/13/17 at 21: 30 Dextrose (D50w Syringe) 25 ml Q15M PRN IV DECREASED GLUCOSE; Start 04/13/17 at 21:30 Dextrose (D50w Syringe) 50 ml Q15M PRN IV DECREASED GLUCOSE; Start 04/13/17 at 21:30 Glucagon (Glucagen) 1 mg Q15M PRN IM DECREASED GLUCOSE; Start 04/13/17 at 21:30 Glucose (Glutose) 15 gm Q15M PRN BUCCAL DECREASED GLUCOSE; Start 04/13/17 at 21 :30 Ondansetron HCl (Zofran Inj) 4 mg Q6 PRN IV NAUSEA AND/OR VOMITING Last administered on 04/26/17t 20:25; Admin Dose 4 MG; Start 04/13/17 at 21:30 Guaifenesin/ Dextromethorphan (Robitussin Dm Liquid Cup) 5 ml Q4H PRN PO COUGH Last administered on 04/19/17 05:09; Admin Dose 5 ML; Start 04/15/17 at 16:30 Pantoprazole (Protonix Tab) 40 mg DAILY@06 PO Last administered on 05/09/17 05 :46; Admin Dose 40 MG; Start 04/17/17 at 06:00 Acetaminophen (Tylenol Tab) 500 mg Q6H PRN PO PAIN AND OR ELEVATED TEMP Last administered on 05/06/17 03:25; Admin Dose 500 MG; Start 04/17/17 at 03:00 Magnesium Hydroxide 30 ml 30 ml DAILY PRN PO CONSTIPATION Last administered on 04/28/17 18:33; Admin Dose 30 ML; Start 04/17/17 at 11:30 Ampicillin Sodium/ Sulbactam Sodium (Unasyn 1.5gm/NS (Pmx)) 50 ml @ 100 mls/hr Q6 IVPB Last administered on 05/09/17 12:48; Admin Dose 100 MLS/HR; Start at 18:00 Fentanyl (Duragesic 12 Mcg/Hr Patch) 1 patch Q72H TRANSDERM Last administered on 05/08/17 14:36; Admin Dose 1 PATCH; Start 04/22/17 at 05:30 Morphine Sulfate (morphine) 1 mg Q4H PRN IV SEVERE PAIN LEVEL 7-10 Last administered on 05/08/17 02:30; Admin Dose 1 MG; Start 04/22/17 at 17:30 Metoclopramide HCl (Reglan) 10 mg Q6H PRN IV NAUSEA Last administered on 20:18; Admin Dose 10 MG; Start 04/22/17 at 21:00 Enoxaparin Sodium (Lovenox) 30 mg DAILY SC Last administered on 05/09/17 08:38 ; Admin Dose 30 MG; Start 04/23/17 at 20:30 Acetaminophen (Tylenol Supp) 650 mg Q6H PRN [place] FEVER GREATER THAN 100.6; Start 04/23/17 at 20:30 Acetaminophen (Tylenol Tab) 650 mg Q6H PRN PO PAIN AND OR ELEVATED TEMP Last administered on 05/09/17 15:42; Admin Dose 650 MG; Start 04/23/17 at 20:30 Lactobacillus Acidophilus/ Rhamnosus (Culturelle) 1 cap BID PO Last administered on 05/09/17 08:37; Admin Dose 1 CAP; Start 04/24/17 at 11:30 Diagnostic Test (Pha) (Accu-Chek) 1 ea 02 XX ; Start 04/26/17 at 02:00 Docusate Sodium (Colace) 100 mg BID PO Last administered on 05/09/17 08:38; Admin Dose 100 MG; Start 04/30/17 at 21:00 Potassium Chloride (Klor-Con 20) 20 meq BID PO Last administered on 05/09/17 08:37; Admin Dose 20 MEQ; Start 05/04/17 at 21:00 Nalbuphine HCl (Nubain) 10 mg Q4H PRN IV PRURITUS; Start 05/07/17 at 13:30 Ondansetron HCl (Zofran Inj) 4 mg Q6H PRN IV NAUSEA AND/OR VOMITING; Start 05/07/17 at 13:30 Furosemide (Lasix) 20 mg DAILY IV Last administered on 05/09/17 08:39; Admin Dose 20 MG; Start 05/08/17 at 09:00 Metoprolol Tartrate 25 mg 25 mg BID PO Last administered on 05/09/17 08:39; Admin Dose 25 MG; Start 05/08/17 at 14:00 Magnesium Sulfate (Magnesium Sulfate 2 Gm/50 ml) 50 ml @ 25 mls/hr ONCE ONCE IVPB Last administered on 05/09/17 15:42; Admin Dose 25 MLS/HR; Start at 15:00; Stop 05/09/17 at 16:59 MESHA VELASQUEZ May 09, 2017 16:13
--- NOTE | 2017-05-09 17:23 | CONS ---
Date/Time of Note Date/Time of Note DATE: 05/09/17 TIME: 17:21 Consult Date/Type/Reason Admit Date/Time Apr 13, 2017 at 19:51 Initial Consult Date 04/15/17 Type of Consultation: Pulm Ordering Provider: DARREL BURT MD Subjective No events. Objective Vital Signs Date Time Temp Pulse Resp B/P Pulse Ox O2 Delivery O2 Flow Rate FiO2 05/09/17 16:56 2.0 05/09/17 16:00 79 05/09/17 14:51 98.2 18 131/78 99 05/09/17 07:20 Nasal Cannula 05/08/17 04:21 27 Intake and Output 05/08/17 05/08/17 05/09/17 15:00 23:00 07:00 Intake Total 50 ml 450 ml 600 ml Output Total 1880 ml 750 ml Balance 50 ml -1430 ml -150 ml Exam HEENT: Neck supple; no JVD; no LAD CVS: RRR, S1 and S2 CHEST: Decreased R BS ABD: Soft, NT, + BS EXT: No c/c/e Results/Medications Result Diagram: 05/09/1751605/09/17516 Results 24 hrs Laboratory Tests Test 05/08/17 21:46 05/09/17 05:17 05/09/17 08:53 05/09/17 12:49 Bedside Glucose 92 79 94 White Blood Count 12.9 #H Red Blood Count 3.39 L Hemoglobin 10.2 L Hematocrit 30.9 L Mean Corpuscular Volume 91.2 Mean Corpuscular Hemoglobin 30.1 Mean Corpuscular Hemoglobin Concent 33.0 Red Cell Distribution Width 14.2 Platelet Count 432 H Mean Platelet Volume 8.3 Neutrophils % 69.2 Lymphocytes % 17.9 Monocytes % 10.8 Eosinophils % 1.1 Basophils % 0.3 Nucleated Red Blood Cells % 0.0 Neutrophils # 8.9 H Lymphocytes # 2.3 Monocytes # 1.4 H Eosinophils # 0.1 Basophils # 0.0 Nucleated Red Blood Cells # 0.0 Sodium Level 134 L Potassium Level 4.2 Chloride Level 96 L Carbon Dioxide Level 30 Anion Gap 12 Blood Urea Nitrogen 7 Creatinine 0.41 L Glucose Level 84 # Calcium Level 9.1 Phosphorus Level 3.0 Magnesium Level 1.6 L Random Cortisol 25.6 Medications Current Medications Miscellaneous Information 1 ea NOTE XX ; Start 9/11/17 at 21:30 Glucose (Glutose) 15 gm Q15M PRN PO DECREASED GLUCOSE; Start 04/13/17 at 21:30 Glucose (Glutose) 22.5 gm Q15M PRN PO DECREASED GLUCOSE; Start 04/13/17 at 21: 30 Dextrose (D50w Syringe) 25 ml Q15M PRN IV DECREASED GLUCOSE; Start 04/13/17 at 21:30 Dextrose (D50w Syringe) 50 ml Q15M PRN IV DECREASED GLUCOSE; Start 04/13/17 at 21:30 Glucagon (Glucagen) 1 mg Q15M PRN IM DECREASED GLUCOSE; Start 04/13/17 at 21:30 Glucose (Glutose) 15 gm Q15M PRN BUCCAL DECREASED GLUCOSE; Start 04/13/17 at 21 :30 Ondansetron HCl (Zofran Inj) 4 mg Q6 PRN IV NAUSEA AND/OR VOMITING Last administered on 04/26/17 20:25; Admin Dose 4 MG; Start 04/13/17 at 21:30 Guaifenesin/ Dextromethorphan (Robitussin Dm Liquid Cup) 5 ml Q4H PRN PO COUGH Last administered on 04/19/17 05:09; Admin Dose 5 ML; Start 04/15/17 at 16:30 Pantoprazole (Protonix Tab) 40 mg DAILY@06 PO Last administered on 05/09/17 05 :46; Admin Dose 40 MG; Start 04/17/17 at 06:00 Acetaminophen (Tylenol Tab) 500 mg Q6H PRN PO PAIN AND OR ELEVATED TEMP Last administered on 05/06/17 03:25; Admin Dose 500 MG; Start 04/17/17 at 03:00 Magnesium Hydroxide 30 ml 30 ml DAILY PRN PO CONSTIPATION Last administered on 04/28/17 18:33; Admin Dose 30 ML; Start 04/17/17 at 11:30 Ampicillin Sodium/ Sulbactam Sodium (Unasyn 1.5gm/NS (Pmx)) 50 ml @ 100 mls/hr Q6 IVPB Last administered on 05/09/17 12:48; Admin Dose 100 MLS/HR; Start at 18:00 Fentanyl (Duragesic 12 Mcg/Hr Patch) 1 patch Q72H TRANSDERM Last administered on 05/08/17 14:36; Admin Dose 1 PATCH; Start 04/22/17 at 05:30 Morphine Sulfate (morphine) 1 mg Q4H PRN IV SEVERE PAIN LEVEL 7-10 Last administered on 05/08/17 02:30; Admin Dose 1 MG; Start 04/22/17 at 17:30 Metoclopramide HCl (Reglan) 10 mg Q6H PRN IV NAUSEA Last administered on 20:18; Admin Dose 10 MG; Start 04/22/17 at 21:00 Enoxaparin Sodium (Lovenox) 30 mg DAILY SC Last administered on 05/09/17 08:38 ; Admin Dose 30 MG; Start 04/23/17 at 20:30 Acetaminophen (Tylenol Supp) 650 mg Q6H PRN [place] FEVER GREATER THAN 100.6; Start 04/23/17 at 20:30 Acetaminophen (Tylenol Tab) 650 mg Q6H PRN PO PAIN AND OR ELEVATED TEMP Last administered on 05/09/17 15:42; Admin Dose 650 MG; Start 04/23/17 at 20:30 Lactobacillus Acidophilus/ Rhamnosus (Culturelle) 1 cap BID PO Last administered on 05/09/17 08:37; Admin Dose 1 CAP; Start 04/24/17 at 11:30 Diagnostic Test (Pha) (Accu-Chek) 1 ea 02 XX ; Start 04/26/17 at 02:00 Docusate Sodium (Colace) 100 mg BID PO Last administered on 05/09/17 08:38; Admin Dose 100 MG; Start 04/30/17 at 21:00 Potassium Chloride (Klor-Con 20) 20 meq BID PO Last administered on 05/09/17 08:37; Admin Dose 20 MEQ; Start 05/04/17 at 21:00 Nalbuphine HCl (Nubain) 10 mg Q4H PRN IV PRURITUS; Start 05/07/17 at 13:30 Ondansetron HCl (Zofran Inj) 4 mg Q6H PRN IV NAUSEA AND/OR VOMITING; Start 05/07/17 at 13:30 Furosemide (Lasix) 20 mg DAILY IV Last administered on 05/09/17 08:39; Admin Dose 20 MG; Start 05/08/17 at 09:00 Metoprolol Tartrate (Lopressor) 25 mg BID PO Last administered on 05/09/17t 08: 39; Admin Dose 25 MG; Start 05/08/17 at 14:00 Assessment/Plan Chief Complaint/Hosp Course 66-year-old female with a history of colon/rectal ca presenting with sepsis due to liver abscesses, whose course has been complicated by mild hypoxemic resp insufficiency with enlarging R.> L effusions. Problems: Additional Assessment/Plan IMP: 1. Loculated pleural effusion likely secondary to hepatic abscesses--s/p VATS decortication RECS: 1. CT management as per CT surg 2. ICS 3. OOB 4. Abx per ID LAUREN COELHO MD May 09, 2017 17:23
--- NOTE | 2017-05-09 18:57 | CONS ---
Date/Time of Note Date/Time of Note DATE: 05/09/17 TIME: 18:54 Assessment/Plan Assessment/Plan Additional Assessment/Plan Abnormal electrocardiogram Liver abscess s/p CT guided drainage Lung ca s/p resection Hyponatremia Pleural Effusion s/p VATS/decortication Continue antibiotics Continue Metoprolol Continue GI and DVT Prophylaxis Consultation Date/Type/Reason Admit Date/Time Apr 13, 2017 at 19:51 Constitutional: requiring O2 Eyes: no complaints ENT: no complaints Respiratory: shortness of breath Cardiovascular: no complaints Gastrointestinal: no complaints Genitourinary: no complaints Musculoskeletal: no complaints Skin: no complaints Neurologic: no complaints Psychological: nl mood/affect Past Medical History Medical History: no pertinent history, cancer, other (Colon cancer) Past Surgical History Past Surgical Hx: other (s/p surgery for colon CA ) Social History Alcohol Use: none Smoking Status: Never smoker Drug Use: none Exam/Review of Systems Vital Signs Vitals Vital Signs Date Time Temp Pulse Resp B/P Pulse Ox O2 Delivery O2 Flow Rate FiO2 05/09/17 16:56 2.0 05/09/17 16:00 79 05/09/17 14:51 98.2 18 131/78 99 05/09/17 07:20 Nasal Cannula 05/08/17 04:21 27 Intake and Output 05/08/17 05/08/17 05/09/17 15:00 23:00 07:00 Intake Total 50 ml 450 ml 600 ml Output Total 1880 ml 750 ml Balance 50 ml -1430 ml -150 ml Exam Constitutional: alert Head: atraumatic, normocephalic Neck: non-tender, supple Respiratory: clear to auscultation Cardiovascular: regular rate and rhythm Gastrointestinal: nl liver, spleen, non-tender, soft Extremities: normal pulses Results Result Diagram: 05/09/1751605/09/17516 Results 24 hrs Laboratory Tests Test 05/08/17 21:46 05/09/17 05:17 05/09/17 08:53 05/09/17 12:49 Bedside Glucose 92 79 94 White Blood Count 12.9 #H Red Blood Count 3.39 L Hemoglobin 10.2 L Hematocrit 30.9 L Mean Corpuscular Volume 91.2 Mean Corpuscular Hemoglobin 30.1 Mean Corpuscular Hemoglobin Concent 33.0 Red Cell Distribution Width 14.2 Platelet Count 432 H Mean Platelet Volume 8.3 Neutrophils % 69.2 Lymphocytes % 17.9 Monocytes % 10.8 Eosinophils % 1.1 Basophils % 0.3 Nucleated Red Blood Cells % 0.0 Neutrophils # 8.9 H Lymphocytes # 2.3 Monocytes # 1.4 H Eosinophils # 0.1 Basophils # 0.0 Nucleated Red Blood Cells # 0.0 Sodium Level 134 L Potassium Level 4.2 Chloride Level 96 L Carbon Dioxide Level 30 Anion Gap 12 Blood Urea Nitrogen 7 Creatinine 0.41 L Glucose Level 84 # Calcium Level 9.1 Phosphorus Level 3.0 Magnesium Level 1.6 L Random Cortisol 25.6 Test 05/09/17 17:33 Bedside Glucose 98 Medications Medications Current Medications Miscellaneous Information 1 ea NOTE XX ; Start 04/13/17 at 21:30 Glucose (Glutose) 15 gm Q15M PRN PO DECREASED GLUCOSE; Start 04/13/17 at 21:30 Glucose (Glutose) 22.5 gm Q15M PRN PO DECREASED GLUCOSE; Start 04/13/17 at 21: 30 Dextrose (D50w Syringe) 25 ml Q15M PRN IV DECREASED GLUCOSE; Start 04/13/17 at 21:30 Dextrose (D50w Syringe) 50 ml Q15M PRN IV DECREASED GLUCOSE; Start 04/13/17 at 21:30 Glucagon (Glucagen) 1 mg Q15M PRN IM DECREASED GLUCOSE; Start 04/13/17 at 21:30 Glucose (Glutose) 15 gm Q15M PRN BUCCAL DECREASED GLUCOSE; Start 04/13/17 at 21 :30 Ondansetron HCl (Zofran Inj) 4 mg Q6 PRN IV NAUSEA AND/OR VOMITING Last administered on 04/26/17 20:25; Admin Dose 4 MG; Start 04/13/17 at 21:30 Guaifenesin/ Dextromethorphan (Robitussin Dm Liquid Cup) 5 ml Q4H PRN PO COUGH Last administered on 04/19/17 05:09; Admin Dose 5 ML; Start 04/15/17 at 16:30 Pantoprazole (Protonix Tab) 40 mg DAILY@06 PO Last administered on 05/09/17 05 :46; Admin Dose 40 MG; Start 04/17/17 at 06:00 Acetaminophen (Tylenol Tab) 500 mg Q6H PRN PO PAIN AND OR ELEVATED TEMP Last administered on 05/06/17 03:25; Admin Dose 500 MG; Start 04/17/17 at 03:00 Magnesium Hydroxide 30 ml 30 ml DAILY PRN PO CONSTIPATION Last administered on 04/28/17 18:33; Admin Dose 30 ML; Start 04/17/17 at 11:30 Ampicillin Sodium/ Sulbactam Sodium (Unasyn 1.5gm/NS (Pmx)) 50 ml @ 100 mls/hr Q6 IVPB Last administered on 05/09/17 18:09; Admin Dose 100 MLS/HR; Start at 18:00 Fentanyl (Duragesic 12 Mcg/Hr Patch) 1 patch Q72H TRANSDERM Last administered on 05/08/17 14:36; Admin Dose 1 PATCH; Start 04/22/17 at 05:30 Morphine Sulfate (morphine) 1 mg Q4H PRN IV SEVERE PAIN LEVEL 7-10 Last administered on 05/08/17 02:30; Admin Dose 1 MG; Start 04/22/17 at 17:30 Metoclopramide HCl (Reglan) 10 mg Q6H PRN IV NAUSEA Last administered on 20:18; Admin Dose 10 MG; Start 04/22/17 at 21:00 Enoxaparin Sodium (Lovenox) 30 mg DAILY SC Last administered on 05/09/17 08:38 ; Admin Dose 30 MG; Start 04/23/17 at 20:30 Acetaminophen (Tylenol Supp) 650 mg Q6H PRN [place] FEVER GREATER THAN 100.6; Start 04/23/17 at 20:30 Acetaminophen (Tylenol Tab) 650 mg Q6H PRN PO PAIN AND OR ELEVATED TEMP Last administered on 05/09/17 15:42; Admin Dose 650 MG; Start 04/23/17 at 20:30 Lactobacillus Acidophilus/ Rhamnosus (Culturelle) 1 cap BID PO Last administered on 05/09/17 08:37; Admin Dose 1 CAP; Start 04/24/17 at 11:30 Diagnostic Test (Pha) (Accu-Chek) 1 ea 02 XX ; Start 04/26/17 at 02:00 Docusate Sodium (Colace) 100 mg BID PO Last administered on 05/09/17 08:38; Admin Dose 100 MG; Start 04/30/17 at 21:00 Potassium Chloride (Klor-Con 20) 20 meq BID PO Last administered on 05/09/17 08:37; Admin Dose 20 MEQ; Start 05/04/17 at 21:00 Nalbuphine HCl (Nubain) 10 mg Q4H PRN IV PRURITUS; Start 05/07/17 at 13:30 Ondansetron HCl (Zofran Inj) 4 mg Q6H PRN IV NAUSEA AND/OR VOMITING; Start 05/07/17 at 13:30 Furosemide (Lasix) 20 mg DAILY IV Last administered on 05/09/17 08:39; Admin Dose 20 MG; Start 05/08/17 at 09:00 Metoprolol Tartrate (Lopressor) 25 mg BID PO Last administered on 05/09/17 08: 39; Admin Dose 25 MG; Start 05/08/17 at 14:00 JOLYNN WASHINGTON M.D. May 09, 2017 18:57
[2017-05-10] VITALS (12 sets, daily range): BP systolic 117–129; BP diastolic 68–80; PULSE 79–95; RESP 18–19
[2017-05-10] MEDS: AMPICILLIN/SULB 1.5GM/NS (PMX) 50 ML IVPB SCH ×4 (00:28→17:23)
[2017-05-10] MEDS: ACCU-CHEK XX SCH (02:00)
[2017-05-10 05:24] LABS: BASOPHILS % 0.2 % (0.0-2.0); EOSINOPHILS # 0.2 10^3/ul (0.0-0.5); EOSINOPHILS % 1.7 % (0.0-7.0); HEMATOCRIT 31.8 % (37.0-47.0); HEMOGLOBIN 10.4 g/dl (12.0-16.0); LYMPHOCYTES # 2.2 10^3/ul (0.8-2.9); LYMPHOCYTES % 21.8 % (15.0-51.0); MEAN CORPUSCULAR HEMOGLOBIN 30.1 pg (29.0-33.0); MEAN CORPUSCULAR HGB CONC 32.7 g/dl (32.0-37.0); MEAN CORPUSCULAR VOLUME 92.2 fl (82.0-101.0); MEAN PLATELET VOLUME 8.3 fl (7.4-10.4); MONOCYTE # 1.2 10^3/ul (0.3-0.9); MONOCYTES % 11.3 % (0.0-11.0); NEUTROPHIL # 6.6 10^3/ul (1.6-7.5); NEUTROPHILS % 64.4 % (39.0-77.0); PLATELET COUNT 454 10^3/UL (140-415); RED BLOOD COUNT 3.45 10^6/ul (4.20-5.40); RED CELL DISTRIBUTION WIDTH 14.3 % (11.5-14.5); WHITE BLOOD COUNT 10.2 10^3/ul (4.8-10.8)
[2017-05-10 05:47] LABS: CALCIUM 8.6 mg/dl (8.4-10.2); CREATININE 0.43 mg/dl (0.44-1.00); POTASSIUM 4.4 mmol/L (3.5-5.1)
[2017-05-10] MEDS: PANTOPRAZOLE (EC) 40 MG TAB PO SCH (06:17)
[2017-05-10] MEDS: Insulin NOVOLOG SS MILD Algorithm (SS with meals and bedtime) SC SCH ×4 (07:25→21:00)
[2017-05-10] MEDS: FENTAnyl PATCH 12 MCG/HR TRANSDERM SCH (07:54)
[2017-05-10] MEDS: DOCUSATE SODIUM 100 MG CAP PO SCH ×2 (08:26→21:24)
[2017-05-10] MEDS: LACTOBACILLUS RHAMNOSUS CAP PO SCH ×2 (08:26→21:24)
[2017-05-10] MEDS: ACETAMINOPHEN 325 MG TAB PO PRN ×2 (08:26→13:05)
[2017-05-10] MEDS: POTASSIUM CHLORIDE (SR) 20 MEQ TAB PO SCH ×2 (08:26→21:24)
[2017-05-10] MEDS: FUROSEMIDE 20 MG INJ IV SCH (08:28)
[2017-05-10] MEDS: METOPROLOL 25 MG TAB PO SCH ×2 (08:29→21:24)
[2017-05-10] MEDS: ENOXAPARIN 30 MG/0.3 ML SYG SC SCH (08:34)
--- NOTE | 2017-05-10 11:52 | CONS ---
Date/Time of Note Date/Time of Note DATE: 05/10/17 TIME: 11:48 Assessment/Plan Assessment/Plan Chief Complaint/Hosp Course Problems: Additional Assessment/Plan 1. Bilateral pleural effusions right more than left, status post right thoracentesis 04/20. S/p right chest tube insertion on 04/[address] Jackson, vascular surgery. S/p right thoracentesis 04/26. - s/p Right VATS decortication 05/07/2017 2. Acute hyponatremia 2/2 Hypovolemic hyponatremia - Resolved 2. sepsis due to liver abscess 3. Hepatic abscess oN CT scan s/p CT guided drainage on 04/15/17 and 04/23/17 4. Acute transaminitis 5. h/o Colon CA s/p previous Surgery 6. Hypokalemia 7. acute resp failiue due to # 1 8. hypomagnesemia Plan : S/p Right VATS decortication, Stable, Cr and Electrolytes stable today, on IV lasix for CHF and pleural effusion - stable on tele floor CXR much improved after surgery, small pleural effusion , HCO3 34- d/c IV lasix , start lasix 20mg PO BID Electrlolytes stable today IV abx as per ID, renally dose all abx pulmonary ID and G surgery has been following on patient. will follow up Consultation Date/Type/Reason Admit Date/Time Apr 13, 2017 at 19:51 Initial Consult Date 04/13/17 Type of Consultation: NEPHROLOGY Referring Provider: DARREL BURT MD 24 HR Interval Summary Free Text/Dictation doing ok, stable on telemetry floor Exam/Review of Systems Vital Signs Vitals Vital Signs Date Time Temp Pulse Resp B/P Pulse Ox O2 Delivery O2 Flow Rate FiO2 05/10/17 11:26 97.8 80 18 117/68 100 05/10/17 06:05 2.0 05/10/17 00:00 Nasal Cannula 05/08/17 04:21 27 Intake and Output 05/09/17 05/09/17 05/10/17 15:00 23:00 07:00 Intake Total 50 ml 600 ml 870 ml Output Total 0 ml 1645 ml 1700 ml Balance 50 ml -1045 ml -830 ml Exam Constitutional: alert, frail, oriented Respiratory: diminished breath sounds, other (right chest tube) Cardiovascular: nl pulses, regular rate and rhythm Musculoskeletal: nl extremities to inspection Extremities: No edema 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: FIELD HANDYMAN II-XII intact, 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 Results Result Diagram: 05/10/17 0449 05/10/179 Results 24 hrs Laboratory Tests Test 05/09/17 12:49 05/09/17 17:33 05/09/17 20:46 05/10/17 04:49 Bedside Glucose 94 98 138 White Blood Count 10.2 # Red Blood Count 3.45 L Hemoglobin 10.4 L Hematocrit 31.8 L Mean Corpuscular Volume 92.2 Mean Corpuscular Hemoglobin 30.1 Mean Corpuscular Hemoglobin Concent 32.7 Red Cell Distribution Width 14.3 Platelet Count 454 H Mean Platelet Volume 8.3 Neutrophils % 64.4 Lymphocytes % 21.8 Monocytes % 11.3 H Eosinophils % 1.7 Basophils % 0.2 Nucleated Red Blood Cells % 0.0 Neutrophils # 6.6 Lymphocytes # 2.2 Monocytes # 1.2 H Eosinophils # 0.2 Basophils # 0.0 Nucleated Red Blood Cells # 0.0 Sodium Level 136 Potassium Level 4.4 Chloride Level 98 Carbon Dioxide Level 34 H Anion Gap 8 Blood Urea Nitrogen 10 Creatinine 0.43 L Glucose Level 116 Calcium Level 8.6 Magnesium Level 2.0 Carcinoembryonic Antigen 1.7 Test 05/10/17 07:49 05/10/17 11:43 Bedside Glucose 107 120 Medications Medications Current Medications Miscellaneous Information 1 ea NOTE XX ; Start 04/13/17 at 21:30 Glucose (Glutose) 15 gm Q15M PRN PO DECREASED GLUCOSE; Start 04/13/17 at 21:30 Glucose (Glutose) 22.5 gm Q15M PRN PO DECREASED GLUCOSE; Start 04/13/17 at 21: 30 Dextrose (D50w Syringe) 25 ml Q15M PRN IV DECREASED GLUCOSE; Start 04/13/17 at 21:30 Dextrose (D50w Syringe) 50 ml Q15M PRN IV DECREASED GLUCOSE; Start 04/13/17 at 21:30 Glucagon (Glucagen) 1 mg Q15M PRN IM DECREASED GLUCOSE; Start 04/13/17 at 21:30 Glucose (Glutose) 15 gm Q15M PRN BUCCAL DECREASED GLUCOSE; Start 04/13/17 at 21 :30 Ondansetron HCl (Zofran Inj) 4 mg Q6 PRN IV NAUSEA AND/OR VOMITING Last administered on 04/26/17 20:25; Admin Dose 4 MG; Start 04/13/17 at 21:30 Guaifenesin/ Dextromethorphan (Robitussin Dm Liquid Cup) 5 ml Q4H PRN PO COUGH Last administered on 04/19/17 05:09; Admin Dose 5 ML; Start 04/15/17 at 16:30 Pantoprazole (Protonix Tab) 40 mg DAILY@06 PO Last administered on 05/10/17 06 :17; Admin Dose 40 MG; Start 04/17/17 at 06:00 Acetaminophen (Tylenol Tab) 500 mg Q6H PRN PO PAIN AND OR ELEVATED TEMP Last administered on 05/06/17 03:25; Admin Dose 500 MG; Start 04/17/17 at 03:00 Magnesium Hydroxide 30 ml 30 ml DAILY PRN PO CONSTIPATION Last administered on 04/28/17 18:33; Admin Dose 30 ML; Start 04/17/17 at 11:30 Ampicillin Sodium/ Sulbactam Sodium (Unasyn 1.5gm/NS (Pmx)) 50 ml @ 100 mls/hr Q6 IVPB Last administered on 05/10/17 11:45; Admin Dose 100 MLS/HR; Start at 18:00 Fentanyl (Duragesic 12 Mcg/Hr Patch) 1 patch Q72H TRANSDERM Last administered on 05/10/17 07:54; Admin Dose 1 PATCH; Start 04/22/17 at 05:30 Morphine Sulfate (morphine) 1 mg Q4H PRN IV SEVERE PAIN LEVEL 7-10 Last administered on 05/08/17 02:30; Admin Dose 1 MG; Start 04/22/17 at 17:30 Metoclopramide HCl (Reglan) 10 mg Q6H PRN IV NAUSEA Last administered on 20:18; Admin Dose 10 MG; Start 04/22/17 at 21:00 Enoxaparin Sodium (Lovenox) 30 mg DAILY SC Last administered on 05/10/17 08:34 ; Admin Dose 30 MG; Start 04/23/17 at 20:30 Acetaminophen (Tylenol Supp) 650 mg Q6H PRN WI FEVER GREATER THAN 100.6; Start 9/21/17 at 20:30 Acetaminophen (Tylenol Tab) 650 mg Q6H PRN PO PAIN AND OR ELEVATED TEMP Last administered on 05/10/17 08:26; Admin Dose 650 MG; Start 04/23/17 at 20:30 Lactobacillus Acidophilus/ Rhamnosus (Culturelle) 1 cap BID PO Last administered on 05/10/17 08:26; Admin Dose 1 CAP; Start 04/24/17 at 11:30 Diagnostic Test (Pha) (Accu-Chek) 1 ea 02 XX ; Start 04/26/17 at 02:00 Docusate Sodium (Colace) 100 mg BID PO Last administered on 05/10/17 08:26; Admin Dose 100 MG; Start 04/30/17 at 21:00 Potassium Chloride (Klor-Con 20) 20 meq BID PO Last administered on 05/10/17 08:26; Admin Dose 20 MEQ; Start 05/04/17 at 21:00 Nalbuphine HCl (Nubain) 10 mg Q4H PRN IV PRURITUS; Start 05/07/17 at 13:30 Ondansetron HCl (Zofran Inj) 4 mg Q6H PRN IV NAUSEA AND/OR VOMITING; Start 05/07/17 at 13:30 Furosemide (Lasix) 20 mg DAILY IV Last administered on 05/10/17 08:28; Admin Dose 20 MG; Start 05/08/17 at 09:00 Metoprolol Tartrate (Lopressor) 25 mg BID PO Last administered on 05/10/17 08: 29; Admin Dose 25 MG; Start 05/08/17 at 14:00 NGOC GARZA MD May 10, 2017 11:52
--- NOTE | 2017-05-10 12:15 | CONS ---
Date/Time of Note Date/Time of Note DATE: 05/10/17 TIME: 12:14 Assessment/Plan Assessment/Plan Chief Complaint/Hosp Course - severe sepsis due to pyogenic liver abscess, loculated pleural effusion s/p R thoracotomy, thoracoscopy, total pulmonary decortication on 05/07/2017. Path showed fibrin, necrotic tissue and abscess, no evidence of malignancy. - multiloculated pyogenic liver abscess s/p CT guided drainage catheter placement 04/15/2017, 04/23/2017, s/p repeat drainage 04/27/2017; cultures from gamma hemolytic strep, cultures from 04/23/2017 alpha hemolytic strep - loculated pleural effusion likely secondary to hepatic process/Hepatic hydrothorax, R>L, s/p R thoracentesis on 04/20/2017, s/p chest tube placement on 04/22/2017 - intermittent diarrhea - normocytic anemia requiring blood transfusion - coagulopathy, improved - Transaminitis, improved - Hyponatremia - CoNS in urine culture with trivial pyuria, likely contaminant - Hx of rectal CA s/p Low anterior resection 08/29/2016 - Severe protein calorie malnutrition - allergy to vancomycin recommendations: - pending results: bacterial, fungal and AFB cultures from VATS - continue amp/sulbactam (04/18/2017-); s/p linezolid and pip/tazo (04/13-2016). - we recommend long-term (6 weeks at least) antibiotic administration; we recommend repeat imaging prior to antibiotic cessation to ensure resolution management d/w Pt Problems: Consultation Date/Type/Reason Admit Date/Time Apr 13, 2017 at 19:51 Initial Consult Date 04/21/17 Type of Consultation: ID Referring Provider: DARREL BURT MD 24 HR Interval Summary Constitutional: improved Detailed Summary Eyes: no complaints ENT: no complaints Respiratory: pain (mid-sternum, less than before), pleuritic pain, No cough, No shortness of breath, No sputum Cardiovascular: no complaints Gastrointestinal: no complaints Genitourinary: no complaints Musculoskeletal: no complaints Skin: no complaints Neurologic: no complaints Exam/Review of Systems Vital Signs Vitals Vital Signs Date Time Temp Pulse Resp B/P Pulse Ox O2 Delivery O2 Flow Rate FiO2 05/10/17 11:26 97.8 80 18 117/68 100 05/10/17 06:05 2.0 05/10/17 00:00 Nasal Cannula 05/08/17 04:21 27 Intake and Output 05/09/17 05/09/17 05/10/17 15:00 23:00 07:00 Intake Total 50 ml 600 ml 870 ml Output Total 0 ml 1645 ml 1700 ml Balance 50 ml -1045 ml -830 ml Exam Constitutional: alert, frail, oriented Psych: nl mood/affect, no complaints Head: atraumatic, normocephalic Eyes: nl conjunctiva, nl lids ENMT: nl external ears & nose, nl nasal mucosa & septum Neck: supple Respiratory: diminished breath sounds, other (Y chest tube on R chest) Cardiovascular: nl pulses, regular rate and rhythm Gastrointestinal: non-tender, other (+external drainage cath), soft Musculoskeletal: nl extremities to inspection Extremities: No edema 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: TIRE CLASSIFIER II-XII intact, 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, nl speech Skin: nl turgor Results Result Diagram: 05/10/17 0449 05/10/17448 Results 24 hrs Laboratory Tests Test 05/09/17 12:49 05/09/17 17:33 05/09/17 20:46 05/10/17 04:49 Bedside Glucose 94 98 138 White Blood Count 10.2 # Red Blood Count 3.45 L Hemoglobin 10.4 L Hematocrit 31.8 L Mean Corpuscular Volume 92.2 Mean Corpuscular Hemoglobin 30.1 Mean Corpuscular Hemoglobin Concent 32.7 Red Cell Distribution Width 14.3 Platelet Count 454 H Mean Platelet Volume 8.3 Neutrophils % 64.4 Lymphocytes % 21.8 Monocytes % 11.3 H Eosinophils % 1.7 Basophils % 0.2 Nucleated Red Blood Cells % 0.0 Neutrophils # 6.6 Lymphocytes # 2.2 Monocytes # 1.2 H Eosinophils # 0.2 Basophils # 0.0 Nucleated Red Blood Cells # 0.0 Sodium Level 136 Potassium Level 4.4 Chloride Level 98 Carbon Dioxide Level 34 H Anion Gap 8 Blood Urea Nitrogen 10 Creatinine 0.43 L Glucose Level 116 Calcium Level 8.6 Magnesium Level 2.0 Carcinoembryonic Antigen 1.7 Test 05/10/17 07:49 05/10/17 11:43 Bedside Glucose 107 120 Medications Medications Current Medications Miscellaneous Information 1 ea NOTE XX ; Start 04/13/17 at 21:30 Glucose (Glutose) 15 gm Q15M PRN PO DECREASED GLUCOSE; Start 04/13/17 at 21:30 Glucose (Glutose) 22.5 gm Q15M PRN PO DECREASED GLUCOSE; Start 04/13/17 at 21: 30 Dextrose (D50w Syringe) 25 ml Q15M PRN IV DECREASED GLUCOSE; Start 04/13/17 at 21:30 Dextrose (D50w Syringe) 50 ml Q15M PRN IV DECREASED GLUCOSE; Start 04/13/17 at 21:30 Glucagon (Glucagen) 1 mg Q15M PRN IM DECREASED GLUCOSE; Start 04/13/17 at 21:30 Glucose (Glutose) 15 gm Q15M PRN BUCCAL DECREASED GLUCOSE; Start 04/13/17 at 21 :30 Ondansetron HCl (Zofran Inj) 4 mg Q6 PRN IV NAUSEA AND/OR VOMITING Last administered on 04/26/17 20:25; Admin Dose 4 MG; Start 04/13/17 at 21:30 Guaifenesin/ Dextromethorphan (Robitussin Dm Liquid Cup) 5 ml Q4H PRN PO COUGH Last administered on 04/19/17 05:09; Admin Dose 5 ML; Start 04/15/17 at 16:30 Pantoprazole (Protonix Tab) 40 mg DAILY@06 PO Last administered on 05/10/17 06 :17; Admin Dose 40 MG; Start 04/17/17 at 06:00 Acetaminophen (Tylenol Tab) 500 mg Q6H PRN PO PAIN AND OR ELEVATED TEMP Last administered on 05/06/17 03:25; Admin Dose 500 MG; Start 04/17/17 at 03:00 Magnesium Hydroxide 30 ml 30 ml DAILY PRN PO CONSTIPATION Last administered on 04/28/17 18:33; Admin Dose 30 ML; Start 04/17/17 at 11:30 Ampicillin Sodium/ Sulbactam Sodium (Unasyn 1.5gm/NS (Pmx)) 50 ml @ 100 mls/hr Q6 IVPB Last administered on 05/10/17 11:45; Admin Dose 100 MLS/HR; Start at 18:00 Fentanyl (Duragesic 12 Mcg/Hr Patch) 1 patch Q72H TRANSDERM Last administered on 05/10/17 07:54; Admin Dose 1 PATCH; Start 04/22/17 at 05:30 Morphine Sulfate (morphine) 1 mg Q4H PRN IV SEVERE PAIN LEVEL 7-10 Last administered on 05/08/17 02:30; Admin Dose 1 MG; Start 04/22/17 at 17:30 Metoclopramide HCl (Reglan) 10 mg Q6H PRN IV NAUSEA Last administered on 20:18; Admin Dose 10 MG; Start 04/22/17 at 21:00 Enoxaparin Sodium (Lovenox) 30 mg DAILY SC Last administered on 05/10/17 08:34 ; Admin Dose 30 MG; Start 04/23/17 at 20:30 Acetaminophen (Tylenol Supp) 650 mg Q6H PRN [place] FEVER GREATER THAN 100.6; Start 04/23/17 at 20:30 Acetaminophen (Tylenol Tab) 650 mg Q6H PRN PO PAIN AND OR ELEVATED TEMP Last administered on 05/10/17 08:26; Admin Dose 650 MG; Start 04/23/17 at 20:30 Lactobacillus Acidophilus/ Rhamnosus (Culturelle) 1 cap BID PO Last administered on 05/10/17 08:26; Admin Dose 1 CAP; Start 04/24/17 at 11:30 Diagnostic Test (Pha) (Accu-Chek) 1 ea 02 XX ; Start 04/26/17 at 02:00 Docusate Sodium (Colace) 100 mg BID PO Last administered on 05/10/17 08:26; Admin Dose 100 MG; Start 04/30/17 at 21:00 Potassium Chloride (Klor-Con 20) 20 meq BID PO Last administered on 05/10/17 08:26; Admin Dose 20 MEQ; Start 05/04/17 at 21:00 Nalbuphine HCl (Nubain) 10 mg Q4H PRN IV PRURITUS; Start 05/07/17 at 13:30 Ondansetron HCl (Zofran Inj) 4 mg Q6H PRN IV NAUSEA AND/OR VOMITING; Start 05/07/17 at 13:30 Metoprolol Tartrate (Lopressor) 25 mg BID PO Last administered on 05/10/17 08: 29; Admin Dose 25 MG; Start 05/08/17 at 14:00 AARON ANSARI M.D. May 10, 2017 12:15
--- NOTE | 2017-05-10 15:48 | PN ---
Date/Time of Note Date/Time of Note DATE: 05/10/17 TIME: 15:45 Assessment/Plan Lines/Catheters IV Catheter Type (from Nrs): Saline Lock Urinary Cath still in place: Yes Subjective 24 Hr Interval Summary Respiratory: other (pain at right chest tube site) Cardiovascular: no complaints Gastrointestinal: no complaints Musculoskeletal: no complaints Exam/Review of Systems Vital Signs Vitals Vital Signs Date Time Temp Pulse Resp B/P Pulse Ox O2 Delivery O2 Flow Rate FiO2 05/10/17 15:22 97.9 86 18 121/75 98 05/10/17 06:05 2.0 05/10/17 00:00 Nasal Cannula 05/08/17 04:21 27 Intake and Output 05/09/17 05/09/17 05/10/17 15:00 23:00 07:00 Intake Total 50 ml 600 ml 870 ml Output Total 0 ml 1645 ml 1700 ml Balance 50 ml -1045 ml -830 ml Exam Constitutional: alert Psych: nl mood/affect Neck: supple Respiratory: clear to auscultation, normal air movement Cardiovascular: nl pulses, regular rate and rhythm Gastrointestinal: other (sp Liver abcsess drainage- 1 accordian noted), soft Results Result Diagram: 05/10/17 0449 05/10/17 0449 Results 24 hrs Laboratory Tests Test 05/09/17 17:33 05/09/17 20:46 05/10/17 04:49 05/10/17 07:49 Bedside Glucose 98 138 107 White Blood Count 10.2 # Red Blood Count 3.45 L Hemoglobin 10.4 L Hematocrit 31.8 L Mean Corpuscular Volume 92.2 Mean Corpuscular Hemoglobin 30.1 Mean Corpuscular Hemoglobin Concent 32.7 Red Cell Distribution Width 14.3 Platelet Count 454 H Mean Platelet Volume 8.3 Neutrophils % 64.4 Lymphocytes % 21.8 Monocytes % 11.3 H Eosinophils % 1.7 Basophils % 0.2 Nucleated Red Blood Cells % 0.0 Neutrophils # 6.6 Lymphocytes # 2.2 Monocytes # 1.2 H Eosinophils # 0.2 Basophils # 0.0 Nucleated Red Blood Cells # 0.0 Sodium Level 136 Potassium Level 4.4 Chloride Level 98 Carbon Dioxide Level 34 H Anion Gap 8 Blood Urea Nitrogen 10 Creatinine 0.43 L Glucose Level 116 Calcium Level 8.6 Magnesium Level 2.0 Carcinoembryonic Antigen 1.7 Test 10/8/17 11:43 Bedside Glucose 120 Medications Medications Current Medications Miscellaneous Information 1 ea NOTE XX ; Start 04/13/17 at 21:30 Glucose (Glutose) 15 gm Q15M PRN PO DECREASED GLUCOSE; Start 04/13/17 at 21:30 Glucose (Glutose) 22.5 gm Q15M PRN PO DECREASED GLUCOSE; Start 04/13/17 at 21: 30 Dextrose (D50w Syringe) 25 ml Q15M PRN IV DECREASED GLUCOSE; Start 04/13/17 at 21:30 Dextrose (D50w Syringe) 50 ml Q15M PRN IV DECREASED GLUCOSE; Start 04/13/17 at 21:30 Glucagon (Glucagen) 1 mg Q15M PRN IM DECREASED GLUCOSE; Start 04/13/17 at 21:30 Glucose (Glutose) 15 gm Q15M PRN BUCCAL DECREASED GLUCOSE; Start 04/13/17 at 21 :30 Ondansetron HCl (Zofran Inj) 4 mg Q6 PRN IV NAUSEA AND/OR VOMITING Last administered on 04/26/17 20:25; Admin Dose 4 MG; Start 04/13/17 at 21:30 Guaifenesin/ Dextromethorphan (Robitussin Dm Liquid Cup) 5 ml Q4H PRN PO COUGH Last administered on 04/19/17 05:09; Admin Dose 5 ML; Start 04/15/17 at 16:30 Pantoprazole (Protonix Tab) 40 mg DAILY@06 PO Last administered on 05/10/17 06 :17; Admin Dose 40 MG; Start 04/17/17 at 06:00 Acetaminophen (Tylenol Tab) 500 mg Q6H PRN PO PAIN AND OR ELEVATED TEMP Last administered on 05/06/17 03:25; Admin Dose 500 MG; Start 04/17/17 at 03:00 Magnesium Hydroxide 30 ml 30 ml DAILY PRN PO CONSTIPATION Last administered on 04/28/17 18:33; Admin Dose 30 ML; Start 04/17/17 at 11:30 Ampicillin Sodium/ Sulbactam Sodium (Unasyn 1.5gm/NS (Pmx)) 50 ml @ 100 mls/hr Q6 IVPB Last administered on 05/10/17 11:45; Admin Dose 100 MLS/HR; Start at 18:00 Fentanyl (Duragesic 12 Mcg/Hr Patch) 1 patch Q72H TRANSDERM Last administered on 05/10/17 07:54; Admin Dose 1 PATCH; Start 04/22/17 at 05:30 Morphine Sulfate (morphine) 1 mg Q4H PRN IV SEVERE PAIN LEVEL 7-10 Last administered on 05/08/17 02:30; Admin Dose 1 MG; Start 04/22/17 at 17:30 Metoclopramide HCl (Reglan) 10 mg Q6H PRN IV NAUSEA Last administered on 20:18; Admin Dose 10 MG; Start 04/22/17 at 21:00 Enoxaparin Sodium (Lovenox) 30 mg DAILY SC Last administered on 05/10/17 08:34 ; Admin Dose 30 MG; Start 04/23/17 at 20:30 Acetaminophen (Tylenol Supp) 650 mg Q6H PRN IN FEVER GREATER THAN 100.6; Start 04/23/17 at 20:30 Acetaminophen (Tylenol Tab) 650 mg Q6H PRN PO PAIN AND OR ELEVATED TEMP Last administered on 05/10/17 13:05; Admin Dose 650 MG; Start 04/23/17 at 20:30 Lactobacillus Acidophilus/ Rhamnosus (Culturelle) 1 cap BID PO Last administered on 05/10/17 08:26; Admin Dose 1 CAP; Start 04/24/17 at 11:30 Diagnostic Test (Pha) (Accu-Chek) 1 ea 02 XX ; Start 04/26/17 at 02:00 Docusate Sodium (Colace) 100 mg BID PO Last administered on 05/10/17 08:26; Admin Dose 100 MG; Start 04/30/17 at 21:00 Potassium Chloride (Klor-Con 20) 20 meq BID PO Last administered on 05/10/17 08:26; Admin Dose 20 MEQ; Start 05/04/17 at 21:00 Nalbuphine HCl (Nubain) 10 mg Q4H PRN IV PRURITUS; Start 05/07/17 at 13:30 Ondansetron HCl (Zofran Inj) 4 mg Q6H PRN IV NAUSEA AND/OR VOMITING; Start 05/07/17 at 13:30 Metoprolol Tartrate (Lopressor) 25 mg BID PO Last administered on 05/10/17 08: 29; Admin Dose 25 MG; Start 05/08/17 at 14:00 MESHA VELASQUEZ May 10, 2017 15:48
--- NOTE | 2017-05-10 15:49 | PN ---
Date/Time of Note Date/Time of Note DATE: 05/10/17 TIME: 15:48 Assessment/Plan Lines/Catheters IV Catheter Type (from Nrsg): Saline Lock Khan in Place (from Nrsg): Yes Assessment/Plan Chief Complaint/Hosp Course P Right VATS decortication CXR Much improved CT [address] SXN Continue antibiotics per ID Problems: Subjective 24 Hr Interval Summary Constitutional: improved Pain Control: mild Exam/Review of Systems Vital Signs Vitals Vital Signs Date Time Temp Pulse Resp B/P Pulse Ox O2 Delivery O2 Flow Rate FiO2 05/10/17 15:22 97.9 86 18 121/75 98 05/10/17 06:05 2.0 05/10/17 00:00 Nasal Cannula 05/08/17 04:21 27 Intake and Output 05/09/17 05/09/17 05/10/17 15:00 23:00 07:00 Intake Total 50 ml 600 ml 870 ml Output Total 0 ml 1645 ml 1700 ml Balance 50 ml -1045 ml -830 ml Exam ENMT: mucosa pink and moist, nl external ears & nose, nl lips & teeth, nl nasal mucosa & septum Neck: non-tender, supple Respiratory: clear to auscultation, normal air movement Cardiovascular: nl pulses, regular rate and rhythm Results Result Diagram: 05/10/179 05/10/17448 ADRIAN NO MD May 10, 2017 15:49
--- NOTE | 2017-05-10 16:43 | CONS ---
Date/Time of Note Date/Time of Note DATE: 05/10/17 TIME: 16:42 Assessment/Plan Assessment/Plan Additional Assessment/Plan Abnormal electrocardiogram Liver abscess s/p CT guided drainage Lung ca s/p resection Hyponatremia Pleural Effusion s/p VATS/decortication Continue antibiotics Continue Metoprolol Continue GI and DVT Prophylaxis Consultation Date/Type/Reason Admit Date/Time Apr 13, 2017 at 19:51 Initial Consult Date 04/21/17 Type of Consultation: ID Referring Provider: DARREL BURT MD Exam/Review of Systems Vital Signs Vitals Vital Signs Date Time Temp Pulse Resp B/P Pulse Ox O2 Delivery O2 Flow Rate FiO2 05/10/17 16:22 84 05/10/17 15:22 97.9 18 121/75 98 05/10/17 06:05 2.0 05/10/17 00:00 Nasal Cannula 05/08/17 04:21 27 Intake and Output 05/09/17 05/09/17 05/10/17 15:00 23:00 07:00 Intake Total 50 ml 600 ml 870 ml Output Total 0 ml 1645 ml 1700 ml Balance 50 ml -1045 ml -830 ml Exam Constitutional: alert, oriented Head: atraumatic, normocephalic Respiratory: diminished breath sounds, other (Right sided chest tube in place) Cardiovascular: regular rate and rhythm Gastrointestinal: nl liver, spleen, non-tender, soft Extremities: normal pulses Results Result Diagram: 05/10/17 0449 05/10/17 0449 Results 24 hrs Laboratory Tests Test 05/09/17 17:33 05/09/17 20:46 05/10/17 04:49 05/10/17 07:49 Bedside Glucose 98 138 107 White Blood Count 10.2 # Red Blood Count 3.45 L Hemoglobin 10.4 L Hematocrit 31.8 L Mean Corpuscular Volume 92.2 Mean Corpuscular Hemoglobin 30.1 Mean Corpuscular Hemoglobin Concent 32.7 Red Cell Distribution Width 14.3 Platelet Count 454 H Mean Platelet Volume 8.3 Neutrophils % 64.4 Lymphocytes % 21.8 Monocytes % 11.3 H Eosinophils % 1.7 Basophils % 0.2 Nucleated Red Blood Cells % 0.0 Neutrophils # 6.6 Lymphocytes # 2.2 Monocytes # 1.2 H Eosinophils # 0.2 Basophils # 0.0 Nucleated Red Blood Cells # 0.0 Sodium Level 136 Potassium Level 4.4 Chloride Level 98 Carbon Dioxide Level 34 H Anion Gap 8 Blood Urea Nitrogen 10 Creatinine 0.43 L Glucose Level 116 Calcium Level 8.6 Magnesium Level 2.0 Carcinoembryonic Antigen 1.7 Test 05/10/17 11:43 Bedside Glucose 120 Medications Medications Current Medications Miscellaneous Information 1 ea NOTE XX ; Start 04/13/17 at 21:30 Glucose (Glutose) 15 gm Q15M PRN PO DECREASED GLUCOSE; Start 04/13/17 at 21:30 Glucose (Glutose) 22.5 gm Q15M PRN PO DECREASED GLUCOSE; Start 04/13/17 at 21: 30 Dextrose (D50w Syringe) 25 ml Q15M PRN IV DECREASED GLUCOSE; Start 04/13/17 at 21:30 Dextrose (D50w Syringe) 50 ml Q15M PRN IV DECREASED GLUCOSE; Start 04/13/17 at 21:30 Glucagon (Glucagen) 1 mg Q15M PRN IM DECREASED GLUCOSE; Start 04/13/17 at 21:30 Glucose (Glutose) 15 gm Q15M PRN BUCCAL DECREASED GLUCOSE; Start 04/13/17 at 21 :30 Ondansetron HCl (Zofran Inj) 4 mg Q6 PRN IV NAUSEA AND/OR VOMITING Last administered on 04/26/17 20:25; Admin Dose 4 MG; Start 04/13/17 at 21:30 Guaifenesin/ Dextromethorphan (Robitussin Dm Liquid Cup) 5 ml Q4H PRN PO COUGH Last administered on 04/19/17 05:09; Admin Dose 5 ML; Start 04/15/17 at 16:30 Pantoprazole (Protonix Tab) 40 mg DAILY@06 PO Last administered on 05/10/17 06 :17; Admin Dose 40 MG; Start 04/17/17 at 06:00 Acetaminophen (Tylenol Tab) 500 mg Q6H PRN PO PAIN AND OR ELEVATED TEMP Last administered on 05/06/17 03:25; Admin Dose 500 MG; Start 04/17/17 at 03:00 Magnesium Hydroxide 30 ml 30 ml DAILY PRN PO CONSTIPATION Last administered on 04/28/17 18:33; Admin Dose 30 ML; Start 04/17/17 at 11:30 Ampicillin Sodium/ Sulbactam Sodium (Unasyn 1.5gm/NS (Pmx)) 50 ml @ 100 mls/hr Q6 IVPB Last administered on 05/10/17 11:45; Admin Dose 100 MLS/HR; Start at 18:00 Fentanyl (Duragesic 12 Mcg/Hr Patch) 1 patch Q72H TRANSDERM Last administered on 05/10/17 07:54; Admin Dose 1 PATCH; Start 04/22/17 at 05:30 Morphine Sulfate (morphine) 1 mg Q4H PRN IV SEVERE PAIN LEVEL 7-10 Last administered on 05/08/17 02:30; Admin Dose 1 MG; Start 04/22/17 at 17:30 Metoclopramide HCl (Reglan) 10 mg Q6H PRN IV NAUSEA Last administered on 20:18; Admin Dose 10 MG; Start 04/22/17 at 21:00 Enoxaparin Sodium (Lovenox) 30 mg DAILY SC Last administered on 05/10/17 08:34 ; Admin Dose 30 MG; Start 04/23/17 at 20:30 Acetaminophen (Tylenol Supp) 650 mg Q6H PRN AL FEVER GREATER THAN 100.6; Start 04/23/17 at 20:30 Acetaminophen (Tylenol Tab) 650 mg Q6H PRN PO PAIN AND OR ELEVATED TEMP Last administered on 05/10/17 13:05; Admin Dose 650 MG; Start 04/23/17 at 20:30 Lactobacillus Acidophilus/ Rhamnosus (Culturelle) 1 cap BID PO Last administered on 05/10/17 08:26; Admin Dose 1 CAP; Start 04/24/17 at 11:30 Diagnostic Test (Pha) (Accu-Chek) 1 ea 02 XX ; Start 04/26/17 at 02:00 Docusate Sodium (Colace) 100 mg BID PO Last administered on 05/10/17 08:26; Admin Dose 100 MG; Start 04/30/17 at 21:00 Potassium Chloride (Klor-Con 20) 20 meq BID PO Last administered on 05/10/17 08:26; Admin Dose 20 MEQ; Start 05/04/17 at 21:00 Nalbuphine HCl (Nubain) 10 mg Q4H PRN IV PRURITUS; Start 05/07/17 at 13:30 Ondansetron HCl (Zofran Inj) 4 mg Q6H PRN IV NAUSEA AND/OR VOMITING; Start 05/07/17 at 13:30 Metoprolol Tartrate (Lopressor) 25 mg BID PO Last administered on 05/10/17t 08: 29; Admin Dose 25 MG; Start 05/08/17 at 14:00 JOLYNN WASHINGTON M.D. May 10, 2017 16:43
--- NOTE | 2017-05-10 17:19 | CONS ---
Date/Time of Note Date/Time of Note DATE: 05/10/17 TIME: 17:18 Consult Date/Type/Reason Admit Date/Time Apr 13, 2017 at 19:51 Initial Consult Date 04/15/17 Type of Consultation: Pulm Ordering Provider: DARREL BURT MD Subjective no events overnight. Objective Vital Signs Date Time Temp Pulse Resp B/P Pulse Ox O2 Delivery O2 Flow Rate FiO2 05/10/17 16:22 84 05/10/17 15:22 97.9 18 121/75 98 05/10/17 06:05 2.0 05/10/17 00:00 Nasal Cannula 05/08/17 04:21 27 Intake and Output 05/09/17 05/09/17 05/10/17 15:00 23:00 07:00 Intake Total 50 ml 600 ml 870 ml Output Total 0 ml 1645 ml 1700 ml Balance 50 ml -1045 ml -830 ml Exam HEENT: Neck supple; no JVD; no LAD CVS: RRR, S1 and S2 CHEST: Decreased R BS ABD: Soft, NT, + BS EXT: No c/c/e Results/Medications Result Diagram: 05/10/179 05/10/17 0449 Results 24 hrs Laboratory Tests Test 05/09/17 17:33 05/09/17 20:46 05/10/17 04:49 05/10/17 07:49 Bedside Glucose 98 138 107 White Blood Count 10.2 # Red Blood Count 3.45 L Hemoglobin 10.4 L Hematocrit 31.8 L Mean Corpuscular Volume 92.2 Mean Corpuscular Hemoglobin 30.1 Mean Corpuscular Hemoglobin Concent 32.7 Red Cell Distribution Width 14.3 Platelet Count 454 H Mean Platelet Volume 8.3 Neutrophils % 64.4 Lymphocytes % 21.8 Monocytes % 11.3 H Eosinophils % 1.7 Basophils % 0.2 Nucleated Red Blood Cells % 0.0 Neutrophils # 6.6 Lymphocytes # 2.2 Monocytes # 1.2 H Eosinophils # 0.2 Basophils # 0.0 Nucleated Red Blood Cells # 0.0 Sodium Level 136 Potassium Level 4.4 Chloride Level 98 Carbon Dioxide Level 34 H Anion Gap 8 Blood Urea Nitrogen 10 Creatinine 0.43 L Glucose Level 116 Calcium Level 8.6 Magnesium Level 2.0 Carcinoembryonic Antigen 1.7 Test 05/10/17 11:43 Bedside Glucose 120 Medications Current Medications Miscellaneous Information 1 ea NOTE XX ; Start 04/13/17 at 21:30 Glucose (Glutose) 15 gm Q15M PRN PO DECREASED GLUCOSE; Start 04/13/17 at 21:30 Glucose (Glutose) 22.5 gm Q15M PRN PO DECREASED GLUCOSE; Start 04/13/17 at 21: 30 Dextrose (D50w Syringe) 25 ml Q15M PRN IV DECREASED GLUCOSE; Start 04/13/17 at 21:30 Dextrose (D50w Syringe) 50 ml Q15M PRN IV DECREASED GLUCOSE; Start 04/13/17 at 21:30 Glucagon (Glucagen) 1 mg Q15M PRN IM DECREASED GLUCOSE; Start 04/13/17 at 21:30 Glucose (Glutose) 15 gm Q15M PRN BUCCAL DECREASED GLUCOSE; Start 04/13/17 at 21 :30 Ondansetron HCl (Zofran Inj) 4 mg Q6 PRN IV NAUSEA AND/OR VOMITING Last administered on 04/26/17 20:25; Admin Dose 4 MG; Start 04/13/17 at 21:30 Guaifenesin/ Dextromethorphan (Robitussin Dm Liquid Cup) 5 ml Q4H PRN PO COUGH Last administered on 04/19/17 05:09; Admin Dose 5 ML; Start 04/15/17 at 16:30 Pantoprazole (Protonix Tab) 40 mg DAILY@06 PO Last administered on 05/10/17 06 :17; Admin Dose 40 MG; Start 04/17/17 at 06:00 Acetaminophen (Tylenol Tab) 500 mg Q6H PRN PO PAIN AND OR ELEVATED TEMP Last administered on 05/06/17 03:25; Admin Dose 500 MG; Start 04/17/17 at 03:00 Magnesium Hydroxide 30 ml 30 ml DAILY PRN PO CONSTIPATION Last administered on 04/28/17 18:33; Admin Dose 30 ML; Start 04/17/17 at 11:30 Ampicillin Sodium/ Sulbactam Sodium (Unasyn 1.5gm/NS (Pmx)) 50 ml @ 100 mls/hr Q6 IVPB Last administered on 05/10/17 11:45; Admin Dose 100 MLS/HR; Start at 18:00 Fentanyl (Duragesic 12 Mcg/Hr Patch) 1 patch Q72H TRANSDERM Last administered on 05/10/17 07:54; Admin Dose 1 PATCH; Start 04/22/17 at 05:30 Morphine Sulfate (morphine) 1 mg Q4H PRN IV SEVERE PAIN LEVEL 7-10 Last administered on 05/08/17 02:30; Admin Dose 1 MG; Start 04/22/17 at 17:30 Metoclopramide HCl (Reglan) 10 mg Q6H PRN IV NAUSEA Last administered on 20:18; Admin Dose 10 MG; Start 04/22/17 at 21:00 Enoxaparin Sodium (Lovenox) 30 mg DAILY SC Last administered on 05/10/17 08:34 ; Admin Dose 30 MG; Start 04/23/17 at 20:30 Acetaminophen (Tylenol Supp) 650 mg Q6H PRN OR FEVER GREATER THAN 100.6; Start 04/23/17 at 20:30 Acetaminophen (Tylenol Tab) 650 mg Q6H PRN PO PAIN AND OR ELEVATED TEMP Last administered on 05/10/17 13:05; Admin Dose 650 MG; Start 04/23/17 at 20:30 Lactobacillus Acidophilus/ Rhamnosus (Culturelle) 1 cap BID PO Last administered on 05/10/17 08:26; Admin Dose 1 CAP; Start 04/24/17 at 11:30 Diagnostic Test (Pha) (Accu-Chek) 1 ea 02 XX ; Start 04/26/17 at 02:00 Docusate Sodium (Colace) 100 mg BID PO Last administered on 05/10/17 08:26; Admin Dose 100 MG; Start 04/30/17 at 21:00 Potassium Chloride (Klor-Con 20) 20 meq BID PO Last administered on 05/10/17 08:26; Admin Dose 20 MEQ; Start 05/04/17 at 21:00 Nalbuphine HCl (Nubain) 10 mg Q4H PRN IV PRURITUS; Start 05/07/17 at 13:30 Ondansetron HCl (Zofran Inj) 4 mg Q6H PRN IV NAUSEA AND/OR VOMITING; Start 05/07/17 at 13:30 Metoprolol Tartrate (Lopressor) 25 mg BID PO Last administered on 05/10/17 08: 29; Admin Dose 25 MG; Start 05/08/17 at 14:00 Assessment/Plan Chief Complaint/Hosp Course 66-year-old female with a history of colon/rectal ca presenting with sepsis due to liver abscesses, whose course has been complicated by mild hypoxemic resp insufficiency with enlarging R.> L effusions. Problems: Additional Assessment/Plan IMP: 1. Loculated pleural effusion likely secondary to hepatic abscesses--s/p VATS decortication RECS: 1. CT management as per CT surg--> CT to 20 cm H20 suction 2. ICS 3. OOB 4. Abx per ID LARUEN COELHO MD May 10, 2017 17:19
[2017-05-10] MEDS: FUROSEMIDE 20 MG TAB PO SCH (17:23)
[2017-05-11] VITALS (12 sets, daily range): BP systolic 112–136; BP diastolic 59–77; PULSE 78–100; RESP 16–19
[2017-05-11] MEDS: AMPICILLIN/SULB 1.5GM/NS (PMX) 50 ML IVPB SCH ×4 (00:31→17:00)
[2017-05-11] MEDS: ACCU-CHEK XX SCH (02:00)
[2017-05-11] MEDS: ACETAMINOPHEN 325 MG TAB PO PRN (03:04)
[2017-05-11] MEDS: PANTOPRAZOLE (EC) 40 MG TAB PO SCH (05:35)
[2017-05-11] MEDS: FUROSEMIDE 20 MG TAB PO SCH ×2 (05:35→16:59)
[2017-05-11 05:53] LABS: BASOPHILS % 0.4 % (0.0-2.0); EOSINOPHILS # 0.2 10^3/ul (0.0-0.5); EOSINOPHILS % 1.7 % (0.0-7.0); HEMATOCRIT 30.6 % (37.0-47.0); HEMOGLOBIN 10.1 g/dl (12.0-16.0); LYMPHOCYTES # 2.3 10^3/ul (0.8-2.9); LYMPHOCYTES % 24.4 % (15.0-51.0); MEAN CORPUSCULAR HEMOGLOBIN 30.1 pg (29.0-33.0); MEAN CORPUSCULAR VOLUME 91.1 fl (82.0-101.0); MEAN PLATELET VOLUME 8.3 fl (7.4-10.4); MONOCYTES % 10.6 % (0.0-11.0); NEUTROPHIL # 5.7 10^3/ul (1.6-7.5); PLATELET COUNT 430 10^3/UL (140-415); RED BLOOD COUNT 3.36 10^6/ul (4.20-5.40); WHITE BLOOD COUNT 9.2 10^3/ul (4.8-10.8)
[2017-05-11 06:21] LABS: CALCIUM 8.8 mg/dl (8.4-10.2); CREATININE 0.32 mg/dl (0.44-1.00); POTASSIUM 4.2 mmol/L (3.5-5.1)
--- NOTE | 2017-05-11 06:41 | PN ---
DATE: 05/09/2017 post VATS #2. SUBJECTIVE: Just complains of chest wall pain. No nausea and no vomiting. OBJECTIVE GENERAL: Awake, alert, oriented x3. VITAL SIGNS: Temperature 98.2, heart rate 86 and regular, respirations 18, blood pressure 118/78, saturation 99% on 3 liters of nasal cannula. LABORATORY DATA: WBC 12,900, with 69% neutrophils, hemoglobin 10.2, hematocrit 30.9. Chemistry: The BUN and creatinine normal. Sodium and potassium normal. Magnesium low, 1.6. DIAGNOSTIC DATA: Chest x-ray today showed new right chest tube with improved aeration of the right lung and smaller right pleural effusion. Chest tube drainage in the past 24 hours was 410 mL. Pigtail drainage in the past 24 hours was 20 mL. PHYSICAL EXAMINATION HEART: Regular. ABDOMEN: Soft. EXTREMITIES: Legs with no calf tenderness. ASSESSMENT: A 66-year-old female who presented with liver abscess multiloculated, liver abscess taken care of by percutaneous drainage through pigtails catheters, she developed pleural effusion, which was tapped 2 times under ultrasound-guidance, but was not able to drain it completely. it was loculated, so eventually, 2 days ago, thoracic surgeon did decortication and placement of new chest tube by a video-assisted thoracic surgery (VATS) procedure. Right now, the patient is doing fine. The chest x-ray reveals expantion. the last CT scan on 05/02/2017 revealed that the liver abscess mostly has been drained and shrunken. PLAN 1. Continue current care. 2. Continue antibiotics per Infectious Disease recommendation for at least [address] scan next week to see status of the liver abscess. Dictated By: JOHN BURGOS MD PS/NTS Conf#: [id number] DID#: [id number] CC: DARREL BURT MD;*EndCC* MTDD
--- NOTE | 2017-05-11 07:05 | PN ---
DATE: 05/08/2017 Patient is in ICU after operation on her right thoracic cavity for drainage of the loculated pleural effusion. Operation was VATS. Patient had VATS yesterday , today is postop day #1. SUBJECTIVE: Apparently, per nurse Medhat, the patient has been complaining of too much pain, so much that ____ fentanyl patch for her and she is tolerating now since then. OBJECTIVE: GENERAL: oriented x3. VITAL SIGNS: Temperature is 98, pulse is 98, respirations 24, blood pressure 164/76, saturation 96% nasal cannula. LABORATORY DATA: Today, WBC 16,700 with 79.5% neutrophils. Hemoglobin 10.4, hematocrit 29.9. Platelet count 454. Chemistry: Sodium, potassium normal. BUN and creatinine normal. . Chest tube drainage from yesterday afternoon till morning 210 mL and today, 100 mL of serosanguineous fluid. Chest tube was under water sealed. From abdominal point of view, apparently one of the pigtail drains, which was in the liver abscess cavity has been removed. I am not sure who has removed it , but it is not there anymore and this one which is there, is draining a slight amount of serosanguineous fluid. ABDOMEN: Soft. EXTREMITIES: Legs, no calf tenderness. ASSESSMENT: A 66-year-old female who presented with sepsis due to liver abscess. This was lobulated. This was drained and the last CT scan showed the abscess __ of more loculations , we requested drainage percutaneously by radiologist, but they said technically it is not possible to do it, so the patient continued on antibiotics, hoping that by finishing the course of antibiotics, these loculated abscesses will disappear hopefully. On the other hand, while patient was in the hospital, developed right pleural effusion and the pleural effusion was drained by Thoracentesis ultrasound-guided 210 mL was aspirated, but cardiothoracic surgery placed a chest tube, but the chest tube did not drain the fluid, which was diagnosed as a loculated pleural effusion; therefore, VATS was performed. PLAN: Continue observation with antibiotics for at least 6 weeks since admission per infectious disease. Chest tube management per cardiothoracic surgeon. Dictated By: JOHN JUSTIN/KT Conf#: [id number] DID#: [id number] CC: DARREL BURT MD;*EndCC* MTDD
[2017-05-11] MEDS: Insulin NOVOLOG SS MILD Algorithm (SS with meals and bedtime) SC SCH ×4 (08:25→21:00)
[2017-05-11] MEDS: LACTOBACILLUS RHAMNOSUS CAP PO SCH ×2 (08:51→21:00)
[2017-05-11] MEDS: DOCUSATE SODIUM 100 MG CAP PO SCH ×2 (08:51→21:00)
[2017-05-11] MEDS: METOPROLOL 25 MG TAB PO SCH ×2 (08:51→21:00)
[2017-05-11] MEDS: POTASSIUM CHLORIDE (SR) 20 MEQ TAB PO SCH ×2 (08:51→21:01)
[2017-05-11] MEDS: ENOXAPARIN 30 MG/0.3 ML SYG SC SCH (09:48)
--- NOTE | 2017-05-11 10:18 | PN ---
DATE: 05/10/2017 SUBJECTIVE: Does not have any specific complaint, mild pain in the thoracic cavity at site of opera tion. No abdominal pain, has had a bowel movement, tolerating solid diet. OBJECTIVE: GENERAL: Awake, oriented x3. VITAL SIGNS: Temperature 97.8, heart rate 80 and regular, respirations 18, blood pressure 117/68, s aturation 100% on 2 liter nasal cannula. CARDIOVASCULAR: Regular. LUNGS: Decreased breathing sound on the right side. Chest tube in place and has drained almost ser ous fluid 210 mL in the past 24 hours. There is 1 pigtail left in the abscess cavity, which has francisco ined 0 in the past 24 hours. ABDOMEN: Soft. Bowel sounds normal. EXTREMITIES: Legs no calf tenderness. LABORATORY DATA: WBC dropped to 10,200 with 64% neutrophils, hemoglobin 10.4, hematocrit 31.8. Bernarda tegan: Sodium, potassium normal, BUN and creatinine normal. Carcinoembryonic antigen I ordered ye sterday is 1.7, which is normal range, considering the patient had cancer and rectosigmoid resection in 08/2016. ASSESSMENT: A 66-year-old female who presented with sepsis and was found to have a very large centr ally located multiloculated lobulated liver abscess. The liver abscess was drained percutaneously w ith pigtails x3. It gradually shrunk. Meanwhile, the patient developed right-sided pleural effusio n. Percutaneous ultrasound-guided drainage was done x2, but was not successful to drain all of it. Eventually needed decortication and VATS procedure which was done 3 days ago. Now, the patient has a chest tube and 1 pigtail drain. PLAN: Continue current care with antibiotics per ID recommendation. Next week we will proceed with another CT scan of the abdomen to evaluate the status of the liver abscess. Dictated By: JOHN JUSTIN/KT Conf#: [id number] DID#: [id number]
--- NOTE | 2017-05-11 11:56 | PN ---
DATE: 05/06/2017 SUBJECTIVE: No complaint. No nausea, no vomiting, no fever. OBJECTIVE: GENERAL: Awake, alert, oriented x3. VITAL SIGNS: Temperature 98.2, heart rate between 79 and 101, blood pressure 104/63, saturation 97% room air. HEART: Regular. LUNGS: Decreased breathing sounds rt.side ABDOMEN: Soft. Drainage from the pigtail drain in is serosanguineous, which appears to be left over from 2 days ago. EXTREMITIES: Lower extremity no edema. LABORATORY DATA: Sodium, potassium, BUN and creatinine is within normal limits. Chest tube drainage 0 in the past 24 hours,. ASSESSMENT: A 66-year-old female who presented to emergency room with sepsis and was found to have a very large multiloculated multilobular liver abscess Percutaneous drainage was done, The patient was started on antibiotics and also patient developed right pleural effusion. Chest tube was inserted. Follow up CT scan has revealed that the liver abscess has shrunk to a great extent but 2 more loculation present, which according to the radiologist they are not amenable to percutaneous drainage, but it appears that the size of them has decreased as well. The other one, the culture has grown joe-hemolytic streptococcus. The patient is on antibiotics per infectious disease recommendations. She is to get 6 weeks of antibiotics. Thoracic surgeon will proceed with VATS procedure for loculated pleural effusion on the right side tomorrow . For the liver abscess, will continue patient on antibiotic and keep the pigtail drain in place. Before removing them, another CT of the abdomen will be obtained, maybe a week to see the effect of antibiotic in eradicating the remaining abscesses. Dictated By: JOHN JUSTIN/KT Conf#: [id number] DID#: [id number] MTDD
--- NOTE | 2017-05-11 12:15 | PN ---
DATE: 04/28/2017 SUBJECTIVE DATA: No new complaints. One chest tube on the right side. No fever. No chills. No nausea. No vomiting. OBJECTIVE DATA: GENERAL: Awake, alert, oriented x3. VITAL SIGNS: Temperature 98.1, heart rate 86 blood pressure 110/69, saturation 94 percent on 6 liter n.c. LABORATORY AND DIAGNOSTIC DATA: WBC 10,700 Chemistry: wnl. Chest tube on the right side Gram stain on fluid from liver abscess showed polymorphonuclear lymphocytes,. ASSESSMENT AND PLAN: Patient is a 66-year-old female who was admitted because of abdominal pain and fever, was found to have multiloculated and lobulated liver abscess, mainly central to the left and right liver lobes, percutaneously placed pig tail has stopped draining . Meanwhile, patient developed right pleural effusion, thoracenthesis was done_ twice, first time drained 210 mL and second time drained 420 mL. Meanwhile, the chest tube which was placed was not draining that much. . Continue current care . Dictated By: Osmani Ceballos MD /rachel/skyler /Document#: [id number] SANJAY
--- NOTE | 2017-05-11 12:17 | CONS ---
Date/Time of Note Date/Time of Note DATE: 05/11/17 TIME: 12:14 Assessment/Plan Assessment/Plan Chief Complaint/Hosp Course - severe sepsis due to pyogenic liver abscess, loculated pleural effusion s/p R thoracotomy, thoracoscopy, total pulmonary decortication on 05/07/2017. Path showed fibrin, necrotic tissue and abscess, no evidence of malignancy. - multiloculated pyogenic liver abscess s/p CT guided drainage catheter placement 04/15/2017, 04/23/2017, s/p repeat drainage 04/27/2017; cultures from gamma hemolytic strep, cultures from 04/23/2017 alpha hemolytic strep - loculated pleural effusion likely secondary to hepatic process/Hepatic hydrothorax, R>L, s/p R thoracentesis on 04/20/2017, s/p chest tube placement on 04/22/2017 - intermittent diarrhea - normocytic anemia requiring blood transfusion - coagulopathy, improved - Transaminitis, improved - Hyponatremia - CoNS in urine culture with trivial pyuria, likely contaminant - Hx of rectal CA s/p Low anterior resection 08/29/2016 - Severe protein calorie malnutrition - allergy to vancomycin recommendations: - follow up CT to be arranged by Dr. Ceballos. will review the result - continue amp/sulbactam (04/18/2017-); s/p linezolid and pip/tazo (04/13-2016). - we recommend long-term (6 weeks at least) antibiotic administration - encouraged expectoration of sputum by using IS, deep respiration management d/w Pt Problems: Consultation Date/Type/Reason Admit Date/Time Apr 13, 2017 at 19:51 Initial Consult Date 04/21/17 Type of Consultation: ID Referring Provider: DARREL BURT MD 24 HR Interval Summary Constitutional: no complaints Detailed Summary Eyes: no complaints ENT: no complaints Respiratory: pleuritic pain, sputum (cannot expectoate because she is too weak to cough. Cannot cough forcefully due to post-op pain), No cough, No shortness of breath Cardiovascular: no complaints Gastrointestinal: no complaints Genitourinary: no complaints Musculoskeletal: no complaints Skin: no complaints Neurologic: no complaints Exam/Review of Systems Vital Signs Vitals Vital Signs Date Time Temp Pulse Resp B/P Pulse Ox O2 Delivery O2 Flow Rate FiO2 05/11/17 11:05 98.0 80 16 114/60 95 05/11/17 01:07 2.0 05/10/17 00:00 Nasal Cannula 05/08/17 04:21 27 Intake and Output 05/10/17 05/10/17 05/11/17 15:00 23:00 07:00 Intake Total 300 ml 380 ml Output Total 964 ml 1600 ml Balance -664 ml -1220 ml Exam Constitutional: alert, oriented, well developed Psych: nl mood/affect, no complaints Head: atraumatic, normocephalic Eyes: nl conjunctiva, nl lids ENMT: nl external ears & nose, nl nasal mucosa & septum Neck: supple Respiratory: diminished breath sounds, No crackles/rales, No wheezing Cardiovascular: nl pulses, other (Y chest tube), regular rate and rhythm Gastrointestinal: non-tender, other (external drainage catheter), soft Musculoskeletal: nl extremities to inspection Extremities: normal pulses 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: WINE BOTTLE INSPECTOR II-XII intact, 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, nl speech Skin: nl turgor Results Result Diagram: 05/11/17 0506 05/11/17 0506 Results 24 hrs Laboratory Tests Test 05/10/17 17:18 05/10/17 21:19 05/11/17 05:06 05/11/17 07:47 Bedside Glucose 100 130 114 White Blood Count 9.2 Red Blood Count 3.36 L Hemoglobin 10.1 L Hematocrit 30.6 L Mean Corpuscular Volume 91.1 Mean Corpuscular Hemoglobin 30.1 Mean Corpuscular Hemoglobin Concent 33.0 Red Cell Distribution Width 14.0 Platelet Count 430 H Mean Platelet Volume 8.3 Neutrophils % 62.0 Lymphocytes % 24.4 Monocytes % 10.6 Eosinophils % 1.7 Basophils % 0.4 Nucleated Red Blood Cells % 0.0 Neutrophils # 5.7 Lymphocytes # 2.3 Monocytes # 1.0 H Eosinophils # 0.2 Basophils # 0.0 Nucleated Red Blood Cells # 0.0 Sodium Level 134 L Potassium Level 4.2 Chloride Level 98 Carbon Dioxide Level 31 Anion Gap 9 Blood Urea Nitrogen 9 Creatinine 0.32 L Glucose Level 120 Calcium Level 8.8 Test 05/11/17 11:43 Bedside Glucose 210 Medications Medications Current Medications Miscellaneous Information 1 ea NOTE XX ; Start 04/13/17 at 21:30 Glucose (Glutose) 15 gm Q15M PRN PO DECREASED GLUCOSE; Start 04/13/17 at 21:30 Glucose (Glutose) 22.5 gm Q15M PRN PO DECREASED GLUCOSE; Start 04/13/17 at 21: 30 Dextrose (D50w Syringe) 25 ml Q15M PRN IV DECREASED GLUCOSE; Start 04/13/17 at 21:30 Dextrose (D50w Syringe) 50 ml Q15M PRN IV DECREASED GLUCOSE; Start 04/13/17 at 21:30 Glucagon (Glucagen) 1 mg Q15M PRN IM DECREASED GLUCOSE; Start 04/13/17 at 21:30 Glucose (Glutose) 15 gm Q15M PRN BUCCAL DECREASED GLUCOSE; Start 04/13/17 at 21 :30 Ondansetron HCl (Zofran Inj) 4 mg Q6 PRN IV NAUSEA AND/OR VOMITING Last administered on 04/26/17 20:25; Admin Dose 4 MG; Start 04/13/17 at 21:30 Guaifenesin/ Dextromethorphan (Robitussin Dm Liquid Cup) 5 ml Q4H PRN PO COUGH Last administered on 04/19/17 05:09; Admin Dose 5 ML; Start 04/15/17 at 16:30 Pantoprazole (Protonix Tab) 40 mg DAILY@06 PO Last administered on 05/11/17 05 :35; Admin Dose 40 MG; Start 04/17/17 at 06:00 Acetaminophen (Tylenol Tab) 500 mg Q6H PRN PO PAIN AND OR ELEVATED TEMP Last administered on 05/06/17 03:25; Admin Dose 500 MG; Start 04/17/17 at 03:00 Magnesium Hydroxide 30 ml 30 ml DAILY PRN PO CONSTIPATION Last administered on 04/28/17 18:33; Admin Dose 30 ML; Start 04/17/17 at 11:30 Ampicillin Sodium/ Sulbactam Sodium (Unasyn 1.5gm/NS (Pmx)) 50 ml @ 100 mls/hr Q6 IVPB Last administered on 05/11/17 11:25; Admin Dose 100 MLS/HR; Start at 18:00 Fentanyl (Duragesic 12 Mcg/Hr Patch) 1 patch Q72H TRANSDERM Last administered on 05/10/17 07:54; Admin Dose 1 PATCH; Start 04/22/17 at 05:30 Morphine Sulfate (morphine) 1 mg Q4H PRN IV SEVERE PAIN LEVEL 7-10 Last administered on 05/08/17 02:30; Admin Dose 1 MG; Start 04/22/17 at 17:30 Metoclopramide HCl (Reglan) 10 mg Q6H PRN IV NAUSEA Last administered on 20:18; Admin Dose 10 MG; Start 04/22/17 at 21:00 Enoxaparin Sodium (Lovenox) 30 mg DAILY SC Last administered on 05/11/17 09:48 ; Admin Dose 30 MG; Start 04/23/17 at 20:30 Acetaminophen (Tylenol Supp) 650 mg Q6H PRN [place] FEVER GREATER THAN 100.6; Start 04/23/17 at 20:30 Acetaminophen (Tylenol Tab) 650 mg Q6H PRN PO PAIN AND OR ELEVATED TEMP Last administered on 05/11/17 03:04; Admin Dose 650 MG; Start 04/23/17 at 20:30 Lactobacillus Acidophilus/ Rhamnosus (Culturelle) 1 cap BID PO Last administered on 05/11/17 08:51; Admin Dose 1 CAP; Start 04/24/17 at 11:30 Diagnostic Test (Pha) (Accu-Chek) 1 ea 02 XX ; Start 04/26/17 at 02:00 Docusate Sodium (Colace) 100 mg BID PO Last administered on 05/11/17 08:51; Admin Dose 100 MG; Start 04/30/17 at 21:00 Potassium Chloride (Klor-Con 20) 20 meq BID PO Last administered on 05/11/17 08:51; Admin Dose 20 MEQ; Start 05/04/17 at 21:00 Nalbuphine HCl (Nubain) 10 mg Q4H PRN IV PRURITUS; Start 05/07/17 at 13:30 Ondansetron HCl (Zofran Inj) 4 mg Q6H PRN IV NAUSEA AND/OR VOMITING; Start 05/07/17 at 13:30 Metoprolol Tartrate (Lopressor) 25 mg BID PO Last administered on 05/11/17 08: 51; Admin Dose 25 MG; Start 05/08/17 at 14:00 AARON ANSARI M.D. May 11, 2017 12:17
--- NOTE | 2017-05-11 14:04 | PN ---
Date/Time of Note Date/Time of Note DATE: 05/11/17 TIME: 14:02 Assessment/Plan VTE Prophylaxis VTE Prophylaxis Intervention: SCD's Lines/Catheters IV [facility]ter Type (from [email or web address] Peripheral IV Urinary Cath still in place: Yes Reason Cath still needed: urinary retention Assessment/Plan Chief Complaint/Hosp Course Patient was improvement in aeration of the right lung, remains hemodynamically stable, pain is well controlled. Plan for CT of the abdomen for evaluation of liver abscess this week. Assessment/Plan - Bilateral pleural effusions right more than left, status post right thoracentesis 04/20. S/p right chest tube insertion on 04/[address] Jackson, vascular surgery. S/p right thoracentesis 04/26. S/P Right VATS decortication on 05/07. - Acute respiratory failure secondary to #1, Dr. Damico is following in pulmonology consultation continue oxygen oxygen supplementation - Severe sepsis 2/2 to liver abscess, resolving. Continue antibiotics per ID. is following in infection disease consultation - Liver abscess unchanged per recent CT, s/p CT guided drainage 04/15/2017, s/p CT guided percutaneous drainage of liver abscess 04/23, status post CT-guided liver abscess drainage 04/27 - Normocytic anemia requiring blood transfusion - Hx of rectal CA s/p Low anterior resection 08/29/2016 Further recommendations based on clinical course. Plan of care discussed with Dr. Dior Problems: Exam/Review of Systems Vital Signs Vitals Vital Signs Date Time Temp Pulse Resp B/P Pulse Ox O2 Delivery O2 Flow Rate FiO2 05/11/17 12:23 81 05/11/17 11:05 98.0 16 114/60 95 05/11/17 01:07 2.0 05/10/17 00:00 Nasal Cannula 05/08/17 04:21 27 Intake and Output 05/10/17 05/10/17 05/11/17 15:00 23:00 07:00 Intake Total 300 ml 380 ml Output Total 964 ml 1600 ml Balance -664 ml -1220 ml Exam Constitutional: alert Neck: supple Respiratory: slightly diminished breath sounds, R CT*2 Cardiovascular: nl pulses Gastrointestinal: other (Hepatic drain), soft Extremities: normal pulses Results Result Diagram: 05/11/17 0506 05/11/17 0506 Results 24 hrs Laboratory Tests Test 05/10/17 17:18 05/10/17 21:19 05/11/17 05:06 05/11/17 07:47 Bedside Glucose 100 130 114 White Blood Count 9.2 Red Blood Count 3.36 L Hemoglobin 10.1 L Hematocrit 30.6 L Mean Corpuscular Volume 91.1 Mean Corpuscular Hemoglobin 30.1 Mean Corpuscular Hemoglobin Concent 33.0 Red Cell Distribution Width 14.0 Platelet Count 430 H Mean Platelet Volume 8.3 Neutrophils % 62.0 Lymphocytes % 24.4 Monocytes % 10.6 Eosinophils % 1.7 Basophils % 0.4 Nucleated Red Blood Cells % 0.0 Neutrophils # 5.7 Lymphocytes # 2.3 Monocytes # 1.0 H Eosinophils # 0.2 Basophils # 0.0 Nucleated Red Blood Cells # 0.0 Sodium Level 134 L Potassium Level 4.2 Chloride Level 98 Carbon Dioxide Level 31 Anion Gap 9 Blood Urea Nitrogen 9 Creatinine 0.32 L Glucose Level 120 Calcium Level 8.8 Test 05/11/17 11:43 Bedside Glucose 210 Medications Medications Current Medications Miscellaneous Information 1 ea NOTE XX ; Start 04/13/17 at 21:30 Glucose (Glutose) 15 gm Q15M PRN PO DECREASED GLUCOSE; Start 04/13/17 at 21:30 Glucose (Glutose) 22.5 gm Q15M PRN PO DECREASED GLUCOSE; Start 04/13/17 at 21: 30 Dextrose (D50w Syringe) 25 ml Q15M PRN IV DECREASED GLUCOSE; Start 04/13/17 at 21:30 Dextrose (D50w Syringe) 50 ml Q15M PRN IV DECREASED GLUCOSE; Start 04/13/17 at 21:30 Glucagon (Glucagen) 1 mg Q15M PRN IM DECREASED GLUCOSE; Start 04/13/17 at 21:30 Glucose (Glutose) 15 gm Q15M PRN BUCCAL DECREASED GLUCOSE; Start 04/13/17 at 21 :30 Ondansetron HCl (Zofran Inj) 4 mg Q6 PRN IV NAUSEA AND/OR VOMITING Last administered on 04/26/17 20:25; Admin Dose 4 MG; Start 04/13/17 at 21:30 Guaifenesin/ Dextromethorphan (Robitussin Dm Liquid Cup) 5 ml Q4H PRN PO COUGH Last administered on 04/19/17 05:09; Admin Dose 5 ML; Start 04/15/17 at 16:30 Pantoprazole (Protonix Tab) 40 mg DAILY@06 PO Last administered on 05/11/17 05 :35; Admin Dose 40 MG; Start 04/17/17 at 06:00 Acetaminophen (Tylenol Tab) 500 mg Q6H PRN PO PAIN AND OR ELEVATED TEMP Last administered on 05/06/17 03:25; Admin Dose 500 MG; Start 04/17/17 at 03:00 Magnesium Hydroxide 30 ml 30 ml DAILY PRN PO CONSTIPATION Last administered on 04/28/17 18:33; Admin Dose 30 ML; Start 04/17/17 at 11:30 Ampicillin Sodium/ Sulbactam Sodium (Unasyn 1.5gm/NS (Pmx)) 50 ml @ 100 mls/hr Q6 IVPB Last administered on 05/11/17 11:25; Admin Dose 100 MLS/HR; Start at 18:00 Fentanyl (Duragesic 12 Mcg/Hr Patch) 1 patch Q72H TRANSDERM Last administered on 05/10/17 07:54; Admin Dose 1 PATCH; Start 04/22/17 at 05:30 Morphine Sulfate (morphine) 1 mg Q4H PRN IV SEVERE PAIN LEVEL 7-10 Last administered on 05/08/17 02:30; Admin Dose 1 MG; Start 04/22/17 at 17:30 Metoclopramide HCl (Reglan) 10 mg Q6H PRN IV NAUSEA Last administered on 20:18; Admin Dose 10 MG; Start 04/22/17 at 21:00 Enoxaparin Sodium (Lovenox) 30 mg DAILY SC Last administered on 05/11/17 09:48 ; Admin Dose 30 MG; Start 04/23/17 at 20:30 Acetaminophen (Tylenol Supp) 650 mg Q6H PRN [place] FEVER GREATER THAN 100.6; Start 04/23/17 at 20:30 Acetaminophen (Tylenol Tab) 650 mg Q6H PRN PO PAIN AND OR ELEVATED TEMP Last administered on 05/11/17 03:04; Admin Dose 650 MG; Start 04/23/17 at 20:30 Lactobacillus Acidophilus/ Rhamnosus (Culturelle) 1 cap BID PO Last administered on 05/11/17 08:51; Admin Dose 1 CAP; Start 04/24/17 at 11:30 Diagnostic Test (Pha) (Accu-Chek) 1 ea 02 XX ; Start 04/26/17 at 02:00 Docusate Sodium (Colace) 100 mg BID PO Last administered on 05/11/17 08:51; Admin Dose 100 MG; Start 04/30/17 at 21:00 Potassium Chloride (Klor-Con 20) 20 meq BID PO Last administered on 05/11/17 08:51; Admin Dose 20 MEQ; Start 05/04/17 at 21:00 Nalbuphine HCl (Nubain) 10 mg Q4H PRN IV PRURITUS; Start 05/07/17 at 13:30 Ondansetron HCl (Zofran Inj) 4 mg Q6H PRN IV NAUSEA AND/OR VOMITING; Start 05/07/17 at 13:30 Metoprolol Tartrate (Lopressor) 25 mg BID PO Last administered on 05/11/17 08: 51; Admin Dose 25 MG; Start 05/08/17 at 14:00 WINDY EMERY May 11, 2017 14:04
--- NOTE | 2017-05-11 14:35 | CONS ---
Date/Time of Note Date/Time of Note DATE: 05/11/17 TIME: 14:33 Assessment/Plan Assessment/Plan Additional Assessment/Plan Assessment and recommendations; 1. Patient admitted for hepatic abscess then developed right lower lobe pneumonia complicated by empyema status post VATS decortication with marked clinical improvement. Continue current treatment. Obtain follow-up chest x-ray. Consultation Date/Type/Reason Admit Date/Time Apr 13, 2017 at 19:51 Initial Consult Date 04/15/17 Type of Consultation: Pulmonary Referring Provider: DARREL BURT MD 24 HR Interval Summary Free Text/Dictation Patient's condition is stable. Denies any shortness of breath, chest pain, abdominal pain, nausea vomiting. Any fever or chills. General exam; elderly woman, awake alert currently in no distress. Exam/Review of Systems Vital Signs Vitals Vital Signs Date Time Temp Pulse Resp B/P Pulse Ox O2 Delivery O2 Flow Rate FiO2 05/11/17 12:23 81 05/11/17 11:05 98.0 16 114/60 95 05/11/17 01:07 2.0 05/10/17 00:00 Nasal Cannula 05/08/17 04:21 27 Intake and Output 05/10/17 05/10/17 05/11/17 15:00 23:00 07:00 Intake Total 300 ml 380 ml Output Total 964 ml 1600 ml Balance -664 ml -1220 ml Exam HEENT exam; supple neck, no JVD. No lymphadenopathy. Midline trachea. No thyromegaly. Patient has carious teeth. Pupils are small bilaterally. Chest exam; improved breath sounds right lung. Right-sided chest tube in place. Left lung is clear to auscultation. S1-S2 audible, no murmurs. Regular rhythm. Abdomen exam; soft, no organomegaly. Nontender. Bowel sounds audible. Extremity exam; no edema. CAFETERIA CASHIER exam; no focal deficit. Results Result Diagram: 05/11/17 0506 05/11/17 0506 Results 24 hrs Laboratory Tests Test 05/10/17 17:18 05/10/17 21:19 05/11/17 05:06 05/11/17 07:47 Bedside Glucose 100 130 114 White Blood Count 9.2 Red Blood Count 3.36 L Hemoglobin 10.1 L Hematocrit 30.6 L Mean Corpuscular Volume 91.1 Mean Corpuscular Hemoglobin 30.1 Mean Corpuscular Hemoglobin Concent 33.0 Red Cell Distribution Width 14.0 Platelet Count 430 H Mean Platelet Volume 8.3 Neutrophils % 62.0 Lymphocytes % 24.4 Monocytes % 10.6 Eosinophils % 1.7 Basophils % 0.4 Nucleated Red Blood Cells % 0.0 Neutrophils # 5.7 Lymphocytes # 2.3 Monocytes # 1.0 H Eosinophils # 0.2 Basophils # 0.0 Nucleated Red Blood Cells # 0.0 Sodium Level 134 L Potassium Level 4.2 Chloride Level 98 Carbon Dioxide Level 31 Anion Gap 9 Blood Urea Nitrogen 9 Creatinine 0.32 L Glucose Level 120 Calcium Level 8.8 Test 05/11/17 11:43 Bedside Glucose 210 Medications Medications Current Medications Miscellaneous Information 1 ea NOTE XX ; Start 04/13/17 at 21:30 Glucose (Glutose) 15 gm Q15M PRN PO DECREASED GLUCOSE; Start 04/13/17 at 21:30 Glucose (Glutose) 22.5 gm Q15M PRN PO DECREASED GLUCOSE; Start 04/13/17 at 21: 30 Dextrose (D50w Syringe) 25 ml Q15M PRN IV DECREASED GLUCOSE; Start 04/13/17 at 21:30 Dextrose (D50w Syringe) 50 ml Q15M PRN IV DECREASED GLUCOSE; Start 04/13/17 at 21:30 Glucagon (Glucagen) 1 mg Q15M PRN IM DECREASED GLUCOSE; Start 04/13/17 at 21:30 Glucose (Glutose) 15 gm Q15M PRN BUCCAL DECREASED GLUCOSE; Start 04/13/17 at 21 :30 Ondansetron HCl (Zofran Inj) 4 mg Q6 PRN IV NAUSEA AND/OR VOMITING Last administered on 04/26/17 20:25; Admin Dose 4 MG; Start 04/13/17 at 21:30 Guaifenesin/ Dextromethorphan (Robitussin Dm Liquid Cup) 5 ml Q4H PRN PO COUGH Last administered on 04/19/17 05:09; Admin Dose 5 ML; Start 04/15/17 at 16:30 Pantoprazole (Protonix Tab) 40 mg DAILY@06 PO Last administered on 05/11/17 05 :35; Admin Dose 40 MG; Start 04/17/17 at 06:00 Acetaminophen (Tylenol Tab) 500 mg Q6H PRN PO PAIN AND OR ELEVATED TEMP Last administered on 05/06/17 03:25; Admin Dose 500 MG; Start 04/17/17 at 03:00 Magnesium Hydroxide 30 ml 30 ml DAILY PRN PO CONSTIPATION Last administered on 04/28/17 18:33; Admin Dose 30 ML; Start 04/17/17 at 11:30 Ampicillin Sodium/ Sulbactam Sodium (Unasyn 1.5gm/NS (Pmx)) 50 ml @ 100 mls/hr Q6 IVPB Last administered on 05/11/17 11:25; Admin Dose 100 MLS/HR; Start at 18:00 Fentanyl (Duragesic 12 Mcg/Hr Patch) 1 patch Q72H TRANSDERM Last administered on 05/10/17 07:54; Admin Dose 1 PATCH; Start 04/22/17 at 05:30 Morphine Sulfate (morphine) 1 mg Q4H PRN IV SEVERE PAIN LEVEL 7-10 Last administered on 05/08/17 02:30; Admin Dose 1 MG; Start 04/22/17 at 17:30 Metoclopramide HCl (Reglan) 10 mg Q6H PRN IV NAUSEA Last administered on 20:18; Admin Dose 10 MG; Start 04/22/17 at 21:00 Enoxaparin Sodium (Lovenox) 30 mg DAILY SC Last administered on 05/11/17 09:48 ; Admin Dose 30 MG; Start 04/23/17 at 20:30 Acetaminophen (Tylenol Supp) 650 mg Q6H PRN [place] FEVER GREATER THAN 100.6; Start 04/23/17 at 20:30 Acetaminophen (Tylenol Tab) 650 mg Q6H PRN PO PAIN AND OR ELEVATED TEMP Last administered on 05/11/17 03:04; Admin Dose 650 MG; Start 04/23/17 at 20:30 Lactobacillus Acidophilus/ Rhamnosus (Culturelle) 1 cap BID PO Last administered on 05/11/17 08:51; Admin Dose 1 CAP; Start 04/24/17 at 11:30 Diagnostic Test (Pha) (Accu-Chek) 1 ea 02 XX ; Start 04/26/17 at 02:00 Docusate Sodium (Colace) 100 mg BID PO Last administered on 05/11/17 08:51; Admin Dose 100 MG; Start 04/30/17 at 21:00 Potassium Chloride (Klor-Con 20) 20 meq BID PO Last administered on 05/11/17 08:51; Admin Dose 20 MEQ; Start 05/04/17 at 21:00 Nalbuphine HCl (Nubain) 10 mg Q4H PRN IV PRURITUS; Start 05/07/17 at 13:30 Ondansetron HCl (Zofran Inj) 4 mg Q6H PRN IV NAUSEA AND/OR VOMITING; Start 05/07/17 at 13:30 Metoprolol Tartrate (Lopressor) 25 mg BID PO Last administered on 05/11/17 08: 51; Admin Dose 25 MG; Start 05/08/17 at 14:00 LINDA GARCIA May 11, 2017 14:35
--- NOTE | 2017-05-11 14:40 | PN ---
Date/Time of Note Date/Time of Note DATE: 05/11/17 TIME: 14:39 Assessment/Plan Lines/Catheters IV Catheter Type (from Nrsg): Peripheral IV Khan in Place (from Nrsg): Yes Assessment/Plan Chief Complaint/Hosp Course P Right VATS decortication CXR Much improved CT65 cc will DC CT tomorrow Continue antibiotics per ID Problems: Subjective 24 Hr Interval Summary Constitutional: improved Pain Control: mild Exam/Review of Systems Vital Signs Vitals Vital Signs Date Time Temp Pulse Resp B/P Pulse Ox O2 Delivery O2 Flow Rate FiO2 05/11/17 12:23 81 05/11/17 11:05 98.0 16 114/60 95 05/11/17 01:07 2.0 05/10/17 00:00 Nasal Cannula 05/08/17 04:21 27 Intake and Output 05/10/17 05/10/17 05/11/17 14:59 22:59 06:59 Intake Total 300 ml 380 ml Output Total 964 ml 1600 ml Balance -664 ml -1220 ml Exam ENMT: mucosa pink and moist, nl external ears & nose, nl lips & teeth, nl nasal mucosa & septum Neck: non-tender, supple Respiratory: clear to auscultation, normal air movement Cardiovascular: nl pulses, regular rate and rhythm Gastrointestinal: nl liver, spleen, non-tender, soft Results Result Diagram: 05/11/17 0506 05/11/17 0506 ADRIAN NO MD May 11, 2017 14:40
--- NOTE | 2017-05-11 17:07 | CONS ---
Date/Time of Note Date/Time of Note DATE: 05/11/17 TIME: 17:05 Assessment/Plan Assessment/Plan Chief Complaint/Hosp Course Problems: Additional Assessment/Plan 1. Bilateral pleural effusions right more than left, status post right thoracentesis 04/20. S/p right chest tube insertion on 04/[address] Jackson, vascular surgery. S/p right thoracentesis 04/26. - s/p Right VATS decortication 05/07/2017 2. Acute hyponatremia 2/2 Hypovolemic hyponatremia - Resolved 2. sepsis due to liver abscess 3. Hepatic abscess oN CT scan s/p CT guided drainage on 04/15/17 and 04/23/17 4. Acute transaminitis 5. h/o Colon CA s/p previous Surgery 6. Hypokalemia 7. acute resp failiue due to # 1 8. hypomagnesemia Plan : S/p Right VATS decortication, CXR much improved after surgery, small pleural effusion , HCO3 34- changed from IV to PO lasix 20mg PO BID, AM CXR has been ordered to assess for pleural effusion< CHF IV abx as per ID, renally dose all abx pulmonary ID and G surgery has been following on patient. will follow up Consultation Date/Type/Reason Admit Date/Time Apr 13, 2017 at 19:51 Initial Consult Date 04/13/17 Type of Consultation: NEPHROLOG y Referring Provider: DARREL BURT MD 24 HR Interval Summary Free Text/Dictation no pain, less SOB, breathint improved Exam/Review of Systems Vital Signs Vitals Vital Signs Date Time Temp Pulse Resp B/P Pulse Ox O2 Delivery O2 Flow Rate FiO2 05/11/17 16:29 86 05/11/17 15:44 3.0 05/11/17 15:20 98.1 16 114/64 99 05/10/17 00:00 Nasal Cannula 05/08/17 04:21 27 Intake and Output 05/10/17 05/10/17 05/11/17 15:00 23:00 07:00 Intake Total 300 ml 380 ml Output Total 964 ml 1600 ml Balance -664 ml -1220 ml Exam Constitutional: alert, frail, oriented Respiratory: diminished breath sounds, other (right chest tube) Cardiovascular: nl pulses, regular rate and rhythm Musculoskeletal: nl extremities to inspection Extremities: No edema 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, 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 Results Result Diagram: 05/11/17 0506 05/11/17 0506 Results 24 hrs Laboratory Tests Test 05/10/17 17:18 05/10/17 21:19 05/11/17 05:06 05/11/17 07:47 Bedside Glucose 100 130 114 White Blood Count 9.2 Red Blood Count 3.36 L Hemoglobin 10.1 L Hematocrit 30.6 L Mean Corpuscular Volume 91.1 Mean Corpuscular Hemoglobin 30.1 Mean Corpuscular Hemoglobin Concent 33.0 Red Cell Distribution Width 14.0 Platelet Count 430 H Mean Platelet Volume 8.3 Neutrophils % 62.0 Lymphocytes % 24.4 Monocytes % 10.6 Eosinophils % 1.7 Basophils % 0.4 Nucleated Red Blood Cells % 0.0 Neutrophils # 5.7 Lymphocytes # 2.3 Monocytes # 1.0 H Eosinophils # 0.2 Basophils # 0.0 Nucleated Red Blood Cells # 0.0 Sodium Level 134 L Potassium Level 4.2 Chloride Level 98 Carbon Dioxide Level 31 Anion Gap 9 Blood Urea Nitrogen 9 Creatinine 0.32 L Glucose Level 120 Calcium Level 8.8 Test 05/11/17 11:43 05/11/17 16:56 Bedside Glucose 210 136 Medications Medications Current Medications Miscellaneous Information 1 ea NOTE XX ; Start 04/13/17 at 21:30 Glucose (Glutose) 15 gm Q15M PRN PO DECREASED GLUCOSE; Start 04/13/17 at 21:30 Glucose (Glutose) 22.5 gm Q15M PRN PO DECREASED GLUCOSE; Start 04/13/17 at 21: 30 Dextrose (D50w Syringe) 25 ml Q15M PRN IV DECREASED GLUCOSE; Start 04/13/17 at 21:30 Dextrose (D50w Syringe) 50 ml Q15M PRN IV DECREASED GLUCOSE; Start 04/13/17 at 21:30 Glucagon (Glucagen) 1 mg Q15M PRN IM DECREASED GLUCOSE; Start 04/13/17 at 21:30 Glucose (Glutose) 15 gm Q15M PRN BUCCAL DECREASED GLUCOSE; Start 04/13/17 at 21 :30 Ondansetron HCl (Zofran Inj) 4 mg Q6 PRN IV NAUSEA AND/OR VOMITING Last administered on 04/26/17t 20:25; Admin Dose 4 MG; Start 04/13/17 at 21:30 Guaifenesin/ Dextromethorphan (Robitussin Dm Liquid Cup) 5 ml Q4H PRN PO COUGH Last administered on 04/19/17 05:09; Admin Dose 5 ML; Start 04/15/17 at 16:30 Pantoprazole (Protonix Tab) 40 mg DAILY@06 PO Last administered on 05/11/17 05 :35; Admin Dose 40 MG; Start 04/17/17 at 06:00 Acetaminophen (Tylenol Tab) 500 mg Q6H PRN PO PAIN AND OR ELEVATED TEMP Last administered on 05/06/17 03:25; Admin Dose 500 MG; Start 04/17/17 at 03:00 Magnesium Hydroxide 30 ml 30 ml DAILY PRN PO CONSTIPATION Last administered on 04/28/17 18:33; Admin Dose 30 ML; Start 04/17/17 at 11:30 Ampicillin Sodium/ Sulbactam Sodium (Unasyn 1.5gm/NS (Pmx)) 50 ml @ 100 mls/hr Q6 IVPB Last administered on 05/11/17 17:00; Admin Dose 100 MLS/HR; Start at 18:00 Fentanyl (Duragesic 12 Mcg/Hr Patch) 1 patch Q72H TRANSDERM Last administered on 05/10/17 07:54; Admin Dose 1 PATCH; Start 04/22/17 at 05:30 Morphine Sulfate (morphine) 1 mg Q4H PRN IV SEVERE PAIN LEVEL 7-10 Last administered on 05/08/17 02:30; Admin Dose 1 MG; Start 04/22/17 at 17:30 Metoclopramide HCl (Reglan) 10 mg Q6H PRN IV NAUSEA Last administered on 20:18; Admin Dose 10 MG; Start 04/22/17 at 21:00 Enoxaparin Sodium (Lovenox) 30 mg DAILY SC Last administered on 05/11/17 09:48 ; Admin Dose 30 MG; Start 04/23/17 at 20:30 Acetaminophen (Tylenol Supp) 650 mg Q6H PRN CO FEVER GREATER THAN 100.6; Start 04/23/17 at 20:30 Acetaminophen (Tylenol Tab) 650 mg Q6H PRN PO PAIN AND OR ELEVATED TEMP Last administered on 05/11/17 03:04; Admin Dose 650 MG; Start 04/23/17 at 20:30 Lactobacillus Acidophilus/ Rhamnosus (Culturelle) 1 cap BID PO Last administered on 05/11/17 08:51; Admin Dose 1 CAP; Start 04/24/17 at 11:30 Diagnostic Test (Pha) (Accu-Chek) 1 ea 02 XX ; Start 04/26/17 at 02:00 Docusate Sodium (Colace) 100 mg BID PO Last administered on 05/11/17 08:51; Admin Dose 100 MG; Start 04/30/17 at 21:00 Potassium Chloride (Klor-Con 20) 20 meq BID PO Last administered on 05/11/17 08:51; Admin Dose 20 MEQ; Start 05/04/17 at 21:00 Nalbuphine HCl (Nubain) 10 mg Q4H PRN IV PRURITUS; Start 05/07/17 at 13:30 Ondansetron HCl (Zofran Inj) 4 mg Q6H PRN IV NAUSEA AND/OR VOMITING; Start 05/07/17 at 13:30 Metoprolol Tartrate (Lopressor) 25 mg BID PO Last administered on 05/11/17 08: 51; Admin Dose 25 MG; Start 05/08/17 at 14:00 NGOC GARZA MD May 11, 2017 17:07
--- NOTE | 2017-05-11 17:38 | PN ---
DATE: 05/11/2017 SUBJECTIVE: No complaint. No nausea, no vomiting, no abdominal pain, minimal chest pain, has been passing gas. Tolerating low calorie diet. No bowel movement today. OBJECTIVE GENERAL: Awake, alert, oriented x3. Today is postop day #4, operation VATS on the right side. VITAL SIGNS: Temperature 98.1, heart rate 86 regular, respirations 16, blood pressure 114/64, satur ation 99% on 2 liters nasal cannula. LABORATORY DATA: WBC 9200 with 62% segmented, hemoglobin 10.1, hematocrit 30.6. Chemistry: Sodium , potassium, BUN, creatinine within normal limits. Chest tube drainage 64 mL. Pigtail drainage 0. HEART: Regular. LUNGS: Clear. ABDOMEN: Soft. ASSESSMENT AND PLAN: A 66-year-old female who presented with abdominal pain, diagnosed with a liver abscess. Liver abscess was drained 3 times with 3 pigtails conservatively. Eventually, last CT sc an showed that it was much shrunken except that there were 2 new loculation present and they were no t amenable to drainage percutaneously, therefore we are hoping that they are going to resolve by con tinuous antibiotic treatment. Infectious disease has recommended 6 weeks of antibiotic treatment. Chest tube is draining 64 mL serosanguineous. This is after doing decortication on 05/07/2017. PLAN: Continue current care. Removal of the chest tube per Dr. Jackson. We will repeat CT scan of the abdomen this week to evaluate the status of the liver abscess. Dictated By: JOHN JUSTIN/KT Conf#: [id number] DID#: [id number]
--- NOTE | 2017-05-11 17:45 | CONS ---
Date/Time of Note Date/Time of Note DATE: 05/11/17 TIME: 17:40 Assessment/Plan Assessment/Plan Chief Complaint/Hosp Course IMP: 1.Hypotension-Now hypertensive 2.abnl ecg-negative trop x 3/NL EF by echo. NO CP 3.Liver abscess s/p CT guided drainage 4.H/O lung ca s/p resection with lung nodules by CT? 5.Lung nodules 6. Hyponatremia 7. Effusion s/p VATS/decortication Recc: -Now back on tele s/p VATS/decortication -Continue abx's -F/U cx data -Contineu BB -pain control -Continue lasix daily and follow volume status clsoely Problems: Consultation Date/Type/Reason Admit Date/Time Apr 13, 2017 at 19:51 Initial Consult Date 04/13/17 Type of Consultation: Cardiology Reason for Consultation chest pain Referring Provider: DARREL BURT MD Exam/Review of Systems Vital Signs Vitals Vital Signs Date Time Temp Pulse Resp B/P Pulse Ox O2 Delivery O2 Flow Rate FiO2 05/11/17 16:29 86 05/11/17 15:44 3.0 05/11/17 15:20 98.1 16 114/64 99 05/10/17 00:00 Nasal Cannula 05/08/17 04:21 27 Intake and Output 05/10/17 05/10/17 05/11/17 15:00 23:00 07:00 Intake Total 300 ml 380 ml Output Total 964 ml 1600 ml Balance -664 ml -1220 ml Exam Review of Systems: CONSTITUTIONAL: No fevers, chills. PULMONARY: No sob CARDIOVASCULAR: No chest pain/palpitations GASTROINTESTINAL: No nausea/vomiting. GENITOURINARY: No hematuria/dysuria. MUSCULOSKELETAL: No myagias/arthalgias. PSYCHIATRIC: The patient denies depression. NEUROLOGIC: No weakness Constitutional: alert Psych: no complaints Head: normocephalic ENMT: mucosa pink and moist Respiratory: diminished breath sounds (at bases/B) Cardiovascular: other (CT in place), regular rate and rhythm Gastrointestinal: non-tender, soft Musculoskeletal: muscle tone (normal) Extremities: edema (none) 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: other (No focal deficits) Results Result Diagram: 05/11/17 0506 05/11/17 0506 Results 24 hrs Laboratory Tests Test 05/10/17 21:19 05/11/17 05:06 05/11/17 07:47 05/11/17 11:43 Bedside Glucose 130 114 210 White Blood Count 9.2 Red Blood Count 3.36 L Hemoglobin 10.1 L Hematocrit 30.6 L Mean Corpuscular Volume 91.1 Mean Corpuscular Hemoglobin 30.1 Mean Corpuscular Hemoglobin Concent 33.0 Red Cell Distribution Width 14.0 Platelet Count 430 H Mean Platelet Volume 8.3 Neutrophils % 62.0 Lymphocytes % 24.4 Monocytes % 10.6 Eosinophils % 1.7 Basophils % 0.4 Nucleated Red Blood Cells % 0.0 Neutrophils # 5.7 Lymphocytes # 2.3 Monocytes # 1.0 H Eosinophils # 0.2 Basophils # 0.0 Nucleated Red Blood Cells # 0.0 Sodium Level 134 L Potassium Level 4.2 Chloride Level 98 Carbon Dioxide Level 31 Anion Gap 9 Blood Urea Nitrogen 9 Creatinine 0.32 L Glucose Level 120 Calcium Level 8.8 Test 05/11/17 16:56 Bedside Glucose 136 Medications Medications Current Medications Miscellaneous Information 1 ea NOTE XX ; Start 04/13/17 at 21:30 Glucose (Glutose) 15 gm Q15M PRN PO DECREASED GLUCOSE; Start 04/13/17 at 21:30 Glucose (Glutose) 22.5 gm Q15M PRN PO DECREASED GLUCOSE; Start 04/13/17 at 21: 30 Dextrose (D50w Syringe) 25 ml Q15M PRN IV DECREASED GLUCOSE; Start 04/13/17 at 21:30 Dextrose (D50w Syringe) 50 ml Q15M PRN IV DECREASED GLUCOSE; Start 04/13/17 at 21:30 Glucagon (Glucagen) 1 mg Q15M PRN IM DECREASED GLUCOSE; Start 04/13/17 at 21:30 Glucose (Glutose) 15 gm Q15M PRN BUCCAL DECREASED GLUCOSE; Start 04/13/17 at 21 :30 Ondansetron HCl (Zofran Inj) 4 mg Q6 PRN IV NAUSEA AND/OR VOMITING Last administered on 04/26/17 20:25; Admin Dose 4 MG; Start 04/13/17 at 21:30 Guaifenesin/ Dextromethorphan (Robitussin Dm Liquid Cup) 5 ml Q4H PRN PO COUGH Last administered on 04/19/17 05:09; Admin Dose 5 ML; Start 04/15/17 at 16:30 Pantoprazole (Protonix Tab) 40 mg DAILY@06 PO Last administered on 05/11/17 05 :35; Admin Dose 40 MG; Start 04/17/17 at 06:00 Acetaminophen (Tylenol Tab) 500 mg Q6H PRN PO PAIN AND OR ELEVATED TEMP Last administered on 05/06/17 03:25; Admin Dose 500 MG; Start 04/17/17 at 03:00 Magnesium Hydroxide 30 ml 30 ml DAILY PRN PO CONSTIPATION Last administered on 04/28/17 18:33; Admin Dose 30 ML; Start 04/17/17 at 11:30 Ampicillin Sodium/ Sulbactam Sodium (Unasyn 1.5gm/NS (Pmx)) 50 ml @ 100 mls/hr Q6 IVPB Last administered on 05/11/17 17:00; Admin Dose 100 MLS/HR; Start at 18:00 Fentanyl (Duragesic 12 Mcg/Hr Patch) 1 patch Q72H TRANSDERM Last administered on 05/10/17 07:54; Admin Dose 1 PATCH; Start 04/22/17 at 05:30 Morphine Sulfate (morphine) 1 mg Q4H PRN IV SEVERE PAIN LEVEL 7-10 Last administered on 05/08/17 02:30; Admin Dose 1 MG; Start 04/22/17 at 17:30 Metoclopramide HCl (Reglan) 10 mg Q6H PRN IV NAUSEA Last administered on 20:18; Admin Dose 10 MG; Start 04/22/17 at 21:00 Enoxaparin Sodium (Lovenox) 30 mg DAILY SC Last administered on 05/11/17 09:48 ; Admin Dose 30 MG; Start 04/23/17 at 20:30 Acetaminophen (Tylenol Supp) 650 mg Q6H PRN [place] FEVER GREATER THAN 100.6; Start 04/23/17 at 20:30 Acetaminophen (Tylenol Tab) 650 mg Q6H PRN PO PAIN AND OR ELEVATED TEMP Last administered on 05/11/17 03:04; Admin Dose 650 MG; Start 04/23/17 at 20:30 Lactobacillus Acidophilus/ Rhamnosus (Culturelle) 1 cap BID PO Last administered on 05/11/17 08:51; Admin Dose 1 CAP; Start 04/24/17 at 11:30 Diagnostic Test (Pha) (Accu-Chek) 1 ea 02 XX ; Start 04/26/17 at 02:00 Docusate Sodium (Colace) 100 mg BID PO Last administered on 05/11/17 08:51; Admin Dose 100 MG; Start 04/30/17 at 21:00 Potassium Chloride (Klor-Con 20) 20 meq BID PO Last administered on 05/11/17 08:51; Admin Dose 20 MEQ; Start 05/04/17 at 21:00 Nalbuphine HCl (Nubain) 10 mg Q4H PRN IV PRURITUS; Start 05/07/17 at 13:30 Ondansetron HCl (Zofran Inj) 4 mg Q6H PRN IV NAUSEA AND/OR VOMITING; Start 05/07/17 at 13:30 Metoprolol Tartrate (Lopressor) 25 mg BID PO Last administered on 05/11/17 08: 51; Admin Dose 25 MG; Start 05/08/17 at 14:00 LILIANA BARKSDALE May 11, 2017 17:45
[2017-05-12] VITALS (12 sets, daily range): BP systolic 109–135; BP diastolic 62–77; PULSE 80–92; RESP 17–19
[2017-05-12] MEDS: AMPICILLIN/SULB 1.5GM/NS (PMX) 50 ML IVPB SCH ×4 (00:32→17:02)
[2017-05-12] MEDS: ACCU-CHEK XX SCH (02:00)
[2017-05-12] MEDS: ACETAMINOPHEN 325 MG TAB PO PRN ×2 (04:49→15:00)
[2017-05-12] MEDS: PANTOPRAZOLE (EC) 40 MG TAB PO SCH (06:30)
[2017-05-12] MEDS: FUROSEMIDE 20 MG TAB PO SCH ×2 (06:35→17:04)
[2017-05-12 08:26] LABS: BASOPHIL # 0.1 10^3/ul (0.0-0.1); BASOPHILS % 0.5 % (0.0-2.0); EOSINOPHILS # 0.2 10^3/ul (0.0-0.5); EOSINOPHILS % 1.6 % (0.0-7.0); HEMATOCRIT 31.9 % (37.0-47.0); HEMOGLOBIN 10.1 g/dl (12.0-16.0); LYMPHOCYTES # 2.3 10^3/ul (0.8-2.9); MEAN CORPUSCULAR HEMOGLOBIN 29.5 pg (29.0-33.0); MEAN CORPUSCULAR HGB CONC 31.7 g/dl (32.0-37.0); MEAN CORPUSCULAR VOLUME 93.3 fl (82.0-101.0); MEAN PLATELET VOLUME 8.3 fl (7.4-10.4); MONOCYTES % 10.9 % (0.0-11.0); NEUTROPHIL # 5.6 10^3/ul (1.6-7.5); NEUTROPHILS % 61.3 % (39.0-77.0); PLATELET COUNT 447 10^3/UL (140-415); RED BLOOD COUNT 3.42 10^6/ul (4.20-5.40); RED CELL DISTRIBUTION WIDTH 14.1 % (11.5-14.5); WHITE BLOOD COUNT 9.2 10^3/ul (4.8-10.8)
[2017-05-12 08:54] LABS: CALCIUM 9.4 mg/dl (8.4-10.2); CREATININE 0.42 mg/dl (0.44-1.00); POTASSIUM 4.7 mmol/L (3.5-5.1)
--- NOTE | 2017-05-12 09:06 | CONS ---
Date/Time of Note Date/Time of Note DATE: 05/12/17 TIME: 09:04 Assessment/Plan Assessment/Plan Additional Assessment/Plan 1.Hypotension-Now hypertensive - better BP overall, will adjust rx as needed. 2.abnl ecg-negative trop x 3/NL EF by echo. NO CP - doubt ischemia. 3.Liver abscess s/p CT guided drainage - better now, Teated with anti-bx. 4.H/O lung ca s/p resection with lung nodules by CT - now with VTS. 5.Lung nodules 6. Hyponatremia 7. Effusion s/p VATS/decortication - tolerated procedure, con't tp recover slowly. Consultation Date/Type/Reason Admit Date/Time Apr 13, 2017 at 19:51 Initial Consult Date 04/13/17 Type of Consultation: Cardiology Referring Provider: DARREL BURT MD 24 HR Interval Summary Free Text/Dictation NO acute events - no focal ectopy on tele. ROS: No fever, no chills, no nausea, no vomiting, no diarrhea/constipation No recent weight changes No chest pain, no PND, no orthopnea No dizziness, blurred vision No thirst, no heat or cold intolerance Exam/Review of Systems Vital Signs Vitals Vital Signs Date Time Temp Pulse Resp B/P Pulse Ox O2 Delivery O2 Flow Rate FiO2 05/12/17 08:00 83 05/12/17 07:44 98.2 17 115/76 98 05/11/17 21:50 3.0 05/10/17 00:00 Nasal Cannula Intake and Output 05/11/17 05/11/17 05/12/17 14:59 22:59 06:59 Intake Total 580 ml 100 ml Output Total 1110 ml 55 ml Balance -530 ml 45 ml Exam General: WN/WD/NAD, AOx 3 HEENT: Unicetric/atraumatic/EOMI (follow commands) NECK: JVD elevated, no thyromegaly Lymph: no lymphadenopathy HEART: regular with no S3, II/ systolic murmur at apex LUNGS: Coarse sounds, VATS ABD: soft, NT, ND, +BS : Intact Neuro: non focal SKIN: chronic changes EXT: trace edema Results Result Diagram: 05/12/17 0738 05/12/17 0738 Results 24 hrs Laboratory Tests Test 05/11/17 11:43 05/11/17 16:56 10/9/17 21:11 05/12/17 07:38 Bedside Glucose 210 136 120 White Blood Count 9.2 Red Blood Count 3.42 L Hemoglobin 10.1 L Hematocrit 31.9 L Mean Corpuscular Volume 93.3 Mean Corpuscular Hemoglobin 29.5 Mean Corpuscular Hemoglobin Concent 31.7 L Red Cell Distribution Width 14.1 Platelet Count 447 H Mean Platelet Volume 8.3 Neutrophils % 61.3 Lymphocytes % 25.0 Monocytes % 10.9 Eosinophils % 1.6 Basophils % 0.5 Nucleated Red Blood Cells % 0.0 Neutrophils # 5.6 Lymphocytes # 2.3 Monocytes # 1.0 H Eosinophils # 0.2 Basophils # 0.1 Nucleated Red Blood Cells # 0.0 Sodium Level 136 Potassium Level 4.7 Chloride Level 97 Carbon Dioxide Level 34 H Anion Gap 10 Blood Urea Nitrogen 9 Creatinine 0.42 L Glucose Level 115 Calcium Level 9.4 Test 05/12/17 07:50 Bedside Glucose 130 Medications Medications Current Medications Miscellaneous Information 1 ea NOTE XX ; Start 04/13/17 at 21:30 Glucose (Glutose) 15 gm Q15M PRN PO DECREASED GLUCOSE; Start 04/13/17 at 21:30 Glucose (Glutose) 22.5 gm Q15M PRN PO DECREASED GLUCOSE; Start 04/13/17 at 21: 30 Dextrose (D50w Syringe) 25 ml Q15M PRN IV DECREASED GLUCOSE; Start 04/13/17 at 21:30 Dextrose (D50w Syringe) 50 ml Q15M PRN IV DECREASED GLUCOSE; Start 04/13/17 at 21:30 Glucagon (Glucagen) 1 mg Q15M PRN IM DECREASED GLUCOSE; Start 04/13/17 at 21:30 Glucose (Glutose) 15 gm Q15M PRN BUCCAL DECREASED GLUCOSE; Start 04/13/17 at 21 :30 Ondansetron HCl (Zofran Inj) 4 mg Q6 PRN IV NAUSEA AND/OR VOMITING Last administered on 04/26/17 20:25; Admin Dose 4 MG; Start 04/13/17 at 21:30 Guaifenesin/ Dextromethorphan (Robitussin Dm Liquid Cup) 5 ml Q4H PRN PO COUGH Last administered on 04/19/17 05:09; Admin Dose 5 ML; Start 04/15/17 at 16:30 Pantoprazole (Protonix Tab) 40 mg DAILY@06 PO Last administered on 05/12/17 06:30; Admin Dose 40 MG; Start 04/17/17 at 06:00 Acetaminophen (Tylenol Tab) 500 mg Q6H PRN PO PAIN AND OR ELEVATED TEMP Last administered on 05/06/17 03:25; Admin Dose 500 MG; Start 04/17/17 at 03:00 Magnesium Hydroxide 30 ml 30 ml DAILY PRN PO CONSTIPATION Last administered on 04/28/17 18:33; Admin Dose 30 ML; Start 04/17/17 at 11:30 Ampicillin Sodium/ Sulbactam Sodium (Unasyn 1.5gm/NS (Pmx)) 50 ml @ 100 mls/hr Q6 IVPB Last administered on 05/12/17 06:30; Admin Dose 100 MLS/HR; Start at 18:00 Fentanyl (Duragesic 12 Mcg/Hr Patch) 1 patch Q72H TRANSDERM Last administered on 05/10/17 07:54; Admin Dose 1 PATCH; Start 04/22/17 at 05:30 Morphine Sulfate (morphine) 1 mg Q4H PRN IV SEVERE PAIN LEVEL 7-10 Last administered on 05/08/17 02:30; Admin Dose 1 MG; Start 04/22/17 at 17:30 Metoclopramide HCl (Reglan) 10 mg Q6H PRN IV NAUSEA Last administered on 20:18; Admin Dose 10 MG; Start 04/22/17 at 21:00 Enoxaparin Sodium (Lovenox) 30 mg DAILY SC Last administered on 05/11/17 09:48 ; Admin Dose 30 MG; Start 04/23/17 at 20:30 Acetaminophen (Tylenol Supp) 650 mg Q6H PRN [place] FEVER GREATER THAN 100.6; Start 04/23/17 at 20:30 Acetaminophen (Tylenol Tab) 650 mg Q6H PRN PO PAIN AND OR ELEVATED TEMP Last administered on 05/12/17 04:49; Admin Dose 650 MG; Start 04/23/17 at 20:30 Lactobacillus Acidophilus/ Rhamnosus (Culturelle) 1 cap BID PO Last administered on 05/11/17 21:00; Admin Dose 1 CAP; Start 04/24/17 at 11:30 Diagnostic Test (Pha) (Accu-Chek) 1 ea 02 XX ; Start 04/26/17 at 02:00 Docusate Sodium (Colace) 100 mg BID PO Last administered on 05/11/17 21:00; Admin Dose 100 MG; Start 04/30/17 at 21:00 Potassium Chloride (Klor-Con 20) 20 meq BID PO Last administered on 05/11/17 21:01; Admin Dose 20 MEQ; Start 05/04/17 at 21:00 Nalbuphine HCl (Nubain) 10 mg Q4H PRN IV PRURITUS; Start 05/07/17 at 13:30 Ondansetron HCl (Zofran Inj) 4 mg Q6H PRN IV NAUSEA AND/OR VOMITING; Start 05/07/17 at 13:30 Metoprolol Tartrate (Lopressor) 25 mg BID PO Last administered on 05/11/17 21: 00; Admin Dose 25 MG; Start 05/08/17 at 14:00 JAIME BULLARD MD May 12, 2017 09:06
[2017-05-12] MEDS: Insulin NOVOLOG SS MILD Algorithm (SS with meals and bedtime) SC SCH ×4 (09:09→21:00)
[2017-05-12] MEDS: METOPROLOL 25 MG TAB PO SCH ×2 (09:10→22:01)
[2017-05-12] MEDS: LACTOBACILLUS RHAMNOSUS CAP PO SCH ×2 (09:11→22:05)
[2017-05-12] MEDS: DOCUSATE SODIUM 100 MG CAP PO SCH ×2 (09:11→22:00)
[2017-05-12] MEDS: POTASSIUM CHLORIDE (SR) 20 MEQ TAB PO SCH ×2 (09:11→22:01)
[2017-05-12] MEDS: ENOXAPARIN 30 MG/0.3 ML SYG SC SCH (09:15)
--- NOTE | 2017-05-12 09:52 | RADRPT ---
PROCEDURE: XR Chest. CLINICAL INDICATION: Shortness of breath TECHNIQUE: Single portable view of the chest was obtained COMPARISON: May 09, 2017 FINDINGS: The trachea is deviate towards the right. The cardiac silhouette and pulmonary vascularity are withi n normal limits. Right-sided volume loss and right-sided opacification of of the right-sided pleural effusion is noted. There is continued improved aeration of the right lung. An overlying right-sided chest tube is noted. Right chest wall surgical skin betty are noted. IMPRESSION: 1. Right-sided volume loss. There are unchanged 2 right-sided chest tubes. There is a right apical l ucency, new since prior exam dated May 05, 2017. There is also tracheal deviation for the right. Query if there is history of recent lobectomy, otherwise cannot exclude the possibility of pneumotho rax. Possible nonfunctioning chest tubes. Recommend follow-up CT scan of the chest if clinically ind icated. 2. There are unchanged 2 right-sided chest tubes. Improved aeration of the right lung is noted. Pers istent right-sided infiltrates and right-sided pleural effusion. 3. Right upper quadrant surgical skin betty and pigtail drainage catheter with overlying right upp er quadrant. RPTAT: AARR Physician Zafar Date Time Electronically viewed and signed by Physician Zafar on 05/12/2017 09:52 FLOR/
--- NOTE | 2017-05-12 14:40 | CONS ---
Date/Time of Note Date/Time of Note DATE: 05/12/17 TIME: 14:38 Assessment/Plan Assessment/Plan Additional Assessment/Plan Chest x-ray was reviewed which is showing improved aeration of the right lung. Assessment and recommendations; 1. Patient admitted with hepatic abscess then developed extensive right-sided pneumonia requiring a VATS procedure with significant clinical and radiological improvement. Continue current treatment. Chest tube to be removed shortly. Consultation Date/Type/Reason Admit Date/Time Apr 13, 2017 at 19:51 Initial Consult Date 04/15/17 Type of Consultation: Pulmonary Referring Provider: DARREL BURT MD 24 HR Interval Summary Free Text/Dictation Patient's condition is stable. Denies any shortness of breath, chest pain. General exam; elderly woman, awake alert currently in no distress. Exam/Review of Systems Vital Signs Vitals Vital Signs Date Time Temp Pulse Resp B/P Pulse Ox O2 Delivery O2 Flow Rate FiO2 05/12/17 12:00 85 05/12/17 11:35 97.9 17 109/62 98 05/11/17 21:50 3.0 05/10/17 00:00 Nasal Cannula Intake and Output 05/11/17 05/11/17 05/12/17 15:00 23:00 07:00 Intake Total 580 ml 100 ml Output Total 1110 ml 55 ml Balance -530 ml 45 ml Exam HEENT exam; supple neck, no JVD. No lymphadenopathy. Midline trachea. No thyromegaly. Pharynx is clear. Patient does have multiple carious teeth. Chest exam; diminished breath sounds right lung. Right-sided chest tube in place. Left lung is clear to auscultation. S1-S2 audible, no murmurs. Regular rhythm. Abdomen exam; soft, nontender. No organomegaly. Bowel sounds audible. Extremity exam; no peripheral edema. No clubbing. CENTER DIRECTOR exam; no focal deficit. Results Result Diagram: 05/12/17 0738 05/12/17 0738 Results 24 hrs Laboratory Tests Test 05/11/17 16:56 05/11/17 21:11 05/12/17 07:38 05/12/17 07:50 Bedside Glucose 136 120 130 White Blood Count 9.2 Red Blood Count 3.42 L Hemoglobin 10.1 L Hematocrit 31.9 L Mean Corpuscular Volume 93.3 Mean Corpuscular Hemoglobin 29.5 Mean Corpuscular Hemoglobin Concent 31.7 L Red Cell Distribution Width 14.1 Platelet Count 447 H Mean Platelet Volume 8.3 Neutrophils % 61.3 Lymphocytes % 25.0 Monocytes % 10.9 Eosinophils % 1.6 Basophils % 0.5 Nucleated Red Blood Cells % 0.0 Neutrophils # 5.6 Lymphocytes # 2.3 Monocytes # 1.0 H Eosinophils # 0.2 Basophils # 0.1 Nucleated Red Blood Cells # 0.0 Sodium Level 136 Potassium Level 4.7 Chloride Level 97 Carbon Dioxide Level 34 H Anion Gap 10 Blood Urea Nitrogen 9 Creatinine 0.42 L Glucose Level 115 Calcium Level 9.4 Test 05/12/17 11:51 Bedside Glucose 132 Medications Medications Current Medications Miscellaneous Information 1 ea NOTE XX ; Start 04/13/17 at 21:30 Glucose (Glutose) 15 gm Q15M PRN PO DECREASED GLUCOSE; Start 04/13/17 at 21:30 Glucose (Glutose) 22.5 gm Q15M PRN PO DECREASED GLUCOSE; Start 04/13/17 at 21: 30 Dextrose (D50w Syringe) 25 ml Q15M PRN IV DECREASED GLUCOSE; Start 04/13/17 at 21:30 Dextrose (D50w Syringe) 50 ml Q15M PRN IV DECREASED GLUCOSE; Start 04/13/17 at 21:30 Glucagon (Glucagen) 1 mg Q15M PRN IM DECREASED GLUCOSE; Start 04/13/17 at 21:30 Glucose (Glutose) 15 gm Q15M PRN BUCCAL DECREASED GLUCOSE; Start 04/13/17 at 21 :30 Ondansetron HCl (Zofran Inj) 4 mg Q6 PRN IV NAUSEA AND/OR VOMITING Last administered on 04/26/17 20:25; Admin Dose 4 MG; Start 04/13/17 at 21:30 Guaifenesin/ Dextromethorphan (Robitussin Dm Liquid Cup) 5 ml Q4H PRN PO COUGH Last administered on 04/19/17 05:09; Admin Dose 5 ML; Start 04/15/17 at 16:30 Pantoprazole (Protonix Tab) 40 mg DAILY@06 PO Last administered on 05/12/17 06:30; Admin Dose 40 MG; Start 04/17/17 at 06:00 Acetaminophen (Tylenol Tab) 500 mg Q6H PRN PO PAIN AND OR ELEVATED TEMP Last administered on 05/06/17 03:25; Admin Dose 500 MG; Start 04/17/17 at 03:00 Magnesium Hydroxide 30 ml 30 ml DAILY PRN PO CONSTIPATION Last administered on 04/28/17 18:33; Admin Dose 30 ML; Start 04/17/17 at 11:30 Ampicillin Sodium/ Sulbactam Sodium (Unasyn 1.5gm/NS (Pmx)) 50 ml @ 100 mls/hr Q6 IVPB Last administered on 05/12/17 13:03; Admin Dose 100 MLS/HR; Start at 18:00 Fentanyl (Duragesic 12 Mcg/Hr Patch) 1 patch Q72H TRANSDERM Last administered on 05/10/17 07:54; Admin Dose 1 PATCH; Start 04/22/17 at 05:30 Morphine Sulfate (morphine) 1 mg Q4H PRN IV SEVERE PAIN LEVEL 7-10 Last administered on 05/08/17 02:30; Admin Dose 1 MG; Start 04/22/17 at 17:30 Metoclopramide HCl (Reglan) 10 mg Q6H PRN IV NAUSEA Last administered on 20:18; Admin Dose 10 MG; Start 04/22/17 at 21:00 Enoxaparin Sodium (Lovenox) 30 mg DAILY SC Last administered on 05/12/17 09: 15; Admin Dose 30 MG; Start 04/23/17 at 20:30 Acetaminophen (Tylenol Supp) 650 mg Q6H PRN [place] FEVER GREATER THAN 100.6; Start 04/23/17 at 20:30 Acetaminophen (Tylenol Tab) 650 mg Q6H PRN PO PAIN AND OR ELEVATED TEMP Last administered on 05/12/17 04:49; Admin Dose 650 MG; Start 04/23/17 at 20:30 Lactobacillus Acidophilus/ Rhamnosus (Culturelle) 1 cap BID PO Last administered on 05/12/17 09:11; Admin Dose 1 CAP; Start 04/24/17 at 11:30 Diagnostic Test (Pha) (Accu-Chek) 1 ea 02 XX ; Start 04/26/17 at 02:00 Docusate Sodium (Colace) 100 mg BID PO Last administered on 05/12/17 09:11; Admin Dose 100 MG; Start 04/30/17 at 21:00 Potassium Chloride (Klor-Con 20) 20 meq BID PO Last administered on 05/12/17 09:11; Admin Dose 20 MEQ; Start 05/04/17 at 21:00 Nalbuphine HCl (Nubain) 10 mg Q4H PRN IV PRURITUS; Start 05/07/17 at 13:30 Ondansetron HCl (Zofran Inj) 4 mg Q6H PRN IV NAUSEA AND/OR VOMITING; Start 05/07/17 at 13:30 Metoprolol Tartrate (Lopressor) 25 mg BID PO Last administered on 05/12/17 09 :10; Admin Dose 25 MG; Start 05/08/17 at 14:00 LINDA GARCIA May 12, 2017 14:40
--- NOTE | 2017-05-12 17:03 | PN ---
Date/Time of Note Date/Time of Note DATE: 05/12/17 TIME: 17:01 Assessment/Plan VTE Prophylaxis VTE Prophylaxis Intervention: SCD's Lines/Catheters [facility] Peripheral IV Urinary Cath still in place: Yes Reason Cath still needed: urinary retention Assessment/Plan Chief Complaint/Hosp Course Patient is status post chest tube removal today, complains of mild incisional pain, able on supplemental oxygen. plan for CT of the abdomen for evaluation of liver abscess this week. Assessment/Plan - Bilateral pleural effusions right more than left, status post right thoracentesis 04/20. S/p right chest tube insertion on 04/[address] Jackson, vascular surgery. S/p right thoracentesis 04/26. S/P Right VATS decortication on 05/07. - Acute respiratory failure secondary to #1, Dr. Damico is following in pulmonology consultation continue oxygen oxygen supplementation - Severe sepsis 2/2 to liver abscess, resolving. Continue antibiotics per ID. is following in infection disease consultation - Liver abscess unchanged per recent CT, s/p CT guided drainage 04/15/2017, s/p CT guided percutaneous drainage of liver abscess 04/23, status post CT-guided liver abscess drainage 04/27 - Normocytic anemia requiring blood transfusion - Hx of rectal CA s/p Low anterior resection 08/29/2016 Further recommendations based on clinical course. Plan of care discussed with Dr. Dior Problems: Exam/Review of Systems Vital Signs Vitals Vital Signs Date Time Temp Pulse Resp B/P Pulse Ox O2 Delivery O2 Flow Rate FiO2 05/12/17 14:58 98.5 91 18 119/73 100 05/11/17 21:50 3.0 05/10/17 00:00 Nasal Cannula Intake and Output 05/11/17 05/11/17 05/12/17 15:00 23:00 07:00 Intake Total 580 ml 100 ml Output Total 1110 ml 55 ml Balance -530 ml 45 ml Exam Constitutional: alert, oriented Neck: supple Respiratory: normal air movement Cardiovascular: nl pulses Gastrointestinal: non-tender, other (Hepatic drain), soft Extremities: normal pulses Results Result Diagram: 05/12/17 0738 05/12/17 0738 Results 24 hrs Laboratory Tests Test 05/11/17 21:11 05/12/17 07:38 05/12/17 07:50 05/12/17 11:51 Bedside Glucose 120 130 132 White Blood Count 9.2 Red Blood Count 3.42 L Hemoglobin 10.1 L Hematocrit 31.9 L Mean Corpuscular Volume 93.3 Mean Corpuscular Hemoglobin 29.5 Mean Corpuscular Hemoglobin Concent 31.7 L Red Cell Distribution Width 14.1 Platelet Count 447 H Mean Platelet Volume 8.3 Neutrophils % 61.3 Lymphocytes % 25.0 Monocytes % 10.9 Eosinophils % 1.6 Basophils % 0.5 Nucleated Red Blood Cells % 0.0 Neutrophils # 5.6 Lymphocytes # 2.3 Monocytes # 1.0 H Eosinophils # 0.2 Basophils # 0.1 Nucleated Red Blood Cells # 0.0 Sodium Level 136 Potassium Level 4.7 Chloride Level 97 Carbon Dioxide Level 34 H Anion Gap 10 Blood Urea Nitrogen 9 Creatinine 0.42 L Glucose Level 115 Calcium Level 9.4 Medications Medications Current Medications Miscellaneous Information 1 ea NOTE XX ; Start 04/13/17 at 21:30 Glucose (Glutose) 15 gm Q15M PRN PO DECREASED GLUCOSE; Start 04/13/17 at 21:30 Glucose (Glutose) 22.5 gm Q15M PRN PO DECREASED GLUCOSE; Start 04/13/17 at 21: 30 Dextrose (D50w Syringe) 25 ml Q15M PRN IV DECREASED GLUCOSE; Start 04/13/17 at 21:30 Dextrose (D50w Syringe) 50 ml Q15M PRN IV DECREASED GLUCOSE; Start 04/13/17 at 21:30 Glucagon (Glucagen) 1 mg Q15M PRN IM DECREASED GLUCOSE; Start 04/13/17 at 21:30 Glucose (Glutose) 15 gm Q15M PRN BUCCAL DECREASED GLUCOSE; Start 04/13/17 at 21 :30 Ondansetron HCl (Zofran Inj) 4 mg Q6 PRN IV NAUSEA AND/OR VOMITING Last administered on 04/26/17 20:25; Admin Dose 4 MG; Start 04/13/17 at 21:30 Guaifenesin/ Dextromethorphan (Robitussin Dm Liquid Cup) 5 ml Q4H PRN PO COUGH Last administered on 04/19/17 05:09; Admin Dose 5 ML; Start 04/15/17 at 16:30 Pantoprazole (Protonix Tab) 40 mg DAILY@06 PO Last administered on 05/12/17 06:30; Admin Dose 40 MG; Start 04/17/17 at 06:00 Acetaminophen (Tylenol Tab) 500 mg Q6H PRN PO PAIN AND OR ELEVATED TEMP Last administered on 05/06/17 03:25; Admin Dose 500 MG; Start 04/17/17 at 03:00 Magnesium Hydroxide 30 ml 30 ml DAILY PRN PO CONSTIPATION Last administered on 04/28/17 18:33; Admin Dose 30 ML; Start 04/17/17 at 11:30 Ampicillin Sodium/ Sulbactam Sodium (Unasyn 1.5gm/NS (Pmx)) 50 ml @ 100 mls/hr Q6 IVPB Last administered on 05/12/17 13:03; Admin Dose 100 MLS/HR; Start at 18:00 Fentanyl (Duragesic 12 Mcg/Hr Patch) 1 patch Q72H TRANSDERM Last administered on 05/10/17 07:54; Admin Dose 1 PATCH; Start 04/22/17 at 05:30 Morphine Sulfate (morphine) 1 mg Q4H PRN IV SEVERE PAIN LEVEL 7-10 Last administered on 05/08/17 02:30; Admin Dose 1 MG; Start 04/22/17 at 17:30 Metoclopramide HCl (Reglan) 10 mg Q6H PRN IV NAUSEA Last administered on 20:18; Admin Dose 10 MG; Start 04/22/17 at 21:00 Enoxaparin Sodium (Lovenox) 30 mg DAILY SC Last administered on 05/12/17 09: 15; Admin Dose 30 MG; Start 04/23/17 at 20:30 Acetaminophen (Tylenol Supp) 650 mg Q6H PRN [place] FEVER GREATER THAN 100.6; Start 04/23/17 at 20:30 Acetaminophen (Tylenol Tab) 650 mg Q6H PRN PO PAIN AND OR ELEVATED TEMP Last administered on 05/12/17 15:00; Admin Dose 650 MG; Start 04/23/17 at 20:30 Lactobacillus Acidophilus/ Rhamnosus (Culturelle) 1 cap BID PO Last administered on 05/12/17 09:11; Admin Dose 1 CAP; Start 04/24/17 at 11:30 Diagnostic Test (Pha) (Accu-Chek) 1 ea 02 XX ; Start 04/26/17 at 02:00 Docusate Sodium (Colace) 100 mg BID PO Last administered on 05/12/17 09:11; Admin Dose 100 MG; Start 04/30/17 at 21:00 Potassium Chloride (Klor-Con 20) 20 meq BID PO Last administered on 05/12/17 09:11; Admin Dose 20 MEQ; Start 05/04/17 at 21:00 Nalbuphine HCl (Nubain) 10 mg Q4H PRN IV PRURITUS; Start 05/07/17 at 13:30 Ondansetron HCl (Zofran Inj) 4 mg Q6H PRN IV NAUSEA AND/OR VOMITING; Start 05/07/17 at 13:30 Metoprolol Tartrate (Lopressor) 25 mg BID PO Last administered on 05/12/17 09 :10; Admin Dose 25 MG; Start 05/08/17 at 14:00 WINDY EMERY May 12, 2017 17:03
--- NOTE | 2017-05-12 17:04 | PN ---
DATE: 05/12/2017 SUBJECTIVE: No complaint. No pain, no nausea, no vomiting. Khan has been removed and she has bee n urinating. Had a bowel movement yesterday. Tolerating diet. OBJECTIVE: GENERAL: Alert, awake, oriented x3. VITAL SIGNS: Temperature 97.9, heart rate 90, respirations 17, blood pressure 109/62, saturation 98 % on 2 liters nasal cannula. LABORATORY DATA: WBC 9200 with 61% segmented, hemoglobin 10, hematocrit 31.9. Sodium, potassium, B UN, creatinine within normal limits. Chest tube drainage in the past 24 hours 65 mL. Pigtail drain age in the past 24 hours, minimal, maybe 2 mL, serosanguineous. HEART: Regular. LUNGS: Decreased breathing sound on the right side. ABDOMEN: Soft. IMAGING: Chest x-ray was done today. The report is as follows: 1. Right-sided volume loss, there are unchanged. 2. Right-sided chest tubes. There is a right periapical lucency, newest since prior exam dated 10/2016. There is also tracheal deviation for the right. Query if there is history of recent lobec gonzález, otherwise cannot exclude the possibility of pneumothorax. Possible nonfunctioning just use. Recommend followup CT scan of the chest if clinically indicated. 3. There are unchanged 2 right-sided chest tubes, improved aeration of the right lung is noted. Pe rsistent right-sided infiltrates and right-sided pleural effusion. 4. Right upper quadrant surgical skin betty and PK drainage catheter with overlying right upper q uadrant. ASSESSMENT AND PLAN: A 66-year-old female who presented with sepsis and was found to have a liver a bscess. The liver abscess was drained 3 times, insertion of 3 drains. Most of the abscess has been cleared. Meanwhile, the patient developed pleural effusion which was drained 2 times, percutaneous drainage and thoracentesis but there was more loculation eventually. Decortication was done 4 days ago. Chest tube still is there. Pigtail has remained in the liver abscess cavity. There is nothi ng draining that much in the past several days. We are going to repeat CT scan tomorrow or on day to evaluate the condition of the liver abscess cavities. Dictated By: JOHN BURGOS MD PS/KT Conf#: [id number] [facility]#: [id number]
--- NOTE | 2017-05-12 17:34 | CONS ---
Date/Time of Note Date/Time of Note DATE: 05/12/17 TIME: 17:31 Assessment/Plan Assessment/Plan Chief Complaint/Hosp Course Problems: Additional Assessment/Plan 1. Bilateral pleural effusions right more than left, status post right thoracentesis 04/20. S/p right chest tube insertion on 04/[address] Jackson, vascular surgery. S/p right thoracentesis 04/26. - s/p Right VATS decortication 05/07/2017 2. Acute hyponatremia 2/2 Hypovolemic hyponatremia - Resolved 2. sepsis due to liver abscess 3. Hepatic abscess oN CT scan s/p CT guided drainage on 04/15/17 and 04/23/17 4. Acute transaminitis 5. h/o Colon CA s/p previous Surgery 6. Hypokalemia 7. acute resp failiue due to # 1 8. hypomagnesemia Plan : S/p Right VATS decortication, chest tube discontinued CXR much improved after surgery, small pleural effusion , HCO3 34- conitnue lasix 20mg pO BID IV abx as per ID, renally dose all abx pulmonary ID and G surgery has been following on patient. plan for CT abdomen tomorrow to better evaluate right liver drain will follow up Consultation Date/Type/Reason Admit Date/Time Apr 13, 2017 at 19:51 Initial Consult Date 04/13/17 Type of Consultation: NEPHROLOGY Referring Provider: DARREL BURT MD 24 HR Interval Summary Free Text/Dictation no drain outptu from liver drain, plan for CT tomorrow , chest tube discontinued Exam/Review of Systems Vital Signs Vitals Vital Signs Date Time Temp Pulse Resp B/P Pulse Ox O2 Delivery O2 Flow Rate FiO2 05/12/17 16:00 92 05/12/17 14:58 98.5 18 119/73 100 05/11/17 21:50 3.0 05/10/17 00:00 Nasal Cannula Intake and Output 05/11/17 05/11/17 05/12/17 15:00 23:00 07:00 Intake Total 580 ml 100 ml Output Total 1110 ml 55 ml Balance -530 ml 45 ml Exam Constitutional: alert, frail, oriented Respiratory: diminished breath sounds, other (right chest tube) Cardiovascular: nl pulses, regular rate and rhythm Musculoskeletal: nl extremities to inspection Extremities: No edema 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: BUSINESS ANALYTICS DIRECTOR II-XII intact, 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 + RUQ liver drain Results Result Diagram: 05/12/17 0738 05/12/17 0738 Results 24 hrs Laboratory Tests Test 05/11/17 21:11 05/12/17 07:38 05/12/17 07:50 05/12/17 11:51 Bedside Glucose 120 130 132 White Blood Count 9.2 Red Blood Count 3.42 L Hemoglobin 10.1 L Hematocrit 31.9 L Mean Corpuscular Volume 93.3 Mean Corpuscular Hemoglobin 29.5 Mean Corpuscular Hemoglobin Concent 31.7 L Red Cell Distribution Width 14.1 Platelet Count 447 H Mean Platelet Volume 8.3 Neutrophils % 61.3 Lymphocytes % 25.0 Monocytes % 10.9 Eosinophils % 1.6 Basophils % 0.5 Nucleated Red Blood Cells % 0.0 Neutrophils # 5.6 Lymphocytes # 2.3 Monocytes # 1.0 H Eosinophils # 0.2 Basophils # 0.1 Nucleated Red Blood Cells # 0.0 Sodium Level 136 Potassium Level 4.7 Chloride Level 97 Carbon Dioxide Level 34 H Anion Gap 10 Blood Urea Nitrogen 9 Creatinine 0.42 L Glucose Level 115 Calcium Level 9.4 Test 05/12/17 16:57 Bedside Glucose 140 Medications Medications Current Medications Miscellaneous Information 1 ea NOTE XX ; Start 04/13/17 at 21:30 Glucose (Glutose) 15 gm Q15M PRN PO DECREASED GLUCOSE; Start 04/13/17 at 21:30 Glucose (Glutose) 22.5 gm Q15M PRN PO DECREASED GLUCOSE; Start 04/13/17 at 21: 30 Dextrose (D50w Syringe) 25 ml Q15M PRN IV DECREASED GLUCOSE; Start 04/13/17 at 21:30 Dextrose (D50w Syringe) 50 ml Q15M PRN IV DECREASED GLUCOSE; Start 04/13/17 at 21:30 Glucagon (Glucagen) 1 mg Q15M PRN IM DECREASED GLUCOSE; Start 04/13/17 at 21:30 Glucose (Glutose) 15 gm Q15M PRN BUCCAL DECREASED GLUCOSE; Start 04/13/17 at 21 :30 Ondansetron HCl (Zofran Inj) 4 mg Q6 PRN IV NAUSEA AND/OR VOMITING Last administered on 04/26/17t 20:25; Admin Dose 4 MG; Start 04/13/17 at 21:30 Guaifenesin/ Dextromethorphan (Robitussin Dm Liquid Cup) 5 ml Q4H PRN PO COUGH Last administered on 04/19/17 05:09; Admin Dose 5 ML; Start 04/15/17 at 16:30 Pantoprazole (Protonix Tab) 40 mg DAILY@06 PO Last administered on 05/12/17 06:30; Admin Dose 40 MG; Start 04/17/17 at 06:00 Acetaminophen (Tylenol Tab) 500 mg Q6H PRN PO PAIN AND OR ELEVATED TEMP Last administered on 05/06/17 03:25; Admin Dose 500 MG; Start 04/17/17 at 03:00 Magnesium Hydroxide 30 ml 30 ml DAILY PRN PO CONSTIPATION Last administered on 04/28/17 18:33; Admin Dose 30 ML; Start 04/17/17 at 11:30 Ampicillin Sodium/ Sulbactam Sodium (Unasyn 1.5gm/NS (Pmx)) 50 ml @ 100 mls/hr Q6 IVPB Last administered on 05/12/17 17:02; Admin Dose 100 MLS/HR; Start at 18:00 Fentanyl (Duragesic 12 Mcg/Hr Patch) 1 patch Q72H TRANSDERM Last administered on 05/10/17 07:54; Admin Dose 1 PATCH; Start 04/22/17 at 05:30 Morphine Sulfate (morphine) 1 mg Q4H PRN IV SEVERE PAIN LEVEL 7-10 Last administered on 05/08/17 02:30; Admin Dose 1 MG; Start 04/22/17 at 17:30 Metoclopramide HCl (Reglan) 10 mg Q6H PRN IV NAUSEA Last administered on 20:18; Admin Dose 10 MG; Start 04/22/17 at 21:00 Enoxaparin Sodium (Lovenox) 30 mg DAILY SC Last administered on 05/12/17 09: 15; Admin Dose 30 MG; Start 04/23/17 at 20:30 Acetaminophen (Tylenol Supp) 650 mg Q6H PRN [place] FEVER GREATER THAN 100.6; Start 04/23/17 at 20:30 Acetaminophen (Tylenol Tab) 650 mg Q6H PRN PO PAIN AND OR ELEVATED TEMP Last administered on 05/12/17 15:00; Admin Dose 650 MG; Start 04/23/17 at 20:30 Lactobacillus Acidophilus/ Rhamnosus (Culturelle) 1 cap BID PO Last administered on 05/12/17 09:11; Admin Dose 1 CAP; Start 04/24/17 at 11:30 Diagnostic Test (Pha) (Accu-Chek) 1 ea 02 XX ; Start 04/26/17 at 02:00 Docusate Sodium (Colace) 100 mg BID PO Last administered on 05/12/17 09:11; Admin Dose 100 MG; Start 04/30/17 at 21:00 Potassium Chloride (Klor-Con 20) 20 meq BID PO Last administered on 05/12/17 09:11; Admin Dose 20 MEQ; Start 05/04/17 at 21:00 Nalbuphine HCl (Nubain) 10 mg Q4H PRN IV PRURITUS; Start 05/07/17 at 13:30 Ondansetron HCl (Zofran Inj) 4 mg Q6H PRN IV NAUSEA AND/OR VOMITING; Start 05/07/17 at 13:30 Metoprolol Tartrate (Lopressor) 25 mg BID PO Last administered on 05/12/17 09 :10; Admin Dose 25 MG; Start 05/08/17 at 14:00 NGOC GARZA MD May 12, 2017 17:34
--- NOTE | 2017-05-12 17:50 | CONS ---
Date/Time of Note Date/Time of Note DATE: 05/12/17 TIME: 17:49 Assessment/Plan Assessment/Plan Chief Complaint/Hosp Course - severe sepsis due to pyogenic liver abscess, loculated pleural effusion s/p R thoracotomy, thoracoscopy, total pulmonary decortication on 05/07/2017. Path showed fibrin, necrotic tissue and abscess, no evidence of malignancy. - multiloculated pyogenic liver abscess s/p CT guided drainage catheter placement 04/15/2017, 04/23/2017, s/p repeat drainage 04/27/2017; cultures from gamma hemolytic strep, cultures from 04/23/2017 alpha hemolytic strep - loculated pleural effusion likely secondary to hepatic process/Hepatic hydrothorax, R>L, s/p R thoracentesis on 04/20/2017, s/p chest tube placement on 04/22/2017 - intermittent diarrhea - normocytic anemia requiring blood transfusion - coagulopathy, improved - Transaminitis, improved - Hyponatremia - CoNS in urine culture with trivial pyuria, likely contaminant - Hx of rectal CA s/p Low anterior resection 08/29/2016 - Severe protein calorie malnutrition - allergy to vancomycin recommendations: - follow up CT to be arranged by Dr. Ceballos. will review the result - continue amp/sulbactam (04/18/2017-); s/p linezolid and pip/tazo (04/13-2016). - we recommend long-term (6 weeks at least) antibiotic administration management d/w Pt Problems: Consultation Date/Type/Reason Admit Date/Time Apr 13, 2017 at 19:51 Initial Consult Date 04/21/17 Type of Consultation: ID Referring Provider: DARREL BURT MD 24 HR Interval Summary Constitutional: no complaints Detailed Summary Eyes: no complaints ENT: no complaints Respiratory: other (painful when the chest tube was removed), No shortness of breath Cardiovascular: no complaints Gastrointestinal: no complaints Genitourinary: no complaints Musculoskeletal: no complaints Skin: no complaints Neurologic: no complaints Exam/Review of Systems Vital Signs Vitals Vital Signs Date Time Temp Pulse Resp B/P Pulse Ox O2 Delivery O2 Flow Rate FiO2 05/12/17 16:00 92 05/12/17 14:58 98.5 18 119/73 100 05/11/17 21:50 3.0 05/10/17 00:00 Nasal Cannula Intake and Output 05/11/17 05/11/17 05/12/17 15:00 23:00 07:00 Intake Total 580 ml 100 ml Output Total 1110 ml 55 ml Balance -530 ml 45 ml Exam Constitutional: alert, frail, oriented Psych: nl mood/affect, no complaints Head: atraumatic, normocephalic Eyes: nl conjunctiva, nl lids ENMT: nl external ears & nose Neck: supple Respiratory: diminished breath sounds Cardiovascular: nl pulses, regular rate and rhythm Gastrointestinal: non-tender, other (+external drainage catheter), soft Musculoskeletal: nl extremities to inspection Extremities: No edema 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 SPECIALIST II-XII 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, 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, nl speech Skin: nl turgor Results Result Diagram: 05/12/1773705/12/17737 Results 24 hrs Laboratory Tests Test 05/11/17 21:11 05/12/17 07:38 05/12/17 07:50 05/12/17 11:51 Bedside Glucose 120 130 132 White Blood Count 9.2 Red Blood Count 3.42 L Hemoglobin 10.1 L Hematocrit 31.9 L Mean Corpuscular Volume 93.3 Mean Corpuscular Hemoglobin 29.5 Mean Corpuscular Hemoglobin Concent 31.7 L Red Cell Distribution Width 14.1 Platelet Count 447 H Mean Platelet Volume 8.3 Neutrophils % 61.3 Lymphocytes % 25.0 Monocytes % 10.9 Eosinophils % 1.6 Basophils % 0.5 Nucleated Red Blood Cells % 0.0 Neutrophils # 5.6 Lymphocytes # 2.3 Monocytes # 1.0 H Eosinophils # 0.2 Basophils # 0.1 Nucleated Red Blood Cells # 0.0 Sodium Level 136 Potassium Level 4.7 Chloride Level 97 Carbon Dioxide Level 34 H Anion Gap 10 Blood Urea Nitrogen 9 Creatinine 0.42 L Glucose Level 115 Calcium Level 9.4 Test 05/12/17 16:57 Bedside Glucose 140 Medications Medications Current Medications Miscellaneous Information 1 ea NOTE XX ; Start 04/13/17 at 21:30 Glucose (Glutose) 15 gm Q15M PRN PO DECREASED GLUCOSE; Start 04/13/17 at 21:30 Glucose (Glutose) 22.5 gm Q15M PRN PO DECREASED GLUCOSE; Start 04/13/17 at 21: 30 Dextrose (D50w Syringe) 25 ml Q15M PRN IV DECREASED GLUCOSE; Start 04/13/17 at 21:30 Dextrose (D50w Syringe) 50 ml Q15M PRN IV DECREASED GLUCOSE; Start 04/13/17 at 21:30 Glucagon (Glucagen) 1 mg Q15M PRN IM DECREASED GLUCOSE; Start 04/13/17 at 21:30 Glucose (Glutose) 15 gm Q15M PRN BUCCAL DECREASED GLUCOSE; Start 04/13/17 at 21 :30 Ondansetron HCl (Zofran Inj) 4 mg Q6 PRN IV NAUSEA AND/OR VOMITING Last administered on 04/26/17 20:25; Admin Dose 4 MG; Start 04/13/17 at 21:30 Guaifenesin/ Dextromethorphan (Robitussin Dm Liquid Cup) 5 ml Q4H PRN PO COUGH Last administered on 04/19/17 05:09; Admin Dose 5 ML; Start 04/15/17 at 16:30 Pantoprazole (Protonix Tab) 40 mg DAILY@06 PO Last administered on 05/12/17 06:30; Admin Dose 40 MG; Start 04/17/17 at 06:00 Acetaminophen (Tylenol Tab) 500 mg Q6H PRN PO PAIN AND OR ELEVATED TEMP Last administered on 05/06/17 03:25; Admin Dose 500 MG; Start 04/17/17 at 03:00 Magnesium Hydroxide 30 ml 30 ml DAILY PRN PO CONSTIPATION Last administered on 04/28/17 18:33; Admin Dose 30 ML; Start 04/17/17 at 11:30 Ampicillin Sodium/ Sulbactam Sodium (Unasyn 1.5gm/NS (Pmx)) 50 ml @ 100 mls/hr Q6 IVPB Last administered on 05/12/17 17:02; Admin Dose 100 MLS/HR; Start at 18:00 Fentanyl (Duragesic 12 Mcg/Hr Patch) 1 patch Q72H TRANSDERM Last administered on 05/10/17 07:54; Admin Dose 1 PATCH; Start 04/22/17 at 05:30 Morphine Sulfate (morphine) 1 mg Q4H PRN IV SEVERE PAIN LEVEL 7-10 Last administered on 05/08/17 02:30; Admin Dose 1 MG; Start 04/22/17 at 17:30 Metoclopramide HCl (Reglan) 10 mg Q6H PRN IV NAUSEA Last administered on 20:18; Admin Dose 10 MG; Start 04/22/17 at 21:00 Enoxaparin Sodium (Lovenox) 30 mg DAILY SC Last administered on 05/12/17 09: 15; Admin Dose 30 MG; Start 04/23/17 at 20:30 Acetaminophen (Tylenol Supp) 650 mg Q6H PRN [place] FEVER GREATER THAN 100.6; Start 04/23/17 at 20:30 Acetaminophen (Tylenol Tab) 650 mg Q6H PRN PO PAIN AND OR ELEVATED TEMP Last administered on 05/12/17 15:00; Admin Dose 650 MG; Start 04/23/17 at 20:30 Lactobacillus Acidophilus/ Rhamnosus (Culturelle) 1 cap BID PO Last administered on 05/12/17 09:11; Admin Dose 1 CAP; Start 04/24/17 at 11:30 Diagnostic Test (Pha) (Accu-Chek) 1 ea 02 XX ; Start 04/26/17 at 02:00 Docusate Sodium (Colace) 100 mg BID PO Last administered on 05/12/17 09:11; Admin Dose 100 MG; Start 04/30/17 at 21:00 Potassium Chloride (Klor-Con 20) 20 meq BID PO Last administered on 05/12/17 09:11; Admin Dose 20 MEQ; Start 05/04/17 at 21:00 Nalbuphine HCl (Nubain) 10 mg Q4H PRN IV PRURITUS; Start 05/07/17 at 13:30 Ondansetron HCl (Zofran Inj) 4 mg Q6H PRN IV NAUSEA AND/OR VOMITING; Start 05/07/17 at 13:30 Metoprolol Tartrate (Lopressor) 25 mg BID PO Last administered on 05/12/17 09 :10; Admin Dose 25 MG; Start 05/08/17 at 14:00 AARON ANSARI M.D. May 12, 2017 17:50
[2017-05-13] VITALS (11 sets, daily range): BP systolic 110–131; BP diastolic 62–71; PULSE 85–99; RESP 17–20
[2017-05-13] MEDS: AMPICILLIN/SULB 1.5GM/NS (PMX) 50 ML IVPB SCH ×5 (00:48→23:30)
[2017-05-13] MEDS: ACCU-CHEK XX SCH (02:00)
[2017-05-13] MEDS: FUROSEMIDE 20 MG TAB PO SCH ×2 (06:09→17:48)
[2017-05-13] MEDS: PANTOPRAZOLE (EC) 40 MG TAB PO SCH (06:09)
[2017-05-13] MEDS: FENTAnyl PATCH 12 MCG/HR TRANSDERM SCH (06:14)
[2017-05-13] MEDS: Insulin NOVOLOG SS MILD Algorithm (SS with meals and bedtime) SC SCH ×5 (07:25→20:17)
[2017-05-13 07:27] LABS: BASOPHIL # 0.1 10^3/ul (0.0-0.1); BASOPHILS % 0.6 % (0.0-2.0); EOSINOPHILS # 0.1 10^3/ul (0.0-0.5); EOSINOPHILS % 1.4 % (0.0-7.0); HEMOGLOBIN 9.7 g/dl (12.0-16.0); LYMPHOCYTES # 2.3 10^3/ul (0.8-2.9); LYMPHOCYTES % 28.3 % (15.0-51.0); MEAN CORPUSCULAR HEMOGLOBIN 31.1 pg (29.0-33.0); MEAN CORPUSCULAR HGB CONC 33.4 g/dl (32.0-37.0); MEAN CORPUSCULAR VOLUME 92.9 fl (82.0-101.0); MEAN PLATELET VOLUME 7.9 fl (7.4-10.4); MONOCYTES % 12.4 % (0.0-11.0); NEUTROPHIL # 4.6 10^3/ul (1.6-7.5); NEUTROPHILS % 56.6 % (39.0-77.0); PLATELET COUNT 401 10^3/UL (140-415); RED BLOOD COUNT 3.12 10^6/ul (4.20-5.40); RED CELL DISTRIBUTION WIDTH 13.7 % (11.5-14.5); WHITE BLOOD COUNT 8.1 10^3/ul (4.8-10.8)
[2017-05-13 07:45] LABS: CREATININE 0.36 mg/dl (0.44-1.00); POTASSIUM 3.8 mmol/L (3.5-5.1)
[2017-05-13] MEDS: LACTOBACILLUS RHAMNOSUS CAP PO SCH ×2 (08:35→20:08)
[2017-05-13] MEDS: DOCUSATE SODIUM 100 MG CAP PO SCH ×2 (08:35→20:08)
[2017-05-13] MEDS: METOPROLOL 25 MG TAB PO SCH ×2 (08:35→20:10)
[2017-05-13] MEDS: POTASSIUM CHLORIDE (SR) 20 MEQ TAB PO SCH ×2 (08:36→20:08)
[2017-05-13] MEDS: ENOXAPARIN 30 MG/0.3 ML SYG SC SCH (08:40)
--- NOTE | 2017-05-13 10:32 | CONS ---
Date/Time of Note Date/Time of Note DATE: 05/13/17 TIME: 10:30 Assessment/Plan Assessment/Plan Chief Complaint/Hosp Course - severe sepsis due to pyogenic liver abscess, loculated pleural effusion s/p R thoracotomy, thoracoscopy, total pulmonary decortication on 05/07/2017. Path showed fibrin, necrotic tissue and abscess, no evidence of malignancy. - multiloculated pyogenic liver abscess s/p CT guided drainage catheter placement 04/15/2017, 04/23/2017, s/p repeat drainage 04/27/2017; cultures from gamma hemolytic strep, cultures from 04/23/2017 alpha hemolytic strep - loculated pleural effusion likely secondary to hepatic process/Hepatic hydrothorax, R>L, s/p R thoracentesis on 04/20/2017, s/p chest tube placement on 04/22/2017 - intermittent diarrhea - normocytic anemia requiring blood transfusion - coagulopathy, improved - Transaminitis, improved - Hyponatremia - CoNS in urine culture with trivial pyuria, likely contaminant - Hx of rectal CA s/p Low anterior resection 08/29/2016 - Severe protein calorie malnutrition - allergy to vancomycin recommendations: - follow up CT to be arranged by Dr. Ceballos. will review the result - continue amp/sulbactam (04/18/2017-); s/p linezolid and pip/tazo (04/13-2016). - we recommend long-term (6 weeks at least) antibiotic administration management d/w Pt Problems: Consultation Date/Type/Reason Admit Date/Time Apr 13, 2017 at 19:51 Initial Consult Date 04/21/17 Type of Consultation: ID Referring Provider: DARREL BURT MD 24 HR Interval Summary Constitutional: no complaints Detailed Summary Eyes: no complaints ENT: no complaints Respiratory: pain (on R chest with body movement only) Cardiovascular: no complaints Gastrointestinal: no complaints Genitourinary: no complaints Musculoskeletal: no complaints Skin: no complaints Neurologic: no complaints Exam/Review of Systems Vital Signs Vitals Vital Signs Date Time Temp Pulse Resp B/P Pulse Ox O2 Delivery O2 Flow Rate FiO2 05/13/17 09:16 95 05/13/17 08:30 Nasal Cannula 3.0 05/13/17 07:32 98.5 17 115/62 98 Intake and Output 05/12/17 05/12/17 05/13/17 14:59 22:59 06:59 Intake Total 800 ml 400 ml Output Total 850 ml Balance 800 ml -450 ml Exam Constitutional: alert, oriented, well developed Psych: nl mood/affect, no complaints Head: atraumatic, normocephalic Eyes: nl conjunctiva, nl lids ENMT: nl external ears & nose, nl nasal mucosa & septum Neck: supple Respiratory: diminished breath sounds Cardiovascular: nl pulses, regular rate and rhythm Gastrointestinal: non-tender, other (+external drainage catheter), soft Musculoskeletal: nl extremities to inspection Extremities: No edema 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: UTILITY INSPECTOR II-XII intact, 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, nl speech Skin: nl turgor Results Result Diagram: 05/13/17 0705/13/17 07 Results 24 hrs Laboratory Tests Test 05/12/17 11:51 05/12/17 16:57 05/12/17 21:57 05/13/17 07:01 Bedside Glucose 132 140 136 White Blood Count 8.1 Red Blood Count 3.12 L Hemoglobin 9.7 L Hematocrit 29.0 L Mean Corpuscular Volume 92.9 Mean Corpuscular Hemoglobin 31.1 Mean Corpuscular Hemoglobin Concent 33.4 Red Cell Distribution Width 13.7 Platelet Count 401 Mean Platelet Volume 7.9 Neutrophils % 56.6 Lymphocytes % 28.3 Monocytes % 12.4 H Eosinophils % 1.4 Basophils % 0.6 Nucleated Red Blood Cells % 0.0 Neutrophils # 4.6 Lymphocytes # 2.3 Monocytes # 1.0 H Eosinophils # 0.1 Basophils # 0.1 Nucleated Red Blood Cells # 0.0 Sodium Level 133 L Potassium Level 3.8 Chloride Level 96 L Carbon Dioxide Level 31 Anion Gap 10 Blood Urea Nitrogen 13 Creatinine 0.36 L Glucose Level 115 Calcium Level 9.0 Test 05/13/17 08:30 Bedside Glucose 132 Medications Medications Current Medications Miscellaneous Information 1 ea NOTE XX ; Start 04/13/17 at 21:30 Glucose (Glutose) 15 gm Q15M PRN PO DECREASED GLUCOSE; Start 04/13/17 at 21:30 Glucose (Glutose) 22.5 gm Q15M PRN PO DECREASED GLUCOSE; Start 04/13/17 at 21: 30 Dextrose (D50w Syringe) 25 ml Q15M PRN IV DECREASED GLUCOSE; Start 04/13/17 at 21:30 Dextrose (D50w Syringe) 50 ml Q15M PRN IV DECREASED GLUCOSE; Start 04/13/17 at 21:30 Glucagon (Glucagen) 1 mg Q15M PRN IM DECREASED GLUCOSE; Start 04/13/17 at 21:30 Glucose (Glutose) 15 gm Q15M PRN BUCCAL DECREASED GLUCOSE; Start 04/13/17 at 21 :30 Ondansetron HCl (Zofran Inj) 4 mg Q6 PRN IV NAUSEA AND/OR VOMITING Last administered on 04/26/17 20:25; Admin Dose 4 MG; Start 04/13/17 at 21:30 Guaifenesin/ Dextromethorphan (Robitussin Dm Liquid Cup) 5 ml Q4H PRN PO COUGH Last administered on 04/19/17 05:09; Admin Dose 5 ML; Start 04/15/17 at 16:30 Pantoprazole (Protonix Tab) 40 mg DAILY@06 PO Last administered on 05/13/17 06:09; Admin Dose 40 MG; Start 04/17/17 at 06:00 Acetaminophen (Tylenol Tab) 500 mg Q6H PRN PO PAIN AND OR ELEVATED TEMP Last administered on 05/06/17 03:25; Admin Dose 500 MG; Start 04/17/17 at 03:00 Magnesium Hydroxide 30 ml 30 ml DAILY PRN PO CONSTIPATION Last administered on 04/28/17 18:33; Admin Dose 30 ML; Start 04/17/17 at 11:30 Ampicillin Sodium/ Sulbactam Sodium (Unasyn 1.5gm/NS (Pmx)) 50 ml @ 100 mls/hr Q6 IVPB Last administered on 05/13/17 06:09; Admin Dose 100 MLS/HR; Start at 18:00 Fentanyl (Duragesic 12 Mcg/Hr Patch) 1 patch Q72H TRANSDERM Last administered on 05/13/17 06:14; Admin Dose 1 PATCH; Start 04/22/17 at 05:30 Morphine Sulfate (morphine) 1 mg Q4H PRN IV SEVERE PAIN LEVEL 7-10 Last administered on 05/08/17 02:30; Admin Dose 1 MG; Start 04/22/17 at 17:30 Metoclopramide HCl (Reglan) 10 mg Q6H PRN IV NAUSEA Last administered on 20:18; Admin Dose 10 MG; Start 04/22/17 at 21:00 Enoxaparin Sodium (Lovenox) 30 mg DAILY SC Last administered on 05/13/17 08: 40; Admin Dose 30 MG; Start 04/23/17 at 20:30 Acetaminophen (Tylenol Supp) 650 mg Q6H PRN [place] FEVER GREATER THAN 100.6; Start 04/23/17 at 20:30 Acetaminophen (Tylenol Tab) 650 mg Q6H PRN PO PAIN AND OR ELEVATED TEMP Last administered on 05/12/17 15:00; Admin Dose 650 MG; Start 04/23/17 at 20:30 Lactobacillus Acidophilus/ Rhamnosus (Culturelle) 1 cap BID PO Last administered on 05/13/17 08:35; Admin Dose 1 CAP; Start 04/24/17 at 11:30 Diagnostic Test (Pha) (Accu-Chek) 1 ea 02 XX ; Start 04/26/17 at 02:00 Docusate Sodium (Colace) 100 mg BID PO Last administered on 05/13/17 08:35; Admin Dose 100 MG; Start 04/30/17 at 21:00 Potassium Chloride (Klor-Con 20) 20 meq BID PO Last administered on 05/13/17 08:36; Admin Dose 20 MEQ; Start 05/04/17 at 21:00 Nalbuphine HCl (Nubain) 10 mg Q4H PRN IV PRURITUS; Start 05/07/17 at 13:30 Ondansetron HCl (Zofran Inj) 4 mg Q6H PRN IV NAUSEA AND/OR VOMITING; Start 05/07/17 at 13:30 Metoprolol Tartrate (Lopressor) 25 mg BID PO Last administered on 05/13/17 08 :35; Admin Dose 25 MG; Start 05/08/17 at 14:00 AARON ANSARI M.D. May 13, 2017 10:32
--- NOTE | 2017-05-13 13:06 | CONS ---
Date/Time of Note Date/Time of Note DATE: 05/13/17 TIME: 13:04 Assessment/Plan Assessment/Plan Additional Assessment/Plan Assessment and recommendations; 1. Patient admitted with hepatic abscess then developed right sided pneumonia with significant loculations requiring a VATS procedure with marked interval improvement. Status post chest tube removal. Next Continue current treatment. Consultation Date/Type/Reason Admit Date/Time Apr 13, 2017 at 19:51 Initial Consult Date 04/15/17 Type of Consultation: Pulmonary Referring Provider: DARREL BURT MD 24 HR Interval Summary Free Text/Dictation Patient's condition is stable. Right-sided chest tube removed yesterday. Denies any shortness of breath. General exam; elderly woman, awake alert, currently in no distress. Exam/Review of Systems Vital Signs Vitals Vital Signs Date Time Temp Pulse Resp B/P Pulse Ox O2 Delivery O2 Flow Rate FiO2 05/13/17 12:47 99 05/13/17 11:29 98.2 18 119/67 97 05/13/17 08:30 Nasal Cannula 3.0 Intake and Output 05/12/17 05/12/17 05/13/17 15:00 23:00 07:00 Intake Total 800 ml 400 ml Output Total 850 ml Balance 800 ml -450 ml Exam HEENT exam; supple neck, no JVD. No lymphadenopathy. Midline trachea. No thyromegaly. Patient has a multiple carious teeth. Chest exam; improved breath sounds right lower lobe. Rest of the lung modi are clear to auscultation. S1-S2 audible, no murmurs. Regular rhythm. Abdomen exam; soft, nontender. No organomegaly. Bowel sounds audible. Right upper quadrant drain in place. Extremity exam; no edema. 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 Results Result Diagram: 05/13/17 0701 05/13/17 0701 Results 24 hrs Laboratory Tests Test 05/12/17 16:57 05/12/17 21:57 05/13/17 07:01 05/13/17 08:30 Bedside Glucose 140 136 132 White Blood Count 8.1 Red Blood Count 3.12 L Hemoglobin 9.7 L Hematocrit 29.0 L Mean Corpuscular Volume 92.9 Mean Corpuscular Hemoglobin 31.1 Mean Corpuscular Hemoglobin Concent 33.4 Red Cell Distribution Width 13.7 Platelet Count 401 Mean Platelet Volume 7.9 Neutrophils % 56.6 Lymphocytes % 28.3 Monocytes % 12.4 H Eosinophils % 1.4 Basophils % 0.6 Nucleated Red Blood Cells % 0.0 Neutrophils # 4.6 Lymphocytes # 2.3 Monocytes # 1.0 H Eosinophils # 0.1 Basophils # 0.1 Nucleated Red Blood Cells # 0.0 Sodium Level 133 L Potassium Level 3.8 Chloride Level 96 L Carbon Dioxide Level 31 Anion Gap 10 Blood Urea Nitrogen 13 Creatinine 0.36 L Glucose Level 115 Calcium Level 9.0 Test 05/13/17 12:12 Bedside Glucose 128 Medications Medications Current Medications Miscellaneous Information 1 ea NOTE XX ; Start 04/13/17 at 21:30 Glucose (Glutose) 15 gm Q15M PRN PO DECREASED GLUCOSE; Start 04/13/17 at 21:30 Glucose (Glutose) 22.5 gm Q15M PRN PO DECREASED GLUCOSE; Start 04/13/17 at 21: 30 Dextrose (D50w Syringe) 25 ml Q15M PRN IV DECREASED GLUCOSE; Start 04/13/17 at 21:30 Dextrose (D50w Syringe) 50 ml Q15M PRN IV DECREASED GLUCOSE; Start 04/13/17 at 21:30 Glucagon (Glucagen) 1 mg Q15M PRN IM DECREASED GLUCOSE; Start 04/13/17 at 21:30 Glucose (Glutose) 15 gm Q15M PRN BUCCAL DECREASED GLUCOSE; Start 04/13/17 at 21 :30 Ondansetron HCl (Zofran Inj) 4 mg Q6 PRN IV NAUSEA AND/OR VOMITING Last administered on 04/26/17 20:25; Admin Dose 4 MG; Start 04/13/17 at 21:30 Guaifenesin/ Dextromethorphan (Robitussin Dm Liquid Cup) 5 ml Q4H PRN PO COUGH Last administered on 04/19/17 05:09; Admin Dose 5 ML; Start 04/15/17 at 16:30 Pantoprazole (Protonix Tab) 40 mg DAILY@06 PO Last administered on 05/13/17 06:09; Admin Dose 40 MG; Start 04/17/17 at 06:00 Acetaminophen (Tylenol Tab) 500 mg Q6H PRN PO PAIN AND OR ELEVATED TEMP Last administered on 05/06/17 03:25; Admin Dose 500 MG; Start 04/17/17 at 03:00 Magnesium Hydroxide 30 ml 30 ml DAILY PRN PO CONSTIPATION Last administered on 04/28/17 18:33; Admin Dose 30 ML; Start 04/17/17 at 11:30 Ampicillin Sodium/ Sulbactam Sodium (Unasyn 1.5gm/NS (Pmx)) 50 ml @ 100 mls/hr Q6 IVPB Last administered on 05/13/17 12:13; Admin Dose 100 MLS/HR; Start at 18:00 Fentanyl (Duragesic 12 Mcg/Hr Patch) 1 patch Q72H TRANSDERM Last administered on 05/13/17 06:14; Admin Dose 1 PATCH; Start 04/22/17 at 05:30 Morphine Sulfate (morphine) 1 mg Q4H PRN IV SEVERE PAIN LEVEL 7-10 Last administered on 05/08/17 02:30; Admin Dose 1 MG; Start 04/22/17 at 17:30 Metoclopramide HCl (Reglan) 10 mg Q6H PRN IV NAUSEA Last administered on 20:18; Admin Dose 10 MG; Start 04/22/17 at 21:00 Enoxaparin Sodium (Lovenox) 30 mg DAILY SC Last administered on 05/13/17 08: 40; Admin Dose 30 MG; Start 04/23/17 at 20:30 Acetaminophen (Tylenol Supp) 650 mg Q6H PRN [place] FEVER GREATER THAN 100.6; Start 04/23/17 at 20:30 Acetaminophen (Tylenol Tab) 650 mg Q6H PRN PO PAIN AND OR ELEVATED TEMP Last administered on 05/12/17 15:00; Admin Dose 650 MG; Start 04/23/17 at 20:30 Lactobacillus Acidophilus/ Rhamnosus (Culturelle) 1 cap BID PO Last administered on 05/13/17 08:35; Admin Dose 1 CAP; Start 04/24/17 at 11:30 Diagnostic Test (Pha) (Accu-Chek) 1 ea 02 XX ; Start 04/26/17 at 02:00 Docusate Sodium (Colace) 100 mg BID PO Last administered on 05/13/17 08:35; Admin Dose 100 MG; Start 04/30/17 at 21:00 Potassium Chloride (Klor-Con 20) 20 meq BID PO Last administered on 05/13/17 08:36; Admin Dose 20 MEQ; Start 05/04/17 at 21:00 Nalbuphine HCl (Nubain) 10 mg Q4H PRN IV PRURITUS; Start 05/07/17 at 13:30 Ondansetron HCl (Zofran Inj) 4 mg Q6H PRN IV NAUSEA AND/OR VOMITING; Start 05/07/17 at 13:30 Metoprolol Tartrate (Lopressor) 25 mg BID PO Last administered on 05/13/17 08 :35; Admin Dose 25 MG; Start 05/08/17 at 14:00 LINDA GARCIA May 13, 2017 13:06
--- NOTE | 2017-05-13 13:15 | PN ---
Date/Time of Note Date/Time of Note DATE: 05/13/17 TIME: 13:12 Assessment/Plan VTE Prophylaxis VTE Prophylaxis Intervention: SCD's Lines/Catheters IV [facility]ter Type (from [facility]): Peripheral IV Urinary Cath still in place: No Assessment/Plan Chief Complaint/Hosp Course Patient is stable at rest on supplemental oxygen, CXR tomorrow, plan for CT of the abdomen for evaluation of liver abscess this week. Assessment/Plan - Bilateral pleural effusions right more than left, status post right thoracentesis 04/20. S/p right chest tube insertion on 04/[address] Jackson, vascular surgery. S/p right thoracentesis 04/26. S/P Right VATS decortication on 05/07. CT removed 05/12. - Acute respiratory failure secondary to #1, Dr. Damico is following in pulmonology consultation continue oxygen oxygen supplementation - Severe sepsis 2/2 to liver abscess, resolving. Continue antibiotics per ID. is following in infection disease consultation - Liver abscess unchanged per recent CT, s/p CT guided drainage 04/15/2017, s/p CT guided percutaneous drainage of liver abscess 04/23, status post CT-guided liver abscess drainage 04/27 - Normocytic anemia requiring blood transfusion - Hx of rectal CA s/p Low anterior resection 08/29/2016 Further recommendations based on clinical course. Plan of care discussed with Dr. Dior Problems: Exam/Review of Systems Vital Signs Vitals Vital Signs Date Time Temp Pulse Resp B/P Pulse Ox O2 Delivery O2 Flow Rate FiO2 05/13/17 12:47 99 05/13/17 11:29 98.2 18 119/67 97 05/13/17 08:30 Nasal Cannula 3.0 Intake and Output 05/12/17 05/12/17 05/13/17 15:00 23:00 07:00 Intake Total 800 ml 400 ml Output Total 850 ml Balance 800 ml -450 ml Exam Constitutional: alert, oriented Neck: supple Respiratory: normal air movement Cardiovascular: nl pulses Gastrointestinal: non-tender, other (Hepatic drain), soft Extremities: normal pulses Results Result Diagram: 05/13/17 0701 05/13/17 0701 Results 24 hrs Laboratory Tests Test 05/12/17 16:57 05/12/17 21:57 05/13/17 07:01 05/13/17 08:30 Bedside Glucose 140 136 132 White Blood Count 8.1 Red Blood Count 3.12 L Hemoglobin 9.7 L Hematocrit 29.0 L Mean Corpuscular Volume 92.9 Mean Corpuscular Hemoglobin 31.1 Mean Corpuscular Hemoglobin Concent 33.4 Red Cell Distribution Width 13.7 Platelet Count 401 Mean Platelet Volume 7.9 Neutrophils % 56.6 Lymphocytes % 28.3 Monocytes % 12.4 H Eosinophils % 1.4 Basophils % 0.6 Nucleated Red Blood Cells % 0.0 Neutrophils # 4.6 Lymphocytes # 2.3 Monocytes # 1.0 H Eosinophils # 0.1 Basophils # 0.1 Nucleated Red Blood Cells # 0.0 Sodium Level 133 L Potassium Level 3.8 Chloride Level 96 L Carbon Dioxide Level 31 Anion Gap 10 Blood Urea Nitrogen 13 Creatinine 0.36 L Glucose Level 115 Calcium Level 9.0 Test 05/13/17 12:12 Bedside Glucose 128 Medications Medications Current Medications Miscellaneous Information 1 ea NOTE XX ; Start 04/13/17 at 21:30 Glucose (Glutose) 15 gm Q15M PRN PO DECREASED GLUCOSE; Start 04/13/17 at 21:30 Glucose (Glutose) 22.5 gm Q15M PRN PO DECREASED GLUCOSE; Start 04/13/17 at 21: 30 Dextrose (D50w Syringe) 25 ml Q15M PRN IV DECREASED GLUCOSE; Start 04/13/17 at 21:30 Dextrose (D50w Syringe) 50 ml Q15M PRN IV DECREASED GLUCOSE; Start 04/13/17 at 21:30 Glucagon (Glucagen) 1 mg Q15M PRN IM DECREASED GLUCOSE; Start 04/13/17 at 21:30 Glucose (Glutose) 15 gm Q15M PRN BUCCAL DECREASED GLUCOSE; Start 04/13/17 at 21 :30 Ondansetron HCl (Zofran Inj) 4 mg Q6 PRN IV NAUSEA AND/OR VOMITING Last administered on 04/26/17 20:25; Admin Dose 4 MG; Start 04/13/17 at 21:30 Guaifenesin/ Dextromethorphan (Robitussin Dm Liquid Cup) 5 ml Q4H PRN PO COUGH Last administered on 04/19/17 05:09; Admin Dose 5 ML; Start 04/15/17 at 16:30 Pantoprazole (Protonix Tab) 40 mg DAILY@06 PO Last administered on 05/13/17 06:09; Admin Dose 40 MG; Start 04/17/17 at 06:00 Acetaminophen (Tylenol Tab) 500 mg Q6H PRN PO PAIN AND OR ELEVATED TEMP Last administered on 05/06/17 03:25; Admin Dose 500 MG; Start 04/17/17 at 03:00 Magnesium Hydroxide 30 ml 30 ml DAILY PRN PO CONSTIPATION Last administered on 04/28/17 18:33; Admin Dose 30 ML; Start 04/17/17 at 11:30 Ampicillin Sodium/ Sulbactam Sodium (Unasyn 1.5gm/NS (Pmx)) 50 ml @ 100 mls/hr Q6 IVPB Last administered on 05/13/17 12:13; Admin Dose 100 MLS/HR; Start at 18:00 Fentanyl (Duragesic 12 Mcg/Hr Patch) 1 patch Q72H TRANSDERM Last administered on 05/13/17 06:14; Admin Dose 1 PATCH; Start 04/22/17 at 05:30 Morphine Sulfate (morphine) 1 mg Q4H PRN IV SEVERE PAIN LEVEL 7-10 Last administered on 05/08/17 02:30; Admin Dose 1 MG; Start 04/22/17 at 17:30 Metoclopramide HCl (Reglan) 10 mg Q6H PRN IV NAUSEA Last administered on 20:18; Admin Dose 10 MG; Start 04/22/17 at 21:00 Enoxaparin Sodium (Lovenox) 30 mg DAILY SC Last administered on 05/13/17 08: 40; Admin Dose 30 MG; Start 04/23/17 at 20:30 Acetaminophen (Tylenol Supp) 650 mg Q6H PRN [place] FEVER GREATER THAN 100.6; Start 04/23/17 at 20:30 Acetaminophen (Tylenol Tab) 650 mg Q6H PRN PO PAIN AND OR ELEVATED TEMP Last administered on 05/12/17 15:00; Admin Dose 650 MG; Start 04/23/17 at 20:30 Lactobacillus Acidophilus/ Rhamnosus (Culturelle) 1 cap BID PO Last administered on 05/13/17 08:35; Admin Dose 1 CAP; Start 04/24/17 at 11:30 Diagnostic Test (Pha) (Accu-Chek) 1 ea 02 XX ; Start 04/26/17 at 02:00 Docusate Sodium (Colace) 100 mg BID PO Last administered on 05/13/17 08:35; Admin Dose 100 MG; Start 04/30/17 at 21:00 Potassium Chloride (Klor-Con 20) 20 meq BID PO Last administered on 05/13/17 08:36; Admin Dose 20 MEQ; Start 05/04/17 at 21:00 Nalbuphine HCl (Nubain) 10 mg Q4H PRN IV PRURITUS; Start 05/07/17 at 13:30 Ondansetron HCl (Zofran Inj) 4 mg Q6H PRN IV NAUSEA AND/OR VOMITING; Start 05/07/17 at 13:30 Metoprolol Tartrate (Lopressor) 25 mg BID PO Last administered on 05/13/17 08 :35; Admin Dose 25 MG; Start 05/08/17 at 14:00 WINDY EMERY May 13, 2017 13:15 WINDY EMERY May 13, 2017 13:15
--- NOTE | 2017-05-13 15:55 | CONS ---
Date/Time of Note Date/Time of Note DATE: 05/13/17 TIME: 15:51 Assessment/Plan Assessment/Plan Chief Complaint/Hosp Course IMP: 1.Hypertension- well controlled 2.abnl ecg-negative trop x 3/NL EF by echo. NO CP 3.Liver abscess s/p CT guided drainage 4.H/O lung ca s/p resection with lung nodules by CT? 5.Lung nodules 6. Hyponatremia 7. Effusion s/p VATS/decortication Recc: -Now back on tele s/p VATS/decortication -Continue abx's -F/U cx data -Continue BB -pain control -Continue lasix PO and follow volume status clsoely Problems: Consultation Date/Type/Reason Admit Date/Time Apr 13, 2017 at 19:51 Initial Consult Date 04/13/17 Type of Consultation: cardiology Reason for Consultation CHF Referring Provider: DARREL BURT MD Exam/Review of Systems Vital Signs Vitals Vital Signs Date Time Temp Pulse Resp B/P Pulse Ox O2 Delivery O2 Flow Rate FiO2 05/13/17 15:21 97.7 84 17 110/64 99 05/13/17 13:54 Nasal Cannula 3.0 Intake and Output 05/12/17 05/12/17 05/13/17 15:00 23:00 07:00 Intake Total 800 ml 400 ml Output Total 850 ml Balance 800 ml -450 ml Exam Review of Systems: CONSTITUTIONAL: No fevers, chills. PULMONARY: No sob CARDIOVASCULAR: No chest pain/palpitations GASTROINTESTINAL: No nausea/vomiting. GENITOURINARY: No hematuria/dysuria. MUSCULOSKELETAL: No myagias/arthalgias. PSYCHIATRIC: The patient denies depression. NEUROLOGIC: No weakness Constitutional: alert Psych: no complaints Head: normocephalic ENMT: mucosa pink and moist Neck: jvd (8 cm water), supple Respiratory: diminished breath sounds (at bases/B) Cardiovascular: regular rate and rhythm Gastrointestinal: non-tender Musculoskeletal: muscle weakness (generalized) Extremities: edema (none) 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: other (No focval deficits) Results Result Diagram: 05/13/17 0701 05/13/17 0701 Results 24 hrs Laboratory Tests Test 05/12/17 16:57 05/12/17 21:57 05/13/17 07:01 05/13/17 08:30 Bedside Glucose 140 136 132 White Blood Count 8.1 Red Blood Count 3.12 L Hemoglobin 9.7 L Hematocrit 29.0 L Mean Corpuscular Volume 92.9 Mean Corpuscular Hemoglobin 31.1 Mean Corpuscular Hemoglobin Concent 33.4 Red Cell Distribution Width 13.7 Platelet Count 401 Mean Platelet Volume 7.9 Neutrophils % 56.6 Lymphocytes % 28.3 Monocytes % 12.4 H Eosinophils % 1.4 Basophils % 0.6 Nucleated Red Blood Cells % 0.0 Neutrophils # 4.6 Lymphocytes # 2.3 Monocytes # 1.0 H Eosinophils # 0.1 Basophils # 0.1 Nucleated Red Blood Cells # 0.0 Sodium Level 133 L Potassium Level 3.8 Chloride Level 96 L Carbon Dioxide Level 31 Anion Gap 10 Blood Urea Nitrogen 13 Creatinine 0.36 L Glucose Level 115 Calcium Level 9.0 Test 05/13/17 12:12 Bedside Glucose 128 Medications Medications Current Medications Miscellaneous Information 1 ea NOTE XX ; Start 04/13/17 at 21:30 Glucose (Glutose) 15 gm Q15M PRN PO DECREASED GLUCOSE; Start 04/13/17 at 21:30 Glucose (Glutose) 22.5 gm Q15M PRN PO DECREASED GLUCOSE; Start 04/13/17 at 21: 30 Dextrose (D50w Syringe) 25 ml Q15M PRN IV DECREASED GLUCOSE; Start 04/13/17 at 21:30 Dextrose (D50w Syringe) 50 ml Q15M PRN IV DECREASED GLUCOSE; Start 04/13/17 at 21:30 Glucagon (Glucagen) 1 mg Q15M PRN IM DECREASED GLUCOSE; Start 04/13/17 at 21:30 Glucose (Glutose) 15 gm Q15M PRN BUCCAL DECREASED GLUCOSE; Start 04/13/17 at 21 :30 Ondansetron HCl (Zofran Inj) 4 mg Q6 PRN IV NAUSEA AND/OR VOMITING Last administered on 04/26/17 20:25; Admin Dose 4 MG; Start 04/13/17 at 21:30 Guaifenesin/ Dextromethorphan (Robitussin Dm Liquid Cup) 5 ml Q4H PRN PO COUGH Last administered on 04/19/17 05:09; Admin Dose 5 ML; Start 04/15/17 at 16:30 Pantoprazole (Protonix Tab) 40 mg DAILY@06 PO Last administered on 05/13/17 06:09; Admin Dose 40 MG; Start 04/17/17 at 06:00 Acetaminophen (Tylenol Tab) 500 mg Q6H PRN PO PAIN AND OR ELEVATED TEMP Last administered on 05/06/17 03:25; Admin Dose 500 MG; Start 04/17/17 at 03:00 Magnesium Hydroxide 30 ml 30 ml DAILY PRN PO CONSTIPATION Last administered on 04/28/17 18:33; Admin Dose 30 ML; Start 04/17/17 at 11:30 Ampicillin Sodium/ Sulbactam Sodium (Unasyn 1.5gm/NS (Pmx)) 50 ml @ 100 mls/hr Q6 IVPB Last administered on 05/13/17 12:13; Admin Dose 100 MLS/HR; Start at 18:00 Fentanyl (Duragesic 12 Mcg/Hr Patch) 1 patch Q72H TRANSDERM Last administered on 05/13/17 06:14; Admin Dose 1 PATCH; Start 04/22/17 at 05:30 Morphine Sulfate (morphine) 1 mg Q4H PRN IV SEVERE PAIN LEVEL 7-10 Last administered on 05/08/17 02:30; Admin Dose 1 MG; Start 04/22/17 at 17:30 Metoclopramide HCl (Reglan) 10 mg Q6H PRN IV NAUSEA Last administered on 20:18; Admin Dose 10 MG; Start 04/22/17 at 21:00 Enoxaparin Sodium (Lovenox) 30 mg DAILY SC Last administered on 05/13/17 08: 40; Admin Dose 30 MG; Start 04/23/17 at 20:30 Acetaminophen (Tylenol Supp) 650 mg Q6H PRN [place] FEVER GREATER THAN 100.6; Start 04/23/17 at 20:30 Acetaminophen (Tylenol Tab) 650 mg Q6H PRN PO PAIN AND OR ELEVATED TEMP Last administered on 05/12/17 15:00; Admin Dose 650 MG; Start 04/23/17 at 20:30 Lactobacillus Acidophilus/ Rhamnosus (Culturelle) 1 cap BID PO Last administered on 05/13/17 08:35; Admin Dose 1 CAP; Start 04/24/17 at 11:30 Diagnostic Test (Pha) (Accu-Chek) 1 ea 02 XX ; Start 04/26/17 at 02:00 Docusate Sodium (Colace) 100 mg BID PO Last administered on 05/13/17 08:35; Admin Dose 100 MG; Start 04/30/17 at 21:00 Potassium Chloride (Klor-Con 20) 20 meq BID PO Last administered on 05/13/17 08:36; Admin Dose 20 MEQ; Start 05/04/17 at 21:00 Nalbuphine HCl (Nubain) 10 mg Q4H PRN IV PRURITUS; Start 05/07/17 at 13:30 Ondansetron HCl (Zofran Inj) 4 mg Q6H PRN IV NAUSEA AND/OR VOMITING; Start 05/07/17 at 13:30 Metoprolol Tartrate (Lopressor) 25 mg BID PO Last administered on 05/13/17 08 :35; Admin Dose 25 MG; Start 05/08/17 at 14:00 LILIANA BARKSDALE May 13, 2017 15:55
--- NOTE | 2017-05-13 16:37 | PN ---
DATE: 05/13/2017 PROGRESS NOTE FOLLOWUP SUBJECTIVE: No new complaints. Apparently, the chest tube was removed last night. The patient is not complaining of shortness of breath, minimal chest pain. No abdominal pain. Tolerated her diet. Has had bowel movement GENERAL: Awake, alert, oriented x3. VITAL SIGNS: Temperature 98.2, heart rate 98 and regular, respirations 18, blood pressure 119/67, s aturation 97% on 2 liters nasal cannula. LABORATORY DATA: WBC 8100 with 56% segmented, hemoglobin 9.7, hematocrit 29. Pigtail drainage. In the last 24-hours has been 40 mL. The remaining in the tubing was serous in color. ABDOMEN: Soft. Pulse is regular. ASSESSMENT AND PLAN: A 66-year-old female who presented with sepsis and was found to have liver abs cess. Liver abscess was drained by percutaneous placement of a pigtail drainage catheter in the mikel er abscess cavities x3. Right now, the patient has only 1 pigtail left. Drainage is not too much a nd the color is serous. Chest tube which was placed after decortication of the right lung was remov ed last night. PLAN: Repeat CT scan of the abdomen with IV contrast to evaluate the abscess cavity in the liver be d. Dictated By: JOHN BURGOS MD PS/NTS Conf#: [id number] DID#: [id number]
--- NOTE | 2017-05-13 17:49 | RADRPT ---
PROCEDURE: XR Chest. CLINICAL INDICATION: Respiratory distress. TECHNIQUE: AP view of the chest was performed. COMPARISON: May 12, 2017 FINDINGS: The 2 right-sided chest tubes have been removed. Postsurgical changes are noted. The patient is appe ars to be status post right upper lobectomy. There is no pneumothorax. Pleural fluid is seen with in the right pneumonectomy cavity. The left lung is clear. The heart size is normal. The osseous struc tures are intact. IMPRESSION: Right chest tubes out. No pneumothorax. The patient appears to be status post right upper lobectomy. There is fluid within the pneumonectomy cavity. RPTAT: QQ. .Jennifer Carroll MD, Date Time Electronically viewed and signed by .Jennifer Carroll MD, on 05/13/2017 17:49 .F/
--- NOTE | 2017-05-13 19:05 | CONS ---
Date/Time of Note Date/Time of Note DATE: 05/13/17 TIME: 19:04 Assessment/Plan Assessment/Plan Chief Complaint/Hosp Course Problems: Additional Assessment/Plan 1. Bilateral pleural effusions right more than left, status post right thoracentesis 04/20. S/p right chest tube insertion on 04/[address] Jackson, vascular surgery. S/p right thoracentesis 04/26. - s/p Right VATS decortication 05/07/2017 2. Acute hyponatremia 2/2 Hypovolemic hyponatremia - Resolved 2. sepsis due to liver abscess 3. Hepatic abscess oN CT scan s/p CT guided drainage on 04/15/17 and 04/23/17 4. Acute transaminitis 5. h/o Colon CA s/p previous Surgery 6. Hypokalemia 7. acute resp failiue due to # 1 8. hypomagnesemia Plan : S/p Right VATS decortication, chest tube discontinued CXR much improved after surgery, small pleural effusion , HCO3 34- conitnue lasix 20mg pO BID IV abx as per ID, renally dose all abx pulmonary ID and G surgery has been following on patient. plan for CT abdomen tomorrow to better evaluate right liver drain will follow up Consultation Date/Type/Reason Admit Date/Time Apr 13, 2017 at 19:51 Initial Consult Date 04/13/17 Type of Consultation: NEPHROLOGY Referring Provider: DARREL BURT MD 24 HR Interval Summary Free Text/Dictation Na 133, Cr normal Exam/Review of Systems Vital Signs Vitals Vital Signs Date Time Temp Pulse Resp B/P Pulse Ox O2 Delivery O2 Flow Rate FiO2 05/13/17 16:45 87 05/13/17 15:48 Nasal Cannula 3.0 05/13/17 15:21 97.7 17 110/64 99 Intake and Output 05/12/17 05/12/17 05/13/17 15:00 23:00 07:00 Intake Total 800 ml 400 ml Output Total 850 ml Balance 800 ml -450 ml Exam Constitutional: alert, frail, oriented Respiratory: diminished breath sounds, other (right chest tube) Cardiovascular: nl pulses, regular rate and rhythm Musculoskeletal: nl extremities to inspection Extremities: No edema 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: NUMEROLOGIST II-XII intact, 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 Results Result Diagram: 05/13/17 0701 05/13/17 0701 Results 24 hrs Laboratory Tests Test 05/12/17 21:57 05/13/17 07:01 05/13/17 08:30 05/13/17 12:12 Bedside Glucose 136 132 128 White Blood Count 8.1 Red Blood Count 3.12 L Hemoglobin 9.7 L Hematocrit 29.0 L Mean Corpuscular Volume 92.9 Mean Corpuscular Hemoglobin 31.1 Mean Corpuscular Hemoglobin Concent 33.4 Red Cell Distribution Width 13.7 Platelet Count 401 Mean Platelet Volume 7.9 Neutrophils % 56.6 Lymphocytes % 28.3 Monocytes % 12.4 H Eosinophils % 1.4 Basophils % 0.6 Nucleated Red Blood Cells % 0.0 Neutrophils # 4.6 Lymphocytes # 2.3 Monocytes # 1.0 H Eosinophils # 0.1 Basophils # 0.1 Nucleated Red Blood Cells # 0.0 Sodium Level 133 L Potassium Level 3.8 Chloride Level 96 L Carbon Dioxide Level 31 Anion Gap 10 Blood Urea Nitrogen 13 Creatinine 0.36 L Glucose Level 115 Calcium Level 9.0 Test 05/13/17 17:35 Bedside Glucose 126 Medications Medications Current Medications Miscellaneous Information 1 ea NOTE XX ; Start 04/13/17 at 21:30 Glucose (Glutose) 15 gm Q15M PRN PO DECREASED GLUCOSE; Start 04/13/17 at 21:30 Glucose (Glutose) 22.5 gm Q15M PRN PO DECREASED GLUCOSE; Start 04/13/17 at 21: 30 Dextrose (D50w Syringe) 25 ml Q15M PRN IV DECREASED GLUCOSE; Start 04/13/17 at 21:30 Dextrose (D50w Syringe) 50 ml Q15M PRN IV DECREASED GLUCOSE; Start 04/13/17 at 21:30 Glucagon (Glucagen) 1 mg Q15M PRN IM DECREASED GLUCOSE; Start 04/13/17 at 21:30 Glucose (Glutose) 15 gm Q15M PRN BUCCAL DECREASED GLUCOSE; Start 04/13/17 at 21 :30 Ondansetron HCl (Zofran Inj) 4 mg Q6 PRN IV NAUSEA AND/OR VOMITING Last administered on 04/26/17t 20:25; Admin Dose 4 MG; Start 04/13/17 at 21:30 Guaifenesin/ Dextromethorphan (Robitussin Dm Liquid Cup) 5 ml Q4H PRN PO COUGH Last administered on 04/19/17 05:09; Admin Dose 5 ML; Start 04/15/17 at 16:30 Pantoprazole (Protonix Tab) 40 mg DAILY@06 PO Last administered on 05/13/17 06:09; Admin Dose 40 MG; Start 04/17/17 at 06:00 Acetaminophen (Tylenol Tab) 500 mg Q6H PRN PO PAIN AND OR ELEVATED TEMP Last administered on 05/06/17 03:25; Admin Dose 500 MG; Start 04/17/17 at 03:00 Magnesium Hydroxide 30 ml 30 ml DAILY PRN PO CONSTIPATION Last administered on 04/28/17 18:33; Admin Dose 30 ML; Start 04/17/17 at 11:30 Ampicillin Sodium/ Sulbactam Sodium (Unasyn 1.5gm/NS (Pmx)) 50 ml @ 100 mls/hr Q6 IVPB Last administered on 05/13/17 17:48; Admin Dose 100 MLS/HR; Start at 18:00 Fentanyl (Duragesic 12 Mcg/Hr Patch) 1 patch Q72H TRANSDERM Last administered on 05/13/17 06:14; Admin Dose 1 PATCH; Start 04/22/17 at 05:30 Morphine Sulfate (morphine) 1 mg Q4H PRN IV SEVERE PAIN LEVEL 7-10 Last administered on 05/08/17 02:30; Admin Dose 1 MG; Start 04/22/17 at 17:30 Metoclopramide HCl (Reglan) 10 mg Q6H PRN IV NAUSEA Last administered on 20:18; Admin Dose 10 MG; Start 04/22/17 at 21:00 Enoxaparin Sodium (Lovenox) 30 mg DAILY SC Last administered on 05/13/17 08: 40; Admin Dose 30 MG; Start 04/23/17 at 20:30 Acetaminophen (Tylenol Supp) 650 mg Q6H PRN [place] FEVER GREATER THAN 100.6; Start 04/23/17 at 20:30 Acetaminophen (Tylenol Tab) 650 mg Q6H PRN PO PAIN AND OR ELEVATED TEMP Last administered on 05/12/17 15:00; Admin Dose 650 MG; Start 04/23/17 at 20:30 Lactobacillus Acidophilus/ Rhamnosus (Culturelle) 1 cap BID PO Last administered on 05/13/17 08:35; Admin Dose 1 CAP; Start 04/24/17 at 11:30 Diagnostic Test (Pha) (Accu-Chek) 1 ea 02 XX ; Start 04/26/17 at 02:00 Docusate Sodium (Colace) 100 mg BID PO Last administered on 05/13/17 08:35; Admin Dose 100 MG; Start 04/30/17 at 21:00 Potassium Chloride (Klor-Con 20) 20 meq BID PO Last administered on 05/13/17 08:36; Admin Dose 20 MEQ; Start 05/04/17 at 21:00 Nalbuphine HCl (Nubain) 10 mg Q4H PRN IV PRURITUS; Start 05/07/17 at 13:30 Ondansetron HCl (Zofran Inj) 4 mg Q6H PRN IV NAUSEA AND/OR VOMITING; Start 05/07/17 at 13:30 Metoprolol Tartrate (Lopressor) 25 mg BID PO Last administered on 05/13/17 08 :35; Admin Dose 25 MG; Start 05/08/17 at 14:00 NGOC GARZA MD May 13, 2017 19:05
[2017-05-14] VITALS (12 sets, daily range): BP systolic 98–129; BP diastolic 52–69; PULSE 90–101; RESP 16–20
[2017-05-14] MEDS: ACCU-CHEK XX SCH (01:01)
[2017-05-14] MEDS: PANTOPRAZOLE (EC) 40 MG TAB PO SCH (05:40)
[2017-05-14] MEDS: AMPICILLIN/SULB 1.5GM/NS (PMX) 50 ML IVPB SCH ×4 (05:40→23:38)
[2017-05-14] MEDS: FUROSEMIDE 20 MG TAB PO SCH ×2 (05:41→17:19)
[2017-05-14] MEDS: Insulin NOVOLOG SS MILD Algorithm (SS with meals and bedtime) SC SCH ×4 (07:25→20:30)
[2017-05-14] MEDS: DOCUSATE SODIUM 100 MG CAP PO SCH ×2 (08:15→20:13)
[2017-05-14] MEDS: LACTOBACILLUS RHAMNOSUS CAP PO SCH ×2 (08:15→20:17)
[2017-05-14] MEDS: METOPROLOL 25 MG TAB PO SCH ×2 (08:15→20:17)
[2017-05-14] MEDS: POTASSIUM CHLORIDE (SR) 20 MEQ TAB PO SCH ×2 (08:15→20:14)
[2017-05-14] MEDS: ENOXAPARIN 30 MG/0.3 ML SYG SC SCH (08:19)
--- NOTE | 2017-05-14 11:09 | CONS ---
Date/Time of Note Date/Time of Note DATE: 05/14/17 TIME: 11:08 Assessment/Plan Assessment/Plan Chief Complaint/Hosp Course - severe sepsis due to pyogenic liver abscess, loculated pleural effusion s/p R thoracotomy, thoracoscopy, total pulmonary decortication on 05/07/2017. Path showed fibrin, necrotic tissue and abscess, no evidence of malignancy. - multiloculated pyogenic liver abscess s/p CT guided drainage catheter placement 04/15/2017, 04/23/2017, s/p repeat drainage 04/27/2017; cultures from gamma hemolytic strep, cultures from 04/23/2017 alpha hemolytic strep - loculated pleural effusion likely secondary to hepatic process/Hepatic hydrothorax, R>L, s/p R thoracentesis on 04/20/2017, s/p chest tube placement on 04/22/2017 - intermittent diarrhea - normocytic anemia requiring blood transfusion - coagulopathy, improved - Transaminitis, improved - Hyponatremia - CoNS in urine culture with trivial pyuria, likely contaminant - Hx of rectal CA s/p Low anterior resection 08/29/2016 - Severe protein calorie malnutrition - allergy to vancomycin recommendations: - follow up CT to be arranged by Dr. Ceballos. will review the result - continue amp/sulbactam (04/18/2017-); s/p linezolid and pip/tazo (04/13-2016). - we recommend long-term (6 weeks at least) antibiotic administration management d/w Pt Problems: Consultation Date/Type/Reason Admit Date/Time Apr 13, 2017 at 19:51 Initial Consult Date 04/21/17 Type of Consultation: ID Referring Provider: DARREL BURT MD 24 HR Interval Summary Constitutional: no complaints Detailed Summary Eyes: no complaints ENT: no complaints Respiratory: no complaints Cardiovascular: no complaints Gastrointestinal: no complaints Genitourinary: no complaints Musculoskeletal: other (pain in R chest with body and UE movement only) Skin: no complaints Neurologic: no complaints Exam/Review of Systems Vital Signs Vitals Vital Signs Date Time Temp Pulse Resp B/P Pulse Ox O2 Delivery O2 Flow Rate FiO2 05/14/17 08:35 98 3.0 05/14/17 08:00 98.7 100 18 98/63 05/14/17 07:30 Nasal Cannula Intake and Output 05/13/17 05/13/17 05/14/17 15:00 23:00 07:00 Intake Total 1300 ml 500 ml Output Total 50 ml 10 ml Balance -50 ml 1290 ml 500 ml Exam Constitutional: alert, oriented, well developed Psych: nl mood/affect, no complaints Head: atraumatic, normocephalic Eyes: nl conjunctiva, nl lids ENMT: nl external ears & nose, nl nasal mucosa & septum Neck: supple Respiratory: diminished breath sounds, other (CT site is dressed) Gastrointestinal: non-tender, other (+external catheter), soft, No distended Musculoskeletal: nl extremities to inspection Extremities: No edema 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: PEER COUNSELOR II-XII intact, 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, nl speech Skin: nl turgor Results Result Diagram: 05/13/17 0701 05/13/17 0701 Results 24 hrs Laboratory Tests Test 05/13/17 12:12 05/13/17 17:35 05/13/17 20:16 05/14/17 08:13 Bedside Glucose 128 126 144 124 Medications Medications Current Medications Miscellaneous Information 1 ea NOTE XX ; Start 04/13/17 at 21:30 Glucose (Glutose) 15 gm Q15M PRN PO DECREASED GLUCOSE; Start 04/13/17 at 21:30 Glucose (Glutose) 22.5 gm Q15M PRN PO DECREASED GLUCOSE; Start 04/13/17 at 21: 30 Dextrose (D50w Syringe) 25 ml Q15M PRN IV DECREASED GLUCOSE; Start 04/13/17 at 21:30 Dextrose (D50w Syringe) 50 ml Q15M PRN IV DECREASED GLUCOSE; Start 04/13/17 at 21:30 Glucagon (Glucagen) 1 mg Q15M PRN IM DECREASED GLUCOSE; Start 04/13/17 at 21:30 Glucose (Glutose) 15 gm Q15M PRN BUCCAL DECREASED GLUCOSE; Start 04/13/17 at 21 :30 Ondansetron HCl (Zofran Inj) 4 mg Q6 PRN IV NAUSEA AND/OR VOMITING Last administered on 04/26/17 20:25; Admin Dose 4 MG; Start 04/13/17 at 21:30 Guaifenesin/ Dextromethorphan (Robitussin Dm Liquid Cup) 5 ml Q4H PRN PO COUGH Last administered on 04/19/17 05:09; Admin Dose 5 ML; Start 04/15/17 at 16:30 Pantoprazole (Protonix Tab) 40 mg DAILY@06 PO Last administered on 05/14/17 05:40; Admin Dose 40 MG; Start 04/17/17 at 06:00 Acetaminophen (Tylenol Tab) 500 mg Q6H PRN PO PAIN AND OR ELEVATED TEMP Last administered on 05/06/17 03:25; Admin Dose 500 MG; Start 04/17/17 at 03:00 Magnesium Hydroxide 30 ml 30 ml DAILY PRN PO CONSTIPATION Last administered on 04/28/17 18:33; Admin Dose 30 ML; Start 04/17/17 at 11:30 Ampicillin Sodium/ Sulbactam Sodium (Unasyn 1.5gm/NS (Pmx)) 50 ml @ 100 mls/hr Q6 IVPB Last administered on 05/14/17 05:40; Admin Dose 100 MLS/HR; Start at 18:00 Fentanyl (Duragesic 12 Mcg/Hr Patch) 1 patch Q72H TRANSDERM Last administered on 05/13/17 06:14; Admin Dose 1 PATCH; Start 04/22/17 at 05:30 Morphine Sulfate (morphine) 1 mg Q4H PRN IV SEVERE PAIN LEVEL 7-10 Last administered on 05/08/17 02:30; Admin Dose 1 MG; Start 04/22/17 at 17:30 Metoclopramide HCl (Reglan) 10 mg Q6H PRN IV NAUSEA Last administered on 20:18; Admin Dose 10 MG; Start 04/22/17 at 21:00 Enoxaparin Sodium (Lovenox) 30 mg DAILY SC Last administered on 05/14/17 08: 19; Admin Dose 30 MG; Start 04/23/17 at 20:30 Acetaminophen (Tylenol Supp) 650 mg Q6H PRN [place] FEVER GREATER THAN 100.6; Start 04/23/17 at 20:30 Acetaminophen (Tylenol Tab) 650 mg Q6H PRN PO PAIN AND OR ELEVATED TEMP Last administered on 05/12/17 15:00; Admin Dose 650 MG; Start 04/23/17 at 20:30 Lactobacillus Acidophilus/ Rhamnosus (Culturelle) 1 cap BID PO Last administered on 10/12/17at 08:15; Admin Dose 1 CAP; Start 04/24/17 at 11:30 Diagnostic Test (Pha) (Accu-Chek) 1 ea 02 XX ; Start 04/26/17 at 02:00 Docusate Sodium (Colace) 100 mg BID PO Last administered on 05/14/17 08:15; Admin Dose 100 MG; Start 04/30/17 at 21:00 Potassium Chloride (Klor-Con 20) 20 meq BID PO Last administered on 05/14/17 08:15; Admin Dose 20 MEQ; Start 05/04/17 at 21:00 Nalbuphine HCl (Nubain) 10 mg Q4H PRN IV PRURITUS; Start 05/07/17 at 13:30 Ondansetron HCl (Zofran Inj) 4 mg Q6H PRN IV NAUSEA AND/OR VOMITING; Start 05/07/17 at 13:30 Metoprolol Tartrate (Lopressor) 25 mg BID PO Last administered on 05/13/17 20 :10; Admin Dose 25 MG; Start 05/08/17 at 14:00 AARON ANSARI M.D. May 14, 2017 11:09
--- NOTE | 2017-05-14 13:25 | RADRPT ---
Vent Rate: 91 bpm RR Interval: [address] Interval: 172 msec QRS Duration: 84 msec QT Interval: 418 msec QTC Interval: 514 msec P-R-T [place]: 67 - 75 - 58 degrees Normal sinus rhythm Prolonged QT Abnormal ECG Electronically Signed By: Gab Knox [id number]
--- NOTE | 2017-05-14 13:53 | CONS ---
Date/Time of Note Date/Time of Note DATE: 05/14/17 TIME: 13:50 Assessment/Plan Assessment/Plan Chief Complaint/Hosp Course IMP: 1.Hypertension- on low side today. ? overdiuresis 2.abnl ecg-negative trop x 3/NL EF by echo. NO CP 3.Liver abscess s/p CT guided drainage 4.H/O lung ca s/p resection with lung nodules by CT? 5.Lung nodules 6. Hyponatremia 7. Effusion s/p VATS/decortication Recc: -tele -s/p VATS/decortication -Continue abx's -F/U cx data -Continue BB -pain control -Continue lasix PO and follow volume status closely with probable need to decrease dose of lasix tomorrow Problems: Consultation Date/Type/Reason Admit Date/Time Apr 13, 2017 at 19:51 Initial Consult Date 04/13/17 Type of Consultation: cardiology Reason for Consultation Chest pain Referring Provider: DARREL BURT MD Exam/Review of Systems Vital Signs Vitals Vital Signs Date Time Temp Pulse Resp B/P Pulse Ox O2 Delivery O2 Flow Rate FiO2 05/14/17 12:43 Nasal Cannula 3.0 05/14/17 12:00 95 05/14/17 11:27 98.4 16 108/66 97 Intake and Output 05/13/17 05/13/17 05/14/17 15:00 23:00 07:00 Intake Total 1300 ml 500 ml Output Total 50 ml 10 ml Balance -50 ml 1290 ml 500 ml Exam Review of Systems: CONSTITUTIONAL: No fevers, chills. PULMONARY: mild sob CARDIOVASCULAR: No chest pain/palpitations GASTROINTESTINAL: No nausea/vomiting. GENITOURINARY: No hematuria/dysuria. MUSCULOSKELETAL: No myagias/arthalgias. PSYCHIATRIC: The patient denies depression. NEUROLOGIC: MIld generalized weakness Constitutional: alert, oriented Psych: no complaints Head: normocephalic ENMT: mucosa pink and moist Neck: jvd (9 cm water), supple Respiratory: diminished breath sounds (at bases/B) Cardiovascular: regular rate and rhythm Gastrointestinal: non-tender, soft Musculoskeletal: muscle weakness (mild generalized) Extremities: edema (nonr) 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: lethargic Results Result Diagram: 05/13/17 0701 05/13/17 0701 Results 24 hrs Laboratory Tests Test 05/13/17 17:35 05/13/17 20:16 05/14/17 08:13 05/14/17 12:11 Bedside Glucose 126 144 124 133 Medications Medications Current Medications Miscellaneous Information 1 ea NOTE XX ; Start 04/13/17 at 21:30 Glucose (Glutose) 15 gm Q15M PRN PO DECREASED GLUCOSE; Start 04/13/17 at 21:30 Glucose (Glutose) 22.5 gm Q15M PRN PO DECREASED GLUCOSE; Start 04/13/17 at 21: 30 Dextrose (D50w Syringe) 25 ml Q15M PRN IV DECREASED GLUCOSE; Start 04/13/17 at 21:30 Dextrose (D50w Syringe) 50 ml Q15M PRN IV DECREASED GLUCOSE; Start 04/13/17 at 21:30 Glucagon (Glucagen) 1 mg Q15M PRN IM DECREASED GLUCOSE; Start 04/13/17 at 21:30 Glucose (Glutose) 15 gm Q15M PRN BUCCAL DECREASED GLUCOSE; Start 04/13/17 at 21 :30 Ondansetron HCl (Zofran Inj) 4 mg Q6 PRN IV NAUSEA AND/OR VOMITING Last administered on 04/26/17 20:25; Admin Dose 4 MG; Start 04/13/17 at 21:30 Guaifenesin/ Dextromethorphan (Robitussin Dm Liquid Cup) 5 ml Q4H PRN PO COUGH Last administered on 04/19/17 05:09; Admin Dose 5 ML; Start 04/15/17 at 16:30 Pantoprazole (Protonix Tab) 40 mg DAILY@06 PO Last administered on 05/14/17 05:40; Admin Dose 40 MG; Start 04/17/17 at 06:00 Acetaminophen (Tylenol Tab) 500 mg Q6H PRN PO PAIN AND OR ELEVATED TEMP Last administered on 05/06/17 03:25; Admin Dose 500 MG; Start 04/17/17 at 03:00 Magnesium Hydroxide 30 ml 30 ml DAILY PRN PO CONSTIPATION Last administered on 04/28/17 18:33; Admin Dose 30 ML; Start 04/17/17 at 11:30 Ampicillin Sodium/ Sulbactam Sodium (Unasyn 1.5gm/NS (Pmx)) 50 ml @ 100 mls/hr Q6 IVPB Last administered on 05/14/17 12:15; Admin Dose 100 MLS/HR; Start at 18:00 Fentanyl (Duragesic 12 Mcg/Hr Patch) 1 patch Q72H TRANSDERM Last administered on 05/13/17 06:14; Admin Dose 1 PATCH; Start 04/22/17 at 05:30 Morphine Sulfate (morphine) 1 mg Q4H PRN IV SEVERE PAIN LEVEL 7-10 Last administered on 05/08/17 02:30; Admin Dose 1 MG; Start 04/22/17 at 17:30 Metoclopramide HCl (Reglan) 10 mg Q6H PRN IV NAUSEA Last administered on 20:18; Admin Dose 10 MG; Start 04/22/17 at 21:00 Enoxaparin Sodium (Lovenox) 30 mg DAILY SC Last administered on 05/14/17 08: 19; Admin Dose 30 MG; Start 04/23/17 at 20:30 Acetaminophen (Tylenol Supp) 650 mg Q6H PRN [place] FEVER GREATER THAN 100.6; Start 04/23/17 at 20:30 Acetaminophen (Tylenol Tab) 650 mg Q6H PRN PO PAIN AND OR ELEVATED TEMP Last administered on 05/12/17 15:00; Admin Dose 650 MG; Start 04/23/17 at 20:30 Lactobacillus Acidophilus/ Rhamnosus (Culturelle) 1 cap BID PO Last administered on 05/14/17 08:15; Admin Dose 1 CAP; Start 04/24/17 at 11:30 Diagnostic Test (Pha) (Accu-Chek) 1 ea 02 XX ; Start 04/26/17 at 02:00 Docusate Sodium (Colace) 100 mg BID PO Last administered on 05/14/17 08:15; Admin Dose 100 MG; Start 04/30/17 at 21:00 Potassium Chloride (Klor-Con 20) 20 meq BID PO Last administered on 05/14/17 08:15; Admin Dose 20 MEQ; Start 05/04/17 at 21:00 Nalbuphine HCl (Nubain) 10 mg Q4H PRN IV PRURITUS; Start 05/07/17 at 13:30 Ondansetron HCl (Zofran Inj) 4 mg Q6H PRN IV NAUSEA AND/OR VOMITING; Start 10/ 5/17 at 13:30 Metoprolol Tartrate (Lopressor) 25 mg BID PO Last administered on 05/13/17t 20 :10; Admin Dose 25 MG; Start 05/08/17 at 14:00 LILIANA BARKSDALE May 14, 2017 13:53
--- NOTE | 2017-05-14 15:57 | PN ---
Date/Time of Note Date/Time of Note DATE: 05/14/17 TIME: 15:56 Assessment/Plan VTE Prophylaxis VTE Prophylaxis Intervention: SCD's Lines/Catheters IV [facility]ter [facility]from [facility] Peripheral IV Urinary Cath still in place: No Assessment/Plan Assessment/Plan - Bilateral pleural effusions right more than left, status post right thoracentesis 04/20. S/p right chest tube insertion on 04/[address] Jackson, vascular surgery. S/p right thoracentesis 04/26. S/P Right VATS decortication on 05/07. CT removed 05/12. - Acute respiratory failure secondary to #1, Dr. Damico is following in pulmonology consultation continue oxygen oxygen supplementation - Severe sepsis 2/2 to liver abscess, resolving. Continue antibiotics per ID. is following in infection disease consultation - Liver abscess unchanged per recent CT, s/p CT guided drainage 04/15/2017, s/p CT guided percutaneous drainage of liver abscess 04/23, status post CT-guided liver abscess drainage 04/27 - Normocytic anemia requiring blood transfusion - Hx of rectal CA s/p Low anterior resection 08/29/2016 Further recommendations based on clinical course. Plan of care discussed with Dr. Dior Subjective 24 Hr Interval Summary Respiratory: pain (at CT insertionn site) Cardiovascular: no complaints Exam/Review of Systems Vital Signs Vitals Vital Signs Date Time Temp Pulse Resp B/P Pulse Ox O2 Delivery O2 Flow Rate FiO2 05/14/17 15:44 98.0 95 16 99/58 97 05/14/17 15:39 Nasal Cannula 3.0 Intake and Output 05/13/17 05/13/17 05/14/17 15:00 23:00 07:00 Intake Total 1300 ml 500 ml Output Total 50 ml 10 ml Balance -50 ml 1290 ml 500 ml Exam Constitutional: alert, oriented Respiratory: diminished breath sounds Cardiovascular: nl pulses, regular rate and rhythm Musculoskeletal: nl extremities to inspection Extremities: normal pulses 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: 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, nl speech Results Result Diagram: 05/13/17 0701 05/13/17 0701 Results 24 hrs Laboratory Tests Test 05/13/17 17:35 05/13/17 20:16 05/14/17 08:13 05/14/17 12:11 Bedside Glucose 126 144 124 133 Medications Medications Current Medications Miscellaneous Information 1 ea NOTE XX ; Start 04/13/17 at 21:30 Glucose (Glutose) 15 gm Q15M PRN PO DECREASED GLUCOSE; Start 04/13/17 at 21:30 Glucose (Glutose) 22.5 gm Q15M PRN PO DECREASED GLUCOSE; Start 04/13/17 at 21: 30 Dextrose (D50w Syringe) 25 ml Q15M PRN IV DECREASED GLUCOSE; Start 04/13/17 at 21:30 Dextrose (D50w Syringe) 50 ml Q15M PRN IV DECREASED GLUCOSE; Start 04/13/17 at 21:30 Glucagon (Glucagen) 1 mg Q15M PRN IM DECREASED GLUCOSE; Start 04/13/17 at 21:30 Glucose (Glutose) 15 gm Q15M PRN BUCCAL DECREASED GLUCOSE; Start 04/13/17 at 21 :30 Ondansetron HCl (Zofran Inj) 4 mg Q6 PRN IV NAUSEA AND/OR VOMITING Last administered on 04/26/17 20:25; Admin Dose 4 MG; Start 04/13/17 at 21:30 Guaifenesin/ Dextromethorphan (Robitussin Dm Liquid Cup) 5 ml Q4H PRN PO COUGH Last administered on 04/19/17 05:09; Admin Dose 5 ML; Start 04/15/17 at 16:30 Pantoprazole (Protonix Tab) 40 mg DAILY@06 PO Last administered on 05/14/17 05:40; Admin Dose 40 MG; Start 04/17/17 at 06:00 Acetaminophen (Tylenol Tab) 500 mg Q6H PRN PO PAIN AND OR ELEVATED TEMP Last administered on 05/06/17 03:25; Admin Dose 500 MG; Start 04/17/17 at 03:00 Magnesium Hydroxide 30 ml 30 ml DAILY PRN PO CONSTIPATION Last administered on 04/28/17 18:33; Admin Dose 30 ML; Start 04/17/17 at 11:30 Ampicillin Sodium/ Sulbactam Sodium (Unasyn 1.5gm/NS (Pmx)) 50 ml @ 100 mls/hr Q6 IVPB Last administered on 05/14/17 12:15; Admin Dose 100 MLS/HR; Start at 18:00 Fentanyl (Duragesic 12 Mcg/Hr Patch) 1 patch Q72H TRANSDERM Last administered on 05/13/17 06:14; Admin Dose 1 PATCH; Start 04/22/17 at 05:30 Morphine Sulfate (morphine) 1 mg Q4H PRN IV SEVERE PAIN LEVEL 7-10 Last administered on 05/08/17 02:30; Admin Dose 1 MG; Start 04/22/17 at 17:30 Metoclopramide HCl (Reglan) 10 mg Q6H PRN IV NAUSEA Last administered on 20:18; Admin Dose 10 MG; Start 04/22/17 at 21:00 Enoxaparin Sodium (Lovenox) 30 mg DAILY SC Last administered on 05/14/17 08: 19; Admin Dose 30 MG; Start 04/23/17 at 20:30 Acetaminophen (Tylenol Supp) 650 mg Q6H PRN [place] FEVER GREATER THAN 100.6; Start 04/23/17 at 20:30 Acetaminophen (Tylenol Tab) 650 mg Q6H PRN PO PAIN AND OR ELEVATED TEMP Last administered on 05/12/17 15:00; Admin Dose 650 MG; Start 04/23/17 at 20:30 Lactobacillus Acidophilus/ Rhamnosus (Culturelle) 1 cap BID PO Last administered on 05/14/17 08:15; Admin Dose 1 CAP; Start 04/24/17 at 11:30 Diagnostic Test (Pha) (Accu-Chek) 1 ea 02 XX ; Start 04/26/17 at 02:00 Docusate Sodium (Colace) 100 mg BID PO Last administered on 05/14/17 08:15; Admin Dose 100 MG; Start 04/30/17 at 21:00 Potassium Chloride (Klor-Con 20) 20 meq BID PO Last administered on 05/14/17 08:15; Admin Dose 20 MEQ; Start 05/04/17 at 21:00 Nalbuphine HCl (Nubain) 10 mg Q4H PRN IV PRURITUS; Start 05/07/17 at 13:30 Ondansetron HCl (Zofran Inj) 4 mg Q6H PRN IV NAUSEA AND/OR VOMITING; Start 05/07/17 at 13:30 Metoprolol Tartrate (Lopressor) 25 mg BID PO Last administered on 05/13/17 20 :10; Admin Dose 25 MG; Start 05/08/17 at 14:00 MESHA VELASQUEZ May 14, 2017 15:57
--- NOTE | 2017-05-14 17:06 | PN ---
DATE: 05/14/2017 SUBJECTIVE: No complaint. No nausea, no vomiting, minimal chest pain, no abdominal pain, has tolerated his diet, has had bowel movements. OBJECTIVE: GENERAL: Awake, alert, oriented x3. VITAL SIGNS: Temperature 98.4, heart rate 95 and regular, respirations 16, blood pressure 99/58, saturation 97% on 3 liters nasal cannula. HEART: Regular. LUNGS: Decreased breathing sounds on the right side base. ABDOMEN: Soft. No tenderness. Bowel sound is present. LABORATORY DATA: No labs today. IMAGING: No chest x-ray today. DRAINAGE: The only drainage is the pigtail drain which is in the liver abscess cavity. It has drained in the past 24 hours only 10 mL, which is serous in color. ASSESSMENT: A 66-year-old with sepsis and liver abscess, was admitted about 4 weeks ago. The liver abscess has been taken care of mainly by percutaneous drainage via the pigtail drains. At this time she only has one left in the abscess cavity, which is draining only minimal amount of serous fluid. The patient's leukocyte count is normal, afebrile. The patient developed pleural effusion which was drained a couple of times percutaneously but was not properly successful, so eventually chest tube was placed and that was not successful due to loculation, eventually VATS and decortication was done. PLAN: I had ordered a CT scan of the abdomen with IV contrast for today, but because the patient is on the telemetry floor and is under the monitor, they could not do it and they were looking to find on the monitor indication to bring the patient down, so if they find it they are going to do it today. Otherwise, they can transfer the patient out of telemetry and monitoring system and hopefully by tomorrow, Thursday, we will get the CT scan done. Dictated By: JOHN JUSTIN/KT Conf#: [id number] DID#: [id number] MTDD
--- NOTE | 2017-05-14 20:41 | CONS ---
Date/Time of Note Date/Time of Note DATE: 05/14/17 TIME: 20:40 Assessment/Plan Assessment/Plan Chief Complaint/Hosp Course Problems: Additional Assessment/Plan 1. Bilateral pleural effusions right more than left, status post right thoracentesis 04/20. S/p right chest tube insertion on 04/[address] Jackson, vascular surgery. S/p right thoracentesis 04/26. - s/p Right VATS decortication 05/07/2017 2. Acute hyponatremia 2/2 Hypovolemic hyponatremia - Resolved 2. sepsis due to liver abscess 3. Hepatic abscess oN CT scan s/p CT guided drainage on 04/15/17 and 04/23/17 4. Acute transaminitis 5. h/o Colon CA s/p previous Surgery 6. Hypokalemia 7. acute resp failiue due to # 1 8. hypomagnesemia Plan : S/p Right VATS decortication, chest tube discontinued CXR much improved after surgery, small pleural effusion , conitnue lasix 20mg pO BID, no chemistry today to review yet IV abx as per ID, renally dose all abx pulmonary ID and G surgery has been following on patient will follow up Consultation Date/Type/Reason Admit Date/Time Apr 13, 2017 at 19:51 Initial Consult Date 04/13/17 Type of Consultation: NEPHROLOGY Referring Provider: DARREL BURT MD 24 HR Interval Summary Free Text/Dictation NO chemistry today, BP stable, afebrile Exam/Review of Systems Vital Signs Vitals Vital Signs Date Time Temp Pulse Resp B/P Pulse Ox O2 Delivery O2 Flow Rate FiO2 05/14/17 20:28 94 05/14/17 19:47 97.9 19 114/52 94 05/14/17 17:45 3.0 05/14/17 15:39 Nasal Cannula Intake and Output 05/13/17 05/13/17 05/14/17 15:00 23:00 07:00 Intake Total 1300 ml 500 ml Output Total 50 ml 10 ml Balance -50 ml 1290 ml 500 ml Results Result Diagram: 05/13/17 0701 05/13/17 0701 Results 24 hrs Laboratory Tests Test 05/14/17 08:13 05/14/17 12:11 05/14/17 17:16 Bedside Glucose 124 133 113 Medications Medications Current Medications Miscellaneous Information 1 ea NOTE XX ; Start 04/13/17 at 21:30 Glucose (Glutose) 15 gm Q15M PRN PO DECREASED GLUCOSE; Start 04/13/17 at 21:30 Glucose (Glutose) 22.5 gm Q15M PRN PO DECREASED GLUCOSE; Start 04/13/17 at 21: 30 Dextrose (D50w Syringe) 25 ml Q15M PRN IV DECREASED GLUCOSE; Start 04/13/17 at 21:30 Dextrose (D50w Syringe) 50 ml Q15M PRN IV DECREASED GLUCOSE; Start 04/13/17 at 21:30 Glucagon (Glucagen) 1 mg Q15M PRN IM DECREASED GLUCOSE; Start 04/13/17 at 21:30 Glucose (Glutose) 15 gm Q15M PRN BUCCAL DECREASED GLUCOSE; Start 04/13/17 at 21 :30 Ondansetron HCl (Zofran Inj) 4 mg Q6 PRN IV NAUSEA AND/OR VOMITING Last administered on 04/26/17 20:25; Admin Dose 4 MG; Start 04/13/17 at 21:30 Guaifenesin/ Dextromethorphan (Robitussin Dm Liquid Cup) 5 ml Q4H PRN PO COUGH Last administered on 04/19/17 05:09; Admin Dose 5 ML; Start 04/15/17 at 16:30 Pantoprazole (Protonix Tab) 40 mg DAILY@06 PO Last administered on 05/14/17 05:40; Admin Dose 40 MG; Start 04/17/17 at 06:00 Acetaminophen (Tylenol Tab) 500 mg Q6H PRN PO PAIN AND OR ELEVATED TEMP Last administered on 05/06/17 03:25; Admin Dose 500 MG; Start 04/17/17 at 03:00 Magnesium Hydroxide 30 ml 30 ml DAILY PRN PO CONSTIPATION Last administered on 04/28/17 18:33; Admin Dose 30 ML; Start 04/17/17 at 11:30 Ampicillin Sodium/ Sulbactam Sodium (Unasyn 1.5gm/NS (Pmx)) 50 ml @ 100 mls/hr Q6 IVPB Last administered on 05/14/17 17:19; Admin Dose 100 MLS/HR; Start at 18:00 Fentanyl (Duragesic 12 Mcg/Hr Patch) 1 patch Q72H TRANSDERM Last administered on 05/13/17 06:14; Admin Dose 1 PATCH; Start 04/22/17 at 05:30 Morphine Sulfate (morphine) 1 mg Q4H PRN IV SEVERE PAIN LEVEL 7-10 Last administered on 05/08/17 02:30; Admin Dose 1 MG; Start 04/22/17 at 17:30 Metoclopramide HCl (Reglan) 10 mg Q6H PRN IV NAUSEA Last administered on 20:18; Admin Dose 10 MG; Start 04/22/17 at 21:00 Enoxaparin Sodium (Lovenox) 30 mg DAILY SC Last administered on 05/14/17 08: 19; Admin Dose 30 MG; Start 04/23/17 at 20:30 Acetaminophen (Tylenol Supp) 650 mg Q6H PRN [place] FEVER GREATER THAN 100.6; Start 04/23/17 at 20:30 Acetaminophen (Tylenol Tab) 650 mg Q6H PRN PO PAIN AND OR ELEVATED TEMP Last administered on 05/12/17 15:00; Admin Dose 650 MG; Start 04/23/17 at 20:30 Lactobacillus Acidophilus/ Rhamnosus (Culturelle) 1 cap BID PO Last administered on 05/14/17 20:17; Admin Dose 1 CAP; Start 04/24/17 at 11:30 Diagnostic Test (Pha) (Accu-Chek) 1 ea 02 XX ; Start 04/26/17 at 02:00 Docusate Sodium (Colace) 100 mg BID PO Last administered on 05/14/17 20:13; Admin Dose 100 MG; Start 04/30/17 at 21:00 Potassium Chloride (Klor-Con 20) 20 meq BID PO Last administered on 05/14/17 20:14; Admin Dose 20 MEQ; Start 05/04/17 at 21:00 Nalbuphine HCl (Nubain) 10 mg Q4H PRN IV PRURITUS; Start 05/07/17 at 13:30 Ondansetron HCl (Zofran Inj) 4 mg Q6H PRN IV NAUSEA AND/OR VOMITING; Start 05/07/17 at 13:30 Metoprolol Tartrate (Lopressor) 25 mg BID PO Last administered on 05/14/17 20 :17; Admin Dose 25 MG; Start 05/08/17 at 14:00 NGOC GARZA MD May 14, 2017 20:41
[2017-05-15] VITALS (13 sets, daily range): BP systolic 101–115; BP diastolic 57–86; PULSE 82–93; RESP 17–20
[2017-05-15] MEDS: ACCU-CHEK XX SCH (01:40)
[2017-05-15] MEDS: AMPICILLIN/SULB 1.5GM/NS (PMX) 50 ML IVPB SCH ×4 (06:08→23:57)
[2017-05-15] MEDS: FUROSEMIDE 20 MG TAB PO SCH ×2 (06:11→18:07)
[2017-05-15] MEDS: PANTOPRAZOLE (EC) 40 MG TAB PO SCH (06:11)
[2017-05-15] MEDS: Insulin NOVOLOG SS MILD Algorithm (SS with meals and bedtime) SC SCH ×4 (07:25→21:00)
[2017-05-15] MEDS: POTASSIUM CHLORIDE (SR) 20 MEQ TAB PO SCH ×2 (07:51→21:03)
[2017-05-15] MEDS: LACTOBACILLUS RHAMNOSUS CAP PO SCH ×2 (07:51→21:04)
[2017-05-15] MEDS: DOCUSATE SODIUM 100 MG CAP PO SCH ×2 (07:52→21:03)
[2017-05-15] MEDS: METOPROLOL 25 MG TAB PO SCH ×2 (07:52→21:04)
[2017-05-15] MEDS: ENOXAPARIN 30 MG/0.3 ML SYG SC SCH (07:57)
--- NOTE | 2017-05-15 09:32 | CONS ---
Date/Time of Note Date/Time of Note DATE: 05/15/17 TIME: 09:29 Assessment/Plan Assessment/Plan Chief Complaint/Hosp Course - severe sepsis due to pyogenic liver abscess, loculated pleural effusion s/p R thoracotomy, thoracoscopy, total pulmonary decortication on 05/07/2017. Path showed fibrin, necrotic tissue and abscess, no evidence of malignancy. - multiloculated pyogenic liver abscess s/p CT guided drainage catheter placement 04/15/2017, 04/23/2017, s/p repeat drainage 04/27/2017; cultures from gamma hemolytic strep, cultures from 04/23/2017 alpha hemolytic strep - loculated pleural effusion likely secondary to hepatic process/Hepatic hydrothorax, R>L, s/p R thoracentesis on 04/20/2017, s/p chest tube placement on 04/22/2017 - intermittent diarrhea - normocytic anemia requiring blood transfusion - coagulopathy, improved - Transaminitis, improved - Hyponatremia - CoNS in urine culture with trivial pyuria, likely contaminant - Hx of rectal CA s/p Low anterior resection 08/29/2016 - Severe protein calorie malnutrition - allergy to vancomycin recommendations: - follow up CT to be arranged by Dr. Ceballos. will review the result - continue amp/sulbactam (04/18/2017-); s/p linezolid and pip/tazo (04/13-2016). monitor at least weekly CBC and BMP while PT's on long-term antibiotic - we recommend long-term (6 weeks at least) antibiotic administration management d/w Pt Problems: Consultation Date/Type/Reason Admit Date/Time Apr 13, 2017 at 19:51 Initial Consult Date 04/21/17 Type of Consultation: ID Referring Provider: DARREL BURT MD 24 HR Interval Summary Constitutional: improved Detailed Summary Eyes: no complaints ENT: no complaints Respiratory: pain (on R chest only with body and arm movement), No cough, No shortness of breath Cardiovascular: no complaints Gastrointestinal: no complaints Genitourinary: no complaints Musculoskeletal: no complaints Skin: no complaints Neurologic: no complaints Exam/Review of Systems Vital Signs Vitals Vital Signs Date Time Temp Pulse Resp B/P Pulse Ox O2 Delivery O2 Flow Rate FiO2 05/15/17 08:33 88 05/15/17 08:30 Nasal Cannula 2.0 05/15/17 07:56 98.3 20 109/86 99 Intake and Output 05/14/17 05/14/17 05/15/17 15:00 23:00 07:00 Intake Total 700 ml 470 ml Output Total 5 ml 5 ml 900 ml Balance -5 ml 695 ml -430 ml Exam Constitutional: alert, oriented, well developed Psych: nl mood/affect, no complaints Head: atraumatic, normocephalic Eyes: nl conjunctiva, nl lids ENMT: nl external ears & nose, nl nasal mucosa & septum Neck: supple Respiratory: diminished breath sounds, other (R chest wall wound is dressed) Cardiovascular: nl pulses, regular rate and rhythm Gastrointestinal: non-tender, other (+external drainage catheter collecting sediment and serosanguinous cloudy fluid), soft Musculoskeletal: nl extremities to inspection Extremities: No edema Results Result Diagram: 05/13/17 0701 05/13/17 0701 Results 24 hrs Laboratory Tests Test 05/14/17 12:11 05/14/17 17:16 05/14/17 20:21 05/15/17 07:40 Bedside Glucose 133 113 151 126 Medications Medications Current Medications Miscellaneous Information 1 ea NOTE XX ; Start 04/13/17 at 21:30 Glucose (Glutose) 15 gm Q15M PRN PO DECREASED GLUCOSE; Start 04/13/17 at 21:30 Glucose (Glutose) 22.5 gm Q15M PRN PO DECREASED GLUCOSE; Start 04/13/17 at 21: 30 Dextrose (D50w Syringe) 25 ml Q15M PRN IV DECREASED GLUCOSE; Start 04/13/17 at 21:30 Dextrose (D50w Syringe) 50 ml Q15M PRN IV DECREASED GLUCOSE; Start 04/13/17 at 21:30 Glucagon (Glucagen) 1 mg Q15M PRN IM DECREASED GLUCOSE; Start 04/13/17 at 21:30 Glucose (Glutose) 15 gm Q15M PRN BUCCAL DECREASED GLUCOSE; Start 04/13/17 at 21 :30 Ondansetron HCl (Zofran Inj) 4 mg Q6 PRN IV NAUSEA AND/OR VOMITING Last administered on 04/26/17t 20:25; Admin Dose 4 MG; Start 04/13/17 at 21:30 Guaifenesin/ Dextromethorphan (Robitussin Dm Liquid Cup) 5 ml Q4H PRN PO COUGH Last administered on 04/19/17 05:09; Admin Dose 5 ML; Start 04/15/17 at 16:30 Pantoprazole (Protonix Tab) 40 mg DAILY@06 PO Last administered on 05/15/17 06:11; Admin Dose 40 MG; Start 04/17/17 at 06:00 Acetaminophen (Tylenol Tab) 500 mg Q6H PRN PO PAIN AND OR ELEVATED TEMP Last administered on 05/06/17 03:25; Admin Dose 500 MG; Start 04/17/17 at 03:00 Magnesium Hydroxide 30 ml 30 ml DAILY PRN PO CONSTIPATION Last administered on 04/28/17 18:33; Admin Dose 30 ML; Start 04/17/17 at 11:30 Ampicillin Sodium/ Sulbactam Sodium (Unasyn 1.5gm/NS (Pmx)) 50 ml @ 100 mls/hr Q6 IVPB Last administered on 05/15/17 06:08; Admin Dose 100 MLS/HR; Start at 18:00 Fentanyl (Duragesic 12 Mcg/Hr Patch) 1 patch Q72H TRANSDERM Last administered on 05/13/17 06:14; Admin Dose 1 PATCH; Start 04/22/17 at 05:30 Morphine Sulfate (morphine) 1 mg Q4H PRN IV SEVERE PAIN LEVEL 7-10 Last administered on 05/08/17 02:30; Admin Dose 1 MG; Start 04/22/17 at 17:30 Metoclopramide HCl (Reglan) 10 mg Q6H PRN IV NAUSEA Last administered on 20:18; Admin Dose 10 MG; Start 04/22/17 at 21:00 Enoxaparin Sodium (Lovenox) 30 mg DAILY SC Last administered on 05/15/17 07: 57; Admin Dose 30 MG; Start 04/23/17 at 20:30 Acetaminophen (Tylenol Supp) 650 mg Q6H PRN [place] FEVER GREATER THAN 100.6; Start 04/23/17 at 20:30 Acetaminophen (Tylenol Tab) 650 mg Q6H PRN PO PAIN AND OR ELEVATED TEMP Last administered on 05/12/17 15:00; Admin Dose 650 MG; Start 04/23/17 at 20:30 Lactobacillus Acidophilus/ Rhamnosus (Culturelle) 1 cap BID PO Last administered on 05/15/17 07:51; Admin Dose 1 CAP; Start 04/24/17 at 11:30 Diagnostic Test (Pha) (Accu-Chek) 1 ea 02 XX ; Start 04/26/17 at 02:00 Docusate Sodium (Colace) 100 mg BID PO Last administered on 05/15/17 07:52; Admin Dose 100 MG; Start 04/30/17 at 21:00 Potassium Chloride (Klor-Con 20) 20 meq BID PO Last administered on 05/15/17 07:51; Admin Dose 20 MEQ; Start 05/04/17 at 21:00 Nalbuphine HCl (Nubain) 10 mg Q4H PRN IV PRURITUS; Start 05/07/17 at 13:30 Ondansetron HCl (Zofran Inj) 4 mg Q6H PRN IV NAUSEA AND/OR VOMITING; Start 05/07/17 at 13:30 Metoprolol Tartrate (Lopressor) 25 mg BID PO Last administered on 05/15/17 07 :52; Admin Dose 25 MG; Start 05/08/17 at 14:00 AARON ANSARI M.D. May 15, 2017 09:31
--- NOTE | 2017-05-15 13:33 | PN ---
Date/Time of Note Date/Time of Note DATE: 05/15/17 TIME: 13:31 Assessment/Plan VTE Prophylaxis VTE Prophylaxis Intervention: SCD's Lines/Catheters IV [facility]ter Type (from [facility]): Peripheral IV Urinary Cath still in place: No Assessment/Plan Chief Complaint/Hosp Course Patient is stable, plan for CT of the abdomen for evaluation of liver abscess this week. Assessment/Plan - Bilateral pleural effusions right more than left, status post right thoracentesis 04/20. S/p right chest tube insertion on 04/[address] Jackson, vascular surgery. S/p right thoracentesis 04/26. S/P Right VATS decortication on 05/07. CT removed 05/12. - Acute respiratory failure secondary to #1, Dr. Damico is following in pulmonology consultation continue oxygen oxygen supplementation - Severe sepsis 2/2 to liver abscess, resolving. Continue antibiotics per ID. is following in infection disease consultation - Liver abscess unchanged per recent CT, s/p CT guided drainage 04/15/2017, s/p CT guided percutaneous drainage of liver abscess 04/23, status post CT-guided liver abscess drainage 04/27 - Normocytic anemia requiring blood transfusion - Hx of rectal CA s/p Low anterior resection 08/29/2016 Further recommendations based on clinical course. Plan of care discussed with Dr. Dior Problems: Exam/Review of Systems Vital Signs Vitals Vital Signs Date Time Temp Pulse Resp B/P Pulse Ox O2 Delivery O2 Flow Rate FiO2 05/15/17 12:17 93 05/15/17 12:00 Nasal Cannula 1.0 05/15/17 11:38 98.0 20 104/59 97 Intake and Output 05/14/17 05/14/17 05/15/17 15:00 23:00 07:00 Intake Total 700 ml 470 ml Output Total 5 ml 5 ml 900 ml Balance -5 ml 695 ml -430 ml Exam Constitutional: alert, oriented Neck: supple Respiratory: normal air movement Cardiovascular: nl pulses Gastrointestinal: non-tender, other (Hepatic drain), soft Extremities: normal pulses Results Result Diagram: 05/13/17 0701 05/13/17 0701 Results 24 hrs Laboratory Tests Test 05/14/17 17:16 05/14/17 20:21 05/15/17 07:40 05/15/17 11:33 Bedside Glucose 113 151 126 146 Medications Medications Current Medications Miscellaneous Information 1 ea NOTE XX ; Start 04/13/17 at 21:30 Glucose (Glutose) 15 gm Q15M PRN PO DECREASED GLUCOSE; Start 04/13/17 at 21:30 Glucose (Glutose) 22.5 gm Q15M PRN PO DECREASED GLUCOSE; Start 04/13/17 at 21: 30 Dextrose (D50w Syringe) 25 ml Q15M PRN IV DECREASED GLUCOSE; Start 04/13/17 at 21:30 Dextrose (D50w Syringe) 50 ml Q15M PRN IV DECREASED GLUCOSE; Start 04/13/17 at 21:30 Glucagon (Glucagen) 1 mg Q15M PRN IM DECREASED GLUCOSE; Start 04/13/17 at 21:30 Glucose (Glutose) 15 gm Q15M PRN BUCCAL DECREASED GLUCOSE; Start 04/13/17 at 21 :30 Ondansetron HCl (Zofran Inj) 4 mg Q6 PRN IV NAUSEA AND/OR VOMITING Last administered on 04/26/17 20:25; Admin Dose 4 MG; Start 04/13/17 at 21:30 Guaifenesin/ Dextromethorphan (Robitussin Dm Liquid Cup) 5 ml Q4H PRN PO COUGH Last administered on 04/19/17 05:09; Admin Dose 5 ML; Start 04/15/17 at 16:30 Pantoprazole (Protonix Tab) 40 mg DAILY@06 PO Last administered on 05/15/17 06:11; Admin Dose 40 MG; Start 04/17/17 at 06:00 Acetaminophen (Tylenol Tab) 500 mg Q6H PRN PO PAIN AND OR ELEVATED TEMP Last administered on 05/06/17 03:25; Admin Dose 500 MG; Start 04/17/17 at 03:00 Magnesium Hydroxide 30 ml 30 ml DAILY PRN PO CONSTIPATION Last administered on 04/28/17 18:33; Admin Dose 30 ML; Start 04/17/17 at 11:30 Ampicillin Sodium/ Sulbactam Sodium (Unasyn 1.5gm/NS (Pmx)) 50 ml @ 100 mls/hr Q6 IVPB Last administered on 05/15/17 11:45; Admin Dose 100 MLS/HR; Start at 18:00 Fentanyl (Duragesic 12 Mcg/Hr Patch) 1 patch Q72H TRANSDERM Last administered on 05/13/17 06:14; Admin Dose 1 PATCH; Start 04/22/17 at 05:30 Morphine Sulfate (morphine) 1 mg Q4H PRN IV SEVERE PAIN LEVEL 7-10 Last administered on 05/08/17 02:30; Admin Dose 1 MG; Start 04/22/17 at 17:30 Metoclopramide HCl (Reglan) 10 mg Q6H PRN IV NAUSEA Last administered on 20:18; Admin Dose 10 MG; Start 04/22/17 at 21:00 Enoxaparin Sodium (Lovenox) 30 mg DAILY SC Last administered on 05/15/17 07: 57; Admin Dose 30 MG; Start 04/23/17 at 20:30 Acetaminophen (Tylenol Supp) 650 mg Q6H PRN [place] FEVER GREATER THAN 100.6; Start 04/23/17 at 20:30 Acetaminophen (Tylenol Tab) 650 mg Q6H PRN PO PAIN AND OR ELEVATED TEMP Last administered on 05/12/17 15:00; Admin Dose 650 MG; Start 04/23/17 at 20:30 Lactobacillus Acidophilus/ Rhamnosus (Culturelle) 1 cap BID PO Last administered on 05/15/17 07:51; Admin Dose 1 CAP; Start 04/24/17 at 11:30 Diagnostic Test (Pha) (Accu-Chek) 1 ea 02 XX ; Start 04/26/17 at 02:00 Docusate Sodium (Colace) 100 mg BID PO Last administered on 05/15/17 07:52; Admin Dose 100 MG; Start 04/30/17 at 21:00 Potassium Chloride (Klor-Con 20) 20 meq BID PO Last administered on 05/15/17 07:51; Admin Dose 20 MEQ; Start 05/04/17 at 21:00 Nalbuphine HCl (Nubain) 10 mg Q4H PRN IV PRURITUS; Start 05/07/17 at 13:30 Ondansetron HCl (Zofran Inj) 4 mg Q6H PRN IV NAUSEA AND/OR VOMITING; Start 05/07/17 at 13:30 Metoprolol Tartrate (Lopressor) 25 mg BID PO Last administered on 05/15/17 07 :52; Admin Dose 25 MG; Start 05/08/17 at 14:00 WINDY EMERY May 15, 2017 13:33
--- NOTE | 2017-05-15 15:46 | CONS ---
Date/Time of Note Date/Time of Note DATE: 05/15/17 TIME: 15:42 Assessment/Plan Assessment/Plan Chief Complaint/Hosp Course IMP: 1.Hypertension- on low side today. ? overdiuresis 2.abnl ecg-negative trop x 3/NL EF by echo. NO CP 3.Liver abscess s/p CT guided drainage 4.H/O lung ca s/p resection with lung nodules by CT? 5.Lung nodules 6. Hyponatremia 7. Effusion s/p VATS/decortication Recc: -tele -s/p VATS/decortication -Continue abx's -F/U cx data -Continue BB -pain control -Continue lasix PO and follow volume status closely with probable need to decrease dose of lasix tomorrow Problems: Consultation Date/Type/Reason Admit Date/Time Apr 13, 2017 at 19:51 Initial Consult Date 04/13/17 Type of Consultation: cardiology Reason for Consultation Chest pain Referring Provider: DARREL BURT MD Exam/Review of Systems Vital Signs Vitals Vital Signs Date Time Temp Pulse Resp B/P Pulse Ox O2 Delivery O2 Flow Rate FiO2 05/15/17 15:23 98.1 93 17 103/60 96 05/15/17 12:00 Nasal Cannula 1.0 Intake and Output 05/14/17 05/14/17 05/15/17 15:00 23:00 07:00 Intake Total 700 ml 470 ml Output Total 5 ml 5 ml 900 ml Balance -5 ml 695 ml -430 ml Exam Review of Systems: CONSTITUTIONAL: No fevers, chills. PULMONARY: No sob CARDIOVASCULAR: No chest pain/palpitations GASTROINTESTINAL: No nausea/vomiting. GENITOURINARY: No hematuria/dysuria. MUSCULOSKELETAL: No myagias/arthalgias. PSYCHIATRIC: The patient denies depression. NEUROLOGIC: No weakness Constitutional: alert Psych: no complaints Head: normocephalic ENMT: mucosa pink and moist Neck: jvd, supple Respiratory: diminished breath sounds (at bases/B) Cardiovascular: regular rate and rhythm Gastrointestinal: non-tender, soft Musculoskeletal: muscle tone (normal) Extremities: edema (none) 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: other (No focal deficits) Results Result Diagram: 05/13/17 0701 05/13/17 0701 Results 24 hrs Laboratory Tests Test 05/14/17 17:16 05/14/17 20:21 05/15/17 07:40 05/15/17 11:33 Bedside Glucose 113 151 126 146 Medications Medications Current Medications Miscellaneous Information 1 ea NOTE XX ; Start 04/13/17 at 21:30 Glucose (Glutose) 15 gm Q15M PRN PO DECREASED GLUCOSE; Start 04/13/17 at 21:30 Glucose (Glutose) 22.5 gm Q15M PRN PO DECREASED GLUCOSE; Start 04/13/17 at 21: 30 Dextrose (D50w Syringe) 25 ml Q15M PRN IV DECREASED GLUCOSE; Start 04/13/17 at 21:30 Dextrose (D50w Syringe) 50 ml Q15M PRN IV DECREASED GLUCOSE; Start 04/13/17 at 21:30 Glucagon (Glucagen) 1 mg Q15M PRN IM DECREASED GLUCOSE; Start 04/13/17 at 21:30 Glucose (Glutose) 15 gm Q15M PRN BUCCAL DECREASED GLUCOSE; Start 04/13/17 at 21 :30 Ondansetron HCl (Zofran Inj) 4 mg Q6 PRN IV NAUSEA AND/OR VOMITING Last administered on 04/26/17 20:25; Admin Dose 4 MG; Start 04/13/17 at 21:30 Guaifenesin/ Dextromethorphan (Robitussin Dm Liquid Cup) 5 ml Q4H PRN PO COUGH Last administered on 04/19/17 05:09; Admin Dose 5 ML; Start 04/15/17 at 16:30 Pantoprazole (Protonix Tab) 40 mg DAILY@06 PO Last administered on 05/15/17 06:11; Admin Dose 40 MG; Start 04/17/17 at 06:00 Acetaminophen (Tylenol Tab) 500 mg Q6H PRN PO PAIN AND OR ELEVATED TEMP Last administered on 05/06/17 03:25; Admin Dose 500 MG; Start 04/17/17 at 03:00 Magnesium Hydroxide 30 ml 30 ml DAILY PRN PO CONSTIPATION Last administered on 04/28/17 18:33; Admin Dose 30 ML; Start 04/17/17 at 11:30 Ampicillin Sodium/ Sulbactam Sodium (Unasyn 1.5gm/NS (Pmx)) 50 ml @ 100 mls/hr Q6 IVPB Last administered on 05/15/17 11:45; Admin Dose 100 MLS/HR; Start at 18:00 Fentanyl (Duragesic 12 Mcg/Hr Patch) 1 patch Q72H TRANSDERM Last administered on 05/13/17 06:14; Admin Dose 1 PATCH; Start 04/22/17 at 05:30 Morphine Sulfate (morphine) 1 mg Q4H PRN IV SEVERE PAIN LEVEL 7-10 Last administered on 05/08/17 02:30; Admin Dose 1 MG; Start 04/22/17 at 17:30 Metoclopramide HCl (Reglan) 10 mg Q6H PRN IV NAUSEA Last administered on 20:18; Admin Dose 10 MG; Start 04/22/17 at 21:00 Enoxaparin Sodium (Lovenox) 30 mg DAILY SC Last administered on 05/15/17 07: 57; Admin Dose 30 MG; Start 04/23/17 at 20:30 Acetaminophen (Tylenol Supp) 650 mg Q6H PRN [place] FEVER GREATER THAN 100.6; Start 04/23/17 at 20:30 Acetaminophen (Tylenol Tab) 650 mg Q6H PRN PO PAIN AND OR ELEVATED TEMP Last administered on 05/12/17 15:00; Admin Dose 650 MG; Start 04/23/17 at 20:30 Lactobacillus Acidophilus/ Rhamnosus (Culturelle) 1 cap BID PO Last administered on 05/15/17 07:51; Admin Dose 1 CAP; Start 04/24/17 at 11:30 Diagnostic Test (Pha) (Accu-Chek) 1 ea 02 XX ; Start 04/26/17 at 02:00 Docusate Sodium (Colace) 100 mg BID PO Last administered on 05/15/17 07:52; Admin Dose 100 MG; Start 04/30/17 at 21:00 Potassium Chloride (Klor-Con 20) 20 meq BID PO Last administered on 05/15/17 07:51; Admin Dose 20 MEQ; Start 05/04/17 at 21:00 Nalbuphine HCl (Nubain) 10 mg Q4H PRN IV PRURITUS; Start 05/07/17 at 13:30 Ondansetron HCl (Zofran Inj) 4 mg Q6H PRN IV NAUSEA AND/OR VOMITING; Start 05/07/17 at 13:30 Metoprolol Tartrate (Lopressor) 25 mg BID PO Last administered on 05/15/17t 07 :52; Admin Dose 25 MG; Start 05/08/17 at 14:00 LILIANA BARKSDALE May 15, 2017 15:46
--- NOTE | 2017-05-15 16:36 | CONS ---
Date/Time of Note Date/Time of Note DATE: 05/15/17 TIME: 16:35 Assessment/Plan Assessment/Plan Chief Complaint/Hosp Course Problems: Additional Assessment/Plan 1. Bilateral pleural effusions right more than left, status post right thoracentesis 04/20. S/p right chest tube insertion on 04/[address] Jackson, vascular surgery. S/p right thoracentesis 04/26. - s/p Right VATS decortication 05/07/2017 2. Acute hyponatremia 2/2 Hypovolemic hyponatremia - Resolved 2. sepsis due to liver abscess 3. Hepatic abscess oN CT scan s/p CT guided drainage on 04/15/17 and 04/23/17 4. Acute transaminitis 5. h/o Colon CA s/p previous Surgery 6. Hypokalemia 7. acute resp failiue due to # 1 8. hypomagnesemia Plan : S/p Right VATS decortication, chest tube discontinued CXR much improved after surgery, small pleural effusion , conitnue lasix 20mg pO BID, no chemistry today to review yet IV abx as per ID, renally dose all abx pulmonary ID and G surgery has been following on patient will follow up Consultation Date/Type/Reason Admit Date/Time Apr 13, 2017 at 19:51 Initial Consult Date 04/13/17 Type of Consultation: NEPHROLOGY Referring Provider: DARREL BURT MD Exam/Review of Systems Vital Signs Vitals Vital Signs Date Time Temp Pulse Resp B/P Pulse Ox O2 Delivery O2 Flow Rate FiO2 05/15/17 16:24 93 05/15/17 15:23 98.1 17 103/60 96 05/15/17 12:00 Nasal Cannula 1.0 Intake and Output 05/14/17 05/14/17 05/15/17 14:59 22:59 06:59 Intake Total 700 ml 470 ml Output Total 5 ml 5 ml 900 ml Balance -5 ml 695 ml -430 ml Results Result Diagram: 05/13/17 0701 05/13/17 0701 Results 24 hrs Laboratory Tests Test 05/14/17 17:16 05/14/17 20:21 05/15/17 07:40 05/15/17 11:33 Bedside Glucose 113 151 126 146 Medications Medications Current Medications Miscellaneous Information 1 ea NOTE XX ; Start 04/13/17 at 21:30 Glucose (Glutose) 15 gm Q15M PRN PO DECREASED GLUCOSE; Start 04/13/17 at 21:30 Glucose (Glutose) 22.5 gm Q15M PRN PO DECREASED GLUCOSE; Start 04/13/17 at 21: 30 Dextrose (D50w Syringe) 25 ml Q15M PRN IV DECREASED GLUCOSE; Start 04/13/17 at 21:30 Dextrose (D50w Syringe) 50 ml Q15M PRN IV DECREASED GLUCOSE; Start 04/13/17 at 21:30 Glucagon (Glucagen) 1 mg Q15M PRN IM DECREASED GLUCOSE; Start 04/13/17 at 21:30 Glucose (Glutose) 15 gm Q15M PRN BUCCAL DECREASED GLUCOSE; Start 04/13/17 at 21 :30 Ondansetron HCl (Zofran Inj) 4 mg Q6 PRN IV NAUSEA AND/OR VOMITING Last administered on 04/26/17 20:25; Admin Dose 4 MG; Start 04/13/17 at 21:30 Guaifenesin/ Dextromethorphan (Robitussin Dm Liquid Cup) 5 ml Q4H PRN PO COUGH Last administered on 04/19/17 05:09; Admin Dose 5 ML; Start 04/15/17 at 16:30 Pantoprazole (Protonix Tab) 40 mg DAILY@06 PO Last administered on 05/15/17 06:11; Admin Dose 40 MG; Start 04/17/17 at 06:00 Acetaminophen (Tylenol Tab) 500 mg Q6H PRN PO PAIN AND OR ELEVATED TEMP Last administered on 05/06/17 03:25; Admin Dose 500 MG; Start 04/17/17 at 03:00 Magnesium Hydroxide 30 ml 30 ml DAILY PRN PO CONSTIPATION Last administered on 04/28/17 18:33; Admin Dose 30 ML; Start 04/17/17 at 11:30 Ampicillin Sodium/ Sulbactam Sodium (Unasyn 1.5gm/NS (Pmx)) 50 ml @ 100 mls/hr Q6 IVPB Last administered on 05/15/17 11:45; Admin Dose 100 MLS/HR; Start at 18:00 Fentanyl (Duragesic 12 Mcg/Hr Patch) 1 patch Q72H TRANSDERM Last administered on 05/13/17 06:14; Admin Dose 1 PATCH; Start 04/22/17 at 05:30 Morphine Sulfate (morphine) 1 mg Q4H PRN IV SEVERE PAIN LEVEL 7-10 Last administered on 05/08/17 02:30; Admin Dose 1 MG; Start 04/22/17 at 17:30 Metoclopramide HCl (Reglan) 10 mg Q6H PRN IV NAUSEA Last administered on 20:18; Admin Dose 10 MG; Start 04/22/17 at 21:00 Enoxaparin Sodium (Lovenox) 30 mg DAILY SC Last administered on 05/15/17 07: 57; Admin Dose 30 MG; Start 04/23/17 at 20:30 Acetaminophen (Tylenol Supp) 650 mg Q6H PRN [place] FEVER GREATER THAN 100.6; Start 04/23/17 at 20:30 Acetaminophen (Tylenol Tab) 650 mg Q6H PRN PO PAIN AND OR ELEVATED TEMP Last administered on 05/12/17 15:00; Admin Dose 650 MG; Start 04/23/17 at 20:30 Lactobacillus Acidophilus/ Rhamnosus (Culturelle) 1 cap BID PO Last administered on 05/15/17 07:51; Admin Dose 1 CAP; Start 04/24/17 at 11:30 Diagnostic Test (Pha) (Accu-Chek) 1 ea 02 XX ; Start 04/26/17 at 02:00 Docusate Sodium (Colace) 100 mg BID PO Last administered on 05/15/17 07:52; Admin Dose 100 MG; Start 04/30/17 at 21:00 Potassium Chloride (Klor-Con 20) 20 meq BID PO Last administered on 05/15/17 07:51; Admin Dose 20 MEQ; Start 05/04/17 at 21:00 Nalbuphine HCl (Nubain) 10 mg Q4H PRN IV PRURITUS; Start 05/07/17 at 13:30 Ondansetron HCl (Zofran Inj) 4 mg Q6H PRN IV NAUSEA AND/OR VOMITING; Start 05/07/17 at 13:30 Metoprolol Tartrate (Lopressor) 25 mg BID PO Last administered on 05/15/17 07 :52; Admin Dose 25 MG; Start 05/08/17 at 14:00 NGOC GARZA MD May 15, 2017 16:36
[2017-05-15] MEDS ORDERED: SOD CHLORIDE 0.9% 100 ML ONE (20:17)
[2017-05-15] MEDS ORDERED: IOHEXOL 300MG/ML 150 ML BTL ONE (20:17)
[2017-05-16] VITALS (12 sets, daily range): BP systolic 101–109; BP diastolic 56–92; PULSE 80–90; RESP 18–19
[2017-05-16] MEDS: morphine 2 MG INJ IV PRN (01:08)
[2017-05-16] MEDS: ACCU-CHEK XX SCH (01:31)
[2017-05-16] MEDS: AMPICILLIN/SULB 1.5GM/NS (PMX) 50 ML IVPB SCH ×4 (06:11→23:19)
[2017-05-16] MEDS: FENTAnyl PATCH 12 MCG/HR TRANSDERM SCH (06:11)
[2017-05-16] MEDS: PANTOPRAZOLE (EC) 40 MG TAB PO SCH (06:12)
[2017-05-16] MEDS: FUROSEMIDE 20 MG TAB PO SCH ×2 (06:12→18:18)
[2017-05-16 06:26] LABS: BASOPHILS % 0.5 % (0.0-2.0); EOSINOPHILS # 0.2 10^3/ul (0.0-0.5); EOSINOPHILS % 1.8 % (0.0-7.0); HEMATOCRIT 27.7 % (37.0-47.0); HEMOGLOBIN 8.9 g/dl (12.0-16.0); LYMPHOCYTES # 2.1 10^3/ul (0.8-2.9); MEAN CORPUSCULAR HEMOGLOBIN 30.3 pg (29.0-33.0); MEAN CORPUSCULAR HGB CONC 32.1 g/dl (32.0-37.0); MEAN CORPUSCULAR VOLUME 94.2 fl (82.0-101.0); MEAN PLATELET VOLUME 8.3 fl (7.4-10.4); MONOCYTES % 12.2 % (0.0-11.0); NEUTROPHILS % 59.9 % (39.0-77.0); PLATELET COUNT 464 10^3/UL (140-415); RED BLOOD COUNT 2.94 10^6/ul (4.20-5.40); RED CELL DISTRIBUTION WIDTH 14.4 % (11.5-14.5); WHITE BLOOD COUNT 8.4 10^3/ul (4.8-10.8)
[2017-05-16 06:54] LABS: CALCIUM 9.3 mg/dl (8.4-10.2); CREATININE 0.39 mg/dl (0.44-1.00); POTASSIUM 4.3 mmol/L (3.5-5.1)
[2017-05-16] MEDS: Insulin NOVOLOG SS MILD Algorithm (SS with meals and bedtime) SC SCH ×4 (07:25→20:38)
--- NOTE | 2017-05-16 07:42 | PN ---
DATE: 05/15/2017 SUBJECTIVE: No complaint. No pain. Bowel movement is okay. Eating, tolerating diet perfectly. OBJECTIVE GENERAL: Awake, alert, oriented x3. VITAL SIGNS: Stable, afebrile, saturation 96% on 3 L nasal cannula. ABDOMEN: Soft. HEART: Regular. LUNGS: Decreased breathing sound mainly on the right side. LABORATORY DATA: No labs today were done. CHEST X-RAY: No chest x-ray was done today. ASSESSMENT AND PLAN: A 66-year-old lady who presented with sepsis due to liver abscess. The liver abscess has been taken care of by percutaneous drainage of the abscess in radiology by pigtail drain s. Three of them were placed currently on several occasions, and 2 of them have been left in with 1 still there. She has pleural effusion also which was aspirated 2 times, and eventually the chest t ube was placed which was not successful. Therefore, decortication was done about a week ago, and af ter a few days, the chest tube was removed. The patient does not have shortness of breath as well. PLAN: I have ordered a CT scan of the abdomen with IV and oral contrast, but because of the fact th at the patient is in telemetry and needs to be monitored, they have not been able to send the patien t downstairs, and we are expecting as soon as the patient is discharged from telemetry to med/surg, then they can send her downstairs. In any case, the order is still activity in the computer. Dictated By: JOHN JUSTIN/KT Conf#: [id number] DID#: [id number]
[2017-05-16] MEDS: POTASSIUM CHLORIDE (SR) 20 MEQ TAB PO SCH ×2 (09:21→20:37)
[2017-05-16] MEDS: METOPROLOL 25 MG TAB PO SCH ×2 (09:22→20:38)
[2017-05-16] MEDS: LACTOBACILLUS RHAMNOSUS CAP PO SCH ×2 (09:23→20:37)
[2017-05-16] MEDS: DOCUSATE SODIUM 100 MG CAP PO SCH ×2 (09:23→20:37)
[2017-05-16] MEDS: ENOXAPARIN 30 MG/0.3 ML SYG SC SCH (09:28)
--- NOTE | 2017-05-16 11:20 | PN ---
Date/Time of Note Date/Time of Note DATE: 05/16/17 TIME: 11:19 Assessment/Plan VTE Prophylaxis VTE Prophylaxis Intervention: other Lines/Catheters IV Catheter Type (from [facility]): Peripheral IV Urinary Cath still in place: No Assessment/Plan Chief Complaint/Hosp Course - Bilateral pleural effusions right more than left, status post right thoracentesis 04/20. S/p right chest tube insertion on 04/[address] Jackson, vascular surgery. S/p right thoracentesis 04/26. S/P Right VATS decortication on 05/07. CT removed 05/12. - Acute respiratory failure secondary to #1, Dr. Damico is following in pulmonology consultation continue oxygen oxygen supplementation - Severe sepsis 2/2 to liver abscess, resolving. Continue antibiotics per ID. is following in infection disease consultation - Liver abscess unchanged per recent CT, s/p CT guided drainage 04/15/2017, s/p CT guided percutaneous drainage of liver abscess 04/23, status post CT-guided liver abscess drainage 04/27 - Normocytic anemia requiring blood transfusion - Hx of rectal CA s/p Low anterior resection 08/29/2016 Problems: Subjective 24 Hr Interval Summary Free Text/Dictation Complains of intermittent abdominal pain, none currently Exam/Review of Systems Vital Signs Vitals Vital Signs Date Time Temp Pulse Resp B/P Pulse Ox O2 Delivery O2 Flow Rate FiO2 05/16/17 11:11 98.1 88 18 101/59 96 05/16/17 06:32 3.0 05/15/17 20:00 Nasal Cannula Intake and Output 05/15/17 05/15/17 05/16/17 15:00 23:00 07:00 Intake Total 1040 ml 600 ml Output Total 10 ml 10 ml 960 ml Balance -10 ml 1030 ml -360 ml Exam Constitutional: well developed Head: atraumatic, normocephalic Neck: supple Respiratory: clear to auscultation Cardiovascular: regular rate and rhythm Gastrointestinal: soft, tender Extremities: normal pulses Results Result Diagram: 05/16/17 0602 05/16/17 0602 Results 24 hrs Laboratory Tests Test 05/15/17 11:33 05/15/17 17:10 05/15/17 20:35 05/16/17 06:02 Bedside Glucose 146 140 126 White Blood Count 8.4 Red Blood Count 2.94 L Hemoglobin 8.9 L Hematocrit 27.7 L Mean Corpuscular Volume 94.2 Mean Corpuscular Hemoglobin 30.3 Mean Corpuscular Hemoglobin Concent 32.1 Red Cell Distribution Width 14.4 Platelet Count 464 H Mean Platelet Volume 8.3 Neutrophils % 59.9 Lymphocytes % 25.0 Monocytes % 12.2 H Eosinophils % 1.8 Basophils % 0.5 Nucleated Red Blood Cells % 0.0 Neutrophils # 5.0 Lymphocytes # 2.1 Monocytes # 1.0 H Eosinophils # 0.2 Basophils # 0.0 Nucleated Red Blood Cells # 0.0 Sodium Level 137 Potassium Level 4.3 Chloride Level 96 L Carbon Dioxide Level 33 H Anion Gap 12 Blood Urea Nitrogen 8 Creatinine 0.39 L Glucose Level 115 Calcium Level 9.3 Test 05/16/17 08:16 Bedside Glucose 112 Medications Medications Current Medications Miscellaneous Information 1 ea NOTE XX ; Start 04/13/17 at 21:30 Glucose (Glutose) 15 gm Q15M PRN PO DECREASED GLUCOSE; Start 04/13/17 at 21:30 Glucose (Glutose) 22.5 gm Q15M PRN PO DECREASED GLUCOSE; Start 04/13/17 at 21: 30 Dextrose (D50w Syringe) 25 ml Q15M PRN IV DECREASED GLUCOSE; Start 04/13/17 at 21:30 Dextrose (D50w Syringe) 50 ml Q15M PRN IV DECREASED GLUCOSE; Start 04/13/17 at 21:30 Glucagon (Glucagen) 1 mg Q15M PRN IM DECREASED GLUCOSE; Start 04/13/17 at 21:30 Glucose (Glutose) 15 gm Q15M PRN BUCCAL DECREASED GLUCOSE; Start 04/13/17 at 21 :30 Ondansetron HCl (Zofran Inj) 4 mg Q6 PRN IV NAUSEA AND/OR VOMITING Last administered on 04/26/17 20:25; Admin Dose 4 MG; Start 04/13/17 at 21:30 Guaifenesin/ Dextromethorphan (Robitussin Dm Liquid Cup) 5 ml Q4H PRN PO COUGH Last administered on 04/19/17 05:09; Admin Dose 5 ML; Start 04/15/17 at 16:30 Pantoprazole (Protonix Tab) 40 mg DAILY@06 PO Last administered on 05/16/17 06:12; Admin Dose 40 MG; Start 04/17/17 at 06:00 Acetaminophen (Tylenol Tab) 500 mg Q6H PRN PO PAIN AND OR ELEVATED TEMP Last administered on 05/06/17 03:25; Admin Dose 500 MG; Start 04/17/17 at 03:00 Magnesium Hydroxide 30 ml 30 ml DAILY PRN PO CONSTIPATION Last administered on 04/28/17 18:33; Admin Dose 30 ML; Start 04/17/17 at 11:30 Ampicillin Sodium/ Sulbactam Sodium (Unasyn 1.5gm/NS (Pmx)) 50 ml @ 100 mls/hr Q6 IVPB Last administered on 05/16/17 06:11; Admin Dose 100 MLS/HR; Start at 18:00 Fentanyl (Duragesic 12 Mcg/Hr Patch) 1 patch Q72H TRANSDERM Last administered on 05/16/17 06:11; Admin Dose 1 PATCH; Start 04/22/17 at 05:30 Morphine Sulfate (morphine) 1 mg Q4H PRN IV SEVERE PAIN LEVEL 7-10 Last administered on 05/16/17 01:08; Admin Dose 1 MG; Start 04/22/17 at 17:30 Metoclopramide HCl (Reglan) 10 mg Q6H PRN IV NAUSEA Last administered on 20:18; Admin Dose 10 MG; Start 04/22/17 at 21:00 Enoxaparin Sodium (Lovenox) 30 mg DAILY SC Last administered on 05/16/17 09: 28; Admin Dose 30 MG; Start 04/23/17 at 20:30 Acetaminophen (Tylenol Supp) 650 mg Q6H PRN [place] FEVER GREATER THAN 100.6; Start 04/23/17 at 20:30 Acetaminophen (Tylenol Tab) 650 mg Q6H PRN PO PAIN AND OR ELEVATED TEMP Last administered on 05/12/17 15:00; Admin Dose 650 MG; Start 04/23/17 at 20:30 Lactobacillus Acidophilus/ Rhamnosus (Culturelle) 1 cap BID PO Last administered on 05/16/17 09:23; Admin Dose 1 CAP; Start 04/24/17 at 11:30 Diagnostic Test (Pha) (Accu-Chek) 1 ea 02 XX ; Start 04/26/17 at 02:00 Docusate Sodium (Colace) 100 mg BID PO Last administered on 05/16/17 09:23; Admin Dose 100 MG; Start 04/30/17 at 21:00 Potassium Chloride (Klor-Con 20) 20 meq BID PO Last administered on 05/16/17 09:21; Admin Dose 20 MEQ; Start 05/04/17 at 21:00 Nalbuphine HCl (Nubain) 10 mg Q4H PRN IV PRURITUS; Start 05/07/17 at 13:30 Ondansetron HCl (Zofran Inj) 4 mg Q6H PRN IV NAUSEA AND/OR VOMITING; Start 05/07/17 at 13:30 Metoprolol Tartrate (Lopressor) 25 mg BID PO Last administered on 05/16/17 09 :22; Admin Dose 25 MG; Start 05/08/17 at 14:00 [employer] May 16, 2017 11:20
--- NOTE | 2017-05-16 11:49 | CONS ---
Date/Time of Note Date/Time of Note DATE: 05/16/17 TIME: 11:47 Assessment/Plan Assessment/Plan Chief Complaint/Hosp Course - severe sepsis due to pyogenic liver abscess, loculated pleural effusion s/p R thoracotomy, thoracoscopy, total pulmonary decortication on 05/07/2017. Path showed fibrin, necrotic tissue and abscess, no evidence of malignancy. - multiloculated pyogenic liver abscess s/p CT guided drainage catheter placement 04/15/2017, 04/23/2017, s/p repeat drainage 04/27/2017; cultures from gamma hemolytic strep, cultures from 04/23/2017 alpha hemolytic strep - loculated pleural effusion likely secondary to hepatic process/Hepatic hydrothorax, R>L, s/p R thoracentesis on 04/20/2017, s/p chest tube placement on 04/22/2017 - intermittent diarrhea - normocytic anemia requiring blood transfusion - coagulopathy, improved - Transaminitis, improved - Hyponatremia - CoNS in urine culture with trivial pyuria, likely contaminant - Hx of rectal CA s/p Low anterior resection 08/29/2016 - Severe protein calorie malnutrition - allergy to vancomycin recommendations: - follow up CT was taken; will review it once it gets uploaded - continue amp/sulbactam (04/18/2017-); s/p linezolid and pip/tazo (04/13-2016). monitor at least weekly CBC and BMP while PT's on long-term antibiotic - we recommend long-term (6 weeks at least) antibiotic administration management d/w Pt Problems: Consultation Date/Type/Reason Admit Date/Time Apr 13, 2017 at 19:51 Initial Consult Date 04/21/17 Type of Consultation: ID Referring Provider: DARREL BURT MD 24 HR Interval Summary Constitutional: no complaints Detailed Summary Eyes: no complaints ENT: no complaints Respiratory: No cough, No pleuritic pain, No sputum Cardiovascular: no complaints Gastrointestinal: no complaints Genitourinary: no complaints Musculoskeletal: no complaints Skin: other (pressure from tapes on chest wall) Neurologic: no complaints Exam/Review of Systems Vital Signs Vitals Vital Signs Date Time Temp Pulse Resp B/P Pulse Ox O2 Delivery O2 Flow Rate FiO2 05/16/17 11:11 98.1 88 18 101/59 96 05/16/17 06:32 3.0 05/15/17 20:00 Nasal Cannula Intake and Output 05/15/17 05/15/17 05/16/17 15:00 23:00 07:00 Intake Total 1040 ml 600 ml Output Total 10 ml 10 ml 960 ml Balance -10 ml 1030 ml -360 ml Exam Constitutional: alert, oriented, well developed Psych: nl mood/affect, no complaints Head: atraumatic, normocephalic Eyes: nl conjunctiva, nl lids, nl sclera ENMT: nl external ears & nose, nl nasal mucosa & septum Neck: supple Respiratory: diminished breath sounds Cardiovascular: nl pulses, regular rate and rhythm Gastrointestinal: non-tender, other (+external drainage catheter), soft Musculoskeletal: nl extremities to inspection Extremities: No edema Results Result Diagram: 05/16/1760105/16/17 0602 Results 24 hrs Laboratory Tests Test 05/15/17 17:10 05/15/17 20:35 05/16/17 06:02 05/16/17 08:16 Bedside Glucose 140 126 112 White Blood Count 8.4 Red Blood Count 2.94 L Hemoglobin 8.9 L Hematocrit 27.7 L Mean Corpuscular Volume 94.2 Mean Corpuscular Hemoglobin 30.3 Mean Corpuscular Hemoglobin Concent 32.1 Red Cell Distribution Width 14.4 Platelet Count 464 H Mean Platelet Volume 8.3 Neutrophils % 59.9 Lymphocytes % 25.0 Monocytes % 12.2 H Eosinophils % 1.8 Basophils % 0.5 Nucleated Red Blood Cells % 0.0 Neutrophils # 5.0 Lymphocytes # 2.1 Monocytes # 1.0 H Eosinophils # 0.2 Basophils # 0.0 Nucleated Red Blood Cells # 0.0 Sodium Level 137 Potassium Level 4.3 Chloride Level 96 L Carbon Dioxide Level 33 H Anion Gap 12 Blood Urea Nitrogen 8 Creatinine 0.39 L Glucose Level 115 Calcium Level 9.3 Medications Medications Current Medications Miscellaneous Information 1 ea NOTE XX ; Start 04/13/17 at 21:30 Glucose (Glutose) 15 gm Q15M PRN PO DECREASED GLUCOSE; Start 04/13/17 at 21:30 Glucose (Glutose) 22.5 gm Q15M PRN PO DECREASED GLUCOSE; Start 04/13/17 at 21: 30 Dextrose (D50w Syringe) 25 ml Q15M PRN IV DECREASED GLUCOSE; Start 04/13/17 at 21:30 Dextrose (D50w Syringe) 50 ml Q15M PRN IV DECREASED GLUCOSE; Start 04/13/17 at 21:30 Glucagon (Glucagen) 1 mg Q15M PRN IM DECREASED GLUCOSE; Start 04/13/17 at 21:30 Glucose (Glutose) 15 gm Q15M PRN BUCCAL DECREASED GLUCOSE; Start 04/13/17 at 21 :30 Ondansetron HCl (Zofran Inj) 4 mg Q6 PRN IV NAUSEA AND/OR VOMITING Last administered on 04/26/17 20:25; Admin Dose 4 MG; Start 04/13/17 at 21:30 Guaifenesin/ Dextromethorphan (Robitussin Dm Liquid Cup) 5 ml Q4H PRN PO COUGH Last administered on 04/19/17 05:09; Admin Dose 5 ML; Start 04/15/17 at 16:30 Pantoprazole (Protonix Tab) 40 mg DAILY@06 PO Last administered on 05/16/17 06:12; Admin Dose 40 MG; Start 04/17/17 at 06:00 Acetaminophen (Tylenol Tab) 500 mg Q6H PRN PO PAIN AND OR ELEVATED TEMP Last administered on 05/06/17 03:25; Admin Dose 500 MG; Start 04/17/17 at 03:00 Magnesium Hydroxide 30 ml 30 ml DAILY PRN PO CONSTIPATION Last administered on 04/28/17 18:33; Admin Dose 30 ML; Start 04/17/17 at 11:30 Ampicillin Sodium/ Sulbactam Sodium (Unasyn 1.5gm/NS (Pmx)) 50 ml @ 100 mls/hr Q6 IVPB Last administered on 05/16/17 06:11; Admin Dose 100 MLS/HR; Start at 18:00 Fentanyl (Duragesic 12 Mcg/Hr Patch) 1 patch Q72H TRANSDERM Last administered on 05/16/17 06:11; Admin Dose 1 PATCH; Start 04/22/17 at 05:30 Morphine Sulfate (morphine) 1 mg Q4H PRN IV SEVERE PAIN LEVEL 7-10 Last administered on 05/16/17 01:08; Admin Dose 1 MG; Start 04/22/17 at 17:30 Metoclopramide HCl (Reglan) 10 mg Q6H PRN IV NAUSEA Last administered on 20:18; Admin Dose 10 MG; Start 04/22/17 at 21:00 Enoxaparin Sodium (Lovenox) 30 mg DAILY SC Last administered on 05/16/17 09: 28; Admin Dose 30 MG; Start 04/23/17 at 20:30 Acetaminophen (Tylenol Supp) 650 mg Q6H PRN [place] FEVER GREATER THAN 100.6; Start 04/23/17 at 20:30 Acetaminophen (Tylenol Tab) 650 mg Q6H PRN PO PAIN AND OR ELEVATED TEMP Last administered on 05/12/17 15:00; Admin Dose 650 MG; Start 04/23/17 at 20:30 Lactobacillus Acidophilus/ Rhamnosus (Culturelle) 1 cap BID PO Last administered on 05/16/17 09:23; Admin Dose 1 CAP; Start 04/24/17 at 11:30 Diagnostic Test (Pha) (Accu-Chek) 1 ea 02 XX ; Start 04/26/17 at 02:00 Docusate Sodium (Colace) 100 mg BID PO Last administered on 05/16/17 09:23; Admin Dose 100 MG; Start 04/30/17 at 21:00 Potassium Chloride (Klor-Con 20) 20 meq BID PO Last administered on 05/16/17 09:21; Admin Dose 20 MEQ; Start 05/04/17 at 21:00 Nalbuphine HCl (Nubain) 10 mg Q4H PRN IV PRURITUS; Start 05/07/17 at 13:30 Ondansetron HCl (Zofran Inj) 4 mg Q6H PRN IV NAUSEA AND/OR VOMITING; Start 05/07/17 at 13:30 Metoprolol Tartrate (Lopressor) 25 mg BID PO Last administered on 05/16/17 09 :22; Admin Dose 25 MG; Start 05/08/17 at 14:00 AARON ANSARI M.D. May 16, 2017 11:49
--- NOTE | 2017-05-16 12:30 | CONS ---
Date/Time of Note Date/Time of Note DATE: 05/16/17 TIME: 12:28 Assessment/Plan Assessment/Plan Additional Assessment/Plan 1.Hypertension- on low side today. ? overdiuresis - BETTER now, will monitor now 2.abnl ecg-negative trop x 3/NL EF by echo. NO CP - no intervention planned 3.Liver abscess s/p CT guided drainage - on anti_bx, ID folllows 4.H/O lung ca s/p resection with lung nodules by CT? - VATS Rx 5.Lung nodules 6. Hyponatremia 7. Effusion s/p VATS/decortication - con;t to recover Consultation Date/Type/Reason Admit Date/Time Apr 13, 2017 at 19:51 Initial Consult Date 04/13/17 Type of Consultation: ID Referring Provider: DARREL BURT MD 24 HR Interval Summary Free Text/Dictation NO acute events - stable overall - con't to follow, BP on low side, but no clear Sx ROS: No fever, no chills, no nausea, no vomiting, no diarrhea/constipation No recent weight changes No chest pain, no PND, no orthopnea No dizziness, blurred vision No thirst, no heat or cold intolerance Exam/Review of Systems Vital Signs Vitals Vital Signs Date Time Temp Pulse Resp B/P Pulse Ox O2 Delivery O2 Flow Rate FiO2 05/16/17 11:11 98.1 88 18 101/59 96 05/16/17 06:32 3.0 05/15/17 20:00 Nasal Cannula Intake and Output 05/15/17 05/15/17 05/16/17 15:00 23:00 07:00 Intake Total 1040 ml 600 ml Output Total 10 ml 10 ml 960 ml Balance -10 ml 1030 ml -360 ml Exam General: WN/WD/NAD, AOx 3 HEENT: Unicetric/atraumatic/EOMI (follow commands) NECK: JVD elevated, no thyromegaly Lymph: no lymphadenopathy HEART: regular with no S3, II/ systolic murmur at apex LUNGS: Coarse sounds ABD: soft, NT, ND, +BS : Intact Neuro: non focal SKIN: chronic changes EXT: trace edema Results Result Diagram: 05/16/17 0602 05/16/17 0602 Results 24 hrs Laboratory Tests Test 05/15/17 17:10 05/15/17 20:35 05/16/17 06:02 05/16/17 08:16 Bedside Glucose 140 126 112 White Blood Count 8.4 Red Blood Count 2.94 L Hemoglobin 8.9 L Hematocrit 27.7 L Mean Corpuscular Volume 94.2 Mean Corpuscular Hemoglobin 30.3 Mean Corpuscular Hemoglobin Concent 32.1 Red Cell Distribution Width 14.4 Platelet Count 464 H Mean Platelet Volume 8.3 Neutrophils % 59.9 Lymphocytes % 25.0 Monocytes % 12.2 H Eosinophils % 1.8 Basophils % 0.5 Nucleated Red Blood Cells % 0.0 Neutrophils # 5.0 Lymphocytes # 2.1 Monocytes # 1.0 H Eosinophils # 0.2 Basophils # 0.0 Nucleated Red Blood Cells # 0.0 Sodium Level 137 Potassium Level 4.3 Chloride Level 96 L Carbon Dioxide Level 33 H Anion Gap 12 Blood Urea Nitrogen 8 Creatinine 0.39 L Glucose Level 115 Calcium Level 9.3 Medications Medications Current Medications Miscellaneous Information 1 ea NOTE XX ; Start 04/13/17 at 21:30 Glucose (Glutose) 15 gm Q15M PRN PO DECREASED GLUCOSE; Start 04/13/17 at 21:30 Glucose (Glutose) 22.5 gm Q15M PRN PO DECREASED GLUCOSE; Start 04/13/17 at 21: 30 Dextrose (D50w Syringe) 25 ml Q15M PRN IV DECREASED GLUCOSE; Start 04/13/17 at 21:30 Dextrose (D50w Syringe) 50 ml Q15M PRN IV DECREASED GLUCOSE; Start 04/13/17 at 21:30 Glucagon (Glucagen) 1 mg Q15M PRN IM DECREASED GLUCOSE; Start 04/13/17 at 21:30 Glucose (Glutose) 15 gm Q15M PRN BUCCAL DECREASED GLUCOSE; Start 04/13/17 at 21 :30 Ondansetron HCl (Zofran Inj) 4 mg Q6 PRN IV NAUSEA AND/OR VOMITING Last administered on 04/26/17 20:25; Admin Dose 4 MG; Start 04/13/17 at 21:30 Guaifenesin/ Dextromethorphan (Robitussin Dm Liquid Cup) 5 ml Q4H PRN PO COUGH Last administered on 04/19/17 05:09; Admin Dose 5 ML; Start 04/15/17 at 16:30 Pantoprazole (Protonix Tab) 40 mg DAILY@06 PO Last administered on 05/16/17 06:12; Admin Dose 40 MG; Start 04/17/17 at 06:00 Acetaminophen (Tylenol Tab) 500 mg Q6H PRN PO PAIN AND OR ELEVATED TEMP Last administered on 05/06/17 03:25; Admin Dose 500 MG; Start 04/17/17 at 03:00 Magnesium Hydroxide 30 ml 30 ml DAILY PRN PO CONSTIPATION Last administered on 04/28/17 18:33; Admin Dose 30 ML; Start 04/17/17 at 11:30 Ampicillin Sodium/ Sulbactam Sodium (Unasyn 1.5gm/NS (Pmx)) 50 ml @ 100 mls/hr Q6 IVPB Last administered on 05/16/17 06:11; Admin Dose 100 MLS/HR; Start at 18:00 Fentanyl (Duragesic 12 Mcg/Hr Patch) 1 patch Q72H TRANSDERM Last administered on 05/16/17 06:11; Admin Dose 1 PATCH; Start 04/22/17 at 05:30 Morphine Sulfate (morphine) 1 mg Q4H PRN IV SEVERE PAIN LEVEL 7-10 Last administered on 05/16/17 01:08; Admin Dose 1 MG; Start 04/22/17 at 17:30 Metoclopramide HCl (Reglan) 10 mg Q6H PRN IV NAUSEA Last administered on 20:18; Admin Dose 10 MG; Start 04/22/17 at 21:00 Enoxaparin Sodium (Lovenox) 30 mg DAILY SC Last administered on 05/16/17 09: 28; Admin Dose 30 MG; Start 04/23/17 at 20:30 Acetaminophen (Tylenol Supp) 650 mg Q6H PRN [place] FEVER GREATER THAN 100.6; Start 04/23/17 at 20:30 Acetaminophen (Tylenol Tab) 650 mg Q6H PRN PO PAIN AND OR ELEVATED TEMP Last administered on 05/12/17 15:00; Admin Dose 650 MG; Start 04/23/17 at 20:30 Lactobacillus Acidophilus/ Rhamnosus (Culturelle) 1 cap BID PO Last administered on 05/16/17 09:23; Admin Dose 1 CAP; Start 04/24/17 at 11:30 Diagnostic Test (Pha) (Accu-Chek) 1 ea 02 XX ; Start 04/26/17 at 02:00 Docusate Sodium (Colace) 100 mg BID PO Last administered on 05/16/17 09:23; Admin Dose 100 MG; Start 04/30/17 at 21:00 Potassium Chloride (Klor-Con 20) 20 meq BID PO Last administered on 05/16/17 09:21; Admin Dose 20 MEQ; Start 05/04/17 at 21:00 Nalbuphine HCl (Nubain) 10 mg Q4H PRN IV PRURITUS; Start 05/07/17 at 13:30 Ondansetron HCl (Zofran Inj) 4 mg Q6H PRN IV NAUSEA AND/OR VOMITING; Start 05/07/17 at 13:30 Metoprolol Tartrate (Lopressor) 25 mg BID PO Last administered on 05/16/17 09 :22; Admin Dose 25 MG; Start 05/08/17 at 14:00 JAIME BULLARD MD May 16, 2017 12:30
--- NOTE | 2017-05-16 12:51 | CONS ---
Date/Time of Note Date/Time of Note DATE: 05/16/17 TIME: 12:43 Assessment/Plan Assessment/Plan Additional Assessment/Plan 1. Bilateral pleural effusions right more than left, status post right thoracentesis 04/20. - S/p right chest tube insertion on 04/[address] Jackson, vascular surgery. - S/p right thoracentesis 04/26. - s/p Right VATS decortication 05/07/2017 2. Acute hyponatremia 2/2 Hypovolemic hyponatremia - Resolved 2. sepsis due to liver abscess 3. Hepatic abscess oN CT scan s/p CT guided drainage on 04/15/17 and 04/23/17 4. Acute transaminitis 5. h/o Colon CA s/p previous Surgery 6. Hypokalemia- resolved 7. acute resp failure due to # 1 8. hypomagnesemia - resolved 9. Anemia- monitor CBC Plan : S/p Right VATS decortication, chest tube discontinued CXR much improved after surgery, small pleural effusion , conitnue lasix 20mg pO BID, no chemistry today to review yet IV abx as per ID, renally dose all abx pulmonary ID and G surgery has been following on patient will follow up Consultation Date/Type/Reason Admit Date/Time Apr 13, 2017 at 19:51 Initial Consult Date 04/15/17 Type of Consultation: ID Referring Provider: DARREL BURT MD 24 HR Interval Summary Free Text/Dictation sleeping, easily awakens, c/o rt chest tube insertion site, tube is removed. afebrile, no shortness of breath noted, dw staff Constitutional: requiring O2 Exam/Review of Systems Vital Signs Vitals Vital Signs Date Time Temp Pulse Resp B/P Pulse Ox O2 Delivery O2 Flow Rate FiO2 05/16/17 11:11 98.1 88 18 101/59 96 05/16/17 06:32 3.0 05/15/17 20:00 Nasal Cannula Intake and Output 05/15/17 05/15/17 05/16/17 15:00 23:00 07:00 Intake Total 1040 ml 600 ml Output Total 10 ml 10 ml 960 ml Balance -10 ml 1030 ml -360 ml Exam Constitutional: alert, frail Respiratory: diminished breath sounds, normal air movement, other (sp chest tube- dcd now) Cardiovascular: nl pulses, other (s1s2) Gastrointestinal: non-tender, soft Musculoskeletal: nl extremities to inspection Extremities: normal pulses 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: 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, nl speech Results Result Diagram: 05/16/17 0602 05/16/17 0602 Results 24 hrs Laboratory Tests Test 05/15/17 17:10 05/15/17 20:35 05/16/17 06:02 05/16/17 08:16 Bedside Glucose 140 126 112 White Blood Count 8.4 Red Blood Count 2.94 L Hemoglobin 8.9 L Hematocrit 27.7 L Mean Corpuscular Volume 94.2 Mean Corpuscular Hemoglobin 30.3 Mean Corpuscular Hemoglobin Concent 32.1 Red Cell Distribution Width 14.4 Platelet Count 464 H Mean Platelet Volume 8.3 Neutrophils % 59.9 Lymphocytes % 25.0 Monocytes % 12.2 H Eosinophils % 1.8 Basophils % 0.5 Nucleated Red Blood Cells % 0.0 Neutrophils # 5.0 Lymphocytes # 2.1 Monocytes # 1.0 H Eosinophils # 0.2 Basophils # 0.0 Nucleated Red Blood Cells # 0.0 Sodium Level 137 Potassium Level 4.3 Chloride Level 96 L Carbon Dioxide Level 33 H Anion Gap 12 Blood Urea Nitrogen 8 Creatinine 0.39 L Glucose Level 115 Calcium Level 9.3 Test 05/16/17 12:40 Bedside Glucose 115 Medications Medications Current Medications Miscellaneous Information 1 ea NOTE XX ; Start 04/13/17 at 21:30 Glucose (Glutose) 15 gm Q15M PRN PO DECREASED GLUCOSE; Start 04/13/17 at 21:30 Glucose (Glutose) 22.5 gm Q15M PRN PO DECREASED GLUCOSE; Start 04/13/17 at 21: 30 Dextrose (D50w Syringe) 25 ml Q15M PRN IV DECREASED GLUCOSE; Start 04/13/17 at 21:30 Dextrose (D50w Syringe) 50 ml Q15M PRN IV DECREASED GLUCOSE; Start 04/13/17 at 21:30 Glucagon (Glucagen) 1 mg Q15M PRN IM DECREASED GLUCOSE; Start 04/13/17 at 21:30 Glucose (Glutose) 15 gm Q15M PRN BUCCAL DECREASED GLUCOSE; Start 04/13/17 at 21 :30 Ondansetron HCl (Zofran Inj) 4 mg Q6 PRN IV NAUSEA AND/OR VOMITING Last administered on 9/24/17at 20:25; Admin Dose 4 MG; Start 04/13/17 at 21:30 Guaifenesin/ Dextromethorphan (Robitussin Dm Liquid Cup) 5 ml Q4H PRN PO COUGH Last administered on 04/19/17 05:09; Admin Dose 5 ML; Start 04/15/17 at 16:30 Pantoprazole (Protonix Tab) 40 mg DAILY@06 PO Last administered on 05/16/17 06:12; Admin Dose 40 MG; Start 04/17/17 at 06:00 Acetaminophen (Tylenol Tab) 500 mg Q6H PRN PO PAIN AND OR ELEVATED TEMP Last administered on 05/06/17 03:25; Admin Dose 500 MG; Start 04/17/17 at 03:00 Magnesium Hydroxide 30 ml 30 ml DAILY PRN PO CONSTIPATION Last administered on 04/28/17 18:33; Admin Dose 30 ML; Start 04/17/17 at 11:30 Ampicillin Sodium/ Sulbactam Sodium (Unasyn 1.5gm/NS (Pmx)) 50 ml @ 100 mls/hr Q6 IVPB Last administered on 05/16/17 06:11; Admin Dose 100 MLS/HR; Start at 18:00 Fentanyl (Duragesic 12 Mcg/Hr Patch) 1 patch Q72H TRANSDERM Last administered on 05/16/17 06:11; Admin Dose 1 PATCH; Start 04/22/17 at 05:30 Morphine Sulfate (morphine) 1 mg Q4H PRN IV SEVERE PAIN LEVEL 7-10 Last administered on 05/16/17 01:08; Admin Dose 1 MG; Start 04/22/17 at 17:30 Metoclopramide HCl (Reglan) 10 mg Q6H PRN IV NAUSEA Last administered on 20:18; Admin Dose 10 MG; Start 04/22/17 at 21:00 Enoxaparin Sodium (Lovenox) 30 mg DAILY SC Last administered on 05/16/17 09: 28; Admin Dose 30 MG; Start 04/23/17 at 20:30 Acetaminophen (Tylenol Supp) 650 mg Q6H PRN [place] FEVER GREATER THAN 100.6; Start 04/23/17 at 20:30 Acetaminophen (Tylenol Tab) 650 mg Q6H PRN PO PAIN AND OR ELEVATED TEMP Last administered on 05/12/17 15:00; Admin Dose 650 MG; Start 04/23/17 at 20:30 Lactobacillus Acidophilus/ Rhamnosus (Culturelle) 1 cap BID PO Last administered on 05/16/17 09:23; Admin Dose 1 CAP; Start 04/24/17 at 11:30 Diagnostic Test (Pha) (Accu-Chek) 1 ea 02 XX ; Start 04/26/17 at 02:00 Docusate Sodium (Colace) 100 mg BID PO Last administered on 05/16/17 09:23; Admin Dose 100 MG; Start 04/30/17 at 21:00 Potassium Chloride (Klor-Con 20) 20 meq BID PO Last administered on 05/16/17 09:21; Admin Dose 20 MEQ; Start 05/04/17 at 21:00 Nalbuphine HCl (Nubain) 10 mg Q4H PRN IV PRURITUS; Start 05/07/17 at 13:30 Ondansetron HCl (Zofran Inj) 4 mg Q6H PRN IV NAUSEA AND/OR VOMITING; Start 05/07/17 at 13:30 Metoprolol Tartrate (Lopressor) 25 mg BID PO Last administered on 05/16/17 09 :22; Admin Dose 25 MG; Start 05/08/17 at 14:00 MESHA VELASQUEZ May 16, 2017 12:51
--- NOTE | 2017-05-16 14:05 | RADRPT ---
PROCEDURE: CT Abdomen with contrast. CLINICAL INDICATION: Follow-up liver abscess TECHNIQUE: CT scan of the abdomen with contrast was performed on a multidetector high-resolution C T scan. The patient was scanned following the uncomplicated intravenous administration of 80 ml con trast. Coronal and sagittal reformatted images were obtained from the axial source images. The total exam CTDI equals 3.91 mGy and the total exam DLP equals 181.13 mGy.cm. One or more of the following dose reduction techniques were utilized: Automated exposure control, a djustment of the mA and/or kV according to patient size, use of iterative reconstruction technique. COMPARISON: 05/02/2017 FINDINGS: Right chest tube has been removed. Smaller right pleural effusion with pleural thickening, pleural e nhancement and foci of air within the pleural fluid. Bilateral subsegmental atelectasis. The heart s ize is normal, without pericardial thickening or effusion. Right thorax skin betty. Similar position of anterior approach pigtail hepatic drain. Minimal fluid and air tracking around t he pigtail loop of the drainage catheter. Multiloculated fluid collection tracking along the anterio r lateral right hepatic lobe is increased in size with internal foci of air with likely tracking tow ards the catheter site measuring 5.8 x 1.6 x 3.4 cm. Previously seen superior lateral hepatic pigtai l drain has been removed. Multiloculated right hepatic dome fluid collections are decreased in size. Small amount of fluid tracking around the hepatic dome and lateral right hepatic lobe. Focal fat al yobany the falciform ligament. No intrahepatic or extrahepatic biliary dilatation. Normal appearance of the gallbladder, spleen, pa ncreas and adrenal glands. Normal symmetric enhancement of the kidneys. Mild right hydronephrosis. No renal stone or left hydro nephrosis. Similar appearance of right renal cysts. Normal appearance the urinary bladder. The aorta is normal in caliber. Patent mesenteric, hepatic and renal vessels. Limit evaluation of the gastrointestinal tract without oral contrast. The stomach is non distended. Nondilated visualized small bowel and colon. Postsurgical changes in the distal colon. Large amoun t of stool throughout the colon. No suspicious osseous lesions. IMPRESSION: 1. Interval decreased fluid around the pigtail loop of the anterior approach drain with tracking tow ards a larger multiloculated fluid collection along the anterior lateral right hepatic lobe measurin g 5.8 x 1.6 x 3.4 cm. Consider replacement/repositioning if minimal drainage output. 2. Interval removal of the superior lateral drain with decreased size of multiloculated hepatic dome collection. 3. Smaller right pleural effusion with pleural thickening, pleural enhancement and foci of air withi n the pleural fluid which may represent infection/empyema. RPTAT:AAJJ Physician Coretta Date Time Electronically viewed and signed by Santos Pederson, Physician on 05/16/2017 14:04 /
--- NOTE | 2017-05-16 14:09 | RADRPT ---
PROCEDURE: XR Chest. CLINICAL INDICATION: Sepsis. Liver abscess. TECHNIQUE: Single portable view of the chest was obtained. COMPARISON: Radiograph 05/13/2017 and additional prior studies including a CT chest 05/06/2017 FINDINGS: The patient is rotated. Stable cardiomediastinal silhouette. Complete opacification of the right upp er lobe, unchanged. Loculated right pleural effusion. Patchy right lung air space opacities. Left naomy ng is clear. Skin betty over the right lower thorax. Drainage catheter over the right upper abdome n. IMPRESSION: 1. Complete opacification of the right upper lobe representing atelectasis or pneumonia. 2. Loculated small right pleural effusion. 3. Patchy right middle lobe and lower lobe airspace opacities representing atelectasis or pneumonia. RPTAT:AAJJ Physician Coretta Date Time Electronically viewed and signed by Physician Coretta on 05/16/2017 14:09 /
[2017-05-17] VITALS (11 sets, daily range): BP systolic 95–120; BP diastolic 53–56; PULSE 74–88; RESP 16–19
[2017-05-17] MEDS: ACCU-CHEK XX SCH (01:12)
[2017-05-17] MEDS: FUROSEMIDE 20 MG TAB PO SCH ×2 (05:08→17:31)
[2017-05-17] MEDS: AMPICILLIN/SULB 1.5GM/NS (PMX) 50 ML IVPB SCH ×4 (05:08→23:43)
[2017-05-17] MEDS: PANTOPRAZOLE (EC) 40 MG TAB PO SCH (05:08)
[2017-05-17] MEDS: Insulin NOVOLOG SS MILD Algorithm (SS with meals and bedtime) SC SCH ×4 (07:25→20:46)
[2017-05-17] MEDS: METOPROLOL 25 MG TAB PO SCH ×2 (09:00→20:40)
[2017-05-17] MEDS: POTASSIUM CHLORIDE (SR) 20 MEQ TAB PO SCH ×2 (09:39→20:39)
[2017-05-17] MEDS: DOCUSATE SODIUM 100 MG CAP PO SCH ×2 (09:40→20:39)
[2017-05-17] MEDS: LACTOBACILLUS RHAMNOSUS CAP PO SCH ×2 (09:40→20:44)
[2017-05-17] MEDS: ENOXAPARIN 30 MG/0.3 ML SYG SC SCH (10:19)
--- NOTE | 2017-05-17 12:29 | CONS ---
Date/Time of Note Date/Time of Note DATE: 05/17/17 TIME: 12:27 Assessment/Plan Assessment/Plan Additional Assessment/Plan 1. Bilateral pleural effusions right more than left, status post right thoracentesis 04/20. - S/p right chest tube insertion on 04/[address] Jackson, vascular surgery. - S/p right thoracentesis 04/26. - s/p Right VATS decortication 05/07/2017 2. Acute hyponatremia 2/2 Hypovolemic hyponatremia - Resolved 2. sepsis due to liver abscess 3. Hepatic abscess ON CT scan s/p CT guided drainage on 04/15/17 and 04/23/17 4. Acute transaminitis 5. h/o Colon CA s/p previous Surgery 6. Hypokalemia- resolved 7. acute resp failure due to # 1 8. hypomagnesemia - resolved Plan : S/p Right VATS decortication, chest tube discontinued CXR much improved after surgery, small pleural effusion , conitnue lasix 20mg pO BID, no chemistry today to review yet IV abx as per ID, renally dose all abx pulmonary ID and G surgery has been following on patient will follow up Dw Dr Ruel Espino Consultation Date/Type/Reason Admit Date/Time Apr 13, 2017 at 19:51 Initial Consult Date 04/15/17 Type of Consultation: ID Referring Provider: DARREL BURT MD 24 HR Interval Summary Free Text/Dictation afebrile, denies shortness of breath , c/o rt chest tube insertion site, tube is remove. dw staff- no new events reported overnight Detailed Summary Respiratory: other (pain at at insertion site) Cardiovascular: no complaints Gastrointestinal: other (pain at drain site) Genitourinary: no complaints Musculoskeletal: no complaints Skin: no complaints Exam/Review of Systems Vital Signs Vitals Vital Signs Date Time Temp Pulse Resp B/P Pulse Ox O2 Delivery O2 Flow Rate FiO2 05/17/17 11:23 2.0 05/17/17 11:08 98.2 78 16 96/56 97 05/17/17 01:15 27 05/16/17 20:12 Nasal Cannula Intake and Output 05/16/17 05/16/17 05/17/17 15:00 23:00 07:00 Intake Total 800 ml 900 ml Output Total 1100 ml 1200 ml Balance -300 ml -300 ml Exam Constitutional: alert, oriented Psych: nl mood/affect Respiratory: diminished breath sounds Cardiovascular: nl pulses, other (s1 s2), regular rate and rhythm Gastrointestinal: non-tender, soft Musculoskeletal: nl extremities to inspection Extremities: normal pulses 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: 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, nl speech Results Result Diagram: 05/16/17 0602 05/16/17 0602 Results 24 hrs Laboratory Tests Test 05/16/17 12:40 05/16/17 18:09 05/16/17 20:36 05/17/17 08:18 Bedside Glucose 115 140 110 119 Medications Medications Current Medications Miscellaneous Information 1 ea NOTE XX ; Start 04/13/17 at 21:30 Glucose (Glutose) 15 gm Q15M PRN PO DECREASED GLUCOSE; Start 04/13/17 at 21:30 Glucose (Glutose) 22.5 gm Q15M PRN PO DECREASED GLUCOSE; Start 04/13/17 at 21: 30 Dextrose (D50w Syringe) 25 ml Q15M PRN IV DECREASED GLUCOSE; Start 04/13/17 at 21:30 Dextrose (D50w Syringe) 50 ml Q15M PRN IV DECREASED GLUCOSE; Start 04/13/17 at 21:30 Glucagon (Glucagen) 1 mg Q15M PRN IM DECREASED GLUCOSE; Start 04/13/17 at 21:30 Glucose (Glutose) 15 gm Q15M PRN BUCCAL DECREASED GLUCOSE; Start 04/13/17 at 21 :30 Ondansetron HCl (Zofran Inj) 4 mg Q6 PRN IV NAUSEA AND/OR VOMITING Last administered on 04/26/17 20:25; Admin Dose 4 MG; Start 04/13/17 at 21:30 Guaifenesin/ Dextromethorphan (Robitussin Dm Liquid Cup) 5 ml Q4H PRN PO COUGH Last administered on 04/19/17 05:09; Admin Dose 5 ML; Start 04/15/17 at 16:30 Pantoprazole (Protonix Tab) 40 mg DAILY@06 PO Last administered on 05/17/17 05:08; Admin Dose 40 MG; Start 04/17/17 at 06:00 Acetaminophen (Tylenol Tab) 500 mg Q6H PRN PO PAIN AND OR ELEVATED TEMP Last administered on 05/06/17 03:25; Admin Dose 500 MG; Start 04/17/17 at 03:00 Magnesium Hydroxide 30 ml 30 ml DAILY PRN PO CONSTIPATION Last administered on 04/28/17 18:33; Admin Dose 30 ML; Start 04/17/17 at 11:30 Ampicillin Sodium/ Sulbactam Sodium (Unasyn 1.5gm/NS (Pmx)) 50 ml @ 100 mls/hr Q6 IVPB Last administered on 05/17/17 05:08; Admin Dose 100 MLS/HR; Start at 18:00 Fentanyl (Duragesic 12 Mcg/Hr Patch) 1 patch Q72H TRANSDERM Last administered on 05/16/17 06:11; Admin Dose 1 PATCH; Start 04/22/17 at 05:30 Morphine Sulfate (morphine) 1 mg Q4H PRN IV SEVERE PAIN LEVEL 7-10 Last administered on 05/16/17 01:08; Admin Dose 1 MG; Start 04/22/17 at 17:30 Metoclopramide HCl (Reglan) 10 mg Q6H PRN IV NAUSEA Last administered on 20:18; Admin Dose 10 MG; Start 04/22/17 at 21:00 Enoxaparin Sodium (Lovenox) 30 mg DAILY SC Last administered on 05/17/17 10: 19; Admin Dose 30 MG; Start 04/23/17 at 20:30 Acetaminophen (Tylenol Supp) 650 mg Q6H PRN [place] FEVER GREATER THAN 100.6; Start 04/23/17 at 20:30 Acetaminophen (Tylenol Tab) 650 mg Q6H PRN PO PAIN AND OR ELEVATED TEMP Last administered on 05/12/17 15:00; Admin Dose 650 MG; Start 04/23/17 at 20:30 Lactobacillus Acidophilus/ Rhamnosus (Culturelle) 1 cap BID PO Last administered on 05/17/17 09:40; Admin Dose 1 CAP; Start 04/24/17 at 11:30 Diagnostic Test (Pha) (Accu-Chek) 1 ea 02 XX ; Start 04/26/17 at 02:00 Docusate Sodium (Colace) 100 mg BID PO Last administered on 05/17/17 09:40; Admin Dose 100 MG; Start 04/30/17 at 21:00 Potassium Chloride (Klor-Con 20) 20 meq BID PO Last administered on 05/17/17 09:39; Admin Dose 20 MEQ; Start 05/04/17 at 21:00 Nalbuphine HCl (Nubain) 10 mg Q4H PRN IV PRURITUS; Start 05/07/17 at 13:30 Ondansetron HCl (Zofran Inj) 4 mg Q6H PRN IV NAUSEA AND/OR VOMITING; Start 05/07/17 at 13:30 Metoprolol Tartrate (Lopressor) 25 mg BID PO Last administered on 05/16/17 20 :38; Admin Dose 25 MG; Start 05/08/17 at 14:00 MESHA VELASQUEZ May 17, 2017 12:29
--- NOTE | 2017-05-17 12:40 | PN ---
Date/Time of Note Date/Time of Note DATE: 05/17/17 TIME: 12:40 Assessment/Plan VTE Prophylaxis VTE Prophylaxis Intervention: other Lines/Catheters IV [facility]): Peripheral IV Urinary Cath still in place: No Assessment/Plan Chief Complaint/Hosp Course - Bilateral pleural effusions right more than left, status post right thoracentesis 04/20. S/p right chest tube insertion on 04/[address] Jackson, vascular surgery. S/p right thoracentesis 04/26. S/P Right VATS decortication on 05/07. CT removed 05/12. - Acute respiratory failure secondary to #1, Dr. Damico is following in pulmonology consultation continue oxygen oxygen supplementation - Severe sepsis 2/2 to liver abscess, resolving. Continue antibiotics per ID. is following in infection disease consultation - Liver abscess unchanged per recent CT, s/p CT guided drainage 04/15/2017, s/p CT guided percutaneous drainage of liver abscess 04/23, status post CT-guided liver abscess drainage 04/27 - Normocytic anemia requiring blood transfusion - Hx of rectal CA s/p Low anterior resection 08/29/2016 Problems: Subjective 24 Hr Interval Summary Free Text/Dictation Patient has no complaints Exam/Review of Systems Vital Signs Vitals Vital Signs Date Time Temp Pulse Resp B/P Pulse Ox O2 Delivery O2 Flow Rate FiO2 05/17/17 12:27 84 05/17/17 11:23 2.0 05/17/17 11:08 98.2 16 96/56 97 05/17/17 01:15 27 05/16/17 20:12 Nasal Cannula Intake and Output 05/16/17 05/16/17 05/17/17 14:59 22:59 06:59 Intake Total 800 ml 900 ml Output Total 1100 ml 1200 ml Balance -300 ml -300 ml Exam Constitutional: well developed Head: atraumatic, normocephalic Neck: supple Respiratory: clear to auscultation Cardiovascular: regular rate and rhythm Gastrointestinal: non-tender, soft Extremities: normal pulses Results Result Diagram: 05/16/17 0602 05/16/17 0602 Results 24 hrs Laboratory Tests Test 05/16/17 18:09 05/16/17 20:36 05/17/17 08:18 Bedside Glucose 140 110 119 Medications Medications Current Medications Miscellaneous Information 1 ea NOTE XX ; Start 04/13/17 at 21:30 Glucose (Glutose) 15 gm Q15M PRN PO DECREASED GLUCOSE; Start 04/13/17 at 21:30 Glucose (Glutose) 22.5 gm Q15M PRN PO DECREASED GLUCOSE; Start 04/13/17 at 21: 30 Dextrose (D50w Syringe) 25 ml Q15M PRN IV DECREASED GLUCOSE; Start 04/13/17 at 21:30 Dextrose (D50w Syringe) 50 ml Q15M PRN IV DECREASED GLUCOSE; Start 04/13/17 at 21:30 Glucagon (Glucagen) 1 mg Q15M PRN IM DECREASED GLUCOSE; Start 04/13/17 at 21:30 Glucose (Glutose) 15 gm Q15M PRN BUCCAL DECREASED GLUCOSE; Start 04/13/17 at 21 :30 Ondansetron HCl (Zofran Inj) 4 mg Q6 PRN IV NAUSEA AND/OR VOMITING Last administered on 04/26/17 20:25; Admin Dose 4 MG; Start 04/13/17 at 21:30 Guaifenesin/ Dextromethorphan (Robitussin Dm Liquid Cup) 5 ml Q4H PRN PO COUGH Last administered on 04/19/17 05:09; Admin Dose 5 ML; Start 04/15/17 at 16:30 Pantoprazole (Protonix Tab) 40 mg DAILY@06 PO Last administered on 05/17/17 05:08; Admin Dose 40 MG; Start 04/17/17 at 06:00 Acetaminophen (Tylenol Tab) 500 mg Q6H PRN PO PAIN AND OR ELEVATED TEMP Last administered on 05/06/17 03:25; Admin Dose 500 MG; Start 04/17/17 at 03:00 Magnesium Hydroxide 30 ml 30 ml DAILY PRN PO CONSTIPATION Last administered on 04/28/17 18:33; Admin Dose 30 ML; Start 04/17/17 at 11:30 Ampicillin Sodium/ Sulbactam Sodium (Unasyn 1.5gm/NS (Pmx)) 50 ml @ 100 mls/hr Q6 IVPB Last administered on 05/17/17 05:08; Admin Dose 100 MLS/HR; Start at 18:00 Fentanyl (Duragesic 12 Mcg/Hr Patch) 1 patch Q72H TRANSDERM Last administered on 05/16/17 06:11; Admin Dose 1 PATCH; Start 04/22/17 at 05:30 Morphine Sulfate (morphine) 1 mg Q4H PRN IV SEVERE PAIN LEVEL 7-10 Last administered on 05/16/17 01:08; Admin Dose 1 MG; Start 04/22/17 at 17:30 Metoclopramide HCl (Reglan) 10 mg Q6H PRN IV NAUSEA Last administered on 20:18; Admin Dose 10 MG; Start 04/22/17 at 21:00 Enoxaparin Sodium (Lovenox) 30 mg DAILY SC Last administered on 05/17/17 10: 19; Admin Dose 30 MG; Start 04/23/17 at 20:30 Acetaminophen (Tylenol Supp) 650 mg Q6H PRN [place] FEVER GREATER THAN 100.6; Start 04/23/17 at 20:30 Acetaminophen (Tylenol Tab) 650 mg Q6H PRN PO PAIN AND OR ELEVATED TEMP Last administered on 05/12/17 15:00; Admin Dose 650 MG; Start 04/23/17 at 20:30 Lactobacillus Acidophilus/ Rhamnosus (Culturelle) 1 cap BID PO Last administered on 05/17/17 09:40; Admin Dose 1 CAP; Start 04/24/17 at 11:30 Diagnostic Test (Pha) (Accu-Chek) 1 ea 02 XX ; Start 04/26/17 at 02:00 Docusate Sodium (Colace) 100 mg BID PO Last administered on 05/17/17 09:40; Admin Dose 100 MG; Start 04/30/17 at 21:00 Potassium Chloride (Klor-Con 20) 20 meq BID PO Last administered on 05/17/17 09:39; Admin Dose 20 MEQ; Start 05/04/17 at 21:00 Nalbuphine HCl (Nubain) 10 mg Q4H PRN IV PRURITUS; Start 05/07/17 at 13:30 Ondansetron HCl (Zofran Inj) 4 mg Q6H PRN IV NAUSEA AND/OR VOMITING; Start 05/07/17 at 13:30 Metoprolol Tartrate (Lopressor) 25 mg BID PO Last administered on 05/16/17 20 :38; Admin Dose 25 MG; Start 05/08/17 at 14:00 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
--- NOTE | 2017-05-17 13:50 | CONS ---
Date/Time of Note Date/Time of Note DATE: 05/17/17 TIME: 13:47 Assessment/Plan Assessment/Plan Chief Complaint/Hosp Course - severe sepsis due to pyogenic liver abscess, loculated pleural effusion s/p R thoracotomy, thoracoscopy, total pulmonary decortication on 05/07/2017. Path showed fibrin, necrotic tissue and abscess, no evidence of malignancy. - multiloculated pyogenic liver abscess s/p CT guided drainage catheter placement 04/15/2017, 04/23/2017, s/p repeat drainage 04/27/2017; cultures from gamma hemolytic strep, cultures from 04/23/2017 alpha hemolytic strep. F/ u CT on 05/16/2017 showed persistent multiloculated fluid collection - loculated pleural effusion likely secondary to hepatic process/Hepatic hydrothorax, R>L, s/p R thoracentesis on 04/20/2017, s/p chest tube placement on 04/22/2017 - intermittent diarrhea - normocytic anemia requiring blood transfusion - coagulopathy, improved - Transaminitis, improved - Hyponatremia - CoNS in urine culture with trivial pyuria, likely contaminant - Hx of rectal CA s/p Low anterior resection 08/29/2016 - Severe protein calorie malnutrition - allergy to vancomycin recommendations: - I recommend reconsulting IR if repositioning of the external drainage catheter is indicated - continue amp/sulbactam (04/18/2017-); s/p linezolid and pip/tazo (04/13-2016). monitor at least weekly CBC and BMP while Pt's on long-term antibiotic - we recommend long-term (6 weeks at least) antibiotic administration management d/w Pt, PET CAREGIVER Flavio, Pt's family member Problems: Consultation Date/Type/Reason Admit Date/Time Apr 13, 2017 at 19:51 Initial Consult Date 04/21/17 Type of Consultation: ID Referring Provider: DARREL BURT MD 24 HR Interval Summary Constitutional: no complaints Detailed Summary Eyes: no complaints ENT: no complaints Respiratory: no complaints Cardiovascular: no complaints Gastrointestinal: no complaints Genitourinary: no complaints Musculoskeletal: no complaints Skin: no complaints Exam/Review of Systems Vital Signs Vitals Vital Signs Date Time Temp Pulse Resp B/P Pulse Ox O2 Delivery O2 Flow Rate FiO2 05/17/17 12:27 84 05/17/17 11:23 2.0 05/17/17 11:08 98.2 16 96/56 97 05/17/17 01:15 27 05/16/17 20:12 Nasal Cannula Intake and Output 05/16/17 05/16/17 05/17/17 15:00 23:00 07:00 Intake Total 800 ml 900 ml Output Total 1100 ml 1200 ml Balance -300 ml -300 ml Exam Constitutional: alert, oriented, well developed Psych: nl mood/affect, no complaints Head: atraumatic, normocephalic Eyes: nl conjunctiva, nl lids, nl sclera ENMT: nl external ears & nose, nl nasal mucosa & septum Neck: supple Respiratory: diminished breath sounds, other (former CT site is dressed) Cardiovascular: nl pulses, regular rate and rhythm Gastrointestinal: non-tender, other (+external drainage catheter), soft Musculoskeletal: nl extremities to inspection Extremities: No edema Results Result Diagram: 05/16/17 0602 05/16/17 0602 Results 24 hrs Laboratory Tests Test 05/16/17 18:09 05/16/17 20:36 05/17/17 08:18 05/17/17 12:49 Bedside Glucose 140 110 119 113 Medications Medications Current Medications Miscellaneous Information 1 ea NOTE XX ; Start 04/13/17 at 21:30 Glucose (Glutose) 15 gm Q15M PRN PO DECREASED GLUCOSE; Start 04/13/17 at 21:30 Glucose (Glutose) 22.5 gm Q15M PRN PO DECREASED GLUCOSE; Start 04/13/17 at 21: 30 Dextrose (D50w Syringe) 25 ml Q15M PRN IV DECREASED GLUCOSE; Start 04/13/17 at 21:30 Dextrose (D50w Syringe) 50 ml Q15M PRN IV DECREASED GLUCOSE; Start 04/13/17 at 21:30 Glucagon (Glucagen) 1 mg Q15M PRN IM DECREASED GLUCOSE; Start 04/13/17 at 21:30 Glucose (Glutose) 15 gm Q15M PRN BUCCAL DECREASED GLUCOSE; Start 04/13/17 at 21 :30 Ondansetron HCl (Zofran Inj) 4 mg Q6 PRN IV NAUSEA AND/OR VOMITING Last administered on 04/26/17t 20:25; Admin Dose 4 MG; Start 04/13/17 at 21:30 Guaifenesin/ Dextromethorphan (Robitussin Dm Liquid Cup) 5 ml Q4H PRN PO COUGH Last administered on 04/19/17 05:09; Admin Dose 5 ML; Start 04/15/17 at 16:30 Pantoprazole (Protonix Tab) 40 mg DAILY@06 PO Last administered on 05/17/17 05:08; Admin Dose 40 MG; Start 04/17/17 at 06:00 Acetaminophen (Tylenol Tab) 500 mg Q6H PRN PO PAIN AND OR ELEVATED TEMP Last administered on 05/06/17 03:25; Admin Dose 500 MG; Start 04/17/17 at 03:00 Magnesium Hydroxide 30 ml 30 ml DAILY PRN PO CONSTIPATION Last administered on 04/28/17 18:33; Admin Dose 30 ML; Start 04/17/17 at 11:30 Ampicillin Sodium/ Sulbactam Sodium (Unasyn 1.5gm/NS (Pmx)) 50 ml @ 100 mls/hr Q6 IVPB Last administered on 05/17/17 12:51; Admin Dose 100 MLS/HR; Start at 18:00 Fentanyl (Duragesic 12 Mcg/Hr Patch) 1 patch Q72H TRANSDERM Last administered on 05/16/17 06:11; Admin Dose 1 PATCH; Start 04/22/17 at 05:30 Morphine Sulfate (morphine) 1 mg Q4H PRN IV SEVERE PAIN LEVEL 7-10 Last administered on 05/16/17 01:08; Admin Dose 1 MG; Start 04/22/17 at 17:30 Metoclopramide HCl (Reglan) 10 mg Q6H PRN IV NAUSEA Last administered on 20:18; Admin Dose 10 MG; Start 04/22/17 at 21:00 Enoxaparin Sodium (Lovenox) 30 mg DAILY SC Last administered on 05/17/17 10: 19; Admin Dose 30 MG; Start 04/23/17 at 20:30 Acetaminophen (Tylenol Supp) 650 mg Q6H PRN [place] FEVER GREATER THAN 100.6; Start 04/23/17 at 20:30 Acetaminophen (Tylenol Tab) 650 mg Q6H PRN PO PAIN AND OR ELEVATED TEMP Last administered on 05/12/17 15:00; Admin Dose 650 MG; Start 04/23/17 at 20:30 Lactobacillus Acidophilus/ Rhamnosus (Culturelle) 1 cap BID PO Last administered on 05/17/17 09:40; Admin Dose 1 CAP; Start 04/24/17 at 11:30 Diagnostic Test (Pha) (Accu-Chek) 1 ea 02 XX ; Start 04/26/17 at 02:00 Docusate Sodium (Colace) 100 mg BID PO Last administered on 05/17/17 09:40; Admin Dose 100 MG; Start 04/30/17 at 21:00 Potassium Chloride (Klor-Con 20) 20 meq BID PO Last administered on 05/17/17 09:39; Admin Dose 20 MEQ; Start 05/04/17 at 21:00 Nalbuphine HCl (Nubain) 10 mg Q4H PRN IV PRURITUS; Start 05/07/17 at 13:30 Ondansetron HCl (Zofran Inj) 4 mg Q6H PRN IV NAUSEA AND/OR VOMITING; Start 05/07/17 at 13:30 Metoprolol Tartrate (Lopressor) 25 mg BID PO Last administered on 05/16/17 20 :38; Admin Dose 25 MG; Start 05/08/17 at 14:00 AARON ANSARI M.D. May 17, 2017 13:50
[2017-05-17] MEDS: ACETAMINOPHEN 325 MG TAB PO PRN (23:43)
[2017-05-18] VITALS (12 sets, daily range): BP systolic 99–115; BP diastolic 55–63; PULSE 71–85; RESP 17–20
[2017-05-18] MEDS: ACCU-CHEK XX SCH (02:00)
[2017-05-18] MEDS: PANTOPRAZOLE (EC) 40 MG TAB PO SCH (05:57)
[2017-05-18] MEDS: ACETAMINOPHEN 325 MG TAB PO PRN (05:57)
[2017-05-18] MEDS: FUROSEMIDE 20 MG TAB PO SCH (05:57)
[2017-05-18] MEDS: AMPICILLIN/SULB 1.5GM/NS (PMX) 50 ML IVPB SCH ×3 (05:57→17:31)
--- NOTE | 2017-05-18 07:15 | PN ---
DATE: 05/17/2017 SUBJECTIVE: Does not have any specific complaint, very minimal pain, no shortness of breath, at least in the bed. The patient is on telemetry. No nausea, no vomiting, tolerating diet, has had a bowel movement. OBJECTIVE: GENERAL: Awake, alert, oriented, sitting, moving in the bed. VITAL SIGNS: Temperature 98.2, heart rate 84, regular, respirations 16, blood pressure 96/56, saturation 97% on 2 liters nasal cannula. HEART: Regular. LUNGS: Decreased breathing sounds, right lung. ABDOMEN: Soft. Pigtail catheter is Drainage is 20 mL included the fluid that has been used for flushing. Color is light serous. LABORATORY DATA: No hematology was done today. IMAGING: Chest x-ray was done yesterday and the report is as follows: 1. Complete opacification on the right upper lobe representing atelectasis or pneumonia. 2. Loculated small right pleural effusions. 3. Patchy right medial lobe and lower lobe air space opacities representing atelectasis or pneumonia. This is read by radiologist yesterday. Repeat CT scan of the abdomen was done yesterday and the conclusion is as follows: 1. Interval decrease fluid around the pigtail loop of the anterior approach to drain with tracking towards a larger multiloculated fluid collection, along the anterior, lateral right hepatic lobe measuring 5.8 x 1.8 x 3.4 cm. Consider replacement/repositioning if minimal drainage output. 2. Interval removal of the superior and lateral drain, with on multiloculated hepatic dome collection. 3. Smaller right pleural effusion with pleural thickening, pleural enhancement and foci of air within the pleural fluid which may represent infection/empyema. ASSESSMENT AND PLAN: Considering the above findings, and considering the patient's physical examination, clinically the patient is stable. No abdominal tenderness. The problem with the chest is referred to Dr. Jackson, thoracic surgeon, who did the VATS, and the district traffic chief who is on the case. I will discuss with Dr. Dior on Thursday, so that they can follow and take necessary measures for clearing the possible atelectasis. On the other hand, problem with the liver, I will check on Thursday with the imaging radiologist if we should remove the pigtail drain and if they will be able to place another drain percutaneously for the drainage of the lateral abscess in the right lobe. Meanwhile, the patient will be continued on antibiotics per infectious disease recommendation, patient should get at least 6 weeks of antibiotics. Dictated By: JOHN JUSTIN/KT Conf#: [id number] DID#: [id number] MTDD
--- NOTE | 2017-05-18 07:22 | PN ---
DATE: 05/16/2017 The patient is in telemetry, status post decortication of the right lung. Also , status post placement of pigtail catheter in the liver abscess cavity. SUBJECTIVE: Feels okay. Not complaining of pain. on liquid diet. Bowel movement okay. No nausea, no vomiting, and no fever. OBJECTIVE GENERAL: Awake, alert, oriented x3. VITAL SIGNS: Temperature 98.1, 88 heart rate, regular sinus rhythm and rate, 18 respirations, blood pressure 101/59, saturation 96% on 2 liters nasal cannula. HEART: Regular. LUNGS: Decreased breathing sound on the right side. ABDOMEN: Soft. Pigtail drain has drained in 24-hour 10 mL to 20 mL fluid, which is clear and slightly serous fluid. No purulence. LABORATORY DATA: Today, sodium and potassium normal. BUN and creatinine normal. CBC 8400, with 59% neutrophils, hemoglobin 8.9, hematocrit 27.7. ASSESSMENT AND PLAN: A 66-year-old female presented with sepsis, found to have a liver abscess, and has been taken care of by percutaneous drainage. There are still a few pockets left that cannot be drained percutaneously, per radiologist's opinion, and trying to dissolve them by antibiotic IV. Also, the patient developed pleural effusion, which was taken care of eventually by chest tube placement and, after that, because of loculation, by decortification. Now , the patient is in telemetry from cardiology point of view, being followed by a political science chair and awaiting today's chest x-ray and CT scan of the abdomen with IV contrast to find out about the status of the liver abscess. We will continue to follow if CT scan is taken and the result is available. Dictated By: JOHN BURGOS MD PS/KT Conf#: [id number] DID#: [id number] CC: DARREL BURT MD;*EndCC* MTDD
[2017-05-18] MEDS: Insulin NOVOLOG SS MILD Algorithm (SS with meals and bedtime) SC SCH ×4 (07:25→21:00)
[2017-05-18 07:40] LABS: BASOPHILS % 0.6 % (0.0-2.0); EOSINOPHILS # 0.2 10^3/ul (0.0-0.5); EOSINOPHILS % 2.6 % (0.0-7.0); HEMATOCRIT 28.6 % (37.0-47.0); HEMOGLOBIN 9.2 g/dl (12.0-16.0); LYMPHOCYTES # 1.8 10^3/ul (0.8-2.9); MEAN CORPUSCULAR HEMOGLOBIN 30.6 pg (29.0-33.0); MEAN CORPUSCULAR HGB CONC 32.2 g/dl (32.0-37.0); MONOCYTE # 0.8 10^3/ul (0.3-0.9); MONOCYTES % 11.4 % (0.0-11.0); NEUTROPHIL # 4.1 10^3/ul (1.6-7.5); NEUTROPHILS % 58.8 % (39.0-77.0); PLATELET COUNT 523 10^3/UL (140-415); RED BLOOD COUNT 3.01 10^6/ul (4.20-5.40); RED CELL DISTRIBUTION WIDTH 14.2 % (11.5-14.5)
[2017-05-18 08:16] LABS: CALCIUM 9.9 mg/dl (8.4-10.2); CREATININE 0.39 mg/dl (0.44-1.00); POTASSIUM 4.4 mmol/L (3.5-5.1)
[2017-05-18] MEDS: DOCUSATE SODIUM 100 MG CAP PO SCH ×2 (08:42→21:41)
[2017-05-18] MEDS: POTASSIUM CHLORIDE (SR) 20 MEQ TAB PO SCH ×2 (08:42→21:41)
[2017-05-18] MEDS: METOPROLOL 25 MG TAB PO SCH ×2 (08:43→21:40)
[2017-05-18] MEDS: LACTOBACILLUS RHAMNOSUS CAP PO SCH ×2 (08:43→22:42)
[2017-05-18] MEDS: ENOXAPARIN 30 MG/0.3 ML SYG SC SCH (08:47)
--- NOTE | 2017-05-18 10:17 | CONS ---
Date/Time of Note Date/Time of Note DATE: 05/18/17 TIME: 10:13 Assessment/Plan Assessment/Plan Chief Complaint/Hosp Course Problems: Additional Assessment/Plan 1. Bilateral pleural effusions right more than left, status post right thoracentesis 04/20. S/p right chest tube insertion on 04/[address] Jackson, vascular surgery. S/p right thoracentesis 04/26. - s/p Right VATS decortication 05/07/2017 2. Acute hyponatremia 2/2 Hypovolemic hyponatremia - Resolved 2. sepsis due to liver abscess 3. Hepatic abscess oN CT scan s/p CT guided drainage on 04/15/17 and 04/23/17 4. Acute transaminitis 5. h/o Colon CA s/p previous Surgery 6. Hypokalemia 7. acute resp failiue due to # 1 8. hypomagnesemia Plan : S/p Right VATS decortication, chest tube discontinued , CXR showed complete opacificatin of rigth lung - pt stable respiratio, starution ok with 2 L NC , pulmonary has been following lasix 20mg pO BID with KCL replacement IV abx as per ID, renally dose all abx abdominal drain in place, plan as per G surge will follow up Consultation Date/Type/Reason Admit Date/Time Apr 13, 2017 at 19:51 Initial Consult Date 04/13/17 Type of Consultation: NEPHROLOGY Referring Provider: DARREL BURT MD Exam/Review of Systems Vital Signs Vitals Vital Signs Date Time Temp Pulse Resp B/P Pulse Ox O2 Delivery O2 Flow Rate FiO2 05/18/17 09:07 71 05/18/17 07:39 97.9 19 102/61 100 05/18/17 02:11 2.0 27 05/17/17 20:00 Nasal Cannula Intake and Output 05/17/17 05/17/17 05/18/17 15:00 23:00 07:00 Intake Total 50 ml 770 ml 500 ml Output Total 40 ml Balance 50 ml 770 ml 460 ml Exam Constitutional: alert, frail, oriented Respiratory: diminished breath sounds,, RML and RLL rales Cardiovascular: nl pulses, regular rate and rhythm Musculoskeletal: nl extremities to inspection Extremities: No edema 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: WASH OPERATOR II-XII intact, 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 ABD: soft, NT, + abdominal drain in place Results Result Diagram: 05/18/17 0654 05/18/17 0654 Results 24 hrs Laboratory Tests Test 05/17/17 12:49 05/17/17 17:28 05/17/17 20:46 05/18/17 06:54 Bedside Glucose 113 103 113 White Blood Count 7.0 Red Blood Count 3.01 L Hemoglobin 9.2 L Hematocrit 28.6 L Mean Corpuscular Volume 95.0 Mean Corpuscular Hemoglobin 30.6 Mean Corpuscular Hemoglobin Concent 32.2 Red Cell Distribution Width 14.2 Platelet Count 523 H Mean Platelet Volume 8.0 Neutrophils % 58.8 Lymphocytes % 26.0 Monocytes % 11.4 H Eosinophils % 2.6 Basophils % 0.6 Nucleated Red Blood Cells % 0.0 Neutrophils # 4.1 Lymphocytes # 1.8 Monocytes # 0.8 Eosinophils # 0.2 Basophils # 0.0 Nucleated Red Blood Cells # 0.0 Sodium Level 137 Potassium Level 4.4 Chloride Level 96 L Carbon Dioxide Level 33 H Anion Gap 12 Blood Urea Nitrogen 11 Creatinine 0.39 L Glucose Level 114 Calcium Level 9.9 Test 05/18/17 07:54 Bedside Glucose 120 Medications Medications Current Medications Miscellaneous Information 1 ea NOTE XX ; Start 04/13/17 at 21:30 Glucose (Glutose) 15 gm Q15M PRN PO DECREASED GLUCOSE; Start 04/13/17 at 21:30 Glucose (Glutose) 22.5 gm Q15M PRN PO DECREASED GLUCOSE; Start 04/13/17 at 21: 30 Dextrose (D50w Syringe) 25 ml Q15M PRN IV DECREASED GLUCOSE; Start 04/13/17 at 21:30 Dextrose (D50w Syringe) 50 ml Q15M PRN IV DECREASED GLUCOSE; Start 04/13/17 at 21:30 Glucagon (Glucagen) 1 mg Q15M PRN IM DECREASED GLUCOSE; Start 04/13/17 at 21:30 Glucose (Glutose) 15 gm Q15M PRN BUCCAL DECREASED GLUCOSE; Start 04/13/17 at 21 :30 Ondansetron HCl (Zofran Inj) 4 mg Q6 PRN IV NAUSEA AND/OR VOMITING Last administered on 04/26/17t 20:25; Admin Dose 4 MG; Start 04/13/17 at 21:30 Guaifenesin/ Dextromethorphan (Robitussin Dm Liquid Cup) 5 ml Q4H PRN PO COUGH Last administered on 04/19/17 05:09; Admin Dose 5 ML; Start 04/15/17 at 16:30 Pantoprazole (Protonix Tab) 40 mg DAILY@06 PO Last administered on 05/18/17 05:57; Admin Dose 40 MG; Start 04/17/17 at 06:00 Acetaminophen (Tylenol Tab) 500 mg Q6H PRN PO PAIN AND OR ELEVATED TEMP Last administered on 05/06/17 03:25; Admin Dose 500 MG; Start 04/17/17 at 03:00 Magnesium Hydroxide 30 ml 30 ml DAILY PRN PO CONSTIPATION Last administered on 04/28/17 18:33; Admin Dose 30 ML; Start 04/17/17 at 11:30 Ampicillin Sodium/ Sulbactam Sodium (Unasyn 1.5gm/NS (Pmx)) 50 ml @ 100 mls/hr Q6 IVPB Last administered on 05/18/17 05:57; Admin Dose 100 MLS/HR; Start at 18:00 Fentanyl (Duragesic 12 Mcg/Hr Patch) 1 patch Q72H TRANSDERM Last administered on 05/16/17 06:11; Admin Dose 1 PATCH; Start 04/22/17 at 05:30 Morphine Sulfate (morphine) 1 mg Q4H PRN IV SEVERE PAIN LEVEL 7-10 Last administered on 05/16/17 01:08; Admin Dose 1 MG; Start 04/22/17 at 17:30 Metoclopramide HCl (Reglan) 10 mg Q6H PRN IV NAUSEA Last administered on 20:18; Admin Dose 10 MG; Start 04/22/17 at 21:00 Enoxaparin Sodium (Lovenox) 30 mg DAILY SC Last administered on 05/18/17 08: 47; Admin Dose 30 MG; Start 04/23/17 at 20:30 Acetaminophen (Tylenol Supp) 650 mg Q6H PRN [place] FEVER GREATER THAN 100.6; Start 04/23/17 at 20:30 Acetaminophen (Tylenol Tab) 650 mg Q6H PRN PO PAIN AND OR ELEVATED TEMP Last administered on 05/18/17 05:57; Admin Dose 650 MG; Start 04/23/17 at 20:30 Lactobacillus Acidophilus/ Rhamnosus (Culturelle) 1 cap BID PO Last administered on 05/18/17 08:43; Admin Dose 1 CAP; Start 04/24/17 at 11:30 Diagnostic Test (Pha) (Accu-Chek) 1 ea 02 XX ; Start 04/26/17 at 02:00 Docusate Sodium (Colace) 100 mg BID PO Last administered on 05/18/17 08:42; Admin Dose 100 MG; Start 04/30/17 at 21:00 Potassium Chloride (Klor-Con 20) 20 meq BID PO Last administered on 05/18/17 08:42; Admin Dose 20 MEQ; Start 05/04/17 at 21:00 Nalbuphine HCl (Nubain) 10 mg Q4H PRN IV PRURITUS; Start 05/07/17 at 13:30 Ondansetron HCl (Zofran Inj) 4 mg Q6H PRN IV NAUSEA AND/OR VOMITING; Start 05/07/17 at 13:30 Metoprolol Tartrate (Lopressor) 25 mg BID PO Last administered on 05/16/17 20 :38; Admin Dose 25 MG; Start 05/08/17 at 14:00 NGOC GARZA MD May 18, 2017 10:17
--- NOTE | 2017-05-18 11:01 | CONS ---
Date/Time of Note Date/Time of Note DATE: 05/18/17 TIME: 10:58 Assessment/Plan Assessment/Plan Chief Complaint/Hosp Course IMP: 1.Hypertension- on low side today. ? overdiuresis 2.abnl ecg-negative trop x 3/NL EF by echo. NO CP 3.Liver abscess s/p CT guided drainage 4.H/O lung ca s/p resection with lung nodules by CT? 5.Lung nodules 6. Hyponatremia-improved 7. Effusion s/p VATS/decortication Recc: -tele -s/p VATS/decortication -Continue abx's -F/U cx data -Continue BB as tolerated -pain control -Continue lasix PO but will decrease to daily and follow volume status closely Problems: Consultation Date/Type/Reason Admit Date/Time Apr 13, 2017 at 19:51 Initial Consult Date 04/13/17 Type of Consultation: cardiology Reason for Consultation CHF Referring Provider: DARREL BURT MD Exam/Review of Systems Vital Signs Vitals Vital Signs Date Time Temp Pulse Resp B/P Pulse Ox O2 Delivery O2 Flow Rate FiO2 05/18/17 09:25 98 2.0 05/18/17 09:07 71 05/18/17 08:00 Nasal Cannula 05/18/17 07:39 97.9 19 102/61 05/18/17 02:11 27 Intake and Output 05/17/17 05/17/17 05/18/17 15:00 23:00 07:00 Intake Total 50 ml 770 ml 500 ml Output Total 40 ml Balance 50 ml 770 ml 460 ml Exam Review of Systems: CONSTITUTIONAL: No fevers, chills. PULMONARY: No sob CARDIOVASCULAR: No chest pain/palpitations GASTROINTESTINAL: No nausea/vomiting. GENITOURINARY: No hematuria/dysuria. MUSCULOSKELETAL: No myagias/arthalgias. PSYCHIATRIC: The patient denies depression. NEUROLOGIC: No weakness Constitutional: alert Psych: no complaints Head: normocephalic ENMT: mucosa pink and moist Neck: jvd (8 cm water), supple Respiratory: diminished breath sounds (R>L) Cardiovascular: regular rate and rhythm Gastrointestinal: non-tender, soft Musculoskeletal: muscle weakness (mild generalized) Extremities: edema (none) 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: other (No focal deficits) Results Result Diagram: 05/18/1754 05/18/17653 Results 24 hrs Laboratory Tests Test 05/17/17 12:49 05/17/17 17:28 05/17/17 20:46 05/18/17 06:54 Bedside Glucose 113 103 113 White Blood Count 7.0 Red Blood Count 3.01 L Hemoglobin 9.2 L Hematocrit 28.6 L Mean Corpuscular Volume 95.0 Mean Corpuscular Hemoglobin 30.6 Mean Corpuscular Hemoglobin Concent 32.2 Red Cell Distribution Width 14.2 Platelet Count 523 H Mean Platelet Volume 8.0 Neutrophils % 58.8 Lymphocytes % 26.0 Monocytes % 11.4 H Eosinophils % 2.6 Basophils % 0.6 Nucleated Red Blood Cells % 0.0 Neutrophils # 4.1 Lymphocytes # 1.8 Monocytes # 0.8 Eosinophils # 0.2 Basophils # 0.0 Nucleated Red Blood Cells # 0.0 Sodium Level 137 Potassium Level 4.4 Chloride Level 96 L Carbon Dioxide Level 33 H Anion Gap 12 Blood Urea Nitrogen 11 Creatinine 0.39 L Glucose Level 114 Calcium Level 9.9 Test 05/18/17 07:54 Bedside Glucose 120 Medications Medications Current Medications Miscellaneous Information 1 ea NOTE XX ; Start 04/13/17 at 21:30 Glucose (Glutose) 15 gm Q15M PRN PO DECREASED GLUCOSE; Start 04/13/17 at 21:30 Glucose (Glutose) 22.5 gm Q15M PRN PO DECREASED GLUCOSE; Start 04/13/17 at 21: 30 Dextrose (D50w Syringe) 25 ml Q15M PRN IV DECREASED GLUCOSE; Start 04/13/17 at 21:30 Dextrose (D50w Syringe) 50 ml Q15M PRN IV DECREASED GLUCOSE; Start 04/13/17 at 21:30 Glucagon (Glucagen) 1 mg Q15M PRN IM DECREASED GLUCOSE; Start 04/13/17 at 21:30 Glucose (Glutose) 15 gm Q15M PRN BUCCAL DECREASED GLUCOSE; Start 04/13/17 at 21 :30 Ondansetron HCl (Zofran Inj) 4 mg Q6 PRN IV NAUSEA AND/OR VOMITING Last administered on 04/26/17 20:25; Admin Dose 4 MG; Start 04/13/17 at 21:30 Guaifenesin/ Dextromethorphan (Robitussin Dm Liquid Cup) 5 ml Q4H PRN PO COUGH Last administered on 04/19/17 05:09; Admin Dose 5 ML; Start 04/15/17 at 16:30 Pantoprazole (Protonix Tab) 40 mg DAILY@06 PO Last administered on 05/18/17 05:57; Admin Dose 40 MG; Start 04/17/17 at 06:00 Acetaminophen (Tylenol Tab) 500 mg Q6H PRN PO PAIN AND OR ELEVATED TEMP Last administered on 05/06/17 03:25; Admin Dose 500 MG; Start 04/17/17 at 03:00 Magnesium Hydroxide 30 ml 30 ml DAILY PRN PO CONSTIPATION Last administered on 04/28/17 18:33; Admin Dose 30 ML; Start 04/17/17 at 11:30 Ampicillin Sodium/ Sulbactam Sodium (Unasyn 1.5gm/NS (Pmx)) 50 ml @ 100 mls/hr Q6 IVPB Last administered on 05/18/17 05:57; Admin Dose 100 MLS/HR; Start at 18:00 Fentanyl (Duragesic 12 Mcg/Hr Patch) 1 patch Q72H TRANSDERM Last administered on 05/16/17 06:11; Admin Dose 1 PATCH; Start 04/22/17 at 05:30 Morphine Sulfate (morphine) 1 mg Q4H PRN IV SEVERE PAIN LEVEL 7-10 Last administered on 05/16/17 01:08; Admin Dose 1 MG; Start 04/22/17 at 17:30 Metoclopramide HCl (Reglan) 10 mg Q6H PRN IV NAUSEA Last administered on 20:18; Admin Dose 10 MG; Start 04/22/17 at 21:00 Enoxaparin Sodium (Lovenox) 30 mg DAILY SC Last administered on 05/18/17 08: 47; Admin Dose 30 MG; Start 04/23/17 at 20:30 Acetaminophen (Tylenol Supp) 650 mg Q6H PRN [place] FEVER GREATER THAN 100.6; Start 04/23/17 at 20:30 Acetaminophen (Tylenol Tab) 650 mg Q6H PRN PO PAIN AND OR ELEVATED TEMP Last administered on 05/18/17 05:57; Admin Dose 650 MG; Start 04/23/17 at 20:30 Lactobacillus Acidophilus/ Rhamnosus (Culturelle) 1 cap BID PO Last administered on 05/18/17 08:43; Admin Dose 1 CAP; Start 04/24/17 at 11:30 Diagnostic Test (Pha) (Accu-Chek) 1 ea 02 XX ; Start 04/26/17 at 02:00 Docusate Sodium (Colace) 100 mg BID PO Last administered on 05/18/17 08:42; Admin Dose 100 MG; Start 04/30/17 at 21:00 Potassium Chloride (Klor-Con 20) 20 meq BID PO Last administered on 05/18/17 08:42; Admin Dose 20 MEQ; Start 05/04/17 at 21:00 Nalbuphine HCl (Nubain) 10 mg Q4H PRN IV PRURITUS; Start 05/07/17 at 13:30 Ondansetron HCl (Zofran Inj) 4 mg Q6H PRN IV NAUSEA AND/OR VOMITING; Start 05/07/17 at 13:30 Metoprolol Tartrate (Lopressor) 25 mg BID PO Last administered on 05/16/17 20 :38; Admin Dose 25 MG; Start 05/08/17 at 14:00 LILIANA BARKSDALE May 18, 2017 11:01
--- NOTE | 2017-05-18 11:08 | CONS ---
Date/Time of Note Date/Time of Note DATE: 05/18/17 TIME: 11:06 Assessment/Plan Assessment/Plan Chief Complaint/Hosp Course - severe sepsis due to pyogenic liver abscess, loculated pleural effusion s/p R thoracotomy, thoracoscopy, total pulmonary decortication on 05/07/2017. Path showed fibrin, necrotic tissue and abscess, no evidence of malignancy. - multiloculated pyogenic liver abscess s/p CT guided drainage catheter placement 04/15/2017, 04/23/2017, s/p repeat drainage 04/27/2017; cultures from gamma hemolytic strep, cultures from 04/23/2017 alpha hemolytic strep. F/ u CT on 05/16/2017 showed persistent multiloculated fluid collection - loculated pleural effusion likely secondary to hepatic process/Hepatic hydrothorax, R>L, s/p R thoracentesis on 04/20/2017, s/p chest tube placement on 04/22/2017 - intermittent diarrhea - normocytic anemia requiring blood transfusion - coagulopathy, improved - Transaminitis, improved - Hyponatremia - CoNS in urine culture with trivial pyuria, likely contaminant - Hx of rectal CA s/p Low anterior resection 08/29/2016 - Severe protein calorie malnutrition - allergy to vancomycin - probable neuropathic pain of R chest wall post surgery recommendations: - I recommend reconsulting IR if repositioning of the external drainage catheter is indicated - continue amp/sulbactam (04/18/2017-); s/p linezolid and pip/tazo (04/13-2016). monitor at least weekly CBC and BMP while Pt's on long-term antibiotic - we recommend long-term (6 weeks at least) antibiotic administration management d/w Pt Problems: Consultation Date/Type/Reason Admit Date/Time Apr 13, 2017 at 19:51 Initial Consult Date 04/21/17 Type of Consultation: ID Referring Provider: DARREL BURT MD 24 HR Interval Summary Constitutional: no complaints Detailed Summary Eyes: no complaints ENT: no complaints Respiratory: no complaints Cardiovascular: no complaints Gastrointestinal: no complaints Genitourinary: no complaints Musculoskeletal: no complaints Skin: other (skin irritation from the tape that was applied to R chest wall) Neurologic: no complaints Exam/Review of Systems Vital Signs Vitals Vital Signs Date Time Temp Pulse Resp B/P Pulse Ox O2 Delivery O2 Flow Rate FiO2 10/16/17 09:25 98 2.0 05/18/17 09:07 71 05/18/17 08:00 Nasal Cannula 05/18/17 07:39 97.9 19 102/61 05/18/17 02:11 27 Intake and Output 05/17/17 05/17/17 05/18/17 15:00 23:00 07:00 Intake Total 50 ml 770 ml 500 ml Output Total 40 ml Balance 50 ml 770 ml 460 ml Exam Constitutional: alert, oriented, well developed Psych: nl mood/affect, no complaints Head: atraumatic, normocephalic Eyes: nl conjunctiva, nl lids ENMT: nl external ears & nose, nl nasal mucosa & septum Neck: supple Respiratory: diminished breath sounds Cardiovascular: nl pulses, regular rate and rhythm Gastrointestinal: non-tender, other (+external drainage cath), soft Musculoskeletal: nl extremities to inspection Extremities: normal pulses, No edema 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: SIGNALS ANALYST II-XII intact, 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, nl speech, nl strength Skin: other (wound of chest wall is well approximated. The skin to which tape was applied appeared non-erythematous and clean) Results Result Diagram: 05/18/17 0654 05/18/17 0654 Results 24 hrs Laboratory Tests Test 05/17/17 12:49 05/17/17 17:28 05/17/17 20:46 05/18/17 06:54 Bedside Glucose 113 103 113 White Blood Count 7.0 Red Blood Count 3.01 L Hemoglobin 9.2 L Hematocrit 28.6 L Mean Corpuscular Volume 95.0 Mean Corpuscular Hemoglobin 30.6 Mean Corpuscular Hemoglobin Concent 32.2 Red Cell Distribution Width 14.2 Platelet Count 523 H Mean Platelet Volume 8.0 Neutrophils % 58.8 Lymphocytes % 26.0 Monocytes % 11.4 H Eosinophils % 2.6 Basophils % 0.6 Nucleated Red Blood Cells % 0.0 Neutrophils # 4.1 Lymphocytes # 1.8 Monocytes # 0.8 Eosinophils # 0.2 Basophils # 0.0 Nucleated Red Blood Cells # 0.0 Sodium Level 137 Potassium Level 4.4 Chloride Level 96 L Carbon Dioxide Level 33 H Anion Gap 12 Blood Urea Nitrogen 11 Creatinine 0.39 L Glucose Level 114 Calcium Level 9.9 Test 05/18/17 07:54 Bedside Glucose 120 Medications Medications Current Medications Miscellaneous Information 1 ea NOTE XX ; Start 04/13/17 at 21:30 Glucose (Glutose) 15 gm Q15M PRN PO DECREASED GLUCOSE; Start 04/13/17 at 21:30 Glucose (Glutose) 22.5 gm Q15M PRN PO DECREASED GLUCOSE; Start 04/13/17 at 21: 30 Dextrose (D50w Syringe) 25 ml Q15M PRN IV DECREASED GLUCOSE; Start 04/13/17 at 21:30 Dextrose (D50w Syringe) 50 ml Q15M PRN IV DECREASED GLUCOSE; Start 04/13/17 at 21:30 Glucagon (Glucagen) 1 mg Q15M PRN IM DECREASED GLUCOSE; Start 04/13/17 at 21:30 Glucose (Glutose) 15 gm Q15M PRN BUCCAL DECREASED GLUCOSE; Start 04/13/17 at 21 :30 Ondansetron HCl (Zofran Inj) 4 mg Q6 PRN IV NAUSEA AND/OR VOMITING Last administered on 04/26/17 20:25; Admin Dose 4 MG; Start 04/13/17 at 21:30 Guaifenesin/ Dextromethorphan (Robitussin Dm Liquid Cup) 5 ml Q4H PRN PO COUGH Last administered on 04/19/17 05:09; Admin Dose 5 ML; Start 04/15/17 at 16:30 Pantoprazole (Protonix Tab) 40 mg DAILY@06 PO Last administered on 05/18/17 05:57; Admin Dose 40 MG; Start 04/17/17 at 06:00 Acetaminophen (Tylenol Tab) 500 mg Q6H PRN PO PAIN AND OR ELEVATED TEMP Last administered on 05/06/17 03:25; Admin Dose 500 MG; Start 04/17/17 at 03:00 Magnesium Hydroxide 30 ml 30 ml DAILY PRN PO CONSTIPATION Last administered on 04/28/17 18:33; Admin Dose 30 ML; Start 04/17/17 at 11:30 Ampicillin Sodium/ Sulbactam Sodium (Unasyn 1.5gm/NS (Pmx)) 50 ml @ 100 mls/hr Q6 IVPB Last administered on 05/18/17 05:57; Admin Dose 100 MLS/HR; Start at 18:00 Fentanyl (Duragesic 12 Mcg/Hr Patch) 1 patch Q72H TRANSDERM Last administered on 05/16/17 06:11; Admin Dose 1 PATCH; Start 04/22/17 at 05:30 Morphine Sulfate (morphine) 1 mg Q4H PRN IV SEVERE PAIN LEVEL 7-10 Last administered on 05/16/17 01:08; Admin Dose 1 MG; Start 04/22/17 at 17:30 Metoclopramide HCl (Reglan) 10 mg Q6H PRN IV NAUSEA Last administered on 20:18; Admin Dose 10 MG; Start 04/22/17 at 21:00 Enoxaparin Sodium (Lovenox) 30 mg DAILY SC Last administered on 05/18/17 08: 47; Admin Dose 30 MG; Start 04/23/17 at 20:30 Acetaminophen (Tylenol Supp) 650 mg Q6H PRN [place] FEVER GREATER THAN 100.6; Start 04/23/17 at 20:30 Acetaminophen (Tylenol Tab) 650 mg Q6H PRN PO PAIN AND OR ELEVATED TEMP Last administered on 05/18/17 05:57; Admin Dose 650 MG; Start 04/23/17 at 20:30 Lactobacillus Acidophilus/ Rhamnosus (Culturelle) 1 cap BID PO Last administered on 05/18/17 08:43; Admin Dose 1 CAP; Start 04/24/17 at 11:30 Diagnostic Test (Pha) (Accu-Chek) 1 ea 02 XX ; Start 04/26/17 at 02:00 Docusate Sodium (Colace) 100 mg BID PO Last administered on 05/18/17 08:42; Admin Dose 100 MG; Start 04/30/17 at 21:00 Potassium Chloride (Klor-Con 20) 20 meq BID PO Last administered on 05/18/17 08:42; Admin Dose 20 MEQ; Start 05/04/17 at 21:00 Nalbuphine HCl (Nubain) 10 mg Q4H PRN IV PRURITUS; Start 05/07/17 at 13:30 Ondansetron HCl (Zofran Inj) 4 mg Q6H PRN IV NAUSEA AND/OR VOMITING; Start 05/07/17 at 13:30 Metoprolol Tartrate (Lopressor) 25 mg BID PO Last administered on 05/16/17 20 :38; Admin Dose 25 MG; Start 05/08/17 at 14:00 Furosemide (Lasix) 20 mg DAILY PO ; Start 05/19/17 at 09:00; Status UNV AARON ANSARI M.D. May 18, 2017 11:08
--- NOTE | 2017-05-18 18:00 | PN ---
Date/Time of Note Date/Time of Note DATE: 05/18/17 TIME: 17:57 Assessment/Plan VTE Prophylaxis VTE Prophylaxis Intervention: SCD's Lines/Catheters IV [facility] Urinary Cath still in place: No Assessment/Plan Chief Complaint/Hosp Course Patient is comfortable on supplemental oxygen, denies nausea vomiting. Assessment/Plan - Bilateral pleural effusions right more than left, status post right thoracentesis 04/20. S/p right chest tube insertion on 04/[address] Jackson, vascular surgery. S/p right thoracentesis 04/26. S/P Right VATS decortication on 05/07. CT removed 05/12. - Acute respiratory failure secondary to #1, Dr. Damico is following in pulmonology consultation continue oxygen oxygen supplementation - Severe sepsis 09/04 to liver abscess, resolving. Continue antibiotics per ID. is following in infection disease consultation - Liver abscess unchanged per recent CT, s/p CT guided drainage 04/15/2017, s/p CT guided percutaneous drainage of liver abscess 04/23, status post CT-guided liver abscess drainage 04/27 - Normocytic anemia requiring blood transfusion - Hx of rectal CA s/p Low anterior resection 08/29/2016 Further recommendations based on clinical course. Plan of care discussed with Dr. Dior Problems: Exam/Review of Systems Vital Signs Vitals Vital Signs Date Time Temp Pulse Resp B/P Pulse Ox O2 Delivery O2 Flow Rate FiO2 05/18/17 16:36 82 05/18/17 16:13 98.0 19 105/55 100 05/18/17 09:25 2.0 05/18/17 08:00 Nasal Cannula 05/18/17 02:11 27 Intake and Output 05/17/17 05/17/17 05/18/17 15:00 23:00 07:00 Intake Total 50 ml 770 ml 500 ml Output Total 40 ml Balance 50 ml 770 ml 460 ml Exam Constitutional: alert, oriented Neck: supple Respiratory: normal air movement Cardiovascular: nl pulses Gastrointestinal: non-tender, other (Hepatic drain), soft Extremities: normal pulses Results Result Diagram: 05/18/17 0654 05/18/17 0654 Results 24 hrs Laboratory Tests Test 05/17/17 20:46 05/18/17 06:54 05/18/17 07:54 05/18/17 12:05 Bedside Glucose 113 120 119 White Blood Count 7.0 Red Blood Count 3.01 L Hemoglobin 9.2 L Hematocrit 28.6 L Mean Corpuscular Volume 95.0 Mean Corpuscular Hemoglobin 30.6 Mean Corpuscular Hemoglobin Concent 32.2 Red Cell Distribution Width 14.2 Platelet Count 523 H Mean Platelet Volume 8.0 Neutrophils % 58.8 Lymphocytes % 26.0 Monocytes % 11.4 H Eosinophils % 2.6 Basophils % 0.6 Nucleated Red Blood Cells % 0.0 Neutrophils # 4.1 Lymphocytes # 1.8 Monocytes # 0.8 Eosinophils # 0.2 Basophils # 0.0 Nucleated Red Blood Cells # 0.0 Sodium Level 137 Potassium Level 4.4 Chloride Level 96 L Carbon Dioxide Level 33 H Anion Gap 12 Blood Urea Nitrogen 11 Creatinine 0.39 L Glucose Level 114 Calcium Level 9.9 Test 05/18/17 17:30 Bedside Glucose 105 Medications Medications Current Medications Miscellaneous Information 1 ea NOTE XX ; Start 04/13/17 at 21:30 Glucose (Glutose) 15 gm Q15M PRN PO DECREASED GLUCOSE; Start 04/13/17 at 21:30 Glucose (Glutose) 22.5 gm Q15M PRN PO DECREASED GLUCOSE; Start 04/13/17 at 21: 30 Dextrose (D50w Syringe) 25 ml Q15M PRN IV DECREASED GLUCOSE; Start 04/13/17 at 21:30 Dextrose (D50w Syringe) 50 ml Q15M PRN IV DECREASED GLUCOSE; Start 04/13/17 at 21:30 Glucagon (Glucagen) 1 mg Q15M PRN IM DECREASED GLUCOSE; Start 04/13/17 at 21:30 Glucose (Glutose) 15 gm Q15M PRN BUCCAL DECREASED GLUCOSE; Start 04/13/17 at 21 :30 Ondansetron HCl (Zofran Inj) 4 mg Q6 PRN IV NAUSEA AND/OR VOMITING Last administered on 04/26/17 20:25; Admin Dose 4 MG; Start 04/13/17 at 21:30 Guaifenesin/ Dextromethorphan (Robitussin Dm Liquid Cup) 5 ml Q4H PRN PO COUGH Last administered on 04/19/17 05:09; Admin Dose 5 ML; Start 04/15/17 at 16:30 Pantoprazole (Protonix Tab) 40 mg DAILY@06 PO Last administered on 05/18/17 05:57; Admin Dose 40 MG; Start 04/17/17 at 06:00 Acetaminophen (Tylenol Tab) 500 mg Q6H PRN PO PAIN AND OR ELEVATED TEMP Last administered on 05/06/17 03:25; Admin Dose 500 MG; Start 04/17/17 at 03:00 Magnesium Hydroxide 30 ml 30 ml DAILY PRN PO CONSTIPATION Last administered on 04/28/17 18:33; Admin Dose 30 ML; Start 04/17/17 at 11:30 Ampicillin Sodium/ Sulbactam Sodium (Unasyn 1.5gm/NS (Pmx)) 50 ml @ 100 mls/hr Q6 IVPB Last administered on 05/18/17 17:31; Admin Dose 100 MLS/HR; Start at 18:00 Fentanyl (Duragesic 12 Mcg/Hr Patch) 1 patch Q72H TRANSDERM Last administered on 05/16/17 06:11; Admin Dose 1 PATCH; Start 04/22/17 at 05:30 Morphine Sulfate (morphine) 1 mg Q4H PRN IV SEVERE PAIN LEVEL 7-10 Last administered on 05/16/17 01:08; Admin Dose 1 MG; Start 04/22/17 at 17:30 Metoclopramide HCl (Reglan) 10 mg Q6H PRN IV NAUSEA Last administered on 20:18; Admin Dose 10 MG; Start 04/22/17 at 21:00 Enoxaparin Sodium (Lovenox) 30 mg DAILY SC Last administered on 05/18/17 08: 47; Admin Dose 30 MG; Start 04/23/17 at 20:30 Acetaminophen (Tylenol Supp) 650 mg Q6H PRN [place] FEVER GREATER THAN 100.6; Start 04/23/17 at 20:30 Acetaminophen (Tylenol Tab) 650 mg Q6H PRN PO PAIN AND OR ELEVATED TEMP Last administered on 05/18/17 05:57; Admin Dose 650 MG; Start 04/23/17 at 20:30 Lactobacillus Acidophilus/ Rhamnosus (Culturelle) 1 cap BID PO Last administered on 05/18/17 08:43; Admin Dose 1 CAP; Start 04/24/17 at 11:30 Diagnostic Test (Pha) (Accu-Chek) 1 ea 02 XX ; Start 04/26/17 at 02:00 Docusate Sodium (Colace) 100 mg BID PO Last administered on 05/18/17 08:42; Admin Dose 100 MG; Start 04/30/17 at 21:00 Potassium Chloride (Klor-Con 20) 20 meq BID PO Last administered on 05/18/17 08:42; Admin Dose 20 MEQ; Start 05/04/17 at 21:00 Nalbuphine HCl (Nubain) 10 mg Q4H PRN IV PRURITUS; Start 05/07/17 at 13:30 Ondansetron HCl (Zofran Inj) 4 mg Q6H PRN IV NAUSEA AND/OR VOMITING; Start 05/07/17 at 13:30 Metoprolol Tartrate (Lopressor) 25 mg BID PO Last administered on 05/16/17 20 :38; Admin Dose 25 MG; Start 05/08/17 at 14:00 Furosemide (Lasix) 20 mg DAILY PO ; Start 05/19/17 at 09:00 WINDY EMERY May 18, 2017 18:00
[2017-05-19] VITALS (13 sets, daily range): BP systolic 98–112; BP diastolic 56–77; PULSE 75–90; RESP 16–20
[2017-05-19] MEDS: AMPICILLIN/SULB 1.5GM/NS (PMX) 50 ML IVPB SCH ×5 (00:16→23:37)
[2017-05-19] MEDS: ACCU-CHEK XX SCH (01:05)
[2017-05-19] MEDS: PANTOPRAZOLE (EC) 40 MG TAB PO SCH (06:20)
[2017-05-19] MEDS: FENTAnyl PATCH 12 MCG/HR TRANSDERM SCH (06:33)
[2017-05-19 06:34] LABS: BASOPHILS % 0.5 % (0.0-2.0); EOSINOPHILS # 0.2 10^3/ul (0.0-0.5); EOSINOPHILS % 2.6 % (0.0-7.0); HEMATOCRIT 27.2 % (37.0-47.0); HEMOGLOBIN 8.6 g/dl (12.0-16.0); LYMPHOCYTES # 2.1 10^3/ul (0.8-2.9); LYMPHOCYTES % 28.1 % (15.0-51.0); MEAN CORPUSCULAR HEMOGLOBIN 29.9 pg (29.0-33.0); MEAN CORPUSCULAR HGB CONC 31.6 g/dl (32.0-37.0); MEAN CORPUSCULAR VOLUME 94.4 fl (82.0-101.0); MEAN PLATELET VOLUME 7.9 fl (7.4-10.4); MONOCYTE # 0.8 10^3/ul (0.3-0.9); MONOCYTES % 10.4 % (0.0-11.0); NEUTROPHIL # 4.4 10^3/ul (1.6-7.5); NEUTROPHILS % 57.9 % (39.0-77.0); PLATELET COUNT 511 10^3/UL (140-415); RED BLOOD COUNT 2.88 10^6/ul (4.20-5.40); RED CELL DISTRIBUTION WIDTH 14.2 % (11.5-14.5); WHITE BLOOD COUNT 7.6 10^3/ul (4.8-10.8)
[2017-05-19 07:07] LABS: CALCIUM 9.6 mg/dl (8.4-10.2); CREATININE 0.46 mg/dl (0.44-1.00); POTASSIUM 4.2 mmol/L (3.5-5.1)
[2017-05-19] MEDS: Insulin NOVOLOG SS MILD Algorithm (SS with meals and bedtime) SC SCH ×4 (07:25→21:00)
[2017-05-19] MEDS: POTASSIUM CHLORIDE (SR) 20 MEQ TAB PO SCH ×2 (08:11→20:57)
[2017-05-19] MEDS: LACTOBACILLUS RHAMNOSUS CAP PO SCH ×2 (08:11→20:57)
[2017-05-19] MEDS: DOCUSATE SODIUM 100 MG CAP PO SCH ×2 (08:11→20:56)
[2017-05-19] MEDS: ENOXAPARIN 30 MG/0.3 ML SYG SC SCH (08:18)
[2017-05-19] MEDS: METOPROLOL 25 MG TAB PO SCH ×2 (08:19→20:57)
[2017-05-19] MEDS: FUROSEMIDE 20 MG TAB PO SCH (08:26)
--- NOTE | 2017-05-19 09:03 | CONS ---
Date/Time of Note Date/Time of Note DATE: 05/19/17 TIME: 09:01 Assessment/Plan Assessment/Plan Additional Assessment/Plan 1.Hypertension- on low side today. ? overdiuresis - BETTER now, will monitor now STABLE 2.abnl ecg-negative trop x 3/NL EF by echo. NO CP - no intervention planned - no ectoipy on tele - SINUS now - IMPROVED HR, better overall 3.Liver abscess s/p CT guided drainage - on anti_bx, ID folllows 4.H/O lung ca s/p resection with lung nodules by CT? - VATS Rx 5.Lung nodules 6. Hyponatremia 7. Effusion s/p VATS/decortication - con;t to recover - IMPROVED Consultation Date/Type/Reason Admit Date/Time Apr 13, 2017 at 19:51 Initial Consult Date 04/13/17 Type of Consultation: ID Referring Provider: DARREL BURT MD 24 HR Interval Summary Free Text/Dictation IMPROVED HR, better overall ROS: No fever, no chills, no nausea, no vomiting, no diarrhea/constipation No recent weight changes No chest pain, no PND, no orthopnea No dizziness, blurred vision No thirst, no heat or cold intolerance Exam/Review of Systems Vital Signs Vitals Vital Signs Date Time Temp Pulse Resp B/P Pulse Ox O2 Delivery O2 Flow Rate FiO2 05/19/17 08:25 76 05/19/17 07:52 98.0 18 102/57 100 05/19/17 03:04 2.0 05/19/17 00:00 Nasal Cannula 05/18/17 02:11 27 Intake and Output 05/18/17 05/18/17 05/19/17 15:00 23:00 07:00 Intake Total 50 ml 1650 ml 220 ml Output Total 0 ml 1400 ml Balance 50 ml 1650 ml -1180 ml Exam General: WN/WD/NAD, AOx 3 HEENT: Unicetric/atraumatic/EOMI (follow commands) NECK: JVD elevated, no thyromegaly Lymph: no lymphadenopathy HEART: regular with no S3, II/ systolic murmur at apex LUNGS: Coarse sounds, post VATS ABD: soft, NT, ND, +BS : Intact Neuro: non focal SKIN: chronic changes EXT: trace edema Results Result Diagram: 05/19/17 0549 05/19/17 0549 Results 24 hrs Laboratory Tests Test 05/18/17 12:05 05/18/17 17:30 05/18/17 21:42 05/19/17 05:49 Bedside Glucose 119 105 119 White Blood Count 7.6 Red Blood Count 2.88 L Hemoglobin 8.6 L Hematocrit 27.2 L Mean Corpuscular Volume 94.4 Mean Corpuscular Hemoglobin 29.9 Mean Corpuscular Hemoglobin Concent 31.6 L Red Cell Distribution Width 14.2 Platelet Count 511 H Mean Platelet Volume 7.9 Neutrophils % 57.9 Lymphocytes % 28.1 Monocytes % 10.4 Eosinophils % 2.6 Basophils % 0.5 Nucleated Red Blood Cells % 0.0 Neutrophils # 4.4 Lymphocytes # 2.1 Monocytes # 0.8 Eosinophils # 0.2 Basophils # 0.0 Nucleated Red Blood Cells # 0.0 Sodium Level 138 Potassium Level 4.2 Chloride Level 99 Carbon Dioxide Level 33 H Anion Gap 10 Blood Urea Nitrogen 14 Creatinine 0.46 Glucose Level 102 Calcium Level 9.6 Test 05/19/17 08:10 Bedside Glucose 104 Medications Medications Current Medications Miscellaneous Information 1 ea NOTE XX ; Start 04/13/17 at 21:30 Glucose (Glutose) 15 gm Q15M PRN PO DECREASED GLUCOSE; Start 04/13/17 at 21:30 Glucose (Glutose) 22.5 gm Q15M PRN PO DECREASED GLUCOSE; Start 04/13/17 at 21: 30 Dextrose (D50w Syringe) 25 ml Q15M PRN IV DECREASED GLUCOSE; Start 04/13/17 at 21:30 Dextrose (D50w Syringe) 50 ml Q15M PRN IV DECREASED GLUCOSE; Start 04/13/17 at 21:30 Glucagon (Glucagen) 1 mg Q15M PRN IM DECREASED GLUCOSE; Start 04/13/17 at 21:30 Glucose (Glutose) 15 gm Q15M PRN BUCCAL DECREASED GLUCOSE; Start 04/13/17 at 21 :30 Ondansetron HCl (Zofran Inj) 4 mg Q6 PRN IV NAUSEA AND/OR VOMITING Last administered on 04/26/17 20:25; Admin Dose 4 MG; Start 04/13/17 at 21:30 Guaifenesin/ Dextromethorphan (Robitussin Dm Liquid Cup) 5 ml Q4H PRN PO COUGH Last administered on 04/19/17 05:09; Admin Dose 5 ML; Start 04/15/17 at 16:30 Pantoprazole (Protonix Tab) 40 mg DAILY@06 PO Last administered on 05/19/17 06:20; Admin Dose 40 MG; Start 04/17/17 at 06:00 Acetaminophen (Tylenol Tab) 500 mg Q6H PRN PO PAIN AND OR ELEVATED TEMP Last administered on 05/06/17 03:25; Admin Dose 500 MG; Start 04/17/17 at 03:00 Magnesium Hydroxide 30 ml 30 ml DAILY PRN PO CONSTIPATION Last administered on 04/28/17 18:33; Admin Dose 30 ML; Start 04/17/17 at 11:30 Ampicillin Sodium/ Sulbactam Sodium (Unasyn 1.5gm/NS (Pmx)) 50 ml @ 100 mls/hr Q6 IVPB Last administered on 05/19/17 06:21; Admin Dose 100 MLS/HR; Start at 18:00 Fentanyl (Duragesic 12 Mcg/Hr Patch) 1 patch Q72H TRANSDERM Last administered on 05/19/17 06:33; Admin Dose 1 PATCH; Start 04/22/17 at 05:30 Morphine Sulfate (morphine) 1 mg Q4H PRN IV SEVERE PAIN LEVEL 7-10 Last administered on 05/16/17 01:08; Admin Dose 1 MG; Start 04/22/17 at 17:30 Metoclopramide HCl (Reglan) 10 mg Q6H PRN IV NAUSEA Last administered on 20:18; Admin Dose 10 MG; Start 04/22/17 at 21:00 Enoxaparin Sodium (Lovenox) 30 mg DAILY SC Last administered on 05/19/17 08: 18; Admin Dose 30 MG; Start 04/23/17 at 20:30 Acetaminophen (Tylenol Supp) 650 mg Q6H PRN [place] FEVER GREATER THAN 100.6; Start 04/23/17 at 20:30 Acetaminophen (Tylenol Tab) 650 mg Q6H PRN PO PAIN AND OR ELEVATED TEMP Last administered on 05/18/17 05:57; Admin Dose 650 MG; Start 04/23/17 at 20:30 Lactobacillus Acidophilus/ Rhamnosus (Culturelle) 1 cap BID PO Last administered on 05/19/17 08:11; Admin Dose 1 CAP; Start 04/24/17 at 11:30 Diagnostic Test (Pha) (Accu-Chek) 1 ea 02 XX ; Start 04/26/17 at 02:00 Docusate Sodium (Colace) 100 mg BID PO Last administered on 05/19/17 08:11; Admin Dose 100 MG; Start 04/30/17 at 21:00 Potassium Chloride (Klor-Con 20) 20 meq BID PO Last administered on 05/19/17 08:11; Admin Dose 20 MEQ; Start 05/04/17 at 21:00 Nalbuphine HCl (Nubain) 10 mg Q4H PRN IV PRURITUS; Start 05/07/17 at 13:30 Ondansetron HCl (Zofran Inj) 4 mg Q6H PRN IV NAUSEA AND/OR VOMITING; Start 05/07/17 at 13:30 Metoprolol Tartrate (Lopressor) 25 mg BID PO Last administered on 05/18/17 21 :40; Admin Dose 25 MG; Start 05/08/17 at 14:00 Furosemide (Lasix) 20 mg DAILY PO Last administered on 05/19/17 08:26; Admin Dose 20 MG; Start 05/19/17 at 09:00 JAIME BULLARD MD May 19, 2017 09:03
--- NOTE | 2017-05-19 09:26 | CONS ---
Date/Time of Note Date/Time of Note DATE: 05/19/17 TIME: 09:24 Assessment/Plan Assessment/Plan Chief Complaint/Hosp Course Problems: Additional Assessment/Plan 1. Bilateral pleural effusions right more than left, status post right thoracentesis 04/20. S/p right chest tube insertion on 04/[address] Jackson, vascular surgery. S/p right thoracentesis 04/26. - s/p Right VATS decortication 05/07/2017 2. Acute hyponatremia 2/2 Hypovolemic hyponatremia - Resolved 2. sepsis due to liver abscess 3. Hepatic abscess oN CT scan s/p CT guided drainage on 04/15/17 and 04/23/17 4. Acute transaminitis 5. h/o Colon CA s/p previous Surgery 6. Hypokalemia 7. acute resp failiue due to # 1 8. hypomagnesemia Plan : S/p Right VATS decortication, chest tube discontinued , CXR showed complete opacificatin of rigth lung - pt stable respiration, starution ok with 2 L NC , pulmonary has been following lasix 20mg pO BID with KCL replacement , Cr normal, HCo3 33- will monitor it. IV abx as per ID, renally dose all abx abdominal drain in place, plan as per G surgery will follow up Consultation Date/Type/Reason Admit Date/Time Apr 13, 2017 at 19:51 Initial Consult Date 04/13/17 Type of Consultation: NEPHROLOGY Referring Provider: DARREL BURT MD 24 HR Interval Summary Free Text/Dictation Cr normal, HCo3 33, other electrolytes stable Exam/Review of Systems Vital Signs Vitals Vital Signs Date Time Temp Pulse Resp B/P Pulse Ox O2 Delivery O2 Flow Rate FiO2 05/19/17 08:25 76 05/19/17 07:52 98.0 18 102/57 100 05/19/17 03:04 2.0 05/19/17 00:00 Nasal Cannula 05/18/17 02:11 27 Intake and Output 05/18/17 05/18/17 05/19/17 15:00 23:00 07:00 Intake Total 50 ml 1650 ml 220 ml Output Total 0 ml 1400 ml Balance 50 ml 1650 ml -1180 ml Exam Constitutional: alert, frail, oriented Respiratory: diminished breath sounds,, RML and RLL rales Cardiovascular: nl pulses, regular rate and rhythm Musculoskeletal: nl extremities to inspection Extremities: No edema 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: GRIP BOSS II-XII intact, 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 ABD: soft, NT, + abdominal drain in place Results Result Diagram: 05/19/17 0549 05/19/17 0549 Results 24 hrs Laboratory Tests Test 05/18/17 12:05 05/18/17 17:30 05/18/17 21:42 05/19/17 05:49 Bedside Glucose 119 105 119 White Blood Count 7.6 Red Blood Count 2.88 L Hemoglobin 8.6 L Hematocrit 27.2 L Mean Corpuscular Volume 94.4 Mean Corpuscular Hemoglobin 29.9 Mean Corpuscular Hemoglobin Concent 31.6 L Red Cell Distribution Width 14.2 Platelet Count 511 H Mean Platelet Volume 7.9 Neutrophils % 57.9 Lymphocytes % 28.1 Monocytes % 10.4 Eosinophils % 2.6 Basophils % 0.5 Nucleated Red Blood Cells % 0.0 Neutrophils # 4.4 Lymphocytes # 2.1 Monocytes # 0.8 Eosinophils # 0.2 Basophils # 0.0 Nucleated Red Blood Cells # 0.0 Sodium Level 138 Potassium Level 4.2 Chloride Level 99 Carbon Dioxide Level 33 H Anion Gap 10 Blood Urea Nitrogen 14 Creatinine 0.46 Glucose Level 102 Calcium Level 9.6 Test 05/19/17 08:10 Bedside Glucose 104 Medications Medications Current Medications Miscellaneous Information 1 ea NOTE XX ; Start 04/13/17 at 21:30 Glucose (Glutose) 15 gm Q15M PRN PO DECREASED GLUCOSE; Start 04/13/17 at 21:30 Glucose (Glutose) 22.5 gm Q15M PRN PO DECREASED GLUCOSE; Start 04/13/17 at 21: 30 Dextrose (D50w Syringe) 25 ml Q15M PRN IV DECREASED GLUCOSE; Start 04/13/17 at 21:30 Dextrose (D50w Syringe) 50 ml Q15M PRN IV DECREASED GLUCOSE; Start 04/13/17 at 21:30 Glucagon (Glucagen) 1 mg Q15M PRN IM DECREASED GLUCOSE; Start 04/13/17 at 21:30 Glucose (Glutose) 15 gm Q15M PRN BUCCAL DECREASED GLUCOSE; Start 04/13/17 at 21 :30 Ondansetron HCl (Zofran Inj) 4 mg Q6 PRN IV NAUSEA AND/OR VOMITING Last administered on 04/26/17 20:25; Admin Dose 4 MG; Start 04/13/17 at 21:30 Guaifenesin/ Dextromethorphan (Robitussin Dm Liquid Cup) 5 ml Q4H PRN PO COUGH Last administered on 04/19/17 05:09; Admin Dose 5 ML; Start 04/15/17 at 16:30 Pantoprazole (Protonix Tab) 40 mg DAILY@06 PO Last administered on 05/19/17 06:20; Admin Dose 40 MG; Start 04/17/17 at 06:00 Acetaminophen (Tylenol Tab) 500 mg Q6H PRN PO PAIN AND OR ELEVATED TEMP Last administered on 05/06/17 03:25; Admin Dose 500 MG; Start 04/17/17 at 03:00 Magnesium Hydroxide 30 ml 30 ml DAILY PRN PO CONSTIPATION Last administered on 04/28/17 18:33; Admin Dose 30 ML; Start 04/17/17 at 11:30 Ampicillin Sodium/ Sulbactam Sodium (Unasyn 1.5gm/NS (Pmx)) 50 ml @ 100 mls/hr Q6 IVPB Last administered on 05/19/17 06:21; Admin Dose 100 MLS/HR; Start at 18:00 Fentanyl (Duragesic 12 Mcg/Hr Patch) 1 patch Q72H TRANSDERM Last administered on 05/19/17 06:33; Admin Dose 1 PATCH; Start 04/22/17 at 05:30 Morphine Sulfate (morphine) 1 mg Q4H PRN IV SEVERE PAIN LEVEL 7-10 Last administered on 05/16/17 01:08; Admin Dose 1 MG; Start 04/22/17 at 17:30 Metoclopramide HCl (Reglan) 10 mg Q6H PRN IV NAUSEA Last administered on 20:18; Admin Dose 10 MG; Start 04/22/17 at 21:00 Enoxaparin Sodium (Lovenox) 30 mg DAILY SC Last administered on 05/19/17 08: 18; Admin Dose 30 MG; Start 04/23/17 at 20:30 Acetaminophen (Tylenol Supp) 650 mg Q6H PRN [place] FEVER GREATER THAN 100.6; Start 04/23/17 at 20:30 Acetaminophen (Tylenol Tab) 650 mg Q6H PRN PO PAIN AND OR ELEVATED TEMP Last administered on 05/18/17 05:57; Admin Dose 650 MG; Start 04/23/17 at 20:30 Lactobacillus Acidophilus/ Rhamnosus (Culturelle) 1 cap BID PO Last administered on 05/19/17 08:11; Admin Dose 1 CAP; Start 04/24/17 at 11:30 Diagnostic Test (Pha) (Accu-Chek) 1 ea 02 XX ; Start 04/26/17 at 02:00 Docusate Sodium (Colace) 100 mg BID PO Last administered on 05/19/17 08:11; Admin Dose 100 MG; Start 04/30/17 at 21:00 Potassium Chloride (Klor-Con 20) 20 meq BID PO Last administered on 05/19/17 08:11; Admin Dose 20 MEQ; Start 05/04/17 at 21:00 Nalbuphine HCl (Nubain) 10 mg Q4H PRN IV PRURITUS; Start 05/07/17 at 13:30 Ondansetron HCl (Zofran Inj) 4 mg Q6H PRN IV NAUSEA AND/OR VOMITING; Start 05/07/17 at 13:30 Metoprolol Tartrate (Lopressor) 25 mg BID PO Last administered on 05/18/17 21 :40; Admin Dose 25 MG; Start 05/08/17 at 14:00 Furosemide (Lasix) 20 mg DAILY PO Last administered on 05/19/17 08:26; Admin Dose 20 MG; Start 05/19/17 at 09:00 NGOC GARZA MD May 19, 2017 09:26
--- NOTE | 2017-05-19 11:10 | RADRPT ---
PROCEDURE: XR Chest. CLINICAL INDICATION: Shortness of breath TECHNIQUE: Single portable view of the chest was obtained COMPARISON: May 16, 2017 FINDINGS: The trachea is midline. The cardiac silhouette and pulmonary vascularity are within normal limits. T here is a right upper opacification and right lower lobe atelectasis and small right pleural effusio n. Left lung is clear. IMPRESSION: 1. Right upper lobe density, improved since prior examination. There is unchanged right lower lobe a telectasis and small right pleural effusion. There is underlying right-sided volume loss. RPTAT: AARR Physician Zafar Date Time Electronically viewed and signed by Marv Monsalve Physician on 05/19/2017 11:09 JL/
--- NOTE | 2017-05-19 12:25 | CONS ---
Date/Time of Note Date/Time of Note DATE: 05/19/17 TIME: 12:23 Assessment/Plan Assessment/Plan Chief Complaint/Hosp Course - severe sepsis due to pyogenic liver abscess, loculated pleural effusion s/p R thoracotomy, thoracoscopy, total pulmonary decortication on 05/07/2017. Path showed fibrin, necrotic tissue and abscess, no evidence of malignancy. - multiloculated pyogenic liver abscess s/p CT guided drainage catheter placement 04/15/2017, 04/23/2017, s/p repeat drainage 04/27/2017; cultures from gamma hemolytic strep, cultures from 04/23/2017 alpha hemolytic strep. F/ u CT on 05/16/2017 showed persistent multiloculated fluid collection - loculated pleural effusion likely secondary to hepatic process/Hepatic hydrothorax, R>L, s/p R thoracentesis on 04/20/2017, s/p chest tube placement on 04/22/2017 - intermittent diarrhea - normocytic anemia requiring blood transfusion - coagulopathy, improved - Transaminitis, improved - Hyponatremia - CoNS in urine culture with trivial pyuria, likely contaminant - Hx of rectal CA s/p Low anterior resection 08/29/2016 - Severe protein calorie malnutrition - allergy to vancomycin - probable neuropathic pain of R chest wall post surgery recommendations: - continue amp/sulbactam (04/18/2017-); s/p linezolid and pip/tazo (04/13-2016). monitor at least weekly CBC and BMP while Pt's on long-term antibiotic - we recommend long-term (6 weeks at least) antibiotic administration; repeat CT prior to cessation of her antibiotic management d/w Pt. discussed CT finding with radiologist, Dr. Rosario Problems: Consultation Date/Type/Reason Admit Date/Time Apr 13, 2017 at 19:51 Initial Consult Date 04/21/17 Type of Consultation: ID Referring Provider: DARREL BURT MD 24 HR Interval Summary Constitutional: no complaints Detailed Summary Eyes: no complaints ENT: no complaints Respiratory: no complaints Cardiovascular: no complaints Gastrointestinal: no complaints, other (had clear aspirate into the external draiange catheter last night) Genitourinary: no complaints Musculoskeletal: no complaints Skin: no complaints Neurologic: no complaints Exam/Review of Systems Vital Signs Vitals Vital Signs Date Time Temp Pulse Resp B/P Pulse Ox O2 Delivery O2 Flow Rate FiO2 05/19/17 11:28 98.2 82 16 98/56 98 05/19/17 08:00 Nasal Cannula 2.0 05/18/17 02:11 27 Intake and Output 05/18/17 05/18/17 05/19/17 15:00 23:00 07:00 Intake Total 50 ml 1650 ml 220 ml Output Total 0 ml 1400 ml Balance 50 ml 1650 ml -1180 ml Exam Constitutional: alert, oriented, well developed Psych: nl mood/affect, no complaints Head: atraumatic, normocephalic Eyes: nl conjunctiva, nl lids ENMT: nl external ears & nose, nl nasal mucosa & septum Neck: supple Respiratory: diminished breath sounds Cardiovascular: nl pulses, regular rate and rhythm Gastrointestinal: non-tender, other (external drainage catheter in place), soft Musculoskeletal: nl extremities to inspection Extremities: No edema 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: RF TECHNICIAN II-XII intact, 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, nl speech, nl strength Skin: nl turgor Results Result Diagram: 05/19/17 0549 05/19/17 0549 Results 24 hrs Laboratory Tests Test 05/18/17 17:30 05/18/17 21:42 05/19/17 05:49 05/19/17 08:10 Bedside Glucose 105 119 104 White Blood Count 7.6 Red Blood Count 2.88 L Hemoglobin 8.6 L Hematocrit 27.2 L Mean Corpuscular Volume 94.4 Mean Corpuscular Hemoglobin 29.9 Mean Corpuscular Hemoglobin Concent 31.6 L Red Cell Distribution Width 14.2 Platelet Count 511 H Mean Platelet Volume 7.9 Neutrophils % 57.9 Lymphocytes % 28.1 Monocytes % 10.4 Eosinophils % 2.6 Basophils % 0.5 Nucleated Red Blood Cells % 0.0 Neutrophils # 4.4 Lymphocytes # 2.1 Monocytes # 0.8 Eosinophils # 0.2 Basophils # 0.0 Nucleated Red Blood Cells # 0.0 Sodium Level 138 Potassium Level 4.2 Chloride Level 99 Carbon Dioxide Level 33 H Anion Gap 10 Blood Urea Nitrogen 14 Creatinine 0.46 Glucose Level 102 Calcium Level 9.6 Test 05/19/17 11:35 Bedside Glucose 131 Medications Medications Current Medications Miscellaneous Information 1 ea NOTE XX ; Start 04/13/17 at 21:30 Glucose (Glutose) 15 gm Q15M PRN PO DECREASED GLUCOSE; Start 04/13/17 at 21:30 Glucose (Glutose) 22.5 gm Q15M PRN PO DECREASED GLUCOSE; Start 04/13/17 at 21: 30 Dextrose (D50w Syringe) 25 ml Q15M PRN IV DECREASED GLUCOSE; Start 04/13/17 at 21:30 Dextrose (D50w Syringe) 50 ml Q15M PRN IV DECREASED GLUCOSE; Start 04/13/17 at 21:30 Glucagon (Glucagen) 1 mg Q15M PRN IM DECREASED GLUCOSE; Start 04/13/17 at 21:30 Glucose (Glutose) 15 gm Q15M PRN BUCCAL DECREASED GLUCOSE; Start 04/13/17 at 21 :30 Ondansetron HCl (Zofran Inj) 4 mg Q6 PRN IV NAUSEA AND/OR VOMITING Last administered on 04/26/17 20:25; Admin Dose 4 MG; Start 04/13/17 at 21:30 Guaifenesin/ Dextromethorphan (Robitussin Dm Liquid Cup) 5 ml Q4H PRN PO COUGH Last administered on 04/19/17 05:09; Admin Dose 5 ML; Start 04/15/17 at 16:30 Pantoprazole (Protonix Tab) 40 mg DAILY@06 PO Last administered on 05/19/17 06:20; Admin Dose 40 MG; Start 04/17/17 at 06:00 Acetaminophen (Tylenol Tab) 500 mg Q6H PRN PO PAIN AND OR ELEVATED TEMP Last administered on 05/06/17 03:25; Admin Dose 500 MG; Start 04/17/17 at 03:00 Magnesium Hydroxide 30 ml 30 ml DAILY PRN PO CONSTIPATION Last administered on 04/28/17 18:33; Admin Dose 30 ML; Start 04/17/17 at 11:30 Ampicillin Sodium/ Sulbactam Sodium (Unasyn 1.5gm/NS (Pmx)) 50 ml @ 100 mls/hr Q6 IVPB Last administered on 05/19/17 11:55; Admin Dose 100 MLS/HR; Start at 18:00 Fentanyl (Duragesic 12 Mcg/Hr Patch) 1 patch Q72H TRANSDERM Last administered on 05/19/17 06:33; Admin Dose 1 PATCH; Start 04/22/17 at 05:30 Morphine Sulfate (morphine) 1 mg Q4H PRN IV SEVERE PAIN LEVEL 7-10 Last administered on 05/16/17 01:08; Admin Dose 1 MG; Start 04/22/17 at 17:30 Metoclopramide HCl (Reglan) 10 mg Q6H PRN IV NAUSEA Last administered on 20:18; Admin Dose 10 MG; Start 04/22/17 at 21:00 Enoxaparin Sodium (Lovenox) 30 mg DAILY SC Last administered on 05/19/17 08: 18; Admin Dose 30 MG; Start 04/23/17 at 20:30 Acetaminophen (Tylenol Supp) 650 mg Q6H PRN [place] FEVER GREATER THAN 100.6; Start 04/23/17 at 20:30 Acetaminophen (Tylenol Tab) 650 mg Q6H PRN PO PAIN AND OR ELEVATED TEMP Last administered on 05/18/17 05:57; Admin Dose 650 MG; Start 04/23/17 at 20:30 Lactobacillus Acidophilus/ Rhamnosus (Culturelle) 1 cap BID PO Last administered on 05/19/17 08:11; Admin Dose 1 CAP; Start 04/24/17 at 11:30 Diagnostic Test (Pha) (Accu-Chek) 1 ea 02 XX ; Start 04/26/17 at 02:00 Docusate Sodium (Colace) 100 mg BID PO Last administered on 05/19/17 08:11; Admin Dose 100 MG; Start 04/30/17 at 21:00 Potassium Chloride (Klor-Con 20) 20 meq BID PO Last administered on 05/19/17 08:11; Admin Dose 20 MEQ; Start 05/04/17 at 21:00 Nalbuphine HCl (Nubain) 10 mg Q4H PRN IV PRURITUS; Start 05/07/17 at 13:30 Ondansetron HCl (Zofran Inj) 4 mg Q6H PRN IV NAUSEA AND/OR VOMITING; Start 05/07/17 at 13:30 Metoprolol Tartrate (Lopressor) 25 mg BID PO Last administered on 05/18/17 21 :40; Admin Dose 25 MG; Start 05/08/17 at 14:00 Furosemide (Lasix) 20 mg DAILY PO Last administered on 05/19/17 08:26; Admin Dose 20 MG; Start 05/19/17 at 09:00 AARON ANSARI M.D. May 19, 2017 12:25
--- NOTE | 2017-05-19 12:46 | CONS ---
Date/Time of Note Date/Time of Note DATE: 05/19/17 TIME: 12:43 Assessment/Plan Assessment/Plan Additional Assessment/Plan Chest x-ray was reviewed from today which is showing significant improvement in right upper lobe atelectasis. Assessment and recommendations; 1. Patient admitted with hepatic abscess then developed severe pneumonia involving right lung status post VATS procedure with marked radiological improvement now. There is also significant improvement in right upper lobe atelectasis. 2. Status post chest tube removal. Continue current treatment. No further workup recommended or treatment for right upper lobe atelectasis which is already improving. Patient however needs to continue with incentive spirometry. Consultation Date/Type/Reason Admit Date/Time Apr 13, 2017 at 19:51 Initial Consult Date 04/15/17 Type of Consultation: Pulmonary Referring Provider: DARREL BURT MD 24 HR Interval Summary Free Text/Dictation Patient's condition is stable. Denies any chest pain, shortness of breath, cough. Any abdominal pain. General exam; elderly woman, awake and alert. Currently in no distress. Exam/Review of Systems Vital Signs Vitals Vital Signs Date Time Temp Pulse Resp B/P Pulse Ox O2 Delivery O2 Flow Rate FiO2 05/19/17 12:41 84 05/19/17 11:28 98.2 16 98/56 98 05/19/17 08:00 Nasal Cannula 2.0 05/18/17 02:11 27 Intake and Output 05/18/17 05/18/17 05/19/17 15:00 23:00 07:00 Intake Total 50 ml 1650 ml 220 ml Output Total 0 ml 1400 ml Balance 50 ml 1650 ml -1180 ml Exam HEENT exam; supple neck, no JVD. No lymphadenopathy. Midline trachea. No thyromegaly. Patient has fair dentition. Chest exam; clear to auscultation. S1-S2 audible, no murmurs. Regular rhythm. Abdomen exam; soft, nontender. There is an epigastric drain in place. Right upper quadrant scar with betty applied. Extremity exam; no edema. MOTOR VEHICLE REPRESENTATIVE exam; no focal deficit. Results Result Diagram: 05/19/17 0549 05/19/17 0549 Results 24 hrs Laboratory Tests Test 05/18/17 17:30 05/18/17 21:42 05/19/17 05:49 05/19/17 08:10 Bedside Glucose 105 119 104 White Blood Count 7.6 Red Blood Count 2.88 L Hemoglobin 8.6 L Hematocrit 27.2 L Mean Corpuscular Volume 94.4 Mean Corpuscular Hemoglobin 29.9 Mean Corpuscular Hemoglobin Concent 31.6 L Red Cell Distribution Width 14.2 Platelet Count 511 H Mean Platelet Volume 7.9 Neutrophils % 57.9 Lymphocytes % 28.1 Monocytes % 10.4 Eosinophils % 2.6 Basophils % 0.5 Nucleated Red Blood Cells % 0.0 Neutrophils # 4.4 Lymphocytes # 2.1 Monocytes # 0.8 Eosinophils # 0.2 Basophils # 0.0 Nucleated Red Blood Cells # 0.0 Sodium Level 138 Potassium Level 4.2 Chloride Level 99 Carbon Dioxide Level 33 H Anion Gap 10 Blood Urea Nitrogen 14 Creatinine 0.46 Glucose Level 102 Calcium Level 9.6 Test 05/19/17 11:35 Bedside Glucose 131 Medications Medications Current Medications Miscellaneous Information 1 ea NOTE XX ; Start 04/13/17 at 21:30 Glucose (Glutose) 15 gm Q15M PRN PO DECREASED GLUCOSE; Start 04/13/17 at 21:30 Glucose (Glutose) 22.5 gm Q15M PRN PO DECREASED GLUCOSE; Start 04/13/17 at 21: 30 Dextrose (D50w Syringe) 25 ml Q15M PRN IV DECREASED GLUCOSE; Start 04/13/17 at 21:30 Dextrose (D50w Syringe) 50 ml Q15M PRN IV DECREASED GLUCOSE; Start 04/13/17 at 21:30 Glucagon (Glucagen) 1 mg Q15M PRN IM DECREASED GLUCOSE; Start 04/13/17 at 21:30 Glucose (Glutose) 15 gm Q15M PRN BUCCAL DECREASED GLUCOSE; Start 04/13/17 at 21 :30 Ondansetron HCl (Zofran Inj) 4 mg Q6 PRN IV NAUSEA AND/OR VOMITING Last administered on 04/26/17 20:25; Admin Dose 4 MG; Start 04/13/17 at 21:30 Guaifenesin/ Dextromethorphan (Robitussin Dm Liquid Cup) 5 ml Q4H PRN PO COUGH Last administered on 04/19/17 05:09; Admin Dose 5 ML; Start 04/15/17 at 16:30 Pantoprazole (Protonix Tab) 40 mg DAILY@06 PO Last administered on 05/19/17 06:20; Admin Dose 40 MG; Start 04/17/17 at 06:00 Acetaminophen (Tylenol Tab) 500 mg Q6H PRN PO PAIN AND OR ELEVATED TEMP Last administered on 05/06/17 03:25; Admin Dose 500 MG; Start 04/17/17 at 03:00 Magnesium Hydroxide 30 ml 30 ml DAILY PRN PO CONSTIPATION Last administered on 04/28/17 18:33; Admin Dose 30 ML; Start 04/17/17 at 11:30 Ampicillin Sodium/ Sulbactam Sodium (Unasyn 1.5gm/NS (Pmx)) 50 ml @ 100 mls/hr Q6 IVPB Last administered on 05/19/17 11:55; Admin Dose 100 MLS/HR; Start at 18:00 Fentanyl (Duragesic 12 Mcg/Hr Patch) 1 patch Q72H TRANSDERM Last administered on 05/19/17 06:33; Admin Dose 1 PATCH; Start 04/22/17 at 05:30 Morphine Sulfate (morphine) 1 mg Q4H PRN IV SEVERE PAIN LEVEL 7-10 Last administered on 05/16/17 01:08; Admin Dose 1 MG; Start 04/22/17 at 17:30 Metoclopramide HCl (Reglan) 10 mg Q6H PRN IV NAUSEA Last administered on 20:18; Admin Dose 10 MG; Start 04/22/17 at 21:00 Enoxaparin Sodium (Lovenox) 30 mg DAILY SC Last administered on 05/19/17 08: 18; Admin Dose 30 MG; Start 04/23/17 at 20:30 Acetaminophen (Tylenol Supp) 650 mg Q6H PRN [place] FEVER GREATER THAN 100.6; Start 04/23/17 at 20:30 Acetaminophen (Tylenol Tab) 650 mg Q6H PRN PO PAIN AND OR ELEVATED TEMP Last administered on 05/18/17 05:57; Admin Dose 650 MG; Start 04/23/17 at 20:30 Lactobacillus Acidophilus/ Rhamnosus (Culturelle) 1 cap BID PO Last administered on 05/19/17 08:11; Admin Dose 1 CAP; Start 04/24/17 at 11:30 Diagnostic Test (Pha) (Accu-Chek) 1 ea 02 XX ; Start 04/26/17 at 02:00 Docusate Sodium (Colace) 100 mg BID PO Last administered on 05/19/17 08:11; Admin Dose 100 MG; Start 04/30/17 at 21:00 Potassium Chloride (Klor-Con 20) 20 meq BID PO Last administered on 05/19/17 08:11; Admin Dose 20 MEQ; Start 05/04/17 at 21:00 Nalbuphine HCl (Nubain) 10 mg Q4H PRN IV PRURITUS; Start 05/07/17 at 13:30 Ondansetron HCl (Zofran Inj) 4 mg Q6H PRN IV NAUSEA AND/OR VOMITING; Start 05/07/17 at 13:30 Metoprolol Tartrate (Lopressor) 25 mg BID PO Last administered on 05/18/17 21 :40; Admin Dose 25 MG; Start 05/08/17 at 14:00 Furosemide (Lasix) 20 mg DAILY PO Last administered on 05/19/17 08:26; Admin Dose 20 MG; Start 05/19/17 at 09:00 LINDA GARCIA May 19, 2017 12:46
--- NOTE | 2017-05-19 15:45 | PN ---
DATE: 05/19/2017 PROGRESS NOTE FOLLOWUP SUBJECTIVE: No complaints, tolerating diet, having bowel movements, no nausea, no vomiting. OBJECTIVE: VITAL SIGNS: Stable and temperature 98.2, heart rate 86 regular, respirations 16, blood pressure 98 /66, saturation 98% on 2 liters nasal cannula. LABORATORY DATA: Today, WBC 7600 with 57% neutrophils, which is normal differential, hemoglobin 8.6 , hematocrit 27.2. Chemistry: Sodium, potassium normal. BUN 14, creatinine 0.46 normal, calcium 9 .6 normal. The pigtail drain in the past 24 hours has drained 0 mL and now in the tube there is abo ut 5 mL of serous fluid. This has been actually very low in the past several days. Minimal drainag e. The chest x-ray today showed: Right upper lobe density improved since prior examination, which was 4 days ago. It is unchanged with right lower lobe atelectasis and small right pleural effusion. There is underlying right-sided volume loss. Pulmonology is following the patient. A CT scan fro m 05/17/2017 was reviewed today with Dr. Yanes, radiologist in the house and he stated that the P CA of the drain probably can be removed if it is not draining anything. On the CT scan, it shows th at it almost closed the cavity with minimal space left with minimal fluid around it. Then there is another area of abscess that he is not sure could be drained percutaneously or not. Therefore, he r ecommended to alternate with followup for 1 more week with antibiotic and then repeated it to see ho w it is resolving and is getting smaller or not. ASSESSMENT AND PLAN: Therefore, we are going to do that actually under sterile conditions, I remove d the pigtail drain which was going into the liver. Dry dressing was applied. We will observe the patient and follow clinical course. Dictated By: JOHN JUSTIN/KT Conf#: [id number] DID#: [id number]
--- NOTE | 2017-05-19 15:58 | PN ---
Date/Time of Note Date/Time of Note DATE: 05/19/17 TIME: 15:57 Assessment/Plan VTE Prophylaxis VTE Prophylaxis Intervention: SCD's Lines/Catheters IV C[facility]ter Type (from [facility] Urinary Cath still in place: No Assessment/Plan Chief Complaint/Hosp Course Patient is comfortable on supplemental oxygen, encouraged to use incentive spirometer, stable for transfer to medical surgical floor Assessment/Plan - Bilateral pleural effusions right more than left, status post right thoracentesis 04/20. S/p right chest tube insertion on 04/[address] Jackson, vascular surgery. S/p right thoracentesis 04/26. S/P Right VATS decortication on 05/07. CT removed 05/12. - Acute respiratory failure secondary to #1, Dr. Damico is following in pulmonology consultation continue oxygen oxygen supplementation - Severe sepsis 2/2 to liver abscess, resolving. Continue antibiotics per ID. is following in infection disease consultation - Liver abscess unchanged per recent CT, s/p CT guided drainage 04/15/2017, s/p CT guided percutaneous drainage of liver abscess 04/23, status post CT-guided liver abscess drainage 04/27 - Normocytic anemia requiring blood transfusion - Hx of rectal CA s/p Low anterior resection 08/29/2016 Further recommendations based on clinical course. Plan of care discussed with Dr. Dior Problems: Exam/Review of Systems Vital Signs Vitals Vital Signs Date Time Temp Pulse Resp B/P Pulse Ox O2 Delivery O2 Flow Rate FiO2 05/19/17 15:27 98.6 80 20 102/61 100 05/19/17 08:00 Nasal Cannula 2.0 05/18/17 02:11 27 Intake and Output 05/18/17 05/18/17 05/19/17 15:00 23:00 07:00 Intake Total 50 ml 1650 ml 220 ml Output Total 0 ml 1400 ml Balance 50 ml 1650 ml -1180 ml Exam Constitutional: alert, oriented Neck: supple Respiratory: normal air movement Cardiovascular: nl pulses Gastrointestinal: non-tender, other (Hepatic drain), soft Extremities: normal pulses Results Result Diagram: 05/19/17 0549 05/19/17 0549 Results 24 hrs Laboratory Tests Test 05/18/17 17:30 05/18/17 21:42 05/19/17 05:49 05/19/17 08:10 Bedside Glucose 105 119 104 White Blood Count 7.6 Red Blood Count 2.88 L Hemoglobin 8.6 L Hematocrit 27.2 L Mean Corpuscular Volume 94.4 Mean Corpuscular Hemoglobin 29.9 Mean Corpuscular Hemoglobin Concent 31.6 L Red Cell Distribution Width 14.2 Platelet Count 511 H Mean Platelet Volume 7.9 Neutrophils % 57.9 Lymphocytes % 28.1 Monocytes % 10.4 Eosinophils % 2.6 Basophils % 0.5 Nucleated Red Blood Cells % 0.0 Neutrophils # 4.4 Lymphocytes # 2.1 Monocytes # 0.8 Eosinophils # 0.2 Basophils # 0.0 Nucleated Red Blood Cells # 0.0 Sodium Level 138 Potassium Level 4.2 Chloride Level 99 Carbon Dioxide Level 33 H Anion Gap 10 Blood Urea Nitrogen 14 Creatinine 0.46 Glucose Level 102 Calcium Level 9.6 Test 05/19/17 11:35 Bedside Glucose 131 Medications Medications Current Medications Miscellaneous Information 1 ea NOTE XX ; Start 04/13/17 at 21:30 Glucose (Glutose) 15 gm Q15M PRN PO DECREASED GLUCOSE; Start 04/13/17 at 21:30 Glucose (Glutose) 22.5 gm Q15M PRN PO DECREASED GLUCOSE; Start 04/13/17 at 21: 30 Dextrose (D50w Syringe) 25 ml Q15M PRN IV DECREASED GLUCOSE; Start 04/13/17 at 21:30 Dextrose (D50w Syringe) 50 ml Q15M PRN IV DECREASED GLUCOSE; Start 04/13/17 at 21:30 Glucagon (Glucagen) 1 mg Q15M PRN IM DECREASED GLUCOSE; Start 04/13/17 at 21:30 Glucose (Glutose) 15 gm Q15M PRN BUCCAL DECREASED GLUCOSE; Start 04/13/17 at 21 :30 Ondansetron HCl (Zofran Inj) 4 mg Q6 PRN IV NAUSEA AND/OR VOMITING Last administered on 04/26/17 20:25; Admin Dose 4 MG; Start 04/13/17 at 21:30 Guaifenesin/ Dextromethorphan (Robitussin Dm Liquid Cup) 5 ml Q4H PRN PO COUGH Last administered on 04/19/17 05:09; Admin Dose 5 ML; Start 04/15/17 at 16:30 Pantoprazole (Protonix Tab) 40 mg DAILY@06 PO Last administered on 05/19/17 06:20; Admin Dose 40 MG; Start 04/17/17 at 06:00 Acetaminophen (Tylenol Tab) 500 mg Q6H PRN PO PAIN AND OR ELEVATED TEMP Last administered on 05/06/17 03:25; Admin Dose 500 MG; Start 04/17/17 at 03:00 Magnesium Hydroxide 30 ml 30 ml DAILY PRN PO CONSTIPATION Last administered on 04/28/17 18:33; Admin Dose 30 ML; Start 04/17/17 at 11:30 Ampicillin Sodium/ Sulbactam Sodium (Unasyn 1.5gm/NS (Pmx)) 50 ml @ 100 mls/hr Q6 IVPB Last administered on 05/19/17 11:55; Admin Dose 100 MLS/HR; Start at 18:00 Fentanyl (Duragesic 12 Mcg/Hr Patch) 1 patch Q72H TRANSDERM Last administered on 05/19/17 06:33; Admin Dose 1 PATCH; Start 04/22/17 at 05:30 Morphine Sulfate (morphine) 1 mg Q4H PRN IV SEVERE PAIN LEVEL 7-10 Last administered on 05/16/17 01:08; Admin Dose 1 MG; Start 04/22/17 at 17:30 Metoclopramide HCl (Reglan) 10 mg Q6H PRN IV NAUSEA Last administered on 20:18; Admin Dose 10 MG; Start 04/22/17 at 21:00 Enoxaparin Sodium (Lovenox) 30 mg DAILY SC Last administered on 05/19/17 08: 18; Admin Dose 30 MG; Start 04/23/17 at 20:30 Acetaminophen (Tylenol Supp) 650 mg Q6H PRN [place] FEVER GREATER THAN 100.6; Start 04/23/17 at 20:30 Acetaminophen (Tylenol Tab) 650 mg Q6H PRN PO PAIN AND OR ELEVATED TEMP Last administered on 05/18/17 05:57; Admin Dose 650 MG; Start 04/23/17 at 20:30 Lactobacillus Acidophilus/ Rhamnosus (Culturelle) 1 cap BID PO Last administered on 05/19/17 08:11; Admin Dose 1 CAP; Start 04/24/17 at 11:30 Diagnostic Test (Pha) (Accu-Chek) 1 ea 02 XX ; Start 04/26/17 at 02:00 Docusate Sodium (Colace) 100 mg BID PO Last administered on 05/19/17 08:11; Admin Dose 100 MG; Start 04/30/17 at 21:00 Potassium Chloride (Klor-Con 20) 20 meq BID PO Last administered on 05/19/17 08:11; Admin Dose 20 MEQ; Start 05/04/17 at 21:00 Nalbuphine HCl (Nubain) 10 mg Q4H PRN IV PRURITUS; Start 05/07/17 at 13:30 Ondansetron HCl (Zofran Inj) 4 mg Q6H PRN IV NAUSEA AND/OR VOMITING; Start 05/07/17 at 13:30 Metoprolol Tartrate (Lopressor) 25 mg BID PO Last administered on 05/18/17 21 :40; Admin Dose 25 MG; Start 05/08/17 at 14:00 Furosemide (Lasix) 20 mg DAILY PO Last administered on 05/19/17 08:26; Admin Dose 20 MG; Start 05/19/17 at 09:00 WINDY EMERY May 19, 2017 15:58
[2017-05-20] MEDS: ACCU-CHEK XX SCH (02:00)
[2017-05-20 05:15] LABS: BASOPHILS % 0.5 % (0.0-2.0); EOSINOPHILS # 0.3 10^3/ul (0.0-0.5); EOSINOPHILS % 3.4 % (0.0-7.0); HEMATOCRIT 27.4 % (37.0-47.0); HEMOGLOBIN 8.7 g/dl (12.0-16.0); LYMPHOCYTES # 2.2 10^3/ul (0.8-2.9); LYMPHOCYTES % 26.6 % (15.0-51.0); MEAN CORPUSCULAR HEMOGLOBIN 30.2 pg (29.0-33.0); MEAN CORPUSCULAR HGB CONC 31.8 g/dl (32.0-37.0); MEAN CORPUSCULAR VOLUME 95.1 fl (82.0-101.0); MEAN PLATELET VOLUME 7.9 fl (7.4-10.4); MONOCYTE # 0.9 10^3/ul (0.3-0.9); MONOCYTES % 10.9 % (0.0-11.0); NEUTROPHIL # 4.9 10^3/ul (1.6-7.5); NEUTROPHILS % 58.1 % (39.0-77.0); PLATELET COUNT 523 10^3/UL (140-415); RED BLOOD COUNT 2.88 10^6/ul (4.20-5.40); RED CELL DISTRIBUTION WIDTH 14.1 % (11.5-14.5); WHITE BLOOD COUNT 8.4 10^3/ul (4.8-10.8)
[2017-05-20] MEDS: AMPICILLIN/SULB 1.5GM/NS (PMX) 50 ML IVPB SCH ×3 (05:16→18:21)
[2017-05-20] MEDS: PANTOPRAZOLE (EC) 40 MG TAB PO SCH (05:17)
[2017-05-20 05:59] LABS: CALCIUM 9.5 mg/dl (8.4-10.2); CREATININE 0.5 mg/dl (0.44-1.00); POTASSIUM 4.5 mmol/L (3.5-5.1)
[2017-05-20] MEDS: Insulin NOVOLOG SS MILD Algorithm (SS with meals and bedtime) SC SCH ×4 (07:20→20:06)
[2017-05-20 07:57] VITALS: BP 98/55; RESP 18
[2017-05-20] MEDS: METOPROLOL 25 MG TAB PO SCH ×3 (09:00→20:08)
[2017-05-20] MEDS: FUROSEMIDE 20 MG TAB PO SCH (09:14)
[2017-05-20] MEDS: DOCUSATE SODIUM 100 MG CAP PO SCH ×2 (09:14→20:06)
[2017-05-20] MEDS: LACTOBACILLUS RHAMNOSUS CAP PO SCH ×2 (09:14→20:06)
[2017-05-20] MEDS: POTASSIUM CHLORIDE (SR) 20 MEQ TAB PO SCH ×2 (09:14→20:06)
[2017-05-20] MEDS: ENOXAPARIN 30 MG/0.3 ML SYG SC SCH (09:15)
--- NOTE | 2017-05-20 10:16 | CONS ---
Date/Time of Note Date/Time of Note DATE: 05/20/17 TIME: 10:06 Assessment/Plan Assessment/Plan Chief Complaint/Hosp Course - severe sepsis due to pyogenic liver abscess, loculated pleural effusion s/p R thoracotomy, thoracoscopy, total pulmonary decortication on 05/07/2017. Path showed fibrin, necrotic tissue and abscess, no evidence of malignancy. - multiloculated pyogenic liver abscess s/p CT guided drainage catheter placement 04/15/2017, 04/23/2017, s/p repeat drainage 04/27/2017; cultures from gamma hemolytic strep, cultures from 04/23/2017 alpha hemolytic strep. F/ u CT on 05/16/2017 showed persistent but smaller multiloculated fluid collection. The drainage catheter was removed on 05/19/2017 - loculated pleural effusion likely secondary to hepatic process/hepatic hydrothorax, R>L, s/p R thoracentesis on 04/20/2017, s/p chest tube placement on 04/22/2017. It was moved. - intermittent diarrhea, resolved - normocytic anemia requiring blood transfusion - coagulopathy, improved - transaminitis, improved - CoNS in urine culture with trivial pyuria, likely contaminant - Hx of rectal CA s/p Low anterior resection 08/29/2016 - Severe protein calorie malnutrition - allergy to vancomycin - probable neuropathic pain of R chest wall post surgery recommendations: - continue amp/sulbactam (04/18/2017-); s/p linezolid and pip/tazo (04/13-2016). monitor at least weekly CBC and BMP while Pt's on long-term antibiotic - we recommend long-term (6 weeks at least, 05/30/2017) antibiotic administration; repeat CT prior to cessation of her antibiotic management d/w Pt Problems: Consultation Date/Type/Reason Admit Date/Time Apr 13, 2017 at 19:51 Initial Consult Date 04/21/17 Type of Consultation: ID Referring Provider: DARREL BURT MD 24 HR Interval Summary Constitutional: no complaints Detailed Summary Eyes: no complaints ENT: no complaints Respiratory: pleuritic pain (intermittent after VATS on R chest wall) Gastrointestinal: no complaints Genitourinary: no complaints Musculoskeletal: no complaints Skin: other (no more irritation from tapes) Neurologic: no complaints Psychological: no complaints Exam/Review of Systems Vital Signs Vitals Vital Signs Date Time Temp Pulse Resp B/P Pulse Ox O2 Delivery O2 Flow Rate FiO2 05/20/17 07:57 98.8 73 18 98/55 97 05/19/17 20:00 Nasal Cannula 2.0 05/18/17 02:11 27 Intake and Output 05/19/17 05/19/17 05/20/17 15:00 23:00 07:00 Intake Total 50 ml 1210 ml 400 ml Output Total 750 ml Balance 50 ml 1210 ml -350 ml Exam Constitutional: alert, oriented, well developed Psych: nl mood/affect, no complaints Head: atraumatic, normocephalic Eyes: nl conjunctiva, nl lids, nl sclera ENMT: nl external ears & nose, nl nasal mucosa & septum Neck: supple Respiratory: diminished breath sounds, other (R chest wound is dressed c/d/i) Cardiovascular: nl pulses, regular rate and rhythm Gastrointestinal: soft Musculoskeletal: nl extremities to inspection Extremities: normal pulses, No edema 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: EVENT PROMOTER II-XII intact, 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, nl speech, nl strength Skin: nl turgor Results Result Diagram: 05/20/17 0436 05/20/17 0436 Results 24 hrs Laboratory Tests Test 05/19/17 11:35 05/19/17 16:59 05/19/17 21:27 05/20/17 04:36 Bedside Glucose 131 99 144 White Blood Count 8.4 Red Blood Count 2.88 L Hemoglobin 8.7 L Hematocrit 27.4 L Mean Corpuscular Volume 95.1 Mean Corpuscular Hemoglobin 30.2 Mean Corpuscular Hemoglobin Concent 31.8 L Red Cell Distribution Width 14.1 Platelet Count 523 H Mean Platelet Volume 7.9 Neutrophils % 58.1 Lymphocytes % 26.6 Monocytes % 10.9 Eosinophils % 3.4 Basophils % 0.5 Nucleated Red Blood Cells % 0.0 Neutrophils # 4.9 Lymphocytes # 2.2 Monocytes # 0.9 Eosinophils # 0.3 Basophils # 0.0 Nucleated Red Blood Cells # 0.0 Sodium Level 137 Potassium Level 4.5 Chloride Level 98 Carbon Dioxide Level 33 H Anion Gap 11 Blood Urea Nitrogen 16 Creatinine 0.50 Glucose Level 107 Calcium Level 9.5 Test 05/20/17 08:22 Bedside Glucose 103 Medications Medications Current Medications Miscellaneous Information 1 ea NOTE XX ; Start 04/13/17 at 21:30 Glucose (Glutose) 15 gm Q15M PRN PO DECREASED GLUCOSE; Start 04/13/17 at 21:30 Glucose (Glutose) 22.5 gm Q15M PRN PO DECREASED GLUCOSE; Start 04/13/17 at 21: 30 Dextrose (D50w Syringe) 25 ml Q15M PRN IV DECREASED GLUCOSE; Start 04/13/17 at 21:30 Dextrose (D50w Syringe) 50 ml Q15M PRN IV DECREASED GLUCOSE; Start 04/13/17 at 21:30 Glucagon (Glucagen) 1 mg Q15M PRN IM DECREASED GLUCOSE; Start 04/13/17 at 21:30 Glucose (Glutose) 15 gm Q15M PRN BUCCAL DECREASED GLUCOSE; Start 04/13/17 at 21 :30 Ondansetron HCl (Zofran Inj) 4 mg Q6 PRN IV NAUSEA AND/OR VOMITING Last administered on 04/26/17 20:25; Admin Dose 4 MG; Start 04/13/17 at 21:30 Guaifenesin/ Dextromethorphan (Robitussin Dm Liquid Cup) 5 ml Q4H PRN PO COUGH Last administered on 04/19/17 05:09; Admin Dose 5 ML; Start 04/15/17 at 16:30 Pantoprazole (Protonix Tab) 40 mg DAILY@06 PO Last administered on 05/20/17 05:17; Admin Dose 40 MG; Start 04/17/17 at 06:00 Acetaminophen (Tylenol Tab) 500 mg Q6H PRN PO PAIN AND OR ELEVATED TEMP Last administered on 05/06/17 03:25; Admin Dose 500 MG; Start 04/17/17 at 03:00 Magnesium Hydroxide 30 ml 30 ml DAILY PRN PO CONSTIPATION Last administered on 04/28/17 18:33; Admin Dose 30 ML; Start 04/17/17 at 11:30 Ampicillin Sodium/ Sulbactam Sodium (Unasyn 1.5gm/NS (Pmx)) 50 ml @ 100 mls/hr Q6 IVPB Last administered on 05/20/17 05:16; Admin Dose 100 MLS/HR; Start at 18:00 Fentanyl (Duragesic 12 Mcg/Hr Patch) 1 patch Q72H TRANSDERM Last administered on 05/19/17 06:33; Admin Dose 1 PATCH; Start 04/22/17 at 05:30 Morphine Sulfate (morphine) 1 mg Q4H PRN IV SEVERE PAIN LEVEL 7-10 Last administered on 05/16/17 01:08; Admin Dose 1 MG; Start 04/22/17 at 17:30 Metoclopramide HCl (Reglan) 10 mg Q6H PRN IV NAUSEA Last administered on 20:18; Admin Dose 10 MG; Start 04/22/17 at 21:00 Enoxaparin Sodium (Lovenox) 30 mg DAILY SC Last administered on 05/20/17 09: 15; Admin Dose 30 MG; Start 04/23/17 at 20:30 Acetaminophen (Tylenol Supp) 650 mg Q6H PRN [place] FEVER GREATER THAN 100.6; Start 04/23/17 at 20:30 Acetaminophen (Tylenol Tab) 650 mg Q6H PRN PO PAIN AND OR ELEVATED TEMP Last administered on 05/18/17 05:57; Admin Dose 650 MG; Start 04/23/17 at 20:30 Lactobacillus Acidophilus/ Rhamnosus (Culturelle) 1 cap BID PO Last administered on 05/20/17 09:14; Admin Dose 1 CAP; Start 04/24/17 at 11:30 Diagnostic Test (Pha) (Accu-Chek) 1 ea 02 XX ; Start 04/26/17 at 02:00 Docusate Sodium (Colace) 100 mg BID PO Last administered on 05/20/17 09:14; Admin Dose 100 MG; Start 04/30/17 at 21:00 Potassium Chloride (Klor-Con 20) 20 meq BID PO Last administered on 05/20/17 09:14; Admin Dose 20 MEQ; Start 05/04/17 at 21:00 Nalbuphine HCl (Nubain) 10 mg Q4H PRN IV PRURITUS; Start 05/07/17 at 13:30 Ondansetron HCl (Zofran Inj) 4 mg Q6H PRN IV NAUSEA AND/OR VOMITING; Start 05/07/17 at 13:30 Metoprolol Tartrate (Lopressor) 25 mg BID PO Last administered on 05/19/17 20 :57; Admin Dose 25 MG; Start 05/08/17 at 14:00 Furosemide (Lasix) 20 mg DAILY PO Last administered on 05/20/17t 09:14; Admin Dose 20 MG; Start 05/19/17 at 09:00 AARON ANSARI M.D. May 20, 2017 10:16
--- NOTE | 2017-05-20 11:44 | CONS ---
Date/Time of Note Date/Time of Note DATE: 05/20/17 TIME: 11:43 Assessment/Plan Assessment/Plan Chief Complaint/Hosp Course Problems: Additional Assessment/Plan 1. Bilateral pleural effusions right more than left, status post right thoracentesis 04/20. S/p right chest tube insertion on 04/[address] Jackson, vascular surgery. S/p right thoracentesis 04/26. - s/p Right VATS decortication 05/07/2017 2. Acute hyponatremia 2/2 Hypovolemic hyponatremia - Resolved 2. sepsis due to liver abscess 3. Hepatic abscess oN CT scan s/p CT guided drainage on 04/15/17 and 04/23/17 4. Acute transaminitis 5. h/o Colon CA s/p previous Surgery 6. Hypokalemia 7. acute resp failiue due to # 1 8. hypomagnesemia Plan : S/p Right VATS decortication, chest tube discontinued , CXR showed complete opacificatin of rigth lung - pt stable respiration, starution ok with 2 L NC , pulmonary has been following lasix 20mg pO BID with KCL replacement , Cr normal, HCo3 33- will monitor it. IV abx as per ID, renally dose all abx abdominal drain has been removed by G surg, will monitor it will follow up Consultation Date/Type/Reason Admit Date/Time Apr 13, 2017 at 19:51 Initial Consult Date 04/13/17 Type of Consultation: NEPHROLOGY Referring Provider: DARREL BURT MD 24 HR Interval Summary Free Text/Dictation s/p removal of drainage catheter Exam/Review of Systems Vital Signs Vitals Vital Signs Date Time Temp Pulse Resp B/P Pulse Ox O2 Delivery O2 Flow Rate FiO2 05/20/17 07:57 98.8 73 18 98/55 97 05/19/17 20:00 Nasal Cannula 2.0 05/18/17 02:11 27 Intake and Output 05/19/17 05/19/17 05/20/17 15:00 23:00 07:00 Intake Total 50 ml 1210 ml 400 ml Output Total 750 ml Balance 50 ml 1210 ml -350 ml Exam Constitutional: alert, frail, oriented Respiratory: diminished breath sounds,, RML and RLL rales Cardiovascular: nl pulses, regular rate and rhythm Musculoskeletal: nl extremities to inspection Extremities: No edema 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: DECORATING INSPECTOR II-XII intact, 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 ABD: soft, NT, dressing in place at previous drain site Results Result Diagram: 05/20/17 0436 05/20/17 0436 Results 24 hrs Laboratory Tests Test 05/19/17 16:59 05/19/17 21:27 05/20/17 04:36 05/20/17 08:22 Bedside Glucose 99 144 103 White Blood Count 8.4 Red Blood Count 2.88 L Hemoglobin 8.7 L Hematocrit 27.4 L Mean Corpuscular Volume 95.1 Mean Corpuscular Hemoglobin 30.2 Mean Corpuscular Hemoglobin Concent 31.8 L Red Cell Distribution Width 14.1 Platelet Count 523 H Mean Platelet Volume 7.9 Neutrophils % 58.1 Lymphocytes % 26.6 Monocytes % 10.9 Eosinophils % 3.4 Basophils % 0.5 Nucleated Red Blood Cells % 0.0 Neutrophils # 4.9 Lymphocytes # 2.2 Monocytes # 0.9 Eosinophils # 0.3 Basophils # 0.0 Nucleated Red Blood Cells # 0.0 Sodium Level 137 Potassium Level 4.5 Chloride Level 98 Carbon Dioxide Level 33 H Anion Gap 11 Blood Urea Nitrogen 16 Creatinine 0.50 Glucose Level 107 Calcium Level 9.5 Medications Medications Current Medications Miscellaneous Information 1 ea NOTE XX ; Start 04/13/17 at 21:30 Glucose (Glutose) 15 gm Q15M PRN PO DECREASED GLUCOSE; Start 04/13/17 at 21:30 Glucose (Glutose) 22.5 gm Q15M PRN PO DECREASED GLUCOSE; Start 04/13/17 at 21: 30 Dextrose (D50w Syringe) 25 ml Q15M PRN IV DECREASED GLUCOSE; Start 04/13/17 at 21:30 Dextrose (D50w Syringe) 50 ml Q15M PRN IV DECREASED GLUCOSE; Start 04/13/17 at 21:30 Glucagon (Glucagen) 1 mg Q15M PRN IM DECREASED GLUCOSE; Start 04/13/17 at 21:30 Glucose (Glutose) 15 gm Q15M PRN BUCCAL DECREASED GLUCOSE; Start 04/13/17 at 21 :30 Ondansetron HCl (Zofran Inj) 4 mg Q6 PRN IV NAUSEA AND/OR VOMITING Last administered on 04/26/17t 20:25; Admin Dose 4 MG; Start 04/13/17 at 21:30 Guaifenesin/ Dextromethorphan (Robitussin Dm Liquid Cup) 5 ml Q4H PRN PO COUGH Last administered on 04/19/17 05:09; Admin Dose 5 ML; Start 04/15/17 at 16:30 Pantoprazole (Protonix Tab) 40 mg DAILY@06 PO Last administered on 05/20/17 05:17; Admin Dose 40 MG; Start 04/17/17 at 06:00 Acetaminophen (Tylenol Tab) 500 mg Q6H PRN PO PAIN AND OR ELEVATED TEMP Last administered on 05/06/17 03:25; Admin Dose 500 MG; Start 04/17/17 at 03:00 Magnesium Hydroxide 30 ml 30 ml DAILY PRN PO CONSTIPATION Last administered on 04/28/17 18:33; Admin Dose 30 ML; Start 04/17/17 at 11:30 Ampicillin Sodium/ Sulbactam Sodium (Unasyn 1.5gm/NS (Pmx)) 50 ml @ 100 mls/hr Q6 IVPB Last administered on 05/20/17 05:16; Admin Dose 100 MLS/HR; Start at 18:00 Fentanyl (Duragesic 12 Mcg/Hr Patch) 1 patch Q72H TRANSDERM Last administered on 05/19/17 06:33; Admin Dose 1 PATCH; Start 04/22/17 at 05:30 Morphine Sulfate (morphine) 1 mg Q4H PRN IV SEVERE PAIN LEVEL 7-10 Last administered on 05/16/17 01:08; Admin Dose 1 MG; Start 04/22/17 at 17:30 Metoclopramide HCl (Reglan) 10 mg Q6H PRN IV NAUSEA Last administered on 20:18; Admin Dose 10 MG; Start 04/22/17 at 21:00 Enoxaparin Sodium (Lovenox) 30 mg DAILY SC Last administered on 05/20/17 09: 15; Admin Dose 30 MG; Start 04/23/17 at 20:30 Acetaminophen (Tylenol Supp) 650 mg Q6H PRN [place] FEVER GREATER THAN 100.6; Start 04/23/17 at 20:30 Acetaminophen (Tylenol Tab) 650 mg Q6H PRN PO PAIN AND OR ELEVATED TEMP Last administered on 05/18/17 05:57; Admin Dose 650 MG; Start 04/23/17 at 20:30 Lactobacillus Acidophilus/ Rhamnosus (Culturelle) 1 cap BID PO Last administered on 05/20/17 09:14; Admin Dose 1 CAP; Start 04/24/17 at 11:30 Diagnostic Test (Pha) (Accu-Chek) 1 ea 02 XX ; Start 04/26/17 at 02:00 Docusate Sodium (Colace) 100 mg BID PO Last administered on 05/20/17 09:14; Admin Dose 100 MG; Start 04/30/17 at 21:00 Potassium Chloride (Klor-Con 20) 20 meq BID PO Last administered on 05/20/17 09:14; Admin Dose 20 MEQ; Start 05/04/17 at 21:00 Nalbuphine HCl (Nubain) 10 mg Q4H PRN IV PRURITUS; Start 05/07/17 at 13:30 Ondansetron HCl (Zofran Inj) 4 mg Q6H PRN IV NAUSEA AND/OR VOMITING; Start 05/07/17 at 13:30 Metoprolol Tartrate (Lopressor) 25 mg BID PO Last administered on 05/19/17 20 :57; Admin Dose 25 MG; Start 05/08/17 at 14:00 Furosemide (Lasix) 20 mg DAILY PO Last administered on 05/20/17 09:14; Admin Dose 20 MG; Start 05/19/17 at 09:00 NGOC GARZA MD May 20, 2017 11:44
--- NOTE | 2017-05-20 11:56 | CONS ---
Date/Time of Note Date/Time of Note DATE: 05/20/17 TIME: 11:54 Assessment/Plan Assessment/Plan Additional Assessment/Plan Assessment and recommendations; 1. Patient admitted with hepatic abscess then developed severe right-sided pneumonia requiring VATS surgery. Patient also developed right upper lobe atelectasis post VATs with marked clinical and radiological improvement. Continue current supportive care. Patient responding well to current treatment regimen. Consultation Date/Type/Reason Admit Date/Time Apr 13, 2017 at 19:51 Initial Consult Date 04/15/17 Type of Consultation: Pulmonary Referring Provider: DARREL BURT MD 24 HR Interval Summary Free Text/Dictation Patient's condition is stable. Remains awake alert. Denies any shortness breath, cough, chest pain. Any abdominal pain. General exam; elderly woman, awake and alert. Currently in no distress. Exam/Review of Systems Vital Signs Vitals Vital Signs Date Time Temp Pulse Resp B/P Pulse Ox O2 Delivery O2 Flow Rate FiO2 05/20/17 08:00 Nasal Cannula 2.0 05/20/17 07:57 98.8 73 18 98/55 97 05/18/17 02:11 27 Intake and Output 05/19/17 05/19/17 05/20/17 15:00 23:00 07:00 Intake Total 50 ml 1210 ml 400 ml Output Total 750 ml Balance 50 ml 1210 ml -350 ml Exam HEENT exam; supple neck, no JVD. No lymphadenopathy. Midline trachea. No thyromegaly. Pharynx is clear. Patient has multiple carious teeth. Chest exam; clear to auscultation. S1-S2 audible, no murmurs. Regular rhythm. Abdomen exam; there is a epigastric drain in place. Right upper quadrant scar in place with betty applied. Abdomen is nontender. No organomegaly. Bowel sounds audible. Extremity exam; no peripheral edema. [employer] exam; no focal deficit. Results Result Diagram: 05/20/17 0436 05/20/17 0436 Results 24 hrs Laboratory Tests Test 05/19/17 16:59 05/19/17 21:27 05/20/17 04:36 05/20/17 08:22 Bedside Glucose 99 144 103 White Blood Count 8.4 Red Blood Count 2.88 L Hemoglobin 8.7 L Hematocrit 27.4 L Mean Corpuscular Volume 95.1 Mean Corpuscular Hemoglobin 30.2 Mean Corpuscular Hemoglobin Concent 31.8 L Red Cell Distribution Width 14.1 Platelet Count 523 H Mean Platelet Volume 7.9 Neutrophils % 58.1 Lymphocytes % 26.6 Monocytes % 10.9 Eosinophils % 3.4 Basophils % 0.5 Nucleated Red Blood Cells % 0.0 Neutrophils # 4.9 Lymphocytes # 2.2 Monocytes # 0.9 Eosinophils # 0.3 Basophils # 0.0 Nucleated Red Blood Cells # 0.0 Sodium Level 137 Potassium Level 4.5 Chloride Level 98 Carbon Dioxide Level 33 H Anion Gap 11 Blood Urea Nitrogen 16 Creatinine 0.50 Glucose Level 107 Calcium Level 9.5 Medications Medications Current Medications Miscellaneous Information 1 ea NOTE XX ; Start 04/13/17 at 21:30 Glucose (Glutose) 15 gm Q15M PRN PO DECREASED GLUCOSE; Start 04/13/17 at 21:30 Glucose (Glutose) 22.5 gm Q15M PRN PO DECREASED GLUCOSE; Start 04/13/17 at 21: 30 Dextrose (D50w Syringe) 25 ml Q15M PRN IV DECREASED GLUCOSE; Start 04/13/17 at 21:30 Dextrose (D50w Syringe) 50 ml Q15M PRN IV DECREASED GLUCOSE; Start 04/13/17 at 21:30 Glucagon (Glucagen) 1 mg Q15M PRN IM DECREASED GLUCOSE; Start 04/13/17 at 21:30 Glucose (Glutose) 15 gm Q15M PRN BUCCAL DECREASED GLUCOSE; Start 04/13/17 at 21 :30 Ondansetron HCl (Zofran Inj) 4 mg Q6 PRN IV NAUSEA AND/OR VOMITING Last administered on 04/26/17 20:25; Admin Dose 4 MG; Start 04/13/17 at 21:30 Guaifenesin/ Dextromethorphan (Robitussin Dm Liquid Cup) 5 ml Q4H PRN PO COUGH Last administered on 04/19/17 05:09; Admin Dose 5 ML; Start 04/15/17 at 16:30 Pantoprazole (Protonix Tab) 40 mg DAILY@06 PO Last administered on 05/20/17 05:17; Admin Dose 40 MG; Start 04/17/17 at 06:00 Acetaminophen (Tylenol Tab) 500 mg Q6H PRN PO PAIN AND OR ELEVATED TEMP Last administered on 05/06/17 03:25; Admin Dose 500 MG; Start 04/17/17 at 03:00 Magnesium Hydroxide 30 ml 30 ml DAILY PRN PO CONSTIPATION Last administered on 04/28/17 18:33; Admin Dose 30 ML; Start 04/17/17 at 11:30 Ampicillin Sodium/ Sulbactam Sodium (Unasyn 1.5gm/NS (Pmx)) 50 ml @ 100 mls/hr Q6 IVPB Last administered on 05/20/17 05:16; Admin Dose 100 MLS/HR; Start at 18:00 Fentanyl (Duragesic 12 Mcg/Hr Patch) 1 patch Q72H TRANSDERM Last administered on 05/19/17 06:33; Admin Dose 1 PATCH; Start 04/22/17 at 05:30 Morphine Sulfate (morphine) 1 mg Q4H PRN IV SEVERE PAIN LEVEL 7-10 Last administered on 05/16/17 01:08; Admin Dose 1 MG; Start 04/22/17 at 17:30 Metoclopramide HCl (Reglan) 10 mg Q6H PRN IV NAUSEA Last administered on 20:18; Admin Dose 10 MG; Start 04/22/17 at 21:00 Enoxaparin Sodium (Lovenox) 30 mg DAILY SC Last administered on 05/20/17 09: 15; Admin Dose 30 MG; Start 04/23/17 at 20:30 Acetaminophen (Tylenol Supp) 650 mg Q6H PRN [place] FEVER GREATER THAN 100.6; Start 04/23/17 at 20:30 Acetaminophen (Tylenol Tab) 650 mg Q6H PRN PO PAIN AND OR ELEVATED TEMP Last administered on 05/18/17 05:57; Admin Dose 650 MG; Start 04/23/17 at 20:30 Lactobacillus Acidophilus/ Rhamnosus (Culturelle) 1 cap BID PO Last administered on 05/20/17 09:14; Admin Dose 1 CAP; Start 04/24/17 at 11:30 Diagnostic Test (Pha) (Accu-Chek) 1 ea 02 XX ; Start 04/26/17 at 02:00 Docusate Sodium (Colace) 100 mg BID PO Last administered on 05/20/17 09:14; Admin Dose 100 MG; Start 04/30/17 at 21:00 Potassium Chloride (Klor-Con 20) 20 meq BID PO Last administered on 05/20/17 09:14; Admin Dose 20 MEQ; Start 05/04/17 at 21:00 Nalbuphine HCl (Nubain) 10 mg Q4H PRN IV PRURITUS; Start 05/07/17 at 13:30 Ondansetron HCl (Zofran Inj) 4 mg Q6H PRN IV NAUSEA AND/OR VOMITING; Start 05/07/17 at 13:30 Metoprolol Tartrate (Lopressor) 25 mg BID PO Last administered on 05/19/17 20 :57; Admin Dose 25 MG; Start 05/08/17 at 14:00 Furosemide (Lasix) 20 mg DAILY PO Last administered on 05/20/17 09:14; Admin Dose 20 MG; Start 05/19/17 at 09:00 LINDA GARCIA May 20, 2017 11:56
[2017-05-20 14:38] VITALS: BP 113/61; RESP 18
--- NOTE | 2017-05-20 14:56 | CONS ---
Date/Time of Note Date/Time of Note DATE: 05/20/17 TIME: 14:49 Assessment/Plan Assessment/Plan Chief Complaint/Hosp Course IMP: 1.Hypertension- on low side today. ? overdiuresis 2.abnl ecg-negative trop x 3/NL EF by echo. NO CP 3.Liver abscess s/p CT guided drainage 4.H/O lung ca s/p resection with lung nodules by CT? 5.Lung nodules 6. Hyponatremia-improved 7. Effusion s/p VATS/decortication Recc: -tele -s/p VATS/decortication -Continue abx's -F/U cx data -Continue BB as tolerated -pain control -Continue lasix PO and follow volume status/BP closely Problems: Consultation Date/Type/Reason Admit Date/Time Apr 13, 2017 at 19:51 Initial Consult Date 04/13/17 Type of Consultation: cardiology Reason for Consultation Chest pain Referring Provider: DARREL BURT MD Exam/Review of Systems Vital Signs Vitals Vital Signs Date Time Temp Pulse Resp B/P Pulse Ox O2 Delivery O2 Flow Rate FiO2 05/20/17 14:38 98.7 92 18 113/61 94 05/20/17 12:00 0.5 05/20/17 08:00 Nasal Cannula 05/18/17 02:11 27 Intake and Output 05/19/17 05/19/17 05/20/17 15:00 23:00 07:00 Intake Total 50 ml 1210 ml 400 ml Output Total 750 ml Balance 50 ml 1210 ml -350 ml Exam Review of Systems: CONSTITUTIONAL: No fevers, chills. PULMONARY: No sob CARDIOVASCULAR: No chest pain/palpitations GASTROINTESTINAL: No nausea/vomiting. GENITOURINARY: No hematuria/dysuria. MUSCULOSKELETAL: No myagias/arthalgias. PSYCHIATRIC: The patient denies depression. NEUROLOGIC: No weakness Constitutional: alert Psych: no complaints Head: normocephalic ENMT: mucosa pink and moist Neck: jvd (9 cm waater), supple Respiratory: diminished breath sounds (at bases/B) Cardiovascular: regular rate and rhythm Gastrointestinal: non-tender, soft Musculoskeletal: muscle tone (normal) Extremities: edema (none) 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: other (No focal deficits) Results Result Diagram: 05/20/17 0436 05/20/17 0436 Results 24 hrs Laboratory Tests Test 05/19/17 16:59 05/19/17 21:27 05/20/17 04:36 05/20/17 08:22 Bedside Glucose 99 144 103 White Blood Count 8.4 Red Blood Count 2.88 L Hemoglobin 8.7 L Hematocrit 27.4 L Mean Corpuscular Volume 95.1 Mean Corpuscular Hemoglobin 30.2 Mean Corpuscular Hemoglobin Concent 31.8 L Red Cell Distribution Width 14.1 Platelet Count 523 H Mean Platelet Volume 7.9 Neutrophils % 58.1 Lymphocytes % 26.6 Monocytes % 10.9 Eosinophils % 3.4 Basophils % 0.5 Nucleated Red Blood Cells % 0.0 Neutrophils # 4.9 Lymphocytes # 2.2 Monocytes # 0.9 Eosinophils # 0.3 Basophils # 0.0 Nucleated Red Blood Cells # 0.0 Sodium Level 137 Potassium Level 4.5 Chloride Level 98 Carbon Dioxide Level 33 H Anion Gap 11 Blood Urea Nitrogen 16 Creatinine 0.50 Glucose Level 107 Calcium Level 9.5 Test 05/20/17 12:28 Bedside Glucose 150 Medications Medications Current Medications Miscellaneous Information 1 ea NOTE XX ; Start 04/13/17 at 21:30 Glucose (Glutose) 15 gm Q15M PRN PO DECREASED GLUCOSE; Start 04/13/17 at 21:30 Glucose (Glutose) 22.5 gm Q15M PRN PO DECREASED GLUCOSE; Start 04/13/17 at 21: 30 Dextrose (D50w Syringe) 25 ml Q15M PRN IV DECREASED GLUCOSE; Start 04/13/17 at 21:30 Dextrose (D50w Syringe) 50 ml Q15M PRN IV DECREASED GLUCOSE; Start 04/13/17 at 21:30 Glucagon (Glucagen) 1 mg Q15M PRN IM DECREASED GLUCOSE; Start 04/13/17 at 21:30 Glucose (Glutose) 15 gm Q15M PRN BUCCAL DECREASED GLUCOSE; Start 04/13/17 at 21 :30 Ondansetron HCl (Zofran Inj) 4 mg Q6 PRN IV NAUSEA AND/OR VOMITING Last administered on 04/26/17 20:25; Admin Dose 4 MG; Start 04/13/17 at 21:30 Guaifenesin/ Dextromethorphan (Robitussin Dm Liquid Cup) 5 ml Q4H PRN PO COUGH Last administered on 04/19/17 05:09; Admin Dose 5 ML; Start 04/15/17 at 16:30 Pantoprazole (Protonix Tab) 40 mg DAILY@06 PO Last administered on 05/20/17 05:17; Admin Dose 40 MG; Start 04/17/17 at 06:00 Acetaminophen (Tylenol Tab) 500 mg Q6H PRN PO PAIN AND OR ELEVATED TEMP Last administered on 05/06/17 03:25; Admin Dose 500 MG; Start 04/17/17 at 03:00 Magnesium Hydroxide 30 ml 30 ml DAILY PRN PO CONSTIPATION Last administered on 04/28/17 18:33; Admin Dose 30 ML; Start 04/17/17 at 11:30 Ampicillin Sodium/ Sulbactam Sodium (Unasyn 1.5gm/NS (Pmx)) 50 ml @ 100 mls/hr Q6 IVPB Last administered on 05/20/17 12:37; Admin Dose 100 MLS/HR; Start at 18:00 Fentanyl (Duragesic 12 Mcg/Hr Patch) 1 patch Q72H TRANSDERM Last administered on 05/19/17 06:33; Admin Dose 1 PATCH; Start 04/22/17 at 05:30 Morphine Sulfate (morphine) 1 mg Q4H PRN IV SEVERE PAIN LEVEL 7-10 Last administered on 05/16/17 01:08; Admin Dose 1 MG; Start 04/22/17 at 17:30 Metoclopramide HCl (Reglan) 10 mg Q6H PRN IV NAUSEA Last administered on 20:18; Admin Dose 10 MG; Start 04/22/17 at 21:00 Enoxaparin Sodium (Lovenox) 30 mg DAILY SC Last administered on 05/20/17 09: 15; Admin Dose 30 MG; Start 04/23/17 at 20:30 Acetaminophen (Tylenol Supp) 650 mg Q6H PRN [place] FEVER GREATER THAN 100.6; Start 04/23/17 at 20:30 Acetaminophen (Tylenol Tab) 650 mg Q6H PRN PO PAIN AND OR ELEVATED TEMP Last administered on 05/18/17 05:57; Admin Dose 650 MG; Start 04/23/17 at 20:30 Lactobacillus Acidophilus/ Rhamnosus (Culturelle) 1 cap BID PO Last administered on 05/20/17 09:14; Admin Dose 1 CAP; Start 04/24/17 at 11:30 Diagnostic Test (Pha) (Accu-Chek) 1 ea 02 XX ; Start 04/26/17 at 02:00 Docusate Sodium (Colace) 100 mg BID PO Last administered on 05/20/17 09:14; Admin Dose 100 MG; Start 04/30/17 at 21:00 Potassium Chloride (Klor-Con 20) 20 meq BID PO Last administered on 05/20/17 09:14; Admin Dose 20 MEQ; Start 05/04/17 at 21:00 Nalbuphine HCl (Nubain) 10 mg Q4H PRN IV PRURITUS; Start 05/07/17 at 13:30 Ondansetron HCl (Zofran Inj) 4 mg Q6H PRN IV NAUSEA AND/OR VOMITING; Start 05/07/17 at 13:30 Metoprolol Tartrate (Lopressor) 25 mg BID PO Last administered on 05/19/17 20 :57; Admin Dose 25 MG; Start 05/08/17 at 14:00 Furosemide (Lasix) 20 mg DAILY PO Last administered on 05/20/17 09:14; Admin Dose 20 MG; Start 05/19/17 at 09:00 LILIANA BARKSDALE May 20, 2017 14:56
--- NOTE | 2017-05-20 16:31 | PN ---
Date/Time of Note Date/Time of Note DATE: 05/20/17 TIME: 16:26 Assessment/Plan VTE Prophylaxis VTE Prophylaxis Intervention: SCD's Lines/Catheters IV [facility] Urinary Cath still in place: No Assessment/Plan Chief Complaint/Hosp Course Patient is comfortable, encouraged to use incentive spirometer, PT evaluation. Patient status post liver drain d/cyn yesterday by Dr Ceballos, plan to reevaluate with CT scan of the abdomen in 1 week. Assessment/Plan - Bilateral pleural effusions right more than left, status post right thoracentesis 04/20. S/p right chest tube insertion on 04/[address] Jackson, vascular surgery. S/p right thoracentesis 04/26. S/P Right VATS decortication on 05/07. CT removed 05/12. - Acute respiratory failure secondary to #1, resolving. Dr. Damico is following in pulmonology consultation continue oxygen oxygen supplementation - Severe sepsis 2/2 to liver abscess, resolving. Continue antibiotics per ID. is following in infection disease consultation - Liver abscess, s/p CT guided drainage 04/15/2017, s/p CT guided percutaneous drainage of liver abscess 04/23, status post CT-guided liver abscess drainage . Drains d/cyn now. - Normocytic anemia requiring blood transfusion - Hx of rectal CA s/p Low anterior resection 08/29/2016 Further recommendations based on clinical course. Plan of care discussed with Dr. Dior Problems: Exam/Review of Systems Vital Signs Vitals Vital Signs Date Time Temp Pulse Resp B/P Pulse Ox O2 Delivery O2 Flow Rate FiO2 05/20/17 14:38 98.7 92 18 113/61 94 05/20/17 12:00 0.5 05/20/17 08:00 Nasal Cannula 05/18/17 02:11 27 Intake and Output 05/19/17 05/19/17 05/20/17 15:00 23:00 07:00 Intake Total 50 ml 1210 ml 400 ml Output Total 750 ml Balance 50 ml 1210 ml -350 ml Exam Constitutional: alert, oriented Neck: supple Respiratory: normal air movement Cardiovascular: nl pulses Gastrointestinal: non-tender, soft Extremities: normal pulses Results Result Diagram: 05/20/17 0436 05/20/17 0436 Results 24 hrs Laboratory Tests Test 05/19/17 16:59 05/19/17 21:27 05/20/17 04:36 05/20/17 08:22 Bedside Glucose 99 144 103 White Blood Count 8.4 Red Blood Count 2.88 L Hemoglobin 8.7 L Hematocrit 27.4 L Mean Corpuscular Volume 95.1 Mean Corpuscular Hemoglobin 30.2 Mean Corpuscular Hemoglobin Concent 31.8 L Red Cell Distribution Width 14.1 Platelet Count 523 H Mean Platelet Volume 7.9 Neutrophils % 58.1 Lymphocytes % 26.6 Monocytes % 10.9 Eosinophils % 3.4 Basophils % 0.5 Nucleated Red Blood Cells % 0.0 Neutrophils # 4.9 Lymphocytes # 2.2 Monocytes # 0.9 Eosinophils # 0.3 Basophils # 0.0 Nucleated Red Blood Cells # 0.0 Sodium Level 137 Potassium Level 4.5 Chloride Level 98 Carbon Dioxide Level 33 H Anion Gap 11 Blood Urea Nitrogen 16 Creatinine 0.50 Glucose Level 107 Calcium Level 9.5 Test 05/20/17 12:28 Bedside Glucose 150 Medications Medications Current Medications Miscellaneous Information 1 ea NOTE XX ; Start 04/13/17 at 21:30 Glucose (Glutose) 15 gm Q15M PRN PO DECREASED GLUCOSE; Start 04/13/17 at 21:30 Glucose (Glutose) 22.5 gm Q15M PRN PO DECREASED GLUCOSE; Start 04/13/17 at 21: 30 Dextrose (D50w Syringe) 25 ml Q15M PRN IV DECREASED GLUCOSE; Start 04/13/17 at 21:30 Dextrose (D50w Syringe) 50 ml Q15M PRN IV DECREASED GLUCOSE; Start 04/13/17 at 21:30 Glucagon (Glucagen) 1 mg Q15M PRN IM DECREASED GLUCOSE; Start 04/13/17 at 21:30 Glucose (Glutose) 15 gm Q15M PRN BUCCAL DECREASED GLUCOSE; Start 04/13/17 at 21 :30 Ondansetron HCl (Zofran Inj) 4 mg Q6 PRN IV NAUSEA AND/OR VOMITING Last administered on 04/26/17 20:25; Admin Dose 4 MG; Start 04/13/17 at 21:30 Guaifenesin/ Dextromethorphan (Robitussin Dm Liquid Cup) 5 ml Q4H PRN PO COUGH Last administered on 04/19/17 05:09; Admin Dose 5 ML; Start 04/15/17 at 16:30 Pantoprazole (Protonix Tab) 40 mg DAILY@06 PO Last administered on 05/20/17 05:17; Admin Dose 40 MG; Start 04/17/17 at 06:00 Acetaminophen (Tylenol Tab) 500 mg Q6H PRN PO PAIN AND OR ELEVATED TEMP Last administered on 05/06/17 03:25; Admin Dose 500 MG; Start 04/17/17 at 03:00 Magnesium Hydroxide 30 ml 30 ml DAILY PRN PO CONSTIPATION Last administered on 04/28/17 18:33; Admin Dose 30 ML; Start 04/17/17 at 11:30 Ampicillin Sodium/ Sulbactam Sodium (Unasyn 1.5gm/NS (Pmx)) 50 ml @ 100 mls/hr Q6 IVPB Last administered on 05/20/17 12:37; Admin Dose 100 MLS/HR; Start at 18:00 Fentanyl (Duragesic 12 Mcg/Hr Patch) 1 patch Q72H TRANSDERM Last administered on 05/19/17 06:33; Admin Dose 1 PATCH; Start 04/22/17 at 05:30 Morphine Sulfate (morphine) 1 mg Q4H PRN IV SEVERE PAIN LEVEL 7-10 Last administered on 05/16/17 01:08; Admin Dose 1 MG; Start 04/22/17 at 17:30 Metoclopramide HCl (Reglan) 10 mg Q6H PRN IV NAUSEA Last administered on 20:18; Admin Dose 10 MG; Start 04/22/17 at 21:00 Enoxaparin Sodium (Lovenox) 30 mg DAILY SC Last administered on 05/20/17 09: 15; Admin Dose 30 MG; Start 04/23/17 at 20:30 Acetaminophen (Tylenol Supp) 650 mg Q6H PRN [place] FEVER GREATER THAN 100.6; Start 04/23/17 at 20:30 Acetaminophen (Tylenol Tab) 650 mg Q6H PRN PO PAIN AND OR ELEVATED TEMP Last administered on 05/18/17 05:57; Admin Dose 650 MG; Start 04/23/17 at 20:30 Lactobacillus Acidophilus/ Rhamnosus (Culturelle) 1 cap BID PO Last administered on 05/20/17 09:14; Admin Dose 1 CAP; Start 04/24/17 at 11:30 Diagnostic Test (Pha) (Accu-Chek) 1 ea 02 XX ; Start 04/26/17 at 02:00 Docusate Sodium (Colace) 100 mg BID PO Last administered on 05/20/17 09:14; Admin Dose 100 MG; Start 04/30/17 at 21:00 Potassium Chloride (Klor-Con 20) 20 meq BID PO Last administered on 05/20/17 09:14; Admin Dose 20 MEQ; Start 05/04/17 at 21:00 Nalbuphine HCl (Nubain) 10 mg Q4H PRN IV PRURITUS; Start 05/07/17 at 13:30 Ondansetron HCl (Zofran Inj) 4 mg Q6H PRN IV NAUSEA AND/OR VOMITING; Start 05/07/17 at 13:30 Metoprolol Tartrate (Lopressor) 25 mg BID PO Last administered on 05/19/17 20 :57; Admin Dose 25 MG; Start 05/08/17 at 14:00 Furosemide (Lasix) 20 mg DAILY PO Last administered on 05/20/17 09:14; Admin Dose 20 MG; Start 05/19/17 at 09:00 WINDY EMERY May 20, 2017 16:31
[2017-05-20 20:05] VITALS: BP 115/64; PULSE 88
--- NOTE | 2017-05-20 20:25 | PN ---
DATE: 05/20/2017 SUBJECTIVE: No complaint. No abdominal pain. No nausea and no vomiting. Has had bowel movement. Tolerating diet. OBJECTIVE: VITAL SIGNS: Temperature 98.7, heart rate 92, respiration 18, blood pressure 113/61, saturation 94% on 2 liters nasal cannula oxygen. LABORATORY DATA: Sodium and potassium normal. BUN and creatinine normal. WBC 8400, hemoglobin 8.7, hematocrit 27.4, platelet count 523 - high. The patient has been transferred from telemetry to Med/Surg. ASSESSMENT: A 66-year-old female who presented with sepsis and was found to have multiloculated and multilobulated liver abscess. Because of the position and situation of the liver abscess, the decision was made to proceed with percutaneous drainage. It was done by Invasive Radiology placing pigtail catheters in 3 locations. The last pigtail was removed yesterday, per recommendation of radiologist. The central abscess has been almost cleared. There are maybe a couple of peripheral abscesses in the right upper posterior segment of liver. radiologist stated that are not amenable to percutaneous drainage. The patient is receiving antibiotic, and per recommendation of Infectious Disease, she will receive it at least for 6 weeks; now is about 4 weeks. Meanwhile, the patient developed right pleural effusion, which was aspirated a couple of times and became loculated, and eventually, thoracic surgeon did VATS on her with decortication, and gradually, the patient is getting better. Last chest x-ray shows more aeration of the right upper lobe, which was atelectasis. The wounds were clean. PLAN: Continue antibiotics. Repeat CT scan in 1 week and reevaluate with radiologist to see if they can do a percutaneous drainage. Dictated By: JOHN BURGOS MD PS/NTS Conf#: [id number] DID#: [id number] CC: DARREL BURT MD;*EndCC* MTDD
[2017-05-20 21:32] VITALS: BP 91/51; RESP 20
[2017-05-21] MEDS: AMPICILLIN/SULB 1.5GM/NS (PMX) 50 ML IVPB SCH ×5 (00:14→23:58)
[2017-05-21] MEDS: ACCU-CHEK XX SCH ×2 (02:00→02:12)
[2017-05-21 02:20] VITALS: BP 113/54; RESP 20
[2017-05-21] MEDS: PANTOPRAZOLE (EC) 40 MG TAB PO SCH (05:15)
[2017-05-21 05:20] LABS: BASOPHIL # 0.1 10^3/ul (0.0-0.1); BASOPHILS % 0.6 % (0.0-2.0); EOSINOPHILS # 0.2 10^3/ul (0.0-0.5); HEMATOCRIT 28.8 % (37.0-47.0); HEMOGLOBIN 9.1 g/dl (12.0-16.0); LYMPHOCYTES # 2.4 10^3/ul (0.8-2.9); LYMPHOCYTES % 29.5 % (15.0-51.0); MEAN CORPUSCULAR HEMOGLOBIN 29.4 pg (29.0-33.0); MEAN CORPUSCULAR HGB CONC 31.6 g/dl (32.0-37.0); MEAN CORPUSCULAR VOLUME 93.2 fl (82.0-101.0); MEAN PLATELET VOLUME 7.8 fl (7.4-10.4); MONOCYTE # 0.8 10^3/ul (0.3-0.9); NEUTROPHIL # 4.5 10^3/ul (1.6-7.5); NEUTROPHILS % 56.6 % (39.0-77.0); PLATELET COUNT 490 10^3/UL (140-415); RED BLOOD COUNT 3.09 10^6/ul (4.20-5.40); RED CELL DISTRIBUTION WIDTH 14.3 % (11.5-14.5)
[2017-05-21 05:35] LABS: CALCIUM 9.8 mg/dl (8.4-10.2); CREATININE 0.42 mg/dl (0.44-1.00); POTASSIUM 4.5 mmol/L (3.5-5.1)
[2017-05-21] MEDS: Insulin NOVOLOG SS MILD Algorithm (SS with meals and bedtime) SC SCH ×2 (07:20→11:10)
[2017-05-21 07:59] VITALS: BP 102/55; RESP 18
[2017-05-21] MEDS: LACTOBACILLUS RHAMNOSUS CAP PO SCH ×2 (08:33→21:09)
[2017-05-21] MEDS: POTASSIUM CHLORIDE (SR) 20 MEQ TAB PO SCH (08:33)
[2017-05-21] MEDS: FUROSEMIDE 20 MG TAB PO SCH (08:34)
[2017-05-21] MEDS: METOPROLOL 25 MG TAB PO SCH ×2 (08:34→21:10)
[2017-05-21] MEDS: DOCUSATE SODIUM 100 MG CAP PO SCH ×2 (08:35→21:09)
[2017-05-21] MEDS: ENOXAPARIN 30 MG/0.3 ML SYG SC SCH (08:39)
--- NOTE | 2017-05-21 09:28 | CONS ---
Date/Time of Note Date/Time of Note DATE: 05/21/17 TIME: 09:27 Assessment/Plan Assessment/Plan Chief Complaint/Hosp Course - severe sepsis due to pyogenic liver abscess, loculated pleural effusion s/p R thoracotomy, thoracoscopy, total pulmonary decortication on 05/07/2017. Path showed fibrin, necrotic tissue and abscess, no evidence of malignancy. - multiloculated pyogenic liver abscess s/p CT guided drainage catheter placement 04/15/2017, 04/23/2017, s/p repeat drainage 04/27/2017; cultures from gamma hemolytic strep, cultures from 04/23/2017 alpha hemolytic strep. F/ u CT on 05/16/2017 showed persistent but smaller multiloculated fluid collection. The drainage catheter was removed on 05/19/2017 - loculated pleural effusion likely secondary to hepatic process/hepatic hydrothorax, R>L, s/p R thoracentesis on 04/20/2017, s/p chest tube placement on 04/22/2017. It was moved. - intermittent diarrhea, resolved - normocytic anemia requiring blood transfusion - coagulopathy, improved - transaminitis, improved - CoNS in urine culture with trivial pyuria, likely contaminant - Hx of rectal CA s/p Low anterior resection 08/29/2016 - Severe protein calorie malnutrition - allergy to vancomycin - probable neuropathic pain of R chest wall post surgery recommendations: - continue IV amp/sulbactam (04/18/2017-); s/p linezolid and pip/tazo (04/13-2016). monitor at least weekly CBC and BMP while Pt's on antibiotic - we recommend long-term (6 weeks at least, 05/30/2017) IV amp/sulbactam and repeat CT; if it shows residual infection, I recommend PO antibiotic (e.g. Augmentin) until all lesions resolve management d/w Pt Problems: Consultation Date/Type/Reason Admit Date/Time Apr 13, 2017 at 19:51 Initial Consult Date 04/21/17 Type of Consultation: ID Referring Provider: DARREL BURT MD 24 HR Interval Summary Constitutional: no complaints Detailed Summary Eyes: no complaints ENT: no complaints Respiratory: pleuritic pain (only with body and R arm movement ) Cardiovascular: no complaints Gastrointestinal: no complaints Genitourinary: no complaints Musculoskeletal: no complaints Skin: no complaints Exam/Review of Systems Vital Signs Vitals Vital Signs Date Time Temp Pulse Resp B/P Pulse Ox O2 Delivery O2 Flow Rate FiO2 05/21/17 07:59 98.3 86 18 102/55 94 05/20/17 12:00 0.5 05/20/17 08:00 Nasal Cannula 05/18/17 02:11 27 Intake and Output 05/20/17 05/20/17 05/21/17 15:00 23:00 07:00 Intake Total 50 ml 887 ml 700 ml Output Total 600 ml Balance 50 ml 287 ml 700 ml Exam Constitutional: alert, oriented, well developed Psych: nl mood/affect, no complaints Head: atraumatic, normocephalic Eyes: nl conjunctiva, nl lids ENMT: mucosa pink and moist, nl external ears & nose, nl nasal mucosa & septum Respiratory: diminished breath sounds, other (R chest wound is dressed) Cardiovascular: nl pulses, regular rate and rhythm Gastrointestinal: non-tender, soft Musculoskeletal: nl extremities to inspection Results Result Diagram: 05/21/17 0452 05/21/17 0452 Results 24 hrs Laboratory Tests Test 05/20/17 12:28 05/20/17 17:38 05/20/17 20:04 05/21/17 04:52 Bedside Glucose 150 113 113 White Blood Count 8.0 Red Blood Count 3.09 L Hemoglobin 9.1 L Hematocrit 28.8 L Mean Corpuscular Volume 93.2 Mean Corpuscular Hemoglobin 29.4 Mean Corpuscular Hemoglobin Concent 31.6 L Red Cell Distribution Width 14.3 Platelet Count 490 H Mean Platelet Volume 7.8 Neutrophils % 56.6 Lymphocytes % 29.5 Monocytes % 10.0 Eosinophils % 3.0 Basophils % 0.6 Nucleated Red Blood Cells % 0.0 Neutrophils # 4.5 Lymphocytes # 2.4 Monocytes # 0.8 Eosinophils # 0.2 Basophils # 0.1 Nucleated Red Blood Cells # 0.0 Sodium Level 137 Potassium Level 4.5 Chloride Level 99 Carbon Dioxide Level 35 H Anion Gap 8 Blood Urea Nitrogen 14 Creatinine 0.42 L Glucose Level 109 Calcium Level 9.8 Test 05/21/17 07:56 Bedside Glucose 96 Medications Medications Current Medications Miscellaneous Information 1 ea NOTE XX ; Start 04/13/17 at 21:30 Glucose (Glutose) 15 gm Q15M PRN PO DECREASED GLUCOSE; Start 04/13/17 at 21:30 Glucose (Glutose) 22.5 gm Q15M PRN PO DECREASED GLUCOSE; Start 04/13/17 at 21: 30 Dextrose (D50w Syringe) 25 ml Q15M PRN IV DECREASED GLUCOSE; Start 04/13/17 at 21:30 Dextrose (D50w Syringe) 50 ml Q15M PRN IV DECREASED GLUCOSE; Start 04/13/17 at 21:30 Glucagon (Glucagen) 1 mg Q15M PRN IM DECREASED GLUCOSE; Start 04/13/17 at 21:30 Glucose (Glutose) 15 gm Q15M PRN BUCCAL DECREASED GLUCOSE; Start 04/13/17 at 21 :30 Ondansetron HCl (Zofran Inj) 4 mg Q6 PRN IV NAUSEA AND/OR VOMITING Last administered on 04/26/17 20:25; Admin Dose 4 MG; Start 04/13/17 at 21:30 Guaifenesin/ Dextromethorphan (Robitussin Dm Liquid Cup) 5 ml Q4H PRN PO COUGH Last administered on 04/19/17 05:09; Admin Dose 5 ML; Start 04/15/17 at 16:30 Pantoprazole (Protonix Tab) 40 mg DAILY@06 PO Last administered on 05/21/17 05:15; Admin Dose 40 MG; Start 04/17/17 at 06:00 Acetaminophen (Tylenol Tab) 500 mg Q6H PRN PO PAIN AND OR ELEVATED TEMP Last administered on 05/06/17 03:25; Admin Dose 500 MG; Start 04/17/17 at 03:00 Magnesium Hydroxide 30 ml 30 ml DAILY PRN PO CONSTIPATION Last administered on 04/28/17 18:33; Admin Dose 30 ML; Start 04/17/17 at 11:30 Ampicillin Sodium/ Sulbactam Sodium (Unasyn 1.5gm/NS (Pmx)) 50 ml @ 100 mls/hr Q6 IVPB Last administered on 05/21/17 05:14; Admin Dose 100 MLS/HR; Start at 18:00 Fentanyl (Duragesic 12 Mcg/Hr Patch) 1 patch Q72H TRANSDERM Last administered on 05/19/17 06:33; Admin Dose 1 PATCH; Start 04/22/17 at 05:30 Morphine Sulfate (morphine) 1 mg Q4H PRN IV SEVERE PAIN LEVEL 7-10 Last administered on 05/16/17 01:08; Admin Dose 1 MG; Start 04/22/17 at 17:30 Metoclopramide HCl (Reglan) 10 mg Q6H PRN IV NAUSEA Last administered on 20:18; Admin Dose 10 MG; Start 04/22/17 at 21:00 Enoxaparin Sodium (Lovenox) 30 mg DAILY SC Last administered on 05/21/17 08: 39; Admin Dose 30 MG; Start 04/23/17 at 20:30 Acetaminophen (Tylenol Supp) 650 mg Q6H PRN [place] FEVER GREATER THAN 100.6; Start 04/23/17 at 20:30 Acetaminophen (Tylenol Tab) 650 mg Q6H PRN PO PAIN AND OR ELEVATED TEMP Last administered on 05/18/17 05:57; Admin Dose 650 MG; Start 04/23/17 at 20:30 Lactobacillus Acidophilus/ Rhamnosus (Culturelle) 1 cap BID PO Last administered on 05/21/17 08:33; Admin Dose 1 CAP; Start 04/24/17 at 11:30 Diagnostic Test (Pha) (Accu-Chek) 1 ea 02 XX ; Start 04/26/17 at 02:00 Docusate Sodium (Colace) 100 mg BID PO Last administered on 05/21/17 08:35; Admin Dose 100 MG; Start 04/30/17 at 21:00 Potassium Chloride (Klor-Con 20) 20 meq BID PO Last administered on 05/21/17 08:33; Admin Dose 20 MEQ; Start 05/04/17 at 21:00 Nalbuphine HCl (Nubain) 10 mg Q4H PRN IV PRURITUS; Start 05/07/17 at 13:30 Ondansetron HCl (Zofran Inj) 4 mg Q6H PRN IV NAUSEA AND/OR VOMITING; Start 05/07/17 at 13:30 Metoprolol Tartrate (Lopressor) 25 mg BID PO Last administered on 05/20/17 20 :08; Admin Dose 25 MG; Start 05/08/17 at 14:00 Furosemide (Lasix) 20 mg DAILY PO Last administered on 05/21/17 08:34; Admin Dose 20 MG; Start 05/19/17 at 09:00 AARON ANSARI M.D. May 21, 2017 09:28
--- NOTE | 2017-05-21 12:46 | CONS ---
Date/Time of Note Date/Time of Note DATE: 05/21/17 TIME: 12:45 Consult Date/Type/Reason Admit Date/Time Apr 13, 2017 at 19:51 Initial Consult Date 04/15/17 Type of Consultation: Pulmonary Ordering Provider: DARREL BURT MD Subjective Comfortable this morning. No new events. Objective Vital Signs Date Time Temp Pulse Resp B/P Pulse Ox O2 Delivery O2 Flow Rate FiO2 05/21/17 07:59 98.3 86 18 102/55 94 05/20/17 12:00 0.5 05/20/17 08:00 Nasal Cannula 05/18/17 02:11 27 Intake and Output 05/20/17 05/20/17 05/21/17 15:00 23:00 07:00 Intake Total 50 ml 887 ml 700 ml Output Total 600 ml Balance 50 ml 287 ml 700 ml Exam GENERAL: VITAL SIGNS: per chart NECK: Supple. No JVD or lymphadenopathy. CARDIAC EXAM: S1, S2. No added sounds or murmurs. CHEST: clear bilaterally, No added sounds, rales or wheezes ABDOMEN: Soft, nontender. No guarding or rebound. EXTREMITIES: No cyanosis, clubbing or edema. NEUROLOGIC: Generalized weakness. No focal deficits. Results/Medications Result Diagram: 05/21/17 0452 05/21/17 0452 Results 24 hrs Laboratory Tests Test 05/20/17 17:38 05/20/17 20:04 05/21/17 04:52 05/21/17 07:56 Bedside Glucose 113 113 96 White Blood Count 8.0 Red Blood Count 3.09 L Hemoglobin 9.1 L Hematocrit 28.8 L Mean Corpuscular Volume 93.2 Mean Corpuscular Hemoglobin 29.4 Mean Corpuscular Hemoglobin Concent 31.6 L Red Cell Distribution Width 14.3 Platelet Count 490 H Mean Platelet Volume 7.8 Neutrophils % 56.6 Lymphocytes % 29.5 Monocytes % 10.0 Eosinophils % 3.0 Basophils % 0.6 Nucleated Red Blood Cells % 0.0 Neutrophils # 4.5 Lymphocytes # 2.4 Monocytes # 0.8 Eosinophils # 0.2 Basophils # 0.1 Nucleated Red Blood Cells # 0.0 Sodium Level 137 Potassium Level 4.5 Chloride Level 99 Carbon Dioxide Level 35 H Anion Gap 8 Blood Urea Nitrogen 14 Creatinine 0.42 L Glucose Level 109 Calcium Level 9.8 Medications Current Medications Miscellaneous Information 1 ea NOTE XX ; Start 04/13/17 at 21:30 Glucose (Glutose) 15 gm Q15M PRN PO DECREASED GLUCOSE; Start 04/13/17 at 21:30 Glucose (Glutose) 22.5 gm Q15M PRN PO DECREASED GLUCOSE; Start 04/13/17 at 21: 30 Dextrose (D50w Syringe) 25 ml Q15M PRN IV DECREASED GLUCOSE; Start 04/13/17 at 21:30 Dextrose (D50w Syringe) 50 ml Q15M PRN IV DECREASED GLUCOSE; Start 04/13/17 at 21:30 Glucagon (Glucagen) 1 mg Q15M PRN IM DECREASED GLUCOSE; Start 04/13/17 at 21:30 Glucose (Glutose) 15 gm Q15M PRN BUCCAL DECREASED GLUCOSE; Start 04/13/17 at 21 :30 Ondansetron HCl (Zofran Inj) 4 mg Q6 PRN IV NAUSEA AND/OR VOMITING Last administered on 04/26/17 20:25; Admin Dose 4 MG; Start 04/13/17 at 21:30 Guaifenesin/ Dextromethorphan (Robitussin Dm Liquid Cup) 5 ml Q4H PRN PO COUGH Last administered on 04/19/17 05:09; Admin Dose 5 ML; Start 04/15/17 at 16:30 Pantoprazole (Protonix Tab) 40 mg DAILY@06 PO Last administered on 05/21/17 05:15; Admin Dose 40 MG; Start 04/17/17 at 06:00 Acetaminophen (Tylenol Tab) 500 mg Q6H PRN PO PAIN AND OR ELEVATED TEMP Last administered on 05/06/17 03:25; Admin Dose 500 MG; Start 04/17/17 at 03:00 Magnesium Hydroxide 30 ml 30 ml DAILY PRN PO CONSTIPATION Last administered on 04/28/17 18:33; Admin Dose 30 ML; Start 04/17/17 at 11:30 Ampicillin Sodium/ Sulbactam Sodium (Unasyn 1.5gm/NS (Pmx)) 50 ml @ 100 mls/hr Q6 IVPB Last administered on 05/21/17 12:12; Admin Dose 100 MLS/HR; Start at 18:00 Fentanyl (Duragesic 12 Mcg/Hr Patch) 1 patch Q72H TRANSDERM Last administered on 05/19/17 06:33; Admin Dose 1 PATCH; Start 04/22/17 at 05:30 Morphine Sulfate (morphine) 1 mg Q4H PRN IV SEVERE PAIN LEVEL 7-10 Last administered on 05/16/17 01:08; Admin Dose 1 MG; Start 04/22/17 at 17:30 Metoclopramide HCl (Reglan) 10 mg Q6H PRN IV NAUSEA Last administered on 20:18; Admin Dose 10 MG; Start 04/22/17 at 21:00 Enoxaparin Sodium (Lovenox) 30 mg DAILY SC Last administered on 05/21/17 08: 39; Admin Dose 30 MG; Start 04/23/17 at 20:30 Acetaminophen (Tylenol Supp) 650 mg Q6H PRN [place] FEVER GREATER THAN 100.6; Start 04/23/17 at 20:30 Acetaminophen (Tylenol Tab) 650 mg Q6H PRN PO PAIN AND OR ELEVATED TEMP Last administered on 05/18/17 05:57; Admin Dose 650 MG; Start 04/23/17 at 20:30 Lactobacillus Acidophilus/ Rhamnosus (Culturelle) 1 cap BID PO Last administered on 05/21/17 08:33; Admin Dose 1 CAP; Start 04/24/17 at 11:30 Diagnostic Test (Pha) (Accu-Chek) 1 ea 02 XX ; Start 04/26/17 at 02:00 Docusate Sodium (Colace) 100 mg BID PO Last administered on 05/21/17 08:35; Admin Dose 100 MG; Start 04/30/17 at 21:00 Potassium Chloride (Klor-Con 20) 20 meq BID PO Last administered on 05/21/17 08:33; Admin Dose 20 MEQ; Start 05/04/17 at 21:00 Nalbuphine HCl (Nubain) 10 mg Q4H PRN IV PRURITUS; Start 05/07/17 at 13:30 Ondansetron HCl (Zofran Inj) 4 mg Q6H PRN IV NAUSEA AND/OR VOMITING; Start 05/07/17 at 13:30 Metoprolol Tartrate (Lopressor) 25 mg BID PO Last administered on 05/20/17 20 :08; Admin Dose 25 MG; Start 05/08/17 at 14:00 Furosemide (Lasix) 20 mg DAILY PO Last administered on 05/21/17t 08:34; Admin Dose 20 MG; Start 05/19/17 at 09:00 Assessment/Plan Chief Complaint/Hosp Course Assessment 1. Loculated pleural effusion likely secondary to hepatic abscesses. History of colon CA 2. Status post decortication doing well from pulmonary standpoint Plan 1. Continue incentive spirometry 2. Encourage out of bed DC planning okay from primary standpoint Problems: DEN[facility] BRAVO [facility], [facility] May 21, 2017 12:46
[2017-05-21 13:18] VITALS: BP 118/59; RESP 18
--- NOTE | 2017-05-21 14:11 | CONS ---
Date/Time of Note Date/Time of Note DATE: 05/21/17 TIME: 14:10 Assessment/Plan Assessment/Plan Chief Complaint/Hosp Course IMP: 1.Hypertension- on low side today. ? overdiuresis 2.abnl ecg-negative trop x 3/NL EF by echo. NO CP 3.Liver abscess s/p CT guided drainage 4.H/O lung ca s/p resection with lung nodules by CT? 5.Lung nodules 6. Hyponatremia-improved 7. Effusion s/p VATS/decortication Recc: -tele -s/p VATS/decortication -Continue abx's -F/U cx data -Continue BB as tolerated and thus will decrsae dose -pain control -Hold lasix PO and follow volume status/BP closely Problems: Consultation Date/Type/Reason Admit Date/Time Apr 13, 2017 at 19:51 Initial Consult Date 04/13/17 Type of Consultation: cardiology Reason for Consultation CHF Referring Provider: DARREL BURT MD Exam/Review of Systems Vital Signs Vitals Vital Signs Date Time Temp Pulse Resp B/P Pulse Ox O2 Delivery O2 Flow Rate FiO2 05/21/17 13:18 97.5 88 18 118/59 95 05/20/17 12:00 0.5 05/20/17 08:00 Nasal Cannula 05/18/17 02:11 27 Intake and Output 05/20/17 05/20/17 05/21/17 15:00 23:00 07:00 Intake Total 50 ml 887 ml 700 ml Output Total 600 ml Balance 50 ml 287 ml 700 ml Exam Review of Systems: CONSTITUTIONAL: No fevers, chills. PULMONARY: No sob CARDIOVASCULAR: No chest pain/palpitations GASTROINTESTINAL: No nausea/vomiting. GENITOURINARY: No hematuria/dysuria. MUSCULOSKELETAL: No myagias/arthalgias. PSYCHIATRIC: The patient denies depression. NEUROLOGIC: No weakness Constitutional: alert, oriented Psych: no complaints Head: normocephalic ENMT: mucosa pink and moist Neck: jvd (9 cm water), supple Respiratory: diminished breath sounds (at bases/B) Cardiovascular: regular rate and rhythm Gastrointestinal: non-tender, soft Musculoskeletal: muscle tone (normal) Extremities: edema (nonr) 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: other (No focal deficits) Results Result Diagram: 05/21/1745105/21/17451 Results 24 hrs Laboratory Tests Test 05/20/17 17:38 05/20/17 20:04 05/21/17 04:52 05/21/17 07:56 Bedside Glucose 113 113 96 White Blood Count 8.0 Red Blood Count 3.09 L Hemoglobin 9.1 L Hematocrit 28.8 L Mean Corpuscular Volume 93.2 Mean Corpuscular Hemoglobin 29.4 Mean Corpuscular Hemoglobin Concent 31.6 L Red Cell Distribution Width 14.3 Platelet Count 490 H Mean Platelet Volume 7.8 Neutrophils % 56.6 Lymphocytes % 29.5 Monocytes % 10.0 Eosinophils % 3.0 Basophils % 0.6 Nucleated Red Blood Cells % 0.0 Neutrophils # 4.5 Lymphocytes # 2.4 Monocytes # 0.8 Eosinophils # 0.2 Basophils # 0.1 Nucleated Red Blood Cells # 0.0 Sodium Level 137 Potassium Level 4.5 Chloride Level 99 Carbon Dioxide Level 35 H Anion Gap 8 Blood Urea Nitrogen 14 Creatinine 0.42 L Glucose Level 109 Calcium Level 9.8 Test 05/21/17 12:52 Bedside Glucose 100 Medications Medications Current Medications Miscellaneous Information 1 ea NOTE XX ; Start 04/13/17 at 21:30 Glucose (Glutose) 15 gm Q15M PRN PO DECREASED GLUCOSE; Start 04/13/17 at 21:30 Glucose (Glutose) 22.5 gm Q15M PRN PO DECREASED GLUCOSE; Start 04/13/17 at 21: 30 Dextrose (D50w Syringe) 25 ml Q15M PRN IV DECREASED GLUCOSE; Start 04/13/17 at 21:30 Dextrose (D50w Syringe) 50 ml Q15M PRN IV DECREASED GLUCOSE; Start 04/13/17 at 21:30 Glucagon (Glucagen) 1 mg Q15M PRN IM DECREASED GLUCOSE; Start 04/13/17 at 21:30 Glucose (Glutose) 15 gm Q15M PRN BUCCAL DECREASED GLUCOSE; Start 04/13/17 at 21 :30 Ondansetron HCl (Zofran Inj) 4 mg Q6 PRN IV NAUSEA AND/OR VOMITING Last administered on 04/26/17 20:25; Admin Dose 4 MG; Start 04/13/17 at 21:30 Guaifenesin/ Dextromethorphan (Robitussin Dm Liquid Cup) 5 ml Q4H PRN PO COUGH Last administered on 04/19/17 05:09; Admin Dose 5 ML; Start 04/15/17 at 16:30 Pantoprazole (Protonix Tab) 40 mg DAILY@06 PO Last administered on 05/21/17 05:15; Admin Dose 40 MG; Start 04/17/17 at 06:00 Acetaminophen (Tylenol Tab) 500 mg Q6H PRN PO PAIN AND OR ELEVATED TEMP Last administered on 05/06/17 03:25; Admin Dose 500 MG; Start 04/17/17 at 03:00 Magnesium Hydroxide 30 ml 30 ml DAILY PRN PO CONSTIPATION Last administered on 04/28/17 18:33; Admin Dose 30 ML; Start 04/17/17 at 11:30 Ampicillin Sodium/ Sulbactam Sodium (Unasyn 1.5gm/NS (Pmx)) 50 ml @ 100 mls/hr Q6 IVPB Last administered on 05/21/17 12:12; Admin Dose 100 MLS/HR; Start at 18:00 Fentanyl (Duragesic 12 Mcg/Hr Patch) 1 patch Q72H TRANSDERM Last administered on 05/19/17 06:33; Admin Dose 1 PATCH; Start 04/22/17 at 05:30 Morphine Sulfate (morphine) 1 mg Q4H PRN IV SEVERE PAIN LEVEL 7-10 Last administered on 05/16/17 01:08; Admin Dose 1 MG; Start 04/22/17 at 17:30 Metoclopramide HCl (Reglan) 10 mg Q6H PRN IV NAUSEA Last administered on 20:18; Admin Dose 10 MG; Start 04/22/17 at 21:00 Enoxaparin Sodium (Lovenox) 30 mg DAILY SC Last administered on 05/21/17 08: 39; Admin Dose 30 MG; Start 04/23/17 at 20:30 Acetaminophen (Tylenol Supp) 650 mg Q6H PRN [place] FEVER GREATER THAN 100.6; Start 04/23/17 at 20:30 Acetaminophen (Tylenol Tab) 650 mg Q6H PRN PO PAIN AND OR ELEVATED TEMP Last administered on 05/18/17 05:57; Admin Dose 650 MG; Start 04/23/17 at 20:30 Lactobacillus Acidophilus/ Rhamnosus (Culturelle) 1 cap BID PO Last administered on 05/21/17 08:33; Admin Dose 1 CAP; Start 04/24/17 at 11:30 Diagnostic Test (Pha) (Accu-Chek) 1 ea 02 XX ; Start 04/26/17 at 02:00 Docusate Sodium (Colace) 100 mg BID PO Last administered on 05/21/17 08:35; Admin Dose 100 MG; Start 04/30/17 at 21:00 Potassium Chloride (Klor-Con 20) 20 meq BID PO Last administered on 05/21/17 08:33; Admin Dose 20 MEQ; Start 05/04/17 at 21:00 Nalbuphine HCl (Nubain) 10 mg Q4H PRN IV PRURITUS; Start 05/07/17 at 13:30 Ondansetron HCl (Zofran Inj) 4 mg Q6H PRN IV NAUSEA AND/OR VOMITING; Start 05/07/17 at 13:30 Metoprolol Tartrate (Lopressor) 25 mg BID PO Last administered on 05/20/17 20 :08; Admin Dose 25 MG; Start 05/08/17 at 14:00 Furosemide (Lasix) 20 mg DAILY PO Last administered on 05/21/17 08:34; Admin Dose 20 MG; Start 05/19/17 at 09:00 LILIANA BARKSDALE May 21, 2017 14:11
--- NOTE | 2017-05-21 17:35 | CONS ---
Date/Time of Note Date/Time of Note DATE: 05/21/17 TIME: 17:34 Assessment/Plan Assessment/Plan Chief Complaint/Hosp Course Problems: Additional Assessment/Plan 1. Bilateral pleural effusions right more than left, status post right thoracentesis 04/20. S/p right chest tube insertion on 04/[address] Jackson, vascular surgery. S/p right thoracentesis 04/26. - s/p Right VATS decortication 05/07/2017 2. Acute hyponatremia 2/2 Hypovolemic hyponatremia - Resolved 2. sepsis due to liver abscess 3. Hepatic abscess oN CT scan s/p CT guided drainage on 04/15/17 and 04/23/17 4. Acute transaminitis 5. h/o Colon CA s/p previous Surgery 6. Hypokalemia 7. acute resp failiue due to # 1 8. hypomagnesemia Plan : S/p Right VATS decortication, chest tube discontinued , CXR showed complete opacificatin of rigth lung - pt stable respiration, starution ok with 2 L NC , pulmonary has been following lasix 20mg pO BID with KCL replacement , Cr normal, HCo3 35- will monitor it.- if continues to rise HCO3 then we will decrease lasix dose IV abx as per ID, renally dose all abx abdominal drain has been removed by G surg, will monitor it will follow up Consultation Date/Type/Reason Admit Date/Time Apr 13, 2017 at 19:51 Initial Consult Date 04/13/17 Type of Consultation: NEPHROLOGY Referring Provider: DARREL BURT MD 24 HR Interval Summary Free Text/Dictation Getting PT evaluation now, No other acute events Exam/Review of Systems Vital Signs Vitals Vital Signs Date Time Temp Pulse Resp B/P Pulse Ox O2 Delivery O2 Flow Rate FiO2 05/21/17 16:26 1.0 05/21/17 13:18 97.5 88 18 118/59 95 05/20/17 08:00 Nasal Cannula 05/18/17 02:11 27 Intake and Output 05/20/17 05/20/17 05/21/17 14:59 22:59 06:59 Intake Total 50 ml 887 ml 700 ml Output Total 600 ml Balance 50 ml 287 ml 700 ml Exam Constitutional: alert, frail, oriented Respiratory: diminished breath sounds,, RML and RLL rales Cardiovascular: nl pulses, regular rate and rhythm Musculoskeletal: nl extremities to inspection Extremities: No edema 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: SHORER II-XII intact, 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 ABD: soft, NT, dressing in place at previous drain site Results Result Diagram: 05/21/172 05/21/17 0452 Results 24 hrs Laboratory Tests Test 05/20/17 17:38 05/20/17 20:04 05/21/17 04:52 05/21/17 07:56 Bedside Glucose 113 113 96 White Blood Count 8.0 Red Blood Count 3.09 L Hemoglobin 9.1 L Hematocrit 28.8 L Mean Corpuscular Volume 93.2 Mean Corpuscular Hemoglobin 29.4 Mean Corpuscular Hemoglobin Concent 31.6 L Red Cell Distribution Width 14.3 Platelet Count 490 H Mean Platelet Volume 7.8 Neutrophils % 56.6 Lymphocytes % 29.5 Monocytes % 10.0 Eosinophils % 3.0 Basophils % 0.6 Nucleated Red Blood Cells % 0.0 Neutrophils # 4.5 Lymphocytes # 2.4 Monocytes # 0.8 Eosinophils # 0.2 Basophils # 0.1 Nucleated Red Blood Cells # 0.0 Sodium Level 137 Potassium Level 4.5 Chloride Level 99 Carbon Dioxide Level 35 H Anion Gap 8 Blood Urea Nitrogen 14 Creatinine 0.42 L Glucose Level 109 Calcium Level 9.8 Test 05/21/17 12:52 Bedside Glucose 100 Medications Medications Current Medications Miscellaneous Information 1 ea NOTE XX ; Start 04/13/17 at 21:30 Glucose (Glutose) 15 gm Q15M PRN PO DECREASED GLUCOSE; Start 04/13/17 at 21:30 Glucose (Glutose) 22.5 gm Q15M PRN PO DECREASED GLUCOSE; Start 04/13/17 at 21: 30 Dextrose (D50w Syringe) 25 ml Q15M PRN IV DECREASED GLUCOSE; Start 04/13/17 at 21:30 Dextrose (D50w Syringe) 50 ml Q15M PRN IV DECREASED GLUCOSE; Start 04/13/17 at 21:30 Glucagon (Glucagen) 1 mg Q15M PRN IM DECREASED GLUCOSE; Start 04/13/17 at 21:30 Glucose (Glutose) 15 gm Q15M PRN BUCCAL DECREASED GLUCOSE; Start 04/13/17 at 21 :30 Guaifenesin/ Dextromethorphan (Robitussin Dm Liquid Cup) 5 ml Q4H PRN PO COUGH Last administered on 04/19/17 05:09; Admin Dose 5 ML; Start 04/15/17 at 16:30 Pantoprazole (Protonix Tab) 40 mg DAILY@06 PO Last administered on 05/21/17 05:15; Admin Dose 40 MG; Start 04/17/17 at 06:00 Acetaminophen (Tylenol Tab) 500 mg Q6H PRN PO PAIN AND OR ELEVATED TEMP Last administered on 05/06/17 03:25; Admin Dose 500 MG; Start 04/17/17 at 03:00 Magnesium Hydroxide 30 ml 30 ml DAILY PRN PO CONSTIPATION Last administered on 04/28/17 18:33; Admin Dose 30 ML; Start 04/17/17 at 11:30 Ampicillin Sodium/ Sulbactam Sodium (Unasyn 1.5gm/NS (Pmx)) 50 ml @ 100 mls/hr Q6 IVPB Last administered on 05/21/17 12:12; Admin Dose 100 MLS/HR; Start at 18:00 Fentanyl (Duragesic 12 Mcg/Hr Patch) 1 patch Q72H TRANSDERM Last administered on 05/19/17 06:33; Admin Dose 1 PATCH; Start 04/22/17 at 05:30 Enoxaparin Sodium (Lovenox) 30 mg DAILY SC Last administered on 05/21/17 08: 39; Admin Dose 30 MG; Start 04/23/17 at 20:30 Acetaminophen (Tylenol Tab) 650 mg Q6H PRN PO PAIN AND OR ELEVATED TEMP Last administered on 05/18/17 05:57; Admin Dose 650 MG; Start 04/23/17 at 20:30 Lactobacillus Acidophilus/ Rhamnosus (Culturelle) 1 cap BID PO Last administered on 05/21/17 08:33; Admin Dose 1 CAP; Start 04/24/17 at 11:30 Docusate Sodium (Colace) 100 mg BID PO Last administered on 05/21/17 08:35; Admin Dose 100 MG; Start 04/30/17 at 21:00 Furosemide (Lasix) 20 mg DAILY PO Last administered on 05/21/17 08:34; Admin Dose 20 MG; Start 05/19/17 at 09:00; Status Future Hold Metoprolol Tartrate (Lopressor) 12.5 mg BID PO ; Start 05/21/17 at 21:00 Potassium Chloride (Klor-Con 20) 20 meq QAM PO ; Start 05/22/17 at 09:00 NGOC GARZA MD May 21, 2017 17:35
--- NOTE | 2017-05-21 17:40 | PN ---
DATE: 05/21/2017 SUBJECTIVE: No overnight news. No complaint. No nausea, no vomiting. Has had bowel movement. To lerating a diet. OBJECTIVE GENERAL: Awake, alert and oriented x3. VITAL SIGNS: Temperature 97.5, heart rate 88, respirations 18, blood pressure 118/59, saturation 95 % on room air. HEART: Regular. LUNGS: Clear. Some decreased breathing sound on the right side. ABDOMEN: Soft, bowel sounds present. Wounds are clean. LABS: Sodium, potassium, BUN, creatinine within normal limits. Hematology: WBC 8000 with 56% segm ented. Hemoglobin 9.1, hematocrit 28.8, platelets 490. ASSESSMENT AND PLAN: A 66-year-old female who presented with sepsis, was found to have liver absces s, was started on antibiotics. As of 04/18/2017, antibiotic was changed to Unasyn plus Flagyl. Ibis er abscess was drained by placement of percutaneous pigtail drains. Most of it has been drained and has been shrunken, there is a little bit more left in the right upper lobe area. Pleural effusion was loculated and was taken care of by cardiothoracic surgeon by VATS and peeling and now the lung i s much better. The patient is not short of breath anymore. PLAN: To continue IV antibiotics for at least 6 weeks per infectious disease recommendations. We a re going to request the possibility of percutaneous drainage of remaining abscesses by radiologist. Dictated By: JOHN BURGOS MD PS/NTS Conf#: [id number] DID#: [id number]
[2017-05-21 19:45] VITALS: BP 112/60; RESP 18
--- NOTE | 2017-05-21 22:39 | PN ---
Date/Time of Note Date/Time of Note DATE: 05/21/17 TIME: 22:38 Assessment/Plan Lines/Catheters IV Catheter Type (from [facility]): Saline Lock Urinary Cath still in place: No Assessment/Plan Assessment/Plan Assessment/Plan - Bilateral pleural effusions right more than left, status post right thoracentesis 04/20. S/p right chest tube insertion on 04/[address] Jackson, vascular surgery. S/p right thoracentesis 04/26. S/P Right VATS decortication on 05/07. CT removed 05/12. - Acute respiratory failure secondary to #1, resolving. Dr. Damico is following in pulmonology consultation continue oxygen oxygen supplementation - Severe sepsis 2/2 to liver abscess, resolving. Continue antibiotics per ID. is following in infection disease consultation - Liver abscess, s/p CT guided drainage 04/15/2017, s/p CT guided percutaneous drainage of liver abscess 04/23, status post CT-guided liver abscess drainage . Drains d/cyn now. - Normocytic anemia requiring blood transfusion - Hx of rectal CA s/p Low anterior resection 08/29/2016 Further recommendations based on clinical course. Plan of care discussed with Dr. Dior Exam/Review of Systems Vital Signs Vitals Vital Signs Date Time Temp Pulse Resp B/P Pulse Ox O2 Delivery O2 Flow Rate FiO2 05/21/17 19:45 98.8 86 18 112/60 96 05/21/17 16:26 1.0 05/20/17 08:00 Nasal Cannula 05/18/17 02:11 27 Intake and Output 05/20/17 05/20/17 05/21/17 15:00 23:00 07:00 Intake Total 50 ml 887 ml 700 ml Output Total 600 ml Balance 50 ml 287 ml 700 ml Results Result Diagram: 05/21/17 0452 05/21/17 0452 Results 24 hrs Laboratory Tests Test 05/21/17 04:52 05/21/17 07:56 05/21/17 12:52 05/21/17 17:51 White Blood Count 8.0 Red Blood Count 3.09 L Hemoglobin 9.1 L Hematocrit 28.8 L Mean Corpuscular Volume 93.2 Mean Corpuscular Hemoglobin 29.4 Mean Corpuscular Hemoglobin Concent 31.6 L Red Cell Distribution Width 14.3 Platelet Count 490 H Mean Platelet Volume 7.8 Neutrophils % 56.6 Lymphocytes % 29.5 Monocytes % 10.0 Eosinophils % 3.0 Basophils % 0.6 Nucleated Red Blood Cells % 0.0 Neutrophils # 4.5 Lymphocytes # 2.4 Monocytes # 0.8 Eosinophils # 0.2 Basophils # 0.1 Nucleated Red Blood Cells # 0.0 Sodium Level 137 Potassium Level 4.5 Chloride Level 99 Carbon Dioxide Level 35 H Anion Gap 8 Blood Urea Nitrogen 14 Creatinine 0.42 L Glucose Level 109 Calcium Level 9.8 Bedside Glucose 96 100 96 Medications Medications Current Medications Miscellaneous Information 1 ea NOTE XX ; Start 04/13/17 at 21:30 Glucose (Glutose) 15 gm Q15M PRN PO DECREASED GLUCOSE; Start 04/13/17 at 21:30 Glucose (Glutose) 22.5 gm Q15M PRN PO DECREASED GLUCOSE; Start 04/13/17 at 21: 30 Dextrose (D50w Syringe) 25 ml Q15M PRN IV DECREASED GLUCOSE; Start 04/13/17 at 21:30 Dextrose (D50w Syringe) 50 ml Q15M PRN IV DECREASED GLUCOSE; Start 04/13/17 at 21:30 Glucagon (Glucagen) 1 mg Q15M PRN IM DECREASED GLUCOSE; Start 04/13/17 at 21:30 Glucose (Glutose) 15 gm Q15M PRN BUCCAL DECREASED GLUCOSE; Start 04/13/17 at 21 :30 Guaifenesin/ Dextromethorphan (Robitussin Dm Liquid Cup) 5 ml Q4H PRN PO COUGH Last administered on 04/19/17 05:09; Admin Dose 5 ML; Start 04/15/17 at 16:30 Pantoprazole (Protonix Tab) 40 mg DAILY@06 PO Last administered on 05/21/17 05:15; Admin Dose 40 MG; Start 04/17/17 at 06:00 Acetaminophen (Tylenol Tab) 500 mg Q6H PRN PO PAIN AND OR ELEVATED TEMP Last administered on 05/06/17 03:25; Admin Dose 500 MG; Start 04/17/17 at 03:00 Magnesium Hydroxide 30 ml 30 ml DAILY PRN PO CONSTIPATION Last administered on 04/28/17 18:33; Admin Dose 30 ML; Start 04/17/17 at 11:30 Ampicillin Sodium/ Sulbactam Sodium (Unasyn 1.5gm/NS (Pmx)) 50 ml @ 100 mls/hr Q6 IVPB Last administered on 05/21/17 18:07; Admin Dose 100 MLS/HR; Start at 18:00 Fentanyl (Duragesic 12 Mcg/Hr Patch) 1 patch Q72H TRANSDERM Last administered on 05/19/17 06:33; Admin Dose 1 PATCH; Start 04/22/17 at 05:30 Enoxaparin Sodium (Lovenox) 30 mg DAILY SC Last administered on 05/21/17 08: 39; Admin Dose 30 MG; Start 04/23/17 at 20:30 Acetaminophen (Tylenol Tab) 650 mg Q6H PRN PO PAIN AND OR ELEVATED TEMP Last administered on 05/18/17 05:57; Admin Dose 650 MG; Start 04/23/17 at 20:30 Lactobacillus Acidophilus/ Rhamnosus (Culturelle) 1 cap BID PO Last administered on 05/21/17 21:09; Admin Dose 1 CAP; Start 04/24/17 at 11:30 Docusate Sodium (Colace) 100 mg BID PO Last administered on 05/21/17 21:09; Admin Dose 100 MG; Start 04/30/17 at 21:00 Furosemide (Lasix) 20 mg DAILY PO Last administered on 05/21/17 08:34; Admin Dose 20 MG; Start 05/19/17 at 09:00; Status Future Hold Metoprolol Tartrate (Lopressor) 12.5 mg BID PO Last administered on 05/21/17 21:10; Admin Dose 12.5 MG; Start 05/21/17 at 21:00 Potassium Chloride (Klor-Con 20) 20 meq QAM PO ; Start 05/22/17 at 09:00 MESHA VELASQUEZ May 21, 2017 22:39
[2017-05-22] MEDS: PANTOPRAZOLE (EC) 40 MG TAB PO SCH (06:44)
[2017-05-22] MEDS: AMPICILLIN/SULB 1.5GM/NS (PMX) 50 ML IVPB SCH ×3 (06:44→17:59)
[2017-05-22] MEDS: FENTAnyl PATCH 12 MCG/HR TRANSDERM SCH (07:08)
[2017-05-22 08:05] VITALS: BP 107/56; RESP 19
[2017-05-22] MEDS: METOPROLOL 25 MG TAB PO SCH ×2 (08:35→20:47)
[2017-05-22] MEDS: ENOXAPARIN 30 MG/0.3 ML SYG SC SCH (08:59)
[2017-05-22] MEDS: LACTOBACILLUS RHAMNOSUS CAP PO SCH ×2 (08:59→20:46)
[2017-05-22] MEDS ORDERED: POTASSIUM CHLORIDE (SR) 20 MEQ TAB PO SCH (09:00)
[2017-05-22] MEDS: DOCUSATE SODIUM 100 MG CAP PO SCH ×2 (09:00→20:46)
--- NOTE | 2017-05-22 11:24 | CONS ---
Date/Time of Note Date/Time of Note DATE: 05/22/17 TIME: 11:22 Assessment/Plan Assessment/Plan Chief Complaint/Hosp Course - severe sepsis due to pyogenic liver abscess, loculated pleural effusion s/p R thoracotomy, thoracoscopy, total pulmonary decortication on 05/07/2017. Path showed fibrin, necrotic tissue and abscess, no evidence of malignancy. improving - multiloculated pyogenic liver abscess s/p CT guided drainage catheter placement 04/15/2017, 04/23/2017, s/p repeat drainage 04/27/2017; cultures from gamma hemolytic strep, cultures from 04/23/2017 alpha hemolytic strep. F/ u CT on 05/16/2017 showed persistent but smaller multiloculated fluid collection. The drainage catheter was removed on 05/19/2017. improving - loculated pleural effusion likely secondary to hepatic process/hepatic hydrothorax, R>L, s/p R thoracentesis on 04/20/2017, s/p chest tube placement on 04/22/2017. It was removed. - intermittent diarrhea, resolved - normocytic anemia requiring blood transfusion - coagulopathy, improved - transaminitis, improved - s/p CoNS in urine culture with trivial pyuria, likely contaminant - h/o rectal CA s/p Low anterior resection 08/29/2016 - severe protein calorie malnutrition - allergy to vancomycin - probable neuropathic pain of R chest wall post surgery, improving recommendations: - continue IV amp/sulbactam (04/18/2017-); s/p linezolid and pip/tazo (04/13-2016). monitor at least weekly CBC and BMP while Pt's on antibiotic - we recommend long-term (6 weeks at least, 05/30/2017) IV amp/sulbactam and repeat CT; if it shows residual infection, I recommend PO antibiotic (e.g. Augmentin) until all lesions resolve management d/w Pt Problems: Consultation Date/Type/Reason Admit Date/Time Apr 13, 2017 at 19:51 Initial Consult Date 04/21/17 Type of Consultation: ID Referring Provider: DARREL BURT MD 24 HR Interval Summary Constitutional: no complaints Detailed Summary Eyes: no complaints ENT: no complaints Respiratory: no complaints Cardiovascular: no complaints Gastrointestinal: no complaints Genitourinary: no complaints Musculoskeletal: no complaints Skin: no complaints Neurologic: no complaints Exam/Review of Systems Vital Signs Vitals Vital Signs Date Time Temp Pulse Resp B/P Pulse Ox O2 Delivery O2 Flow Rate FiO2 05/22/17 08:05 98.0 63 19 107/56 98 05/22/17 06:45 1.0 05/20/17 08:00 Nasal Cannula Intake and Output 05/21/17 05/21/17 05/22/17 15:00 23:00 07:00 Intake Total 50 ml 770 ml 350 ml Balance 50 ml 770 ml 350 ml Exam Constitutional: alert, oriented, well developed Psych: nl mood/affect, no complaints Head: atraumatic, normocephalic Eyes: nl conjunctiva, nl lids, nl sclera ENMT: mucosa pink and moist, nl external ears & nose, nl nasal mucosa & septum Neck: supple Respiratory: diminished breath sounds, other (chest tube site is dressed) Cardiovascular: nl pulses, regular rate and rhythm Gastrointestinal: non-tender, other (external drainage site is dressed), soft, No distended Musculoskeletal: nl extremities to inspection Extremities: normal pulses, No edema 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: WAREHOUSE TEAM MEMBER II-XII intact, 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, nl speech, nl strength Skin: nl turgor Lymph: nl lymph nodes Results Result Diagram: 05/21/1745105/21/17 045 Results 24 hrs Laboratory Tests Test 05/21/17 12:52 05/21/17 17:51 Bedside Glucose 100 96 Medications Medications Current Medications Miscellaneous Information 1 ea NOTE XX ; Start 04/13/17 at 21:30 Glucose (Glutose) 15 gm Q15M PRN PO DECREASED GLUCOSE; Start 04/13/17 at 21:30 Glucose (Glutose) 22.5 gm Q15M PRN PO DECREASED GLUCOSE; Start 04/13/17 at 21: 30 Dextrose (D50w Syringe) 25 ml Q15M PRN IV DECREASED GLUCOSE; Start 04/13/17 at 21:30 Dextrose (D50w Syringe) 50 ml Q15M PRN IV DECREASED GLUCOSE; Start 04/13/17 at 21:30 Glucagon (Glucagen) 1 mg Q15M PRN IM DECREASED GLUCOSE; Start 04/13/17 at 21:30 Glucose (Glutose) 15 gm Q15M PRN BUCCAL DECREASED GLUCOSE; Start 04/13/17 at 21 :30 Guaifenesin/ Dextromethorphan (Robitussin Dm Liquid Cup) 5 ml Q4H PRN PO COUGH Last administered on 04/19/17 05:09; Admin Dose 5 ML; Start 04/15/17 at 16:30 Pantoprazole (Protonix Tab) 40 mg DAILY@06 PO Last administered on 05/22/17 06:44; Admin Dose 40 MG; Start 04/17/17 at 06:00 Acetaminophen (Tylenol Tab) 500 mg Q6H PRN PO PAIN AND OR ELEVATED TEMP Last administered on 05/06/17 03:25; Admin Dose 500 MG; Start 04/17/17 at 03:00 Magnesium Hydroxide 30 ml 30 ml DAILY PRN PO CONSTIPATION Last administered on 04/28/17 18:33; Admin Dose 30 ML; Start 04/17/17 at 11:30 Ampicillin Sodium/ Sulbactam Sodium (Unasyn 1.5gm/NS (Pmx)) 50 ml @ 100 mls/hr Q6 IVPB Last administered on 05/22/17 06:44; Admin Dose 100 MLS/HR; Start at 18:00 Fentanyl (Duragesic 12 Mcg/Hr Patch) 1 patch Q72H TRANSDERM Last administered on 05/22/17 07:08; Admin Dose 1 PATCH; Start 04/22/17 at 05:30 Enoxaparin Sodium (Lovenox) 30 mg DAILY SC Last administered on 05/22/17 08: 59; Admin Dose 30 MG; Start 04/23/17 at 20:30 Acetaminophen (Tylenol Tab) 650 mg Q6H PRN PO PAIN AND OR ELEVATED TEMP Last administered on 05/18/17 05:57; Admin Dose 650 MG; Start 04/23/17 at 20:30 Lactobacillus Acidophilus/ Rhamnosus (Culturelle) 1 cap BID PO Last administered on 05/22/17 08:59; Admin Dose 1 CAP; Start 04/24/17 at 11:30 Docusate Sodium (Colace) 100 mg BID PO Last administered on 05/22/17 09:00; Admin Dose 100 MG; Start 04/30/17 at 21:00 Furosemide (Lasix) 20 mg DAILY PO Last administered on 05/21/17 08:34; Admin Dose 20 MG; Start 05/19/17 at 09:00; Status Future Hold Metoprolol Tartrate (Lopressor) 12.5 mg BID PO Last administered on 05/21/17 21:10; Admin Dose 12.5 MG; Start 05/21/17 at 21:00 Potassium Chloride (Klor-Con 20) 20 meq QAM PO Last administered on 05/22/17 09:00; Admin Dose 20 MEQ; Start 05/22/17 at 09:00 AARON ANSARI M.D. May 22, 2017 11:24
--- NOTE | 2017-05-22 12:20 | CONS ---
Date/Time of Note Date/Time of Note DATE: 05/22/17 TIME: 12:17 Assessment/Plan Assessment/Plan Additional Assessment/Plan Assessment and recommendations; 1. Patient admitted with hepatic abscess then developed pneumonia involving the right lower lobe requiring VATS procedure. 2. Patient developed right upper lobe atelectasis of the rectus, with marked clinical and radiological improvement now. Continue current supportive care. Patient can be discharged from pulmonary perspective. Consultation Date/Type/Reason Admit Date/Time Apr 13, 2017 at 19:51 Initial Consult Date 04/15/17 Type of Consultation: Pulmonary Referring Provider: DARREL BURT MD 24 HR Interval Summary Free Text/Dictation Patient's condition is stable. Denies any shortness of breath, chest pain coughing or wheezing. Denies any abdominal pain. General exam; elderly woman, awake alert, currently in no distress. Exam/Review of Systems Vital Signs Vitals Vital Signs Date Time Temp Pulse Resp B/P Pulse Ox O2 Delivery O2 Flow Rate FiO2 05/22/17 08:05 98.0 63 19 107/56 98 05/22/17 06:45 1.0 05/20/17 08:00 Nasal Cannula Intake and Output 05/21/17 05/21/17 05/22/17 15:00 23:00 07:00 Intake Total 50 ml 770 ml 350 ml Balance 50 ml 770 ml 350 ml Exam HEENT exam; supple neck, no JVD. No lymphadenopathy. Midline trachea. No thyromegaly. Patient has multiple carious teeth. Chest exam; clear to auscultation. S1-S2 audible, no murmurs. Regular rhythm. Abdomen exam; soft, nontender. No organomegaly. Epigastric drain in place. Right upper quadrant scar in place. The betty applied. Extremity exam; no peripheral edema. 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 Results Result Diagram: 05/21/17 0452 05/21/17 0452 Results 24 hrs Laboratory Tests Test 05/21/17 12:52 05/21/17 17:51 Bedside Glucose 100 96 Medications Medications Current Medications Miscellaneous Information 1 ea NOTE XX ; Start 04/13/17 at 21:30 Glucose (Glutose) 15 gm Q15M PRN PO DECREASED GLUCOSE; Start 04/13/17 at 21:30 Glucose (Glutose) 22.5 gm Q15M PRN PO DECREASED GLUCOSE; Start 04/13/17 at 21: 30 Dextrose (D50w Syringe) 25 ml Q15M PRN IV DECREASED GLUCOSE; Start 04/13/17 at 21:30 Dextrose (D50w Syringe) 50 ml Q15M PRN IV DECREASED GLUCOSE; Start 04/13/17 at 21:30 Glucagon (Glucagen) 1 mg Q15M PRN IM DECREASED GLUCOSE; Start 04/13/17 at 21:30 Glucose (Glutose) 15 gm Q15M PRN BUCCAL DECREASED GLUCOSE; Start 04/13/17 at 21 :30 Guaifenesin/ Dextromethorphan (Robitussin Dm Liquid Cup) 5 ml Q4H PRN PO COUGH Last administered on 04/19/17 05:09; Admin Dose 5 ML; Start 04/15/17 at 16:30 Pantoprazole (Protonix Tab) 40 mg DAILY@06 PO Last administered on 05/22/17 06:44; Admin Dose 40 MG; Start 04/17/17 at 06:00 Acetaminophen (Tylenol Tab) 500 mg Q6H PRN PO PAIN AND OR ELEVATED TEMP Last administered on 05/06/17 03:25; Admin Dose 500 MG; Start 04/17/17 at 03:00 Magnesium Hydroxide 30 ml 30 ml DAILY PRN PO CONSTIPATION Last administered on 04/28/17 18:33; Admin Dose 30 ML; Start 04/17/17 at 11:30 Ampicillin Sodium/ Sulbactam Sodium (Unasyn 1.5gm/NS (Pmx)) 50 ml @ 100 mls/hr Q6 IVPB Last administered on 05/22/17 06:44; Admin Dose 100 MLS/HR; Start at 18:00 Fentanyl (Duragesic 12 Mcg/Hr Patch) 1 patch Q72H TRANSDERM Last administered on 05/22/17 07:08; Admin Dose 1 PATCH; Start 04/22/17 at 05:30 Enoxaparin Sodium (Lovenox) 30 mg DAILY SC Last administered on 05/22/17 08: 59; Admin Dose 30 MG; Start 04/23/17 at 20:30 Acetaminophen (Tylenol Tab) 650 mg Q6H PRN PO PAIN AND OR ELEVATED TEMP Last administered on 05/18/17 05:57; Admin Dose 650 MG; Start 04/23/17 at 20:30 Lactobacillus Acidophilus/ Rhamnosus (Culturelle) 1 cap BID PO Last administered on 05/22/17 08:59; Admin Dose 1 CAP; Start 04/24/17 at 11:30 Docusate Sodium (Colace) 100 mg BID PO Last administered on 05/22/17 09:00; Admin Dose 100 MG; Start 04/30/17 at 21:00 Furosemide (Lasix) 20 mg DAILY PO Last administered on 05/21/17 08:34; Admin Dose 20 MG; Start 05/19/17 at 09:00; Status Future Hold Metoprolol Tartrate (Lopressor) 12.5 mg BID PO Last administered on 05/21/17 21:10; Admin Dose 12.5 MG; Start 05/21/17 at 21:00 Potassium Chloride (Klor-Con 20) 20 meq QAM PO Last administered on 05/22/17 09:00; Admin Dose 20 MEQ; Start 05/22/17 at 09:00 LINDA GARCIA May 22, 2017 12:20
--- NOTE | 2017-05-22 12:35 | PN ---
DATE: 05/22/2017 SUBJECTIVE: No specific complaint. No nausea, no vomiting. Had a bowel movement, tolerating diet. No fever. OBJECTIVE: GENERAL: Awake, alert, oriented x3. VITAL SIGNS: Temperature 98, heart rate 63 regular, respirations 19, blood pressure 107/56, saturation 98% on room air. LABORATORY DATA: No labs were done today. Yesterday WBC 8000, hemoglobin 9, hematocrit 28.8. Chemistry yesterday. BUN and creatinine are normal. Sodium and potassium normal. PHYSICAL EXAMINATION: HEART: Regular. LUNGS: Decreased breathing sound on the right side. ABDOMEN: Soft. Dressing was removed . The wounds are clean. ASSESSMENT: A 66-year-old female who presented with sepsis and liver abscess multiloculated multilobulated and was treated percutaneously by percutaneous drainage via the pigtail drains. Three attempts at different timing was done. The central part was completely shrunken. It received some foci of abscess or fluid collection in the right lobe peripherally that the radiologist believed they cannot drain it percutaneously. Since the patient is afebrile leukocyte count is normal, appetite is good and does not have any complaint, Dr. Martin decided not to proceed with laparotomy, but continued to treating that with antibiotic IV per infectious disease recommendation. The patient is on Unasyn now and she has been getting Unasyn for 5 weeks now, probably she would require to get at least 1 more week of IV. Patient is going to be transferred to [facility] today. Continue antibiotic over there and then switch to p.o. antibiotics per recommendation of infectious disease. I will try to follow the patient in the [facility] and maybe in 1 week or 2 weeks from now will repeat the CT scan of the abdomen for followup of the liver abscess. From medical point of view, the cross cut sawyer and thoracic surgeon will follow. Dictated By: JOHN JUSTIN/KT Conf#: [id number] DID#: [id number] SANJAY
--- NOTE | 2017-05-22 13:48 | CONS ---
Date/Time of Note Date/Time of Note DATE: 05/22/17 TIME: 13:47 Assessment/Plan Assessment/Plan Chief Complaint/Hosp Course IMP: 1.Hypertension- on low side today. ? overdiuresis 2.abnl ecg-negative trop x 3/NL EF by echo. NO CP 3.Liver abscess s/p CT guided drainage 4.H/O lung ca s/p resection with lung nodules by CT? 5.Lung nodules 6. Hyponatremia-improved 7. Effusion s/p VATS/decortication Recc: -tele -s/p VATS/decortication -Continue abx's -F/U cx data -Continue BB as tolerated -pain control -Continue to Hold lasix PO and follow volume status/BP closely Problems: Consultation Date/Type/Reason Admit Date/Time Apr 13, 2017 at 19:51 Initial Consult Date 04/13/17 Type of Consultation: cardiology Reason for Consultation Chest pain Referring Provider: DARREL BURT MD Exam/Review of Systems Vital Signs Vitals Vital Signs Date Time Temp Pulse Resp B/P Pulse Ox O2 Delivery O2 Flow Rate FiO2 05/22/17 08:05 98.0 63 19 107/56 98 05/22/17 06:45 1.0 05/20/17 08:00 Nasal Cannula Intake and Output 05/21/17 05/21/17 05/22/17 15:00 23:00 07:00 Intake Total 50 ml 770 ml 350 ml Balance 50 ml 770 ml 350 ml Exam Review of Systems: CONSTITUTIONAL: No fevers, chills. PULMONARY: No sob CARDIOVASCULAR: No chest pain/palpitations GASTROINTESTINAL: No nausea/vomiting. GENITOURINARY: No hematuria/dysuria. MUSCULOSKELETAL: No myagias/arthalgias. PSYCHIATRIC: The patient denies depression. NEUROLOGIC: No weakness Constitutional: alert, oriented Psych: no complaints Head: normocephalic ENMT: mucosa pink and moist Neck: jvd (8-9 cm water), supple Respiratory: clear to auscultation Cardiovascular: regular rate and rhythm Gastrointestinal: non-tender, soft Musculoskeletal: muscle tone (normal) Extremities: edema (none) 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: other (No focal deficits) Results Result Diagram: 05/21/17 0452 05/21/17 0452 Results 24 hrs Laboratory Tests Test 05/21/17 17:51 Bedside Glucose 96 Medications Medications Current Medications Miscellaneous Information 1 ea NOTE XX ; Start 04/13/17 at 21:30 Glucose (Glutose) 15 gm Q15M PRN PO DECREASED GLUCOSE; Start 04/13/17 at 21:30 Glucose (Glutose) 22.5 gm Q15M PRN PO DECREASED GLUCOSE; Start 04/13/17 at 21: 30 Dextrose (D50w Syringe) 25 ml Q15M PRN IV DECREASED GLUCOSE; Start 04/13/17 at 21:30 Dextrose (D50w Syringe) 50 ml Q15M PRN IV DECREASED GLUCOSE; Start 04/13/17 at 21:30 Glucagon (Glucagen) 1 mg Q15M PRN IM DECREASED GLUCOSE; Start 04/13/17 at 21:30 Glucose (Glutose) 15 gm Q15M PRN BUCCAL DECREASED GLUCOSE; Start 04/13/17 at 21 :30 Guaifenesin/ Dextromethorphan (Robitussin Dm Liquid Cup) 5 ml Q4H PRN PO COUGH Last administered on 04/19/17 05:09; Admin Dose 5 ML; Start 04/15/17 at 16:30 Pantoprazole (Protonix Tab) 40 mg DAILY@06 PO Last administered on 05/22/17 06:44; Admin Dose 40 MG; Start 04/17/17 at 06:00 Acetaminophen (Tylenol Tab) 500 mg Q6H PRN PO PAIN AND OR ELEVATED TEMP Last administered on 05/06/17 03:25; Admin Dose 500 MG; Start 04/17/17 at 03:00 Magnesium Hydroxide 30 ml 30 ml DAILY PRN PO CONSTIPATION Last administered on 04/28/17 18:33; Admin Dose 30 ML; Start 04/17/17 at 11:30 Ampicillin Sodium/ Sulbactam Sodium (Unasyn 1.5gm/NS (Pmx)) 50 ml @ 100 mls/hr Q6 IVPB Last administered on 05/22/17 12:38; Admin Dose 100 MLS/HR; Start at 18:00 Fentanyl (Duragesic 12 Mcg/Hr Patch) 1 patch Q72H TRANSDERM Last administered on 05/22/17 07:08; Admin Dose 1 PATCH; Start 04/22/17 at 05:30 Enoxaparin Sodium (Lovenox) 30 mg DAILY SC Last administered on 05/22/17 08: 59; Admin Dose 30 MG; Start 04/23/17 at 20:30 Acetaminophen (Tylenol Tab) 650 mg Q6H PRN PO PAIN AND OR ELEVATED TEMP Last administered on 05/18/17 05:57; Admin Dose 650 MG; Start 04/23/17 at 20:30 Lactobacillus Acidophilus/ Rhamnosus (Culturelle) 1 cap BID PO Last administered on 05/22/17 08:59; Admin Dose 1 CAP; Start 04/24/17 at 11:30 Docusate Sodium (Colace) 100 mg BID PO Last administered on 05/22/17 09:00; Admin Dose 100 MG; Start 04/30/17 at 21:00 Furosemide (Lasix) 20 mg DAILY PO Last administered on 05/21/17 08:34; Admin Dose 20 MG; Start 05/19/17 at 09:00; Status Future Hold Metoprolol Tartrate (Lopressor) 12.5 mg BID PO Last administered on 05/21/17 21:10; Admin Dose 12.5 MG; Start 05/21/17 at 21:00 Potassium Chloride (Klor-Con 20) 20 meq QAM PO Last administered on 05/22/17 09:00; Admin Dose 20 MEQ; Start 05/22/17 at 09:00 LILIANA BARKSDALE May 22, 2017 13:48
[2017-05-22 14:00] VITALS: BP 120/1; RESP 19
--- NOTE | 2017-05-22 18:21 | CONS ---
Date/Time of Note Date/Time of Note DATE: 05/22/17 TIME: 18:20 Assessment/Plan Assessment/Plan Chief Complaint/Hosp Course Problems: Additional Assessment/Plan 1. Bilateral pleural effusions right more than left, status post right thoracentesis 04/20. S/p right chest tube insertion on 04/[address] Jackson, vascular surgery. S/p right thoracentesis 04/26. - s/p Right VATS decortication 05/07/2017 2. Acute hyponatremia 2/2 Hypovolemic hyponatremia - Resolved 2. sepsis due to liver abscess 3. Hepatic abscess oN CT scan s/p CT guided drainage on 04/15/17 and 04/23/17 4. Acute transaminitis 5. h/o Colon CA s/p previous Surgery 6. Hypokalemia 7. acute resp failiue due to # 1 8. hypomagnesemia Plan : S/p Right VATS decortication, chest tube discontinued , CXR showed complete opacificatin of rigth lung - pt stable respiration, starution ok with 2 L NC , pulmonary has been following lasix 20mg pO BID with KCL replacement ,No labs today to review yet IV abx as per ID, renally dose all abx abdominal drain has been removed by G surg, will monitor it will follow up Consultation Date/Type/Reason Admit Date/Time Apr 13, 2017 at 19:51 Initial Consult Date 04/13/17 Type of Consultation: NEPHROLOG y Referring Provider: DARREL BURT MD Exam/Review of Systems Vital Signs Vitals Vital Signs Date Time Temp Pulse Resp B/P Pulse Ox O2 Delivery O2 Flow Rate FiO2 05/22/17 14:00 1.0 05/22/17 14:00 98.0 71 19 120/1 98 05/20/17 08:00 Nasal Cannula Intake and Output 05/21/17 05/21/17 05/22/17 15:00 23:00 07:00 Intake Total 50 ml 770 ml 350 ml Balance 50 ml 770 ml 350 ml Exam Constitutional: alert, frail, oriented Respiratory: diminished breath sounds,, RML and RLL rales Cardiovascular: nl pulses, regular rate and rhythm Musculoskeletal: nl extremities to inspection Extremities: No edema 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: ADMISSIONS ASSISTANT II-XII intact, 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 ABD: soft, NT, Results Result Diagram: 05/21/1745105/21/17451 Medications Medications Current Medications Miscellaneous Information 1 ea NOTE XX ; Start 04/13/17 at 21:30 Glucose (Glutose) 15 gm Q15M PRN PO DECREASED GLUCOSE; Start 04/13/17 at 21:30 Glucose (Glutose) 22.5 gm Q15M PRN PO DECREASED GLUCOSE; Start 04/13/17 at 21: 30 Dextrose (D50w Syringe) 25 ml Q15M PRN IV DECREASED GLUCOSE; Start 04/13/17 at 21:30 Dextrose (D50w Syringe) 50 ml Q15M PRN IV DECREASED GLUCOSE; Start 04/13/17 at 21:30 Glucagon (Glucagen) 1 mg Q15M PRN IM DECREASED GLUCOSE; Start 04/13/17 at 21:30 Glucose (Glutose) 15 gm Q15M PRN BUCCAL DECREASED GLUCOSE; Start 04/13/17 at 21 :30 Guaifenesin/ Dextromethorphan (Robitussin Dm Liquid Cup) 5 ml Q4H PRN PO COUGH Last administered on 04/19/17 05:09; Admin Dose 5 ML; Start 04/15/17 at 16:30 Pantoprazole (Protonix Tab) 40 mg DAILY@06 PO Last administered on 05/22/17 06:44; Admin Dose 40 MG; Start 04/17/17 at 06:00 Acetaminophen (Tylenol Tab) 500 mg Q6H PRN PO PAIN AND OR ELEVATED TEMP Last administered on 05/06/17 03:25; Admin Dose 500 MG; Start 04/17/17 at 03:00 Magnesium Hydroxide 30 ml 30 ml DAILY PRN PO CONSTIPATION Last administered on 04/28/17 18:33; Admin Dose 30 ML; Start 04/17/17 at 11:30 Ampicillin Sodium/ Sulbactam Sodium (Unasyn 1.5gm/NS (Pmx)) 50 ml @ 100 mls/hr Q6 IVPB Last administered on 05/22/17 17:59; Admin Dose 100 MLS/HR; Start at 18:00 Fentanyl (Duragesic 12 Mcg/Hr Patch) 1 patch Q72H TRANSDERM Last administered on 05/22/17 07:08; Admin Dose 1 PATCH; Start 04/22/17 at 05:30 Enoxaparin Sodium (Lovenox) 30 mg DAILY SC Last administered on 05/22/17 08: 59; Admin Dose 30 MG; Start 04/23/17 at 20:30 Acetaminophen (Tylenol Tab) 650 mg Q6H PRN PO PAIN AND OR ELEVATED TEMP Last administered on 05/18/17 05:57; Admin Dose 650 MG; Start 04/23/17 at 20:30 Lactobacillus Acidophilus/ Rhamnosus (Culturelle) 1 cap BID PO Last administered on 05/22/17 08:59; Admin Dose 1 CAP; Start 04/24/17 at 11:30 Docusate Sodium (Colace) 100 mg BID PO Last administered on 05/22/17 09:00; Admin Dose 100 MG; Start 04/30/17 at 21:00 Furosemide (Lasix) 20 mg DAILY PO Last administered on 05/21/17 08:34; Admin Dose 20 MG; Start 05/19/17 at 09:00; Status Future Hold Metoprolol Tartrate (Lopressor) 12.5 mg BID PO Last administered on 05/21/17 21:10; Admin Dose 12.5 MG; Start 05/21/17 at 21:00 Potassium Chloride (Klor-Con 20) 20 meq QAM PO Last administered on 05/22/17 09:00; Admin Dose 20 MEQ; Start 05/22/17 at 09:00 NGOC GARZA MD May 22, 2017 18:21
--- NOTE | 2017-05-22 20:09 | PN ---
Date/Time of Note Date/Time of Note DATE: 05/22/17 TIME: 20:06 Assessment/Plan VTE Prophylaxis VTE Prophylaxis Intervention: SCD's Lines/Catheters IV [facility] Peripheral IV Urinary Cath still in place: No Assessment/Plan Chief Complaint/Hosp Course Pt remains stable, d/c planning. Assessment/Plan - Bilateral pleural effusions right more than left, status post right thoracentesis 04/20. S/p right chest tube insertion on 04/[address] Jackson, vascular surgery. S/p right thoracentesis 04/26. S/P Right VATS decortication on 05/07. CT removed 05/12. - Acute respiratory failure secondary to #1, resolving. Dr. Damico is following in pulmonology consultation continue oxygen oxygen supplementation - Severe sepsis 2/2 to liver abscess, resolving. Continue antibiotics per ID. is following in infection disease consultation - Liver abscess, s/p CT guided drainage 04/15/2017, s/p CT guided percutaneous drainage of liver abscess 04/23, status post CT-guided liver abscess drainage . Drains d/cyn now. Continue Unasyn for until May [address] of the abdomen and pelvis in 1-2 weeks. - Normocytic anemia requiring blood transfusion. - Hx of rectal CA s/p Low anterior resection 08/29/2016 Further recommendations based on clinical course. Plan of care discussed with Dr. Dior Problems: Exam/Review of Systems Vital Signs Vitals Vital Signs Date Time Temp Pulse Resp B/P Pulse Ox O2 Delivery O2 Flow Rate FiO2 05/22/17 14:00 1.0 05/22/17 14:00 98.0 71 19 120/1 98 05/20/17 08:00 Nasal Cannula Intake and Output 05/21/17 05/21/17 05/22/17 15:00 23:00 07:00 Intake Total 50 ml 770 ml 350 ml Balance 50 ml 770 ml 350 ml Exam Constitutional: alert, oriented Neck: supple Respiratory: normal air movement Cardiovascular: nl pulses Gastrointestinal: non-tender, soft Extremities: normal pulses Results Result Diagram: 05/21/17 0452 05/21/17 045 Medications Medications Current Medications Miscellaneous Information 1 ea NOTE XX ; Start 04/13/17 at 21:30 Glucose (Glutose) 15 gm Q15M PRN PO DECREASED GLUCOSE; Start 04/13/17 at 21:30 Glucose (Glutose) 22.5 gm Q15M PRN PO DECREASED GLUCOSE; Start 04/13/17 at 21: 30 Dextrose (D50w Syringe) 25 ml Q15M PRN IV DECREASED GLUCOSE; Start 04/13/17 at 21:30 Dextrose (D50w Syringe) 50 ml Q15M PRN IV DECREASED GLUCOSE; Start 04/13/17 at 21:30 Glucagon (Glucagen) 1 mg Q15M PRN IM DECREASED GLUCOSE; Start 04/13/17 at 21:30 Glucose (Glutose) 15 gm Q15M PRN BUCCAL DECREASED GLUCOSE; Start 04/13/17 at 21 :30 Guaifenesin/ Dextromethorphan (Robitussin Dm Liquid Cup) 5 ml Q4H PRN PO COUGH Last administered on 04/19/17 05:09; Admin Dose 5 ML; Start 04/15/17 at 16:30 Pantoprazole (Protonix Tab) 40 mg DAILY@06 PO Last administered on 05/22/17 06:44; Admin Dose 40 MG; Start 04/17/17 at 06:00 Acetaminophen (Tylenol Tab) 500 mg Q6H PRN PO PAIN AND OR ELEVATED TEMP Last administered on 05/06/17 03:25; Admin Dose 500 MG; Start 04/17/17 at 03:00 Magnesium Hydroxide 30 ml 30 ml DAILY PRN PO CONSTIPATION Last administered on 04/28/17 18:33; Admin Dose 30 ML; Start 04/17/17 at 11:30 Ampicillin Sodium/ Sulbactam Sodium (Unasyn 1.5gm/NS (Pmx)) 50 ml @ 100 mls/hr Q6 IVPB Last administered on 05/22/17 17:59; Admin Dose 100 MLS/HR; Start at 18:00 Fentanyl (Duragesic 12 Mcg/Hr Patch) 1 patch Q72H TRANSDERM Last administered on 05/22/17 07:08; Admin Dose 1 PATCH; Start 04/22/17 at 05:30 Enoxaparin Sodium (Lovenox) 30 mg DAILY SC Last administered on 05/22/17 08: 59; Admin Dose 30 MG; Start 04/23/17 at 20:30 Acetaminophen (Tylenol Tab) 650 mg Q6H PRN PO PAIN AND OR ELEVATED TEMP Last administered on 05/18/17 05:57; Admin Dose 650 MG; Start 04/23/17 at 20:30 Lactobacillus Acidophilus/ Rhamnosus (Culturelle) 1 cap BID PO Last administered on 05/22/17 08:59; Admin Dose 1 CAP; Start 04/24/17 at 11:30 Docusate Sodium (Colace) 100 mg BID PO Last administered on 05/22/17 09:00; Admin Dose 100 MG; Start 04/30/17 at 21:00 Furosemide (Lasix) 20 mg DAILY PO Last administered on 05/21/17 08:34; Admin Dose 20 MG; Start 05/19/17 at 09:00; Status Future Hold Metoprolol Tartrate (Lopressor) 12.5 mg BID PO Last administered on 05/21/17 21:10; Admin Dose 12.5 MG; Start 05/21/17 at 21:00 Potassium Chloride (Klor-Con 20) 20 meq QAM PO Last administered on 05/22/17 09:00; Admin Dose 20 MEQ; Start 05/22/17 at 09:00 WINDY EMERY May 22, 2017 20:09
--- NOTE | 2017-05-24 16:28 | DS ---
Date/Time of Note Date/Time of Note DATE: 05/24/17 TIME: 16:24 Discharge Summary Admission/Discharge Info Admit Date/Time Apr 13, 2017 at 19:51 Discharge Date/Time May 22, 2017 at 21:10 Patient Condition: Stable Hx of Present Illness The patient is a 65-year-old female well known to me from previous admission has history of rectal cancer, sp excision of rectal mass in 2016, low anterior resection of rectal cancer. The patient is admitted with c/o chest pain- none at present. The patient denies any chest pain and is breathing comfortably. No cough, no leg pain or leg edema. No report of any focal weakness. Family at bed side- all Qs ANSWERED. REVIEW OF SYSTEMS: The patient, other than postoperative pain, had a negative review of systems. ALLERGIES: 1. CODEINE. 2. HYDROCODONE. 3. NAPROXEN. 4. TRAMADOL. 5. VANCOMYCIN. Hospital Course - Bilateral pleural effusions right more than left, status post right thoracentesis 04/20. S/p right chest tube insertion on 04/[address] Jackson, vascular surgery. S/p right thoracentesis 04/26. S/P Right VATS decortication on 05/07. CT removed 05/12. - Acute respiratory failure secondary to #1, resolved. Dr. Damico is following in pulmonology consultation. - Severe sepsis 2/2 to liver abscess, resolved. Continue antibiotics per ID. is following in infection disease consultation - Liver abscesses, s/p CT guided drainage 04/15/2017, s/p CT guided percutaneous drainage of liver abscess 04/23, status post CT-guided liver abscess drainage . Drains d/cyn now. Continue Unasyn for until May [address] of the abdomen and pelvis in 1-2 weeks. - Normocytic anemia requiring blood transfusion. - Hx of rectal CA s/p Low anterior resection 08/29/2016 Home Meds Reported Medications Ipratropium Amberson (Ipratropium Amberson) 15 Ml [place], 15 ML NS BID, SPRAY 04/13/17 Azelastine Hcl* (Azelastine Hcl*) 137 Mcg/0.137 Ml [place].pump, 1 SPRAY NASAL BID , #1 EA TO EACH NOSTRIL 04/13/17 Follow-up Plan BMP, CBC in 1-2 weeks, CT scan of abd/pelvis in 1-2 weeks. Primary Care Provider Osvaldo Piper Pending Labs Laboratory Tests Test 05/24/17 14:28 Lab Scanned Report BLOOD [id number] WINDY EMERY May 24, 2017 16:28
== END 2017-05-22 21:10 | DRG 853 ==
LOC: E/R 13:46 → MS4 19:51 → ICU 04-14 09:47 → PP2 04-17 16:11 → ICU 04-23 21:18 → MS4 04-25 18:49 → ICU 05-07 10:35 → TEL 05-08 18:50 → MS1 05-19 22:14
PROVIDERS: ADMIT Internal Medicine; ATTEND Internal Medicine
PROC: 0W993ZX Drainage of Right Pleural Cavity, Percutaneous Approach, Diagnostic (ICD-10-PCS; 2017-04-20)
PROC: 0W993ZX Drainage of Right Pleural Cavity, Percutaneous Approach, Diagnostic (ICD-10-PCS; 2017-04-26)
PROC: 0F9030Z Drainage of Liver with Drainage Device, Percutaneous Approach (ICD-10-PCS; 2017-04-27)
PROC: 0BJK4ZZ Inspection of Right Lung, Percutaneous Endoscopic Approach (ICD-10-PCS; 2017-05-07)
PROC: 0BCK0ZZ Extirpation of Matter from Right Lung, Open Approach (ICD-10-PCS; principal; 2017-05-07 10:30)
DX: A41.9 Sepsis, unspecified organism (principal); K75.0 Abscess of liver; J96.00 Acute respiratory failure, unspecified whether with hypoxia or hypercapnia; E43 Unspecified severe protein-calorie malnutrition; J90 Pleural effusion, not elsewhere classified; J18.9 Pneumonia, unspecified organism; R64 Cachexia; I95.9 Hypotension, unspecified; D68.9 Coagulation defect, unspecified; E87.1 Hypo-osmolality and hyponatremia; E83.42 Hypomagnesemia; Z68.1 Body mass index [BMI] 19.9 or less, adult; N39.0 Urinary tract infection, site not specified; J98.11 Atelectasis; E87.6 Hypokalemia; B95.8 Unspecified staphylococcus as the cause of diseases classified elsewhere; R65.20 Severe sepsis without septic shock; R73.03 Prediabetes; R19.7 Diarrhea, unspecified; R91.8 Other nonspecific abnormal finding of lung field; R16.0 Hepatomegaly, not elsewhere classified; D64.9 Anemia, unspecified; Z88.6 Allergy status to analgesic agent; Z88.3 Allergy status to other anti-infective agents; Z85.038 Personal history of other malignant neoplasm of large intestine; Z85.048 Personal history of other malignant neoplasm of rectum, rectosigmoid junction, and anus
CPT/HCPCS: 36415; 36430; 36600; 71010; 71250; 71260; 74000; 74160; 74177; 74181; 75989; 76942; 77012; 80048; 80053; 80061; 81001; 81003; 82378; 82533; 82550; 82553; 82803; 82945; 82962; 83605; 83690; 83735; 84100; 84145; 84157; 84484; 85014; 85018; 85025; 85378; 85610; 85651; 85730; 86703; 86850; 86900; 86901; 86920; 87040; 87070; 87075; 87081; 87086; 87102; 87116; 88307; 93005; 93306; 96374; 97110; 97116; 97162; 97164; 97530; J1940; C9113; J0295; J0690; J1100; J1170; J1644; J1650; J1815; J2250; J2270; J2370; J2405; J2543; J2710; J2765; J2795; J3010; J3475; J3480; J7030; J7040; J7042; J7060; P9016; P9059; Q9967

== ENCOUNTER → 2017-05-29 | Outpatient (CLI) | payer MEDICARE, OTHER ==
[~2017-05-29] MED LIST changes: +AZEL137S9 NASAL; -DOCU-144 PO; -FER325 PO; +IODIXANOL LOCM 100 ML BTL ONE; +IPRA15SP NS; -OXYC-279 PO; +SOD CHLORIDE 0.9% 100 ML ONE
--- NOTE | 2017-05-29 12:05 | RADRPT ---
PROCEDURE: CT abdomen and pelvis with contrast. CLINICAL INDICATION: Hepatic abscess TECHNIQUE: CT scan of the abdomen and pelvis without oral contrast was performed and is reconstruc eleni at 2.5 mm contiguous axial intervals from the dome of the diaphragm to the inferior pubic rami.. The patient was scanned with intravenous contrast. Sagittal and coronal reformatted images were o btained from the axial source images. The calculated radiation dose measures 196 mGy centimeters. Th e CTDI measures 4.0 mGy. Individualized dose optimization technique was used for the performance of this exam. This included 1. Automated exposure control. 2. Adjustment of the mA and / or kV according to the patient's size. 3. Use of iterative reconstructed technique. COMPARISON: CT abdomen pelvis May 15, 2017 FINDINGS: There is atelectasis at the right lung base with small effusion. No alveolar pneumonia is seen. Surg ical betty are present on the inferolateral anterior right chest. There is elevation of the right hemidiaphragm. The liver is of normal size and contour. There has been interval removal of the drainage catheter in the central right lobe of the liver. There is heterogeneous reduced enhancement in the medial segme nt of the left lobe. The middle hepatic vein is not opacified. Noted is an 8 mm hypodense collection on the superior aspect of the anterior segment of the right lobe and a 15 mm collection on the ante rior aspect of the medial segment of the left lobe. These are compatible with small abscesses. No so lid masses seen. No gallstones are visualized. No splenic, adrenal or pancreatic abnormalities pr esent. Kidneys are of normal size and contour. No hydronephrosis, calculus or solid masses seen. 1 cm ri ght renal cyst is seen. Ureters are of normal course and caliber with no stone. No bladder mass or stone is present. Uterus is been removed. No adnexal mass is identified. There is no aneurysm. No adenopathy is present. No bowel mass or obstruction is present. There is an anastomosis at the junction of the sigmoid an d the rectum. The appendix is normal. No phlegmon, ascites or pneumoperitoneum is visualized. There is a left inguinal hernia containing fat. The osseous structures are intact. IMPRESSION: Interval removal of hepatic drain. Partial resolution multi focal abscesses. Question thrombosis mid dle hepatic vein. Right basilar atelectasis with small effusion. Right renal cyst. Status post resection distal colon. .Roque Ballesteros MD, MD Date Time Electronically viewed and signed by .Roque Ballesteros MD, MD on 05/29/2017 12:05 .A/
== END | disposition home or self-care (01) ==
LOC: C/S 09:32
PROVIDERS: ATTEND Internal Medicine
DX: K75.0 Abscess of liver (principal); K21.9 Gastro-esophageal reflux disease without esophagitis
CPT/HCPCS: 74177; Q9967

== ENCOUNTER → 2017-07-15 | Outpatient (CLI) | payer MEDICARE, OTHER ==
[~2017-07-15] MED LIST changes: -IODIXANOL LOCM 100 ML BTL ONE; -SOD CHLORIDE 0.9% 100 ML ONE
[2017-07-15 11:47] LABS: BASOPHIL # 0.1 10^3/ul (0.0-0.1); BASOPHILS % 0.8 % (0.0-2.0); EOSINOPHILS # 0.2 10^3/ul (0.0-0.5); EOSINOPHILS % 3.4 % (0.0-7.0); HEMATOCRIT 33.2 % (37.0-47.0); HEMOGLOBIN 11.2 g/dl (12.0-16.0); LYMPHOCYTES # 2.4 10^3/ul (0.8-2.9); LYMPHOCYTES % 40.3 % (15.0-51.0); MEAN CORPUSCULAR HEMOGLOBIN 32.3 pg (29.0-33.0); MEAN CORPUSCULAR HGB CONC 33.7 g/dl (32.0-37.0); MEAN CORPUSCULAR VOLUME 95.7 fl (82.0-101.0); MEAN PLATELET VOLUME 7.9 fl (7.4-10.4); MONOCYTE # 0.5 10^3/ul (0.3-0.9); MONOCYTES % 8.8 % (0.0-11.0); NEUTROPHIL # 2.8 10^3/ul (1.6-7.5); NEUTROPHILS % 46.5 % (39.0-77.0); PLATELET COUNT 264 10^3/UL (140-415); RED BLOOD COUNT 3.47 10^6/ul (4.20-5.40); RED CELL DISTRIBUTION WIDTH 13.6 % (11.5-14.5); WHITE BLOOD COUNT 5.9 10^3/ul (4.8-10.8)
[2017-07-15 12:09] LABS: ALBUMIN 4.1 g/dl (3.3-4.9); BILIRUBIN,INDIRECT 0.7 mg/dl (0-1.1); BILIRUBIN,TOTAL 0.7 mg/dl (0.2-1.3); CREATININE 0.52 mg/dl (0.44-1.00); POTASSIUM 4.3 mmol/L (3.5-5.1); TOTAL PROTEIN 8.2 g/dl (6.1-8.1)
== END | disposition home or self-care (01) ==
LOC: LAB 11:20
PROVIDERS: ATTEND Specialist
DX: K75.0 Abscess of liver (principal)
CPT/HCPCS: 80053; 85025

== ENCOUNTER 2017-08-03 12:39 | Emergency (ER) | END 2017-08-03 16:20 | disposition home or self-care (01) ==

== ENCOUNTER 2018-02-22 11:29 | Inpatient (IN) | END 2018-02-24 17:25 | disposition home or self-care (01) | DRG 330 ==

== ENCOUNTER 2019-03-08 23:19 | Emergency (ER) | payer MEDICARE, OTHER ==
[~2019-03-08] VITALS: Ht 160 cm; Wt 48.3 kg
[2019-03-08 23:27] VITALS: BP 146/72; PULSE 69; RESP 19; Ht 160 cm; Wt 48.3 kg
--- NOTE | 2019-03-09 01:41 | ERD ---
ER Documentation Chief Complaint Chief Complaint LACERATION TO RT THUMB W/ TUNA CAN 3HRS AGO HPI 68-year-old female with no significant past medical history presents to the emergency department complaining of superficial laceration to the right thumb just prior to arrival on a tuna can. This was accidental. She reports mild associated pain which is constant and worse with movement of the hand. She did clean out the wound. Her tetanus is up-to-date. She denies any other symptoms or injuries currently. ROS All systems reviewed and are negative except as per history of present illness. Medications Home Meds No Active Prescriptions or Reported Meds Allergies Allergies: Coded Allergies: vancomycin (Verified Allergy, Severe, TACHYCARDIA AND SWELLING, 02/22/18) hydrocodone (Verified Allergy, Intermediate, 02/22/18) NAUSEA tramadol (Verified Allergy, Intermediate, 02/22/18) NAUSEA codeine (Verified Allergy, Mild, DIAPHORESIS, 02/22/18) naproxen (Verified Allergy, Unknown, REDNESS, DIAPHORESIS, 02/22/18) PMhx/Soc History of Surgery: Yes Anesthesia Reaction: No Hx 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 Disorder: No Hx Respiratory Disorders: No Hx Cardiac Disorders: No Hx Psychiatric Problems: No Hx Miscellaneous Medical Probl: No Hx Alcohol Use: No Hx Substance Use: No Hx Tobacco Use: No Smoking Status: Never smoker FmHx Family History: No diabetes Physical Exam Vitals Vital Signs Date Temp Pulse Resp B/P (MAP) Pulse Ox O2 O2 Flow FiO2 Time Delivery Rate 03/08/19 97.3 69 19 146/72 99 23:27 (96) Physical Exam Const: No acute distress Head: Atraumatic Eyes: Normal Conjunctiva ENT: Normal External Ears, Nose and Mouth. Neck: Full range of motion. No meningismus. Resp: Clear to auscultation bilaterally Cardio: Regular rate and rhythm, no murmurs Abd: Soft, non tender, non distended. Normal bowel sounds Skin: Very superficial 3 cm laceration noted to the ventral surface of the right thumb. No active bleeding or obvious foreign body. Back: No midline or flank tenderness Ext: No cyanosis, or edema Neur: Awake and alert Psych: Normal Mood and Affect Procedures/MDM 68-year-old female presents to the emergency department for superficial laceration of the right thumb. The patient was given the full risks, benefits, alternatives to laceration repair with Dermabond and she gave verbal consent. Laceration Repair by me: Anesthesia: None Location: Right thumb on the ventral surface. Tendon/Joint/Nerves: No injury Foreign body: None detected after copious irrigation and exploration Technique: Tissue adhesive Complexity: No subcutaneous sutures/mucosal repair/edge excision Post Closure Length: 3 cm Patient's bleeding was easily controlled in the department and there is no indication of anemia. No evidence of compartment syndrome, neurologic injury, vascular injury, open joint, tendon laceration, or foreign body. Patient is appropriate for outpatient follow up. 48 hour wound check. Scar minimization instructions given. Departure Diagnosis: Primary Impression: Laceration of right thumb Condition: Fair Patient Instructions: Laceration, Extremity (Skin Glue) Additional Instructions: Regrese a estas instalaciones dentro de DOS FLETCHER para un examen de seguimiento.Regrese antes si oneill condicin se empeora. MONICA DENNIS PA-C Mar 09, 2019 01:41
== END 2019-03-09 00:47 | disposition home or self-care (01) ==
LOC: FTE 23:19
DX: S61.011A Laceration without foreign body of right thumb without damage to nail, initial encounter (principal); W26.8XXA Contact with other sharp object(s), not elsewhere classified, initial encounter; Y92.9 Unspecified place or not applicable